=== PATIENT | female | born 1970 | race Hispanic/Latino ===

== ENCOUNTER 2017-08-02 13:57 | Inpatient (IN) | payer BC, SELFPAY ==
[2017-08-02] MEDS ORDERED: NA CHLORIDE 0.9% 1,000 ML ONE ×2 (15:51→17:16)
[2017-08-02] MEDS ORDERED: NA CHLORIDE 0.9% 250 ML ONE (15:51)
--- NOTE | 2017-08-02 16:30 | RAD REPORT ---
EXAM DESCRIPTION: Gustavo Single View08/02/2017 4:16 pm CLINICAL HISTORY: fever COMPARISON: May 2017 FINDINGS: The lungs appear clear of acute infiltrate. The heart is normal size IMPRESSION: No acute abnormalities displayed
[2017-08-02 16:52] LABS: Absolute Lymphocytes (CBC) 0.9 K/uL (0.7-4.9); Absolute Monocytes 0.8 K/uL (0.1-1.3); Absolute Neutrophil 5.8 K/uL (1.8-8.0); Basophils % 0.2 % (0-1.3); Eosinophils % 0.2 % (0-4.4); Hematocrit 38.8 % (36.0-45.0); Lymphocytes % 12.4 % (15.3-44.8); MCH 29.7 pg (27.0-35.0); MPV 7.9 fL (7.6-11.3); Monocytes % 10.1 % (3.3-12.3); RBC Red Blood Cell Count 4.41 M/uL (3.86-4.86)
[2017-08-02 16:55] LABS: Urine Blood 2+ (NEG); Urine Glucose 2+ (NEG); Urine Protein 1+ (NEG); Urine Specific Gravity 1.015 (1.005-1.030); Urine pH 5.5 (5.0-7.0)
[2017-08-02 16:56] LABS: Potassium 3.8 mEq/L (3.6-5.0)
[2017-08-02 17:04] LABS: Albumin 3.7 g/dL (3.2-5.5); Bilirubin Direct 0.1 mg/dL (0-0.2); Bilirubin Total 1.1 mg/dL (0.3-1.2); C-Reactive Protein 162.5 mg/L (<10.0); Protein, Total 7.7 g/dL (6.0-8.3)
[2017-08-02 17:05] LABS: Urine Bacteria >50 /HPF (<20); Urine Culture Reflex Order NOT NEEDED
[2017-08-02] MEDS ORDERED: ACETAMINOPHEN 500 MG TAB ONE (17:21)
[2017-08-02] MEDS ORDERED: CEFTRIAXONE/SWI 1gm 2 GM/20 ML SYR ONE (17:21)
--- NOTE | 2017-08-02 17:22 | EDPHYS ---
Physician Documentation [facility] Name: Alyson Mayfield Age: 47 yrs Sex: Female : 1970 Arrival Date: 08/02/2017 Time: 14:00 Bed 27 Private MD: Jeet Manley ED Physician Mick Gallardo HPI: 08/02 16:09 This 47 yrs old Female presents to ER via Ambulatory with complaints of jr8 Abdominal Pain, Back Pain, Arm Pain. 16:09 Onset: The symptoms/episode began/occurred gradually, 2 day(s) ago. The symptoms jr8 radiate to back. Associated signs and symptoms: Pertinent positives: constipation, fever, nausea, body aches and chills. The symptoms are described as intermittent. Modifying factors: The symptoms are alleviated by nothing, the symptoms are aggravated by nothing. Severity of pain: At its worst the pain was moderate in the emergency department the pain is unchanged. The patient has not experienced similar symptoms in the past. The patient has not recently seen a physician. Patient stated that she had gone to [place] over the weekend. While there started to have body aches, chills, fevers, abdominal discomfort. Has not gotten any better. Recent change in diabetic medication. Stated that she was upped to 500 BID of Metformin . 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 - Social history:: Smoking status: Patient/guardian denies using tobacco, Patient uses alcohol, but reports only rare drinking. - Ebola Screening: : No symptoms or risks identified at this time. ROS: 16:09 Eyes: Negative for injury, pain, redness, and discharge, ENT: Negative for injury, jr8 pain, and discharge, Neck: Negative for injury, pain, and swelling, Cardiovascular: Negative for chest pain, palpitations, and edema, Back: Negative for injury and pain, MS/Extremity: Negative for injury and deformity, Skin: Negative for injury, rash, and discoloration, Neuro: Negative for headache, weakness, numbness, tingling, and seizure. 16:09 Constitutional: Positive for body aches, chills, fever, malaise, poor PO intake. 16:09 Abdomen/GI: Positive for abdominal pain, nausea, constipation, abdominal cramps, Negative for hematemesis, black/tarry stool, rectal pain, rectal bleeding, bowel incontinence, flatulence. Exam: 16:09 Head/Face: Normocephalic, atraumatic. Eyes: Pupils equal round and reactive to light, jr8 extra-ocular motions intact. Lids and lashes normal. Conjunctiva and sclera are non-icteric and not injected. Cornea within normal limits. Periorbital areas with no swelling, redness, or edema. ENT: Nares patent. No nasal discharge, no septal abnormalities noted. Tympanic membranes are normal and external auditory canals are clear. Oropharynx with no redness, swelling, or masses, exudates, or evidence of obstruction, uvula midline. Mucous membranes moist. Neck: Trachea midline, no thyromegaly or masses palpated, and no cervical lymphadenopathy. Supple, full range of motion without nuchal rigidity, or vertebral point tenderness. No Meningismus. Respiratory: Lungs have equal breath sounds bilaterally, clear to auscultation and percussion. No rales, rhonchi or wheezes noted. No increased work of breathing, no retractions or nasal flaring. Back: No spinal tenderness. No costovertebral tenderness. Full range of motion. Skin: Warm, dry with normal turgor. Normal color with no rashes, no lesions, and no evidence of cellulitis. MS/ Extremity: Pulses equal, no cyanosis. Neurovascular intact. Full, normal range of motion. Neuro: Awake and alert, GCS 15, oriented to person, place, time, and situation. Cranial nerves II-XII grossly intact. Motor strength 5/5 in all extremities. Sensory grossly intact. Cerebellar exam normal. Normal gait. 16:09 Cardiovascular: Rate: tachycardic, Rhythm: regular, Pulses: Pulses are 2+ in right radial artery and left radial artery. Heart sounds: normal, normal S1and S2, no S3 or S4, no murmur, no rub, no gallop, Edema: is not appreciated, JVD: is not appreciated. 16:09 Abdomen/GI: Inspection: abdomen appears normal, Bowel sounds: active, all quadrants, Palpation: soft, in all quadrants, moderate abdominal tenderness, in the abdomen diffusely, mass, is not appreciated, rebound tenderness, is not appreciated, voluntary guarding, is not appreciated, involuntary guarding, is not appreciated, no appreciated organomegaly, Indicators: McBurney's point is not tender, Keys's sign is negative, Rovsing's sign is negative, Liver: no appreciated palpable abnormalities, tenderness, is not appreciated. Vital Signs: 14:11 BP 130 / 78; Pulse 109; Resp 20; Temp 99(TE); Pulse Ox 97% on R/A; Weight 58.97 kg (R); sv Height 5 ft. 2 in. (157.48 cm) (R); Pain 8/10; 17:03 BP 133 / 72; Pulse 103; Resp 20; Temp 101.4(O); Pulse Ox 100% on R/A; mb3 18:06 BP 132 / 79; Pulse 91; Resp 20; Temp 99.1(O); Pulse Ox 99% on R/A; mb3 19:46 BP 108 / 62; Pulse 87; Resp 18; Pulse Ox 96% on R/A; mb3 20:51 BP 117 / 70; Pulse 87; Resp 16; Temp 98.8(O); Pulse Ox 99% on R/A; mb3 14:11 Body Mass Index 23.78 (58.97 kg, 157.48 cm) sv MDM: 15:10 Patient medically screened. jr8 17:18 Data reviewed: vital signs, nurses notes, lab test result(s), EKG, radiologic studies, jr CT scan, plain films, and as a result, I will admit patient. Data interpreted: Pulse oximetry: on room air is 100 %. Interpretation: normal. Counseling: I had a detailed discussion with the patient and/or guardian regarding: the historical points, exam findings, and any diagnostic results supporting the discharge/admit diagnosis, lab results, radiology results, the need for further work-up and treatment in the hospital. Physician consultation: Gilbert Bautista MD was called at 17:19, was contacted at 17:19, regarding admission, to the telemetry unit. consult, patient's condition, and will see patient. ED course: Patient initially based on vitals did not meet sepsis. Patient now with fever and tachycardia. Source of infection identified as UTI. Elevated ESR and CRP. Meets SIRS and urosepsis. Will treat as such and admit . 08/02 15:05 Order name: Urine Culture formerly [facility] 08/02 15:05 Order name: Urine Microscopic Only formerly [facility] 08/02 15:06 Order name: Urine Culture [facility] 08/02 15:06 Order name: Urine Microscopic Only; Complete Time: 17:06 [facility] 08/02 15:39 Order name: Basic Metabolic Panel; Complete Time: 17:05 [facility] 08/02 15:39 Order name: Blood Culture Adult (2) [facility] 08/02 15:39 Order name: BNP; Complete Time: 17: [facility] 08/02 15:39 Order name: C-Reactive Protein; Complete Time: 17: [facility] 08/02 15:39 Order name: CBC with Diff; Complete Time: 17:11 [facility] 08/02 15:39 Order name: CPK; Complete Time: 17:05 [facility] 08/02 15:39 Order name: Lactate; Complete Time: 17: [facility] 08/02 15:39 Order name: LFT's; Complete Time: 17: [facility] 08/02 15:39 Order name: Lipase; Complete Time: 17: [facility] 08/02 15:39 Order name: Procalcitonin; Complete Time: 17:22 [facility] 08/02 15:05 Order name: Urine Dipstick-Ancillary (obtain specimen); Complete Time: 16:59 [facility] 08/02 15:39 Order name: Protime (+inr); Complete Time: 18:02 [facility] 08/02 15:39 Order name: Ptt, Activated; Complete Time: 18:02 [facility] 08/02 15:39 Order name: Sed Rate; Complete Time: 17:11 [facility] 08/02 15:39 Order name: Chest Single View XRAY; Complete Time: 16:30 [facility] 08/02 15:39 Order name: Accucheck [facility] 08/02 15:39 Order name: Cardiac monitoring; Complete Time: 16:57 [facility] 08/02 15:39 Order name: EKG - Nurse/Tech; Complete Time: 16:57 [facility] 08/02 15:39 Order name: IV Saline Lock - Large Bore; Complete Time: 16:58 08/02 15:39 Order name: [place] Screen Profile; Complete Time: 17:05 08/02 16:42 Order name: Urine Dipstick--Ancillary (enter results); Complete Time: 17:05 ag 08/02 16:42 Order name: Urine --Ancillary (enter results); Complete Time: 17:05 ag 08/02 17:06 Order name: CT Abd/Pelvis - W/Contrast; Complete Time: 18:02 08/02 15:39 Order name: Labs collected and sent; Complete Time: 16:58 08/02 15:39 Order name: O2 Per Protocol; Complete Time: 16:58 08/02 15:39 Order name: O2 Sat Monitoring; Complete Time: Administered Medications: 16:33 Drug: NS 0.9% (20 ml/kg) 20 ml/kg Route: IV; Rate: 1 bolus; Site: right antecubital; mb3 19:49 Follow up: Response: No adverse reaction; IV Status: Completed infusion; IV Intake: mb3 2000ml 17:30 Drug: Tylenol 1000 mg Route: PO; mb3 19:49 Follow up: Response: No adverse reaction; Temperature is decreased mb3 18:01 Drug: Rocephin - (cefTRIAXone) 2 grams Route: IVPB; Infused Over: 30 mins; Site: right mb3 antecubital; 19:48 Follow up: Response: No adverse reaction; IV Status: Completed infusion; IV Intake: mb3 100ml Disposition: 08/03 07:25 Co-signature as Attending Physician, Mick Gallardo MD I agree with the assessment and radu plan of care. Disposition: 08/02/17 17:22 Hospitalization ordered by Gilbert Bautista for Inpatient Admission. Preliminary diagnosis are Urosepsis, Dehydration, Acute tubulo-interstitial nephritis. - Bed requested for Telemetry/MedSurg (Inpatient). - Status is Inpatient Admission. mb3 - Condition is Stable. - Problem is new. - Symptoms have improved. UTI on Admission? Yes Signatures: Dispatcher [employer] Nicki Martinez RN RN sv Woody, Diana, RN RN dw Anderson, Corey, MD MD cha Therrien, Shelly, POST HOLE DIGGER-C POST HOLE DIGGER-Csnw Ethan Arenas PA PA jr8 Mendy Shah Zaki Lucas, RN RN mb3 Corrections: (The following items were deleted from the chart) 08/02 18:02 17:22 Hospitalization Ordered by Gilbert Bautista MD for Inpatient Admission. Preliminary jr8 diagnosis is Urosepsis; Dehydration. Bed requested for Telemetry/MedSurg (Inpatient). Status is Inpatient Admission. Condition is Stable. Problem is new. Symptoms have improved. UTI on Admission? Yes. jr8 19:49 18:02 08/02/2017 17:22 Hospitalization Ordered by Gilbert Bautista MD for Inpatient dw Admission. Preliminary diagnosis is Urosepsis; Dehydration; Acute tubulo-interstitial nephritis. Bed requested for Telemetry/MedSurg (Inpatient). Status is Inpatient Admission. Condition is Stable. Problem is new. Symptoms have improved. UTI on Admission? Yes. [facility] 19:50 19:49 08/02/2017 17:22 Hospitalization Ordered by Gilbert Bautista MD for Inpatient eb Admission. Preliminary diagnosis is Urosepsis; Dehydration; Acute tubulo-interstitial nephritis. Bed requested for Telemetry/MedSurg (Inpatient). Status is Inpatient Admission. Condition is Stable. Problem is new. Symptoms have improved. UTI on Admission? Yes. dw 21:38 19:50 08/02/2017 17:22 Hospitalization Ordered by Gilbert Bautista MD for Inpatient mb3 Admission. Preliminary diagnosis is Urosepsis; Dehydration; Acute tubulo-interstitial nephritis. Bed requested for Telemetry/MedSurg (Inpatient). Status is Inpatient Admission. Condition is Stable. Problem is new. Symptoms have improved. UTI on Admission? Yes. eb
--- NOTE | 2017-08-02 17:22 | ER ---
Nurse's Notes [facility] Name: Alyson Mayfield Age: 47 yrs Sex: Female : 1970 Arrival Date: 08/02/2017 Time: 14:00 Bed 27 Private MD: Jeet Manley Diagnosis: Urosepsis;Dehydration;Acute tubulo-interstitial nephritis Presentation: 08/02 14:06 Presenting complaint: Patient states: abd pain, back pain, bilateral arm numbness x 3 sv days. c/o nausea, body aches, no appetite. Recently changed up DM pills. Transition of care: patient was not received from another setting of care. Onset of symptoms was July 30, 2017. Care prior to arrival: None. 14:06 Method Of Arrival: Ambulatory sv 14:06 Acuity: KLAUS 3 sv 14:11 Risk Assessment: Do you want to hurt yourself or someone else? Patient reports no sv desire to harm self or others. Initial Sepsis Screen: Does the patient meet any 2 criteria? No. Patient's initial sepsis screen is negative. Does the patient have a suspected source of infection? No. Patient's initial sepsis screen is negative. 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 - Social history:: Smoking status: Patient/guardian denies using tobacco, Patient uses alcohol, but reports only rare drinking. - Ebola Screening: : No symptoms or risks identified at this time. Screenin:02 Abuse screen: Denies threats or abuse. Nutritional screening: No deficits noted. mb3 Tuberculosis screening: No symptoms or risk factors identified. Fall Risk None identified. Assessment: 17:00 General: Appears distressed, uncomfortable, well groomed, Behavior is calm, mb3 cooperative, appropriate for age. Pain: Complains of pain in abdomen, low back area, left low back and right low back. Neuro: Level of Consciousness is awake, alert, obeys commands, Oriented to person, place, time, situation, Appropriate for age. Cardiovascular: No deficits noted. Heart tones present Capillary refill < 3 seconds Patient's skin is warm and dry. Pulses are all present. Respiratory: Airway is patent Respiratory effort is even, unlabored, Respiratory pattern is regular, symmetrical, Breath sounds are clear bilaterally. GI: Bowel sounds present X 4 quads. Abd is soft Abdomen is tender to palpation in right lower quadrant and left lower quadrant. : Urine is cloudy. Musculoskeletal: No signs and/or symptoms reported regarding the musculoskeletal system. 19:47 Reassessment: Patient appears in no apparent distress at this time. No changes from mb3 previously documented assessment. Patient and/or family updated on plan of care and expected duration. Pain level reassessed. Patient is alert, oriented x 3, equal unlabored respirations, skin warm/dry/pink. Patient states feeling better. Patient states symptoms have improved. Vital Signs: 14:11 BP 130 / 78; Pulse 109; Resp 20; Temp 99(TE); Pulse Ox 97% on R/A; Weight 58.97 kg (R); sv Height 5 ft. 2 in. (157.48 cm) (R); Pain 8/10; 17:03 BP 133 / 72; Pulse 103; Resp 20; Temp 101.4(O); Pulse Ox 100% on R/A; mb3 18:06 BP 132 / 79; Pulse 91; Resp 20; Temp 99.1(O); Pulse Ox 99% on R/A; mb3 19:46 BP 108 / 62; Pulse 87; Resp 18; Pulse Ox 96% on R/A; mb3 20:51 BP 117 / 70; Pulse 87; Resp 16; Temp 98.8(O); Pulse Ox 99% on R/A; mb3 14:11 Body Mass Index 23.78 (58.97 kg, 157.48 cm) sv ED Course: 14:00 Patient arrived in ED. mr 14:00 None, None is Private Physician. mr 14:01 Jeet Manley is Private Physician. mr 14:09 Triage completed. sv 14:11 Arm band placed on left wrist. sv 15:10 Ethan Arenas PA is PHCP. jr8 15:10 Mick Gallardo MD is Attending Physician. jr8 15:12 LucasZaki weber RN is Primary Nurse. mb3 16:13 X-ray completed. Portable x-ray completed in exam room. Patient tolerated procedure kc2 well. 16:14 Chest Single View XRAY In Process Unspecified. EDMS 16:33 Inserted saline lock: 20 gauge in right antecubital area, using aseptic technique. mb3 Blood collected. 16:59 Urine Culture Sent. mb3 16:59 Urine Microscopic Only Sent. mb3 17:03 Patient has correct armband on for positive identification. Bed in low position. Call mb3 light in reach. Side rails up X 1. Pulse ox on. NIBP on. 17:21 Gilbert Bautista MD is Hospitalizing Provider. jr8 17:34 CT Abd/Pelvis - W/Contrast In Process Unspecified. EDMS 20:53 No provider procedures requiring assistance completed. Patient admitted, IV remains in mb3 place. Administered Medications: 16:33 Drug: NS 0.9% (20 ml/kg) 20 ml/kg Route: IV; Rate: 1 bolus; Site: right antecubital; mb3 19:49 Follow up: Response: No adverse reaction; IV Status: Completed infusion; IV Intake: mb3 2000ml 17:30 Drug: Tylenol 1000 mg Route: PO; mb3 19:49 Follow up: Response: No adverse reaction; Temperature is decreased mb3 18:01 Drug: Rocephin - (cefTRIAXone) 2 grams Route: IVPB; Infused Over: 30 mins; Site: right mb3 antecubital; 19:48 Follow up: Response: No adverse reaction; IV Status: Completed infusion; IV Intake: mb3 100ml Intake: 19:48 IV: 100ml; Total: 100ml. mb3 19:49 IV: 2000ml; Total: 2100ml. mb3 Outcome: 17:22 Decision to Hospitalize by Provider. jr8 20:52 Admitted to Tele accompanied by tech, via wheelchair, room 416, with chart, Report mb3 called to Nahomi RIVAS 20:52 Condition: stable 20:52 Instructed on the need for admit. 21:38 Patient left the ED. mb3 Signatures: Dispatcher [employer] EDNicki Chris RN RN sv Rivera, Maria mr Ethan Arenas, PA DAOMN jr8 Keyla Andrew kc2 Zaki Lucas RN RN mb3 Corrections: (The following items were deleted from the chart) 14:11 14:06 Presenting complaint: Patient states: abd pain, back pain, bilateral arm numbness sv x 3 days. c/o nausea, no appetite. Recently changed up DM pills. sv
[2017-08-02 17:33] LABS: Protime INR 0.97
--- NOTE | 2017-08-02 17:53 | RAD REPORT ---
EXAM DESCRIPTION: CT - Abdomen Pelvis W Contrast - 08/02/2017 5:34 pm CLINICAL HISTORY: Abdominal pain, back pain COMPARISON: May 2017 TECHNIQUE: Biphasic, helical CT imaging of the abdomen and pelvis was performed following 100 ml non -ionic IV contrast. No oral contrast. All CT scans are performed using dose optimization technique as appropriate and may include automated exposure control or mA/KV adjustment according to patient size. FINDINGS: No suspicious findings in the lung bases. The liver, spleen, and pancreas show no suspicious findings. Cholecystectomy clips are present. No ab normal biliary tree dilatation. Right renal parenchymal enhancement is somewhat heterogeneous. Right renal function is delayed slight ly relative to the left. There is no left-sided hydronephrosis. The mild left-sided dilatation with w all thickening and enhancement has resolved. Right-sided dilatation with wall thickening and mild enh ancement has not changed. There remains no obstructing calculus. No gross evidence for a mass. No myrna dder calculus seen. Lepe of the contracted urinary bladder mildly prominent, similar to prior imagin g. Uterus and ovaries are unremarkable. No gastric dilatation or true gastric wall thickening. No dilated large or small bowel loops. Cecum i s low lying. Appendicitis not suspected. No free air or free fluid. No hernia, mass or bulky lympha denopathy. No adrenal abnormality. No suspicious bony findings. IMPRESSION: Right-sided [id number] hydronephrosis similar to the May examination. Right citlali al function is delayed in the enhancement pattern is heterogeneous. Finding is concerning for right-sided pyelonephritis. The dilatation could be due to blood or inflamm atory debris within the ureter. No obstructing calculus. Urinary bladder wall is slightly thickened and enhancing. This could indicate cystitis.
[2017-08-02] MEDS ORDERED: D50W 25 GM/50 ML SYRINGE IV PRN (18:07)
[2017-08-02] MEDS ORDERED: GLUCAGON 1 MG/VIAL IM PRN (18:07)
[2017-08-02 21:36] VITALS: BMI 22.9
[2017-08-02] MEDS ORDERED: PANTOPRAZOLE 40MG TABLET PO ONE (21:51)
[2017-08-02] MEDS: ONDANSETRON 4 MG/2 ML VIAL IV PRN (22:22)
[2017-08-02] MEDS: NA CHLORIDE 0.9% 1,000 ML IV SCH (22:23)
[2017-08-02] MEDS: ENOXAPARIN 40 MG/0.4 ML SQ SCH (22:23)
[2017-08-02] MEDS: INSULIN -REGULAR HUMAN 50 UNIT/0.5 ML ML SQ SCH (22:24)
[2017-08-02] MEDS: KETOROLAC 30 MG/ML INJ IV PRN (22:36)
[2017-08-03] MEDS: NA CHLORIDE 0.9% 1,000 ML IV SCH ×3 (02:00→17:54)
[2017-08-03 04:38] LABS: Absolute Lymphocytes (CBC) 0.9 K/uL (0.7-4.9); Absolute Monocytes 0.7 K/uL (0.1-1.3); Absolute Neutrophil 5.5 K/uL (1.8-8.0); Basophils % 0.2 % (0-1.3); Eosinophils % 0.1 % (0-4.4); Hematocrit 32.2 % (36.0-45.0); MCH 30.5 pg (27.0-35.0); MCV 87.8 fL (80-100); MPV 8.3 fL (7.6-11.3); Monocytes % 9.7 % (3.3-12.3); RBC Red Blood Cell Count 3.67 M/uL (3.86-4.86)
[2017-08-03 04:57] LABS: Albumin 2.8 g/dL (3.2-5.5); Bilirubin Total 0.9 mg/dL (0.3-1.2); Protein, Total 6.1 g/dL (6.0-8.3)
--- NOTE | 2017-08-03 05:55 | HP ---
Date of Admission: 08/02/2017 Primary Care Physician: Dr. Manley. Chief complaint: Abdominal pain History Of Present Illness: The patient is a 47-year-old female with past medical history of diabetes, who was in her usual state of health until day of admission when the patient had sudden onset of nausea, vomiting, abdominal pain which is generalized. Also reported some generalized weakness. Denied any dysuria or hematuria. No urinary frequency. The patient came in for further evaluation of her progressively worsening symptoms. Also reported some abdominal pain that radiated to the back. Upon arrival, her vital signs showed sinus tachycardia. Her workup revealed normal white count with left shift. Her C-reactive protein was 152. Lactate and procalcitonin were normal. Her UA was positive, showed ketones, nitrites, 150 wbc's, and greater than 50 bacteria. The patient was given IV fluid bolus and IV antibiotics and referred for admission. When seen in the ER, the patient was awake, alert, oriented x3, in some mild distress, nauseated. Past Medical History: Diabetes mellitus type 2, non-insulin requiring. Surgical History: Cholecystectomy. Allergies: TO HYDROCODONE AND TRAMADOL CAUSES ITCHING. Medications: The patient takes metformin 1 g b.i.d. Social History: The patient is . Denies any tobacco use. Does drink alcohol on rare occasions. No illicit drug use. Family History: Positive for stomach cancer, ovarian cancer, and pancreatic cancer. Review of Systems: An 11-point system reviewed, negative except as per HPI. Physical Examination: Vital Signs: Blood pressure 130/78, pulse 109, respirations 20, temperature 99 , O2 97% on room air. General: Awake, alert, oriented x3, in some mild distress, ill-appearing female. HEENT: Normocephalic, atraumatic. PERRLA. EOMI. Dry mucous membranes. Oropharynx is clear. Normal dentition. Conjunctivae anicteric. Neck: Supple. No JVD. Trachea midline. CV: S1, S2. Sinus tachycardia. No murmurs. Peripheral pulses present. Respiratory: Clear to auscultation bilaterally. No wheezing. No stridor. No use of accessory muscles. Gastrointestinal: Abdomen is soft. Tenderness to palpation in the epigastric region. No rebound or guarding. No palpable masses. No hepatomegaly. Bowel sounds are positive. Extremities: No clubbing, cyanosis, or edema. No calf tenderness. Neuro: Cranial nerves 2 through 12 intact grossly, 5/5 strength bilateral upper and lower extremities. Sensation intact to light touch. Speech is normal. Skin: No rashes. Normal skin turgor. Psych: Mood is okay. Affect is full. Insight and judgment are good. Laboratory Data: UA shows 4+ ketones, 2+ blood, positive nitrite, 1+ leukocyte esterase, 10-20 rbc's, 20-50 wbc's, greater than 50 urine bacteria, 1+ protein. Urine test is negative. Sodium 133, potassium 3.8, chloride 96, CO2 21, BUN 13, creatinine 0.8, glucose 294, lactate 10.8, calcium 9.2, total bilirubin 1.1, AST 18, ALT 26, alk phosphatase 156, CK 15, CRP 162. BNP 38. Albumin 3.7, lipase 23, procalcitonin 0.38, INR 0.97. WBC 7.6, H and H 13.1 and 38.8, platelets 399, neutrophils 77%. [place] screen is negative. Chest x- ray shows no acute abnormalities, personally reviewed. CT scan of the abdomen shows right-sided [id number] hydronephrosis similar to March examination. Right renal function is pattern is heterogeneous. Finding concerning for right-sided pyelonephritis. could be due to blood or inflammatory debris within the ureter. No obstructing calculus. Urinary bladder wall is slightly thickened and enhancing, indicating cystitis. Assessment: A 47-year-old female with, 1. Systemic inflammatory response syndrome. The patient is tachycardic, has left shift. CRP is elevated. Source of infection is urinary tract infection, pyelonephritis, rule out sepsis. We will continue with IV fluid bolus and continue maintenance fluids. 2. Pyelonephritis. CT shows right-sided pyelonephritis with hydronephrosis, which is acute on chronic, has been similar since May. No biliary tree dilation. We will continue with IV antibiotics. Follow up on urine cultures. 3. Diabetes mellitus type 2 without long-term use of insulin with hyperglycemia. We will check hemoglobin A1c. We will place her on sliding scale insulin. 4. Hyponatremia. We will continue with IV fluids and monitor. 5. Gastrointestinal and deep venous thrombosis prophylaxis with PPI and Lovenox. Plan: Admit the patient to Med Surg, place as inpatient. We will obtain urology consultation to rule out any sort of ureterovesicular abnormalities or obstruction given the patient's chronic hydronephrosis. KING Voice ID: [id number]
[2017-08-03] MEDS ORDERED: MAGNESIUM SULFATE 1 gm IVPB 1 GM/100 ML BAG IV ONE (06:27)
[2017-08-03] MEDS: ACETAMINOPHEN 500 MG TAB PO PRN ×3 (06:32→20:19)
[2017-08-03] MEDS: ONDANSETRON 4 MG/2 ML VIAL IV PRN ×2 (06:53→15:20)
[2017-08-03] MEDS: KETOROLAC 30 MG/ML INJ IV PRN ×2 (07:20→20:20)
[2017-08-03] MEDS: ENOXAPARIN 40 MG/0.4 ML SQ SCH (08:40)
[2017-08-03] MEDS: CEFTRIAXONE/SWI 1gm 1 GM/10 ML SYR IV SCH (08:41)
[2017-08-03] MEDS: INSULIN -REGULAR HUMAN 50 UNIT/0.5 ML ML SQ SCH ×4 (08:41→20:22)
--- NOTE | 2017-08-03 17:25 | PN ---
Date of Progress Note: 08/03/2017 Subjective: The patient is seen and examined, chart reviewed, and case discussed with RN. The patie nt states her pain is slightly better. Still somewhat nauseated, did not eat much of her diet. Review of Systems: Negative except as above. Medications: Reviewed. Objective: Vital Signs: Temperature 98.6, T-max 101.4 yesterday at 5:00, blood pressure 103/55, res pirations 16, O2 96% on room air, and pulse 89. General: Awake, alert, oriented x3, in some mild distress, ill-appearing female. CV: S1, S2. No murmurs. Regular rate and rhythm. Peripheral pulses present. Respiratory: clear to auscultation bilaterally. No wheezing. No stridor. No use of accessory musc les Gastrointestinal: Abdomen is soft. Mild tenderness to palpation. Nondistended. Positive bowel sounds. Extremities: No clubbing, cyanosis, edema. Neurologic: Nonfocal. Laboratory Data: Sodium 136, potassium 4, chloride 105, CO2 22, BUN 14, creatinine 0.73, glucose 291 , calcium 8.1, magnesium 1.7, and albumin 2.8. WBC 7.1, H and H 11.2, 32.2, platelets 240, and neutr ophils 77%. Urine culture growing 4+ gram-negative rods. Blood culture gram-negative rods. Assessment: A 47-year-old female with; 1.Sepsis secondary to gram-negative lisa bacteremia and pyelonephritis. Continue IV fluid resuscitat ion and IV antibiotics. 2.Gram-negative bacteremia. We will continue with IV antibiotics. Await ID and sensitivity. 3.Pyelonephritis. Continue antibiotics and IV fluids. Follow up on urine culture. Dr. Hendersons has been consulted for chronic hydronephrosis. 4.Diabetes mellitus type 2 without long-term use of insulin with hyperglycemia. Check hemoglobin A1 c. Continue Accu-Cheks. Continue sliding scale insulin. 5.Hyponatremia, improved. We will continue to monitor. 6.Protein-calorie malnutrition. Albumin 2.8. 7.Hypomagnesemia. We will replace and monitor. 8.Gastrointestinal and deep venous thrombosis prophylaxis with PPI and Lovenox. Plan: Follow up with Neurology recommendations and ID and sensitivity. KING Voice ID: [id number] Report ID: [id number]
--- NOTE | 2017-08-03 20:10 | CON ---
History Of Present Illness: This is a pleasant 47-year-old female with history of diabetes. She has had 2 UTIs in the last 2 months. She had antibiotics previous one by Dr. Manley, her primary care. She normally voids about 4 times per day; however, in the night she has been voiding every 2 hours. She is not sure why this is happening. She has some incomplete emptying. She has some urgency and mild stress incontinence. She wears a pad throughout the day. Force of stream is good. No hematuria. She does have postvoid dribbling and which is suspicious for incomplete emptying of the bladder. She had a CT scan showing hydronephrosis on the right ureter down to the bladder. Bladder looks like it was full. Some suspicious for diabetic insensate bladder with incomplete emptying and UTI. I have encouraged her to void every 4 hours on the time of voiding. Her urine culture is growing 10 to 5th colonies per mL also. Her PVR was 90 cc. Past Medical History: Diabetes type 2. Surgical History: Cholecystectomy. Allergies: TO HYDROCODONE AND TRAMADOL CAUSES ITCHING. Medications: Metformin 1 g b.i.d. Social History: . Denies tobacco use. Does some alcohol on rare occasions. No illicit drug use. Family History: Positive for stomach cancer, ovarian cancer, pancreatic cancer. Review of Systems: 11-point review of systems is negative. Physical Examination: Vital Signs: The patient was afebrile, stable. Related vital signs, temperature 98.6, pulse 89, respirations 16, BP 103/55, sats 96%. HEENT: Atraumatic, normocephalic. Lungs: Clear. Heart: S1, S2. Abdomen: Soft, nontender. Extremities: Normal range of motion. Laboratory Data: White count 7.1, H and H 11.2 and 32.2, platelet count 240. Coagulation normal. Chemistry shows sodium 136, potassium 4.0, chloride 105, carbon dioxide 22, BUN 14, creatinine 0.7, GFR 85, glucose 291. Urine shows 4+ ketones. Blood 2+, nitrite positive, leukocyte esterase 1+. Assessment: Urinary tract infection positive, possible diabetic insensate bladder. She needs a postvoid residual check, 90 ccs. If it is high, she will need to learn how to empty her bladder either right time voiding versus clean intermittent catheterization. She may need possible cystoscopy and retrograde possible stent. Thank you very much. Will Follow up patient with you. CHUNG/WOOD Voice ID: [id number] Report ID: [id number] MTDD
[2017-08-03] MEDS ORDERED: TAMSULOSIN 0.4 MG SR CAP PO SCH (21:00)
[2017-08-04] MEDS: NA CHLORIDE 0.9% 1,000 ML IV SCH ×2 (03:21→10:00)
[2017-08-04] MEDS: ACETAMINOPHEN 500 MG TAB PO PRN (03:22)
[2017-08-04] MEDS: KETOROLAC 30 MG/ML INJ IV PRN (04:48)
[2017-08-04 05:57] LABS: Absolute Lymphocytes (CBC) 0.7 K/uL (0.7-4.9); Absolute Monocytes 0.5 K/uL (0.1-1.3); Absolute Neutrophil 4.3 K/uL (1.8-8.0); Basophils % 0.2 % (0-1.3); Eosinophils % 0.2 % (0-4.4); Hematocrit 33.5 % (36.0-45.0); Lymphocytes % 12.5 % (15.3-44.8); MCH 29.5 pg (27.0-35.0); MCV 88.6 fL (80-100); MPV 7.9 fL (7.6-11.3); Monocytes % 9.7 % (3.3-12.3); RBC Red Blood Cell Count 3.79 M/uL (3.86-4.86)
[2017-08-04] MEDS ORDERED: THYROID 30 MG TAB PO SCH (06:00)
[2017-08-04 06:22] LABS: Albumin 2.4 g/dL (3.2-5.5); Bilirubin Total 1.1 mg/dL (0.3-1.2); Magnesium 1.8 mg/dL (1.8-2.5); Potassium 3.4 mEq/L (3.6-5.0); Protein, Total 5.3 g/dL (6.0-8.3)
[2017-08-04] MEDS ORDERED: MAGNESIUM SULFATE 1 gm IVPB 1 GM/100 ML BAG IV ONE (06:40)
[2017-08-04] MEDS: INSULIN -REGULAR HUMAN 50 UNIT/0.5 ML ML SQ SCH ×2 (07:30→11:30)
[2017-08-04] MEDS: ENOXAPARIN 40 MG/0.4 ML SQ SCH (09:00)
[2017-08-04] MEDS ORDERED: HYDROCODONE/APAP 5/325 MG TAB PO PRN (10:45)
[2017-08-04] MEDS: CEFTRIAXONE/SWI 1gm 1 GM/10 ML SYR IV SCH (11:06)
--- NOTE | 2017-08-04 11:38 | PN ---
Date of Progress Note: 08/04/2017 Subjective: The patient seen and examined, chart reviewed and case discussed with RN. The patient i s going for cystoscopy by Dr. Liu this morning. The patient otherwise states that she is feeling t ired. Still has a headache. Review of Systems: Negative except as above. Medications: Reviewed. Objective: Vital Signs: Temperature 97.7, heart rate 70, blood pressure 106/60, respirations 16, an d O2 97% on room air. General: Awake, alert, oriented x3, in some mild distress, ill-appearing female. CV: S1, S2. No murmurs. Regular rate and rhythm. Peripheral pulses present. Respiratory: Clear to auscultation bilaterally. No wheezing. Gastrointestinal: Abdomen is soft. Mild tenderness to palpation. No rebound or guarding. Bowel so unds positive. Extremities: No clubbing, cyanosis, edema. Neurologic: Nonfocal. Laboratory Data: Sodium 134, potassium 3.4, chloride 104, CO2 17, BUN 12, creatinine 0.71, glucose 3 13, calcium 7.9, magnesium 1.8, AST 114, ALT 89, alkaline phosphatase 271, and albumin 2.4. WBC 5.5, H and H 11.2, 33.5, platelets 262, and neutrophils 77%. Urine cultures growing E coli, which is barraza sensitive. Blood cultures growing gram-negative rods. ID and sensitivity pending. Assessment And Plan: A 47-year-old female with; 1.Sepsis secondary to pyelonephritis and gram-negative bacteremia, improving. We will continue with IV antibiotics. Follow up on final ID and sensitivity. 2.Gram-negative lisa bacteremia. We will continue Rocephin. Follow up on ID and sensitivity. 3.Acute pyelonephritis secondary to Escherichia coli. Sensitivities noted. We will continue Roceph in. The patient is going for cystoscopy due to chronic hydronephrosis and dilated ureter. 4.Headache. We will increase the pain medication, likely migraine. 5.Diabetes mellitus type 2 without long-term use of insulin with hyperglycemia. Hemoglobin A1c is p ending, uncontrolled. We will continue sliding scale insulin. Continue Accu-Cheks. 6.Hyponatremia, improving. 7.Hypokalemia. We will replace and monitor. 8.Severe protein-calorie malnutrition. Albumin is 2.4. 9.Elevated liver enzymes, likely secondary to sepsis. We will continue to monitor and trend. 10.Gastrointestinal and deep venous thrombosis prophylaxis with PPI and SCDs. We will hold Lovenox due to procedure. /WOOD Voice ID: [id number] Report ID: [id number]
[2017-08-04] MEDS ORDERED: PROPOFOL 200 MG/20 ML VIAL IV ONE (11:59)
[2017-08-04] MEDS ORDERED: MIDAZOLAM HCL 2 MG/2 ML INJ ONE (11:59)
[2017-08-04] MEDS ORDERED: POTASSIUM 25 MEQ EFFERV TAB PO ONE (12:00)
[2017-08-04] MEDS ORDERED: FENTANYL CITR 100 MCG/2 ML ONE (12:00)
[2017-08-04] MEDS ORDERED: ONDANSETRON HCL 40 MG/20 ML VIAL ONE (12:00)
[2017-08-04 13:32] VITALS: O2SAT 96
--- NOTE | 2017-08-04 14:15 | RAD REPORT ---
EXAM DESCRIPTION: RAD - Urethrocystogrphy Retrograde - 08/04/2017 1:04 pm CLINICAL HISTORY: Abdominal pain. FINDINGS: A right retrograde pyelogram was performed. The exam was done by Dr. Liu. The right uret er has been cannulated and contrast administered. Please refer to Dr. Liu's report for additional findings.
[2017-08-04 15:51] VITALS: BP 144/88; TEMP 97.8
--- NOTE | 2017-08-04 16:50 | DS ---
Date of Discharge: 08/04/2017 Consultants: Dr. Liu. Procedures: Urethrocystography on 08/04/2017. No intervention. Admitting Diagnoses: 1. Sepsis. 2. Acute pyelonephritis. 3. Diabetes mellitus type 2 with long-term use of insulin with hyperglycemia, uncontrolled. 4. Hyponatremia. Discharge Diagnoses: 1. Sepsis. 2. Gram-negative bacteremia. 3. Acute pyelonephritis secondary to Escherichia coli. 4. Headache, improving, likely caffeine withdrawal headache. 5. Diabetes mellitus type 2 without long-term use of insulin with hyperglycemia, uncontrolled. 6. Hyponatremia, improving. 7. Hypokalemia, replace and monitor. 8. Severe protein-calorie malnutrition. Albumin 2.4. 9. Elevated liver enzymes, likely secondary to sepsis. Hospital Course: The patient is a 47-year-old female with uncontrolled diabetes , comes in with abdominal pain, nausea, and vomiting. The patient was found to have acute pyelonephritis. CT scan showed some chronic hydronephrosis. The patient was started on IV antibiotics, sepsis bundle, IV fluids. The patient was seen by Dr. Liu for cystography due to her chronic dilatation of her ureter and hydronephrosis. No obstruction was seen. It was thought to be due to possible urinary retention or neurogenic bladder due to her diabetes. The patient was started on Flomax; however, she did not notice any significant difference. Postvoid residual was done, which was low. Alvarez catheter was placed as well. The patient was able to urinate on her own. She did well with antibiotics. Her white count normalized. Her sepsis was resolved. Her blood cultures grew out gram-negative rods, likely E. coli. Urine cultures also showed E. coli, which were pansensitive. The patient was afebrile. She did complain of some mild headache. No associated red flag symptoms. She did report some blurry vision; however, she wears glasses, however, at this time is not wearing glasses. She said she only wears glasses at night for driving. No changes in her vision from previous. No neurological symptoms. The patient does drink significant amount of caffeine and likely has caffeine withdrawal headaches. [place] did not help with the pain. The patient otherwise was doing well. She was able to ambulate, tolerate her diet. No longer having any nausea or vomiting. She was cleared for discharge from Dr. Liu's standpoint. The patient was overly concerned with possibility of pancreatic cancer as her mother had a pancreatic cancer, which was not diagnosed till late, which is usual case for pancreatic cancer as it does not show many symptoms until very late stages. I explained to the patient that her CT scan of the abdomen and pelvis did not show any suspicious lesions or masses on her pancreas; however, that is not 100% definitive. The patient's lipase was normal. The patient did have some mild elevation of her liver enzymes, which was thought to be due to the sepsis. The patient was instructed to have repeat LFTs in 1 week. I encouraged her to follow up with the GI doctor to have further workup regarding her concern for possible pancreatic cancer as she has a strong family history. I explained to her that she would have other concerning symptoms such as jaundice, elevated bilirubin, some form of obstruction in her GI tract, pain or abnormalities found on imaging. However, given her negative symptoms, lack of lab abnormalities, and no suspicious process seen on imaging; I explained to her that at her age, she is very doubtful to have any sort of pancreatic cancer. Again, this is not 100%. She is encouraged to follow up with her primary care physician and establish care with a GI doctor for further evaluation and continued monitoring due to her family history. The patient was then discharged home in a stable condition. Activity: No driving or operating heavy machinery while on narcotics. Medications: As per medication reconciliation list. Total time spent discharging the patient was 45 minutes. Followup: Follow up with primary care physician in 2-3 days. Follow up with urologist, Dr. Liu in 4 weeks. Follow up with GI in 4-6 weeks, have LFTs repeated in 1 week. Return to ER for worsening condition. Physical Examination: For physical exam findings, please see this progress note dictated on day of discharge. Diet: Diabetic. The patient was counseled on her diabetes, which is very uncontrolled. Hemoglobin at this time is pending. She will need to titrate her metformin up to 1 g b.i.d. She is currently taking 500 mg twice a day, which is not nearly enough. The patient will need A1c recheck in about 3 months and have primary care physician to titrate her diabetic medications. /WOOD Voice ID: [id number] Report ID: [id number] MTDD
[2017-08-08 18:01] LABS: A1c Component 1.44 mg/dL
[2017-08-08 18:28] LABS: Hemoglobin A1c 15.3 % (4-6.0)
== END 2017-08-04 16:07 | disposition home or self-care (01) | DRG 871 ==
LOC: ER 13:57 → ERHOLD 17:22 → 4TH 19:54
PROVIDERS: ADMIT Physician Assistant; ATTEND Family Medicine
PROC: 0TJ98ZZ Inspection of Ureter, Via Natural or Artificial Opening Endoscopic (ICD-10-PCS; 2017-08-04)
PROC: BT1DZZZ Fluoroscopy of Right Kidney, Ureter and Bladder (ICD-10-PCS; principal; 2017-08-04 12:00)
DX: A41.51 Sepsis due to Escherichia coli [E. coli] (principal); E43 Unspecified severe protein-calorie malnutrition; N10 Acute pyelonephritis; E87.1 Hypo-osmolality and hyponatremia; N13.30 Unspecified hydronephrosis; B96.20 Unspecified Escherichia coli [E. coli] as the cause of diseases classified elsewhere; R51 Headache; E11.65 Type 2 diabetes mellitus with hyperglycemia; E87.6 Hypokalemia; Z68.23 Body mass index [BMI] 23.0-23.9, adult; R94.5 Abnormal results of liver function studies
CPT/HCPCS: 36415; 51610; 71045; 74177; 74450; 80048; 80053; 80076; 81003; 81015; 81025; 82550; 82962; 83036; 83605; 83690; 83735; 83880; 84145; 85025; 85610; 85652; 85730; 86140; 86308; 87040; 87077; 87086; 87088; 87186; 87205; 94760; 96361; 96365; 96366; 99285; J0696; J1650; J2250; J2405; J3010; J3475; J7030; Q9967

== ENCOUNTER 2017-08-18 23:27 | Emergency (ER) | payer BC ==
--- NOTE | 2017-08-19 00:54 | EDPHYS ---
Physician Documentation [facility] Name: Alyson Mayfield Age: 47 yrs Sex: Female : 1970 Arrival Date: 08/18/2017 Time: 23:28 Bed 7 Private MD: Jeet Manley ED Physician Mick Gallardo HPI: 08/19 00:38 This 47 yrs old Female presents to ER via Ambulatory with complaints of Insect cp Bite. 00:38 the patient presents with a swollen area of the posterior lower neck. cp 00:38 Description: swollen. Onset: The symptoms/episode began/occurred gradually, and became cp worse today. Possible cause(s): insect sting. Associated signs and symptoms: Pertinent negatives: discharge, drainage, fever, vomiting, chills. Severity of symptoms: in the emergency department the symptoms are unchanged, despite home interventions. Patient reports she is currently taking oral cipro for history of urosepsis. VALIDATION ARCHITECT: 08/18 23:42 LMP N/A - Post-menopause ak1 Historical: - Allergies: 23:46 Tramadol HCl; ak1 - Home Meds: 23:46 Thyroid Med [Active]; metformin 500 mg oral TG24 3 times daily for Type 2 Diabetes ak1 Mellitus [Active]; Magnesium Oxide Oral daily [Active]; Bentyl Oral [Active]; - PMHx: 23:46 Diabetes - NIDDM; ak1 - PSHx: 23:46 Tubal ligation; Cholecystectomy; ; Lithotripsy; ak1 - Immunization history:: Adult Immunizations unknown. - Social history:: Smoking status: Patient/guardian denies using tobacco. - Ebola Screening: : No symptoms or risks identified at this time. ROS: 08/19 00:42 Constitutional: Negative for body aches, chills, fever, poor PO intake. cp 00:42 Eyes: Negative for injury, pain, redness, and discharge. cp 00:42 Cardiovascular: Negative for chest pain, edema, palpitations. 00:42 Respiratory: Negative for cough, shortness of breath, wheezing. 00:42 Abdomen/GI: Negative for abdominal pain, nausea, vomiting, and diarrhea. 00:42 Skin: Positive for swelling, of the posterior lower neck, pain. 00:42 Neuro: Negative for altered mental status, headache, weakness. 00:42 All other systems are negative. Exam: 00:45 Constitutional: The patient appears in no acute distress, alert, awake, non-toxic, well cp developed, well nourished, uncomfortable. 00:45 Head/Face: Normocephalic, atraumatic. cp 00:45 Eyes: Periorbital structures: appear normal, Conjunctiva: normal, no exudate, no injection, Lids and lashes: appear normal, bilaterally. 00:45 ENT: External ear(s): are unremarkable, Ear canal(s): are normal, clear, TM's: bulging, is not appreciated, bilaterally, dullness, bilaterally, erythema, is not appreciated, bilaterally, Nose: is normal, Mouth: Lips: moist, Oral mucosa: moist, Posterior pharynx: is normal, airway is patent, no erythema, no exudate. 00:45 Neck: External neck: erythema, that is mild, of the lower cervical area, swelling, that is mild, of the lower cervical area, tenderness, that is moderate, of the lower cervical area, ROM/movement: is normal, no range of motions limitations, no meningismus, no nuchal rigidity. 00:45 Chest/axilla: Inspection: normal, Palpation: is normal, no crepitus, no tenderness. 00:45 Cardiovascular: Rate: normal, Rhythm: regular, Edema: is not appreciated, JVD: is not appreciated. 00:45 Respiratory: the patient does not display signs of respiratory distress, Respirations: normal, no use of accessory muscles, no retractions, no splinting, no tachypnea, Breath sounds: are clear throughout, no decreased breath sounds, no stridor, no wheezing. 00:45 Abdomen/GI: Exam negative for discomfort, distension, guarding, Inspection: abdomen appears normal. 00:45 Skin: abscess, not appreciated, cellulitis, that is mild, irregular, on the posterior lower neck. 00:45 Neuro: Orientation: to person, place \T\ time. Mentation: lucid, able to follow commands, Motor: moves all fours, strength is normal, Sensation: no obvious gross deficits, Gait: is steady. Vital Signs: 08/18 23:42 BP 158 / 91; Pulse 85; Resp 18; Temp 98.0(O); Pulse Ox 100% on R/A; Weight 56.7 kg (R); ak1 Height 5 ft. 2 in. (157.48 cm) (R); Pain 8/10; 23:42 Body Mass Index 22.86 (56.70 kg, 157.48 cm) ak1 MDM: 23:57 Patient medically screened. [facility] 08/19 00:50 Differential diagnosis: abscess, cellulitis, insect bite. cp 00:54 Data reviewed: vital signs, nurses notes. cp 00:54 Counseling: I had a detailed discussion with the patient and/or guardian regarding: the cp historical points, exam findings, and any diagnostic results supporting the discharge/admit diagnosis, the need for outpatient follow up, a family practitioner, to return to the emergency department if symptoms worsen or persist or if there are any questions or concerns that arise at home. Administered Medications: 00:58 Drug: Bactrim (160 mg-800 mg (DS) 1 tablet Route: PO; ak1 01:01 Follow up: Response: No adverse reaction ak1 Disposition: 06:04 Co-signature as Attending Physician, Mick Gallardo MD I agree with the assessment and [facility] plan of care. Disposition: 08/19/17 00:54 Discharged to Home. Impression: Insect bite of unspecified part of neck - Posterior, Infected. - Condition is Stable. - Discharge Instructions: Insect Bite, Cellulitis. - Prescriptions for Tylenol- Codeine #3 300-30 mg Oral Tablet - take 2 tablets by ORAL route every 6 hours As needed; 10 tablet. Bactrim DS 800- 160 mg Oral Tablet - take 1 tablet by ORAL route every 12 hours for 10 days; 20 tablet. - Medication Reconciliation Form, Thank You Letter, Antibiotic Education, Prescription Opioid Use form. - Follow up: Private Physician; When: 48 Hours; Reason: Recheck today's complaints. - Problem is new. - Symptoms are unchanged. Signatures: Mick Gallardo MD MD cha Krenek, Amber RN RN ak1 Mick Taylor PA PA cp Corrections: (The following items were deleted from the chart) 00:57 00:54 08/19/2017 00:54 Discharged to Home. Impression: Cellulitis of neck - Posterior. cp Condition is Stable. Forms are Medication Reconciliation Form, Thank You Letter, Antibiotic Education, Prescription Opioid Use. Follow up: Private Physician; When: 48 Hours; Reason: Recheck today's complaints. Problem is new. Symptoms are unchanged. cp 01:03 00:57 08/19/2017 00:54 Discharged to Home. Impression: Insect bite of unspecified part ak1 of neck - Posterior, Infected. Condition is Stable. Discharge Instructions: Cellulitis. Prescriptions for Tylenol-Codeine #3 300-30 mg Oral Tablet - take 2 tablets by ORAL route every 6 hours As needed; 10 tablet, Bactrim DS 800-160 mg Oral Tablet - take 1 tablet by ORAL route every 12 hours for 10 days; 20 tablet. and Forms are Medication Reconciliation Form, Thank You Letter, Antibiotic Education, Prescription Opioid Use. Follow up: Private Physician; When: 48 Hours; Reason: Recheck today's complaints. Problem is new. Symptoms are unchanged. cp
--- NOTE | 2017-08-19 00:54 | ER ---
Nurse's Notes [facility] Name: Alyson Mayfield Age: 47 yrs Sex: Female : 1970 Arrival Date: 08/18/2017 Time: 23:28 Bed 7 Private MD: Jeet Manley Diagnosis: Insect bite of unspecified part of neck-Posterior, Infected Presentation: 08/18 23:43 Presenting complaint: Patient states: insect bite to back of neck. no redness noted, ak1 wound is scabbed over. no drainage noted. pt already on Cipro from previous hospital visit. Transition of care: patient was not received from another setting of care. Onset of symptoms is unknown. Risk Assessment: Do you want to hurt yourself or someone else? Patient reports no desire to harm self or others. Initial Sepsis Screen: Does the patient meet any 2 criteria? No. Patient's initial sepsis screen is negative. Does the patient have a suspected source of infection? No. Patient's initial sepsis screen is negative. Care prior to arrival: pt currently on Cipro from previous hospital stay. 23:43 Acuity: KLAUS 4 ak1 23:43 Method Of Arrival: Ambulatory ak1 Triage Assessment: 23:46 Bite description: bite sustained to base of the skull is from insect was sustained ak1 unknown by an unknown animal, animal information: vaccination(s) is not applicable. General: Appears in no apparent distress. Behavior is calm, cooperative. Pain: Complains of pain in base of the skull. EENT: No signs and/or symptoms were reported regarding the EENT system. Neuro: No deficits noted. Cardiovascular: No deficits noted. Respiratory: No deficits noted. GI: No signs and/or symptoms were reported involving the gastrointestinal system. : No signs and/or symptoms were reported regarding the genitourinary system. Derm: Wound noted base of the skull Reports pain that is 8 out of 10 on a pain scale. Musculoskeletal: No signs and/or symptoms reported regarding the musculoskeletal system. SERVICES COORDINATOR: 23:42 LMP N/A - Post-menopause ak1 Historical: - Allergies: 23:46 Tramadol HCl; ak1 - Home Meds: 23:46 Thyroid Med [Active]; metformin 500 mg oral TG24 3 times daily for Type 2 Diabetes ak1 Mellitus [Active]; Magnesium Oxide Oral daily [Active]; Bentyl Oral [Active]; - PMHx: 23:46 Diabetes - NIDDM; ak1 - PSHx: 23:46 Tubal ligation; Cholecystectomy; ; Lithotripsy; ak1 - Immunization history:: Adult Immunizations unknown. - Social history:: Smoking status: Patient/guardian denies using tobacco. - Ebola Screening: : No symptoms or risks identified at this time. Screenin:48 Abuse screen: Denies threats or abuse. Denies injuries from another. Nutritional ak1 screening: No deficits noted. Tuberculosis screening: No symptoms or risk factors identified. Fall Risk None identified. Assessment: 23:48 Derm: Skin is intact, Skin is pink, warm \T\ dry. normal. ak1 23:48 Reassessment: Patient appears in no apparent distress at this time. No changes from ak1 previously documented assessment. Patient and/or family updated on plan of care and expected duration. Pain level reassessed. see triage assessment. Vital Signs: 23:42 BP 158 / 91; Pulse 85; Resp 18; Temp 98.0(O); Pulse Ox 100% on R/A; Weight 56.7 kg (R); ak1 Height 5 ft. 2 in. (157.48 cm) (R); Pain 8/10; 23:42 Body Mass Index 22.86 (56.70 kg, 157.48 cm) ak1 ED Course: 23:28 Patient arrived in ED. ds1 23:28 Jeet Manley is Private Physician. ds1 23:42 Shirley Jordan, RN is Primary Nurse. ak1 23:42 Arm band placed on Patient placed in an exam room, on a stretcher, on pulse oximetry, ak1 Patient notified of wait time. 23:44 Triage completed. ak1 23:48 Patient has correct armband on for positive identification. Bed in low position. Call ak1 light in reach. Side rails up X 1. Pulse ox on. NIBP on. 23:57 Mick Gallardo MD is Attending Physician. radu 08/19 00:19 Mick Taylor PA is PHCP. cp 00:58 No provider procedures requiring assistance completed. Patient did not have IV access ak1 during this emergency room visit. Administered Medications: 00:58 Drug: Bactrim (160 mg-800 mg (DS) 1 tablet Route: PO; ak1 01:01 Follow up: Response: No adverse reaction ak1 Outcome: 00:54 Discharge ordered by . cp 00:59 Discharged to home ambulatory. ak1 00:59 Condition: good 00:59 Discharge instructions given to patient, Instructed on discharge instructions, follow up and referral plans. no drinking with medication, no driving heavy equipment, medication usage, wound care, Demonstrated understanding of instructions, follow-up care, medications, Prescriptions given X 2. 01:03 Patient left the ED. ak1 Signatures: Mick Gallardo MD MD cha Sanford, Demi ds1 Shirley Jordan, RN RN ak1 Mick Taylor, PA PA cp
[2017-08-19] MEDS ORDERED: SMZ./TMP. 800/160 MG TABLET ONE (00:59)
[2017-08-19 01:47] VITALS: BP 158/91; TEMP 98; O2SAT 100
== END 2017-08-19 01:03 | disposition home or self-care (01) ==
LOC: ER 23:27
DX: S10.96XA Insect bite of unspecified part of neck, initial encounter (principal); L03.221 Cellulitis of neck; E11.9 Type 2 diabetes mellitus without complications; Z88.6 Allergy status to analgesic agent
CPT/HCPCS: 99283

== ENCOUNTER 2017-09-23 10:12 | Emergency (ER) | payer BC ==
[2017-09-23] MEDS ORDERED: NA CHLORIDE 0.9% 1,000 ML ONE (10:53)
[2017-09-23 11:25] LABS: Absolute Lymphocytes (CBC) 1.8 K/uL (0.7-4.9); Absolute Monocytes 0.3 K/uL (0.1-1.3); Absolute Neutrophil 3.4 K/uL (1.8-8.0); Basophils % 0.6 % (0-1.3); Eosinophils % 1.6 % (0-4.4); Hematocrit 39.5 % (36.0-45.0); Lymphocytes % 31.8 % (15.3-44.8); MCH 30.4 pg (27.0-35.0); MCV 87.1 fL (80-100); MPV 8.5 fL (7.6-11.3); Monocytes % 5.2 % (3.3-12.3); RBC Red Blood Cell Count 4.53 M/uL (3.86-4.86)
[2017-09-23 11:36] LABS: Albumin 3.8 g/dL (3.4-5.0); Bilirubin Direct 0.1 mg/dL (0-0.2); Bilirubin Total 0.3 mg/dL (0.2-1.0); Potassium 3.9 mmol/L (3.5-5.1); Protein, Total 7.8 g/dL (6.4-8.2)
[2017-09-23 11:37] LABS: Urine Blood 1+ (NEG); Urine Glucose 2+ (NEG); Urine Protein NEGATIVE (NEG)
[2017-09-23 11:39] LABS: Urine Amorphous Sediment 1+ /HPF (NONE SEEN); Urine Bacteria <20 /HPF (<20); Urine Culture Reflex Order NOT NEEDED
--- NOTE | 2017-09-23 12:44 | RAD REPORT ---
EXAM DESCRIPTION: CT - Abdomen Pelvis W Contrast - 09/23/2017 12:24 pm CLINICAL HISTORY: Abdominal pain. COMPARISON: July 2017 TECHNIQUE: Computed axial tomography of the abdomen and pelvis was obtained. 100 cc Isovue-300 is ad ministered intravenously. Oral contrast was given. All CT scans are performed using dose optimization technique as appropriate and may include automated exposure control or mA/KV adjustment according to patient size. FINDINGS: Mild right hydronephrosis is without significant change since the prior exam. Several small low-densi ty areas extend to the periphery of the right kidney. A genitourinary calculus is not seen. The left kidney is unremarkable. The kidneys demonstrate symmetric concentration of contrast. The liver, spleen, pancreas and adrenals appear unremarkable. A tiny umbilical hernia is present. An adnexal mass is not seen. The gallbladder has been removed IMPRESSION: Small low-density areas extending to the periphery of the right kidney with mild right h ydronephrosis. This may indicate infection or inflammation.
--- NOTE | 2017-09-23 12:51 | ER ---
Nurse's Notes [facility] Name: Alyson Mayfield Age: 47 yrs Sex: Female : 1970 Arrival Date: 09/23/2017 Time: 10:15 Bed 8 Private MD: Jeet Manley Diagnosis: Unspecified abdominal pain;Mild right hydronephrosis Presentation: 09/23 10:25 Presenting complaint: Patient states: Dr. Manley sent me over here for pancreatitis, i tw2 am always having abdominal pain though. Transition of care: patient was not received from another setting of care. Onset of symptoms was September 23, 2017. Risk Assessment: Do you want to hurt yourself or someone else? Patient reports no desire to harm self or others. Initial Sepsis Screen: Does the patient meet any 2 criteria? No. Patient's initial sepsis screen is negative. Does the patient have a suspected source of infection? No. Patient's initial sepsis screen is negative. Care prior to arrival: None. 10:25 Method Of Arrival: Ambulatory tw2 10:25 Acuity: KLAUS 3 tw2 Triage Assessment: 13:47 General: Behavior is calm, appropriate for age. 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 tw2 Historical: - Allergies: 10:27 Tramadol HCl; tw2 - Home Meds: 10:27 Bentyl Oral [Active]; Magnesium Oxide Oral daily [Active]; metformin 500 mg Oral TG24 3 tw2 times daily for Type 2 Diabetes Mellitus [Active]; Thyroid Med [Active]; - PMHx: 10:27 Diabetes - NIDDM; tw2 - PSHx: 10:27 Cholecystectomy; ; Lithotripsy; Tubal ligation; tw2 - Immunization history:: Adult Immunizations up to date. - Social history:: Smoking status: Patient/guardian denies using tobacco. - Ebola Screening: : Patient denies travel to an Ebola-affected area in the 21 days before illness onset. Screenin:28 Abuse screen: Denies threats or abuse. Nutritional screening: No deficits noted. tw2 Tuberculosis screening: No symptoms or risk factors identified. Fall Risk None identified. Assessment: 10:40 General: Appears in no apparent distress. Pain: Pain currently is 7 out of 10 on a pain hb scale. Neuro: Level of Consciousness is awake, alert, obeys commands, Oriented to person, place, time, situation. Cardiovascular: Heart tones S1 S2 present Capillary refill < 3 seconds Patient's skin is warm and dry. Respiratory: Airway is patent Trachea midline Respiratory effort is even, unlabored, Respiratory pattern is regular, symmetrical, Breath sounds are clear bilaterally. GI: Abdomen is non-distended, Bowel sounds present X 4 quads. Abd is soft and non tender X 4 quads. Reports LUQ pain. : No signs and/or symptoms were reported regarding the genitourinary system. EENT: No signs and/or symptoms were reported regarding the EENT system. Derm: No signs and/or symptoms reported regarding the dermatologic system. Skin is intact, is healthy with good turgor, Skin is pink, warm \T\ dry. Musculoskeletal: No signs and/or symptoms reported regarding the musculoskeletal system. 11:00 Reassessment: Pt finished drinking oral contrast, CT notified. hb 11:52 Reassessment: Patient appears in no apparent distress at this time. No changes from tw2 previously documented assessment. Patient and/or family updated on plan of care and expected duration. Pain level reassessed. Patient is alert, oriented x 3, equal unlabored respirations, skin warm/dry/pink. 12:36 Reassessment: Patient appears in no apparent distress at this time. No changes from tw2 previously documented assessment. Patient and/or family updated on plan of care and expected duration. Pain level reassessed. Patient is alert, oriented x 3, equal unlabored respirations, skin warm/dry/pink. pt refused Zofran at this time, pt states I am not nauseous, provider notified, pt instructed to notify us via call light if she becomes nauseous. 13:46 Reassessment: Patient appears in no apparent distress at this time. No changes from tw2 previously documented assessment. Patient and/or family updated on plan of care and expected duration. Pain level reassessed. Patient is alert, oriented x 3, equal unlabored respirations, skin warm/dry/pink. Vital Signs: 10:25 BP 126 / 86; Pulse 94; Resp 18; Temp 98.2(TE); Pulse Ox 98% on R/A; Pain 7/10; tw2 11:51 BP 139 / 76; Pulse 70; Resp 17; Pulse Ox 98% on R/A; tw2 13:45 BP 153 / 79; Pulse 72; Resp 17; Pulse Ox 99% on R/A; tw2 ED Course: 10:15 Patient arrived in ED. rg4 10:16 Jeet Manley is Private Physician. rg4 10:20 [facility]. pm1 10:20 Ruddy Spaulding MD is Attending Physician. pm1 10:25 Elizabeth Fitch, ROB is Primary Nurse. tw2 10:26 Triage completed. tw2 10:26 Arm band placed on. tw2 10:26 Bed in low position. Call light in reach. Pulse ox on. NIBP on. tw2 11:10 Initial lab(s) drawn, by me, sent to lab. Urine collected: clean catch specimen, clear, jb1 [place] colored. Inserted saline lock: 22 gauge in left antecubital area, using aseptic technique. Blood collected. 12:[address] via wheelchair. nj 12:24 CT completed. Patient tolerated procedure well. Patient moved back from CT. nj 12:24 CT Abd/Pelvis - W/Contrast In Process Unspecified. EDMS 12:51 Samuel Blanchard MD is Referral Physician. pm1 12:55 Awaiting: waiting completion of IV fluids prior to discharge. tw2 13:27 Mihir Liu MD is Referral Physician. pm1 13:46 No provider procedures requiring assistance completed. IV discontinued, intact, tw2 bleeding controlled, No redness/swelling at site. Pressure dressing applied. Administered Medications: 11:29 Drug: NS 0.9% 1000 ml Route: IV; Rate: 1000 ml; Site: left antecubital; tw2 13:30 Follow up: IV Status: Completed infusion; IV Intake: 1000ml tw2 13:26 Not Given (Patient Refused): Zofran 4 mg IVP once; over 2 minutes tw2 Intake: 13:30 IV: 1000ml; Total: 1000ml. tw2 Outcome: 12:51 Discharge ordered by . pm1 13:46 Discharged to home ambulatory. tw2 13:46 Condition: stable 13:46 Discharge instructions given to patient, Instructed on discharge instructions, follow up and referral plans. Demonstrated understanding of instructions, follow-up care. 13:47 Patient left the ED. tw2 Signatures: Dispatcher [employer] EDIN Anton Gil jb1 Avinash Jones NP ASSISTANT SITE MANAGER pm1 Marisa Dash, RN RN hb Elizabeth Fitch, RN RN tw2 Peggy Nieto rg4 Kristopher Rome
--- NOTE | 2017-09-23 12:51 | EDPHYS ---
Physician Documentation [facility] Name: Alyson Mayfield Age: 47 yrs Sex: Female : 1970 Arrival Date: 09/23/2017 Time: 10:15 Bed 8 Private MD: Jeet Manley ED Physician Ruddy Spaulding HPI: 09/23 10:45 This 47 yrs old Female presents to ER via Ambulatory with complaints of pm1 Abdominal Pain. 10:45 The patient presents with abdominal pain in the left upper quadrant, in the left lower pm1 quadrant. Onset: The symptoms/episode began/occurred LLQ pain for the past 2 days and LUQ pain present since July 2017. The symptoms do not radiate. Associated signs and symptoms: Pertinent positives: nausea, Decreased appetite, Pertinent negatives: chest pain, diarrhea, dysuria, fever, shortness of breath. The symptoms are described as achy. Modifying factors: The symptoms are alleviated by nothing, the symptoms are aggravated by nothing. The patient has been recently seen by a physician: the patient's primary care provider, Dr. Manley with similar presenting complaints, lab tests were done, Told to report to the ER for evaluation and treatment because her labs drawn on Tuesday at the office this week showed that she has pancreatitis. 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 tw2 Historical: - Allergies: 10:27 Tramadol HCl; tw2 - Home Meds: 10:27 Bentyl Oral [Active]; Magnesium Oxide Oral daily [Active]; metformin 500 mg Oral TG24 3 tw2 times daily for Type 2 Diabetes Mellitus [Active]; Thyroid Med [Active]; - PMHx: 10:27 Diabetes - NIDDM; tw2 - PSHx: 10:27 Cholecystectomy; ; Lithotripsy; Tubal ligation; tw2 - Immunization history:: Adult Immunizations up to date. - Social history:: Smoking status: Patient/guardian denies using tobacco. - Ebola Screening: : Patient denies travel to an Ebola-affected area in the 21 days before illness onset. ROS: 11:00 Constitutional: Negative for fever, chills, and weight loss, Eyes: Negative for injury, pm1 pain, redness, and discharge, ENT: Negative for injury, pain, and discharge, Neck: Negative for injury, pain, and swelling, Cardiovascular: Negative for chest pain, palpitations, and edema, Respiratory: Negative for shortness of breath, cough, wheezing, and pleuritic chest pain. 11:00 Back: Negative for injury and pain, : Negative for injury, bleeding, discharge, and swelling, MS/Extremity: Negative for injury and deformity, Skin: Negative for injury, rash, and discoloration, Neuro: Negative for headache, weakness, numbness, tingling, and seizure. 11:00 Abdomen/GI: Positive for abdominal pain, nausea, Negative for vomiting, diarrhea, constipation. Exam: 11:00 Constitutional: This is a well developed, well nourished patient who is awake, alert, pm1 and in no acute distress. Head/Face: Normocephalic, atraumatic. Neck: Trachea midline, no thyromegaly or masses palpated, and no cervical lymphadenopathy. Supple, full range of motion without nuchal rigidity, or vertebral point tenderness. No Meningismus. Chest/axilla: Normal chest wall appearance and motion. Nontender with no deformity. No lesions are appreciated. Cardiovascular: Regular rate and rhythm with a normal S1 and S2. No gallops, murmurs, or rubs. Normal PMI, no JVD. No pulse deficits. Respiratory: Lungs have equal breath sounds bilaterally, clear to auscultation and percussion. No rales, rhonchi or wheezes noted. No increased work of breathing, no retractions or nasal flaring. 11:00 Back: No spinal tenderness. No costovertebral tenderness. Full range of motion. Skin: Warm, dry with normal turgor. Normal color with no rashes, no lesions, and no evidence of cellulitis. MS/ Extremity: Pulses equal, no cyanosis. Neurovascular intact. Full, normal range of motion. 11:00 Abdomen/GI: Inspection: abdomen appears normal, Bowel sounds: normal, Palpation: soft, mild abdominal tenderness, in the left lower quadrant, mass, is not appreciated, rebound tenderness, is not appreciated. 11:00 Neuro: Orientation: is normal, Motor: moves all fours, Gait: is steady, at a normal pace, without difficulty. Vital Signs: 10:25 BP 126 / 86; Pulse 94; Resp 18; Temp 98.2(TE); Pulse Ox 98% on R/A; Pain 7/10; tw2 11:51 BP 139 / 76; Pulse 70; Resp 17; Pulse Ox 98% on R/A; tw2 13:45 BP 153 / 79; Pulse 72; Resp 17; Pulse Ox 99% on R/A; tw2 MDM: 10:21 Patient medically screened. pm1 12:50 Data reviewed: vital signs. Data interpreted: Pulse oximetry: on room air is 98 %. pm1 Interpretation: normal. 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 09/23 10:37 Order name: Amylase, Serum; Complete Time: 11:54 pm09/23 10:37 Order name: Basic Metabolic Panel; Complete Time: 11:54 pm09/23 10:37 Order name: CBC with Diff; Complete Time: 11:54 pm09/23 10:37 Order name: Creatinine for Radiology; Complete Time: 11:54 pm09/23 10:37 Order name: Hepatic Function; Complete Time: 11:54 pm09/23 10:37 Order name: Lipase; Complete Time: 11:54 pm09/23 10:37 Order name: Urine Test (obtain specimen); Complete Time: 11:10 pm09/23 10:37 Order name: Urine Microscopic Only; Complete Time: 11:54 pm09/23 10:37 Order name: IV Saline Lock; Complete Time: 11:10 pm09/23 10:37 Order name: CT Abd/Pelvis - W/Contrast; Complete Time: 12:48 pm09/23 11:31 Order name: Urine Dipstick--Ancillary (enter results); Complete Time: 11:54 bd 09/23 11:31 Order name: Urine --Ancillary (enter results); Complete Time: 11:54 bd 09/23 10:37 Order name: Labs collected and sent; Complete Time: 11:10 pm09/23 10:37 Order name: Urine Dipstick-Ancillary (obtain specimen); Complete Time: 11:10 pm09/23 10:52 Order name: NPO; Complete Time: 11:29 pm1 Administered Medications: 11:29 Drug: NS 0.9% 1000 ml Route: IV; Rate: 1000 ml; Site: left antecubital; tw2 13:30 Follow up: IV Status: Completed infusion; IV Intake: 1000ml tw2 13:26 Not Given (Patient Refused): Zofran 4 mg IVP once; over 2 minutes tw2 Disposition: 19:07 Co-signature as Attending Physician, Ruddy Spaulding MD. rn Disposition: 09/23/17 12:51 Discharged to Home. Impression: Unspecified abdominal pain, Mild right hydronephrosis. - Condition is Stable. - Discharge Instructions: Abdominal Pain, Adult, Hydronephrosis. - Medication Reconciliation Form, Thank You Letter form. - Follow up: Emergency Department; When: As needed; Reason: Worsening of condition. Follow up: Samuel Blanchard MD; When: 2 - 3 days; Reason: Recheck today's complaints, Continuance of care, Re-evaluation by your physician. Follow up: Mihir Liu MD; When: 2 - 3 days; Reason: Recheck today's complaints, Continuance of care, Re-evaluation by your physician. - Problem is new. - Symptoms have improved. Signatures: Dispatcher [employer] EDMS Ruddy Spaulding MD MD rn Marinas, Patrick, NP SANDING MACHINE OPERATOR OR TENDER pm1 Elizabeth Fitch RN RN tw2 Corrections: (The following items were deleted from the chart) 12:50 12:50 Counseling: I had a detailed discussion with the patient and/or guardian pm1 regarding: the historical points, exam findings, and any diagnostic results supporting the discharge/admit diagnosis, lab results, radiology results, the need for outpatient follow up, to return to the emergency department if symptoms worsen or persist or if there are any questions or concerns that arise at home, pm1 13:26 12:51 09/23/2017 12:51 Discharged to Home. Impression: Unspecified abdominal pain. pm1 Condition is Stable. Forms are Medication Reconciliation Form, Thank You Letter, Antibiotic Education, Prescription Opioid Use. Follow up: Emergency Department; When: As needed; Reason: Worsening of condition. Follow up: Samuel Blanchard; When: 2 - 3 days; Reason: Recheck today's complaints, Continuance of care, Re-evaluation by your physician. Problem is new. Symptoms have improved. pm1 13:27 13:26 09/23/2017 12:51 Discharged to Home. Impression: Unspecified abdominal pain; Mild pm1 right hydronephrosis. Condition is Stable. Discharge Instructions: Abdominal Pain, Adult. Forms are Medication Reconciliation Form, Thank You Letter, Antibiotic Education, Prescription Opioid Use. Follow up: Emergency Department; When: As needed; Reason: Worsening of condition. Follow up: Samuel Blanchard; When: 2 - 3 days; Reason: Recheck today's complaints, Continuance of care, Re-evaluation by your physician. Problem is new. Symptoms have improved. pm1 13:47 13:27 09/23/2017 12:51 Discharged to Home. Impression: Unspecified abdominal pain; Mild tw2 right hydronephrosis. Condition is Stable. Discharge Instructions: Abdominal Pain, Adult, Hydronephrosis. Forms are Medication Reconciliation Form, Thank You Letter. Follow up: Emergency Department; When: As needed; Reason: Worsening of condition. Follow up: Samuel Blanchard; When: 2 - 3 days; Reason: Recheck today's complaints, Continuance of care, Re-evaluation by your physician. Follow up: Mihir Liu; When: 2 - 3 days; Reason: Recheck today's complaints, Continuance of care, Re-evaluation by your physician. Problem is new. Symptoms have improved. pm1
[2017-09-23 14:00] VITALS: TEMP 98.2
[2017-09-23 14:02] VITALS: BP 153/79; O2SAT 99
== END 2017-09-23 13:47 | disposition home or self-care (01) ==
LOC: ER 10:12
DX: N13.30 Unspecified hydronephrosis (principal); E11.9 Type 2 diabetes mellitus without complications; Z88.6 Allergy status to analgesic agent
CPT/HCPCS: 36415; 74177; 80048; 80076; 81003; 81015; 81025; 82150; 83690; 85025; 96360; 96361; 99284; J7030; Q9967

== ENCOUNTER 2018-03-21 11:03 | Emergency (ER) | payer BC ==
[2018-03-21 11:59] LABS: Absolute Lymphocytes (CBC) 1.4 K/uL (0.7-4.9); Absolute Monocytes 0.3 K/uL (0.1-1.3); Absolute Neutrophil 4.6 K/uL (1.8-8.0); Basophils % 0.4 % (0-1.3); Hematocrit 37.3 % (36.0-45.0); Lymphocytes % 21.5 % (15.3-44.8); MPV 7.6 fL (7.6-11.3); Monocytes % 4.7 % (3.3-12.3); RBC Red Blood Cell Count 4.32 M/uL (3.86-4.86)
[2018-03-21 12:15] LABS: ALT/SGPT 19 U/L (12-78); AST/SGOT 10 U/L (15-37); Albumin 3.3 g/dL (3.4-5.0); Alkaline Phosphatase 111 U/L (45-117); BUN Blood Urea Nitrogen 11 mg/dL (7-18); Bicarbonate 27 mmol/L (21-32); Bilirubin Direct < 0.1 mg/dL (0-0.2); Bilirubin Total 0.3 mg/dL (0.2-1.0); Glucose Level 267 mg/dL (74-106); Lipase 168 U/L (73-393); Potassium 3.6 mmol/L (3.5-5.1); Protein, Total 6.5 g/dL (6.4-8.2); Sodium Level 140 mmol/L (136-145)
[2018-03-21] MEDS ORDERED: SUCRALFATE 1 GM TABLET ONE (12:15)
--- NOTE | 2018-03-21 12:25 | EKG ---
Test Date: 2018-03-21 Test Time: 11:45:40 Band Splitter: EDY MEASUREMENT RESULTS: Intervals: Rate: 77 VT: 130 QRSD: 74 QT: 398 QTc: 450 [place]: P: 27 VT: 130 QRS: 53 T: 58 INTERPRETIVE STATEMENTS: Normal sinus rhythm Low voltage QRS Borderline ECG No previous ECG available for comparison Electronically Signed On 03-21-18 12:25:23 MORTGAGE LOAN FUNDER by Tigre Billingsley
--- NOTE | 2018-03-21 12:45 | EDPHYS ---
Physician Documentation [facility] Name: Alyson Mayfield Age: 48 yrs Sex: Female : 1970 Arrival Date: 03/21/2018 Time: 11:06 Bed 26 Private MD: Jeet Manley ED Physician Bonifacio Vickers HPI: 03/21 18:01 This 48 yrs old Female presents to ER via Ambulatory with complaints of gs Abdominal Pain, Vomiting, Headache. 18:01 This 48 yrs old Female presents to ER via Ambulatory with complaints of gs Abdominal Pain, Vomiting, Headache. 18:01 The patient presents to the emergency department with nausea, vomiting, abdominal pain. gs Onset: The symptoms/episode began/occurred acutely. 18:02 Onset: The symptoms/episode began/occurred 1 day(s) ago. Possible causes: flare up of gs bowel problem. The symptoms are aggravated by nothing. The symptoms are alleviated by nothing. Associated signs and symptoms: Pertinent positives: abdominal pain, vomiting. Severity of symptoms: At their worst the symptoms were moderate in the emergency department the symptoms are unchanged. The patient has experienced similar episodes in the past, a few times. 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 - Social history:: Smoking status: Patient/guardian denies using tobacco. - Ebola Screening: : Patient negative for fever greater than or equal to 101.5 degrees Fahrenheit, and additional compatible Ebola Virus Disease symptoms Patient denies exposure to infectious person Patient denies travel to an Ebola-affected area in the 21 days before illness onset No symptoms or risks identified at this time. ROS: 18:02 All other systems are negative. gs Exam: 18:02 Head/Face: Normocephalic, atraumatic. Eyes: Pupils equal round and reactive to light, gs extra-ocular motions intact. Lids and lashes normal. Conjunctiva and sclera are non-icteric and not injected. Cornea within normal limits. Periorbital areas with no swelling, redness, or edema. ENT: Nares patent. No nasal discharge, no septal abnormalities noted. Tympanic membranes are normal and external auditory canals are clear. Oropharynx with no redness, swelling, or masses, exudates, or evidence of obstruction, uvula midline. Mucous membranes moist. Neck: Trachea midline, no thyromegaly or masses palpated, and no cervical lymphadenopathy. Supple, full range of motion without nuchal rigidity, or vertebral point tenderness. No Meningismus. Chest/axilla: Normal chest wall appearance and motion. Nontender with no deformity. No lesions are appreciated. Cardiovascular: Regular rate and rhythm with a normal S1 and S2. No gallops, murmurs, or rubs. Normal PMI, no JVD. No pulse deficits. Respiratory: Lungs have equal breath sounds bilaterally, clear to auscultation and percussion. No rales, rhonchi or wheezes noted. No increased work of breathing, no retractions or nasal flaring. Back: No spinal tenderness. No costovertebral tenderness. Full range of motion. Skin: Warm, dry with normal turgor. Normal color with no rashes, no lesions, and no evidence of cellulitis. MS/ Extremity: Pulses equal, no cyanosis. Neurovascular intact. Full, normal range of motion. Neuro: Awake and alert, GCS 15, oriented to person, place, time, and situation. Cranial nerves II-XII grossly intact. Motor strength 5/5 in all extremities. Sensory grossly intact. Cerebellar exam normal. Normal gait. 18:02 Constitutional: The patient appears alert, awake, uncomfortable. 18:02 Abdomen/GI: Palpation: moderate abdominal tenderness, in the epigastric area, rebound tenderness, is not appreciated. 18:07 ECG was reviewed by the Attending Physician. Vital Signs: 11:17 BP 139 / 85; Pulse 87; Resp 17; Temp 98.2; Pulse Ox 99% ; Weight 58.97 kg; Height 5 ft. sg 2 in. (157.48 cm); Pain 8/10; 13:04 BP 148 / 78; Pulse 72; Resp 18; Pulse Ox 98% on R/A; tl3 11:17 Body Mass Index 23.78 (58.97 kg, 157.48 cm) sg MDM: 11:34 Patient medically screened. 18:02 Differential diagnosis: Nonspecific abd pain, gastritis, pancreatitis. Data reviewed: vital signs, nurses notes. 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 Response to treatment: the patient's symptoms have markedly improved after treatment. 03/21 11:37 Order name: Basic Metabolic Panel; Complete Time: 12:41 03/21 11:37 Order name: CBC with Diff; Complete Time: 12:41 03/21 11:37 Order name: Hepatic Function; Complete Time: 12:41 03/21 11:37 Order name: Lipase; Complete Time: 12:41 03/21 11:37 Order name: EKG; Complete Time: 11:37 03/21 11:37 Order name: IV Saline Lock; Complete Time: 11:50 03/21 11:37 Order name: Labs collected and sent; Complete Time: 11:50 03/21 11:37 Order name: EKG - Nurse/Tech; Complete Time: 12:00 EC:07 Rate is 77 beats/min. Rhythm is regular. FL interval is normal. QRS interval is normal. gs T waves are Flattened. No ST changes noted. Clinical impression: NSR w/ Non-specific ST/T Changes. Interpreted by me. Administered Medications: 12:11 Drug: CarafATE 1 grams Route: PO; jn 13:05 Follow up: Response: No adverse reaction tl3 Disposition: 03/21/18 12:43 Discharged to Home. Impression: Epigastric abdominal tenderness. - Condition is Stable. - Discharge Instructions: Abdominal Pain, Adult. - Prescriptions for Carafate 100 mg/mL Oral suspension - take 10 milliliter by ORAL route 4 times per day on an empty stomach 1 hour before meals and at bedtime; 150 milliliter. Zofran 4 mg Oral Tablet - take 1 tablet by ORAL route every 12 hours As needed; 6 tablet. - Medication Reconciliation Form, Thank You Letter, Antibiotic Education, Prescription Opioid Use, Work release form form. - Follow up: Private Physician; When: 2 - 3 days; Reason: Re-evaluation by your physician. Signatures: Dispatcher [employer] Josr Noe RN RN sg Myers, Amanda, RN RN aj Starr, Gregory, MD MD gs Lowrey, Tammy, RN RN tl3 Corrections: (The following items were deleted from the chart) 13:05 12:43 03/21/2018 12:43 Discharged to Home. Impression: Epigastric abdominal tenderness. tl3 Condition is Stable. Forms are Medication Reconciliation Form, Thank You Letter, Antibiotic Education, Prescription Opioid Use. Follow up: Private Physician; When: 2 - 3 days; Reason: Re-evaluation by your physician. gs
--- NOTE | 2018-03-21 12:45 | ER ---
Nurse's Notes [facility] Name: Alyson Mayfield Age: 48 yrs Sex: Female : 1970 Arrival Date: 03/21/2018 Time: 11:06 Bed 26 Private MD: Jeet Manley Diagnosis: Epigastric abdominal tenderness Presentation: 03/21 11:13 Acuity: KLAUS 3 sg 11:15 Presenting complaint: Patient states: Reports abd pain that goes away around 5 pm, sg reports is able to eat then the pain comes back after eating during the night. Reports reason for visit today is that the pain has happened for three weeks, vomiting x1 this morning food contents, reports wearing tight fitting clothing (shirts) causes abd pain to worsen. Transition of care: patient was not received from another setting of care. Onset of symptoms was March 21, 2018. Risk Assessment: Do you want to hurt yourself or someone else? Patient reports no desire to harm self or others. Initial Sepsis Screen: Does the patient meet any 2 criteria? No. Patient's initial sepsis screen is negative. Does the patient have a suspected source of infection? No. Patient's initial sepsis screen is negative. Care prior to arrival: None. 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 - Social history:: Smoking status: Patient/guardian denies using tobacco. - Ebola Screening: : Patient negative for fever greater than or equal to 101.5 degrees Fahrenheit, and additional compatible Ebola Virus Disease symptoms Patient denies exposure to infectious person Patient denies travel to an Ebola-affected area in the 21 days before illness onset No symptoms or risks identified at this time. Screenin:20 Abuse screen: Denies threats or abuse. Denies injuries from another. Nutritional aj screening: No deficits noted. Tuberculosis screening: No symptoms or risk factors identified. Fall Risk None identified. Assessment: 12:11 General: Appears in no apparent distress. comfortable, Behavior is calm, cooperative. aj Pain: Complains of pain in umbilical area. Neuro: Level of Consciousness is awake, alert, obeys commands, Oriented to person, place, time, situation, Appropriate for age. Respiratory: Airway is patent Respiratory effort is even, unlabored, Respiratory pattern is regular, symmetrical. GI: Abdomen is flat, non-distended, Bowel sounds present X 4 quads. Abd is soft and non tender X 4 quads. Reports nausea, irregular bowel habit chronically. Derm: Skin is intact, is healthy with good turgor, Skin is pink, warm \T\ dry. normal. 13:04 Reassessment: Patient and/or family updated on plan of care and expected duration. Pain tl3 level reassessed. Patient is alert, oriented x 3, equal unlabored respirations, skin warm/dry/pink. Vital Signs: 11:17 BP 139 / 85; Pulse 87; Resp 17; Temp 98.2; Pulse Ox 99% ; Weight 58.97 kg; Height 5 ft. sg 2 in. (157.48 cm); Pain 8/10; 13:04 BP 148 / 78; Pulse 72; Resp 18; Pulse Ox 98% on R/A; tl3 11:17 Body Mass Index 23.78 (58.97 kg, 157.48 cm) ED Course: 11:06 Patient arrived in ED. mr 11:06 Jeet Manley is Private Physician. mr 11:12 Arm band placed on. sg 11:13 Triage completed. sg 11:25 Bonifacio Vickers MD is Attending Physician. gs 11:50 EKG done, by cleaning technician. reviewed by Bonifacio Vickers MD. sm3 11:50 Initial lab(s) drawn, by oh, sent to lab. Inserted saline lock: 20 gauge in right em1 antecubital area, using aseptic technique. Blood collected. 12:03 America Poe, RN is Primary Nurse. aj 12:20 Patient has correct armband on for positive identification. Placed in gown. Bed in low aj position. Call light in reach. Side rails up X 1. Pulse ox on. NIBP on. 13:04 No provider procedures requiring assistance completed. IV discontinued, intact, tl3 bleeding controlled, No redness/swelling at site. Pressure dressing applied. Administered Medications: 12:11 Drug: CarafATE 1 grams Route: PO; aj 13:05 Follow up: Response: No adverse reaction tl3 Outcome: 12:43 Discharge ordered by . alex 13:04 Discharged to home ambulatory. tl3 13:04 Condition: stable 13:04 Instructed on discharge instructions, follow up and referral plans. medication usage, Demonstrated understanding of instructions, follow-up care, medications, Prescriptions given X 2. 13:05 Patient left the ED. tl3 Signatures: Josr Mckay RN America Villela RN ROB Daley, Kristyn mr Pal, Ham em1 Bonifacio Vickers MD MD gs Lowrey, Tammy, RN RN tl3 Lexis Wesley 3
[2018-03-21 13:25] VITALS: TEMP 98.2
[2018-03-21 13:26] VITALS: BP 148/78; O2SAT 98
== END 2018-03-21 13:05 | disposition home or self-care (01) ==
LOC: ER 11:03
DX: R10.816 Epigastric abdominal tenderness (principal)
CPT/HCPCS: 36415; 80048; 80076; 83690; 85025; 93005; 99284

== ENCOUNTER 2018-04-10 19:16 | Emergency (ER) | payer BC ==
--- NOTE | 2018-04-10 21:09 | EDPHYS ---
Physician Documentation [facility] Name: Alyson Mayfield Age: 48 yrs Sex: Female : 1970 Arrival Date: 04/10/2018 Time: 19:19 Bed 15 Private MD: Jeet Manley ED Physician Bonifacio Vickers HPI: 04/10 21:26 This 48 yrs old Female presents to ER via Ambulatory with complaints of kb Non-Productive Cough, Fever, Body ache, Headache. 21:26 The patient or guardian reports cough, that is intermittent, described as moderate, kb with no sputum, difficulty breathing, flu symptoms, arthralgias, low-grade fever, myalgias, no appetite. Onset: The symptoms/episode began/occurred 5 day(s) ago. Severity of symptoms: At their worst the symptoms were moderate, in the emergency department the symptoms are unchanged. Modifying factors: The symptoms are alleviated by nothing, the symptoms are aggravated by nothing. Associated signs and symptoms: Pertinent positives: earache, fever, rhinorrhea, sore throat, Pertinent negatives: chest pain, diarrhea, nausea, vomiting. The patient has not experienced similar symptoms in the past. The patient has not recently seen a physician. 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 - Social history:: Smoking status: Patient/guardian denies using tobacco. - Ebola Screening: : Patient negative for fever greater than or equal to 101.5 degrees Fahrenheit, and additional compatible Ebola Virus Disease symptoms Patient denies exposure to infectious person Patient denies travel to an Ebola-affected area in the 21 days before illness onset. ROS: 21:24 Neck: Negative for injury, pain, and swelling, Cardiovascular: Negative for chest pain, kb palpitations, and edema, Abdomen/GI: Negative for abdominal pain, nausea, vomiting, diarrhea, and constipation, Back: Negative for injury and pain, : Negative for injury, bleeding, discharge, and swelling, MS/Extremity: Negative for injury and deformity, Skin: Negative for injury, rash, and discoloration, Neuro: Negative for headache, weakness, numbness, tingling, and seizure. 21:24 Constitutional: Positive for body aches, chills, fatigue, fever, malaise, Negative for poor PO intake, weight loss. 21:24 ENT: Positive for ear pain, rhinorrhea, sore throat. 21:24 Respiratory: Positive for cough, shortness of breath, Negative for dyspnea on exertion, hemoptysis, orthopnea, pleurisy, sputum production, wheezing. Exam: 21:26 Constitutional: This is a well developed, well nourished patient who is awake, alert, kb and in no acute distress. Head/Face: Normocephalic, atraumatic. Chest/axilla: Normal chest wall appearance and motion. Nontender with no deformity. No lesions are appreciated. Cardiovascular: Regular rate and rhythm with a normal S1 and S2. No gallops, murmurs, or rubs. Normal PMI, no JVD. No pulse deficits. Respiratory: Lungs have equal breath sounds bilaterally, clear to auscultation and percussion. No rales, rhonchi or wheezes noted. No increased work of breathing, no retractions or nasal flaring. Abdomen/GI: Soft, non-tender, with normal bowel sounds. No distension or tympany. No guarding or rebound. No evidence of tenderness throughout. Back: No spinal tenderness. No costovertebral tenderness. Full range of motion. Skin: Warm, dry with normal turgor. Normal color with no rashes, no lesions, and no evidence of cellulitis. MS/ Extremity: Pulses equal, no cyanosis. Neurovascular intact. Full, normal range of motion. Neuro: Awake and alert, GCS 15, oriented to person, place, time, and situation. Cranial nerves II-XII grossly intact. Motor strength 5/5 in all extremities. Sensory grossly intact. Cerebellar exam normal. Normal gait. 21:26 ENT: External ear(s): are unremarkable, Ear canal(s): are normal, TM's: bulging, on the left, Nose: is normal, Mouth: is normal, Posterior pharynx: is normal. Vital Signs: 19:48 BP 118 / 78; Pulse 88; Resp 18; Temp 97.9(O); Pulse Ox 98% on R/A; Weight 58.97 kg (R); fc Height 5 ft. 2 in. (157.48 cm) (R); Pain 8/10; 21:00 BP 128 / 89; Pulse 89; Resp 18; Temp 98.0; Pulse Ox 97% on R/A; Pain 6/10; aa1 19:48 Body Mass Index 23.78 (58.97 kg, 157.48 cm) MDM: 20:41 Patient medically screened. kb 21:25 Data reviewed: vital signs, nurses notes. Data interpreted: Pulse oximetry: on room air kb is 98 %. Interpretation: normal. Counseling: I had a detailed discussion with the patient and/or guardian regarding: the historical points, exam findings, and any diagnostic results supporting the discharge/admit diagnosis, lab results, the need for outpatient follow up, a family practitioner, to return to the emergency department if symptoms worsen or persist or if there are any questions or concerns that arise at home. 04/10 19:51 Order name: Strep 04/10 19:51 Order name: Flu; Complete Time: 20:42 04/10 19:52 Order name: Group A Streptococcus Rapid Sc; Complete Time: 20:42 EDCT 04/10 20:31 Order name: Throat Culture EDCT Administered Medications: No medications were administered Disposition: 04/10/18 21:08 Discharged to Home. Impression: Influenza due to certain identified influenza viruses, Otitis media, unspecified, left ear. - Condition is Stable. - Discharge Instructions: Otitis Media, Adult, [id number], Influenza, Adult, [id number]. - Prescriptions for Amoxicillin 875 mg Oral Tablet - take 1 tablet by ORAL route every 12 hours for 10 days; 20 tablet. - Medication Reconciliation Form, Thank You Letter, Antibiotic Education, Prescription Opioid Use form. - Follow up: Emergency Department; When: As needed; Reason: Worsening of condition. Follow up: Private Physician; When: 2 - 3 days; Reason: Recheck today's complaints, Continuance of care, Re-evaluation by your physician. Addendum: 04/17/2018 07:21 Co-signature as Attending Physician, Bonifacio Vickers MD. g s Signatures: Dispatcher [employer] EDSupriya Ambrosio FNP-C HOG RAISER-Ckb Bethanie Mckee RN RN aa1 Beverly Davey RN RN Bonifacio Vickers MD MD gs Corrections: (The following items were deleted from the chart) 04/10 21:30 21:08 04/10/2018 21:08 Discharged to Home. Impression: Influenza due to certain aa1 identified influenza viruses; Otitis media, unspecified, left ear. Condition is Stable. Forms are Medication Reconciliation Form, Thank You Letter, Antibiotic Education, Prescription Opioid Use. Follow up: Emergency Department; When: As needed; Reason: Worsening of condition. Follow up: Private Physician; When: 2 - 3 days; Reason: Recheck today's complaints, Continuance of care, Re-evaluation by your physician. kb
--- NOTE | 2018-04-10 21:09 | ER ---
Nurse's Notes [facility] Name: Alyson Mayfield Age: 48 yrs Sex: Female : 1970 Arrival Date: 04/10/2018 Time: 19:19 Bed 15 Private MD: Jeet Manley Diagnosis: Influenza due to certain identified influenza viruses;Otitis media, unspecified, left ear Presentation: 04/10 19:44 Presenting complaint: Patient states: that she is having left ear pain, chest pain only fc with cough which is dry, sore throat and fever along with chills for the past week. Transition of care: patient was not received from another setting of care. Onset of symptoms was April 02, 2018. Risk Assessment: Do you want to hurt yourself or someone else? Patient reports no desire to harm self or others. Initial Sepsis Screen: Does the patient meet any 2 criteria? No. Patient's initial sepsis screen is negative. Does the patient have a suspected source of infection? No. Patient's initial sepsis screen is negative. Care prior to arrival: None. 19:44 Method Of Arrival: Ambulatory 19:44 Acuity: KLAUS 4 fc Triage Assessment: 19:48 Headache History: The patient has had previous headaches and this one is similar to previous episodes. General: Appears uncomfortable, slender, well groomed, Behavior is calm, cooperative, appropriate for age. Pain: Complains of pain in back, neck and left ear Pain currently is 8 out of 10 on a pain scale. Quality of pain is described as aching, throbbing, Pain began 1 week ago Is continuous, Also complains of no other associated symptoms. EENT: Reports nasal congestion pain in left ear. Neuro: Level of Consciousness is awake, alert, obeys commands, Oriented to person, place, time, situation, Appropriate for age Slug Press Operator are equal bilaterally Moves all extremities. Full function Gait is steady, Speech is normal, Reports headache. Cardiovascular: No deficits noted. Respiratory: Reports cough that is non-productive. GI: No deficits noted. : No deficits noted. Derm: Skin is pink, warm \T\ dry. Musculoskeletal: Circulation, motion, and sensation intact. Capillary refill < 3 seconds, Range of motion: intact in all extremities. 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 - Social history:: Smoking status: Patient/guardian denies using tobacco. - Ebola Screening: : Patient negative for fever greater than or equal to 101.5 degrees Fahrenheit, and additional compatible Ebola Virus Disease symptoms Patient denies exposure to infectious person Patient denies travel to an Ebola-affected area in the 21 days before illness onset. Screenin:00 Abuse screen: Denies threats or abuse. Denies injuries from another. Nutritional aa1 screening: No deficits noted. Nutritional screening:. Tuberculosis screening: No symptoms or risk factors identified. Fall Risk None identified. Assessment: 21:00 General: Appears in no apparent distress. comfortable, Behavior is calm, cooperative, aa1 appropriate for age. Pain: Complains of pain in left ear. Neuro: Level of Consciousness is awake, alert, obeys commands, Oriented to person, place, time, situation, Moves all extremities. Full function Gait is steady. Cardiovascular: Heart tones S1 S2 present Rhythm is regular. Respiratory: Reports cough that is non-productive, Airway is patent Respiratory effort is even, unlabored, Respiratory pattern is regular, symmetrical, Breath sounds are clear bilaterally. GI: No signs and/or symptoms were reported involving the gastrointestinal system. : No signs and/or symptoms were reported regarding the genitourinary system. EENT: Reports pain in left ear. Derm: Skin is intact, is healthy with good turgor, Skin is pink, warm \T\ dry. Musculoskeletal: Circulation, motion, and sensation intact. Capillary refill < 3 seconds. 21:29 Reassessment: Patient appears in no apparent distress at this time. Patient is alert, aa1 oriented x 3, equal unlabored respirations, skin warm/dry/pink. Discussed d/c \T\ f/u instructions with pt; denies questions or concerns at this time. Vital Signs: 19:48 BP 118 / 78; Pulse 88; Resp 18; Temp 97.9(O); Pulse Ox 98% on R/A; Weight 58.97 kg (R); fc Height 5 ft. 2 in. (157.48 cm) (R); Pain 8/10; 21:00 BP 128 / 89; Pulse 89; Resp 18; Temp 98.0; Pulse Ox 97% on R/A; Pain 6/10; aa1 19:48 Body Mass Index 23.78 (58.97 kg, 157.48 cm) ED Course: 19:19 Patient arrived in ED. es 19:20 Jeet Manley is Private Physician. es 19:47 Triage completed. fc 19:48 Arm band placed on Patient placed in waiting room. fc 19:51 Flu and/or RSV swab sent to lab. Strep swab sent to lab. fc 20:41 Supriya Cortes FNP-C [facility]. kb 20:41 Bonifacio Vickers MD is Attending Physician. kb 21:00 Patient has correct armband on for positive identification. Bed in low position. Call aa1 light in reach. Pulse ox on. NIBP on. 21:29 No provider procedures requiring assistance completed. Patient did not have IV access aa1 during this emergency room visit. Administered Medications: No medications were administered Outcome: 21:08 Discharge ordered by . kb 21:29 Discharged to home ambulatory. aa1 21:29 Condition: good 21:29 Discharge instructions given to patient, Instructed on discharge instructions, follow up and referral plans. medication usage, Demonstrated understanding of instructions, follow-up care, medications, Prescriptions given X 1. 21:30 Patient left the ED. aa1 Signatures: Supriya Cortes FNP-C FNP-Bethanie Calloway, RN RN aa1 Roma Greenwood Felicia RN RN Corrections: (The following items were deleted from the chart) :34 21:31 No provider procedures requiring assistance completed. aa1 aa1 :34 21:31 Patient did not have IV access during this emergency room visit. aa1 aa1 :34 21:31 Reassessment: Patient appears in no apparent distress at this time. Patient is aa1 alert, oriented x 3, equal unlabored respirations, skin warm/dry/pink. Discussed d/c \T\ f/u instructions with pt; denies questions or concerns at this time aa1
[2018-04-10 21:46] VITALS: BP 118/78; TEMP 97.9; O2SAT 98
== END 2018-04-10 21:30 | disposition home or self-care (01) ==
LOC: ER 19:16
DX: J10.1 Influenza due to other identified influenza virus with other respiratory manifestations (principal); H66.92 Otitis media, unspecified, left ear; E11.9 Type 2 diabetes mellitus without complications; Z79.84 Long term (current) use of oral hypoglycemic drugs
CPT/HCPCS: 87070; 87081; 87804; 99283

== ENCOUNTER 2018-09-11 17:59 | Emergency (ER) | payer BC ==
[2018-09-11] MEDS ORDERED: NA CHLORIDE 0.9% 500 ML ONE (19:19)
[2018-09-11 19:21] LABS: Absolute Lymphocytes (CBC) 1.7 K/uL (0.7-4.9); Basophils % 0.4 % (0-1.3); Eosinophils % 1.8 % (0-4.4); Lymphocytes % 33.3 % (15.3-44.8); MPV 8.2 fL (7.6-11.3); Monocytes % 8.2 % (3.3-12.3); RBC Red Blood Cell Count 4.34 M/uL (3.86-4.86)
[2018-09-11 19:39] LABS: BUN Blood Urea Nitrogen 19 mg/dL (7-18); Bicarbonate 29 mmol/L (21-32); Glucose Level 390 mg/dL (74-106); Potassium 3.9 mmol/L (3.5-5.1); Sodium Level 137 mmol/L (136-145)
[2018-09-11 20:06] LABS: Urine Blood 2+ (NEG); Urine Glucose NEGATIVE (NEG); Urine Protein 2+ (NEG); Urine Specific Gravity 1.015 (1.005-1.030)
[2018-09-11 20:08] LABS: Urine Bacteria <20 /HPF (<20); Urine Culture Reflex Order NOT NEEDED
--- NOTE | 2018-09-11 20:44 | EDPHYS ---
Physician Documentation [facility] Name: Alyson Mayfield Age: 48 yrs Sex: Female : 1970 Arrival Date: 09/11/2018 Time: 18:01 Bed 16 Private MD: ED Physician Bonifacio Vickers HPI: 09/11 21:07 This 48 yrs old Female presents to ER via Ambulatory with complaints of Blood gs Sugar Problem. 21:07 The patient or guardian reports hyperglycemia. Onset: The symptoms/episode gs began/occurred 2 day(s) ago. Associated signs and symptoms: Pertinent positives: nausea, Pertinent negatives: constipation. Current symptoms: In the emergency department the patient's symptoms are unchanged from the initial presentation. The patient has experienced similar episodes in the past, several times. The patient has not recently seen a physician. 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 - Social history:: Smoking status: Patient/guardian denies using tobacco. - Ebola Screening: : No symptoms or risks identified at this time. ROS: 21:07 All other systems are negative. gs Exam: 21:07 Head/Face: Normocephalic, atraumatic. Eyes: Pupils equal round and reactive to light, gs extra-ocular motions intact. Lids and lashes normal. Conjunctiva and sclera are non-icteric and not injected. Cornea within normal limits. Periorbital areas with no swelling, redness, or edema. ENT: Nares patent. No nasal discharge, no septal abnormalities noted. Tympanic membranes are normal and external auditory canals are clear. Oropharynx with no redness, swelling, or masses, exudates, or evidence of obstruction, uvula midline. Mucous membranes moist. Neck: Trachea midline, no thyromegaly or masses palpated, and no cervical lymphadenopathy. Supple, full range of motion without nuchal rigidity, or vertebral point tenderness. No Meningismus. Chest/axilla: Normal chest wall appearance and motion. Nontender with no deformity. No lesions are appreciated. Cardiovascular: Regular rate and rhythm with a normal S1 and S2. No gallops, murmurs, or rubs. Normal PMI, no JVD. No pulse deficits. Respiratory: Lungs have equal breath sounds bilaterally, clear to auscultation and percussion. No rales, rhonchi or wheezes noted. No increased work of breathing, no retractions or nasal flaring. Abdomen/GI: Soft, non-tender, with normal bowel sounds. No distension or tympany. No guarding or rebound. No evidence of tenderness throughout. Back: No spinal tenderness. No costovertebral tenderness. Full range of motion. Skin: Warm, dry with normal turgor. Normal color with no rashes, no lesions, and no evidence of cellulitis. MS/ Extremity: Pulses equal, no cyanosis. Neurovascular intact. Full, normal range of motion. Neuro: Awake and alert, GCS 15, oriented to person, place, time, and situation. Cranial nerves II-XII grossly intact. Motor strength 5/5 in all extremities. Sensory grossly intact. Cerebellar exam normal. Normal gait. 21:07 Constitutional: The patient appears alert, awake. Vital Signs: 18:20 BP 170 / 100; Pulse 86; Resp 16 S; Temp 98.8(TE); Pulse Ox 100% on R/A; Weight 61.23 kg aa5 (R); Height 5 ft. 2 in. (157.48 cm) (R); Pain 9/10; 18:55 BP 133 / 61; Pulse 80; Resp 16; Pulse Ox 97% ; bp 19:44 BP 148 / 76; Pulse 85; Resp 16 S; Pulse Ox 98% on R/A; Pain 5/10; jd3 18:20 Body Mass Index 24.69 (61.23 kg, 157.48 cm) aa5 MDM: 20:16 Patient medically screened. gs 21:07 Differential diagnosis: DKA, hyperglycemia. Data reviewed: vital signs, nurses notes. gs Counseling: I had a detailed discussion with the patient and/or guardian regarding: the historical points, exam findings, and any diagnostic results supporting the discharge/admit diagnosis, lab results, the need for outpatient follow up. Response to treatment: the patient's symptoms have markedly improved after treatment, the patient's condition has returned to base line, the patient is now symptom free, and as a result, I will discharge patient. 09/11 18:59 Order name: CBC with Diff; Complete Time: 20:20 09/11 18:59 Order name: Basic Metabolic Panel; Complete Time: 20:20 09/11 18:59 Order name: Urine Microscopic Only; Complete Time: 20:20 09/11 19:54 Order name: Urine Dipstick--Ancillary (enter results); Complete Time: 20:20 co 09/11 19:54 Order name: Urine --Ancillary (enter results); Complete Time: 20:20 co 09/11 18:59 Order name: Urine Dipstick-Ancillary (obtain specimen); Complete Time: 20:00 Administered Medications: 19:04 CANCELLED (Duplicate Order): NS 0.9% 1000 ml IV at 1 bolus Per protocol; 1000 mL bolus 19:14 Drug: NS 0.9% 500 ml Route: IV; Rate: bolus; Site: left antecubital; 21:13 Follow up: Response: No adverse reaction; IV Status: Completed infusion; IV Intake: jd3 500ml Point of Care Testing: Blood Glucose: 18:20 Blood Glucose: 430 mg/dL; aa5 20:14 Blood Glucose: 334 mg/dL; jd3 Ranges: Critical Glucose Levels:Adult <50 mg/dl or >400 mg/dl <40 mg/dl or >180 mg/dl Disposition: 09/11/18 20:43 Discharged to Home. Impression: Hyperglycemia, unspecified. - Condition is Stable. - Discharge Instructions: Hyperglycemia. - Medication Reconciliation Form, Thank You Letter, Antibiotic Education, Prescription Opioid Use form. - Follow up: Private Physician; When: 2 - 3 days; Reason: Re-evaluation by your physician. Signatures: Dispatcher [employer] America Elkins RN RN aj Calderon, Audri, RN RN aa5 Bonifacio Vickers MD MD gs Davies, Jonathon, RN RN jd3 Corrections: (The following items were deleted from the chart) 19:04 18:59 NS 0.9% 1000 ml IV at 1 bolus Per protocol; 1000 mL bolus ordered. [facility] 21:13 20:43 09/11/2018 20:43 Discharged to Home. Impression: Hyperglycemia, unspecified. jd3 Condition is Stable. Forms are Medication Reconciliation Form, Thank You Letter, Antibiotic Education, Prescription Opioid Use. Follow up: Private Physician; When: 2 - 3 days; Reason: Re-evaluation by your physician.
--- NOTE | 2018-09-11 20:44 | ER ---
Nurse's Notes [facility] – [place], [place] Name: Alyson Mayfield Age: 48 yrs Sex: Female : 1970 Arrival Date: 09/11/2018 Time: 18:01 Bed 16 Private MD: Diagnosis: Hyperglycemia, unspecified Presentation: 09/11 18:19 Presenting complaint: Patient states: "I just feel very nauseated, dizzy, and my aa5 stomach hurts (upper abdomen), I feel like my blood sugar is high". Transition of care: patient was not received from another setting of care. Onset of symptoms was September 11, 2018. Risk Assessment: Do you want to hurt yourself or someone else? Patient reports no desire to harm self or others. Initial Sepsis Screen: Does the patient meet any 2 criteria? No. Patient's initial sepsis screen is negative. Does the patient have a suspected source of infection? No. Patient's initial sepsis screen is negative. Care prior to arrival: None. 18:19 Method Of Arrival: Ambulatory aa5 18:19 Acuity: KLAUS 2 aa5 Triage Assessment: 18:54 General: Appears in no apparent distress. uncomfortable, Behavior is cooperative, bp appropriate for age, anxious. Pain: Complains of pain in abdomen. EENT: No deficits noted. Neuro: No deficits noted. Cardiovascular: No deficits noted. Respiratory: Airway is patent Respiratory effort is even, unlabored. GI: Reports upper abdominal pain. : No signs and/or symptoms were reported regarding the genitourinary system. Derm: No deficits noted. Musculoskeletal: No deficits noted. 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 - Social history:: Smoking status: Patient/guardian denies using tobacco. - Ebola Screening: : No symptoms or risks identified at this time. Screenin:56 Abuse screen: Denies threats or abuse. Denies injuries from another. Nutritional bp screening: No deficits noted. Tuberculosis screening: No symptoms or risk factors identified. Fall Risk None identified. Assessment: 18:55 General: SEE TRIAGE NOTE. bp 19:12 General: Appears in no apparent distress. comfortable, Behavior is calm, cooperative, aj appropriate for age. Pain: Complains of pain in abdomen. Neuro: Level of Consciousness is awake, alert, obeys commands, Oriented to person, place, time, situation, Appropriate for age. Respiratory: Airway is patent Respiratory effort is even, unlabored, Respiratory pattern is regular, symmetrical. GI: Abdomen is flat, non-distended, Reports lower abdominal pain, upper abdominal pain. Derm: Skin is intact, is healthy with good turgor, Skin is pink, warm \\T\\ dry. normal. 19:43 General: Appears in no apparent distress. comfortable, Behavior is calm, cooperative, jd3 appropriate for age. Pain: Complains of pain in abdomen Quality of pain is described as aching. Neuro: Level of Consciousness is awake, alert, obeys commands, Oriented to person, place, time, situation. Cardiovascular: Capillary refill < 3 seconds Patient's skin is warm and dry. Respiratory: Airway is patent Respiratory effort is even, unlabored, Respiratory pattern is regular, symmetrical. GI: Abdomen is flat, non-distended, Reports lower abdominal pain, upper abdominal pain, Patient currently denies diarrhea, nausea, vomiting. : No signs and/or symptoms were reported regarding the genitourinary system. EENT: No signs and/or symptoms were reported regarding the EENT system. Derm: Skin is intact, Skin is dry, Skin is normal, Skin temperature is warm. Musculoskeletal: Circulation, motion, and sensation intact. Range of motion: intact in all extremities. 21:10 Reassessment: Patient appears in no apparent distress at this time. Patient and/or jd3 family updated on plan of care and expected duration. Pain level reassessed. Patient is alert, oriented x 3, equal unlabored respirations, skin warm/dry/pink. reported understanding of discharge instructions. Patient states feeling better. Patient states symptoms have improved. Vital Signs: 18:20 BP 170 / 100; Pulse 86; Resp 16 S; Temp 98.8(TE); Pulse Ox 100% on R/A; Weight 61.23 kg aa5 (R); Height 5 ft. 2 in. (157.48 cm) (R); Pain 9/10; 18:55 BP 133 / 61; Pulse 80; Resp 16; Pulse Ox 97% ; bp 19:44 BP 148 / 76; Pulse 85; Resp 16 S; Pulse Ox 98% on R/A; Pain 5/10; jd3 18:20 Body Mass Index 24.69 (61.23 kg, 157.48 cm) [facility] ED Course: 18:01 Patient arrived in ED. rg4 18:19 Arm band placed on. aa5 18:20 Triage completed. aa5 18:25 Emanuel Benavides, RN is Primary Nurse. bp 18:43 Bonifacio Vickers MD is Attending Physician. 18:56 Patient has correct armband on for positive identification. Bed in low position. Call bp light in reach. Side rails up X2. 19:12 No provider procedures requiring assistance completed. Inserted saline lock: 22 gauge aj in left antecubital area, using aseptic technique. Blood collected. 21:11 IV discontinued, intact, bleeding controlled, No redness/swelling at site. Pressure jd3 dressing applied. Administered Medications: 19:04 CANCELLED (Duplicate Order): NS 0.9% 1000 ml IV at 1 bolus Per protocol; 1000 mL bolus 19:14 Drug: NS 0.9% 500 ml Route: IV; Rate: bolus; Site: left antecubital; 21:13 Follow up: Response: No adverse reaction; IV Status: Completed infusion; IV Intake: jd3 500ml Point of Care Testing: Blood Glucose: 18:20 Blood Glucose: 430 mg/dL; aa5 20:14 Blood Glucose: 334 mg/dL; jd3 Ranges: Intake: 21:13 IV: 500ml; Total: 500ml. jd3 Outcome: 20:43 Discharge ordered by . 21:10 Discharged to home ambulatory. jd3 21:10 Condition: stable 21:10 Discharge instructions given to patient, Instructed on discharge instructions, follow up and referral plans. Demonstrated understanding of instructions, follow-up care. 21:13 Patient left the ED. jd3 Signatures: America Poe RN RN Tiffany Almeida RN RN [facility] Peggy Nieto [facility] Bonifacio Vickers MD MD Darryl Spivey RN RN jd3 Emanuel Benavides, ROB RN bp Corrections: (The following items were deleted from the chart) 20:00 19:44 BP 148 / 76; Pulse 85bpm; Resp 16bpm; Spontaneous; Pulse Ox 98% RA; jaicha jaicha
[2018-09-11 22:45] VITALS: TEMP 98.8
[2018-09-11 22:48] VITALS: BP 148/76; O2SAT 98
== END 2018-09-11 21:13 | disposition home or self-care (01) ==
LOC: ER 17:59
DX: E11.65 Type 2 diabetes mellitus with hyperglycemia (principal)
CPT/HCPCS: 36415; 80048; 81003; 81015; 81025; 82962; 85025; 96360; 96361; 99284

== ENCOUNTER 2018-12-18 18:05 | Emergency (ER) | payer BC ==
[2018-12-18] MEDS ORDERED: NA CHLORIDE 0.9% 1,000 ML ONE ×2 (19:01→20:06)
[2018-12-18] MEDS ORDERED: ONDANSETRON 4 MG/2 ML VIAL ONE (19:01)
[2018-12-18 19:22] LABS: Absolute Lymphocytes (CBC) 1.8 K/uL (0.7-4.9); Basophils % 0.3 % (0-1.3); Hematocrit 40.9 % (36.0-45.0); Lymphocytes % 26.4 % (15.3-44.8); MPV 8.2 fL (7.6-11.3); RBC Red Blood Cell Count 4.71 M/uL (3.86-4.86)
[2018-12-18 19:24] LABS: Urine Blood 2+ (NEG); Urine Glucose 3+ (NEG); Urine Protein 2+ (NEG); Urine Specific Gravity 1.015 (1.005-1.030); Urine pH 5.5 (5.0-7.0)
[2018-12-18 19:39] LABS: ALT/SGPT 42 U/L (12-78); AST/SGOT 12 U/L (15-37); Albumin 3.6 g/dL (3.4-5.0); Alkaline Phosphatase 127 U/L (45-117); BUN Blood Urea Nitrogen 35 mg/dL (7-18); Bicarbonate 26 mmol/L (21-32); Bilirubin Total 0.3 mg/dL (0.2-1.0); Glucose Level 394 mg/dL (74-106); Lipase 384 U/L (73-393); Potassium 4.2 mmol/L (3.5-5.1); Protein, Total 7.7 g/dL (6.4-8.2); Sodium Level 135 mmol/L (136-145)
--- NOTE | 2018-12-18 20:38 | ER ---
Nurse's Notes [facility] Name: Alyson Mayfield Age: 48 yrs Sex: Female : 1970 Arrival Date: 12/18/2018 Time: 18:06 Bed 27 Private MD: Diagnosis: Hyperglycemia, unspecified;Dehydration Presentation: 12/18 18:18 Presenting complaint: Patient states: UNCONTROLLED BLOOD SUGAR. Transition of care: bp patient was not received from another setting of care. Onset of symptoms is unknown. Risk Assessment: Do you want to hurt yourself or someone else? Patient reports no desire to harm self or others. Initial Sepsis Screen: Does the patient meet any 2 criteria? HR > 90 bpm. No. Patient's initial sepsis screen is negative. Does the patient have a suspected source of infection? No. Patient's initial sepsis screen is negative. Care prior to arrival: Glucose check: 372. 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 - Social history:: Smoking status: Patient/guardian denies using tobacco. - Ebola Screening: : No symptoms or risks identified at this time. Screenin:28 Abuse screen: Denies threats or abuse. Denies injuries from another. Nutritional ca1 screening: No deficits noted. Tuberculosis screening: No symptoms or risk factors identified. Fall Risk IV access (20 points). Assessment: 18:28 General: Appears in no apparent distress. comfortable, Behavior is calm, cooperative, ca1 appropriate for age, Reports feeling ill for > 3 days. Pain: Complains of pain in suprapubic area Pain does not radiate. Pain currently is 8 out of 10 on a pain scale. Quality of pain is described as burning, Pain began 1 day ago. Is intermittent. Neuro: Level of Consciousness is awake, alert, obeys commands, Oriented to person, place, time, situation. Cardiovascular: Heart tones S1 S2 present Capillary refill < 3 seconds Patient's skin is warm and dry. Pulses are all present. Respiratory: Airway is patent Respiratory effort is even, unlabored, Respiratory pattern is regular, symmetrical, Breath sounds are clear bilaterally. Respiratory: Reports cough that is non-productive, since a week ago. GI: Abdomen is flat, non-distended, Bowel sounds present X 4 quads. Abd is soft X 4 quads Abdomen is tender to palpation in suprapubic area Reports nausea. : No deficits noted. No signs and/or symptoms were reported regarding the genitourinary system. EENT: Ear canal clear on left ear and right ear Throat is pink Reports nasal congestion since 2-3 days. Derm: Skin is intact, is healthy with good turgor, Skin is pink, warm \T\ dry. Musculoskeletal: Circulation, motion, and sensation intact. Capillary refill < 3 seconds, Range of motion: intact in all extremities. 19:30 Reassessment: Patient appears in no apparent distress at this time. Patient and/or ca1 family updated on plan of care and expected duration. Pain level reassessed. Patient is alert, oriented x 3, equal unlabored respirations, skin warm/dry/pink. 20:50 Reassessment: Patient appears in no apparent distress at this time. Patient is alert, ca1 oriented x 3, equal unlabored respirations, skin warm/dry/pink. Patient states feeling better. Vital Signs: 18:20 BP 143 / 101; Pulse 104; Resp 16; Temp 97.2; Pulse Ox 100% ; Weight 62.14 kg; Height 5 bp ft. 2 in. (157.48 cm); 19:30 BP 164 / 88; Pulse 85; Resp 17 S; Pulse Ox 98% on R/A; ca1 20:50 BP 148 / 89; Pulse 90; Resp 17 S; Temp 98.4(O); Pulse Ox 99% on R/A; ca1 18:20 Body Mass Index 25.06 (62.14 kg, 157.48 cm) bp ED Course: 18:06 Patient arrived in ED. as 18:11 Ethan Arenas PA is PHCP. jr8 18:11 Ulysses Bhatt MD is Attending Physician. jr8 18:19 Triage completed. bp 18:20 Arm band placed on right wrist. bp 18:22 Davina Howell, ROB is Primary Nurse. ca1 18:27 Attending Physician role handed off by Ulysses Bhatt MD cha 18:27 Mick Gallardo MD is Attending Physician. radu 18:28 Patient has correct armband on for positive identification. Bed in low position. Call ca1 light in reach. Side rails up X 1. Pulse ox on. NIBP on. Warm blanket given. 18:28 No provider procedures requiring assistance completed. ca1 19:08 Initial lab(s) drawn, by mt, sent to lab. Inserted saline lock: 20 gauge in right lt1 antecubital area, using aseptic technique. 20:51 IV discontinued, intact, bleeding controlled, No redness/swelling at site. Pressure ca1 dressing applied. Administered Medications: 19:00 Drug: NS 0.9% 1000 ml Route: IV; Rate: 1000 ml; Site: right antecubital; ca1 20:08 Follow up: Urine output 150 ml; Response: No adverse reaction; IV Status: Completed ca1 infusion; IV Intake: 1000ml 20:54 Follow up: Response: No adverse reaction; IV Status: Completed infusion; IV Intake: ca1 1000ml 19:10 Drug: Zofran 4 mg Route: IVP; Site: right antecubital; ca1 20:09 Follow up: Response: No adverse reaction; Nausea is decreased ca1 20:08 Drug: NS 0.9% 1000 ml Route: IV; Rate: 1000 ml; Site: right antecubital; ca1 20:50 Follow up: Response: No adverse reaction; IV Status: Completed infusion; IV Intake: ca1 1000ml 20:50 Follow up: Response: No adverse reaction; IV Status: Completed infusion ca1 Intake: 20:08 IV: 1000ml; Total: 1000ml. ca1 Output: 20:08 Urine: 150ml; Total: 150ml. ca1 Outcome: 20:37 Discharge ordered by MD. dave 20:51 Discharged to home ambulatory. ca1 20:51 Condition: stable 20:51 Discharge instructions given to patient, Instructed on discharge instructions, follow up and referral plans. Demonstrated understanding of instructions, follow-up care. 20:52 Patient left the ED. ca1 Signatures: Mick Gallardo MD MD cha Martinez, Amelia as Roszak, Josh, PA PA jr8 Peltier, Brian, RN RN bp Davina Howell, RN RN ca1 Lizzie Miranda lt1
--- NOTE | 2018-12-18 20:38 | EDPHYS ---
Physician Documentation [facility] Name: Alyson Mayfield Age: 48 yrs Sex: Female : 1970 Arrival Date: 12/18/2018 Time: 18:06 Bed 27 Private MD: ED Physician Mick Gallardo HPI: 12/18 18:54 This 48 yrs old Female presents to ER via Ambulatory with complaints of High jr8 Blood Sugar. 18:54 Associated signs and symptoms: Pertinent negatives: diarrhea, skin flushing, urinary jr8 incontinence, vomiting. Pt reports that her PCP has been changing her diabetes meds, and she has recently been on bactrim, amoxiciliin, and fluconazole. Reports feeling upset stomach and nausea as well as having elevated BGL at home for the last couple days. 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 - Social history:: Smoking status: Patient/guardian denies using tobacco. - Ebola Screening: : No symptoms or risks identified at this time. ROS: 18:54 Constitutional: Negative for fever, chills, and weight loss, Eyes: Negative for injury, jr8 pain, redness, and discharge, ENT: Negative for injury, pain, and discharge, Neck: Negative for injury, pain, and swelling, Cardiovascular: Negative for chest pain, palpitations, and edema, Respiratory: Negative for shortness of breath, cough, wheezing, and pleuritic chest pain, Back: Negative for injury and pain, MS/Extremity: Negative for injury and deformity, Neuro: Negative for headache, weakness, numbness, tingling, and seizure. 18:54 Abdomen/GI: Positive for nausea, Negative for vomiting, diarrhea, constipation. Exam: 18:54 Constitutional: This is a well developed, well nourished patient who is awake, alert, jr8 and in no acute distress. Head/Face: Normocephalic, atraumatic. Eyes: Pupils equal round and reactive to light, extra-ocular motions intact. Lids and lashes normal. Conjunctiva and sclera are non-icteric and not injected. Cornea within normal limits. Periorbital areas with no swelling, redness, or edema. ENT: Nares patent. No nasal discharge, no septal abnormalities noted. Tympanic membranes are normal and external auditory canals are clear. Oropharynx with no redness, swelling, or masses, exudates, or evidence of obstruction, uvula midline. Mucous membranes moist. Neck: Trachea midline, no thyromegaly or masses palpated, and no cervical lymphadenopathy. Supple, full range of motion without nuchal rigidity, or vertebral point tenderness. No Meningismus. Chest/axilla: Normal chest wall appearance and motion. Nontender with no deformity. No lesions are appreciated. Cardiovascular: Regular rate and rhythm with a normal S1 and S2. No gallops, murmurs, or rubs. Normal PMI, no JVD. No pulse deficits. Respiratory: Lungs have equal breath sounds bilaterally, clear to auscultation No rales, rhonchi or wheezes noted. No increased work of breathing, no retractions or nasal flaring. Abdomen/GI: Soft, non-tender, with normal bowel sounds. No distension or tympany. No guarding or rebound. No evidence of tenderness throughout. Back: No spinal tenderness. No costovertebral tenderness. Full range of motion. MS/ Extremity: Pulses equal, no cyanosis. Neurovascular intact. Full, normal range of motion. Neuro: Awake and alert, GCS 15, oriented to person, place, time, and situation. Cranial nerves II-XII grossly intact. Motor strength 5/5 in all extremities. Sensory grossly intact. Cerebellar exam normal. Normal gait. Vital Signs: 18:20 BP 143 / 101; Pulse 104; Resp 16; Temp 97.2; Pulse Ox 100% ; Weight 62.14 kg; Height 5 bp ft. 2 in. (157.48 cm); 19:30 BP 164 / 88; Pulse 85; Resp 17 S; Pulse Ox 98% on R/A; ca1 20:50 BP 148 / 89; Pulse 90; Resp 17 S; Temp 98.4(O); Pulse Ox 99% on R/A; ca1 18:20 Body Mass Index 25.06 (62.14 kg, 157.48 cm) bp MDM: 18:27 Patient medically screened. radu 18:28 Medical screening is not applicable. radu 20:35 Data reviewed: vital signs, nurses notes, lab test result(s), and as a result, I will jr8 discharge patient. Data interpreted: Pulse oximetry: on room air is 100 %. Interpretation: normal. Counseling: I had a detailed discussion with the patient and/or guardian regarding: the historical points, exam findings, and any diagnostic results supporting the discharge/admit diagnosis, lab results, the need for outpatient follow up, a family practitioner, to return to the emergency department if symptoms worsen or persist or if there are any questions or concerns that arise at home. ED course: Pt states she is feeling better after the zofran and fluids and tolerating PO. 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 Pt verbalizes understanding and will given return precautions. 12/18 18:28 Order name: NAFISA; Complete Time: 18:59 ca1 12/18 18:48 Order name: CBC with Diff; Complete Time: 19:49 8 12/18 18:48 Order name: CMP; Complete Time: 19:49 [facility] 12/18 18:48 Order name: Lipase; Complete Time: 19:49 8 12/18 18:49 Order name: Ketone, Serum; Complete Time: 19:49 8 12/18 19:23 Order name: Urine Dipstick--Ancillary (enter results); Complete Time: 19:49 2 12/18 18:48 Order name: SL; Complete Time: 19:03 8 12/18 18:49 Order name: Urine Dipstick-Ancillary (obtain specimen); Complete Time: 19:22 [facility] 12/18 19:23 Order name: Urine --Ancillary (enter results); Complete Time: 19:49 2 12/18 20:46 Order name: NOVA; Complete Time: 00:51 ca1 Administered Medications: 19:00 Drug: NS 0.9% 1000 ml Route: IV; Rate: 1000 ml; Site: right antecubital; ca1 20:08 Follow up: Urine output 150 ml; Response: No adverse reaction; IV Status: Completed ca1 infusion; IV Intake: 1000ml 20:54 Follow up: Response: No adverse reaction; IV Status: Completed infusion; IV Intake: ca1 1000ml 19:10 Drug: Zofran 4 mg Route: IVP; Site: right antecubital; ca1 20:09 Follow up: Response: No adverse reaction; Nausea is decreased ca1 20:08 Drug: NS 0.9% 1000 ml Route: IV; Rate: 1000 ml; Site: right antecubital; ca1 20:50 Follow up: Response: No adverse reaction; IV Status: Completed infusion; IV Intake: ca1 1000ml 20:50 Follow up: Response: No adverse reaction; IV Status: Completed infusion ca1 Disposition: 12/19 06:20 Co-signature as Attending Physician, Mick Gallardo MD I agree with the assessment and radu plan of care. Disposition: 12/18/18 20:37 Discharged to Home. Impression: Hyperglycemia, unspecified, Dehydration. - Condition is Stable. - Discharge Instructions: Allergies, Adult, Dehydration, Adult, Hyperglycemia, Blood Glucose Monitoring, Adult. - Medication Reconciliation Form, Thank You Letter form. - Follow up: Private Physician; When: 2 - 3 days; Reason: Recheck today's complaints, Re-evaluation by your physician. - Problem is new. - Symptoms have improved. Signatures: Dispatcher [employer] EDMS Mick Gallardo MD MD cha Roszak, Josh, PA PA jr8 Emanuel Benavides, RN RN Davina Howell RN RN ca1 Corrections: (The following items were deleted from the chart) 12/18 20:52 20:37 12/18/2018 20:37 Discharged to Home. Impression: Hyperglycemia, unspecified; ca1 Dehydration. Condition is Stable. Discharge Instructions: Allergies, Adult, Dehydration, Adult, Hyperglycemia, Blood Glucose Monitoring, Adult. Forms are Medication Reconciliation Form, Thank You Letter, Antibiotic Education, Prescription Opioid Use. Follow up: Private Physician; When: 2 - 3 days; Reason: Recheck today's complaints, Re-evaluation by your physician. Problem is new. Symptoms have improved. jr8
[2018-12-18 21:50] VITALS: BP 148/89; TEMP 98.4; O2SAT 99
== END 2018-12-18 20:52 | disposition home or self-care (01) ==
LOC: ER 18:05
DX: E11.65 Type 2 diabetes mellitus with hyperglycemia (principal); E86.0 Dehydration; I10 Essential (primary) hypertension; E07.9 Disorder of thyroid, unspecified
CPT/HCPCS: 85025; 36415; 82010; 81025; 82962 ×2; 81003; 83690; 80053; 96374; 99284; J7030 ×2; J2405; 96361

== ENCOUNTER 2019-04-19 13:49 | Emergency (ER) | payer BC ==
--- OUTSIDE RECORDS SUMMARY | 2019-04-19 13:50 | XMS REPORT ---
:1970 [facility] Address [address] [place] [address] Dr. Le [address] [place] [id number] Care Team Providers Name Role Phone Unavailable Unavailable Unavailable Problems This patient has no known problems. Allergies, Adverse Reactions, Alerts This patient has no known allergies or adverse reactions. Medications This patient has no known medications.
[2019-04-19] MEDS ORDERED: METOCLOPRAMIDE 10 MG/2mL INJ ONE (14:48)
[2019-04-19] MEDS ORDERED: NA CHLORIDE 0.9% 1,000 ML ONE ×2 (14:48→16:41)
[2019-04-19] MEDS ORDERED: DIPHENHYDRAMINE 50 MG/ML VIAL ONE (14:48)
[2019-04-19 15:27] LABS: Absolute Lymphocytes (CBC) 1.6 K/uL (0.7-4.9); Basophils % 0.2 % (0-1.3); Hematocrit 37.9 % (36.0-45.0); Lymphocytes % 27.2 % (15.3-44.8); MPV 7.9 fL (7.6-11.3); RBC Red Blood Cell Count 4.35 M/uL (3.86-4.86)
[2019-04-19 15:32] LABS: Arterial Blood Carboxyhemoglob 1.2 % (0-1.5); Blood Gas Oxyhemoglobin 94.1 % (94-97); Blood O2 Saturation 96.2 % (92-98.5)
[2019-04-19 15:36] LABS: ALT/SGPT 36 U/L (12-78); AST/SGOT 13 U/L (15-37); Albumin 3.2 g/dL (3.4-5.0); Alkaline Phosphatase 104 U/L (45-117); BUN Blood Urea Nitrogen 21 mg/dL (7-18); Bicarbonate 29 mmol/L (21-32); Bilirubin Direct 0.1 mg/dL (0-0.2); Bilirubin Total 0.3 mg/dL (0.2-1.0); Glucose Level 122 mg/dL (74-106); Lipase 274 U/L (73-393); Potassium 3.6 mmol/L (3.5-5.1); Protein, Total 6.8 g/dL (6.4-8.2); Sodium Level 141 mmol/L (136-145)
--- NOTE | 2019-04-19 16:59 | RAD REPORT ---
EXAM DESCRIPTION: CT - Abdomen Pelvis W Contrast - 04/19/2019 4:44 pm CLINICAL HISTORY: abdominal pain, pain primarily left upper quadrant and lower ribcage COMPARISON: Abdomen Pelvis W Contrast dated 09/23/2017 TECHNIQUE: Biphasic, helical CT imaging of the abdomen and pelvis was performed following 100 ml non -ionic IV contrast. No oral contrast given. All CT scans are performed using dose optimization technique as appropriate and may include automated exposure control or mA/KV adjustment according to patient size. FINDINGS: No suspicious findings in the lung bases. Lower ribcage shows no abnormality. The liver, spleen, and pancreas show no suspicious findings. Cholecystectomy clips are present. Bilia ry tree within normal limits for a post cholecystectomy patient. Symmetric renal function is seen with no hydronephrosis or suspicious renal mass. No pyelonephritis o r acute parenchymal process. Minimal parenchymal loss in the upper pole left kidney is probably from prior infectious or inflammatory process. This is similar to prior imaging. No active renal parenchym al process seen. No adrenal abnormalities. Uterus and ovaries show no suspicious findings. No dilated bowel loops or bowel wall thickening. Moderate stool volume present in the colon. Mobile c ecum is present positioned in the anterior mid abdomen. Appendix is not clearly defined. No suspicion for appendicitis. No free air, free fluid or inflammatory stranding. No hernia, mass or bulky lymph adenopathy. No urinary bladder wall thickening. No suspicious bony findings. L5-S1 disc bulge changes are evident. Vascular calcifications are present. No acute vascular finding. IMPRESSION: Contrast enhanced CT abdomen and pelvis showing no acute or emergent finding. Nonacute findings are detailed in the body of the report and are similar to the 2018 study.
--- NOTE | 2019-04-19 17:39 | EDPHYS ---
[facility] Name: Alyson Mayfield Age: 49 yrs Sex: Female : 1970 Arrival Date: 04/19/2019 Time: 13:51 Bed 13 Private MD: ED Physician Bam Goode HPI: 04/19 14:53 This 49 yrs old Female presents to ER via Ambulatory with complaints of jmm Epigastric Pain. 14:53 The patient presents with abdominal pain in the epigastric area. Onset: The jmm symptoms/episode began/occurred gradually, 2 day(s) ago. The symptoms do not radiate. Associated signs and symptoms: Pertinent positives: nausea and vomiting, Pertinent negatives: diarrhea. The symptoms are described as achy. This is a 49 year old female with a history of dm, htn, that presents to the ED with complaints of epigastric pain , nausea, dry heaving beginning 2 days ago. Patient states having trouble controlling her glucose levels. Denies diarrhea. . 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 - Coronavirus screen:: The patient has NOT traveled to [place] in the past 14 days. The patient has NOT had contact with known/suspected case of Coronavirus?. - Social history:: Smoking status: Patient denies any tobacco usage or history of. - Ebola Screening: : Patient negative for fever greater than or equal to 101.5 degrees Fahrenheit, and additional compatible Ebola Virus Disease symptoms Patient denies exposure to infectious person Patient denies travel to an Ebola-affected area in the 21 days before illness onset No symptoms or risks identified at this time. ROS: 14:53 Constitutional: Negative for fever, chills, and weight loss, Cardiovascular: Negative [facility] for chest pain, palpitations, and edema, Respiratory: Negative for shortness of breath, cough, wheezing, and pleuritic chest pain. 14:53 Back: Negative for injury and pain, Neuro: Negative for headache, weakness, numbness, tingling, and seizure. 14:53 Abdomen/GI: Positive for abdominal pain, nausea. 14:53 All other systems are negative. Exam: 14:53 Constitutional: This is a well developed, well nourished patient who is awake, alert, jmm and in no acute distress. Head/Face: atraumatic. Eyes: EOMI, no conjunctival erythema appreciated ENT: Moist Mucus Membranes Neck: Trachea midline, Supple Chest/axilla: Normal chest wall appearance and motion. Cardiovascular: Regular rate and rhythm. No edema appreciated Respiratory: Normal respirations, no respiratory distress appreciated Abdomen/GI: Non distended, soft Back: Normal ROM Skin: General appearance color normal MS/ Extremity: Moves all extremities, no obvious deformities appreciated, no edema noted to the lower extremities Neuro: Awake and alert, normal gait Psych: Behavior is normal, Mood is normal, Patient is cooperative and pleasant Vital Signs: 14:15 BP 123 / 78; Pulse 90; Resp 19 S; Temp 98.1(O); Pulse Ox 100% on R/A; Weight 61.69 kg ca1 (R); Height 5 ft. 2 in. (157.48 cm) (R); Pain 8/10; 15:00 BP 154 / 85; Pulse 90; Pulse Ox 100% ; ah 16:56 BP 135 / 70; Pulse 88; Resp 15; Pulse Ox 100% on R/A; hb 14:15 Body Mass Index 24.87 (61.69 kg, 157.48 cm) ca1 MDM: 14:31 Patient medically screened. [facility] 17:36 Data reviewed: vital signs, nurses notes. Counseling: I had a detailed discussion with alton the patient and/or guardian regarding: the historical points, exam findings, and any diagnostic results supporting the discharge/admit diagnosis, lab results, radiology results, the need for outpatient follow up, to return to the emergency department if symptoms worsen or persist or if there are any questions or concerns that arise at home. ED course: Patient states that she feels much better. Patient is able to tolerate po in the ED. labs, imaging studies negative. patient is advised to follow up with pcp for reevaluation. patient understood and agrees with [facility] plan of care. . 04/19 14:36 Order name: Basic Metabolic Panel [facility] 04/19 14:36 Order name: CBC with Diff [facility] 04/19 14:36 Order name: Creatinine for Radiology [facility] 04/19 14:36 Order name: Hepatic Function [facility] 04/19 14:36 Order name: Lipase [facility] 04/19 14:36 Order name: Ketone, Serum [facility] 04/19 14:36 Order name: ABG [facility] 04/19 15:56 Order name: Basic Metabolic Panel; Complete Time: 16:22 EDMS 04/19 15:58 Order name: Liver (Hepatic) Function; Complete Time: 16:22 EDAR 04/19 15:59 Order name: Lipase; Complete Time: 16:22 EDMS 04/19 16:06 Order name: CBC with Automated Diff; Complete Time: 16:22 EDAR 04/19 16:06 Order name: Creatinine (Radiology Only); Complete Time: 16:22 EDAR 04/19 16:14 Order name: Acetone Level; Complete Time: 16:22 [facility] 04/19 16:15 Order name: ABG Arterial Blood Gas; Complete Time: 16:22 EDAR 04/19 14:36 Order name: IV Saline Lock; Complete Time: 15:39 [facility] 04/19 14:36 Order name: Labs collected and sent; Complete Time: 15:39 [facility] 04/19 16:23 Order name: CT Abd/Pelvis - IV Contrast Only [facility] 04/19 17:50 Order name: CT; Complete Time: 17:51 EDMS Administered Medications: 14:57 Drug: NS 0.9% 1000 ml Route: IV; Rate: 1 bolus; Site: right antecubital; ah 14:57 Drug: diphenhydrAMINE 12.5 mg Route: IVP; Site: right antecubital; ah 15:30 Follow up: Response: No adverse reaction hb 14:57 Drug: Reglan 10 mg Route: IVP; Site: right antecubital; ah 15:30 Follow up: Response: No adverse reaction hb 16:56 Drug: NS 0.9% 1000 ml Route: IV; Rate: 1 bolus; Site: right antecubital; hb Disposition: 19:00 Co-signature as Attending Physician, Bam Goode MD I agree with the assessment and kdr plan of care. Disposition: 04/19/19 17:37 Discharged to Home. Impression: Unspecified abdominal pain, Nausea. - Condition is Stable. - Discharge Instructions: Abdominal Pain, Adult. - Prescriptions for Zofran ODT 4 mg Oral tablet,disintegrating - place 1 tablet by TRANSLINGUAL route every 4-6 hours; 20 tablet. - Medication Reconciliation Form, Thank You Letter, Antibiotic Education, Prescription Opioid Use, Work release form form. - Follow up: Private Physician; When: 2 - 3 days; Reason: Recheck today's complaints, Continuance of care, Re-evaluation by your physician. Signatures: Dispatcher [employer] EDMS Bam Goode MD MD kdr Mickail, Joel, PA PA jmm Baxter, Heather, RN RN Dante, Davina RN RN [facility] Laquita Lima RN RN Corrections: (The following items were deleted from the chart) 17:52 17:37 04/19/2019 17:37 Discharged to Home. Impression: Unspecified abdominal pain; hb Nausea. Condition is Stable. Forms are Medication Reconciliation Form, Thank You Letter, Antibiotic Education, Prescription Opioid Use. Follow up: Private Physician; When: 2 - 3 days; Reason: Recheck today's complaints, Continuance of care, Re-evaluation by your physician. audelia
--- NOTE | 2019-04-19 17:39 | ER ---
Nurse's Notes [facility] Name: Alyson Mayfield Age: 49 yrs Sex: Female : 1970 Arrival Date: 04/19/2019 Time: 13:51 Bed 13 Private MD: Diagnosis: Unspecified abdominal pain;Nausea Presentation: 04/19 14:09 Presenting complaint: Patient states: I have been dry heaving a lot at night time in ca1 the last couple days. And today, I have been having this sharp pain under my rib cage on the L in the beginning but is now on the R too. Denies vomiting and diarrhea. Transition of care: patient was not received from another setting of care. Onset of symptoms was April 19, 2019. Risk Assessment: Do you want to hurt yourself or someone else? Patient reports no desire to harm self or others. Initial Sepsis Screen: Does the patient meet any 2 criteria? No. Patient's initial sepsis screen is negative. Does the patient have a suspected source of infection? No. Patient's initial sepsis screen is negative. Care prior to arrival: None. 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 - Coronavirus screen:: The patient has NOT traveled to [place] in the past 14 days. The patient has NOT had contact with known/suspected case of Coronavirus?. - Social history:: Smoking status: Patient denies any tobacco usage or history of. - Ebola Screening: : Patient negative for fever greater than or equal to 101.5 degrees Fahrenheit, and additional compatible Ebola Virus Disease symptoms Patient denies exposure to infectious person Patient denies travel to an Ebola-affected area in the 21 days before illness onset No symptoms or risks identified at this time. Screenin:05 Abuse screen: Denies threats or abuse. Denies injuries from another. Nutritional hb screening: No deficits noted. Tuberculosis screening: No symptoms or risk factors identified. Fall Risk None identified. Assessment: 14:30 General: Appears uncomfortable, Behavior is calm, cooperative. Pain: Complains of pain ah in epigastric area Pain does not radiate. Pain currently is 8 out of 10 on a pain scale. Quality of pain is described as aching, Pain began. 16:48 Neuro: Level of Consciousness is awake, alert, Oriented to person, place, time, ah situation, Geoscience Professor are equal bilaterally Moves all extremities. Cardiovascular: Heart tones S1 S2 present Capillary refill < 3 seconds Patient's skin is warm and dry. Pulses are palpable in right radial artery, right dorsalis pedis artery, left radial artery and left dorsalis pedis artery. Respiratory: Airway is patent Respiratory effort is even, unlabored, Respiratory pattern is regular, symmetrical, Breath sounds are clear bilaterally. GI: Reports nausea, dry heaving. : No signs and/or symptoms were reported regarding the genitourinary system. Musculoskeletal: No signs and/or symptoms reported regarding the musculoskeletal system. 17:35 Reassessment: Patient appears in no apparent distress at this time. Patient and/or hb family updated on plan of care and expected duration. Pain level reassessed. Patient is alert, oriented x 3, equal unlabored respirations, skin warm/dry/pink. Vital Signs: 14:15 BP 123 / 78; Pulse 90; Resp 19 S; Temp 98.1(O); Pulse Ox 100% on R/A; Weight 61.69 kg ca1 (R); Height 5 ft. 2 in. (157.48 cm) (R); Pain 8/10; 15:00 BP 154 / 85; Pulse 90; Pulse Ox 100% ; ah 16:56 BP 135 / 70; Pulse 88; Resp 15; Pulse Ox 100% on R/A; hb 14:15 Body Mass Index 24.87 (61.69 kg, 157.48 cm) ca1 ED Course: 13:51 Patient arrived in ED. as 14:12 Triage completed. ca1 14:15 Arm band placed on right wrist. ca1 14:18 Lincoln Ty PA is PHCP. [facility] 14:18 Bam Goode MD is Attending Physician. [facility] 14:21 Marisa Dash RN is Primary Nurse. hb 14:50 Initial lab(s) drawn, by me, sent to lab. Inserted saline lock: 22 gauge in right kj1 antecubital area, using aseptic technique. Blood collected. 16:05 Patient has correct armband on for positive identification. Placed in gown. Bed in low hb position. Call light in reach. Side rails up X 1. 16:30 Patient moved to SC via wheelchair. ah 17:51 No provider procedures requiring assistance completed. IV discontinued, intact, hb bleeding controlled, No redness/swelling at site. Pressure dressing applied. Administered Medications: 14:57 Drug: NS 0.9% 1000 ml Route: IV; Rate: 1 bolus; Site: right antecubital; ah 14:57 Drug: diphenhydrAMINE 12.5 mg Route: IVP; Site: right antecubital; ah 15:30 Follow up: Response: No adverse reaction hb 14:57 Drug: Reglan 10 mg Route: IVP; Site: right antecubital; ah 15:30 Follow up: Response: No adverse reaction hb 16:56 Drug: NS 0.9% 1000 ml Route: IV; Rate: 1 bolus; Site: right antecubital; hb Outcome: 17:37 Discharge ordered by MD. [facility] 17:51 Discharged to home ambulatory. hb 17:51 Condition: stable 17:51 Discharge instructions given to patient, Instructed on discharge instructions, follow up and referral plans. medication usage, Demonstrated understanding of instructions, follow-up care, medications, Prescriptions given X 1. 17:52 Patient left the ED. hb Signatures: Lincoln Ty PA PA jmm Martinez, Amelia as Marisa Dash RN RN Davina Howell RN RN [facility] Jenise Cortes 1 Laquita Lima RN RN Corrections: (The following items were deleted from the chart) 16:50 14:30 Pain: Complains of pain in epigastric area Pain does not radiate. Pain currently ah is 8 out of 10 on a pain scale. Quality of pain is described as aching, Pain began ah
[2019-04-20 11:11] VITALS: O2SAT 100
[2019-04-20 11:13] VITALS: TEMP 98.1
[2019-04-20 11:14] VITALS: BP 135/70
== END 2019-04-19 17:52 | disposition home or self-care (01) ==
LOC: ER 13:49
DX: R10.13 Epigastric pain (principal); R11.0 Nausea; I10 Essential (primary) hypertension; E11.9 Type 2 diabetes mellitus without complications; E07.9 Disorder of thyroid, unspecified; Z88.6 Allergy status to analgesic agent
CPT/HCPCS: 85025; 80048; 36415; 82010; 80076; 83690; 74177; 82805; 96375; 96374; 99284; Q9967; J2765; J1200; J7030 ×2

== ENCOUNTER 2019-05-24 06:23 | Day surgery (SDC) | payer BC ==
--- OUTSIDE RECORDS SUMMARY | 2019-05-24 06:31 | XMS REPORT ---
:1970 [facility] Address [address] [place] [address] Dr. Le [address] [place] [id number] Care Team Providers Name Role Phone Unavailable Unavailable Unavailable Problems This patient has no known problems. Allergies, Adverse Reactions, Alerts This patient has no known allergies or adverse reactions. Medications This patient has no known medications.
--- OUTSIDE RECORDS SUMMARY | 2019-05-24 06:32 | XMS REPORT | Summary of Care ---
:1970 Author Organization [facility] - [facility] Address [address] [place] [address] Care Team Providers Name Role Phone Jeet Manley MD Primary Care Provider Reason for Referral Radiology Services (STAT) Status Reason Specialty Diagnoses / Referred By Referred To Procedures Contact Contact New Request Diagnostic Diagnoses Epigastric pain Patricia Davies, Radiology Procedures XR CHEST 1 VW PAC [address] [place] [address] [place] [address] Reason for Visit Reason Comments Epigastric Pain Auth/Cert Status Reason Specialty Diagnoses / Referred By Referred To Procedures Contact Contact [facility] [address] [place] [address] [place] [address] Encounter Details Date Type Department Care Team Description 04/26/2019 - Emergency ADC-Emergency Patricia Davies, Epigastric pain ( Primary Dx); 04/27/2019 Department PAC Flank pain; [address] [place] [address] Urinary tract infection without hematuria, site unspecified [place], [place] [address] [place] [address] [phone] Allergies Active Allergy Reactions Severity Noted Date Comments Tramadol Itching 08/10/2016 documented as of this encounter (statuses as of 04/27/2019) Medications Medication Sig Dispensed Refills Start Date End Date Status glyBURIDE-metformin Take 1 Tab by mouth 0 Active (GLUCOVANCE) 5-500 2 (two) times daily mg tablet with meals. Pt reports due to financial reasons she is unable to take her diabetic medications and has not since December. ibuprofen (MOTRIN) Take 800 mg by 0 Active 800 mg mouth every 6 (six) tabletIndications: hours as needed. takes it once a day Indications: takes 3 times a week it once a day 3 times a week fluticasone Use in each 0 Active (FLONASE) 50 nostril daily. mcg/actuation nasal spray sulfamethoxazole-tri Take 1 tablet by 14 tablet 0 03/16/2016 Active methoprim 800-160 mg mouth every 12 per tablet (twelve) hours. traMADOL (ULTRAM) 50 Take 1 tablet by 20 tablet 0 03/16/2016 Active mg tablet mouth every 6 (six) hours as needed for Pain (scale 7-10) or Pain unrelieved by non-narcotic analgesics. benzocaine-menthol Apply 1 Lozenge as 30 Lozenge 0 08/10/2016 Active (CEPACOL SORE directed every 2 THROAT, JESSICA-MEN,) (two) hours as 15-2.6 mg Lozg needed for Pain (scale 1-3). fluconazole Take one dose today 2 tablet 0 08/10/2016 Active (DIFLUCAN) 150 mg and the second in tablet one week ibuprofen 600 mg Take 1 tablet by 20 tablet 0 12/16/2018 Active tabletIndications: mouth every 6 (six) Toe pain, left hours as needed for Pain (scale 1-3). documented as of this encounter (statuses as of 04/27/2019) Active Problems Problem Noted Date Type 2 diabetes mellitus 07/17/2014 Hyperlipidemia 07/17/2014 Nephrolithiasis 07/17/2014 documented as of this encounter (statuses as of 04/27/2019) Social History Tobacco Use Types Packs/Day Years Used Date Never Smoker Smokeless Tobacco: Never Used Alcohol Use Drinks/Week oz/Week Comments Yes 4 Standard drinks or equivalent 3.3 Sex Assigned at Date Recorded Not on file Job Start Date Occupation Industry Not on file Not on file Not on file Travel History Travel Start Travel End No recent travel history available. documented as of this encounter Last Filed Vital Signs Vital Sign Reading Time Taken Comments Blood Pressure 174/90 04/27/2019 12:00 AM [facility] Pulse 84 04/27/2019 12:00 AM [facility] Temperature 36.6 C (97.9 F) 04/26/2019 11:17 PM [facility] Respiratory Rate 15 04/27/2019 12:00 AM [facility] Oxygen Saturation 99% 04/27/2019 12:00 AM [facility] Inhaled Oxygen Concentration - - Weight 61.7 kg (136 lb) 04/26/2019 10:51 PM [facility] Height 157.5 cm (5' 2") 04/26/2019 10:51 PM [facility] Body Mass Index 24.87 04/26/2019 10:51 PM [facility] documented in this encounter Plan of Treatment Name Type Priority Associated Diagnoses Date/Time URINE CULTURE LAB STAT Epigastric pain 04/27/2019 12:41 AM [facility] Name Type Priority Associated Diagnoses Order Schedule URINE CULTURE LAB Routine Epigastric pain ONCE for 1 Occurrences starting 04/27/2019 until 04/27/2019 Health Maintenance Due Date Last Done Comments HgA1C 02/27/1969 PNEUMOCOCCAL 0-64 YEARS COMBINED 02/27/1974 SERIES (1 of 1 - PPSV23) EYE EXAM 02/27/1978 LDL-C 02/27/1978 URINE MICROALBUMIN 02/27/1978 FOOT EXAM 02/27/1986 DTaP,Tdap,and Td Vaccines (1 - Tdap) 02/27/1987 Breast Cancer Screening (MAMMOGRAM) 2008 PAP SMEAR 01/31/2010 01/31/2007, 08/10/2005, 02/25/2005 CREATININE (SERUM) 2016 02/27/2015, 07/17/2014 COLONOSCOPY 02/27/2018 Zoster Recombinant Vaccine (SHINGRIX) 02/27/2018 (1 of 2) INFLUENZA VACCINE (#1) 2018 documented as of this encounter Procedures Procedure Name Priority Date/Time Associated Comments Diagnosis XR CHEST 1 VW STAT 04/26/2019 11:19 Epigastric pain Results for this PM [facility] procedure are in the results section. CBC WITH DIFFERENTIAL STAT 04/26/2019 11:13 Epigastric pain Results for this PM [facility] procedure are in the results section. URINALYSIS STAT 04/26/2019 11:13 Epigastric pain Results for this PM [facility] procedure are in the results section. CBC WITH DIFFERENTIAL STAT 04/26/2019 11:13 Epigastric pain Results for this PM [facility] procedure are in the results section. COMP. METABOLIC PANEL STAT 04/26/2019 11:13 Epigastric pain Results for this (71938) PM [facility] procedure are in the results section. LIPASE STAT 04/26/2019 11:13 Epigastric pain Results for this PM [facility] procedure are in the results section. EKG-12 LEAD Routine 04/26/2019 11:00 PM [facility] CONSENT/REFUSAL FOR Routine 04/26/2019 10:33 DIAGNOSIS AND PM [facility] TREATMENT documented in this encounter Results XR CHEST 1 VW (04/26/2019 11:19 PM [facility]ER) Specimen Impressions Performed At Impression: PACS/VR/DOSE No radiographic evidence of acute cardiopulmonary disease. RL: 109 AFC: [id number] Narrative Performed At Examination: Chest one view (portable frontal) PACS/VR/DOSE Ordering Physician: PATRICIA DAVIES History: epigastric pain Comparison: None available Findings: Single portable view of the chest is submitted for review. Overlying monitoring wires Pulmonary vascularity appears normal. The lungs are clear. There is no significant pleural effusion evident. There is no significant pneumothorax evident. Heart size is normal. Right upper quadrant clips consistent with prior cholecystectomy. Procedure Note [facility], Radiant Results Inft User - 04/26/2019 11:26 PM [facility]ER Examination: Chest one view (portable frontal) Ordering Physician: PATRICIA DAVIES History: epigastric pain Comparison: None available Findings: Single portable view of the chest is submitted for review. Overlying monitoring wires Pulmonary vascularity appears normal. The lungs are clear. There is no significant pleural effusion evident. There is no significant pneumothorax evident. Heart size is normal. Right upper quadrant clips consistent with prior cholecystectomy. IMPRESSION Impression: No radiographic evidence of acute cardiopulmonary disease. RL: 109 AFC: [id number] Performing Organization Address City/State/Zipcode Phone Number PACS/VR/DOSE CBC WITH DIFFERENTIAL (04/26/2019 11:13 PM CARROTER) WBC 4.48 4.30 - 11.10 [facility] 10*3/L [facility] RBC 4.18 3.93 - 5.25 [facility] 10*6/L [facility] HGB 12.0 11.6 - 15.0 [facility] g/dL [facility] HCT 36.2 35.7 - 45.2 % [facility] MCV 86.6 80.6 - 95.5 fL [facility] MCH 28.7 25.9 - 32.8 pg [facility] MCHC 33.1 31.6 - 35.1 [facility] g/dL [facility] RDW-SD 38.5 (L) 39.0 - 49.9 fL [facility] RDW-CV 12.1 12.0 - 15.5 % [facility] PLT 269 166 - 358 [facility] 10*3/L [facility] MPV 9.4 (L) 9.5 - 12.9 fL [facility] NRBC/100 WBC 0.0 0.0 - 10.0 /100 [facility] WBCs [facility] NRBC x10^3 <0.01 10*3/L [facility] GRAN MAT (NEUT) % 46.7 % [facility] IMM GRAN % 0.20 % [facility] LYMPH % 41.5 % [facility] MONO % 9.4 % [facility] EOS % 2.0 % [facility] BASO % 0.2 % [facility] GRAN MAT x10^3(ANC) 2.09 1.88 - 7.09 [facility] 10*3/uL [facility] IMM GRAN x10^3 <0.03 0.00 - 0.06 [facility] 10*3/uL [facility] LYMPH x10^3 1.86 1.32 - 3.29 [facility] 10*3/uL [facility] MONO x10^3 0.42 0.33 - 0.92 [facility] 10*3/uL [facility] EOS x10^3 0.09 0.03 - 0.39 [facility] 10*3/uL [facility] BASO x10^3 <0.03 0.01 - 0.07 [facility] 10*3/uL [facility] Specimen Blood - VENOUS Performing Organization Address City/[facility]/Zipcode Phone Number [facility] CLIA: [id number], [address] [place] [address] LIPASE (04/26/2019 11:13 PM CARROTER) LIPASE 181 0 - 220 U/L [facility] Specimen Blood - VENOUS Performing Organization Address City/[facility]/Zipcode Phone Number [facility] CLIA: [id number], [address] [place] [address] URINALYSIS (04/26/2019 11:13 PM CARROTER) Pathologist [facility] APPEARANCE Clear Clear [facility] COLOR Straw (A) Yellow [facility] PH 6.0 4.8 - 8.0 [facility] SP GRAVITY 1.023 1.003 - 1.030 [facility] GLU U QUAL 500 mg/dL (A) Normal [facility] BLOOD 3+ (A) Negative [facility] KETONES Negative Negative [facility] PROTEIN 100 mg/dL (A) Negative [facility] UROBILIN Normal Normal [facility] BILIRUBIN Negative Negative [facility] NITRITE Negative Negative [facility] LEUK ANGELY 250/uL (A) Negative [facility] RBC/HPF 48 (H) 0 - 3 HPF [facility] WBC/HPF 16 (H) 0 - 5 HPF [facility] BACTERIA Few (A) Negative [facility] MUCOUS Slight (A) Negative LPF [facility] SQ EPITH <1 HPF [facility] HYAL CAST 3 (H) <=2 LPF [facility] TRICHOMONA 1 <=1 HPF [facility] Specimen Urine - URINE, CLEAN CATCH Performing Organization Address City/State/Zipcode Phone Number [facility] CLIA: [id number], [address] [place] [address] COMP. METABOLIC PANEL ([id number]) (04/26/2019 11:13 PM CARROTER) Pathologist [facility] NA 139 135 - 145 [facility] mmol/L [facility] K 3.3 (L) 3.5 - 5.0 [facility] mmol/L [facility] CL 103 98 - 108 mmol/L [facility] CO2 TOTAL 30 23 - 31 mmol/L [facility] AGAP 6 2 - 16 [facility] BUN 17 7 - 23 mg/dL [facility] GLUCOSE 146 (H) 70 - 110 mg/dL [facility] CREATININE 0.53 0.50 - 1.04 [facility] mg/dL [facility] TOTAL BILI 0.2 0.1 - 1.1 mg/dL [facility] CALCIUM 9.1 8.6 - 10.6 [facility] mg/dL [facility] T PROTEIN 6.7 6.3 - 8.2 g/dL [facility] ALBUMIN 3.9 3.5 - 5.0 g/dL [facility] ALK PHOS 102 34 - 122 U/L [facility] ALTv 43 (H) 5 - 35 U/L [facility] AST(SGOT) 38 13 - 40 U/L [facility] eGFR Calculation 121.6 mL/min/1.73m2 [facility] ([facility] [place]) eGFR Calculation 147.4 mL/min/1.73m2 [facility] () [facility] Specimen Blood - VENOUS Narrative Performed At Association of Glomerular Filtration Rate (GFR) [facility] and Staging of Kidney Disease* + + +- + | GFR (mL/min/1.73 m2) | With Kidney Damage | Without Kidney Damage + + +- + | >90 | Stage one | Normal + + +- + | 60-89 | Stage two | Decreased GFR + + +- + | 30-59 | Stage three | Stage three + + +- + | 15-29 | Stage four | Stage four + + +- + | <15 (or dialysis) | Stage five | Stage five + + +- + *Each stage assumes the associated GFR level has been in effect for at least three months. Stages 1 to 5, with or without kidney disease, indicate chronic kidney disease. Notes: Determination of stages one and two (with eGFR >59mL/min/1.73 m2) requires estimation of kidney damage for at least three months as defined by structural or functional abnormalities of the kidney, manifested by either: Pathological abnormalities or Markers of kidney damage (including abnormalities in the composition of the blood or urine or abnormalities in imaging tests). Performing Organization Address City/State/Zipcode Phone Number [facility] CLIA: [id number], [address] [place] [address] documented in this encounter Visit Diagnoses Diagnosis Epigastric pain - Primary Abdominal pain, epigastric Flank pain Abdominal pain, unspecified site Urinary tract infection without hematuria, site unspecified documented in this encounter Insurance Payer Benefit Plan Subscriber ID Effective Dates Phone Address Type / Group [facility] [id number] 2018-Prese [phone] [address] PPO /POS [place] - OUT OF nt 7 [id number] [place] [address] [phone] [id number] (Work) documented as of this encounter
--- OUTSIDE RECORDS SUMMARY | 2019-05-24 06:32 | XMS REPORT | Summary of Care ---
:1970 Author Organization [facility] - [facility] Address [address] [place] [address] Care Team Providers Name Role Phone Jeet Manley MD Primary Care Provider Reason for Referral Radiology Services (STAT) Status Reason Specialty Diagnoses / Referred By Referred To Procedures Contact Contact New Request Diagnostic Diagnoses Epigastric pain Patricia Davies, Radiology Procedures XR CHEST 1 VW PAC [address] [place] [address] [place] [address] Reason for Visit Reason Comments Epigastric Pain Auth/Cert Status Reason Specialty Diagnoses / Referred By Referred To Procedures Contact Contact Emergency Medicine [facility] [address] [place] [address] [place] [address] Encounter Details Date Type Department Care Team Description 04/26/2019 - Emergency ADC-Emergency Patricia Davies, Epigastric pain ( Primary Dx); 04/27/2019 Department PAC Flank pain; [address] [place] [address] Urinary tract infection without hematuria, site unspecified [place], [place] [address] [place] [address] [phone] Allergies Active Allergy Reactions Severity Noted Date [...] Comments Blood Pressure 174/90 04/27/2019 12:00 AM [facility] [employer] Pulse 84 04/27/2019 12:00 AM [employer] Temperature 36.6 C (97.9 F) 04/26/2019 11:17 PM [employer] Respiratory Rate 15 04/27/2019 12:00 AM [employer] Oxygen Saturation 99% 04/27/2019 12:00 AM [employer] Inhaled Oxygen Concentration - - Weight 61.7 kg (136 lb) 04/26/2019 10:51 PM [employer] Height 157.5 cm (5' 2") 04/26/2019 10:51 PM [employer] Body Mass Index 24.87 04/26/2019 10:51 PM [employer] documented in this encounter Plan of Treatment Name Type Priority Associated Diagnoses Date/Time URINE CULTURE LAB STAT Epigastric pain 04/27/2019 12:41 AM [employer] Name Type Priority Associated Diagnoses Order Schedule [...] 11:19 Epigastric pain Results for this PM [employer] procedure are in the results section. CBC WITH DIFFERENTIAL STAT 04/26/2019 11:13 Epigastric pain Results for this PM [employer] procedure are in the results section. URINALYSIS STAT 04/26/2019 11:13 Epigastric pain Results for this PM [employer] procedure are in the results section. CBC WITH DIFFERENTIAL STAT 04/26/2019 11:13 Epigastric pain Results for this PM [employer] procedure are in the results section. COMP. METABOLIC PANEL STAT 04/26/2019 11:13 Epigastric pain Results for this ([id number]) PM [employer] procedure are in the results section. LIPASE STAT 04/26/2019 11:13 Epigastric pain Results for this PM [employer] procedure are in the results section. EKG-12 LEAD Routine 04/26/2019 11:00 PM [employer] CONSENT/REFUSAL FOR Routine 04/26/2019 10:33 DIAGNOSIS AND PM [employer] TREATMENT documented in this encounter Results XR CHEST 1 VW (04/26/2019 11:19 PM [employer]) Specimen Impressions Performed At Impression: PACS/VR/DOSE No radiographic evidence of acute cardiopulmonary disease. RL: 109 AFC: [id number] Narrative Performed At Examination: Chest one view [...] Results Inft User - 04/26/2019 11:26 PM [employer] Examination: Chest one view (portable frontal) Ordering [...] of acute cardiopulmonary disease. RL: 109 AFC: [id number] Performing Organization Address City/State/Zipcode Phone Number PACS/VR/DOSE CBC WITH DIFFERENTIAL (04/26/2019 11:13 PM [employer]) WBC 4.48 4.30 - 11.10 [facility] 10*3/L [facility] RBC 4.18 3.93 - 5.25 [facility] 10*6/L [facility] HGB 12.0 11.6 - 15.0 [facility] g/dL [facility] HCT 36.2 35.7 - 45.2 % [facility] MCV 86.6 80.6 - 95.5 fL [facility] MCH 28.7 25.9 - 32.8 pg [facility] MCHC 33.1 31.6 - 35.1 [facility] g/dL [facility] RDW-SD 38.5 (L) 39.0 - 49.9 fL [facility] RDW-CV 12.1 12.0 - 15.5 % [facility] PLT 269 166 - 358 [facility] 10*3/L [facility] MPV 9.4 (L) 9.5 - 12.9 fL [facility] NRBC/100 WBC 0.0 0.0 - 10.0 /100 [facility] WBCs [facility] NRBC x10^3 <0.01 10*3/L [facility] GRAN MAT (NEUT) % 46.7 % [facility] IMM GRAN % 0.20 % [facility] LYMPH % 41.5 % [facility] MONO % 9.4 % [facility] EOS % 2.0 % [facility] BASO % 0.2 % [facility] GRAN MAT x10^3(ANC) 2.09 1.88 - 7.09 [facility] 10*3/uL [facility]ITAL [facility] IMM GRAN x10^3 <0.03 0.00 - 0.06 [facility] 10*3/uL [facility] LYMPH x10^3 1.86 1.32 - 3.29 [facility] 10*3/uL [facility] MONO x10^3 0.42 0.33 - 0.92 [facility] 10*3/uL [facility]ITAL [facility] EOS x10^3 0.09 0.03 - 0.39 [facility] 10*3/uL [facility] BASO x10^3 <0.03 0.01 - 0.07 [facility] 10*3/uL [facility] Specimen Blood - VENOUS Performing Organization Address City/[facility]/Zipcode Phone Number [facility] CLIA: [id number], [address] [place] [address] LIPASE (04/26/2019 11:13 PM [employer]) LIPASE 181 0 - 220 U/L [facility] Specimen Blood - VENOUS Performing Organization Address City/[facility]/Zipcode Phone Number [facility] CLIA: [id number], [address] [place] [address] URINALYSIS (04/26/2019 11:13 PM [employer]) Pathologist [facility] APPEARANCE Clear Clear [facility] COLOR Straw (A) Yellow [facility] PH 6.0 4.8 - 8.0 [facility] SP GRAVITY 1.023 1.003 - 1.030 [facility] GLU U QUAL 500 mg/dL (A) Normal [facility] BLOOD 3+ (A) Negative [facility] KETONES Negative Negative [facility] PROTEIN 100 mg/dL (A) Negative [facility] UROBILIN Normal Normal [facility] BILIRUBIN Negative Negative [facility] NITRITE Negative Negative [facility] LEUK ANGELY 250/uL (A) Negative [facility] RBC/HPF 48 (H) 0 - 3 HPF [facility] WBC/HPF 16 (H) 0 - 5 HPF [facility] BACTERIA Few (A) Negative [facility] MUCOUS Slight (A) Negative LPF [facility] SQ EPITH <1 HPF [facility] HYAL CAST 3 (H) <=2 LPF [facility] TRICHOMONA 1 <=1 HPF [facility] Specimen Urine - URINE, CLEAN CATCH Performing Organization Address City/State/Zipcode Phone Number [facility] CLIA: [id number], [address] [place] [address] COMP. METABOLIC PANEL ([id number]) (04/26/2019 11:13 PM [employer]) Pathologist [facility] NA 139 135 - 145 [facility] mmol/L [facility] K 3.3 (L) 3.5 - 5.0 [facility] mmol/L [facility] CL 103 98 - 108 mmol/L [facility] CO2 TOTAL 30 23 - 31 mmol/L [facility] AGAP 6 2 - 16 [facility] BUN 17 7 - 23 mg/dL [facility] GLUCOSE 146 (H) 70 - 110 mg/dL [facility] CREATININE 0.53 0.50 - 1.04 [facility] mg/dL HOSPITAL [facility] TOTAL BILI 0.2 0.1 - 1.1 mg/dL [facility] CALCIUM 9.1 8.6 - 10.6 [facility] mg/dL [facility] T PROTEIN 6.7 6.3 - 8.2 g/dL [facility] ALBUMIN 3.9 3.5 - 5.0 g/dL [facility] ALK PHOS 102 34 - 122 U/L [facility] ALTv 43 (H) 5 - 35 U/L [facility] AST(SGOT) 38 13 - 40 U/L [facility] eGFR Calculation 121.6 mL/min/1.73m2 [facility] ([facility] LABORATORY [place]) eGFR Calculation 147.4 mL/min/1.73m2 [facility] () [facility] Specimen Blood - VENOUS Narrative Performed At [facility] of Glomerular Filtration Rate (GFR) [facility] and Staging of Kidney Disease* + [...] tests). Performing Organization Address City/State/Zipcode Phone Number [facility] CLIA: [id number], [address] [place] [address] documented in this encounter Visit Diagnoses Diagnosis Epigastric pain - Primary Abdominal pain, epigastric Flank pain Abdominal pain, unspecified site Urinary tract infection without hematuria, site unspecified documented in this encounter Insurance Payer Benefit Plan Subscriber ID Effective Dates Phone Address Type / Group [facility] [id number] 2018-Prese [phone] [address] PPO /POS [place] - OUT OF nt 7 [id number] [place] [address] [phone] (Work) documented as of this encounter
--- OUTSIDE RECORDS SUMMARY | 2019-05-24 06:32 | XMS REPORT | Summary of Care ---
:1970 Author Organization [facility] Address [address] [place] [address] Care Team Providers Name Role Phone Jeet Fishman MD Primary Care Provider Reason for Referral (Routine) Status Reason Specialty Diagnoses / Referred By Referred To Procedures Contact Contact New Request Diagnoses Urinary tract infection without hematuria, site unspecified Jude Butts Paul Procedures Discharge Follow-up: PCP JEET FISHMAN; 1 Week MD Benson Norwood MD [address] [place] [address] [address] [facility] [place], [place] [address] [place], [place] Phone: [phone] Phone: MRI/CAT Scan (STAT) Status Reason Specialty Diagnoses / Referred By Referred To Procedures Contact Contact New Request Diagnostic Diagnoses Nephrolithiasis Benjamín, Radiology Procedures CT ABDOMEN PELVIS WO CONTRAST Jude Norwood MD [address] [place] [phone] Reason for Visit Reason Comments Referral/consult Auth/Cert Status Reason Specialty Diagnoses / Referred By Referred To Procedures Contact Contact Emergency Medicine [facility] [address] [place] [phone] Encounter Details Date Type Department Care Team Description 04/27/2019 Emergency [facility] Nephrolithiasis (Primary Dx); [address] [place] [address] Urinary tract infection without hematuria, [place] [address] Allergies Active Allergy Reactions Severity Noted Date Comments Tramadol Itching 08/10/2016 documented as of this encounter (statuses as of 04/27/2019) Medications Medication Sig Dispensed Refills Start Date End Date Status glyBURIDE-metform Take 1 Tab by 0 Active in (GLUCOVANCE) mouth 2 (two) 5-500 mg tablet times daily with meals. Pt reports due to financial reasons she is unable to take her diabetic medications and has not since December. ibuprofen Take 800 mg by 0 Active (MOTRIN) 800 mg mouth every 6 tabletIndications (six) hours as : takes it once a needed. day 3 times a Indications: week takes it once a day 3 times a week fluticasone Use in each 0 Active (FLONASE) 50 nostril daily. mcg/actuation nasal spray benzocaine-mentho Apply 1 Lozenge 30 Lozenge 0 08/10/2016 Active l (CEPACOL SORE as directed every THROAT, 2 (two) hours as JESSICA-MEN,) 15-2.6 needed for Pain mg Lozg (scale 1-3). fluconazole Take one dose 2 tablet 0 08/10/2016 Active (DIFLUCAN) 150 mg today and the tablet second in one week ibuprofen 600 mg Take 1 tablet by 20 tablet 0 12/16/2018 Active tabletIndications mouth every 6 : Toe pain, left (six) hours as needed for Pain (scale 1-3). sulfamethoxazole- Take 1 tablet by 14 tablet 0 04/27/2019 Active trimethoprim mouth 2 (two) 0 (BACTRIM DS) times daily for 7 800-160 mg per days. tabletIndications : Urinary tract infection without hematuria, site unspecified sulfamethoxazole- Take 1 tablet by 14 tablet 0 03/16/2016 Discontinued trimethoprim mouth every 12 0 800-160 mg per (twelve) hours. tablet traMADOL (ULTRAM) Take 1 tablet by 20 tablet 0 03/16/2016 Discontinued 50 mg tablet mouth every 6 0 (six) hours as needed for Pain (scale 7-10) or Pain unrelieved by non-narcotic analgesics. documented as of this encounter (statuses as [...] Sign Reading Time Taken Comments Blood Pressure 123/65 04/27/2019 6:07 AM MOTOR TESTER Pulse 83 04/27/2019 6:07 AM MOTOR TESTER Temperature 36.8 C (98.2 F) 04/27/2019 6:07 AM MOTOR TESTER Respiratory Rate 16 04/27/2019 6:07 AM MOTOR TESTER Oxygen Saturation 98% 04/27/2019 6:07 AM MOTOR TESTER Inhaled Oxygen Concentration - - Weight 61.7 kg (136 lb) 04/27/2019 2:16 AM MOTOR TESTER Height - - Body Mass Index 24.87 04/26/2019 10:51 PM MOTOR TESTER documented in this encounter Plan of Treatment Name Type Priority Associated Diagnoses Date/Time CT ABDOMEN PELVIS WO IMAGING STAT Nephrolithiasis 04/27/2019 3:24 AM MOTOR TESTER CONTRAST Health Maintenance Due Date Last Done Comments HgA1C 02/27/1969 PNEUMOCOCCAL 0-64 YEARS COMBINED 02/27/1974 SERIES (1 of 1 - PPSV23) EYE EXAM 02/27/1978 LDL-C 02/27/1978 URINE MICROALBUMIN 02/27/1978 DTaP,Tdap,and Td Vaccines (1 - Tdap) 02/27/1979 FOOT EXAM 02/27/1986 Breast Cancer Screening (MAMMOGRAM) 2008 PAP SMEAR 01/31/2010 01/31/2007, 08/10/2005, 02/25/2005 COLONOSCOPY 02/27/2018 Zoster Recombinant Vaccine (SHINGRIX) 02/27/2018 (1 of 2) INFLUENZA VACCINE (#1) 2018 CREATININE (SERUM) 04/26/2020 04/26/2019, 02/27/2015, 07/17/2014 documented as of this encounter Procedures Procedure Name Priority Date/Time Associated Diagnosis Comments CT ABDOMEN PELVIS WO STAT 04/27/2019 3:24 AM MOTOR TESTER Nephrolithiasis CONTRAST Procedure Note - [facility], Radiant Results Inft User - 04/27/2019 3:37 AM MOTOR TESTER EXAM: CT ABDOMEN AND PELVIS WITH CONTRAST HISTORY: possible renal stone COMPARISON: None. DOSE: Up-to-date CT equipment and radiation dose reduction techniques were employed. DLP: 448 mGy-cm TECHNIQUE AND FINDINGS: Contiguous axial imaging from the level of the lung bases through the pubic symphysis was performed without contrast.. Coronal and sagittal reconstructions were obtained. FINDINGS: LOWER THORAX: The lungs bases are clear. . LIVER: No focal hepatic lesions. No biliary ductal dilation. GALLBLADDER AND BILIARY TREE: No biliary ductal dilation. Prior cholecystectomy. SPLEEN: No splenomegaly. PANCREAS: No ductal dilation or masses. ADRENAL GLANDS: No adrenal nodules. KIDNEYS: Mild hydronephrosis is appreciated. No obstructing renal stone. A 3 mm non-obstructing renal stone in the left superior pole. No masses. PERITONEUM AND RETROPERITONEUM: No free air or fluid. LYMPH NODES: No lymphadenopathy. GI TRACT: No dilation or wall thickening. Large stool burden. The appendix is normal (3:58). PELVIS/BLADDER: No bladder stones identified. The bladder is well distended and unremarkable.. VESSELS: Unremarkable. BONES AND SOFT TISSUES: No suspicious lytic or sclerotic bony lesions. IMPRESSION Mild right hydronephrosis. No obstructing renal stone. Recent stone passage could may be the cause. A close follow-up CT urogram is to ensure resolution and exclude alternative cause of obstruction such as neoplasia. Large stool burden. Nonobstructing left renal stone. Preliminary Report Dictated by Resident: Ora Galo documented in this encounter Results Not on filedocumented in this encounter Visit Diagnoses Diagnosis Nephrolithiasis - Primary Calculus of kidney Urinary tract infection without hematuria, site unspecified documented in this encounter Administered Medications Medication Order MAR Action Action Date Dose Rate Site acetaminophen (TYLENOL) tablet 325 mg 325 mg, Oral, Q6HPRN, Starting Tue04/27/19 at 0246, Until Discontinued, Routine , Pain (scale 1-3) ibuprofen (IBU) tablet 400 mg Given 04/27/2019 3:51 AM MOTOR TESTER 400 mg 400 mg, Oral, Q6HPRN, Starting Tue04/27/19 at 0246, Until Discontinued, Routine, pain ketorolac (TORADOL) injection 30 mg Given 04/27/2019 3:07 AM MOTOR TESTER 30 mg 30 mg, Slow IV Push, Q6HPRN, 4 doses, Starting Tue04/27/19 at 0247, Until Discontinued, Routine, Pain (scale 4-6), 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
[2019-05-24] MEDS ORDERED: NA CHLORIDE 0.9% 1,000 ML ONE ×2 (06:53→07:48)
[2019-05-24] MEDS ORDERED: FENTANYL CITR 100 MCG/2 ML ONE (07:33)
[2019-05-24] MEDS ORDERED: propofoL 200 MG/20 ML VIAL IV ONE (07:33)
[2019-05-24] MEDS ORDERED: MIDAZOLAM HCL 2 MG/2 ML INJ ONE (07:33)
[2019-05-24] MEDS ORDERED: LIDOCAINE 1% W/EPI 1:100,000 MDV 20 ML VIAL ONE (07:49)
[2019-05-24] MEDS ORDERED: ONDANSETRON 4 MG/2 ML VIAL ONE (08:41)
[2019-05-24 09:17] VITALS: BP 142/71; TEMP 97.8; O2SAT 99
--- NOTE | 2019-05-24 10:55 | OP ---
Date of Procedure: 05/24/2019 Surgeon: Stephania London MD Cold Water Machine Operator: None. Preoperative Diagnosis: Postmenopausal bleeding. Postoperative Diagnosis: Postmenopausal bleeding. Procedure Performed: Hysteroscopy, dilation and curettage. Anesthesia: General. Specimens: Endometrial curettings. Complications: None. Drains: None. Condition: The patient's condition is stable. Findings: Uterine cavity empty, anteflexed, slightly deviated to the left. No abnormalities in the endometrium. Endometrial sample was adequate. Description Of Procedure: After informed consent was verified, the patient was taken back to the OR. Her fingerstick was 136. She took 10 units which is half her morning dose this morning. General a nesthesia was given with LMA placed in dorsal lithotomy position. Vulva, vagina, and perineum preppe d and draped in a sterile fashion. Speculum placed to expose the cervix. Anterior lip was grasped w ith 2 Allis clamps. Diagnostic SlimLine hysteroscope used to enter the cervical canal and uterine ca vity under direct vision. Cavity empty, endometrium unremarkable. Both tubal ostia were visualized. Scope removed, endometrial curettings performed after dilating the cervix to 14-Chilean. Adequate s ample was retrieved, was sent out for permanent pathology. All the instruments were removed. Instru ment, needle, and sponge counts were correct at the end of the case, tolerated the procedure well. S he will follow up results appointment in 1 week. She was instructed to take her before meals insulin 6 units as directed after checking her fingersticks and diet counseling was performed. PAWAN/WOOD Voice ID: [id number] Report ID: [id number]
== END 2019-05-24 10:58 | disposition home or self-care (01) ==
LOC: OR 06:23
PROVIDERS: ATTEND Obstetrics & Gynecology
PROC: 0UJD8ZZ Inspection of Uterus and Cervix, Via Natural or Artificial Opening Endoscopic (ICD-10-PCS; 2019-05-24)
PROC: 0UDB7ZX Extraction of Endometrium, Via Natural or Artificial Opening, Diagnostic (ICD-10-PCS; principal; 2019-05-24 07:30)
DX: N95.0 Postmenopausal bleeding (principal); I10 Essential (primary) hypertension; E11.65 Type 2 diabetes mellitus with hyperglycemia; E03.9 Hypothyroidism, unspecified; K21.9 Gastro-esophageal reflux disease without esophagitis; Z88.6 Allergy status to analgesic agent
CPT/HCPCS: 81025; 82947 ×2; 88305; 58558; J2704; J2250; J3010; J7030 ×2; J2405

== ENCOUNTER 2019-12-28 07:44 | Observation (INO) | payer BC ==
--- OUTSIDE RECORDS SUMMARY | 2019-12-28 07:49 | XMS REPORT | Continuity of Care Document ---
:1970 Author Organization [facility] Address [address] [place] [address] Care Team Providers Name Role Phone Pob, Lab Main Attending Clinician Unavailable Doctor Unassigned, Name Attending Clinician Unavailable Marilee VILCHIS, Sarah Attending Clinician Jcarlos RIVAS, M Attending Clinician Shawn VILCHIS, S Attending Clinician Karma VILCHIS Attending Clinician Kim GERMAN, S Attending Clinician Karma VILCHIS Admitting Clinician Payers Payer Name Policy Type Policy Number Effective Date Expiration Date S ource Problems Condition Condition Condition Status Onset Resolution Last Treating Co mments Source Name Details Category Date Date Treatment Clinician Date Essential Essential Problem Active Bert summer hypertensi Hypertensi 5-21 Fa mary ann on on 00:00: Practic 00 e Gastropare Gastropare Problem Active [facility] ill[facility] sis sis 07-25 Family syndrome Syndrome 00:00: Practi c 00 e Hyperlipid Hyperlipid Problem Active [facility] emia emia 8-11 Family 00:00: Practic 00 e Hypothyroi Hypothyroi Problem Active [facility] dism dism 7 Family 00:00: Practic 00 e Retinopath Retinopath Problem Active [facility] y due to y Due to 09-12 Family type 2 Type 2 00:00: Practic diabetes Diabetes 00 e mellitus Mellitus Allergies, Adverse Reactions, Alerts Allergy Allergy Status Severity Reaction(s) Onset Inactive Treating Comm ents Source Name Type Date Date Clinician No Known DA Active U 2019-0 [facility] 08-22 [facility] Metformi Allergy Active Diarrhea [place] ge n to Family substanc Practic e e Ramipril Allergy Active Rash [place] to Family substanc Practic e e Tramadol Allergy Active Hives [place] to Family substanc Practic e e Social History Smoking Status Start Date Stop Date Source Never Smoker [facility] Medications Ordered Filled Start Stop Current Ordering Indication Dosage Frequency Signature Comments Components Source Medication Medication Date Date Medication? Clinician (SIG) Name Name Adult Adult No 1 Q1D Adult [facility] Aspirin Aspirin Aspirin Family Regimen 81 Regimen 81 Regimen 81 Practic mg mg mg e tablet,mary tablet,mary tablet,del yed release yed release ayed Take 1 Take 1 release tablet tablet Take 1 every day every day tablet by oral by oral every day route. route. by oral route. bumetanide bumetanide No 1 BID bumetanide [facility] 2 mg tablet 2 mg tablet 2 mg F amily Take 1 Take 1 tablet Practic tablet tablet Take 1 e twice a day twice a day tablet by oral by oral twice a route. route. day by oral route. FreeStyle FreeStyle No FreeStyle [facility] Tea 14 Tea 14 Tea 14 Fam calderon Day Sensor Day Sensor Day Sensor Practic e metolazone metolazone No 1 Q3.5D metolazone [facility] 5 mg tablet 5 mg tablet 5 mg F amily Take 1 Take 1 tablet Practic tablet tablet Take 1 e twice a twice a tablet week by week by twice a oral route. oral route. week by oral route. Novolog Novolog No Novolog Villag e Flexpen Flexpen Flexpen Family U-100 U-100 U-100 Practic Insulin Insulin Insulin e aspart 100 aspart 100 aspart 100 unit/mL (3 unit/mL (3 unit/mL (3 mL) mL) mL) subcutaneou subcutaneou subcutaneo s Use s Use us Use before before before meals as meals as meals as needed needed needed using CF using CF using CF 1:30; TDD 1:30; TDD 1:30; TDD 40 40 40 CELEBRITY CHEF ENTREPRENEUR MEDIA PERSONALITY Thyroid CELEBRITY CHEF ENTREPRENEUR MEDIA PERSONALITY Thyroid No 1 Q1D CELEBRITY CHEF ENTREPRENEUR MEDIA PERSONALITY Thyroid [place] 30 mg 30 mg 30 mg Family tablet Take tablet Take tablet Practic 1 tablet 1 tablet Take 1 e every day every day tablet by oral by oral every day route. route. by oral route. Tradjenta 5 Tradjenta 5 No 1 Q1D Tradjenta [place] mg tablet mg tablet 5 mg Famil y Take 1 Take 1 tablet Practic tablet tablet Take 1 e every day every day tablet by oral by oral every day route in route in by oral the morning the morning route in for 30 for 30 the days. days. morning for 30 days. Tresiba Tresiba No 30unit( Q1D Tresiba Bert jefferye FlexTouch FlexTouch s) FlexTouch Family U-200 U-200 U-200 Practic insulin 200 insulin 200 insulin e unit/mL (3 unit/mL (3 200 mL) mL) unit/mL (3 subcutaneou subcutaneou mL) s pen s pen subcutaneo Inject 30 Inject 30 us pen units every units every Inject 30 day by day by units subcutaneou subcutaneou every day s route in s route in by the the subcutaneo morning. morning. us route in the morning. Vitamin D3 Vitamin D3 No Vitamin D3 [facility] 1000 IU 1000 IU 1000 IU [facility] DAILY DAILY DAILY Practic e Vital Signs Vital Name Observation Time Observation Value Comments Source BP Diastolic 2019-12-24 00:00:00 78 mm[Hg] [facility] Height 2019-12-24 00:00:00 62 [in_i] [facility] BMI (Body Mass 2019-12-24 00:00:00 31.5 kg/m2 [facility] Practice BP Systolic 2019-12-24 00:00:00 110 mm[Hg] [facility] Body Weight 2019-12-24 00:00:00 172 [lb_av] [facility] Procedures This patient has no known procedures. Plan of Care Planned Activity Planned Date Details Comments Source Diagnostic Test 2019-12-24 glucose, fingerstick, Bert Gould Pending 00:00:00 blood [code = Practice glucose, fingerstick, blood] Diagnostic Test 2019-12-24 hemoglobin A1C, [facility] Jamison stewart Pending 00:00:00 fingerstick [code = Practice hemoglobin A1C, fingerstick] Future Appointment 2020-01-29 Samm Alexander, [facility] 09:00:00 [place]; Veroti alfredo [facility] [address], [place] [address] Future Appointment 2020-01-24 Samm Alexander, [facility] 00:00:00 Shadow [facility]; Veroti ce [facility] [address], [place] [address] Future Appointment 2020-01-04 Aleyda [facility] 16:00:00 [place]; Practi ce [facility] [address], [place] [address] Encounters Start End Encounter Admission Attending Care Care Encounter Source Date/Time Date/Time Type Type Clinicians Facility Department ID 2019-12-24 2019-12-24 Samm NASH [place] - [id number] [facility] ill[facility] 00:00:00 00:00:00 Jie [facility] Family Alexander, Medical - Eleazar sanz MD: [id number] VM_HOU_Alphonse nix Shadow [facility], [facility] [address], [place] [address] , Ph. 2019-12-18 2019-12-18 Swing Tender Makayla [facility] [id number] 07:41:51 07:56:51 Visit Lab Main [place] [id number] [place] 4.2.7.2.686 Professio [id number] [address] 2019-11-08 2019-11-08 Swing Tender Angus Benavides [facility] [id number] 13:23:04 13:38:04 Visit Lab Main [place] [id number] [place] 4.2.7.2.686 Professio [id number] [address] 2019-11-08 2019-11-08 Orders Doctor SANDOVAL [id number] 00:00:00 00:00:00 Only Unassigned, KRISTAN [id number] [place] [facility] 4.2.7.2.686 [id number] 2019-10-04 2019-10-04 [facility] [id number] 10:10:00 23:59:00 Encounter Susie Reynolds [id number] [place] 4.2.7.2.686 [place] [id number] 2019-10-04 2019-10-04 Swing Tender Makayla [facility] [id number] 10:15:33 10:30:33 Visit Lab Main [place] [id number] [place] [id number] Professio [id number] [address] 2019-08-03 2019-08-03 Swing Tender Makayla [facility] 1.2.840.114 [id number] 09:58:47 10:13:47 Visit Lab Main [place] [id number] [place] 4.2.7.2.686 Professio [id number] [address] 2019-08-03 2019-08-03 Orders Doctor LORI 1.2.840.114 [id number] 00:00:00 00:00:00 Only Unassigned, KRISTAN [id number] [place] [facility] 4.2.7.2.686 [id number] 2019-06-06 2019-06-06 Transition Yvette Garber 1.2.840.114 [id number] 00:00:00 00:00:00 of Care Yazmin Brito [id number] [place] 4.2.7.2.686 [id number] 2019-06-03 2019-06-05 [facility] 1.2.840. 114 [id number] 20:41:23 12:45:00 Encounter Petra Parada [id number] [place] 4.2.7.2.686 [place] [id number] 2019-04-27 2019-04-27 Emergency TRAUMA [id number] 02:15:54 06:35:00 CENTER [id number] 4.2.7.2.686 [id number] 2019-04-26 2019-04-27 Emergency Kim [facility] [id number] 22:52:50 01:20:00 Patricia Reynolds [id number] [place] 4.2.7.2.686 [place] [id number] Results Test Description Test Time Test Comments Results Result Comments Source BASIC METABOLIC PANEL 2019-08-23 18:36:00 Test Item Value Reference Range Interpretation Comme nts SODIUM (test code = NA) 138 mmol/L 134-147 N POTASSIUM (test code = K) 3.7 mmol/L 3.4-5.0 N CHLORIDE (test code = CL) 101 mmol/L 100-108 N CARBON DIOXIDE (test code = CO2) 32 mmol/L 21-32 N ANION GAP (test code = GAP) 5.0 GAP calc 4.0-15.0 N GLUCOSE (test code = GLU) 188 MG/DL 70-110 H BLOOD UREA NITROGEN (test code = BUN) 49 MG/DL 7-18 H GLOMERULAR FILTRATION RATE (test code = GFR) 46 estGFR >60 L CREATININE (test code = CREAT) 1.3 MG/DL 0.6-1.0 H CALCIUM (test code = CA) 8.7 MG/DL 8.5-10.1 N Completed by Nursing: NONT PRO-BRAIN NATRIURETIC [id number] 18:36:00 Test Item Value Reference Range Interpretation Comments NT PRO-BRAIN NATRIURETIC PEPTI 368 PG/ML 0-100 H (test code = PROBNP) Completed by Nursing: [id number] 18:36:00 Test Item Value Reference Range Interpretation Comments TROPONIN-I (test < 0.015 NG/ML 0.000-0.045 N Negative: </= 0.045 code = TROPI) Positive: >/= 0.046 Correlation wit h serial results, other cardiac markers, and cl inical findings is nec essary to determine the c linical significance of this result. Quantit ative results using d ifferent methodologies s hould not be compared to one another as nume rical results may surekha yby method. Completed by Nursing: NODRUGS OF ABUSE SCREEN [id number] 18:36:00 Test Item Value Reference Range Interpretation Comments URN COCAINE (test code = NEGATIVE SCcutoff <300 NG/ML COCAURN) URN CANNABINOIDS (test code NEGATIVE SCcutoff <50 NG/ML = CANNABURN) URN AMPHETAMINE (test code NEGATIVE SCcutoff <1000 NG/ML = AMPHETURN) URN BARBITURATE (test code NEGATIVE SCcutoff <200 NG/ML = BARBITURN) URN BENZODIAZEPINE (test NEGATIVE SCcutoff <200 NG/ML code = BENZOURN) URN OPIATES (test code = NEGATIVE SCcutoff <2000 NG/ML OPIATURN) URN PHENCYCLIDINE (PCP) NEGATIVE SCcutoff <25 NG/ML (test code = PHENCURN) URN METHADONE (test code = NEGATIVE SCcutoff <300 NG/ML METHAURN) BASIC METABOLIC [id number] 18:32:00 Test Item Value Reference Range Interpretation Comments SODIUM (test code = NA) 138 mmol/L 134-147 N POTASSIUM (test code = K) 3.7 mmol/L 3.4-5.0 N CHLORIDE (test code = CL) 101 mmol/L 100-108 N CARBON DIOXIDE (test code = CO2) 32 mmol/L 21-32 N ANION GAP (test code = GAP) 5.0 GAP calc 4.0-15.0 N GLUCOSE (test code = GLU) 188 MG/DL 70-110 H BLOOD UREA NITROGEN (test code = 49 MG/DL 7-18 H BUN) GLOMERULAR FILTRATION RATE (test estGFR >60 code = GFR) CREATININE (test code = CREAT) MG/DL 0.6-1.0 CALCIUM (test code = CA) 8.7 MG/DL 8.5-10.1 N Completed by Nursing: NONT PRO-BRAIN NATRIURETIC [id number] 18:32:00 Test Item Value Reference Range Interpretation Comments NT PRO-BRAIN NATRIURETIC PEPTI (test PG/ML 0-100 code = PROBNP) Completed by Nursing: [id number] 18:32:00 Test Item Value Reference Range Interpretation Comments TROPONIN-I (test code = TROPI) NG/ML 0.000-0.045 Completed by Nursing: NOCBC W/AUTO [id number] 18:20:00 Test Item Value Reference Range Interpretation Comments WHITE BLOOD CELL (test code = 6.1 K/mm3 3.5-11.0 N WBC) RED BLOOD CELL (test code = 4.12 M/mm3 4.70-6.10 L RBC) HEMOGLOBIN (test code = HGB) 11.8 G/DL 10.4-14.9 N HEMATOCRIT (test code = HCT) 36.4 % 31.5-44.1 N MEAN CELL VOLUME (test code = 88.3 Fl 84.5-98.6 N MCV) MEAN CELL HGB (test code = MCH) 28.6 pg 27.0-34.2 N MEAN CELL HGB CONCETRATION 32.4 G/DL 31.5-34.0 N (test code = MCHC) RED CELL DISTRIBUTION WIDTH 12.8 SD 11.5-14.5 N (test code = RDW) PLATELET COUNT (test code = 303 K/mm3 150-450 N PLT) MEAN PLATELET VOLUME (test code 9.70 fL 7.0-10.5 N = MPV) NEUTROPHIL % (test code = NT%) 66.5 % 40-76 N LYMPHOCYTE % (test code = LY%) 22.1 % 20.5-51.1 N MONOCYTE % (test code = MO%) 7.9 % 1.7-9.3 N EOSINOPHIL % (test code = EO%) 2.5 % 0.0-6.0 N BASOPHIL % (test code = BA%) 0.5 % 0.0-2.0 N NUCLEATED RBC % (test code = 0.0 /100WBC% 0.0-1.0 N NRBC%) NEUTROPHIL # (test code = NT#) 4.0 K/mm3 1.8-7.6 N IMMATURE GRANULOCYTE # (test 0.03 x10 3/uL 0.00-0.03 N code = IG#) LYMPHOCYTE # (test code = LY#) 1.3 K/mm3 0.6-3.2 N MONOCYTE # (test code = MO#) 0.5 K/mm3 0.3-1.1 N EOSINOPHIL # (test code = EO#) 0.2 K/mm3 0.0-0.4 N BASOPHIL # (test code = BA#) 0.0 K/mm3 0.0-0.1 N NUCLEATED RBC # (test code = 0.0 K/mm3 0.0-0.1 N NRBC#) MANUAL DIFF REQUIRED (test code NO DIFF/SCN CRITERIA = MDIFF) - CT HEAD/BRAIN W/O [id number] 17:04:00 Name: MORELIA ROMEO [facility] : 1970 Age/S: 49 / F [id number] [place] Unit #: [id number] Loc: [place] [address] Phys: Domenica Quinn MD Acct: [id number] Dis Date: Status: PRE ER PHONE #: [phone] Exam Date: 08/23/2019 2460 FAX #: Reason: syncope EXAMS: CPT: [id number] CT HEAD/BRAIN W/O CONT 63440 INDICATIONS: syncope TECHNIQUE: Contiguous axial CT sections were obtained from the skull base to the vertex without intravenous contrast administration. CT DLP dose: 804 mGy centimeters. Iterative dose reduction technique utilized. Location: [id number]: None available. FINDINGS: The brain parenchyma is unremarkable. The septumpellucidum and third ventricle are midline. The ventricles are normal in size, shape and position. There is no evidence of acute intracranial hemorrhage, acute infarction, or an intracranial mass lesion. The skull and extracranial soft tissues are grossly within normal limits. Vascular calcifications are seen in the carotid siphons. IMPRESSION: 1. No evidence of acute intracranial abnormality. 2. Specifically, no evidence of hemorrhage, mass or stroke. at 1704 Reported and signed by: Miguel Cramer M.D. CC: Domenica Quinn MD; Ly JOSE; Jeet Manley MD Technologist:Praveena Lora, RT(R)(CT) CTDI: DLP: Trnscb Date/Time: 08/23/2019 (170) [id number] Orig Print D/T: S: 08/23/2019 (0076) PAGE 1 Signed Report
--- OUTSIDE RECORDS SUMMARY | 2019-12-28 07:50 | XMS REPORT | Summary of Care ---
:1970 Author Organization [facility] Address [address] [place] [address] Care Team Providers Name Role Phone Jeet Manley MD Primary Care Provider Reason for Referral Radiology Services (Routine) Status Reason Specialty Diagnoses / Procedures Referred By Sagar eferred To Contact Contact Closed Diagnostic Diagnoses Chronic kidney disease, stage III (moderate) Localized edema Susie Hunt Radiology Procedures US RETROPERITONEAL JESSENIA Smith MD [address] [place] [address] [place] [address] Reason for Visit Auth/Cert Status Reason Specialty Diagnoses / Procedures Referred By Cheryl ontsusana Referred To Contact Phlebotomy Diagnoses r60.0 Adc Pob Lab Draw Procedures CBC/DIFFERENTIAL (NO PLATELET)- Professional Office Building [address] [place] [address] [address], [address] [place] [address] Phone: Fax: Encounter Details Date Type Department Care Team Description 10/04/2019 Hospital Encounter [facility] Sammie Hunt Arrived [facility] MD [address] [place] [address] [address] martinez [address] [place] [address] [place] [address] [place] [address] Allergies Active Allergy Reactions Severity Noted Date Comments Tramadol Itching 08/10/2016 documented as of this encounter (statuses as of 10/05/2019) Medications Medication Sig Dispensed Refills Start Date End Date Status thyroid (ARMOUR Take 15 mg by mouth 0 Active THYROID) 30 mg every morning. tablet insulin lispro inject under the 0 Active (HUMALOG KWIKPEN skin. Indications: INSULIN "just give 2 more SC)Indications: units each time if "just give 2 more it stays up." units each time if it stays up." flash glucose 1 Applicatorful 4 1 Each 2 06/05/2019 Active scanning reader (four) times daily. (FREESTYLE YASH 14 Check glucose QID as DAY READER) directed MiscIndications: Generalized abdominal pain, Acute pulmonary edema flash glucose sensor 1 Applicator 4 1 Kit 2 06/05/2019 Active (FREESTYLE YASH 14 (four) times daily. DAY SENSOR) KitIndications: Generalized abdominal pain, Acute pulmonary edema furosemide 40 mg Take 40 mg po bid x 40 tablet 0 06/05/2019 Active tabletIndications: 3d then 40 mg qd Generalized abdominal pain, Acute pulmonary edema KCL 20 mEq Take 1 tablet by 30 tablet 0 06/05/2019 A ctive tabletIndications: mouth daily. Generalized abdominal pain, Acute pulmonary edema losartan 50 mg Take 1 tablet by 30 tablet 0 06/05/2019 Active tabletIndications: mouth daily. Acute pulmonary edema, Transaminitis documented as of this encounter (statuses as of 10/05/2019) Active Problems Problem Noted Date Hypoxia 06/04/2019 Acute diastolic congestive heart failure 06/04/2019 Pneumonia due to infectious organism 06/04/2019 HTN (hypertension) 06/04/2019 Type 2 diabetes mellitus 07/17/2014 Hyperlipidemia 07/17/2014 Nephrolithiasis 07/17/2014 documented as of this encounter (statuses as of 10/05/2019) Social History Tobacco Use Types Packs/Day Years Used Date Never Smoker Smokeless Tobacco: Never Used Alcohol Use Drinks/Week oz/Week Comments Yes 4 Standard drinks or equivalent 3.3 Sex Assigned at Date Recorded Not on file Job Start Date Occupation Industry Not on file Not on file Not on file Travel History Travel Start Travel End No recent travel history available. COVID-19 Exposure Response Date Recorded In the last month, have you been in contact with No / Unsure 10/04/2019 10:10 AM CDT someone who was confirmed or suspected to have Coronavirus / COVID-19? documented as of this encounter Last Filed Vital Signs Not on filedocumented in this encounter Plan of Treatment Health Maintenance Due Date Last Done Comments PNEUMOCOCCAL 0-64 YEARS COMBINED 02/27/1974 SERIES (1 of 1 - PPSV23) EYE EXAM 02/27/1978 LDL-C 02/27/1978 DTaP,Tdap,and Td Vaccines (1 - 02/27/1979 Tdap) Depression Screening 1980 FOOT EXAM 02/27/1986 Breast Cancer Screening 2008 (MAMMOGRAM) PAP SMEAR 01/31/2010 01/31/2007, 08/10/2005, 02/25/2005 COLONOSCOPY 02/27/2018 Zoster Recombinant Vaccine 02/27/2018 (SHINGRIX) (1 of 2) INFLUENZA VACCINE (#1) 2019 HgA1C 12/04/2019 06/03/2019 URINE MICROALBUMIN 08/02/2020 08/03/2019 CREATININE (SERUM) 10/03/2020 10/04/2019, 06/05/2019, 06/04/2019, Additional history exists documented as of this encounter Procedures Procedure Name Priority Date/Time Associated Comments Diagnosis US RETROPERITONEAL Routine 10/04/2019 10:39 Chronic kidney Res ults for this COMPLETE AM CDT disease, stage III procedure are in (moderate) the results Localized edema section. NOTICE OF PRIVACY Routine 10/04/2019 10:14 PRACTICES AM CDT CONSENT/REFUSAL FOR Routine 10/04/2019 10:13 DIAGNOSIS AND TREATMENT AM CDT ASSIGNMENT OF BENEFITS Routine 10/04/2019 10:13 AM CDT documented in this encounter Results US RETROPERITONEAL COMPLETE (10/04/2019 10:39 AM CDT) Specimen Narrative Performed At HISTORY: CKD, stage III. PACS/VR/DOSE TECHNIQUE: Both kidneys are evaluated in multiple plan es with the patient in different positions. FINDINGS: Comparison is made with 020 CT studies. Both kidneys appear to be of normal size and shape wit h no hydronephrosis, perinephric fluid collection detected. Right kidney is 11.5 x 4.5 x 4.4 cm in size and left kidney 10.8 x 5.7 x 5.3 cm in size. C ortex of both kidneys is between 13 and 14 mm. Very small 6 x 9 mm cyst note d lower medial cortex of the left kidney, unchanged when breezy red with CT scan. Quick look at incompletely distended uri nary bladder showed no gross pathology. CONCLUSIONS: Very small cyst in the lower left kidney, stable compared with May 2019 CT study. Otherwise normal ultrasound study of the kidneys. Procedure Note [facility], Radiant Results Inft User - 2019 10:43 AM CDT HISTORY: CKD, stage III. TECHNIQUE: Both kidneys are evaluated in multiple planes with the patient in different positions. FINDINGS: Comparison is made with 020 CT studies. Both kidneys appear to be of normal size and shape with no hydronephrosis, perinephric fluid collection detected. R ight kidney is 11.5 x 4.5 x 4.4 cm in size and left kidney 10.8 x 5.7 x 5.3 cm in size. Cortex of both kidneys is between 13 and 14 mm. Very small 6 x 9 mm cyst noted lower medial cortex of the left kidney, unchanged when breezy red with CT scan. Quick look at incompletely distended uri nary bladder showed no gross pathology. CONCLUSIONS: Very small cyst in the lowe r left kidney, stable compared with May 2019 CT study. Otherwise normal ul trasound study of the kidneys. Performing Organization Address [facility] Phone Number PACS/VR/DOSE documented in this encounter Visit Diagnoses Diagnosis Chronic kidney disease, stage III (moder ate) Chronic kidney disease, Stage III (moder ate) Localized edema Edema documented in this encounter Insurance Payer Benefit Plan Subscriber ID Effective Dates Phone Address Type / Group [facility] [id number] 2018-Prese [phone] P O ALVIN X PPO/POS [place] - OUT OF nt 7 [id number] [place] [address] [phone] (Work) documented as of this encounter
--- OUTSIDE RECORDS SUMMARY | 2019-12-28 07:50 | XMS REPORT | Summary of Care ---
:[address] [facility] Address [address] [place] [address] Care Team Providers Name Role Phone Jeet Manley MD Primary Care Provider Reason for Visit Reason Comments LAB WORK Auth/Cert Status Reason Specialty Diagnoses / Procedures Referred By C ontact Referred To Contact Phlebotomy Diagnoses Chronic kidney disease, stage 2 (mild) Proteinuria, unspecified Nephrotic syndrome with unspecified morphologic changes Chronic kidney disease, stage 2 (mild) Adc Pob Lab [place] Procedures BASIC METABOLIC PANEL (NA, K, CL, CO2, GLUCOSE, BUN, CREATININE, CA) BMP,HEP,ALB,CA,PHOS,URIC Professional Office Building [address] [place] [address] , [address] [place] [address] Phone: Fax: Encounter Details Date Type Department Care Team Description 11/08/2019 Brake Lining Maker Visit [facility] Susie Hunt MD [address] [place] [address] [place] [address] Chronic kidney Professional Office Pob, 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 disease, stage II Building Phlebotomy (mild) ( Primary Dx) Lab Professional Office Building [address] [place] [address] , [address] [place] [address] Allergies Active Allergy Reactions Severity Noted Date Comments Tramadol Itching 08/10/2016 documented as of this encounter (statuses as of 11/08/2019) Medications Medication Sig Dispensed Refills Start Date [...] as of this encounter (statuses as of 11/08/2019) Active Problems Problem Noted Date Hypoxia 06/04/2019 Acute diastolic congestive heart failure 06/04/2019 Pneumonia due to infectious organism 06/04/2019 HTN (hypertension) 06/04/2019 Type 2 diabetes mellitus 07/17/2014 Hyperlipidemia 07/17/2014 Nephrolithiasis 07/17/2014 documented as of this encounter (statuses as of 11/08/2019) Social History Tobacco Use Types Packs/Day Years Used Date Never Smoker Smokeless Tobacco: Never Used Alcohol Use Drinks/Week oz/Week Comments Yes 4 Standard drinks or equivalent 3.3 Sex Assigned at Date Recorded Not on file documented as of this encounter Last Filed Vital Signs Not on filedocumented in this encounter Nursing Notes Radha John - 11/08/2019 1:15 PM CDT Venipuncture collection performed by clean technique on the left anticubitus. Total of 1 attempts were made. Slight pressure and a bandage/dressing were applied to the site(s). The patient experienced no complications. The following specimens were processed according to instructions and sent to [facility] laboratories per lab order on TODAY: LT BLUE SST 5 RED LAV PPT DK GREEN (LiHep) DK GREEN (SodH) BAKER DK BLUE (K2) DK BLUE (S) ACD Blood Culture NIPT/NTD AND URINE documented in this encounter Plan of Treatment Name Type Priority Associated Diagnoses Order S chedule BASIC METABOLIC PANEL (NA, LAB Routine Chronic kidney disease, Expected: 11/08/2019, K, CL, CO2, GLUCOSE, BUN, stage II (mild) Expires: 11/07/2020 CREATININE, CA) HEPATIC FUNCTION PANEL LAB Routine Chronic kidney dis ease, Expected: 11/08/2019, ([id number]) (ALB,T.PRO,BILI stage II (mild) E xpires: 11/07/2020 T,BU/BC,ALT,AST,ALK PHOS) CALCIUM LAB Routine Chronic kidney disease, Expe cted: 11/08/2019, stage II (mild) Expires: 05/2020 ALBUMIN LAB Routine Chronic kidney disease, Expe cted: 11/08/2019, stage II (mild) Expires: 05/2020 PHOSPHORUS LAB Routine Chronic kidney disease, Expe cted: 11/08/2019, stage II (mild) Expires: 05/2020 URIC ACID LAB Routine Chronic kidney disease, Expe cted: 11/08/2019, stage II (mild) Expires: 05/2020 URINALYSIS LAB Routine Chronic kidney disease, Expe cted: 11/08/2019, stage II (mild) Expires: 05/2020 PROTEIN CREAT RATIO URINE LAB Routine Chronic kidney disease, Expected: 11/08/2019, RANDOM stage II (mild) Expires: 05/2020 MICROALBUMIN URINE LAB Routine Chronic kidney disease , Expected: 11/08/2019, stage II (mild) Expires: 05/2020 ANTI-NUCLEAR ANTIBODY LAB Routine Chronic kidney dise ase, Expected: 11/08/2019, SCREEN stage II (mild) Expires: 05/2020 RHEUMATOID FACTOR LAB Routine Chronic kidney disease, Expected: 11/08/2019, stage II (mild) Expires: 09/ 05/2020 ELECTROPHORESIS, SERUM & LAB Routine Chronic kidney d isease, Expected: 11/08/2019, URINE stage II (mild) Expires: 05/2020 ANTI-DOUBLE STRANDED DNA LAB Routine Chronic kidney d isease, Expected: 11/08/2019, stage II (mild) Expires: 05/2020 C3 COMPLEMENT LAB Routine Chronic kidney disease, Exp ected: 11/08/2019, stage II (mild) Expires: 05/2020 C4 COMPLEMENT LAB Routine Chronic kidney disease, Exp ected: 11/08/2019, stage II (mild) Expires: 05/2020 [facility] ANTI GBM LAB Routine Chronic kidney di sease, Expected: 11/08/2019, ANTIBODY [facility]UP #[id number] stage II (mild) Ex ralph: 11/07/2020 ELECTROPHORESIS, SERUM LAB Routine Chronic kidney dis ease, Ordered: 11/08/2019 stage II (mild) Electrophoresis, Urine LAB Routine Chronic kidney dis ease, Ordered: 11/08/2019 stage II (mild) Health Maintenance Due Date Last Done Comments PNEUMOCOCCAL 0-64 YEARS COMBINED 02/27/1974 SERIES (1 of 1 - PPSV23) EYE EXAM 02/27/1978 LDL-C 02/27/1978 Depression Screening 1980 FOOT EXAM 02/27/1986 DTaP,Tdap,and Td Vaccines (1 - 02/27/1987 Tdap) Breast Cancer Screening 2008 (MAMMOGRAM) PAP SMEAR 01/31/2010 01/31/2007, 08/10/2005, 02/25/2005 COLON CANCER SCREENING FIT DNA 02/27/2018 EVERY 3 YEARS COLON CANCER SCREENING 02/27/2018 SIGMOIDOSCOPY EVERY 5 YEARS COLONOSCOPY 02/27/2018 Zoster Recombinant Vaccine 02/27/2018 (SHINGRIX) (1 of 2) INFLUENZA VACCINE (#1) 2019 HgA1C 12/04/2019 06/03/2019 COLON CANCER SCREENING ANNUAL 06/03/2020 06/04/2019 FIT/FOBT Colorectal Cancer Screening 06/03/2020 CREATININE (SERUM) 10/03/2020 10/04/2019, 06/05/2019, 06/04/2019, Additional history exists URINE MICROALBUMIN 10/03/2020 10/04/2019, 08/03/2019 documented as of this encounter Results Not on filedocumented in this encounter Visit Diagnoses Diagnosis Chronic kidney disease, stage II (mild) - Primary Chronic kidney disease, Stage II (mild) documented in this encounter Insurance Payer Benefit Plan Subscriber ID Effective Dates Phone Address Type / Group [facility] [id number] 2018-Maya [phone] P O ALVIN X PPO/POS [place] - OUT OF nt 7 [id number] [place] [address] [phone] (Work) documented as of this encounter
--- OUTSIDE RECORDS SUMMARY | 2019-12-28 07:50 | XMS REPORT | Summary of Care ---
:1970 Author Organization [facility] Address [address] [place] [address] Care Team Providers Name Role Phone Jeet Manley MD Primary Care Provider Reason for Visit Reason Comments LAB WORK Auth/Cert Status Reason Specialty Diagnoses / Procedures Referred By C ontact Referred To Contact Phlebotomy Diagnoses r60.0 Adc Pob Lab Draw Procedures CBC/DIFFERENTIAL (NO PLATELET)- Professional Office Building [address] [facility] , [address] [place] [address] Phone: Fax: Encounter Details Date Type Department Care Team Description 10/04/2019 Puttier Visit [facility] Susie Hunt MD [address] [place] [address] [place] [address] Localized edema (Primary Dx); Professional Office Pob, 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 Tired; Building Phlebotomy Proteinu michael, unspecified type; Lab Chronic kidney disease, stag e II (mild); Professional Office Iron def iciency anemia, unspecified iron deficiency anemia type Building [address] [place] [address] , [address] [place] [address] Allergies Active Allergy Reactions Severity Noted Date Comments Tramadol Itching 08/10/2016 documented as of this encounter (statuses as of 10/04/2019) Medications Medication Sig Dispensed Refills Start Date [...] as of this encounter (statuses as of 10/04/2019) Active Problems Problem Noted Date Hypoxia 06/04/2019 Acute diastolic congestive heart failure 06/04/2019 Pneumonia due to infectious organism 06/04/2019 HTN (hypertension) 06/04/2019 Type 2 diabetes mellitus 07/17/2014 Hyperlipidemia 07/17/2014 Nephrolithiasis 07/17/2014 documented as of this encounter (statuses as of 10/04/2019) Social History Tobacco Use Types Packs/Day Years [...] filedocumented in this encounter Plan of Treatment Name Type Priority Associated Diagnoses Date/Ti me BASIC METABOLIC PANEL LAB Routine Localized edema 10/04/2019 11:19 AM (NA, K, CL, CO2, GLUCOSE, Tired CDT BUN, CREATININE, CA) Proteinuria, unspeci fied type Chronic kidney disease, stage II (mild) Iron deficiency anemia, unspecified iron deficiency anemia type ALBUMIN LAB Routine Localized edema 10/04/2019 11:19 AM Tired CDT Proteinuria, unspecified type Chronic kidney disease, stage II (mild) Iron deficiency anemia, unspecified iron deficiency anemia type PHOSPHORUS LAB Routine Localized edema 10/04/2019 11:19 AM Tired CDT Proteinuria, unspecified type Chronic kidney disease, stage II (mild) Iron deficiency anemia, unspecified iron deficiency anemia type URIC ACID LAB Routine Localized edema 10/04/2019 11:19 AM Tired CDT Proteinuria, unspecified type Chronic kidney disease, stage II (mild) Iron deficiency anemia, unspecified iron deficiency anemia type URINALYSIS LAB Routine Localized edema 10/04/2019 11:19 AM Tired CDT Proteinuria, unspecified type Chronic kidney disease, stage II (mild) Iron deficiency anemia, unspecified iron deficiency anemia type CBC WITH DIFF LAB Routine Localized edema 10/04/2019 11:19 AM Tired CDT Proteinuria, unspecified type Chronic kidney disease, stage II (mild) Iron deficiency anemia, unspecified iron deficiency anemia type PROTEIN CREAT RATIO URINE LAB Routine Locali zed edema 10/04/2019 11:19 AM RANDOM Tired CDT Proteinuria, unspecified type Chronic kidney disease, stage II (mild) Iron deficiency anemia, unspecified iron deficiency anemia type MICROALBUMIN URINE LAB Routine Localized angella ma 10/04/2019 11:19 AM Tired CDT Proteinuria, unspecified type Chronic kidney disease, stage II (mild) Iron deficiency anemia, unspecified iron deficiency anemia type URIC ACID, URIC RANDOM LAB Routine Localized edema 10/04/2019 11:19 AM Tired CDT Proteinuria, unspecified type Chronic kidney disease, stage II (mild) Iron deficiency anemia, unspecified iron deficiency anemia type THYROID STIMULATING LAB Routine Localized ed ana cristina 10/04/2019 11:19 AM HORMONE Tired CDT Proteinuria, unspecified type Chronic kidney disease, stage II (mild) Iron deficiency anemia, unspecified iron deficiency anemia type Name Type Priority Associated Diagnoses Order S chedule BASIC METABOLIC PANEL (NA, LAB Routine Local ized edema Expected: 10/04/2019, K, CL, CO2, GLUCOSE, BUN, Tired Expires: 10/03/2020 CREATININE, CA) Proteinuria, unspecified type Chronic kidney disease, stage II (mild) Iron deficiency anemia, unspecified iron deficiency anemia type ALBUMIN LAB Routine Localized edema Expected: 10/04/2019, Tired Expires: 10/03/2020 Proteinuria, unspecified type Chronic kidney disease, stage II (mild) Iron deficiency anemia, unspecified iron deficiency anemia type PHOSPHORUS LAB Routine Localized edema Expected: 10/04/2019, Tired Expires: 10/03/2020 Proteinuria, unspecified type Chronic kidney disease, stage II (mild) Iron deficiency anemia, unspecified iron deficiency anemia type URIC ACID LAB Routine Localized edema Expected: 10/04/2019, Tired Expires: 10/03/2020 Proteinuria, unspecified type Chronic kidney disease, stage II (mild) Iron deficiency anemia, unspecified iron deficiency anemia type URINALYSIS LAB Routine Localized edema Expected: 10/04/2019, Tired Expires: 10/03/2020 Proteinuria, unspecified type Chronic kidney disease, stage II (mild) Iron deficiency anemia, unspecified iron deficiency anemia type CBC WITH DIFF LAB Routine Localized edema Expected: 10/04/2019, Tired Expires: 10/03/2020 Proteinuria, unspecified type Chronic kidney disease, stage II (mild) Iron deficiency anemia, unspecified iron deficiency anemia type PROTEIN CREAT RATIO URINE LAB Routine Locali zed edema Expected: 10/04/2019, RANDOM Tired Expires: 10/03/2020 Proteinuria, unspecified type Chronic kidney disease, stage II (mild) Iron deficiency anemia, unspecified iron deficiency anemia type MICROALBUMIN URINE LAB Routine Localized angella ma Expected: 10/04/2019, Tired Expires: 10/03/2020 Proteinuria, unspecified type Chronic kidney disease, stage II (mild) Iron deficiency anemia, unspecified iron deficiency anemia type URIC ACID, URIC RANDOM LAB Routine Localized edema Expected: 10/04/2019, Tired Expires: 10/03/2020 Proteinuria, unspecified type Chronic kidney disease, stage II (mild) Iron deficiency anemia, unspecified iron deficiency anemia type THYROID STIMULATING LAB Routine Localized ed ana cristina Expected: 10/04/2019, HORMONE Tired Expires: 10/03/2020 Proteinuria, unspecified type Chronic kidney disease, stage II (mild) Iron deficiency anemia, unspecified iron deficiency anemia type Health Maintenance Due Date Last Done Comments [...] INFLUENZA VACCINE (#1) 2019 HgA1C 12/04/2019 06/03/2019 CREATININE (SERUM) 06/04/2020 06/05/2019, 06/04/2019, 06/03/2019, Additional history exists URINE MICROALBUMIN 08/02/2020 08/03/2019 documented as of this encounter Results Not on filedocumented in this encounter Visit Diagnoses Diagnosis Localized edema - Primary Edema Tired Other malaise and fatigue Proteinuria, unspecified type Chronic kidney disease, stage II (mild) Chronic kidney disease, Stage II (mild) Iron deficiency anemia, unspecified iron deficiency anemia type documented in this encounter Insurance Payer Benefit Plan Subscriber ID Effective Dates Phone Address Type / Group [facility] [id number] 2018-Maya [phone] P O ALVIN X PPO/POS [place] - OUT OF nt 7 [id number] [place] [address] [phone] (Work) documented as of this encounter
--- OUTSIDE RECORDS SUMMARY | 2019-12-28 07:50 | XMS REPORT | Summary of Care ---
:1970 Author Organization [facility] Address [address] [place] [address] Care Team Providers Name Role Phone Jeet Manley MD Primary Care Provider Encounter Details Date Type Department Care Team Description 11/08/2019 Orders Only [facility] Doctor Unassigned, No [address] [facility] Name [place] [phone] [place] [phone] Allergies Active Allergy Reactions Severity Noted Date Comments Tramadol Itching 08/10/2016 documented as of this encounter (statuses as of 11/09/2019) Medications Medication Sig Dispensed Refills Start Date [...] as of this encounter (statuses as of 11/09/2019) Active Problems Problem Noted Date Hypoxia 06/04/2019 Acute diastolic congestive heart failure 06/04/2019 Pneumonia due to infectious organism 06/04/2019 HTN (hypertension) 06/04/2019 Type 2 diabetes mellitus 07/17/2014 Hyperlipidemia 07/17/2014 Nephrolithiasis 07/17/2014 documented as of this encounter (statuses as of 11/09/2019) Social History Tobacco Use Types Packs/Day Years [...] 10/04/2019, 08/03/2019 documented as of this encounter Procedures Procedure Name Priority Date/Time Associated Diagnosis Comme nts PHYSICIAN ORDERS Routine 11/08/2019 12:01 AM CDT documented in this encounter Results Not on filedocumented in this encounter Insurance Payer Benefit Plan Subscriber ID Effective Dates Phone Address Type / Group [facility] [id number] 2018-Maya [phone] P O ALVIN X PPO/POS [place] - OUT OF nt 7 [id number] [place] [address] documented as of this encounter
--- OUTSIDE RECORDS SUMMARY | 2019-12-28 07:50 | XMS REPORT | Summary of Care ---
:1970 Author Organization [facility] Address [address] [place] [address] Care Team Providers Name Role Phone Jeet Manley MD Primary Care Provider Reason for Visit Reason Comments LAB WORK Auth/Cert Status Reason Specialty Diagnoses / Procedures Referred By C ontact Referred To Contact Phlebotomy Diagnoses Chronic kidney disease, stage II Adc Pob Lab Draw Procedures bmp Professional Office Building [address] [facility] , [address] [place] [address] Phone: Fax: Encounter Details Date Type Department Care Team Description 12/18/2019 Manager Beauty Visit [facility] Susie Hunt MD [address] [place] [address] [facility] [place] [place] [address] Chronic kidney Professional Office Pob, 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 disease, stage II Building Phlebotomy (mild) Lab Professional Office Building [address] [place] [address] , [address] [place] [address] Allergies Active Allergy Reactions Severity Noted Date Comments Tramadol Itching 08/10/2016 documented as of this encounter (statuses as of 12/18/2019) Medications Medication Sig Dispensed Refills Start Date [...] as of this encounter (statuses as of 12/18/2019) Active Problems Problem Noted Date Hypoxia 06/04/2019 Acute diastolic congestive heart failure 06/04/2019 Pneumonia due to infectious organism 06/04/2019 HTN (hypertension) 06/04/2019 Type 2 diabetes mellitus 07/17/2014 Hyperlipidemia 07/17/2014 Nephrolithiasis 07/17/2014 documented as of this encounter (statuses as of 12/18/2019) Social History Tobacco Use Types Packs/Day Years Used Date Never Smoker Smokeless Tobacco: Never Used Alcohol Use Drinks/Week oz/Week Comments Yes 4 Standard drinks or equivalent 3.3 Sex Assigned at Date Recorded Not on file COVID-19 Exposure Response Date Recorded In the last month, have you been in contact with No / Unsure 12/18/2019 7:41 AM CDT someone who was confirmed or suspected to have Coronavirus / COVID-19? documented as of this encounter Last Filed Vital Signs Not on filedocumented in this encounter Nursing Notes Shama Zuñiga - 12/18/2019 7:45 AM CDT Venipuncture collection performed by clean technique on the left anticubitus. Total of 1 attempts were made. Slight pressure and a bandage/dressing were applied to the site(s). The patient experienced no complications. The following specimens were processed according to instructions and sent to [facility] laboratories per lab order on TODAY: LT BLUE SST 1 RED LAV PPT DK GREEN (LiHep) DK GREEN (SodH) BAKER DK BLUE (K2) DK BLUE (S) ACD Blood Culture NIPT/NTD documented in this encounter Plan of Treatment Name Type Priority Associated Diagnoses Date/Ti me BASIC METABOLIC PANEL LAB Routine Chronic kidney dise ase, 12/18/2019 7:50 AM CDT (NA, K, CL, CO2, stage II (mild) GLUCOSE, BUN, CREATININE, CA) HEPATIC FUNCTION PANEL LAB Routine Chronic kidney dis ease, 12/18/2019 7:50 AM CDT (35378) (ALB,T.PRO,BILI stage II (mild) T,BU/BC,ALT,AST,ALK PHOS) Health Maintenance Due Date Last Done Comments [...] 06/05/2019, 06/04/2019, Additional history exists URINE MICROALBUMIN 11/07/2020 11/08/2019, 10/04/2019, 08/03/2019 documented as of this encounter Results Not on filedocumented in this encounter Visit Diagnoses Diagnosis Chronic kidney disease, stage II (mild) Chronic kidney disease, Stage II (mild) documented in this encounter Insurance Payer Benefit Plan Subscriber ID Effective Dates Phone Address Type / Group [facility] [id number] 2018-Maya [phone] P O ALVIN X PPO/POS [place] - OUT OF 7 [id number] [place] [address] [phone] (Work) documented as of this encounter
--- OUTSIDE RECORDS SUMMARY | 2019-12-28 07:51 | XMS REPORT | Encounter Summary ---
:1970 Author Care Team Providers Name Role Phone Dr. Samm eWston Primary Care Provider [phone] Reason for Visit Retinopathy due to type 2 diabetes melli tureji Instructions 1. 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 Obesity learning about healthy angely ght 3. Essential hypertension 4. Hyperlipidemia high cholesterol: care ins tructions 5. Hypothyroidism Discussion Note: None recorded. Plan of Care Reminders Provider Appointments Diabetic 01/04/2020 Daily Ceron 4:00PM MD Benjamin Return to on or around Vance Ceron Office 01/24/2020 MD Benjamin Diabetic 01/29/2020 Samm Ceron 9:00AM MD Benjamin Lab Glucose, 12/24/2019 [facility] Fingerstick, Blood - Benjamin Hemoglobin 12/24/2019 [facility] a1C, Fingerstick - Benjamin Referral None recorded. Procedures None recorded. Surgeries None recorded. Imaging None recorded. Medications Name Start Date Adult Aspirin Regimen 81 mg tablet,delayed release Take 1 tablet every day by oral route. bumetanide 2 mg tablet Take 1 tablet twice a day by oral route. FreeStyle Tea 14 Day Sensor metolazone 5 mg tablet Take 1 tablet twice a week by oral route. Novolog Flexpen U-100 Insulin aspart 100 unit/mL (3 mL ) subcutaneous Use before meals as needed using CF 1:30; TDD 40 TRAVEL PROFESSIONAL Thyroid 30 mg tablet Take 1 tablet every day by oral route. Tradjenta 5 mg tablet Take 1 tablet every day by oral route in the morning for 30 days. Tresiba FlexTouch U-200 insulin 200 unit/mL (3 mL) sub cutaneous pen Inject 30 units every day by subcutaneous route in morning. Vitamin D3 1000 IU DAILY Medications Administered None recorded. Vitals Height Weight BMI Blood Pressure 5 ft 2 in 172 lbs 31.5 kg/m2 110/78 mm[Hg] Results Lab Results Date Name Specimen Result Interpretation Description Value Range Status Address Hemoglobin a1C, Hemoglobin a1C 8.7 Madhavi: Fingerstick Fingerstick: [address], [place] Glucose, Blood Glucose: 172 Madhavi: Fingerstick, mg/dl 10[address], [place] Allergies Code Code System Name Reaction Severity Status Onset 6808 RxNorm Metformin Diarrhea Active 53029 RxNorm Ramipril Rash Active 79491 RxNorm Tramadol Hives Active Problems Name Status Onset Date Source Hypothyroidism Active 09/12/2018 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 Vaccine List None recorded. Social History Tobacco Smoking Status Never Smoker Past Encounters Encounter Date Diagnosis Provider 12/24/2019 Retinopathy Due to Type 2 Samm Alexander MD: Diabetes Mellitus; Obesity; [address] Essential Hypertension; [place], [address] , Hyperlipidemia; [place] [address], Ph. History of Present Illness Diabetes F/U Reported By: Patient HPI: Labs: last A1C result: 8.7%. Context: seeing eye doctor regularly; She is being treated for retinop athy. Associated Symptoms: no weight loss, no increased thirst, no incr eased urination, no numbness of feet, weight gain (4 lbs), dizziness, zenaida rred vision Notes: Diabetes Education: pt needs to go on a lower carb eating plan. she usually eats sandwiches and fries for lunch<div>-pt will go to grocery store and buy frozen entre o f healthy choice or lean cuisine. she is concerned with lower sodium intake as geodetic surveyor asked her to eat less sodium. discussed with her t he total sodium for the day of lesss than 1400 mg if possible.</div><d iv>-pt limited in activity due to leg pain. she has seen aquaculture and fisheries professor an d no problems exist. showed her low back stretches to do. her hamstri ngs were very tight. encouraged her to search low back stretches to do daily.</div><div>
</div><div>30 minutes of diabetes educatio n performed today</div> Note: The patient is here for follow up of DM2. She is concern about recent weight gain. Review of Systems Comprehensive General Adult ROS Reported By: Patient Constitutional: Constitutional: no fever, no night sweats Eyes: Eyes: no dry eyes, no vision change ENMT: Ears: no difficulty hearing, no ear pain. Mouth/Throat: no sore throat Cardiovascular: Cardiovascular: no chest liliam n, no palpitations, shortness of breath when walking Respiratory: Respiratory: no wheezing, no shortness of breath, cough; From allergie Gastrointestinal: Gastrointestinal: no abdomin al pain, no nausea, no vomiting, no constipation, no diarrhea Musculoskeletal: Musculoskeletal: no muscle a ches, no muscle weakness, no arthralgias/joint pain, no b ack pain, no swelling in the extremities Integumentary: Skin: no rashes Neurologic: Neurologic: no weakness, no dizziness, no headaches Psychiatric: Psych: no depression, no sle ep disturbances, no anxiety Endocrine: Endocrine: no fatigue Allergic/Immunologic: Allergy/Immunologic: no itch ing Physical Exam General Adult Exam (Female) Reported By: Patient Constitutional: General Appearance: healthy- appearing, well-nourished, well-developed. Level of Dis tress: NAD. Ambulation: ambulating normally Psychiatric: Mental Status: active and al ert Head: Head: normocephalic, atrauma tic Eyes: Pupils: PERRLA. Sclerae: non -icteric Lungs: Auscultation: breath sounds normal, good air movement, no wheezing, no rales/crackles Cardiovascular: Heart Auscultation: RRR, nor mal S1, normal S2, murmur; 1/6 Murmur Abdomen: Bowel Sounds: normal. Inspec tion and Palpation: soft, no tenderness Musculoskeletal:: Motor Strength and Tone: nor mal motor strength. Extremities: no cyanosis, no edema Neurologic: Gait and Station: normal gai t Skin: Inspection and palpation: no rash, no lesions
[2019-12-28] MEDS ORDERED: NA CHLORIDE 0.9% 1,000 ML ONE (08:38)
[2019-12-28 08:47] LABS: Absolute Lymphocytes (CBC) 1.4 K/uL (0.7-4.9); Basophils % 0.7 % (0-1.3); Hematocrit 35.9 % (36.0-45.0); Lymphocytes % 19.4 % (15.3-44.8); MPV 8.7 fL (7.6-11.3)
[2019-12-28] MEDS ORDERED: POTASSIUM CL SA 10 MEQ TAB PO ONE (10:13)
[2019-12-28] MEDS ORDERED: INSULIN -REGULAR HUMAN 50 UNIT/0.5 ML ML ONE (10:14)
--- NOTE | 2019-12-28 10:42 | EDPHYS ---
Physician Documentation [facility] Name: Alyson Mayfield Age: 49 yrs Sex: Female : 1970 Arrival Date: 12/28/2019 Time: 07:58 Bed 2 Private MD: ED Physician Bam Goode HPI: 12/27 18:12 This 49 yrs old Female presents to ER via Ambulatory with complaints of kdr Dizziness, Lightheaded, Headache. 18:12 The patient presents with feeling faint, generalized weakness, lightheadedness. Onset: kdr The symptoms/episode began/occurred gradually, 2 day(s) ago. Context: occurred at home. Modifying factors: The symptoms are alleviated by nothing, the symptoms are aggravated by standing up. Associated signs and symptoms: The patient has no apparent associated signs or symptoms, Pertinent positives:. Severity of symptoms: At their worst the symptoms were mild in the emergency department the symptoms are unchanged. Patient's baseline: Neuro: alert and fully oriented, Motor: no deficits, Ambulation: walks without assistance, Speech: normal, The patient has a previous history of Recent change in BP meds. The patient has not experienced similar symptoms in the past. The patient has been recently seen by a physician: the patient's primary care provider. Historical: - Allergies: 08:11 Tramadol HCl; sv 08:11 HCTZ; sv - PMHx: 08:11 Hypertension; Kidney stones; Thyroid problem; CHF; Diabetes - IDDM; sv - PSHx: 08:11 kidney stones removed; Cholecystectomy; sv - Immunization history:: Flu vaccine is not up to date. - Social history:: Smoking status: Patient denies any tobacco usage or history of. ROS: 18:12 Constitutional: Negative for fever, chills, and weight loss, Eyes: Negative for injury, kdr pain, redness, and discharge, Neck: Negative for injury, pain, and swelling, Cardiovascular: Negative for chest pain, palpitations, and edema, Respiratory: Negative for shortness of breath, cough, wheezing, and pleuritic chest pain, Abdomen/GI: Negative for abdominal pain, nausea, vomiting, diarrhea, and constipation, Back: Negative for injury and pain, : Negative for injury, bleeding, discharge, and swelling, MS/Extremity: Negative for injury and deformity, Skin: Negative for injury, rash, and discoloration, Psych: Negative for depression, anxiety, suicide ideation, homicidal ideation, and hallucinations, Allergy/Immunology: Negative for hives, rash, and allergies, Endocrine: Negative for neck swelling, polydipsia, polyuria, polyphagia, and marked weight changes, Hematologic/Lymphatic: Negative for swollen nodes, abnormal bleeding, and unusual bruising. 18:12 Neuro: Positive for dizziness, weakness, Worse with standing, Negative for Exam: 08:21 ECG was reviewed by the Attending Physician. kdr 18:12 Constitutional: This is a well developed, well nourished patient who is awake, alert, kdr and in no acute distress. Head/Face: Normocephalic, atraumatic. Eyes: Pupils equal round and reactive to light, extra-ocular motions intact. Lids and lashes normal. Conjunctiva and sclera are non-icteric and not injected. Cornea within normal limits. Periorbital areas with no swelling, redness, or edema. Neck: Trachea midline, no thyromegaly or masses palpated, and no cervical lymphadenopathy. Supple, full range of motion without nuchal rigidity, or vertebral point tenderness. No Meningismus. Chest/axilla: Normal chest wall appearance and motion. Nontender with no deformity. No lesions are appreciated. Cardiovascular: Regular rate and rhythm with a normal S1 and S2. No gallops, murmurs, or rubs. Normal PMI, no JVD. No pulse deficits. Respiratory: Lungs have equal breath sounds bilaterally, clear to auscultation and percussion. No rales, rhonchi or wheezes noted. No increased work of breathing, no retractions or nasal flaring. Abdomen/GI: Soft, non-tender, with normal bowel sounds. No distension or tympany. No guarding or rebound. No evidence of tenderness throughout. Back: No spinal tenderness. No costovertebral tenderness. Full range of motion. Skin: Warm, dry with normal turgor. Normal color with no rashes, no lesions, and no evidence of cellulitis. MS/ Extremity: Pulses equal, no cyanosis. Neurovascular intact. Full, normal range of motion. Psych: Awake, alert, with orientation to person, place and time. Behavior, mood, and affect are within normal limits. 18:12 Neuro: Orientation: is normal, Mentation: is normal, Memory: is normal, Motor: is normal, The patient is noted to be orthostatic before and after food bolus. Vital Signs: 08:08 BP 134 / 82; Pulse 87; Resp 16; Temp 98.1; Pulse Ox 98% ; Weight 78.47 kg; Height 5 ft. sv 2 in. (157.48 cm); 08:15 BP 126 / 72 Sitting; Pulse 84; em 08:17 BP 97 / 66 Standing; Pulse 88; em 08:30 BP 147 / 75; Pulse 72; Resp 18; Pulse Ox 100% on R/A; vg1 09:00 BP 133 / 78; Pulse 72; Resp 16; Pulse Ox 98% on R/A; vg1 10:04 BP 160 / 75 Supine; vg1 10:09 BP 129 / 72 Sitting; vg1 10:14 BP 87 / 64 Standing; vg1 11:06 BP 141 / 64; Pulse 74; Resp 14; Pulse Ox 99% on R/A; vg1 11:30 BP 136 / 110; Pulse 73; Resp 16; Pulse Ox 100% on R/A; vg1 12:00 BP 160 / 68; Pulse 73; Resp 16; Pulse Ox 100% on R/A; vg1 08:08 Body Mass Index 31.64 (78.47 kg, 157.48 cm) sv MDM: 10:41 Patient medically screened. kdr 18:12 Data reviewed: vital signs, nurses notes, lab test result(s), radiologic studies. kdr Counseling: I had a detailed discussion with the patient and/or guardian regarding: the historical points, exam findings, and any diagnostic results supporting the discharge/admit diagnosis, lab results, radiology results, the need for further work-up and treatment in the hospital. 12/27 08:18 Order name: CBC with Diff; Complete Time: 09:59 kdr 12/27 08:18 Order name: Chem 7; Complete Time: 09:59 kdr 12/27 10:04 Order name: Glucose, Ancillary Testing; Complete Time: 10:56 EDMS 12/27 10:48 Order name: Glucose, Ancillary Testing; Complete Time: 10:56 EDMS 12/27 08:11 Order name: EKG; Complete Time: 08:12 sv 12/27 08:11 Order name: EKG - Nurse/Tech; Complete Time: 08:12 sv 12/27 08:19 Order name: Orthostatics; Complete Time: 08:23 kdr EC:21 Rate is 76 beats/min. Rhythm is regular, Normal Sinus Rhythm with No ectopy. QRS [place] kdr is Normal. MO interval is normal. QRS interval is normal. QT interval is normal. Clinical impression: Normal ECG. Administered Medications: 08:39 Drug: NS 0.9% 1000 ml Route: IV; Rate: 1 bolus; Site: right antecubital; hb 10:50 Follow up: Response: No adverse reaction; IV Intake: 1000ml hb 10:00 Drug: Potassium Chloride 40 mEq Route: PO; vg1 11:07 Follow up: Response: No adverse reaction vg1 10:00 Drug: Insulin Regular Human 6 units {Co-Signature: em (Mumtaz Marques RN).} Route: IVP; vg1 Site: right antecubital; 11:07 Follow up: Response: No adverse reaction vg1 11:13 Drug: NS 0.9% 500 ml Route: IV; Rate: bolus; Site: right antecubital; vg1 12:10 Follow up: Response: No adverse reaction; IV Intake: 500ml vg1 Disposition: 12/28/19 10:41 Hospitalization ordered by Marvin Escobar for Inpatient Admission. Preliminary diagnosis is Acute Renal Failure. - Bed requested for Telemetry/MedSurg (Inpatient). - Status is Inpatient Admission. hb - Condition is Fair. - Problem is new. - Symptoms are unchanged. Signatures: Dispatcher [employer] Nicki Martinez RN RN sv Woody, Diana, RN RN Bam Goode MD MD [facility] Marisa Dash RN RN Harriet Nieto RN RN [facility] Mumtaz Marques RN em Corrections: (The following items were deleted from the chart) 12: 10:41 Hospitalization Ordered by Marvin Escobar for Inpatient Admission. Preliminary dw diagnosis is Acute Renal Failure. Bed requested for Telemetry/MedSurg (Inpatient). Status is Inpatient Admission. Condition is Fair. Problem is new. Symptoms are unchanged. kdr 13:09 12:09 12/28/2019 10:41 Hospitalization Ordered by Marvin Escobar for Inpatient hb Admission. Preliminary diagnosis is Acute Renal Failure. Bed requested for Telemetry/MedSurg (Inpatient). Status is Inpatient Admission. Condition is Fair. Problem is new. Symptoms are unchanged. dw
--- NOTE | 2019-12-28 10:42 | ER ---
Nurse's Notes [facility] Name: Alyson Mayfield Age: 49 yrs Sex: Female : 1970 Arrival Date: 12/28/2019 Time: 07:58 Bed 2 Private MD: Diagnosis: Acute Renal Failure Presentation: 12/27 08:08 Chief complaint: Patient states: dizziness/lightheadedness only when standing, and the sv top of her left lip feels 'on fire'. BP at home was 90s/60s, recently taken off of her BP med and placed on Metolazone on Tuesday. Coronavirus screen: Client denies travel out of the [place] in the last 14 days. At this time, the client does not indicate any symptoms associated with coronavirus-19. Ebola Screen: No symptoms or risks identified at this time. Initial Sepsis Screen: Does the patient meet any 2 criteria? No. Patient's initial sepsis screen is negative. Does the patient have a suspected source of infection? No. Patient's initial sepsis screen is negative. Risk Assessment: Do you want to hurt yourself or someone else? Patient reports no desire to harm self or others. Onset of symptoms was December 2019. 08:08 Method Of Arrival: Ambulatory sv 08:08 Acuity: KLAUS 3 sv Historical: - Allergies: 08:11 Tramadol HCl; sv 08:11 HCTZ; sv - PMHx: 08:11 Hypertension; Kidney stones; Thyroid problem; CHF; Diabetes - IDDM; sv - PSHx: 08:11 kidney stones removed; Cholecystectomy; sv - Immunization history:: Flu vaccine is not up to date. - Social history:: Smoking status: Patient denies any tobacco usage or history of. Screenin:07 Abuse screen: Denies threats or abuse. Nutritional screening: No deficits noted. em Tuberculosis screening: No symptoms or risk factors identified. Fall Risk None identified. Assessment: 08:10 General: Appears in no apparent distress. comfortable, Behavior is calm, cooperative, em appropriate for age. Pain: Denies pain. Neuro: Level of Consciousness is awake, alert, obeys commands, Oriented to person, place, time, situation, Appropriate for age Reports dizziness, headache. Cardiovascular: Capillary refill < 3 seconds Patient's skin is warm and dry. Respiratory: Airway is patent Respiratory effort is even, unlabored, Respiratory pattern is regular, symmetrical. GI: Abdomen is flat, Patient currently denies nausea, vomiting. Derm: Skin is intact, is healthy with good turgor, Skin is pink, warm \T\ dry. Musculoskeletal: Capillary refill < 3 seconds, Range of motion: intact in all extremities. 09:24 Reassessment: Patient appears in no apparent distress at this time. Patient and/or vg1 family updated on plan of care and expected duration. Pain level reassessed. Patient is alert, oriented x 3, equal unlabored respirations, skin warm/dry/pink. patient states 'feeling fine, just tired'. Denies any pain. 09:54 Reassessment: FSBS 313. Notified Dr Goode. vg1 10:03 Reassessment: Pt states she is still dizzy after sitting up, pt wheeled to the restroom em via wheelchair, tolerated well. 10:18 Reassessment: During Orthostatic assessment patient stated 'slightly dizzy' while vg1 sitting at edge of bed. While standing patient stated feeling 'very dizzy'. Notified Dr Goode. 10:38 Reassessment: Patient appears in no apparent distress at this time. Patient is alert, vg1 oriented x 3, equal unlabored respirations, skin warm/dry/pink. FSBS 272. Notified Dr Goode. 11:18 Reassessment: hospitalist at bedside. em 12:00 Reassessment: Commercial Art Instructor at bedside evaluating patient. vg1 12:18 Reassessment: Attempted to call for report to 2nd floor. Stated they would have the [facility] receiving nurse call back. Vital Signs: 08:08 BP 134 / 82; Pulse 87; Resp 16; Temp 98.1; Pulse Ox 98% ; Weight 78.47 kg; Height 5 ft. sv 2 in. (157.48 cm); 08:15 BP 126 / 72 Sitting; Pulse 84; em 08:17 BP 97 / 66 Standing; Pulse 88; em 08:30 BP 147 / 75; Pulse 72; Resp 18; Pulse Ox 100% on R/A; vg1 09:00 BP 133 / 78; Pulse 72; Resp 16; Pulse Ox 98% on R/A; vg1 10:04 BP 160 / 75 Supine; vg1 10:09 BP 129 / 72 Sitting; vg1 10:14 BP 87 / 64 Standing; vg1 11:06 BP 141 / 64; Pulse 74; Resp 14; Pulse Ox 99% on R/A; vg1 11:30 BP 136 / 110; Pulse 73; Resp 16; Pulse Ox 100% on R/A; vg1 12:00 BP 160 / 68; Pulse 73; Resp 16; Pulse Ox 100% on R/A; vg1 08:08 Body Mass Index 31.64 (78.47 kg, 157.48 cm) sv ED Course: 07:58 Patient arrived in ED. bp1 08:02 Bam Goode MD is Attending Physician. kdr 08:05 Mumtaz Marques, RN is Primary Nurse. em 08:07 Patient has correct armband on for positive identification. Call light in reach. Side em rails up X2. Pulse ox on. NIBP on. 08:10 Triage completed. sv 08:10 EKG done, by ED staff, reviewed by Bam Goode MD. dh3 08:11 Arm band placed on. sv 08:25 Inserted saline lock: 20 gauge in right antecubital area, using aseptic technique. vg1 Blood collected. Flushed right antecubital with 2 ml normal saline. 09:09 Notified ED physician of a critical lab result(s). glucose-401. sv 10:40 Marvin Escobar is Hospitalizing Provider. kdr 12:31 Patient admitted, IV remains in place. intact, No redness/swelling at site. vg1 12:31 No provider procedures requiring assistance completed. vg1 Administered Medications: 08:39 Drug: NS 0.9% 1000 ml Route: IV; Rate: 1 bolus; Site: right antecubital; hb 10:50 Follow up: Response: No adverse reaction; IV Intake: 1000ml hb 10:00 Drug: Potassium Chloride 40 mEq Route: PO; vg1 11:07 Follow up: Response: No adverse reaction vg1 10:00 Drug: Insulin Regular Human 6 units {Co-Signature: em (Mumtaz Marques RN).} Route: IVP; vg1 Site: right antecubital; 11:07 Follow up: Response: No adverse reaction vg1 11:13 Drug: NS 0.9% 500 ml Route: IV; Rate: bolus; Site: right antecubital; vg1 12:10 Follow up: Response: No adverse reaction; IV Intake: 500ml vg1 Intake: 10:50 IV: 1000ml; Total: 1000ml. hb 12:10 IV: 500ml; Total: 1500ml. vg1 Outcome: 10:41 Decision to Hospitalize by Provider. kdr 12:29 Admitted to Tele accompanied by tech, via wheelchair, room 229, with chart, Other cecilia Benavidez RN would call back as soon as the room is cleaned. Report called to ROB Benavidez 12:29 Condition: stable 12:29 Instructed on the need for admit. 13:09 Patient left the ED. hb Signatures: Nicki Castro RN RN sv Bam Goode MD MD kdr Munoz, Edgar RN RN em Marisa Dash RN ROB Irene Cota [facility] Harriet Nieto RN ROB vg1 Desiree Chatterjee RN em Corrections: (The following items were deleted from the chart) 08:43 08:25 Inserted saline lock: 20 gauge in right antecubital area, using aseptic vg1 technique. Blood collected. Flushed left subclavian with 2 ml normal saline hb 12:45 12:29 Admitted to Tele accompanied by tech, via wheelchair, room 229, with chartdavid1 Report called to ROB Benavidez 12:47 12:29 Admitted to Tele accompanied by tech, via wheelchair, room 229, with chart, vg1 Report called to ROB Benavidez vg1
[2019-12-28] MEDS ORDERED: NA CHLORIDE 0.9% 500 ML ONE (11:20)
--- NOTE | 2019-12-28 12:19 | P.CNS ---
Date of Consult: 12/28/19 Reason for Consult: UMM Chief Complaint: near syncope History of Present Illness: A 49 Y/o woman with PMHx of HTN, poorly controlled DM and HTN pt presented with dizziness and near syncope when standing pt was on losartan and HCTZ , as per pt meds stopped and she started on Bumex , pt was cont to gain WT , metolazone started ~2wks ago pt denied nuasea, vomiting, diarrhea or constipation or NSAID in take in ER pt was hypotensive Cr 1.7, K 3.0, BS 400 Physical exam general;AAOX3, NAD neck: supple, no elevatd JVD heart: RRR, normal S1,2 no murmur or rub chest: CTAB , no rales or wheezes abdomen; sOFt , NT ext no edema A/P UMM possibly due to overdiuresis will get most recent labs IVF will ordr UA nd renal US renal dose meds Avoid NSAUID and cintrast Hypokalemia will replace due to diuresis DM poorly controlled as per PCP HTN will hold meds for now Allergies Tramadol HCl Allergy (Uncoded 05/21/19 14:26) Hives/Rash Home Medications: Thyroid,Pork [Thyroid] 30 mg PO DAILY 08/03/17 Insulin Glargine,Hum.rec.anlog [[place]ao Solostar] 20 unit SQ BREAKFAST 05/21/19 Losartan Potassium 50 mg PO DAILY 05/21/19 - Past Medical/Surgical History Diabetic: Yes -: DM -: Thyroid -: Tubal ligation -: Gallbladder - Family History Father Medical History: Hypertension, Diabetes, Cancer Mother Medical History: Diabetes, Cancer - Social History Alcohol use: Yes CD- Drugs: No Caffeine use: Yes Physical Examination Laboratory Data (last 24 hrs) 12/28/19 08:30: Sodium 134 L, Potassium 3.0 L, BUN 78 H, Creatinine 1.71 H, Glucose 401 H* 12/28/19 08:30: WBC 7.3, Hgb 12.4, Hct 35.9 L, Plt Count 325
[2019-12-28] MEDS ORDERED: NA CHLORIDE 0.9% 1,000 ML IV SCH (13:22)
[2019-12-28] MEDS ORDERED: POTASSIUM 25 MEQ EFFERV TAB PO ONE (13:22)
[2019-12-28] MEDS ORDERED: ONDANSETRON 4 MG/2 ML VIAL IV PRN (13:22)
--- NOTE | 2019-12-28 13:27 | P.HP ---
Certification for Inpatient Patient admitted to: Observation With expected LOS: <2 Midnights Practitioner: I am a practitioner with admitting privileges, knowledge of patient current condition, hospital course, and medical plan of care. Services: Services provided to patient in accordance with Admission requirements found in Title 42 Section 412.3 of the Code of Federal Regulations Patient History Date of Service: 12/28/19 Reason for admission: near syncope History of Present Illness: 49-year-old woman with a history of diabetes mellitus on insulin therapy, history of hypertension presented emergency department with a complaint of lightheadedness and dizziness. Patient stated he recently gained weight, saw her PCP who was managing her diuretics. Patient was put on a trial of hydrochlorothiazide, bumetanide and metolazone at different times. She stated this did not help her weight gain. At a point she was told her blood pressure was running low and her losartan discontinued. All the diuretics have been stopped except metolazone. She presented to the ED with a complaint of feeling faint. Blood work done in the ED demonstrated acute renal failure with creati nine elevated to 1.7 compared to baseline of 0.6. Her blood pressure fluctuates with the lower systolic blood pressure 87. She was orthostatic in the ED. Patient is suspected to be dehydrated home excessive diuresis. She is placed under observation for further management. . Allergies Tramadol HCl Allergy (Uncoded 05/21/19 14:26) Hives/Rash Home Medications: Thyroid,Pork [Thyroid] 30 mg PO DAILY 08/03/17 Insulin Glargine,Hum.rec.anlog [Toujeo Solostar] 20 unit SQ BREAKFAST 05/21/19 Losartan Potassium 50 mg PO DAILY 05/21/19 - Past Medical/Surgical History Diabetic: Yes -: DM -: Hypothyroid -: Hypertension -: Tubal ligation -: Gallbladder - Family History Father -: Hypertension, Diabetes, Cancer Mother -: Diabetes, Cancer - Social History Smoking Status: Never smoker Alcohol use: Yes CD- Drugs: No Caffeine use: Yes Place of Residence: Home Review of Systems Other: Except as documented, all other systems reviewed and negative. Physical Examination - Vital Signs Temperature: 98.1 F Blood Pressure: 147/75 Pulse: 72 Respirations: 18 - Physical Exam General: Alert, In no apparent distress, Oriented x3 HEENT: PERRLA, Mucous membr. moist/pink, EOMI, Sclerae nonicteric Neck: Supple, JVD not distended, No Thyromegaly Respiratory: Clear to auscultation bilaterally, Normal air movement Cardiovascular: No edema, Regular rate/rhythm, Normal S1 S2, No murmurs Capillary refill: <2 Seconds Gastrointestinal: Normal bowel sounds, Soft and benign, No tenderness Musculoskeletal: No swelling, No erythema Integumentary: No rashes, No tenderness/swelling Neurological: Normal speech, Normal strength at 5/5 x4 extr, Cranial nerves 3-12 intact - Studies Laboratory Data (last 24 hrs) 12/28/19 08:30: Sodium 134 L, Potassium 3.0 L, BUN 78 H, Creatinine 1.71 H, Glucose 401 H* 12/28/19 08:30: WBC 7.3, Hgb 12.4, Hct 35.9 L, Plt Count 325 Assessment and Plan - Problems (Diagnosis) (1) Near syncope Current Visit: Yes Status: Acute (2) Orthostasis Current Visit: Yes Status: Acute (3) Orthostatic dizziness Current Visit: Yes Status: Acute (4) Acute renal failure Current Visit: Yes Status: Acute (5) Diabetes mellitus type 2 in obese Current Visit: Yes Status: Chronic - Plan Place under observation. Stop all diuretics. Hydrate with IV normal saline. Nephrology consult. Monitor orthostatics vitals. Check TSH. Monitor renal function Labetalol p.r.n. for BP spikes. Considering amlodipine for blood pressure management. Obtain echocardiogram. - Advance Directives Does patient have a Living Will: No Does patient have a Durable POA for Healthcare: No
[2019-12-28 13:29] VITALS: O2SAT 100
[2019-12-28 13:49] VITALS: BMI 24.8
[2019-12-28] MEDS: NACHLORIDE 0.45% 1,000 ML IV SCH (14:11)
[2019-12-28] MEDS: INSULIN -REGULAR HUMAN 50 UNIT/0.5 ML ML SQ SCH ×2 (16:30→20:32)
[2019-12-28] MEDS: HEPARIN 5000 UNIT/ML 1 ML VIAL SQ SCH (18:07)
[2019-12-28 19:29] LABS: Urine Appearance CLEAR; Urine Bilirubin NEGATIVE (NEG); Urine Blood 1+ (NEG); Urine Color YELLOW; Urine Glucose TRACE (NEG); Urine Protein NEGATIVE (NEG); Urine Urobilinogen 0.2 mg/dL (0.2-1.0)
[2019-12-28 19:36] LABS: Urine Microscopic Reflex ORDER UMIC
[2019-12-28 19:40] LABS: Urine Protein/Creatinine Ratio 0.3 ratio (<0.15)
[2019-12-28 19:44] LABS: Urine Bacteria <20 /HPF (<20); Urine Culture Reflex Order NOT NEEDED
[2019-12-28] MEDS ORDERED: ACETAMINOPHEN 500 MG TAB PO PRN (21:27)
[2019-12-29] MEDS: HEPARIN 5000 UNIT/ML 1 ML VIAL SQ SCH ×2 (00:09→08:36)
[2019-12-29] MEDS: NACHLORIDE 0.45% 1,000 ML IV SCH (03:30)
[2019-12-29 05:49] LABS: Absolute Lymphocytes (CBC) 1.7 K/uL (0.7-4.9); Basophils % 0.5 % (0-1.3); Hematocrit 31.5 % (36.0-45.0); Lymphocytes % 33.5 % (15.3-44.8); MPV 8.5 fL (7.6-11.3); RBC Red Blood Cell Count 3.69 M/uL (3.86-4.86)
[2019-12-29 06:33] LABS: Phosphorus 2.7 mg/dL (2.5-4.9); Potassium 3.1 mmol/L (3.5-5.1); Thyroid Stimulating Hormone 2.2 uIU/mL (0.360-3.740)
[2019-12-29 06:37] LABS: Magnesium 2.6 mg/dL (1.8-2.4); Thyroid Stimulating Hormone 2.17 uIU/mL (0.360-3.740)
[2019-12-29] MEDS: INSULIN -REGULAR HUMAN 50 UNIT/0.5 ML ML SQ SCH ×2 (08:35→12:32)
[2019-12-29] MEDS ORDERED: D50W 25 GM/50 ML SYRINGE/VIAL IV PRN (08:52)
[2019-12-29] MEDS ORDERED: GLUCAGON 1 MG/VIAL IM PRN (08:52)
[2019-12-29] MEDS ORDERED: THYROID 30 MG TAB PO SCH (09:00)
[2019-12-29] MEDS ORDERED: ASPIRIN 81 MG CHEWABLE TABLET PO SCH (09:00)
[2019-12-29] MEDS ORDERED: VITAMIN D 1000 UNIT TAB PO SCH (09:00)
[2019-12-29] MEDS ORDERED: POTASSIUM CL SA 10 MEQ TAB PO ONE (09:00)
--- NOTE | 2019-12-29 11:01 | P.DS ---
Admission Date: 12/28/19 Discharge Date: 12/29/19 Disposition: ROUTINE DISCHARGE Discharge Condition: FAIR Reason for Admission: near syncope - Problems (1) Near syncope Current Visit: Yes Status: Acute (2) Orthostasis Current Visit: Yes Status: Acute (3) Orthostatic dizziness Current Visit: Yes Status: Acute (4) Acute renal failure Current Visit: Yes Status: Acute (5) Diabetes mellitus type 2 in obese Current Visit: Yes Status: Chronic Brief History of Present Illness: 49-year-old woman with a history of diabetes mellitus on insulin therapy, history of hypertension presented emergency department with a complaint of lightheadedness and dizziness. Patient stated he recently gained weight, saw her PCP who was managing her diuretics. Patient was put on a trial of hydrochlorothiazide, bumetanide and metolazone at different times. She stated this did not help her weight gain. At a point she was told her blood pressure was running low and her losartan discontinued. All the diuretics have been stopped except metolazone. She presented to the ED with a complaint of feeling faint. Blood work done in the ED demonstrated acute renal failure with creatinine elevated to 1.7 compared to baseline of 0.6. Her blood pressure fluctuates with the lower systolic blood pressure 87. She was orthostatic in the ED. Patient is suspected to be dehydrated from excessive diuresis. She was placed under observation for further management. . Hospital Course: Patient treated with IV normal saline. Her creatinine improved to normal. Acute renal failure resolved. She was still orthostatic. She has been told orthostatic precautions to prevent falls. She was complaining her lower extremities are developing edema, otherwise no other complain. Metolazone has been discontinued. Patient was seen by nephrology. Upon further discussion with Dr. Le, he recommended Bumex 1 mg once daily to treat her edema. Patient will follow with him within 1 week. Vital Signs/Physical Exam: Temp Pulse Resp BP Pulse Ox 97.0 F 78 18 130/68 99 12/29/19 08:00 12/29/19 08:00 12/29/19 08:00 12/29/19 08:00 12/29/19 08:00 General: Alert, In no apparent distress, Oriented x3 HEENT: Mucous membr. moist/pink Neck: Supple Respiratory: Clear to auscultation bilaterally, Normal air movement Cardiovascular: Regular rate/rhythm, Normal S1 S2, Edema (Trade bilateral lower extremity pitting edema.) Gastrointestinal: Normal bowel sounds, Soft and benign, No tenderness Musculoskeletal: No erythema Integumentary: No rashes Neurological: Other (Nonfocal.) Laboratory Data at Discharge: WBC 5.1 K/uL (4.3-10.9) D 12/29/19 05:21 Hgb 11.0 g/dL (12.0-15.0) L 12/29/19 05:21 Hct 31.5 % (36.0-45.0) L 12/29/19 05:21 Plt Count 280 K/uL (152-406) 12/29/19 05:21 Sodium 142 mmol/L (136-145) 12/29/19 05:21 Potassium Cancelled 12/29/19 Unknown BUN 53 mg/dL (7-18) H D 12/29/19 05:21 Creatinine 1.16 mg/dL (0.55-1.3) 12/29/19 05:21 Glucose 163 mg/dL (74-106) H 12/29/19 05:21 Phosphorus 2.7 mg/dL (2.5-4.9) 12/29/19 05:21 Magnesium 2.6 mg/dL (1.8-2.4) H 12/29/19 05:21 Home Medications: Thyroid,Pork [Thyroid] 30 mg PO DAILY 08/03/17 Aspirin [Jenna Chewable Aspirin] 81 mg PO DAILY 12/28/19 Cholecalciferol (Vitamin D3) [Vitamin D3] 1,000 unit PO DAILY 12/28/19 Insulin Aspart [Novolog Flexpen] See Protocol SQ ACHS 12/28/19 Insulin Degludec [Tresiba Flextouch U-200] 30 unit SQ DAILY 12/28/19 Bumetanide [Bumex] 1 mg PO DAILY #30 tab 12/29/19 New Medications: Bumetanide [Bumex] 1 mg PO DAILY #30 tab Diet: ADA Activity: Observe orthostatic precautions. Precautions discussed. Followup: Jeet Manley MD [Primary Care Provider] - Tram Elkins MD [ACTIVE - CAN ADMIT] - 1 Week
[2019-12-29 13:56] VITALS: BP 146/67; TEMP 97.9
[2019-12-30] MEDS ORDERED: INSULIN GLARGINE 100 UNITS/ML SQ SCH (08:00)
== END 2019-12-29 13:16 | disposition home or self-care (01) ==
LOC: ER 07:44 → ERHOLD 12:01 → 2ND 12:39
PROVIDERS: ADMIT Internal Medicine; ATTEND Internal Medicine
DX: I95.1 Orthostatic hypotension (principal); N17.9 Acute kidney failure, unspecified; E11.65 Type 2 diabetes mellitus with hyperglycemia; Z79.4 Long term (current) use of insulin; Z20.828 Contact with and (suspected) exposure to other viral communicable diseases; E66.9 Obesity, unspecified; I10 Essential (primary) hypertension; E03.9 Hypothyroidism, unspecified; E87.6 Hypokalemia; Z68.31 Body mass index [BMI] 31.0-31.9, adult
CPT/HCPCS: 93005; 85025 ×2; 80048 ×2; 36415 ×2; 83735; 82550; 84100; 82947 ×6; 84443 ×2; 82570; 84156; 96374; 99285; U0002; J1644 ×3; J7040; J7030; G0378 ×3; 81003; 81015

== ENCOUNTER 2020-04-30 09:45 | Emergency (ER) | payer BC ==
--- OUTSIDE RECORDS SUMMARY | 2020-04-30 09:48 | XMS REPORT | Continuity of Care Document ---
:1970 Author Organization [facility] t Address [address] [place] [address] Care Team Providers Name Role Phone Pob, Lab Main Attending Clinician Unavailable Doctor Unassigned, Name Attending Clinician Unavailable Payers Payer Name Policy Type Policy Number Effective Date Expiration Date S ource Problems Condition Condition Condition Status Onset Resolution Last Treating Co mments Source Name Details Category Date Date Treatment Clinician Date Type 2 Type 2 Problem Active 2019-03 [place] diabetes Diabetes 2-03 Family mellitus Mellitus 00:00: Practi c 00 e Essential Essential Problem Active Bert summer hypertensi Hypertensi 5-21 Fa mary ann on on 00:00: Practic 00 e Gastropare Gastropare Problem Active [facility] sis sis 5-21 Family syndrome Syndrome 00:00: Practi c 00 e Hyperlipid Hyperlipid Problem Active [place] emia emia 8-11 Family 00:00: Practic 00 e Hypothyroi Hypothyroi Problem Active [place] dism dism 09-12 Family 00:00: Practic 00 e Retinopath Retinopath Problem Active [facility] y due to y Due to 09-12 Family type 2 Type 2 00:00: Practic diabetes Diabetes 00 e mellitus Mellitus Allergies, Adverse Reactions, Alerts Allergy Allergy Status Severity Reaction(s) Onset Inactive Treating Comm ents Source Name Type Date Date Clinician No Known DA Active U 2019-0 [facility] Allergie 6-18 [place] s 00:00: d 00 [facility] Metformi Allergy Active Diarrhea Baird ge n [...] Name Adult Adult No 1 Q1D Adult [facility] Aspirin Aspirin Aspirin Family Regimen 81 Regimen 81 Regimen 81 Practic mg mg mg e tablet,mary tablet,mary tablet,del yed release yed release ayed Take 1 Take 1 release tablet tablet Take 1 every day every day tablet by oral by oral every day route. route. by oral route. bumetanide bumetanide No bumetanide [place] 1 mg tablet 1 mg tablet 1 mg F amily tablet Practic e erythromyci erythromyci No erythromyc [facility] n 5 mg/gram n 5 mg/gram in 5 F amily (0.5 %) eye (0.5 %) eye mg/gram Practic ointment ointment (0.5 %) e eye ointment [facility] 5 [facility] No 1 Q1D [facility] mg tablet mg tablet mg tablet Family Take 1 Take 1 Take 1 Practic tablet tablet tablet e every day every day every day by oral by oral by oral route for route for route for 30 days. 30 days. 30 days. FreeStyle FreeStyle No FreeStyle [facility] Tea 14 Tea 14 Tea 14 Fam calderon Day [place] Day [place] Day [place] Practic e FreeStyle FreeStyle No FreeStyle [facility] Tea 14 Tea 14 Tea 14 Fam calderon Day Sensor Day Sensor Day Sensor Practic e FreeStyle FreeStyle No FreeStyle [place] Tea 14 Tea 14 Tea 14 Fam calderon Day Sensor Day Sensor Day Sensor Practic kit kit kit e insulin insulin No insulin Villag e aspart aspart aspart Family (U-100) 100 (U-100) 100 (U-100) Practic unit/mL (3 unit/mL (3 100 e mL) mL) unit/mL (3 subcutaneou subcutaneou mL) s pen Use s pen Use subcutaneo before before us pen Use meals as meals as before needed needed meals as using CF using CF needed 1:30; TDD 1:30; TDD using CF 40 40 1:30; TDD 40 lisinopril lisinopril No 1 Q1D lisinopril [place] 2.5 mg 2.5 mg 2.5 mg Family tablet Take tablet Take tablet Practic 1 tablet 1 tablet Take 1 e every day every day tablet by oral by oral every day route. route. by oral route. 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 30 days. route for 30 days. OneTouch OneTouch No OneTouch Bert summer Verio test Verio test Verio test Family strips strips strips Practic e pen needle, pen needle, No pen V illage diabetic 32 diabetic 32 needle, Family gauge x gauge x diabetic Pract ic 32" 32" 32 gauge x e 532" Tradjenta 5 Tradjenta 5 No Tradjenta [place] mg tablet mg tablet 5 mg Famil y Take 1 Take 1 tablet Practic tablet tablet Take 1 e every day every day tablet by oral by oral every day route in route in by oral the morning the morning route in for 30 for 30 the days. days. morning for 30 days. Tresiba Tresiba No 30unit( Q1D Tresiba Bert summer FlexTouch FlexTouch s) FlexTouch Family U-200 U-200 [...] morning. morning. us route in the morning. Trulicity Trulicity No Trulicity [facility] 0.75 mg/0.5 0.75 mg/0.5 0.75 F amily mL mL mg/0.5 mL Practic subcutaneou subcutaneou subcutaneo e s pen s pen us pen injector injector injector Vitamin D3 Vitamin D3 No Vitamin D3 [facility] 1000 IU 1000 IU 1000 IU Family DAILY DAILY DAILY Practic e Vital Signs Vital Name Observation Time Observation Value Comments Source BP Diastolic 2020-02-07 00:00:00 78 mm[Hg] [facility] Height 2020-02-07 00:00:00 62 [in_i] [facility] BMI (Body Mass 2020-02-07 00:00:00 33 kg/m2 [facility] Family Index) Practice BP Systolic 2020-02-07 00:00:00 122 mm[Hg] [facility] Body Weight 2020-02-07 00:00:00 180.2 [lb_av] [facility] BP Diastolic 2019-12-24 00:00:00 78 mm[Hg] [facility] Height 2019-12-24 00:00:00 62 [in_i] [facility] BMI (Body Mass 2019-12-24 00:00:00 31.5 kg/m2 [facility] Family Index) Practice BP Systolic 2019-12-24 00:00:00 110 mm[Hg] [facility] Body Weight 2019-12-24 00:00:00 172 [lb_av] [facility] Procedures This patient has no known procedures. Plan of Care Planned Activity Planned Date Details Comments Source Diagnostic Test 2020-02-07 glucose, fingerstick, Bert Gould Pending 00:00:00 blood [code = Practice glucose, fingerstick, blood] Diagnostic Test 2020-02-07 hemoglobin A1C, Basil stewart Pending 00:00:00 fingerstick [code = Practice hemoglobin A1C, fingerstick] Encounters Start End Encounter Admission Attending Care Care Encounter Source Date/Time Date/Time Type Type Clinicians Facility Department ID 2020-04-09 2020-04-09 History Faculty Member Angus Beanvides [id number] 08:19:39 08:34:39 Visit Lab Main Gail [id number] [place] [id number] Miriam [id number] [address] 2020-04-09 2020-04-09 Orders Doctor LORI [id number] 00:00:00 00:00:00 Only Unassigned, KRISTAN [id number] [facility] [id number] 2020-02-07 2020-02-07 Samm [facility] [place] - [id number] V illage 00:00:00 00:00:00 Jie AlexanderNegar MD: [id number] YAZMIN_Mary nix [facility] [address], [place] [address] , Ph. 2020-01-08 2020-01-08 History Faculty Member Angus Benavides [facility] [id number] 07:39:55 07:54:55 Visit Lab Main [place] [id number] [place] [id number] Miriam [id number] [address] 2019-12-24 2019-12-24 Samm [facility] [place] - [id number] V illage 00:00:00 00:00:00 Jie AlexanderNegar MD: [id number] Laura nix [facility] [address], [place] [address] , Ph. Results Test Description Test Time Test Comments [...] N Completed by Nursing: NONT PRO-BRAIN NATRIURETIC [id number] 18:36:00 Test Item Value Reference Range Interpretation Comments NT PRO-BRAIN NATRIURETIC PEPTI 368 PG/ML 0-100 H (test code = PROBNP) Completed by Nursing: [id number] 18:36:00 Test Item Value Reference Range Interpretation [...] Completed by Nursing: NODRUGS OF ABUSE SCREEN [id number] 18:36:00 Test Item Value Reference Range Interpretation [...] NEGATIVE SCcutoff <300 NG/ML [place]) BASIC METABOLIC [id number] 18:32:00 Test Item Value Reference Range Interpretation [...] N Completed by Nursing: NONT PRO-BRAIN NATRIURETIC [id number] 18:32:00 Test Item Value Reference Range Interpretation Comments NT PRO-BRAIN NATRIURETIC PEPTI (test PG/ML 0-100 code = PROBNP) Completed by Nursing: [id number] 18:32:00 Test Item Value Reference Range Interpretation Comments TROPONIN-I (test code = TROPI) NG/ML 0.000-0.045 Completed by Nursing: NOCBC W/AUTO [id number] 18:20:00 Test Item Value Reference Range Interpretation [...] CRITERIA = MDIFF) - CT HEAD/BRAIN W/O [id number] 17:04:00 Name: MORELIA ROMEO [facility] : 1970 Age/S: 49 / F [id number] Unit #: [id number] Loc: [place] [address] Phys: Domenica Quinn MD Acct: [id number] Dis Date: Status: PRE ER PHONE #: [phone] Exam Date: 08/23/2019 1639 FAX #: Reason: syncope EXAMS: CPT: [id number] CT HEAD/BRAIN W/O CONT 14931 INDICATIONS: syncope TECHNIQUE: Contiguous axial CT sections were obtained from the skull base to the vertex without intravenous contrast administration. CT DLP dose: 804 mGy centimeters. Iterative dose reduction technique utilized. Location: [id number]: None available. FINDINGS: The brain parenchyma is [...] MD; Ly JOSE; Jeet Manley MD Technologist:Praveena Lora RT(R)(CT) CTDI: DLP: Trnscb Date/Time: 08/23/2019 (1704) [email or web address] Orig Print D/T: S: 08/23/2019 (7256) PAGE 1 Signed Report
[2020-04-30] MEDS ORDERED: dexAMETHasone 10 MG/ML VIAL ONE (13:00)
[2020-04-30] MEDS ORDERED: NA CHLORIDE 0.9% 500 ML ONE (13:01)
[2020-04-30] MEDS ORDERED: MEPERIDINE HCL 25 MG/ML SYR ONE (13:01)
[2020-04-30] MEDS ORDERED: NA CHLORIDE 0.9% 50 ML ONE (13:01)
--- NOTE | 2020-04-30 13:03 | RAD REPORT ---
EXAM DESCRIPTION: CT - Head Brain Wo Cont - 04/30/2020 12:51 pm CLINICAL HISTORY: HEADACHE Headache, drowsiness COMPARISON: No comparisons TECHNIQUE: All CT scans are performed using dose optimization technique as appropriate and may inclu de automated exposure control or mA/KV adjustment according to patient size. FINDINGS: No intracranial hemorrhage, hydrocephalus or extra-axial fluid collection.No areas of brai n edema or evidence of midline shift. The paranasal sinuses and mastoids are clear. The calvarium is intact. Mild vertebral atherosclerosis . IMPRESSION: No acute intracranial abnormality.
[2020-04-30] MEDS ORDERED: ACETAMINOPHEN 500 MG TAB ONE (14:06)
--- NOTE | 2020-04-30 14:11 | EDPHYS ---
Physician Documentation [facility] Name: Alyson Mayfield Age: 50 yrs Sex: Female : 1970 Arrival Date: 04/30/2020 Time: 09:48 Bed 23 Private MD: ED Physician Ruddy Spaulding HPI: 04/30 14:06 This 50 yrs old Female presents to ER via Ambulatory with complaints of rn Headache, Nausea, Decreased Appetite. 14:06 The patient complains of pain to the top of head and forehead. rn 14:06 The patient describes the headache as aching. Onset: The symptoms/episode rn began/occurred 3 day(s) ago. Severity of symptoms: At its worst the pain was moderate, in the emergency department the pain is unchanged. The symptoms are alleviated by nothing. the symptoms are aggravated by nothing. The patient has not experienced similar symptoms in the past. Reports new onset headache, for 3 days, moderate pain, front and top of head, no vomiting/focal neuro complaint. No fever. Reports tested for COVID "so many times" already. No change in medication. No head injury.. 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 - Social history:: Smoking status: Patient denies any tobacco usage or history of. - Family history:: not pertinent. - Hospitalizations: : No recent hospitalization is reported. ROS: 14:06 Constitutional: Negative for fever, chills, and weight loss, Eyes: Negative for injury, rn pain, redness, and discharge, ENT: Negative for injury, pain, and discharge, Neck: Negative for injury, pain, and swelling, Cardiovascular: Negative for chest pain, palpitations, and edema, Respiratory: Negative for shortness of breath, cough, wheezing, and pleuritic chest pain, Abdomen/GI: Negative for abdominal pain, diarrhea, and constipation, MS/Extremity: Negative for injury and deformity, Skin: Negative for injury, rash, and discoloration, Neuro: Negative for weakness, numbness, tingling, and seizure. Exam: 14:06 Constitutional: This is a well developed, well nourished patient who is awake, alert, rn and in no acute distress. Head/Face: Normocephalic, atraumatic. Eyes: Pupils equal round and reactive to light, extra-ocular motions intact. Lids and lashes normal. Conjunctiva and sclera are non-icteric and not injected. Cornea within normal limits. Periorbital areas with no swelling, redness, or edema. Neck: Supple, full range of motion without nuchal rigidity, or vertebral point tenderness. No Meningismus. Cardiovascular: Regular rate and rhythm. No pulse deficits. Respiratory: No increased work of breathing, no retractions or nasal flaring. Abdomen/GI: soft, non-tender Skin: Warm, dry MS/ Extremity: Pulses equal, no cyanosis. Neurovascular intact. Full, normal range of motion. Equal circumference. Neuro: Awake and alert, GCS 15, oriented to person, place, time, and situation. Cranial nerves II-XII grossly intact. Motor strength 5/5 in all extremities. Sensory grossly intact. Cerebellar exam normal. Vital Signs: 10:22 BP 120 / 67; Pulse 83; Resp 16 S; Temp 98(O); Pulse Ox 99% on R/A; Weight 80.74 kg (R); ca1 Height 5 ft. 2 in. (157.48 cm) (R); Pain 8/10; 12:15 BP 121 / 70; Pulse 76; Resp 15; Pulse Ox 99% on R/A; zb 12:30 BP 124 / 71; Pulse 70; Resp 16; Pulse Ox 99% on R/A; zb 13:56 BP 137 / 73; Pulse 71; Resp 16; Pulse Ox 95% on R/A; zb 10:22 Body Mass Index 32.56 (80.74 kg, 157.48 cm) ca1 [place] Coma Score: 14:06 Eye Response: spontaneous(4). Verbal Response: oriented(5). Motor Response: obeys rn commands(6). Total: 15. MDM: 12:21 Patient medically screened. rn 14:06 Differential diagnosis: hypertensive headache, migraine, neoplasm, tension headache, rn vasomotor headache. Data reviewed: vital signs, nurses notes, lab test result(s), radiologic studies, CT scan, and as a result, I will discharge patient. Counseling: I had a detailed discussion with the patient and/or guardian regarding: the historical points, exam findings, and any diagnostic results supporting the discharge/admit diagnosis, lab results, radiology results, the need for outpatient follow up, to return to the emergency department if symptoms worsen or persist or if there are any questions or concerns that arise at home. Response to treatment: the patient's symptoms have mildly improved after treatment, and as a result, I will discharge patient. Special discussion: I discussed with the patient/guardian in detail that at this point there is no indication for admission to the hospital. It is understood, however, that if the symptoms persist or worsen the patient needs to return immediately for re-evaluation. ED course: CT head neg for acute findings, normal neuro exam, neg [place] Z[place]t, no meningeal signs, will dc home with neuro f/u as needed.. 04/30 12:39 Order name: [place] Screen Profile; Complete Time: 13:57 rn 04/30 12:39 Order name: CT Head Brain wo Cont; Complete Time: 13:05 rn 04/30 12:39 Order name: IV Start; Complete Time: 13:09 rn Administered Medications: 13:08 Drug: Decadron - Dexamethasone 10 mg Route: IVP; Site: right antecubital; zb 13:55 Follow up: Response: No adverse reaction; No change in condition zb 13:09 Drug: NS 0.9% 500 ml Route: IV; Rate: bolus; Site: right antecubital; zb 13:55 Follow up: Response: No adverse reaction; IV Status: Completed infusion; IV Intake: zb 500ml 13:09 Drug: Demerol 25 mg {Note: RASS 0.} Route: IVP; Site: right antecubital; zb 13:55 Follow up: Response: No adverse reaction; No change in condition zb 13:50 Drug: Tylenol 1000 mg Route: PO; zb 14:20 Follow up: Response: No adverse reaction; Marked relief of symptoms; Pain is decreased zb Disposition: 04/30/20 14:10 Discharged to Home. Impression: Headache. - Condition is Stable. - Discharge Instructions: General Headache Without Cause. - Medication Reconciliation Form, Thank You Letter, Antibiotic Education, Prescription Opioid Use, Work release form form. - Follow up: Private Physician; When: As needed; Reason: Recheck today's complaints, Re-evaluation by your physician. - Problem is new. - Symptoms have improved. Signatures: Dispatcher [employer] EDMS Ruddy Spaulding MD MD rn Acob, ROB Ghosh RN, Zipporah, RN RN zb Corrections: (The following items were deleted from the chart) 14:27 14:10 04/30/2020 14:10 Discharged to Home. Impression: Headache. Condition is Stable. zb Forms are Medication Reconciliation Form, Thank You Letter, Antibiotic Education, Prescription Opioid Use. Follow up: Private Physician; When: As needed; Reason: Recheck today's complaints, Re-evaluation by your physician. Problem is new. Symptoms have improved. rn
--- NOTE | 2020-04-30 14:11 | ER ---
Nurse's Notes [facility] Name: Alyson Mayfield Age: 50 yrs Sex: Female : 1970 Arrival Date: 04/30/2020 Time: 09:48 Bed 23 Private MD: Diagnosis: Headache Presentation: 04/30 10:22 Chief complaint: Patient states: Headache, since Tuesday, constant. Starts at the middle ca1 of the head and to the front. Reports No appetite, nausea. Reports dry cough since some time last year. Coronavirus screen: Client denies travel out of the [place] in the last 14 days. cough unrelated to allergies, headache, nausea, Client presents with at least one sign or symptom that may indicate coronavirus-19. Standard/surgical mask placed on the client. Provider contacted for isolation considerations. Ebola Screen: Patient negative for fever greater than or equal to 101.5 degrees Fahrenheit, and additional compatible Ebola Virus Disease symptoms Patient denies exposure to infectious person. Patient denies travel to an Ebola-affected area in the 21 days before illness onset. No symptoms or risks identified at this time. Initial Sepsis Screen: Does the patient meet any 2 criteria? No. Patient's initial sepsis screen is negative. Does the patient have a suspected source of infection? No. Patient's initial sepsis screen is negative. Risk Assessment: Do you want to hurt yourself or someone else? Patient reports no desire to harm self or others. Onset of symptoms was April 30, 2020. 10:22 Method Of Arrival: Ambulatory ca1 10:22 Acuity: KLAUS 3 ca1 Triage Assessment: 14:27 Headache History: Denies prior headaches. 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 - Social history:: Smoking status: Patient denies any tobacco usage or history of. - Family history:: not pertinent. - Hospitalizations: : No recent hospitalization is reported. Screenin:22 Abuse screen: Denies threats or abuse. Denies injuries from another. Nutritional zb screening: No deficits noted. Tuberculosis screening: No symptoms or risk factors identified. Fall Risk None identified. Assessment: 12:20 General: Appears in no apparent distress. uncomfortable, Behavior is calm, cooperative, zb appropriate for age. Pain: Complains of pain in forehead Pain radiates to left parietal area, right parietal area, occipital area and base of the skull Pain currently is 9 out of 10 on a pain scale. Quality of pain is described as aching, Pain began Tuesday Is continuous, Also complains of decreased appetite, nausea. 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 Gait is steady, Speech is normal, Facial symmetry appears normal, Pupils are PERRLA, Intact Reports blurred vision since chronic headache in entire since Tuesday Denies weakness numbness photophobia. Cardiovascular: Heart tones S1 S2 present Capillary refill < 3 seconds in bilateral fingers Patient's skin is warm and dry. Respiratory: Reports shortness of breath since chronic Airway is patent Respiratory effort is even, unlabored, Respiratory pattern is regular, symmetrical, Breath sounds are clear bilaterally. GI: Abdomen is round non-distended. : No signs and/or symptoms were reported regarding the genitourinary system. EENT: No signs and/or symptoms were reported regarding the EENT system. Derm: Skin is intact, is healthy with good turgor, Skin is dry, Skin is normal, Skin temperature is warm. Musculoskeletal: Circulation, motion, and sensation intact. Capillary refill < 3 seconds, in bilateral fingers. Range of motion: intact in all extremities. 12:23 Reassessment: ECP at bedside. zb 13:20 Reassessment: Patient appears in no apparent distress at this time. Patient and/or zb family updated on plan of care and expected duration. Pain level reassessed. Patient is alert, oriented x 3, equal unlabored respirations, skin warm/dry/pink. pt states that her headache has increased since the medication. notified ECP. pain medication prescribed and given. PO fluids given to patient and patient repositioned. 14:01 Reassessment: ECP at bedside discussing plan of care. zb 14:26 Reassessment: Patient appears in no apparent distress at this time. Patient and/or zb family updated on plan of care and expected duration. Pain level reassessed. Patient is alert, oriented x 3, equal unlabored respirations, skin warm/dry/pink. patient d/c gait steady and even. states she feel better from the medication. Patient states feeling better. Patient states symptoms have improved. Vital Signs: 10:22 BP 120 / 67; Pulse 83; Resp 16 S; Temp 98(O); Pulse Ox 99% on R/A; Weight 80.74 kg (R); ca1 Height 5 ft. 2 in. (157.48 cm) (R); Pain 8/10; 12:15 BP 121 / 70; Pulse 76; Resp 15; Pulse Ox 99% on R/A; zb 12:30 BP 124 / 71; Pulse 70; Resp 16; Pulse Ox 99% on R/A; zb 13:56 BP 137 / 73; Pulse 71; Resp 16; Pulse Ox 95% on R/A; zb 10:22 Body Mass Index 32.56 (80.74 kg, 157.48 cm) ca1 [place] Coma Score: 14:06 Eye Response: spontaneous(4). Verbal Response: oriented(5). Motor Response: obeys rn commands(6). Total: 15. ED Course: 09:48 Patient arrived in ED. as 10:24 Triage completed. ca1 10:26 Arm band placed on right wrist. ca1 12:19 Jennifer Renteria, RN is Primary Nurse. zb 12:21 Ruddy Spaulding MD is Attending Physician. rn 12:23 Patient has correct armband on for positive identification. Pulse ox on. NIBP on. Door zb closed. Noise minimized. 12:51 CT Head Brain wo Cont In Process Unspecified. EDMS 13:00 Inserted saline lock: 20 gauge in right antecubital area, using aseptic technique. zb Blood collected. 14:26 No provider procedures requiring assistance completed. IV discontinued, intact, zb bleeding controlled, No redness/swelling at site. Pressure dressing applied. Administered Medications: 13:08 Drug: Decadron - Dexamethasone 10 mg Route: IVP; Site: right antecubital; zb 13:55 Follow up: Response: No adverse reaction; No change in condition zb 13:09 Drug: NS 0.9% 500 ml Route: IV; Rate: bolus; Site: right antecubital; zb 13:55 Follow up: Response: No adverse reaction; IV Status: Completed infusion; IV Intake: zb 500ml 13:09 Drug: Demerol 25 mg {Note: RASS 0.} Route: IVP; Site: right antecubital; zb 13:55 Follow up: Response: No adverse reaction; No change in condition zb 13:50 Drug: Tylenol 1000 mg Route: PO; zb 14:20 Follow up: Response: No adverse reaction; Marked relief of symptoms; Pain is decreased zb Intake: 13:55 IV: 500ml; Total: 500ml. zb Outcome: 14:10 Discharge ordered by . rn 14:26 Discharged to home ambulatory. zb 14:26 Condition: stable 14:26 Discharge instructions given to patient, Instructed on discharge instructions, follow up and referral plans. Demonstrated understanding of instructions, follow-up care. 14:27 Patient left the ED. zb Signatures: Dispatcher [employer] Leslee Dover Roman, MD MD rn Acob, Cheryl, RN RN ca1 Brown, Zipporah, RN RN zb
[2020-04-30 15:03] VITALS: TEMP 98
[2020-04-30 15:06] VITALS: BP 137/73; O2SAT 95
== END 2020-04-30 14:27 | disposition home or self-care (01) ==
LOC: ER 09:45
DX: R51.9 Headache, unspecified (principal); I11.0 Hypertensive heart disease with heart failure; I50.9 Heart failure, unspecified; E11.9 Type 2 diabetes mellitus without complications; Z79.4 Long term (current) use of insulin
CPT/HCPCS: 96361; 36415; 86308; 70450; 96375; 96374; 99284; J1100; J2175; J7040

== ENCOUNTER 2020-06-06 19:47 | Emergency (ER) | payer BC ==
--- OUTSIDE RECORDS SUMMARY | 2020-06-06 19:50 | XMS REPORT | Continuity of Care Document ---
:1970 Author Organization [facility] t Address [address] [place] [address] Care Team Providers Name Role Phone Kermit VILCHIS, Gene Attending Clinician Payers Payer Name Policy Type Policy [...] Date Clinician No Known DA Active U 2020-0 [facility]ie 6-18 [place] s 00:00: d 00 [facility] Metformi Allergy Active Diarrhea Baird ge [...] Name Adult Adult No 1 Q1D Adult [facility] Aspirin Aspirin Aspirin Family Regimen 81 [...] tablet Practic e erythromyci erythromyci No erythromyc [facility] n 5 mg/gram n 5 mg/gram in 5 F amily (0.5 %) eye (0.5 %) eye mg/gram Practic ointment ointment (0.5 %) e eye ointment [facility] mg tablet mg tablet mg tablet Family Take 1 Take 1 Take 1 Practic tablet tablet tablet e every day every day every day by oral by oral by oral route for route for route for 30 days. 30 days. 30 days. FreeStyle FreeStyle No FreeStyle [facility] Tea 14 Tea 14 Tea 14 Fam calderon Day Laceys Spring Day Laceys Spring Day Laceys Spring Practic e FreeStyle FreeStyle No FreeStyle [facility] Tea 14 Tea 14 Tea 14 [...] every day route. route. by oral route. 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 Trulicity Trulicity No Trulicity [facility] 0.75 mg/0.5 0.75 mg/0.5 0.75 F amily mL mL mg/0.5 mL Practic subcutaneou subcutaneou subcutaneo e s pen s pen us pen injector injector injector Vitamin D3 Vitamin D3 No Vitamin D3 [facility] 1000 IU 1000 IU 1000 IU Family DAILY DAILY DAILY Practic e Vital Signs Vital Name Observation Time Observation Value Comments Source BP Diastolic 2020-02-07 00:00:00 78 mm[Hg] [facility] Height 2020-02-07 00:00:00 62 [in_i] [facility] BMI (Body Mass 2020-02-07 00:00:00 33 kg/m2 [facility] Practice BP Systolic 2020-02-07 00:00:00 122 mm[Hg] [facility] Body Weight 2020-02-07 00:00:00 180.2 [lb_av] [facility] BP Diastolic 2019-12-24 00:00:00 78 mm[Hg] [facility] Height 2019-12-24 00:00:00 62 [in_i] [facility] BMI (Body Mass 2019-12-24 00:00:00 31.5 kg/m2 [facility] Practice BP Systolic 2019-12-24 00:00:00 110 mm[Hg] [facility] Body Weight 2019-12-24 00:00:00 172 [lb_av] [facility] Procedures This patient has no known [...] Date/Time Type Type Clinicians Facility Department ID 2020-05-28 2020-05-28 Telephone Kermit, MIHORACE [id number] 00:00:00 00:00:00 Benson Reynolds [id number] [place]ana [id number] Miriam [phone] nal [address] [place] [address] 2020-05-23 2020-05-23 Office Kermit [facility] [id number] 08:19:24 10:59:14 Visit Benson Reynolds [id number] [place] [phone] [facility] 092 [facility] 2020-02-07 2020-02-07 Samm VFP [place] - [id number] V illage 00:00:00 00:00:00 J[facility] - Pracdonnie sanz MD: [id number] YAZMIN_Mary nix [facility] [address], [place] [address] , Ph. 2019-12-24 2019-12-24 Samm NASHP [place] - [id number] V illage 00:00:00 00:00:00 Jie AlexanderNegar - Pracdonnie sanz MD: [id number] YAZMIN_Mary nix [facility] [address], [place] [address] , Ph. Results Test Description Test Time [...] N Completed by Nursing: NONT PRO-BRAIN NATRIURETIC [id number] 18:36:00 Test Item Value Reference Range Interpretation Comments NT PRO-BRAIN NATRIURETIC PEPTI 368 PG/ML 0-100 H (test code = PROBNP) Completed by Nursing: [id number] 18:36:00 Test Item Value Reference Range Interpretation [...] Completed by Nursing: NODRUGS OF ABUSE SCREEN [id number] 18:36:00 Test Item Value Reference Range Interpretation [...] NEGATIVE SCcutoff <300 NG/ML [place]) BASIC METABOLIC [id number] 18:32:00 Test Item Value Reference Range Interpretation [...] N Completed by Nursing: NONT PRO-BRAIN NATRIURETIC [id number] 18:32:00 Test Item Value Reference Range Interpretation Comments NT PRO-BRAIN NATRIURETIC PEPTI (test PG/ML 0-100 code = PROBNP) Completed by Nursing: [id number] 18:32:00 Test Item Value Reference Range Interpretation Comments TROPONIN-I (test code = TROPI) NG/ML 0.000-0.045 Completed by Nursing: NOCBC W/AUTO [id number] 18:20:00 Test Item Value Reference Range Interpretation [...] CRITERIA = MDIFF) - CT HEAD/BRAIN W/O [id number] 17:04:00 Name: MORELIA ROMEO [facility] : 1970 Age/S: 49 / F [address] Unit #: [id number] Loc: [place] [address] Phys: Domenica Quinn MD Acct: [id number] Dis Date: Status: PRE ER PHONE #: [phone] Exam Date: 08/23/2019 1636 FAX #: Reason: syncope EXAMS: CPT: [id number] CT HEAD/BRAIN W/O CONT 65015 INDICATIONS: syncope TECHNIQUE: Contiguous axial CT sections were obtained from the skull base to the vertex without intravenous contrast administration. CT DLP dose: 804 mGy centimeters. Iterative dose reduction technique utilized. Location: [id number]: None available. FINDINGS: The brain parenchyma is [...] Lora, RT(R)(CT) CTDI: DLP: Trnscb Date/Time: 08/23/2019 (3618) [id number] Orig Print D/T: S: 08/23/2019 (2347) PAGE 1 Signed Report
[2020-06-06] MEDS ORDERED: METOCLOPRAMIDE 10 MG/2mL INJ ONE (20:54)
[2020-06-06] MEDS ORDERED: DIPHENHYDRAMINE 50 MG/ML VIAL ONE (20:55)
--- NOTE | 2020-06-06 21:52 | EDPHYS ---
Physician Documentation [facility] Name: Alyson Mayfield Age: 50 yrs Sex: Female : 1970 Arrival Date: 06/06/2020 Time: 19:50 Bed 28 Private MD: Mick Fu HPI: 06/06 21:52 This 50 yrs old Female presents to ER via Ambulatory with complaints of jr8 Headache. 21:52 Patient presents for PAN x 2 months. She reports seeing a neurologist but they referred jr8 her to get MRI which she can not afford. She has been prescribed gabapentin but it does not work. 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 - Social history:: Smoking status: Patient denies any tobacco usage or history of. ROS: 21:54 Eyes: Negative for injury, pain, redness, and discharge, Cardiovascular: Negative for jr8 chest pain, palpitations, and edema, Respiratory: Negative for shortness of breath, cough, wheezing, and pleuritic chest pain, Abdomen/GI: Negative for abdominal pain, nausea, vomiting, diarrhea, and constipation, MS/Extremity: Negative for injury and deformity, Skin: Negative for injury, rash, and discoloration. 21:54 Neuro: Positive for headache. Exam: 21:54 Constitutional: This is a well developed, well nourished patient who is awake, alert, jr8 and in no acute distress. Eyes: Pupils equal round and reactive to light, extra-ocular motions intact. Lids and lashes normal. Conjunctiva and sclera are non-icteric and not injected. Cornea within normal limits. Periorbital areas with no swelling, redness, or edema. Chest/axilla: Normal chest wall appearance and motion. Nontender with no deformity. No lesions are appreciated. Cardiovascular: Regular rate and rhythm with a normal S1 and S2. No gallops, murmurs, or rubs. Normal PMI, no JVD. No pulse deficits. Respiratory: Lungs have equal breath sounds bilaterally, clear to auscultation and percussion. No rales, rhonchi or wheezes noted. No increased work of breathing, no retractions or nasal flaring. Abdomen/GI: Soft, non-tender, with normal bowel sounds. No distension or tympany. No guarding or rebound. No evidence of tenderness throughout. Back: No spinal tenderness. No costovertebral tenderness. Full range of motion. Neuro: Awake and alert, GCS 15, oriented to person, place, time, and situation. Cranial nerves II-XII grossly intact. Motor strength 5/5 in all extremities. Sensory grossly intact. Cerebellar exam normal. Normal gait. Vital Signs: 20:04 BP 149 / 72; Pulse 73; Resp 16 S; Temp 97.6(TE); Pulse Ox 99% on R/A; Weight 80.74 kg ca1 (R); Height 5 ft. 2 in. (157.48 cm) (R); Pain 9/10; 21:29 BP 161 / 85; Pulse 70; Resp 16; Pulse Ox 98% ; rr5 22:00 BP 166 / 76; Pulse 71; Resp 16; Pulse Ox 96% ; sf 20:04 Body Mass Index 32.56 (80.74 kg, 157.48 cm) ca1 MDM: 20:12 Patient medically screened. [facility] 21:48 Data reviewed: vital signs, nurses notes, old medical records, Negative CT in april [facility] lab test result(s), and as a result, I will discharge patient. Data interpreted: Pulse oximetry: on room air is 98 %. Interpretation: normal. Counseling: I had a detailed discussion with the patient and/or guardian regarding: the historical points, exam findings, and any diagnostic results supporting the discharge/admit diagnosis, lab results, the need for outpatient follow up, a neurologist, to return to the emergency department if symptoms worsen or persist or if there are any questions or concerns that arise at home. Response to treatment: the patient's symptoms have markedly improved after treatment. 21:55 ED course: Pt pain has been managed for this event. She is educated to follow up with [facility] neuro. She needs to get MRI. . 06/06 20:36 Order name: ESR; Complete Time: 21:33 tenzin 06/06 20:34 Order name: IV; Complete Time: 20:55 jr8 Administered Medications: 20:52 Drug: Benadryl (diphenhydrAMINE) 25 mg Route: IVP; Site: left antecubital; rr5 21:57 Follow up: Response: No adverse reaction; Pain is decreased sf 20:54 Drug: Reglan 10 mg Route: IVP; Site: left antecubital; rr5 21:57 Follow up: Response: No adverse reaction; Pain is decreased sf Disposition: 06/07 08:52 Co-signature as Attending Physician, Mick Gallardo MD I agree with the assessment and rdau plan of care. Disposition: 06/06/20 21:51 Discharged to Home. Impression: Migraine. - Condition is Stable. - Discharge Instructions: Migraine Headache. - Prescriptions for Fioricet 50- 325-40 mg Oral tablet - take 2 tablet by ORAL route every 4 hours as needed not to exceed 6 tablets per 24hrs; 20 tablet. - Medication Reconciliation Form, Thank You Letter, Antibiotic Education, Prescription Opioid Use form. - Follow up: Private Physician; When: 2 - 3 days; Reason: Recheck today's complaints, Continuance of care, Re-evaluation by your physician. - Problem is new. - Symptoms have improved. Signatures: Dispatcher [employer] EDDC Mick Gallardo MD MD cha Roszak, Josh, PA PA jr8 Jose Ponce, SELINA-C FACILITATOR-Cla1 Cullen Evans RN RN rr5 Davina Howell RN RN ca1 Josr Berry RN RN sf Corrections: (The following items were deleted from the chart) 06/06 22:09 21:51 06/06/2020 21:51 Discharged to Home. Impression: Migraine. Condition is Stable. sf Forms are Medication Reconciliation Form, Thank You Letter, Antibiotic Education, Prescription Opioid Use. Follow up: Private Physician; When: 2 - 3 days; Reason: Recheck today's complaints, Continuance of care, Re-evaluation by your physician. Problem is new. Symptoms have improved. jr8
--- NOTE | 2020-06-06 21:52 | ER ---
Nurse's Notes [facility] Name: Alyson Mayfield Age: 50 yrs Sex: Female : 1970 Arrival Date: 06/06/2020 Time: 19:50 Bed 28 Private MD: Diagnosis: Migraine Presentation: 06/06 20:04 Chief complaint: Patient states: Headache since 2 months. Denies N/V. Neurologist gave ca1 me gabapentin, no relief. Coronavirus screen: Client denies travel out of the [place] in the last 14 days. headache, Client presents with at least one sign or symptom that may indicate coronavirus-19. Standard/surgical mask placed on the client. Provider contacted for isolation considerations. Ebola Screen: Patient negative for fever greater than or equal to 101.5 degrees Fahrenheit, and additional compatible Ebola Virus Disease symptoms Patient denies exposure to infectious person. Patient denies travel to an Ebola-affected area in the 21 days before illness onset. No symptoms or risks identified at this time. Initial Sepsis Screen: Does the patient meet any 2 criteria? No. Patient's initial sepsis screen is negative. Does the patient have a suspected source of infection? No. Patient's initial sepsis screen is negative. Risk Assessment: Do you want to hurt yourself or someone else? Patient reports no desire to harm self or others. Onset of symptoms was June 06, 2020. 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 - Social history:: Smoking status: Patient denies any tobacco usage or history of. Screenin:18 Abuse screen: Denies threats or abuse. Denies injuries from another. Nutritional rr5 screening: No deficits noted. Tuberculosis screening: No symptoms or risk factors identified. Fall Risk None identified. Total Lamar Fall Scale indicates No Risk (0-24 pts). Assessment: 20:17 General: Appears in no apparent distress. uncomfortable, Behavior is calm, cooperative, rr5 appropriate for age. Pain: Complains of pain in top of head and forehead Pain currently is 7 out of 10 on a pain scale. Quality of pain is described as aching, Pain began gradually, Is intermittent. Neuro: Level of Consciousness is awake, alert, obeys commands, Oriented to person, place, time, Reports headache. Cardiovascular: Capillary refill < 3 seconds Patient's skin is warm and dry. Respiratory: Airway is patent Respiratory effort is even, unlabored, Respiratory pattern is regular, symmetrical. GI: No signs and/or symptoms were reported involving the gastrointestinal system. : No signs and/or symptoms were reported regarding the genitourinary system. EENT: No signs and/or symptoms were reported regarding the EENT system. Derm: Skin is intact, is healthy with good turgor, Skin temperature is warm. Musculoskeletal: Circulation, motion, and sensation intact. Capillary refill < 3 seconds. 21:56 Reassessment: Patient appears in no apparent distress at this time. Patient and/or sf family updated on plan of care and expected duration. Pain level reassessed. Patient is alert, oriented x 3, equal unlabored respirations, skin warm/dry/pink. Patient states feeling better. Patient states symptoms have improved. Vital Signs: 20:04 BP 149 / 72; Pulse 73; Resp 16 S; Temp 97.6(TE); Pulse Ox 99% on R/A; Weight 80.74 kg ca1 (R); Height 5 ft. 2 in. (157.48 cm) (R); Pain 9/10; 21:29 BP 161 / 85; Pulse 70; Resp 16; Pulse Ox 98% ; rr5 22:00 BP 166 / 76; Pulse 71; Resp 16; Pulse Ox 96% ; sf 20:04 Body Mass Index 32.56 (80.74 kg, 157.48 cm) ca1 ED Course: 19:50 Patient arrived in ED. ds1 20:08 Triage completed. ca1 20:09 Arm band placed on right wrist. ca1 20:12 Cullen Evans RN is Primary Nurse. rr5 20:12 Ethan Arenas PA is PHCP. jr8 20:12 Mick Gallardo MD is Attending Physician. jr8 20:18 Patient has correct armband on for positive identification. Bed in low position. Call rr5 light in reach. Pulse ox on. NIBP on. 20:55 Inserted saline lock: 20 gauge in left antecubital area, using aseptic technique. Blood rr5 collected. 22:08 No provider procedures requiring assistance completed. IV discontinued, intact, sf bleeding controlled, No redness/swelling at site. Pressure dressing applied. Administered Medications: 20:52 Drug: Benadryl (diphenhydrAMINE) 25 mg Route: IVP; Site: left antecubital; rr5 21:57 Follow up: Response: No adverse reaction; Pain is decreased sf 20:54 Drug: Reglan 10 mg Route: IVP; Site: left antecubital; rr5 21:57 Follow up: Response: No adverse reaction; Pain is decreased sf Outcome: 21:51 Discharge ordered by . tenzin 22:08 Discharged to home ambulatory. sf 22:08 Condition: stable 22:08 Discharge instructions given to patient, Instructed on discharge instructions, follow up and referral plans. medication usage, Demonstrated understanding of instructions, follow-up care, medications, Prescriptions given X 1. 22:09 Patient left the ED. sf Signatures: Anusha Marie ds1 Ethan Arenas PA PA jr8 Cullen Evans RN RN rr5 Davina Howell RN RN ca1 Josr Berry RN RN sf Corrections: (The following items were deleted from the chart) 21:35 21:29 BP 141 / 85; Pulse 70bpm; Resp 16bpm; Pulse Ox 98%; rr5 rr5
[2020-06-07 13:40] VITALS: TEMP 97.6
[2020-06-07 13:42] VITALS: BP 161/85; O2SAT 98
== END 2020-06-06 22:09 | disposition home or self-care (01) ==
LOC: ER 19:47
DX: G43.909 Migraine, unspecified, not intractable, without status migrainosus (principal); I10 Essential (primary) hypertension; Z87.442 Personal history of urinary calculi; Z88.5 Allergy status to narcotic agent; Z88.8 Allergy status to other drugs, medicaments and biological substances
CPT/HCPCS: 36415; 85652; 96375; 96374; 99284; J2765; J1200

== ENCOUNTER 2020-08-25 15:50 | Emergency (ER) | payer BC ==
--- OUTSIDE RECORDS SUMMARY | 2020-08-25 15:54 | XMS REPORT | Continuity of Care Document ---
:1970 Author Organization [facility] t Address [address] [place] [address] Care Team Providers Name Role Phone Francisco VILCHIS Attending Clinician Payers Payer Name Policy Type Policy Number Effective Date Expiration Date S ource Problems Condition Condition Condition Status Onset Resolution Last Treating Co mments Source Name Details Category Date Date Treatment Clinician Date Obesity Obesity Problem Active 2020- [place] 5-06 Family 00:00: Practic 00 e Irritable Irritable Problem Active Bert summer bowel Bowel -22 Family syndrome Syndrome 00:00: Practi c 00 e Low blood Low Blood Problem Active 2019- Bert summer pressure Pressure 6-18 Family 00:00: Practic 00 e Dizziness Dizziness Problem Active 2019-0 Bert summer and and 6-18 Family giddiness Giddiness 00:00: Prac tic 00 e Proteinuri Proteinuri Problem Active 2019-0 [place] a a 5-21 Family 00:00: Practic 00 e Hypertensi Hypertensi Problem Active 2019-0 [place] ve ve 5-21 Family disorder Disorder 00:00: Practi c 00 e Localized Localized Problem Active 2019-0 Bert summer edema Edema 5-21 Family 00:00: Practic 00 e Essential Essential Problem Active 2019- Bert summer hypertensi Hypertensi 5-21 Fa mary ann on on 00:00: Practic 00 e Gastropare Gastropare Problem Active [place] sis sis 5-21 Family syndrome Syndrome 00:00: Practi c 00 e Urinary Urinary Problem Active 2018-03 Village tract Tract 0-02 Family infectious Infectious 00:00: Pr actic disease Disease 00 e Hyperlipid Hyperlipid Problem Active [place] emia emia 8-11 Family 00:00: Practic 00 e Elevated Elevated Problem Active Baird ge levels of Levels of 8-11 Fami ly transamina Transamina 00:00: Pr actic se & se & 00 e lactic Lactic acid Acid dehydrogen Dehydrogen ase ase Finding of Finding of Problem Active [place] urine Urine 811 Family substance Substance 00:00: Prac tic level Level 00 e Hypothyroi Hypothyroi Problem Active [place] dism dism 09-12 Family 00:00: Practic 00 e Retinopath Retinopath Problem Active [facility] y due to y Due to 09-12 Family type 2 Type 2 00:00: Practic diabetes Diabetes 00 e mellitus Mellitus Family Family Problem Active [facility] history of History of 09-12 Irma reese diabetes Diabetes 00:00: Practi c mellitus Mellitus 00 e Screening Screening Problem Active Bert summer for for 09-12 Family disorder Disorder 00:00: Practi c 00 e Tinea Tinea Problem Active [facility] pedis Pedis 09-12 Family 00:00: Practic 00 e Allergies, Adverse Reactions, Alerts Allergy Allergy Status Severity Reaction(s) Onset Inactive Treating Comm ents Source Name Type Date Date Clinician No Known DA Active [facility] Allergie 08-22 [facility] Tr[facility]ol Allergy Active Hives [place] to Family substanc Practic e e Metformi Allergy Active Diarrhea Baird ge n [...] Name Adult Adult No 1 Q1D Adult Village Aspirin Aspirin Aspirin Family Regimen 81 Regimen 81 Regimen 81 Practic mg mg mg e tablet,mary tablet,mary tablet,del yed release yed release ayed Take 1 Take 1 release tablet tablet Take 1 every day every day tablet by oral by oral every day route. route. by oral route. BD Sneha 2nd BD Sneha 2nd No BD Sneha Village Gen Pen Gen Pen 2nd Gen Family Needle 32 Needle 32 Pen Needle Practic gauge x gauge x 32 gauge x e " use " use " use as directed as directed as 4 times 4 times directed 4 daily daily times daily bumetanide bumetanide No bumetanide Village 1 mg tablet 1 mg tablet 1 mg F amily TAKE 1 TAKE 1 tablet Practic TABLET BY TABLET BY TAKE 1 e MOUTH ONCE MOUTH ONCE TABLET BY DAILY DAILY MOUTH ONCE DAILY ergocalcife ergocalcife No ergocalcif Village rol brodie yi Family (vitamin (vitamin (vitamin Pra ctic D2) 1,250 D2) 1,250 D2) 1,250 e mcg (50,000 mcg (50,000 mcg unit) unit) (50,000 capsule capsule unit) TAKE 1 TAKE 1 capsule CAPSULE BY CAPSULE BY TAKE 1 MOUTH ONCE MOUTH ONCE CAPSULE BY A WEEK A WEEK MOUTH ONCE A WEEK Farxiga 5 Farxiga 5 No Farxiga 5 Village mg tablet mg tablet mg tablet Family TAKE 1 TAKE 1 TAKE 1 Practic TABLET BY TABLET BY TABLET BY e MOUTH ONCE MOUTH ONCE MOUTH ONCE DAILY FOR DAILY FOR DAILY FOR 30 DAYS 30 DAYS 30 DAYS FreeStyle FreeStyle No FreeStyle [place] Tea 14 Tea 14 Tea 14 Fam calderon Day Dewey Day Dewey Day Dewey Practic e FreeStyle FreeStyle No FreeStyle [place] Tea 14 Tea 14 Tea 14 Fam calderon Day Sensor Day Sensor Day Sensor Practic e FreeStyle FreeStyle No FreeStyle Village Tea 14 Tea 14 Tea 14 Fam calderon Day Sensor Day Sensor Day Sensor Practic kit USE kit USE kit USE e DAILY BUT DAILY BUT DAILY BUT CHANGE CHANGE CHANGE EVERY 14 EVERY 14 EVERY 14 DAYS DAYS DAYS gabapentin gabapentin No gabapentin [place] 100 mg 100 mg 100 mg Family capsule capsule capsule Practi c TAKE 1 TAKE 1 TAKE 1 e CAPSULE BY CAPSULE BY CAPSULE BY MOUTH two MOUTH two MOUTH two times daily times daily times daily ASSOCIATE JUVENILE COURT JUDGE Thyroid ASSOCIATE JUVENILE COURT JUDGE Thyroid No ASSOCIATE JUVENILE COURT JUDGE Thyroid Village 30 mg 30 mg 30 mg Family tablet TAKE tablet TAKE tablet Practic 1 TABLET BY 1 TABLET BY TAKE 1 e MOUTH ONCE MOUTH ONCE TABLET BY DAILY FOR DAILY FOR MOUTH ONCE 30 DAYS 30 DAYS DAILY FOR 30 DAYS OneTouch OneTouch No OneTouch Bert summer Verio test Verio test Verio test Family strips strips strips Practic e Ozempic Ozempic No .5mg Q1W Ozempic Villag e 0.25 mg or 0.25 mg or 0.25 mg or Family 0.5 mg (2 0.5 mg (2 0.5 mg (2 Practic mg/1.5 mL) mg/1.5 mL) mg/1.5 mL) e subcutaneou subcutaneou subcutaneo s pen s pen us pen injector injector injector Inject 0.5 Inject 0.5 Inject 0.5 mg every mg every mg every week by week by week by subcutaneou subcutaneou subcutaneo s route for s route for us route 30 days. 30 days. for 30 days. Tradjenta 5 Tradjenta 5 No Tradjenta Village mg tablet mg tablet 5 mg Famil y TAKE 1 TAKE 1 tablet Practic TABLET BY TABLET BY TAKE 1 e MOUTH ONCE MOUTH ONCE TABLET BY DAILY IN DAILY IN MOUTH ONCE THE MORNING THE MORNING DAILY IN THE MORNING Vitamin D2 Vitamin D2 No Vitamin D2 [facility] Family Practic e Vitamin D3 Vitamin D3 No Vitamin D3 [facility] 1000 IU 1000 IU 1000 IU Family DAILY DAILY DAILY Practic e Vital Signs Vital Name Observation Time Observation Value Comments Source BP Diastolic 2020-07-10 00:00:00 86 mm[Hg] [facility] Height 2020-07-10 00:00:00 62 [in_i] [facility] BMI (Body Mass 2020-07-10 00:00:00 33.5 kg/m2 [facility] Family Index) Practice BP Systolic 2020-07-10 00:00:00 137 mm[Hg] [facility] Body Weight 2020-07-10 00:00:00 183 [lb_av] [facility] BP Diastolic 2020-02-07 00:00:00 78 mm[Hg] [facility] Height 2020-02-07 00:00:00 62 [in_i] [facility] BMI (Body Mass 2020-02-07 00:00:00 33 kg/m2 [facility] e Family Index) Practice BP Systolic 2020-02-07 00:00:00 122 mm[Hg] [facility] Body Weight 2020-02-07 00:00:00 180.2 [lb_av] [facility] BP Diastolic 2019-12-24 00:00:00 78 mm[Hg] [facility] Height 2019-12-24 00:00:00 62 [in_i] [facility] BMI (Body Mass 2019-12-24 00:00:00 31.5 kg/m2 [facility] Family Index) Practice BP Systolic 2019-12-24 00:00:00 110 mm[Hg] [facility] Body Weight 2019-12-24 00:00:00 172 [lb_av] [facility] Procedures This patient has no known procedures. Plan of Care Planned Activity Planned Date Details Comments Source Diagnostic Test 2020-07-10 glucose, fingerstick, Bert Gould Pending 00:00:00 blood [code = Practice glucose, fingerstick, blood] Diagnostic Test 2020-07-10 hemoglobin A1C, Basil stewart Pending 00:00:00 fingerstick [code = Practice hemoglobin A1C, fingerstick] Encounters Start End Encounter Admission Attending Care Care Encounter Source Date/Time Date/Time Type Type Clinicians Facility Department ID 2020-08-25 2020-08-25 Office [facility] [id number] 52 14:02:06 14:32:42 Visit Danya [place] [id number] Vian [id number] Professio [id number] [facility] Building 2020-07-10 2020-07-10 Samm [place] - [id number] [place] ill[place] 00:00:00 [facility]:00:00 [facility] Practi c : [id number] [facility], [address], [place] [address] , Ph. 2020-02-07 2020-02-07 Samm [place] - [id number] V illage 00:00:00 00:00:00 Jie [facility] - Pracdonnie sanz MD: [id number] [facility], [address], [place] [address] , Ph. 2019-12-24 2019-12-24 Samm [place] - [id number] V illage 00:00:00 00:00:00 [facility] Family AlexanderNegar - Eleazar sanz MD: [id number] [address]Dani e [facility], [address], [place] [address] , Ph. Results Test Description Test Time [...] N Completed by Nursing: NONT PRO-BRAIN NATRIURETIC [id number] 18:36:00 Test Item Value Reference Range Interpretation Comments NT PRO-BRAIN NATRIURETIC PEPTI 368 PG/ML 0-100 H (test code = PROBNP) Completed by Nursing: [id number] 18:36:00 Test Item Value Reference Range Interpretation [...] Completed by Nursing: NODRUGS OF ABUSE SCREEN [id number] 18:36:00 Test Item Value Reference Range Interpretation [...] NEGATIVE SCcutoff <300 NG/ML [place]) BASIC METABOLIC [id number] 18:32:00 Test Item Value Reference Range Interpretation [...] N Completed by Nursing: NONT PRO-BRAIN NATRIURETIC [id number] 18:32:00 Test Item Value Reference Range Interpretation Comments NT PRO-BRAIN NATRIURETIC PEPTI (test PG/ML 0-100 code = PROBNP) Completed by Nursing: [id number] 18:32:00 Test Item Value Reference Range Interpretation Comments TROPONIN-I (test code = TROPI) NG/ML 0.000-0.045 Completed by Nursing: NOCBC W/AUTO [id number] 18:20:00 Test Item Value Reference Range Interpretation [...] CRITERIA = MDIFF) - CT HEAD/BRAIN W/O [id number] 17:04:00 Name: MORELIA ROMEO [facility] : 1970 Age/S: 49 / F [id number] Unit #: [id number] Loc: [place] [address] Phys: Domenica Quinn MD Acct: [id number] Dis Date: Status: PRE ER PHONE #: [phone] Exam Date: 08/23/2019 1630 FAX #: Reason: syncope EXAMS: CPT: [id number] CT HEAD/BRAIN W/O CONT [id number] INDICATIONS: syncope TECHNIQUE: Contiguous axial CT sections were obtained from the skull base to the vertex without intravenous contrast administration. CT DLP dose: 804 mGy centimeters. Iterative dose reduction technique utilized. Location: [id number]: None available. FINDINGS: The brain parenchyma is [...] Lora RT(R)(CT) CTDI: DLP: Trnscb Date/Time: 08/23/2019 (170) [id number] Orig Print D/T: S: 08/23/2019 (3010) PAGE 1 Signed Report
[2020-08-25 17:47] LABS: Absolute Lymphocytes (CBC) 1.5 K/uL (0.7-4.9); Basophils % 0.5 % (0-1.3); Hematocrit 38.1 % (36.0-45.0); MPV 8.5 fL (7.6-11.3); RBC Red Blood Cell Count 4.47 M/uL (3.86-4.86)
[2020-08-25 18:04] LABS: Protime INR 0.9
[2020-08-25 18:08] LABS: ALT/SGPT 18 U/L (12-78); AST/SGOT 12 U/L (15-37); Albumin 3.1 g/dL (3.4-5.0); Alkaline Phosphatase 123 U/L (45-117); BUN Blood Urea Nitrogen 31 mg/dL (7-18); Bicarbonate 32 mmol/L (21-32); Bilirubin Direct < 0.1 mg/dL (0-0.2); Bilirubin Total 0.2 mg/dL (0.2-1.0); Glucose Level 97 mg/dL (74-106); Magnesium 2.6 mg/dL (1.8-2.4); NT PRO-BNP 7799 pg/mL (<125); Potassium 3.2 mmol/L (3.5-5.1); Protein, Total 7.8 g/dL (6.4-8.2); Sodium Level 140 mmol/L (136-145); Troponin (Emerg Dept Use Only) < 0.02 ng/mL (0.0-0.045)
--- NOTE | 2020-08-25 18:44 | RAD REPORT ---
EXAM DESCRIPTION: RAD - Chest Single View - 08/25/2020 6:17 pm CLINICAL HISTORY: hypotension Chest pain. COMPARISON: Chest Single View dated 08/02/2017; Chest Pa And Lat (2 Views) dated 05/16/2017 FINDINGS: Portable technique limits examination quality. The lungs are grossly clear. The heart is normal in size. No displaced fractures. IMPRESSION: No acute intrathoracic process suspected.
[2020-08-25] MEDS ORDERED: NA CHLORIDE 0.9% 500 ML ONE (19:03)
--- NOTE | 2020-08-25 20:12 | ER ---
Nurse's Notes [facility] Name: Alyson Mayfield Age: 50 yrs Sex: Female : 1970 Arrival Date: 08/25/2020 Time: 15:53 Bed 16 Private MD: Diagnosis: Hypotension, unspecified Presentation: 08/25 16:12 Chief complaint: Patient states: Cold, cough, sneezing for 2 weeks. Sugar has been ll1 elevated recently, no appetite. Dizziness for 2 days. 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 Went to [place], wait was too long so she came here. Coronavirus screen: Client denies travel out of the [place] in the last 14 days. congestion, cough unrelated to allergies, difficulty breathing, fatigue, headache, nausea, runny nose, shaking with chills, shortness of breath, sore throat, vomiting. Client presents with at least one sign or symptom that may indicate coronavirus-19. Standard/surgical mask placed on the client. Ebola Screen: Patient denies travel to an Ebola-affected area in the 21 days before illness onset. Initial Sepsis Screen: Does the patient meet any 2 criteria? Systolic BP < 90 mmHg. HR > 90 bpm. Does the patient have a suspected source of infection? No. Patient's initial sepsis screen is negative. Risk Assessment: Do you want to hurt yourself or someone else? Patient reports no desire to harm self or others. Onset of symptoms was August 11, 2020. 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 - Social history:: Smoking status: Patient denies any tobacco usage or history of. Screenin:00 Abuse screen: Denies threats or abuse. Denies injuries from another. Nutritional jl7 screening: No deficits noted. Tuberculosis screening: No symptoms or risk factors identified. Fall Risk IV access (20 points). Total Lamar Fall Scale indicates No Risk (0-24 pts). Assessment: 17:00 General: Appears in no apparent distress. uncomfortable, Behavior is calm, cooperative, jl7 appropriate for age. Pain: Denies pain. Neuro: Level of Consciousness is awake, alert, obeys commands, Oriented to person, place, time, situation. Cardiovascular: Reports lightheadedness, shortness of breath, Patient's skin is warm and dry. Rhythm is regular. Respiratory: Airway is patent Respiratory effort is even, unlabored, Respiratory pattern is regular, symmetrical. Derm: Skin is pink, warm \T\ dry. 19:30 General: Appears in no apparent distress. comfortable, Behavior is calm, cooperative, rr5 appropriate for age. Neuro: Level of Consciousness is awake, alert, obeys commands, Oriented to person, place, time. Cardiovascular: Capillary refill < 3 seconds Patient's skin is warm and dry. Respiratory: Airway is patent Respiratory effort is even, unlabored, Respiratory pattern is regular, symmetrical. GI: No signs and/or symptoms were reported involving the gastrointestinal system. : No signs and/or symptoms were reported regarding the genitourinary system. EENT: No signs and/or symptoms were reported regarding the EENT system. Derm: Skin temperature is warm. Musculoskeletal: Capillary refill < 3 seconds. 20:28 Reassessment: Patient appears in no apparent distress at this time. Patient is alert, rr5 oriented x 3, equal unlabored respirations, skin warm/dry/pink. discharge instruction given and explained without complaints made Patient states feeling better. Patient states symptoms have improved. Vital Signs: 16:12 BP 77 / 56; Pulse 93; Resp 16; Temp 97.3; Pulse Ox 100% ; Weight 73.48 kg; Height 5 ft. ll1 2 in. (157.48 cm); Pain 0/10; 17:00 BP 132 / 73; Pulse 83; Resp 15; Pulse Ox 97% ; jl7 17:22 BP 139 / 69 Supine; Pulse 81; jl7 17:23 BP 114 / 69 Sitting; Pulse 85; jl7 17:25 BP 90 / 59 Standing; Pulse 86; jl7 18:08 BP 149 / 74; Pulse 84; Resp 15; Pulse Ox 95% ; jl7 19:50 BP 176 / 86 Supine; Pulse 87; rr5 19:55 BP 161 / 82 Sitting; Pulse 88; rr5 20:00 BP 141 / 76 Standing; Pulse 92; rr5 20:32 BP 145 / 89; Pulse 90; Resp 17; Pulse Ox 98% ; rr5 16:12 Body Mass Index 29.63 (73.48 kg, 157.48 cm) ll1 ED Course: 15:53 Patient arrived in ED. as 16:14 Triage completed. ll1 16:15 Arm band placed on Patient placed in an exam room, on a stretcher. ll1 16:36 Ace Sarmietno RN is Primary Nurse. jl7 16:46 Avinash Jones NP is PHCP. pm1 16:46 Ulysses Bhatt MD is Attending Physician. pm1 17:00 Patient has correct armband on for positive identification. Placed in gown. Bed in low jl7 position. Call light in reach. Side rails up X 1. manager customer service on. Pulse ox on. NIBP on. 17:35 Initial lab(s) drawn, by me, sent to lab. Inserted saline lock: 20 gauge in left jl7 antecubital area, using aseptic technique. Blood collected. 18:07 CBC with Diff Sent. jl7 18:17 XRAY Chest (1 view) In Process Unspecified. EDMS 20:29 No provider procedures requiring assistance completed. IV discontinued, intact, rr5 bleeding controlled, No redness/swelling at site. Pressure dressing applied. Administered Medications: 18:30 Drug: NS 0.9% 500 ml Route: IV; Rate: bolus; Site: left antecubital; jl7 19:20 Follow up: Response: No adverse reaction; IV Status: Completed infusion; IV Intake: rr5 500ml Intake: 19:20 IV: 500ml; Total: 500ml. rr5 Outcome: 20:12 Discharge ordered by MD. pm1 20:29 Discharged to home ambulatory. rr5 20:29 Condition: stable 20:29 Discharge instructions given to patient, Instructed on discharge instructions, follow up and referral plans. medication usage, Demonstrated understanding of instructions, follow-up care, medications, Prescriptions given X 1. 20:32 Patient left the ED. rr5 Signatures: Dispatcher [employer] EDMS Leslee Aguillon as Avinash Jones, CONTINUOUS MINER OPERATOR HELPER CONTINUOUS MINER OPERATOR HELPER pm1 Ace Sarmiento RN RN jl7 Cullen Evans, RN RN rr5 Naveed Drake RN RN ll1 Corrections: (The following items were deleted from the chart) 17:48 17:00 Inserted saline lock: 20 gauge in left antecubital area, using aseptic technique. jl7 Blood collected. jl7 17:48 17:00 Initial lab(s) drawn, by me, sent to lab. jlSanket jl7
--- NOTE | 2020-08-25 20:12 | EDPHYS ---
Physician Documentation [facility] Name: Alyson Mayfield Age: 50 yrs Sex: Female : 1970 Arrival Date: 08/25/2020 Time: 15:53 Bed 16 Private MD: ED Physician Ulysses Bhatt HPI: 08/25 17:36 This 50 yrs old Female presents to ER via Ambulatory with complaints of Blood pm1 Pressure Problem. 17:36 Onset: The symptoms/episode began/occurred today. Associated signs and symptoms: pm1 Pertinent positives: congestion, cough, and sneezing for the past 2 weeks, Pertinent negatives: diarrhea, sore throat, vomiting. 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 Patient with cough, cold, sneezing and congestion for the past two weeks. Today she felt generalized weakness. Went to her rotary veneer machine operator and was found to be hypotensive. She was wheel chaired from her rotary veneer machine operator office to the ER department in [facility]. She was advised by the ER nursing staff there to go to [place] [facility] because the wait is too long. 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 - Social history:: Smoking status: Patient denies any tobacco usage or history of. ROS: 17:36 Constitutional: Negative for fever, chills, and weight loss, Eyes: Negative for injury, pm1 pain, redness, and discharge, Neck: Negative for injury, pain, and swelling. 17:36 Cardiovascular: Negative for chest pain, palpitations, and edema. 17:36 Abdomen/GI: Negative for abdominal pain, nausea, vomiting, diarrhea, and constipation, Back: Negative for injury and pain. 17:36 MS/Extremity: Negative for injury and deformity, Skin: Negative for injury, rash, and discoloration. 17:36 ENT: Positive for rhinorrhea, Negative for ear pain, sore throat. 17:36 Respiratory: Positive for cough, Negative for shortness of breath. 17:36 Neuro: Positive for generalized weakness, Negative for headache, numbness, tingling. Exam: 17:36 Constitutional: This is a well developed, well nourished patient who is awake, alert, pm1 and in no acute distress. Head/Face: Normocephalic, atraumatic. 17:36 Back: No spinal tenderness. No costovertebral tenderness. Full range of motion. 17:36 Skin: Warm, dry with normal turgor. Normal color with no rashes, no lesions, and no evidence of cellulitis. MS/ Extremity: Pulses equal, no cyanosis. Neurovascular intact. Full, normal range of motion. 17:36 Eyes: Exam is negative for acute changes, Extraocular movements: no acute changes, Conjunctiva: no acute changes, no injection, Sclera: no acute changes, icterus, is not appreciated. 17:36 ENT: Mouth: Lips: normal, Oral mucosa: normal, pink and intact, moist. 17:36 Cardiovascular: Rate: normal, Rhythm: regular, Pulses: no pulse deficits are appreciated, Edema: is not appreciated. 17:36 Respiratory: Exam negative for acute changes, respiratory distress, shortness of breath, Breath sounds: are clear throughout. 17:36 Abdomen/GI: Inspection: abdomen appears normal, Palpation: abdomen is soft and non-tender, in all quadrants. 17:36 Neuro: Exam negative for acute changes, Orientation: is normal, Mentation: is normal, Motor: is normal, moves all fours. Vital Signs: 16:12 BP 77 / 56; Pulse 93; Resp 16; Temp 97.3; Pulse Ox 100% ; Weight 73.48 kg; Height 5 ft. ll1 2 in. (157.48 cm); Pain 0/10; 17:00 BP 132 / 73; Pulse 83; Resp 15; Pulse Ox 97% ; jl7 17:22 BP 139 / 69 Supine; Pulse 81; jl7 17:23 BP 114 / 69 Sitting; Pulse 85; jl7 17:25 BP 90 / 59 Standing; Pulse 86; jl7 18:08 BP 149 / 74; Pulse 84; Resp 15; Pulse Ox 95% ; jl7 19:50 BP 176 / 86 Supine; Pulse 87; rr5 19:55 BP 161 / 82 Sitting; Pulse 88; rr5 20:00 BP 141 / 76 Standing; Pulse 92; rr5 20:32 BP 145 / 89; Pulse 90; Resp 17; Pulse Ox 98% ; rr5 16:12 Body Mass Index 29.63 (73.48 kg, 157.48 cm) ll1 MDM: 17:09 Patient medically screened. pm1 20:05 ED course: Patient with orthostatic hypotension likely due to diuresis and decreased PO pm1 fluid intake. Patient was instructed by her rotary veneer machine operator to hold diuretic for two days. Patient's blood pressure improved with hydration in the ER. Patient without any symptoms of hypotension with standing and ambulation . 20:11 Data reviewed: vital signs. Data interpreted: Pulse oximetry: on room air is 95 %. pm1 Interpretation: normal. Counseling: I had a detailed discussion with the patient and/or guardian regarding: the historical points, exam findings, and any diagnostic results supporting the discharge/admit diagnosis, lab results, radiology results, the need for outpatient follow up, to return to the emergency department if symptoms worsen or persist or if there are any questions or concerns that arise at home. 08/25 17:09 Order name: Basic Metabolic Panel; Complete Time: 18:09 pm1 08/25 17:09 Order name: CBC with Diff pm1 08/25 17:09 Order name: LFT's; Complete Time: 18:09 pm1 08/25 17:09 Order name: Magnesium; Complete Time: 18:09 pm1 08/25 17:09 Order name: NT PRO-BNP; Complete Time: 18:09 pm1 08/25 17:09 Order name: PT-INR; Complete Time: 18:44 pm1 08/25 17:09 Order name: Troponin (emerg Dept Use Only); Complete Time: 18:09 pm1 08/25 17:09 Order name: XRAY Chest (1 view); Complete Time: 18:45 pm1 08/25 17:09 Order name: EKG; Complete Time: 17:10 pm1 08/25 17:32 Order name: Flu; Complete Time: 20:11 pm1 08/25 17:49 Order name: CBC with Automated Diff; Complete Time: 17:50 EDMS 08/25 19:42 Order name: SARS-COV-2 RT PCR; Complete Time: 20:05 EDMS 08/25 17:09 Order name: Cardiac monitoring; Complete Time: 18:07 pm1 08/25 17:09 Order name: EKG - Nurse/Tech; Complete Time: 18:07 pm1 08/25 17:09 Order name: IV Saline Lock; Complete Time: 17:44 pm1 08/25 17:09 Order name: Labs collected and sent; Complete Time: 17:44 pm1 08/25 17:09 Order name: O2 Per Protocol; Complete Time: 17:44 pm1 08/25 17:09 Order name: O2 Sat Monitoring; Complete Time: 17:44 pm1 08/25 17:09 Order name: Orthostatic Blood Pressure; Complete Time: 17:44 pm1 08/25 18:58 Order name: Labs - recollect needed; Complete Time: 19:11 mt Administered Medications: 18:30 Drug: NS 0.9% 500 ml Route: IV; Rate: bolus; Site: left antecubital; jl7 19:20 Follow up: Response: No adverse reaction; IV Status: Completed infusion; IV Intake: rr5 500ml Disposition: 08/25/20 20:12 Discharged to Home. Impression: Hypotension, unspecified. - Condition is Stable. - Discharge Instructions: Hypotension, Orthostatic Hypotension, Upper Respiratory Infection, Adult. - Prescriptions for Guaifenesin AC 10- 100 mg/5 mL Oral Liquid - take 10 milliliter by ORAL route every 4 hours As needed; 240 milliliter. - Medication Reconciliation Form, Thank You Letter, Antibiotic Education, Prescription Opioid Use form. - Follow up: Emergency Department; When: As needed; Reason: Worsening of condition. Follow up: Private Physician; When: 2 - 3 days; Reason: Recheck today's complaints, Continuance of care, Re-evaluation by your physician. - Problem is new. - Symptoms have improved. Signatures: Dispatcher [employer] [facility] Avinash Jones, SOLID TIRE TUBER MACHINE OPERATOR SOLID TIRE TUBER MACHINE OPERATOR pm1 Ace Sarmiento RN RN jl7 Jyoti Rodney mt, Raymond RN RN rr5 Naveed Drake, ROB RN ll1 Corrections: (The following items were deleted from the chart) 18:44 17:33 CORONAVIRUS+ ordered. [facility] 20:32 20:12 08/25/2020 20:12 Discharged to Home. Impression: Hypotension, unspecified. rr5 Condition is Stable. Forms are Medication Reconciliation Form, Thank You Letter, Antibiotic Education, Prescription Opioid Use. Follow up: Emergency Department; When: As needed; Reason: Worsening of condition. Follow up: Private Physician; When: 2 - 3 days; Reason: Recheck today's complaints, Continuance of care, Re-evaluation by your physician. Problem is new. Symptoms have improved. pm1
[2020-08-25 21:09] VITALS: TEMP 97.3
[2020-08-25 21:20] VITALS: BP 145/89; O2SAT 98
--- NOTE | 2020-08-26 07:50 | EKG ---
Test Date: 2020-08-25 Test Time: 18:08:10 Lap Machine Operator: CHANELLE MEASUREMENT RESULTS: Intervals: Rate: 83 IA: 136 QRSD: 74 QT: 364 QTc: 427 Vina: P: 51 IA: 136 QRS: 9 T: 126 INTERPRETIVE STATEMENTS: Normal sinus rhythm Inferior infarct, age undetermined Cannot rule out Anterior infarct, age undetermined ST & T wave abnormality, consider lateral ischemia Abnormal ECG Compared to ECG 12/28/2019 08:13:12 Myocardial infarct finding now present ST (T wave) deviation now present Possible ischemia now present Electronically Signed On 08-26-20 07:48:59 CDT by Tigre Billingsley
== END 2020-08-25 20:32 | disposition home or self-care (01) ==
LOC: ER 15:50
DX: I95.9 Hypotension, unspecified (principal); Z20.822 Contact with and (suspected) exposure to COVID-19; I11.0 Hypertensive heart disease with heart failure; I50.9 Heart failure, unspecified; E11.9 Type 2 diabetes mellitus without complications
CPT/HCPCS: 93005; 85025; 80048; 36415; 83735; 85610; 80076; 84484; 83880; 87804 ×2; 71045; U0003; J7040; 96360; 99284

== ENCOUNTER 2020-10-03 19:40 | Emergency (ER) | payer BC ==
--- OUTSIDE RECORDS SUMMARY | 2020-10-03 19:44 | XMS REPORT | Continuity of Care Document ---
:1970 Author Organization [facility] t Address [address] [place] [address] Care Team Providers Name Role Phone Kermit [...] Irritable Problem Active Bert summer bowel Bowel 4-22 Family syndrome Syndrome 00:00: Practi c 00 e Low blood Low Blood Problem Active 2019- Bert summer pressure Pressure 6-18 Family 00:00: Practic 00 e Dizziness Dizziness Problem Active 2019-0 Bert summer and and 618 Family giddiness Giddiness 00:00: Prac tic 00 e Proteinuri Proteinuri Problem Active 2019-0 V illage a a -21 Family 00:00: Practic 00 e Hypertensi Hypertensi [...] of Problem Active V ill[facility] urine Urine 8 Family substance Substance 00:00: Prac tic level Level 00 e Hypothyroi Hypothyroi Problem Active V ill[facility] dism dism 09-12 Family 00:00: Practic 00 e Retinopath Retinopath Problem Active V ill[facility] y due to y Due to 09-12 Family type 2 Type 2 00:00: Practic diabetes Diabetes 00 e mellitus Mellitus Family Family Problem Active [facility] history of History of 09-12 Irma reese diabetes Diabetes 00:00: Practi c mellitus Mellitus 00 e Screening Screening Problem Active Bert summer for for 09-12 Family disorder Disorder 00:00: Practi c 00 e Tinea Tinea Problem Active [facility] pedis Pedis 09-12 Family 00:00: Practic 00 e Allergies, Adverse Reactions, Alerts Allergy Allergy Status Severity Reaction(s) Onset Inactive Treating Comm ents Source Name Type Date Date Clinician No Known DA Active [facility] All[facility]ie 08-22 Marlonlan s [facility] Metformi [...] Tea 14 Tea 14 Fam calderon Day Gowanda Day Gowanda Day Gowanda Practic e FreeStyle FreeStyle No FreeStyle [place] Tea 14 Tea 14 Tea 14 Fam calderon Day Sensor Day Sensor Day Sensor Practic e FreeStyle FreeStyle No FreeStyle [facility] Tea 14 Tea 14 Tea 14 [...] two times daily times daily times daily INDUSTRIAL CHEMICALS SUPERVISOR Thyroid INDUSTRIAL CHEMICALS SUPERVISOR Thyroid No INDUSTRIAL CHEMICALS SUPERVISOR Thyroid [place] 30 mg 30 mg 30 [...] Vitamin D2 Vitamin D2 No Vitamin D2 [facility] Family Practic e Vitamin D3 Vitamin D3 No Vitamin D3 [facility] 1000 IU 1000 IU 1000 IU Family DAILY DAILY DAILY Practic e Vital Signs Vital Name Observation Time Observation Value Comments Source BP Diastolic 2020-07-10 00:00:00 86 mm[Hg] [facility] Height 2020-07-10 00:00:00 62 [in_i] [facility] BMI (Body Mass 2020-07-10 00:00:00 33.5 kg/m2 [facility] Family Index) Practice BP Systolic 2020-07-10 00:00:00 137 mm[Hg] [facility] Body Weight 2020-07-10 00:00:00 183 [lb_av] [facility] BP Diastolic 2020-02-07 00:00:00 78 mm[Hg] [facility] Height 2020-02-07 00:00:00 62 [in_i] [facility] BMI (Body Mass 2020-02-07 00:00:00 33 kg/m2 [facility] Family Index) Practice BP Systolic 2020-02-07 00:00:00 122 mm[Hg] [facility] Body Weight 2020-02-07 00:00:00 180.2 [lb_av] [facility] BP Diastolic 2019-12-24 00:00:00 78 mm[Hg] [facility] Height 2019-12-24 00:00:00 62 [in_i] [facility] BMI (Body Mass 2019-12-24 00:00:00 31.5 kg/m2 [facility] Family Index) Practice BP Systolic 2019-12-24 00:00:00 110 mm[Hg] [facility] Body Weight 2019-12-24 00:00:00 172 [lb_av] [facility] Procedures This patient has no known procedures. [...] Date/Time Type Type Clinicians Facility Department ID 2020-09-23 2020-09-23 Office Kermit [facility] [id number] 11:10:57 11:46:21 Visit Benson Reynolds [id number] [place] [id number] Profleaio [id number] [facility] Building 2020-07-10 2020-07-10 Samm [place] - [id number] V illage 00:00:00 00:00:00 Jie [facility] - Pracdonnie sanz MD: [id number] Tomy nix Shadow [facility], [address], [place] [address] , Ph. 2020-02-07 2020-02-07 Samm [place] - [id number] V illage 00:00:00 00:00:00 Jie [facility] Negar Alexander - Pracdonnie sanz MD: [id number] Laura nix Shadow [facility], [address], [place] [address] , Ph. 2019-12-24 2019-12-24 Samm [place] - [id number] V illage 00:00:00 00:00:00 Jie [facility] Family Alexander, Medical - Pracdonnie sanz MD: [id number] VM_[email or web address] e Shadow [facility], [address], [place] [address] , Ph. Results Test Description Test Time [...] N Completed by Nursing: NONT PRO-BRAIN NATRIURETIC [id number] 18:36:00 Test Item Value Reference Range Interpretation Comments NT PRO-BRAIN NATRIURETIC PEPTI 368 PG/ML 0-100 H (test code = PROBNP) Completed by Nursing: [id number] 18:36:00 Test Item Value Reference Range Interpretation [...] Completed by Nursing: NODRUGS OF ABUSE SCREEN [id number] 18:36:00 Test Item Value Reference Range Interpretation [...] NEGATIVE SCcutoff <300 NG/ML [place]) BASIC METABOLIC [id number] 18:32:00 Test Item Value Reference Range Interpretation [...] N Completed by Nursing: NONT PRO-BRAIN NATRIURETIC [id number] 18:32:00 Test Item Value Reference Range Interpretation Comments NT PRO-BRAIN NATRIURETIC PEPTI (test PG/ML 0-100 code = PROBNP) Completed by Nursing: [id number] 18:32:00 Test Item Value Reference Range Interpretation Comments TROPONIN-I (test code = TROPI) NG/ML 0.000-0.045 Completed by Nursing: NOCBC W/AUTO [id number] 18:20:00 Test Item Value Reference Range Interpretation [...] CRITERIA = MDIFF) - CT HEAD/BRAIN W/O [id number] 17:04:00 Name: MORELIA ROMEO [facility] : 1970 Age/S: 49 / F [id number] [address] Unit #: [id number] Loc: [place] [address] Phys: Domencia Quinn MD Acct: [id number] Dis Date: Status: PRE ER PHONE #: [phone] Exam Date: 08/23/2019 1638 FAX #: Reason: syncope EXAMS: CPT: [id number] CT HEAD/BRAIN W/O CONT 65924 INDICATIONS: syncope TECHNIQUE: Contiguous axial CT sections were obtained from the skull base to the vertex without intravenous contrast administration. CT DLP dose: 804 mGy centimeters. Iterative dose reduction technique utilized. Location: [id number]: None available. FINDINGS: The brain parenchyma is [...] RT(R)(CT) CTDI: DLP: Trnscb Date/Time: 08/23/2019 (1704) [email or web address] Orig Print D/T: S: 08/23/2019 (1448) PAGE 1 Signed Report
[2020-10-03] MEDS ORDERED: ACETAMINOPHEN 325 MG TABLET ONE ×2 (23:06→23:10)
[2020-10-03] MEDS ORDERED: IBUPROFEN 400 MG TAB ONE ×2 (23:07→23:10)
[2020-10-03] MEDS ORDERED: NA CHLORIDE 0.9% 1,000 ML ONE (23:07)
[2020-10-03 23:08] LABS: Absolute Lymphocytes (CBC) 1.9 K/uL (0.7-4.9); Basophils % 0.7 % (0-1.3); Hematocrit 35.2 % (36.0-45.0); Lymphocytes % 38.2 % (15.3-44.8); RBC Red Blood Cell Count 4.13 M/uL (3.86-4.86)
[2020-10-03 23:24] LABS: Albumin 2.7 g/dL (3.4-5.0); Bilirubin Direct 0.1 mg/dL (0-0.2); Bilirubin Total 0.5 mg/dL (0.2-1.0); Protein, Total 6.6 g/dL (6.4-8.2)
--- NOTE | 2020-10-04 00:47 | EDPHYS ---
Physician Documentation [facility] Name: Alyson Mayfield Age: 50 yrs Sex: Female : 1970 Arrival Date: 10/03/2020 Time: 19:44 Bed 7 Private MD: ED Physician Alo Timmons HPI: 10/03 22:44 This 50 yrs old Female presents to ER via Ambulatory with complaints of Nausea.pkl 22:44 The patient presents with abdominal pain in the upper abdomen. Onset: The pkl symptoms/episode began/occurred 10 day(s) ago. The symptoms do not radiate. Associated signs and symptoms: Pertinent positives: headache, nausea. 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 - Social history:: Smoking status: Patient denies any tobacco usage or history of. ROS: 22:44 Eyes: Negative for injury, pain, redness, and discharge, ENT: Negative for injury, pkl pain, and discharge, Neck: Negative for injury, pain, and swelling, Cardiovascular: Negative for chest pain, palpitations, and edema, Respiratory: Negative for shortness of breath, cough, wheezing, and pleuritic chest pain. 22:44 Abdomen/GI: Positive for abdominal pain, nausea, of the right upper quadrant and left upper quadrant. 22:44 Back: Negative for acute changes. 22:44 : Negative for urinary symptoms. 22:44 MS/extremity: Negative for acute changes. 22:44 Skin: Negative for rash. 22:44 Neuro: Negative for altered mental status. Exam: 22:44 Head/Face: Normocephalic, atraumatic. Eyes: Pupils equal round and reactive to light, pkl extra-ocular motions intact. Lids and lashes normal. Conjunctiva and sclera are non-icteric and not injected. Cornea within normal limits. Periorbital areas with no swelling, redness, or edema. ENT: Nares patent. No nasal discharge, no septal abnormalities noted. Tympanic membranes are normal and external auditory canals are clear. Oropharynx with no redness, swelling, or masses, exudates, or evidence of obstruction, uvula midline. Mucous membranes moist. Neck: Trachea midline, no thyromegaly or masses palpated, and no cervical lymphadenopathy. Supple, full range of motion without nuchal rigidity, or vertebral point tenderness. No Meningismus. Chest/axilla: Normal chest wall appearance and motion. Nontender with no deformity. No lesions are appreciated. Cardiovascular: Regular rate and rhythm with a normal S1 and S2. No gallops, murmurs, or rubs. Normal PMI, no JVD. No pulse deficits. Respiratory: Lungs have equal breath sounds bilaterally, clear to auscultation and percussion. No rales, rhonchi or wheezes noted. No increased work of breathing, no retractions or nasal flaring. 22:44 Abdomen/GI: Bowel sounds: normal, Palpation: soft, mild abdominal tenderness, in the right upper quadrant and left upper quadrant. 22:44 Back: Exam negative for acute changes. 22:44 : Exam negative for acute changes. 22:44 Musculoskeletal/extremity: Exam is negative for acute changes. 22:44 Skin: Exam negative for rash. 22:44 Neuro: Orientation: is normal, Mentation: is normal, Cranial nerves: grossly normal, Motor: is normal. Vital Signs: 21:34 BP 156 / 96; Pulse 83; Resp 16; Temp 98.2; Pulse Ox 99% ; Weight 68.95 kg; Height 5 ft. vg1 2 in. (157.48 cm); Pain 0/10; 22:59 BP 196 / 106; Pulse 78; Resp 18; Pulse Ox 100% on R/A; ea 10/04 00:48 BP 156 / 58; Pulse 92; Resp 18; Pulse Ox 100% on R/A; ea 10/03 21:34 Body Mass Index 27.80 (68.95 kg, 157.48 cm) vg1 MDM: 10/03 22:28 Patient medically screened. pkl 10/04 00:43 Data reviewed: vital signs, nurses notes, lab test result(s), radiologic studies, CT pkl scan. ED course: Patient feeling better. Discussed lab and CT Scan result with patient. 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 Patient understood instructions. 10/03 22:40 Order name: Basic Metabolic Panel; Complete Time: 23:38 pkl 10/03 22:40 Order name: CBC with Diff; Complete Time: 23:38 pkl 10/03 22:40 Order name: Hepatic Function; Complete Time: 23:38 pkl 10/03 22:40 Order name: Lipase; Complete Time: 23:38 pkl 10/03 22:42 Order name: CT Abd/Pelvis - IV Contrast Only pkl 10/04 01:00 Order name: Urine Dipstick-Ancillary; Complete Time: 01:18 EDMS 10/03 22:40 Order name: IV Saline Lock; Complete Time: 22:58 pkl 10/03 22:40 Order name: Labs collected and sent; Complete Time: 22:58 pkl Administered Medications: 10/03 22:49 Drug: Tylenol 650 mg Route: PO; ea 22:49 Drug: Motrin (ibuprofen) 400 mg Route: PO; ea 22:58 Drug: NS 0.9% 1000 ml Route: IV; Rate: 1000 ml; Site: right antecubital; ea 23:08 Drug: Zofran (Ondansetron) 4 mg Route: IVP; Site: right antecubital; ea 10/04 00:42 Drug: K-Lyte (potassium) Effervescent Tablet 50 mEq Route: PO; ea Disposition Summary: 10/04/20 00:46 Discharge Ordered Location: Home pkl Problem: new pkl Symptoms: have improved pkl Condition: Stable pkl Diagnosis - Abdominal pain. GERD pkl Followup: pkl - With: Private Physician - When: 2 - 3 days - Reason: Re-evaluation by your physician Discharge Instructions: - Discharge Summary Sheet pkl Forms: - Medication Reconciliation Form pkl - Thank You Letter pkl - Antibiotic Education pkl - Prescription Opioid Use pkl Prescriptions: - Protonix 40 mg Oral Tablet - take 1 tablet by ORAL route once daily; 30 tablet; Refills: 0, Product pkl Selection Permitted - Zofran 4 mg Oral Tablet - take 1 tablet by ORAL route every 12 hours As needed; 12 tablet; Refills: 0, pkl Product Selection Permitted Signatures: Dispatcher [facility] Alo Julian MD MD pkl Gilda Ku RN RN Harriet Villegas RN RN vg1
--- NOTE | 2020-10-04 00:47 | ER ---
Nurse's Notes [facility] Name: Alyson Mayfield Age: 50 yrs Sex: Female : 1970 Arrival Date: 10/03/2020 Time: 19:44 Bed 7 Private MD: Diagnosis: Abdominal pain. GERD Presentation: 10/03 21:34 Chief complaint: Patient states: For about a week pt has been NVD. States has not been vg1 able to eat and is having ABD pain 'above the belly button area'. Denies pain at this moment. Coronavirus screen: Client denies travel out of the [place] in the last 14 days. Client presents with at least one sign or symptom that may indicate coronavirus-19. Standard/surgical mask placed on the client. Ebola Screen: Patient negative for fever greater than or equal to 101.5 degrees Fahrenheit, and additional compatible Ebola Virus Disease symptoms. Initial Sepsis Screen: Does the patient meet any 2 criteria? No. Patient's initial sepsis screen is negative. Does the patient have a suspected source of infection? No. Patient's initial sepsis screen is negative. Risk Assessment: Do you want to hurt yourself or someone else? Patient reports no desire to harm self or others. Onset of symptoms was September 24, 2020. 21:34 Method Of Arrival: Ambulatory vg1 21:34 Acuity: KLAUS 3 vg1 Triage Assessment: 21:38 General: Appears in no apparent distress. comfortable, Behavior is calm, cooperative. vg1 Pain: Denies pain. GI: Reports diarrhea, nausea, vomiting. 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 - Social history:: Smoking status: Patient denies any tobacco usage or history of. Screenin:42 Abuse screen: Denies threats or abuse. Nutritional screening: No deficits noted. ea Tuberculosis screening: No symptoms or risk factors identified. Fall Risk None identified. Assessment: 22:59 General: Appears in no apparent distress. Behavior is calm, cooperative, appropriate ea for age. Pain: Complains of pain in left upper quadrant and right upper quadrant. Neuro: Level of Consciousness is awake, alert, obeys commands. Cardiovascular: Patient's skin is warm and dry. Respiratory: Airway is patent Respiratory effort is even, unlabored, Respiratory pattern is regular, symmetrical. GI: Abdomen is non-distended. Derm: Skin is pink, warm \T\ dry. 10/04 00:40 Reassessment: Patient and/or family updated on plan of care and expected duration. Pain ea level reassessed. Patient is alert, oriented x 3, equal unlabored respirations, skin warm/dry/pink. Provider at bedside updating pt on plan of care. Vital Signs: 10/03 21:34 BP 156 / 96; Pulse 83; Resp 16; Temp 98.2; Pulse Ox 99% ; Weight 68.95 kg; Height 5 ft. vg1 2 in. (157.48 cm); Pain 0/10; 22:59 BP 196 / 106; Pulse 78; Resp 18; Pulse Ox 100% on R/A; ea 10/04 00:48 BP 156 / 58; Pulse 92; Resp 18; Pulse Ox 100% on R/A; ea 10/03 21:34 Body Mass Index 27.80 (68.95 kg, 157.48 cm) vg1 ED Course: 10/03 19:44 Patient arrived in ED. wm 21:38 Triage completed. vg1 21:38 Arm band placed on Patient placed in waiting room, Patient notified of wait time. vg1 22:28 Alo Timmons MD is Attending Physician. pkl 22:47 Gilda Ku, ROB is Primary Nurse. ea 22:58 Patient has correct armband on for positive identification. Bed in low position. Call ea light in reach. Adult w/ patient. 22:58 Inserted. Inserted saline lock: 20 gauge in right antecubital area, using aseptic ea technique. Blood collected. 23:54 CT Abd/Pelvis - IV Contrast Only In Process Unspecified. EDMS 10/04 00:48 No provider procedures requiring assistance completed. ea Administered Medications: 10/03 22:49 Drug: Tylenol 650 mg Route: PO; ea 22:49 Drug: Motrin (ibuprofen) 400 mg Route: PO; ea 22:58 Drug: NS 0.9% 1000 ml Route: IV; Rate: 1000 ml; Site: right antecubital; ea 23:08 Drug: Zofran (Ondansetron) 4 mg Route: IVP; Site: right antecubital; ea 10/04 00:42 Drug: K-Lyte (potassium) Effervescent Tablet 50 mEq Route: PO; ea Outcome: 00:46 Discharge ordered by . meri 01:04 Discharged to home ambulatory. ak2 01:04 Condition: good 01:04 Discharge instructions given to patient, Prescriptions given X 01:05 Patient left the ED. ak2 Signatures: Dispatcher [employer] EDMS Alo Timmons MD MD pkl Antunez, Elena RN RN Harriet Villegas RN RN Hai Hudson2 Radha Peres
[2020-10-04] MEDS ORDERED: POTASSIUM 25 MEQ EFFERV TAB ONE (00:50)
[2020-10-04 01:00] LABS: Urine Blood 2+ (Negative); Urine Glucose 2+ (Negative); Urine Protein 3+ (Negative)
[2020-10-04 01:16] VITALS: TEMP 98.2
[2020-10-04 01:18] VITALS: O2SAT 100
[2020-10-04 01:20] VITALS: BP 156/58
--- NOTE | 2020-10-04 21:50 | RAD REPORT ---
EXAM DESCRIPTION: CT - Abdomen Pelvis W Contrast - 10/04/2020 6:28 am CLINICAL HISTORY: The patient is 50 years old and is Female; ABD PAIN TECHNIQUE: Axial computed tomography images of the abdomen and pelvis with intravenous contrast. S agittal and coronal reformatted images were created and reviewed. This CT exam was performed using one or more of the following dose reduction techniques: automated exposure control, adjustment of t he mA and/or kV according to patient size, and/or use of iterative reconstruction technique. COMPARISON: CT abdomen and pelvis April 19, 2019. FINDINGS: Lung bases: Unremarkable. No mass. No consolidation. ABDOMEN: Liver: Unremarkable. No mass. Gallbladder and bile ducts: Gallbladder is surgically absent. No ductal dilation. Pancreas: Unremarkable. No mass. No ductal dilation. Spleen: Unremarkable. No splenomegaly. Adrenals: Unremarkable. No mass. Kidneys and ureters: Right extrarenal pelvis. No hydronephrosis. Stomach and bowel: Unremarkable. No obstruction. No mucosal thickening. PELVIS: Appendix: No findings to suggest acute appendicitis. Bladder: Suggestion of mild diffuse bladder wall thickening. Reproductive: Unremarkable as visualized. ABDOMEN and PELVIS: Intraperitoneal space: Unremarkable. No free air. No significant fluid collection. Bones/joints: No acute fracture. No dislocation. Soft tissues: Mild subcutaneous fat stranding along the flanks bilaterally. Vasculature: Scattered atherosclerotic vascular calcifications. No abdominal aortic aneurysm. Lymph nodes: Unremarkable. No enlarged lymph nodes. IMPRESSION: 1. Suggestion of mild diffuse bladder wall thickening. Correlate with any concern fo r cystitis. 2. Gallbladder is surgically absent. Electronically signed by: Wilmar Dominguez MD 10/04/2020 12:24 AM CDT Due to temporary technical issues with the PACS/Fluency reporting system, reports are being signed by the in house radiologists without review as a courtesy to insure prompt reporting. The interpreting radiologist is fully responsible for the content of the report.
== END 2020-10-04 01:05 | disposition home or self-care (01) ==
LOC: ER 19:40
DX: K21.9 Gastro-esophageal reflux disease without esophagitis (principal); I10 Essential (primary) hypertension; E11.9 Type 2 diabetes mellitus without complications; Z88.1 Allergy status to other antibiotic agents; Z88.5 Allergy status to narcotic agent
CPT/HCPCS: 85025; 80048; 36415; 80076; 81003; 83690; 74177; 96374; 99284; Q9967; J7030

== ENCOUNTER 2021-03-10 18:57 | Emergency (ER) | payer BC ==
--- OUTSIDE RECORDS SUMMARY | 2021-03-10 19:01 | XMS REPORT | Continuity of Care Document ---
:[address] [facility] t Address [address] [place] [address] Care Team Providers Name Role Phone Benson Manley MD Primary Care Physician JUANITA Attending Clinician Unavailable Juanita VILCHIS Attending Clinician Kermit VILCHIS, Gene Attending Clinician Benjamin_Flaco Attending Clinician Unavailable Tez Manley Admitting Clinician Unavailable Alex Admitting Clinician Unavailable Payers Payer Name Policy Type Policy Number Effective Date Expiration Date Sara tovar BC[employer]-SC: (PPO) [id number] 2019 2021 00:00:00 00:00:00 Problems Condition Condition Condition Status Onset Resolution Last Treating Co mments Source Name Details Category Date Date Treatment Clinician Date GADIEL GADIEL Disease Active Univers (obstructi (obstructi 9-21 it y of ve sleep ve sleep 00:00: [place] apnea) apnea) 00 Medical Branch Obesity Obesity Problem Active [place] 5-06 Family 00:00: Practic 00 e Irritable Irritable Problem Active Bert summer bowel Bowel 4-22 Family syndrome Syndrome 00:00: Practi c 00 e Low blood Low Blood Problem Active Bert summer pressure Pressure 6-18 Family 00:00: Practic 00 e Dizziness Dizziness Problem Active Bert summer and and 618 Family giddiness Giddiness 00:00: Prac tic 00 e Essential Essential Problem Active Bert summer hypertensi Hypertensi 5-21 Fa mary ann on on 00:00: Practic 00 e Gastropare Gastropare Problem Active V illage sis sis 5-21 Family syndrome Syndrome 00:00: Practi c 00 e Proteinuri Proteinuri Problem Active V ill[place] a a 5-21 Family 00:00: Practic 00 e Hypertensi Hypertensi Problem Active [facility] [place] ve ve 5-21 Family disorder Disorder 00:00: Practi c 00 e Localized Localized Problem Active Bert summer edema Edema 5-21 Family 00:00: Practic 00 e Hypoxia Hypoxia Disease Active Univers 3-30 ity of 00:00: [place] 00 Medical Branch Acute Acute Disease Active Univers diastolic diastolic 3-30 ity of congestive congestive 00:00: [place] heart heart 00 Medical failure failure Branch Pneumonia Pneumonia Disease Active Uni vers due to due to 3-30 [place] infectious [place] organism organism 00 Medica l Branch HTN HTN Disease Active Univers (hypertens (hypertens 3-30 it y of ion) ion) 00:00: [place] 00 Medical Branch Urinary Urinary Problem Active 2018-[address] [...] of Problem Active V illage urine Urine 8-11 Family substance Substance 00:00: Prac tic level Level 00 e Hypothyroi Hypothyroi Problem Active [facility] [place] dism dism 09-12 Family 00:00: Practic 00 e Retinopath Retinopath Problem Active V ill[facility] y due to y Due to 09-12 Family type 2 Type 2 00:00: Practic diabetes Diabetes 00 e mellitus Mellitus Family Family Problem Active Village history of History of 09-12 Irma reese diabetes Diabetes 00:00: Practi c mellitus Mellitus 00 e Screening Screening Problem Active Bert terrazas 09-12 Family disorder Disorder 00:00: Practi c 00 e Tinea Tinea Problem Active Basil Greenfield 09-12 Family 00:00: Practic 00 e Type 2 Type 2 Disease Active Univers diabetes diabetes 07-17 ity of mellitus mellitus 00:00: [place] 00 Medical Branch Hyperlipid Hyperlipid Disease Active U dwightnazario emia emia 07-17 ity of 00:00: [place] Medical [facility] Nephrolith Nephrolith Disease Active U rigoberto iasmc iasis 07-17 ity of 00:00: [place] 00 Medical Branch Allergies, Adverse Reactions, Alerts Allergy Allergy Status Severity Reaction(s) Onset Inactive Treating Comm ents Source Name Type Date Date Clinician AMLODIPI DRUG Active Swelling 2020-03 Univer s NE INGREDI 2-20 ity of 00:00: [place] 00 Medical Branch Amlodipi Propensi Active Swelling 2020-03 Univ ers ne ty to 2-20 ity of adverse 00:00: [place] reaction 00 Medical s Branch Sulfamet Propensi Active Swelling Univ ers hoxazole ty to 9-07 ity of adverse 00:00: [place] reaction 00 Medical s Branch Trimetho Propensi Active Swelling 0 Univ ers prim ty to 9-07 ity of adverse 00:00: [place] reaction 00 Medical s Branch TRIMETHO DRUG Active Swelling 0 Univer s PRIM INGREDI 9-07 ity of 00:00: [place] 00 Medical Branch SULFAMET DRUG Active Low Swelling 0 Univer s HOXAZOLE INGREDI 9-07 ity of 00:00: [place] 00 Medical Branch Lisinopr Propensi Active Cough 0 Univer s il ty to 5-10 ity of adverse 00:00: [place] reaction 00 Medical s Branch LISINOPR DRUG Active COUGH 2020-0 Univers IL INGREDI 5-10 ity of 00:00: [place] 00 Medical Branch No Known DA Active U 2019-0 [facility] Allergie 6-18 [place] 00:[facility]: d 00 [facility] No Known DA Active U 0 [facility] Allergie 18 [place] 00:00: d 00 [facility] Tramadol Propensi Active Itching Unive rs ty to 6-06 ity of adverse 00:00: [place] reaction 00 Medical s Branch TRAMADOL DRUG Active ITCHING 2017-0 Univers INGREDI 08-10 ity of 00:00: [place] 00 Medical Branch Metformi Allergy Active Diarrhea B[place] ge n to Family substanc Practic e e Ramipril Allergy Active Rash [place] to Family substanc Practic e e Tramadol Allergy Active Hives [place] to Family substanc Practic e e Social History Social Habit Start Date Stop Date Quantity Comments Source Exposure to Not sure [facility] SARS-CoV-2 [facility] [place] [facility] (event) [place] Alcohol intake 2021-01-26 2021-01-26 .48 /d University of 00:00:00 00:00:00 [facility] Tobacco use and 2020-11-11 2020-11-11 Never used Universit y of exposure 00:00:00 00:00:00 [facility] Tobacco Comment 2020-11-11 2020-11-11 quit [address] [facility] [place] [place] ersity of 00:00:00 00:00:00 [facility] Sex [birth year] Universit y of 00:00:00 00:00:00 [facility] Smoking Status Start Date Stop Date Source Never Smoker [place] Family P racjenny Former smoker 2020-11-11 00:00:00 2020-11-11 00:00:00 [facility] Medications Ordered Filled Start Stop Current Ordering Indication Dosage Frequency Signature Comments Components Source Medication Medication Date Date Medication? Clinician (SIG) Name Name cloniDINE 2020-03 Yes [id number] 1{patch Apply 1 Univers 0.1 mg/24 2-20 } Patch to ity of hr patch 00:00: skin 00 weekly. Medical Branch carvediloL 2020-03 Yes 12.5mg Take 12.5 Univers 12.5 mg 2-09 mg by ity of tablet 15:47: mouth 2 [place] (two) Medical times [place] daily with meals. carvediloL 2020-03 Yes 12.5mg Take 12.5 Univers 12.5 mg 2-09 mg by ity of tablet 15:47: mouth 2 [place] (two) Medical times Branch daily with meals. insulin 2020-03 Yes inject Univers aspart 1-22 under the ity of (NOVOLOG 11:25: skin. Per Glo mendoza FLEXPEN 42 SS Medical U-100 Branch INSULIN SC) aspirin 81 2020-03 Yes 81mg Take 81 mg U nivers mg chewable 03-28 by mouth ity of tablet 11:25: daily. [place] [address] Medical Branch dapaglifloz 2020-03 Yes Take by Un arturo in 03-28 mouth ity of (FARXIGA) 5 11:25: [place]. [place] mg tablet [place] Branch linaGLIPtin 2020-03 Yes Take by Un arturo (TRADJENTA) 03-28 mouth ity of 5 mg tablet 11:25: [place]. [place] 42 [place] TURMERIC 2020-03 Yes 500mg Take 500 Univ ers ORAL -22 mg by ity of 11:25: mouth 2 [place] 42 (two) Medical times Branch daily. Cholecalcif 2020-03 Yes Take by Un arturo kassidy, 03-28 mouth ity of Vitamin D3, 11:25: daily. Glo s (VITAMIN 42 Medical D3) 25 mcg Branch (1,000 unit) capsule bumetanide 2020-03 Yes 1mg 1 mg at Univ ers 1 mg tablet 03-28 bedtime. ity of 11:25: [address] Branch ergocalcife 2020-03 Yes [id number] Take Univ ers rol, 03-28 50,000 ity of vitamin d2, 11:25: Units by Leighton mott (VITAMIN 42 mouth Medical D2) 1,250 weekly. Branch mcg (50,000 unit) capsule nystatin 2020-03 Yes Take by Unive rs 100,000 03-28 mouth 4 ity of unit/mL 11:25: (four) [facility] 42 times Medical daily. Branch insulin 2020-03 Yes inject Univers aspart 03-28 under the ity of (NOVOLOG 11:25: skin. Per Glo s FLEXPEN 42 SS Medical U-100 Branch INSULIN SC) aspirin 81 2020-03 Yes 81mg Take 81 mg U nivers mg chewable 03-28 by mouth ity of tablet 11:25: daily. [address] Branch dapaglifloz 2020-03 Yes Take by Un arturo in 03-28 mouth ity of (FARXIGA) 5 11:25: [place]. [place] mg tablet Medical Branch linaGLIPtin 2020-03 Yes Take by Un arturo (TRADJENTA) 03-28 mouth ity of 5 mg tablet 11:25: [place]. [place] 42 [place] TURMERIC 2020-03 Yes 500mg Take 500 Univ ers ORAL 1-22 mg by ity of 11:25: mouth 2 42 (two) Medical times Branch daily. Cholecalcif 2020-03 Yes Take by Un arturo kassidy, 03-28 mouth ity of Vitamin D3, 11:25: daily. [place] (VITAMIN 42 Medical D3) 25 mcg Branch (1,000 unit) capsule bumetanide 2020-03 Yes 1mg 1 mg at Univ ers 1 mg tablet 03-28 bedtime. ity of 11:25: Medical Branch ergocalcife 2020-03 Yes [id number] Take Univ ers rol, 03-28 50,000 ity of vitamin d2, 11:25: Units by Leighton mott (VITAMIN 42 mouth Medical D2) 1,250 weekly. Branch mcg (50,000 unit) capsule nystatin 2020-03 Yes Take by Unive rs 100,000 03-28 mouth 4 ity of unit/mL 11:25: (four) [place] suspension 42 times Medical daily. Branch amLODIPine 2020-03- No [id number] 10mg Take 1 Univers 10 mg 03-28 1209 tablet by ity of tablet 00:00: 00:00 mouth [place] 00 :00 daily. Medical Branch topiramate 2020-03 Yes [id number] 25mg Take 1 Univers 25 mg 0-21 tablet by ity of tablet 00:00: mouth 2 00 (two) Medical times Branch daily. topiramate 2020-03 Yes [id number] 25mg Take 1 Univers 25 mg 0-21 tablet by ity of tablet 00:00: mouth 2 00 (two) Medical times Branch daily. spironolact Yes [id number] 25mg Take 1 Univers one 25 mg 9-21 02 tablet by ity o f tablet 00:00: mouth [place] 00 daily. Medical Branch thyroid Yes [id number] 15mg Take 0.5 Un arturo (ARMOUR 9-21 tablets by ity of THYROID) 30 00:00: mouth [place] mg tablet 00 every Medical morning. Branch spironolact Yes [id number] 25mg Take 1 Univers one 25 mg 9-21 02 tablet by ity o f tablet 00:00: mouth [place] 00 daily. Medical Branch thyroid Yes [id number] 15mg Take 0.5 Un arturo (ARMOUR 9-21 tablets by ity of THYROID) 30 00:00: mouth [place] mg tablet 00 every Medical morning. Branch gabapentin Yes [id number] 100mg Take 1 Univers 100 mg 3-19 capsule by ity of capsule 00:00: mouth 3 [place] 00 (three) Medical times Branch daily. gabapentin Yes [id number] 100mg Take 1 Univers 100 mg 3-19 capsule by ity of capsule 00:00: mouth 3 [place] 00 (three) Medical times Branch daily. flash 2020 Yes [id number] 1{appli 1 Unive rs glucose 3-31 catorfu Applicator ity of scanning 00:00: l} ful 4 [place] reader 00 (four) Medical (FREESTYLE times Branch TEA 14 daily. DAY READER) Check Misc glucose QID as directed flash Yes [id number] 1{appli 1 Unive rs glucose 3-31 cator} Applicator ity of sensor 00:00: 4 (four) [place] (FREESTYLE 00 times Medical TEA 14 daily. Branch DAY SENSOR) Kit flash Yes [id number] 1{appli 1 Unive rs glucose 3-31 catorfu Applicator ity of scanning 00:00: l} ful 4 [place] reader 00 (four) Medical (FREESTYLE times Branch TEA 14 daily. DAY READER) Check Misc glucose QID as directed flash Yes [id number] 1{appli 1 Unive rs glucose 3-31 cator} Applicator ity of sensor 00:00: 4 (four) [place] (FREESTYLE 00 times Medical TEA 14 daily. 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 Thyroid [place] 30 mg 30 mg 30 [...] Vitamin D2 Vitamin D2 No Vitamin D2 [facility] Family Practic e Vitamin D3 Vitamin D3 No Vitamin D3 [facility] 1000 IU 1000 IU 1000 IU Family DAILY DAILY DAILY Practic e Vital Signs Vital Name Observation Time Observation Value Comments Source BP Diastolic 2020-07-10 00:00:00 86 mm[Hg] [facility] Height 2020-07-10 00:00:00 62 [in_i] [facility] BMI (Body Mass 2020-07-10 00:00:00 33.5 kg/m2 Vill e Family Index) Practice BP Systolic 2020-07-10 00:00:00 137 mm[Hg] [facility] Body Weight 2020-07-10 00:00:00 183 [lb_av] [facility] BP Diastolic 2020-02-07 00:00:00 78 mm[Hg] [facility] Height 2020-02-07 00:00:00 62 [in_i] [facility] BMI (Body Mass 2020-02-07 00:00:00 33 kg/m2 [place] Family Index) Practice BP Systolic 2020-02-07 00:00:00 122 mm[Hg] [facility] Body Weight 2020-02-07 00:00:00 180.2 [lb_av] [facility] BP Diastolic 2019-12-24 00:00:00 78 mm[Hg] [facility] Height 2019-12-24 00:00:00 62 [in_i] [facility] BMI (Body Mass 2019-12-24 00:00:00 31.5 kg/m2 [place] Family Index) Practice BP Systolic 2019-12-24 00:00:00 110 mm[Hg] [facility] Body Weight 2019-12-24 00:00:00 172 [lb_av] [facility] Practice Procedures This patient has no known procedures. [...] Date/Time Type Type Clinicians Facility Department ID 2019-08-23 Inpatient HCAPM KEI [id number] [facility] 16:16:00 [facility] 2019-08-23 Inpatient HCAPM KEI [id number] [facility] 16:12:00 [id number] [facility] 2021-03-02 2021-03-02 [id number] Univers 13:00:00 13:00:00 DANYA [id number] ity o f [facility] 2021-02-23 2021-02-23 Telephone [facility] [id number] Univers 00:00:00 00:00:00 Danya HAY [id number] ity of [facility] [id number] [place] PROFESS[place] [id number] Tn dical [address] 2021-02-09 2021-02-09 Telephone [facility] [id number] Univers 00:00:00 00:00:00 Danya HAY [id number] ity of [facility] [id number] [place] PROF[place] [phone] Tn dical NAL 9 [facility] 2020-09-23 2020-09-23 [facility] [id number] 11:10:57 11:46:21 Visit Benson Hay [id number] [place] [id number] Professio [phone] 2020-07-12 2020-07-12 Outpatient Daniel_T VFP VFP [id number] [id number] [facility] 01:24:00 01:24:00 [id number] Family Practic e 2020-07-12 2020-07-12 Outpatient Daniel_T VFP VFP [id number] [id number] [facility] 01:22:00 01:22:00 [id number] Family Practic e 2020-07-10 2020-07-10 Outpatient Daniel_T VFP VFP [id number] [id number] [facility] 11:45:00 11:45:00 [id number] Family Practic e 2020-07-10 2020-07-10 Samm VFP [place] - [id number] V illage 00:00:00 00:00:00 [facility] Family AlexanderNegar MD: [id number] [facility], [address], [place] [address] , Ph. 2020-04-10 2020-04-10 Outpatient Daniel_T VFP VFP [id number] 0-20 [facility] 07:43:00 07:43:00 [id number] Family Practic e 2020-03-14 2020-03-14 Outpatient Daniel_T VFP VFP [id number] [id number] [facility] 03:25:00 03:25:00 [id number] Family Practic e 2020-03-01 2020-03-01 Outpatient Daniel_T VFP VFP [id number] [id number] [facility] 01:02:00 01:02:00 [id number] Family Practic e 2020-02-11 2020-02-11 Outpatient Daniel_T VFP VFP [id number] [id number] [facility] 07:53:00 07:53:00 [id number] Family Practic e 2020-02-11 2020-02-11 Outpatient Daniel_T VFP VFP [id number] 0-20 [facility] 07:53:00 07:53:00 [id number] Family Practic e 2020-02-07 2020-02-07 Outpatient Daniel_T VFP VFP [id number] [id number] [facility] 04:53:00 04:53:00 [id number] Family Practic e 2020-02-07 2020-02-07 Samm VFP [place] - [id number] V illage 00:00:00 00:00:00 [facility] Family AlexanderNegar MD: [id number] Laura nix [facility] [address] [address] , Ph. 2019-12-31 2019-12-31 Outpatient Daniel_T VFP VFP [id number] [id number] [facility] 02:04:00 02:04:00 [id number] Family Practic e 2019-12-24 2019-12-24 Outpatient Daniel_T VFP VFP [id number] [id number] [facility] 12:34:00 12:34:00 [id number] Family Practic e 2019-12-24 2019-12-24 Samm VFP [place] - [id number] V illage 00:00:00 00:00:00 [facility] Family Alexander Medical - Pracdonnie sanz MD: [id number] Laura n[address] [facility] [address], [place] [address] , Ph. 2019-12-13 2019-12-13 Outpatient Daniel_T VFP VFP [id number] 0-20 [facility] 04:08:00 04:08:00 Family Practic e 2019-12-13 2019-12-13 Outpatient Daniel_T VFP VFP [id number] 0-20 [facility] 04:08:00 04:08:00 [id number] Family Practic e 2019-12-03 2019-12-03 Outpatient Daniel_T VFP VFP [id number] 0-20 [facility] 03:40:00 03:40:00 [id number] Family Practic e 2019-11-07 2019-11-07 Outpatient Daniel_T VFP VFP [id number] [id number] [facility] 10:47:00 10:47:00 [id number] Family Practic e Results Test Description Test Time Test Comments [...] N Completed by Nursing: NONT PRO-BRAIN NATRIURETIC [id number] 18:36:00 Test Item Value Reference Range Interpretation Comments NT PRO-BRAIN NATRIURETIC PEPTI 368 PG/ML 0-100 H (test code = PROBNP) Completed by Nursing: [id number] 18:36:00 Test Item Value Reference Range Interpretation [...] Completed by Nursing: NODRUGS OF ABUSE SCREEN [id number] 18:36:00 Test Item Value Reference Range Interpretation [...] NEGATIVE SCcutoff <300 NG/ML [place]) BASIC METABOLIC [id number] 18:32:00 Test Item Value Reference Range Interpretation [...] N Completed by Nursing: NONT PRO-BRAIN NATRIURETIC [id number] 18:32:00 Test Item Value Reference Range Interpretation Comments NT PRO-BRAIN NATRIURETIC PEPTI (test PG/ML 0-100 code = PROBNP) Completed by Nursing: [id number] 18:32:00 Test Item Value Reference Range Interpretation Comments TROPONIN-I (test code = TROPI) NG/ML 0.000-0.045 Completed by Nursing: NOCBC W/AUTO [id number] 18:20:00 Test Item Value Reference Range Interpretation [...] CRITERIA = MDIFF) - CT HEAD/BRAIN W/O [id number] 17:04:00 Name: MORELIA ROMEO [facility] : 1970 Age/S: 49 / F [id number] [facility] Unit #: [id number] Loc: [place] [address] Phys: Domenica Quinn MD Acct: [id number] Dis Date: Status: PRE ER PHONE #: [phone] Exam Date: 08/23/2019 1632 FAX #: Reason: syncope EXAMS: CPT: [id number] CT HEAD/BRAIN W/O CONT [id number] INDICATIONS: syncope TECHNIQUE: Contiguous axial CT sections were obtained from the skull base to the vertex without intravenous contrast administration. CT DLP dose: 804 mGy centimeters. Iterative dose reduction technique utilized. Location: [id number]: None available. FINDINGS: The brain parenchyma is [...] Lora, RT(R)(CT) CTDI: DLP: Trnscb Date/Time: 08/23/2019 (1704) [email or web address] Orig Print D/T: S: 08/23/2019 (8664) PAGE 1 Signed Report
[2021-03-10 20:04] LABS: Urine Blood 3+ (Negative); Urine Glucose 3+ (Negative); Urine Protein 3+ (Negative); Urine Specific Gravity 1.015 (1.005-1.030)
[2021-03-10] MEDS ORDERED: IBUPROFEN 400 MG TAB ONE (20:35)
[2021-03-10 21:02] LABS: SARS-COV-2 RT PCR POSITIVE (NEGATIVE)
--- NOTE | 2021-03-10 21:20 | RAD REPORT ---
EXAM DESCRIPTION: RAD - Chest Single View - 03/10/2021 8:30 pm CLINICAL HISTORY: fever, cough COMPARISON: Chest Single View dated 08/25/2020; Chest Single View dated 08/02/2017; Chest Pa And Lat ( 2 Views) dated 05/16/2017 FINDINGS: Lines: None. Lungs: Mild basilar airspace disease. Pleural: No significant pleural effusions or pneumothorax. Cardiac: The heart size is within normal limits. Bones: No acute fractures. Other: IMPRESSION: Mild basilar airspace disease concerning for multifocal pneumonia.
--- NOTE | 2021-03-10 21:49 | EDPHYS ---
Physician Documentation [facility] Name: Alyson Mayfield Age: 51 yrs Sex: Female : 1970 Arrival Date: 03/10/2021 Time: 19:01 Bed 17 Private MD: ED Physician Wesley Shultz HPI: 03/10 19:19 This 51 yrs old Female presents to ER via Ambulatory with complaints of Cough, jmm Pain All Over, Chest Pain, High Blood Pressure, Nausea, CHILLS. 19:19 The patient or guardian reports cough. Onset: The symptoms/episode began/occurred jmm gradually, 1 week(s) ago. Modifying factors: The symptoms are alleviated by nothing, the symptoms are aggravated by nothing. Associated signs and symptoms: Pertinent positives: fever, sore throat, vomiting. This is a 51 year old female with a history of dm, htn, kidney stones, that presents ot the ED with complaints of chest congestion, cough, vomiting with cough. EVP OF [employer]ODUCTS [employer] F[employer]ER: 19:11 LMP N/A - Post-menopause tw5 Historical: - Allergies: 19:14 Bactrim; tw5 19:14 Tramadol HCl; tw5 - Home Meds: 19:14 [place] Thyroid 30 mg Oral tab daily [Active]; topiramate 25 mg oral cp24 1 cap once tw5 daily [Active]; carvedilol 12.5 mg oral tab 1 tab every 12 hours [Active]; Farxiga 5 mg oral tab 1 tab once daily [Active]; Tradjenta 5 mg oral tab 1 tab once daily [Active]; - PMHx: 19:14 CHF; Diabetes - NIDDM; Hypertension; Kidney stones; Thyroid problem; tw5 - PSHx: 19:14 Cholecystectomy; tw5 - Immunization history:: Flu vaccine is not up to date. - Social history:: Smoking status: Patient denies any tobacco usage or history of. ROS: 19:19 Constitutional: Positive for body aches, chills, fatigue. jmm 19:19 Cardiovascular: Positive for chest pain, with cough. 19:19 Respiratory: Positive for cough. 19:19 Abdomen/GI: Positive for vomiting. 19:19 All other systems are negative. Exam: 19:19 Constitutional: This is a well developed, well nourished patient who is awake, alert, jmm and in no acute distress. Head/Face: atraumatic. Eyes: EOMI, no conjunctival erythema appreciated ENT: Moist Mucus Membranes Neck: Trachea midline, Supple Chest/axilla: Normal chest wall appearance and motion. Cardiovascular: Regular rate and rhythm. No edema appreciated Respiratory: Normal respirations, no respiratory distress appreciated Abdomen/GI: Non distended, soft Back: Normal ROM Skin: General appearance color normal MS/ Extremity: Moves all extremities, no obvious deformities appreciated, no edema noted to the lower extremities Neuro: Awake and alert, normal gait Psych: Behavior is normal, Mood is normal, Patient is cooperative and pleasant Vital Signs: 19:11 BP 174 / 81; Pulse 87; Resp 20; Temp 99.5(O); Pulse Ox 98% on R/A; Weight 68.49 kg; tw5 Height 5 ft. 2 in. (157.48 cm); Pain 8/10; 20:45 BP 175 / 77; Pulse 93; Resp 14; Temp 100.3; Pulse Ox 98% on R/A; ojel 20:45 BP 188 / 94; Pulse 94; Resp 16; Pulse Ox 99% on R/A; joel 21:53 Temp 100.2; joel 21:53 BP 181 / 83; Pulse 94; Resp 16; Temp 100.2; Pulse Ox 99% on R/A; joel 19:11 Body Mass Index 27.62 (68.49 kg, 157.48 cm) tw5 MDM: 20:07 Patient medically screened. [facility] 21:47 Data reviewed: vital signs, nurses notes. Counseling: I had a detailed discussion with [facility] the patient and/or guardian regarding: the historical points, exam findings, and any diagnostic results supporting the discharge/admit diagnosis, lab results, radiology results, the need for outpatient follow up, to return to the emergency department if symptoms worsen or persist or if there are any questions or concerns that arise at home. ED course: Patient is alert and non toxic in appearance in the ED. No signs of resp distress. Advised to follow up with pcp and otherwise given strict return precautions. Patient understood and agrees with the plan of care. . 03/10 19:55 Order name: COVID-19/FLU A+B (Document "Date of Onset" if Symptomatic) [facility] 03/10 19:56 Order name: COVID-19/FLU A+B; Complete Time: 21:07 EDWV 03/10 19:19 Order name: Urine Dipstick-Ancillary (obtain specimen); Complete Time: 20:05 tw5 03/10 20:04 Order name: Urine Dipstick-Ancillary; Complete Time: 20:16 EDMS 03/10 20:08 Order name: Chest Single View XRAY; Complete Time: 21:[address] [facility] Administered Medications: 21:00 Drug: Ibuprofen 400 mg Route: PO; joel 21:54 Follow up: Response: No adverse reaction; Temperature is decreased joel Disposition: 03/11 05:18 Co-signature as Attending Physician, Wesley Shultz MD. [email or web address] Disposition Summary: 03/10/21 21:49 Discharge Ordered Location: Home [facility] Condition: Stable [facility] Diagnosis - Coronavirus infection, unspecified [facility] Followup: [facility] - With: Private Physician - When: 2 - 3 days - Reason: Recheck today's complaints, Continuance of care, Re-evaluation by your physician Discharge Instructions: - Discharge Summary Sheet [facility] - COVID-[address] [facility] - Form - Return To Work critical access hospital Forms: - Medication Reconciliation Form [facility] - Thank You Letter [facility] - Antibiotic Education [facility] - Prescription Opioid Use [facility] - Work release form critical access hospital Prescriptions: - promethazine-DM - take 10 milliliter by ORAL route every 6 hours; 200 milliliter; Refills: 0, [facility] Product Selection Permitted - albuterol sulfate 90 mcg/actuation Inhalation HFA aerosol inhaler - inhale 2 puff by INHALATION route every 6 hours; 1 Pump; Refills: 0, Product [facility] Selection Permitted Signatures: Dispatcher [employer] [facility] Lincoln Ty PA PA jmm Holmes, Maurice, MD MD 7 Noemi Fitzpatrick [facility] Crystal Castle RN RN joel Corrections: (The following items were deleted from the chart) 03/10 19:18 19:14 PMHx: Diabetes - IDDM; tw5 tw5
--- NOTE | 2021-03-10 21:49 | ER ---
Nurse's Notes [facility] Name: Alyson Mayfield Age: 51 yrs Sex: Female : 1970 Arrival Date: 03/10/2021 Time: 19:01 Bed 17 Private MD: Diagnosis: Coronavirus infection, unspecified Presentation: 03/10 19:12 Chief complaint: Patient states: "Just my body aches, the coughing is terrible. tw5 Throwing up this morning. The coughing is making my chest hurt. I cannot sleep. I also feel like I have an urinary infection that just came out of nowhere that started about an hour ago.". Coronavirus screen: Vaccine status: Patient reports being unvaccinated. Ebola Screen: Patient negative for fever greater than or equal to 101.5 degrees Fahrenheit, and additional compatible Ebola Virus Disease symptoms Patient denies exposure to infectious person. Patient denies travel to an Ebola-affected area in the 21 days before illness onset. Initial Sepsis Screen: Does the patient meet any 2 criteria? No. Patient's initial sepsis screen is negative. Does the patient have a suspected source of infection? No. Patient's initial sepsis screen is negative. Risk Assessment: Do you want to hurt yourself or someone else? Patient reports no desire to harm self or others. Onset of symptoms was March 08, 2021. 19:12 Method Of Arrival: Ambulatory tw5 19:12 Acuity: KLAUS 4 tw5 Triage Assessment: 19:14 General: Appears in no apparent distress. Behavior is calm, cooperative, appropriate tw5 for age. Pain: Complains of pain in " all over body aches." Pain currently is 8 out of 10 on a pain scale. Cardiovascular: Pulses are 2+ in right radial artery and left radial artery. REHABILITATION COUNSELLOR: 19:11 LMP N/A - Post-menopause tw5 Historical: - Allergies: 19:14 Bactrim; tw5 19:14 Tramadol HCl; tw5 - Home Meds: 19:14 [place] Thyroid 30 mg Oral tab daily [Active]; topiramate 25 mg oral cp24 1 cap once tw5 daily [Active]; carvedilol 12.5 mg oral tab 1 tab every 12 hours [Active]; Farxiga 5 mg oral tab 1 tab once daily [Active]; Tradjenta 5 mg oral tab 1 tab once daily [Active]; - PMHx: 19:14 CHF; Diabetes - NIDDM; Hypertension; Kidney stones; Thyroid problem; tw5 - PSHx: 19:14 Cholecystectomy; tw5 - Immunization history:: Flu vaccine is not up to date. - Social history:: Smoking status: Patient denies any tobacco usage or history of. Screenin:19 Abuse screen: Denies threats or abuse. Denies injuries from another. Nutritional tw5 screening: No deficits noted. Tuberculosis screening: No symptoms or risk factors identified. Fall Risk No fall in past 12 months (0 pts). Secondary diagnosis (15 points). Assessment: 21:45 Reassessment: No changes from previously documented assessment. Pain: Denies pain. joel 21:45 Respiratory: Onset: The symptoms/episode began/occurred Coughing x "a few days". joel 21:55 General: Lincoln is at bedside explaining the Covid diagnosis to the pt and dc joel instructions. She has acknowledged understanding. . Vital Signs: 19:11 BP 174 / 81; Pulse 87; Resp 20; Temp 99.5(O); Pulse Ox 98% on R/A; Weight 68.49 kg; tw5 Height 5 ft. 2 in. (157.48 cm); Pain 8/10; 20:45 BP 175 / 77; Pulse 93; Resp 14; Temp 100.3; Pulse Ox 98% on R/A; joel 20:45 BP 188 / 94; Pulse 94; Resp 16; Pulse Ox 99% on R/A; joel 21:53 Temp 100.2; joel 21:53 BP 181 / 83; Pulse 94; Resp 16; Temp 100.2; Pulse Ox 99% on R/A; joel 19:11 Body Mass Index 27.62 (68.49 kg, 157.48 cm) tw5 ED Course: 19:01 Patient arrived in ED. ja2 19:14 Triage completed. tw5 19:14 Arm band placed on left wrist. tw5 19:52 Crystal Castle, RN is Primary Nurse. joel 19:55 Lincoln Ty PA is PHCP. jmm 19:55 Wesley Shultz MD is Attending Physician. jmm 20:30 Chest Single View XRAY In Process Unspecified. EDMS 20:32 COVID-19/FLU A+B (Document "Date of Onset" if Symptomatic) Sent. joel 20:32 COVID-19/FLU A+B Sent. joel 21:49 No provider procedures requiring assistance completed. joel 22:21 Patient has correct armband on for positive identification. Placed in gown. Bed in low ld1 position. Call light in reach. Side rails up X2. vehicle monitor technician on. Pulse ox on. NIBP on. 22:21 Patient did not have IV access during this emergency room visit. ld1 22:21 Patient maintains SpO2 saturation greater than 95% on room air. ld1 Administered Medications: 21:00 Drug: Ibuprofen 400 mg Route: PO; joel 21:54 Follow up: Response: No adverse reaction; Temperature is decreased joel Outcome: 21:49 Discharge ordered by . alton 21:50 Condition: stable joel 22:21 Discharged to home ambulatory. ld1 22:21 Discharge instructions given to patient. 22:21 Patient left the ED. ld1 Signatures: Dispatcher [employer] EDMS Lincoln Ty PA PA jmm Dibbern, Lauren, ROB RN ld1 Odessa Sifuentes Tiffany tw5 Crystal Castle, RN RN joel Corrections: (The following items were deleted from the chart) 19:18 19:14 PMHx: Diabetes - IDDM; tw5 tw5
[2021-03-10 22:52] VITALS: O2SAT 99
[2021-03-10 22:54] VITALS: BP 181/83; TEMP 100.2
== END 2021-03-10 22:21 | disposition home or self-care (01) ==
LOC: ER 18:57
DX: U07.1 COVID-19 (principal); E11.9 Type 2 diabetes mellitus without complications; I10 Essential (primary) hypertension; Z88.1 Allergy status to other antibiotic agents; Z88.5 Allergy status to narcotic agent
CPT/HCPCS: 81003; 0240U; 71045; 99285

== ENCOUNTER 2021-03-14 18:50 | Inpatient (IN) | payer BC ==
--- OUTSIDE RECORDS SUMMARY | 2021-03-14 18:55 | XMS REPORT | Continuity of Care Document ---
:1970 Author Organization [facility] t Address [address] [place] [address] Care Team Providers Name Role Phone eBnson Manley MD Primary Care Physician JUANITA Attending Clinician Unavailable Juanita VILCHIS Attending Clinician Kermit VILCHIS, Gene Attending Clinician Benjamin_Flaco Attending Clinician Unavailable Tez Manley Admitting Clinician Unavailable Alex Admitting Clinician Unavailable Payers Payer Name Policy Type Policy Number Effective Date Expiration Date Sara tovar [employer]: (PPO) [id number] 2019 2021 00:00:00 00:00:00 Problems Condition Condition [...] c 00 e Localized Localized Problem Active Bret summer edema Edema 5-21 Family 00:00: Practic [...] Allergie 6-18 [place] 00:00: d 00 [facility] No Known DA Active U 0 [facility] Allergie 18 [place] 00:00: d 00 [facility] Tramadol Propensi Active Itching Unive rs ty [...] Quantity Comments Source Exposure to Not sure [facility] SARS-CoV-2 [facility] (event) [place] Alcohol intake 2021-01-26 2021-01-26 .48 /d University of 00:00:00 00:00:00 [facility] Tobacco use and 2020-11-11 2020-11-11 Never used Universit y of exposure 00:00:00 00:00:00 [facility] Tobacco Comment 2020-11-11 2020-11-11 quit 30 yrs ago [facility] ersity of 00:00:00 00:00:00 [facility] Sex Ass[birth year] At [birth year] Universit y of 00:00:00 00:00:00 [facility] Smoking Status Start Date Stop Date Source Never Smoker [place] [facility] rac[facility]enny Former smoker 2020-11-11 00:00:00 2020-11-11 00:00:00 [facility] [place] [facility] Medications Ordered Filled Start Stop Current Ordering Indication Dosage Frequency Signature Comments Components Source Medication Medication Date Date Medication? Clinician (SIG) Name Name cloniDINE 2020-03 Yes [id number] 1{patch Apply 1 Univers 0.1 mg/24 2-20 } Patch to ity of hr patch 00:00: skin 00 weekly. Medical Branch carvediloL 2020-03 Yes 12.5mg Take 12.5 Univers 12.5 mg 2-09 mg by ity of tablet 15:47: mouth 2 [place] (two) Medical times [place] daily with meals. carvediloL 2020-03 Yes 12.5mg Take 12.5 Univers 12.5 mg 2-09 mg by ity of tablet 15:47: mouth 2 [place] (two) Medical times Branch daily with meals. insulin 2020-03 Yes inject Univers aspart 1-22 under the ity of (NOVOLOG 11:25: skin. Per Glo mendoza FLEXPEN 42 SS Medical U-100 Branch INSULIN SC) aspirin 81 2020-03 Yes 81mg Take 81 mg U nivers mg chewable 03-28 by mouth ity of tablet 11:25: daily. [place] [address] Medical Branch dapaglifloz 2020-03 Yes Take by Un arturo in 03-28 mouth ity of (FARXIGA) 5 11:25: [place]. [place] mg tablet [place] linaGLIPtin 2020-03 Yes Take by Un arturo (TRADJENTA) 03-28 mouth ity of 5 mg tablet 11:25: [place]. [place] 42 [place] TURMERIC 2020-03 Yes 500mg Take 500 Univ ers ORAL -22 mg by ity of 11:25: mouth 2 [place] 42 (two) Medical times Branch daily. Cholecalcif 2020-03 Yes Take by Un arturo kassidy, 03-28 mouth ity of Vitamin D3, 11:25: daily. [place] s (VITAMIN 42 Medical D3) 25 mcg Branch (1,000 unit) capsule bumetanide 2020-03 Yes 1mg 1 mg at Univ ers 1 mg tablet 03-28 bedtime. ity of 11:25: [address] Branch ergocalcife 2020-03 Yes [id number] Take Univ ers rol, 03-28 50,000 ity of vitamin d2, 11:25: Units by Leighton mott (VITAMIN 42 mouth Medical D2) 1,250 weekly. Branch mcg (50,000 unit) capsule nystatin 2020-03 Yes Take by Unive rs 100,000 03-28 mouth 4 ity of unit/mL 11:25: (four) [facility] 42 times Medical daily. Branch insulin 2020-03 Yes inject Univers aspart 03-28 under the ity of (NOVOLOG 11:25: skin. Per Glo s FLEXPEN 42 SS Medical U-100 Branch INSULIN SC) aspirin 81 2020-03 Yes 81mg Take 81 mg U nivers mg chewable 03-28 by mouth ity of tablet 11:25: daily. [address] Branch dapaglifloz 2020-03 Yes Take by [...] of 11:25: Medical Branch ergocalcife 2020-03 Yes [id number] Take Univ ers rol, 03-28 50,000 ity of vitamin d2, 11:25: Units by [place]on mott (VITAMIN 42 mouth Medical D2) 1,250 weekly. Branch mcg (50,000 unit) capsule nystatin 2020-03 Yes Take by Unive rs 100,000 03-28 mouth 4 ity of unit/mL 11:25: (four) [place] suspension 42 times Medical daily. Branch amLODIPine 2020-03- No [id number] 10mg Take 1 Univers 10 mg 03-28 1209 tablet by ity of tablet 00:00: 00:00 mouth [place] 00 :00 daily. Medical Branch topiramate 2020-03 Yes [id number] 25mg Take 1 Univers 25 mg 0-21 tablet by ity of tablet 00:00: mouth 2 00 (two) Medical times Branch daily. topiramate 2020-03 Yes [id number] 25mg Take 1 Univers 25 mg 0-21 tablet by ity of tablet 00:00: mouth 2 00 (two) Medical times Branch daily. spironolact Yes [id number] 25mg Take 1 Univers one 25 mg 9-21 02 tablet by ity o f tablet 00:00: mouth [place] 00 daily. Medical Branch thyroid Yes [id number] 15mg Take 0.5 Un arturo (ARMOUR 9-21 tablets by ity of THYROID) 30 00:00: mouth [place] mg tablet 00 every Medical morning. Branch spironolact Yes [id number] 25mg Take 1 Univers one 25 mg 9-21 02 tablet by ity o f tablet 00:00: mouth [place] 00 daily. Medical Branch thyroid Yes [id number] 15mg Take 0.5 Un arturo (ARMOUR 9-21 tablets by ity of THYROID) 30 00:00: mouth [place] mg tablet 00 every Medical morning. Branch gabapentin Yes [id number] 100mg Take 1 Univers 100 mg 3-19 capsule by ity of capsule 00:00: mouth 3 [place] 00 (three) Medical times Branch daily. gabapentin Yes [id number] 100mg Take 1 Univers 100 mg 3-19 capsule by ity of capsule 00:00: mouth 3 [place] 00 (three) Medical times Branch daily. flash 2020 Yes [id number] 1{appli 1 Unive rs glucose 3-31 catorfu Applicator ity of scanning 00:00: l} ful 4 [place] reader 00 (four) Medical (FREESTYLE times Branch TEA 14 daily. DAY READER) Check Misc glucose QID as directed flash Yes [id number] 1{appli 1 Unive rs glucose 3-31 cator} Applicator ity of sensor 00:00: 4 (four) [place] (FREESTYLE 00 times Medical TEA 14 daily. Branch DAY SENSOR) Kit flash Yes [id number] 1{appli 1 Unive rs glucose 3-31 catorfu Applicator ity of scanning 00:00: l} ful 4 [place] reader 00 (four) Medical (FREESTYLE times Branch TEA 14 daily. DAY READER) Check Misc glucose QID as directed flash Yes [id number] 1{appli 1 Unive rs glucose 3-31 cator} Applicator ity of sensor 00:00: 4 (four) [place] (FREESTYLE 00 times Medical TEA 14 daily. 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 Thyroid No AUTOMOTIVE REPAIR TECHNICIAN Thyroid [place] 30 mg 30 mg 30 [...] Vitamin D2 Vitamin D2 No Vitamin D2 [facility] Family Practic e Vitamin D3 Vitamin D3 No Vitamin D3 [facility] 1000 IU 1000 IU 1000 IU Family DAILY DAILY DAILY Practic e Vital Signs Vital Name Observation Time Observation Value Comments Source BP Diastolic 2020-07-10 00:00:00 86 mm[Hg] [facility] Family Practice Height 2020-07-10 00:00:00 62 [in_i] [facility] Family Practice BMI (Body Mass 2020-07-10 00:00:00 33.5 kg/m2 [place] Family Index) Practice BP Systolic 2020-07-10 00:00:00 137 mm[Hg] [facility] Practice Body Weight 2020-07-10 00:00:00 183 [lb_av] [facility] Practice BP Diastolic 2020-02-07 00:00:00 78 mm[Hg] [facility] Height 2020-02-07 00:00:00 62 [in_i] [facility] BMI (Body Mass 2020-02-07 00:00:00 33 kg/m2 [place] Family Index) Practice BP Systolic 2020-02-07 00:00:00 122 mm[Hg] [facility] Practice Body Weight 2020-02-07 00:00:00 180.2 [lb_av] [facility] BP Diastolic 2019-12-24 00:00:00 78 mm[Hg] [facility] Practice Height 2019-12-24 00:00:00 62 [in_i] [facility] Practice BMI (Body Mass 2019-12-24 00:00:00 31.5 kg/m2 [place] Family Index) Practice BP Systolic 2019-12-24 00:00:00 110 mm[Hg] [facility] Practice Body Weight 2019-12-24 00:00:00 172 [...] Facility Department ID 2019-08-23 Inpatient HCAPM KEI [id number] [facility] 16:16:00 [facility] 2019-08-23 Inpatient HCAPM KEI [id number] [facility] 16:12:00 [id number] [facility] 2021-03-02 2021-03-02 [facility] [id number] Univers 13:00:00 13:00:00 DANYA [id number] ity o f [place] [facility] 2021-02-23 2021-02-23 Telephone [facility] [id number] Univers 00:00:00 00:00:00 Danya HAY [id number] ity of [facility] [id number] [place] PROFESS[place] [phone] Nd dical [address] 2021-02-09 2021-02-09 Telephone [facility] [id number] Univers 00:00:00 00:00:00 Danya HAY [id number] ity of [facility] [id number] [place] PROFESS[place] [phone] Nd dical NAL 9 [facility] 2020-09-23 2020-09-23 [facility] [id number] 11:10:57 11:46:21 Visit Benson Hay [id number] [place] [id number] Professio [id number] [address] 2020-07-12 2020-07-12 Outpatient Daniel_T VFP VFP [id number] [id number] [facility] 01:24:00 01:24:00 [id number] Family Practic e 2020-07-12 2020-07-12 Outpatient Daniel_T VFP VFP [id number] [id number] [facility] 01:22:00 01:22:00 [id number] Family Practic e 2020-07-10 2020-07-10 Outpatient Daniel_T VFP VFP [id number] [id number] [facility] 11:45:00 11:45:00 [id number] Family Practic e 2020-07-10 2020-07-10 Samm VFP [place] - [id number] V illage 00:00:00 00:00:00 [facility] Family AlexanderNegar MD: [id number] Tomy nix [facility], [address], [place] [address] , Ph. 2020-04-10 2020-04-10 Outpatient Daniel_T VFP VFP [id number] [id number] [facility] 07:43:00 07:43:00 [id number] Family Practic e 2020-03-14 2020-03-14 Outpatient Daniel_T VFP VFP [id number] [id number] [facility] 03:25:00 03:25:00 [id number] Family Practic e 2020-03-01 2020-03-01 Outpatient Daniel_T VFP VFP [id number] [id number] [facility] 01:02:00 01:02:00 [id number] Family Practic e 2020-02-11 2020-02-11 Outpatient Daniel_T VFP VFP [id number] [id number] [facility] 07:53:00 07:53:00 [id number] Family Practic e 2020-02-11 2020-02-11 Outpatient Daniel_T VFP VFP [id number] [id number] [facility] 07:53:00 07:53:00 [id number] Family Practic e 2020-02-07 2020-02-07 Outpatient Daniel_T VFP VFP [id number] [id number] [facility] 04:53:00 04:53:00 [id number] Family Practic e 2020-02-07 2020-02-07 Samm VFP [place] - [id number] V illage 00:00:00 00:00:00 [facility] Family AlexanderNegar MD: [id number] Laura nix [facility] [address] [address] , Ph. 2019-12-31 2019-12-31 Outpatient Daniel_T VFP VFP [id number] [id number] [facility] 02:04:00 02:04:00 [id number] Family Practic e 2019-12-24 2019-12-24 Outpatient Daniel_T VFP VFP [id number] [id number] [facility] 12:34:00 12:34:00 [id number] Family Practic e 2019-12-24 2019-12-24 Samm VFP [place] - [id number] V illage 00:00:00 00:00:00 [facility] Family Alexander Medical - Pracdonnie sanz MD: [id number] Laura n[address] [facility] [address] [address] , Ph. 2019-12-13 2019-12-13 Outpatient Daniel_T VFP VFP [id number] [id number] [facility] 04:08:00 04:08:00 Family Practic e 2019-12-13 2019-12-13 Outpatient Daniel_T VFP VFP [id number] [id number] [facility] 04:08:00 04:08:00 [id number] Family Practic e 2019-12-03 2019-12-03 Outpatient Daniel_T VFP VFP [id number] [id number] [facility] 03:40:00 03:40:00 [id number] Family Practic e 2019-11-07 2019-11-07 Outpatient Daniel_T VFP VFP [id number] [id number] [facility] 10:47:00 10:47:00 [id number] Family Practic e Results [...] N Completed by Nursing: NONT PRO-BRAIN NATRIURETIC [id number] 18:36:00 Test Item Value Reference Range Interpretation Comments NT PRO-BRAIN NATRIURETIC PEPTI 368 PG/ML 0-100 H (test code = PROBNP) Completed by Nursing: [id number] 18:36:00 Test Item Value Reference Range Interpretation [...] Completed by Nursing: NODRUGS OF ABUSE SCREEN [id number] 18:36:00 Test Item Value Reference Range Interpretation [...] NEGATIVE SCcutoff <300 NG/ML [place]) BASIC METABOLIC [id number] 18:32:00 Test Item Value Reference Range Interpretation [...] N Completed by Nursing: NONT PRO-BRAIN NATRIURETIC [id number] 18:32:00 Test Item Value Reference Range Interpretation Comments NT PRO-BRAIN NATRIURETIC PEPTI (test PG/ML 0-100 code = PROBNP) Completed by Nursing: [id number] 18:32:00 Test Item Value Reference Range Interpretation Comments TROPONIN-I (test code = TROPI) NG/ML 0.000-0.045 Completed by Nursing: NOCBC W/AUTO [id number] 18:20:00 Test Item Value Reference Range Interpretation [...] CRITERIA = MDIFF) - CT HEAD/BRAIN W/O [id number] 17:04:00 Name: MORELIA ROMEO [facility] : 1970 Age/S: 49 / F [id number] [facility] Unit #: [id number] Loc: [place] [address] Phys: Domenica Quinn MD Acct: [id number] Dis Date: Status: PRE ER PHONE #: [phone] Exam Date: 08/23/2019 1631 FAX #: Reason: syncope EXAMS: CPT: [id number] CT HEAD/BRAIN W/O CONT 03984 INDICATIONS: syncope TECHNIQUE: Contiguous axial CT sections were obtained from the skull base to the vertex without intravenous contrast administration. CT DLP dose: 804 mGy centimeters. Iterative dose reduction technique utilized. Location: [id number]: None available. FINDINGS: The brain parenchyma is [...] (1704) [email or web address] Orig Print D/T: S: 08/23/2019 (4806) PAGE 1 Signed Report
--- NOTE | 2021-03-14 19:47 | RAD REPORT ---
EXAM DESCRIPTION: RAD - Chest Single View - 03/14/2021 7:39 pm CLINICAL HISTORY: SOB Chest pain. COMPARISON: Chest Single View dated 03/10/2021; Chest Single View dated 08/25/2020; Chest Single View d ated 08/02/2017; Chest Pa And Lat (2 Views) dated 05/16/2017 FINDINGS: Portable technique limits examination quality. Significant worsening in bilateral pulmonary opacities noted since 03/10/2021. This likely indicates a progressive pulmonary infection. The heart is upper limit normal in size. No displaced fractures.
[2021-03-14 20:11] LABS: Absolute Lymphocytes (CBC) 0.4 K/uL (0.7-4.9); Hematocrit 29.2 % (36.0-45.0); Lymphocytes % 17.1 % (15.3-44.8)
[2021-03-14 20:19] LABS: Protime INR 0.89
[2021-03-14 20:33] LABS: BUN Blood Urea Nitrogen 43 mg/dL (7-18); Bicarbonate 19 mmol/L (21-32); Glucose Level 298 mg/dL (74-106); Potassium 3.7 mmol/L (3.5-5.1); Sodium Level 135 mmol/L (136-145)
[2021-03-14 20:42] LABS: Urine Amorphous Sediment 1+ /HPF (NONE SEEN); Urine Bacteria >50 /HPF (<20); Urine Coarse Granular Casts 0-5 /LPF (NONE SEEN); Urine Mucus 2+ /HPF (NONE SEEN)
[2021-03-14 20:57] LABS: Platelet Estimate ADEQ
[2021-03-14 20:58] LABS: Blood Morphology Comment NOT SEEN (NOT SEEN)
[2021-03-14 21:09] LABS: SARS-COV-2 RT PCR POSITIVE (NEGATIVE)
[2021-03-14 21:19] LABS: ALT/SGPT 22 U/L (12-78); AST/SGOT 32 U/L (15-37); Albumin 1.7 g/dL (3.4-5.0); Alkaline Phosphatase 97 U/L (45-117); Bilirubin Direct < 0.1 mg/dL (0-0.2); Bilirubin Total 0.3 mg/dL (0.2-1.0); Ferritin 994.1 ng/mL (8-388); Lipase 79 U/L (73-393); Protein, Total 6.3 g/dL (6.4-8.2); Troponin (Emerg Dept Use Only) 0.13 ng/mL (0.0-0.045)
[2021-03-14 21:21] LABS: Arterial Blood Carboxyhemoglob 1.9 % (0-1.5); Blood Gas Oxyhemoglobin 84.4 % (94-97); Blood O2 Saturation 87.1 % (92-98.5)
[2021-03-14] MEDS ORDERED: NA CHLORIDE 0.9% 1,000 ML ONE (21:21)
[2021-03-14] MEDS ORDERED: NA CHLORIDE 0.9% 100 ML ONE (21:21)
[2021-03-14] MEDS ORDERED: METHYLPREDNISOLONE 125 MG INJ ONE (21:21)
[2021-03-14] MEDS ORDERED: CEFTRIAXONE 1000 MG/VIAL ONE (21:21)
[2021-03-14] MEDS ORDERED: INSULIN -REGULAR HUMAN 50 UNIT/0.5 ML ML ONE (21:32)
[2021-03-14] MEDS ORDERED: NA CHLORIDE 0.9% 500 ML ONE (21:37)
--- NOTE | 2021-03-14 22:05 | P.HP ---
Certification for Inpatient Patient admitted to: Inpatient With expected LOS: >2 Midnights Patient will require the following post-hospital care: None Practitioner: I am a practitioner with admitting privileges, knowledge of patient current condition, hospital course, and medical plan of care. Services: Services provided to patient in accordance with Admission requirements found in Title 42 Section 412.3 of the Code of Federal Regulations Patient History Date of Service: 03/15/21 Primary Care Provider: Dr. Manley Reason for admission: COVID-19 pneumonia History of Present Illness: 51-year-old female with history of diabetes mellitus type 2, hypertension, hyperlipidemia, hypothyroidism presents emergency department for shortness of breath. Patient reports testing positive for COVID on 03/10/2019 here present for hospital, patient was satting in the mid 80s on room air upon arrival to the emergency department. Labs were significant for sodium 134 bicarb 19 BUN 43 creatinine 1.99 GFR 26 glucose 298 troponin 0.13 C-reactive protein 142 procalcitonin 0.97 White blood cell count 2.4 Red blood cell count 3.3 hemoglobin 9.6 Brunner crit 29.2 COVID positive chest x-ray demonstrates significant worsening of mild bilateral pneumonia pattern urine with greater than 50 bacteria on microscopic analysis. ABG obtained demonstrates pH 7.38 PCO2 29.3 O2 61.5 HCO3 17 with compensated metabolic acidosis also noted to have small serum ketones present. Patient with respiratory failure secondary to COVID-19 pneumonia, mild compensated metabolic acidosis secondary to acute renal failure/early DKA. Given IV fluids, Rocephin, IV steroids in the emergency department ED provider wishes to admit for further evaluation and management Allergies Tramadol HCl Allergy (Uncoded 05/21/19 14:26) Hives/Rash Home Medications: Thyroid,Pork [Thyroid] 30 mg PO DAILY 08/03/17 Aspirin [Jenna Chewable Aspirin] 81 mg PO DAILY 12/28/19 Cholecalciferol (Vitamin D3) [Vitamin D3] 1,000 unit PO DAILY 12/28/19 Insulin Aspart [Novolog Flexpen] See Protocol SQ ACHS 12/28/19 Insulin Degludec [Tresiba Flextouch U-200] 30 unit SQ DAILY 12/28/19 Bumetanide [Bumex] 1 mg PO DAILY #30 tab 12/29/19 - Past Medical/Surgical History Diabetic: Yes -: Diabetes mellitus type II -: Hypothyroid -: Hypertension -: Tubal ligation -: Gallbladder Psychosocial/ Personal History: 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 moist/pink, EOMI, Sclerae nonicteric Neck: Supple, 2+ carotid pulse no bruit, No LAD, Without JVD or thyroid abnormal ity Respiratory: Normal air movement, Diminished Cardiovascular: Regular rate/rhythm, Normal S1 S2 Capillary refill: <2 Seconds Gastrointestinal: Normal bowel sounds, No tenderness Musculoskeletal: No tenderness Integumentary: No rashes Neurological: Normal speech, Normal strength at 5/5 x4 extr, Normal tone, Normal affect - Studies Laboratory Data (last 24 hrs) 03/14/21 19:50: PT 10.2, INR 0.89, APTT 29.3 03/14/21 19:50: WBC 2.40 L, Hgb 9.6 L, Hct 29.2 L, Plt Count 168 03/14/21 19:50: Sodium 135 L, Potassium 3.7, BUN 43 H, Creatinine 1.99 H, Glucose 298 H, Total Bilirubin 0.3, AST 32, ALT 22, Alkaline Phosphatase 97, Lipase 79 Microbiology Data (last 24 hrs): 03/14/21 20:15 Throat Group A Streptococcus Rapid Screen - Final Assessment and Plan - Plan Assessment: Acute hypoxic respiratory failure secondary to bilateral COVID-19 pneumoniaunvaccinated Elevated troponin Diabetes mellitus type 2 with hyperglycemia Acute kidney injury superimposed on CKD 3 Hypertension Hyperlipidemia Plan: Acute hypoxic respiratory failure secondary to bilateral COVID-19 pneumoniaunvaccinated: Supplemental oxygen as needed, currently on 2 L nasal cannula saturating around 94 to 95%. Continue with IV steroids, respiratory therapy consult and placed in urinary saturations, pulmonology consult in place. CRP significantly elevated 142 but patient not with significant oxygen requirement at this time not sure if will qualify for baricitinib. Appreciate further input from pulmonology. Trend CRP, D-dimer level. Elevated troponin: Likely related to above, will trend troponin level if significant rise or patient reports chest pain or other cardiac issues appear we will consult cardiology. Daily aspirin. Diabetes mellitus type 2 with hyperglycemia: Patient with early/borderline DKA giving fluid bolus now as well as insulin in the emergency department blood sugar was 298, anion gap 16, small ketones present and blood ABG with pH of 7.38 PCO2 29.3 HCO3 17 suspect compensated metabolic acidosis secondary to acute renal failure in combination with borderline DKA. We will repeat BMP after IV fluids and insulin likely can go to the floor and will not require insulin drip. Patient likely will require long-acting insulin during hospitalization given use of IV steroids for treatment of COVID. Acute kidney injury superimposed on CKD 3: Continue IV fluids overnight repeat chemistries daily, nephrology consult in place. Baseline GFR appears to be around 40. Hypertension: Obtain and continue medication hold SABINE/ARB given acute kidney injury Hyperlipidemia: Obtain and continue medication DVT PPX: Lovenox Code status: Full Discharge Plan: Home Plan to discharge in: Greater than 2 days - Advance Directives Does patient have a Living Will: No Does patient have a Durable POA for Healthcare: No - Code Status/Comfort Care Code Status Assessed: Yes (Full code) Critical Care: No Time Spent Managing Pts Care (In Minutes): 55
--- NOTE | 2021-03-14 22:11 | ER ---
[facility] Name: Alyson Mayfield Age: 51 yrs Sex: Female : 1970 Arrival Date: 03/14/2021 Time: 19:09 Bed 18 Private MD: Diagnosis: Pneumonia due to SARS-associated coronavirus;Hypoxia Presentation: 03/15 00:45 Chief complaint: Patient states: "I got discharged and I couldn't do it...I have joel Covid...". Coronavirus screen: Not vaccinated. Ebola Screen: Patient negative for fever greater than or equal to 101.5 degrees Fahrenheit, and additional compatible Ebola Virus Disease symptoms Patient denies exposure to infectious person. Patient denies travel to an Ebola-affected area in the 21 days before illness onset. Initial Sepsis Screen: Does the patient meet any 2 criteria? No. Patient's initial sepsis screen is negative. Risk Assessment: Do you want to hurt yourself or someone else? Patient reports no desire to harm self or others. 00:45 Acuity: KLAUS 3 joel 00:45 Method Of Arrival: EMS joel 00:48 Onset of symptoms was March 07, 2021. joel 00:49 Initial Sepsis Screen: Does the patient have a suspected source of infection? No. joel Patient's initial sepsis screen is negative. Historical: - Allergies: 03/14 21:58 Bactrim; joel 21:58 Tramadol HCl; joel - Home Meds: 21:58 [place] Thyroid 30 mg Oral tab daily [Active]; carvedilol 12.5 mg Oral tab 1 tab every joel 12 hours [Active]; Farxiga 5 mg Oral tab 1 tab once daily [Active]; topiramate 25 mg Oral cp24 1 cap once daily [Active]; Tradjenta 5 mg Oral tab 1 tab once daily [Active]; - PMHx: 21:58 CHF; Diabetes - NIDDM; Hypertension; Kidney stones; Thyroid problem; joel - PSHx: 21:58 Cholecystectomy; joel - Immunization history:: No vaccine. - Social history:: Smoking status: Patient denies any tobacco usage or history of. Screenin/09 00:45 Abuse screen: Denies threats or abuse. Denies injuries from another. Nutritional joel screening: No deficits noted. Tuberculosis screening: No symptoms or risk factors identified. Fall Risk None identified. Assessment: 03/14 18:45 General: Appears distressed, Behavior is cooperative. General: I recv'd the pt \\T\\ [id number] joel via EMS. Per their report, the pt was 86% on RA, then she was placed on 4L and "popped up". The pt was here on Tuesday and diagnosed with Covid. She now has Covid pneumonia, hx of DM and CHF. She reports that she did not take her medications at home, as prescribed, when dc'd on Tuesday. . Pain: Denies pain. Neuro: No deficits noted. Cardiovascular: Reports chest pain. Respiratory: Breath sounds are diminished bilaterally. GI: No deficits noted. : No deficits noted. EENT: No deficits noted. Derm: No deficits noted. Musculoskeletal: No deficits noted. 03/15 01:14 General: Report was called to [facility] for room 406. Registration was called to "flip" the joel pt. . Vital Signs: 03/14 18:45 BP 172 / 74; Pulse 85; Resp 20; Temp 98.7; Pulse Ox 100% 2 lpm ; Weight 68.49 kg; joel Height 5 ft. 1 in. (154.94 cm); Pain 0/10; 20:00 BP 106 / 93; Pulse 87; Resp 18; Temp 98.6; Pulse Ox 99% 2 lpm ; Pain 0/10; joel 21:00 BP 144 / 60; Pulse 85; Resp 22; Pulse Ox 99% 2 lpm ; Pain 0/10; joel 22:00 BP 139 / 65; Pulse 84; Resp 20; Temp 98.6; Pulse Ox 95% 2 lpm ; Pain 0/10; joel 23:00 BP 145 / 84; Pulse 83; Resp 22; Temp 98.6; Pulse Ox 96% 3 lpm ; Pain 0/10; joel 03/15 00:00 BP 146 / 64; Pulse 79; Resp 22; Temp 98.6; Pulse Ox 97% 3 lpm ; Pain 0/10; joel 03/14 18:45 Body Mass Index 28.53 (68.49 kg, 154.94 cm) ED Course: 03/14 19:09 Patient arrived in ED. leon 19:12 Avinash Jones NP is PHCP. pm1 19:12 Bam Goode MD is Attending Physician. pm1 19:31 Crystal Castle, RN is Primary Nurse. joel 19:39 CXR XRAY In Process Unspecified. EDMS 21:12 Ketone, Serum Sent. joel 21:13 Urine Culture Sent. joel 21:13 Throat Culture Sent. joel 21:13 Lipase Sent. joel 21:13 Liver (Hepatic) Function Sent. joel 21:13 Ferritin Sent. joel 21:13 C-Reactive Protein Sent. joel 21:14 Blood Culture Sent. joel 21:14 BMP Sent. joel 21:14 Blood Culture Adult (2) Sent. joel 21:14 C-Reactive Protein Sent. joel 21:14 CBC with Diff Sent. joel 21:14 D-Dimer Sent. joel 21:14 Ferritin Sent. joel 21:14 Flu Sent. joel 21:14 LFT's Sent. joel 21:14 Lactate Sent. joel 21:14 Lipase Sent. joel 22:11 Cullen Spaulding MD is Hospitalizing Provider. pm1 01 00:47 Triage completed. joel 00:47 No provider procedures requiring assistance completed. Inserted saline lock: 18 gauge joel in right antecubital area, using aseptic technique. 00:47 Arm band placed on right wrist. joel 00:48 Patient admitted, IV remains in place. joel 00:49 Patient has correct armband on for positive identification. Placed in gown. Bed in low joel position. Call light in reach. Side rails up X 1. media monitor on. Pulse ox on. NIBP on. 01:13 BMP Sent. joel Administered Medications: 03/14 21:30 Drug: Rocephin (cefTRIAXone) 1 grams Route: IV; Rate: calculated rate; Site: right joel antecubital; 03/15 00:51 Follow up: IV Status: Completed infusion; IV Intake: 100ml joel 03/14 21:30 Drug: NS 0.9% 1000 ml Route: IV; Rate: 1000 ml; Site: right antecubital; joel 03/15 00:51 Follow up: IV Status: Completed infusion; IV Intake: 1000ml joel 00:52 Follow up: IV Status: Completed infusion joel 03/14 21:30 Drug: Insulin Regular Human 10 units {Co-Signature: bb (Crystal Palomino RN).} Route: joel Sub-Q; Site: right upper arm; 03/15 00:51 Follow up: Response: No adverse reaction joel 03/14 21:30 Drug: SOLU-Medrol (methylPrednisoLONE) 125 mg Route: IVP; Site: right antecubital; joel 03/15 00:50 Follow up: Response: No adverse reaction joel 03/14 23:00 Drug: NS 0.9% 500 ml Route: IV; Rate: bolus; Site: right antecubital; joel 23:00 Drug: Albuterol - atroVENT (ipratropium) (3:1) (2.5 mg - 0.5 mg) 3 ml Route: Nebulizer; joel 03/15 01:00 Drug: NS 0.9% 1000 ml Route: IV; Rate: 100 ml/hr; Site: right antecubital; joel Intake: 00:51 IV: 1000ml; Total: 1000ml. joel 00:51 IV: 100ml; Total: 1100ml. joel Outcome: 03/14 22:11 Decision to Hospitalize by Provider. pm1 03/15 00:48 Admitted to joel Condition: stable 02:08 Patient left the ED. joel Signatures: Dispatcher [employer] EDMS Avinash Jones, WAYNE NAVIGATION TEACHER pm1 Crystal Castle RN RN bo Au-Stager, Heather, RN RN ha Brenda Ballard RN bb Corrections: (The following items were deleted from the chart) 00:45 03/14 21:00 BP 136 / 69; Pulse 84bpm; Resp 20bpm; Pulse Ox 99% 2 lpm; Pain 0/10; joel joel
--- NOTE | 2021-03-14 22:11 | EDPHYS ---
Physician Documentation [facility] Name: Alyson Mayfield Age: 51 yrs Sex: Female : 1970 Arrival Date: 03/14/2021 Time: 19:09 Bed 18 Private MD: ED Physician Bam Goode HPI: 03/14 19:26 This 51 yrs old Female presents to ER via Unassigned with complaints of pm1 Shortness of breath. 19:26 The patient has shortness of breath at rest. pm1 19:26 Onset: The symptoms/episode began/occurred 3 day(s) ago, covid symptoms onset 1.5 weeks pm1 ago. The patient's shortness of breath is alleviated by nothing, patient not using her inhaler prescription. Associated signs and symptoms: Pertinent positives: non-productive cough, poor PO intake, Pertinent negatives: chest pain. Severity of symptoms: in the emergency department the symptoms are worse. The patient has been recently seen at the [facility] Emergency Department, for similar complaints labs were performed, X-rays were performed, 03/10/2021. patient diagnosed with covid at the time. 19:26 Patient with RA O2 saturation 85-86% on EMS arrival. Improved to 95% with NC 4L. pm1 Historical: - Allergies: 21:58 Bactrim; joel 21:58 Tramadol HCl; joel - Home Meds: 21:58 [place] Thyroid 30 mg Oral tab daily [Active]; carvedilol 12.5 mg Oral tab 1 tab every joel 12 hours [Active]; Farxiga 5 mg Oral tab 1 tab once daily [Active]; topiramate 25 mg Oral cp24 1 cap once daily [Active]; Tradjenta 5 mg Oral tab 1 tab once daily [Active]; - PMHx: 21:58 CHF; Diabetes - NIDDM; Hypertension; Kidney stones; Thyroid problem; joel - PSHx: 21:58 Cholecystectomy; joel - Immunization history:: No vaccine. - Social history:: Smoking status: Patient denies any tobacco usage or history of. ROS: 19:26 Cardiovascular: Negative for chest pain, palpitations, and edema. pm1 19:26 Abdomen/GI: Negative for abdominal pain, nausea, vomiting, diarrhea, and constipation, Back: Negative for injury and pain, MS/Extremity: Negative for injury and deformity, Skin: Negative for injury, rash, and discoloration, Neuro: Negative for headache, weakness, numbness, tingling, and seizure. 19:26 Constitutional: Positive for body aches, fever, poor PO intake. 19:26 Respiratory: Positive for cough, shortness of breath. 19:26 All other systems are negative. Exam: 19:26 Constitutional: This is a well developed, well nourished patient who is awake, alert, pm1 and in no acute distress. Head/Face: Normocephalic, atraumatic. 19:26 Back: No spinal tenderness. No costovertebral tenderness. Full range of motion. Skin: Warm, dry with normal turgor. Normal color with no rashes, no lesions, and no evidence of cellulitis. MS/ Extremity: Pulses equal, no cyanosis. Neurovascular intact. Full, normal range of motion. 19:26 Cardiovascular: Exam negative for Rate: normal, Rhythm: regular, Pulses: no pulse deficits are appreciated. 19:26 Respiratory: the patient does not display signs of respiratory distress, Respirations: no acute changes, Breath sounds: bronchial sounds, that are mild, are heard diffusely. 19:26 Abdomen/GI: Inspection: abdomen appears normal, Palpation: abdomen is soft and non-tender, in all quadrants. 19:26 Neuro: Exam negative for acute changes, Orientation: is normal, Mentation: is normal, Motor: is normal, moves all fours. Vital Signs: 18:45 BP 172 / 74; Pulse 85; Resp 20; Temp 98.7; Pulse Ox 100% 2 lpm ; Weight 68.49 kg; joel Height 5 ft. 1 in. (154.94 cm); Pain 0/10; 20:00 BP 106 / 93; Pulse 87; Resp 18; Temp 98.6; Pulse Ox 99% 2 lpm ; Pain 0/10; joel 21:00 BP 144 / 60; Pulse 85; Resp 22; Pulse Ox 99% 2 lpm ; Pain 0/10; joel 22:00 BP 139 / 65; Pulse 84; Resp 20; Temp 98.6; Pulse Ox 95% 2 lpm ; Pain 0/10; joel 23:00 BP 145 / 84; Pulse 83; Resp 22; Temp 98.6; Pulse Ox 96% 3 lpm ; Pain 0/10; joel 01/09 00:00 BP 146 / 64; Pulse 79; Resp 22; Temp 98.6; Pulse Ox 97% 3 lpm ; Pain 0/10; joel 03/14 18:45 Body Mass Index 28.53 (68.49 kg, 154.94 cm) joel MDM: 03/14 19:16 Patient medically screened. pm1 22:07 Data reviewed: vital signs. pm1 22:10 Counseling: I had a detailed discussion with the patient and/or guardian regarding: the pm1 historical points, exam findings, and any diagnostic results supporting the discharge/admit diagnosis, lab results, radiology results, the need for further work-up and treatment in the hospital. 03/14 19:17 Order name: BMP pm1 03/14 19:17 Order name: Blood Culture Adult (2) pm1 03/14 19:17 Order name: C-Reactive Protein pm1 03/14 19:17 Order name: CBC with Diff pm1 03/14 19:17 Order name: D-Dimer pm1 03/14 19:17 Order name: Ferritin pm1 03/14 19:17 Order name: Flu pm1 03/14 19:17 Order name: LFT's pm1 03/14 19:17 Order name: Lactate pm1 03/14 19:17 Order name: Lipase pm1 03/14 19:17 Order name: PT-INR; Complete Time: 20:30 pm1 03/14 19:17 Order name: Procalcitonin; Complete Time: 21:05 pm1 03/14 19:17 Order name: Ptt, Activated; Complete Time: 20:30 pm1 03/14 19:17 Order name: Strep; Complete Time: 20:55 pm1 03/14 19:17 Order name: Troponin (emerg Dept Use Only); Complete Time: 21:22 pm1 03/14 19:17 Order name: Urine Microscopic Only; Complete Time: 20:55 pm1 03/14 19:18 Order name: Basic Metabolic Panel; Complete Time: 21:22 EDMS 03/14 19:18 Order name: Blood Culture EDMS 03/14 19:18 Order name: C-Reactive Protein; Complete Time: 21:22 EDMS 03/14 19:18 Order name: CBC with Automated Diff; Complete Time: 20:59 EDMS 03/14 19:18 Order name: D-Dimer; Complete Time: 20:30 EDMS 03/14 19:18 Order name: Ferritin; Complete Time: 21:22 EDMS 03/14 19:18 Order name: Liver (Hepatic) Function; Complete Time: 21:22 EDMS 03/14 19:18 Order name: Lactate; Complete Time: 20:30 EDMS 03/14 19:18 Order name: Lipase; Complete Time: 21:22 EDMS 03/14 20:24 Order name: COVID-19/FLU A+B; Complete Time: 21:14 EDMS 03/14 20:43 Order name: Urine Culture EDMS 03/14 20:51 Order name: Throat Culture EDMS 03/14 20:57 Order name: Manual Differential; Complete Time: 20:59 EDMS 03/14 19:17 Order name: CXR XRAY; Complete Time: 19:48 pm1 03/14 19:17 Order name: EKG; Complete Time: 19:18 pm1 03/14 19:17 Order name: Cardiac monitoring; Complete Time: 21:14 pm03/14 19:17 Order name: Droplet/Contact Precautions; Complete Time: 21:14 pm03/14 19:17 Order name: EKG - Nurse/Tech; Complete Time: 21:14 pm1 03/14 19:17 Order name: Alvarez pm03/14 19:17 Order name: IV Start; Complete Time: 21:14 pm03/14 19:17 Order name: Labs collected and sent; Complete Time: 21:15 pm1 03/14 19:17 Order name: O2 Per Protocol; Complete Time: 21:15 pm03/14 19:17 Order name: O2 Sat Monitoring; Complete Time: 21:15 pm03/14 19:17 Order name: Urine Dipstick-Ancillary (obtain specimen); Complete Time: 21:15 pm1 03/14 19:17 Order name: Urine Test (obtain specimen); Complete Time: 21:15 pm03/14 21:06 Order name: ABG; Complete Time: 21:37 pm1 03/14 21:06 Order name: Ketone, Serum; Complete Time: 21:22 pm1 03/14 21:34 Order name: Misc. Order: repeat BMP after 1.5L NS Bolus is complete please; Complete la1 Time: 00:50 03/14 23:28 Order name: BMP la1 03/15 00:30 Order name: Basic Metabolic Panel; Complete Time: 01:01 EDMS Administered Medications: 21:30 Drug: Rocephin (cefTRIAXone) 1 grams Route: IV; Rate: calculated rate; Site: right joel antecubital; 03/15 00:51 Follow up: IV Status: Completed infusion; IV Intake: 100ml joel 03/14 21:30 Drug: NS 0.9% 1000 ml Route: IV; Rate: 1000 ml; Site: right antecubital; joel 03/15 00:51 Follow up: IV Status: Completed infusion; IV Intake: 1000ml joel 00:52 Follow up: IV Status: Completed infusion joel 03/14 21:30 Drug: Insulin Regular Human 10 units {Co-Signature: makayla (Crystal Palomino RN).} Route: joel Sub-Q; Site: right upper arm; 03/15 00:51 Follow up: Response: No adverse reaction joel 03/14 21:30 Drug: SOLU-Medrol (methylPrednisoLONE) 125 mg Route: IVP; Site: right antecubital; joel 03/15 00:50 Follow up: Response: No adverse reaction joel 03/14 23:00 Drug: NS 0.9% 500 ml Route: IV; Rate: bolus; Site: right antecubital; joel 23:00 Drug: Albuterol - atroVENT (ipratropium) (3:1) (2.5 mg - 0.5 mg) 3 ml Route: Nebulizer; joel 03/15 01:00 Drug: NS 0.9% 1000 ml Route: IV; Rate: 100 ml/hr; Site: right antecubital; joel Disposition: 05:33 Co-signature as Attending Physician, Bam Goode MD I agree with the assessment and kdr plan of care. Disposition Summary: 03/14/21 22:11 Hospitalization Ordered Hospitalization Status: Inpatient Admission pm1 Provider: Cullen Spaulding pm1 Location: Telemetry/MedSurg (Inpatient) pm1 Condition: Stable pm1 Problem: new pm1 Symptoms: have improved pm1 Bed/Room Type: Standard pm1 Room Assignment: 406(03/15/21 00:35) Diagnosis - Pneumonia due to SARS-associated coronavirus pm1 - Hypoxia pm1 Forms: - Medication Reconciliation Form pm1 - SBAR form pm1 Signatures: Dispatcher [employer] EDMS Bam Goode MD MD kdr Attema, Lee, SAND DRIER-C SAND DRIER-Miguelina1 Dulce Nieto RN RN cg Avinash Jones, WAYNE BUTTON BREAKER pm1 Crystal Castle RN RN joel Crystal Palomino RN bb Corrections: (The following items were deleted from the chart) 03/14 20:24 19:18 Influenza Screen (A ordered. EDWV EDWV 03/15 00:35 03/14 22:11 pm1
[2021-03-14] MEDS ORDERED: ALBUTEROL 2.5 MG/3 ML NEB SOL ONE (22:58)
[2021-03-14] MEDS ORDERED: IPRATROPIUM BROM 0.5MG/2.5ML ONE (22:58)
[2021-03-15 00:29] LABS: Potassium 3.4 mmol/L (3.5-5.1)
[2021-03-15] MEDS ORDERED: NA CHLORIDE 0.9% 1,000 ML ONE (01:00)
[2021-03-15] MEDS ORDERED: NA CHLORIDE 0.9% 1,000 ML IV SCH (01:57)
[2021-03-15 02:01] VITALS: BMI 27.4
[2021-03-15] MEDS: BENZONATATE 100 MG CAP PO PRN (03:01)
[2021-03-15 04:46] LABS: Absolute Lymphocytes (CBC) 0.3 K/uL (0.7-4.9); Hematocrit 26.2 % (36.0-45.0); Lymphocytes % 15.4 % (15.3-44.8); MPV 9.9 fL (7.6-11.3); RBC Red Blood Cell Count 3.01 M/uL (3.86-4.86)
[2021-03-15 05:44] LABS: Albumin 1.4 g/dL (3.4-5.0); Bilirubin Total 0.2 mg/dL (0.2-1.0); Folic Acid, (Folate) 8.8 ng/mL (3.1-17.5); Magnesium 2.4 mg/dL (1.8-2.4); Potassium 3.5 mmol/L (3.5-5.1); Protein, Total 5.6 g/dL (6.4-8.2); Thyroid Stimulating Hormone 0.422 uIU/mL (0.360-3.740); Troponin I 0.11 ng/mL (0.0-0.045)
--- NOTE | 2021-03-15 06:07 | P.PN ---
Date of Service: 03/15/21 Subjective: no significant change since admission. shortness of breath stable Denies any new pains, no new symptoms or complaints this morning ROS: 10 point ROS as noted above, otherwise negative Physical exam GEN: Alert, oriented, appears fatigued HEENT: Normal conjunctiva, sclera anicteric CV: Regular rate and rhythm, no edema Pulm: Nonlabored respirations on 6L NC ABD: Soft, nontender, nondistended Integumentary: No rashes Neuro: Normal speech, normal affect Problem List Acute hypoxic respiratory failure secondary to bilateral COVID-19 pneumoniaunvaccinated Elevated troponin Diabetes mellitus type 2 with hyperglycemia Acute kidney injury superimposed on CKD 3 Hypertension Hyperlipidemia Acute hypoxic respiratory failure secondary to bilateral COVID-19 pneumoniaunvaccinated: Continue with steroids, oxygen supplementation as needed Pulmonology consulted Inflammatory markers significantly elevated Elevated troponin: Likely secondary to COVID-19 pneumonia, Ekg without ischemic changes Diabetes mellitus type 2 with hyperglycemia: worsened by steroid use start long acting insulin, sliding scale IVF UMM superimposed on CKD 3: continue IVF nephrology consulted Baseline GFR ~40 Hypertension HLD hold SABINE/ARB given acute kidney injury confirm/continue appropriate other chronic home medications VTE: lovenox Code: full Dispo: home in ~1-2 days Time Spent Managing Pts Care (In Minutes): 35
[2021-03-15] MEDS ORDERED: Levofloxacin500mg IV 500 MG/100 ML BAG IV SCH (07:00)
[2021-03-15] MEDS: VITAMIN D 1000 UNIT TAB PO SCH (08:36)
[2021-03-15] MEDS: ASPIRIN EC 81 MG TAB PO SCH (08:36)
[2021-03-15] MEDS: ENOXAPARIN 30 MG/0.3 ML SQ SCH (08:36)
[2021-03-15] MEDS: INSULIN -REGULAR HUMAN 50 UNIT/0.5 ML ML SQ SCH ×4 (08:37→21:21)
[2021-03-15] MEDS ORDERED: METHYLPREDNISOLONE 40 MG INJ IV SCH (09:00)
--- NOTE | 2021-03-15 11:16 | P.CNS ---
Date of Consult: 03/15/21 Reason for Consult: Respiratory failure from coronavirus Primary Care Provider: Dr. Manley Chief Complaint: COVID-19 pneumonia History of Present Illness: Patient is 51 years of age metabolic syndrome presented to the emergency room with coronavirus pneumonia hypoxemia chest x-ray consistent with coronavirus pneumonia still continues to remain very hypoxic Allergies sulfamethoxazole [From Bactrim] Allergy (Verified 03/15/21 02:02) facial swelling trimethoprim [From Bactrim] Allergy (Verified 03/15/21 02:02) facial swelling Tramadol HCl Allergy (Uncoded 05/21/19 14:26) Hives/Rash - Past Medical/Surgical History Diabetic: Yes -: Diabetes mellitus type II -: Hypothyroid -: Hypertension -: CHF -: Tubal ligation -: Gallbladder Psychosocial/ Personal History: 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, 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 - Family History Father Medical History: Hypertension, Diabetes, Cancer Mother Medical History: Diabetes, Cancer - Social History Alcohol use: Yes CD- Drugs: No Caffeine use: Yes Place of Residence: Home Review of Systems General: Weakness Respiratory: Shortness of Breath Physical Examination Temp Pulse Resp BP Pulse Ox 98.9 F 75 21 H 130/59 L 93 03/15/21 08:00 03/15/21 08:00 03/15/21 08:00 03/15/21 08:00 03/15/21 08:00 General: Alert, Cooperative, Mild distress Respiratory: Diminished Laboratory Data (last 24 hrs) 03/14/21 19:50: PT 10.2, INR 0.89, APTT 29.3 03/14/21 19:50: WBC 2.40 L, Hgb 9.6 L, Hct 29.2 L, Plt Count 168 03/14/21 19:50: Sodium 135 L, Potassium 3.7, BUN 43 H, Creatinine 1.99 H, Glucose 298 H, Total Bilirubin 0.3, AST 32, ALT 22, Alkaline Phosphatase 97, Lipase 79 - Problems (1) Acute respiratory failure due to COVID-19 Current Visit: Yes Status: Acute Plan: Patient is 51 years of age admitted with coronavirus pneumonia oxygenation stable she is currently on 6 L nasal cannula oxygen saturations satisfactory continue to titrate O2 down chronic renal failure low white count reduced dose of Solu-Medrol DC IV fluids for now no change in her creatinine since patient has been on IV fluids review antibiotics pending cultures
--- NOTE | 2021-03-15 13:22 | CON ---
Date of Consultation: 03/15/2021 Reason For Consult: Acute renal failure. History Of Present Illness: Ms. Diaz is a 51-year-old female with past medical history significan t for history of type 2 diabetes, hypertension, history of chronic heart failure, who presented to [facility] emergency department for evaluation of shortness of breath. The patient reported testing positive for COVID on the 10 of March. She presented to the hospital because of worsening hypoxia and shor tness of breath. In the emergency room, labs were significant for creatinine of 1.99, and hence, she has been admitted to the hospital for further management of her COVID-19 pneumonia as well as acute renal failure and metabolic abnormalities. The patient states that she feels about the same. She co ntinues to have shortness of breath. She remains on nasal cannula oxygen at this time. She has been given some IV fluids, Rocephin, and steroids in the emergency department. Past Medical History: Significant for history of type 2 diabetes, hypothyroidism, hypertension, tuba l ligation, history of cholecystectomy. The patient has history of chronic congestive heart failure, and she is being followed by Dr. Singh at [facility] for her cardiac problems. Family History: Significant for history of hypertension and diabetes and cancer in the father. Social History: She has no history of smoking, alcohol, or drug use. Review of Systems: Positive for shortness of breath, weakness, malaise, cough, dysuria. Denies any chest pain. Denies any abdominal pain. Denies any nausea or vomiting, but does have has had poor p.o. intake for severa l days prior to admission. All other review of systems are negative. Physical Examination: Vital signs: At this time are showing temperature of 98.9, pulse rate of 75, respiratory rate of 21, and blood pressure of 130/59. She is saturating 96% on 6 L of nasal cannula. General: She appears in no acute distress. HEENT: Shows atraumatic head. Lungs: Auscultation of lungs revealed bilateral equal air entry with diminished breath sounds overal l. Abdomen: Soft and nontender. Heart: Auscultation of the heart reveals regular rate and rhythm. Extremities: Showed no evidence of edema. Laboratory Data: Showing sodium of 137; potassium of 3.5; chloride of 107; bicarb of 21; BUN of 42; with creatinine of 1.8, improving from 1.9 at the time of admission. Inflammatory markers are elevat ed, including her ferritin. C-reactive protein and troponin were also slightly elevated. LFTs are s howing albumin of 1.4. AST and ALT within normal limits. CBC showing WBC count of 2.3, hemoglobin o f 8.7, hematocrit 26.2, and platelet count of 149. Urinalysis showing evidence of UTI and urine cult ure is currently pending. COVID-19 PCR test was positive. Current Medications: Tylenol p.r.n. for pain, baby aspirin a day, atorvastatin, benzonatate p.r.n. f or cough, Lovenox for DVT prophylaxis, Levaquin 500 mg every 48 hours, Solu-Medrol 40 mg b.i.d. and Z ofran p.r.n. for nausea. She is currently not getting any IV fluids. Impression: 1.[id number] renal insufficiency, likely secondary to ongoing ATN from combination of COVID pn eumonia as well as decreased p.o. intake leading to some ATN. The patient will benefit from gentle I V hydration at this time. We will go ahead and order some normal saline at 50 cc an hour with cautio us monitoring of volume status. 2.COVID-19 pneumonia. The patient is being monitored and treated with antibiotics as well as with s teroids. 3.Type 2 diabetes. Monitor blood sugars closely and start insulin if blood sugars start to spike. 4.Hypertension, currently not on any blood pressure medicines at this time. We will monitor blood p ressures closely and restart medications if blood pressure consistently seemed to be elevated. 5.Urinary tract infection. The patient is getting Levaquin at this time, which should cover for the urinary tract infection. She may need a Rocephin if urine cultures come back positive. Plan: Overall patient's renal function is slightly better today. She does have some [id number] c renal insufficiency. Start gentle hydration. Monitor volume status closely. Monitor blood sugars closely and follow up. VV/MODL Voice ID: [id number] Report ID: [id number]
[2021-03-15] MEDS ORDERED: VANCOMYCIN 1.5 GM in NA CHLORIDE 0.9% 500 ML IVPB SCH (14:00)
[2021-03-15] MEDS ORDERED: VANCOMYCIN 1.75 GM in NA CHLORIDE 0.9% 500 ML IVPB SCH (14:00)
[2021-03-15] MEDS: NA CHLORIDE 0.9% 1,000 ML IV SCH (14:32)
[2021-03-15] MEDS: ATORVASTATIN 40 MG TAB PO SCH (21:20)
[2021-03-15] MEDS: METHYLPREDNISOLONE 40 MG INJ IV SCH (21:21)
[2021-03-16] MEDS: FAMOTIDINE 20 MG/2 ML VIAL IV PRN (03:32)
[2021-03-16 04:05] LABS: Absolute Lymphocytes (CBC) 0.5 K/uL (0.7-4.9); Hematocrit 29.6 % (36.0-45.0); Lymphocytes % 9.3 % (15.3-44.8); MPV 9.6 fL (7.6-11.3); RBC Red Blood Cell Count 3.43 M/uL (3.86-4.86)
[2021-03-16 04:28] LABS: Albumin 1.3 g/dL (3.4-5.0); Bilirubin Total 0.3 mg/dL (0.2-1.0); C-Reactive Protein 69.6 mg/L (<3.00); Magnesium 2.7 mg/dL (1.8-2.4); Potassium 3.5 mmol/L (3.5-5.1); Protein, Total 5.7 g/dL (6.4-8.2)
--- NOTE | 2021-03-16 06:24 | P.PN ---
Date of Service: 03/16/21 Subjective: Feeling better this morning. Down to 4-5 L nasal cannula. Inflammatory markers improving No new symptoms/complaints Continues to feel very tired/weak ROS: 10 point ROS as noted above, otherwise negative Physical exam GEN: Alert, oriented, appears fatigued HEENT: Normal conjunctiva, sclera anicteric CV: Regular rate and rhythm, no edema Pulm: Nonlabored respirations on 5L NC ABD: Soft, nontender, nondistended Integumentary: No rashes Neuro: Normal speech, normal affect Problem List Acute hypoxic respiratory failure secondary to bilateral COVID-19 pneumoniaunvaccinated Bacteremia Possible UTI Elevated troponin Diabetes mellitus type 2 with hyperglycemia Acute kidney injury superimposed on CKD 3 Hypertension Hyperlipidemia Migraines Acute hypoxic respiratory failure secondary to bilateral COVID-19 pneumoniaunvaccinated: Bacteremia Possible UTI Continue with steroids, oxygen supplementation as needed Pulmonology consulted Inflammatory markers significantly elevated, improved Blood cultures with Gram stain positive, suspect contamination, patient without any skin lesions Empirically started vancomycin on 03/15. ID consulted Patient will get specific symptoms, UA suggestive possible UTI, empirically started on Levaquin on Elevated troponin: Likely secondary to COVID-19 pneumonia, Ekg without ischemic changes Diabetes mellitus type 2 with hyperglycemia: worsened by steroid use start long acting insulin, sliding scale UMM superimposed on CKD 3: continue IVF nephrology consulted Baseline GFR ~40 Hypertension HLD Migraines hold SABINE/ARB given acute kidney injury confirm/continue appropriate other chronic home medications VTE: lovenox Code: full Dispo: home in ~1-2 days Time Spent Managing Pts Care (In Minutes): 35
[2021-03-16] MEDS: ENOXAPARIN 30 MG/0.3 ML SQ SCH (08:53)
[2021-03-16] MEDS: ASPIRIN EC 81 MG TAB PO SCH (08:53)
[2021-03-16] MEDS: BENZONATATE 100 MG CAP PO PRN ×2 (08:53→21:38)
[2021-03-16] MEDS: VITAMIN D 1000 UNIT TAB PO SCH (08:53)
[2021-03-16] MEDS: METHYLPREDNISOLONE 40 MG INJ IV SCH ×2 (08:54→21:25)
[2021-03-16] MEDS: INSULIN -REGULAR HUMAN 50 UNIT/0.5 ML ML SQ SCH ×4 (08:58→21:24)
[2021-03-16] MEDS: NA CHLORIDE 0.9% 1,000 ML IV SCH ×2 (09:00→17:15)
--- NOTE | 2021-03-16 12:23 | P.CNS ---
Date of Consult: 03/16/21 Primary Care Provider: Dr. Manley Chief Complaint: COVID-19 pneumonia History of Present Illness: The patient is a 51 year old female with a PM of DM, HTN, HLD, hypothyroidism whpo presented to the ED secondary to SOB. Patient tested positive for COVID 19 on 03/10/2021. She is unvaccinated. Blood cultures obtained on 03/14 grew Cons in both aerobic bottles, repeat pending. Patient empirically placed on vancomycin and levaquin. Vitals stable, she is afebrile. No white count. She currently denies N/V/D, SOB, or chest pain. Allergies sulfamethoxazole [From Bactrim] Allergy (Verified 03/15/21 02:02) facial swelling trimethoprim [From Bactrim] Allergy (Verified 03/15/21 02:02) facial swelling Tramadol HCl Allergy (Uncoded 05/21/19 14:26) Hives/Rash Home Medications: Albuterol Sulfate [Albuterol Sulfate Hfa] 8.52 puff PO Q6H 03/15/21 Amlodipine Bes/Olmesartan Med [Amlodipine-Olmesartan 10-20 mg] 5 - 20 mg PO DAILY 03/15/21 Aspirin [Aspirin EC 81 MG] 81 mg PO DAILY 03/15/21 Carvedilol [Coreg] 12.5 mg PO BID 03/15/21 Carvedilol [Coreg] 12.5 mg PO BID 03/15/21 Clonidine [Catapres-Tts 1] 0.1 mg .ROUTE SEECOM 03/15/21 Dapagliflozin Propanediol [Farxiga] 5 mg PO DAILY 03/15/21 Linagliptin [Tradjenta] 5 mg PO DAILY 03/15/21 Rosuvastatin Calcium [Crestor] 10 mg PO DAILY 03/15/21 Rosuvastatin [Crestor*] 10 mg PO DAILY 03/15/21 Spironolactone [Aldactone*] 25 mg PO DAILY 03/15/21 Thyroid,Pork [[place] Thyroid] 15 mg PO DAILY 03/15/21 Topiramate [Topamax] 25 mg PO BID 03/15/21 - Past Medical/Surgical History Diabetic: Yes -: Diabetes mellitus type II -: Hypothyroid -: Hypertension -: CHF -: Tubal ligation -: Gallbladder Psychosocial/ Personal History: 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, 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 - Family History Father Medical History: Hypertension, Diabetes, Cancer Mother Medical History: Diabetes, Cancer - Social History Alcohol use: Yes CD- Drugs: No Caffeine use: Yes Place of Residence: Home Review of Systems 10-point ROS is otherwise unremarkable Physical Examination Temp Pulse Resp BP Pulse Ox 98.9 F 76 16 159/74 H 92 03/16/21 08:00 03/16/21 08:00 03/16/21 08:00 03/16/21 08:00 03/16/21 08:00 General: Alert, In no apparent distress HEENT: Atraumatic, Normocephalic Neck: Supple Respiratory: Other (diminshed ) Cardiovascular: No edema, Regular rate/rhythm Gastrointestinal: Normal bowel sounds, Soft and benign Conclusions/Impression: Antibiotics vancomycin start: 03/15 levaquin start: 03/15 Assessment/Plan Possible Bacteremia BC obtained on 03/14 grew CONs in both aerobic bottles. Repeat pending. Likely contamination--recommend DC vancomycin if repeat cultures are negative. Possible UTI UC chowed mixed christoph, patient asymptomatic,. Recommend DC levaquin. COVID 19 On supplemental O2. Continue steroid therapy. Pulm following. Anemia continue to monitor H&H DM Hypothyroidism HTN HLD -medical management per primary team Plan of care discussed with Dr. Loaiza Thank you for consultation.
[2021-03-16] MEDS: ACETAMINOPHEN 500 MG TAB PO PRN (15:22)
[2021-03-16] MEDS: carvediloL 12.5 MG TAB PO SCH (21:25)
[2021-03-16] MEDS: ATORVASTATIN 40 MG TAB PO SCH (21:25)
[2021-03-16] MEDS: TOPIRAMATE 25 MG TAB PO SCH (21:26)
--- NOTE | 2021-03-16 21:38 | P.PN ---
Date of Service: 03/16/21 Vital Signs Temp Pulse Resp BP Pulse Ox 97.7 F 77 19 155/76 H 92 03/16/21 20:00 03/16/21 21:25 03/16/21 20:00 03/16/21 21:25 03/16/21 20:00 Medications Acetaminophen (Acetaminophen 500 Mg Tab) 500 mg PO Q4HP PRN PRN Reason: TEMP > 100' F Last Admin: 03/16/21 15:22 Dose: 500 mg Documented by: Aspirin (Aspirin Ec 81 Mg Tab) 81 mg PO DAILY [facility] Last Admin: 03/16/21 08:53 Dose: 81 mg Documented by: Atorvastatin Calcium (Atorvastatin 40 Mg Tab) 40 mg PO BEDTIME [facility] Last Admin: 03/16/21 21:25 Dose: 40 mg Documented by: Benzonatate (Benzonatate 100 Mg Cap) 100 mg PO TID PRN PRN Reason: COUGH Last Admin: 03/16/21 08:53 Dose: 100 mg Documented by: Carvedilol (Carvedilol 12.5 Mg Tab) 12.5 mg PO BID [facility] Last Admin: 03/16/21 21:25 Dose: 12.5 mg Documented by: Cholecalciferol (Vitamin D 1000 Unit Tab) 4,000 unit PO DAILY [facility] Last Admin: 03/16/21 08:53 Dose: 4,000 unit Documented by: Enoxaparin Sodium (Enoxaparin 30 Mg/0.3 Ml) 30 mg SQ DAILY [facility] Last Admin: 03/16/21 08:53 Dose: 30 mg Documented by: Famotidine (Famotidine 20 Mg/2 Ml Vial) 20 mg IV BIDP PRN; Protocol PRN Reason: INDIGESTION Last Admin: 03/16/21 03:32 Dose: 20 mg Documented by: Sodium Chloride (Ns 1000 Ml Ivbag) 1,000 mls @ 50 mls/hr IV .Q20H [facility] Last Admin: 03/16/21 17:15 Dose: 1,000 mls Documented by: Vancomycin HCl 1.25 gm/ Sodium (Chloride) 250 mls @ 125 mls/hr IVPB Q36H [facility] Insulin Human Regular (Insulin -Regular Human 50 Unit/0.5 Ml Ml) 0 unit SQ ACHS [facility]; Protocol Last Admin: 03/16/21 21:24 Dose: 3 unit Documented by: Melatonin (Melatonin 5 Mg Tablet) 5 mg PO BEDTIME PRN PRN PRN Reason: INSOMNIA Methylprednisolone Sodium Succinate (Methylprednisolone 40 Mg Inj) 40 mg IV BID [facility] Last Admin: 03/16/21 21:25 Dose: 40 mg Documented by: Ondansetron HCl (Ondansetron 4 Mg/2 Ml Vial) 4 mg IV Q6HP PRN PRN Reason: NAUSEA / VOMITING Rosuvastatin Calcium (Rosuvastatin 10 Mg Tab) 10 mg PO DAILY [facility] Sodium Chloride (Flush Normal Saline 10 Ml) 10 ml IV BID [facility] Last Admin: 03/16/21 21:00 Dose: 10 ml Documented by: Thyroid (Thyroid 30 Mg Tab) 15 mg PO DAILY@0600 [facility] Thyroid (Thyroid 30 Mg Tab) 15 mg PO DAILY@0600 [facility] Topiramate (Topiramate 25 Mg Tab) 25 mg PO BID [facility] Last Admin: 03/16/21 21:26 Dose: 25 mg Documented by: Microbiology Results 03/14/21 19:50 Blood - Blood Aerobic Blood Culture - Preliminary 03/14/21 19:50 Blood - Blood Blood Culture Gram Stain - Final 03/14/21 19:50 Blood - Blood Anaerobic Blood Culture - Preliminary 03/14/21 19:50 Blood - Blood Gram Stain - Final 03/14/21 20:15 Throat Culture & Sensitivity - Preliminary NORMAL UPPER RESPIRATORY ALBINO GROWN. 03/14/21 20:00 Clean Catch Urine [place] Count - Preliminary >100,000 CFU/ML. 03/14/21 20:00 Clean Catch Urine - Preliminary MIXED ALBINO. 03/14/21 19:25 Blood - Blood Aerobic Blood Culture - Preliminary 03/14/21 19:25 Blood - Blood Blood Culture Gram Stain - Final 03/14/21 19:25 Blood - Blood Anaerobic Blood Culture - Preliminary No growth in 24 hours. 03/14/21 20:15 Throat Group A Streptococcus Rapid Screen - Final Assessment/ Plan: Nephrology No dyspnea No chest pain Weakness and malaise. Anorexia. +BM No acute events overnight Vitals, medications, blood work and imaging reviewed in the chart NAD. NCAT. MMM. Neck supple. Normal respiratory effort. RRR. ND Abd. No C/C/E. No rash. AAO. Normal speech. A/P Continue the current POC and Medications other than the changes listed below. AM labs as ordered. Daily weight. UMM in the setting of hypovolemia CKD III -No NSAIDs -Continue gentle IVF Hypokalemia -Replete potassium prn -Encourage nutrition Acidosis -Consider oral bicarb HTN with CKD -Continue Coreg DM II with CKD -RISS Severe Malnutrition Hypoalbuminemia -Recommend protein supplementation -Encourage nutrition Anemia in chronic illness Iron deficiency 10% -Monitor H&H -Consider IV iron Acute COVID-19 PNA Acute hypoxic respiratory failure -Continue steroids
[2021-03-17] MEDS: ACETAMINOPHEN 500 MG TAB PO PRN ×3 (01:55→21:10)
[2021-03-17] MEDS: ONDANSETRON 4 MG/2 ML VIAL IV PRN (01:55)
[2021-03-17] MEDS ORDERED: VANCOMYCIN 1.25 GM in NA CHLORIDE 0.9% 250 ML IVPB SCH (02:00)
[2021-03-17] MEDS: NA CHLORIDE 0.9% 1,000 ML IV SCH (05:00)
[2021-03-17] MEDS: THYROID 30 MG TAB PO SCH ×2 (06:00→06:58)
[2021-03-17 06:18] LABS: Absolute Lymphocytes (CBC) 0.3 K/uL (0.7-4.9); Hematocrit 28.3 % (36.0-45.0); Lymphocytes % 4.3 % (15.3-44.8); MPV 9.5 fL (7.6-11.3); RBC Red Blood Cell Count 3.24 M/uL (3.86-4.86)
[2021-03-17 06:44] LABS: Albumin 1.3 g/dL (3.4-5.0); Bilirubin Total 0.3 mg/dL (0.2-1.0); C-Reactive Protein 37.2 mg/L (<3.00); Magnesium 2.9 mg/dL (1.8-2.4); Potassium 3.3 mmol/L (3.5-5.1); Protein, Total 5.3 g/dL (6.4-8.2)
[2021-03-17] MEDS: ROSUVASTATIN 10 MG TAB PO SCH (08:25)
[2021-03-17] MEDS: TOPIRAMATE 25 MG TAB PO SCH ×2 (08:25→21:11)
[2021-03-17] MEDS: ENOXAPARIN 30 MG/0.3 ML SQ SCH (08:25)
[2021-03-17] MEDS: VITAMIN D 1000 UNIT TAB PO SCH (08:25)
[2021-03-17] MEDS: carvediloL 12.5 MG TAB PO SCH ×2 (08:26→21:11)
[2021-03-17] MEDS: INSULIN -REGULAR HUMAN 50 UNIT/0.5 ML ML SQ SCH ×4 (08:26→21:11)
[2021-03-17] MEDS: ASPIRIN EC 81 MG TAB PO SCH (08:26)
[2021-03-17] MEDS: METHYLPREDNISOLONE 40 MG INJ IV SCH ×2 (08:27→21:12)
[2021-03-17 08:54] LABS: Blood Morphology Comment NOT SEEN (NOT SEEN); Platelet Estimate ADEQ; White Blood Cell Scan OK (OK)
--- NOTE | 2021-03-17 11:24 | P.PN ---
Subjective Date of Service: 03/17/21 Primary Care Provider: Dr. Manley Chief Complaint: COVID-19 pneumonia Physical Examination - Vital Signs Temperature: 97.8 F Blood Pressure: 127/60 Pulse: 72 Respirations: 19 Pulse Ox (%): 92 - Studies Microbiology Data (last 24 hrs): 03/14/21 20:15 Throat Culture & Sensitivity - Final NORMAL UPPER RESPIRATORY CHRISTOPH GROWN. 03/14/21 20:00 Clean Catch Urine [place] Count - Final >100,000 CFU/ML. 03/14/21 20:00 Clean Catch Urine - Final MIXED CHRISTOPH. 03/14/21 19:50 Blood - Blood Blood Culture Gram Stain - Final 03/14/21 19:50 Blood - Blood Gram Stain - Final 03/14/21 19:25 Blood - Blood Blood Culture Gram Stain - Final Assessment And Plan - Plan Physical Exam: General: Alert, In no apparent distress HEENT: Atraumatic, Normocephalic Neck: Supple Respiratory: Other (diminshed ) Cardiovascular: No edema, Regular rate/rhythm Gastrointestinal: Normal bowel sounds, Soft and benign Conclusions/Impression: Antibiotics vancomycin start: 03/15 levaquin start: 03/15 stop: 03/16 Assessment/Plan Possible Bacteremia BC obtained on 03/14 grew CONs in both aerobic bottles. Repeat pending. Likely contamination--recommend DC vancomycin if repeat cultures are negative. Vancomcyin trough goal of 12-17. Vanco trough obtained on 03/17 below therapeutic range-dose adjusted via pharmacy. Possible UTI UC chowed mixed christoph, patient asymptomatic, levaquin DC on 03/16. COVID 19 On supplemental O2. Continue steroid therapy. Pulm following. Anemia continue to monitor H&H DM CKD stage 3 Hypothyroidism HTN HLD -medical management per primary team Plan of care discussed with Dr. Loaiza Thank you for consultation.
--- NOTE | 2021-03-17 12:41 | P.PN ---
Subjective Date of Service: 03/17/21 Primary Care Provider: Dr. Manley Chief Complaint: COVID-19 pneumonia Condition stable still requiring oxygen desaturation on mild exertion Review of Systems General: Weakness Respiratory: Shortness of Breath Physical Examination - Vital Signs Temperature: 97.7 F Blood Pressure: 137/64 Pulse: 77 Respirations: 20 Pulse Ox (%): 90 - Physical Exam General: Alert, Cooperative - Studies Microbiology Data (last 24 hrs): 03/14/21 20:15 Throat Culture & Sensitivity - Final NORMAL UPPER RESPIRATORY ALBINO GROWN. 03/14/21 20:00 Clean Catch Urine [place] Count - Final >100,000 CFU/ML. 03/14/21 20:00 Clean Catch Urine - Final MIXED ALBINO. 03/14/21 19:50 Blood - Blood Blood Culture Gram Stain - Final 03/14/21 19:50 Blood - Blood Gram Stain - Final 03/14/21 19:25 Blood - Blood Blood Culture Gram Stain - Final Assessment & Plan - Problems (Diagnosis) (1) Acute respiratory failure due to COVID-19 Current Visit: Yes Status: Acute Plan: Patient is 51 years of age admitted with severe coronavirus pneumonia still requiring about 6 L of nasal cannula oxygen desaturation on minimal exertion most likely the blood cultures are contaminant vancomycin has been DC'd hopefully can titrate down or sat to 4 L with plan for discharge oxygen has been arranged
--- NOTE | 2021-03-17 14:41 | PN ---
Date of Progress Note: 03/17/2021 Subjective: The patient was admitted with COVID pneumonia, respiratory failure. The patient is requiring FiO2. Today, the patient still has some shortness of breath. Physical Examination: Vital Signs: When I saw the patient; blood pressure of 137/64, pulse of 77, afebrile. The patient had good urine output of 400. Chest: Crackles bilateral. Heart: S1, S2. Systolic murmur. Abdomen: Soft, nontender. Extremities: Trace edema. Neuro: Alert. No focality. Laboratory Data: WBC 6.3, H and H 9.3/28.3. Sodium 142, potassium 3.3, bicarb 20, BUN 49, creatinine 1.5, GFR of 35. Reviewing the record for the patient, baseline creatinine usually around 1.4. Reviewing the record from the office, the patient had acute kidney injury secondary to over-diuresis before. Current Medications: The patient on include Lovenox, aspirin, atorvastatin, carvedilol, rosuvastatin, Topamax, Pepcid, Solu-Medrol, [place] Thyroid, normal saline at 50 per hour. Assessment And Plan: 1. Acute kidney injury secondary to prerenal/COVID nephropathy, back close to baseline looks to me. I am going to discontinue IV fluid. We will monitor the patient. 2. Hypokalemia. We will supplement. 3. Hypertension, controlled, optimal. We will continue current treatment. I am going to resume the patient back on Aldactone. 4. Congestive heart failure. Currently, the patient close to normal volume. Discontinue IV fluids. 5. Respiratory failure, multifactorial secondary to over volume/COVID pneumonia. Follow up with Pulmonary. Resume Aldactone. Discontinue IV fluid and we will follow up. time spend exam the patient face to face , reviewing the data lab and radiology , placing order , discussing the case with the presentation team member including nursing staff and discussing with the hospitalist 35 min [place] Voice ID: [id number] Report ID: [id number]
--- NOTE | 2021-03-17 15:37 | RAD REPORT ---
EXAM DESCRIPTION: RAD - Chest Single View - 03/17/2021 3:25 pm CLINICAL HISTORY: COPD, COVID positive COMPARISON: March 14 TECHNIQUE: AP portable chest image was obtained 03/17/2021 3:25 pm . FINDINGS: Lung volumes are low. Extensive interstitial and airspace opacities remain throughout both lung weiner. There has been improvement in the left base. Remaining lung weiner are not clearly diff erent. Trachea midline. Heart and vasculature are normal. No measurable pleural effusion and no pneumothorax . No acute bony abnormality seen. No acute aortic findings suspected. IMPRESSION: Significant bilateral COVID-19 pneumonia findings are seen throughout the lung weiner. T here is improvement in the left base.
--- NOTE | 2021-03-17 17:31 | P.PN ---
Subjective Date of Service: 03/17/21 Primary Care Provider: Dr. Manley Chief Complaint: COVID-19 pneumonia Patient has no new complaint. She was requiring more oxygen this morning, Up to 10 L by nasal cannula. Physical Examination - Vital Signs Temperature: 97.4 F Blood Pressure: 140/64 Pulse: 72 Respirations: 18 Pulse Ox (%): 91 - Studies Microbiology Data (last 24 hrs): 03/14/21 20:15 Throat Culture & Sensitivity - Final NORMAL UPPER RESPIRATORY ALBINO GROWN. 03/14/21 20:00 Clean Catch Urine [place] Count - Final >100,000 CFU/ML. 03/14/21 20:00 Clean Catch Urine - Final MIXED ALBINO. Assessment And Plan - Plan Acute hypoxic respiratory failure secondary to bilateral COVID-19 pneumoniaunvaccinated Bacteremia Possible UTI Elevated troponin Diabetes mellitus type 2 with hyperglycemia Acute kidney injury superimposed on CKD 3 Hypertension Hyperlipidemia Migraines Acute hypoxic respiratory failure secondary to bilateral COVID-19 pneumoniaunvaccinated: Bacteremia UTI Continue with steroids, titrate oxygen Pulmonology is following. Inflammatory markers significantly elevated, improved Blood cultures with Gram stain positive, suspect contamination, patient without any skin lesions. Repeat blood culture: No growth to date. Empirically started vancomycin on 03/15. ID consulted Patient will get specific symptoms, UA suggestive possible UTI. Urine culture: Mixed growth. Patient briefly treated with Levaquin. Elevated troponin: Likely secondary to COVID-19 pneumonia. Ekg without ischemic changes. Troponin trended flat. Patient is asymptomatic. Diabetes mellitus type 2 with hyperglycemia: worsened by steroid use Continue long acting insulin and sliding scale UMM superimposed on CKD 3: UMM is improving continue IVF nephrology is following Baseline GFR ~40 Hypertension HLD Migraines SABINE/ARB on hold given acute kidney injury DVT prophylaxis: Lovenox
[2021-03-17] MEDS: ATORVASTATIN 40 MG TAB PO SCH (21:11)
[2021-03-17] MEDS: BENZONATATE 100 MG CAP PO PRN (21:12)
[2021-03-18] MEDS: ACETAMINOPHEN 500 MG TAB PO PRN ×2 (01:43→08:32)
[2021-03-18] MEDS ORDERED: VANCOMYCIN 1.25 GM in NA CHLORIDE 0.9% 250 ML IVPB SCH (02:00)
[2021-03-18 04:51] LABS: Absolute Lymphocytes (CBC) 0.2 K/uL (0.7-4.9); Hematocrit 27.8 % (36.0-45.0); Lymphocytes % 3.6 % (15.3-44.8)
[2021-03-18 05:20] LABS: Albumin 1.2 g/dL (3.4-5.0); Bilirubin Total 0.3 mg/dL (0.2-1.0); C-Reactive Protein 26.5 mg/L (<3.00); Magnesium 2.9 mg/dL (1.8-2.4); Phosphorus 3.5 mg/dL (2.5-4.9); Potassium 3.6 mmol/L (3.5-5.1); Protein, Total 5.2 g/dL (6.4-8.2); Thyroid Stimulating Hormone 0.36 uIU/mL (0.360-3.740)
[2021-03-18] MEDS: THYROID 30 MG TAB PO SCH ×3 (06:00→06:43)
[2021-03-18] MEDS: BENZONATATE 100 MG CAP PO PRN ×2 (08:31→20:59)
[2021-03-18] MEDS: SPIRONOLACTONE 25 MG TABLET PO SCH (08:32)
[2021-03-18] MEDS: ROSUVASTATIN 10 MG TAB PO SCH (08:32)
[2021-03-18] MEDS: ENOXAPARIN 30 MG/0.3 ML SQ SCH (08:32)
[2021-03-18] MEDS: TOPIRAMATE 25 MG TAB PO SCH ×2 (08:33→20:37)
[2021-03-18] MEDS: VITAMIN D 1000 UNIT TAB PO SCH (08:33)
[2021-03-18] MEDS: INSULIN -REGULAR HUMAN 50 UNIT/0.5 ML ML SQ SCH ×4 (08:33→20:37)
[2021-03-18] MEDS: ASPIRIN EC 81 MG TAB PO SCH (08:33)
[2021-03-18] MEDS: carvediloL 12.5 MG TAB PO SCH ×2 (08:33→20:39)
[2021-03-18] MEDS: GLUCERNA SHAKE 237 ML CAN PO SCH ×2 (08:37→20:39)
[2021-03-18] MEDS: METHYLPREDNISOLONE 40 MG INJ IV SCH ×2 (08:38→20:38)
[2021-03-18] MEDS ORDERED: POTASSIUM CL 40 MEQ in NA CHLORIDE 0.9% 500 ML IV SCH (11:00)
--- NOTE | 2021-03-18 11:02 | P.PN ---
Subjective Date of Service: 03/18/21 Primary Care Provider: Dr. Manley Chief Complaint: COVID-19 pneumonia Patient seen and examined at bedside, on 10L of via [place]. Repeat BC showed NG @24 hours--vancomycin DC. Review of Systems 10-point ROS is otherwise unremarkable Physical Examination - Vital Signs Temperature: 97.5 F Blood Pressure: 152/68 Pulse: 80 Respirations: 18 Pulse Ox (%): 92 - Studies Laboratory Last Values WBC 2.40 K/uL (4.3-10.9) L 03/14/21 19:50 RBC 3.30 M/uL (3.86-4.86) L 03/14/21 19:50 Hgb 9.6 g/dL (12.0-15.0) L 03/14/21 19:50 Hct 29.2 % (36.0-45.0) L 03/14/21 19:50 MCV 88.4 fL (80-100) D 03/14/21 19:50 MCH 29.1 pg (27.0-35.0) 03/14/21 19:50 MCHC 32.9 g/dL (32.0-36.0) 03/14/21 19:50 RDW 13.2 % (12.1-15.2) 03/14/21 19:50 Plt Count 168 K/uL (152-406) 03/14/21 19:50 MPV 10.0 fL (7.6-11.3) 03/14/21 19:50 Neutrophils % 73.8 % (41.7-73.7) H 03/14/21 19:50 Lymphocytes % 17.1 % (15.3-44.8) 03/14/21 19:50 Monocytes % 9.0 % (3.3-12.3) 03/14/21 19:50 Eosinophils % 0.0 % (0-4.4) 03/14/21 19:50 Basophils % 0.1 % (0-1.3) 03/14/21 19:50 Absolute Neutrophils 1.8 K/uL (1.8-8.0) 03/14/21 19:50 Segmented Neutrophils 70 % (40-80) 03/14/21 19:50 Band Neutrophils 8 % (0-1) H 03/14/21 19:50 Absolute Lymphocytes 0.4 K/uL (0.7-4.9) L 03/14/21 19:50 Lymphocytes 16 % (15-42) 03/14/21 19:50 Monocytes 6 % (0-10) 03/14/21 19:50 Absolute Monocytes 0.2 K/uL (0.1-1.3) 03/14/21 19:50 Absolute Eosinophils 0.0 K/uL (0-0.5) 03/14/21 19:50 Absolute Basophils 0.0 K/uL (0-0.5) 03/14/21 19:50 Platelet Estimate Adeq 03/14/21 19:50 Morphology Comment Not seen (NOT SEEN) 03/14/21 19:50 PT 10.2 SECONDS (9.5-12.5) 03/14/21 19:50 INR 0.89 03/14/21 19:50 APTT 29.3 SECONDS (24.3-36.9) 03/14/21 19:50 D-Dimer 1113 FEUng/mL (<500) H* 03/14/21 19:50 pH 7.38 (7.35-7.45) 03/14/21 21:06 pCO2 29.3 mmHG (35-45) L 03/14/21 21:06 pO2 61.5 mmHG (75-100) L 03/14/21 21:06 HCO3 17.0 mmol/L (22-28) L 03/14/21 21:06 Base Excess -7.2 mmol/L 03/14/21 21:06 Oxyhemoglobin 84.4 % (94-97) L 03/14/21 21:06 ABG O2 Sat (Measured) 87.1 % (92-98.5) L 03/14/21 21:06 ABG Carboxyhemoglobin 1.9 % (0-1.5) H 03/14/21 21:06 ABG Methemoglobin 1.2 % (0-1.5) 03/14/21 21:06 Other Total Hgb 8.9 g/dl (12-18) L 03/14/21 21:06 Inspired O2 28.0 % 03/14/21 21:06 Sodium 135 mmol/L (136-145) L 03/14/21 19:50 Potassium 3.7 mmol/L (3.5-5.1) 03/14/21 19:50 Chloride 100 mmol/L (98-107) 03/14/21 19:50 Carbon Dioxide 19 mmol/L (21-32) L 03/14/21 19:50 BUN 43 mg/dL (7-18) H 03/14/21 19:50 Creatinine 1.99 mg/dL (0.55-1.3) H 03/14/21 19:50 Estimated GFR 26 mL/min (=/>90) L 03/14/21 19:50 Glucose 298 mg/dL (74-106) H 03/14/21 19:50 Lactic Acid 1.6 mmol/L (0.4-2.0) 03/14/21 19:50 Calcium 7.9 mg/dL (8.5-10.1) L 03/14/21 19:50 Ferritin 994.1 ng/mL (8-388) H 03/14/21 19:50 Total Bilirubin 0.3 mg/dL (0.2-1.0) 03/14/21 19:50 Direct Bilirubin < 0.1 mg/dL (0-0.2) 03/14/21 19:50 AST 32 U/L (15-37) 03/14/21 19:50 ALT 22 U/L (12-78) 03/14/21 19:50 Alkaline Phosphatase 97 U/L (45-117) 03/14/21 19:50 Rapid Troponin I 0.13 ng/mL (0.0-0.045) H 03/14/21 19:50 C-Reactive Protein 142.00 mg/L (<3.00) H 03/14/21 19:50 Serum Total Protein 6.3 g/dL (6.4-8.2) L 03/14/21 19:50 Albumin 1.7 g/dL (3.4-5.0) L 03/14/21 19:50 Globulin 4.6 g/dL (2.3-3.5) H 03/14/21 19:50 Albumin/Globulin Ratio 0.4 (1.1-1.8) L 03/14/21 19:50 Lipase 79 U/L (73-393) 03/14/21 19:50 Procalcitonin 0.97 ng/mL (<0.050) H 03/14/21 19:50 Urine RBC 5-10 /HPF (NONE SEEN) H 03/14/21 20:00 Urine WBC 5-10 /HPF (<5) H 03/14/21 20:00 Ur Squamous Epith Cells 5-10 /HPF (NONE SEEN) H 03/14/21 20:00 Amorphous Sediment 1+ /HPF (NONE SEEN) 03/14/21 20:00 Urine Bacteria >50 /HPF (<20) H 03/14/21 20:00 Fine Granular Casts 0-5 /LPF (NONE SEEN) 03/14/21 20:00 Coarse Granular Casts 0-5 /LPF (NONE SEEN) 03/14/21 20:00 Urine Mucus 2+ /HPF (NONE SEEN) 03/14/21 20:00 Urine Culture Reflexed Reflexed 03/14/21 20:00 Acetone Level Small (NEG) H 03/14/21 19:50 Influenza Type A RNA Negative (NEGATIVE) 03/14/21 20:00 Influenza Type B RNA Negative (NEGATIVE) 03/14/21 20:00 SARS-CoV-2 RNA (RT-PCR) Positive (NEGATIVE) A 03/14/21 20:00 Microbiology Data (last 24 hrs): 03/14/21 19:50 Blood - Blood Blood Culture Gram Stain - Final 03/14/21 19:50 Blood - Blood Gram Stain - Final 03/14/21 20:15 Throat Culture & Sensitivity - Final NORMAL UPPER RESPIRATORY CHRISTOPH GROWN. 03/14/21 20:00 Clean Catch Urine [place] Count - Final >100,000 CFU/ML. 03/14/21 20:00 Clean Catch Urine - Final MIXED CHRISTOPH. Assessment And Plan - Plan Physical Exam: General: Alert, In no apparent distress HEENT: Atraumatic, Normocephalic Neck: Supple Respiratory: Other (diminshed ) Cardiovascular: No edema, Regular rate/rhythm Gastrointestinal: Normal bowel sounds, Soft and benign Conclusions/Impression: Antibiotics vancomycin start: 03/15 stop: 01/16 levaquin start: 03/15 stop: 03/16 Assessment/Plan Possible Bacteremia BC obtained on 03/14 grew CONs in both aerobic bottles. Repeat showed NG@24 hr. Likely contamination--vancomycin DC on 01/16. Possible UTI UC chowed mixed christoph, patient asymptomatic, levaquin DC on 03/16. COVID 19 On supplemental O2. Continue steroid therapy. Pulm following. Anemia continue to monitor H&H DM CKD stage 3 Hypothyroidism HTN HLD -medical management per primary team Plan of care discussed with Dr. Loaiza Thank you for consultation.
[2021-03-18] MEDS: NA CHLORIDE 0.9% 0 ML ONE ×2 (11:11)
--- NOTE | 2021-03-18 11:22 | PN ---
Date of Progress Note: 03/18/2021 Subjective: The patient was admitted with COVID pneumonia, respiratory failure. The patient has been on treatment. The patient had acute kidney injury. Creatinine ashu to 1.9, baseline 1.3 to 1.4. The patient was started on hydration. IV fluid has been discontinued yesterday. Physical Examination: Vital Signs: Blood pressure 152/68, pulse of 80, afebrile. The patient had good urine output. Chest: Faint rales bilateral. Heart: S1, S2. Regular. Abdomen: Soft, nontender. Extremity: Trace edema. Neurologic: Alert. No focality. Laboratory Data: WBC 6.5, H and H 9.3/27.8. Sodium 142, potassium 3.6, bicarb 22, BUN 51, creatinine 1.6, calcium 7.4, phosphorus 3.5, magnesium 2.9, albumin 1.2. Corrected calcium is 9.6. Current Medications: The patient on is include; 1. Aspirin. 2. Lovenox. 3. Atorvastatin. 4. Carvedilol. 5. Crestor. 6. Spironolactone 25 daily. 7. Pepcid. 8. Insulin. 9. Thyroid tab. 10. Melatonin. 11. Benzonatate. 12. Cholecalciferol. Assessment And Plan: 1. Acute kidney injury on chronic kidney disease. The patient has normal volume. I will keep holding IV fluid for the time being and we will continue to monitor the patient. Continue spironolactone. 2. Hypokalemia. Potassium trending up. Continue spironolactone. 3. Hypertension, controlled, optimal. Given the presence of COVID, I am going to start the patient on gentle dose of calcium channel lalo and we will follow up. Continue spironolactone. 4. Respiratory failure, multifactorial, secondary to COVID and over volume. Started on spironolactone. Continue to follow up with Pulmonary. time spend exam the patient face to face placing order discussing with the patient , rviewing data lab and radiology , discussing the case with other wallpaper remover steam inculding Nurse staff and Hospitalist 35 min [place] Voice ID: [id number] Report ID: [id number] MINDY
--- NOTE | 2021-03-18 15:48 | P.PN ---
Subjective Date of Service: 03/18/21 Primary Care Provider: Dr. Manley Chief Complaint: COVID-19 pneumonia Patient has no new complaint. Patient oxygen requirement increased to 15 L last night, now tolerating 8 L by nasal cannula. Physical Examination - Vital Signs Temperature: 97.6 F Blood Pressure: 149/66 Pulse: 76 Respirations: 18 Pulse Ox (%): 92 - Physical Exam General: Alert, In no apparent distress, Oriented x3 HEENT: Other (Oxygen by nasal cannula) Neck: JVD not distended Respiratory: Other (Nonlabored breathing) Cardiovascular: Regular rate/rhythm, Normal S1 S2 Gastrointestinal: Soft and benign, Non-distended, No tenderness Musculoskeletal: No swelling Integumentary: No rashes Neurological: Normal strength at 5/5 x4 extr - Studies Microbiology Data (last 24 hrs): 03/14/21 19:50 Blood - Blood Blood Culture Gram Stain - Final 03/14/21 19:50 Blood - Blood Gram Stain - Final Assessment And Plan - Plan Acute hypoxic respiratory failure secondary to bilateral COVID-19 pneumoniaunvaccinated Bacteremia Possible UTI Elevated troponin Diabetes mellitus type 2 with hyperglycemia Acute kidney injury superimposed on CKD 3 Hypertension Hyperlipidemia Migraines Acute hypoxic respiratory failure secondary to bilateral COVID-19 pneumoniaunvaccinated: Bacteremia UTI Continue with steroids, titrate oxygen Pulmonology is following. Continue to monitor inflammatory markers. Blood cultures: Coagulase-negative staph. This is likely a skin contaminant. Repeat blood culture: No growth to date. Empirically started vancomycin on 03/15. Antibiotics discontinued. UA suggestive possible UTI. Urine culture: Mixed growth. Patient briefly treated with Levaquin. Elevated troponin: Likely secondary to COVID-19 pneumonia. Ekg without ischemic changes. Troponin trended flat. Patient is asymptomatic. Diabetes mellitus type 2 with hyperglycemia: worsened by steroid use Continue long acting insulin and sliding scale UMM superimposed on CKD 3: UMM is improving I suspect creatinine is at baseline. nephrology is following Hypertension HLD Migraines SABINE/ARB on hold given acute kidney injury Continue amlodipine and Coreg. DVT prophylaxis: Lovenox
[2021-03-18] MEDS: MELATONIN 5 MG TABLET PO PRN (20:37)
[2021-03-18] MEDS: ATORVASTATIN 40 MG TAB PO SCH (20:37)
[2021-03-18] MEDS: FAMOTIDINE 20 MG/2 ML VIAL IV PRN (20:58)
[2021-03-18] MEDS ORDERED: LORazepam 2 MG/ML VIAL IV PRN (21:16)
[2021-03-19 04:38] LABS: Albumin 1.3 g/dL (3.4-5.0); C-Reactive Protein 17.9 mg/L (<3.00); Phosphorus 2.5 mg/dL (2.5-4.9); Potassium 3.8 mmol/L (3.5-5.1)
[2021-03-19] MEDS: INSULIN -REGULAR HUMAN 50 UNIT/0.5 ML ML SQ SCH ×4 (07:30→20:13)
[2021-03-19] MEDS: VITAMIN D 1000 UNIT TAB PO SCH (09:38)
[2021-03-19] MEDS: ASPIRIN EC 81 MG TAB PO SCH (09:38)
[2021-03-19] MEDS: carvediloL 12.5 MG TAB PO SCH ×2 (09:38→20:13)
[2021-03-19] MEDS: BENZONATATE 100 MG CAP PO PRN ×2 (09:39→20:13)
[2021-03-19] MEDS: TOPIRAMATE 25 MG TAB PO SCH ×2 (09:39→20:13)
[2021-03-19] MEDS: SPIRONOLACTONE 25 MG TABLET PO SCH (09:39)
[2021-03-19] MEDS: ROSUVASTATIN 10 MG TAB PO SCH (09:39)
[2021-03-19] MEDS: ENOXAPARIN 30 MG/0.3 ML SQ SCH (09:40)
[2021-03-19] MEDS: METHYLPREDNISOLONE 40 MG INJ IV SCH ×2 (09:40→20:12)
[2021-03-19] MEDS: AMLODIPINE 5 MG TAB PO SCH (09:40)
[2021-03-19] MEDS: GLUCERNA SHAKE 237 ML CAN PO SCH ×2 (09:41→20:13)
--- NOTE | 2021-03-19 11:41 | P.PN ---
Subjective Date of Service: 03/19/21 Primary Care Provider: Dr. Manley Chief Complaint: COVID-19 pneumonia Patient seen and examined at bedside, now requiring high flow oxygen. Review of Systems 10-point ROS is otherwise unremarkable Physical Examination - Vital Signs Temperature: 97.2 F Blood Pressure: 144/73 Pulse: 75 Respirations: 22 Pulse Ox (%): 100 - Studies 03/14/21 19:25 Blood - Blood Aerobic Blood Culture - Preliminary Staph Epidermidis 03/14/21 19:25 Blood - Blood Blood Culture Gram Stain - Final 03/14/21 19:25 Blood - Blood Anaerobic Blood Culture - Preliminary No growth in 24 hours. 03/14/21 19:50 Blood - Blood Aerobic Blood Culture - Preliminary 03/14/21 19:50 Blood - Blood Blood Culture Gram Stain - Final 03/14/21 19:50 Blood - Blood Anaerobic Blood Culture - Preliminary 03/14/21 19:50 Blood - Blood Gram Stain - Final Microbiology Data (last 24 hrs): 03/14/21 19:25 Blood - Blood Blood Culture Gram Stain - Final 03/14/21 19:50 Blood - Blood Blood Culture Gram Stain - Final 03/14/21 19:50 Blood - Blood Gram Stain - Final Assessment And Plan - Plan Physical Exam: General: Alert, In no apparent distress HEENT: Atraumatic, Normocephalic Neck: Supple Respiratory: Other (diminshed ) Cardiovascular: No edema, Regular rate/rhythm Gastrointestinal: Normal bowel sounds, Soft and benign Conclusions/Impression: Antibiotics vancomycin start: 03/15 stop: 01/16 levaquin start: 03/15 stop: 03/16 Assessment/Plan Possible Bacteremia BC obtained on 03/14 grew CONs in both aerobic bottles. Repeat showed NG@24 hr. Likely contamination--vancomycin DC on 01/16. Possible UTI UC chowed mixed christoph, patient asymptomatic, levaquin DC on 03/16. COVID 19 On supplemental O2. Continue steroid therapy. Pulm following. Anemia continue to monitor H&H DM CKD stage 3 Hypothyroidism HTN HLD -medical management per primary team Plan of care discussed with Dr. Loaiza Thank you for consultation.
--- NOTE | 2021-03-19 13:46 | P.PN ---
Subjective Date of Service: 03/19/21 Primary Care Provider: Dr. Manley Chief Complaint: COVID-19 pneumonia Patient has no new complaint. She appears comfortable. She was initially requiring high flow oxygen overnight but has currently been weaned down to 7 L oxygen by nasal cannula. She has no new complaints. Physical Examination - Vital Signs Temperature: 97.5 F Blood Pressure: 129/63 Pulse: 73 Respirations: 22 Pulse Ox (%): 98 - Physical Exam General: Alert, In no apparent distress HEENT: Other (Oxygen by nasal cannula) Neck: JVD not distended Respiratory: Other (Nonlabored breathing) Cardiovascular: No edema, Regular rate/rhythm, Normal S1 S2 Gastrointestinal: Soft and benign, Non-distended Musculoskeletal: No swelling Integumentary: No rashes, No cyanosis Neurological: Normal strength at 5/5 x4 extr - Studies Microbiology Data (last 24 hrs): 03/14/21 19:50 Blood - Blood Aerobic Blood Culture - Final Staph Epidermidis 03/14/21 19:50 Blood - Blood Blood Culture Gram Stain - Final 03/14/21 19:50 Blood - Blood Anaerobic Blood Culture - Final Staph Epidermidis 03/14/21 19:50 Blood - Blood Gram Stain - Final 03/14/21 19:25 Blood - Blood Blood Culture Gram Stain - Final Assessment And Plan - Plan Acute hypoxic respiratory failure secondary to bilateral COVID-19 pneumoniaunvaccinated Bacteremia Possible UTI Elevated troponin Diabetes mellitus type 2 with hyperglycemia Acute kidney injury superimposed on CKD 3 Hypertension Hyperlipidemia Migraines Acute hypoxic respiratory failure secondary to bilateral COVID-19 pneumoniaunvaccinated: Bacteremia UTI Continue with steroids. She is not tolerating 7 L oxygen by nasal cannula. Pulmonology is following. Continue to monitor inflammatory markers. Blood cultures: Coagulase-negative staph. This is likely a skin contaminant. Repeat blood culture: No growth to date. Empirically started vancomycin on 03/15. Antibiotics discontinued. UA suggestive possible UTI. Urine culture: Mixed growth. Patient briefly treated with Levaquin. Elevated troponin: Likely secondary to COVID-19 pneumonia. Ekg without ischemic changes. Troponin trended flat. Patient is asymptomatic. Diabetes mellitus type 2 with hyperglycemia: worsened by steroid use Continue long acting insulin and sliding scale UMM superimposed on CKD 3: UMM is improving I suspect creatinine is currently at baseline. nephrology is following Hypertension HLD Migraines SABINE/ARB on hold given acute kidney injury Continue amlodipine and Coreg. DVT prophylaxis: Lovenox
--- NOTE | 2021-03-19 14:13 | PN ---
Date of Progress Note: 03/19/2021 Subjective: The patient doing better today, sitting in the chair, down on FiO2 down to 5 L. No distress. Physical Examination: Vital Signs: Blood pressure of 129/63, pulse of 73, afebrile. Chest: Faint rales bilateral. Heart: S1, S2. Regular. Abdomen: Soft, nontender. Extremities: No edema. Neurologic: Alert. No focality. Laboratory Data: WBC 6.5, H and H 9.3/27.8. Sodium 144, potassium 3.8, bicarb 23, BUN 47, creatinine 1.4, GFR 37, calcium 7.5, phosphorus 2.5, albumin 1.3. Corrected calcium is 9.9. Current Medications: The patient on include Lovenox, aspirin, amlodipine, atorvastatin, carvedilol 12.5, spironolactone, rosuvastatin, Zofran, Solu- Medrol. Assessment And Plan: 1. Acute kidney injury on chronic kidney disease, back close to baseline. We will continue to monitor. Continue spironolactone. 2. Hypertension, controlled, optimal. Continue current treatment. 3. Hypokalemia, resolved after starting spironolactone. 4. COVID pneumonia as by primary and Pulmonary. 5. Congestive heart failure, currently normal volume. Continue spironolactone. Hold IV fluid. time spend exam the patient face to face placing order discussing with the patient , rviewing data lab and radiology , discussing the case with other prepared foods service team member inculding Nurse staff and Hospitalist 35 min MAREK/WOOD Voice ID: [id number] Report ID: [id number] MTDJavad
[2021-03-19] MEDS: ACETAMINOPHEN 500 MG TAB PO PRN (20:12)
[2021-03-19] MEDS: ATORVASTATIN 40 MG TAB PO SCH (20:13)
[2021-03-19] MEDS: MELATONIN 5 MG TABLET PO PRN (20:13)
[2021-03-20] MEDS: THYROID 30 MG TAB PO SCH (05:24)
--- NOTE | 2021-03-20 06:25 | P.PN ---
Subjective Date of Service: 03/20/21 Primary Care Provider: Dr. Manley Chief Complaint: COVID-19 pneumonia Subjective: Other (Reports no increase in SOB.) Physical Examination - Vital Signs Temperature: 97.3 F Blood Pressure: 130/72 Pulse: 81 Respirations: 18 Pulse Ox (%): 91 - Physical Exam General: Other (Appears acutely ill) HEENT: Atraumatic, Normocephalic Neck: Supple Respiratory: Other (Symmetric chest expansion) Cardiovascular: No rubs, No murmurs Gastrointestinal: Soft and benign, No guarding Musculoskeletal: No clubbing Integumentary: No warmth Neurological: Normal tone Urinary: Other (No bladder distention) External genitalia: Deferred Rectal: Deferred - Studies Microbiology Data (last 24 hrs): 03/14/21 19:25 Blood - Blood Blood Culture Gram Stain - Final 03/14/21 19:25 Blood - Blood Anaerobic Blood Culture - Final No growth in 5 days. 03/14/21 19:50 Blood - Blood Aerobic Blood Culture - Final Staph Epidermidis 03/14/21 19:50 Blood - Blood Blood Culture Gram Stain - Final 03/14/21 19:50 Blood - Blood Anaerobic Blood Culture - Final Staph Epidermidis 03/14/21 19:50 Blood - Blood Gram Stain - Final Assessment And Plan - Plan 1. Acute kidney injury 2/2 prerenal state, on chronic kidney disease, back close to baseline. SCr improved to 1.44. Continue spironolactone. [place] po fluid intake. Monitor renal panel. 2. Hypertension. BP above goal. Increase Amlodipine to 10 mg po daily. 3. Hypokalemia, resolved after starting spironolactone. Monitor/replete K prn. 4. Acute respi failure 2/2 COVID pneumonia & CHF. Continue diuretics & stero id. [place] po fluid intake as above. Low Na diet. 5. DM2. Mngt per primary team.
[2021-03-20 06:38] LABS: Albumin 1.2 g/dL (3.4-5.0); Phosphorus 2.8 mg/dL (2.5-4.9)
[2021-03-20] MEDS: VITAMIN D 1000 UNIT TAB PO SCH (08:21)
[2021-03-20] MEDS: ROSUVASTATIN 10 MG TAB PO SCH (08:22)
[2021-03-20] MEDS: ASPIRIN EC 81 MG TAB PO SCH (08:22)
[2021-03-20] MEDS: SPIRONOLACTONE 25 MG TABLET PO SCH (08:22)
[2021-03-20] MEDS: TOPIRAMATE 25 MG TAB PO SCH ×2 (08:22→23:21)
[2021-03-20] MEDS: AMLODIPINE 5 MG TAB PO SCH (08:23)
[2021-03-20] MEDS: INSULIN -REGULAR HUMAN 50 UNIT/0.5 ML ML SQ SCH ×4 (08:23→21:00)
[2021-03-20] MEDS: carvediloL 12.5 MG TAB PO SCH ×2 (08:23→23:21)
[2021-03-20] MEDS: ENOXAPARIN 30 MG/0.3 ML SQ SCH (08:24)
[2021-03-20] MEDS: ONDANSETRON 4 MG/2 ML VIAL IV PRN (08:24)
[2021-03-20] MEDS: METHYLPREDNISOLONE 40 MG INJ IV SCH (08:24)
[2021-03-20] MEDS: GLUCERNA SHAKE 237 ML CAN PO SCH ×2 (08:25→21:00)
--- NOTE | 2021-03-20 11:43 | P.PN ---
Subjective Date of Service: 03/20/21 Primary Care Provider: Dr. Manley Chief Complaint: COVID-19 pneumonia And is doing well oxygenation improved Review of Systems General: Weakness Respiratory: Shortness of Breath Physical Examination - Vital Signs Temperature: 98.0 F Blood Pressure: 159/73 Pulse: 84 Respirations: 20 Pulse Ox (%): 94 - Physical Exam General: Alert, Cooperative - Studies Microbiology Data (last 24 hrs): 03/14/21 19:25 Blood - Blood Aerobic Blood Culture - Final Staph Epidermidis 03/14/21 19:25 Blood - Blood Blood Culture Gram Stain - Final 03/14/21 19:25 Blood - Blood Anaerobic Blood Culture - Final No growth in 5 days. 03/14/21 19:50 Blood - Blood Aerobic Blood Culture - Final Staph Epidermidis 03/14/21 19:50 Blood - Blood Blood Culture Gram Stain - Final 03/14/21 19:50 Blood - Blood Anaerobic Blood Culture - Final Staph Epidermidis 03/14/21 19:50 Blood - Blood Gram Stain - Final Assessment & Plan - Problems (Diagnosis) (1) Acute respiratory failure due to COVID-19 Current Visit: Yes Status: Acute Plan: Respiratory failure patient is improving plan to discharge blood pressure mildly elevated renal function improved set up for home O2 possible labs medication list reviewed change management specialist to p.o. prednisone follow-up with me in 2 weeks continue with low-dose prednisone 10 mg twice a day for 2-week with aspirin
[2021-03-20] MEDS ORDERED: AMLODIPINE 5 MG TAB PO ONE (11:55)
--- NOTE | 2021-03-20 11:59 | P.PN ---
Subjective Date of Service: 03/20/21 Primary Care Provider: Dr. Manley Chief Complaint: COVID-19 pneumonia Patient seen and examined at bedside, weaned back down to oxygen via nasal cannula currently utilizing 5 L. Review of Systems 10-point ROS is otherwise unremarkable Physical Examination - Vital Signs Temperature: 98.0 F Blood Pressure: 159/73 Pulse: 84 Respirations: 20 Pulse Ox (%): 94 - Studies Laboratory Last Values WBC 2.40 K/uL (4.3-10.9) L 03/14/21 19:50 RBC 3.30 M/uL (3.86-4.86) L 03/14/21 19:50 Hgb 9.6 g/dL (12.0-15.0) L 03/14/21 19:50 Hct 29.2 % (36.0-45.0) L 03/14/21 19:50 MCV 88.4 fL (80-100) D 03/14/21 19:50 MCH 29.1 pg (27.0-35.0) 03/14/21 19:50 MCHC 32.9 g/dL (32.0-36.0) 03/14/21 19:50 RDW 13.2 % (12.1-15.2) 03/14/21 19:50 Plt Count 168 K/uL (152-406) 03/14/21 19:50 MPV 10.0 fL (7.6-11.3) 03/14/21 19:50 Neutrophils % 73.8 % (41.7-73.7) H 03/14/21 19:50 Lymphocytes % 17.1 % (15.3-44.8) 03/14/21 19:50 Monocytes % 9.0 % (3.3-12.3) 03/14/21 19:50 Eosinophils % 0.0 % (0-4.4) 03/14/21 19:50 Basophils % 0.1 % (0-1.3) 03/14/21 19:50 Absolute Neutrophils 1.8 K/uL (1.8-8.0) 03/14/21 19:50 Segmented Neutrophils 70 % (40-80) 03/14/21 19:50 Band Neutrophils 8 % (0-1) H 03/14/21 19:50 Absolute Lymphocytes 0.4 K/uL (0.7-4.9) L 03/14/21 19:50 Lymphocytes 16 % (15-42) 03/14/21 19:50 Monocytes 6 % (0-10) 03/14/21 19:50 Absolute Monocytes 0.2 K/uL (0.1-1.3) 03/14/21 19:50 Absolute Eosinophils 0.0 K/uL (0-0.5) 03/14/21 19:50 Absolute Basophils 0.0 K/uL (0-0.5) 03/14/21 19:50 Platelet Estimate Adeq 03/14/21 19:50 Morphology Comment Not seen (NOT SEEN) 03/14/21 19:50 PT 10.2 SECONDS (9.5-12.5) 03/14/21 19:50 INR 0.89 03/14/21 19:50 APTT 29.3 SECONDS (24.3-36.9) 03/14/21 19:50 D-Dimer 1113 FEUng/mL (<500) H* 03/14/21 19:50 pH 7.38 (7.35-7.45) 03/14/21 21:06 pCO2 29.3 mmHG (35-45) L 03/14/21 21:06 pO2 61.5 mmHG (75-100) L 03/14/21 21:06 HCO3 17.0 mmol/L (22-28) L 03/14/21 21:06 Base Excess -7.2 mmol/L 03/14/21 21:06 Oxyhemoglobin 84.4 % (94-97) L 03/14/21 21:06 ABG O2 Sat (Measured) 87.1 % (92-98.5) L 03/14/21 21:06 ABG Carboxyhemoglobin 1.9 % (0-1.5) H 03/14/21 21:06 ABG Methemoglobin 1.2 % (0-1.5) 03/14/21 21:06 Other Total Hgb 8.9 g/dl (12-18) L 03/14/21 21:06 Inspired O2 28.0 % 03/14/21 21:06 Sodium 135 mmol/L (136-145) L 03/14/21 19:50 Potassium 3.7 mmol/L (3.5-5.1) 03/14/21 19:50 Chloride 100 mmol/L (98-107) 03/14/21 19:50 Carbon Dioxide 19 mmol/L (21-32) L 03/14/21 19:50 BUN 43 mg/dL (7-18) H 03/14/21 19:50 Creatinine 1.99 mg/dL (0.55-1.3) H 03/14/21 19:50 Estimated GFR 26 mL/min (=/>90) L 03/14/21 19:50 Glucose 298 mg/dL (74-106) H 03/14/21 19:50 Lactic Acid 1.6 mmol/L (0.4-2.0) 03/14/21 19:50 Calcium 7.9 mg/dL (8.5-10.1) L 03/14/21 19:50 Ferritin 994.1 ng/mL (8-388) H 03/14/21 19:50 Total Bilirubin 0.3 mg/dL (0.2-1.0) 03/14/21 19:50 Direct Bilirubin < 0.1 mg/dL (0-0.2) 03/14/21 19:50 AST 32 U/L (15-37) 03/14/21 19:50 ALT 22 U/L (12-78) 03/14/21 19:50 Alkaline Phosphatase 97 U/L (45-117) 03/14/21 19:50 Rapid Troponin I 0.13 ng/mL (0.0-0.045) H 03/14/21 19:50 C-Reactive Protein 142.00 mg/L (<3.00) H 03/14/21 19:50 Serum Total Protein 6.3 g/dL (6.4-8.2) L 03/14/21 19:50 Albumin 1.7 g/dL (3.4-5.0) L 03/14/21 19:50 Globulin 4.6 g/dL (2.3-3.5) H 03/14/21 19:50 Albumin/Globulin Ratio 0.4 (1.1-1.8) L 03/14/21 19:50 Lipase 79 U/L (73-393) 03/14/21 19:50 Procalcitonin 0.97 ng/mL (<0.050) H 03/14/21 19:50 Urine RBC 5-10 /HPF (NONE SEEN) H 03/14/21 20:00 Urine WBC 5-10 /HPF (<5) H 03/14/21 20:00 Ur Squamous Epith Cells 5-10 /HPF (NONE SEEN) H 03/14/21 20:00 Amorphous Sediment 1+ /HPF (NONE SEEN) 03/14/21 20:00 Urine Bacteria >50 /HPF (<20) H 03/14/21 20:00 Fine Granular Casts 0-5 /LPF (NONE SEEN) 03/14/21 20:00 Coarse Granular Casts 0-5 /LPF (NONE SEEN) 03/14/21 20:00 Urine Mucus 2+ /HPF (NONE SEEN) 03/14/21 20:00 Urine Culture Reflexed Reflexed 03/14/21 20:00 Acetone Level Small (NEG) H 03/14/21 19:50 Influenza Type A RNA Negative (NEGATIVE) 03/14/21 20:00 Influenza Type B RNA Negative (NEGATIVE) 03/14/21 20:00 SARS-CoV-2 RNA (RT-PCR) Positive (NEGATIVE) A 03/14/21 20:00 Microbiology Data (last 24 hrs): 03/14/21 19:25 Blood - Blood Aerobic Blood Culture - Final Staph Epidermidis 03/14/21 19:25 Blood - Blood Blood Culture Gram Stain - Final 03/14/21 19:25 Blood - Blood Anaerobic Blood Culture - Final No growth in 5 days. 03/14/21 19:50 Blood - Blood Aerobic Blood Culture - Final Staph Epidermidis 03/14/21 19:50 Blood - Blood Blood Culture Gram Stain - Final 03/14/21 19:50 Blood - Blood Anaerobic Blood Culture - Final Staph Epidermidis 03/14/21 19:50 Blood - Blood Gram Stain - Final Assessment And Plan - Plan Physical Exam: General: Alert, In no apparent distress HEENT: Atraumatic, Normocephalic Neck: Supple Respiratory: Other (diminshed ) Cardiovascular: No edema, Regular rate/rhythm Gastrointestinal: Normal bowel sounds, Soft and benign Conclusions/Impression: Antibiotics vancomycin start: 03/15 stop: 01/16 levaquin start: 03/15 stop: 03/16 Assessment/Plan Possible Bacteremia BC obtained on 03/14 grew CONs in both aerobic bottles. Repeat showed NG@24 hr. Likely contamination--vancomycin DC on 01/16. Possible UTI UC chowed mixed christoph, patient asymptomatic, levaquin DC on 03/16. COVID 19 On supplemental O2. Continue steroid therapy. Pulm following. Anemia continue to monitor H&H DM CKD stage 3 Hypothyroidism HTN HLD -medical management per primary team Plan of care discussed with Dr. Loaiza Thank you for consultation.
--- NOTE | 2021-03-20 14:56 | P.PN ---
Subjective Date of Service: 03/20/21 Primary Care Provider: Dr. Manley Chief Complaint: COVID-19 pneumonia Patient has no new complaint. She appears comfortable. She is currently tolerating 5 L oxygen by nasal cannula. She has no new complaints. Physical Examination - Vital Signs Temperature: 98.0 F Blood Pressure: 132/61 Pulse: 82 Respirations: 20 Pulse Ox (%): 94 - Physical Exam General: Alert, In no apparent distress, Oriented x3 HEENT: Mucous membr. moist/pink Respiratory: Other (Nonlabored breathing) Cardiovascular: No edema, Regular rate/rhythm, Normal S1 S2 Gastrointestinal: Soft and benign, Non-distended Musculoskeletal: No swelling Integumentary: No rashes Neurological: Normal strength at 5/5 x4 extr - Studies Microbiology Data (last 24 hrs): 03/14/21 19:25 Blood - Blood Aerobic Blood Culture - Final Staph Epidermidis 03/14/21 19:25 Blood - Blood Blood Culture Gram Stain - Final 03/14/21 19:25 Blood - Blood Anaerobic Blood Culture - Final No growth in 5 days. 03/14/21 19:50 Blood - Blood Aerobic Blood Culture - Final Staph Epidermidis 03/14/21 19:50 Blood - Blood Blood Culture Gram Stain - Final 03/14/21 19:50 Blood - Blood Anaerobic Blood Culture - Final Staph Epidermidis 03/14/21 19:50 Blood - Blood Gram Stain - Final Assessment And Plan - Plan Acute hypoxic respiratory failure secondary to bilateral COVID-19 pneumoniaunvaccinated Bacteremia Possible UTI Elevated troponin Diabetes mellitus type 2 with hyperglycemia Acute kidney injury superimposed on CKD 3 Hypertension Hyperlipidemia Migraines Acute hypoxic respiratory failure secondary to bilateral COVID-19 pneumoniaunvaccinated: Bacteremia UTI Continue with steroids. She is now tolerating 5 L oxygen by nasal cannula. Pulmonology is following. Continue to monitor inflammatory markers. Blood cultures: Coagulase-negative staph. This is likely a skin contaminant. Repeat blood culture: No growth to date. Empirically started vancomycin on 03/15. Antibiotics discontinued. UA suggestive possible UTI. Urine culture: Mixed growth. Patient briefly treated with Levaquin. May be a candidate for pulmonary rehab. Social service is assisting with arrangements for placement for pulmonary rehab. Elevated troponin: Likely secondary to COVID-19 pneumonia. Ekg without ischemic changes. Troponin trended flat. Patient is asymptomatic. Diabetes mellitus type 2 with hyperglycemia: Continue long acting insulin and sliding scale UMM superimposed on CKD 3: UMM is improving I suspect creatinine is currently at baseline. nephrology is following Hypertension HLD Migraines SABINE/ARB on hold given acute kidney injury Continue amlodipine and Coreg. DVT prophylaxis: Lovenox
[2021-03-20] MEDS: predniSONE 20 MG TAB PO SCH (23:23)
[2021-03-20] MEDS: ATORVASTATIN 40 MG TAB PO SCH (23:23)
[2021-03-21 04:32] LABS: Absolute Lymphocytes (CBC) 0.2 K/uL (0.7-4.9); Hematocrit 27.2 % (36.0-45.0); Lymphocytes % 2.1 % (15.3-44.8); MPV 8.6 fL (7.6-11.3); RBC Red Blood Cell Count 3.09 M/uL (3.86-4.86)
[2021-03-21 04:45] LABS: Albumin 1.3 g/dL (3.4-5.0); Magnesium 2.8 mg/dL (1.8-2.4); Phosphorus 2.7 mg/dL (2.5-4.9); Potassium 4.2 mmol/L (3.5-5.1)
[2021-03-21] MEDS: THYROID 30 MG TAB PO SCH (07:25)
[2021-03-21] MEDS: INSULIN -REGULAR HUMAN 50 UNIT/0.5 ML ML SQ SCH ×4 (07:30→21:00)
[2021-03-21] MEDS: ROSUVASTATIN 10 MG TAB PO SCH (08:35)
[2021-03-21] MEDS: SPIRONOLACTONE 25 MG TABLET PO SCH (08:35)
[2021-03-21] MEDS: BENZONATATE 100 MG CAP PO PRN (08:36)
[2021-03-21] MEDS: TOPIRAMATE 25 MG TAB PO SCH ×2 (08:36→21:15)
[2021-03-21] MEDS: carvediloL 12.5 MG TAB PO SCH ×2 (08:37→21:16)
[2021-03-21] MEDS: AMLODIPINE 10 MG TAB PO SCH (08:37)
[2021-03-21] MEDS: VITAMIN D 1000 UNIT TAB PO SCH (08:37)
[2021-03-21] MEDS: ASPIRIN EC 81 MG TAB PO SCH (08:38)
[2021-03-21] MEDS: ENOXAPARIN 30 MG/0.3 ML SQ SCH (08:38)
[2021-03-21] MEDS: GLUCERNA SHAKE 237 ML CAN PO SCH ×2 (08:38→21:15)
[2021-03-21] MEDS: predniSONE 20 MG TAB PO SCH ×2 (08:38→21:15)
--- NOTE | 2021-03-21 10:38 | P.PN ---
Subjective Date of Service: 03/21/21 Primary Care Provider: Dr. Manley Chief Complaint: COVID-19 pneumonia No new change condition stable still hypoxic requiring 10 L of high flow oxygen Review of Systems General: Weakness Respiratory: Shortness of Breath Physical Examination - Vital Signs Temperature: 98.0 F Blood Pressure: 146/70 Pulse: 86 Respirations: 20 Pulse Ox (%): 89 - Physical Exam General: Alert, In no apparent distress, Cooperative - Studies Microbiology Data (last 24 hrs): 03/14/21 19:25 Blood - Blood Aerobic Blood Culture - Final Staph Epidermidis 03/14/21 19:25 Blood - Blood Blood Culture Gram Stain - Final 03/14/21 19:25 Blood - Blood Anaerobic Blood Culture - Final No growth in 5 days. 03/14/21 19:50 Blood - Blood Aerobic Blood Culture - Final Staph Epidermidis 03/14/21 19:50 Blood - Blood Blood Culture Gram Stain - Final 03/14/21 19:50 Blood - Blood Anaerobic Blood Culture - Final Staph Epidermidis 03/14/21 19:50 Blood - Blood Gram Stain - Final Assessment & Plan - Problems (Diagnosis) (1) Acute respiratory failure due to COVID-19 Current Visit: Yes Status: Acute Plan: Respiratory failure still requiring 10 L of high flow oxygen repeat CRP ordered
--- NOTE | 2021-03-21 14:22 | P.PN ---
Subjective Date of Service: 03/21/21 Primary Care Provider: Dr. Manley Chief Complaint: COVID-19 pneumonia Patient has no new complaint. Nursing Staff report patient looks withdrawn, indifferent and at times does not want to participate in care. Oxygen level increased to 15 L by nasal cannula Physical Examination - Vital Signs Temperature: 98.0 F Blood Pressure: 146/70 Pulse: 86 Respirations: 20 Pulse Ox (%): 89 - Physical Exam General: Alert, In no apparent distress HEENT: Mucous membr. moist/pink Neck: JVD not distended Respiratory: Crackles/rales, Other (Nonlabored breathing) Cardiovascular: No edema, Regular rate/rhythm, Normal S1 S2 Gastrointestinal: Soft and benign, Non-distended Musculoskeletal: No swelling Integumentary: No rashes, No cyanosis Neurological: Normal strength at 5/5 x4 extr Assessment And Plan - Plan Acute hypoxic respiratory failure secondary to bilateral COVID-19 pneumoniaunvaccinated Bacteremia Possible UTI Elevated troponin Diabetes mellitus type 2 with hyperglycemia Acute kidney injury superimposed on CKD 3 Hypertension Hyperlipidemia Migraines Acute hypoxic respiratory failure secondary to bilateral COVID-19 pneumoniaunvaccinated: Bacteremia UTI Continue with steroids. Pulmonology is following. Blood cultures: Coagulase-negative staph. This is likely a skin contaminant. Repeat blood culture: No growth to date. Empirically started vancomycin on 03/15. Antibiotics discontinued. UA suggestive possible UTI. Urine culture: Mixed growth. Patient briefly treated with Levaquin. May be a candidate for pulmonary rehab. Social service is assisting with arrangements for placement for pulmonary rehab. Elevated troponin: Likely secondary to COVID-19 pneumonia. Ekg without ischemic changes. Troponin trended flat. Patient is asymptomatic. Diabetes mellitus type 2 with hyperglycemia: Lantus insulin and sliding scale UMM superimposed on CKD 3: UMM improved. I suspect creatinine is currently at baseline. nephrology is following Hypertension HLD Migraines SABINE/ARB on hold given acute kidney injury Continue amlodipine and Coreg. DVT prophylaxis: Lovenox
--- NOTE | 2021-03-21 17:25 | P.PN ---
Subjective Date of Service: 03/21/21 Primary Care Provider: Dr. Manley Chief Complaint: COVID-19 pneumonia today no overnight events still on High Oxygen support Cr stable Physical exam General: AAOx3, NAD, on oxygen HEART : RRR. Normal S1,2 no murmur or rub Abd: soft, Nt Ext: no edema Skin : No rash A/P Acute kidney injury 2/2 prerenal state, on chronic kidney disease back close to baseline. SCr improved to 1.5. Continue spironolactone. [place] po fluid intake. Monitor renal panel Hypertension. BP at goal. Acute respi failure 2/2 COVID pneumonia & CHF. Continue diuretics & steroid. [place] po fluid intake as above. Low Na diet. DM2. Mngt per primary team. Physical Examination - Vital Signs Temperature: 97.5 F Blood Pressure: 132/60 Pulse: 82 Respirations: 18 Pulse Ox (%): 91
[2021-03-21] MEDS: INSULIN GLARGINE 100 UNIT/ML SQ SCH (21:00)
[2021-03-21] MEDS: MELATONIN 5 MG TABLET PO PRN (21:15)
[2021-03-21] MEDS: ATORVASTATIN 40 MG TAB PO SCH (21:15)
[2021-03-22 04:51] LABS: Absolute Lymphocytes (CBC) 0.1 K/uL (0.7-4.9); Hematocrit 25.4 % (36.0-45.0); MPV 8.6 fL (7.6-11.3); RBC Red Blood Cell Count 2.87 M/uL (3.86-4.86)
[2021-03-22 05:06] LABS: Albumin 1.3 g/dL (3.4-5.0); Potassium 4.5 mmol/L (3.5-5.1)
[2021-03-22] MEDS: THYROID 30 MG TAB PO SCH (05:28)
[2021-03-22] MEDS: INSULIN -REGULAR HUMAN 50 UNIT/0.5 ML ML SQ SCH ×4 (08:30→21:00)
[2021-03-22] MEDS: carvediloL 12.5 MG TAB PO SCH ×2 (09:00→21:58)
[2021-03-22] MEDS: SPIRONOLACTONE 25 MG TABLET PO SCH (09:00)
[2021-03-22] MEDS: TOPIRAMATE 25 MG TAB PO SCH ×2 (09:00→21:59)
[2021-03-22] MEDS: predniSONE 20 MG TAB PO SCH ×2 (09:00→21:00)
[2021-03-22] MEDS: GLUCERNA SHAKE 237 ML CAN PO SCH ×2 (09:00→21:00)
[2021-03-22] MEDS: VITAMIN D 1000 UNIT TAB PO SCH (09:00)
[2021-03-22] MEDS: ENOXAPARIN 30 MG/0.3 ML SQ SCH (09:00)
[2021-03-22] MEDS: AMLODIPINE 10 MG TAB PO SCH (09:00)
[2021-03-22] MEDS: ASPIRIN EC 81 MG TAB PO SCH (09:00)
[2021-03-22] MEDS: ROSUVASTATIN 10 MG TAB PO SCH (09:00)
--- NOTE | 2021-03-22 12:20 | P.PN ---
Subjective Date of Service: 03/22/21 Primary Care Provider: Dr. Manley Chief Complaint: COVID-19 pneumonia today no overnight events still on High Oxygen support Cr stable cont current management Physical exam General: AAOx3, NAD, on oxygen HEART : RRR. Normal S1,2 no murmur or rub Abd: soft, Nt Ext: no edema Skin : No rash A/P Acute kidney injury 2/2 prerenal state, on chronic kidney disease back close to baseline. SCr improved to 1.5. Continue spironolactone. [place] po fluid intake. Monitor renal panel Hypertension. BP at goal. Acute respi failure 2/2 COVID pneumonia & CHF. Continue diuretics & steroid. [place] po fluid intake as above. Low Na diet. DM2. Mngt per primary team. Physical Examination - Vital Signs Temperature: 98.0 F Blood Pressure: 132/66 Pulse: 88 Respirations: 20 Pulse Ox (%): 91
--- NOTE | 2021-03-22 13:57 | P.PN ---
Subjective Date of Service: 03/22/21 Primary Care Provider: Dr. Manley Chief Complaint: COVID-19 pneumonia Patient has no new complaint. No new changes from yesterday. Still on 15 L by nasal cannula Physical Examination - Vital Signs Temperature: 98.0 F Blood Pressure: 132/66 Pulse: 88 Respirations: 20 Pulse Ox (%): 91 Assessment And Plan - Plan Acute hypoxic respiratory failure secondary to bilateral COVID-19 pneumoniaunvaccinated Bacteremia Possible UTI Elevated troponin Diabetes mellitus type 2 with hyperglycemia Acute kidney injury superimposed on CKD 3 Hypertension Hyperlipidemia Migraines Acute hypoxic respiratory failure secondary to bilateral COVID-19 pneumoniaunvaccinated: Bacteremia UTI Continue with steroids. Blood cultures: Coagulase-negative staph. This is likely a skin contaminant. Repeat blood culture: No growth to date. Empirically started vancomycin on 03/15. Antibiotics discontinued. UA suggestive possible UTI. Urine culture: Mixed growth. Patient briefly treated with Levaquin. May be a candidate for pulmonary rehab. Social service is assisting with arrangements for placement for pulmonary rehab. Elevated troponin: Likely secondary to COVID-19 pneumonia. Ekg without ischemic changes. Troponin trended flat. Patient is asymptomatic. Diabetes mellitus type 2 with hyperglycemia: Lantus insulin and sliding scale UMM superimposed on CKD 3: UMM improved. I suspect creatinine is currently at baseline. nephrology is following Hypertension HLD Migraines Continue amlodipine and Coreg. Patient is currently normotensive DVT prophylaxis: Lovenox
[2021-03-22] MEDS: INSULIN GLARGINE 100 UNIT/ML SQ SCH (21:00)
[2021-03-22] MEDS: ATORVASTATIN 40 MG TAB PO SCH (21:58)
[2021-03-23] MEDS: THYROID 30 MG TAB PO SCH (06:33)
[2021-03-23] MEDS: INSULIN -REGULAR HUMAN 50 UNIT/0.5 ML ML SQ SCH ×4 (07:30→21:00)
[2021-03-23] MEDS ORDERED: predniSONE 10 MG TAB ONE (07:47)
[2021-03-23] MEDS: BENZONATATE 100 MG CAP PO PRN (08:46)
[2021-03-23] MEDS: VITAMIN D 1000 UNIT TAB PO SCH (08:46)
[2021-03-23] MEDS: AMLODIPINE 10 MG TAB PO SCH (08:47)
[2021-03-23] MEDS: ASPIRIN EC 81 MG TAB PO SCH (08:47)
[2021-03-23] MEDS: SPIRONOLACTONE 25 MG TABLET PO SCH (08:47)
[2021-03-23] MEDS: ROSUVASTATIN 10 MG TAB PO SCH (08:47)
[2021-03-23] MEDS: TOPIRAMATE 25 MG TAB PO SCH ×2 (08:48→21:40)
[2021-03-23] MEDS: GLUCERNA SHAKE 237 ML CAN PO SCH ×3 (08:48→21:00)
[2021-03-23] MEDS: carvediloL 12.5 MG TAB PO SCH ×2 (08:48→21:00)
[2021-03-23] MEDS: predniSONE 20 MG TAB PO SCH ×2 (08:50→21:40)
[2021-03-23] MEDS: ENOXAPARIN 30 MG/0.3 ML SQ SCH (08:50)
[2021-03-23] MEDS: FAMOTIDINE 20 MG/2 ML VIAL IV PRN (08:50)
[2021-03-23 10:54] LABS: Urine Blood 3+ (Negative); Urine Glucose 3+ (Negative); Urine Protein 3+ (Negative); Urine Specific Gravity 1.025 (1.005-1.030); Urine pH 5.5 (5.0-7.0)
--- NOTE | 2021-03-23 12:13 | P.PN ---
Subjective Date of Service: 03/23/21 Primary Care Provider: Dr. Manley Chief Complaint: COVID-19 pneumonia No change patient not coperative still requiring high con of O2 Review of Systems General: Weakness Respiratory: Shortness of Breath Physical Examination - Vital Signs Temperature: 97.8 F Blood Pressure: 116/65 Pulse: 74 Respirations: 26 Pulse Ox (%): 98 - Physical Exam General: Alert, In no apparent distress, Cooperative Assessment & Plan - Problems (Diagnosis) (1) Acute respiratory failure due to COVID-19 Current Visit: Yes Status: Acute Plan: May WATERS weaing Physical Therapy/CRP declining/ on PO pred labs reviewed renal function stable
--- NOTE | 2021-03-23 15:56 | P.PN ---
Subjective Date of Service: 03/23/21 Primary Care Provider: Dr. Manley Chief Complaint: COVID-19 pneumonia Patient acknowledged falling earlier this morning during transfer. She report generalized weakness. She denies any pain after the fall. No changes in oxygen requirement. She is still on 15 L by nasal cannula. Physical Examination - Vital Signs Temperature: 97.8 F Blood Pressure: 116/65 Pulse: 74 Respirations: 26 Pulse Ox (%): 98 - Physical Exam General: Alert, In no apparent distress HEENT: Mucous membr. moist/pink Neck: JVD not distended Respiratory: Normal air movement, Crackles/rales (Bilateral) Cardiovascular: Regular rate/rhythm, Normal S1 S2 Gastrointestinal: Soft and benign, Non-distended, No tenderness Musculoskeletal: No swelling, No tenderness Integumentary: No rashes Neurological: Normal strength at 5/5 x4 extr Assessment And Plan - Plan Acute hypoxic respiratory failure secondary to bilateral COVID-19 pneumoniaunvaccinated Bacteremia Possible UTI Elevated troponin Diabetes mellitus type 2 with hyperglycemia Acute kidney injury superimposed on CKD 3 Hypertension Hyperlipidemia Migraines Acute hypoxic respiratory failure secondary to bilateral COVID-19 pneumoniaunvaccinated: Bacteremia UTI Continue with steroids. Blood cultures: Coagulase-negative staph. This is likely a skin contaminant. Repeat blood culture: No growth to date. Empirically started vancomycin on 03/15. Antibiotics discontinued. UA suggested possible UTI. Urine culture: Mixed growth. Patient briefly treated with Levaquin. May be a candidate for pulmonary rehab. Social service is assisting with arrangements for placement in acute rehab for pulmonary rehab. Elevated troponin: Likely secondary to COVID-19 pneumonia. Ekg without ischemic changes. Troponin trended flat. Patient is asymptomatic. Diabetes mellitus type 2 with hyperglycemia: Lantus insulin and sliding scale UMM superimposed on CKD 3: UMM improved. I suspect creatinine is currently at baseline. nephrology is following Hypertension HLD Migraines Continue amlodipine and Coreg. Patient is currently normotensive. Fall No injury reported. Monitor. DVT prophylaxis: Lovenox
[2021-03-23] MEDS: INSULIN GLARGINE 100 UNIT/ML SQ SCH (21:00)
[2021-03-23] MEDS: ATORVASTATIN 40 MG TAB PO SCH (21:41)
--- NOTE | 2021-03-24 00:06 | PN ---
Date of Progress Note: 03/23/2021 Chief Complaint: Acute on chronic kidney injury. Review of Systems: Denies new complaints. Physical Examination: Respiratory: Normal respiratory effort. Heart: S1, S2. Impression And Plan: 1.Acute kidney injury secondary to prerenal state. The patient has underlying chronic kidney diseas e stage 3. Continue creatinine level, is improving to baseline. Recent creatinine level was 1.5. P yolanda is to continue spironolactone. Monitor electrolytes. 2.Hypertension, blood pressure controlled. 3.Acute respiratory failure secondary to COVID and congestive heart failure. Continue diuretics and steroids. 4.Diabetes mellitus per primary team. EB/MODL Voice ID: [id number] Report ID: [id number]
[2021-03-24 03:50] LABS: Absolute Lymphocytes (CBC) 0.2 K/uL (0.7-4.9); Hematocrit 22.5 % (36.0-45.0); Lymphocytes % 3.9 % (15.3-44.8); MPV 8.8 fL (7.6-11.3); RBC Red Blood Cell Count 2.55 M/uL (3.86-4.86)
[2021-03-24 04:05] LABS: C-Reactive Protein 34.7 mg/L (<3.00); Potassium 4.9 mmol/L (3.5-5.1)
[2021-03-24 04:49] LABS: Blood Morphology Comment NOT SEEN (NOT SEEN); Platelet Estimate ADEQ
[2021-03-24] MEDS: THYROID 30 MG TAB PO SCH (06:16)
--- NOTE | 2021-03-24 06:30 | P.PN ---
Date of Service: 03/24/21 Subjective: Feeling better, no acute events overnight Oxygen weaned down to 8 L nasal cannula ROS: 10 point ROS as noted above, otherwise negative Physical exam GEN: Alert, oriented HEENT: Normal conjunctiva, sclera anicteric CV: Regular rate and rhythm, no edema Pulm: Nonlabored respirations on 8L NC ABD: Soft, nontender, nondistended Integumentary: No rashes Neuro: Normal speech, normal affect Problem List Acute hypoxic respiratory failure secondary to bilateral COVID-19 pneumoniaunvaccinated Bacteremia Elevated troponin Diabetes mellitus type 2 with hyperglycemia Acute kidney injury superimposed on CKD 3 Hypertension Hyperlipidemia Migraines Anemia, iron deficiency Acute hypoxic respiratory failure secondary to bilateral COVID-19 pneumoniaunvaccinated: Bacteremia UTI Continue with steroids. Blood cultures: Coagulase-negative staph. This is likely a skin contaminant. Repeat blood culture: No growth to date. Empirically started vancomycin on 03/15. Antibiotics discontinued. UA suggested possible UTI. Urine culture: Mixed growth. Patient briefly treated with Levaquin. May be a candidate for pulmonary rehab. Social service is assisting with arrangements for placement in acute rehab for pulmonary rehab. Weaning oxygen as tolerated Elevated troponin: Likely secondary to COVID-19 pneumonia. Ekg without ischemic changes. Troponin trended flat. Patient is asymptomatic. Diabetes mellitus type 2 with hyperglycemia: Lantus insulin and sliding scale, titrate as needed for better control UMM superimposed on CKD 3: UMM initially improved, slightly worsened today, possibly dehydrated nephrology is following Hypertension HLD Migraines Continue amlodipine and Coreg. Patient is currently normotensive. Fall No injury reported. Monitor. Anemia, iron deficiency -Hemoglobin slightly downtrending, no evidence of bleeding -Check hemoglobin later today, if lower or becomes more symptomatic/hypoxic, will transfuse 1 unit VTE: lovenox Code: full Dispo: rehab in 1-2 days Time Spent Managing Pts Care (In Minutes): 35
[2021-03-24] MEDS: ENOXAPARIN 30 MG/0.3 ML SQ SCH (08:42)
[2021-03-24] MEDS: FAMOTIDINE 20 MG/2 ML VIAL IV PRN (08:42)
[2021-03-24] MEDS: VITAMIN D 1000 UNIT TAB PO SCH (08:43)
[2021-03-24] MEDS: SPIRONOLACTONE 25 MG TABLET PO SCH (08:43)
[2021-03-24] MEDS: predniSONE 20 MG TAB PO SCH ×2 (08:44→20:57)
[2021-03-24] MEDS: ASPIRIN EC 81 MG TAB PO SCH (08:44)
[2021-03-24] MEDS: ROSUVASTATIN 10 MG TAB PO SCH (08:44)
[2021-03-24] MEDS: carvediloL 12.5 MG TAB PO SCH ×2 (08:44→21:08)
[2021-03-24] MEDS: AMLODIPINE 10 MG TAB PO SCH (08:44)
[2021-03-24] MEDS: TOPIRAMATE 25 MG TAB PO SCH ×2 (08:45→20:57)
[2021-03-24] MEDS: GLUCERNA SHAKE 237 ML CAN PO SCH ×3 (08:45→20:57)
[2021-03-24] MEDS: INSULIN -REGULAR HUMAN 50 UNIT/0.5 ML ML SQ SCH ×4 (10:42→21:09)
--- NOTE | 2021-03-24 12:13 | P.PN ---
Subjective Date of Service: 03/24/21 Primary Care Provider: Dr. Manley Chief Complaint: COVID-19 pneumonia Patient seen and examined at bedside, states she is feeling well. Review of Systems 10-point ROS is otherwise unremarkable Physical Examination - Vital Signs Temperature: 97.3 F Blood Pressure: 120/60 Pulse: 82 Respirations: 20 Pulse Ox (%): 95 Assessment And Plan - Plan Physical Exam: General: Alert, In no apparent distress HEENT: Atraumatic, Normocephalic Neck: Supple Respiratory: Other (diminshed ) Cardiovascular: No edema, Regular rate/rhythm Gastrointestinal: Normal bowel sounds, Soft and benign Conclusions/Impression: Antibiotics vancomycin start: 03/15 stop: 01/16 levaquin start: 03/15 stop: 03/16 Assessment/Plan Possible Bacteremia BC obtained on 03/14 grew CONs in both aerobic bottles. Repeat showed NG@24 hr. Likely contamination--vancomycin DC on 01/16. Possible UTI UC chowed mixed christoph, patient asymptomatic, levaquin DC on 03/16. COVID 19 On supplemental O2. Continue steroid therapy. Pulm following. Anemia continue to monitor H&H DM CKD stage 3 Hypothyroidism HTN HLD -medical management per primary team Plan of care discussed with Dr. Loaiza Thank you for consultation.
--- NOTE | 2021-03-24 12:45 | P.PN ---
Subjective Date of Service: 03/24/21 Primary Care Provider: Dr. Manley Chief Complaint: COVID-19 pneumonia Subjective: No new changes, Other (reports no increase in shortness of breath.) Physical Examination - Vital Signs Temperature: 97.3 F Blood Pressure: 120/60 Pulse: 82 Respirations: 20 Pulse Ox (%): 95 - Physical Exam General: Other (appears acutely ill) HEENT: Atraumatic, Normocephalic Neck: Supple, JVD not distended Respiratory: Other (symmetric chest expansion) Cardiovascular: No rubs, No murmurs Gastrointestinal: Soft and benign, Non-distended Musculoskeletal: No clubbing Integumentary: No warmth Neurological: Normal speech, Normal tone, Other (nonfocal) Urinary: Other (no bladder distention) External genitalia: Deferred Rectal: Deferred Assessment And Plan - Plan 1. Acute kidney injury secondary to prerenal state. The patient has underlying chronic kidney disease stage 3. Serum creatinine increased from 1.5- 1.9. Patient encouraged to increase by mouth fluid intake today. Monitor renal panel. 2. Hypertension, blood pressure controlled. Continue current BP medication regimen. 3. Acute respiratory failure secondary to COVID PNA and congestive heart failure. Continue diuretics and steroids. 4. DM2. Mngt per primary team.
[2021-03-24] MEDS: ATORVASTATIN 40 MG TAB PO SCH (20:57)
[2021-03-24] MEDS ORDERED: NA CHLORIDE 0.9% 250 ML ONE (21:38)
[2021-03-24] MEDS: INSULIN GLARGINE 100 UNIT/ML SQ SCH (23:40)
[2021-03-25 03:45] LABS: Absolute Lymphocytes (CBC) 0.2 K/uL (0.7-4.9); Hematocrit 27.2 % (36.0-45.0); Lymphocytes % 2.2 % (15.3-44.8); MPV 8.5 fL (7.6-11.3); RBC Red Blood Cell Count 3.08 M/uL (3.86-4.86)
[2021-03-25 04:09] LABS: Albumin 1.2 g/dL (3.4-5.0); Bilirubin Total 0.2 mg/dL (0.2-1.0); C-Reactive Protein 21.1 mg/L (<3.00); Ferritin 1117.6 ng/mL (8-388); Potassium 4.5 mmol/L (3.5-5.1); Protein, Total 5.1 g/dL (6.4-8.2)
[2021-03-25] MEDS: THYROID 30 MG TAB PO SCH (05:22)
--- NOTE | 2021-03-25 06:39 | P.PN ---
Date of Service: 03/25/21 Subjective: no acute vents overnight patient reports doing ok today no significant change in symptoms denies any new symptoms, no worsening increased back to HFNC yesterday ROS: 10 point ROS as noted above, otherwise negative Physical exam GEN: Alert, oriented, sitting up at bedside chair HEENT: Normal conjunctiva, sclera anicteric CV: Regular rate and rhythm, no edema Pulm: Nonlabored respirations on HFNC ABD: Soft, nontender, nondistended Integumentary: No rashes Neuro: Normal speech, normal affect Problem List Acute hypoxic respiratory failure secondary to bilateral COVID-19 pneumoniaunvaccinated Elevated troponin Diabetes mellitus type 2 with hyperglycemia Acute kidney injury superimposed on CKD 3 Hypertension Hyperlipidemia Migraines Anemia, iron deficiency Acute hypoxic respiratory failure secondary to bilateral COVID-19 pneumoniaunvaccinated: UTI Continue with steroids. Blood cultures: Coagulase-negative staph. This is likely a skin contaminant. Repeat blood culture: No growth to date. Empirically started vancomycin on 03/15. Antibiotics discontinued. UA suggested possible UTI. Urine culture: Mixed growth. Patient briefly treated with Levaquin. May be a candidate for pulmonary rehab Social service is assisting with arrangements for placement in acute rehab for pulmonary rehab Weaning oxygen as tolerated, needs to be stable on lower O2 requirement Elevated troponin: Likely secondary to COVID-19 pneumonia. Ekg without ischemic changes. Troponin trended flat. Patient is asymptomatic. Diabetes mellitus type 2 with hyperglycemia: Lantus insulin and sliding scale, titrate as needed for better control UMM superimposed on CKD 3: UMM initially improved, slightly worsened today, possibly dehydrated nephrology is following Hypertension HLD Migraines Continue amlodipine and Coreg. Patient is currently normotensive. Fall No injury reported. Monitor. Anemia, iron deficiency -Hemoglobin slightly downtrending, no evidence of bleeding -transfused 1uPRBC on 03/24, responded appropriately VTE: lovenox Code: full Dispo: rehab in 2-3 days Time Spent Managing Pts Care (In Minutes): 35
[2021-03-25] MEDS: ASPIRIN EC 81 MG TAB PO SCH (08:44)
[2021-03-25] MEDS: AMLODIPINE 10 MG TAB PO SCH (08:44)
[2021-03-25] MEDS: SPIRONOLACTONE 25 MG TABLET PO SCH (08:45)
[2021-03-25] MEDS: VITAMIN D 1000 UNIT TAB PO SCH (08:45)
[2021-03-25] MEDS: INSULIN -REGULAR HUMAN 50 UNIT/0.5 ML ML SQ SCH ×4 (08:47→21:00)
[2021-03-25] MEDS: TOPIRAMATE 25 MG TAB PO SCH ×2 (08:47→21:34)
[2021-03-25] MEDS: predniSONE 20 MG TAB PO SCH ×2 (08:47→21:35)
[2021-03-25] MEDS: ENOXAPARIN 30 MG/0.3 ML SQ SCH (08:49)
[2021-03-25] MEDS: carvediloL 12.5 MG TAB PO SCH ×2 (09:00→21:00)
[2021-03-25] MEDS: ROSUVASTATIN 10 MG TAB PO SCH (09:00)
[2021-03-25] MEDS: GLUCERNA SHAKE 237 ML CAN PO SCH ×3 (09:00→21:00)
--- NOTE | 2021-03-25 09:04 | RAD REPORT ---
EXAM DESCRIPTION: RAD - Chest Single View - 03/25/2021 8:47 am CLINICAL HISTORY: worsening hypoxia COMPARISON: Chest Single View dated 03/17/2021; Chest Single View dated 03/14/2021; Chest Single View d ated 03/10/2021; Chest Single View dated 08/25/2020 FINDINGS: Lines: None. Lungs: Severe bilateral airspace disease with questionable mild increasing opacities . Pleural: No significant pleural effusions or pneumothorax. Cardiac: Cardiomegaly which is similar. Bones: No acute fractures. Other: IMPRESSION: Similar to slightly worsened severe bilateral airspace disease compatible with multifoca l pneumonia.
[2021-03-25] MEDS ORDERED: NA CHLORIDE 0.9% 1,000 ML IV SCH (12:00)
--- NOTE | 2021-03-25 12:03 | PN ---
Date of Progress Note: 03/25/2021 Subjective: The patient was admitted with COVID pneumonia. The patient had acute kidney injury and hypertension. For last couple of days, kidney function has been declined. The patient still has some shortness of breath. Physical Examination: Vital Signs: When I saw the patient; blood pressure 140/60, pulse of 78, afebrile. The patient had good urine output. Chest: Crackles bilateral. Heart: S1, S2. Systolic murmur. Abdomen: Soft, nontender. Extremities: Trace edema. Neurologic: Alert. No focality. Laboratory Data: Chest x-ray; interstitial infiltrations bilaterally with cardiomegaly. WBC 7.3, H and H 9.1/27.2. Sodium 144, potassium 4.5, bicarb 23, BUN 71 trending up, creatinine 2, GFR of 25, calcium of 8. Iron saturation of 10. Ferritin still elevated at 1100. Current Medications: The patient on include aspirin, Lovenox, amlodipine 10 mg, carvedilol 12.5, atorvastatin, pravastatin, spironolactone, Tylenol, Pepcid, Zofran, cholecalciferol. Assessment And Plan: 1. Acute kidney injury on chronic kidney disease, possible secondary to prerenal to rule out any component of rhabdomyolysis as the patient on double statins. I am going to go ahead and discontinue one of the statin. We will send for CK and uric acid and we will start the patient on gentle hydration. 2. Hypertension, controlled, optimal. 3. Respiratory failure secondary to COVID pneumonia as by primary. 4. Hypokalemia, resolved. time spend exam the patient face to face placing order discussing with the patient , rviewing data lab and radiology , discussing the case with other steam table worker inculding Nurse staff and Hospitalist 35 min MAREK/WOOD Voice ID: [id number] Report ID: [id number] MINDY
--- NOTE | 2021-03-25 12:16 | P.PN ---
Subjective Date of Service: 03/25/21 Primary Care Provider: Dr. Manley Chief Complaint: COVID-19 pneumonia Patient seen and examined at bedside, back on high flow Review of Systems 10-point ROS is otherwise unremarkable Physical Examination - Vital Signs Temperature: 97.1 F Blood Pressure: 140/60 Pulse: 78 Respirations: 20 Pulse Ox (%): 92 - Studies Laboratory Last Values WBC 2.40 K/uL (4.3-10.9) L 03/14/21 19:50 RBC 3.30 M/uL (3.86-4.86) L 03/14/21 19:50 Hgb 9.6 g/dL (12.0-15.0) L 03/14/21 19:50 Hct 29.2 % (36.0-45.0) L 03/14/21 19:50 MCV 88.4 fL (80-100) D 03/14/21 19:50 MCH 29.1 pg (27.0-35.0) 03/14/21 19:50 MCHC 32.9 g/dL (32.0-36.0) 03/14/21 19:50 RDW 13.2 % (12.1-15.2) 03/14/21 19:50 Plt Count 168 K/uL (152-406) 03/14/21 19:50 MPV 10.0 fL (7.6-11.3) 03/14/21 19:50 Neutrophils % 73.8 % (41.7-73.7) H 03/14/21 19:50 Lymphocytes % 17.1 % (15.3-44.8) 03/14/21 19:50 Monocytes % 9.0 % (3.3-12.3) 03/14/21 19:50 Eosinophils % 0.0 % (0-4.4) 03/14/21 19:50 Basophils % 0.1 % (0-1.3) 03/14/21 19:50 Absolute Neutrophils 1.8 K/uL (1.8-8.0) 03/14/21 19:50 Segmented Neutrophils 70 % (40-80) 03/14/21 19:50 Band Neutrophils 8 % (0-1) H 03/14/21 19:50 Absolute Lymphocytes 0.4 K/uL (0.7-4.9) L 03/14/21 19:50 Lymphocytes 16 % (15-42) 03/14/21 19:50 Monocytes 6 % (0-10) 03/14/21 19:50 Absolute Monocytes 0.2 K/uL (0.1-1.3) 03/14/21 19:50 Absolute Eosinophils 0.0 K/uL (0-0.5) 03/14/21 19:50 Absolute Basophils 0.0 K/uL (0-0.5) 03/14/21 19:50 Platelet Estimate Adeq 03/14/21 19:50 Morphology Comment Not seen (NOT SEEN) 03/14/21 19:50 PT 10.2 SECONDS (9.5-12.5) 03/14/21 19:50 INR 0.89 03/14/21 19:50 APTT 29.3 SECONDS (24.3-36.9) 03/14/21 19:50 D-Dimer 1113 FEUng/mL (<500) H* 03/14/21 19:50 pH 7.38 (7.35-7.45) 03/14/21 21:06 pCO2 29.3 mmHG (35-45) L 03/14/21 21:06 pO2 61.5 mmHG (75-100) L 03/14/21 21:06 HCO3 17.0 mmol/L (22-28) L 03/14/21 21:06 Base Excess -7.2 mmol/L 03/14/21 21:06 Oxyhemoglobin 84.4 % (94-97) L 03/14/21 21:06 ABG O2 Sat (Measured) 87.1 % (92-98.5) L 03/14/21 21:06 ABG Carboxyhemoglobin 1.9 % (0-1.5) H 03/14/21 21:06 ABG Methemoglobin 1.2 % (0-1.5) 03/14/21 21:06 Other Total Hgb 8.9 g/dl (12-18) L 03/14/21 21:06 Inspired O2 28.0 % 03/14/21 21:06 Sodium 135 mmol/L (136-145) L 03/14/21 19:50 Potassium 3.7 mmol/L (3.5-5.1) 03/14/21 19:50 Chloride 100 mmol/L (98-107) 03/14/21 19:50 Carbon Dioxide 19 mmol/L (21-32) L 03/14/21 19:50 BUN 43 mg/dL (7-18) H 03/14/21 19:50 Creatinine 1.99 mg/dL (0.55-1.3) H 03/14/21 19:50 Estimated GFR 26 mL/min (=/>90) L 03/14/21 19:50 Glucose 298 mg/dL (74-106) H 03/14/21 19:50 Lactic Acid 1.6 mmol/L (0.4-2.0) 03/14/21 19:50 Calcium 7.9 mg/dL (8.5-10.1) L 03/14/21 19:50 Ferritin 994.1 ng/mL (8-388) H 03/14/21 19:50 Total Bilirubin 0.3 mg/dL (0.2-1.0) 03/14/21 19:50 Direct Bilirubin < 0.1 mg/dL (0-0.2) 03/14/21 19:50 AST 32 U/L (15-37) 03/14/21 19:50 ALT 22 U/L (12-78) 03/14/21 19:50 Alkaline Phosphatase 97 U/L (45-117) 03/14/21 19:50 Rapid Troponin I 0.13 ng/mL (0.0-0.045) H 03/14/21 19:50 C-Reactive Protein 142.00 mg/L (<3.00) H 03/14/21 19:50 Serum Total Protein 6.3 g/dL (6.4-8.2) L 03/14/21 19:50 Albumin 1.7 g/dL (3.4-5.0) L 03/14/21 19:50 Globulin 4.6 g/dL (2.3-3.5) H 03/14/21 19:50 Albumin/Globulin Ratio 0.4 (1.1-1.8) L 03/14/21 19:50 Lipase 79 U/L (73-393) 03/14/21 19:50 Procalcitonin 0.97 ng/mL (<0.050) H 03/14/21 19:50 Urine pH 5.5 (5.0-7.0) 03/14/21 20:07 Ur Specific Howes 1.025 (1.005-1.030) 03/14/21 20:07 Glucose (UA)(Auto) 3+ (Negative) H 03/14/21 20:07 Urine Ketones 1+ (Negative) H 03/14/21 20:07 Urine Blood 3+ (Negative) H 03/14/21 20:07 Urine Nitrite Negative (Negative) 03/14/21 20:07 Ur Leukocyte Esterase Negative (Negative) 03/14/21 20:07 Urine RBC 5-10 /HPF (NONE SEEN) H 03/14/21 20:00 Urine WBC 5-10 /HPF (<5) H 03/14/21 20:00 Ur Squamous Epith Cells 5-10 /HPF (NONE SEEN) H 03/14/21 20:00 Amorphous Sediment 1+ /HPF (NONE SEEN) 03/14/21 20:00 Urine Bacteria >50 /HPF (<20) H 03/14/21 20:00 Fine Granular Casts 0-5 /LPF (NONE SEEN) 03/14/21 20:00 Coarse Granular Casts 0-5 /LPF (NONE SEEN) 03/14/21 20:00 Urine Mucus 2+ /HPF (NONE SEEN) 03/14/21 20:00 Urine Culture Reflexed Reflexed 03/14/21 20:00 Urine Total Protein 3+ (Negative) H 03/14/21 20:07 Acetone Level Small (NEG) H 03/14/21 19:50 Influenza Type A RNA Negative (NEGATIVE) 03/14/21 20:00 Influenza Type B RNA Negative (NEGATIVE) 03/14/21 20:00 SARS-CoV-2 RNA (RT-PCR) Positive (NEGATIVE) A 03/14/21 20:00 Assessment And Plan - Plan Physical Exam: General: Alert, In no apparent distress HEENT: Atraumatic, Normocephalic Neck: Supple Respiratory: Other (diminshed ) Cardiovascular: No edema, Regular rate/rhythm Gastrointestinal: Normal bowel sounds, Soft and benign Conclusions/Impression: Antibiotics vancomycin start: 03/15 stop: 01/16 levaquin start: 03/15 stop: 03/16 Assessment/Plan Possible Bacteremia BC obtained on 03/14 grew CONs in both aerobic bottles. Repeat showed NG@24 hr. Likely contamination--vancomycin DC on 01/16. Possible UTI UC chowed mixed christoph, patient asymptomatic, levaquin DC on 03/16. COVID 19 On supplemental O2. Continue steroid therapy. Pulm following. Anemia continue to monitor H&H DM CKD stage 3 Hypothyroidism HTN HLD -medical management per primary team Plan of care discussed with Dr. Loaiza Thank you for consultation.
[2021-03-25] MEDS: INSULIN GLARGINE 100 UNIT/ML SQ SCH (21:00)
[2021-03-25] MEDS: ATORVASTATIN 40 MG TAB PO SCH (21:35)
[2021-03-26 03:42] LABS: MPV 8.3 fL (7.6-11.3); RBC Red Blood Cell Count 3.17 M/uL (3.86-4.86)
[2021-03-26 04:05] LABS: Albumin 1.2 g/dL (3.4-5.0); C-Reactive Protein 13.8 mg/L (<3.00); Potassium 4.3 mmol/L (3.5-5.1); Uric Acid 7.7 mg/dL (2.6-6.0)
--- NOTE | 2021-03-26 06:05 | P.PN ---
Date of Service: 03/26/21 Subjective: feels about the same as yesterday, denies worsening of symptoms slept ok appetite maybe slightly better. worked with PT yesterday no new symptoms/concerns ROS: 10 point ROS as noted above, otherwise negative Physical exam GEN: Alert, oriented HEENT: Normal conjunctiva, sclera anicteric CV: Regular rate and rhythm, no edema Pulm: Nonlabored respirations on HFNC ABD: Soft, nontender, nondistended Neuro: Normal speech, normal affect Problem List Acute hypoxic respiratory failure secondary to bilateral COVID-19 pneumoniaunvaccinated Elevated troponin Diabetes mellitus type 2 with hyperglycemia Acute kidney injury superimposed on CKD 3 Hypertension Hyperlipidemia Migraines Anemia, iron deficiency Acute hypoxic respiratory failure secondary to bilateral COVID-19 pneumoniaunvaccinated: UTI Continue with steroids. Blood cultures: Coagulase-negative staph. likely a skin contaminant. Repeat blood culture: No growth to date. Empirically started vancomycin on 03/15. Antibiotics discontinued. UA suggested possible UTI. Urine culture: Mixed growth. Patient briefly treated with Levaquin. labile oxygen requirement. currently on HFNC May be a candidate for pulmonary rehab Social service is assisting with arrangements for placement in acute rehab for pulmonary rehab Weaning oxygen as tolerated, needs to be stable on lower O2 requirement Elevated troponin: Likely secondary to COVID-19 pneumonia., Ekg without ischemic changes. Troponin trended flat. Patient is asymptomatic. DM 2 with hyperglycemia: Lantus insulin and sliding scale, titrate as needed for better control UMM superimposed on CKD 3: UMM initially improved, slightly worsened yesterday, possibly dehydrated nephrology consulted Hypertension HLD Migraines Continue amlodipine and Coreg. Patient is currently normotensive. Fall No injury reported. PT working with patient Anemia, iron deficiency -Hemoglobin was slightly downtrending, no evidence of bleeding -transfused 1uPRBC on 03/24, responded appropriately, stable VTE: lovenox Code: full Dispo: possible rehab once stable on lower O2 requirement Time Spent Managing Pts Care (In Minutes): 35
[2021-03-26] MEDS: INSULIN -REGULAR HUMAN 50 UNIT/0.5 ML ML SQ SCH ×4 (07:30→21:52)
[2021-03-26] MEDS: GLUCERNA SHAKE 237 ML CAN PO SCH ×3 (09:00→21:00)
[2021-03-26] MEDS: carvediloL 12.5 MG TAB PO SCH ×2 (09:08→21:50)
[2021-03-26] MEDS: VITAMIN D 1000 UNIT TAB PO SCH (09:08)
[2021-03-26] MEDS: ASPIRIN EC 81 MG TAB PO SCH (09:08)
[2021-03-26] MEDS: THYROID 30 MG TAB PO SCH (09:10)
[2021-03-26] MEDS: TOPIRAMATE 25 MG TAB PO SCH ×2 (09:10→21:50)
[2021-03-26] MEDS: ENOXAPARIN 30 MG/0.3 ML SQ SCH (09:11)
[2021-03-26] MEDS: predniSONE 20 MG TAB PO SCH ×2 (09:11→21:51)
[2021-03-26] MEDS: AMLODIPINE 10 MG TAB PO SCH (09:11)
--- NOTE | 2021-03-26 12:48 | P.PN ---
Subjective Date of Service: 03/26/21 Primary Care Provider: Dr. Manley Chief Complaint: COVID-19 pneumonia Patient seen and examined at bedside, states she is feeling well Review of Systems 10-point ROS is otherwise unremarkable Physical Examination - Vital Signs Temperature: 97.8 F Blood Pressure: 134/61 Pulse: 75 Respirations: 18 Pulse Ox (%): 90 - Studies Laboratory Last Values WBC 2.40 K/uL (4.3-10.9) L 03/14/21 19:50 RBC 3.30 M/uL (3.86-4.86) L 03/14/21 19:50 Hgb 9.6 g/dL (12.0-15.0) L 03/14/21 19:50 Hct 29.2 % (36.0-45.0) L 03/14/21 19:50 MCV 88.4 fL (80-100) D 03/14/21 19:50 MCH 29.1 pg (27.0-35.0) 03/14/21 19:50 MCHC 32.9 g/dL (32.0-36.0) 03/14/21 19:50 RDW 13.2 % (12.1-15.2) 03/14/21 19:50 Plt Count 168 K/uL (152-406) 03/14/21 19:50 MPV 10.0 fL (7.6-11.3) 03/14/21 19:50 Neutrophils % 73.8 % (41.7-73.7) H 03/14/21 19:50 Lymphocytes % 17.1 % (15.3-44.8) 03/14/21 19:50 Monocytes % 9.0 % (3.3-12.3) 03/14/21 19:50 Eosinophils % 0.0 % (0-4.4) 03/14/21 19:50 Basophils % 0.1 % (0-1.3) 03/14/21 19:50 Absolute Neutrophils 1.8 K/uL (1.8-8.0) 03/14/21 19:50 Segmented Neutrophils 70 % (40-80) 03/14/21 19:50 Band Neutrophils 8 % (0-1) H 03/14/21 19:50 Absolute Lymphocytes 0.4 K/uL (0.7-4.9) L 03/14/21 19:50 Lymphocytes 16 % (15-42) 03/14/21 19:50 Monocytes 6 % (0-10) 03/14/21 19:50 Absolute Monocytes 0.2 K/uL (0.1-1.3) 03/14/21 19:50 Absolute Eosinophils 0.0 K/uL (0-0.5) 03/14/21 19:50 Absolute Basophils 0.0 K/uL (0-0.5) 03/14/21 19:50 Platelet Estimate Adeq 03/14/21 19:50 Morphology Comment Not seen (NOT SEEN) 03/14/21 19:50 PT 10.2 SECONDS (9.5-12.5) 03/14/21 19:50 INR 0.89 03/14/21 19:50 APTT 29.3 SECONDS (24.3-36.9) 03/14/21 19:50 D-Dimer 1113 FEUng/mL (<500) H* 03/14/21 19:50 pH 7.38 (7.35-7.45) 03/14/21 21:06 pCO2 29.3 mmHG (35-45) L 03/14/21 21:06 pO2 61.5 mmHG (75-100) L 03/14/21 21:06 HCO3 17.0 mmol/L (22-28) L 03/14/21 21:06 Base Excess -7.2 mmol/L 03/14/21 21:06 Oxyhemoglobin 84.4 % (94-97) L 03/14/21 21:06 ABG O2 Sat (Measured) 87.1 % (92-98.5) L 03/14/21 21:06 ABG Carboxyhemoglobin 1.9 % (0-1.5) H 03/14/21 21:06 ABG Methemoglobin 1.2 % (0-1.5) 03/14/21 21:06 Other Total Hgb 8.9 g/dl (12-18) L 03/14/21 21:06 Inspired O2 28.0 % 03/14/21 21:06 Sodium 135 mmol/L (136-145) L 03/14/21 19:50 Potassium 3.7 mmol/L (3.5-5.1) 03/14/21 19:50 Chloride 100 mmol/L (98-107) 03/14/21 19:50 Carbon Dioxide 19 mmol/L (21-32) L 03/14/21 19:50 BUN 43 mg/dL (7-18) H 03/14/21 19:50 Creatinine 1.99 mg/dL (0.55-1.3) H 03/14/21 19:50 Estimated GFR 26 mL/min (=/>90) L 03/14/21 19:50 Glucose 298 mg/dL (74-106) H 03/14/21 19:50 Lactic Acid 1.6 mmol/L (0.4-2.0) 03/14/21 19:50 Calcium 7.9 mg/dL (8.5-10.1) L 03/14/21 19:50 Ferritin 994.1 ng/mL (8-388) H 03/14/21 19:50 Total Bilirubin 0.3 mg/dL (0.2-1.0) 03/14/21 19:50 Direct Bilirubin < 0.1 mg/dL (0-0.2) 03/14/21 19:50 AST 32 U/L (15-37) 03/14/21 19:50 ALT 22 U/L (12-78) 03/14/21 19:50 Alkaline Phosphatase 97 U/L (45-117) 03/14/21 19:50 Rapid Troponin I 0.13 ng/mL (0.0-0.045) H 03/14/21 19:50 C-Reactive Protein 142.00 mg/L (<3.00) H 03/14/21 19:50 Serum Total Protein 6.3 g/dL (6.4-8.2) L 03/14/21 19:50 Albumin 1.7 g/dL (3.4-5.0) L 03/14/21 19:50 Globulin 4.6 g/dL (2.3-3.5) H 03/14/21 19:50 Albumin/Globulin Ratio 0.4 (1.1-1.8) L 03/14/21 19:50 Lipase 79 U/L (73-393) 03/14/21 19:50 Procalcitonin 0.97 ng/mL (<0.050) H 03/14/21 19:50 Urine pH 5.5 (5.0-7.0) 03/14/21 20:07 Ur Specific [place] 1.025 (1.005-1.030) 03/14/21 20:07 Glucose (UA)(Auto) 3+ (Negative) H 03/14/21 20:07 Urine Ketones 1+ (Negative) H 03/14/21 20:07 Urine Blood 3+ (Negative) H 03/14/21 20:07 Urine Nitrite Negative (Negative) 03/14/21 20:07 Ur Leukocyte Esterase Negative (Negative) 03/14/21 20:07 Urine RBC 5-10 /HPF (NONE SEEN) H 03/14/21 20:00 Urine WBC 5-10 /HPF (<5) H 03/14/21 20:00 Ur Squamous Epith Cells 5-10 /HPF (NONE SEEN) H 03/14/21 20:00 Amorphous Sediment 1+ /HPF (NONE SEEN) 03/14/21 20:00 Urine Bacteria >50 /HPF (<20) H 03/14/21 20:00 Fine Granular Casts 0-5 /LPF (NONE SEEN) 03/14/21 20:00 Coarse Granular Casts 0-5 /LPF (NONE SEEN) 03/14/21 20:00 Urine Mucus 2+ /HPF (NONE SEEN) 03/14/21 20:00 Urine Culture Reflexed Reflexed 03/14/21 20:00 Urine Total Protein 3+ (Negative) H 03/14/21 20:07 Acetone Level Small (NEG) H 03/14/21 19:50 Influenza Type A RNA Negative (NEGATIVE) 03/14/21 20:00 Influenza Type B RNA Negative (NEGATIVE) 03/14/21 20:00 SARS-CoV-2 RNA (RT-PCR) Positive (NEGATIVE) A 03/14/21 20:00 Assessment And Plan - Plan Physical Exam: General: Alert, In no apparent distress HEENT: Atraumatic, Normocephalic Neck: Supple Respiratory: Other (diminshed ) Cardiovascular: No edema, Regular rate/rhythm Gastrointestinal: Normal bowel sounds, Soft and benign Conclusions/Impression: Antibiotics vancomycin start: 03/15 stop: 01/16 levaquin start: 03/15 stop: 03/16 Assessment/Plan Possible Bacteremia BC obtained on 03/14 grew CONs in both aerobic bottles. Repeat showed NG@24 hr. Likely contamination--vancomycin DC on 01/16. Possible UTI UC chowed mixed christoph, patient asymptomatic, levaquin DC on 03/16. COVID 19 On supplemental O2. Continue steroid therapy. Pulm following. Anemia continue to monitor H&H DM CKD stage 3 Hypothyroidism HTN HLD -medical management per primary team Plan of care discussed with Dr. Loaiza Thank you for consultation.
--- NOTE | 2021-03-26 13:09 | PN ---
Date of Progress Note: 03/26/2021 Subjective: The patient was admitted with COVID pneumonia, acute kidney injury secondary to prerenal . Yesterday, we started the patient on IV fluid. Kidney function is slightly better. Physical Examination: Vital Signs: Blood pressure 140/67, pulse of 84, afebrile. Chest: Faint thrills bilateral. Heart: S1, S2 regular. Abdomen: Soft, nontender. Extremities: Trace edema. Neurologic: Alert. No focality. Laboratory Data: H and H 9.04/03. Sodium 141, potassium 4.3, bicarb 23, BUN 64, creatinine 1.9, GFR 27, calcium 7.9, phosphorus of 3. Current Medications: The patient on include; 1.Normal saline at 50. 2.Aspirin. 3.Lovenox. 4.Amlodipine 10 mg. 5.Carvedilol 12.5. 6.Pepcid. 7.Thyroid supplement. 8.Melatonin. 9.Benzonatate. 10.Cholecalciferol. Assessment And Plan: 1.Acute kidney injury secondary to prerenal. Continues to recover. We will continue IV fluid. Orlando nieto holding spironolactone. 2.Hypertension, controlled optimal. Continue current treatment. 3.Hypokalemia, resolved. 4.COVID pneumonia as by primary. MAREK/WOOD Voice ID: [id number] Report ID: [id number]
[2021-03-26] MEDS: ATORVASTATIN 40 MG TAB PO SCH (21:51)
[2021-03-26] MEDS: INSULIN GLARGINE 100 UNIT/ML SQ SCH (21:53)
--- NOTE | 2021-03-27 05:36 | P.PN ---
Subjective Date of Service: 03/27/21 Primary Care Provider: Dr. Manley Chief Complaint: COVID-19 pneumonia Subjective: No new changes Physical Examination - Vital Signs Temperature: 98.1 F Blood Pressure: 132/59 Pulse: 79 Respirations: 19 Pulse Ox (%): 95 - Physical Exam General: Other (acutely ill) HEENT: Atraumatic, Normocephalic Neck: Supple, JVD not distended Respiratory: Other (Symmetric chest expansion) Cardiovascular: No rubs, No murmurs Gastrointestinal: Soft and benign, No guarding Musculoskeletal: No clubbing Integumentary: No warmth Neurological: Normal tone Urinary: Other (no bladder distention) External genitalia: Deferred Rectal: Deferred Assessment And Plan - Plan 1. Acute kidney injury secondary to prerenal state. The patient has underlying chronic kidney disease stage 3. Serum creatinine downtrended to 1.8 today. Patient encouraged to increase by mouth fluid intake today. Monitor renal panel. 2. Hypertension, blood pressure controlled. Continue current BP medication regimen. 3. Acute respiratory failure secondary to COVID PNA and congestive heart failure. Continue diuretics and steroids. 4. DM2. Mngt per primary team.
[2021-03-27] MEDS: THYROID 30 MG TAB PO SCH (05:52)
[2021-03-27 05:59] LABS: Albumin 1.3 g/dL (3.4-5.0); Phosphorus 3.1 mg/dL (2.5-4.9); Potassium 4.5 mmol/L (3.5-5.1)
--- NOTE | 2021-03-27 06:03 | P.PN ---
Date of Service: 03/27/21 Subjective: no acute events overnight no new symptoms feels about the same, maybe slightly better ROS: 10 point ROS as noted above, otherwise negative Physical exam GEN: Alert, oriented HEENT: Normal conjunctiva, sclera anicteric CV: Regular rate and rhythm, no edema Pulm: Nonlabored respirations on HFNC ABD: Soft, nontender, nondistended Neuro: Normal speech, normal affect Problem List Acute hypoxic respiratory failure secondary to bilateral COVID-19 pneumoniaunvaccinated Elevated troponin Diabetes mellitus type 2 with hyperglycemia Acute kidney injury superimposed on CKD 3 Hypertension Hyperlipidemia Migraines Anemia, iron deficiency Acute hypoxic respiratory failure secondary to bilateral COVID-19 pneumoniaunvaccinated: UTI Continue with steroids. Blood cultures: Coagulase-negative staph. likely a skin contaminant. Repeat blood culture: No growth to date. Empirically started vancomycin on 03/15. Antibiotics discontinued. UA suggested possible UTI. Urine culture: Mixed growth. Patient briefly treated with Levaquin. labile oxygen requirement. currently on HFNC May be a candidate for pulmonary rehab / LTAC Social service is assisting with arrangements for placement in acute rehab for pulmonary rehab vs LTAC Weaning oxygen as tolerated, needs to be stable on lower O2 requirement Elevated troponin: Likely secondary to COVID-19 pneumonia., Ekg without ischemic changes. Troponin trended flat. Patient is asymptomatic. DM 2 with hyperglycemia: Lantus insulin and sliding scale, titrate as needed for better control UMM superimposed on CKD 3: improving nephrology following Hypertension HLD Migraines Continue amlodipine and Coreg. Patient is currently normotensive. Fall No injury reported. PT working with patient Anemia, iron deficiency -Hemoglobin was slightly downtrending, no evidence of bleeding -transfused 1uPRBC on 03/24, responded appropriately, stable VTE: lovenox Code: full Dispo: possible rehab once stable on lower O2 requirement vs LTAC Time Spent Managing Pts Care (In Minutes): 35
[2021-03-27] MEDS: INSULIN -REGULAR HUMAN 50 UNIT/0.5 ML ML SQ SCH ×4 (07:30→20:32)
[2021-03-27] MEDS: ENOXAPARIN 30 MG/0.3 ML SQ SCH (08:30)
[2021-03-27] MEDS: carvediloL 12.5 MG TAB PO SCH ×2 (08:31→20:30)
[2021-03-27] MEDS: TOPIRAMATE 25 MG TAB PO SCH ×2 (08:31→20:30)
[2021-03-27] MEDS: ASPIRIN EC 81 MG TAB PO SCH (08:31)
[2021-03-27] MEDS: AMLODIPINE 10 MG TAB PO SCH (08:31)
[2021-03-27] MEDS: BENZONATATE 100 MG CAP PO PRN (08:32)
[2021-03-27] MEDS: VITAMIN D 1000 UNIT TAB PO SCH (08:32)
[2021-03-27] MEDS: predniSONE 20 MG TAB PO SCH ×2 (08:32→20:30)
[2021-03-27] MEDS: GLUCERNA SHAKE 237 ML CAN PO SCH ×3 (08:33→20:32)
--- NOTE | 2021-03-27 11:20 | P.PN ---
Subjective Date of Service: 03/27/21 Primary Care Provider: Dr. Manley Chief Complaint: COVID-19 pneumonia Patient is steadily improving oxygen requirements are declining he is feeling better Review of Systems General: Weakness Respiratory: Shortness of Breath Physical Examination - Vital Signs Temperature: 97.9 F Blood Pressure: 123/66 Pulse: 72 Respirations: 24 Pulse Ox (%): 95 - Physical Exam General: Alert, In no apparent distress, Mild distress Respiratory: Clear to auscultation bilaterally, Normal air movement Assessment & Plan - Problems (Diagnosis) (1) Acute respiratory failure due to COVID-19 Current Visit: Yes Status: Acute Plan: Respiratory failure from coronavirus patient is clinically improving I have contacted drug rep from [facility] see if he can titrate her for high flow oxygen at home using [employer] information sent to the social services aide she is feeling a little weak on the whole improvement fully will be able to discharge in a few days apparently she was 94% on 65% FiO2
--- NOTE | 2021-03-27 12:12 | P.PN ---
Subjective Date of Service: 03/27/21 Primary Care Provider: Dr. Malney Chief Complaint: COVID-19 pneumonia Patient seen and examined at bedside, no acute events Review of Systems 10-point ROS is otherwise unremarkable Physical Examination - Vital Signs Temperature: 97.9 F Blood Pressure: 123/66 Pulse: 72 Respirations: 24 Pulse Ox (%): 95 - Studies Active Medications Acetaminophen (Acetaminophen 500 Mg Tab) 500 mg PO Q4HP PRN PRN Reason: TEMP > 100' F Last Admin: 03/19/21 20:12 Dose: 500 mg Documented by: Amlodipine Besylate (Amlodipine 10 Mg Tab) 10 mg PO DAILY [facility] Last Admin: 03/27/21 08:31 Dose: 10 mg Documented by: Aspirin (Aspirin Ec 81 Mg Tab) 81 mg PO DAILY [facility] Last Admin: 03/27/21 08:31 Dose: 81 mg Documented by: Atorvastatin Calcium (Atorvastatin 40 Mg Tab) 40 mg PO BEDTIME [facility] Last Admin: 03/26/21 21:51 Dose: 40 mg Documented by: Benzonatate (Benzonatate 100 Mg Cap) 100 mg PO TID PRN PRN Reason: COUGH Last Admin: 03/27/21 08:32 Dose: 100 mg Documented by: Carvedilol (Carvedilol 12.5 Mg Tab) 12.5 mg PO BID [facility] Last Admin: 03/27/21 08:31 Dose: 12.5 mg Documented by: Cholecalciferol (Vitamin D 1000 Unit Tab) 4,000 unit PO DAILY [facility] Last Admin: 03/27/21 08:32 Dose: 4,000 unit Documented by: Enoxaparin Sodium (Enoxaparin 30 Mg/0.3 Ml) 30 mg SQ DAILY [facility] Last Admin: 03/27/21 08:30 Dose: 30 mg Documented by: Enteral Nutritional Formula (Glucerna Shake 237 Ml Can) 237 ml PO TID [facility] Last Admin: 03/27/21 08:33 Dose: 237 ml Documented by: Famotidine (Famotidine 20 Mg/2 Ml Vial) 20 mg IV BIDP PRN; Protocol PRN Reason: INDIGESTION Last Admin: 03/24/21 08:42 Dose: 20 mg Documented by: Insulin Glargine (Insulin Glargine 100 Unit/Ml) 5 unit SQ BEDTIME [facility] Last Admin: 03/26/21 21:53 Dose: 5 unit Documented by: Insulin Human Regular (Insulin -Regular Human 50 Unit/0.5 Ml Ml) 0 unit SQ ACHS [facility]; Protocol Last Admin: 03/27/21 12:04 Dose: 3 unit Documented by: Melatonin (Melatonin 5 Mg Tablet) 5 mg PO BEDTIME PRN PRN PRN Reason: INSOMNIA Last Admin: 03/21/21 21:15 Dose: 5 mg Documented by: Ondansetron HCl (Ondansetron 4 Mg/2 Ml Vial) 4 mg IV Q6HP PRN PRN Reason: NAUSEA / VOMITING Last Admin: 03/20/21 08:24 Dose: 4 mg Documented by: Prednisone (Prednisone 20 Mg Tab) 20 mg PO BID [facility] Last Admin: 03/27/21 08:32 Dose: 20 mg Documented by: Sodium Chloride (Flush Normal Saline 10 Ml) 10 ml IV BID [facility] Last Admin: 03/27/21 08:33 Dose: 10 ml Documented by: Thyroid (Thyroid 30 Mg Tab) 30 mg PO DAILY@0600 [facility] Last Admin: 03/27/21 05:52 Dose: 30 mg Documented by: Topiramate (Topiramate 25 Mg Tab) 25 mg PO BID [facility] Last Admin: 03/27/21 08:31 Dose: 25 mg Documented by: Assessment And Plan - Plan Physical Exam: General: Alert, In no apparent distress HEENT: Atraumatic, Normocephalic Neck: Supple Respiratory: Other (diminshed ) Cardiovascular: No edema, Regular rate/rhythm Gastrointestinal: Normal bowel sounds, Soft and benign Conclusions/Impression: Antibiotics vancomycin start: 03/15 stop: 01/16 levaquin start: 03/15 stop: 03/16 Assessment/Plan Possible Bacteremia BC obtained on 03/14 grew CONs in both aerobic bottles. Repeat showed NG@24 hr. Likely contamination--vancomycin DC on 01/16. Possible UTI UC chowed mixed christoph, patient asymptomatic, levaquin DC on 03/16. COVID 19 On supplemental O2. Continue steroid therapy. Pulm following. Anemia continue to monitor H&H DM CKD stage 3 Hypothyroidism HTN HLD -medical management per primary team Plan of care discussed with Dr. Loaiza Thank you for consultation.
[2021-03-27] MEDS: ATORVASTATIN 40 MG TAB PO SCH (20:30)
[2021-03-27] MEDS: ACETAMINOPHEN 500 MG TAB PO PRN (20:31)
[2021-03-27] MEDS: INSULIN GLARGINE 100 UNIT/ML SQ SCH (20:31)
[2021-03-28 04:00] LABS: Hematocrit 27.8 % (36.0-45.0); RBC Red Blood Cell Count 3.13 M/uL (3.86-4.86)
[2021-03-28 04:06] LABS: Albumin 1.3 g/dL (3.4-5.0); Phosphorus 3.7 mg/dL (2.5-4.9); Potassium 4.4 mmol/L (3.5-5.1)
[2021-03-28] MEDS: THYROID 30 MG TAB PO SCH (05:41)
--- NOTE | 2021-03-28 06:19 | P.PN ---
Date of Service: 03/28/21 Subjective: Improved states she feels about the same, may be increased appetite now that family is bringing food from home ROS: 10 point ROS as noted above, otherwise negative Physical exam GEN: Alert, oriented HEENT: Normal conjunctiva, sclera anicteric CV: Regular rate and rhythm, no edema Pulm: Nonlabored respirations on 10L NC ABD: Soft, nontender, nondistended Neuro: Normal speech, normal affect Problem List Acute hypoxic respiratory failure secondary to bilateral COVID-19 pneumoniaunvaccinated troponin leak secondary to Covid pneumonia Diabetes mellitus type 2 with hyperglycemia Acute kidney injury superimposed on CKD 3 Hypertension Hyperlipidemia Migraines Anemia, iron deficiency Acute hypoxic respiratory failure secondary to bilateral COVID-19 pneumoniaunvaccinated: UTI Continue with steroids. CONS in blood: skin contaminant, repeat blood cultures: negative. Empiric vanc dc'd UA with bacteruria. Urine culture: Mixed growth. Patient briefly treated with Levaquin. May be a candidate for pulmonary rehab / LTAC Social service is assisting with arrangements for placement in acute rehab for pulmonary rehab vs LTAC Weaning oxygen as tolerated, needs to be stable on lower O2 requirement Elevated troponin: Likely secondary to COVID-19 pneumonia., Ekg without ischemic changes. Troponin trended flat. Patient is asymptomatic. DM 2 with hyperglycemia: Lantus insulin and sliding scale, titrate as needed for better control UMM superimposed on CKD 3: improving nephrology following Hypertension HLD Migraines Continue amlodipine and Coreg. Patient is currently normotensive. Fall No injury reported. PT working with patient Anemia, iron deficiency -Hemoglobin was slightly downtrending, no evidence of bleeding -transfused 1uPRBC on 03/24, responded appropriately, stable -O2 requirement decreased VTE: lovenox Code: full Dispo: possible rehab once stable on lower O2 requirement vs LTAC Time Spent Managing Pts Care (In Minutes): 35
[2021-03-28] MEDS: GLUCERNA SHAKE 237 ML CAN PO SCH ×3 (09:00→21:00)
[2021-03-28] MEDS: INSULIN -REGULAR HUMAN 50 UNIT/0.5 ML ML SQ SCH ×4 (10:04→21:17)
[2021-03-28] MEDS: VITAMIN D 1000 UNIT TAB PO SCH (10:05)
[2021-03-28] MEDS: ENOXAPARIN 30 MG/0.3 ML SQ SCH (10:05)
[2021-03-28] MEDS: TOPIRAMATE 25 MG TAB PO SCH ×2 (10:06→21:18)
[2021-03-28] MEDS: ASPIRIN EC 81 MG TAB PO SCH (10:06)
[2021-03-28] MEDS: predniSONE 20 MG TAB PO SCH ×2 (10:06→21:18)
[2021-03-28] MEDS: AMLODIPINE 10 MG TAB PO SCH (10:06)
[2021-03-28] MEDS: ACETAMINOPHEN 500 MG TAB PO PRN (10:07)
[2021-03-28] MEDS: carvediloL 12.5 MG TAB PO SCH ×2 (10:07→21:18)
--- NOTE | 2021-03-28 11:11 | P.PN ---
Subjective Date of Service: 03/28/21 Primary Care Provider: Dr. Manley Chief Complaint: COVID-19 pneumonia Patient is doing much better down to 8 L of nasal cannula oxygen still feeling weak and short of breath Review of Systems General: Weakness Respiratory: Shortness of Breath Physical Examination - Vital Signs Temperature: 97.4 F Blood Pressure: 130/68 Pulse: 83 Respirations: 24 Pulse Ox (%): 93 - Physical Exam General: Alert, Oriented x3, Mild distress Neck: No Thyromegaly Respiratory: Diminished Assessment & Plan - Problems (Diagnosis) (1) Acute respiratory failure due to COVID-19 Current Visit: Yes Status: Acute Plan: Patient has improved significantly plan to titrate sat down to 4 L possible discharge home O2 ordered vital signs stable medication and labs reviewed renal function is improving Discharge Plan: Home Plan to discharge in: 48 Hours
[2021-03-28] MEDS: INSULIN GLARGINE 100 UNIT/ML SQ SCH (21:00)
[2021-03-28] MEDS: ATORVASTATIN 40 MG TAB PO SCH (21:18)
[2021-03-28] MEDS: BENZONATATE 100 MG CAP PO PRN (21:18)
--- NOTE | 2021-03-28 21:26 | PN ---
Date of Progress Note: 03/28/2021 Chief Complaint: Acute kidney injury secondary to prerenal state. Subjective: Renal function has improved over last several days. Creatinine level is gradually impro ving in response to hydration. Patient tolerates p.o. intake. Patient has COVID pneumonia. Review of Systems: Unobtainable. Physical Examination: LUNGS: Diminished breath sounds at bases. HEART: S1, S2. ABDOMEN: Soft, benign. EXTREMITIES: Slight edema. Impression And Plan: 1.Acute kidney injury secondary to prerenal state. There is underlying chronic kidney disease stage 3 secondary to nephrosclerosis. Serum creatinine is improving to 1.8. Patient is encouraged to inc rease p.o. fluid intake. 2.Acute renal failure secondary to COVID pneumonia and congestive heart failure. Continue diuretics and steroids. 3.Cardiorenal syndrome. Continue diuretics. Monitor fluid balance and electrolytes. 4.Diabetes mellitus. Continue insulin per primary team as needed. 5.Hypertension. Blood pressure control. Continue current blood pressure medication. TRUNG/JHOANAL Voice ID: [id number] Report ID: [id number]
[2021-03-29 04:10] LABS: Albumin 1.3 g/dL (3.4-5.0); Phosphorus 3.5 mg/dL (2.5-4.9); Potassium 4.1 mmol/L (3.5-5.1)
--- NOTE | 2021-03-29 06:11 | P.PN ---
Date of Service: 03/29/21 Subjective: Improving, she states she feels about the same Appetite improving Hasn't walked much, feels very weak ROS: 10 point ROS as noted above, otherwise negative Physical exam GEN: Alert, oriented HEENT: Normal conjunctiva, sclera anicteric CV: Regular rate and rhythm, no edema Pulm: Nonlabored respirations on 10L NC ABD: Soft, nontender, nondistended Neuro: Normal speech, normal affect Problem List Acute hypoxic respiratory failure secondary to bilateral COVID-19 pneumoniaunvaccinated troponin leak secondary to Covid pneumonia Diabetes mellitus type 2 with hyperglycemia Acute kidney injury superimposed on CKD 3 Hypertension Hyperlipidemia Migraines Anemia, iron deficiency Debility Acute hypoxic respiratory failure secondary to bilateral COVID-19 pneumoniaunvaccinated: UTI Continue steroids. CONS in blood: skin contaminant, repeat blood cultures: negative. Empiric vanc dc'd UA with bacteruria. Urine culture: Mixed growth. Patient briefly treated with Levaquin. May be a candidate for pulmonary rehab / LTAC Social service is assisting with arrangements for placement in acute rehab for pulmonary rehab vs LTAC Weaning oxygen as tolerated, needs to be stable on lower O2 requirement Elevated troponin: Likely secondary to COVID-19 pneumonia., Ekg without ischemic changes. Troponin trended flat. Patient is asymptomatic. DM 2 with hyperglycemia: Lantus insulin and sliding scale, titrate as needed for better control UMM superimposed on CKD 3: improving nephrology following Hypertension HLD Migraines Continue amlodipine and Coreg. Patient is currently normotensive. Fall No injury reported. PT working with patient Anemia, iron deficiency -Hemoglobin was slightly downtrending, no evidence of bleeding -transfused 1uPRBC on 03/24, responded appropriately, stable -O2 requirement decreased VTE: lovenox Code: full Dispo: possible rehab once stable on lower O2 requirement vs LTAC Time Spent Managing Pts Care (In Minutes): 35
[2021-03-29] MEDS: INSULIN -REGULAR HUMAN 50 UNIT/0.5 ML ML SQ SCH ×4 (07:30→20:48)
[2021-03-29] MEDS: GLUCERNA SHAKE 237 ML CAN PO SCH ×3 (09:00→20:48)
[2021-03-29] MEDS: RIVAROXABAN 10 MG TABLET PO SCH (09:47)
[2021-03-29] MEDS: VITAMIN D 1000 UNIT TAB PO SCH (09:47)
[2021-03-29] MEDS: ASPIRIN EC 81 MG TAB PO SCH (09:48)
[2021-03-29] MEDS: carvediloL 12.5 MG TAB PO SCH ×2 (09:48→20:48)
[2021-03-29] MEDS: THYROID 30 MG TAB PO SCH (09:48)
[2021-03-29] MEDS: predniSONE 20 MG TAB PO SCH ×2 (09:48→20:49)
[2021-03-29] MEDS: BENZONATATE 100 MG CAP PO PRN (09:48)
[2021-03-29] MEDS: AMLODIPINE 10 MG TAB PO SCH (09:49)
[2021-03-29] MEDS: TOPIRAMATE 25 MG TAB PO SCH ×2 (09:52→20:49)
[2021-03-29] MEDS: INSULIN GLARGINE 100 UNIT/ML SQ SCH (20:47)
[2021-03-29] MEDS: ATORVASTATIN 40 MG TAB PO SCH (20:49)
--- NOTE | 2021-03-30 00:09 | PN ---
Date of Progress Note: 03/29/2021 Chief Complaint: Acute kidney injury secondary to prerenal azotemia and renal hypoperfusion. The patient received IV fluids. Renal function has improved. The patient did not require dialysis. Electrolytes are stable. Review of Systems: Unobtainable. Objective: General: The patient is not in acute distress. Heart: S1, S2. Abdomen: Soft, benign. Extremities: No edema. Impression And Plan: 1.Acute kidney injury secondary to prerenal state. Serum creatinine is gradually improving. The pa tient will continue adequate hydration. 2.Acute renal failure secondary to COVID pneumonia. 3.Congestive heart failure. Continue diuretics and steroids. 4.Cardiorenal syndrome. The patient is on diuretics. Monitor electrolyte-fluid balance. EB/MODL Voice ID: [id number] Report ID: [id number]
[2021-03-30 03:48] LABS: Absolute Lymphocytes (CBC) 0.1 K/uL (0.7-4.9); Lymphocytes % 1.7 % (15.3-44.8); MPV 8.7 fL (7.6-11.3); RBC Red Blood Cell Count 3.09 M/uL (3.86-4.86)
[2021-03-30 03:57] LABS: Albumin 1.3 g/dL (3.4-5.0); Phosphorus 3.4 mg/dL (2.5-4.9); Potassium 4.3 mmol/L (3.5-5.1)
[2021-03-30 04:38] LABS: Blood Morphology Comment NOT SEEN (NOT SEEN); Platelet Estimate ADEQ
[2021-03-30] MEDS: THYROID 30 MG TAB PO SCH (05:44)
--- NOTE | 2021-03-30 06:15 | P.PN ---
Date of Service: 03/30/21 Subjective: No acute events Feels about the same No new symptoms/complaints Unsure when she last had a bowel movement since, states it has been several days ROS: 10 point ROS as noted above, otherwise negative Physical exam GEN: Alert, oriented HEENT: Normal conjunctiva, sclera anicteric CV: Regular rate and rhythm, no edema Pulm: Nonlabored respirations on 12L NC ABD: Soft, nontender, nondistended Neuro: Normal speech, normal affect Problem List Acute hypoxic respiratory failure secondary to bilateral COVID-19 pneumoniaunvaccinated troponin leak secondary to Covid pneumonia Diabetes mellitus type 2 with hyperglycemia Acute kidney injury superimposed on CKD 3 Hypertension Hyperlipidemia Migraines Anemia, iron deficiency Debility Acute hypoxic respiratory failure secondary to bilateral COVID-19 pneumoniaunvaccinated: UTI Continue steroids. CONS in blood: skin contaminant, repeat blood cultures: negative. Empiric vanc dc'd UA with bacteruria. Urine culture: Mixed growth. Patient briefly treated with Levaquin. May be a candidate for pulmonary rehab / LTAC Social service is assisting with arrangements for placement in acute rehab for pulmonary rehab vs LTAC Weaning oxygen as tolerated, needs to be stable on lower O2 requirement Elevated troponin: Likely secondary to COVID-19 pneumonia., Ekg without ischemic changes. Troponin trended flat. Patient is asymptomatic. DM 2 with hyperglycemia: Lantus insulin and sliding scale, titrate as needed for better control UMM superimposed on CKD 3: improving nephrology following Hypertension HLD Migraines Continue amlodipine and Coreg. Patient is currently normotensive. Fall No injury reported. PT working with patient Anemia, iron deficiency -Hemoglobin was slightly downtrending, no evidence of bleeding -transfused 1uPRBC on 03/24, responded appropriately, stable -O2 requirement decreased VTE: lovenox Code: full Dispo: possible rehab once stable on lower O2 requirement vs LTAC Time Spent Managing Pts Care (In Minutes): 35
[2021-03-30] MEDS: carvediloL 12.5 MG TAB PO SCH ×2 (08:03→20:40)
[2021-03-30] MEDS: ASPIRIN EC 81 MG TAB PO SCH (08:03)
[2021-03-30] MEDS: VITAMIN D 1000 UNIT TAB PO SCH (08:03)
[2021-03-30] MEDS: predniSONE 20 MG TAB PO SCH ×2 (08:05→21:00)
[2021-03-30] MEDS: GLUCERNA SHAKE 237 ML CAN PO SCH ×3 (08:05→20:49)
[2021-03-30] MEDS: RIVAROXABAN 10 MG TABLET PO SCH (08:05)
[2021-03-30] MEDS: TOPIRAMATE 25 MG TAB PO SCH ×2 (08:05→20:50)
[2021-03-30] MEDS: AMLODIPINE 10 MG TAB PO SCH (08:18)
[2021-03-30] MEDS: INSULIN -REGULAR HUMAN 50 UNIT/0.5 ML ML SQ SCH ×4 (08:20→20:36)
[2021-03-30] MEDS ORDERED: POLYETHYL GLY 3350 17 GM/DOSE PO ONE (13:43)
[2021-03-30] MEDS ORDERED: POLYETHYL GLY 3350 17 GM/DOSE PO PRN (13:43)
[2021-03-30] MEDS: ACETAMINOPHEN 500 MG TAB PO PRN (17:39)
--- NOTE | 2021-03-30 18:55 | P.PN ---
Subjective Date of Service: 03/30/21 Primary Care Provider: Dr. Manley Chief Complaint: COVID-19 pneumonia Patient seen and examined at bedside, no acute events Review of Systems 10-point ROS is otherwise unremarkable Physical Examination - Vital Signs Temperature: 97.5 F Blood Pressure: 133/62 Pulse: 70 Respirations: 18 Pulse Ox (%): 97 Assessment And Plan - Plan Physical Exam: General: Alert, In no apparent distress HEENT: Atraumatic, Normocephalic Neck: Supple Respiratory: Other (diminshed ) Cardiovascular: No edema, Regular rate/rhythm Gastrointestinal: Normal bowel sounds, Soft and benign Conclusions/Impression: Antibiotics vancomycin start: 03/15 stop: 01/16 levaquin start: 03/15 stop: 03/16 Assessment/Plan Possible Bacteremia BC obtained on 03/14 grew CONs in both aerobic bottles. Repeat showed NG@24 hr. Likely contamination--vancomycin DC on 01/16. Possible UTI UC chowed mixed christoph, patient asymptomatic, levaquin DC on 03/16. COVID 19 On supplemental O2. Continue steroid therapy. Pulm following. Anemia continue to monitor H&H ID will sign off, thank you for consult. DM CKD stage 3 Hypothyroidism HTN HLD -medical management per primary team Plan of care discussed with Dr. Loaiza Thank you for consultation.
[2021-03-30] MEDS: ATORVASTATIN 40 MG TAB PO SCH (20:49)
[2021-03-30] MEDS: INSULIN GLARGINE 100 UNIT/ML SQ SCH (20:52)
--- NOTE | 2021-03-30 23:11 | PN ---
Date of Progress Note: 03/30/2021 Chief Complaint: Acute kidney injury secondary to prerenal azotemia and renal hypoperfusion in setting of hypovolemia and COVID pneumonia. History: Patient was found to have congestive heart failure and was started on diuretics and steroids. Patient received IV fluids. Renal function has improved. The patient is on diuretics for congestive heart failure. Review of Systems: Unobtainable. Physical Examination: Heart: S1, S2, not in acute distress. Abdomen: Soft. Extremities: No edema. Impression And Plan: 1. Acute kidney injury secondary to prerenal state. Serum creatinine is gradually improving. Today's creatinine level is 1.4. Electrolytes are stable. Monitor electrolytes, renal panel, and fluid balance. 2. Acute renal failure secondary to prerenal azotemia in setting of COVID pneumonia. Treatment of COVID pneumonia per primary team. 3. Congestive heart failure. Patient may benefit from diuretics. Monitor fluid balance. 4. Cardiorenal syndrome, on diuretics. Continue to evaluate electrolytes. TRUNG/MODL Voice ID: [id number] Report ID: [id number] MINDY
[2021-03-31 03:52] LABS: Absolute Lymphocytes (CBC) 0.2 K/uL (0.7-4.9); Hematocrit 26.3 % (36.0-45.0); Lymphocytes % 1.9 % (15.3-44.8); MPV 8.6 fL (7.6-11.3); RBC Red Blood Cell Count 3.01 M/uL (3.86-4.86)
[2021-03-31 04:09] LABS: Albumin 1.3 g/dL (3.4-5.0); Phosphorus 3.6 mg/dL (2.5-4.9); Potassium 4.7 mmol/L (3.5-5.1)
[2021-03-31] MEDS: THYROID 30 MG TAB PO SCH (06:00)
[2021-03-31] MEDS: GLUCERNA SHAKE 237 ML CAN PO SCH ×3 (09:00→21:00)
[2021-03-31] MEDS: INSULIN -REGULAR HUMAN 50 UNIT/0.5 ML ML SQ SCH ×4 (09:26→21:45)
[2021-03-31] MEDS: RIVAROXABAN 10 MG TABLET PO SCH (09:27)
[2021-03-31] MEDS: ASPIRIN EC 81 MG TAB PO SCH (09:27)
[2021-03-31] MEDS: TOPIRAMATE 25 MG TAB PO SCH ×2 (09:28→21:44)
[2021-03-31] MEDS: VITAMIN D 1000 UNIT TAB PO SCH (09:28)
[2021-03-31] MEDS: carvediloL 12.5 MG TAB PO SCH ×2 (09:28→21:44)
[2021-03-31] MEDS: predniSONE 20 MG TAB PO SCH ×2 (09:29→21:44)
[2021-03-31] MEDS: AMLODIPINE 10 MG TAB PO SCH (09:29)
--- NOTE | 2021-03-31 16:45 | P.PN ---
Subjective Date of Service: 03/31/21 Primary Care Provider: Dr. Manley Chief Complaint: COVID-19 pneumonia Patient states she feels better today. She is more interactive. She is also participating in physical therapy. Physical Examination - Vital Signs Temperature: 97.9 F Blood Pressure: 144/67 Pulse: 84 Respirations: 20 Pulse Ox (%): 95 Assessment And Plan - Plan Physical exam GEN: Alert, oriented HEENT: Normal conjunctiva, sclera anicteric CV: Regular rate and rhythm, no edema Pulm: Nonlabored respirations on 15L NC ABD: Soft, nontender, nondistended Neuro: Normal speech, normal affect Acute hypoxic respiratory failure secondary to bilateral COVID-19 pneumoniaunvaccinated Bacteremia Possible UTI Elevated troponin Diabetes mellitus type 2 with hyperglycemia Acute kidney injury superimposed on CKD 3 Hypertension Hyperlipidemia Migraines Acute hypoxic respiratory failure secondary to bilateral COVID-19 pneumoniaunvaccinated: Bacteremia UTI Continue with steroids. Patient remains on high flow oxygen. Blood cultures: Coagulase-negative staph. This is likely a skin contaminant. Repeat blood culture: No growth to date. Empirically started vancomycin on 03/15. Antibiotics discontinued. UA suggested possible UTI. Urine culture: Mixed growth. Patient briefly treated with Levaquin. LTAC suggested but patient and family declined. Elevated troponin: Likely secondary to COVID-19 pneumonia. Ekg without ischemic changes. Troponin trended flat. Patient is asymptomatic. Diabetes mellitus type 2 with hyperglycemia: Lantus insulin and sliding scale UMM superimposed on CKD 3: UMM improved. I suspect creatinine is currently at baseline. nephrology is following Anemia, iron deficiency no evidence of bleeding transfused 1uPRBC on 03/24. Hemoglobin is relatively stable. Hypertension HLD Migraines Continue amlodipine and Coreg. Fall No injury reported. Monitor. DVT prophylaxis: Lovenox
--- NOTE | 2021-03-31 18:51 | PN ---
Date of Progress Note: 03/31/2021 Subjective: The patient was admitted with acute kidney injury, COVID pneumonia. The patient treated , still requiring 5 high-flow FiO2. The patient's kidney function has been improved. Physical Examination: Vital Signs: Blood pressure 144/67, pulse of 84, afebrile. Chest: Faint rales bilateral base. Heart: S1, S2 regular. Abdomen: Soft, nontender. Extremities: No edema. Laboratory Data: WBC 9.4, H and H 8.9/26.3. Sodium 140, potassium 4.7, bicarb 24, BUN 53, creatinin e 1.2, calcium 8.7, phosphorus 3.6. Current Medications: The patient on include; Xarelto, amlodipine, carvedilol 12.5 b.i.d., Glucerna b reathing treatment, Zofran, and prednisone. Assessment And Plan: 1.Acute kidney injury on chronic kidney disease, recovered back to baseline. 2.Hypertension, controlled, optimal, continue current treatment. 3.Hypokalemia, status post supplement, resolved. 4.Hypertension, controlled, optimal. 5.COVID pneumonia. Continue supportive care. Follow up with the primary. NAPOLEON Voice ID: [id number] Report ID: [id number]
[2021-03-31] MEDS: ATORVASTATIN 40 MG TAB PO SCH (21:44)
[2021-03-31] MEDS: INSULIN GLARGINE 100 UNIT/ML SQ SCH (21:46)
[2021-04-01 03:48] LABS: Absolute Lymphocytes (CBC) 0.1 K/uL (0.7-4.9); Hematocrit 25.4 % (36.0-45.0); Lymphocytes % 1.7 % (15.3-44.8); MPV 8.7 fL (7.6-11.3)
[2021-04-01 05:02] LABS: Potassium 4.7 mmol/L (3.5-5.1)
[2021-04-01] MEDS: THYROID 30 MG TAB PO SCH (05:25)
[2021-04-01] MEDS: INSULIN -REGULAR HUMAN 50 UNIT/0.5 ML ML SQ SCH ×4 (08:15→21:29)
[2021-04-01] MEDS: GLUCERNA SHAKE 237 ML CAN PO SCH ×3 (09:00→20:17)
[2021-04-01] MEDS: ASPIRIN EC 81 MG TAB PO SCH (09:45)
[2021-04-01] MEDS: RIVAROXABAN 10 MG TABLET PO SCH (09:45)
[2021-04-01] MEDS: carvediloL 12.5 MG TAB PO SCH ×2 (09:45→21:28)
[2021-04-01] MEDS: VITAMIN D 1000 UNIT TAB PO SCH (09:45)
[2021-04-01] MEDS: TOPIRAMATE 25 MG TAB PO SCH ×2 (09:45→21:28)
[2021-04-01] MEDS: AMLODIPINE 10 MG TAB PO SCH (09:45)
--- NOTE | 2021-04-01 11:48 | PN ---
Date of Progress Note: 04/01/2021 Subjective: The patient was admitted with COVID pneumonia, respiratory failure. Had acute kidney in jury, creatinine jumped to the 2s secondary to prerenal. COVID nephropathy recovered. The patient h as been on IV fluid. Physical Examination: Vital Signs: Blood pressure 144/67, pulse of 76, afebrile. Chest: Faint rales bilateral. Heart: S1, S2. Regular. Abdomen: Soft, nontender. Extremity: Trace edema. Neurologic: Alert, oriented x3. No focal. The patient on FiO2, high-flow 65%. Laboratory Data: WBC 7.3, H and H 8.5/25.4. Sodium 141, potassium 4.7, bicarb 25, BUN 54, creatinin e down to 1.2, GFR of 44, calcium 8.5. Current Medications: The patient on include Xarelto, aspirin, amlodipine 10 mg, carvedilol 12.5, Top amax, Pepcid, thyroid supplement, melatonin. Assessment And Plan: 1.Acute kidney injury on chronic kidney disease, back to baseline. I am going to have chest x-ray f or better evaluation of the fluid status to decide about gentle diuresis. 2.Hypertension, controlled, optimal. Continue current treatment. Keep holding spironolactone. 3.Hypokalemia, resolved. 4.COVID pneumonia as by primary. 5.Congestive heart failure, currently normal volume. We will get chest x-ray for evaluation of the fluid status. NAPOLEON Voice ID: [id number] Report ID: [id number]
--- NOTE | 2021-04-01 12:23 | RAD REPORT ---
EXAM DESCRIPTION: RAD - Chest Single View - 04/01/2021 12:02 pm CLINICAL HISTORY: COPD COMPARISON: Portable March 25 TECHNIQUE: AP portable chest image was obtained 04/01/2021 12:02 pm . FINDINGS: Diffuse airspace opacification is present accentuated by a lower lung volume on today's st udy. There has been slight improvement since March 25 the very extensive lung disease remains. Hear t size remains prominent. Central vasculature also prominent but stable. No measurable pleural effusi on and no pneumothorax. No acute bony abnormality seen. No acute aortic findings suspected. IMPRESSION: Extensive bilateral COVID-19 pneumonia pattern showing only slight improvement from imaging.
--- NOTE | 2021-04-01 12:31 | P.PN ---
Subjective Date of Service: 04/01/21 Primary Care Provider: Dr. Manley Chief Complaint: COVID-19 pneumonia Patient is improving and 65% FiO2 no new complaint Review of Systems General: Weakness Respiratory: Shortness of Breath Physical Examination - Vital Signs Temperature: 97.6 F Blood Pressure: 144/67 Pulse: 78 Respirations: 18 Pulse Ox (%): 93 - Physical Exam General: Alert, Oriented x3, Mild distress Respiratory: Clear to auscultation bilaterally, Diminished Assessment & Plan - Problems (Diagnosis) (1) Acute respiratory failure due to COVID-19 Current Visit: Yes Status: Acute Plan: Doing better improving and FiO2 65% plan to titrate down to less than 50% b enefit from life 2000 home noninvasive ventilator add low-dose Lasix
[2021-04-01] MEDS: FUROSEMIDE 20 MG TABLET PO SCH (14:00)
[2021-04-01] MEDS: predniSONE 20 MG TAB PO SCH ×2 (14:03→21:28)
--- NOTE | 2021-04-01 14:22 | P.PN ---
Subjective Date of Service: 04/01/21 Primary Care Provider: Dr. Manley Chief Complaint: COVID-19 pneumonia No changes from yesterday except patient is more responsive and interactive. Physical Examination - Vital Signs Temperature: 97.6 F Blood Pressure: 119/61 Pulse: 80 Respirations: 18 Pulse Ox (%): 93 Assessment And Plan - Plan Physical exam GEN: Alert, oriented HEENT: Normal conjunctiva, sclera anicteric CV: Regular rate and rhythm, no edema Pulm: Nonlabored respirations on 15L NC ABD: Soft, nontender, nondistended Neuro: Normal speech, normal affect Acute hypoxic respiratory failure secondary to bilateral COVID-19 pneumoniaunvaccinated Bacteremia Possible UTI Elevated troponin Diabetes mellitus type 2 with hyperglycemia Acute kidney injury superimposed on CKD 3 Hypertension Hyperlipidemia Migraines Acute hypoxic respiratory failure secondary to bilateral COVID-19 pneumoniaunvaccinated: Bacteremia UTI Continue with steroids. Patient remains on high flow oxygen. Blood cultures: Coagulase-negative staph. This is likely a skin contaminant. Repeat blood culture: No growth to date. Empirically started vancomycin on 03/15. Antibiotics discontinued. UA suggested possible UTI. Urine culture: Mixed growth. Patient briefly treated with Levaquin. LTAC suggested but patient and family declined. Continue to wean oxygen as tolerated.. Elevated troponin: Likely secondary to COVID-19 pneumonia. Ekg without ischemic changes. Troponin trended flat. Patient is asymptomatic. Diabetes mellitus type 2 with hyperglycemia: Lantus insulin and sliding scale UMM superimposed on CKD 3: UMM improved. I suspect creatinine is currently at baseline. nephrology is following Anemia, iron deficiency no evidence of bleeding transfused 1uPRBC on 03/24. Hemoglobin is relatively stable. Hypertension HLD Migraines Continue amlodipine and Coreg. Fall No injury reported. Monitor. Apathy Suspect depression. Patient started on Remeron to improve her mood and appetite. DVT prophylaxis: Lovenox
[2021-04-01] MEDS ORDERED: MIRTAZAPINE 15 MG TAB PO SCH (21:00)
[2021-04-01] MEDS: INSULIN GLARGINE 100 UNIT/ML SQ SCH (21:00)
[2021-04-01] MEDS: ATORVASTATIN 40 MG TAB PO SCH (21:28)
[2021-04-02] MEDS: THYROID 30 MG TAB PO SCH (06:36)
[2021-04-02] MEDS: INSULIN -REGULAR HUMAN 50 UNIT/0.5 ML ML SQ SCH ×4 (08:15→20:41)
[2021-04-02] MEDS: GLUCERNA SHAKE 237 ML CAN PO SCH ×3 (09:00→20:41)
[2021-04-02] MEDS: AMLODIPINE 10 MG TAB PO SCH (09:00)
[2021-04-02] MEDS: FUROSEMIDE 20 MG TABLET PO SCH (09:40)
[2021-04-02] MEDS: TOPIRAMATE 25 MG TAB PO SCH ×2 (09:40→20:42)
[2021-04-02] MEDS: ASPIRIN EC 81 MG TAB PO SCH (09:40)
[2021-04-02] MEDS: VITAMIN D 1000 UNIT TAB PO SCH (09:40)
[2021-04-02] MEDS: predniSONE 20 MG TAB PO SCH ×2 (09:41→20:42)
[2021-04-02] MEDS: carvediloL 12.5 MG TAB PO SCH ×2 (09:41→20:42)
[2021-04-02] MEDS: RIVAROXABAN 10 MG TABLET PO SCH (09:41)
--- NOTE | 2021-04-02 12:36 | P.PN ---
Subjective Date of Service: 04/02/21 Primary Care Provider: Dr. Manley Chief Complaint: COVID-19 pneumonia Oxygenation improving still very weak patient is not very cooperative with nursing instructions Review of Systems General: Weakness Respiratory: Shortness of Breath Physical Examination - Vital Signs Temperature: 97.7 F Blood Pressure: 119/63 Pulse: 73 Respirations: 18 Pulse Ox (%): 92 - Physical Exam General: Alert, Oriented x3, Cooperative Respiratory: Clear to auscultation bilaterally, Diminished Assessment & Plan - Problems (Diagnosis) (1) Acute respiratory failure due to COVID-19 Current Visit: Yes Status: Acute Plan: Respiratory failure continue to wean down on the oxygen avoid mirtazapine patient is very tired sleepy vital signs stable
--- NOTE | 2021-04-02 13:02 | P.PN ---
Subjective Date of Service: 04/02/21 Primary Care Provider: Dr. Manley Chief Complaint: COVID-19 pneumonia High flow weaned down to 60% and 15 L. Patient is awake and interactive. Physical Examination - Vital Signs Temperature: 97.7 F Blood Pressure: 119/63 Pulse: 73 Respirations: 18 Pulse Ox (%): 92 Assessment And Plan - Plan Physical exam GEN: Alert, oriented HEENT: Normal conjunctiva, sclera anicteric CV: Regular rate and rhythm, no edema Pulm: Nonlabored breathing. ABD: Soft, nontender, nondistended Neuro: Normal speech, normal affect Acute hypoxic respiratory failure secondary to bilateral COVID-19 pneumoniaunvaccinated Bacteremia Possible UTI Elevated troponin Diabetes mellitus type 2 with hyperglycemia Acute kidney injury superimposed on CKD 3 Hypertension Hyperlipidemia Migraines Acute hypoxic respiratory failure secondary to bilateral COVID-19 pneumoniaunvaccinated: Bacteremia UTI Continue with steroids. Patient remains on high flow oxygen. Blood cultures: Coagulase-negative staph. This is likely a skin contaminant. Repeat blood culture: No growth to date. Empirically started vancomycin on 03/15. Antibiotics discontinued. UA suggested possible UTI. Urine culture: Mixed growth. Patient briefly treated with Levaquin. LTAC suggested but patient and family declined. Continue to wean oxygen as tolerated. Elevated troponin: Likely secondary to COVID-19 pneumonia. Ekg without ischemic changes. Troponin trended flat. Patient is asymptomatic. Diabetes mellitus type 2 with hyperglycemia: Lantus insulin and sliding scale UMM superimposed on CKD 3: UMM resolved Creatinine is currently at baseline. Seen by nephrology. Anemia, iron deficiency no evidence of bleeding transfused 1uPRBC on 03/24. Hemoglobin is relatively stable. Hypertension HLD Migraines Continue amlodipine and Coreg. Apathy Patient has been more interactive over the past few days. DVT prophylaxis: Lovenox
--- NOTE | 2021-04-02 15:21 | PN ---
Date of Progress Note: 04/02/2021 Subjective: The patient was admitted with COVID pneumonia, had acute kidney injury, creatinine above 2, and anasarca. The patient's kidney function has been improved, back to baseline. The patient is still maintaining on high-flow, today is better down to 60%. Physical Examination: Vital Signs: Blood pressure 119/63, pulse of 73, afebrile. Chest: Crackles bilateral. Heart: S1, S2. Regular. Abdomen: Soft, nontender. Extremity: Trace edema. Neurologic: Alert. No focality. Laboratory Data: WBC 7.3, H and H 8.5/25.4. Sodium 141, potassium 4.7, bicarb 25, BUN 54, creatinin e 1.2, calcium 8.5. Current Medications: The patient on include Xarelto, aspirin, amlodipine 10 mg, atorvastatin, carved ilol 12.5 b.i.d., Lasix, started yesterday of 20 mg orally Zofran, levothyroxine. Assessment And Plan: 1.Chronic kidney disease, stage 3, status post acute kidney injury secondary to prerenal, recovered, resolved, back to baseline. The patient was started again on the Lasix. We will follow up closely. 2.Hypertension, controlled, optimal. Continue current treatment. 3.Hypokalemia, resolved. 4.COVID pneumonia as by Pulmonary. 5.Over volume. The patient resumed Lasix. We will follow up. NAPOLEON Voice ID: [id number] Report ID: [id number]
[2021-04-02] MEDS: INSULIN GLARGINE 100 UNIT/ML SQ SCH (20:41)
[2021-04-02] MEDS: ATORVASTATIN 40 MG TAB PO SCH (20:42)
[2021-04-03 03:57] LABS: Absolute Lymphocytes (CBC) 0.1 K/uL (0.7-4.9); Hematocrit 27.5 % (36.0-45.0); Lymphocytes % 2.3 % (15.3-44.8); MPV 9.1 fL (7.6-11.3); RBC Red Blood Cell Count 3.14 M/uL (3.86-4.86)
[2021-04-03 04:22] LABS: Potassium 4.8 mmol/L (3.5-5.1)
--- NOTE | 2021-04-03 06:01 | P.PN ---
Subjective Date of Service: 04/04/21 Primary Care Provider: Dr. Manley Chief Complaint: COVID-19 pneumonia Subjective: Other (she reports no increase in her shortness of breath.) Physical Examination - Vital Signs Temperature: 97.7 F Blood Pressure: 127/67 Pulse: 75 Respirations: 20 Pulse Ox (%): 90 - Physical Exam General: Other (appears as her stated age) HEENT: Atraumatic, Normocephalic Neck: Supple, JVD not distended Respiratory: Other (symmetric chest expansion) Cardiovascular: No rubs, No murmurs Gastrointestinal: Soft and benign, No guarding Musculoskeletal: No clubbing Integumentary: No warmth Neurological: Normal speech, Normal tone Urinary: Other (no bladder distention) External genitalia: Deferred Rectal: Deferred Assessment And Plan - Plan 1. Acute kidney injury secondary to prerenal state. The patient has underlying chronic kidney disease stage 3. Serum creatinine improved to 1.2. [place] by mouth fluid intake. Monitor renal panel. 2. Hypertension, Blood pressure controlled. Continue current BP medication regimen. 3. Acute respiratory failure secondary to COVID PNA and congestive heart failure. Continue lasix 20 mg po daily. 4. DM2. Mngt per primary team. 5. Dispo. Anticipate dc to home in 1-2d.
[2021-04-03] MEDS: THYROID 30 MG TAB PO SCH (06:09)
[2021-04-03] MEDS: GLUCERNA SHAKE 237 ML CAN PO SCH ×3 (09:00→21:42)
[2021-04-03] MEDS: RIVAROXABAN 10 MG TABLET PO SCH (09:13)
[2021-04-03] MEDS: VITAMIN D 1000 UNIT TAB PO SCH (09:13)
[2021-04-03] MEDS: predniSONE 20 MG TAB PO SCH (09:14)
[2021-04-03] MEDS: TOPIRAMATE 25 MG TAB PO SCH ×2 (09:14→21:43)
[2021-04-03] MEDS: ASPIRIN EC 81 MG TAB PO SCH (09:14)
[2021-04-03] MEDS: INSULIN -REGULAR HUMAN 50 UNIT/0.5 ML ML SQ SCH ×4 (09:17→21:43)
[2021-04-03] MEDS: FUROSEMIDE 20 MG TABLET PO SCH (09:19)
[2021-04-03] MEDS: carvediloL 12.5 MG TAB PO SCH ×2 (09:20→21:42)
[2021-04-03] MEDS: AMLODIPINE 10 MG TAB PO SCH (09:20)
--- NOTE | 2021-04-03 12:02 | PN ---
Subjective: The patient lying in bed. No new acute event. Chart reviewed. Objective: Vital Signs: Temperature 97.6, pulse 71, respirations 22, blood pressure 133/60. Lungs: Basal crackles. Heart: S1, S2. Regular. Abdomen: Soft, nontender. Bowel sounds present. Extremities: No edema. Laboratory Data: WBC 6, hemoglobin 9, platelets are 150. Chemistry shows sodium 141, potassium 4.8, chloride 110, bicarb 26, BUN 57, creatinine 1.2, glucose 212. Blood cultures from 03/16 are negativ e. The patient is off antibiotic at this time. Assessment/plan: 1.COVID-19 pneumonia. Currently on 6 L nasal cannula. 2.Anemia of chronic disease. 3.Diabetes mellitus. 4.Chronic kidney disease stage 3. 5.Hypothyroidism. Continue supportive care and current treatment. No other recommendation at this time. NF/MODL Voice ID: [id number] Report ID: [id number]
--- NOTE | 2021-04-03 13:09 | P.PN ---
Subjective Date of Service: 04/03/21 Primary Care Provider: Dr. Manley Chief Complaint: COVID-19 pneumonia Doing much better now down to 6 L no new complaints Review of Systems General: Weakness Respiratory: Shortness of Breath Physical Examination - Vital Signs Temperature: 97.6 F Blood Pressure: 133/60 Pulse: 71 Respirations: 22 Pulse Ox (%): 93 - Physical Exam General: Alert, In no apparent distress, Oriented x3 Assessment & Plan - Problems (Diagnosis) (1) Acute respiratory failure due to COVID-19 Current Visit: Yes Status: Acute Plan: Respiratory failure patient improving down to 6 L possible discharge today on prednisone 10 twice daily for a week and then 10 mg once a day for a week slow taper continue with low-dose antianticoagulation Eliquis or Xarelto 10 mg for about a month oxygen ordered
--- NOTE | 2021-04-03 15:35 | P.PN ---
Subjective Date of Service: 04/03/21 Primary Care Provider: Dr. Manley Chief Complaint: COVID-19 pneumonia PAtient's respiratory status is improving. She is currently tolerating 4-5L o2 by ME. She has no complain. Physical Examination - Vital Signs Temperature: 97.6 F Blood Pressure: 133/60 Pulse: 71 Respirations: 22 Pulse Ox (%): 93 Assessment And Plan - Plan Physical exam GEN: Alert, oriented HEENT: Normal conjunctiva, sclera anicteric CV: Regular rate and rhythm, no edema Pulm: Nonlabored breathing. ABD: Soft, nontender, nondistended Neuro: Normal speech, normal affect Acute hypoxic respiratory failure secondary to bilateral COVID-19 pn eumoniaunvaccinated Bacteremia Possible UTI Elevated troponin Diabetes mellitus type 2 with hyperglycemia Acute kidney injury superimposed on CKD 3 Hypertension Hyperlipidemia Migraines Acute hypoxic respiratory failure secondary to bilateral COVID-19 pneumoniaunvaccinated: Bacteremia UTI Continue with steroids. Patient now weaned to oxygen by nasal cannula. Blood cultures: Coagulase-negative staph. This is likely a skin contaminant. Repeat blood culture: No growth to date. Empirically started vancomycin on 03/15. Antibiotics discontinued. UA suggested possible UTI. Urine culture: Mixed growth. Patient briefly treated with Levaquin. Continue to wean oxygen as tolerated. Arrange for home oxygen. Elevated troponin: Likely secondary to COVID-19 pneumonia. Ekg without ischemic changes. Troponin trended flat. Patient is asymptomatic. Diabetes mellitus type 2 with hyperglycemia: Lantus insulin and sliding scale UMM superimposed on CKD 3: UMM resolved Creatinine is currently at baseline. Seen by nephrology. Anemia, iron deficiency no evidence of bleeding transfused 1uPRBC on 03/24. Hemoglobin is relatively stable. Hypertension HLD Migraines Continue amlodipine and Coreg. DVT prophylaxis: Lovenox
[2021-04-03] MEDS: INSULIN GLARGINE 100 UNIT/ML SQ SCH (21:00)
[2021-04-03] MEDS: predniSONE 10 MG TAB PO SCH (21:42)
[2021-04-03] MEDS: ATORVASTATIN 40 MG TAB PO SCH (21:43)
[2021-04-04] MEDS: THYROID 30 MG TAB PO SCH (07:21)
[2021-04-04 07:29] LABS: Albumin 1.3 g/dL (3.4-5.0); Magnesium 2.4 mg/dL (1.8-2.4); Phosphorus 4.4 mg/dL (2.5-4.9)
[2021-04-04] MEDS: GLUCERNA SHAKE 237 ML CAN PO SCH ×3 (09:00→21:00)
[2021-04-04] MEDS: FAMOTIDINE 20 MG/2 ML VIAL IV PRN (09:42)
[2021-04-04] MEDS: VITAMIN D 1000 UNIT TAB PO SCH (09:42)
[2021-04-04] MEDS: INSULIN -REGULAR HUMAN 50 UNIT/0.5 ML ML SQ SCH ×4 (09:42→21:08)
[2021-04-04] MEDS: TOPIRAMATE 25 MG TAB PO SCH ×2 (09:43→21:07)
[2021-04-04] MEDS: AMLODIPINE 10 MG TAB PO SCH (09:43)
[2021-04-04] MEDS: BENZONATATE 100 MG CAP PO PRN (09:43)
[2021-04-04] MEDS: ASPIRIN EC 81 MG TAB PO SCH (09:44)
[2021-04-04] MEDS: RIVAROXABAN 10 MG TABLET PO SCH (09:44)
[2021-04-04] MEDS: predniSONE 10 MG TAB PO SCH ×2 (09:44→21:07)
[2021-04-04] MEDS: FUROSEMIDE 20 MG TABLET PO SCH ×2 (09:48→12:35)
[2021-04-04] MEDS: carvediloL 12.5 MG TAB PO SCH ×2 (09:48→21:07)
--- NOTE | 2021-04-04 12:39 | P.PN ---
Subjective Date of Service: 04/04/21 Primary Care Provider: Dr. Manley Chief Complaint: COVID-19 pneumonia Patient currently tolerating 4 L oxygen by nasal cannula She has no complain. Physical Examination - Vital Signs Temperature: 98.4 F Blood Pressure: 120/60 Pulse: 70 Respirations: 18 Pulse Ox (%): 97 Assessment And Plan - Plan Physical exam GEN: Alert, oriented HEENT: Normal conjunctiva, sclera anicteric CV: Regular rate and rhythm, no edema Pulm: Nonlabored breathing. ABD: Soft, nontender, nondistended Neuro: Normal speech, normal affect Acute hypoxic respiratory failure secondary to bilateral COVID-19 pneumoniaunvaccinated Bacteremia Possible UTI Elevated troponin Diabetes mellitus type 2 with hyperglycemia Acute kidney injury superimposed on CKD 3 Hypertension Hyperlipidemia Migraines Acute hypoxic respiratory failure secondary to bilateral COVID-19 pneumoniaunvaccinated: Bacteremia UTI Continue with steroids. Patient now weaned to oxygen by nasal cannula. Blood cultures: Coagulase-negative staph. This is likely a skin contaminant. Repeat blood culture: No growth to date. Empirically started vancomycin on 03/15. Antibiotics discontinued. UA suggested possible UTI. Urine culture: Mixed growth. Patient briefly treated with Levaquin. Continue to wean oxygen as tolerated. It appears family is looking forward for patient to go to rehab. Continue PT. Elevated troponin: Likely secondary to COVID-19 pneumonia. Ekg without ischemic changes. Troponin trended flat. Patient is asymptomatic. Diabetes mellitus type 2 with hyperglycemia: Lantus insulin and sliding scale UMM superimposed on CKD 3: UMM resolved Creatinine is currently at baseline. Followed by nephrology. Anemia, iron deficiency no evidence of bleeding transfused 1uPRBC on 03/24. Hemoglobin is relatively stable. Hypertension HLD Migraines Continue amlodipine and Coreg. DVT prophylaxis: Lovenox
--- NOTE | 2021-04-04 15:48 | PN ---
Date of Progress Note: 04/04/2021 Subjective: The patient was admitted with COVID pneumonia, acute kidney injury, hypokalemia. The lani crowley's kidney function has been improved. It was a prerenal/COVID nephropathy. Physical Examination: Vital Signs: Blood pressure 116/61, pulse of 70. The patient currently on 5 L. High-flow has been DC'd. Chest: Faint harsh crackles bilateral. Heart: S1, S2. Regular. Abdomen: Soft, nontender. Extremities: No edema. Neurologic: No focality. Laboratory Data: WBC 6, H and H 9/27.5. Sodium of 141, potassium 4.8, bicarb 26, BUN 57, creatinine 1.2, calcium of 8.8. Current Medications: The patient on include aspirin, Xarelto, amlodipine 10 mg, atorvastatin, carved ilol 12.5, Tylenol, glimepiride, Glucerna, Lasix 20 daily, Pepcid, prednisone, thyroid supplement, me latonin. Assessment And Plan: 1.Acute kidney injury secondary to prerenal/COVID nephropathy, recovered, resolved. 2.Hypertension, controlled, optimal. Continue current medication. 3.Disproportion BUN and creatinine secondary to steroid catabolic state. Continue current treatment . I am going to change the Lasix to be every other day and we will follow up. 4.COVID pneumonia as by Primary. 5.Hypokalemia, resolved. N[place]OLEON Voice ID: [id number] Report ID: [id number]
[2021-04-04] MEDS: INSULIN GLARGINE 100 UNIT/ML SQ SCH (21:00)
[2021-04-04] MEDS: ATORVASTATIN 40 MG TAB PO SCH (21:07)
[2021-04-05 04:15] LABS: Absolute Lymphocytes (CBC) 0.2 K/uL (0.7-4.9); Hematocrit 28.3 % (36.0-45.0); Lymphocytes % 3.7 % (15.3-44.8); MPV 8.4 fL (7.6-11.3); RBC Red Blood Cell Count 3.24 M/uL (3.86-4.86)
[2021-04-05] MEDS: THYROID 30 MG TAB PO SCH (05:59)
[2021-04-05] MEDS: RIVAROXABAN 10 MG TABLET PO SCH (08:43)
[2021-04-05] MEDS: VITAMIN D 1000 UNIT TAB PO SCH (08:43)
[2021-04-05] MEDS: predniSONE 10 MG TAB PO SCH ×2 (08:44→21:23)
[2021-04-05] MEDS: carvediloL 12.5 MG TAB PO SCH ×2 (08:44→21:23)
[2021-04-05] MEDS: ASPIRIN EC 81 MG TAB PO SCH (08:45)
[2021-04-05] MEDS: AMLODIPINE 10 MG TAB PO SCH (08:45)
[2021-04-05] MEDS: TOPIRAMATE 25 MG TAB PO SCH ×2 (08:45→21:23)
[2021-04-05] MEDS: INSULIN -REGULAR HUMAN 50 UNIT/0.5 ML ML SQ SCH ×4 (08:45→21:23)
[2021-04-05] MEDS: GLUCERNA SHAKE 237 ML CAN PO SCH ×3 (08:47→21:00)
--- NOTE | 2021-04-05 12:40 | PN ---
Date of Progress Note: 04/05/2021 Subjective: The patient was admitted with COVID pneumonia, acute kidney injury secondary to prerenal . The patient recovered very well. Physical Examination: Vital Signs: When I saw the patient; blood pressure 129/63, pulse of 78. Chest: Faint crackles bilateral. Heart: S1, S2. Regular. Abdomen: Soft, nontender. Extremities: No edema. Laboratory Data: WBC 5.4, H and H 9.2/28.3. Sodium 142, potassium 4, bicarb 28, BUN 57, creatinine 1.1, calcium 8.6. Current Medications: The patient on include: 1.Aspirin. 2.Amlodipine 10 mg. 3.Atorvastatin. 4.Carvedilol. 5.Pepcid. 6.Lasix 40 every 48 hours. 7.Thyroid supplement. 8.Cholecalciferol. Assessment And Plan: 1.Acute kidney injury secondary to prerenal/COVID nephropathy. Recovered back to baseline. Normal volume. Continue current dose of Lasix. 2.Hypertension, controlled, optimal. Continue current treatment. I am going to go ahead and decrea se amlodipine to 5 mg. Continue carvedilol. 3.Respiratory failure secondary to over volume, COVID pneumonia. Follow up with Pulmonary. Continu e current dose of Lasix. 4.Gastritis as by primary. 5.COVID pneumonia as by Pulmonary. MAREK/WOOD Voice ID: [id number] Report ID: [id number]
--- NOTE | 2021-04-05 12:43 | P.PN ---
Subjective Date of Service: 04/05/21 Primary Care Provider: Dr. Manley Chief Complaint: COVID-19 pneumonia Patient respiratory status continues to improve. She is now on 2 L oxygen by nasal cannula. She has no complain. Physical Examination - Vital Signs Temperature: 97.7 F Blood Pressure: 129/63 Pulse: 78 Respirations: 18 Pulse Ox (%): 95 Assessment And Plan - Plan Physical exam GEN: Alert, oriented HEENT: Normal conjunctiva, sclera anicteric CV: Regular rate and rhythm, no edema Pulm: Nonlabored breathing. ABD: Soft, nontender, nondistended Neuro: Normal speech, normal affect Acute hypoxic respiratory failure secondary to bilateral COVID-19 pneumoniaunvaccinated Bacteremia Possible UTI Elevated troponin Diabetes mellitus type 2 with hyperglycemia Acute kidney injury superimposed on CKD 3 Hypertension Hyperlipidemia Migraines Acute hypoxic respiratory failure secondary to bilateral COVID-19 pneumoniaunvaccinated: Bacteremia UTI Continue with steroids. Patient now weaned to oxygen by nasal cannula. Blood cultures: Coagulase-negative staph. This is likely a skin contaminant. Repeat blood culture: No growth to date. Empirically started vancomycin on 03/15. Antibiotics discontinued. UA suggested possible UTI. Urine culture: Mixed growth. Patient briefly treated with Levaquin. Continue to wean oxygen as tolerated. It appears family is looking forward for patient to go to rehab. Continue PT. SW to arrange for placement-[facility]. Elevated troponin: Likely secondary to COVID-19 pneumonia. Ekg without ischemic changes. Troponin trended flat. Patient is asymptomatic. Diabetes mellitus type 2 with hyperglycemia: Lantus insulin and sliding scale UMM superimposed on CKD 3: UMM resolved Creatinine is currently at baseline. Followed by nephrology. Anemia, iron deficiency no evidence of bleeding transfused 1uPRBC on 03/24. Hemoglobin is relatively stable. Hypertension HLD Migraines Continue amlodipine and Coreg. DVT prophylaxis: Lovenox
[2021-04-05] MEDS ORDERED: FAMOTIDINE 20 MG TAB PO SCH (17:00)
[2021-04-05] MEDS ORDERED: FAMOTIDINE 20 MG TAB PO PRN (17:00)
[2021-04-05] MEDS: INSULIN GLARGINE 100 UNIT/ML SQ SCH (21:00)
[2021-04-05] MEDS: ATORVASTATIN 40 MG TAB PO SCH (21:22)
[2021-04-06] MEDS: THYROID 30 MG TAB PO SCH (06:06)
[2021-04-06] MEDS ORDERED: AMLODIPINE 5 MG TAB PO SCH (09:00)
[2021-04-06] MEDS: RIVAROXABAN 10 MG TABLET PO SCH (09:52)
[2021-04-06] MEDS: GLUCERNA SHAKE 237 ML CAN PO SCH ×2 (09:53→14:00)
[2021-04-06] MEDS: ASPIRIN EC 81 MG TAB PO SCH (09:53)
[2021-04-06] MEDS: TOPIRAMATE 25 MG TAB PO SCH (09:53)
[2021-04-06] MEDS: predniSONE 10 MG TAB PO SCH (09:53)
[2021-04-06] MEDS: carvediloL 12.5 MG TAB PO SCH (09:53)
[2021-04-06] MEDS: VITAMIN D 1000 UNIT TAB PO SCH (09:53)
[2021-04-06] MEDS: INSULIN -REGULAR HUMAN 50 UNIT/0.5 ML ML SQ SCH ×3 (09:54→16:30)
[2021-04-06] MEDS: FUROSEMIDE 20 MG TABLET PO SCH (12:35)
--- NOTE | 2021-04-06 12:51 | P.PN ---
Subjective Date of Service: 04/06/21 Primary Care Provider: Dr. Manley Chief Complaint: COVID-19 pneumonia Patient has improved clinically and now tolerating 2 L of oxygen by nasal cannula. She has no complain. She has been able to sit at the edge of the bed. Physical Examination - Vital Signs Temperature: 97.9 F Blood Pressure: 131/63 Pulse: 71 Respirations: 18 Pulse Ox (%): 97 Assessment And Plan - Plan Physical exam GEN: Alert, oriented HEENT: Normal conjunctiva, sclera anicteric CV: Regular rate and rhythm, no edema Pulm: Nonlabored breathing. ABD: Soft, nontender, nondistended Neuro: Normal speech, normal affect Acute hypoxic respiratory failure secondary to bilateral COVID-19 pneumoniaunvaccinated Bacteremia Possible UTI Elevated troponin Diabetes mellitus type 2 with hyperglycemia Acute kidney injury superimposed on CKD 3 Hypertension Hyperlipidemia Migraines Acute hypoxic respiratory failure secondary to bilateral COVID-19 pneumoniaunvaccinated: Bacteremia UTI Continue with steroids. Patient now weaned to oxygen by nasal cannula. Blood cultures: Coagulase-negative staph. This is likely a skin contaminant. Repeat blood culture: No growth to date. Briefly treated with IV vancomycin. UA suggested possible UTI. Urine culture: Mixed growth. Patient briefly treated with Levaquin. Continue to wean oxygen as tolerated. Continue PT. Waiting for rehab placement. Elevated troponin: Likely secondary to COVID-19 pneumonia. Ekg without ischemic changes. Troponin trended flat. Diabetes mellitus type 2 with hyperglycemia: Lantus insulin and sliding scale UMM superimposed on CKD 3: UMM resolved Creatinine is currently at baseline. Followed by nephrology. Anemia, iron deficiency no evidence of bleeding transfused 1uPRBC on 03/24. Hemoglobin has been stable. Hypertension HLD Migraines Continue amlodipine and Coreg. DVT prophylaxis: Lovenox
--- NOTE | 2021-04-06 17:16 | P.DS ---
Admission Date: 03/14/21 Discharge Date: 04/06/21 Primary Care Provider: Dr. Manley Disposition: TRANSFR TO OTHER-PSY/CD/REHAB Discharge Condition: FAIR Reason for Admission: COVID-19 pneumonia Brief History of Present Illness: 51-year-old female with history of diabetes mellitus type 2, hypertension, hyperlipidemia, hypothyroidism presents emergency department for shortness of breath. Patient reports testing positive for COVID on 03/10/2019 here present for hospital, patient was satting in the mid 80s on room air upon arrival to the emergency department. Labs were significant for sodium 134 bica rb 19 BUN 43 creatinine 1.99 GFR 26 glucose 298 troponin 0.13 C-reactive protein 142 procalcitonin 0.97 White blood cell count 2.4 Red blood cell count 3.3 hemoglobin 9.6 Brunner crit 29.2 COVID positive chest x-ray demonstrates significant worsening of mild bilateral pneumonia pattern urine with greater than 50 bacteria on microscopic analysis. ABG obtained demonstrates pH 7.38 PCO2 29.3 O2 61.5 HCO3 17 with compensated metabolic acidosis also noted to have small serum ketones present. Patient with respiratory failure secondary to COVID-19 pneumonia, mild compensated metabolic acidosis secondary to acute renal failure/early DKA. Given IV fluids, Rocephin, IV steroids in the emergency department and admitted for further management. Hospital Course: Discharge diagnosis Acute hypoxic respiratory failure secondary to bilateral COVID-19 pneumoniaunvaccinated Bacteremia Possible UTI Elevated troponin Diabetes mellitus type 2 with hyperglycemia Acute kidney injury superimposed on CKD 3 Hypertension Hyperlipidemia Migraines Acute hypoxic respiratory failure secondary to bilateral COVID-19 pneumoniaunvaccinated: Bacteremia UTI Patient treated with IV steroid and later weaned down to oral prednisone. She was initially requiring high flow oxygen. Her respiratory status improved gradually, had a protracted hospital course but eventually weaned down to oxygen by nasal cannula. She is currently tolerating 2 L/min. Blood cultures: Coagulase-negative staph. This is likely a skin contaminant. Repeat blood culture: No growth to date. Briefly treated with IV vancomycin. UA suggested possible UTI. Urine culture: Mixed growth. Patient briefly treated with Levaquin. Pulmonary-Dr. Phillips assisted with treatment. She became debilitated and she is unable to transfer due to weakness. Had PT sessions. Patient accepted to [facility]. She is clinically stable for transfer. Elevated troponin: Likely secondary to COVID-19 pneumonia. Ekg without ischemic changes. Troponin trended flat. Diabetes mellitus type 2 with hyperglycemia: Managed with Lantus insulin and sliding scale UMM superimposed on CKD 3: UMM resolved Creatinine is currently at baseline. UMM worse followed by nephrology. Her SABINE inhibitor and Aldactone were held and discontinued on discharge. Anemia, iron deficiency no evidence of bleeding transfused 1uPRBC on 03/24. Hemoglobin has been stable. Hypertension HLD Migraines Continued amlodipine and Coreg. Vital Signs/Physical Exam: Temp Pulse Resp BP Pulse Ox 97.9 F 71 18 131/63 97 04/06/21 12:52 04/06/21 12:52 04/06/21 12:52 04/06/21 12:52 04/06/21 12:52 General: Alert, In no apparent distress, Oriented x3 Neck: JVD not distended Respiratory: Crackles/rales (Mild bibasilar crackles) Cardiovascular: No edema, Regular rate/rhythm, Normal S1 S2, No murmurs Gastrointestinal: Soft and benign, Non-distended, No tenderness Musculoskeletal: No swelling, No tenderness Integumentary: No rashes, No erythema, No cyanosis Neurological: Normal strength at 5/5 x4 extr Laboratory Data at Discharge: WBC 5.40 K/uL (4.3-10.9) 04/05/21 04:00 Hgb 9.2 g/dL (12.0-15.0) L 04/05/21 04:00 Hct 28.3 % (36.0-45.0) L 04/05/21 04:00 Plt Count 179 K/uL (152-406) 04/05/21 04:00 PT 10.2 SECONDS (9.5-12.5) 03/14/21 19:50 INR 0.89 03/14/21 19:50 APTT 29.3 SECONDS (24.3-36.9) 03/14/21 19:50 Sodium 142 mmol/L (136-145) 04/05/21 04:00 Potassium 4.0 mmol/L (3.5-5.1) 04/05/21 04:00 BUN 57 mg/dL (7-18) H 04/05/21 04:00 Creatinine 1.15 mg/dL (0.55-1.3) 04/05/21 04:00 Glucose 156 mg/dL (74-106) H 04/05/21 04:00 Uric Acid 7.7 mg/dL (2.6-6.0) H 03/26/21 03:30 Phosphorus 4.4 mg/dL (2.5-4.9) 04/04/21 06:40 Magnesium 2.4 mg/dL (1.8-2.4) 04/04/21 06:40 Total Bilirubin 0.2 mg/dL (0.2-1.0) 03/25/21 03:19 AST 63 U/L (15-37) H 03/25/21 03:19 ALT 32 U/L (12-78) 03/25/21 03:19 Alkaline Phosphatase 169 U/L (45-117) H 03/25/21 03:19 Troponin I 0.10 ng/mL (0.0-0.045) H 03/15/21 11:25 Triglycerides 214 mg/dL (<150) H 03/15/21 04:20 Cholesterol 296 mg/dL (<200) H 03/15/21 04:20 HDL Cholesterol 29 mg/dL (40-60) L 03/15/21 04:20 Cholesterol/HDL Ratio 10.21 03/15/21 04:20 Lipase 79 U/L (73-393) 03/14/21 19:50 Home Medications: Albuterol Sulfate [Albuterol Sulfate Hfa] 8.52 puff PO Q6H 03/15/21 Aspirin [Aspirin EC 81 MG] 81 mg PO DAILY 03/15/21 Carvedilol [Coreg] 12.5 mg PO BID 03/15/21 Dapagliflozin Propanediol [Farxiga] 5 mg PO DAILY 03/15/21 Linagliptin [Tradjenta] 5 mg PO DAILY 03/15/21 Topiramate [Topamax] 25 mg PO BID 03/15/21 Amlodipine [Norvasc*] 5 mg PO DAILY tab 04/06/21 Atorvastatin Calcium [Lipitor] 40 mg PO BEDTIME tab 04/06/21 Benzonatate [Tessalon Perle*] 100 mg PO TID PRN cap 04/06/21 Cholecalciferol (Vitamin D3) [Vitamin D 1000 Iu Tab*] 4,000 unit PO DAILY tab 04/06/21 Famotidine [Pepcid*] 20 mg PO BIDP PRN tab 04/06/21 Furosemide [Lasix*] 20 mg PO Q48H tab 04/06/21 Glucerna Shake [Glucerna*] 237 ml PO TID can 04/06/21 Insulin -Regular Human [Novolin -R*] See Protocol SQ ACHS ml 04/06/21 Insulin Glargine,Hum.rec.anlog [Semglee] 5 unit SQ BEDTIME ml 04/06/21 Melatonin 5 mg PO BEDTIME PRN PRN tablet 04/06/21 Polyethyl Gly 3350 [Glycolax*] 17 gm PO DAILY PRN udbot 04/06/21 Rivaroxaban [Xarelto*] 10 mg PO DAILY #7 tablet 04/06/21 Thyroid Tab [Vancourt Thyroid*] 30 mg PO DAILY@0600 tab 04/06/21 predniSONE [Deltasone*] 10 mg PO BID 5 Days tab 04/06/21 Diet: ADA Activity: Fall precautions Followup: Unknown,U [Primary Care Provider] - Time spent managing pt's care (in minutes): 40
[2021-04-06 17:39] VITALS: O2SAT 99
[2021-04-06 19:03] VITALS: BP 132/64; TEMP 97.6
--- NOTE | 2021-04-06 20:22 | PN ---
Subjective: The patient lying in bed. No new acute event. Chart reviewed. Denies any headache, na usea, vomiting, chest pain, abdominal pain, constipation, or diarrhea. Currently on 2 L nasal cannul a. Objective: Vital Signs: Temperature 97, pulse 71, respirations 18, blood pressure 131/63. Lungs: Basal crackles. Heart: S1, S2. Regular. Abdomen: Soft and nontender. Bowel sounds present. Extremities: No edema. Laboratory Data: WBC 5.4, hemoglobin 9.2, platelets 179. Chemistry shows sodium 142, potassium 4, c hloride 109, bicarb 28, BUN 57, creatinine 1.1, glucose is 156. Assessment And Plan: 1.COVID-19 pneumonia, on 2 L nasal cannula. 2.Anemia of chronic disease. 3.Diabetes mellitus. 4.Chronic kidney disease stage 3. 5.Hypothyroidism. Continue supportive care. Monitor for signs of infection. Continue pulmonary hygiene. We will foll ow the patient as needed. NF/MODL Voice ID: [id number] Report ID: [id number]
--- NOTE | 2021-04-07 02:13 | PN ---
Date of Progress Note: 04/06/2021 Chief Complaint: Acute kidney injury secondary to prerenal azotemia and nonoliguric ATN. Subjective: Urine output today is stable, renal function stabilized. Electrolytes are within normal limits. The patient primarily was admitted for chronic pneumonia. Review of Systems: Denies complaints. Physical Examination: Lungs: Normal respiratory effort. Heart: S1, S2. Abdomen: Soft. Extremities: No edema. Impression And Plan: 1.Acute kidney injury secondary to prerenal azotemia, nonoliguric, acute tubular necrosis. Continue to monitor fluid balance. Patient is on Lasix to prevent fluid overload. 2.Hypertension. Continue carvedilol and amlodipine. Monitor blood pressure closely. 3.Respiratory failure secondary to COVID pneumonia. Lasix was used to control volemia. EB/MODL Voice ID: [id number] Report ID: [id number]
== END 2021-04-06 19:50 | DRG 177 ==
LOC: ER 18:50 → ERHOLD 22:18 → 4TH 03-15 01:10
PROVIDERS: ADMIT Hospitalist; ATTEND Hospitalist
PROC: 5A0955A Assistance with Respiratory Ventilation, Greater than 96 Consecutive Hours, High Flow/Velocity Cannula (ICD-10-PCS; 2021-03-18)
PROC: 30233N1 Transfusion of Nonautologous Red Blood Cells into Peripheral Vein, Percutaneous Approach (ICD-10-PCS; principal; 2021-03-24)
DX: U07.1 COVID-19 (principal); J12.82 Pneumonia due to coronavirus disease 2019; J96.01 Acute respiratory failure with hypoxia; N17.0 Acute kidney failure with tubular necrosis; E43 Unspecified severe protein-calorie malnutrition; R78.81 Bacteremia; N39.0 Urinary tract infection, site not specified; I12.9 Hypertensive chronic kidney disease with stage 1 through stage 4 chronic kidney disease, or unspecified chronic kidney disease; E11.22 Type 2 diabetes mellitus with diabetic chronic kidney disease; E11.65 Type 2 diabetes mellitus with hyperglycemia; N18.30 Chronic kidney disease, stage 3 unspecified; E78.5 Hyperlipidemia, unspecified; G43.909 Migraine, unspecified, not intractable, without status migrainosus; R77.8 Other specified abnormalities of plasma proteins; R53.81 Other malaise; D50.9 Iron deficiency anemia, unspecified; E03.9 Hypothyroidism, unspecified; R79.89 Other specified abnormal findings of blood chemistry; K29.70 Gastritis, unspecified, without bleeding; E87.6 Hypokalemia; R45.3 Demoralization and apathy; Z68.27 Body mass index [BMI] 27.0-27.9, adult
CPT/HCPCS: 0240U; 36415; 36430; 71045; 80048; 80053; 80061; 80069; 80076; 80202; 81003; 81015; 82010; 82040; 82550; 82607; 82728; 82746; 82805; 82947; 83036; 83540; 83605; 83690; 83735; 84100; 84145; 84439; 84443; 84466; 84484; 84550; 85018; 85025; 85027; 85379; 85610; 85730; 86140; 86850; 86900; 86901; 87040; 87070; 87077; 87081; 87086; 87088; 87186; 87205; 93005; 94002; 94003; 94010; 94640; 94760; 96365; 96366; 96372; 96375; 97110; 97112; 97116; 97161; 97530; 99285; J1650; J2405; J2920; J2930; J3370; J3480; J7030; J7040; J7050; J7512; P9016

== ENCOUNTER 2021-09-26 15:11 | Emergency (ER) | payer BC ==
--- OUTSIDE RECORDS SUMMARY | 2021-09-26 15:15 | XMS REPORT | Continuity of Care Document ---
:1970 Author Organization [facility] [place] t Address [address] [place] [address] Care Team Providers Name Role Phone BENSON FISHMAN Primary Care Physician Unavailable MEGHAN Attending Clinician Unavailable [id number] Attending Clinician Unavailable JUANITA Attending Clinician Unavailable ANASTACIA ANNE Attending Clinician Unavailable Pob, Danielle Main Attending Clinician Unavailable Alyssa VILCHIS Attending Clinician ALYSSA Attending Clinician Unavailable Doctor Unassigned, Name Attending Clinician Unavailable Stephen Ojeda Attending Clinician Unavailable Juanita VILCHIS Attending Clinician Keith Carmen MD Attending Clinician Alex Attending Clinician Unavailable [id number] Admitting Clinician Unavailable Stephen Ojeda Admitting Clinician Unavailable Alex Admitting Clinician Unavailable Tez Fishman Admitting Clinician Unavailable Payers Payer Name Policy Type Policy Number Effective Date Expiration Date S ugy BCBSTX PPO AND [id number] 2021 OUT OF STATE 00:00:00 BCBS BCTP [id number] BCBS-SC: (PPO) [id number] 2019 2021 00:00:00 00:00:00 Problems Condition Condition Condition Status Onset Resolution Last Treating Co mments Source Name Details Category Date Date Treatment Clinician Date GADIEL GADIEL Disease Active Univers (obstructi (obstructi 9-21 it y of ve sleep ve sleep 00:00: [place] apnea) apnea) 00 Medical Branch Obesity Obesity Problem Active [place] 5-06 Family 00:00: Practic 00 e Irritable Irritable Problem Active [place] summer bowel Bowel 4-22 Family syndrome Syndrome 00:00: Practi c 00 e Low blood Low Blood Problem Active [place] summer pressure Pressure 6-18 Family 00:00: Practic 00 e Dizziness Dizziness Problem Active Bert summer and and 6-18 Family giddiness Giddiness 00:00: Prac tic e Essential Essential Problem Active Bert summer [...] 5-21 Family disorder Disorder 00:00: Practi c e Localized Localized Problem Active Bert summer edema Edema 5-21 Family 00:00: Practic 00 e Hypoxia Hypoxia Disease Active Univers 3-30 ity of 00:00: [place] [facility] Acute Acute Disease Active Univers diastolic diastolic 3-30 [place] of congestive congestive [place] heart heart 00 Medical failure failure Branch [...] of Problem Active [place] urine Urine 10-15 Family substance Substance 00:00: Prac tic level Level 00 e Hypothyroi Hypothyroi Problem Active [place] dism dism 09-12 Family 00:00: Practic 00 e Retinopath Retinopath Problem Active [place] y due to y Due to 09-12 Family type 2 Type 2 00:00: Practic diabetes Diabetes 00 e mellitus Mellitus Family Family Problem Active [facility] history of History of 09-12 Fa mary ann diabetes Diabetes 00:00: Practi c mellitus Mellitus 00 e Screening Screening Problem Active Bert summer for for 09-12 Family disorder Disorder 00:00: Practi c 00 e Tinea Tinea Problem Active [facility] pedis Pedis 09-12 Family 00:00: Practic 00 e Type 2 Type 2 Disease Active Univers diabetes diabetes 07-17 ity of mellitus mellitus 00:00: [place] [facility] Hyperlipid Hyperlipid Disease Active U nivers emia emia 5-13 ity of 00:00: Medical Branch Nephrolith Nephrolith Disease Active U nivers iasis iasis -13 ity of 00:00: Medical Branch Allergies, Adverse Reactions, Alerts Allergy Allergy Status Severity Reaction(s) Onset Inactive Treating Comm ents Source Name Type Date Date Clinician AMLODIPI DRUG Active Swelling 2020-03 Univer s NE INGREDI 2-20 ity of 00:00: [place] [facility] Amlodipi Propensi Active Swelling 2020-03 Univ ers ne ty to 2-20 ity of adverse 00:00: [place] reaction 00 Medical s Branch Sulfamet Propensi Active Swelling Univ ers hoxazole ty to 11-11 ity of adverse 00:00: [place] reaction 00 Medical s Branch Trimetho Propensi Active Swelling Univ ers prim ty to 11-11 ity of adverse 00:00: [place] reaction 00 Medical s Branch TRIMETHO DRUG Active Swelling Univer s PRIM INGREDI 11-11 ity of 00:00: [place] 00 Medical Branch SULFAMET DRUG Active Low Swelling Univer s HOXAZOLE INGREDI 11-11 ity of 00:00: [place] 00 Medical Branch Lisinopr Propensi Active Cough Univer s il ty to 5-10 ity of adverse 00:00: [place] reaction Medical s Branch LISINOPR DRUG Active COUGH Univers IL INGREDI 5-10 ity of 00:00: [place] 00 Medical Branch No Known DA Active U 2019-0 [facility] Allergie 18 [place] 00:00: d 00 Medical [place] No Known DA Active U 0 [facility] Allergie 18 [place] 00:00: d 00 Medical [place] Tramadol Propensi Active Itching Unive rs ty to 08-10 ity of adverse 00:00: [place] reaction Medical s Branch TRAMADOL DRUG Active ITCHING Univers INGREDI 08-10 ity of 00:00: [place] 00 Medical Branch Metformi Allergy Active Diarrhea [place] ge n to Family substanc Practic e e Ramipril Allergy Active Rash [place] to Family substanc Practic e e Tramadol Allergy Active Hives [place] to Family substanc Practic e e Social History Social Habit Start Date Stop Date Quantity Comments Source Exposure to Not sure [facility] SARS-CoV-2 [facility] (event) [place] Alcohol intake 2021-01-26 2021-01-26 .48 /d University of 00:00:00 00:00:00 [facility] Tobacco use and 2020-11-11 2020-11-11 Never used Universit y of exposure 00:00:00 00:00:00 [facility] Tobacco Comment 2020-11-11 2020-11-11 quit 30 yrs ago Univ ersity of 00:00:00 00:00:00 [facility] Sex [birth year] At [birth year] Universit y of 00:00:00 00:00:00 [facility] Smoking Status Start Date Stop Date Source Never Smoker [place] [facility] Former smoker 2020-11-11 00:00:00 2020-11-11 00:00:00 Universi ty of [facility] Medications Ordered Filled Start Stop Current Ordering Indication Dosage Frequency Signature Comments Components Source Medication Medication Date Date Medication? Clinician (SIG) Name Name cloniDINE 2020-03 Yes [id number] 1{patch Apply 1 Univers 0.1 mg/24 2-20 } Patch to ity of hr patch 00:00: skin [place] 00 weekly. Medical Branch cloniDINE 2020-03 Yes [id number] 1{patch Apply 1 Univers 0.1 mg/24 2-20 } Patch to ity of hr patch 00:00: skin [place] 00 weekly. Medical Branch cloniDINE 2020-03 Yes [id number] 1{patch Apply 1 Univers 0.1 mg/24 2-20 } Patch to ity of hr patch 00:00: skin [place] 00 weekly. Medical Branch carvediloL 2020-03 Yes 12.5mg Take 12.5 Univers 12.5 mg 2-09 mg by ity of tablet 15:47: mouth 2 [place] [address] (two) Medical times Branch daily with meals. carvediloL 2020-03 Yes 12.5mg Take 12.5 Univers 12.5 mg 2-09 mg by ity of tablet 15:47: mouth 2 [place] [address] (two) Medical times Branch daily with meals. carvediloL 2020-03 Yes 12.5mg Take 12.5 Univers 12.5 mg 2-09 mg by ity of tablet 15:47: mouth 2 [place] [address] (two) Medical times Branch daily with meals. carvediloL 2020-03 Yes 12.5mg Take 12.5 Univers 12.5 mg 2-09 mg by ity of tablet 15:47: mouth 2 [place] [address] (two) Medical times Branch daily with meals. insulin 2020-03 Yes inject Univers aspart -22 under the ity of (NOVOLOG 11:25: skin. Per [place] s FLEXPEN 42 Medical U-100 Branch INSULIN SC) aspirin 81 2020-03 Yes 81mg Take 81 mg U nivers mg chewable 22 by mouth ity of tablet 11:25: daily. [address] Branch dapaglifloz 2020-03 Yes Take by Un arturo in -22 mouth ity of (FARXIGA) 5 11:25: [place]. [place] mg tablet [place] Branch linaGLIPtin 2020-03 Yes Take by Un arturo (TRADJENTA) -22 mouth ity of 5 mg tablet 11:25: [place]. [place] 42 [place] TURMERIC 2020-03 Yes 500mg Take 500 Univ ers ORAL 1-22 mg by ity of 11:25: mouth 2 [place] [address] (two) Medical times Branch daily. Cholecalcif 2020-03 Yes Take by Un arturo kassidy, 03-28 mouth ity of Vitamin D3, 11:25: daily. [place] (VITAMIN 42 Medical D3) 25 mcg Branch (1,000 unit) capsule bumetanide 2020-03 Yes 1mg 1 mg at Univ ers 1 mg tablet 03-28 bedtime. ity of 11:25: [address] Branch ergocalcife 2020-03 Yes [id number] Take Univ ers rol, - 50,000 ity of vitamin d2, 11:25: Units [place] (VITAMIN 42 mouth Medical D2) 1,250 weekly. Branch mcg (50,000 unit) capsule nystatin 2020-03 Yes Take by Unive rs 100,000 03-28 mouth 4 ity of unit/mL 11:25: (four) [place] suspension times Medical daily. Branch insulin 2020-03 Yes inject Univers aspart 03-28 under the ity of (NOVOLOG 11:25: skin. Per Glo mendoza FLEXPEN SS Medical U-100 Branch INSULIN SC) aspirin 81 2020-03 Yes 81mg Take 81 mg U nivers mg chewable 03-28 by mouth ity of tablet 11:25: daily. [address] Branch dapaglifloz 2020-03 Yes Take by Un arturo in 03-28 mouth ity of (FARXIGA) 5 11:25: daily. [place] mg tablet Medical Branch linaGLIPtin 2020-03 Yes Take by Un arturo (TRADJENTA) 03-28 mouth ity of 5 mg tablet 11:25: daily. [place] Medical Branch TURMERIC 2020-03 Yes 500mg Take 500 Univ ers ORAL 1-22 mg by ity of 11:25: mouth 2 [place] [address] (two) Medical times Branch daily. Cholecalcif 2020-03 Yes Take by Un arturo kassidy, - mouth ity of Vitamin D3, 11:25: daily. [place] (VITAMIN 42 Medical D3) 25 mcg Branch (1,000 unit) capsule bumetanide 2020-03 Yes 1mg 1 mg at Univ ers 1 mg tablet 03-28 bedtime. ity of 11:25: [address] Branch ergocalcife 2020-03 Yes [id number] Take Univ ers rol, - 50,000 ity of vitamin d2, 11:25: Units [place] (VITAMIN 42 mouth Medical D2) 1,250 weekly. Branch mcg (50,000 unit) capsule nystatin 2020-03 Yes Take by Unive rs 100,000 03-28 mouth 4 ity of unit/mL 11:25: (four) [place] suspension 42 times Medical daily. Branch insulin 2020-03 Yes inject Univers aspart 03-28 under the ity of (NOVOLOG 11:25: skin. Per [place] FLEXPEN 42 SS Medical U-100 Branch INSULIN SC) aspirin 81 2020-03 Yes 81mg Take 81 mg U nivers mg chewable 03-28 by mouth ity of tablet 11:25: daily. [address] Branch dapaglifloz 2020-03 Yes Take by Un arturo in 03-28 mouth ity of (FARXIGA) 5 11:25: [place]. [place] [address] Medical Branch linaGLIPtin 2020-03 Yes Take by Un arturo (TRADJENTA) 03-28 mouth ity of 5 mg tablet 11:25: [place]. [place] TURMERIC 2020-03 Yes 500mg Take 500 Univ ers ORAL -22 mg by ity of 11:25: mouth 2 [place] [address] (two) Medical times Branch daily. Cholecalcif 2020-03 Yes Take by Un arturo kassidy, 03-28 mouth ity of Vitamin D3, 11:25: daily. [facility] s (VITAMIN 42 Medical D3) 25 mcg Branch (1,000 unit) capsule bumetanide 2020-03 Yes 1mg 1 mg at Univ ers 1 mg tablet 03-28 bedtime. ity of 11:25: [address] Branch ergocalcife 2020-03 Yes [id number] Take Univ ers rol, 03-28 50,000 ity of vitamin d2, 11:25: Units [place] (VITAMIN 42 mouth Medical D2) 1,250 weekly. Branch mcg (50,000 unit) capsule nystatin 2020-03 Yes Take by Unive rs 100,000 03-28 mouth 4 ity of unit/mL 11:25: (four) [place] suspension 42 times Medical daily. Branch insulin 2020-03 Yes inject Univers aspart 03-28 under the ity of (NOVOLOG 11:25: skin. Per [place] s FLEXPEN 42 SS Medical U-100 Branch INSULIN SC) aspirin 81 2020-03 Yes 81mg Take 81 mg U nivers mg chewable 03-28 by mouth ity of tablet 11:25: daily. [place] [address] Medical Branch dapaglifloz 2020-03 Yes Take by Un arturo in 03-28 mouth ity of (FARXIGA) 5 11:25: daily. [place] mg tablet Medical Branch linaGLIPtin 2020-03 Yes Take by Un arturo (TRADJENTA) 03-28 mouth ity of 5 mg tablet 11:25: [place]. [place] 42 [place] TURMERIC 2020-03 Yes 500mg Take 500 [facility] ers ORAL 1-22 mg by ity of 11:25: mouth 2 [place] 42 (two) Medical times Branch daily. Cholecalcif 2020-03 Yes Take by Un arturo kassidy, 03-28 mouth ity of Vitamin D3, 11:25: daily. [facility] (VITAMIN 42 Medical D3) 25 mcg Branch (1,000 unit) capsule bumetanide 2020-03 Yes 1mg 1 mg at [facility] ers 1 mg tablet 03-28 bedtime. ity of 11:25: [address] Branch ergocalcife 2020-03 Yes [id number] Take [facility] ers rol, 03-28 50,000 ity of vitamin d2, 11:25: Units by Leighton mott (VITAMIN 42 mouth Medical D2) 1,250 weekly. Branch mcg (50,000 unit) capsule nystatin 2020-03 Yes Take by Unive rs 100,000 03-28 mouth 4 ity of unit/mL 11:25: (four) [place] suspension 42 times Medical daily. Branch amLODIPine 2020-03- No [id number] 10mg Take 1 Univers 10 mg 03-28 tablet by ity of tablet 00:00: 00:00 mouth [place] 00 :00 daily. Medical Branch topiramate 2020-03 Yes [id number] 25mg Take 1 Univers 25 mg 0-21 tablet by ity of tablet 00:00: mouth 2 00 (two) Medical times Branch daily. topiramate 2020-03 Yes [id number] 25mg Take 1 Univers 25 mg 0-21 tablet by ity of tablet 00:00: mouth 2 [place] 00 (two) Medical times Branch daily. topiramate 2020-03 Yes [id number] 25mg Take 1 Univers 25 mg 0-21 tablet by ity of tablet 00:00: mouth 2 [place] 00 (two) Medical times Branch daily. topiramate 2020-03 Yes [id number] 25mg Take 1 Univers 25 mg 0-21 tablet by ity of tablet 00:00: mouth 2 [place] 00 (two) Medical times Branch daily. spironolact 2020-0 Yes [id number] 25mg Take 1 Univers one 25 mg 9-21 02 tablet by ity o f tablet 00:00: mouth [place] 00 daily. Medical Branch thyroid 2020-0 Yes [id number] 15mg Take 0.5 Un arturo (ARMOUR 9-21 tablets by ity of THYROID) 30 00:00: mouth [place] mg tablet 00 every Medical morning. Branch spironolact 2020-0 Yes [id number] 25mg Take 1 Univers one 25 mg 9-21 02 tablet by ity o f tablet 00:00: mouth [place] 00 daily. Medical Branch thyroid 2020-0 Yes [id number] 15mg Take 0.5 Un arturo (ARMOUR 9-21 tablets by ity of THYROID) 30 00:00: mouth [place] mg tablet 00 every Medical morning. Branch spironolact 2020-0 Yes [id number] 25mg Take 1 Univers one 25 mg 9-21 02 tablet by ity o f tablet 00:00: mouth [place] 00 daily. Medical Branch thyroid 2020-0 Yes [id number] 15mg Take 0.5 Un arturo (ARMOUR 9-21 tablets by ity of THYROID) 30 00:00: mouth [place] mg tablet 00 every Medical morning. Branch spironolact 2020-0 Yes [id number] 25mg Take 1 Univers one 25 mg 9-21 02 tablet by ity o f tablet 00:00: mouth [place] 00 daily. Medical Branch thyroid 2020-0 Yes [id number] 15mg Take 0.5 Un arturo (ARMOUR 9-21 tablets by ity of THYROID) 30 00:00: mouth [place] mg tablet 00 every Medical morning. Branch gabapentin 2020-0 Yes [id number] 100mg Take 1 Univers 100 mg 3-19 capsule by ity of capsule 00:00: mouth 3 [place] 00 (three) Medical times Branch daily. gabapentin 2020-0 Yes [id number] 100mg Take 1 Univers 100 mg 3-19 capsule by ity of capsule 00:00: mouth 3 [place] 00 (three) Medical times Branch daily. gabapentin 2020- Yes [id number] 100mg Take 1 Univers 100 mg 3-19 capsule by ity of capsule 00:00: mouth 3 [place] 00 (three) Medical times Branch daily. gabapentin 2020-0 Yes [id number] 100mg Take 1 Univers 100 mg 3-19 capsule by ity of capsule 00:00: mouth 3 [place] 00 (three) Medical times Branch daily. flash 2020-0 Yes [id number] 1{appli 1 Unive rs glucose 3-31 catorfu Applicator ity of scanning 00:00: l} ful 4 [place] reader 00 (four) Medical (FREESTYLE times Branch TEA 14 daily. DAY READER) Check Misc glucose QID as directed flash 2020-0 Yes [id number] 1{appli 1 Unive rs glucose 3-31 cator} Applicator ity of sensor 00:00: 4 (four) [place] (FREESTYLE 00 times Medical TEA 14 daily. Branch DAY SENSOR) Kit flash 2020-0 Yes [id number] 1{appli 1 Unive rs glucose 3-31 catorfu Applicator ity of scanning 00:00: l} ful 4 [place] reader 00 (four) Medical (FREESTYLE times Branch TEA 14 daily. DAY READER) Check Misc glucose QID as directed flash 2020-0 Yes [id number] 1{appli 1 Unive rs glucose 3-31 cator} Applicator ity of sensor 00:00: 4 (four) [place] (FREESTYLE 00 times Medical TEA 14 daily. Branch DAY SENSOR) Kit flash 2020-0 Yes [id number] 1{appli 1 Unive rs glucose 3-31 catorfu Applicator ity of scanning 00:00: l} ful 4 [place] reader 00 (four) Medical (FREESTYLE times Branch TEA 14 daily. DAY READER) Check Misc glucose QID as directed flash 2020-0 Yes [id number] 1{appli 1 Unive rs glucose 3-31 cator} Applicator ity of sensor 00:00: 4 (four) [place] (FREESTYLE 00 times Medical TEA 14 daily. Branch DAY SENSOR) Kit flash 2020-0 Yes [id number] 1{appli 1 Unive rs glucose 3-31 catorfu Applicator ity of scanning 00:00: l} ful 4 [place] reader 00 (four) Medical (FREESTYLE times Branch TEA 14 daily. DAY READER) Check Misc glucose QID as directed flash 2020-0 Yes [id number] 1{appli 1 Unive rs glucose 3-31 cator} Applicator ity of sensor 00:00: 4 (four) [place] (FREESTYLE 00 times Medical TEA 14 daily. 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 Tradjenta 5 Tradjenta 5 No Tradjenta [facility] mg tablet mg tablet 5 mg Famil y TAKE 1 TAKE 1 tablet Practic TABLET BY TABLET BY TAKE 1 e MOUTH ONCE MOUTH ONCE TABLET BY DAILY IN DAILY IN MOUTH ONCE THE MORNING THE MORNING DAILY IN THE MORNING Vitamin D2 Vitamin D2 No Vitamin D2 [facility] Family Practic e Vitamin D3 Vitamin D3 No Vitamin D3 [facility] 1000 IU 1000 IU 1000 IU Family DAILY DAILY DAILY Practic e Vital Signs Vital Name Observation Time Observation Value Comments Source BP Diastolic 2020-07-10 00:00:00 86 mm[Hg] [facility] Height 2020-07-10 00:00:00 62 [in_i] [facility] BMI (Body Mass 2020-07-10 00:00:00 33.5 kg/m2 Reva dinah Family Index) Practice BP Systolic 2020-07-10 00:00:00 137 mm[Hg] [facility] Body Weight 2020-07-10 00:00:00 183 [lb_av] [facility] BP Diastolic 2020-02-07 00:00:00 78 mm[Hg] [facility] Practice Height 2020-02-07 00:00:00 62 [in_i] [facility] Practice BMI (Body Mass 2020-02-07 00:00:00 33 kg/m2 [facility] e Family Index) Practice BP Systolic 2020-02-07 00:00:00 122 mm[Hg] [facility] Practice Body Weight 2020-02-07 00:00:00 180.2 [lb_av] [facility] Practice BP Diastolic 2019-12-24 00:00:00 78 mm[Hg] [facility] Practice Height 2019-12-24 00:00:00 62 [in_i] [facility] Practice BMI (Body Mass 2019-12-24 00:00:00 31.5 kg/m2 [facility] e Family Index) Practice BP Systolic 2019-12-24 00:00:00 110 mm[Hg] [facility] Body Weight 2019-12-24 00:00:00 172 [lb_av] [facility] Procedures Procedure Date / Time Performed Performing Clinician [facility] e CONSENT/REFUSAL FOR 2021-06-23 18:30:15 Doctor Unassigned, No [facility] DIAGNOSIS AND Name Medical Branch TREATMENT ASSIGNMENT OF BENEFITS 2021-06-23 18:30:01 Doctor Unassigned, No [facility] Name Medical Branch [id number] 2021-04-21 00:00:00 ENCPL Plan of Care Planned Activity Planned Date Details Comments Source Diagnostic Test 2020-07-10 glucose, fingerstick, Bert wheeler Family Pending 00:00:00 blood [code = Practice glucose, fingerstick, blood] Diagnostic Test 2020-07-10 hemoglobin A1C, Basil stewart Pending 00:00:00 fingerstick [code = Practice hemoglobin A1C, fingerstick] Encounters Start End Encounter Admission Attending Care Care Encounter Source Date/Time Date/Time Type Type Clinicians Facility Department ID 2021-09-22 Outpatient [facility] [id number] [place] 17:34:30 [id number] Health 2021-09-18 Outpatient HILTON, [facility] [id number] [place] 13:11:20 CHALO [id number] Health 2021-09-17 Outpatient [facility] [id number] [place] 13:49:24 [id number] [facility] 2021-09-16 Outpatient MEGHAN, [facility] [id number] [place] 14:24:43 CHALO [id number] [facility] 2021-04-02 Outpatient 3 [id number] E[facility] PUL [id number] E[facility] 13:46:27 0122021-04-02 Outpatient 3 [id number] E[facility] PUL [id number] E[facility] 13:45:28 [id number] Outpatient 3 [id number] E[facility] PUL [id number] E[facility] 13:44:46 0118 2021-04-02 Outpatient 3 [id number] E[facility] REF [id number] ENC[facility] 13:43:23 0114 2021-07-13 2021-07-13 Outpatient R JUANITA, [facility] [id number] Univers 09:20:00 09:20:00 DANYA [id number] ity o f [facility] 2021-07-06 2021-07-07 Outpatient DAYANA, SAVANNAH CAR [id number] MHNE 16:36:00 15:54:00 NADJUAN MANUEL 2021-06-23 2021-06-23 Cook Soup Makayla, 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 [facility] [id number] Univers 13:45:00 14:00:00 Visit Grzegorz Haynes [id number] ity [facility] [id number] [place] PROFESS[place] [id number] [address] 2021-06-23 2021-06-23 Outpatient R [facility] [id number] Univers 13:45:00 13:45:00 [id number] ity [facility] 2021-06-23 2021-06-23 Outpatient R ALYSSA [facility] [id number] Univers 13:45:00 13:45:00 GRZEGORZ cazares [facility] 2021-06-23 2021-06-23 Orders Doctor SANDOVAL [id number] Univers 00:00:00 00:00:00 Only Unassigned, KRISTAN [id number] ity of [place] [facility] [id number] Johnathan as [id number] [address] 2021-04-06 2021-04-25 Inpatient 3 Khalik, ENCPL PUL [id number] ENCPL 20:57:00 12:25:00 Stephen 0131 2021-03-02 2021-03-02 [facility] [id number] Univers 13:00:00 13:00:00 GUERREROLI [id number] ity o f [facility] 2021-02-23 2021-02-23 Telephone [facility] [id number] Univers 00:00:00 00:00:00 Danya HAY [id number] ity of [place] [id number] PROFESS[place] [id number] [address] 2021-02-09 2021-02-09 [facility] [id number] Univers 00:00:00 00:00:00 Danya HAY [id number] ity of [facility] [id number] [place] PROFESS[place] [id number] [address] 2020-09-23 2020-09-23 [facility] [id number] 11:10:57 11:46:21 Visit Benson Keith Hay [id number] [place] [id number] Professio [id number] [address] 2020-07-12 2020-07-12 Outpatient Daniel_T VFP VFP [id number] [facility] 01:24:00 01:24:00 [id number] Family Practic e 2020-07-12 2020-07-12 Outpatient Daniel_T VFP VFP [id number] [facility] 01:22:00 01:22:00 [id number] Family Practic e 2020-07-10 2020-07-10 Outpatient Daniel_T VFP VFP [id number] [facility] 11:45:00 11:45:00 [id number] Family Practic e 2020-07-10 2020-07-10 Samm VFP [place] - [id number] V illage 00:00:00 00:00:00 [facility] Negar Turner - Eleazar sanz MD: [id number] VM_HOU_Shad dinah [facility] [address], [place] [address] , Ph. 2020-04-10 2020-04-10 Outpatient Daniel_T VFP VFP [id number] [id number] Village 07:43:00 07:43:00 [id number] Family Practic e 2020-03-14 2020-03-14 Outpatient Daniel_T VFP VFP [id number] [facility] 03:25:00 03:25:00 [id number] Family Practic e 2020-03-01 2020-03-01 Outpatient Daniel_T VFP VFP [id number] [facility] 01:02:00 01:02:00 [id number] Family Practic e 2020-02-11 2020-02-11 Outpatient Daniel_T VFP VFP [id number] [facility] 07:53:00 07:53:00 Family Practic e 2020-02-11 2020-02-11 Outpatient Daniel_T VFP VFP [id number] [facility] 07:53:00 07:53:00 [id number] Family Practic e 2020-02-07 2020-02-07 Outpatient Daniel_T VFP VFP [id number] [facility] 04:53:00 04:53:00 Family Practic e 2020-02-07 2020-02-07 Samm VFP [place] - [id number] V illage 00:00:00 00:00:00 [facility] [facility] Pracdonnie sanz MD: [id number] VM_HOU_Alphonse dinah Shadow [facility], [facility] [address], [place] [address] , Ph. 2019-12-31 2019-12-31 Outpatient Daniel_T VFP VFP [id number] [facility] 02:04:00 02:04:00 [id number] Family Practic e 2019-12-24 2019-12-24 Outpatient Daniel_T VFP VFP [id number] 0-20 [facility] 12:34:00 12:34:00 [id number] Family Practic e 2019-12-24 2019-12-24 Samm VFP [place] - [id number] [facility] 00:00:00 00:00:00 [facility] Family Negar Alexander MD: [id number] VM_HOU_Dani dinah [facility], [facility] [address], [place] [address] , Ph. 2019-12-13 2019-12-13 Outpatient Daniel_T VFP VFP [id number] [id number] [facility] 04:08:00 04:08:00 Family Practic e 2019-12-13 2019-12-13 Outpatient Daniel_T VFP VFP [id number] [id number] [facility] 04:08:00 04:08:00 [id number] Family Practic e 2019-12-03 2019-12-03 Outpatient Daniel_T VFP VFP [id number] [id number] [facility] 03:40:00 03:40:00 [id number] Family Practic e 2019-11-07 2019-11-07 Outpatient Daniel_T VFP VFP [id number] 0-20 [facility] 10:47:00 10:47:00 [id number] Family Practic e 2019-08-23 2019-09-06 Inpatient HCAPM KEI [id number] [facility] 16:12:00 01:47:20 81 [facility] 2019-08-23 2019-08-26 Inpatient HCAPM KEI [id number] [facility] 16:16:00 22:36:52 93 [facility] Results Test Description Test Time Test Comments [...] N Completed by Nursing: NONT PRO-BRAIN NATRIURETIC [id number] 18:36:00 Test Item Value Reference Range Interpretation Comments NT PRO-BRAIN NATRIURETIC PEPTI 368 PG/ML 0-100 H (test code = PROBNP) Completed by Nursing: [id number] 18:36:00 Test Item Value Reference Range Interpretation [...] Completed by Nursing: NODRUGS OF ABUSE SCREEN [id number] 18:36:00 Test Item Value Reference Range Interpretation [...] NEGATIVE SCcutoff <300 NG/ML [place]) BASIC METABOLIC [id number] 18:32:00 Test Item Value Reference Range Interpretation [...] N Completed by Nursing: NONT PRO-BRAIN NATRIURETIC [id number] 18:32:00 Test Item Value Reference Range Interpretation Comments NT PRO-BRAIN NATRIURETIC PEPTI (test PG/ML 0-100 code = PROBNP) Completed by Nursing: [id number] 18:32:00 Test Item Value Reference Range Interpretation Comments TROPONIN-I (test code = TROPI) NG/ML 0.000-0.045 Completed by Nursing: NOCBC W/AUTO [id number] 18:20:00 Test Item Value Reference Range Interpretation [...] CRITERIA = MDIFF) - CT HEAD/BRAIN W/O [id number] 17:04:00 Name: [facility] : 1970 Age/S: 49 / F [id number] [address] [place] Unit #: [id number] Loc: [place] [address] Phys: Domenica Quinn MD Acct: [id number] Dis Date: Status: PRE ER PHONE #: [phone] Exam Date: 08/23/2019 5374 FAX #: Reason: syncope EXAMS: CPT: [id number] CT HEAD/BRAIN W/O CONT 28370 INDICATIONS: syncope TECHNIQUE: Contiguous axial CT sections were obtained from the skull base to the vertex without intravenous contrast administration. CT DLP dose: 804 mGy centimeters. Iterative dose reduction technique utilized. Location: [id number]: None available. FINDINGS: The brain parenchyma is [...] CC: Domenica Quinn MD; Ly JOSE; Jeet Fishman MD Technologist:Praveena Lora, RT(R)(CT) CTDI: DLP: Trnscb Date/Time: 08/23/2019 (1704) [email or web address] Orig Print D/T: S: 08/23/2019 (1626) PAGE 1 Signed Report
[2021-09-26 16:11] LABS: Absolute Lymphocytes (CBC) 0.5 K/uL (0.7-4.9); Hematocrit 27.1 % (36.0-45.0); Lymphocytes % 13.5 % (15.3-44.8); MCV 84.1 fL (80-100); MPV 8.4 fL (7.6-11.3); RBC Red Blood Cell Count 3.22 M/uL (3.86-4.86)
[2021-09-26 16:21] LABS: SARS-CoV-2 Antigen Rapid Res Negative (Negative)
[2021-09-26] MEDS ORDERED: NA CHLORIDE 0.9% 250 ML ONE (18:16)
[2021-09-26] MEDS ORDERED: ONDANSETRON 4 MG/2 ML VIAL ONE (18:16)
[2021-09-26] MEDS ORDERED: POTASSIUM CL SA 10 MEQ TAB PO ONE (18:16)
--- NOTE | 2021-09-26 18:37 | ER ---
Nurse's Notes [facility] Name: Alyson Mayfield Age: 51 yrs Sex: Female : 1970 Arrival Date: 09/26/2021 Time: 15:13 Bed 12 Private MD: Jeet Manley Diagnosis: Acute upper respiratory infection, unspecified;Vomiting Presentation: 09/26 15:18 Chief complaint: Patient states: body aches, cough, runny nose, headache, loss of smell vg1 and NV for [address] Manley and was prescribed medication, Azithromycin and Benzonatate. Coronavirus screen: Vaccine status: Patient reports being unvaccinated. Client denies travel out of the [place] in the last 14 days. Ebola Screen: Patient denies exposure to infectious person. Patient denies travel to an Ebola-affected area in the 21 days before illness onset. Initial Sepsis Screen: Does the patient meet any 2 criteria? No. Patient's initial sepsis screen is negative. Does the patient have a suspected source of infection? No. Patient's initial sepsis screen is negative. Risk Assessment: Do you want to hurt yourself or someone else? Patient reports no desire to harm self or others. Onset of symptoms was September 24, 2021. 15:18 Method Of Arrival: Ambulatory vg1 15:18 Acuity: KLAUS 4 vg1 Triage Assessment: 15:21 General: Appears in no apparent distress. uncomfortable, Behavior is calm, cooperative. vg1 Pain: Complains of pain in generalize body Pain currently is 8 out of 10 on a pain scale. Respiratory: Reports cough that is productive, Airway is patent Respiratory effort is even, labored. 15:21 GI: Reports nausea, vomiting. vg1 GASTROENTEROLOGY PHYSICIAN: 18:51 LMP N/A - Post-menopause bh1 Historical: - Allergies: 15:21 Bactrim; vg1 15:21 Tramadol HCl; vg1 - Home Meds: 15:21 carvedilol 12.5 mg Oral tab 1 tab every 12 hours [Active]; [place] Thyroid 30 mg Oral vg1 tab daily [Active]; Farxiga 5 mg Oral tab 1 tab once daily [Active]; Tradjenta 5 mg Oral tab 1 tab once daily [Active]; topiramate 25 mg Oral cp24 1 cap once daily [Active]; - PMHx: 15:21 CHF; Diabetes - NIDDM; Hypertension; Kidney stones; Thyroid problem; vg1 - PSHx: 15:21 Cholecystectomy; vg1 - Immunization history:: Client reports having NOT received the Covid vaccine. - Social history:: Smoking status: Patient denies any tobacco usage or history of. Screenin:31 Abuse screen: Denies threats or abuse. Nutritional screening: No deficits noted[facility] Tuberculosis screening: No symptoms or risk factors identified. Fall Risk None identified. Assessment: 15:31 Reassessment: No changes from previously documented assessment. [facility] Vital Signs: 15:18 BP 151 / 77; Pulse 79; Resp 16; Temp 98.2; Pulse Ox 98% on R/A; Weight 56.7 kg; Height [facility] 5 ft. 2 in. (157.48 cm); Pain 8/10; 17:29 BP 161 / 77; Pulse 81; Resp 20; Temp 98.3; Pulse Ox 96% on R/A; bh1 18:50 BP 153 / 70; Pulse 88; Resp 18; Temp 98.6(TE); Pulse Ox 98% on R/A; 1 15:18 Body Mass Index 22.86 (56.70 kg, 157.48 cm) 1 ED Course: 15:13 Patient arrived in ED. mr 15:13 Jeet Manley is Private Physician. mr 15:18 Lincoln Ty [facility] 15:18 Nicki Miller is Attending Physician. [facility] 15:21 Triage completed. 1 15:21 Arm band placed on. [facility] 15:31 Rachel Schaffer, RN is Primary Nurse. [facility] 15:31 No apparent distress. Resting quietly. Awaiting ED provider evaluation. 1 15:31 Patient has correct armband on for positive identification. 1 15:31 No provider procedures requiring assistance completed. Patient did not have IV access [facility] during this emergency room visit. 16:02 Strep Sent. 1 16:02 Influenza Screen (a \T\ B) Sent. 1 16:02 SARS RAPID Sent. 1 16:02 BMP Sent. 1 16:02 CBC with Diff Sent. 1 16:02 Inserted saline lock: 20 gauge in right forearm, using aseptic technique. Blood [facility] collected. 18:02 Throat Culture Sent. bh1 18:51 IV discontinued, intact, bleeding controlled, No redness/swelling at site. 1 Administered Medications: 18:10 Drug: Potassium Chloride 40 mEq Route: PO; 1 18:23 Follow up: Response: No adverse reaction [facility] 18:10 Drug: NS 0.9% 250 ml Route: IV; Rate: bolus; Site: right antecubital; 1 18:31 Follow up: IV Status: Infusion continued; IV Intake: 250ml [facility] 18:10 Drug: Zofran (Ondansetron) 4 mg Route: IVP; Site: right antecubital; 1 18:23 Follow up: Response: No adverse reaction [facility] 18:37 Drug: Rocephin (cefTRIAXone) 1 grams Route: IV; Rate: calculated rate; Site: right [facility] antecubital; 18:37 Follow up: IV Status: Infusion continued [facility] Medication: 15:31 VIS not applicable for this client. [facility] Intake: 18:31 IV: 250ml; Total: 250ml. [facility] Outcome: 18:37 Discharge ordered by . alton 18:51 Discharged to home ambulatory. [facility] 18:51 Condition: good 18:51 Discharge instructions given to patient, Instructed on discharge instructions, follow up and referral plans. medication usage, Demonstrated understanding of instructions, follow-up care, medications, Prescriptions given X 2. 18:51 Patient left the ED. [facility] Signatures: Lincoln Ty PA PA jmm Rivera, Mary mr NietoHarriet, RN RN 1 Rachel Scahffer RN RN [facility]
--- NOTE | 2021-09-26 18:37 | EDPHYS ---
Physician Documentation [facility] Name: Alyson Mayfield Age: 51 yrs Sex: Female : 1970 Arrival Date: 09/26/2021 Time: 15:13 Bed 12 Private MD: Jeet Manley ED Physician Nicki Miller HPI: 09/26 15:43 This 51 yrs old Female presents to ER via Ambulatory with complaints of Flu jmm Symptoms. 15:43 The patient or guardian reports cough. Onset: The symptoms/episode began/occurred jm gradually, 4 day(s) ago. Modifying factors: The symptoms are alleviated by nothing. the symptoms are aggravated by nothing. Associated signs and symptoms: Pertinent positives: rhinorrhea, sore throat, vomiting. This is a 51-year-old female with a history of CHF, diabetes mellitus, hypertension, kidney stones, the presents emergency department with complaints of cough, congestions, sore throat. Multiple episodes of vomiting. Patient states he has had difficulty tolerating fluids. Patient was prescribed azithromycin hydroxyzine chloroquine, and Tessalon Perles with little relief of symptoms.. [place]TER: 18:51 LMP N/A - Post-menopause bh1 Historical: - Allergies: 15:21 Bactrim; vg1 15:21 Tramadol HCl; vg1 - Home Meds: 15:21 carvedilol 12.5 mg Oral tab 1 tab every 12 hours [Active]; [place] Thyroid 30 mg Oral vg1 tab daily [Active]; Farxiga 5 mg Oral tab 1 tab once daily [Active]; Tradjenta 5 mg Oral tab 1 tab once daily [Active]; topiramate 25 mg Oral cp24 1 cap once daily [Active]; - PMHx: 15:21 CHF; Diabetes - NIDDM; Hypertension; Kidney stones; Thyroid problem; vg1 - PSHx: 15:21 Cholecystectomy; vg1 - Immunization history:: Client reports having NOT received the Covid vaccine. - Social history:: Smoking status: Patient denies any tobacco usage or history of. ROS: 15:43 Constitutional: Positive for body aches, chills. jmm 15:43 ENT: Positive for ear pain, sinus congestion, sore throat. 15:43 Respiratory: Positive for cough. 15:43 Abdomen/GI: Positive for nausea, vomiting. 15:43 All other systems are negative. Exam: 15:43 Constitutional: This is a well developed, well nourished patient who is awake, alert, jmm and in no acute distress. Head/Face: atraumatic. Eyes: EOMI, no conjunctival erythema appreciated 15:43 Neck: Trachea midline, Supple Chest/axilla: Normal chest wall appearance and motion. 15:43 Respiratory: Normal respirations, no respiratory distress appreciated Abdomen/GI: Non distended Back: Normal ROM Skin: General appearance color normal MS/ Extremity: Moves all extremities, no obvious deformities appreciated, no edema noted to the lower extremities Neuro: Awake and alert Psych: Behavior is normal, Mood is normal, Patient is cooperative and pleasant 15:43 ENT: TM's: erythema, that is mild, bilaterally, Posterior pharynx: erythema, that is mild. 15:43 Cardiovascular: Rate: normal, Rhythm: regular. 15:43 Abdomen/GI: Inspection: abdomen appears normal, Bowel sounds: normal, Palpation: abdomen is soft and non-tender, in all quadrants. 15:43 Back: pain, is absent. 15:43 Musculoskeletal/extremity: ROM: intact in all extremities. 15:43 Skin: Appearance: Color: normal in color. Vital Signs: 15:18 BP 151 / 77; Pulse 79; Resp 16; Temp 98.2; Pulse Ox 98% on R/A; Weight 56.7 kg; Height vg1 5 ft. 2 in. (157.48 cm); Pain 8/10; 17:29 BP 161 / 77; Pulse 81; Resp 20; Temp 98.3; Pulse Ox 96% on R/A; bh1 18:50 BP 153 / 70; Pulse 88; Resp 18; Temp 98.6(TE); Pulse Ox 98% on R/A; bh1 15:18 Body Mass Index 22.86 (56.70 kg, 157.48 cm) vg1 MDM: 15:43 Patient medically screened. sara 18:36 Data reviewed: vital signs, nurses notes. Counseling: I had a detailed discussion with alton the patient and/or guardian regarding: the historical points, exam findings, and any diagnostic results supporting the discharge/admit diagnosis, lab results, radiology results, the need for outpatient follow up, to return to the emergency department if symptoms worsen or persist or if there are any questions or concerns that arise at home. 09/26 15:43 Order name: CBC with Diff; Complete Time: 17:48 [facility] 09/26 15:43 Order name: BMP; Complete Time: 17:48 [facility] 09/26 15:44 Order name: SARS RAPID; Complete Time: 17:48 [facility] 09/26 15:44 Order name: Influenza Screen (a \T\ B); Complete Time: 17:48 [facility] 09/26 15:45 Order name: Strep; Complete Time: 17:48 [facility] 09/26 16:32 Order name: Throat Culture [facility] 09/26 15:43 Order name: Saline Lock; Complete Time: 16:02 [facility] Administered Medications: 18:10 Drug: Potassium Chloride 40 mEq Route: PO; [facility] 18:23 Follow up: Response: No adverse reaction [facility] 18:10 Drug: NS 0.9% 250 ml Route: IV; Rate: bolus; Site: right antecubital; [facility] 18:31 Follow up: IV Status: Infusion continued; IV Intake: 250ml [facility] 18:10 Drug: Zofran (Ondansetron) 4 mg Route: IVP; Site: right antecubital; [facility] 18:23 Follow up: Response: No adverse reaction [facility] 18:37 Drug: Rocephin (cefTRIAXone) 1 grams Route: IV; Rate: calculated rate; Site: right [facility] antecubital; 18:37 Follow up: IV Status: Infusion continued [facility] Disposition: 09/27 07:48 STAFF ATTESTATION STATEMENT I was immediately available on-site in the Emergency sd2 Department for consultation in the care of the patient. Nicki Miller MD. Disposition Summary: 09/26/21 18:37 Discharge Ordered Location: Home [facility] Condition: Stable [facility] Diagnosis - Acute upper respiratory infection, unspecified jmm - Vomiting jmm Followup: m - With: Private Physician - When: 1 - 2 days - Reason: Recheck today's complaints, Continuance of care, Re-evaluation by your physician Discharge Instructions: - Discharge Summary Sheet m - Upper Respiratory Infection, Adult jmm - Vomiting, Adult jmm Forms: - Medication Reconciliation Form [facility] - Thank You Letter jmm - Antibiotic Education jmm - Prescription Opioid Use [facility] Prescriptions: - promethazine-DM - take 5 milliliter by ORAL route every 4-6 hours; 120 milliliter; Refills: 0, sara Product Selection Permitted - ondansetron 4 mg Oral tablet,disintegrating - take 1 tablet by ORAL route every 4-6 hours As needed; 20 tablet; Refills: 0, alton Product Selection Permitted Signatures: Dispatcher [employer] Lincoln Santana PA PA jmm Garcia, Victoria RN RN vg1 Nicki Miller2 Rachel Schaffer RN RN bh1
[2021-09-26] MEDS ORDERED: CEFTRIAXONE 1000 MG/VIAL ONE (18:41)
[2021-09-26 19:03] VITALS: BP 153/70; TEMP 98.6; O2SAT 98
== END 2021-09-26 18:51 | disposition home or self-care (01) ==
LOC: ER 15:11
DX: J06.9 Acute upper respiratory infection, unspecified (principal); R11.10 Vomiting, unspecified; E11.9 Type 2 diabetes mellitus without complications; I10 Essential (primary) hypertension; I50.9 Heart failure, unspecified; Z20.822 Contact with and (suspected) exposure to COVID-19; Z88.1 Allergy status to other antibiotic agents; Z88.5 Allergy status to narcotic agent
CPT/HCPCS: 87070; 85025; 80048; 36415; 87081; 87804 ×2; 96375; 96374; 99284; 87811; J7050; J2405

== ENCOUNTER 2023-02-15 13:56 | Inpatient (IN) | payer BC, SELFPAY ==
--- OUTSIDE RECORDS SUMMARY | 2023-02-15 14:04 | XMS REPORT | Continuity of Care Document ---
Author Name Unknown Address [address] [facility] [facility] [address] [place] [address] [facility] thconnect Address [address] [place] [address] Care Team Providers Care Print Inspector Name Role Phone Jeet Manley MD Primary Care Physician [phone] CHALO CHRISTIANSON Attending Clinician Unavailable [id number] Attending Clinician Unavailable GAYATRI DEE Attending Clinician Nate galeas GC_GCBZW_Lita_Sara Attending Clinician ENA Hidalgo Attending Clinician Unavailable Faith Michel MD Attending Clinician [phone] FAITH MICHEL Attending Clinician Ayde Benavides, 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 Attending Clinician Marciano Guallpa MD Attending Clinician [phone] MARCIANO ELLIOTT Attending Clinician Unavailabl e Doctor Unassigned, [facility] Attending Clinician U francisco LangeRissa andrews Barbara HEATH Attending Clinician Unavailab Grzegorz Ricci MD Attending Clinician [phone] GRZEGORZ HAYNES Attending Clinician Unavailabl e RADIOLOGY Attending Clinician Unavailable KANE GARCIA Attending Clinician Unava ilable ODESSA ROBERTO Attending Clinician Unavailable BENSON CASTRO Attending Clinician Unavail able BENSON CASTRO Attending Clinician Unavail able Matthew VILCHIS, Benson Parker Attending Clinician [phone] Radiology Attending Clinician Unavailable CHALO CHRISTIANSON Attending Clinician Unavailable ANG ANNE Attending Clinician Unav annelieseable Stephen Ojeda Rahil Attending Clinician Unavail able Francisco VILCHIS, Danya Attending Clinician [phone] DANYA SINGH Attending Clinician Unavailable Teddy MONROE, Sarah Attending Clinician Unava ilable Gayatri Dee MD Attending Clinician + [phone] Only, [facility] Attending Clinician Unavailable Mali Carter Attending Clinician [phone] EMMANUELLE SCHULTE Attending Clinician Unavaila Latricia Childs DO Attending Clinician [phone] Latasha Fernandez MD Attending Clinician [phone] LATASHA FERNANDEZ Attending Clinician Unavaila LATASHA Gupta Attending Clinician Unavaila irina Johnson Attending Clinician Unavailable [facility], [facility] Attending Clinician Unavaila Jose Raul Dee DO Attending Clinician [phone], [facility] Attending Clinician Unavailable JAN VALENTINE Attending Clinician Unavailable Jan Valentine MD Attending Clinician [phone] Jcarlos RIVAS, Yazmin Najera Attending Clinician [phone] SUSANNAH WANG Attending Clinician Unavailable Sb Escobar MD Attending Clinician [phone] Susannha Wang MD Attending Clinician [phone] SB ESCOBAR Attending Clinician Unavailable SIVA ALVAREZ Attending Clinician Unavailable Siva Dia Attending Clinician [id number] Admitting Clinician Unavailable GAYATRI DEE Admitting Clinician Nate galeas GC_GCBZW_Kadiyala_S Admitting Clinician Unavaila irina INFANTE ENA Admitting Clinician Unavailable Jeet Manley Admitting Clinician Unavailable FAITH MICHEL Admitting Clinician Unavailabl JEET Grace Admitting Clinician Unavailab Stephen Dai Rahil Admitting Clinician Unavail able Gayatri Dee MD Admitting Clinician [phone] BENSON CASTRO Admitting Clinician Unavail able Alex Admitting Clinician Unavailable SUSANNAH WANG Admitting Clinician Unavailable Susannah Wang MD Admitting Clinician JUDE EUCEDA Admitting Clinician Unavaila ble Payers Payer Name Policy Type Policy Number Effective Date Expirati on Date Source [place] OUT OF [place] [id number] 2007 00:00:00 BCBS [place] [id number] [place] - OUT OF STATE [id number] 2018 00:00:00 [place]PPO[place] [id number] 2019 00:00:00 2021 00:00:00 Problems Condition Name Condition Details Condition Category Status Onset Date Resolution Date Last Treatment Date Treating Clinician Comments Source Nonrheumat ic mitral valve regurgitat ion Nonrheumat ic mitral valve regurgitat ion Disease Active 09-18 00:00: 00 [facility] Coronary artery disease involving [place] coronary artery without angina pectoris Coronary artery disease involving [place] coronary artery without angina pectoris Disease Active 09-18 00:00: 00 [facility] Presence of drug-eluti ng stent in anterior descending branch of left coronary artery Presence of drug-eluti ng stent in anterior descending branch of left coronary artery Disease Active 09-18 00:00: 00 [facility] Chronic systolic heart failure Chronic systolic heart failure Disease Active 09-18 00:00: 00 [facility] Congestive heart failure, NYHA class 3 and ACC/AHA stage C Congestive heart failure, NYHA class 3 and ACC/AHA stage C Disease Active 7-15 00:00: 00 [facility] GADIEL (obstructi ve sleep apnea) GADIEL (obstructi ve sleep apnea) Disease Active 921 00:00: 00 [facility] Obesity Obesity Problem Active 5-06 00:00: 00 [facility] Irritable bowel syndrome Irritable Bowel Syndrome Problem Active 06-26 00:00: 00 [facility] Low blood pressure Low Blood Pressure Problem Active 08-22 00:00: 00 [facility] Dizziness and giddiness Dizziness and Giddiness Problem Active 08-22 00:00: 00 [facility] Essential hypertensi on Essential Hypertensi on Problem Active 07-25 00:00: 00 [facility] Gastropare sis syndrome Gastropare sis Syndrome Problem Active 07-25 00:00: 00 [facility] Proteinuri a Proteinuri a Problem Active 07-25 00:00: 00 [facility] Hypertensi ve disorder Hypertensi ve Disorder Problem Active 07-25 00:00: 00 [facility] Localized edema Localized Edema Problem Active 07-25 00:00: 00 [facility] Hypoxia Hypoxia Disease Active 06-03 00:00: 00 [facility] Acute diastolic congestive heart failure Acute diastolic congestive heart failure Disease Active 06-03 00:00: 00 [facility] Pneumonia due to infectious organism Pneumonia due to infectious organism Disease Active 06-03 00:00: 00 [facility] HTN (hypertens ion) HTN (hypertens ion) Disease Active 06-03 00:00: 00 [facility] Urinary tract infectious disease Urinary Tract Infectious Disease Problem Active 2018-03 0 00:00: 00 [facility] Hyperlipid emia Hyperlipid emia Problem Active 10-15 00:00: 00 [facility] Elevated levels of transamina se & lactic acid dehydrogen ase Elevated Levels of Transamina se & Lactic Acid Dehydrogen ase Problem Active 10-15 00:00: 00 [facility] Finding of urine substance level Finding of Urine Substance Level Problem Active 8 00:00: 00 [facility] Hypothyroi dism Hypothyroi dism Problem Active 09-12 00:00: 00 [facility] 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 Due to Type 2 Diabetes Mellitus Problem Active 09-12 00:00: 00 [facility] Family history of diabetes mellitus Family History of Diabetes Mellitus Problem Active 09-12 00:00: 00 [facility] Screening for disorder Screening for Disorder Problem Active 09-12 00:00: 00 [facility] Tinea pedis Tinea Pedis Problem Active 09-12 00:00: 00 [facility] Type 2 diabetes mellitus Type 2 diabetes mellitus Disease Active 07-17 00:00: 00 [facility] Hyperlipid emia Hyperlipid emia Disease Active 07-17 00:00: 00 [facility] Nephrolith iasis Nephrolith iasis Disease Active 07-17 00:00: 00 [facility] Allergies, Adverse Reactions, Alerts Allergy Name Allergy Type Status Severity Reaction(s) Onset Date Inactive Date Treating Clinician Comments Source Sulfamet hoxazole -Trimeth oprim Allergy to substanc e Active 09-18 00:00: 00 [facility] AMLODIPI NE DRUG INGREDI Active Swelling 2020-03 00:00: 00 [facility] Amlodipi ne Propensi ty to adverse reaction s Active Swelling 2020-03 00:00: 00 [facility] Sulfamet hoxazole Propensi ty to adverse reaction s Active Swelling - 00:00: 00 [facility] Trimetho prim Propensi ty to adverse reaction s Active Swelling - 00:00: 00 [facility] TRIMETHO PRIM DRUG INGREDI Active Swelling - 00:00: 00 [facility] SULFAMET HOXAZOLE DRUG INGREDI Active Low Swelling 11-11 00:00: 00 [facility] Lisinopr il Propensi ty to adverse reaction s Active Cough 07-14 00:00: 00 [facility] LISINOPR IL DRUG INGREDI Active COUGH 07-14 00:00: 00 [facility] No Known Allergie s DA Active U 08-22 00:00: 00 [facility] No Known Allergie s DA Active U 08-22 00:00: 00 [facility] Tramadol Propensi ty to adverse reaction s Active Itching 08-10 00:00: 00 [facility] TRAMADOL DRUG INGREDI Active ITCHING 08-10 00:00: 00 [facility] Tramadol Allergy to substanc e Active Itching 08-10 00:00: 00 Other reaction( s): Hives/Davie h [facility] Metformi n Allergy to substanc e Active Diarrhea [facility] Ramipril Allergy to substanc e Active Rash [facility] Social History Social Habit Start Date Stop Date Quantity Comments Source History of tobacco use Current smoker [facility] Exposure to SARS-CoV-2 (event) 2022-05-04 00:00:00 2022-05-14 16:23:00 Not sure [facility] History of Social function 2020-11-12 00:00:00 2020-11-12 00:00:00 [facility] Tobacco Comment 2020-11-11 00:00:00 2020-11-11 00:00:00 quit 30 yrs ago [facility] Alcohol intake 2020-06-13 00:00:00 2020-06-13 00:00:00 .48 /d [facility] Tobacco use and exposure 2010-07-10 00:00:00 2010-07-10 00:00:00 Smokeless tobacco non-user [facility] Sex Assigned At 1970 00:00:00 1970 00:00:00 [facility] Smoking Status Start Date Stop Date Source Tobacco smoking consumption unknown [facility] Ex-smoker 2020-11-11 00:00:00 2020-11-11 00:00:00 [facility] Never smoked tobacco [facility] Medications Ordered Medication Name Filled Medication Name Start Date Stop Date Current Medication? Ordering Clinician Indication Dosage Frequency Signature (SIG) Comments Components Source barium sulfate (LIQUID E-Z PAQUE) 60 % (w/v) oral suspension 340 g 09-03 14:00: 00 09-03 17:31 :00 No [id number] 340g 340 g, Oral, ONCE, 1 dose, On Tue09/03/22 at 0900, Routine [facility] iopamidol (ISOVUE 370-500 mL) injection 60 mL 04-02 20:35: 00 04-02 20:46 :00 No [id number] 60mL 60 mL, Intravenou s, ONCE, 1 dose, On Tue04/02/22 at 1445, Routine [facility] topiramate 100 mg tablet 2021-03 00:00: 00 Yes [id number] 100mg Take 1 tablet by mouth in the morning and 1 tablet in the evening. [facility] topiramate 100 mg tablet 2021-03 00:00: 00 Yes [id number] 100mg Take 1 tablet by mouth in the morning and 1 tablet in the evening. [facility] topiramate 100 mg tablet 2021-03 00:00: 00 Yes [id number] 100mg Take 1 tablet by mouth in the morning and 1 tablet in the evening. [facility] topiramate 100 mg tablet 2021-03 00:00: 00 Yes [id number] 100mg Take 1 tablet by mouth in the morning and 1 tablet in the evening. [facility] topiramate 100 mg tablet 2021-03 00:00: 00 Yes [id number] 100mg Take 1 tablet by mouth in the morning and 1 tablet in the evening. [facility] topiramate 100 mg tablet 2021-03 00:00: 00 Yes [id number] 100mg Take 1 tablet by mouth in the morning and 1 tablet in the evening. [facility] topiramate 100 mg tablet 2021-03 00:00: 00 Yes [id number] 100mg Take 1 tablet by mouth in the morning and 1 tablet in the evening. [facility] topiramate 100 mg tablet 2021-03 220 00:00: 00 Yes [id number] 100mg Take 1 tablet by mouth in the morning and 1 tablet in the evening. [facility] topiramate 100 mg tablet 2021-03 2- 00:00: 00 Yes [id number] 100mg Take 1 tablet by mouth in the morning and 1 tablet in the evening. [facility] topiramate 100 mg tablet 2021-03 2 00:00: 00 Yes [id number] 100mg Take 1 tablet by mouth in the morning and 1 tablet in the evening. [facility] topiramate 100 mg tablet 2021-03 00:00: 00 Yes [id number] 100mg Take 1 tablet by mouth in the morning and 1 tablet in the evening. [facility] topiramate 100 mg tablet 2021-03 2 00:00: 00 Yes [id number] 100mg Take 1 tablet by mouth in the morning and 1 tablet in the evening. [facility] topiramate 100 mg tablet 2021-03 2 00:00: 00 Yes [id number] 100mg Take 1 tablet by mouth in the morning and 1 tablet in the evening. [facility] topiramate 100 mg tablet 2021-03 00:00: 00 Yes [id number] 100mg Take 1 tablet by mouth in the morning and 1 tablet in the evening. [facility] SUMAtriptan 50 mg tablet 2021-03 220 00:00: 00 02-24 05:59 :00 No [id number] 50mg Take 1 tablet by mouth once now for 1 dose. [facility] SUMAtriptan 50 mg tablet 2021-03 220 00:00: 00 02-24 05:59 :00 No [id number] 50mg Take 1 tablet by mouth once now for 1 dose. [facility] topiramate 50 mg tablet 2021-03 1-14 00:00: 00 Yes [id number] 50mg Take 1 tablet by mouth in the morning and 1 tablet in the evening. [facility] topiramate 50 mg tablet 2021-03 00:00: 00 Yes [id number] 50mg Take 1 tablet by mouth in the morning and 1 tablet in the evening. [facility] topiramate 50 mg tablet 2021-03 00:00: 00 02-23 00:00 :00 No [id number] 50mg Take 1 tablet by mouth in the morning and 1 tablet in the evening. [facility] topiramate 50 mg tablet 2021-03 00:00: 00 02-23 00:00 :00 No [id number] 50mg Take 1 tablet by mouth in the morning and 1 tablet in the evening. [facility] cholecalcif kassidy (Vitamin D-3) 25 MCG (1000 UT) capsule 09-18 13:29: 29 Yes Take by mouth. [facility] linaGLIPtin (Tradjenta) 5 MG tablet 09-18 13:29: 29 Yes Tradjenta 5 mg tablet TAKE 1 TABLET BY MOUTH ONCE DAILY IN THE MORNING [facility] Entresto 24-26 MG tablet 09-16 00:00: 00 Yes Q.5D Take by mouth 2 (two) times a day. [facility] torsemide (Demadex) 20 MG tablet 09-06 00:00: 00 Yes 80mg QD Take 80 mg by mouth 1 (one) time each day. TAKE 4 TABLETS BY MOUTH ONCE DAILY [facility] [employer] Thyroid 60 MG tablet 08-14 00:00: 00 Yes 60mg QD Take 60 mg by mouth 1 (one) time each day. on an empty stomach [facility] carvedilol (Coreg) 6.25 MG tablet 07-24 00:00: 00 Yes 6.25mg Q.5D Take 6.25 mg by mouth in the morning and 6.25 mg before bedtime. [facility] topiramate (Topamax) 25 MG tablet 07-24 00:00: 00 Yes 25mg Take 25 mg by mouth if needed. [facility] atorvastati n (Lipitor) 40 MG tablet 07-07 00:00: 00 Yes 40mg Take 40 mg by mouth every night. [facility] EQ Aspirin Adult Low Dose 81 MG EC tablet - 00:00: 00 Yes 81mg QD Take 81 mg by mouth 1 (one) time each day. [facility] clopidogrel (Plavix) 75 MG tablet 07-07 00:00: 00 Yes 75mg QD Take 75 mg by mouth 1 (one) time each day. [facility] Farxiga 10 MG 2- 00:00: 00 Yes 10mg QD Take 10 mg by mouth 1 (one) time each day. [facility] cloniDINE 0.1 mg/24 hr patch 2020-03 2- 00:00: 00 Yes [id number] 1{patch } Apply 1 Patch to skin weekly. [facility] cloniDINE 0.1 mg/24 hr patch 2020-03 2- 00:00: 00 Yes [id number] 1{patch } Apply 1 Patch to skin weekly. [facility] cloniDINE 0.1 mg/24 hr patch 2020-03 2- 00:00: 00 Yes [id number] 1{patch } Apply 1 Patch to skin weekly. [facility] cloniDINE 0.1 mg/24 hr patch 2020-03 2-20 00:00: 00 Yes [id number] 1{patch } Apply 1 Patch to skin weekly. [facility] cloniDINE 0.1 mg/24 hr patch 2020-03 2-20 00:00: 00 Yes [id number] 1{patch } Apply 1 Patch to skin weekly. [facility] cloniDINE 0.1 mg/24 hr patch 2020-03 2-20 00:00: 00 Yes [id number] 1{patch } Apply 1 Patch to skin weekly. [facility] cloniDINE 0.1 mg/24 hr patch 2020-03 2-20 00:00: 00 Yes [id number] 1{patch } Apply 1 Patch to skin weekly. [facility] cloniDINE 0.1 mg/24 hr patch 2020-03 2-20 00:00: 00 Yes [id number] 1{patch } Apply 1 Patch to skin weekly. [facility] cloniDINE 0.1 mg/24 hr patch 2020-03 2-20 00:00: 00 Yes [id number] 1{patch } Apply 1 Patch to skin weekly. [facility] cloniDINE 0.1 mg/24 hr patch 2020- 2-20 00:00: 00 Yes [id number] 1{patch } Apply 1 Patch to skin weekly. [facility] cloniDINE 0.1 mg/24 hr patch 2020- 2-20 00:00: 00 Yes [id number] 1{patch } Apply 1 Patch to skin weekly. [facility] cloniDINE 0.1 mg/24 hr patch 2020- 2-20 00:00: 00 Yes [id number] 1{patch } Apply 1 Patch to skin weekly. [facility] cloniDINE 0.1 mg/24 hr patch 2020- 2-20 00:00: 00 Yes [id number] 1{patch } Apply 1 Patch to skin weekly. [facility] cloniDINE 0.1 mg/24 hr patch 2020- 2-20 00:00: 00 Yes [id number] 1{patch } Apply 1 Patch to skin weekly. [facility] cloniDINE 0.1 mg/24 hr patch 2020- 2-20 00:00: 00 Yes [id number] 1{patch } Apply 1 Patch to skin weekly. [facility] cloniDINE 0.1 mg/24 hr patch 2020- 2-20 00:00: 00 Yes [id number] 1{patch } Apply 1 Patch to skin weekly. [facility] cloniDINE 0.1 mg/24 hr patch 2020- 2-20 00:00: 00 Yes [id number] 1{patch } Apply 1 Patch to skin weekly. [facility] cloniDINE 0.1 mg/24 hr patch 2020- 2-20 00:00: 00 Yes [id number] 1{patch } Apply 1 Patch to skin weekly. [facility] cloniDINE 0.1 mg/24 hr patch 2020- 2-20 00:00: 00 Yes [id number] 1{patch } Apply 1 Patch to skin weekly. [facility] cloniDINE 0.1 mg/24 hr patch 2020- 2-20 00:00: 00 Yes [id number] 1{patch } Apply 1 Patch to skin weekly. [facility] cloniDINE 0.1 mg/24 hr patch 2020- 2-20 00:00: 00 Yes [id number] 1{patch } Apply 1 Patch to skin weekly. [facility] cloniDINE 0.1 mg/24 hr patch 2020-03 00:00: 00 Yes [id number] 1{patch } Apply 1 Patch to skin weekly. [facility] carvediloL 12.5 mg tablet 2020-03 15:47: 03 Yes 12.5mg Take 12.5 mg by mouth 2 (two) times daily with meals. [facility] carvediloL 12.5 mg tablet 2020-03 15:47: 03 Yes 12.5mg Take 12.5 mg by mouth 2 (two) times daily with meals. [facility] carvediloL 12.5 mg tablet 2020-03 15:47: 03 Yes 12.5mg Take 12.5 mg by mouth 2 (two) times daily with meals. [facility] carvediloL 12.5 mg tablet 2020-03 15:47: 03 Yes 12.5mg Take 12.5 mg by mouth 2 (two) times daily with meals. [facility] carvediloL 12.5 mg tablet 2020-03 15:47: 03 Yes 12.5mg Take 12.5 mg by mouth 2 (two) times daily with meals. [facility] carvediloL 12.5 mg tablet 2020-03 15:47: 03 Yes 12.5mg Take 12.5 mg by mouth 2 (two) times daily with meals. [facility] carvediloL 12.5 mg tablet 2020-03 15:47: 03 Yes 12.5mg Take 12.5 mg by mouth 2 (two) times daily with meals. [facility] carvediloL 12.5 mg tablet 2020-03 15:47: 03 Yes 12.5mg Take 12.5 mg by mouth 2 (two) times daily with meals. [facility] carvediloL 12.5 mg tablet 2020-03 15:47: 03 Yes 12.5mg Take 12.5 mg by mouth 2 (two) times daily with meals. [facility] carvediloL 12.5 mg tablet 2020-03 15:47: 03 Yes 12.5mg Take 12.5 mg by mouth 2 (two) times daily with meals. [facility] carvediloL 12.5 mg tablet 2020-03 15:47: 03 Yes 12.5mg Take 12.5 mg by mouth 2 (two) times daily with meals. [facility] carvediloL 12.5 mg tablet 2020-03 15:47: 03 Yes 12.5mg Take 12.5 mg by mouth 2 (two) times daily with meals. [facility] carvediloL 12.5 mg tablet 2020-03 15:47: 03 Yes 12.5mg Take 12.5 mg by mouth 2 (two) times daily with meals. [facility] carvediloL 12.5 mg tablet 2020-03 15:47: 03 Yes 12.5mg Take 12.5 mg by mouth 2 (two) times daily with meals. [facility] carvediloL 12.5 mg tablet 2020-03 15:47: 03 Yes 12.5mg Take 12.5 mg by mouth 2 (two) times daily with meals. [facility] carvediloL 12.5 mg tablet 2020-03 15:47: 03 Yes 12.5mg Take 12.5 mg by mouth 2 (two) times daily with meals. [facility] carvediloL 12.5 mg tablet 2020-03 15:47: 03 Yes 12.5mg Take 12.5 mg by mouth 2 (two) times daily with meals. [facility] carvediloL 12.5 mg tablet 2020-03 15:47: 03 Yes 12.5mg Take 12.5 mg by mouth 2 (two) times daily with meals. [facility] carvediloL 12.5 mg tablet 2020-03 15:47: 03 Yes 12.5mg Take 12.5 mg by mouth 2 (two) times daily with meals. [facility] carvediloL 12.5 mg tablet 2020-03 15:47: 03 Yes 12.5mg Take 12.5 mg by mouth 2 (two) times daily with meals. [facility] carvediloL 12.5 mg tablet 2020-03 15:47: 03 Yes 12.5mg Take 12.5 mg by mouth 2 (two) times daily with meals. [facility] carvediloL 12.5 mg tablet 2020-03 15:47: 03 Yes 12.5mg Take 12.5 mg by mouth 2 (two) times daily with meals. [facility] carvediloL 12.5 mg tablet 2020-03 15:47: 03 Yes 12.5mg Take 12.5 mg by mouth 2 (two) times daily with meals. [facility] dapaglifloz in (FARXIGA) 5 mg tablet 2020-03 11:25: 42 Yes Take by mouth daily. [facility] linaGLIPtin (TRADJENTA) 5 mg tablet 2020-03 11:25: 42 Yes Take by mouth daily. [facility] TURMERIC ORAL 2020-03 11:25: 42 Yes 500mg Take 500 mg by mouth 2 (two) times daily. [facility] Cholecalcif kassidy, Vitamin D3, (VITAMIN D3) 25 mcg (1,000 unit) capsule 2020-03 11:25: 42 Yes Take by mouth daily. [facility] bumetanide 1 mg tablet 2020-03 11:25: 42 Yes 1mg 1 mg at bedtime. [facility] ergocalcife rol, vitamin d2, (VITAMIN D2) 1,250 mcg (50,000 unit) capsule 2020-03 11:25: 42 Yes [id number] Take 50,000 Units by mouth weekly. [facility] insulin aspart (NOVOLOG FLEXPEN U-100 INSULIN SC) 2020-03 11:25: 42 Yes inject under the skin. Per SS [facility] aspirin 81 mg chewable tablet 2020-03 11:25: 42 Yes 81mg Take 81 mg by mouth daily. [facility] dapaglifloz in (FARXIGA) 5 mg tablet 2020-03 11:25: 42 Yes Take by mouth daily. [facility] linaGLIPtin (TRADJENTA) 5 mg tablet 2020-03 11:25: 42 Yes Take by mouth daily. [facility] TURMERIC ORAL 2020-03 11:25: 42 Yes 500mg Take 500 mg by mouth 2 (two) times daily. [facility] Cholecalcif kassidy, Vitamin D3, (VITAMIN D3) 25 mcg (1,000 unit) capsule 2020-03 11:25: 42 Yes Take by mouth daily. [facility] bumetanide 1 mg tablet 2020-03 11:25: 42 Yes 1mg 1 mg at bedtime. [facility] ergocalcife rol, vitamin d2, (VITAMIN D2) 1,250 mcg (50,000 unit) capsule 2020-03 11:25: 42 Yes [id number] Take 50,000 Units by mouth weekly. [facility] insulin aspart (NOVOLOG FLEXPEN U-100 INSULIN SC) 2020-03 11:25: 42 Yes inject under the skin. Per SS [facility] aspirin 81 mg chewable tablet 2020-03 11:25: 42 Yes 81mg Take 81 mg by mouth daily. [facility] dapaglifloz in (FARXIGA) 5 mg tablet 2020-03 11:25: 42 Yes Take by mouth daily. [facility] linaGLIPtin (TRADJENTA) 5 mg tablet 2020-03 11:25: 42 Yes Take by mouth daily. [facility] TURMERIC ORAL 2020-03 11:25: 42 Yes 500mg Take 500 mg by mouth 2 (two) times daily. [facility] Cholecalcif kassidy, Vitamin D3, (VITAMIN D3) 25 mcg (1,000 unit) capsule 2020-03 11:25: 42 Yes Take by mouth daily. [facility] bumetanide 1 mg tablet 2020-03 11:25: 42 Yes 1mg 1 mg at bedtime. [facility] ergocalcife rol, vitamin d2, (VITAMIN D2) 1,250 mcg (50,000 unit) capsule 2020-03 11:25: 42 Yes [id number] Take 50,000 Units by mouth weekly. [facility] insulin aspart (NOVOLOG FLEXPEN U-100 INSULIN SC) 2020-03 11:25: 42 Yes inject under the skin. Per SS [facility] aspirin 81 mg chewable tablet 2020-03 11:25: 42 Yes 81mg Take 81 mg by mouth daily. [facility] dapaglifloz in (FARXIGA) 5 mg tablet 2020-03 11:25: 42 Yes Take by mouth daily. [facility] linaGLIPtin (TRADJENTA) 5 mg tablet 2020-03 11:25: 42 Yes Take by mouth daily. [facility] TURMERIC ORAL 2020-03 11:25: 42 Yes 500mg Take 500 mg by mouth 2 (two) times daily. [facility] Cholecalcif kassidy, Vitamin D3, (VITAMIN D3) 25 mcg (1,000 unit) capsule 2020-03 11:25: 42 Yes Take by mouth daily. [facility] bumetanide 1 mg tablet 2020-03 11:25: 42 Yes 1mg 1 mg at bedtime. [facility] ergocalcife rol, vitamin d2, (VITAMIN D2) 1,250 mcg (50,000 unit) capsule 2020-03 11:25: 42 Yes [id number] Take 50,000 Units by mouth weekly. [facility] insulin aspart (NOVOLOG FLEXPEN U-100 INSULIN SC) 2020-03 11:25: 42 Yes inject under the skin. Per SS [facility] aspirin 81 mg chewable tablet 2020-03 11:25: 42 Yes 81mg Take 81 mg by mouth daily. [facility] dapaglifloz in (FARXIGA) 5 mg tablet 2020-03 11:25: 42 Yes Take by mouth daily. [facility] linaGLIPtin (TRADJENTA) 5 mg tablet 2020-03 11:25: 42 Yes Take by mouth daily. [facility] TURMERIC ORAL 2020-03 11:25: 42 Yes 500mg Take 500 mg by mouth 2 (two) times daily. [facility] Cholecalcif kassidy, Vitamin D3, (VITAMIN D3) 25 mcg (1,000 unit) capsule 2020-03 11:25: 42 Yes Take by mouth daily. [facility] bumetanide 1 mg tablet 2020-03 11:25: 42 Yes 1mg 1 mg at bedtime. [facility] ergocalcife rol, vitamin d2, (VITAMIN D2) 1,250 mcg (50,000 unit) capsule 2020-03 11:25: 42 Yes [id number] Take 50,000 Units by mouth weekly. [facility] nystatin 100,000 unit/mL suspension 2020-03 11:25: 42 Yes Take by mouth 4 (four) times daily. [facility] insulin aspart (NOVOLOG FLEXPEN U-100 INSULIN SC) 2020-03 11:25: 42 Yes inject under the skin. Per SS [facility] aspirin 81 mg chewable tablet 2020-03 11:25: 42 Yes 81mg Take 81 mg by mouth daily. [facility] dapaglifloz in (FARXIGA) 5 mg tablet 2020-03 11:25: 42 Yes Take by mouth daily. [facility] linaGLIPtin (TRADJENTA) 5 mg tablet 2020-03 11:25: 42 Yes Take by mouth daily. [facility] TURMERIC ORAL 2020-03 11:25: 42 Yes 500mg Take 500 mg by mouth 2 (two) times daily. [facility] Cholecalcif kassidy, Vitamin D3, (VITAMIN D3) 25 mcg (1,000 unit) capsule 2020-03 11:25: 42 Yes Take by mouth daily. [facility] bumetanide 1 mg tablet 2020-03 11:25: 42 Yes 1mg 1 mg at bedtime. [facility] ergocalcife rol, vitamin d2, (VITAMIN D2) 1,250 mcg (50,000 unit) capsule 2020-03 11:25: 42 Yes [id number] Take 50,000 Units by mouth weekly. [facility] nystatin 100,000 unit/mL suspension 2020-03 11:25: 42 Yes Take by mouth 4 (four) times daily. [facility] insulin aspart (NOVOLOG FLEXPEN U-100 INSULIN SC) 2020-03 11:25: 42 Yes inject under the skin. Per SS [facility] aspirin 81 mg chewable tablet 2020-03 11:25: 42 Yes 81mg Take 81 mg by mouth daily. [facility] dapaglifloz in (FARXIGA) 5 mg tablet 2020-03 11:25: 42 Yes Take by mouth daily. [facility] linaGLIPtin (TRADJENTA) 5 mg tablet 2020-03 11:25: 42 Yes Take by mouth daily. [facility] TURMERIC ORAL 2020-03 11:25: 42 Yes 500mg Take 500 mg by mouth 2 (two) times daily. [facility] Cholecalcif kassidy, Vitamin D3, (VITAMIN D3) 25 mcg (1,000 unit) capsule 2020-03 11:25: 42 Yes Take by mouth daily. [facility] bumetanide 1 mg tablet 2020-03 11:25: 42 Yes 1mg 1 mg at bedtime. [facility] ergocalcife rol, vitamin d2, (VITAMIN D2) 1,250 mcg (50,000 unit) capsule 2020-03 11:25: 42 Yes [id number] Take 50,000 Units by mouth weekly. [facility] nystatin 100,000 unit/mL suspension 2020-03 11:25: 42 Yes Take by mouth 4 (four) times daily. [facility] insulin aspart (NOVOLOG FLEXPEN U-100 INSULIN SC) 2020-03 11:25: 42 Yes inject under the skin. Per SS [facility] aspirin 81 mg chewable tablet 2020-03 11:25: 42 Yes 81mg Take 81 mg by mouth daily. [facility] dapaglifloz in (FARXIGA) 5 mg tablet 2020-03 11:25: 42 Yes Take by mouth daily. [facility] linaGLIPtin (TRADJENTA) 5 mg tablet 2020-03 11:25: 42 Yes Take by mouth daily. [facility] TURMERIC ORAL 2020-03 11:25: 42 Yes 500mg Take 500 mg by mouth 2 (two) times daily. [facility] Cholecalcif kassidy, Vitamin D3, (VITAMIN D3) 25 mcg (1,000 unit) capsule 2020-03 11:25: 42 Yes Take by mouth daily. [facility] bumetanide 1 mg tablet 2020-03 11:25: 42 Yes 1mg 1 mg at bedtime. [facility] ergocalcife rol, vitamin d2, (VITAMIN D2) 1,250 mcg (50,000 unit) capsule 2020-03 11:25: 42 Yes [id number] Take 50,000 Units by mouth weekly. [facility] nystatin 100,000 unit/mL suspension 2020-03 11:25: 42 Yes Take by mouth 4 (four) times daily. [facility] insulin aspart (NOVOLOG FLEXPEN U-100 INSULIN SC) 2020-03 11:25: 42 Yes inject under the skin. Per SS [facility] aspirin 81 mg chewable tablet 2020-03 11:25: 42 Yes 81mg Take 81 mg by mouth daily. [facility] dapaglifloz in (FARXIGA) 5 mg tablet 2020-03 11:25: 42 Yes Take by mouth daily. [facility] linaGLIPtin (TRADJENTA) 5 mg tablet 2020-03 11:25: 42 Yes Take by mouth daily. [facility] TURMERIC ORAL 2020-03 11:25: 42 Yes 500mg Take 500 mg by mouth 2 (two) times daily. [facility] Cholecalcif kassidy, Vitamin D3, (VITAMIN D3) 25 mcg (1,000 unit) capsule 2020-03 11:25: 42 Yes Take by mouth daily. [facility] bumetanide 1 mg tablet 2020-03 11:25: 42 Yes 1mg 1 mg at bedtime. [facility] ergocalcife rol, vitamin d2, (VITAMIN D2) 1,250 mcg (50,000 unit) capsule 2020-03 11:25: 42 Yes [id number] Take 50,000 Units by mouth weekly. [facility] nystatin 100,000 unit/mL suspension 2020-03 11:25: 42 Yes Take by mouth 4 (four) times daily. [facility] insulin aspart (NOVOLOG FLEXPEN U-100 INSULIN SC) 2020-03 11:25: 42 Yes inject under the skin. Per SS [facility] aspirin 81 mg chewable tablet 2020-03 11:25: 42 Yes 81mg Take 81 mg by mouth daily. [facility] dapaglifloz in (FARXIGA) 5 mg tablet 2020-03 11:25: 42 Yes Take by mouth daily. [facility] linaGLIPtin (TRADJENTA) 5 mg tablet 2020-03 11:25: 42 Yes Take by mouth daily. [facility] TURMERIC ORAL 2020-03 11:25: 42 Yes 500mg Take 500 mg by mouth 2 (two) times daily. [facility] Cholecalcif kassidy, Vitamin D3, (VITAMIN D3) 25 mcg (1,000 unit) capsule 2020-03 11:25: 42 Yes Take by mouth daily. [facility] bumetanide 1 mg tablet 2020-03 11:25: 42 Yes 1mg 1 mg at bedtime. [facility] ergocalcife rol, vitamin d2, (VITAMIN D2) 1,250 mcg (50,000 unit) capsule 2020-03 11:25: 42 Yes [id number] Take 50,000 Units by mouth weekly. [facility] nystatin 100,000 unit/mL suspension 2020-03 11:25: 42 Yes Take by mouth 4 (four) times daily. [facility] insulin aspart (NOVOLOG FLEXPEN U-100 INSULIN SC) 2020-03 11:25: 42 Yes inject under the skin. Per SS [facility] aspirin 81 mg chewable tablet 2020-03 11:25: 42 Yes 81mg Take 81 mg by mouth daily. [facility] dapaglifloz in (FARXIGA) 5 mg tablet 2020-03 11:25: 42 Yes Take by mouth daily. [facility] linaGLIPtin (TRADJENTA) 5 mg tablet 2020-03 11:25: 42 Yes Take by mouth daily. [facility] TURMERIC ORAL 2020-03 11:25: 42 Yes 500mg Take 500 mg by mouth 2 (two) times daily. [facility] Cholecalcif kassidy, Vitamin D3, (VITAMIN D3) 25 mcg (1,000 unit) capsule 2020-03 11:25: 42 Yes Take by mouth daily. [facility] bumetanide 1 mg tablet 2020-03 11:25: 42 Yes 1mg 1 mg at bedtime. [facility] ergocalcife rol, vitamin d2, (VITAMIN D2) 1,250 mcg (50,000 unit) capsule 2020-03 11:25: 42 Yes [id number] Take 50,000 Units by mouth weekly. [facility] nystatin 100,000 unit/mL suspension 2020-03 11:25: 42 Yes Take by mouth 4 (four) times daily. [facility] insulin aspart (NOVOLOG FLEXPEN U-100 INSULIN SC) 2020-03 11:25: 42 Yes inject under the skin. Per SS [facility] aspirin 81 mg chewable tablet 2020-03 11:25: 42 Yes 81mg Take 81 mg by mouth daily. [facility] dapaglifloz in (FARXIGA) 5 mg tablet 2020-03 11:25: 42 Yes Take by mouth daily. [facility] linaGLIPtin (TRADJENTA) 5 mg tablet 2020-03 11:25: 42 Yes Take by mouth daily. [facility] TURMERIC ORAL 2020-03 11:25: 42 Yes 500mg Take 500 mg by mouth 2 (two) times daily. [facility] Cholecalcif kassidy, Vitamin D3, (VITAMIN D3) 25 mcg (1,000 unit) capsule 2020-03 11:25: 42 Yes Take by mouth daily. [facility] bumetanide 1 mg tablet 2020-03 11:25: 42 Yes 1mg 1 mg at bedtime. [facility] ergocalcife rol, vitamin d2, (VITAMIN D2) 1,250 mcg (50,000 unit) capsule 2020-03 11:25: 42 Yes [id number] Take 50,000 Units by mouth weekly. [facility] nystatin 100,000 unit/mL suspension 2020-03 11:25: 42 Yes Take by mouth 4 (four) times daily. [facility] insulin aspart (NOVOLOG FLEXPEN U-100 INSULIN SC) 2020-03 11:25: 42 Yes inject under the skin. Per SS [facility] aspirin 81 mg chewable tablet 2020-03 11:25: 42 Yes 81mg Take 81 mg by mouth daily. [facility] dapaglifloz in (FARXIGA) 5 mg tablet 2020-03 11:25: 42 Yes Take by mouth daily. [facility] linaGLIPtin (TRADJENTA) 5 mg tablet 2020-03 11:25: 42 Yes Take by mouth daily. [facility] TURMERIC ORAL 2020-03 11:25: 42 Yes 500mg Take 500 mg by mouth 2 (two) times daily. [facility] Cholecalcif kassidy, Vitamin D3, (VITAMIN D3) 25 mcg (1,000 unit) capsule 2020-03 11:25: 42 Yes Take by mouth daily. [facility] bumetanide 1 mg tablet 2020-03 11:25: 42 Yes 1mg 1 mg at bedtime. [facility] ergocalcife rol, vitamin d2, (VITAMIN D2) 1,250 mcg (50,000 unit) capsule 2020-03 11:25: 42 Yes [id number] Take 50,000 Units by mouth weekly. [facility] nystatin 100,000 unit/mL suspension 2020-03 11:25: 42 Yes Take by mouth 4 (four) times daily. [facility] insulin aspart (NOVOLOG FLEXPEN U-100 INSULIN SC) 2020-03 11:25: 42 Yes inject under the skin. Per SS [facility] aspirin 81 mg chewable tablet 2020-03 11:25: 42 Yes 81mg Take 81 mg by mouth daily. [facility] dapaglifloz in (FARXIGA) 5 mg tablet 2020-03 11:25: 42 Yes Take by mouth daily. [facility] linaGLIPtin (TRADJENTA) 5 mg tablet 2020-03 11:25: 42 Yes Take by mouth daily. [facility] TURMERIC ORAL 2020-03 11:25: 42 Yes 500mg Take 500 mg by mouth 2 (two) times daily. [facility] Cholecalcif kassidy, Vitamin D3, (VITAMIN D3) 25 mcg (1,000 unit) capsule 2020-03 11:25: 42 Yes Take by mouth daily. [facility] bumetanide 1 mg tablet 2020-03 11:25: 42 Yes 1mg 1 mg at bedtime. [facility] ergocalcife rol, vitamin d2, (VITAMIN D2) 1,250 mcg (50,000 unit) capsule 2020-03 11:25: 42 Yes [id number] Take 50,000 Units by mouth weekly. [facility] nystatin 100,000 unit/mL suspension 2020-03 11:25: 42 Yes Take by mouth 4 (four) times daily. [facility] insulin aspart (NOVOLOG FLEXPEN U-100 INSULIN SC) 2020-03 11:25: 42 Yes inject under the skin. Per SS [facility] aspirin 81 mg chewable tablet 2020-03 11:25: 42 Yes 81mg Take 81 mg by mouth daily. [facility] dapaglifloz in (FARXIGA) 5 mg tablet 2020-03 11:25: 42 Yes Take by mouth daily. [facility] linaGLIPtin (TRADJENTA) 5 mg tablet 2020-03 11:25: 42 Yes Take by mouth daily. [facility] TURMERIC ORAL 2020-03 11:25: 42 Yes 500mg Take 500 mg by mouth 2 (two) times daily. [facility] Cholecalcif kassidy, Vitamin D3, (VITAMIN D3) 25 mcg (1,000 unit) capsule 2020-03 11:25: 42 Yes Take by mouth daily. [facility] bumetanide 1 mg tablet 2020-03 11:25: 42 Yes 1mg 1 mg at bedtime. [facility] ergocalcife rol, vitamin d2, (VITAMIN D2) 1,250 mcg (50,000 unit) capsule 2020-03 11:25: 42 Yes [id number] Take 50,000 Units by mouth weekly. [facility] nystatin 100,000 unit/mL suspension 2020-03 11:25: 42 Yes Take by mouth 4 (four) times daily. [facility] insulin aspart (NOVOLOG FLEXPEN U-100 INSULIN SC) 2020-03 11:25: 42 Yes inject under the skin. Per SS [facility] aspirin 81 mg chewable tablet 2020-03 11:25: 42 Yes 81mg Take 81 mg by mouth daily. [facility] dapaglifloz in (FARXIGA) 5 mg tablet 2020-03 11:25: 42 Yes Take by mouth daily. [facility] linaGLIPtin (TRADJENTA) 5 mg tablet 2020-03 11:25: 42 Yes Take by mouth daily. [facility] TURMERIC ORAL 2020-03 11:25: 42 Yes 500mg Take 500 mg by mouth 2 (two) times daily. [facility] Cholecalcif kassidy, Vitamin D3, (VITAMIN D3) 25 mcg (1,000 unit) capsule 2020-03 11:25: 42 Yes Take by mouth daily. [facility] bumetanide 1 mg tablet 2020-03 11:25: 42 Yes 1mg 1 mg at bedtime. [facility] ergocalcife rol, vitamin d2, (VITAMIN D2) 1,250 mcg (50,000 unit) capsule 2020-03 11:25: 42 Yes [id number] Take 50,000 Units by mouth weekly. [facility] nystatin 100,000 unit/mL suspension 2020-03 11:25: 42 Yes Take by mouth 4 (four) times daily. [facility] insulin aspart (NOVOLOG FLEXPEN U-100 INSULIN SC) 2020-03 11:25: 42 Yes inject under the skin. Per SS [facility] aspirin 81 mg chewable tablet 2020-03 11:25: 42 Yes 81mg Take 81 mg by mouth daily. [facility] dapaglifloz in (FARXIGA) 5 mg tablet 2020-03 11:25: 42 Yes Take by mouth daily. [facility] linaGLIPtin (TRADJENTA) 5 mg tablet 2020-03 11:25: 42 Yes Take by mouth daily. [facility] TURMERIC ORAL 2020-03 11:25: 42 Yes 500mg Take 500 mg by mouth 2 (two) times daily. [facility] Cholecalcif kassidy, Vitamin D3, (VITAMIN D3) 25 mcg (1,000 unit) capsule 2020-03 11:25: 42 Yes Take by mouth daily. [facility] bumetanide 1 mg tablet 2020-03 11:25: 42 Yes 1mg 1 mg at bedtime. [facility] ergocalcife rol, vitamin d2, (VITAMIN D2) 1,250 mcg (50,000 unit) capsule 2020-03 11:25: 42 Yes [id number] Take 50,000 Units by mouth weekly. [facility] nystatin 100,000 unit/mL suspension 2020-03 11:25: 42 Yes Take by mouth 4 (four) times daily. [facility] insulin aspart (NOVOLOG FLEXPEN U-100 INSULIN SC) 2020-03 11:25: 42 Yes inject under the skin. Per SS [facility] aspirin 81 mg chewable tablet 2020-03 11:25: 42 Yes 81mg Take 81 mg by mouth daily. [facility] dapaglifloz in (FARXIGA) 5 mg tablet 2020-03 11:25: 42 Yes Take by mouth daily. [facility] linaGLIPtin (TRADJENTA) 5 mg tablet 2020-03 11:25: 42 Yes Take by mouth daily. [facility] TURMERIC ORAL 2020-03 11:25: 42 Yes 500mg Take 500 mg by mouth 2 (two) times daily. [facility] Cholecalcif kassidy, Vitamin D3, (VITAMIN D3) 25 mcg (1,000 unit) capsule 2020-03 11:25: 42 Yes Take by mouth daily. [facility] bumetanide 1 mg tablet 2020-03 11:25: 42 Yes 1mg 1 mg at bedtime. [facility] ergocalcife rol, vitamin d2, (VITAMIN D2) 1,250 mcg (50,000 unit) capsule 2020-03 11:25: 42 Yes [id number] Take 50,000 Units by mouth weekly. [facility] nystatin 100,000 unit/mL suspension 2020-03 11:25: 42 Yes Take by mouth 4 (four) times daily. [facility] insulin aspart (NOVOLOG FLEXPEN U-100 INSULIN SC) 2020-03 11:25: 42 Yes inject under the skin. Per SS [facility] aspirin 81 mg chewable tablet 2020-03 11:25: 42 Yes 81mg Take 81 mg by mouth daily. [facility] dapaglifloz in (FARXIGA) 5 mg tablet 2020-03 11:25: 42 Yes Take by mouth daily. [facility] linaGLIPtin (TRADJENTA) 5 mg tablet 2020-03 11:25: 42 Yes Take by mouth daily. [facility] TURMERIC ORAL 2020-03 11:25: 42 Yes 500mg Take 500 mg by mouth 2 (two) times daily. [facility] Cholecalcif kassidy, Vitamin D3, (VITAMIN D3) 25 mcg (1,000 unit) capsule 2020-03 11:25: 42 Yes Take by mouth daily. [facility] bumetanide 1 mg tablet 2020-03 11:25: 42 Yes 1mg 1 mg at bedtime. [facility] ergocalcife rol, vitamin d2, (VITAMIN D2) 1,250 mcg (50,000 unit) capsule 2020-03 11:25: 42 Yes [id number] Take 50,000 Units by mouth weekly. [facility] nystatin 100,000 unit/mL suspension 2020-03 11:25: 42 Yes Take by mouth 4 (four) times daily. [facility] insulin aspart (NOVOLOG FLEXPEN U-100 INSULIN SC) 2020-03 11:25: 42 Yes inject under the skin. Per SS [facility] aspirin 81 mg chewable tablet 2020-03 11:25: 42 Yes 81mg Take 81 mg by mouth daily. [facility] dapaglifloz in (FARXIGA) 5 mg tablet 2020-03 11:25: 42 Yes Take by mouth daily. [facility] linaGLIPtin (TRADJENTA) 5 mg tablet 2020-03 11:25: 42 Yes Take by mouth daily. [facility] TURMERIC ORAL 2020-03 11:25: 42 Yes 500mg Take 500 mg by mouth 2 (two) times daily. [facility] Cholecalcif kassidy, Vitamin D3, (VITAMIN D3) 25 mcg (1,000 unit) capsule 2020-03 11:25: 42 Yes Take by mouth daily. [facility] bumetanide 1 mg tablet 2020-03 11:25: 42 Yes 1mg 1 mg at bedtime. [facility] ergocalcife rol, vitamin d2, (VITAMIN D2) 1,250 mcg (50,000 unit) capsule 2020-03 11:25: 42 Yes [id number] Take 50,000 Units by mouth weekly. [facility] nystatin 100,000 unit/mL suspension 2020-03 11:25: 42 Yes Take by mouth 4 (four) times daily. [facility] insulin aspart (NOVOLOG FLEXPEN U-100 INSULIN SC) 2020-03 11:25: 42 Yes inject under the skin. Per SS [facility] aspirin 81 mg chewable tablet 2020-03 11:25: 42 Yes 81mg Take 81 mg by mouth daily. [facility] dapaglifloz in (FARXIGA) 5 mg tablet 2020-03 11:25: 42 Yes Take by mouth daily. [facility] linaGLIPtin (TRADJENTA) 5 mg tablet 2020-03 11:25: 42 Yes Take by mouth daily. [facility] TURMERIC ORAL 2020-03 11:25: 42 Yes 500mg Take 500 mg by mouth 2 (two) times daily. [facility] Cholecalcif kassidy, Vitamin D3, (VITAMIN D3) 25 mcg (1,000 unit) capsule 2020-03 11:25: 42 Yes Take by mouth daily. [facility] bumetanide 1 mg tablet 2020-03 11:25: 42 Yes 1mg 1 mg at bedtime. [facility] ergocalcife rol, vitamin d2, (VITAMIN D2) 1,250 mcg (50,000 unit) capsule 2020-03 11:25: 42 Yes [id number] Take 50,000 Units by mouth weekly. [facility] nystatin 100,000 unit/mL suspension 2020-03 11:25: 42 Yes Take by mouth 4 (four) times daily. [facility] insulin aspart (NOVOLOG FLEXPEN U-100 INSULIN SC) 2020-03 11:25: 42 Yes inject under the skin. Per SS [facility] aspirin 81 mg chewable tablet 2020-03 11:25: 42 Yes 81mg Take 81 mg by mouth daily. [facility] dapaglifloz in (FARXIGA) 5 mg tablet 2020-03 11:25: 42 Yes Take by mouth daily. [facility] linaGLIPtin (TRADJENTA) 5 mg tablet 2020-03 11:25: 42 Yes Take by mouth daily. [facility] TURMERIC ORAL 2020-03 11:25: 42 Yes 500mg Take 500 mg by mouth 2 (two) times daily. [facility] Cholecalcif kassidy, Vitamin D3, (VITAMIN D3) 25 mcg (1,000 unit) capsule 2020-03 11:25: 42 Yes Take by mouth daily. [facility] bumetanide 1 mg tablet 2020-03 11:25: 42 Yes 1mg 1 mg at bedtime. [facility] ergocalcife rol, vitamin d2, (VITAMIN D2) 1,250 mcg (50,000 unit) capsule 2020-03 11:25: 42 Yes [id number] Take 50,000 Units by mouth weekly. [facility] nystatin 100,000 unit/mL suspension 2020-03 11:25: 42 Yes Take by mouth 4 (four) times daily. [facility] insulin aspart (NOVOLOG FLEXPEN U-100 INSULIN SC) 2020-03 11:25: 42 Yes inject under the skin. Per SS [facility] aspirin 81 mg chewable tablet 2020-03 11:25: 42 Yes 81mg Take 81 mg by mouth daily. [facility] dapaglifloz in (FARXIGA) 5 mg tablet 2020-03 11:25: 42 Yes Take by mouth daily. [facility] linaGLIPtin (TRADJENTA) 5 mg tablet 2020-03 11:25: 42 Yes Take by mouth daily. [facility] TURMERIC ORAL 2020-03 11:25: 42 Yes 500mg Take 500 mg by mouth 2 (two) times daily. [facility] Cholecalcif kassidy, Vitamin D3, (VITAMIN D3) 25 mcg (1,000 unit) capsule 2020-03 11:25: 42 Yes Take by mouth daily. [facility] bumetanide 1 mg tablet 2020-03 11:25: 42 Yes 1mg 1 mg at bedtime. [facility] ergocalcife rol, vitamin d2, (VITAMIN D2) 1,250 mcg (50,000 unit) capsule 2020-03 11:25: 42 Yes [id number] Take 50,000 Units by mouth weekly. [facility] nystatin 100,000 unit/mL suspension 2020-03 11:25: 42 Yes Take by mouth 4 (four) times daily. [facility] insulin aspart (NOVOLOG FLEXPEN U-100 INSULIN SC) 2020-03 11:25: 42 Yes inject under the skin. Per SS [facility] aspirin 81 mg chewable tablet 2020-03 11:25: 42 Yes 81mg Take 81 mg by mouth daily. [facility] dapaglifloz in (FARXIGA) 5 mg tablet 2020-03 11:25: 42 Yes Take by mouth daily. [facility] linaGLIPtin (TRADJENTA) 5 mg tablet 2020-03 11:25: 42 Yes Take by mouth daily. [facility] TURMERIC ORAL 2020-03 11:25: 42 Yes 500mg Take 500 mg by mouth 2 (two) times daily. [facility] Cholecalcif kassidy, Vitamin D3, (VITAMIN D3) 25 mcg (1,000 unit) capsule 2020-03 11:25: 42 Yes Take by mouth daily. [facility] bumetanide 1 mg tablet 2020-03 11:25: 42 Yes 1mg 1 mg at bedtime. [facility] ergocalcife rol, vitamin d2, (VITAMIN D2) 1,250 mcg (50,000 unit) capsule 2020-03 11:25: 42 Yes [id number] Take 50,000 Units by mouth weekly. [facility] nystatin 100,000 unit/mL suspension 2020-03 11:25: 42 Yes Take by mouth 4 (four) times daily. [facility] insulin aspart (NOVOLOG FLEXPEN U-100 INSULIN SC) 2020-03 11:25: 42 Yes inject under the skin. Per SS [facility] aspirin 81 mg chewable tablet 2020-03 11:25: 42 Yes 81mg Take 81 mg by mouth daily. [facility] dapaglifloz in (FARXIGA) 5 mg tablet 2020-03 11:25: 42 Yes Take by mouth daily. [facility] linaGLIPtin (TRADJENTA) 5 mg tablet 2020-03 11:25: 42 Yes Take by mouth daily. [facility] TURMERIC ORAL 2020-03 11:25: 42 Yes 500mg Take 500 mg by mouth 2 (two) times daily. [facility] Cholecalcif kassidy, Vitamin D3, (VITAMIN D3) 25 mcg (1,000 unit) capsule 2020-03 11:25: 42 Yes Take by mouth daily. [facility] bumetanide 1 mg tablet 2020-03 11:25: 42 Yes 1mg 1 mg at bedtime. [facility] ergocalcife rol, vitamin d2, (VITAMIN D2) 1,250 mcg (50,000 unit) capsule 2020-03 11:25: 42 Yes [id number] Take 50,000 Units by mouth weekly. [facility] nystatin 100,000 unit/mL suspension 2020-03 11:25: 42 Yes Take by mouth 4 (four) times daily. [facility] insulin aspart (NOVOLOG FLEXPEN U-100 INSULIN SC) 2020-03 11:25: 42 Yes inject under the skin. Per SS [facility] aspirin 81 mg chewable tablet 2020-03 11:25: 42 Yes 81mg Take 81 mg by mouth daily. [facility] dapaglifloz in (FARXIGA) 5 mg tablet 2020-03 11:25: 42 Yes Take by mouth daily. [facility] linaGLIPtin (TRADJENTA) 5 mg tablet 2020-03 11:25: 42 Yes Take by mouth daily. [facility] TURMERIC ORAL 2020-03 11:25: 42 Yes 500mg Take 500 mg by mouth 2 (two) times daily. [facility] Cholecalcif kassiyd, Vitamin D3, (VITAMIN D3) 25 mcg (1,000 unit) capsule 2020-03 11:25: 42 Yes Take by mouth daily. [facility] bumetanide 1 mg tablet 2020-03 11:25: 42 Yes 1mg 1 mg at bedtime. [facility] ergocalcife rol, vitamin d2, (VITAMIN D2) 1,250 mcg (50,000 unit) capsule 2020-03 11:25: 42 Yes [id number] Take 50,000 Units by mouth weekly. [facility] nystatin 100,000 unit/mL suspension 2020-03 11:25: 42 Yes Take by mouth 4 (four) times daily. [facility] insulin aspart (NOVOLOG FLEXPEN U-100 INSULIN SC) 2020-03 11:25: 42 Yes inject under the skin. Per SS [facility] aspirin 81 mg chewable tablet 2020-03 11:25: 42 Yes 81mg Take 81 mg by mouth daily. [facility] dapaglifloz in (FARXIGA) 5 mg tablet 2020-03 11:25: 42 Yes Take by mouth daily. [facility] linaGLIPtin (TRADJENTA) 5 mg tablet 2020-03 11:25: 42 Yes Take by mouth daily. [facility] TURMERIC ORAL 2020-03 11:25: 42 Yes 500mg Take 500 mg by mouth 2 (two) times daily. [facility] Cholecalcif kassidy, Vitamin D3, (VITAMIN D3) 25 mcg (1,000 unit) capsule 2020-03 11:25: 42 Yes Take by mouth daily. [facility] bumetanide 1 mg tablet 2020-03 11:25: 42 Yes 1mg 1 mg at bedtime. [facility] ergocalcife rol, vitamin d2, (VITAMIN D2) 1,250 mcg (50,000 unit) capsule 2020-03 11:25: 42 Yes [id number] Take 50,000 Units by mouth weekly. [facility] nystatin 100,000 unit/mL suspension 2020-03 11:25: 42 Yes Take by mouth 4 (four) times daily. [facility] insulin aspart (NOVOLOG FLEXPEN U-100 INSULIN SC) 2020-03 11:25: 42 Yes inject under the skin. Per SS [facility] aspirin 81 mg chewable tablet 2020-03 11:25: 42 Yes 81mg Take 81 mg by mouth daily. [facility] dapaglifloz in (FARXIGA) 5 mg tablet 2020-03 11:25: 42 Yes Take by mouth daily. [facility] linaGLIPtin (TRADJENTA) 5 mg tablet 2020-03 11:25: 42 Yes Take by mouth daily. [facility] TURMERIC ORAL 2020-03 11:25: 42 Yes 500mg Take 500 mg by mouth 2 (two) times daily. [facility] Cholecalcif kassidy, Vitamin D3, (VITAMIN D3) 25 mcg (1,000 unit) capsule 2020-03 11:25: 42 Yes Take by mouth daily. [facility] bumetanide 1 mg tablet 2020-03 11:25: 42 Yes 1mg 1 mg at bedtime. [facility] ergocalcife rol, vitamin d2, (VITAMIN D2) 1,250 mcg (50,000 unit) capsule 2020-03 11:25: 42 Yes [id number] Take 50,000 Units by mouth weekly. [facility] nystatin 100,000 unit/mL suspension 2020-03 11:25: 42 Yes Take by mouth 4 (four) times daily. [facility] insulin aspart (NOVOLOG FLEXPEN U-100 INSULIN SC) 2020-03 11:25: 42 Yes inject under the skin. Per SS [facility] aspirin 81 mg chewable tablet 2020-03 11:25: 42 Yes 81mg Take 81 mg by mouth daily. [facility] amLODIPine 10 mg tablet 2020-03 00:00: 00 02-12 00:00 :00 No [id number] 10mg Take 1 tablet by mouth daily. [facility] topiramate 25 mg tablet 2020-03 00:00: 00 Yes [id number] 25mg Take 1 tablet by mouth 2 (two) times daily. [facility] topiramate 25 mg tablet 2020-03 00:00: 00 Yes [id number] 25mg Take 1 tablet by mouth 2 (two) times daily. [facility] topiramate 25 mg tablet 2020-03 00:00: 00 Yes [id number] 25mg Take 1 tablet by mouth 2 (two) times daily. [facility] topiramate 25 mg tablet 2020-03 00:00: 00 Yes [id number] 25mg Take 1 tablet by mouth 2 (two) times daily. [facility] topiramate 25 mg tablet 2020-03 00:00: 00 Yes [id number] 25mg Take 1 tablet by mouth 2 (two) times daily. [facility] topiramate 25 mg tablet 2020-03 00:00: 00 Yes [id number] 25mg Take 1 tablet by mouth 2 (two) times daily. [facility] topiramate 25 mg tablet 2020-03 00:00: 00 01-18 00:00 :00 No [id number] 25mg Take 1 tablet by mouth 2 (two) times daily. [facility] topiramate 25 mg tablet 2020-03 00:00: 00 01-18 00:00 :00 No [id number] 25mg Take 1 tablet by mouth 2 (two) times daily. [facility] spironolact one 25 mg tablet 11-25 00:00: 00 Yes [id number] 02 25mg Take 1 tablet by mouth daily. [facility] thyroid (ARMOUR THYROID) 30 mg tablet 11-25 00:00: 00 Yes [id number] 15mg Take 0.5 tablets by mouth every morning. [facility] spironolact one 25 mg tablet 11-25 00:00: 00 Yes [id number] 02 25mg Take 1 tablet by mouth daily. [facility] thyroid (ARMOUR THYROID) 30 mg tablet 11-25 00:00: 00 Yes [id number] 15mg Take 0.5 tablets by mouth every morning. [facility] spironolact one 25 mg tablet 11-25 00:00: 00 Yes [id number] 02 25mg Take 1 tablet by mouth daily. [facility] thyroid (ARMOUR THYROID) 30 mg tablet 11-25 00:00: 00 Yes [id number] 15mg Take 0.5 tablets by mouth every morning. [facility] spironolact one 25 mg tablet 11-25 00:00: 00 Yes [id number] 02 25mg Take 1 tablet by mouth daily. [facility] thyroid (ARMOUR THYROID) 30 mg tablet 11-25 00:00: 00 Yes [id number] 15mg Take 0.5 tablets by mouth every morning. [facility] spironolact one 25 mg tablet 11-25 00:00: 00 Yes [id number] 02 25mg Take 1 tablet by mouth daily. [facility] thyroid (ARMOUR THYROID) 30 mg tablet 11-25 00:00: 00 Yes [id number] 15mg Take 0.5 tablets by mouth every morning. [facility] spironolact one 25 mg tablet 11-25 00:00: 00 Yes [id number] 02 25mg Take 1 tablet by mouth daily. [facility] thyroid (ARMOUR THYROID) 30 mg tablet 11-25 00:00: 00 Yes [id number] 15mg Take 0.5 tablets by mouth every morning. [facility] spironolact one 25 mg tablet 11-25 00:00: 00 Yes [id number] 02 25mg Take 1 tablet by mouth daily. [facility] thyroid (ARMOUR THYROID) 30 mg tablet 11-25 00:00: 00 Yes [id number] 15mg Take 0.5 tablets by mouth every morning. [facility] spironolact one 25 mg tablet 11-25 00:00: 00 Yes [id number] 02 25mg Take 1 tablet by mouth daily. [facility] thyroid (ARMOUR THYROID) 30 mg tablet 11-25 00:00: 00 Yes [id number] 15mg Take 0.5 tablets by mouth every morning. [facility] spironolact one 25 mg tablet 11-25 00:00: 00 Yes [id number] 02 25mg Take 1 tablet by mouth daily. [facility] thyroid (ARMOUR THYROID) 30 mg tablet 0 11-25 00:00: 00 Yes [id number] 15mg Take 0.5 tablets by mouth every morning. [facility] spironolact one 25 mg tablet 0 11-25 00:00: 00 Yes [id number] 02 25mg Take 1 tablet by mouth daily. [facility] thyroid (ARMOUR THYROID) 30 mg tablet 0 11-25 00:00: 00 Yes [id number] 15mg Take 0.5 tablets by mouth every morning. [facility] spironolact one 25 mg tablet 11-25 00:00: 00 Yes [id number] 02 25mg Take 1 tablet by mouth daily. [facility] thyroid (ARMOUR THYROID) 30 mg tablet 11-25 00:00: 00 Yes [id number] 15mg Take 0.5 tablets by mouth every morning. [facility] spironolact one 25 mg tablet 11-25 00:00: 00 Yes [id number] 02 25mg Take 1 tablet by mouth daily. [facility] thyroid (ARMOUR THYROID) 30 mg tablet 11-25 00:00: 00 Yes [id number] 15mg Take 0.5 tablets by mouth every morning. [facility] spironolact one 25 mg tablet 11-25 00:00: 00 Yes [id number] 02 25mg Take 1 tablet by mouth daily. [facility] thyroid (ARMOUR THYROID) 30 mg tablet 11-25 00:00: 00 Yes [id number] 15mg Take 0.5 tablets by mouth every morning. [facility] spironolact one 25 mg tablet 11-25 00:00: 00 Yes [id number] 02 25mg Take 1 tablet by mouth daily. [facility] thyroid (ARMOUR THYROID) 30 mg tablet 11-25 00:00: 00 Yes [id number] 15mg Take 0.5 tablets by mouth every morning. [facility] spironolact one 25 mg tablet 11-25 00:00: 00 Yes [id number] 02 25mg Take 1 tablet by mouth daily. [facility] thyroid (ARMOUR THYROID) 30 mg tablet 11-25 00:00: 00 Yes [id number] 15mg Take 0.5 tablets by mouth every morning. [facility] spironolact one 25 mg tablet 11-25 00:00: 00 Yes [id number] 02 25mg Take 1 tablet by mouth daily. [facility] thyroid (ARMOUR THYROID) 30 mg tablet 11-25 00:00: 00 Yes [id number] 15mg Take 0.5 tablets by mouth every morning. [facility] spironolact one 25 mg tablet 11-25 00:00: 00 Yes [id number] 02 25mg Take 1 tablet by mouth daily. [facility] thyroid (ARMOUR THYROID) 30 mg tablet 11-25 00:00: 00 Yes [id number] 15mg Take 0.5 tablets by mouth every morning. [facility] spironolact one 25 mg tablet 11-25 00:00: 00 Yes [id number] 02 25mg Take 1 tablet by mouth daily. [facility] thyroid (ARMOUR THYROID) 30 mg tablet 11-25 00:00: 00 Yes [id number] 15mg Take 0.5 tablets by mouth every morning. [facility] spironolact one 25 mg tablet 11-25 00:00: 00 Yes [id number] 02 25mg Take 1 tablet by mouth daily. [facility] thyroid (ARMOUR THYROID) 30 mg tablet 11-25 00:00: 00 Yes [id number] 15mg Take 0.5 tablets by mouth every morning. [facility] spironolact one 25 mg tablet 11-25 00:00: 00 Yes [id number] 02 25mg Take 1 tablet by mouth daily. [facility] thyroid (ARMOUR THYROID) 30 mg tablet 11-25 00:00: 00 Yes [id number] 15mg Take 0.5 tablets by mouth every morning. [facility] spironolact one 25 mg tablet 0 11-25 00:00: 00 Yes [id number] 02 25mg Take 1 tablet by mouth daily. [facility] thyroid (ARMOUR THYROID) 30 mg tablet 0 11-25 00:00: 00 Yes [id number] 15mg Take 0.5 tablets by mouth every morning. [facility] spironolact one 25 mg tablet 0 11-25 00:00: 00 Yes [id number] 02 25mg Take 1 tablet by mouth daily. [facility] thyroid (ARMOUR THYROID) 30 mg tablet 11-25 00:00: 00 Yes [id number] 15mg Take 0.5 tablets by mouth every morning. [facility] spironolact one 25 mg tablet 11-25 00:00: 00 Yes [id number] 02 25mg Take 1 tablet by mouth daily. [facility] thyroid (ARMOUR THYROID) 30 mg tablet 11-25 00:00: 00 Yes [id number] 15mg Take 0.5 tablets by mouth every morning. [facility] spironolact one 25 mg tablet 11-25 00:00: 00 Yes [id number] 02 25mg Take 1 tablet by mouth daily. [facility] thyroid (ARMOUR THYROID) 30 mg tablet 11-25 00:00: 00 Yes [id number] 15mg Take 0.5 tablets by mouth every morning. [facility] gabapentin 100 mg capsule 05-23 00:00: 00 Yes [id number] 100mg Take 1 capsule by mouth 3 (three) times daily. [facility] gabapentin 100 mg capsule 05-23 00:00: 00 Yes [id number] 100mg Take 1 capsule by mouth 3 (three) times daily. [facility] gabapentin 100 mg capsule 05-23 00:00: 00 Yes [id number] 100mg Take 1 capsule by mouth 3 (three) times daily. [facility] gabapentin 100 mg capsule 05-23 00:00: 00 Yes [id number] 100mg Take 1 capsule by mouth 3 (three) times daily. [facility] gabapentin 100 mg capsule 2020-0 05-23 00:00: 00 Yes [id number] 100mg Take 1 capsule by mouth 3 (three) times daily. [facility] gabapentin 100 mg capsule 2020-05-23 00:00: 00 Yes [id number] 100mg Take 1 capsule by mouth 3 (three) times daily. [facility] gabapentin 100 mg capsule 05-23 00:00: 00 Yes [id number] 100mg Take 1 capsule by mouth 3 (three) times daily. [facility] gabapentin 100 mg capsule 2020-0 05-23 00:00: 00 Yes [id number] 100mg Take 1 capsule by mouth 3 (three) times daily. [facility] gabapentin 100 mg capsule 2020-0 05-23 00:00: 00 Yes [id number] 100mg Take 1 capsule by mouth 3 (three) times daily. [facility] gabapentin 100 mg capsule 2020-0 05-23 00:00: 00 Yes [id number] 100mg Take 1 capsule by mouth 3 (three) times daily. [facility] gabapentin 100 mg capsule 2020-0 05-23 00:00: 00 Yes [id number] 100mg Take 1 capsule by mouth 3 (three) times daily. [facility] gabapentin 100 mg capsule 2020-0 05-23 00:00: 00 Yes [id number] 100mg Take 1 capsule by mouth 3 (three) times daily. [facility] gabapentin 100 mg capsule 2020-0 05-23 00:00: 00 Yes [id number] 100mg Take 1 capsule by mouth 3 (three) times daily. [facility] gabapentin 100 mg capsule 2020-0 05-23 00:00: 00 Yes [id number] 100mg Take 1 capsule by mouth 3 (three) times daily. [facility] gabapentin 100 mg capsule 2020-0 05-23 00:00: 00 Yes [id number] 100mg Take 1 capsule by mouth 3 (three) times daily. [facility] gabapentin 100 mg capsule 2020-0 05-23 00:00: 00 Yes [id number] 100mg Take 1 capsule by mouth 3 (three) times daily. [facility] gabapentin 100 mg capsule 1-0 05-23 00:00: 00 Yes [id number] 100mg Take 1 capsule by mouth 3 (three) times daily. [facility] gabapentin 100 mg capsule 2020-0 19 00:00: 00 Yes [id number] 100mg Take 1 capsule by mouth 3 (three) times daily. [facility] gabapentin 100 mg capsule 1-0 3-19 00:00: 00 Yes [id number] 100mg Take 1 capsule by mouth 3 (three) times daily. [facility] gabapentin 100 mg capsule 05-23 00:00: 00 Yes [id number] 100mg Take 1 capsule by mouth 3 (three) times daily. [facility] gabapentin 100 mg capsule 05-23 00:00: 00 Yes [id number] 100mg Take 1 capsule by mouth 3 (three) times daily. [facility] gabapentin 100 mg capsule 05-23 00:00: 00 Yes [id number] 100mg Take 1 capsule by mouth 3 (three) times daily. [facility] gabapentin 100 mg capsule 05-23 00:00: 00 Yes [id number] 100mg Take 1 capsule by mouth 3 (three) times daily. [facility] gabapentin 100 mg capsule 05-23 00:00: 00 Yes [id number] 100mg Take 1 capsule by mouth 3 (three) times daily. [facility] gabapentin 100 mg capsule 05-23 00:00: 00 Yes [id number] 100mg Take 1 capsule by mouth 3 (three) times daily. [facility] gabapentin 100 mg capsule 05-23 00:00: 00 Yes [id number] 100mg Take 1 capsule by mouth 3 (three) times daily. [facility] gabapentin 100 mg capsule 05-23 00:00: 00 Yes [id number] 100mg Take 1 capsule by mouth 3 (three) times daily. [facility] gabapentin 100 mg capsule 05-23 00:00: 00 Yes [id number] 100mg Take 1 capsule by mouth 3 (three) times daily. [facility] flash glucose scanning reader (FREESTYLE YASH 14 DAY READER) [facility] [place] 06-04 00:00: 00 Yes [id number] 1{appli catorfu l} 1 Applicator ful 4 (four) times daily. Check glucose QID as directed [facility] flash glucose sensor (FREESTYLE YASH 14 DAY SENSOR) Kit 06-04 00:00: 00 Yes [id number] 1{appli cator} 1 Applicator 4 (four) times daily. [facility] flash glucose scanning reader (FREESTYLE YASH 14 DAY READER) [facility] [place] 06-04 00:00: 00 Yes [id number] 1{appli catorfu l} 1 Applicator ful 4 (four) times daily. Check glucose QID as directed [facility] flash glucose sensor (FREESTYLE YASH 14 DAY SENSOR) Kit 06-04 00:00: 00 Yes [id number] 1{appli cator} 1 Applicator 4 (four) times daily. [facility] flash glucose scanning reader (FREESTYLE YASH 14 DAY READER) [facility] [place] 06-04 00:00: 00 Yes [id number] 1{appli catorfu l} 1 Applicator ful 4 (four) times daily. Check glucose QID as directed [facility] flash glucose sensor (FREESTYLE YASH 14 DAY SENSOR) Kit 06-04 00:00: 00 Yes [id number] 1{appli cator} 1 Applicator 4 (four) times daily. [facility] flash glucose scanning reader (FREESTYLE YASH 14 DAY READER) [facility] [place] 06-04 00:00: 00 Yes [id number] 1{appli catorfu l} 1 Applicator ful 4 (four) times daily. Check glucose QID as directed [facility] flash glucose sensor (FREESTYLE YASH 14 DAY SENSOR) Kit 06-04 00:00: 00 Yes [id number] 1{appli cator} 1 Applicator 4 (four) times daily. [facility] flash glucose scanning reader (FREESTYLE YASH 14 DAY READER) [facility] [place] 06-04 00:00: 00 Yes [id number] 1{appli catorfu l} 1 Applicator ful 4 (four) times daily. Check glucose QID as directed [facility] flash glucose sensor (FREESTYLE YASH 14 DAY SENSOR) Kit 06-04 00:00: 00 Yes [id number] 1{appli cator} 1 Applicator 4 (four) times daily. [facility] flash glucose scanning reader (FREESTYLE YASH 14 DAY READER) [facility] [place] 06-04 00:00: 00 Yes [id number] 1{appli catorfu l} 1 Applicator ful 4 (four) times daily. Check glucose QID as directed [facility] flash glucose sensor (FREESTYLE YASH 14 DAY SENSOR) Kit 06-04 00:00: 00 Yes [id number] 1{appli cator} 1 Applicator 4 (four) times daily. [facility] flash glucose scanning reader (FREESTYLE YASH 14 DAY READER) [facility] [place] 06-04 00:00: 00 Yes [id number] 1{appli catorfu l} 1 Applicator ful 4 (four) times daily. Check glucose QID as directed [facility] flash glucose sensor (FREESTYLE YASH 14 DAY SENSOR) Kit 06-04 00:00: 00 Yes [id number] 1{appli cator} 1 Applicator 4 (four) times daily. [facility] flash glucose scanning reader (FREESTYLE YASH 14 DAY READER) [facility] [place] 06-04 00:00: 00 Yes [id number] 1{appli catorfu l} 1 Applicator ful 4 (four) times daily. Check glucose QID as directed [facility] flash glucose sensor (FREESTYLE YASH 14 DAY SENSOR) Kit 06-04 00:00: 00 Yes [id number] 1{appli cator} 1 Applicator 4 (four) times daily. [facility] flash glucose scanning reader (FREESTYLE YASH 14 DAY READER) [facility] [place] 06-04 00:00: 00 Yes [id number] 1{appli catorfu l} 1 Applicator ful 4 (four) times daily. Check glucose QID as directed [facility] flash glucose sensor (FREESTYLE YASH 14 DAY SENSOR) Kit 06-04 00:00: 00 Yes [id number] 1{appli cator} 1 Applicator 4 (four) times daily. [facility] flash glucose scanning reader (FREESTYLE YASH 14 DAY READER) [facility] [place] 06-04 00:00: 00 Yes [id number] 1{appli catorfu l} 1 Applicator ful 4 (four) times daily. Check glucose QID as directed [facility] flash glucose sensor (FREESTYLE YASH 14 DAY SENSOR) Kit 06-04 00:00: 00 Yes [id number] 1{appli cator} 1 Applicator 4 (four) times daily. [facility] flash glucose scanning reader (FREESTYLE YASH 14 DAY READER) [facility] [place] 06-04 00:00: 00 Yes [id number] 1{appli catorfu l} 1 Applicator ful 4 (four) times daily. Check glucose QID as directed [facility] flash glucose sensor (FREESTYLE YASH 14 DAY SENSOR) Kit 06-04 00:00: 00 Yes [id number] 1{appli cator} 1 Applicator 4 (four) times daily. [facility] flash glucose scanning reader (FREESTYLE YASH 14 DAY READER) [facility] [place] 06-04 00:00: 00 Yes [id number] 1{appli catorfu l} 1 Applicator ful 4 (four) times daily. Check glucose QID as directed [facility] flash glucose sensor (FREESTYLE YASH 14 DAY SENSOR) Kit 06-04 00:00: 00 Yes [id number] 1{appli cator} 1 Applicator 4 (four) times daily. [facility] flash glucose scanning reader (FREESTYLE YASH 14 DAY READER) [facility] [place] 06-04 00:00: 00 Yes [id number] 1{appli catorfu l} 1 Applicator ful 4 (four) times daily. Check glucose QID as directed [facility] flash glucose sensor (FREESTYLE YASH 14 DAY SENSOR) Kit 06-04 00:00: 00 Yes [id number] 1{appli cator} 1 Applicator 4 (four) times daily. [facility] flash glucose scanning reader (FREESTYLE YASH 14 DAY READER) [facility] [place] 06-04 00:00: 00 Yes [id number] 1{appli catorfu l} 1 Applicator ful 4 (four) times daily. Check glucose QID as directed [facility] flash glucose sensor (FREESTYLE YASH 14 DAY SENSOR) Kit 06-04 00:00: 00 Yes [id number] 1{appli cator} 1 Applicator 4 (four) times daily. [facility] flash glucose scanning reader (FREESTYLE YASH 14 DAY READER) [facility] [place] 06-04 00:00: 00 Yes [id number] 1{appli catorfu l} 1 Applicator ful 4 (four) times daily. Check glucose QID as directed [facility] flash glucose sensor (FREESTYLE YASH 14 DAY SENSOR) Kit 06-04 00:00: 00 Yes [id number] 1{appli cator} 1 Applicator 4 (four) times daily. [facility] flash glucose scanning reader (FREESTYLE YASH 14 DAY READER) [facility] [place] 06-04 00:00: 00 Yes [id number] 1{appli catorfu l} 1 Applicator ful 4 (four) times daily. Check glucose QID as directed [facility] flash glucose sensor (FREESTYLE YASH 14 DAY SENSOR) Kit 06-04 00:00: 00 Yes [id number] 1{appli cator} 1 Applicator 4 (four) times daily. [facility] flash glucose scanning reader (FREESTYLE YASH 14 DAY READER) [facility] [place] 06-04 00:00: 00 Yes [id number] 1{appli catorfu l} 1 Applicator ful 4 (four) times daily. Check glucose QID as directed [facility] flash glucose sensor (FREESTYLE YASH 14 DAY SENSOR) Kit 06-04 00:00: 00 Yes [id number] 1{appli cator} 1 Applicator 4 (four) times daily. [facility] flash glucose scanning reader (FREESTYLE YASH 14 DAY READER) [facility] [place] 06-04 00:00: 00 Yes [id number] 1{appli catorfu l} 1 Applicator ful 4 (four) times daily. Check glucose QID as directed [facility] flash glucose sensor (FREESTYLE YASH 14 DAY SENSOR) Kit 06-04 00:00: 00 Yes [id number] 1{appli cator} 1 Applicator 4 (four) times daily. [facility] flash glucose scanning reader (FREESTYLE YASH 14 DAY READER) [facility] [place] 06-04 00:00: 00 Yes [id number] 1{appli catorfu l} 1 Applicator ful 4 (four) times daily. Check glucose QID as directed [facility] flash glucose sensor (FREESTYLE YASH 14 DAY SENSOR) Kit 06-04 00:00: 00 Yes [id number] 1{appli cator} 1 Applicator 4 (four) times daily. [facility] flash glucose scanning reader (FREESTYLE YASH 14 DAY READER) [facility] [place] 06-04 00:00: 00 Yes [id number] 1{appli catorfu l} 1 Applicator ful 4 (four) times daily. Check glucose QID as directed [facility] flash glucose sensor (FREESTYLE YASH 14 DAY SENSOR) Kit 06-04 00:00: 00 Yes [id number] 1{appli cator} 1 Applicator 4 (four) times daily. [facility] flash glucose scanning reader (FREESTYLE YASH 14 DAY READER) [facility] [place] 06-04 00:00: 00 Yes [id number] 1{appli catorfu l} 1 Applicator ful 4 (four) times daily. Check glucose QID as directed [facility] flash glucose sensor (FREESTYLE YASH 14 DAY SENSOR) Kit 06-04 00:00: 00 Yes [id number] 1{appli cator} 1 Applicator 4 (four) times daily. [facility] flash glucose scanning reader (FREESTYLE YASH 14 DAY READER) [facility] [place] 06-04 00:00: 00 Yes [id number] 1{appli catorfu l} 1 Applicator ful 4 (four) times daily. Check glucose QID as directed [facility] flash glucose sensor (FREESTYLE YASH 14 DAY SENSOR) Kit 06-04 00:00: 00 Yes [id number] 1{appli cator} 1 Applicator 4 (four) times daily. [facility] flash glucose scanning reader (FREESTYLE YASH 14 DAY READER) [facility] [place] 06-04 00:00: 00 Yes [id number] 1{appli catorfu l} 1 Applicator ful 4 (four) times daily. Check glucose QID as directed [facility] flash glucose sensor (FREESTYLE YASH 14 DAY SENSOR) Kit 06-04 00:00: 00 Yes [id number] 1{appli cator} 1 Applicator 4 (four) times daily. [facility] flash glucose scanning reader (FREESTYLE YASH 14 DAY READER) [facility] 06-04 00:00: 00 Yes [id number] 1{appli catorfu l} 1 Applicator ful 4 (four) times daily. Check glucose QID as directed [facility] flash glucose sensor (FREESTYLE YASH 14 DAY SENSOR) Kit 06-04 00:00: 00 Yes [id number] 1{appli cator} 1 Applicator 4 (four) times daily. [facility] flash glucose scanning reader (FREESTYLE YASH 14 DAY READER) [facility] 06-04 00:00: 00 Yes [id number] 1{appli catorfu l} 1 Applicator ful 4 (four) times daily. Check glucose QID as directed [facility] flash glucose sensor (FREESTYLE YASH 14 DAY SENSOR) Kit 06-04 00:00: 00 Yes [id number] 1{appli cator} 1 Applicator 4 (four) times daily. [facility] flash glucose scanning reader (FREESTYLE YASH 14 DAY READER) [facility] 06-04 00:00: 00 Yes [id number] 1{appli catorfu l} 1 Applicator ful 4 (four) times daily. Check glucose QID as directed [facility] flash glucose sensor (FREESTYLE YASH 14 DAY SENSOR) Kit 06-04 00:00: 00 Yes [id number] 1{appli cator} 1 Applicator 4 (four) times daily. [facility] flash glucose scanning reader (FREESTYLE YASH 14 DAY READER) [facility] 06-04 00:00: 00 Yes [id number] 1{appli catorfu l} 1 Applicator ful 4 (four) times daily. Check glucose QID as directed [facility] flash glucose sensor (FREESTYLE YASH 14 DAY SENSOR) Kit 06-04 00:00: 00 Yes [id number] 1{appli cator} 1 Applicator 4 (four) times daily. [facility] flash glucose scanning reader (FREESTYLE YASH 14 DAY READER) Misc 06-04 00:00: 00 Yes [id number] 1{appli catorfu l} 1 Applicator ful 4 (four) times daily. Check glucose QID as directed [facility] flash glucose sensor (FREESTYLE YASH 14 DAY SENSOR) Kit 06-04 00:00: 00 Yes [id number] 1{appli cator} 1 Applicator 4 (four) times daily. [facility] Adult Aspirin Regimen 81 mg tablet,mary yed release Take 1 tablet every day by oral route. Adult Aspirin Regimen 81 mg tablet,mary yed release Take 1 tablet every day by oral route. No 1 Q1D Adult Aspirin Regimen 81 mg tablet,del ayed release Take 1 tablet every day by oral route. [facility] BD Sneha 2nd Gen Pen Needle 32 gauge x 5/32" use as directed 4 times daily BD Sneha 2nd Gen Pen Needle 32 gauge x 5/32" use as directed 4 times daily No BD Sneha 2nd Gen Pen Needle 32 gauge x 5/32" use as directed 4 times daily [facility] bumetanide 1 mg tablet TAKE 1 TABLET BY MOUTH ONCE DAILY bumetanide 1 mg tablet TAKE 1 TABLET BY MOUTH ONCE DAILY No bumetanide 1 mg tablet TAKE 1 TABLET BY MOUTH ONCE DAILY [facility] ergocalcife rol (vitamin D2) 1,250 mcg (50,000 unit) capsule TAKE 1 CAPSULE BY MOUTH ONCE A WEEK ergocalcife rol (vitamin D2) 1,250 mcg (50,000 unit) capsule TAKE 1 CAPSULE BY MOUTH ONCE A WEEK No ergocalcif kassidy (vitamin D2) 1,250 mcg (50,000 unit) capsule TAKE 1 CAPSULE BY MOUTH ONCE A WEEK [facility] Farxiga 5 mg tablet TAKE 1 TABLET BY MOUTH ONCE DAILY FOR 30 DAYS Farxiga 5 mg tablet TAKE 1 TABLET BY MOUTH ONCE DAILY FOR 30 DAYS No Farxiga 5 mg tablet TAKE 1 TABLET BY MOUTH ONCE DAILY FOR 30 DAYS [facility] FreeStyle Yash 14 Day [place] FreeStyle Yash 14 Day [place] No FreeStyle Yash 14 Day [place] [facility] FreeStyle Yash 14 Day Sensor FreeStyle Yash 14 Day Sensor No FreeStyle Yash 14 Day Sensor [facility] FreeStyle Yash 14 Day Sensor kit USE DAILY BUT CHANGE EVERY 14 DAYS FreeStyle Yash 14 Day Sensor kit USE DAILY BUT CHANGE EVERY 14 DAYS No FreeStyle Yash 14 Day Sensor kit USE DAILY BUT CHANGE EVERY 14 DAYS [facility] gabapentin 100 mg capsule TAKE 1 CAPSULE BY MOUTH two times daily gabapentin 100 mg capsule TAKE 1 CAPSULE BY MOUTH two times daily No gabapentin 100 mg capsule TAKE 1 CAPSULE BY MOUTH two times daily [facility] [employer] Thyroid 30 mg tablet TAKE 1 TABLET BY MOUTH ONCE DAILY FOR 30 DAYS [employer] Thyroid 30 mg tablet TAKE 1 TABLET BY MOUTH ONCE DAILY FOR 30 DAYS No [employer] Thyroid 30 mg tablet TAKE 1 TABLET BY MOUTH ONCE DAILY FOR 30 DAYS [facility] OneTouch Verio test strips OneTouch Verio test strips No OneTouch Verio test strips [facility] Ozempic 0.25 mg or 0.5 mg (2 mg/1.5 mL) subcutaneou s pen injector Inject 0.5 mg every week by subcutaneou s route for 30 days. Ozempic 0.25 mg or 0.5 mg (2 mg/1.5 mL) subcutaneou s pen injector Inject 0.5 mg every week by subcutaneou s route for 30 days. No .5mg Q1W Ozempic 0.25 mg or 0.5 mg (2 mg/1.5 mL) subcutaneo us pen injector Inject 0.5 mg every week by subcutaneo us route for 30 days. [facility] Tradjenta 5 mg tablet TAKE 1 TABLET BY MOUTH ONCE DAILY IN THE MORNING Tradjenta 5 mg tablet TAKE 1 TABLET BY MOUTH ONCE DAILY IN THE MORNING No Tradjenta 5 mg tablet TAKE 1 TABLET BY MOUTH ONCE DAILY IN THE MORNING [facility] Vitamin D2 Vitamin D2 No Vitamin D2 [facility] Vitamin D3 1000 IU DAILY Vitamin D3 1000 IU DAILY No Vitamin D3 1000 IU DAILY [facility] Vital Signs Vital Name Observation Time Observation Value Comments S ource Systolic blood pressure 2022-02-23 20:45:00 105 mm[Hg] [facility] Diastolic blood pressure 2022-02-23 20:45:00 74 mm[Hg] [facility] Heart rate 2022-02-23 20:45:00 77 /min [facility] Body height 2022-02-23 20:45:00 157.5 cm [facility] Body weight 2022-02-23 20:45:00 48.081 kg [facility] BMI 2022-02-23 20:45:00 19.39 kg/m2 [facility] Oxygen saturation in Arterial blood by Pulse oximetry 2022-02-23 20:45:00 99 /min [facility] Systolic blood pressure 2022-01-18 22:23:00 149 mm[Hg] [facility] Diastolic blood pressure 2022-01-18 22:23:00 84 mm[Hg] [facility] Heart rate 2022-01-18 22:23:00 68 /min [facility] Body weight 2022-01-18 22:23:00 50.803 kg [facility] BMI 2022-01-18 22:23:00 20.49 kg/m2 [facility] Oxygen saturation in Arterial blood by Pulse oximetry 2022-01-18 22:23:00 94 /min [facility] Systolic blood pressure 2021-09-18 18:29:00 156 mm[Hg] [facility] Diastolic blood pressure 2021-09-18 18:29:00 85 mm[Hg] [facility] Heart rate 2021-09-18 18:29:00 69 /min [facility] Res[facility] 2021-09-18 18:29:00 16 /min [facility] Body weight 2021-09-18 18:29:00 55.792 [facility] Oxygen saturation in Arterial blood by Pulse oximetry 2021-09-18 18:29:00 97 /min [facility] BP Diastolic 2020-07-10 00:00:00 86 mm[Hg] [facility] Height 2020-07-10 00:00:00 62 [in_i] [facility] BMI (Body Mass Index) 2020-07-10 00:00:00 33.5 kg/m2 [facility] BP Systolic 2020-07-10 00:00:00 137 mm[Hg] [facility] Body Weight 2020-07-10 00:00:00 183 [lb_av] [facility] BP Diastolic 2020-02-07 00:00:00 78 mm[Hg] [facility] Height 2020-02-07 00:00:00 62 [in_i] [facility] BMI (Body Mass Index) 2020-02-07 00:00:00 33 kg/m2 [facility] BP Systolic 2020-02-07 00:00:00 122 mm[Hg] [facility] Body Weight 2020-02-07 00:00:00 180.2 [lb_av] [facility] BP Diastolic 2019-12-24 00:00:00 78 mm[Hg] [facility] Height 2019-12-24 00:00:00 62 [in_i] [facility] BMI (Body Mass Index) 2019-12-24 00:00:00 31.5 kg/m2 [facility] BP Systolic 2019-12-24 00:00:00 110 mm[Hg] [facility] Body Weight 2019-12-24 00:00:00 172 [lb_av] [facility] Procedures Procedure Date / Time Performed Performing Clinician Source CONSENT/REFUSAL FOR DIAGNOSIS AND TREATMENT 2022-06-23 20:02:57 Doctor Unassigned, [facility] PHYSICIAN ORDERS 2022-05-14 06:01:00 Doctor Unas signed, [facility] HB CREATININE SERUM/BLOOD FOR IMAGING 2022-04-02 21:10:00 Faith Michel [facility] CT ABDOMEN PELVIS W CONTRAST 2022-04-02 20:43:00 Faith Michel [facility] CBC WITH DIFF 2022-03-29 22:37:00 [facility] 2022-03-29 22:23:51 Doctor Unassigned, [facility] ECG 12-LEAD 2021-09-18 21:45:54 Chalo Christianson [facility] e[facility] CONSENT/REFUSAL FOR DIAGNOSIS AND TREATMENT 2021-06-23 18:30:15 Doctor Unassigned, [facility] ASSIGNMENT OF BENEFITS 2021-06-23 18:30:01 Doctor Unassigned, [facility] [id number] 2021-04-21 00:00:00 [facility] [place] Plan of Care Planned Activity Planned Date Details Comments Source Diagnostic Test Pending 2020-07-10 00:00:00 glucose, fingerstick, blood [code = glucose, fingerstick, blood] [facility] Diagnostic Test Pending 2020-07-10 00:00:00 hemoglobin A1C, fingerstick [code = hemoglobin A1C, fingerstick] [facility] Encounters Start Date/Time End Date/Time Encounter Type Admission Type Attending [facility] Care Facility Care Department Encounter ID Source 2022-07-15 12:08:12 Outpatient [facility] [id number] [facility] 2022-07-14 13:01:54 Outpatient [facility] [id number] [facility] 2022-04-05 13:49:37 Outpatient [facility] [id number] [facility] 2021-09-22 17:34:30 Outpatient [facility] [id number] [facility] 2021-09-18 13:11:20 Outpatient CHALO CHRISTIANSON [facility] [id number] [facility] 2021-09-17 13:49:24 Outpatient [facility] [id number] [facility] 2021-09-16 14:24:43 Outpatient CHALO CHRISTIANSON [facility] [id number] [facility] 2021-04-02 13:46:27 Outpatient 3 [id number] ENCPL PUL [id number] [facility] [place] [facility] 2021-04-02 13:45:28 Outpatient 3 [id number] ENC[facility] PUL [id number] [facility] [place] 2021-04-02 13:44:46 Outpatient 3 [id number] ENCPL PUL [id number] [facility] [place] 2021-04-02 13:43:23 Outpatient 3 [id number] ENCPL REF [id number] [facility] [place] 2021-01-05 19:43:30 Outpatient R GAYATRI LOBO [facility] [id number] [facility] 2021-01-05 13:14:53 Emergency [facility] [id number] [facility] 2023-01-05 17:18:55 2023-01-05 17:18:55 Outpatient [facility] [id number] Jude Pulliam 2022-12-31 00:00:00 2022-12-31 00:00:00 Outpatient GC_GCBZW_Ka diyala_S PRIV PRIV [id number] [facility] 2022-10-19 14:14:12 2022-10-19 14:14:12 Outpatient [facility] [id number] Jude Pulliam 2022-09-22 11:09:00 2022-09-25 17:32:00 Inpatient E ENA INFANTE [facility] [id number] [place] Mauricio garcia 2022-09-03 09:35:23 2022-09-03 23:59:00 Hospital Encounter Marilu [facility] 1.2.840.114 350.1.13.10 4.2.7.2.686 [id number] [facility] 2022-09-03 08:49:31 2022-09-03 09:34:00 Hospital Encounter Marilu [facility] 1.2.840.114 350.1.13.10 4.2.7.2.686 [id number] [facility] 2022-09-03 00:00:00 2022-09-03 09:34:00 Outpatient R MARILU FAITH [facility] [id number] [facility] 2022-08-24 16:45:00 2022-08-24 17:00:00 Operations Label Clerk Visit Pob, 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 Alroumoh, Manaf A [facility] 1.840.114 350.1.13.10 4.2.7.2.686 [id number] [facility] 2022-08-24 16:45:00 2022-08-24 16:45:00 Outpatient R MARCIANO ELLIOTT [facility] [id number] [facility] 2022-06-25 00:00:00 2022-06-25 00:00:00 Outpatient R FAITH MICHEL [facility] [id number] [facility] 2022-06-23 15:15:00 2022-06-23 15:30:00 Operations Label Clerk Visit Pob, 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 Marciano Elliott [facility] 1.840.114 350.1.13.10 4.2.7.2.686 [id number] [facility] 2022-06-23 15:15:00 2022-06-23 15:15:00 Outpatient R EARL [facility] [id number] [facility] 2022-06-23 00:00:00 2022-06-23 00:00:00 Orders Only Doctor Unassigned, [facility] 1.84.114 350.1.13.10 4.2.7.2.686 [id number] [facility] 2022-06-17 21:22:00 2022-06-17 21:22:00 Outpatient Nazario Kwok [facility] [id number] [facility] 2022-05-14 16:30:00 2022-05-14 16:45:00 Operations Label Clerk Visit Pob, 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 Grzegorz Haynes [facility] 1.840.114 350.1.13.10 4.2.7.2.686 [id number] [facility] 2022-05-14 16:30:00 2022-05-14 16:30:00 Outpatient R GRZEGORZ HAYNES [facility] [id number] [facility] 2022-05-14 00:00:00 2022-05-14 00:00:00 Orders Only Doctor Unassigned, [facility] 1.84.114 350.1.13.10 4.2.7.2.686 [id number] [facility] 2022-04-12 14:30:00 2022-04-12 14:45:00 Operations Label Clerk Visit Pob, Adc Lab Grzegorz Chin [facility] 1..114 350.1.13.10 4.2.7.2.686 [id number] [facility] 2022-04-12 14:30:00 2022-04-12 14:30:00 Outpatient R GRZEGORZ HAYNES [facility] [id number] [facility] 2022-04-12 00:00:00 2022-04-12 00:00:00 Outpatient R RADIOLOGY [facility] [id number] [facility] 2022-04-05 13:48:00 2022-04-05 19:26:00 Emergency E KANE GARCIA [facility] [id number] [facility] 2022-04-05 13:25:00 2022-04-05 13:25:00 Outpatient R RADIOLOGY [facility] [id number] [facility] 2022-04-02 13:33:26 2022-04-02 23:59:00 Outpatient R FAITH MICHEL [facility] [id number] [facility] 2022-04-02 13:33:26 2022-04-02 23:59:00 Hospital Encounter Faith Michel [facility] 1.84.114 350.1.13.10 4.2.7.2.686 [id number] [facility] 2022-03-29 16:30:00 2022-03-29 16:45:00 Operations Label Clerk Visit Pob, Adc Lab Faith Roe [facility] NAL [facility] 1.840.114 350.1.13.10 4.2.7.2.686 [id number] [facility] 2022-03-29 16:30:00 2022-03-29 16:30:00 Outpatient R FAITH MICHEL [facility] [id number] [facility] 2022-03-29 00:00:00 2022-03-29 00:00:00 Orders Only Doctor Unassigned, [facility] 1.84.114 350.1.13.10 4.2.7.2.686 [id number] [facility] 2022-03-26 13:30:00 2022-03-26 13:30:00 [facility] [id number] [facility] 2022-02-23 14:30:00 2022-02-23 15:08:25 Out[facility] [id number] [facility] 2022-02-23 14:30:00 2022-02-23 15:08:25 [facility] 1.84.114 350.1.13.10 4.2.7.2.686 [id number] [facility] 2022-02-15 00:00:00 2022-02-15 00:00:00 Patient Secure Msg Doctor Unassigned, [facility] 1.840.114 350.1.13.10 4.2.7.2.686 [id number] [facility] 2022-01-18 16:30:00 2022-01-18 16:38:58 Outpatient R MATTHEW BENSON MATTHEWBENSON [facility] [id number] [facility] 2022-01-18 16:30:00 2022-01-18 16:38:58 Office Visit Felisa Odessa Benson Castro [facility] 1.2.840.114 350.1.13.10 4.2.7.2.686 [id number] [facility] 2021-12-11 00:00:00 2021-12-11 00:00:00 Refill MatthewBenson [facility] 1.2.840.114 350.1.13.10 4.2.7.2.686 [id number] [facility] 2021-11-30 15:57:43 2021-11-30 23:59:00 Outpatient R RADIOLOGY [facility] [id number] [facility] 2021-11-30 15:57:43 2021-11-30 23:59:00 Hospital Encounter Radiology [facility] 1.2.840.114 350.1.13.10 4.2.7.2.686 [id number] [facility] 2021-10-01 11:00:00 2021-10-01 23:59:00 Outpatient CHALO CHRISTIANSON [facility] [id number] [facility] 2021-09-18 13:40:00 2021-09-18 14:48:02 Office Visit Chalo Christianson [facility] [id number] 1.2.840.114 350.1.13.58 9.2.7.2.686 [id number] [facility] 2021-07-06 16:36:00 2021-07-07 15:54:00 Outpatient ANG ANNE ALEKSANDER CAR [id number] [facility] 2021-06-23 13:45:00 2021-06-23 14:00:00 Operations Label Clerk Visit Pob, 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 Grzegorz Haynes [facility] 1.2.840.114 350.1.13.10 4.2.7.2.686 [id number] [facility] 2021-06-23 13:45:00 2021-06-23 13:45:00 Outpatient R GRZEGORZ HAYNES [facility] [id number] [facility] 2021-06-23 00:00:00 2021-06-23 00:00:00 Orders Only Doctor Unassigned, [facility] 1.2.840.114 350.1.13.10 4.2.7.2.686 [id number] [facility] 2021-04-06 20:57:00 2021-04-25 12:25:00 Inpatient 3 Stephen Ojeda ENCPL PUL [id number] [place] 2021-02-23 00:00:00 2021-02-23 00:00:00 [facility] 1.2.840.114 350.1.13.10 4.2.7.2.686 [id number] [facility] 2021-02-09 00:00:00 2021-02-09 00:00:00 [facility] 1.2.840.114 350.1.13.10 4.2.7.2.686 [id number] [facility] 2021-01-26 11:23:08 2021-01-26 11:43:42 [facility] 1.2.840.114 350.1.13.10 4.2.7.2.686 [id number] [facility] 2021-01-26 11:20:00 2021-01-26 11:43:42 Outpatient R TAHIRA SINGHMALLORY [facility] [id number] [facility] 2021-01-26 11:20:00 2021-01-26 11:43:42 [facility] [id number] [facility] 2021-01-26 11:20:00 2021-01-26 11:20:00 [facility] [id number] 2021-01-22 07:50:27 2021-01-22 08:43:54 Operations Label Clerk Visit Pob, 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 Marciano Elliott [facility] 1.2.840.114 350.1.13.10 4.2.7.2.686 [id number] [facility] 2021-01-22 07:45:00 2021-01-22 08:43:54 Outpatient R MARCIANO ELLIOTT [facility] [id number] [facility] 2021-01-22 07:45:00 2021-01-22 07:45:00 Outpatient R MARCIANO ELLIOTT [facility] [id number] [facility] 2020-12-25 00:00:00 2020-12-25 00:00:00 Benson Roberson [facility] 1.2.840.114 350.1.13.10 4.2.7.2.686 [id number] [facility] 2020-12-23 00:00:00 2020-12-23 00:00:00 Telephone Sarah Espinal [facility] 1.2.840.114 350.1.13.10 4.2.7.2.686 [id number] [facility] 2020-12-23 00:00:00 2020-12-23 00:00:00 Patient Secure Msg Doctor Unassigned, [facility] 1.2.840.114 350.1.13.10 4.2.7.2.686 [id number] [facility] 2020-12-17 07:54:57 2020-12-17 23:59:00 Hospital Encounter Radiology [facility] 1.2.840.114 350.1.13.10 4.2.7.2.686 [id number] [facility] 2020-12-17 00:00:00 2020-12-17 00:00:00 Outpatient R RADIOLOGY [facility] [id number] [facility] 2020-11-25 13:48:41 2020-11-25 14:12:26 Office Visit Tahira Singhmallory [facility] 1..840.114 350.1.13.10 4.2.7.2.686 [id number] [facility] 2020-11-25 13:40:00 2020-11-25 13:40:00 Outpatient R TAHIRA SINGHMALLORY [facility] [id number] [facility] 2020-11-14 00:00:00 2020-11-14 00:00:00 [facility]..840.114 350.1.13.10 4.2.7.2.686 [id number] [facility] 2020-11-14 00:00:00 2020-11-14 00:00:00 [facility] 1.2.840.114 350.1.13.10 4.2.7.2.686 [id number] [facility] 2020-11-12 12:08:00 2020-11-12 12:43:00 Surgery Gayatri Lobo [facility] 1.2.840.114 350.1.13.10 4.2.7.2.686 [id number] [facility] 2020-11-12 12:08:00 2020-11-12 12:43:00 Surgery TiffGayatri raza [facility] [place] 1.2.840.114 350.1.13.10 4.2.7.2.686 [id number] [facility] 2020-11-12 10:46:00 2020-11-12 12:35:00 Hospital Encounter Gayatri Lobo [facility] [place] 1.2.840.114 350.1.13.10 4.2.7.2.686 [id number] [facility] 2020-11-12 10:46:00 2020-11-12 12:35:00 Hospital Encounter Gayatri Lobo [facility] [place] 1.2.840.114 350.1.13.10 4.2.7.2.686 [id number] [facility] 2020-11-11 08:12:07 2020-11-11 08:27:07 Laboratory Only Only[facility] 1.2.840.114 350.1.13.10 4.2.7.2.686 [id number] [facility] 2020-11-11 08:12:07 2020-11-11 08:27:07 Laboratory Only Only, Adc Test Ivy [facility] 1.2.840.114 350.1.13.10 4.2.7.2.686 [id number] [facility] 2020-11-11 08:15:00 2020-11-11 08:15:00 Outpatient R [facility] [id number] [facility] 2020-10-24 00:00:00 2020-10-24 00:00:00 Orders Only Doctor Unassigned, [facility] 1.2.840.114 350.1.13.10 4.2.7.2.686 [id number] [facility] 2020-10-08 18:34:00 2020-10-08 22:22:00 Emergency Ashlee Mali [facility] [id number] 350.1.13.10 4.2.7.2.686 [id number] [facility] 2020-10-07 00:00:00 2020-10-07 00:00:00 Telephone Benson Castro [facility] 1.2840.114 350.1.13.10 4.2.7.2.686 [id number] [facility] 2020-10-03 00:00:00 2020-10-03 00:00:00 Patient Secure Danya Bob [facility] PROFESS[facility] NAL BUILDING 1.20.114 350.1.13.10 4.2.7.2.686 [id number] [id number] [facility] 2020-10-01 10:00:00 2020-10-01 10:00:00 Outpatient EMMANUELLE PRITCHARD [facility] [id number] [facility] 2020-10-01 00:00:00 2020-10-01 00:00:00 Orders Only Doctor Unassigned, [facility] 1.2840.114 350.1.13.10 4.2.7.2.686 [id number] [facility] 2020-09-26 08:11:48 2020-09-26 08:26:48 Laboratory Only Only, Adc Test Latricia [place] [facility] 1.2840.114 350.1.13.10 4.2.7.2.686 [id number] [facility] 2020-09-26 08:00:00 2020-09-26 08:00:00 Outpatient R [facility] [id number] [facility] 2020-09-23 11:10:57 2020-09-23 11:46:21 Office Visit Benson Castro [facility] 1.2.840.114 350.1.13.10 4.2.7.2.686 [id number] [id number] [facility] 2020-09-23 11:10:57 2020-09-23 11:46:21 Office Visit Benson Castro [facility] Building 1..840.114 350.1.13.10 4.2.7.2.686 [id number] 2020-09-23 11:00:00 2020-09-23 11:00:00 Outpatient R BENSON CASTRO HOWARD [facility] [id number] [facility] 2020-09-17 00:00:00 2020-09-17 00:00:00 Orders Only Doctor Unassigned, [facility] 1..840.114 350.1.13.10 4.2.7.2.686 [id number] [facility] 2020-08-27 11:24:21 2020-08-27 11:54:21 Office Visit Latasha Fernandez [facility] Building 1..840.114 350.1.13.10 4.2.7.2.686 [id number] [facility] 2020-08-27 11:30:00 2020-08-27 11:30:00 Outpatient R LATASHA FERNANDEZ STRAHIL [facility] [id number] [facility] 2020-08-27 00:00:00 2020-08-27 00:00:00 [facility] 1.2.840.114 350.1.13.10 4.2.7.2.686 [id number] [facility] 2020-08-25 14:02:06 2020-08-25 14:32:42 [facility] 1.2.840.114 350.1.13.10 4.2.7.2.686 [id number] [id number] [facility] 2020-08-25 14:00:00 2020-08-25 14:00:00 [facility] [id number] [facility] 2020-08-25 00:00:00 2020-08-25 00:00:00 Orders Only Doctor Unassigned, [facility] 1..840.114 350.1.13.10 4.2.7.2.686 [id number] [id number] [facility] 2020-08-19 00:00:00 2020-08-19 00:00:00 Telephone Benson Castro [facility] 1.2.840.114 350.1.13.10 4.2.7.2.686 [id number] [facility] 2020-08-13 14:00:00 2020-08-13 14:00:00 Outpatient R LTAASHA FERNANDEZ STRAHIL [facility] [id number] [facility] 2020-07-31 15:26:34 2020-07-31 23:59:00 Hospital Encounter Benson Castro [facility] 1.2.840.114 350.1.13.10 4.2.7.2.686 [id number] [facility] 2020-07-31 15:26:34 2020-07-31 23:59:00 Outpatient BENSON CASEY HOWARD [facility] [id number] [facility] 2020-07-31 00:00:00 2020-07-31 00:00:00 Outpatient BENSON CASEY HOWARD [facility] [id number] [facility] 2020-07-30 00:00:00 2020-07-30 00:00:00 Telephone MatthewBenson [facility] 1.2.840.114 350.1.13.10 4.2.7.2.686 [id number] [facility] 2020-07-29 00:00:00 2020-07-29 00:00:00 [facility] 1.2.840.114 350.1.13.10 4.2.7.2.686 [id number] [facility] 2020-07-28 08:21:39 2020-07-28 08:36:39 Operations Label Clerk Visit Pob, [facility] 1.2.840.114 350.1.13.10 4.2.7.2.686 [id number] [facility] 2020-07-28 08:30:00 2020-07-28 08:30:00 Outpatient DANYA CONTI [facility] [id number] [facility] 2020-07-28 00:00:00 2020-07-28 00:00:00 Telephone MatthewBenson nix [facility] Building 1.2.840.114 350.1.13.10 4.2.7.2.686 [id number] [facility] 2020-07-15 00:00:00 2020-07-15 00:00:00 Telephone Benson Castro [facility] Professio nal Building 1..840.114 350.1.13.10 4.2.7.2.686 [id number] [id number] [facility] 2020-07-14 14:38:23 2020-07-14 15:12:09 [facility] 1..840.114 350.1.13.10 4.2.7.2.686 [id number] [id number] [facility] 2020-07-14 14:40:00 2020-07-14 14:40:00 Outpatient [facility] [id number] [facility] 2020-07-12 01:24:00 2020-07-12 01:24:00 Outpatient Daniel_T VFP [facility] [id number] [facility] 2020-07-10 00:00:00 2020-07-10 00:00:00 Samm Alexander MD: [id number] [facility], [address], [place] [address] , Ph. Benjamin_T [facility] - [facility] - _ELEANORU_René [facility] [id number] [facility] 2020-07-01 12:13:16 2020-07-01 12:28:16 Operations Label Clerk Visit [facility] Latasha Fernandez [facility] 1..840.114 350.1.13.10 4.2.7.2.686 [id number] [facility] 2020-07-01 12:00:00 2020-07-01 12:00:00 Outpatient LATASHA MAZARIEGOS STRAHIL [facility] [id number] [facility] 2020-06-27 11:33:44 2020-06-27 11:48:44 Laboratory Only Only, Adc Test Grzegorz Haynes [facility] 1.840.114 350.1.13.10 4.2.7.2.686 [id number] [facility] 2020-06-27 10:30:00 2020-06-27 10:30:00 Outpatient R [facility] [id number] [facility] 2020-06-27 00:00:00 2020-06-27 00:00:00 Orders Only Doctor Unassigned, [facility] 1.2.840.114 350.1.13.10 4.2.7.2.686 [id number] [id number] [facility] 2020-06-20 00:00:00 2020-06-20 00:00:00 Patient Secure Msnaty Singh [facility] BUILDING 1..114 350.1.13.10 4.2.7.2.686 [id number] [facility] 2020-06-19 14:00:00 2020-06-19 14:00:00 Outpatient R [facility] [id number] [facility] 2020-06-15 00:00:00 2020-06-15 00:00:00 Patient Secure Msg Singh [facility] BUILDING 1..114 350.1.13.10 4.2.7.2.686 [id number] [facility] 2020-06-13 10:48:23 2020-06-13 23:59:00 Hospital Encounter Francisco [facility] 1..114 350.1.13.10 4.2.7.2.686 [id number] [facility] 2020-06-13 10:47:50 2020-06-13 11:02:50 Operations Label Clerk Visit Pob, 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 [facility] 1.114 350.1.13.10 4.2.7.2.686 [id number] [facility] 2020-06-13 09:10:33 2020-06-13 10:22:02 Office Visit Danya Singh [facility] Building 1.2.840.114 350.1.13.10 4.2.7.2.686 [id number] [id number] [facility] 2020-06-13 09:20:00 2020-06-13 09:20:00 Outpatient R [facility] [id number] [facility] 2020-06-09 00:00:00 2020-06-09 00:00:00 Telephone Benson Castro [facility] Building 1.2.840.114 350.1.13.10 4.2.7.2.686 [id number] [id number] [facility] 2020-06-04 00:00:00 2020-06-04 00:00:00 Outpatient R BENSON CASTRO HOWARD [facility] [id number] [facility] 2020-05-28 00:00:00 2020-05-28 00:00:00 Telephone Benson Castro [facility] Building 1.2.840.114 350.1.13.10 4.2.7.2.686 [id number] [facility] 2020-05-27 00:00:00 2020-05-27 00:00:00 Patient Outreach Jose Raul Li [facility] 1.2.840.114 350.1.13.10 4.2.7.2.686 [id number] [facility] 2020-05-23 10:49:27 2020-05-23 11:04:27 Operations Label Clerk Visit 2, Adc Lab Benson Castro [facility] 1.840.114 350.1.13.10 4.2.7.2.686 [id number] [facility] 2020-05-23 08:19:24 2020-05-23 10:59:14 Office Visit Benson Castro [facility] 1.840.114 350.1.13.10 4.2.7.2.686 [id number] [facility] 2020-05-23 08:40:00 2020-05-23 08:40:00 Outpatient BENSON CASEY HOWARD [facility] [id number] [facility] 2020-05-19 00:00:00 2020-05-19 00:00:00 Orders Only Doctor Unassigned, [facility] 1.84.114 350.1.13.10 4.2.7.2.686 [id number] [facility] 2020-04-10 07:43:00 2020-04-10 07:43:00 Outpatient Daniel_T VFP VFP [id number] [facility] 2020-04-09 08:19:39 2020-04-09 08:34:39 Operations Label Clerk Visit Pob, 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 Marciano Elliott A [facility] 1.840.114 350.1.13.10 4.2.7.2.686 [id number] [facility] 2020-04-09 08:15:00 2020-04-09 08:15:00 Outpatient MARCIANO NIXON [facility] [id number] [facility] 2020-04-09 00:00:00 2020-04-09 00:00:00 Orders Only Doctor Unassigned, [facility] 1.840.114 350.1.13.10 4.2.7.2.686 [id number] [id number] [facility] 2020-03-14 03:25:00 2020-03-14 03:25:00 Outpatient Daniel_T VFP VFP [id number] [facility] 2020-03-01 01:02:00 2020-03-01 01:02:00 Outpatient Daniel_T VFP VFP [id number] [facility] 2020-02-11 07:53:00 2020-02-11 07:53:00 Outpatient Daniel_T VFP VFP [id number] [facility] 2020-02-07 00:00:00 2020-02-07 00:00:00 Samm Alexander MD: [address] [address] , Ph. Daniel_T VFP [place] - [facility] - VM_ELEANORU_Dani el [id number] [facility] 2020-01-08 08:00:00 2020-01-08 08:00:00 Outpatient MARCIANO NIXON [facility] [id number] [facility] 2020-01-08 07:39:55 2020-01-08 07:54:55 Operations Label Clerk Visit Pob, 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 Marciano Elliott A [facility] 1.840.114 350.1.13.10 4.2.7.2.686 [id number] [facility] 2020-01-08 00:00:00 2020-01-08 00:00:00 Orders Only Doctor Unassigned, [facility] 1.840.114 350.1.13.10 4.2.7.2.686 [id number] [facility] 2019-12-31 02:04:00 2019-12-31 02:04:00 Outpatient Daniel_T VFP VFP [id number] [facility] 2019-12-24 00:00:00 2019-12-24 00:00:00 Samm Alexander MD: [address] [facility] [address] [address], [place] [address] , Ph. Alphonseel_T VFP [place] - [facility] - _Mary crawley [id number] [facility] 2019-12-18 07:41:51 2019-12-18 07:56:51 Operations Label Clerk Visit Po, 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 Erinmeterrie [facility] 1.84.114 350.1.13.10 4.2.7.2.686 [id number] [facility] 2019-12-18 07:45:00 2019-12-18 07:45:00 Outpatient MARCIANO NIXON [facility] [id number] [facility] 2019-12-13 04:08:00 2019-12-13 04:08:00 Outpatient Alphonseel_T VFP [facility] [id number] [facility] 2019-12-03 03:40:00 2019-12-03 03:40:00 Outpatient Daniel_T VFP VFP [id number] [facility] 2019-11-08 13:23:04 2019-11-08 13:38:04 Operations Label Clerk Visit [facility], 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 Marciano Elliott [facility] Building 1.840.114 350.1.13.10 4.2.7.2.686 [id number] [facility] 2019-11-08 13:15:00 2019-11-08 13:15:00 Outpatient MARCIANO NIXON [facility] [id number] [facility] 2019-11-08 00:00:00 2019-11-08 00:00:00 Orders Only Doctor Unassigned, [facility] 1.84.114 350.1.13.10 4.2.7.2.686 [id number] [facility] 2019-11-07 10:47:00 2019-11-07 10:47:00 Outpatient Alex VFP VFP [id number] [facility] 2019-10-04 10:10:00 2019-10-04 23:59:00 Hospital Encounter Marciano Elliott [facility] 1..114 350.1.13.10 4.2.7.2.686 [id number] [facility] 2019-10-04 10:15:33 2019-10-04 10:30:33 Operations Label Clerk Visit Pob, 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 1..114 350.1.13.10 4.2.7.2.686 [id number] [facility] 2019-10-04 00:00:00 2019-10-04 00:00:00 Outpatient R MARCIANO ELLIOTT [facility] [id number] [facility] 2019-08-23 16:12:00 2019-09-06 01:47:20 Inpatient HCAPM KEI [id number] [facility] 2019-08-23 16:16:00 2019-08-26 22:36:52 Inpatient HCAPM KEI [id number] [facility] 2019-08-03 10:30:00 2019-08-03 10:30:00 Outpatient R JAN VALENTINE [facility] [id number] [facility] 2019-08-03 09:58:47 2019-08-03 10:13:47 Operations Label Clerk Visit Pob, 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 Valentine, [facility] Building 1.84.114 350.1.13.10 4.2.7.2.686 [id number] [facility] 2019-08-03 00:00:00 2019-08-03 00:00:00 Orders Only Doctor Unassigned, [facility] 1.114 350.1.13.10 4.2.7.2.686 [id number] [facility] 2019-06-06 00:00:00 2019-06-06 00:00:00 Transition of Care Jcarlos Yazmin Reinaldo Little 1.2.840.114 350.1.13.10 4.2.7.2.686 [id number] [facility] 2019-06-03 20:41:23 2019-06-05 12:45:00 Inpatient X SUSANNAH WANG RUST LUIS [id number] [facility] 2019-06-03 20:41:23 2019-06-05 12:45:00 Hospital Encounter Sb Escobar Adnan [facility] 1.2.840.114 350.1.13.10 4.2.7.2.686 [id number] [facility] 2019-06-03 20:41:23 2019-06-03 20:41:23 Emergency X SB ESCOBAR RUST ERT [id number] [facility] 2019-04-27 02:15:54 2019-04-27 06:35:00 Emergency [facility] 1.2.840.114 350.1.13.10 4.2.7.2.686 [id number] [facility] 2019-04-26 22:52:50 2019-04-27 01:20:00 Emergency X SIVA ALVAREZ [facility] E[facility] [id number] [facility] 2019-04-26 22:52:50 2019-04-27 01:20:00 Emergency X SIVA ALVAREZ [facility] [id number] [facility] 2019-04-26 22:52:50 2019-04-27 01:20:00 Emergency Siva Alvarez [facility] 1.2.840.114 350.1.13.10 4.2.7.2.686 [id number] [facility] Results Test Description Test Time Test Comments Results Result Co mments Source [facility] WITH [id number] 22:56:35* Test Item Value Reference Range Interpretation Comme nts WBC (test code = 6690-2) See_Comment L [Automated messa ge] The system which generated this result transmitted reference range: 4.30 - 11.10 10*3/?L. The reference range was not used to interpret this result as normal/abnormal. RBC (test code = 789-8) See_Comment L [Automated messa ge] The system which generated this result transmitted reference range: 3.93 - 5.25 10*6/?L. The reference range was not used to interpret this result as normal/abnormal. HGB (test code = 718-7) 8.8 g/dL 11.6-15.0 L HCT (test code = 4544-3) 28.0 % 35.7-45.2 L MCV (test code = 787-2) 91.8 fL 80.6-95.5 MCH (test code = 785-6) 28.9 pg 25.9-32.8 MCHC (test code = 786-4) 31.4 g/dL 31.6-35.1 L RDW-SD (test code = 93919-1) 50.4 fL 39.0-49.9 H RDW-CV (test code = 788-0) 15.2 % 12.0-15.5 PLT (test code = 777-3) See_Comment [Automated messa ge] The system which generated this result transmitted reference range: 166 - 358 10*3/?L. The reference range was not used to interpret this result as normal/abnormal. MPV (test code = 77922-6) 10.0 fL 9.5-12.9 NRBC/100 WBC (test code = 0357354652) See_Comment [Automated me ssage] The system which generated this result transmitted reference range: 0.0 - 10.0 /100 WBCs. The reference range was not used to interpret this result as normal/abnormal. NRBC x10^3 (test code = 7189664945) See_Comment [Automated messa ge] The system which generated this result transmitted reference range: 10*3/?L. The reference range was not used to interpret this result as normal/abnormal. GRAN MAT (NEUT) % (test code = 770-8) 73.0 % IMM GRAN % (test code = 0115772397) 0.30 % LYMPH % (test code = 736-9) 15.3 % MONO % (test code = 5905-5) 6.9 % EOS % (test code = 713-8) 3.9 % BASO % (test code = 706-2) 0.6 % GRAN MAT x10^3(ANC) (test code = 6935598249) 2.43 10*3/uL 1.88-7.09 IMM GRAN x10^3 (test code = 7953849945) 0.00-0.06 LYMPH x10^3 (test code = 731-0) 0.51 10*3/uL 1.32-3.29 L MONO x10^3 (test code = 742-7) 0.23 10*3/uL 0.33-0.92 L EOS x10^3 (test code = 711-2) 0.13 10*3/uL 0.03-0.39 BASO x10^3 (test code = 704-7) 0.01-0.07 Lab Interpretation (test code = 50034-2) [facility]normal [facility] [id number] 18:36:00* Test Item Value Reference Range Interpretation Comme [...] MG/DL 70-110 H BLOOD UREA NITROGEN (test co de = BUN) 49 MG/DL 7-18 H GLOMERULAR FILTRATION RATE ( test code = GFR) 46 estGFR >60 L CREATININE (test code = CREAT) 1.3 MG/DL 0.6-1.0 H CALCIUM (test code = CA) 8.7 MG/DL 8.5-10.1 N Completed by Nursing: NONT PRO-BRAIN NATRIURETIC [id number] 18:36:00* Test Item Value Reference Range Interpretation Comme nts NT PRO-BRAIN NATRIURETIC PEP TI (test code = PROBNP) 368 PG/ML 0-100 H Completed by Nursing: [id number] 18:36:00* Test Item Value Reference Range Interpretation Comme nts TROPONIN-I (test code = TROPI) < 0.015 NG/ML 0.000-0.045 N Negative: </= 0. 045 Positive: >/= 0.046 Correlation with serial results, other cardiac markers, and clinical findings is necessary to determine the clinical significance of this result. Quantitative results using different methodologies should not be compared to one another as numerical results may varyby method. Completed by Nursing: NODRUGS OF ABUSE SCREEN [id number] 18:36:00* Test Item Value Reference Range Interpretation Comme nts URN COCAINE (test code = COCAURN) NEGATIVE SCcutoff <300 NG/ML URN CANNABINOIDS (test code = CANNABURN) NEGATIVE SCcutoff <50 NG/ML URN AMPHETAMINE (test code = AMPHETURN) NEGATIVE SCcutoff <1000 NG/ML URN BARBITURATE (test code = BARBITURN) NEGATIVE SCcutoff <200 NG/ML URN BENZODIAZEPINE (test code = BENZOURN) NEGATIVE SCcutoff <200 NG/ML URN OPIATES (test code = OPIATURN) NEGATIVE SCcutoff <2000 NG/ML URN PHENCYCLIDINE (PCP) (test code = PHENCURN) NEGATIVE SCcutoff <25 NG/ML URN METHADONE (test code = METHAURN) NEGATIVE SCcutoff <300 NG/ML BASIC METABOLIC [id number] 18:32:00* Test Item Value Reference Range Interpretation Comme [...] MG/DL 70-110 H BLOOD UREA NITROGEN (test co de = BUN) 49 MG/DL 7-18 H GLOMERULAR FILTRATION RATE ( test code = GFR) estGFR >60 CREATININE (test code = CREAT) MG/DL 0.6-1.0 CALCIUM (test code = CA) 8.7 MG/DL 8.5-10.1 N Completed by Nursing: NONT PRO-BRAIN NATRIURETIC [id number] 18:32:00* Test Item Value Reference Range Interpretation Comme nts NT PRO-BRAIN NATRIURETIC PEP TI (test code = PROBNP) PG/ML 0-100 Completed by Nursing: [id number] 18:32:00* Test Item Value Reference Range Interpretation Comme nts TROPONIN-I (test code = TROPI) NG/ML 0.000-0.045 Completed by Nursing: NOCBC W/AUTO [id number] 18:20:00* Test Item Value Reference Range Interpretation Comme nts WHITE BLOOD CELL (test code = WBC) 6.1 K/mm3 3.5-11.0 N RED BLOOD CELL (test code = RBC) 4.12 M/mm3 4.70-6.10 L HEMOGLOBIN (test code = HGB) 11.8 G/DL 10.4-14.9 N HEMATOCRIT (test code = HCT) 36.4 % 31.5-44.1 N MEAN CELL VOLUME (test code = MCV) 88.3 Fl 84.5-98.6 N MEAN CELL HGB (test code = MCH) 28.6 pg 27.0-34.2 N MEAN CELL HGB CONCETRATION (test code = MCHC) 32.4 G/DL 31.5-34.0 N RED CELL DISTRIBUTION WIDTH (test code = RDW) 12.8 SD 11.5-14.5 N PLATELET COUNT (test code = PLT) 303 K/mm3 150-450 N MEAN PLATELET VOLUME (test c ode = MPV) 9.70 fL 7.0-10.5 N NEUTROPHIL % (test code = NT%) 66.5 % 40-76 N LYMPHOCYTE % (test code = LY%) 22.1 % 20.5-51.1 N MONOCYTE % (test code = MO%) 7.9 % 1.7-9.3 N EOSINOPHIL % (test code = EO%) 2.5 % 0.0-6.0 N BASOPHIL % (test code = BA%) 0.5 % 0.0-2.0 N NUCLEATED RBC % (test code = NRBC%) 0.0 /100WBC% 0.0-1.0 N NEUTROPHIL # (test code = NT#) 4.0 K/mm3 1.8-7.6 N IMMATURE GRANULOCYTE # (test code = IG#) 0.03 x10 3/uL 0.00-0.03 N LYMPHOCYTE # (test code = LY#) 1.3 K/mm3 0.6-3.2 N MONOCYTE # (test code = MO#) 0.5 K/mm3 0.3-1.1 N EOSINOPHIL # (test code = EO#) 0.2 K/mm3 0.0-0.4 N BASOPHIL # (test code = BA#) 0.0 K/mm3 0.0-0.1 N NUCLEATED RBC # (test code = NRBC#) 0.0 K/mm3 0.0-0.1 N MANUAL DIFF REQUIRED (test c ode = MDIFF) NO DIFF/SCN CRITERIA - CT HEAD/BRAIN W/O [id number] 17:04:00Name: MAYFIELDMORELIA BETTS [facility] : 1970 Age/S: 49 / F [address] [address] Unit #: [id number] Loc: [place] [address] Phys: Domenica Quinn MD Acct: [id number] Dis Date: Status:PRE ER PHONE #: [phone] Exam Date: 08/23/2019 8074 FAX #: Reason: syncope EXAMS: CPT: [id number] CT HEAD/BRAIN W/O CONT 20719 INDICATIONS: syncope TECHNIQUE: Contiguous axial CT sections were obtained from the skull base to the vertex without intravenous contrast administration. CT DLP dose: 804 mGy centimeters. Iterative dose reduction technique utilized. Location: H54 COMPARISON: None available. FINDINGS: The brain parenchyma is unremarkable. The septum pellucidum and third ventricle are midline. The ventricles are normal in size, shape and position. There is no evidence of acute intracranial hemorrhage, acute infarction, or an intracranial mass lesion. The skull and extracranial sof t tissues are grossly within normal limits. Vascular calcifications are seen in the carotid siphons. IMPRESSION: 1. No evidence of acute intracranial abnormality. 2. Specifically, no evidence of hemorrhage, mass or stroke. at 1704 Reported and signed by: Miguel Cramer M.D. CC: Domenica Quinn MD; Ly JOSE; Jeet Manley MD Technologist:Praveena Lora, RT(R)(CT) CTDI: DLP: Trnscb Date/Time: 08/23/2019 (170) [email or web address] Orig Print D/T: S: 08/23/2019 (1708) PAGE 1 Signed Report Notes Date/Time Note Provider Source 2019-08-23 18:50:00 [id number]:50:00 [facility] ([facility])EMERGENCY PROVIDER REPORTREPORT#:[id number] REPORT STATUS: SignedDATE:08/23/19 TIME:1849 PATIENT: MORELIA MAYFIELD UNIT #: [id number]#: [id number] ROOM/BED:: 68 AGE: 49 SEX: F PCP PHYS: Jeet Manley MDSERVICE AUTHOR: Ly Lawler * ALL edits or amendments must be made on the electronic/computer document * HPI-Dizziness/Weakness GeneralConfirmed Patient YesPatient Type New patientInitial Greet Date/Time 08/23/19 1626 PresentationChief Complaint DizzyHx Obtained From PatientOnset Occurred GradualSymptom Duration Since onset, Waxes and wanesLocation HeadQuality AchingRadiationDoes not radiate. No: Arm R, Arm L, Shoulder, Jaw, Back, Abdomen, Leg L, Leg R. Severity: Onset ModerateSeverity: Current Moderate ContextImmunization Status General All up to date Free Text HPI NotesFree Text HPI [id number] female with past medical history of hypertension presents to the for 2-day complaint of dizziness and generalized weakness. Denies any cough, shortness of breath, fever or chills. Denies being around anyone with COVID-19 symptoms. Patient states she just does not feel like her regular self. States she has been more active working outside. Denies any other symptoms or complaints. Risk-Dizziness/Weakness Risk StratificationNIH Stroke Scale NIH Stroke Scale Response Value NIHSS Applicable? No 0 Total 0 Review of Systems ROS StatementsAll systems rev neg except as marked.Complete sys rev neg except as marked. Basic Review of SystemsBasic ROS MS: No ext swelling/pain Focused Review of SystemsConstitutionalReports: Malaise. EyesDenies: Blurred R, Blurred L, Blurred bilat, Diplopia, Discharge R, Discharge L,Discharge bilat, Eye pain R, Eye pain L, Eye pain bilat, Photophobia, Redness R,Redness L, Redness bilat, Swelling R, Swelling L, Swelling bilat, Visual loss R,Visual loss L, Visual loss bilat, Yellow R, Yellow L, Yellow bilat. Ears/Nose/ThroatDenies: Ear drainage R, Ear drainage L, Ear drainage bilat, Ear ringing R, Ear ringing L, Ear ringing bilat, Earache R, Earache L, Earache bilat, Hearing loss R, Hearing loss L, Hearing loss bilat, Mouth pain, Nasal congestion, Nose bleeding, Sinus problem, Sore throat, Throat pain, Throat swelling, Tongue pain,Tongue swelling, Toothache, Voice change. RespiratoryDenies: Cough, non-productive, Cough, productive, Dyspnea on exertion, Hemoptysis, Parox nocturnal dyspnea, Pleuritic pain, Shortness of breath, Wheezing. CardiovascularDenies: Chest pain, Dyspnea on exertion, Edema, Orthopnea, Palpitations, Parox nocturnal dyspnea, Syncope. GIDenies: Abdominal pain, Anorexia, Belching, Bloody/tarry stool, Constipation, Diarrhea, Dysphagia, Hematemesis, Hematochezia, Mucousy stool, Melena, Nausea, Rectal pain, Vomiting. FemaleDenies: Dysuria, Flank pain, Hematuria, Incontinence, Nocturia, Pelvic pain, , Urinary frequency, Urinary urgency, Urination decreased, Urination increased, Vaginal bleeding - abnl, Vaginal discharge. HematologicDenies: Adenopathy, Bleeding, Bruising, Petechiae. EndocrineDenies: Cold intolerance, Heat intolerance, Polydipsia, Polyphagia, Polyuria, Weight gain, Weight loss. SkinDenies: Abrasion, Abscess, Burn, Contusion, Diaphoresis, Erythema, Itching, Jaundice, Laceration, Rash, Swelling, Ulceration. NeurologicDenies: Abnormal movement, Bladder dysfunction, Bowel dysfunction, Change LOC, Confusion, Dizziness, Focal weakness, Generalized weakness, Headache, Lightheaded, Numbness, Problem walking, Seizure, Shaking, Slurred speech, Spinning sensation, Syncope, Tingling, Unable to speak, Vision change. PsychiatricDenies: Agitation, Anxiety, Change mental status, Confusion, Delusional, Depression, Hallucinations, auditory, Hallucinations, visual, Homicidal ideation, Hostile, Insomnia, Stress, Suicidal ideation, Unable to control self. Past Medical History - AdultStated Complaint dizzyAllergiesCoded Allergies:No Known Allergies (08/23/19) Review of Nursing Notes Rev avail, and agreePt reports no significant: Family history, Social historySmoking status for patients 13 years old or older: Never Smoker Physical Exam Vital SignsVital SignsFirst Documented: Result Date Time Pulse Ox 98 08/22 161 B/P 132/72 08/22 161 B/P Mean 92 08/22 1616 O2 Delivery Room air 08/22 1616 Temp 36.7 08/22 1616 Pulse 86 08/22 161 Resp 16 08/22 1616 Last Documented: Result Date Time Pulse Ox 98 08/22 1909 B/P 162/90 08/22 1909 B/P Mean 114 08/22 1909 O2 Delivery Room air 08/22 1909 Pulse 85 08/22 1909 Resp 16 08/22 1909 Temp 36.7 08/22 1616 Review of Vital Signs Reviewed Basic Physical ExamBasic PE HEAD: Atraumatic/NC, EYES: PERRL, conj clear, ENT: Membranes moist, NECK: Supple, ABD: Soft/non-tender, EXT: No gross abnormality, SKIN: No rashes, warm/dry, PSYCH: NL thought content Focused PEGeneral/Const General/Const Awake, Alert, No acute distress, Well appearingMS Head Head Atraumatic, NormocephalicEyes Eyes Atraumatic, PERRL, EOMI, No nystagmusEars/Nose/Throat Ears/Nose/Throat Atraumatic, Airway patent, Mucous membranes moist, Pharynx NLMS Neck Neck Atraumatic, Supple, No meningismus, Full range of motionResp/Chest Respiratory/Chest Atraumatic, Breath sounds NL, Breath sounds = bilat, No respiratory distressCardiovascular Cardiovascular Heart rate NL, Regular rhythm, Heart sounds NL, No murmurs, Cap refill not delayed, Peripheral circulation NLAbdomen/GI Abdomen/GI Atraumatic, Soft, Non-tender, McBurney's non-tenderMS Back Back Atraumatic, Inspection NL, Full range of motion, Painless range of motionLymphatic Lymphatic No gross adenopathyMS Lower Extrem Lower Ext/Pelvis/MS Atraumatic, Inspection NL, Full range of motion, No swellingSkin Skin Atraumatic, Color NL, No rash, WarmNeurologic Neurologic Oriented X3, Speech NL, No motor deficits, No sensory deficits Interpretation Diagnostics Lab Results InterpretationResultsLaboratory Tests 08/23/19 163:[Embedded Image Not Available]Laboratory Tests: 08/22 1634 Chemistry Sodium (134 - 147 mmol/L) 138 Potassium (3.4 - 5.0 mmol/L) 3.7 Chloride (100 - 108 mmol/L) 101 Carbon Dioxide (21 - 32 mmol/L) 32 Anion Gap (4.0 - 15.0 GAP calc) 5.0 BUN (7 - 18 MG/DL) 49 H Creatinine (0.6 - 1.0 MG/DL) 1.3 H Glomerular Filtr Rate (>60 estGFR) 46 L Glucose (70 - 110 MG/DL) 188 H Calcium (8.5 - 10.1 MG/DL) 8.7 Troponin I (0.000 - 0.045 NG/ML) < 0.015 NT-Pro-B Natriuret Pep (0 - 100 PG/ML) 368 H Hematology WBC (3.5 - 11.0 K/mm3) 6.1 RBC (4.70 - 6.10 M/mm3) 4.12 L Hgb (10.4 - 14.9 G/DL) 11.8 Hct (31.5 - 44.1 %) 36.4 MCV (84.5 - 98.6 Fl) 88.3 MCH (27.0 - 34.2 pg) 28.6 MCHC (31.5 - 34.0 G/DL) 32.4 RDW (11.5 - 14.5 SD) 12.8 Plt Count (150 - 450 K/mm3) 303 MPV (7.0 - 10.5 fL) 9.70 Neut % (Auto) (40 - 76 %) 66.5 Lymph % (Auto) (20.5 - 51.1 %) 22.1 [place] % (Auto) (1.7 - 9.3 %) 7.9 Eos % (Auto) (0.0 - 6.0 %) 2.5 Baso % (Auto) (0.0 - 2.0 %) 0.5 Neut # (Auto) (1.8 - 7.6 K/mm3) 4.0 Lymph # (Auto) (0.6 - 3.2 K/mm3) 1.3 [place] # (Auto) (0.3 - 1.1 K/mm3) 0.5 Eos # (Auto) (0.0 - 0.4 K/mm3) 0.2 Baso # (Auto) (0.0 - 0.1 K/mm3) 0.0 Abs Immat Gran (auto) (0.00 - 0.03 x10 3/uL) 0.03 Add Manual Diff (CRITERIA DIFF/SCN) NO Nucleated RBC % (0.0 - 1.0 /100WBC%) 0.0 Toxicology Urine Opiates Screen (<2000 NG/ML SCcutoff) NEGATIVE Urine Methadone Screen (<300 NG/ML SCcutoff) NEGATIVE Urine Barbiturates (<200 NG/ML SCcutoff) NEGATIVE Ur Phencyclidine Scrn (<25 NG/ML SCcutoff) NEGATIVE Ur Amphetamines Screen (<1000 NG/ML SCcutoff) NEGATIVE U Benzodiazepines Scrn (<200 NG/ML SCcutoff) NEGATIVE Urine Cocaine Screen (<300 NG/ML SCcutoff) NEGATIVE Urine Cannabinoids (<50 NG/ML SCcutoff) NEGATIVE Recent Impressions:CAT SCAN - CT HEAD/BRAIN W/O CONT 08/22 1630 Report Impression - Status: SIGNED Entered: 08/23/2019 7892 IMPRESSION: 1. No evidence of acute intracranial abnormality.2. Specifically, no evidence of hemorrhage, mass or stroke.Impression By: ScottieNBJed - Miguel Cramer M.D. Lab Imaging StatementLaboratory radiographic studies reviewed and considered in the medical decision-making. Point of Care TestingPulse Oximetry Pulse Ox % 98 On: Room air Interpretation Interpreted by me, Pulse oximetry normal Time 1617 ECG #1 InterpretationECG Documented in MUSE YesDate 08/23/19Time 1814Interpreted by and reviewed by me, ED physicianNL ECG Interpretation Normal rate, Normal sinus rhythmRate 70 Re-Evaluation MDM ED CourseMedication(s) OrderedMedication(s) Ordered:Electrolytic, Caloric, And Spike Sig/Benjamin Start time Last Medication Dose Route Stop Time Status Admin Sodium Chloride 1,000 ML X1ED STA 08/22 1626 DC 08/22 IV 08/22 1726 1740 Gastrointestinal Drugs Sig/Benjamin Start time Last Medication Dose Route Stop Time Status Admin Ondansetron HCl 4 MG X1ED STA 08/22 1626 DC / IV 08/22 1627 1739 Patient Discharge Departure Vital Signs/ConditionVital SignsFirst Documented: Result Date Time Pulse Ox 98 08/22 1617 B/P 132/72 08/22 1617 B/P Mean 92 08/22 1617 O2 Delivery Room air 08/22 1617 Temp 36.7 08/22 1617 Pulse 86 08/22 1617 Resp 16 08/22 1617 Last Documented: Result Date Time Pulse Ox 98 08/22 1910 B/P 162/90 08/22 1910 B/P Mean 114 08/22 1910 O2 Delivery Room air 08/22 1910 Pulse 85 08/22 1910 Resp 16 08/22 1910 Temp 36.7 08/22 1617 All vital signs available at the time of this entry have been reviewed. Condition Improved, Stable Clinical ImpressionClinical ImpressionPrimary Impression: DizzinessSecondary Impressions: DehydrationTime of Impression 185 Disposition DecisionDischarge )( Discharged to Home Yes )( Time 185 )( Date 08/23/19 Discharge/Care PlanReferrJeet Tariq MD (PCP/Family) at 2018 RPT #: [id number] OF REPORTEDEmergency department [id number]:50:00L.[id number] ilable for patient [id number]:18:47 [facility] 2019-08-23 18:50:00 [id number]:50:00 [facility])EMERGENCY PROVIDER REPORTREPORT#:[id number] REPORT STATUS: SignedDATE:08/23/19 TIME:1849 PATIENT: MORELIA MAYFIELD UNIT #: [id number]#: [id number] ROOM/BED:: 68 AGE: 49 SEX: F PCP PHYS: Jeet Manley MDSERVICE AUTHOR: Ly Lawler * ALL edits or amendments must be made on the electronic/computer document * Ly Lawler 08/23/191849:HPI-Dizziness/Weakness GeneralConfirmed Patient YesPatient Type New patient PresentationChief Complaint DizzyHx Obtained From PatientOnset Occurred GradualSymptom Duration Since onset, Waxes and wanesLocation HeadQuality AchingRadiationDoes not radiate. No: Arm R, Arm L, Shoulder, Jaw, Back, Abdomen, Leg L, Leg R. Severity: Onset ModerateSeverity: Current Moderate ContextImmunization Status General All up to date Free Text HPI NotesFree Text HPI [id number] female with past medical history of hypertension presents to the [facility] for 2-day complaint of dizziness and generalized weakness. Denies any cough, shortness of breath, fever or chills. Denies being around anyone with COVID-19 symptoms. Patient states she just does not feel like her regular self. States she has been more active working outside. Denies any other symptoms or complaints. Risk-Dizziness/Weakness Risk StratificationNIH Stroke Scale NIH Stroke Scale Response Value NIHSS Applicable? No 0 Total 0 Review of Systems ROS StatementsAll systems rev neg except as marked.Complete sys rev neg except as marked. Basic Review of SystemsBasic ROS MS: No ext swelling/pain Focused Review of SystemsConstitutionalReports: Malaise. EyesDenies: Blurred R, Blurred L, Blurred bilat, Diplopia, Discharge R, Discharge L,Discharge bilat, Eye pain R, Eye pain L, Eye pain bilat, Photophobia, Redness R,Redness L, Redness bilat, Swelling R, Swelling L, Swelling bilat, Visual loss R,Visual loss L, Visual loss bilat, Yellow R, Yellow L, Yellow bilat. Ears/Nose/ThroatDenies: Ear drainage R, Ear drainage L, Ear drainage bilat, Ear ringing R, Ear ringing L, Ear ringing bilat, Earache R, Earache L, Earache bilat, Hearing loss R, Hearing loss L, Hearing loss bilat, Mouth pain, Nasal congestion, Nose bleeding, Sinus problem, Sore throat, Throat pain, Throat swelling, Tongue pain,Tongue swelling, Toothache, Voice change. RespiratoryDenies: Cough, non-productive, Cough, productive, Dyspnea on exertion, Hemoptysis, Parox nocturnal dyspnea, Pleuritic pain, Shortness of breath, Wheezing. CardiovascularDenies: Chest pain, Dyspnea on exertion, Edema, Orthopnea, Palpitations, Parox nocturnal dyspnea, Syncope. GIDenies: Abdominal pain, Anorexia, Belching, Bloody/tarry stool, Constipation, Diarrhea, Dysphagia, Hematemesis, Hematochezia, Mucousy stool, Melena, Nausea, Rectal pain, Vomiting. FemaleDenies: Dysuria, Flank pain, Hematuria, Incontinence, Nocturia, Pelvic pain, , Urinary frequency, Urinary urgency, Urination decreased, Urination increased, Vaginal bleeding - abnl, Vaginal discharge. HematologicDenies: Adenopathy, Bleeding, Bruising, Petechiae. EndocrineDenies: Cold intolerance, Heat intolerance, Polydipsia, Polyphagia, Polyuria, Weight gain, Weight loss. SkinDenies: Abrasion, Abscess, Burn, Contusion, Diaphoresis, Erythema, Itching, Jaundice, Laceration, Rash, Swelling, Ulceration. NeurologicDenies: Abnormal movement, Bladder dysfunction, Bowel dysfunction, Change LOC, Confusion, Dizziness, Focal weakness, Generalized weakness, Headache, Lightheaded, Numbness, Problem walking, Seizure, Shaking, Slurred speech, Spinning sensation, Syncope, Tingling, Unable to speak, Vision change. PsychiatricDenies: Agitation, Anxiety, Change mental status, Confusion, Delusional, Depression, Hallucinations, auditory, Hallucinations, visual, Homicidal ideation, Hostile, Insomnia, Stress, Suicidal ideation, Unable to control self. Past Medical History - AdultStated Complaint dizzyAllergiesCoded Allergies:No Known Allergies (08/23/19) Review of Nursing Notes Rev avail, and agreePt reports no significant: Family history, Social historySmoking status for patients 13 years old or older: Never Smoker Physical Exam Vital SignsVital SignsFirst Documented: Result Date Time Pulse Ox 98 08/22 1616 B/P 132/72 08/22 1616 B/P Mean 92 08/22 1616 O2 Delivery Room air 08/22 1616 Temp 98.1 08/22 1616 Pulse 86 08/22 1616 Resp 16 08/22 1616 Last Documented: Result Date Time Pulse Ox 98 08/22 1909 B/P 162/90 08/22 1909 B/P Mean 114 08/22 1909 O2 Delivery Room air 08/22 1909 Pulse 85 08/22 1909 Resp 16 08/22 1909 Temp 98.1 08/22 1616 Review of Vital Signs Reviewed Basic Physical ExamBasic PE HEAD: Atraumatic/NC, EYES: PERRL, conj clear, ENT: Membranes moist, NECK: Supple, ABD: Soft/non-tender, EXT: No gross abnormality, SKIN: No rashes, warm/dry, PSYCH: NL thought content Focused PEGeneral/Const General/Const Awake, Alert, No acute distress, Well appearingMS Head Head Atraumatic, NormocephalicEyes Eyes Atraumatic, PERRL, EOMI, No nystagmusEars/Nose/Throat Ears/Nose/Throat Atraumatic, Airway patent, Mucous membranes moist, Pharynx NLMS Neck Neck Atraumatic, Supple, No meningismus, Full range of motionResp/Chest Respiratory/Chest Atraumatic, Breath sounds NL, Breath sounds = bilat, No respiratory distressCardiovascular Cardiovascular Heart rate NL, Regular rhythm, Heart sounds NL, No murmurs, Cap refill not delayed, Peripheral circulation NLAbdomen/GI Abdomen/GI Atraumatic, Soft, Non-tender, McBurney's non-tenderMS Back Back Atraumatic, Inspection NL, Full range of motion, Painless range of motionLymphatic Lymphatic No gross adenopathyMS Lower Extrem Lower Ext/Pelvis/MS Atraumatic, Inspection NL, Full range of motion, No swellingSkin Skin Atraumatic, Color NL, No rash, WarmNeurologic Neurologic Oriented X3, Speech NL, No motor deficits, No sensory deficits Interpretation Diagnostics Lab Results InterpretationResultsLaboratory Tests 08/23/19 1635:[Embedded Image Not Available]Laboratory Tests: 08/22 163 Chemistry Sodium (134 - 147 mmol/L) 138 Potassium (3.4 - 5.0 mmol/L) 3.7 Chloride (100 - 108 mmol/L) 101 Carbon Dioxide (21 - 32 mmol/L) 32 Anion Gap (4.0 - 15.0 GAP calc) 5.0 BUN (7 - 18 MG/DL) 49 H Creatinine (0.6 - 1.0 MG/DL) 1.3 H Glomerular Filtr Rate (>60 estGFR) 46 L Glucose (70 - 110 MG/DL) 188 H Calcium (8.5 - 10.1 MG/DL) 8.7 Troponin I (0.000 - 0.045 NG/ML) < 0.015 NT-Pro-B Natriuret Pep (0 - 100 PG/ML) 368 H Hematology WBC (3.5 - 11.0 K/mm3) 6.1 RBC (4.70 - 6.10 M/mm3) 4.12 L Hgb (10.4 - 14.9 G/DL) 11.8 Hct (31.5 - 44.1 %) 36.4 MCV (84.5 - 98.6 Fl) 88.3 MCH (27.0 - 34.2 pg) 28.6 MCHC (31.5 - 34.0 G/DL) 32.4 RDW (11.5 - 14.5 SD) 12.8 Plt Count (150 - 450 K/mm3) 303 MPV (7.0 - 10.5 fL) 9.70 Neut % (Auto) (40 - 76 %) 66.5 Lymph % (Auto) (20.5 - 51.1 %) 22.1 [place] % (Auto) (1.7 - 9.3 %) 7.9 Eos % (Auto) (0.0 - 6.0 %) 2.5 Baso % (Auto) (0.0 - 2.0 %) 0.5 Neut # (Auto) (1.8 - 7.6 K/mm3) 4.0 Lymph # (Auto) (0.6 - 3.2 K/mm3) 1.3 [place] # (Auto) (0.3 - 1.1 K/mm3) 0.5 Eos # (Auto) (0.0 - 0.4 K/mm3) 0.2 Baso # (Auto) (0.0 - 0.1 K/mm3) 0.0 Abs Immat Gran (auto) (0.00 - 0.03 x10 3/uL) 0.03 Add Manual Diff (CRITERIA DIFF/SCN) NO Nucleated RBC % (0.0 - 1.0 /100WBC%) 0.0 Toxicology Urine Opiates Screen (<2000 NG/ML SCcutoff) NEGATIVE Urine Methadone Screen (<300 NG/ML SCcutoff) NEGATIVE Urine Barbiturates (<200 NG/ML SCcutoff) NEGATIVE Ur Phencyclidine Scrn (<25 NG/ML SCcutoff) NEGATIVE Ur Amphetamines Screen (<1000 NG/ML SCcutoff) NEGATIVE U Benzodiazepines Scrn (<200 NG/ML SCcutoff) NEGATIVE Urine Cocaine Screen (<300 NG/ML SCcutoff) NEGATIVE Urine Cannabinoids (<50 NG/ML SCcutoff) NEGATIVE Recent Impressions:CAT SCAN - CT HEAD/BRAIN W/O CONT 08/22 1630 Report Impression - Status: SIGNED Entered: 08/23/2019 1707 IMPRESSION: 1. No evidence of acute intracranial abnormality.2. Specifically, no evidence of hemorrhage, mass or stroke.Impression By: [email or web address] Heath Cramer M.D. Lab Imaging StatementLaboratory radiographic studies reviewed and considered in the medical decision-making. Point of Care TestingPulse Oximetry Pulse Ox % 98 On: Room air Interpretation Interpreted by me, Pulse oximetry normal Time 1617 ECG #1 InterpretationECG Documented in MUSE YesDate 08/23/19Time 1814Interpreted by and reviewed by me, ED physicianNL ECG Interpretation Normal rate, Normal sinus rhythmRate 70 Re-Evaluation MDM ED CourseMedication(s) OrderedMedication(s) Ordered:Electrolytic, Caloric, And Spike Sig/Benjamin Start time Last Medication Dose Route Stop Time Status Admin Sodium Chloride 1,000 ML X1ED STA 08/22 1626 DC 08/22 IV 08/22 1726 1740 Gastrointestinal Drugs Sig/Benjamin Start time Last Medication Dose Route Stop Time Status Admin Ondansetron HCl 4 MG X1ED STA 08/22 1626 DC 08/22 IV 08/22 1627 1739 Patient Discharge Departure Vital Signs/ConditionVital SignsFirst Documented: Result Date Time Pulse Ox 98 08/22 1617 B/P 132/72 08/22 1617 B/P Mean 92 08/22 1617 O2 Delivery Room air 08/22 1616 Temp 98.1 08/22 161 Pulse 86 08/22 161 Resp 16 08/22 161 Last Documented: Result Date Time Pulse Ox 98 08/22 1909 B/P 162/90 08/22 1909 B/P Mean 114 08/22 1909 O2 Delivery Room air 08/22 1909 Pulse 85 08/22 191 Resp 16 08/22 1909 Temp 98.1 08/22 1617 All vital signs available at the time of this entry have been reviewed. Condition Improved, Stable Clinical ImpressionClinical ImpressionPrimary Impression: DizzinessSecondary Impressions: DehydrationTime of Impression 1850 Disposition DecisionDischarge )( Discharged to Home Yes )( Time 185 )( Date 08/23/19 Discharge/Care PlanReferralsJeet Manley MD (PCP/Family) Domenica Quinn. 08/28/19 1001:HPI-Dizziness/Weakness GeneralInitial Greet Date/Time 08/23/19 1626 Patient Discharge Departure Supervising Physician Note MidLv Saw Pt AloneI have reviewed the PA/TARIFF PUBLISHING AGENT's note and plan of care. I was available for consultation as needed at all times during the patient's visit in the emergency department. I agree with the clinical impression, plan and disposition. at 2018 at 1001 RPT #: [id number] OF REPORTEDEmergency department [id number]:50:00L.[id number] ilable for patient [id number]:01:50 HCAPM
[2023-02-15 15:22] LABS: Absolute Lymphocytes (CBC) 0.5 K/uL (0.7-4.9); Hematocrit 36.4 % (36.0-45.0); Lymphocytes % 12.2 % (15.3-44.8); MCV 89.2 fL (80-100); MPV 8.1 fL (7.6-11.3); Platelets 237 thou/uL (152-406); RBC Red Blood Cell Count 4.08 M/uL (3.86-4.86)
--- NOTE | 2023-02-15 15:49 | RAD REPORT ---
EXAM DESCRIPTION: RADChest Single View02/15/2023 3:00 pm CLINICAL HISTORY: SWELLING COMPARISON: Chest Single View dated 04/01/2021; Chest Single View dated 03/25/2021; Chest Single View dated 03/17/2021; Chest Single View dated 03/14/2021 TECHNIQUE: Portable AP view of the chest. FINDINGS: Progressive right basilar airspace opacity, with worsened pleural effusion, now moderate. Small left pleural effusion with mild left basilar opacities. No pneumothorax. The cardiomediastinal contours are unremarkable. IMPRESSION: Bilateral airspace opacities and pleural effusions worse on the right, may relate to mul tifocal pneumonia or pulmonary edema.
[2023-02-15 15:51] LABS: Albumin 2.1 g/dL (3.4-5.0); Bilirubin Total 0.3 mg/dL (0.2-1.0); Magnesium 2.2 mg/dL (1.6-2.4); Potassium 2.8 mEq/L (3.5-5.1); Protein, Total 6.1 g/dL (6.4-8.2); Troponin High Sensitivity 40.5 pg/mL (<58.9)
--- NOTE | 2023-02-15 16:03 | ER ---
Nurse's Notes [facility] Name: Alyson Mayfield Age: 52 yrs Sex: Female : 1970 Arrival Date: 02/15/2023 Time: 13:56 Bed 20 Private MD: Diagnosis: Unspecified combined systolic (congestive) and diastolic (congestive) heart failure;Acute kidney failure, unspecified;Hypokalemia Presentation: 02/15 14:16 Chief complaint: Patient states: Pt c/o upper abdominal pain, right lower extremity cm10 swelling, and throat pain x 1 month that is getting progressively worse. Coronavirus screen: Vaccine status: Patient reports being unvaccinated. At this time, the client does not indicate any symptoms associated with coronavirus-19. Ebola Screen: Patient negative for fever greater than or equal to 101.5 degrees Fahrenheit, and additional compatible Ebola Virus Disease symptoms Patient denies exposure to infectious person. Patient denies travel to an Ebola-affected area in the 21 days before illness onset. No symptoms or risks identified at this time. Initial Sepsis Screen: Does the patient meet any 2 criteria? No. Patient's initial sepsis screen is negative. Does the patient have a suspected source of infection? No. Patient's initial sepsis screen is negative. Risk Assessment: Do you want to hurt yourself or someone else? Patient reports no desire to harm self or others. Onset of symptoms was January 16, 2023. 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 - Social history:: Smoking status: Patient denies any tobacco usage or history of. Screenin:04 [facility] ED Fall Risk Assessment (Adult) Score/Fall Risk Level 0 - 2 = Low Risk ll1 Oriented to surroundings, Maintained a safe environment, Educated pt \T\ family on fall prevention, incl call for assistance when getting out of bed, Hourly rounding (assess needs \T\ fall precautionary measures) done. Abuse screen: Denies threats or abuse. Nutritional screening: No deficits noted. Tuberculosis screening: No symptoms or risk factors identified. Assessment: 15:02 General: Appears uncomfortable, Behavior is calm, cooperative, appropriate for age. ll1 Pain: Complains of pain in right upper quadrant Quality of pain is described as aching. Neuro: Reports dizziness, weakness. Cardiovascular: Reports fatigue, nausea. GI: Bowel sounds present X 4 quads. Abd is soft and non tender X 4 quads. Reports nausea, vomiting. Musculoskeletal: Circulation, motion, and sensation intact. Capillary refill < 3 seconds, Reports swelling RLE. 16:05 Reassessment: No changes from previously documented assessment. Patient and/or family ll1 updated on plan of care and expected duration. Pain level reassessed. Patient is alert, oriented x 3, equal unlabored respirations, skin warm/dry/pink. 17:00 Reassessment: No changes from previously documented assessment. Patient and/or family ll1 updated on plan of care and expected duration. Pain level reassessed. 18:00 Reassessment: No changes from previously documented assessment. Patient and/or family ll1 updated on plan of care and expected duration. Pain level reassessed. 19:00 Reassessment: No changes from previously documented assessment. Patient and/or family ll1 updated on plan of care and expected duration. Pain level reassessed. 19:15 General: Appears in no apparent distress. comfortable, well groomed, well developed, pf1 Behavior is calm, cooperative, appropriate for age, quiet. Pain: Complains of pain in right upper adominal pain of 8. 19:15 Neuro: No deficits noted. Level of Consciousness is awake, alert, obeys commands, pf1 Oriented to person, place, time, situation. Cardiovascular: Capillary refill < 3 seconds Patient's skin is warm and dry. Respiratory: No deficits noted. Airway is patent Respiratory effort is even, unlabored, Respiratory pattern is regular, symmetrical. GI: Abdomen is flat, non-distended, Bowel sounds present X 4 quads. Abd is soft and non tender X 4 quads. Reports upper abdominal pain. : No deficits noted. No signs and/or symptoms were reported regarding the genitourinary system. EENT: No deficits noted. No signs and/or symptoms were reported regarding the EENT system. Musculoskeletal: Circulation, motion, and sensation intact. Capillary refill < 3 seconds, Swelling present in right leg and left leg. 20:00 Reassessment: Patient appears in no apparent distress at this time. Patient and/or pf1 family updated on plan of care and expected duration. Pain level reassessed. Patient is alert, oriented x 3, equal unlabored respirations, skin warm/dry/pink. 20:10 General: attempted patient report. pf1 20:23 General: patient admit bed to be changed to 230, pending room to be cleaned. pf1 21:01 Reassessment: report attempted at 2100. Floor RN stated room was not clean and would tm6 call back as soon as the room is ready. 22:15 Reassessment: report called to Claudy RIVAS. tm6 Vital Signs: 14:16 BP 167 / 96; Pulse 79; Resp 18; Temp 98.1(O); Pulse Ox 97% on R/A; Weight 48.53 kg; cm10 Height 5 ft. 2 in. ; Pain 8/10; 16:11 BP 170 / 92; Pulse 76; Resp 15; Pulse Ox 97% on R/A; ll1 19:30 BP 161 / 102; Pulse 78; Resp 16; Temp 98.4; Pulse Ox 97% on R/A; Pain 8/10; pf1 20:30 BP 162 / 93; Pulse 80; Resp 16; Pulse Ox 97% on R/A; pf1 14:16 Body Mass Index 19.57 (48.53 kg, 157.48 cm) cm10 14:16 Pain Scale: Adult cm10 19:30 Pain Scale: Adult pf1 ED Course: 13:59 Patient arrived in ED. mg5 14:01 [facility] kb 14:01 Yoni Nogueira DO is Attending Physician. kb 14:18 Triage completed. cm10 14:19 Arm band placed on Patient placed in an exam room, on a stretcher. cm10 14:53 Naveed Drake, ROB is Primary Nurse. ll1 15:02 XRAY Chest (1 view) In Process Unspecified. EDMS 15:04 Patient has correct armband on for positive identification. Bed in low position. ll1 Provided Education on: ER procedures and process. Client placed on continuous cardiac and pulse oximetry monitoring. NIBP monitoring applied. equipment monitor phototypesetting on. 15:07 Initial lab(s) drawn, by me, sent to lab. Inserted saline lock: 22 gauge in right tm3 antecubital area, using aseptic technique. 16:02 Marvin Escobar is Hospitalizing Provider. kb 19:00 No provider procedures requiring assistance completed. Patient admitted, IV remains in ll1 place. Administered Medications: 16:11 Drug: Potassium Chloride PO 40 mEq PO once Route: PO; ll1 19:01 Follow up: Response: No adverse reaction 1 16:11 Drug: Furosemide IVP 20 mg IVP once; give over 2 minutes Route: IVP; Site: right ll1 antecubital; 19:01 Follow up: Response: No adverse reaction; RASS: Alert and Calm (0) 1 Medication: 15:04 VIS not applicable for this client. 1 Outcome: 16:02 Decision to Hospitalize by Provider. kb 19:00 Admitted to ER Hold. Please see [facility] for further documentation. 1 19:00 Condition: stable 19:00 Instructed on the need for admit, 22:29 Admitted to Med/surg accompanied by nurse, room 230, with chart, Report called to tm6 Claudy RIVAS 22:31 Patient left the ED. jb4 Signatures: Dispatcher [employer] EDMS Supriya Cortes, BINDING BENCH WORKER-C BINDING BENCH WORKER-CkDimitrios Kemp tm3 Javier Sim, RN RN jb4 Naveed Drake, ROB RN ll1 Anisha Sharma RN RN pf1 Hilda Aguillon, ROB RN 10 Ashley Samano mg5 Gladis Ramos RN RN tm6
--- NOTE | 2023-02-15 16:03 | EDPHYS ---
Physician Documentation [facility] Name: Alyson Mayfield Age: 52 yrs Sex: Female : 1970 Arrival Date: 02/15/2023 Time: 13:56 Bed 20 Private MD: ED Physician Yoni Nogueira HPI: 02/15 14:18 This 52 yrs old Female presents to ER via Unassigned with complaints of kb Abdominal Pain, Vomiting, Feet Swelling, Leg Swelling. 14:18 Pt is a 52 year old female who presents with upper abd pain, nausea and vomiting for 3 kb weeks, as well as bilateral lower extremity edema for one month. States she has been taking her diuretic, but it isn't helping. Reports she has had this abd pain in the past, but nothing was ever found and then it resolved on its own. . 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 - Social history:: Smoking status: Patient denies any tobacco usage or history of. ROS: 14:19 Constitutional: Negative for fever, chills, and weight loss, kb 14:19 Cardiovascular: Positive for edema, 14:19 Abdomen/GI: Positive for abdominal pain, nausea and vomiting, 14:19 All other systems are negative, Exam: 14:19 Constitutional: This is a well developed, well nourished patient who is awake, alert, kb and in no acute distress. Head/Face: Normocephalic, atraumatic. ENT: Moist Mucous membranes Cardiovascular: Regular rate Respiratory: Respirations even and unlabored. No increased work of breathing. Talking in full sentences Skin: Warm, dry with normal turgor. Normal color. MS/ Extremity: Pulses equal, no cyanosis. Neurovascular intact. Full, normal range of motion. Neuro: Awake and alert, GCS 15, oriented to person, place, time, and situation. Moves all extremities. Normal gait. 14:19 Cardiovascular: Edema: 2+ edema to level of bilateral lower extremities, 14:19 Abdomen/GI: Inspection: abdomen appears normal, Bowel sounds: normal, Palpation: soft, in all quadrants, moderate abdominal tenderness, in the right upper quadrant, Vital Signs: 14:16 BP 167 / 96; Pulse 79; Resp 18; Temp 98.1(O); Pulse Ox 97% on R/A; Weight 48.53 kg; cm10 Height 5 ft. 2 in. ; Pain 8/10; 16:11 BP 170 / 92; Pulse 76; Resp 15; Pulse Ox 97% on R/A; ll1 19:30 BP 161 / 102; Pulse 78; Resp 16; Temp 98.4; Pulse Ox 97% on R/A; Pain 8/10; pf1 20:30 BP 162 / 93; Pulse 80; Resp 16; Pulse Ox 97% on R/A; pf1 14:16 Body Mass Index 19.57 (48.53 kg, 157.48 cm) cm10 14:16 Pain Scale: Adult cm10 19:30 Pain Scale: Adult pf1 MDM: 14:01 Patient medically screened. kb 15:55 Differential diagnosis: gastroesophageal reflux disease, non-specific abd pain, kb pancreatitis, chf exacerbation. Data reviewed: vital signs, nurses notes. Consideration of Admission/Observation Patient was admitted/placed on observation. Escalation of care including admission/observation considered. Management of patient was discussed with the following: Hospitalist: Hospitalist team, pt accepted for admission under Dr Escobar. Care significantly affected by the following chronic conditions: Diabetes, Hypertension, Congestive Heart Failure. Counseling: I had a detailed discussion with the patient and/or guardian regarding the historical points, exam findings, and any diagnostic results supporting the discharge/admit diagnosis, lab results, radiology results, the need for further work-up and treatment in the hospital. 02/15 14:16 Order name: CBC with Diff; Complete Time: 15:33 kb 02/15 14:16 Order name: Magnesium; Complete Time: 15:52 kb 02/15 14:16 Order name: NT PRO-BNP; Complete Time: 15:52 kb 02/15 14:16 Order name: Troponin HS; Complete Time: 15:52 kb 02/15 14:16 Order name: CMP; Complete Time: 15:52 kb 02/15 14:16 Order name: Lipase; Complete Time: 15:52 kb 02/15 17:09 Order name: Basic Metabolic Panel EDMS 02/15 17:09 Order name: Basic Metabolic Panel EDMS 02/15 17:09 Order name: Basic Metabolic Panel EDMS 02/15 17:09 Order name: Basic Metabolic Panel EDMS 02/15 17:09 Order name: Basic Metabolic Panel EDMS 02/15 17:09 Order name: Basic Metabolic Panel EDMS 02/15 17:09 Order name: Basic Metabolic Panel EDMS 02/15 17:09 Order name: Basic Metabolic Panel EDMS 02/15 17:09 Order name: CBC with Automated Diff EDMS 02/15 17:09 Order name: CBC with Automated Diff EDMS 02/15 17:09 Order name: CBC with Automated Diff EDMS 02/15 17:09 Order name: CBC with Automated Diff EDMS 02/15 17:09 Order name: CBC with Automated Diff EDMS 02/15 17:09 Order name: CBC with Automated Diff EDMS 02/15 17:09 Order name: CBC with Automated Diff EDMS 02/15 17:09 Order name: CBC with Automated Diff EDMS 02/15 17:09 Order name: Magnesium EDMS 02/15 17:09 Order name: Magnesium EDMS 02/15 17:09 Order name: Magnesium EDMS 02/15 17:09 Order name: Magnesium EDMS 02/15 17:09 Order name: Magnesium EDMS 02/15 17:09 Order name: Magnesium EDMS 02/15 17:09 Order name: Magnesium EDMS 02/15 17:09 Order name: Magnesium EDMS 02/15 17:09 Order name: Phosphorus EDMS 02/15 17:09 Order name: Phosphorus EDMS 02/15 17:09 Order name: Phosphorus EDMS 02/15 17:09 Order name: Phosphorus EDMS 02/15 17:09 Order name: Phosphorus EDMS 02/15 17:09 Order name: Phosphorus EDMS 02/15 17:09 Order name: Phosphorus EDMS 02/15 17:09 Order name: Phosphorus EDMS 02/15 17:09 Order name: Troponin High Sensitivity EDMS 02/15 17:09 Order name: Troponin High Sensitivity EDMS 02/15 17:09 Order name: Troponin High Sensitivity EDMS 02/15 21:07 Order name: Hepatitis C Virus Ab EDMS 02/15 21:31 Order name: Glucose, Ancillary Testing EDMS 02/15 14:16 Order name: XRAY Chest (1 view); Complete Time: 15:52 kb 02/15 17:12 Order name: CT-ABD EDMS 02/15 20:23 Order name: CT; Complete Time: 20:27 EDMS 02/15 14:16 Order name: EKG; Complete Time: 14:16 kb 02/15 17:09 Order name: CONS Physician Consult EDMS 02/15 14:16 Order name: Cardiac monitoring; Complete Time: 15:02 kb 02/15 14:16 Order name: EKG - Nurse/Tech; Complete Time: 15:02 kb 02/15 14:16 Order name: IV Saline Lock; Complete Time: 14:53 kb 02/15 14:16 Order name: Labs collected and sent; Complete Time: 14:53 kb 02/15 14:16 Order name: O2 Per Protocol; Complete Time: 14:53 kb 02/15 14:16 Order name: O2 Sat Monitoring; Complete Time: 14:53 kb Administered Medications: 16:11 Drug: Potassium Chloride PO 40 mEq PO once Route: PO; ll1 19:01 Follow up: Response: No adverse reaction 1 16:11 Drug: Furosemide IVP 20 mg IVP once; give over 2 minutes Route: IVP; Site: right ll1 antecubital; 19:01 Follow up: Response: No adverse reaction; RASS: Alert and Calm (0) ll1 Disposition: 15:39 I was immediately available on-site in the Emergency Department for consultation in the ms3 care of the patient. Disposition Summary: 02/15/23 16:02 Hospitalization Ordered Notes: Provider: Marvin Escobar Condition: Stable kb Problem: new kb Symptoms: are unchanged kb Bed/Room Type: Standard kb Hospitalization Status: Inpatient Admission(02/15/23 16:36) kb Location: Telemetry/MedSurg (Inpatient)(02/15/23 16:36) kb Room Assignment: 230(02/15/23 21:14) rv1 Diagnosis - Unspecified combined systolic (congestive) and diastolic (congestive) heart failure kb - Acute kidney failure, unspecified kb - Hypokalemia kb Forms: - Medication Reconciliation Form kb - SBAR form kb - Leadership Thank You Letter kb Signatures: Dispatcher [employer] EDMS Supriya Cortes, ELLYN MARKS-Rachel Worrell Lynsay, ROB RN ll1 Yoni Nogueira DO DO ms3 Polina Lynn rv1 Hilda Aguillon RN RN cm10 Corrections: (The following items were deleted from the chart) 16:36 16:02 Observation kb kb 16:36 16:02 Telemetry/MedSurg (observation) kb kb 16:36 16:02 kb kb 18:54 16:36 kb bd 21:14 18:54 217 bd rv1
[2023-02-15] MEDS ORDERED: FUROSEMIDE 20 MG/ 2ML VIAL ONE (16:13)
[2023-02-15] MEDS ORDERED: POTASSIUM CL SA 10 MEQ TAB PO ONE ×4 (16:13→22:40)
--- NOTE | 2023-02-15 17:15 | P.HP ---
Certification for Inpatient Patient admitted to: Observation With expected LOS: >2 Midnights Practitioner: I am a practitioner with admitting privileges, knowledge of patient current condition, hospital course, and medical plan of care. Services: Services provided to patient in accordance with Admission requirements found in Title 42 Section 412.3 of the Code of Federal Regulations Patient History Date of Service: 02/15/23 Reason for admission: fluid volume overload History of Present Illness: Alyson Mayfield is a 52-year-old female with past medical history of CHF, diabetesNIDDM, hypertension, kidney stones, thyroid problems, CAD with 2 stents placed July of 2021 who presents to the ED complaining of abdominal pain and lower extremity edema for 1 month. She reports having nausea with vomiting of green liquid, with inability to keep much down for the last month. Her bilateral lower extremity edema includes her thighs with abdominal edema . Chest x-ray shows bilateral pleural effusions worse on the right may relate to multifocal pneumonia or pulmonary edema. Initial vitals BP 167 / 96; Pulse 79; Resp 18; Temp 98.1(O); Pulse Ox 97% on R/A. Laboratory evaluation H&H , sodium 138, potassium 2.8, BUN/creatinine 57/3.4, GFR 15, serum glucose 300, mag 2.2, BNP 156,427. Alyson be admitted to hospitalist service for further evaluation and treatment, consulted Dr. Hunt for fluid volume overload. Allergies sulfamethoxazole [From Bactrim] Allergy (Verified 07/09/22 16:03) facial swelling trimethoprim [From Bactrim] Allergy (Verified 07/09/22 16:03) facial swelling Tramadol HCl Allergy (Uncoded 07/09/22 16:03) Hives/Rash Home Medications: Aspirin [Aspirin EC 81 MG] 81 mg PO DAILY 03/15/21 Carvedilol [Coreg] 12.5 mg PO BID 03/15/21 Topiramate [Topamax] 25 mg PO BID 03/15/21 Atorvastatin Calcium [Lipitor] 40 mg PO BEDTIME tab 04/06/21 Cholecalciferol (Vitamin D3) [Vitamin D 1000 Iu Tab*] 4,000 unit PO DAILY tab 04/06/21 Clopidogrel Bisulfate [Plavix*] 1 tab PO DAILY 07/19/22 Linagliptin [Tradjenta] 1 tab PO DAILY 07/19/22 Pantoprazole [Protonix Tab*] 1 tab PO DAILY 07/19/22 Sacubitril/Valsartan [Entresto 24 mg-26 mg Tablet] 1 tab PO BID 07/19/22 Thyroid,Pork [Social Worker Palliative Care Thyroid] 60 mg PO DAILY 07/19/22 Torsemide [Demadex*] 1 tab PO BID 07/19/22 - Past Medical/Surgical History Diabetic: Yes -: Diabetes mellitus type II -: Hypothyroid -: Hypertension -: CHF -: Tubal ligation -: Gallbladder Psychosocial/ Personal History: 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, 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 - Family History Father -: Hypertension, Diabetes, Cancer Mother -: Diabetes, Cancer - Social History Alcohol use: Yes CD- Drugs: No Caffeine use: Yes Review of Systems General: Weakness Eyes: Unremarkable ENT: Unremarkable Respiratory: Unremarkable Cardiovascular: Unremarkable Gastrointestinal: Nausea, Vomiting (Green emesis), Abdominal Pain Musculoskeletal: Pedal edema, Other (BLE edema) Integumentary: Unremarkable Neurological: Unremarkable Physical Examination - Physical Exam General: Alert, In no apparent distress, Oriented x3 HEENT: Atraumatic, Normocephalic, PERRLA Neck: Supple, 2+ carotid pulse no bruit Respiratory: Clear to auscultation bilaterally, Normal air movement Cardiovascular: Regular rate/rhythm, Normal S1 S2, Edema (BLE), Systolic murmur Capillary refill: <2 Seconds Gastrointestinal: Normal bowel sounds, Soft and benign, Tenderness (Trace) Musculoskeletal: No clubbing, Swelling (BLE) Integumentary: No rashes, No breakdown, No significant lesion Neurological: Normal speech, Normal strength at 5/5 x4 extr, Normal tone - Studies Laboratory Data (last 24 hrs) 02/15/23 02/15/23 15:00 15:00 WBC 4.50 Hgb 12.1 Hct 36.4 Plt Count 237 Sodium 138 Potassium 2.8 L BUN 57 H Creatinine 3.48 H Glucose 300 H Magnesium 2.2 Total Bilirubin 0.3 AST 8 L ALT 16 Alkaline Phosphatase 166 H Lipase 89 H Assessment and Plan - Plan Assessment and plan Fluid volume overload in patient with CKD CHF exacerbation with prolonged QT's History of CAD with 2 stents placed July Consulted Dr. Hunt BNP 156,427, BUN/creatinine 57/3.4, GFR 15, potassium 2.8, sodium 138, mag 2.2 Chest x-ray shows bilateral pleural effusions worse on the right may relate to multifocal pneumonia or pulmonary edema Continue telemetry Continue home medication, hold Lasix for now QT/QTc 432/479 Hypokalemia K2.8 Replaced in ED Monitor in a.m. lab Nausea/vomiting with abdominal pain for 1 month Prolonged QT's, hold Zofran and Phenergan N.p.o. CT abdomen pelvis without contrast pending DM 2NIDDM Accu-Chek with SSI Serum glucose 300 Hypothyroidism Continue home medication DVT PPx heparin Full code LOS 72 hours Discharge Plan: Home Plan to discharge in: 72 Hours - Advance Directives Does patient have a Living Will: No Does patient have a Durable POA for Healthcare: No Time Spent Managing Pts Care (In Minutes): 55
[2023-02-15] MEDS ORDERED: ALBUMIN HUMAN 25% 12.5 GM, FUROSEMIDE 100 MG in NA CHLORIDE 0.9% 40 ML IV SCH (19:00)
--- NOTE | 2023-02-15 20:22 | RAD REPORT ---
EXAM DESCRIPTION: CT - Abdomen Pelvis Wo Contrast - 02/15/2023 5:36 pm CLINICAL HISTORY: N/V green liquid, abdominal pain for one month COMPARISON: Abdomen Pelvis W Contrast dated 10/03/2020; Abdomen Pelvis W Contrast dated 04/19/2019 ; Abdomen Pelvis W Contrast dated 09/23/2017; Abdomen Pelvis W Contrast dated 08/02/2017 TECHNIQUE: Thin cut axial CT imaging of the abdomen and pelvis was performed without IV contrast. Mu ltiplanar reformats were generated and reviewed. All CT scans are performed using dose optimization technique as appropriate and may include automated exposure control or mA/KV adjustment according to patient size. FINDINGS: Bilateral moderate pleural effusions, larger on the right. The liver, spleen, adrenal glands, and pancreas show no suspicious findings. Gallbladder was surgical ly removed. Symmetric renal contour, without suspicious parenchymal findings within limits of noncontrast techniq ue. No evidence of radiopaque calculi or hydroureteronephrosis. No dilated bowel loops or bowel wall thickening. No free air, or free fluid. Mild fat stranding throu ghout the retroperitoneum and omental. Pronounced intimal calcifications throughout the visualized la rgest medium-sized vessels, can be seen in the setting of diabetes. No suspicious mass or bulky lymph adenopathy. The urinary bladder is without significant finding. No suspicious bony findings. Pronounced body wall edema. IMPRESSION: No acute intra-abdominal process Bilateral pleural effusions larger on the right, diffuse body wall edema, as well as retroperitoneal and omental mild edema, suggestive of fluid overload.
--- NOTE | 2023-02-15 20:49 | CON ---
Date of Consultation: 02/15/2023 Reason For Consultation: Elevated BUN and creatinine, overvolume, fluid management. 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 Upon arrival, found to be overvolume, elevation in BUN and creatinine. Creatinine 3.4, BUN 57 with GFR of 17. For that reason, we have been consulted. Patient denied taking any nonsteroidal. No other change in her medication. Past Medical History: Includes: 1. Diabetes complicated with the neuropathy and nephropathy. 2. Hypertension. 3. CAD, status post PTCA complicated with congestive heart failure. 4. Hypothyroidism. 5. Chronic kidney disease stage 4, baseline creatinine 2.7, GFR of 17 as of August 2022. Allergies: TO SULFA, TRAMADOL. Home Medications: Includes Plavix, pantoprazole, Entresto. Past Surgical History: Includes PTCA, cholecystectomy, tubal ligation. Family History: Positive for diabetes, end-stage renal disease. Social History: Active alcohol. Denied smoking. Denied drugs abuse. Review of Systems: Head and Neck: No red eye. No ear pain. GI: No nausea or vomiting. : No polyuria. No dysuria. No hematuria. CREDIT COLLECTIONS ANALYST: No vaginal discharge. Respiratory: Has shortness of breath. Cardiovascular: Has leg swelling. Has orthopnea. Endocrine: No polydipsia. Skin: No rash. Neuro: Has neuropathy. Musculoskeletal: No joint pain. Physical Examination: Vital Signs: Blood pressure 120/70, pulse of 88. Chest: Crackles, bilateral. Heart: S1, S2. Systolic murmur. Abdomen: Soft, nontender. Extremities: +3 edema. Neurologic: Alert. No focality. Laboratory Data: Hemoglobin 12.1, sodium 138, potassium 2.8, bicarb 29, BUN 57, creatinine 3.4, calcium of 8. BNP . Assessment And Plan: 1. Acute kidney injury on chronic kidney disease advanced secondary to cardiorenal, overvolume with respiratory symptoms. I started the patient on Lasix drip to avoid any low blood pressure and to optimize fluid status. We will send for basic workup and we will follow up. I had long discussion with the patient that if kidney function continued to decline or worsening symptoms or not responding to diuresis, the patient may need to be initiated on renal replacement therapy. The patient on agreement. We will follow up the patient daily. 2. Hypokalemia. We will supplement cautiously given the acute kidney injury and the current kidney function. 3. Hyponatremia, dilutional, will be corrected with diuresis. 4. Hypertension. We will utilize the blood pressure for more diuresis. Hold SABINE inhibitor or ARB. 5. Anemia of chronic kidney disease, stable. 6. Congestive heart failure with exacerbation, as above, we will optimize the fluid status. Discontinue Entresto. 7. Diabetes, as by primary. Thank you, hospitalist, for allowing us to participate in the care of your patient, thank you. Time spent examining the patient [id number], reviewing data, lab and radiology, placing order, discussing the case with the patient, discussing the case with the food service team member including hospitalist and nursing staff more than 75 minutes. NAPOLEON Voice ID: [id number] Report ID: [id number]
[2023-02-15] MEDS: INSULIN REGULAR (HUMAN) 100 UNIT/ML SQ SCH ×2 (21:00)
[2023-02-16] MEDS: HEPARIN 5000 UNIT/ML 1 ML VIAL SQ SCH ×3 (01:53→17:00)
[2023-02-16 02:54] LABS: Absolute Lymphocytes (CBC) 0.6 K/uL (0.7-4.9); Hematocrit 32.9 % (36.0-45.0); Lymphocytes % 15.2 % (15.3-44.8); MPV 8.6 fL (7.6-11.3); Platelets 214 thou/uL (152-406); RBC Red Blood Cell Count 3.74 M/uL (3.86-4.86)
[2023-02-16 03:03] LABS: Magnesium 2.1 mg/dL (1.6-2.4); Phosphorus 4.7 mg/dL (2.5-4.9); Potassium 3.2 mEq/L (3.5-5.1)
[2023-02-16] MEDS ORDERED: POTASSIUM CL SA 10 MEQ TAB PO ONE (08:30)
[2023-02-16] MEDS ORDERED: PANTOPRAZOLE 40MG TABLET PO SCH (08:30)
[2023-02-16] MEDS: INSULIN REGULAR (HUMAN) 100 UNIT/ML SQ SCH ×4 (09:29→20:56)
--- NOTE | 2023-02-16 10:18 | P.PN ---
Date of Service: 02/16/23 Subjective: Awake and eating breakfast, feeling much better, Edema to BLE is much improved. Will continue the lasix gtt with albumin as recommended by Dr. Hunt ROS: 10 point ROS as noted above, otherwise negative Physical Exam General: Alert, In no apparent distress, Oriented x3 HEENT: Atraumatic, Normocephalic, PERRLA Neck: Supple, 2+ carotid pulse no bruit Respiratory: Clear to auscultation bilaterally, Normal air movement Cardiovascular: Regular rate/rhythm, Normal S1 S2, Edema (BLE), Systolic murmur Capillary refill: <2 Seconds Gastrointestinal: Normal bowel sounds, Soft and benign, Tenderness (Trace) Musculoskeletal: No clubbing, 2+ pitting edema to BLE Integumentary: No rashes, No breakdown, No significant lesion Neurological: Normal speech, Normal strength at 5/5 x4 extr, Normal tone Vitals: BP 144/75, HR 79, RR 16, Temp 97.3, O2 saturation 96% RA, stable, continue monitoring Problem list Fluid volume overload in patient with CKD CKD stage 4 CHF exacerbation with prolonged QT's Hypokalemia Nausea/vomiting with abdominal pain for 1 month Assessment and plan Fluid volume overload in patient with CKD CKD stage 4 CHF exacerbation with prolonged QT's History of CAD with 2 stents placed July Consulted Dr[address] Hunt, stopped Entresto, started lasix gtt with albumin InitialBNP 156,427, BUN/creatinine 57/3.4, GFR 15, potassium 2.8, sodium 138, mag 2.2 02/16: BUN/creatinine 58/3.39, GFR 15, K 3.2, NA 139, Mag 2.1, Phos 4.7 Chest x-ray shows bilateral pleural effusions worse on the right may relate to multifocal pneumonia or pulmonary edema Continue telemetry Continue home medication, hold Lasix for now QT/QTc 432/479 Hypokalemia K 3.2, improved Replaced Monitor in a.m. lab Nausea/vomiting with abdominal pain for 1 month Prolonged QT's, hold Zofran and Phenergan renal diet started CT abd/pelvis reports No acute intra-abdominal process Bilateral pleural effusions larger on the right, diffuse body wall edema, as well as retroperitoneal and omental mild edema, suggestive of fluid overload. DM 2 NIDDM Accu-Chek with SSI Serum glucose 274 this AM insulin held while NPO, will continue to monitor Hypothyroidism Continue home medication DVT PPx heparin Full code LOS 72 hours Time Spent Managing Pts Care (In Minutes): 35
[2023-02-16] MEDS ORDERED: ALBUMIN HUMAN 25% 12.5 GM, FUROSEMIDE 100 MG in NA CHLORIDE 0.9% 40 ML IV SCH ×6 (11:00)
[2023-02-16] MEDS: ALBUMIN HUMAN 25% 12.5 GM, FUROSEMIDE 100 MG in NA CHLORIDE 0.9% 40 ML IV SCH ×3 (11:02→21:33)
--- NOTE | 2023-02-16 12:14 | PN ---
Date of Progress Note: 02/16/2023 Subjective: The patient was admitted to the hospital with acute kidney injury on advanced chronic kidney disease, anasarca. The patient was started on Lasix drip. The patient feels better from the respiratory status, but still complaining of abdominal pain on the upper quadrant. Objective: Vital Signs: Blood pressure 166/94, pulse of 83, afebrile. The patient had good urine output. Chest: Faint rales, bilateral. Heart: S1, S2. Systolic murmur. Abdomen: Mild tenderness on the right side. No guarding or rebound. Extremities: +1 edema. Neurologic: Alert. No focality. Laboratory Data: Hemoglobin 11. Sodium 135, potassium 3.2, bicarb 28, BUN 58, creatinine 3.3, GFR of 15, calcium 7.9, albumin magnesium 2.1. CT abdomen and pelvis, no hydronephrosis, bilateral pleural effusion with old edema. Current Medications: The patient is on Lasix drip 20 mg, pantoprazole. Assessment And Plan: 1. Acute kidney injury on advanced chronic kidney disease. I am going to continue the patient on the same diuresis. We will increase the Lasix drip to 20 mg to optimize more fluid status and we will monitor. 2. Hypertension, controlled, optimal. We will utilize blood pressure for more diuresis. 3. Anasarca secondary to cardiorenal. I will follow up on TSH and PC ratio and we will monitor. Continue diuresis. 4. Anemia of chronic kidney disease, stable. No need for transfusion for the time being. time spend exam the patient face to face reviewing data lab and radiology , placing order discussing the case with the patient and nursing staff , discussing with the hospitalist >35 min NAPOLEON Voice ID: [id number] Report ID: [id number] MINDY
--- NOTE | 2023-02-16 13:05 | EKG ---
Test Date: 2023-02-15 Test Time: 14:59:14 Sanitation Supervisor: [place] MEASUREMENT RESULTS: Intervals: Rate: 74 [place]: 152 QRSD: 78 QT: 432 QTc: 479 [place]: P: 66 [place]: 152 QRS: 42 T: 156 INTERPRETIVE STATEMENTS: Normal sinus rhythm Nonspecific T wave abnormality Prolonged QT Abnormal ECG Compared to ECG 03/14/2021 20:20:31 No significant changes Electronically Signed On 02-16-23 13:03:54 GROUND WIRER by Heri Encarnacion
[2023-02-16] MEDS: INSULIN GLARGINE 100 UNIT/ML SQ SCH (14:27)
[2023-02-16 14:37] LABS: Urine Bacteria <20 /HPF (<20); Urine Bilirubin NEGATIVE (Negative); Urine Blood 2+ (Negative); Urine Clarity Turbid (Clear); Urine Color Colorless (Yellow); Urine Glucose 3+ (Negative); Urine Protein 3+ (Negative); Urine Urobilinogen Normal (Normal)
[2023-02-16 14:44] LABS: UR PROTEIN 464.5 mg/dL (<11.9); Urine Protein/Creatinine Ratio 12.22 ratio (<0.15)
[2023-02-17] MEDS: HEPARIN 5000 UNIT/ML 1 ML VIAL SQ SCH ×3 (00:31→16:58)
[2023-02-17 02:49] LABS: Absolute Lymphocytes (CBC) 0.8 K/uL (0.7-4.9); Hematocrit 28.7 % (36.0-45.0); MCV 88.6 fL (80-100); MPV 8.6 fL (7.6-11.3); Platelets 172 thou/uL (152-406); RBC Red Blood Cell Count 3.24 M/uL (3.86-4.86)
[2023-02-17] MEDS: ALBUMIN HUMAN 25% 12.5 GM, FUROSEMIDE 100 MG in NA CHLORIDE 0.9% 40 ML IV SCH ×3 (03:00→11:54)
[2023-02-17 03:10] LABS: Albumin 2.5 g/dL (3.4-5.0); Magnesium 2.1 mg/dL (1.6-2.4); Phosphorus 4.2 mg/dL (2.5-4.9); Potassium 3.6 mEq/L (3.5-5.1); Thyroid Stimulating Hormone 1.37 uIU/mL (0.358-3.740); Uric Acid 7.1 mg/dL (2.6-6.0)
[2023-02-17] MEDS: INSULIN REGULAR (HUMAN) 100 UNIT/ML SQ SCH ×4 (07:30→21:08)
[2023-02-17] MEDS ORDERED: POTASSIUM CL SA 10 MEQ TAB PO ONE (09:00)
[2023-02-17] MEDS: INSULIN GLARGINE 100 UNIT/ML SQ SCH (10:01)
[2023-02-17] MEDS: PANTOPRAZOLE 40MG TABLET PO SCH (10:01)
--- NOTE | 2023-02-17 12:44 | PN ---
Date of Progress Note: 02/17/2023 Subjective: The patient was admitted with acute kidney injury on advanced chronic kidney disease sec ondary to cardiorenal. Patient placed on Lasix drip. Patient had good urine output. Patient had si gnificant response on the weight, not much weight loss. Objective: Vital Signs: Blood pressure 156/93, pulse of 97, afebrile. Chest: Clear to auscultation. Heart: S1, S2. Regular. Abdomen: Soft, nontender. Extremities: +2 edema. Neurologic: Alert. No focality. Laboratory Data: Hemoglobin 9.9, sodium 141, potassium 3.6, bicarb 27, BUN 61, creatinine 3.4, GFR o f 15, phosphorus 4.2, PTH 156. PC ratio 12. Current Medications: The patient on, it is: 1.Lasix drip. 2.Heparin. 3.Insulin. 4.Pantoprazole. Assessment And Plan: 1.Acute kidney injury on advanced chronic kidney disease. Continue to diurese very well. No hyperk alemia. No acidosis. Nonoliguric, still overvolume. I am going to switch the Lasix to 80 mg every 8 hours, discontinue the drip, and we will follow up the patient. I do not see the need to initiate dialysis for the time being. We will see the response for the patient. If continue to improve, we w ill switch to oral in the next 48 hours. 2.Hypertension. We will continue to utilize the blood pressure for more diuresis. I am going to ad d carvedilol to the patient's regimen and we will follow up. 3.Anasarca secondary to renal failure. Continue diuresis as above. 4.Anemia of chronic kidney disease. I am going to go ahead and send for anemia workup and we will f ollow up. I do not see the need for transfusion for the time being. 5.Secondary hyperparathyroidism. No need for vitamin D analog for the time being. NAPOLEON Voice ID: [id number] Report ID: [id number]
[2023-02-17] MEDS: FUROSEMIDE 40 MG/4 ML VIAL IV SCH ×2 (14:16→20:56)
--- NOTE | 2023-02-17 15:43 | P.PN ---
Subjective Date of Service: 02/17/23 Chief Complaint: fluid volume overload Patient states she feels much better today. She denies shortness of breath. She is not orthopneic. Physical Examination - Vital Signs Temperature: 97.7 F Blood Pressure: 170/68 Pulse: 77 Respirations: 16 Pulse Ox (%): 95 Assessment And Plan - Plan Physical Exam General: Alert, In no apparent distress, Oriented x3 Neck: Supple, 2+ carotid pulse no bruit Respiratory: Clear to auscultation bilaterally, Normal air movement Cardiovascular: Regular rate/rhythm, Normal S1 S2, Edema (BLE), Systolic murmur Gastrointestinal: Normal bowel sounds, Soft and benign. Non-tender Musculoskeletal: 2+ pitting edema to BLE Integumentary: No rashes, No breakdown, No significant lesion Neurological: Normal speech, no focal motor deficit. Vitals: BP 144/75, HR 79, RR 16, Temp 97.3, O2 saturation 96% RA, stable, continue monitoring Diagnosis Anasarca secondary to chronic kidney disease CKD stage 4 CHF exacerbation with prolonged QT's Hypokalemia Chronic Nausea/vomiting with abdominal pain Assessment and plan Anasarca secondary to kidney disease and nephrotic syndrome CKD stage 4 Nephrotic syndrome Acute on chronic CHF History of CAD with 2 stents placed July Follows with Dr. Garcia is following. Status post Lasix drip with albumin. Patient has been on Entresto which is held She has nephrotic range proteinuria. Creatinine has been stable with diuresis. Lasix drip transition to IV Lasix 80 mg 3 times daily Continue to monitor renal function. Pulmonary symptoms resolved. No echocardiogram on file. Obtain echocardiogram Continue telemetry Hypokalemia K 3.2, improved Replace prn Monitor BMP Chronic nausea/vomiting with abdominal pain. CT abdomen and pelvis unremarkable except diffuse body wall edema Renal diet as tolerated. Symptoms are chronic and patient is seeing Dr. Zamora for evaluations as outpatient. DM 2 NIDDM Accu-Chek with SSI Continue Lantus insulin 10 units daily. Hypothyroidism Continue home medication DVT PPx heparin Full code
[2023-02-17] MEDS: carvediloL 3.125 MG TAB PO SCH (16:58)
[2023-02-18] MEDS: HEPARIN 5000 UNIT/ML 1 ML VIAL SQ SCH ×3 (00:28→17:28)
[2023-02-18 02:31] LABS: Absolute Lymphocytes (CBC) 0.8 K/uL (0.7-4.9); Hematocrit 29.3 % (36.0-45.0); Lymphocytes % 21.1 % (15.3-44.8); MCV 88.2 fL (80-100); MPV 8.5 fL (7.6-11.3); Platelets 191 thou/uL (152-406); RBC Red Blood Cell Count 3.32 M/uL (3.86-4.86)
[2023-02-18 03:41] LABS: Albumin 2.5 g/dL (3.4-5.0); Ferritin 227.1 ng/mL (8-388); Magnesium 2.1 mg/dL (1.6-2.4); Phosphorus 4.5 mg/dL (2.5-4.9); Potassium 3.9 mEq/L (3.5-5.1)
[2023-02-18] MEDS: carvediloL 3.125 MG TAB PO SCH ×2 (06:08→17:33)
[2023-02-18] MEDS: INSULIN REGULAR (HUMAN) 100 UNIT/ML SQ SCH ×4 (07:30→20:19)
[2023-02-18] MEDS: PANTOPRAZOLE 40MG TABLET PO SCH (08:56)
[2023-02-18] MEDS: FUROSEMIDE 40 MG/4 ML VIAL IV SCH ×2 (08:56→14:00)
[2023-02-18] MEDS: INSULIN GLARGINE 100 UNIT/ML SQ SCH (09:00)
[2023-02-18] MEDS ORDERED: POTASSIUM CL SA 10 MEQ TAB PO ONE (09:00)
--- NOTE | 2023-02-18 16:33 | P.PN ---
Subjective Date of Service: 02/18/23 Chief Complaint: fluid volume overload Patient denies any new complaint. Lower extremity edema significantly improved. She is tolerating diet. Physical Examination - Vital Signs Temperature: 97 F Blood Pressure: 145/86 Pulse: 70 Respirations: 18 Pulse Ox (%): 97 Assessment And Plan - Plan Physical Exam General: Alert, In no apparent distress, Oriented x3 Neck: Supple, 2+ carotid pulse no bruit Respiratory: Clear to auscultation bilaterally, Normal air movement Cardiovascular: Regular rate/rhythm, Normal S1 S2, Edema (BLE), Systolic murmur Gastrointestinal: Normal bowel sounds, Soft and benign. Non-tender Musculoskeletal: 1+ pitting edema to BLE Integumentary: No rashes, No breakdown, No significant lesion Neurological: Normal speech, no focal motor deficit. Vitals: BP 144/75, HR 79, RR 16, Temp 97.3, O2 saturation 96% RA, stable, continue monitoring Diagnosis Anasarca secondary to chronic kidney disease CKD stage 4 CHF exacerbation with prolonged QT's Hypokalemia Chronic Nausea/vomiting with abdominal pain Assessment and plan Anasarca secondary to kidney disease and nephrotic syndrome CKD stage 4 Nephrotic syndrome Acute on chronic CHF History of CAD with [address] Garcia is following. Status post Lasix drip with albumin. Patient has been on Entresto which is held She has nephrotic range proteinuria. Creatinine has been stable with diuresis. Lasix drip transition to IV Lasix 80 mg 3 times daily. IV Lasix transitioned to oral Lasix 80 mg twice daily. Continue to monitor renal function. Pulmonary symptoms resolved. Echocardiogram is pending Hypokalemia Corrected. Replace prn Monitor BMP Chronic nausea/vomiting with abdominal pain. CT abdomen and pelvis unremarkable except diffuse body wall edema Renal diet as tolerated. Symptoms are chronic and patient is seeing Dr. Schulte for evaluations as outp atient. DM 2 NIDDM Accu-Chek with SSI Continue Lantus insulin 10 units daily. Hypothyroidism Continue home medication DVT PPx heparin Full code
--- NOTE | 2023-02-18 16:40 | P.PN ---
Subjective Date of Service: 02/18/23 Chief Complaint: fluid volume overload Subjective: No new changes Physical Examination - Vital Signs Temperature: 97 F Blood Pressure: 145/86 Pulse: 70 Respirations: 18 Pulse Ox (%): 97 - Physical Exam General: Other (appears as her stated age) HEENT: Atraumatic, Normocephalic Neck: Supple Respiratory: Other (symmetric chest expansion) Cardiovascular: No rubs, No murmurs Gastrointestinal: Soft and benign, No guarding Musculoskeletal: No clubbing Integumentary: No warmth Neurological: Normal tone Urinary: Other (no bladder distention) External genitalia: Deferred Rectal: Deferred Assessment And Plan - Plan 1. Acute kidney injury on advanced chronic kidney disease. Continue lasix 80 mg po bid. SCr increased to 3.8. [place] po fluid intake. 2. Hypertension. Continue current BP medication regimen. 3. Anasarca secondary to renal failure. Continue diuresis as above. 4. Anemia of chronic kidney disease. Monitor CBC. 5. Secondary hyperparathyroidism. No need for vitamin D analog for the time being. 6 DM2. Mngt per primary team.
[2023-02-18] MEDS: FUROSEMIDE 40 MG TABLET PO SCH (17:23)
[2023-02-18 18:40] VITALS: BMI 19.2
[2023-02-19] MEDS: HEPARIN 5000 UNIT/ML 1 ML VIAL SQ SCH ×2 (00:05→09:00)
[2023-02-19 04:13] VITALS: O2SAT 96
[2023-02-19] MEDS: carvediloL 3.125 MG TAB PO SCH (05:15)
[2023-02-19 07:12] LABS: Absolute Lymphocytes (CBC) 0.7 K/uL (0.7-4.9); Hematocrit 31.2 % (36.0-45.0); Lymphocytes % 18.9 % (15.3-44.8); MCV 88.3 fL (80-100); MPV 8.6 fL (7.6-11.3); Platelets 219 thou/uL (152-406); RBC Red Blood Cell Count 3.53 M/uL (3.86-4.86)
[2023-02-19 07:29] LABS: Albumin 2.5 g/dL (3.4-5.0); Magnesium 2.1 mg/dL (1.6-2.4); Phosphorus 4.3 mg/dL (2.5-4.9)
[2023-02-19] MEDS: INSULIN REGULAR (HUMAN) 100 UNIT/ML SQ SCH (07:30)
[2023-02-19 08:41] VITALS: BP 145/86; TEMP 97
[2023-02-19] MEDS: FUROSEMIDE 40 MG TABLET PO SCH (10:51)
[2023-02-19] MEDS: PANTOPRAZOLE 40MG TABLET PO SCH (10:51)
[2023-02-19] MEDS: INSULIN GLARGINE 100 UNIT/ML SQ SCH (10:52)
--- NOTE | 2023-02-19 15:55 | P.DS ---
Admission Date: 02/16/23 Discharge Date: 02/19/23 Disposition: ROUTINE DISCHARGE Discharge Condition: FAIR Reason for Admission: fluid volume overload Consultations: Nephrology-Dr. Hunt. Brief History of Present Illness: Alyson Mayfield is a 52-year-old female with past medical history of CHF, diabetesNIDDM, hypertension, kidney stones, thyroid problems, CAD with 2 stents placed July of 2021 who presented to the ED complaining of abdominal pain and lower extremity edema for 1 month. She also reported intermittent nausea with vomiting of several months duration. Chest x-ray done in the emergency department showed bilateral pleural effusions, worse on the right may relate to multifocal pneumonia or pulmonary edema. Laboratory evaluation H&H 12/36, sodium 138, potassium 2.8, BUN/creatinine 57/3.4, GFR 15, serum glucose 300, mag 2.2, BNP 156,427. Patient admitted to the medical floor for further management of anasarca. Hospital Course: Patient was admitted to the medical floor and the following medical problems addressed: Anasarca secondary to kidney disease and nephrotic syndrome CKD stage 4 Nephrotic syndrome Acute on chronic CHF History of CAD with 2 stents placed July Seen by nephrology Dr. Garcia. She was treated with Lasix drip with albumin. Patient has been on Entresto which was discontinued due to elevated creatinine. She has nephrotic range proteinuria. Creatinine has been stable with diuresis. Lasix drip transition to IV Lasix 80 mg 3 times daily. IV Lasix transitioned to oral Lasix 80 mg twice daily. Patient pulmonary symptoms involved. Anasarca almost resolved. Continue to monitor renal function. Echocardiogram done. Patient deemed stable for discharge per nephrology recommendation. Hypokalemia Corrected. Chronic nausea/vomiting with abdominal pain. CT abdomen and pelvis unremarkable except diffuse body wall edema Renal diet as tolerated. Symptoms are chronic and patient is seeing Dr. Schulte for evaluations as outpatient. DM 2 NIDDM Managed with insulin sliding scale and low-dose Lantus insulin as inpatient. Patient has been experiencing intermittent nausea and vomiting and diarrhea for the past several months and sometimes does not tolerate p.o. intake. She has high risk for hypoglycemia with long-acting insulin given the intermittent nausea and vomiting and poor oral intake. Will therefore order insulin sliding scale for glucose management on discharge. Hypothyroidism Continued home medication Vital Signs/Physical Exam: Temp Pulse Resp BP Pulse Ox 97 F 70 18 145/86 H 97 02/19/23 08:40 02/19/23 08:40 02/19/23 08:40 02/19/23 08:40 02/19/23 08:40 General: Alert, In no apparent distress, Oriented x3 HEENT: Mucous membr. moist/pink Neck: Supple, JVD not distended Respiratory: Clear to auscultation bilaterally, Normal air movement, Crackles/rales Cardiovascular: No edema, Regular rate/rhythm, Normal S1 S2, Edema (Trace Bilateral leg edema) Gastrointestinal: Normal bowel sounds, Soft and benign, Non-distended, No tenderness Musculoskeletal: No swelling, No tenderness Integumentary: No rashes, No cyanosis Neurological: Normal strength at 5/5 x4 extr Laboratory Data at Discharge: WBC 3.80 thou/uL (4.3-10.9) L 02/19/23 06:40 Hgb 10.5 g/dL (12.0-15.0) L 02/19/23 06:40 Hct 31.2 % (36.0-45.0) L 02/19/23 06:40 Plt Count 219 thou/uL (152-406) 02/19/23 06:40 Sodium 137 mEq/L (136-145) 02/19/23 06:40 Potassium 4.0 mEq/L (3.5-5.1) 02/19/23 06:40 BUN 67 mg/dL (7-18) H 02/19/23 06:40 Creatinine 3.87 mg/dL (0.55-1.02) H 02/19/23 06:40 Glucose 241 mg/dL (74-106) H 02/19/23 06:40 Uric Acid 7.1 mg/dL (2.6-6.0) H 02/17/23 01:53 Phosphorus 4.3 mg/dL (2.5-4.9) 02/19/23 06:40 Magnesium 2.1 mg/dL (1.6-2.4) 02/19/23 06:40 Total Bilirubin 0.3 mg/dL (0.2-1.0) 02/15/23 15:00 AST 8 U/L (15-37) L 02/15/23 15:00 ALT 16 U/L (13-56) 02/15/23 15:00 Alkaline Phosphatase 166 U/L (45-117) H 02/15/23 15:00 Lipase 89 U/L (13-75) H 02/15/23 15:00 Home Medications: Aspirin [Aspirin EC 81 MG] 81 mg PO DAILY 03/15/21 Carvedilol [Coreg] 12.5 mg PO BID 03/15/21 Topiramate [Topamax] 25 mg PO BID 03/15/21 Atorvastatin Calcium [Lipitor] 40 mg PO BEDTIME tab 04/06/21 Cholecalciferol (Vitamin D3) [Vitamin D 1000 Iu Tab*] 4,000 unit PO DAILY tab 04/06/21 Clopidogrel Bisulfate [Plavix*] 1 tab PO DAILY 07/19/22 Linagliptin [Tradjenta] 1 tab PO DAILY 07/19/22 Pantoprazole [Protonix Tab*] 1 tab PO DAILY 07/19/22 Thyroid,Pork [[employer] Thyroid] 60 mg PO DAILY 07/19/22 Alcohol Antiseptic Pads [Alcohol Swabs] 1 each TP TID #1 box 02/19/23 Blood Sugar Diagnostic [Blood Glucose Test Strip] 1 each MC TID #90 strip 02/19/23 Blood-Glucose Meter [Blood Glucose Monitoring] 1 each MC TID #1 kit 02/19/23 Furosemide [Lasix] 80 mg PO BID #60 tab 02/19/23 Insulin -Regular Human [Novolin -R*] See Protocol SQ ACHS #15 ml 02/19/23 Lancets/Blood Glucose Strips [Pogo Automatic Test Cartridge] 1 each MC TID #1 box 02/19/23 Syringe-Needle,Insulin,0.5 ml [Easy Touch Insulin Syringe] 1 each MC TID #100 ea 02/19/23 New Medications: Alcohol Antiseptic Pads [Alcohol Swabs] 1 each TP TID #1 box Blood-Glucose Meter [Blood Glucose Monitoring] 1 each MC TID #1 kit Blood Sugar Diagnostic [Blood Glucose Test Strip] 1 each MC TID #90 strip Syringe-Needle,Insulin,0.5 ml [Easy Touch Insulin Syringe] 1 each MC TID #100 ea Furosemide [Lasix] 80 mg PO BID #60 tab Insulin -Regular Human [Novolin -R*] See Protocol SQ ACHS #15 ml Lancets/Blood Glucose Strips [Pogo Automatic Test Cartridge] 1 each MC TID #1 box Diet: Renal (ADA diet) Activity: Ad sarita Followup: Susie Hunt MD [ACTIVE - CAN ADMIT] - 1-2 Weeks Jeet Manley MD [Primary Care Provider] - 1 Week Time spent managing pt's care (in minutes): 37
--- NOTE | 2023-02-20 02:56 | PN ---
Date of Progress Note: 02/19/2023 Chief Complaint: Acute on chronic kidney injury. Subjective: The patient has underlying advanced chronic kidney disease. She developed acute on superintendent meters lopez nonoliguric kidney injury. Serum creatinine level is plateauing. The patient is on Lasix for vo lume control. She has cardiorenal syndrome and volume overload. Anasarca has been treated with IV d iuretic and low-sodium diet. The patient is responding to diuretic. Review of Systems: The patient denies chest pain, palpitation. Denies PND, orthopnea. Physical Examination: Lungs: Few rhonchi. Crackles at bases. Heart: S1, S2. No pericardial friction rub. Abdomen: Soft, benign, nontender. Extremities: Slight edema in both ankles. Impression And Plan: 1.Acute on chronic kidney injury. The patient has advanced chronic kidney disease. Avoid nephrotox ic medication. Continue Lasix tablets 80 mg twice a day. Serum creatinine level is plateauing. The patient will follow up with pay station collector within next 7 days. 2.Hypertension. Continue blood pressure medication. 3.Anasarca secondary to kidney failure. Continue diuretics. 4.Anemia due to chronic kidney disease. Monitor CBC. 5.Secondary hyperparathyroidism. Monitor phosphorus, intact PTH, 25-hydroxy vitamin D level. Glenna nue vitamin D replacement. 6.Diabetes mellitus. Medication for diabetes mellitus per Primary team. Monitor proteinuria. The patient will follow up with outpatient Nephrology Clinic. TRUNG/WOOD Voice ID: [id number] Report ID: [id number]
--- NOTE | 2023-02-21 07:10 | ECHO ---
HEIGHT: 5 ft 2 in WEIGHT: 118 lb 6.4 oz DATE OF STUDY: 02/18/[address]: Marvin Escobar MD 2-DIMENSIONAL: YES M.MODE: YES DOPPLER: YES COLOR FLOW: YES TDS: PORTABLE: YES DEFINITY: BUBBLE STUDY: DIAGNOSIS: PULMONARY EDEMA CARDIAC HISTORY: CATHERIZATION: SURGERY: PROSTHETIC VALVE: PACEMAKER: MEASUREMENTS (cm) DIASTOLIC (NORMALS) SYSTOLIC (NORMALS) IVSd 1.1 (0.6-1.2) LA Diam 4.3 (1.9-4.0) LVEF 40% LVIDd 4.3 (3.5-5.7) LVIDs 3.5 (2.0-3.5) %FS 18% LVPWd 1.1 (0.6-1.2) Ao Diam 2.2 (2.0-3.7) 2 DIMENSIONAL ASSESSMENT: RIGHT ATRIUM: NORMAL LEFT ATRIUM: ENLARGED RIGHT VENTRICLE: NORMAL LEFT VENTRICLE: LEFT VENTRICULAR HYPERTROPHY TRICUSPID VALVE: MODERATE TRICUSPID REGURGITATION MITRAL VALVE: MODERATE MITRAL REGURGITATION PULMONIC VALVE: MILD PULMONIC INSUFFICIENCY AORTIC VALVE: NORMAL PERICARDIAL EFFUSION: TRACE AORTIC ROOT: NORMAL LEFT VENTRICULAR WALL MOTION: MILD TO MODERATE GLOBAL HYPOKINESIS DOPPLER/COLOR FLOW: SEE BELOW COMMENTS: 1. MILD TO MODERATE LEFT VENTRICULAR SYSTOLIC DYSFUNCTION WITH EJECTION FRACTION 40$ WITH GLOBAL HYPOKINESIS 2. SEVERE DIASTOLIC DYSFUNCTION 3. MODERATE MITRAL REGURGITATION 4. MODERATE TRICUSPID REGURGITATION 5. LEFT ATRIAL ENLARGEMENT 6. MILD CONCENTRIC LEFT VENTRICULAR HYPERTROPHY 7. SEVERE PULMONARY HYPERTENSION WITH RIGHT VENTRICULAR SYSTOLIC PRESSURE GREATER THAN 60 mmHg 8. TRACE PERICARDICAL EFFUSION AND LARGE PLEURAL EFFUSION TECHNOLOGIST: MARIA INES HARMON
== END 2023-02-19 16:30 | disposition home or self-care (01) | DRG 291 ==
LOC: ER 13:56 → ERHOLD 17:22 → 2ND 19:22 → OBSVTOIN 02-16 19:53
PROVIDERS: ADMIT Internal Medicine; ATTEND Internal Medicine
DX: I13.0 Hypertensive heart and chronic kidney disease with heart failure and stage 1 through stage 4 chronic kidney disease, or unspecified chronic kidney disease (principal); I50.43 Acute on chronic combined systolic (congestive) and diastolic (congestive) heart failure; E87.1 Hypo-osmolality and hyponatremia; N17.9 Acute kidney failure, unspecified; N18.4 Chronic kidney disease, stage 4 (severe); N25.81 Secondary hyperparathyroidism of renal origin; E11.22 Type 2 diabetes mellitus with diabetic chronic kidney disease; E11.40 Type 2 diabetes mellitus with diabetic neuropathy, unspecified; D63.1 Anemia in chronic kidney disease; E03.9 Hypothyroidism, unspecified; E87.6 Hypokalemia; I25.10 Atherosclerotic heart disease of native coronary artery without angina pectoris; R94.31 Abnormal electrocardiogram [ECG] [EKG]; Z88.1 Allergy status to other antibiotic agents; Z95.5 Presence of coronary angioplasty implant and graft; Z88.5 Allergy status to narcotic agent; Z90.49 Acquired absence of other specified parts of digestive tract; Z79.82 Long term (current) use of aspirin; Z98.51 Tubal ligation status; Z79.02 Long term (current) use of antithrombotics/antiplatelets; Z79.899 Other long term (current) drug therapy
CPT/HCPCS: 36415; 71045; 74176; 80048; 80053; 80069; 81001; 82570; 82607; 82728; 82947; 83540; 83690; 83735; 83880; 83970; 84100; 84156; 84443; 84466; 84484; 84550; 85025; 85044; 86803; 93005; 93306; 96374; 99285; G0378; J1644; J1815; J1940; P9047

== ENCOUNTER 2023-02-25 22:32 | Inpatient (IN) | payer BC, SELFPAY ==
--- OUTSIDE RECORDS SUMMARY | 2023-02-25 22:39 | XMS REPORT | Continuity of Care Document ---
Author Name Unknown Address [address] [facility] [address] [place] [address] [facility] Address [address] [facility] [address] [place] [address] Care Team Providers Care Emergency Crew Supervisor Name Role Phone Jeet Manley MD Primary Care Physician [phone] CHALO CHRISTIANSON Attending Clinician Unavailable [id number] Attending Clinician Unavailable GAYATRI DEE Attending Clinician Nate galeas [email or web address] Attending Clinician ENA Hidalgo Attending Clinician Unavailable Faith Michel MD Attending Clinician [phone] FAITH MICHEL Attending Clinician Ayde Hainesb, 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 Attending Clinician Marciano Guallpa MD Attending Clinician [phone] MARCIANO ELLIOTT Attending Clinician Unavailabl e Doctor Unassigned, Seba Dalkai Attending Clinician U francisco Haynes MD, Grzegorz Attending Clinician [phone] GRZEGORZ HAYNES Attending Clinician Unavailabl e RADIOLOGY Attending Clinician Unavailable KANE GARCIA Attending Clinician Unava ilODESSA Ayala Attending Clinician Unavailable BENSON CASTRO Attending Clinician Unavail able BENSON CASTRO Attending Clinician Unavail able Benson Castro MD Attending Clinician [phone] Radiology Attending Clinician Unavailable CHALO CHRISTIANSON Attending Clinician Unavailable ANG ANNE Attending Clinician Unav Stephen Otoole Rahil Attending Clinician Unavail able Danya Singh MD Attending Clinician [phone] DANYA SINGH Attending Clinician Unavailable Teddy MONROE, Sarah Attending Clinician Unava ilable Gayatri Dee MD Attending Clinician + [phone] [place] Test Attending Clinician Unavailable Mali Carter Attending Clinician [phone] EMMANUELLE SCHULTE Attending Clinician Unavaila Latricia Childs DO Attending Clinician [phone] Latasha Fernandez MD Attending Clinician + [phone] LATASHA FERNANDEZ Attending Clinician Unavaila LATASHA Gupta Attending Clinician Unavaila irina Johnson Attending Clinician Unavailable [facility] Sleep Lab Attending Clinician Unavaila Jose Raul Dee DO Attending Clinician [phone] , [facility] Attending Clinician Unavailable JAN VALENTINE Attending Clinician Unavailable Jan Valentine MD Attending Clinician [phone] Jcarlos RIVAS, Yazmin Najera Attending Clinician [phone] SUSANNAH WANG Attending Clinician Unavailable Sb Escobar MD Attending Clinician [phone] Susannah Wang MD Attending Clinician [phone] SB ESCOBAR Attending Clinician Unavailable SIVA ALVAERZ Attending Clinician Unavailable Siva Dia Attending Clinician [phone] Admitting Clinician Unavailable GAYATRI DEE Admitting Clinician Siennachriss adal [email or web address]_S Admitting Clinician UnavailENA Aden Admitting Clinician Unavailable FAITH MICHEL Admitting Clinician UnavailJEET Hernandez Admitting Clinician Unavailab Stephen Dai Rahil Admitting Clinician Unavail able Gayatri Dee MD Admitting Clinician [phone] BENSON CASTRO Admitting Clinician Unavail able Alex Admitting Clinician Unavailable SUSANNAH WANG Admitting Clinician Unavailable Susannah Wang MD Admitting Clinician [phone] JUDE EUCEDA Admitting Clinician Unavaila irina Payers Payer Name Policy Type Policy Number Effective Date Expirati on Date Source [place] OUT OF [place] [id number] 2007 00:00:00 [place]BS [place] [id number] [place] [facility] - OUT OF STATE [id number] 2018 00:00:00 [place] ([place] [id number] 2019 00:00:00 2021 00:00:00 Problems Condition Name Condition Details Condition Category Status Onset Date Resolution Date Last Treatment Date Treating Clinician Comments Source Nonrheumat ic mitral valve regurgitat ion Nonrheumat ic mitral valve regurgitat ion Disease Active 09-18 00:00: 00 [facility] Coronary artery disease involving [place] coronary artery without angina pectoris Coronary artery disease involving m[place] coronary artery without angina pectoris Disease Active 09-18 00:00: 00 [facility] Presence of drug-eluti ng stent in anterior descending branch of left coronary artery Presence of drug-eluti ng stent in anterior descending branch of left coronary artery Disease Active 09-18 00:00: 00 [facility] Chronic systolic heart failure Chronic systolic heart failure Disease Active 09-18 00:00: 00 [facility] Congestive heart failure, NYHA class 3 and ACC/AHA stage C Congestive heart failure, NYHA class 3 and ACC/AHA stage C Disease Active 09-18 00:00: 00 [facility] GADIEL (obstructi ve sleep apnea) GADIEL (obstructi ve sleep apnea) Disease Active 11-25 00:00: 00 [facility] Obesity Obesity Problem Active 07-10 00:00: [address] [facility] Irritable bowel syndrome Irritable Bowel Syndrome Problem Active 06-26 00:00: [address] [facility] Low blood pressure Low Blood Pressure Problem Active 08-22 00:00: [address] [facility] Dizziness and giddiness Dizziness and Giddiness Problem Active 08-22 00:00: [address] [facility] Essential hypertensi on Essential Hypertensi on Problem Active 07-25 00:00: [address] [facility] Gastropare sis syndrome Gastropare sis Syndrome Problem Active 07-25 00:00: [address] [facility] Proteinuri a Proteinuri a Problem Active 07-25 00:00: [address] [facility] Hypertensi ve disorder Hypertensi ve Disorder Problem Active 07-25 00:00: [address] [facility] Localized edema Localized Edema Problem Active 07-25 00:00: [address] [facility] Hypoxia Hypoxia Disease Active 06-03 00:00: 00 [facility] Acute diastolic congestive heart failure Acute diastolic congestive heart failure Disease Active 06-03 00:00: 00 [facility] Pneumonia due to infectious organism Pneumonia due to infectious organism Disease Active 06-03 00:00: 00 [facility] HTN (hypertens ion) HTN (hypertens ion) Disease Active 06-03 00:00: 00 [facility] Urinary tract infectious disease Urinary Tract Infectious Disease Problem Active 2018-03 0-02 00:00: [address] [facility] Hyperlipid emia Hyperlipid emia Problem Active 10-15 00:00: [address] [facility] Elevated levels of transamina se & lactic acid dehydrogen ase Elevated Levels of Transamina se & Lactic Acid Dehydrogen ase Problem Active 10-15 00:00: [address] [facility] Finding of urine substance level Finding of Urine Substance Level Problem Active 10-15 00:00: [address] 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 Due to Type 2 Diabetes Mellitus Problem Active 09-12 00:00: 00 [facility] Family history of diabetes mellitus Family History of Diabetes Mellitus Problem Active 09-12 00:00: 00 [facility] Screening for disorder Screening for Disorder Problem Active 09-12 00:00: 00 [facility] Tinea pedis Tinea Pedis Problem Active 09-12 00:00: 00 [facility] Type 2 diabetes mellitus Type 2 diabetes mellitus Disease Active 07-17 00:00: 00 [facility] Hyperlipid emia Hyperlipid emia Disease Active 07-17 00:00: 00 [facility] Nephrolith iasis Nephrolith iasis Disease Active 07-17 00:00: 00 [facility] Allergies, Adverse Reactions, Alerts Allergy Name Allergy Type Status Severity Reaction(s) Onset Date Inactive Date Treating Clinician Comments Source Sulfamet hoxazole -Trimeth oprim Allergy to substanc e Active 09-18 00:00: 00 [facility] AMLODIPI NE DRUG INGREDI Active Swelling 2020-03 00:00: 00 [facility] Amlodipi ne Propensi ty to adverse reaction s Active Swelling 2020-03- 00:00: 00 [facility] Sulfamet hoxazole Propensi ty to adverse reaction s Active Swelling 11-11 00:00: 00 [facility] Trimetho prim Propensi ty to adverse reaction s Active Swelling 11-11 00:00: 00 [facility] TRIMETHO PRIM DRUG INGREDI Active Swelling 11-11 00:00: 00 [facility] SULFAMET HOXAZOLE DRUG INGREDI Active Low Swelling 11-11 00:00: 00 [facility] Lisinopr il Propensi ty to adverse reaction s Active Cough - 00:00: 00 [facility] LISINOPR IL DRUG INGREDI Active COUGH 07-14 00:00: 00 [facility] Tramadol Propensi ty to adverse reaction s Active Itching 08-10 00:00: 00 [facility] TRAMADOL DRUG INGREDI Active ITCHING 08-10 00:00: 00 [facility] Tramadol Allergy to substanc e Active Itching 08-10 00:00: 00 Other reaction( s): Hives/[facility] Metformi n Allergy to substanc e Active Diarrhea [facility] Ramipril Allergy to substanc e Active Rash [facility] Social History Social Habit Start Date Stop Date Quantity Comments Source History of tobacco use Current smoker [facility] Exposure to SARS-CoV-2 (event) 2022-05-04 00:00:00 2022-05-14 16:23:00 Not sure [facility] History of Social function 2020-11-12 00:00:00 2020-11-12 00:00:00 [facility] Tobacco Comment 2020-11-11 00:00:00 2020-11-11 00:00:00 quit 30 yrs ago [facility] Alcohol intake 2020-06-13 00:00:00 2020-06-13 00:00:00 .48 /d [facility] Tobacco use and exposure 2010-07-10 00:00:00 2010-07-10 00:00:00 Smokeless tobacco non-user [facility] Sex Assigned At 1970 00:00:00 1970 00:00:00 [facility] Smoking Status Start Date Stop Date Source Tobacco smoking consumption unknown [facility] Ex-smoker 2020-11-11 00:00:00 2020-11-11 00:00:00 [facility] Never smoked tobacco [facility] Medications Ordered Medication Name Filled Medication Name Start Date Stop Date Current Medication? Ordering Clinician Indication Dosage Frequency Signature (SIG) Comments Components Source barium sulfate (LIQUID E-Z PAQUE) 60 % (w/v) oral suspension 340 g 09-03 14:00: 00 09-03 17:31 :00 No [id number] 340g 340 g, Oral, ONCE, 1 dose, On 6/30/23 at 0900, Routine [facility] iopamidol (ISOVUE 370-500 mL) injection 60 mL 04-02 20:35: 00 04-02 20:46 :00 No [id number] 60mL 60 mL, Intravenou s, ONCE, 1 dose, On Tue04/02/22 at 1445, Routine [facility] topiramate 100 mg tablet 2021-03 00:00: 00 Yes [id number] 100mg Take 1 tablet by mouth in the morning and 1 tablet in the evening. [facility] topiramate 100 mg tablet 2021-03 00:00: 00 Yes [id number] 100mg Take 1 tablet by mouth in the morning and 1 tablet in the evening. [facility] topiramate 100 mg tablet 2021-03 00:00: 00 Yes [id number] 100mg Take 1 tablet by mouth in the morning and 1 tablet in the evening. [facility] topiramate 100 mg tablet 2021-03 00:00: 00 Yes [id number] 100mg Take 1 tablet by mouth in the morning and 1 tablet in the evening. [facility] topiramate 100 mg tablet 2021-03 00:00: 00 Yes [id number] 100mg Take 1 tablet by mouth in the morning and 1 tablet in the evening. [facility] topiramate 100 mg tablet 2021-03 00:00: 00 Yes [id number] 100mg Take 1 tablet by mouth in the morning and 1 tablet in the evening. [facility] topiramate 100 mg tablet 2021-03 00:00: 00 Yes [id number] 100mg Take 1 tablet by mouth in the morning and 1 tablet in the evening. [facility] topiramate 100 mg tablet 2021-03 00:00: 00 Yes [id number] 100mg Take 1 tablet by mouth in the morning and 1 tablet in the evening. [facility] topiramate 100 mg tablet 2021-03 00:00: 00 Yes [id number] 100mg Take 1 tablet by mouth in the morning and 1 tablet in the evening. [facility] topiramate 100 mg tablet 2021-03 2-20 00:00: 00 Yes [id number] 100mg Take 1 tablet by mouth in the morning and 1 tablet in the evening. [facility] topiramate 100 mg tablet 2021-03 2- 00:00: 00 Yes [id number] 100mg Take 1 tablet by mouth in the morning and 1 tablet in the evening. [facility] topiramate 100 mg tablet 2021-03 2 00:00: 00 Yes [id number] 100mg Take 1 tablet by mouth in the morning and 1 tablet in the evening. [facility] topiramate 100 mg tablet 2021-03 00:00: 00 Yes [id number] 100mg Take 1 tablet by mouth in the morning and 1 tablet in the evening. [facility] topiramate 100 mg tablet 2021-03 00:00: 00 Yes [id number] 100mg Take 1 tablet by mouth in the morning and 1 tablet in the evening. [facility] SUMAtriptan 50 mg tablet 2021-03 00:00: 00 02-24 05:59 :00 No [id number] 50mg Take 1 tablet by mouth once now for 1 dose. [facility] SUMAtriptan 50 mg tablet 2021-03 00:00: 00 02-24 05:59 :00 No [id number] 50mg Take 1 tablet by mouth once now for 1 dose. [facility] topiramate 50 mg tablet 2021-03 00:00: 00 Yes [id number] 50mg Take 1 tablet by mouth in the morning and 1 tablet in the evening. [facility] topiramate 50 mg tablet 2021-03 00:00: 00 Yes [id number] 50mg Take 1 tablet by mouth in the morning and 1 tablet in the evening. [facility] topiramate 50 mg tablet 2021-03 00:00: 00 02-23 00:00 :00 No [id number] 50mg Take 1 tablet by mouth in the morning and 1 tablet in the evening. [facility] topiramate 50 mg tablet 2021-03-14 00:00: 00 02-23 00:00 :00 No [id number] 50mg Take 1 tablet by mouth in the morning and 1 tablet in the evening. [facility] cholecalcif kassidy (Vitamin D-3) 25 MCG (1000 UT) capsule 09-18 13:29: 29 Yes Take by mouth. [facility] linaGLIPtin (Tradjenta) 5 MG tablet 09-18 13:29: 29 Yes Tradjenta 5 mg tablet TAKE 1 TABLET BY MOUTH ONCE DAILY IN THE MORNING [facility] Entresto 24-26 MG tablet 09-16 00:00: 00 Yes Q.5D Take by mouth 2 (two) times a day. [facility] torsemide (Demadex) 20 MG tablet 09-06 00:00: 00 Yes 80mg QD Take 80 mg by mouth 1 (one) time each day. 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 on an empty stomach [facility] carvedilol (Coreg) 6.25 MG tablet 07-24 00:00: 00 Yes 6.25mg Q.5D Take 6.25 mg by mouth in the morning and 6.25 mg before bedtime. [facility] topiramate (Topamax) 25 MG tablet 07-24 00:00: 00 Yes 25mg Take 25 mg by mouth if needed. [facility] atorvastati n (Lipitor) 40 MG tablet 07-07 00:00: 00 Yes 40mg Take 40 mg by mouth every night. [facility] EQ Aspirin Adult Low Dose 81 MG EC tablet 07-07 00:00: 00 Yes 81mg QD Take 81 mg by mouth 1 (one) time each day. [facility] clopidogrel (Plavix) 75 MG tablet 07-07 00:00: 00 Yes 75mg QD Take 75 mg by mouth 1 (one) time each day. [facility] Farxiga 10 MG 2-19 00:00: 00 Yes 10mg QD Take 10 mg by mouth 1 (one) time each day. [facility] cloniDINE 0.1 mg/24 hr patch 2020-03 2-20 00:00: 00 Yes [id number] 1{patch } Apply 1 Patch to skin weekly. [facility] cloniDINE 0.1 mg/24 hr patch 2020-03 2-20 00:00: 00 Yes [id number] 1{patch } Apply 1 Patch to skin weekly. [facility] cloniDINE 0.1 mg/24 hr patch 2020-03 2-20 00:00: 00 Yes [id number] 1{patch } Apply 1 Patch to skin weekly. [facility] cloniDINE 0.1 mg/24 hr patch 2020-03 2-20 00:00: 00 Yes [id number] 1{patch } Apply 1 Patch to skin weekly. [facility] cloniDINE 0.1 mg/24 hr patch 2020-03 2-20 00:00: 00 Yes [id number] 1{patch } Apply 1 Patch to skin weekly. [facility] cloniDINE 0.1 mg/24 hr patch 2020-03 2-20 00:00: 00 Yes [id number] 1{patch } Apply 1 Patch to skin weekly. [facility] cloniDINE 0.1 mg/24 hr patch 2020-03 2-20 00:00: 00 Yes [id number] 1{patch } Apply 1 Patch to skin weekly. [facility] cloniDINE 0.1 mg/24 hr patch 2020-03 2-20 00:00: 00 Yes [id number] 1{patch } Apply 1 Patch to skin weekly. [facility] cloniDINE 0.1 mg/24 hr patch 2020-03 2-20 00:00: 00 Yes [id number] 1{patch } Apply 1 Patch to skin weekly. [facility] cloniDINE 0.1 mg/24 hr patch 2020-03 2-20 00:00: 00 Yes [id number] 1{patch } Apply 1 Patch to skin weekly. [facility] cloniDINE 0.1 mg/24 hr patch 2020-03 2-20 00:00: 00 Yes [id number] 1{patch } Apply 1 Patch to skin weekly. [facility] cloniDINE 0.1 mg/24 hr patch 2020-03 2-20 00:00: 00 Yes [id number] 1{patch } Apply 1 Patch to skin weekly. [facility] cloniDINE 0.1 mg/24 hr patch 2020-03 2-20 00:00: 00 Yes [id number] 1{patch } Apply 1 Patch to skin weekly. [facility] cloniDINE 0.1 mg/24 hr patch 2020-03 2-20 00:00: 00 Yes [id number] 1{patch } Apply 1 Patch to skin weekly. [facility] cloniDINE 0.1 mg/24 hr patch 2020-03 2-20 00:00: 00 Yes [id number] 1{patch } Apply 1 Patch to skin weekly. [facility] cloniDINE 0.1 mg/24 hr patch 2020-03 2-20 00:00: 00 Yes [id number] 1{patch } Apply 1 Patch to skin weekly. [facility] cloniDINE 0.1 mg/24 hr patch 2020-03 2-20 00:00: 00 Yes [id number] 1{patch } Apply 1 Patch to skin weekly. [facility] cloniDINE 0.1 mg/24 hr patch 2020-03 2-20 00:00: 00 Yes [id number] 1{patch } Apply 1 Patch to skin weekly. [facility] cloniDINE 0.1 mg/24 hr patch 2020-03 2-20 00:00: 00 Yes [id number] 1{patch } Apply 1 Patch to skin weekly. [facility] cloniDINE 0.1 mg/24 hr patch 2020-03 2-20 00:00: 00 Yes [id number] 1{patch } Apply 1 Patch to skin weekly. [facility] cloniDINE 0.1 mg/24 hr patch 2020-03 2-20 00:00: 00 Yes [id number] 1{patch } Apply 1 Patch to skin weekly. [facility] cloniDINE 0.1 mg/24 hr patch 2020-03 2-20 00:00: 00 Yes [id number] 1{patch } Apply 1 Patch to skin weekly. [facility] carvediloL 12.5 mg tablet 2020-03 15:47: 03 Yes 12.5mg Take 12.5 mg by mouth 2 (two) times daily with meals. [facility] carvediloL 12.5 mg tablet 2020-03 15:47: 03 Yes 12.5mg Take 12.5 mg by mouth 2 (two) times daily with meals. [facility] carvediloL 12.5 mg tablet 2020-03 15:47: 03 Yes 12.5mg Take 12.5 mg by mouth 2 (two) times daily with meals. [facility] carvediloL 12.5 mg tablet 2020-03 15:47: 03 Yes 12.5mg Take 12.5 mg by mouth 2 (two) times daily with meals. [facility] carvediloL 12.5 mg tablet 2020-03 15:47: 03 Yes 12.5mg Take 12.5 mg by mouth 2 (two) times daily with meals. [facility] carvediloL 12.5 mg tablet 2020-03 15:47: 03 Yes 12.5mg Take 12.5 mg by mouth 2 (two) times daily with meals. [facility] carvediloL 12.5 mg tablet 2020-03 15:47: 03 Yes 12.5mg Take 12.5 mg by mouth 2 (two) times daily with meals. [facility] carvediloL 12.5 mg tablet 2020-03 15:47: 03 Yes 12.5mg Take 12.5 mg by mouth 2 (two) times daily with meals. [facility] carvediloL 12.5 mg tablet 2020-03 15:47: 03 Yes 12.5mg Take 12.5 mg by mouth 2 (two) times daily with meals. [facility] carvediloL 12.5 mg tablet 2020-03 15:47: 03 Yes 12.5mg Take 12.5 mg by mouth 2 (two) times daily with meals. [facility] carvediloL 12.5 mg tablet 2020-03 15:47: 03 Yes 12.5mg Take 12.5 mg by mouth 2 (two) times daily with meals. [facility] carvediloL 12.5 mg tablet 2020-03 15:47: 03 Yes 12.5mg Take 12.5 mg by mouth 2 (two) times daily with meals. [facility] carvediloL 12.5 mg tablet 2020-03 15:47: 03 Yes 12.5mg Take 12.5 mg by mouth 2 (two) times daily with meals. [facility] carvediloL 12.5 mg tablet 2020-03 15:47: 03 Yes 12.5mg Take 12.5 mg by mouth 2 (two) times daily with meals. [facility] carvediloL 12.5 mg tablet 2020-03 15:47: 03 Yes 12.5mg Take 12.5 mg by mouth 2 (two) times daily with meals. [facility] carvediloL 12.5 mg tablet 2020-03 15:47: 03 Yes 12.5mg Take 12.5 mg by mouth 2 (two) times daily with meals. [facility] carvediloL 12.5 mg tablet 2020-03 15:47: 03 Yes 12.5mg Take 12.5 mg by mouth 2 (two) times daily with meals. [facility] carvediloL 12.5 mg tablet 2020-03 15:47: 03 Yes 12.5mg Take 12.5 mg by mouth 2 (two) times daily with meals. [facility] carvediloL 12.5 mg tablet 2020-03 15:47: 03 Yes 12.5mg Take 12.5 mg by mouth 2 (two) times daily with meals. [facility] carvediloL 12.5 mg tablet 2020-03 15:47: 03 Yes 12.5mg Take 12.5 mg by mouth 2 (two) times daily with meals. [facility] carvediloL 12.5 mg tablet 2020-03 15:47: 03 Yes 12.5mg Take 12.5 mg by mouth 2 (two) times daily with meals. [facility] carvediloL 12.5 mg tablet 2020-03 15:47: 03 Yes 12.5mg Take 12.5 mg by mouth 2 (two) times daily with meals. [facility] carvediloL 12.5 mg tablet 2020-03 15:47: 03 Yes 12.5mg Take 12.5 mg by mouth 2 (two) times daily with meals. [facility] insulin aspart (NOVOLOG FLEXPEN U-100 INSULIN SC) 2020-03 11:25: 42 Yes inject under the skin. Per SS [facility] aspirin 81 mg chewable tablet 2020-03 11:25: 42 Yes 81mg Take 81 mg by mouth daily. [facility] dapaglifloz in (FARXIGA) 5 mg tablet 2020-03 11:25: 42 Yes Take by mouth daily. [facility] linaGLIPtin (TRADJENTA) 5 mg tablet 2020-03 11:25: 42 Yes Take by mouth daily. [facility] TURMERIC ORAL 2020-03 11:25: 42 Yes 500mg Take 500 mg by mouth 2 (two) times daily. [facility] Cholecalcif kassidy, Vitamin D3, (VITAMIN D3) 25 mcg (1,000 unit) capsule 2020-03 11:25: 42 Yes Take by mouth daily. [facility] bumetanide 1 mg tablet 2020-03 11:25: 42 Yes 1mg 1 mg at bedtime. [facility] ergocalcife rol, vitamin d2, (VITAMIN D2) 1,250 mcg (50,000 unit) capsule 2020-03 11:25: 42 Yes [id number] Take 50,000 Units by mouth weekly. [facility] nystatin 100,000 unit/mL suspension 2020-03 11:25: 42 Yes Take by mouth 4 (four) times daily. [facility] insulin aspart (NOVOLOG FLEXPEN U-100 INSULIN SC) 2020-03 11:25: 42 Yes inject under the skin. Per SS [facility] aspirin 81 mg chewable tablet 2020-03 11:25: 42 Yes 81mg Take 81 mg by mouth daily. [facility] dapaglifloz in (FARXIGA) 5 mg tablet 2020-03 11:25: 42 Yes Take by mouth daily. [facility] linaGLIPtin (TRADJENTA) 5 mg tablet 2020-03 11:25: 42 Yes Take by mouth daily. [facility] TURMERIC ORAL 2020-03 11:25: 42 Yes 500mg Take 500 mg by mouth 2 (two) times daily. [facility] Cholecalcif kassidy, Vitamin D3, (VITAMIN D3) 25 mcg (1,000 unit) capsule 2020-03 11:25: 42 Yes Take by mouth daily. [facility] bumetanide 1 mg tablet 2020-03 11:25: 42 Yes 1mg 1 mg at bedtime. [facility] ergocalcife rol, vitamin d2, (VITAMIN D2) 1,250 mcg (50,000 unit) capsule 2020-03 11:25: 42 Yes [id number] Take 50,000 Units by mouth weekly. [facility] nystatin 100,000 unit/mL suspension 2020-03 11:25: 42 Yes Take by mouth 4 (four) times daily. [facility] insulin aspart (NOVOLOG FLEXPEN U-100 INSULIN SC) 2020-03 11:25: 42 Yes inject under the skin. Per SS [facility] aspirin 81 mg chewable tablet 2020-03 11:25: 42 Yes 81mg Take 81 mg by mouth daily. [facility] dapaglifloz in (FARXIGA) 5 mg tablet 2020-03 11:25: 42 Yes Take by mouth daily. [facility] linaGLIPtin (TRADJENTA) 5 mg tablet 2020-03 11:25: 42 Yes Take by mouth daily. [facility] TURMERIC ORAL 2020-03 11:25: 42 Yes 500mg Take 500 mg by mouth 2 (two) times daily. [facility] Cholecalcif kassidy, Vitamin D3, (VITAMIN D3) 25 mcg (1,000 unit) capsule 2020-03 11:25: 42 Yes Take by mouth daily. [facility] bumetanide 1 mg tablet 2020-03 11:25: 42 Yes 1mg 1 mg at bedtime. [facility] ergocalcife rol, vitamin d2, (VITAMIN D2) 1,250 mcg (50,000 unit) capsule 2020-03 11:25: 42 Yes [id number] Take 50,000 Units by mouth weekly. [facility] nystatin 100,000 unit/mL suspension 2020-03 11:25: 42 Yes Take by mouth 4 (four) times daily. [facility] insulin aspart (NOVOLOG FLEXPEN U-100 INSULIN SC) 2020-03 11:25: 42 Yes inject under the skin. Per SS [facility] aspirin 81 mg chewable tablet 2020-03 11:25: 42 Yes 81mg Take 81 mg by mouth daily. [facility] dapaglifloz in (FARXIGA) 5 mg tablet 2020-03 11:25: 42 Yes Take by mouth daily. [facility] linaGLIPtin (TRADJENTA) 5 mg tablet 2020-03 11:25: 42 Yes Take by mouth daily. [facility] TURMERIC ORAL 2020-03 11:25: 42 Yes 500mg Take 500 mg by mouth 2 (two) times daily. [facility] Cholecalcif kassidy, Vitamin D3, (VITAMIN D3) 25 mcg (1,000 unit) capsule 2020-03 11:25: 42 Yes Take by mouth daily. [facility] bumetanide 1 mg tablet 2020-03 11:25: 42 Yes 1mg 1 mg at bedtime. [facility] ergocalcife rol, vitamin d2, (VITAMIN D2) 1,250 mcg (50,000 unit) capsule 2020-03 11:25: 42 Yes [id number] Take 50,000 Units by mouth weekly. [facility] nystatin 100,000 unit/mL suspension 2020-03 11:25: 42 Yes Take by mouth 4 (four) times daily. [facility] insulin aspart (NOVOLOG FLEXPEN U-100 INSULIN SC) 2020-03 11:25: 42 Yes inject under the skin. Per SS [facility] aspirin 81 mg chewable tablet 2020-03 11:25: 42 Yes 81mg Take 81 mg by mouth daily. [facility] dapaglifloz in (FARXIGA) 5 mg tablet 2020-03 11:25: 42 Yes Take by mouth daily. [facility] linaGLIPtin (TRADJENTA) 5 mg tablet 2020-03 11:25: 42 Yes Take by mouth daily. [facility] TURMERIC ORAL 2020-03 11:25: 42 Yes 500mg Take 500 mg by mouth 2 (two) times daily. [facility] Cholecalcif kassidy, Vitamin D3, (VITAMIN D3) 25 mcg (1,000 unit) capsule 2020-03 11:25: 42 Yes Take by mouth daily. [facility] bumetanide 1 mg tablet 2020-03 11:25: 42 Yes 1mg 1 mg at bedtime. [facility] ergocalcife rol, vitamin d2, (VITAMIN D2) 1,250 mcg (50,000 unit) capsule 2020-03 11:25: 42 Yes [id number] Take 50,000 Units by mouth weekly. [facility] nystatin 100,000 unit/mL suspension 2020-03 11:25: 42 Yes Take by mouth 4 (four) times daily. [facility] insulin aspart (NOVOLOG FLEXPEN U-100 INSULIN SC) 2020-03 11:25: 42 Yes inject under the skin. Per SS [facility] aspirin 81 mg chewable tablet 2020-03 11:25: 42 Yes 81mg Take 81 mg by mouth daily. [facility] dapaglifloz in (FARXIGA) 5 mg tablet 2020-03 11:25: 42 Yes Take by mouth daily. [facility] linaGLIPtin (TRADJENTA) 5 mg tablet 2020-03 11:25: 42 Yes Take by mouth daily. [facility] TURMERIC ORAL 2020-03 11:25: 42 Yes 500mg Take 500 mg by mouth 2 (two) times daily. [facility] Cholecalcif kassidy, Vitamin D3, (VITAMIN D3) 25 mcg (1,000 unit) capsule 2020-03 11:25: 42 Yes Take by mouth daily. [facility] bumetanide 1 mg tablet 2020-03 11:25: 42 Yes 1mg 1 mg at bedtime. [facility] ergocalcife rol, vitamin d2, (VITAMIN D2) 1,250 mcg (50,000 unit) capsule 2020-03 11:25: 42 Yes [id number] Take 50,000 Units by mouth weekly. [facility] nystatin 100,000 unit/mL suspension 2020-03 11:25: 42 Yes Take by mouth 4 (four) times daily. [facility] insulin aspart (NOVOLOG FLEXPEN U-100 INSULIN SC) 2020-03 11:25: 42 Yes inject under the skin. Per SS [facility] aspirin 81 mg chewable tablet 2020-03 11:25: 42 Yes 81mg Take 81 mg by mouth daily. [facility] dapaglifloz in (FARXIGA) 5 mg tablet 2020-03 11:25: 42 Yes Take by mouth daily. [facility] linaGLIPtin (TRADJENTA) 5 mg tablet 2020-03 11:25: 42 Yes Take by mouth daily. [facility] TURMERIC ORAL 2020-03 11:25: 42 Yes 500mg Take 500 mg by mouth 2 (two) times daily. [facility] Cholecalcif kassidy, Vitamin D3, (VITAMIN D3) 25 mcg (1,000 unit) capsule 2020-03 11:25: 42 Yes Take by mouth daily. [facility] bumetanide 1 mg tablet 2020-03 11:25: 42 Yes 1mg 1 mg at bedtime. [facility] ergocalcife rol, vitamin d2, (VITAMIN D2) 1,250 mcg (50,000 unit) capsule 2020-03 11:25: 42 Yes [id number] Take 50,000 Units by mouth weekly. [facility] nystatin 100,000 unit/mL suspension 2020-03 11:25: 42 Yes Take by mouth 4 (four) times daily. [facility] insulin aspart (NOVOLOG FLEXPEN U-100 INSULIN SC) 2020-03 11:25: 42 Yes inject under the skin. Per SS [facility] aspirin 81 mg chewable tablet 2020-03 11:25: 42 Yes 81mg Take 81 mg by mouth daily. [facility] dapaglifloz in (FARXIGA) 5 mg tablet 2020-03 11:25: 42 Yes Take by mouth daily. [facility] linaGLIPtin (TRADJENTA) 5 mg tablet 2020-03 11:25: 42 Yes Take by mouth daily. [facility] TURMERIC ORAL 2020-03 11:25: 42 Yes 500mg Take 500 mg by mouth 2 (two) times daily. [facility] Cholecalcif kassidy, Vitamin D3, (VITAMIN D3) 25 mcg (1,000 unit) capsule 2020-03 11:25: 42 Yes Take by mouth daily. [facility] bumetanide 1 mg tablet 2020-03 11:25: 42 Yes 1mg 1 mg at bedtime. [facility] ergocalcife rol, vitamin d2, (VITAMIN D2) 1,250 mcg (50,000 unit) capsule 2020-03 11:25: 42 Yes [id number] Take 50,000 Units by mouth weekly. [facility] nystatin 100,000 unit/mL suspension 2020-03 11:25: 42 Yes Take by mouth 4 (four) times daily. [facility] insulin aspart (NOVOLOG FLEXPEN U-100 INSULIN SC) 2020-03 11:25: 42 Yes inject under the skin. Per SS [facility] aspirin 81 mg chewable tablet 2020-03 11:25: 42 Yes 81mg Take 81 mg by mouth daily. [facility] dapaglifloz in (FARXIGA) 5 mg tablet 2020-03 11:25: 42 Yes Take by mouth daily. [facility] linaGLIPtin (TRADJENTA) 5 mg tablet 2020-03 11:25: 42 Yes Take by mouth daily. [facility] TURMERIC ORAL 2020-03 11:25: 42 Yes 500mg Take 500 mg by mouth 2 (two) times daily. [facility] Cholecalcif kassidy, Vitamin D3, (VITAMIN D3) 25 mcg (1,000 unit) capsule 2020-03 11:25: 42 Yes Take by mouth daily. [facility] bumetanide 1 mg tablet 2020-03 11:25: 42 Yes 1mg 1 mg at bedtime. [facility] ergocalcife rol, vitamin d2, (VITAMIN D2) 1,250 mcg (50,000 unit) capsule 2020-03 11:25: 42 Yes [id number] Take 50,000 Units by mouth weekly. [facility] nystatin 100,000 unit/mL suspension 2020-03 11:25: 42 Yes Take by mouth 4 (four) times daily. [facility] insulin aspart (NOVOLOG FLEXPEN U-100 INSULIN SC) 2020-03 11:25: 42 Yes inject under the skin. Per SS [facility] aspirin 81 mg chewable tablet 2020-03 11:25: 42 Yes 81mg Take 81 mg by mouth daily. [facility] dapaglifloz in (FARXIGA) 5 mg tablet 2020-03 11:25: 42 Yes Take by mouth daily. [facility] linaGLIPtin (TRADJENTA) 5 mg tablet 2020-03 11:25: 42 Yes Take by mouth daily. [facility] TURMERIC ORAL 2020-03 11:25: 42 Yes 500mg Take 500 mg by mouth 2 (two) times daily. [facility] Cholecalcif kassidy, Vitamin D3, (VITAMIN D3) 25 mcg (1,000 unit) capsule 2020-03 11:25: 42 Yes Take by mouth daily. [facility] bumetanide 1 mg tablet 2020-03 11:25: 42 Yes 1mg 1 mg at bedtime. [facility] ergocalcife rol, vitamin d2, (VITAMIN D2) 1,250 mcg (50,000 unit) capsule 2020-03 11:25: 42 Yes [id number] Take 50,000 Units by mouth weekly. [facility] nystatin 100,000 unit/mL suspension 2020-03 11:25: 42 Yes Take by mouth 4 (four) times daily. [facility] insulin aspart (NOVOLOG FLEXPEN U-100 INSULIN SC) 2020-03 11:25: 42 Yes inject under the skin. Per SS [facility] aspirin 81 mg chewable tablet 2020-03 11:25: 42 Yes 81mg Take 81 mg by mouth daily. [facility] dapaglifloz in (FARXIGA) 5 mg tablet 2020-03 11:25: 42 Yes Take by mouth daily. [facility] linaGLIPtin (TRADJENTA) 5 mg tablet 2020-03 11:25: 42 Yes Take by mouth daily. [facility] TURMERIC ORAL 2020-03 11:25: 42 Yes 500mg Take 500 mg by mouth 2 (two) times daily. [facility] Cholecalcif kassidy, Vitamin D3, (VITAMIN D3) 25 mcg (1,000 unit) capsule 2020-03 11:25: 42 Yes Take by mouth daily. [facility] bumetanide 1 mg tablet 2020-03 11:25: 42 Yes 1mg 1 mg at bedtime. [facility] ergocalcife rol, vitamin d2, (VITAMIN D2) 1,250 mcg (50,000 unit) capsule 2020-03 11:25: 42 Yes [id number] Take 50,000 Units by mouth weekly. [facility] nystatin 100,000 unit/mL suspension 2020-03 11:25: 42 Yes Take by mouth 4 (four) times daily. [facility] insulin aspart (NOVOLOG FLEXPEN U-100 INSULIN SC) 2020-03 11:25: 42 Yes inject under the skin. Per SS [facility] aspirin 81 mg chewable tablet 2020-03 11:25: 42 Yes 81mg Take 81 mg by mouth daily. [facility] dapaglifloz in (FARXIGA) 5 mg tablet 2020-03 11:25: 42 Yes Take by mouth daily. [facility] linaGLIPtin (TRADJENTA) 5 mg tablet 2020-03 11:25: 42 Yes Take by mouth daily. [facility] TURMERIC ORAL 2020-03 11:25: 42 Yes 500mg Take 500 mg by mouth 2 (two) times daily. [facility] Cholecalcif kassidy, Vitamin D3, (VITAMIN D3) 25 mcg (1,000 unit) capsule 2020-03 11:25: 42 Yes Take by mouth daily. [facility] bumetanide 1 mg tablet 2020-03 11:25: 42 Yes 1mg 1 mg at bedtime. [facility] ergocalcife rol, vitamin d2, (VITAMIN D2) 1,250 mcg (50,000 unit) capsule 2020-03 11:25: 42 Yes [id number] Take 50,000 Units by mouth weekly. [facility] nystatin 100,000 unit/mL suspension 2020-03 11:25: 42 Yes Take by mouth 4 (four) times daily. [facility] insulin aspart (NOVOLOG FLEXPEN U-100 INSULIN SC) 2020-03 11:25: 42 Yes inject under the skin. Per SS [facility] aspirin 81 mg chewable tablet 2020-03 11:25: 42 Yes 81mg Take 81 mg by mouth daily. [facility] dapaglifloz in (FARXIGA) 5 mg tablet 2020-03 11:25: 42 Yes Take by mouth daily. [facility] linaGLIPtin (TRADJENTA) 5 mg tablet 2020-03 11:25: 42 Yes Take by mouth daily. [facility] TURMERIC ORAL 2020-03 11:25: 42 Yes 500mg Take 500 mg by mouth 2 (two) times daily. [facility] Cholecalcif kassidy, Vitamin D3, (VITAMIN D3) 25 mcg (1,000 unit) capsule 2020-03 11:25: 42 Yes Take by mouth daily. [facility] bumetanide 1 mg tablet 2020-03 11:25: 42 Yes 1mg 1 mg at bedtime. [facility] ergocalcife rol, vitamin d2, (VITAMIN D2) 1,250 mcg (50,000 unit) capsule 2020-03 11:25: 42 Yes [id number] Take 50,000 Units by mouth weekly. [facility] nystatin 100,000 unit/mL suspension 2020-03 11:25: 42 Yes Take by mouth 4 (four) times daily. [facility] insulin aspart (NOVOLOG FLEXPEN U-100 INSULIN SC) 2020-03 11:25: 42 Yes inject under the skin. Per SS [facility] aspirin 81 mg chewable tablet 2020-03 11:25: 42 Yes 81mg Take 81 mg by mouth daily. [facility] dapaglifloz in (FARXIGA) 5 mg tablet 2020-03 11:25: 42 Yes Take by mouth daily. [facility] linaGLIPtin (TRADJENTA) 5 mg tablet 2020-03 11:25: 42 Yes Take by mouth daily. [facility] TURMERIC ORAL 2020-03 11:25: 42 Yes 500mg Take 500 mg by mouth 2 (two) times daily. [facility] Cholecalcif kassidy, Vitamin D3, (VITAMIN D3) 25 mcg (1,000 unit) capsule 2020-03 11:25: 42 Yes Take by mouth daily. [facility] bumetanide 1 mg tablet 2020-03 11:25: 42 Yes 1mg 1 mg at bedtime. [facility] ergocalcife rol, vitamin d2, (VITAMIN D2) 1,250 mcg (50,000 unit) capsule 2020-03 11:25: 42 Yes [id number] Take 50,000 Units by mouth weekly. [facility] nystatin 100,000 unit/mL suspension 2020-03 11:25: 42 Yes Take by mouth 4 (four) times daily. [facility] insulin aspart (NOVOLOG FLEXPEN U-100 INSULIN SC) 2020-03 11:25: 42 Yes inject under the skin. Per SS [facility] aspirin 81 mg chewable tablet 2020-03 11:25: 42 Yes 81mg Take 81 mg by mouth daily. [facility] dapaglifloz in (FARXIGA) 5 mg tablet 2020-03 11:25: 42 Yes Take by mouth daily. [facility] linaGLIPtin (TRADJENTA) 5 mg tablet 2020-03 11:25: 42 Yes Take by mouth daily. [facility] TURMERIC ORAL 2020-03 11:25: 42 Yes 500mg Take 500 mg by mouth 2 (two) times daily. [facility] Cholecalcif kassidy, Vitamin D3, (VITAMIN D3) 25 mcg (1,000 unit) capsule 2020-03 11:25: 42 Yes Take by mouth daily. [facility] bumetanide 1 mg tablet 2020-03 11:25: 42 Yes 1mg 1 mg at bedtime. [facility] ergocalcife rol, vitamin d2, (VITAMIN D2) 1,250 mcg (50,000 unit) capsule 2020-03 11:25: 42 Yes [id number] Take 50,000 Units by mouth weekly. [facility] nystatin 100,000 unit/mL suspension 2020-03 11:25: 42 Yes Take by mouth 4 (four) times daily. [facility] insulin aspart (NOVOLOG FLEXPEN U-100 INSULIN SC) 2020-03 11:25: 42 Yes inject under the skin. Per SS [facility] aspirin 81 mg chewable tablet 2020-03 11:25: 42 Yes 81mg Take 81 mg by mouth daily. [facility] dapaglifloz in (FARXIGA) 5 mg tablet 2020-03 11:25: 42 Yes Take by mouth daily. [facility] linaGLIPtin (TRADJENTA) 5 mg tablet 2020-03 11:25: 42 Yes Take by mouth daily. [facility] TURMERIC ORAL 2020-03 11:25: 42 Yes 500mg Take 500 mg by mouth 2 (two) times daily. [facility] Cholecalcif kassidy, Vitamin D3, (VITAMIN D3) 25 mcg (1,000 unit) capsule 2020-03 11:25: 42 Yes Take by mouth daily. [facility] bumetanide 1 mg tablet 2020-03 11:25: 42 Yes 1mg 1 mg at bedtime. [facility] ergocalcife rol, vitamin d2, (VITAMIN D2) 1,250 mcg (50,000 unit) capsule 2020-03 11:25: 42 Yes [id number] Take 50,000 Units by mouth weekly. [facility] nystatin 100,000 unit/mL suspension 2020-03 11:25: 42 Yes Take by mouth 4 (four) times daily. [facility] insulin aspart (NOVOLOG FLEXPEN U-100 INSULIN SC) 2020-03 11:25: 42 Yes inject under the skin. Per SS [facility] aspirin 81 mg chewable tablet 2020-03 11:25: 42 Yes 81mg Take 81 mg by mouth daily. [facility] dapaglifloz in (FARXIGA) 5 mg tablet 2020-03 11:25: 42 Yes Take by mouth daily. [facility] linaGLIPtin (TRADJENTA) 5 mg tablet 2020-03 11:25: 42 Yes Take by mouth daily. [facility] TURMERIC ORAL 2020-03 11:25: 42 Yes 500mg Take 500 mg by mouth 2 (two) times daily. [facility] Cholecalcif kassidy, Vitamin D3, (VITAMIN D3) 25 mcg (1,000 unit) capsule 2020-03 11:25: 42 Yes Take by mouth daily. [facility] bumetanide 1 mg tablet 2020-03 11:25: 42 Yes 1mg 1 mg at bedtime. [facility] ergocalcife rol, vitamin d2, (VITAMIN D2) 1,250 mcg (50,000 unit) capsule 2020-03 11:25: 42 Yes [id number] Take 50,000 Units by mouth weekly. [facility] nystatin 100,000 unit/mL suspension 2020-03 11:25: 42 Yes Take by mouth 4 (four) times daily. [facility] insulin aspart (NOVOLOG FLEXPEN U-100 INSULIN SC) 2020-03 11:25: 42 Yes inject under the skin. Per SS [facility] aspirin 81 mg chewable tablet 2020-03 11:25: 42 Yes 81mg Take 81 mg by mouth daily. [facility] dapaglifloz in (FARXIGA) 5 mg tablet 2020-03 11:25: 42 Yes Take by mouth daily. [facility] linaGLIPtin (TRADJENTA) 5 mg tablet 2020-03 11:25: 42 Yes Take by mouth daily. [facility] TURMERIC ORAL 2020-03 11:25: 42 Yes 500mg Take 500 mg by mouth 2 (two) times daily. [facility] Cholecalcif kassidy, Vitamin D3, (VITAMIN D3) 25 mcg (1,000 unit) capsule 2020-03 11:25: 42 Yes Take by mouth daily. [facility] bumetanide 1 mg tablet 2020-03 11:25: 42 Yes 1mg 1 mg at bedtime. [facility] ergocalcife rol, vitamin d2, (VITAMIN D2) 1,250 mcg (50,000 unit) capsule 2020-03 11:25: 42 Yes [id number] Take 50,000 Units by mouth weekly. [facility] nystatin 100,000 unit/mL suspension 2020-03 11:25: 42 Yes Take by mouth 4 (four) times daily. [facility] insulin aspart (NOVOLOG FLEXPEN U-100 INSULIN SC) 2020-03 11:25: 42 Yes inject under the skin. Per SS [facility] aspirin 81 mg chewable tablet 2020-03 11:25: 42 Yes 81mg Take 81 mg by mouth daily. [facility] dapaglifloz in (FARXIGA) 5 mg tablet 2020-03 11:25: 42 Yes Take by mouth daily. [facility] linaGLIPtin (TRADJENTA) 5 mg tablet 2020-03 11:25: 42 Yes Take by mouth daily. [facility] TURMERIC ORAL 2020-03 11:25: 42 Yes 500mg Take 500 mg by mouth 2 (two) times daily. [facility] Cholecalcif kassidy, Vitamin D3, (VITAMIN D3) 25 mcg (1,000 unit) capsule 2020-03 11:25: 42 Yes Take by mouth daily. [facility] bumetanide 1 mg tablet 2020-03 11:25: 42 Yes 1mg 1 mg at bedtime. [facility] ergocalcife rol, vitamin d2, (VITAMIN D2) 1,250 mcg (50,000 unit) capsule 2020-03 11:25: 42 Yes [id number] Take 50,000 Units by mouth weekly. [facility] nystatin 100,000 unit/mL suspension 2020-03 11:25: 42 Yes Take by mouth 4 (four) times daily. [facility] insulin aspart (NOVOLOG FLEXPEN U-100 INSULIN SC) 2020-03 11:25: 42 Yes inject under the skin. Per SS [facility] aspirin 81 mg chewable tablet 2020-03 11:25: 42 Yes 81mg Take 81 mg by mouth daily. [facility] dapaglifloz in (FARXIGA) 5 mg tablet 2020-03 11:25: 42 Yes Take by mouth daily. [facility] linaGLIPtin (TRADJENTA) 5 mg tablet 2020-03 11:25: 42 Yes Take by mouth daily. [facility] TURMERIC ORAL 2020-03 11:25: 42 Yes 500mg Take 500 mg by mouth 2 (two) times daily. [facility] Cholecalcif kassidy, Vitamin D3, (VITAMIN D3) 25 mcg (1,000 unit) capsule 2020-03 11:25: 42 Yes Take by mouth daily. [facility] bumetanide 1 mg tablet 2020-03 11:25: 42 Yes 1mg 1 mg at bedtime. [facility] ergocalcife rol, vitamin d2, (VITAMIN D2) 1,250 mcg (50,000 unit) capsule 2020-03 11:25: 42 Yes [id number] Take 50,000 Units by mouth weekly. [facility] nystatin 100,000 unit/mL suspension 2020-03 11:25: 42 Yes Take by mouth 4 (four) times daily. [facility] insulin aspart (NOVOLOG FLEXPEN U-100 INSULIN SC) 2020-03 11:25: 42 Yes inject under the skin. Per SS [facility] aspirin 81 mg chewable tablet 2020-03 11:25: 42 Yes 81mg Take 81 mg by mouth daily. [facility] dapaglifloz in (FARXIGA) 5 mg tablet 2020-03 11:25: 42 Yes Take by mouth daily. [facility] linaGLIPtin (TRADJENTA) 5 mg tablet 2020-03 11:25: 42 Yes Take by mouth daily. [facility] TURMERIC ORAL 2020-03 11:25: 42 Yes 500mg Take 500 mg by mouth 2 (two) times daily. [facility] Cholecalcif kassidy, Vitamin D3, (VITAMIN D3) 25 mcg (1,000 unit) capsule 2020-03 11:25: 42 Yes Take by mouth daily. [facility] bumetanide 1 mg tablet 2020-03 11:25: 42 Yes 1mg 1 mg at bedtime. [facility] ergocalcife rol, vitamin d2, (VITAMIN D2) 1,250 mcg (50,000 unit) capsule 2020-03 11:25: 42 Yes [id number] Take 50,000 Units by mouth weekly. [facility] nystatin 100,000 unit/mL suspension 2020-03 11:25: 42 Yes Take by mouth 4 (four) times daily. [facility] insulin aspart (NOVOLOG FLEXPEN U-100 INSULIN SC) 2020-03 11:25: 42 Yes inject under the skin. Per SS [facility] aspirin 81 mg chewable tablet 2020-03 11:25: 42 Yes 81mg Take 81 mg by mouth daily. [facility] dapaglifloz in (FARXIGA) 5 mg tablet 2020-03 11:25: 42 Yes Take by mouth daily. [facility] linaGLIPtin (TRADJENTA) 5 mg tablet 2020-03 11:25: 42 Yes Take by mouth daily. [facility] TURMERIC ORAL 2020-03 11:25: 42 Yes 500mg Take 500 mg by mouth 2 (two) times daily. [facility] Cholecalcif kassidy, Vitamin D3, (VITAMIN D3) 25 mcg (1,000 unit) capsule 2020-03 11:25: 42 Yes Take by mouth daily. [facility] bumetanide 1 mg tablet 2020-03 11:25: 42 Yes 1mg 1 mg at bedtime. [facility] ergocalcife rol, vitamin d2, (VITAMIN D2) 1,250 mcg (50,000 unit) capsule 2020-03 11:25: 42 Yes [id number] Take 50,000 Units by mouth weekly. [facility] nystatin 100,000 unit/mL suspension 2020-03 11:25: 42 Yes Take by mouth 4 (four) times daily. [facility] insulin aspart (NOVOLOG FLEXPEN U-100 INSULIN SC) 2020-03 11:25: 42 Yes inject under the skin. Per SS [facility] aspirin 81 mg chewable tablet 2020-03 11:25: 42 Yes 81mg Take 81 mg by mouth daily. [facility] dapaglifloz in (FARXIGA) 5 mg tablet 2020-03 11:25: 42 Yes Take by mouth daily. [facility] linaGLIPtin (TRADJENTA) 5 mg tablet 2020-03 11:25: 42 Yes Take by mouth daily. [facility] TURMERIC ORAL 2020-03 11:25: 42 Yes 500mg Take 500 mg by mouth 2 (two) times daily. [facility] Cholecalcif kassidy, Vitamin D3, (VITAMIN D3) 25 mcg (1,000 unit) capsule 2020-03 11:25: 42 Yes Take by mouth daily. [facility] bumetanide 1 mg tablet 2020-03 11:25: 42 Yes 1mg 1 mg at bedtime. [facility] ergocalcife rol, vitamin d2, (VITAMIN D2) 1,250 mcg (50,000 unit) capsule 2020-03 11:25: 42 Yes [id number] Take 50,000 Units by mouth weekly. [facility] nystatin 100,000 unit/mL suspension 2020-03 11:25: 42 Yes Take by mouth 4 (four) times daily. [facility] insulin aspart (NOVOLOG FLEXPEN U-100 INSULIN SC) 2020-03 11:25: 42 Yes inject under the skin. Per SS [facility] aspirin 81 mg chewable tablet 2020-03 11:25: 42 Yes 81mg Take 81 mg by mouth daily. [facility] dapaglifloz in (FARXIGA) 5 mg tablet 2020-03 11:25: 42 Yes Take by mouth daily. [facility] linaGLIPtin (TRADJENTA) 5 mg tablet 2020-03 11:25: 42 Yes Take by mouth daily. [facility] TURMERIC ORAL 2020-03 11:25: 42 Yes 500mg Take 500 mg by mouth 2 (two) times daily. [facility] Cholecalcif kassidy, Vitamin D3, (VITAMIN D3) 25 mcg (1,000 unit) capsule 2020-03 11:25: 42 Yes Take by mouth daily. [facility] bumetanide 1 mg tablet 2020-03 11:25: 42 Yes 1mg 1 mg at bedtime. [facility] ergocalcife rol, vitamin d2, (VITAMIN D2) 1,250 mcg (50,000 unit) capsule 2020-03 11:25: 42 Yes [id number] Take 50,000 Units by mouth weekly. [facility] nystatin 100,000 unit/mL suspension 2020-03 11:25: 42 Yes Take by mouth 4 (four) times daily. [facility] insulin aspart (NOVOLOG FLEXPEN U-100 INSULIN SC) 2020-03 11:25: 42 Yes inject under the skin. Per SS [facility] aspirin 81 mg chewable tablet 2020-03 11:25: 42 Yes 81mg Take 81 mg by mouth daily. [facility] dapaglifloz in (FARXIGA) 5 mg tablet 2020-03 11:25: 42 Yes Take by mouth daily. [facility] linaGLIPtin (TRADJENTA) 5 mg tablet 2020-03 11:25: 42 Yes Take by mouth daily. [facility] TURMERIC ORAL 2020-03 11:25: 42 Yes 500mg Take 500 mg by mouth 2 (two) times daily. [facility] Cholecalcif kassidy, Vitamin D3, (VITAMIN D3) 25 mcg (1,000 unit) capsule 2020-03 11:25: 42 Yes Take by mouth daily. [facility] bumetanide 1 mg tablet 2020-03 11:25: 42 Yes 1mg 1 mg at bedtime. [facility] ergocalcife rol, vitamin d2, (VITAMIN D2) 1,250 mcg (50,000 unit) capsule 2020-03 11:25: 42 Yes [id number] Take 50,000 Units by mouth weekly. [facility] insulin aspart (NOVOLOG FLEXPEN U-100 INSULIN SC) 2020-03 11:25: 42 Yes inject under the skin. Per SS [facility] aspirin 81 mg chewable tablet 2020-03 11:25: 42 Yes 81mg Take 81 mg by mouth daily. [facility] dapaglifloz in (FARXIGA) 5 mg tablet 2020-03 11:25: 42 Yes Take by mouth daily. [facility] linaGLIPtin (TRADJENTA) 5 mg tablet 2020-03 11:25: 42 Yes Take by mouth daily. [facility] TURMERIC ORAL 2020-03 11:25: 42 Yes 500mg Take 500 mg by mouth 2 (two) times daily. [facility] Cholecalcif kassidy, Vitamin D3, (VITAMIN D3) 25 mcg (1,000 unit) capsule 2020-03 11:25: 42 Yes Take by mouth daily. [facility] bumetanide 1 mg tablet 2020-03 11:25: 42 Yes 1mg 1 mg at bedtime. [facility] ergocalcife rol, vitamin d2, (VITAMIN D2) 1,250 mcg (50,000 unit) capsule 2020-03 11:25: 42 Yes [id number] Take 50,000 Units by mouth weekly. [facility] insulin aspart (NOVOLOG FLEXPEN U-100 INSULIN SC) 2020-03 11:25: 42 Yes inject under the skin. Per SS [facility] aspirin 81 mg chewable tablet 2020-03 11:25: 42 Yes 81mg Take 81 mg by mouth daily. [facility] dapaglifloz in (FARXIGA) 5 mg tablet 2020-03 11:25: 42 Yes Take by mouth daily. [facility] linaGLIPtin (TRADJENTA) 5 mg tablet 2020-03 11:25: 42 Yes Take by mouth daily. [facility] TURMERIC ORAL 2020-03 11:25: 42 Yes 500mg Take 500 mg by mouth 2 (two) times daily. [facility] Cholecalcif kassidy, Vitamin D3, (VITAMIN D3) 25 mcg (1,000 unit) capsule 2020-03 11:25: 42 Yes Take by mouth daily. [facility] bumetanide 1 mg tablet 2020-03 11:25: 42 Yes 1mg 1 mg at bedtime. [facility] ergocalcife rol, vitamin d2, (VITAMIN D2) 1,250 mcg (50,000 unit) capsule 2020-03 11:25: 42 Yes [id number] Take 50,000 Units by mouth weekly. [facility] insulin aspart (NOVOLOG FLEXPEN U-100 INSULIN SC) 2020-03 11:25: 42 Yes inject under the skin. Per SS [facility] aspirin 81 mg chewable tablet 2020-03 11:25: 42 Yes 81mg Take 81 mg by mouth daily. [facility] dapaglifloz in (FARXIGA) 5 mg tablet 2020-03 11:25: 42 Yes Take by mouth daily. [facility] linaGLIPtin (TRADJENTA) 5 mg tablet 2020-03 11:25: 42 Yes Take by mouth daily. [facility] TURMERIC ORAL 2020-03 11:25: 42 Yes 500mg Take 500 mg by mouth 2 (two) times daily. [facility] Cholecalcif kassidy, Vitamin D3, (VITAMIN D3) 25 mcg (1,000 unit) capsule 2020-03 11:25: 42 Yes Take by mouth daily. [facility] bumetanide 1 mg tablet 2020-03 11:25: 42 Yes 1mg 1 mg at bedtime. [facility] ergocalcife rol, vitamin d2, (VITAMIN D2) 1,250 mcg (50,000 unit) capsule 2020-03 11:25: 42 Yes [id number] Take 50,000 Units by mouth weekly. [facility] amLODIPine 10 mg tablet 2020-03 00:00: 00 02-12 00:00 :00 No [id number] 10mg Take 1 tablet by mouth daily. [facility] topiramate 25 mg tablet 2020-03 00:00: 00 Yes [id number] 25mg Take 1 tablet by mouth 2 (two) times daily. [facility] topiramate 25 mg tablet 2020-03 00:00: 00 Yes [id number] 25mg Take 1 tablet by mouth 2 (two) times daily. [facility] topiramate 25 mg tablet 2020-03 00:00: 00 Yes [id number] 25mg Take 1 tablet by mouth 2 (two) times daily. [facility] topiramate 25 mg tablet 2020-03 00:00: 00 Yes [id number] 25mg Take 1 tablet by mouth 2 (two) times daily. [facility] topiramate 25 mg tablet 2020-03 00:00: 00 Yes [id number] 25mg Take 1 tablet by mouth 2 (two) times daily. [facility] topiramate 25 mg tablet 2020-03 00:00: 00 Yes [id number] 25mg Take 1 tablet by mouth 2 (two) times daily. [facility] topiramate 25 mg tablet 2020-03 00:00: 00 01-18 00:00 :00 No [id number] 25mg Take 1 tablet by mouth 2 (two) times daily. [facility] topiramate 25 mg tablet 2020-03 00:00: 00 2- 11-14 00:00 :00 No [id number] 25mg Take 1 tablet by mouth 2 (two) times daily. [facility] spironolact one 25 mg tablet 11-25 00:00: 00 Yes [id number] 02 25mg Take 1 tablet by mouth daily. [facility] thyroid (ARMOUR THYROID) 30 mg tablet 11-25 00:00: 00 Yes [id number] 15mg Take 0.5 tablets by mouth every morning. [facility] spironolact one 25 mg tablet 11-25 00:00: 00 Yes [id number] 02 25mg Take 1 tablet by mouth daily. [facility] thyroid (ARMOUR THYROID) 30 mg tablet 11-25 00:00: 00 Yes [id number] 15mg Take 0.5 tablets by mouth every morning. [facility] spironolact one 25 mg tablet 11-25 00:00: 00 Yes [id number] 02 25mg Take 1 tablet by mouth daily. [facility] thyroid (ARMOUR THYROID) 30 mg tablet 11-25 00:00: 00 Yes [id number] 15mg Take 0.5 tablets by mouth every morning. [facility] spironolact one 25 mg tablet 11-25 00:00: 00 Yes [id number] 02 25mg Take 1 tablet by mouth daily. [facility] thyroid (ARMOUR THYROID) 30 mg tablet 11-25 00:00: 00 Yes [id number] 15mg Take 0.5 tablets by mouth every morning. [facility] spironolact one 25 mg tablet 11-25 00:00: 00 Yes [id number] 02 25mg Take 1 tablet by mouth daily. [facility] thyroid (ARMOUR THYROID) 30 mg tablet 11-25 00:00: 00 Yes [id number] 15mg Take 0.5 tablets by mouth every morning. [facility] spironolact one 25 mg tablet 11-25 00:00: 00 Yes [id number] 02 25mg Take 1 tablet by mouth daily. [facility] thyroid (ARMOUR THYROID) 30 mg tablet 11-25 00:00: 00 Yes [id number] 15mg Take 0.5 tablets by mouth every morning. [facility] spironolact one 25 mg tablet 11-25 00:00: 00 Yes [id number] 02 25mg Take 1 tablet by mouth daily. [facility] thyroid (ARMOUR THYROID) 30 mg tablet 11-25 00:00: 00 Yes [id number] 15mg Take 0.5 tablets by mouth every morning. [facility] spironolact one 25 mg tablet 11-25 00:00: 00 Yes [id number] 02 25mg Take 1 tablet by mouth daily. [facility] thyroid (ARMOUR THYROID) 30 mg tablet 11-25 00:00: 00 Yes [id number] 15mg Take 0.5 tablets by mouth every morning. [facility] spironolact one 25 mg tablet 11-25 00:00: 00 Yes [id number] 02 25mg Take 1 tablet by mouth daily. [facility] thyroid (ARMOUR THYROID) 30 mg tablet 11-25 00:00: 00 Yes [id number] 15mg Take 0.5 tablets by mouth every morning. [facility] spironolact one 25 mg tablet 11-25 00:00: 00 Yes [id number] 02 25mg Take 1 tablet by mouth daily. [facility] thyroid (ARMOUR THYROID) 30 mg tablet 11-25 00:00: 00 Yes [id number] 15mg Take 0.5 tablets by mouth every morning. [facility] spironolact one 25 mg tablet 11-25 00:00: 00 Yes [id number] 02 25mg Take 1 tablet by mouth daily. [facility] thyroid (ARMOUR THYROID) 30 mg tablet 2020-11-25 00:00: 00 Yes [id number] 15mg Take 0.5 tablets by mouth every morning. [facility] spironolact one 25 mg tablet 11-25 00:00: 00 Yes [id number] 02 25mg Take 1 tablet by mouth daily. [facility] thyroid (ARMOUR THYROID) 30 mg tablet 11-25 00:00: 00 Yes [id number] 15mg Take 0.5 tablets by mouth every morning. [facility] spironolact one 25 mg tablet 11-25 00:00: 00 Yes [id number] 02 25mg Take 1 tablet by mouth daily. [facility] thyroid (ARMOUR THYROID) 30 mg tablet 11-25 00:00: 00 Yes [id number] 15mg Take 0.5 tablets by mouth every morning. [facility] spironolact one 25 mg tablet 11-25 00:00: 00 Yes [id number] 02 25mg Take 1 tablet by mouth daily. [facility] thyroid (ARMOUR THYROID) 30 mg tablet 11-25 00:00: 00 Yes [id number] 15mg Take 0.5 tablets by mouth every morning. [facility] spironolact one 25 mg tablet 11-25 00:00: 00 Yes [id number] 02 25mg Take 1 tablet by mouth daily. [facility] thyroid (ARMOUR THYROID) 30 mg tablet 11-25 00:00: 00 Yes [id number] 15mg Take 0.5 tablets by mouth every morning. [facility] spironolact one 25 mg tablet 11-25 00:00: 00 Yes [id number] 02 25mg Take 1 tablet by mouth daily. [facility] thyroid (ARMOUR THYROID) 30 mg tablet 11-25 00:00: 00 Yes [id number] 15mg Take 0.5 tablets by mouth every morning. [facility] spironolact one 25 mg tablet 11-25 00:00: 00 Yes [id number] 02 25mg Take 1 tablet by mouth daily. [facility] thyroid (ARMOUR THYROID) 30 mg tablet 11-25 00:00: 00 Yes [id number] 15mg Take 0.5 tablets by mouth every morning. [facility] spironolact one 25 mg tablet 0 11-25 00:00: 00 Yes [id number] 02 25mg Take 1 tablet by mouth daily. [facility] thyroid (ARMOUR THYROID) 30 mg tablet 0 11-25 00:00: 00 Yes [id number] 15mg Take 0.5 tablets by mouth every morning. [facility] spironolact one 25 mg tablet 2020-0 11-25 00:00: 00 Yes [id number] 02 25mg Take 1 tablet by mouth daily. [facility] thyroid (ARMOUR THYROID) 30 mg tablet 11-25 00:00: 00 Yes [id number] 15mg Take 0.5 tablets by mouth every morning. [facility] spironolact one 25 mg tablet 11-25 00:00: 00 Yes [id number] 02 25mg Take 1 tablet by mouth daily. [facility] thyroid (ARMOUR THYROID) 30 mg tablet 0 11-25 00:00: 00 Yes [id number] 15mg Take 0.5 tablets by mouth every morning. [facility] spironolact one 25 mg tablet 0 11-25 00:00: 00 Yes [id number] 02 25mg Take 1 tablet by mouth daily. [facility] thyroid (ARMOUR THYROID) 30 mg tablet 2020-0 11-25 00:00: 00 Yes [id number] 15mg Take 0.5 tablets by mouth every morning. [facility] spironolact one 25 mg tablet 2020-0 11-25 00:00: 00 Yes [id number] 02 25mg Take 1 tablet by mouth daily. [facility] thyroid (ARMOUR THYROID) 30 mg tablet 2020-0 11-25 00:00: 00 Yes [id number] 15mg Take 0.5 tablets by mouth every morning. [facility] spironolact one 25 mg tablet 2020-0 11-25 00:00: 00 Yes [id number] 02 25mg Take 1 tablet by mouth daily. [facility] thyroid (ARMOUR THYROID) 30 mg tablet 11-25 00:00: 00 Yes [id number] 15mg Take 0.5 tablets by mouth every morning. [facility] spironolact one 25 mg tablet 11-25 00:00: 00 Yes [id number] 02 25mg Take 1 tablet by mouth daily. [facility] thyroid (ARMOUR THYROID) 30 mg tablet 11-25 00:00: 00 Yes [id number] 15mg Take 0.5 tablets by mouth every morning. [facility] gabapentin 100 mg capsule 05-23 00:00: 00 Yes [id number] 100mg Take 1 capsule by mouth 3 (three) times daily. [facility] gabapentin 100 mg capsule 05-23 00:00: 00 Yes [id number] 100mg Take 1 capsule by mouth 3 (three) times daily. [facility] gabapentin 100 mg capsule 05-23 00:00: 00 Yes [id number] 100mg Take 1 capsule by mouth 3 (three) times daily. [facility] gabapentin 100 mg capsule 05-23 00:00: 00 Yes [id number] 100mg Take 1 capsule by mouth 3 (three) times daily. [facility] gabapentin 100 mg capsule 05-23 00:00: 00 Yes [id number] 100mg Take 1 capsule by mouth 3 (three) times daily. [facility] gabapentin 100 mg capsule 05-23 00:00: 00 Yes [id number] 100mg Take 1 capsule by mouth 3 (three) times daily. [facility] gabapentin 100 mg capsule 2020-0 05-23 00:00: 00 Yes [id number] 100mg Take 1 capsule by mouth 3 (three) times daily. [facility] gabapentin 100 mg capsule 2020-0 05-23 00:00: 00 Yes [id number] 100mg Take 1 capsule by mouth 3 (three) times daily. [facility] gabapentin 100 mg capsule 2020-0 05-23 00:00: 00 Yes [id number] 100mg Take 1 capsule by mouth 3 (three) times daily. [facility] gabapentin 100 mg capsule 2020-0 19 00:00: 00 Yes [id number] 100mg Take 1 capsule by mouth 3 (three) times daily. [facility] gabapentin 100 mg capsule 2020-0 19 00:00: 00 Yes [id number] 100mg Take 1 capsule by mouth 3 (three) times daily. [facility] gabapentin 100 mg capsule 2020-0 05-23 00:00: 00 Yes [id number] 100mg Take 1 capsule by mouth 3 (three) times daily. [facility] gabapentin 100 mg capsule 2020-0 05-23 00:00: 00 Yes [id number] 100mg Take 1 capsule by mouth 3 (three) times daily. [facility] gabapentin 100 mg capsule 2020-0 05-23 00:00: 00 Yes [id number] 100mg Take 1 capsule by mouth 3 (three) times daily. [facility] gabapentin 100 mg capsule 2020-0 05-23 00:00: 00 Yes [id number] 100mg Take 1 capsule by mouth 3 (three) times daily. [facility] gabapentin 100 mg capsule 2020-0 05-23 00:00: 00 Yes [id number] 100mg Take 1 capsule by mouth 3 (three) times daily. [facility] gabapentin 100 mg capsule 2020-0 05-23 00:00: 00 Yes [id number] 100mg Take 1 capsule by mouth 3 (three) times daily. [facility] gabapentin 100 mg capsule 2020-0 05-23 00:00: 00 Yes [id number] 100mg Take 1 capsule by mouth 3 (three) times daily. [facility] gabapentin 100 mg capsule 1-0 05-23 00:00: 00 Yes [id number] 100mg Take 1 capsule by mouth 3 (three) times daily. [facility] gabapentin 100 mg capsule 2020-0 19 00:00: 00 Yes [id number] 100mg Take 1 capsule by mouth 3 (three) times daily. [facility] gabapentin 100 mg capsule 1-0 -19 00:00: 00 Yes [id number] 100mg Take 1 capsule by mouth 3 (three) times daily. [facility] gabapentin 100 mg capsule 05-23 00:00: 00 Yes [id number] 100mg Take 1 capsule by mouth 3 (three) times daily. [facility] gabapentin 100 mg capsule 2020-05-23 00:00: 00 Yes [id number] 100mg Take 1 capsule by mouth 3 (three) times daily. [facility] gabapentin 100 mg capsule 2020-05-23 00:00: 00 Yes [id number] 100mg Take 1 capsule by mouth 3 (three) times daily. [facility] gabapentin 100 mg capsule 2020-05-23 00:00: 00 Yes [id number] 100mg Take 1 capsule by mouth 3 (three) times daily. [facility] gabapentin 100 mg capsule 2020-05-23 00:00: 00 Yes [id number] 100mg Take 1 capsule by mouth 3 (three) times daily. [facility] gabapentin 100 mg capsule 05-23 00:00: 00 Yes [id number] 100mg Take 1 capsule by mouth 3 (three) times daily. [facility] gabapentin 100 mg capsule 2020-05-23 00:00: 00 Yes [id number] 100mg Take 1 capsule by mouth 3 (three) times daily. [facility] flash glucose scanning reader (FREESTYLE YASH 14 DAY READER) [facility] 06-04 00:00: 00 Yes [id number] 1{appli catorfu l} 1 Applicator ful 4 (four) times daily. Check glucose QID as directed [facility] flash glucose sensor (FREESTYLE YASH 14 DAY SENSOR) Kit 06-04 00:00: 00 Yes [id number] 1{appli cator} 1 Applicator 4 (four) times daily. [facility] flash glucose scanning reader (FREESTYLE YASH 14 DAY READER) [facility] 06-04 00:00: 00 Yes [id number] 1{appli catorfu l} 1 Applicator ful 4 (four) times daily. Check glucose QID as directed [facility] flash glucose sensor (FREESTYLE YASH 14 DAY SENSOR) Kit 06-04 00:00: 00 Yes [id number] 1{appli cator} 1 Applicator 4 (four) times daily. [facility] flash glucose scanning reader (FREESTYLE YASH 14 DAY READER) [facility] 06-04 00:00: 00 Yes [id number] 1{appli catorfu l} 1 Applicator ful 4 (four) times daily. Check glucose QID as directed [facility] flash glucose sensor (FREESTYLE YASH 14 DAY SENSOR) Kit 06-04 00:00: 00 Yes [id number] 1{appli cator} 1 Applicator 4 (four) times daily. [facility] flash glucose scanning reader (FREESTYLE YASH 14 DAY READER) [facility] 06-04 00:00: 00 Yes [id number] 1{appli catorfu l} 1 Applicator ful 4 (four) times daily. Check glucose QID as directed [facility] flash glucose sensor (FREESTYLE YASH 14 DAY SENSOR) Kit 06-04 00:00: 00 Yes [id number] 1{appli cator} 1 Applicator 4 (four) times daily. [facility] flash glucose scanning reader (FREESTYLE YASH 14 DAY READER) [facility] 06-04 00:00: 00 Yes [id number] 1{appli catorfu l} 1 Applicator ful 4 (four) times daily. Check glucose QID as directed [facility] flash glucose sensor (FREESTYLE YASH 14 DAY SENSOR) Kit 06-04 00:00: 00 Yes [id number] 1{appli cator} 1 Applicator 4 (four) times daily. [facility] flash glucose scanning reader (FREESTYLE YASH 14 DAY READER) [facility] 06-04 00:00: 00 Yes [id number] 1{appli catorfu l} 1 Applicator ful 4 (four) times daily. Check glucose QID as directed [facility] flash glucose sensor (FREESTYLE YASH 14 DAY SENSOR) Kit 06-04 00:00: 00 Yes [id number] 1{appli cator} 1 Applicator 4 (four) times daily. [facility] flash glucose scanning reader (FREESTYLE YASH 14 DAY READER) [facility] 06-04 00:00: 00 Yes [id number] 1{appli catorfu l} 1 Applicator ful 4 (four) times daily. Check glucose QID as directed [facility] flash glucose sensor (FREESTYLE YASH 14 DAY SENSOR) Kit 06-04 00:00: 00 Yes [id number] 1{appli cator} 1 Applicator 4 (four) times daily. [facility] flash glucose scanning reader (FREESTYLE YASH 14 DAY READER) [facility] 06-04 00:00: 00 Yes [id number] 1{appli catorfu l} 1 Applicator ful 4 (four) times daily. Check glucose QID as directed [facility] flash glucose sensor (FREESTYLE YASH 14 DAY SENSOR) Kit 06-04 00:00: 00 Yes [id number] 1{appli cator} 1 Applicator 4 (four) times daily. [facility] flash glucose scanning reader (FREESTYLE YASH 14 DAY READER) [facility] 06-04 00:00: 00 Yes [id number] 1{appli catorfu l} 1 Applicator ful 4 (four) times daily. Check glucose QID as directed [facility] flash glucose sensor (FREESTYLE YASH 14 DAY SENSOR) Kit 06-04 00:00: 00 Yes [id number] 1{appli cator} 1 Applicator 4 (four) times daily. [facility] flash glucose scanning reader (FREESTYLE YASH 14 DAY READER) [facility] 06-04 00:00: 00 Yes [id number] 1{appli catorfu l} 1 Applicator ful 4 (four) times daily. Check glucose QID as directed [facility] flash glucose sensor (FREESTYLE YASH 14 DAY SENSOR) Kit 06-04 00:00: 00 Yes [id number] 1{appli cator} 1 Applicator 4 (four) times daily. [facility] flash glucose scanning reader (FREESTYLE YASH 14 DAY READER) [facility] 06-04 00:00: 00 Yes [id number] 1{appli catorfu l} 1 Applicator ful 4 (four) times daily. Check glucose QID as directed [facility] flash glucose sensor (FREESTYLE YASH 14 DAY SENSOR) Kit 06-04 00:00: 00 Yes [id number] 1{appli cator} 1 Applicator 4 (four) times daily. [facility] flash glucose scanning reader (FREESTYLE YASH 14 DAY READER) [facility] 06-04 00:00: 00 Yes [id number] 1{appli catorfu l} 1 Applicator ful 4 (four) times daily. Check glucose QID as directed [facility] flash glucose sensor (FREESTYLE YASH 14 DAY SENSOR) Kit 06-04 00:00: 00 Yes [id number] 1{appli cator} 1 Applicator 4 (four) times daily. [facility] flash glucose scanning reader (FREESTYLE YASH 14 DAY READER) [facility] 06-04 00:00: 00 Yes [id number] 1{appli catorfu l} 1 Applicator ful 4 (four) times daily. Check glucose QID as directed [facility] flash glucose sensor (FREESTYLE YASH 14 DAY SENSOR) Kit 06-04 00:00: 00 Yes [id number] 1{appli cator} 1 Applicator 4 (four) times daily. [facility] flash glucose scanning reader (FREESTYLE YASH 14 DAY READER) [facility] 06-04 00:00: 00 Yes [id number] 1{appli catorfu l} 1 Applicator ful 4 (four) times daily. Check glucose QID as directed [facility] flash glucose sensor (FREESTYLE YASH 14 DAY SENSOR) Kit 06-04 00:00: 00 Yes [id number] 1{appli cator} 1 Applicator 4 (four) times daily. [facility] flash glucose scanning reader (FREESTYLE YASH 14 DAY READER) [facility] 06-04 00:00: 00 Yes [id number] 1{appli catorfu l} 1 Applicator ful 4 (four) times daily. Check glucose QID as directed [facility] flash glucose sensor (FREESTYLE YASH 14 DAY SENSOR) Kit 06-04 00:00: 00 Yes [id number] 1{appli cator} 1 Applicator 4 (four) times daily. [facility] flash glucose scanning reader (FREESTYLE YASH 14 DAY READER) [facility] 06-04 00:00: 00 Yes [id number] 1{appli catorfu l} 1 Applicator ful 4 (four) times daily. Check glucose QID as directed [facility] flash glucose sensor (FREESTYLE YASH 14 DAY SENSOR) Kit 06-04 00:00: 00 Yes [id number] 1{appli cator} 1 Applicator 4 (four) times daily. [facility] flash glucose scanning reader (FREESTYLE YASH 14 DAY READER) [facility] 06-04 00:00: 00 Yes [id number] 1{appli catorfu l} 1 Applicator ful 4 (four) times daily. Check glucose QID as directed [facility] flash glucose sensor (FREESTYLE YASH 14 DAY SENSOR) Kit 06-04 00:00: 00 Yes [id number] 1{appli cator} 1 Applicator 4 (four) times daily. [facility] flash glucose scanning reader (FREESTYLE YASH 14 DAY READER) [facility] 06-04 00:00: 00 Yes [id number] 1{appli catorfu l} 1 Applicator ful 4 (four) times daily. Check glucose QID as directed [facility] flash glucose sensor (FREESTYLE YASH 14 DAY SENSOR) Kit 06-04 00:00: 00 Yes [id number] 1{appli cator} 1 Applicator 4 (four) times daily. [facility] flash glucose scanning reader (FREESTYLE YASH 14 DAY READER) [facility] 06-04 00:00: 00 Yes [id number] 1{appli catorfu l} 1 Applicator ful 4 (four) times daily. Check glucose QID as directed [facility] flash glucose sensor (FREESTYLE YASH 14 DAY SENSOR) Kit 06-04 00:00: 00 Yes [id number] 1{appli cator} 1 Applicator 4 (four) times daily. [facility] flash glucose scanning reader (FREESTYLE YASH 14 DAY READER) [facility] 06-04 00:00: 00 Yes [id number] 1{appli catorfu l} 1 Applicator ful 4 (four) times daily. Check glucose QID as directed [facility] flash glucose sensor (FREESTYLE YASH 14 DAY SENSOR) Kit 06-04 00:00: 00 Yes [id number] 1{appli cator} 1 Applicator 4 (four) times daily. [facility] flash glucose scanning reader (FREESTYLE YASH 14 DAY READER) [facility] 06-04 00:00: 00 Yes [id number] 1{appli catorfu l} 1 Applicator ful 4 (four) times daily. Check glucose QID as directed [facility] flash glucose sensor (FREESTYLE YASH 14 DAY SENSOR) Kit 06-04 00:00: 00 Yes [id number] 1{appli cator} 1 Applicator 4 (four) times daily. [facility] flash glucose scanning reader (FREESTYLE YASH 14 DAY READER) [facility] 06-04 00:00: 00 Yes [id number] 1{appli catorfu l} 1 Applicator ful 4 (four) times daily. Check glucose QID as directed [facility] flash glucose sensor (FREESTYLE YASH 14 DAY SENSOR) Kit 06-04 00:00: 00 Yes [id number] 1{appli cator} 1 Applicator 4 (four) times daily. [facility] flash glucose scanning reader (FREESTYLE YASH 14 DAY READER) [facility] 06-04 00:00: 00 Yes [id number] 1{appli catorfu l} 1 Applicator ful 4 (four) times daily. Check glucose QID as directed [facility] flash glucose sensor (FREESTYLE YASH 14 DAY SENSOR) Kit 06-04 00:00: 00 Yes [id number] 1{appli cator} 1 Applicator 4 (four) times daily. [facility] flash glucose scanning reader (FREESTYLE YASH 14 DAY READER) [facility] 06-04 00:00: 00 Yes [id number] 1{appli catorfu l} 1 Applicator ful 4 (four) times daily. Check glucose QID as directed [facility] flash glucose sensor (FREESTYLE YASH 14 DAY SENSOR) Kit 06-04 00:00: 00 Yes [id number] 1{appli cator} 1 Applicator 4 (four) times daily. [facility] flash glucose scanning reader (FREESTYLE YASH 14 DAY READER) [facility] 06-04 00:00: 00 Yes [id number] 1{appli catorfu l} 1 Applicator ful 4 (four) times daily. Check glucose QID as directed [facility] flash glucose sensor (FREESTYLE YASH 14 DAY SENSOR) Kit 06-04 00:00: 00 Yes [id number] 1{appli cator} 1 Applicator 4 (four) times daily. [facility] flash glucose scanning reader (FREESTYLE YASH 14 DAY READER) [facility] 06-04 00:00: 00 Yes [id number] 1{appli catorfu l} 1 Applicator ful 4 (four) times daily. Check glucose QID as directed [facility] flash glucose sensor (FREESTYLE YASH 14 DAY SENSOR) Kit 06-04 00:00: 00 Yes [id number] 1{appli cator} 1 Applicator 4 (four) times daily. [facility] flash glucose scanning reader (FREESTYLE YASH 14 DAY READER) [facility] 06-04 00:00: 00 Yes [id number] 1{appli catorfu l} 1 Applicator ful 4 (four) times daily. Check glucose QID as directed [facility] flash glucose sensor (FREESTYLE YASH 14 DAY SENSOR) Kit 06-04 00:00: 00 Yes [id number] 1{appli cator} 1 Applicator 4 (four) times daily. [facility] flash glucose scanning reader (FREESTYLE YASH 14 DAY READER) [facility] 06-04 00:00: 00 Yes [id number] 1{appli catorfu l} 1 Applicator ful 4 (four) times daily. Check glucose QID as directed [facility] flash glucose sensor (FREESTYLE YASH 14 DAY SENSOR) Kit 06-04 00:00: 00 Yes [id number] 1{appli cator} 1 Applicator 4 (four) times daily. [facility] Adult Aspirin Regimen 81 mg tablet,mary yed release Take 1 tablet every day by oral route. Adult Aspirin Regimen 81 mg tablet,mary yed release Take 1 tablet every day by oral route. No 1 Q1D Adult Aspirin Regimen 81 mg tablet,del ayed release Take 1 tablet every day by oral route. [facility] BD Sneha 2nd Gen Pen Needle 32 gauge x 5/32" use as directed 4 times daily BD Sneha 2nd Gen Pen Needle 32 gauge x 5/32" use as directed 4 times daily No BD Sneha 2nd Gen Pen Needle 32 gauge x 5/32" use as directed 4 times daily [facility] bumetanide 1 mg tablet [...] 1 CAPSULE BY MOUTH ONCE A WEEK [facility] Farxiga 5 mg tablet TAKE 1 TABLET BY MOUTH ONCE DAILY FOR 30 DAYS Farxiga 5 mg tablet TAKE 1 TABLET BY MOUTH ONCE DAILY FOR 30 DAYS No Farxiga 5 mg tablet TAKE 1 TABLET BY MOUTH ONCE DAILY FOR 30 DAYS [facility] FreeStyle Yash 14 Day [place] FreeStyle Yash 14 Day [place] No FreeStyle Yash 14 Day [place] [facility] FreeStyle Yash 14 Day Sensor FreeStyle Yash 14 Day Sensor No FreeStyle Yash 14 Day Sensor [facility] FreeStyle Yash 14 Day Sensor kit USE DAILY BUT CHANGE EVERY 14 DAYS FreeStyle Yash 14 Day Sensor kit USE DAILY BUT CHANGE EVERY 14 DAYS No FreeStyle Yash 14 Day Sensor kit USE DAILY BUT CHANGE EVERY [address] [facility] gabapentin 100 mg capsule TAKE 1 CAPSULE BY MOUTH two times daily gabapentin 100 mg capsule TAKE 1 CAPSULE BY MOUTH two times daily No gabapentin 100 mg capsule TAKE 1 CAPSULE BY MOUTH two times daily [facility] COMPARATOR OPERATOR Thyroid 30 mg tablet TAKE 1 TABLET BY MOUTH ONCE DAILY FOR 30 DAYS COMPARATOR OPERATOR Thyroid 30 mg tablet TAKE 1 TABLET BY MOUTH ONCE DAILY FOR 30 DAYS No COMPARATOR OPERATOR Thyroid 30 mg tablet TAKE 1 TABLET BY MOUTH ONCE DAILY FOR 30 DAYS [facility] OneTouch Verio test strips OneTouch Verio test strips No OneTouch Verio test strips [facility] Ozempic 0.25 mg or [...] by subcutaneo us route for [address]. [facility] Tradjenta 5 mg tablet TAKE 1 TABLET BY MOUTH ONCE DAILY IN THE MORNING Tradjenta 5 mg tablet TAKE 1 TABLET BY MOUTH ONCE DAILY IN THE MORNING No Tradjenta 5 mg tablet TAKE 1 TABLET BY MOUTH ONCE DAILY IN THE MORNING [facility] Vitamin D2 Vitamin D2 No Vitamin D2 [facility] Vitamin D3 1000 IU DAILY Vitamin D3 1000 IU DAILY No Vitamin D3 1000 IU DAILY [facility] Vital Signs Vital Name Observation Time Observation Value Comments S nicolealfredo Systolic blood pressure 2022-02-23 20:45:00 105 mm[Hg] [place] [facility] Diastolic blood pressure 2022-02-23 20:45:00 74 mm[Hg] [place] [facility] Heart rate 2022-02-23 20:45:00 77 /min Unive [facility] Body height 2022-02-23 20:45:00 157.5 cm [facility] Body weight 2022-02-23 20:45:00 48.081 kg [facility] BMI 2022-02-23 20:45:00 19.39 kg/m2 [facility] Oxygen saturation in Arterial blood by Pulse oximetry 2022-02-23 20:45:00 99 /min [facility] Systolic blood pressure 2022-01-18 22:23:00 149 mm[Hg] [facility] Diastolic blood pressure 2022-01-18 22:23:00 84 mm[Hg] [facility] Heart rate 2022-01-18 22:23:00 68 /min [facility] Body weight 2022-01-18 22:23:00 50.803 kg [facility] BMI 2022-01-18 22:23:00 20.49 kg/m2 [facility] Oxygen saturation in Arterial blood by Pulse oximetry 2022-01-18 22:23:00 94 /min [facility] Systolic blood pressure 2021-09-18 18:29:00 156 mm[Hg] [facility] Diastolic blood pressure 2021-09-18 18:29:00 85 mm[Hg] [facility] Heart rate 2021-09-18 18:29:00 69 /min [facility] Res[facility] 2021-09-18 18:29:00 16 /min [facility] Body weight 2021-09-18 18:29:00 [facility] O[facility] saturation in Arterial blood by Pulse oximetry 2021-09-18 18:29:00 97 /min [facility] BP Diastolic 2020-07-10 00:00:00 86 mm[Hg] [facility] Height 2020-07-10 00:00:00 62 [in_i] [facility] BMI (Body Mass Index) 2020-07-10 00:00:00 33.5 kg/m2 [facility] BP Systolic 2020-07-10 00:00:00 137 mm[Hg] [facility] Body Weight 2020-07-10 00:00:00 183 [lb_av] [facility] BP Diastolic 2020-02-07 00:00:00 78 mm[Hg] [facility] Height 2020-02-07 00:00:00 62 [in_i] [facility] BMI (Body Mass Index) 2020-02-07 00:00:00 33 kg/m2 [facility] BP Systolic 2020-02-07 00:00:00 122 mm[Hg] [facility] age [facility] Body Weight 2020-02-07 00:00:00 180.2 [lb_av] [facility] BP Diastolic 2019-12-24 00:00:00 78 mm[Hg] [facility] Height 2019-12-24 00:00:00 62 [in_i] [facility] BMI (Body Mass Index) 2019-12-24 00:00:00 31.5 kg/m2 [facility] BP Systolic 2019-12-24 00:00:00 110 mm[Hg] [facility] Body Weight 2019-12-24 00:00:00 172 [lb_av] [facility] Procedures Procedure Date / Time Performed Performing Clinician Source CONSENT/REFUSAL FOR DIAGNOSIS AND TREATMENT 2022-06-23 20:02:57 Doctor Unassigned, [place] [facility] PHYSICIAN ORDERS 2022-05-14 06:01:00 Doctor Unas signed, [place] HB CREATININE SERUM/BLOOD FOR IMAGING 2022-04-02 21:10:00 Faith Michel [facility] ABDOMEN PELVIS W CONTRAST 2022-04-02 20:43:00 Faith Michel [facility] CBC WITH DIFF 2022-03-29 22:37:00 [facility] 2022-03-29 22:23:51 Doctor Unassigned, [place] ECG 12-LEAD 2021-09-18 21:45:54 [facility] CONSENT/REFUSAL FOR DIAGNOSIS AND TREATMENT 2021-06-23 18:30:15 Doctor Unassigned, [place] [facility] ASSIGNMENT OF BENEFITS 2021-06-23 18:30:01 Doctor Unassigned, [place] [facility] [id number] 2021-04-21 00:00:00 [facility] Plan of [facility] Planned Activity Planned Date Details Comments Source Diagnostic Test Pending 2020-07-10 00:00:00 glucose, fingerstick, blood [code = glucose, fingerstick, blood] [facility] Diagnostic Test Pending 2020-07-10 00:00:00 hemoglobin A1C, fingerstick [code = hemoglobin A1C, fingerstick] [facility] Encounters Start Date/Time End Date/Time Encounter Type Admission Type Attending [facility] Care Facility Care Department Encounter ID Source 2022-07-15 12:08:[address] [facility] [id number] [facility] 2022-07-14 13:01:[address] [facility] [id number] [facility] 2022-04-05 13:49:[address] [facility] [id number] [facility] 2021-09-22 17:34:[address] [facility] [id number] [facility] 2021-09-18 13:11:[address] [facility] [id number] [facility] 2021-09-17 13:49:[address] [facility] [id number] [facility] 2021-09-16 14:24:[address] [facility] [id number] [facility] 2021-04-02 13:46:27 Outpatient 3 [id number] E[facility] PUL [id number] [facility] 2021-04-02 13:45:28 Outpatient 3 [id number] ENC[facility] PUL [id number] [facility] 2021-04-02 13:44:46 Outpatient 3 [id number] ENCPL PUL [id number] [facility] 2021-04-02 13:43:23 Outpatient 3 [id number] ENCPL REF [id number] [facility] 2021-01-05 19:43:30 Outpatient R GAYATRI LOBO [facility] [id number] [facility] 2021-01-05 13:14:53 Emergency [facility] [id number] [facility] 2023-01-05 17:18:55 2023-01-05 17:18:[address] [facility] [id number] Jude Pulliam 2022-12-31 00:00:00 2022-12-31 00:00:00 Outpatient GC_GCBZW_Ka diyala_S [facility] [id number] [facility] 2022-10-19 14:14:12 2022-10-19 14:14:12 Outpatient [facility] [id number] Jude Pulliam 2022-09-22 11:09:00 2022-09-25 17:32:00 Inpatient ENA BUSH [facility] [id number] Mauricio Santanay Mauricio garcia 2022-09-03 09:35:23 2022-09-03 23:59:00 Hospital Encounter Faith Michel [facility] 1..840.114 350.1.13.10 4.2.7.2.686 [id number] [facility] 2022-09-03 08:49:31 2022-09-03 09:34:00 Hospital Encounter [facility] 1..840.114 350.1.13.10 4.2.7.2.686 [id number] [facility] 2022-09-03 00:00:00 2022-09-03 09:34:00 Outpatient Sagar MICHEL, FAITH [facility] [id number] [facility] 2022-08-24 16:45:00 2022-08-24 17:00:00 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, 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 [facility] 1..840.114 350.1.13.10 4.2.7.2.686 [id number] [facility] 2022-08-24 16:45:00 2022-08-24 16:45:00 Outpatient MARCIANO NIXON [facility] [id number] [facility] 2022-06-25 00:00:00 2022-06-25 00:00:00 Outpatient FAITH GUAMAN [facility] [id number] [facility] 2022-06-23 15:15:00 2022-06-23 15:30:00 Life Sciences Teacher Visit Po, 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 Marciano Elliott [facility] 1.2.840.114 350.1.13.10 4.2.7.2.686 [id number] [facility] 2022-06-23 15:15:00 2022-06-23 15:15:00 Outpatient MARCIANO NIXON [facility] [id number] [facility] 2022-06-23 00:00:00 2022-06-23 00:00:00 Orders Only Doctor Unassigned, [place] [facility] 1.2840.114 350.1.13.10 4.2.7.2.686 [id number] [facility] 2022-05-14 16:30:00 2022-05-14 16:45:00 Life Sciences Teacher Visit [facility], 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 Grzegorz Haynes [facility] 1.2.840.114 350.1.13.10 4.2.7.2.686 [id number] [facility] 2022-05-14 16:30:00 2022-05-14 16:30:00 Outpatient Sagar [facility] [id number] [facility] 2022-05-14 00:00:00 2022-05-14 00:00:00 Orders Only Doctor Unassigned, [place] [facility] 1.2.840.114 350.1.13.10 4.2.7.2.686 [id number] [facility] 2022-04-12 14:30:00 2022-04-12 14:45:00 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, 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 Grzegorz Haynes [facility] 1..840.114 350.1.13.10 4.2.7.2.686 [id number] [facility] 2022-04-12 14:30:00 2022-04-12 14:30:00 Outpatient R GRZEGORZ HAYNES [facility] [id number] [facility] 2022-04-12 00:00:00 2022-04-12 00:00:00 Outpatient R RADIOLOGY [facility] [id number] [facility] 2022-04-05 13:48:00 2022-04-05 19:26:00 Emergency E KANE GARCIA [id number] [facility] 2022-04-05 13:25:00 2022-04-05 13:25:00 Outpatient R RADIOLOGY [facility] [id number] [facility] 2022-04-02 13:33:26 2022-04-02 23:59:00 Outpatient R AMRILU [facility] [id number] [facility] 2022-04-02 13:33:26 2022-04-02 23:59:00 Hospital Encounter [place] 28760.840.114 350.1.13.10 4.2.7.2.686 [id number] [facility] 2022-03-29 16:30:00 2022-03-29 16:45:00 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, 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 [place] [address]..840.114 350.1.13.10 4.2.7.2.686 [id number] [facility] 2022-03-29 16:30:00 2022-03-29 16:30:00 Outpatient R MARILU [facility] [id number] [facility] 2022-03-29 00:00:00 2022-03-29 00:00:00 Orders Only Doctor Unassigned, [place] [facility] 1..840.114 350.1.13.10 4.2.7.2.686 [id number] [facility] 2022-03-26 13:30:00 2022-03-26 13:30:00 Outpatient R ODESSA ROBERTO [facility] [id number] [facility] 2022-02-23 14:30:00 2022-02-23 15:08:25 Outpatient R ODESSA ROBERTO [facility] [id number] [facility] 2022-02-23 14:30:00 2022-02-23 15:08:25 [facility] 1..840.114 350.1.13.10 4.2.7.2.686 [id number] [facility] 2022-02-15 00:00:00 2022-02-15 00:00:00 Patient Secure Msg Doctor Unassigned, [place] [facility] 1..840.114 350.1.13.10 4.2.7.2.686 [id number] [facility] 2022-01-18 16:30:00 2022-01-18 16:38:58 Outpatient R BENSON CASTRO HOWARD [facility] [id number] [facility] 2022-01-18 16:30:00 2022-01-18 16:38:58 Office Visit Odessa Roberto Howard Gene [facility] 1.2.840.114 350.1.13.10 4.2.7.2.686 [id number] [facility] 2021-12-11 00:00:00 2021-12-11 00:00:00 Benson Roberson [facility] 1.2.840.114 350.1.13.10 4.2.7.2.686 [id number] [facility] 2021-11-30 15:57:43 2021-11-30 23:59:00 Outpatient R RADIOLOGY [facility] [id number] [facility] 2021-11-30 15:57:43 2021-11-30 23:59:00 Hospital Encounter Radiology [facility] 1.2.840.114 350.1.13.10 4.2.7.2.686 [id number] [facility] 2021-10-01 11:00:00 2021-10-01 23:59:00 Outpatient CHALO CHRISTIANSON [facility] CAR [id number] [facility] 2021-09-18 13:40:00 2021-09-18 14:48:02 Office Visit Chalo Christianson [facility] [id number] 1.2.840.114 350.1.13.58 9.2.7.2.686 [id number] [facility] 2021-07-06 16:36:00 2021-07-07 15:54:00 Outpatient ANG ANNE ALEKSANDER CAR [id number] [facility] 2021-06-23 13:45:00 2021-06-23 14:00:00 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, 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 Grzegorz Haynes [facility] 1.2.840.114 350.1.13.10 4.2.7.2.686 [id number] [facility] 2021-06-23 13:45:00 2021-06-23 13:45:00 Outpatient GRZEGORZ GRANDE [facility] [id number] [facility] 2021-06-23 00:00:00 2021-06-23 00:00:00 Orders Only Doctor Unassigned, [place] [facility] 1.2.840.114 350.1.13.10 4.2.7.2.686 [id number] [facility] 2021-04-06 20:57:00 2021-04-25 12:25:00 Inpatient 3 Stephen Ojeda ENCPL PUL [id number] [facility] [place] [facility] 2021-02-23 00:00:00 2021-02-23 00:00:00 Telephone Francisco [facility] 1.2.840.114 350.1.13.10 4.2.7.2.686 [id number] [facility] 2021-02-09 00:00:00 2021-02-09 00:00:00 [facility] 1.2.840.114 350.1.13.10 4.2.7.2.686 [id number] [facility] 2021-01-26 11:23:08 2021-01-26 11:43:42 [facility] 1.2.840.114 350.1.13.10 4.2.7.2.686 [id number] [facility] 2021-01-26 11:20:00 2021-01-26 11:43:42 [facility] [id number] [facility] 2021-01-26 11:20:00 2021-01-26 11:43:42 [facility] [id number] [facility] 2021-01-26 11:20:00 2021-01-26 11:20:00 [facility] [id number] [facility] 2021-01-22 07:50:27 2021-01-22 08:43:54 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, 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 Marciano Elliott A [facility] 1.2.840.114 350.1.13.10 4.2.7.2.686 [id number] [facility] 2021-01-22 07:45:00 2021-01-22 08:43:54 Outpatient R MARCIANO ELLIOTT [facility] [id number] [facility] 2021-01-22 07:45:00 2021-01-22 07:45:00 Outpatient R MARCIANO ELLIOTT [facility] [id number] [facility] 2020-12-25 00:00:00 2020-12-25 00:00:00 Benson Roberson [facility] 1.2.840.114 350.1.13.10 4.2.7.2.686 [id number] [facility] 2020-12-23 00:00:00 2020-12-23 00:00:00 Telephone Sarah Espinal [facility] 1.2.840.114 350.1.13.10 4.2.7.2.686 [id number] [facility] 2020-12-23 00:00:00 2020-12-23 00:00:00 Patient Secure Msg Doctor Unassigned, [place] [facility] 1.2.840.114 350.1.13.10 4.2.7.2.686 [id number] [facility] 2020-12-17 07:54:57 2020-12-17 23:59:00 Hospital Encounter Radiology [facility] 1.2.840.114 350.1.13.10 4.2.7.2.686 [id number] [facility] 2020-12-17 00:00:00 2020-12-17 00:00:00 Outpatient R RADIOLOGY [facility] [id number] [facility] 2020-11-25 13:48:41 2020-11-25 14:12:26 Office Visit Danya Singh [facility] Professio nal Building 1.2.840.114 350.1.13.10 4.2.7.2.686 [id number] [facility] 2020-11-25 13:40:00 2020-11-25 13:40:00 Outpatient R TAHIRA SINGHMALLORY [facility] [id number] [facility] 2020-11-14 00:00:00 2020-11-14 00:00:00 [facility] 1.2.840.114 350.1.13.10 4.2.7.2.686 [id number] [facility] 2020-11-14 00:00:00 2020-11-14 00:00:00 [facility] 1.2.840.114 350.1.13.10 4.2.7.2.686 [id number] [facility] 2020-11-12 12:08:00 2020-11-12 12:43:00 Surgery Gayatri Lobo [facility] [place] 1.2.840.114 350.1.13.10 4.2.7.2.686 [id number] [facility] 2020-11-12 12:08:00 2020-11-12 12:43:00 Surgery Gayatri Lobo [facility] [place] 1.2.840.114 350.1.13.10 4.2.7.2.686 [id number] [facility] 2020-11-12 10:46:00 2020-11-12 12:35:00 Hospital Encounter Tiffdarianimisha karolyn Gayatri Luna [facility] [place] 1.2.840.114 350.1.13.10 4.2.7.2.686 [id number] [facility] 2020-11-12 10:46:00 2020-11-12 12:35:00 Hospital Encounter Delma karolyn Gayatri Luna [facility] [place] 1.2.840.114 350.1.13.10 4.2.7.2.686 [id number] [id number] [facility] 2020-11-11 08:12:07 2020-11-11 08:27:07 Laboratory Only Only, [facility] 1.2.840.114 350.1.13.10 4.2.7.2.686 [id number] [facility] 2020-11-11 08:12:07 2020-11-11 08:27:07 Laboratory Only Only, [facility] 1.2.840.114 350.1.13.10 4.2.7.2.686 [id number] [facility] 2020-11-11 08:15:00 2020-11-11 08:15:00 Outpatient R [facility] [id number] [facility] 2020-10-24 00:00:00 2020-10-24 00:00:00 Orders Only Doctor Unassigned, Seba [place]ai [facility] 1.2.840.114 350.1.13.10 4.2.7.2.686 [id number] [facility] 2020-10-08 18:34:00 2020-10-08 22:22:00 Emergency Mali Rosado [facility] 1.2.840.114 350.1.13.10 4.2.7.2.686 [id number] [facility] 2020-10-07 00:00:00 2020-10-07 00:00:00 Telephone Benson Castro [facility] 1.84.114 350.1.13.10 4.2.7.2.686 [id number] 092 [id number] [facility] 2020-10-03 00:00:00 2020-10-03 00:00:00 Patient Secure Danya Bob [facility] 1..114 350.1.13.10 4.2.7.2.686 [id number] [id number] [facility] 2020-10-01 10:00:00 2020-10-01 10:00:00 Outpatient R EMMANUELLE SCHULTE [facility] [id number] [facility] 2020-10-01 00:00:00 2020-10-01 00:00:00 Orders Only Doctor Unassigned, [place] [facility] 1..114 350.1.13.10 4.2.7.2.686 [id number] [id number] [facility] 2020-09-26 08:11:48 2020-09-26 08:26:48 Laboratory Only Only, Adc Test Latricia Montana [facility] 1..114 350.1.13.10 4.2.7.2.686 [id number] [facility] 2020-09-26 08:00:00 2020-09-26 08:00:00 Outpatient R [facility] [id number] [facility] 2020-09-23 11:10:57 2020-09-23 11:46:21 Office Visit Benson Castro [facility] 1..114 350.1.13.10 4.2.7.2.686 [id number] 092 [id number] [facility] 2020-09-23 11:10:57 2020-09-23 11:46:21 Office Visit Benson Castro [facility] Building 1.2.840.114 350.1.13.10 4.2.7.2.686 [id number] 2020-09-23 11:00:00 2020-09-23 11:00:00 Outpatient BENSON CASEY HOWARD [facility] [id number] [facility] 2020-09-17 00:00:00 2020-09-17 00:00:00 Orders Only Doctor Unassigned, [place] [facility] 1.2.84.114 350.1.13.10 4.2.7.2.686 [id number] [id number] [facility] 2020-08-27 11:24:21 2020-08-27 11:54:21 Office Visit Latasha Fernandez [facility] 1.2.840.114 350.1.13.10 4.2.7.2.686 [id number] [facility] 2020-08-27 11:30:00 2020-08-27 11:30:00 Outpatient LATASHA MAZARIEGOS STRARITashia [facility] [id number] [facility] 2020-08-27 00:00:00 2020-08-27 00:00:00 Telephone Tahira Singhmallory [facility] 1.2.840.114 350.1.13.10 4.2.7.2.686 [id number] [id number] [facility] 2020-08-25 14:02:06 2020-08-25 14:32:42 Office Visit FranciscoTahiramallory [facility] 1.2.840.114 350.1.13.10 4.2.7.2.686 [id number] [id number] [facility] 2020-08-25 14:00:00 2020-08-25 14:00:00 Outpatient DANYA CONTI [facility] [id number] [facility] 2020-08-25 00:00:00 2020-08-25 00:00:00 Orders Only Doctor Unassigned, Seba [place]ai [facility] 1..840.114 350.1.13.10 4.2.7.2.686 [id number] [id number] [facility] 2020-08-19 00:00:00 2020-08-19 00:00:00 Telephone Benson Castro [facility] 1..840.114 350.1.13.10 4.2.7.2.686 [id number] [facility] 2020-08-13 14:00:00 2020-08-13 14:00:00 Outpatient LATASHA MAZARIEGOS STRAHIL [facility] [id number] [facility] 2020-07-31 15:26:34 2020-07-31 23:59:00 [facility] Encounter Benson Castro [facility] 1..840.114 350.1.13.10 4.2.7.2.686 [id number] [facility] 2020-07-31 15:26:34 2020-07-31 23:59:00 Outpatient BENSON CASEY HOWARD [facility] [id number] [facility] 2020-07-31 00:00:00 2020-07-31 00:00:00 Outpatient BENSON CASEY HOWARD [facility] [id number] [facility] 2020-07-30 00:00:00 2020-07-30 00:00:00 Telephone Benson Castro [facility] 1..840.114 350.1.13.10 4.2.7.2.686 [id number] [id number] [facility] 2020-07-29 00:00:00 2020-07-29 00:00:00 [facility] 1.2.840.114 350.1.13.10 4.2.7.2.686 [id number] [facility] 2020-07-28 08:21:39 2020-07-28 08:36:39 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, 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 Francisco [facility] 1.2.840.114 350.1.13.10 4.2.7.2.686 [id number] [facility] 2020-07-28 08:30:00 2020-07-28 08:30:00 Outpatient R FRANCISCO [facility] [id number] [facility] 2020-07-28 00:00:00 2020-07-28 00:00:00 Telephone Benson Castro [facility] 1.2.840.114 350.1.13.10 4.2.7.2.686 [id number] 092 [id number] [facility] 2020-07-15 00:00:00 2020-07-15 00:00:00 Telephone Benson Castro [facility] 1.2.840.114 350.1.13.10 4.2.7.2.686 [id number] 092 [id number] [facility] 2020-07-14 14:38:23 2020-07-14 15:12:09 [facility] 1.2.840.114 350.1.13.10 4.2.7.2.686 [id number] [facility] 2020-07-14 14:40:00 2020-07-14 14:40:00 Outpatient R DANYA SINGH [facility] [id number] [facility] 2020-07-12 01:24:00 2020-07-12 01:24:00 Outpatient Daniel_T VFP VFP [id number] [facility] Family [facility] 2020-07-10 00:00:00 2020-07-10 00:00:00 Samm Alexander MD: [id number], [address], [place] [address] , Ph. Daniel_T VFP [place] - [facility] - _ROLANDA_René ow Kake [id number] [facility] e 2020-07-01 12:13:16 2020-07-01 12:28:16 Life Sciences Teacher Visit [facility] Sleep Lab Latasha Fernandez [facility] 1.840.114 350.1.13.10 4.2.7.2.686 [id number] [facility] 2020-07-01 12:00:00 2020-07-01 12:00:00 Outpatient R LATASHA FERNANDEZ STRARITashia [facility] [id number] [facility] 2020-06-27 11:33:44 2020-06-27 11:48:44 Laboratory Only Only, Adc Test Grzegorz Haynes [facility] 1.840.114 350.1.13.10 4.2.7.2.686 [id number] [facility] 2020-06-27 10:30:00 2020-06-27 10:30:00 Outpatient R [facility] [id number] [facility] 2020-06-27 00:00:00 2020-06-27 00:00:00 Orders Only Doctor Unassigned, [place] [facility] .840.114 350.1.13.10 4.2.7.2.686 [id number] [id number] [facility] 2020-06-20 00:00:00 2020-06-20 00:00:00 Patient [facility] 1.2.840.114 350.1.13.10 4.2.7.2.686 [id number] [facility] 2020-06-19 14:00:00 2020-06-19 14:00:00 [facility] [id number] [facility] 2020-06-15 00:00:00 2020-06-15 00:00:00 [facility] 1.2.840.114 350.1.13.10 4.2.7.2.686 [id number] [facility] 2020-06-13 10:48:23 2020-06-13 23:59:00 [facility] 1.2.840.114 350.1.13.10 4.2.7.2.686 [id number] [facility] 2020-06-13 10:47:50 2020-06-13 11:02:50 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, 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 Francisco [facility] 1.2.840.114 350.1.13.10 4.2.7.2.686 [id number] [facility] 2020-06-13 09:10:33 2020-06-13 10:22:02 [facility] 1.2.840.114 350.1.13.10 4.2.7.2.686 [id number] [facility] 2020-06-13 09:20:00 2020-06-13 09:20:00 Outpatient DANYA CONTI [facility] [id number] [facility] 2020-06-09 00:00:00 2020-06-09 00:00:00 Telephone Benson Castro [facility] 1.2.840.114 350.1.13.10 4.2.7.2.686 [id number] [facility] 2020-06-04 00:00:00 2020-06-04 00:00:00 Outpatient Sagar MATTHEW, BENSON CASTROBENSON [facility] [id number] [facility] 2020-05-28 00:00:00 2020-05-28 00:00:00 Telephone Benson Castro [facility] 1.2.840.114 350.1.13.10 4.2.7.2.686 [id number] [facility] 2020-05-27 00:00:00 2020-05-27 00:00:00 Patient Outreach Jose Raul Li [facility] 1.2.840.114 350.1.13.10 4.2.7.2.686 [id number] [facility] 2020-05-23 10:49:27 2020-05-23 11:04:27 Life Sciences Teacher Visit 2, Adc Lab Benson Castro [facility] 1.2.840.114 350.1.13.10 4.2.7.2.686 [id number] [facility] 2020-05-23 08:19:24 2020-05-23 10:59:14 Office Visit Benson Castro [facility] 1.2.840.114 350.1.13.10 4.2.7.2.686 [id number] [facility] 2020-05-23 08:40:00 2020-05-23 08:40:00 Outpatient BENSON CASEY HOWARD [facility] [id number] [facility] 2020-05-19 00:00:00 2020-05-19 00:00:00 Orders Only Doctor Unassigned, [place] [facility] 1..840.114 350.1.13.10 4.2.7.2.686 [id number] [id number] [facility] 2020-04-10 07:43:00 2020-04-10 07:43:00 Outpatient Daniel_T VFP VFP [id number] [facility] 2020-04-09 08:19:39 2020-04-09 08:34:39 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, 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 Marciano Elliott [facility] 1..840.114 350.1.13.10 4.2.7.2.686 [id number] [facility] 2020-04-09 08:15:00 2020-04-09 08:15:00 Outpatient MARCIANO NIXON [facility] [id number] [facility] 2020-04-09 00:00:00 2020-04-09 00:00:00 Orders Only Doctor Unassigned, [place] [facility] 1..840.114 350.1.13.10 4.2.7.2.686 [id number] [facility] 2020-03-14 03:25:00 2020-03-14 03:25:00 Outpatient Daniel_T VFP VFP [id number] [facility] 2020-03-01 01:02:00 2020-03-01 01:02:00 Outpatient Daniel_T VFP VFP [id number] [facility] 2020-02-11 07:53:00 2020-02-11 07:53:00 Outpatient Daniel_T VFP VFP [id number] [facility] 2020-02-07 00:00:00 2020-02-07 00:00:00 Samm Alexander MD: [id number] [facility] [address], [place] [address] , Ph. Benjamin_T [facility] [place] - [facility] - _Mary crawley [id number] [facility] 2020-01-08 08:00:00 2020-01-08 08:00:00 Outpatient MARCIANO NIXON [facility] [id number] [facility] 2020-01-08 07:39:55 2020-01-08 07:54:55 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, 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 [facility] 1.840.114 350.1.13.10 4.2.7.2.686 [id number] [facility] 2020-01-08 00:00:00 2020-01-08 00:00:00 Orders Only Doctor Unassigned, [place] [facility] 1.840.114 350.1.13.10 4.2.7.2.686 [id number] [facility] 2019-12-31 02:04:00 2019-12-31 02:04:[address] Benjamin_[facility]aco [facility] [id number] [facility] 2019-12-24 00:00:00 2019-12-24 00:00:00 Samm Alexander MD: [id number] [facility] [address], [place] [address] , Ph. Benjamin_T [facility] [place] [facility] - _Mary el [id number] [facility] 2019-12-18 07:41:51 2019-12-18 07:56:51 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, 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 1.840.114 350.1.13.10 4.2.7.2.686 [id number] [facility] 2019-12-18 07:45:00 2019-12-18 07:45:00 Outpatient R AVIELIGIOFLEX TIMSANDIP [facility] [id number] [facility] 2019-12-13 04:08:00 2019-12-13 04:08:00 Outpatient Daniel_T VFP VFP [id number] [facility] 2019-12-03 03:40:00 2019-12-03 03:40:00 Outpatient Daniel_T VFP VFP [id number] [facility] 2019-11-08 13:23:04 2019-11-08 13:38:04 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, 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 Marciano Elliott [facility] 1..840.114 350.1.13.10 4.2.7.2.686 [id number] [facility] 2019-11-08 13:15:00 2019-11-08 13:15:00 Outpatient R PAOLATez MARCIANO [facility] [id number] [facility] 2019-11-08 00:00:00 2019-11-08 00:00:00 Orders Only Doctor Unassigned, [place] [facility] 1..840.114 350.1.13.10 4.2.7.2.686 [id number] [id number] [facility] 2019-11-07 10:47:00 2019-11-07 10:47:00 Outpatient Daniel_T VFP VFP [id number] [facility] 2019-10-04 10:10:00 2019-10-04 23:59:00 Hospital Encounter Marciano Elliott [facility] 1.840.114 350.1.13.10 4.2.7.2.686 [id number] [facility] 2019-10-04 10:15:33 2019-10-04 10:30:33 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, 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 Marciano Elliott A [facility] 1.2.840.114 350.1.13.10 4.2.7.2.686 [id number] [facility] 2019-10-04 00:00:00 2019-10-04 00:00:00 Outpatient R MARCIANO ELLIOTT [facility] [id number] [facility] 2019-08-23 16:12:00 2019-09-06 01:47:20 Inpatient HCAPM KEI [id number] [facility] 2019-08-03 10:30:00 2019-08-03 10:30:00 Outpatient R MATTI VALENTINEN [facility] [id number] [facility] 2019-08-03 09:58:47 2019-08-03 10:13:47 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, 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 [facility] 1.2.840.114 350.1.13.10 4.2.7.2.686 [id number] [facility] 2019-08-03 00:00:00 2019-08-03 00:00:00 Orders Only Doctor Unassigned, [place] [facility] 1.2.840.114 350.1.13.10 4.2.7.2.686 [id number] [facility] 2019-06-06 00:00:00 2019-06-06 00:00:00 Transition of Care Yazmin Garber 1.2.840.114 350.1.13.10 4.2.7.2.686 [id number] [facility] 2019-06-03 20:41:23 2019-06-05 12:45:00 Inpatient X SUSANNAH WNAG [facility] [id number] [facility] 2019-06-03 20:41:23 2019-06-05 12:45:00 Hospital Encounter Sb Escobar Adnan [facility] 1.2.840.114 350.1.13.10 4.2.7.2.686 [id number] [facility] 2019-06-03 20:41:23 2019-06-03 20:41:23 Emergency X SB ESCOBAR [facility] ERT [id number] [facility] 2019-04-27 02:15:54 2019-04-27 06:35:00 Emergency [facility] 1.2.840.114 350.1.13.10 4.2.7.2.686 [id number] [facility] 2019-04-26 22:52:50 2019-04-27 01:20:00 Emergency X SIVA ALVAREZ [facility] ERT [id number] [facility] 2019-04-26 22:52:50 2019-04-27 01:20:00 Emergency X KEKE SIVA [facility] ERT [id number] [facility] 2019-04-26 22:52:50 2019-04-27 01:20:00 Emergency Siva Alvarez [facility] 1.2.840.114 350.1.13.10 4.2.7.2.686 [id number] [facility] Results Test Description Test Time Test Comments Results Result Co mments Source [facility] WITH [id number] 22:56:35* Test Item Value Reference Range Interpretation [...] g/dL 31.6-35.1 L RDW-SD (test code = 50909-8) 50.4 fL 39.0-49.9 H RDW-CV (test code = 788-0) 15.2 % 12.0-15.5 PLT (test code = 777-3) See_Comment [Automated [employer] ge] The system which generated this result transmitted reference range: 166 - 358 10*3/?L. The reference range was not used to interpret this result as normal/abnormal. MPV (test code = 76314-9) 10.0 fL 9.5-12.9 NRBC/100 WBC (test code = 1942011942) See_Comment [Automated [employer] ssage] The system which generated this result transmitted reference range: 0.0 - 10.0 /100 WBCs. The reference range was not used to interpret this result as normal/abnormal. NRBC x10^3 (test code = 0019444546) See_Comment [Automated [place] ge] The system which generated this result transmitted reference range: 10*3/?L. The reference range was not used to interpret this result as normal/abnormal. GRAN MAT (NEUT) % (test code = 770-8) 73.0 % IMM GRAN % (test code = 7557068889) 0.30 % LYMPH % (test code = 736-9) 15.3 % MONO % (test code = 5905-5) 6.9 % EOS % (test code = 713-8) 3.9 % BASO % (test code = 706-2) 0.6 % GRAN MAT x10^3(ANC) (test code = 3056375197) 2.43 10*3/uL 1.88-7.09 IMM GRAN x10^3 (test code = 2125660281) 0.00-0.06 LYMPH x10^3 (test code = 731-0) 0.51 10*3/uL 1.32-3.29 L MONO x10^3 (test code = 742-7) 0.23 10*3/uL 0.33-0.92 L EOS x10^3 (test code = 711-2) 0.13 10*3/uL 0.03-0.39 BASO x10^3 (test code = 704-7) 0.01-0.07 Lab Interpretation (test code = 96548-9) Abnormal [facility]
[2023-02-25 23:36] LABS: Absolute Lymphocytes (CBC) 0.6 K/uL (0.7-4.9); Hematocrit 34.3 % (36.0-45.0); Lymphocytes % 13.7 % (15.3-44.8); MCV 89.1 fL (80-100); MPV 8.6 fL (7.6-11.3); Platelets 199 thou/uL (152-406); RBC Red Blood Cell Count 3.85 M/uL (3.86-4.86)
[2023-02-26 00:04] LABS: ALT/SGPT 26 U/L (13-56); AST/SGOT 9 U/L (15-37); Albumin 2.4 g/dL (3.4-5.0); Alkaline Phosphatase 205 U/L (45-117); BUN Blood Urea Nitrogen 72 mg/dL (7-18); Bicarbonate 24 mEq/L (21-32); Bilirubin Total 0.2 mg/dL (0.2-1.0); Glomerular Filtration Rate 13 ml/min (=/>90); Magnesium 2.2 mg/dL (1.6-2.4); Potassium 4.1 mEq/L (3.5-5.1); Protein, Total 5.7 g/dL (6.4-8.2); Sodium Level 132 mEq/L (136-145); Troponin High Sensitivity 36.6 pg/mL (<58.9)
[2023-02-26 00:05] LABS: Bilirubin Direct < 0.1 mg/dL (0-0.2); Bilirubin Indirect, Calculated ND mg/dL (0.2-0.8)
[2023-02-26 00:06] LABS: Protime INR 0.99
[2023-02-26 00:08] LABS: Glucose Level 556 mg/dL (74-106)
[2023-02-26] MEDS ORDERED: INSULIN REGULAR (HUMAN) 100 UNIT/ML ONE ×2 (00:39→12:59)
[2023-02-26] MEDS ORDERED: FUROSEMIDE 40 MG/4 ML VIAL ONE ×3 (00:39→17:07)
--- NOTE | 2023-02-26 00:48 | EDPHYS ---
Physician Documentation [facility] Name: Alyson Mayfield Age: 52 yrs Sex: Female : 1970 Arrival Date: 02/25/2023 Time: 22:32 Bed 8 Private MD: ED Physician Otilia Gonzalez HPI: 02/25 23:02 This 52 yrs old Female presents to ER via Ambulatory with complaints of sp3 Nausea/Vomiting/Diarrhea, Leg Swelling. 23:02 52-year-old female with a history of CHF, diabetes, hypertension recently discharged sp3 from this hospital approximately 3 days ago now presents to the ED again for recurrent lower extremity swelling and mild shortness of breath. is on the phone who states that patient has not been following her recommended diet and has been having high salt intake and high carbohydrate intake which may be contributing to her current state. Patient denies any chest pain, fever, cough, headache, URI symptoms, or any other signs or symptoms on ROS at this time.. 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 - Social history:: Smoking status: Patient denies any tobacco usage or history of. ROS: 23:03 Constitutional: Negative for fever, chills, and weight loss, Eyes: Negative for injury, sp3 pain, redness, and discharge, ENT: Negative for injury, pain, and discharge, Neck: Negative for injury, pain, and swelling, Abdomen/GI: Negative for abdominal pain, nausea, vomiting, diarrhea, and constipation, Back: Negative for injury and pain, Skin: Negative for injury, rash, and discoloration, Neuro: Negative for headache, weakness, numbness, tingling, and seizure, Psych: Negative for depression, anxiety, suicide ideation, homicidal ideation, and hallucinations, Allergy/Immunology: Negative for hives, rash, and allergies, Endocrine: Negative for neck swelling, polydipsia, polyuria, polyphagia, and marked weight changes, Hematologic/Lymphatic: Negative for swollen nodes, abnormal bleeding, and unusual bruising, 23:03 All other systems are negative, Exam: 23:03 Constitutional: This is a well developed, well nourished patient who is awake, alert, sp3 and in no acute distress. Head/Face: Normocephalic, atraumatic. Eyes: Pupils equal round and reactive to light, extra-ocular motions intact. Lids and lashes normal. Conjunctiva and sclera are non-icteric and not injected. Cornea within normal limits. Periorbital areas with no swelling, redness, or edema. ENT: Nares patent. No nasal discharge, no septal abnormalities noted. External auditory canals are clear. Oropharynx with no redness, swelling, or masses, exudates, or evidence of obstruction, uvula midline. Mucous membranes moist. Neck: Trachea midline, no thyromegaly or masses palpated, and no cervical lymphadenopathy. Supple, full range of motion without nuchal rigidity, or vertebral point tenderness. No Meningismus. Chest/axilla: Normal chest wall appearance and motion. Nontender with no deformity. No lesions are appreciated. Cardiovascular: Regular rate and rhythm with a normal S1 and S2. No gallops, murmurs, or rubs. Normal PMI, no JVD. No pulse deficits. Respiratory: Lungs have equal breath sounds bilaterally, clear to auscultation and percussion. No rales, rhonchi or wheezes noted. No increased work of breathing, no retractions or nasal flaring. Abdomen/GI: Soft, non-tender, with normal bowel sounds. No distension or tympany. No guarding or rebound. No evidence of tenderness throughout. Back: No spinal tenderness. No costovertebral tenderness. Full range of motion. Skin: Warm, dry with normal turgor. Normal color with no rashes, no lesions, and no evidence of cellulitis. Neuro: Awake and alert, GCS 15, oriented to person, place, time, and situation. Cranial nerves II-XII grossly intact. Motor strength 5/5 in all extremities. Sensory grossly intact. Cerebellar exam normal. Normal gait. Psych: Awake, alert, with orientation to person, place and time. Behavior, mood, and affect are within normal limits. 23:03 Musculoskeletal/extremity: Peripheral edema 2+ pitting in nature. 12/23 00:05 ECG was reviewed by the Attending Physician. EKG demonstrates normal sinus rhythm at 70 sp3 bpm with normal intervals, normal axis, normal QRS, flipped T waves inferior laterally which are unchanged from prior EKG dated 02/15/2023. Vital Signs: 02/25 22:50 BP 163 / 98; Pulse 78; Resp 16; Temp 97.6(TE); Pulse Ox 97% ; Weight 52.16 kg (R); jb4 Height 5 ft. 2 in. (R); Pain 9/10; 23:10 BP 167 / 97; Pulse 79; Resp 16; Pulse Ox 97% on R/A; km8 02/26 00:00 BP 151 / 81; Pulse 74; Resp 14; Pulse Ox 95% on R/A; km8 01:00 BP 159 / 79; Pulse 77; Resp 16; Pulse Ox 100% on R/A; km8 02/25 22:50 Body Mass Index 21.03 (52.16 kg, 157.48 cm) jb4 02/25 22:50 Pain Scale: Adult jb4 [place] Coma Score: 02/25 23:10 Eye Response: spontaneous(4). Motor Response: obeys commands(6). Verbal Response: km8 oriented(5). Total: 15. MDM: 22:51 Patient medically screened. sp3 23:04 Data reviewed: vital signs, nurses notes, lab test result(s), EKG, radiologic studies. sp3 ED course: 52-year-old female with likely diet induced congestive heart failure recurrent in nature after recent discharge. I am not highly suspicious for acute coronary syndrome, pneumonia, PE, TAD, or any other critical pathology including sepsis and shock. Workup will include EKG, chest x-ray, laboratory values including BNP and troponin. Disposition pending workup and patient course.. 02/25 22:51 Order name: Basic Metabolic Panel; Complete Time: 00:35 sp3 02/25 22:51 Order name: CBC with Diff; Complete Time: 00:35 sp3 02/25 22:51 Order name: LFT's; Complete Time: 00:35 sp3 02/25 22:51 Order name: Magnesium; Complete Time: 00:35 sp3 02/25 22:51 Order name: NT PRO-BNP; Complete Time: 00:35 sp3 02/25 22:51 Order name: PT-INR; Complete Time: 00:35 sp3 02/25 22:51 Order name: Troponin HS; Complete Time: 00:35 sp3 02/26 01:30 Order name: Basic Metabolic Panel EDMS 02/26 01:30 Order name: Basic Metabolic Panel EDMS 02/26 01:30 Order name: CBC with Automated Diff EDMS 02/26 01:30 Order name: CBC with Automated Diff EDMS 02/26 01:30 Order name: Magnesium EDMS 02/26 01:30 Order name: Magnesium EDMS 02/26 01:30 Order name: Troponin High Sensitivity EDMS 02/26 01:30 Order name: Troponin High Sensitivity EDMS 02/26 01:30 Order name: Troponin High Sensitivity EDMS 02/26 01:30 Order name: Troponin High Sensitivity EDMS 02/26 02:04 Order name: Glucose, Ancillary Testing EDMS 02/26 08:00 Order name: Glucose, Ancillary Testing EDMS 02/26 13:05 Order name: Glucose, Ancillary Testing EDMS 02/26 17:04 Order name: glucometer results - FOR PT WITH NO ID ds4 02/26 17:56 Order name: Glucose, Ancillary(No Armband) EDMS 02/25 22:51 Order name: XRAY Chest (1 view) sp3 02/25 22:51 Order name: EKG; Complete Time: 22:52 sp3 02/25 22:51 Order name: Cardiac monitoring; Complete Time: 23:10 sp3 02/25 22:51 Order name: EKG - Nurse/Tech; Complete Time: 23:10 sp3 02/25 22:51 Order name: IV Saline Lock; Complete Time: 23:10 sp3 02/25 22:51 Order name: Labs collected and sent; Complete Time: 23:10 sp3 02/25 22:51 Order name: O2 Per Protocol; Complete Time: 23:10 sp3 02/25 22:51 Order name: O2 Sat Monitoring; Complete Time: 23:10 sp3 Administered Medications: 02/26 00:52 Drug: Insulin Regular Human IVP 10 units IVP once {Co-Signature: jb4 (Javier Sim8 RN).} Route: IVP; Site: right forearm; 01:54 Follow up: Response: No adverse reaction vc1 01:59 Follow up: Response: Blood sugar is lowered km8 00:52 Drug: Furosemide IVP 40 mg IVP once; give over 2 minutes Route: IVP; Site: right km8 forearm; 01:19 Follow up: Response: No adverse reaction km8 Disposition Summary: 02/26/23 00:48 Hospitalization Ordered Notes: Hospitalization Status: Inpatient Admission sp3 Provider: Riley Mendiola sp3 Condition: Stable sp3 Problem: an acute exacerbation sp3 Symptoms: have worsened sp3 Bed/Room Type: Standard sp3 Location: Telemetry/MedSurg (Inpatient)(02/26/23 14:51) sp Room Assignment: [facility](02/26/23 14:51) sp Diagnosis - CHF exacerbation, hyperglycemia sp3 Forms: - Medication Reconciliation Form sp3 - SBAR form sp3 - Leadership Thank You Letter sp3 Signatures: Dispatcher [employer] EDMS Violette Gao James, RN RN jb4 Otilia Gonzalez MD MD sp3 Christina Fleming RN RN km8 Albina Dubon RN vc1 Javier Sim RN jb4 Corrections: (The following items were deleted from the chart) 01:45 00:48 Telemetry/MedSurg (Inpatient) sp3 jb4 01:45 00:48 sp3 jb4 14:51 01:45 [facility] ER HOLD jb4 sp 14:51 01:45 ERHOLD- jb4 sp
--- NOTE | 2023-02-26 00:48 | ER ---
Nurse's Notes [facility] Name: Alyson Mayfield Age: 52 yrs Sex: Female : 1970 Arrival Date: 02/25/2023 Time: 22:32 Bed 8 Private MD: Diagnosis: CHF exacerbation, hyperglycemia Presentation: 02/25 22:50 Chief complaint: Patient states: I was just released from the hospital on Tuesday and jb4 sent home with lasix. I got it filled and it isn't helping. I am having swelling to both my legs. I started having abdominal pain on Tuesday and diarrhea for 1 day. Coronavirus screen: At this time, the client does not indicate any symptoms associated with coronavirus-19. Ebola Screen: No symptoms or risks identified at this time. Initial Sepsis Screen: Does the patient meet any 2 criteria? No. Patient's initial sepsis screen is negative. Does the patient have a suspected source of infection? No. Patient's initial sepsis screen is negative. Risk Assessment: Do you want to hurt yourself or someone else? Patient reports no desire to harm self or others. Onset of symptoms was February 25, 2023. Transition of care: patient was not received from another setting of care. 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 - Social history:: Smoking status: Patient denies any tobacco usage or history of. Screenin:10 [facility] ED Fall Risk Assessment (Adult) History of falling in the last 3 months, km8 including since admission No falls in past 3 months (0 pts) Confusion or Disorientation No (0 pts) Intoxicated or Sedated No (0 pts) Impaired Gait No (0 pts) Mobility Assist Device Used No (0 pt) Altered Elimination No (0 pt) Score/Fall Risk Level 0 - 2 = Low Risk Oriented to surroundings, Maintained a safe environment, Educated pt \T\ family on fall prevention, incl call for assistance when getting out of bed, Assessed \T\ reinforced patient's understanding of fall precautions. Abuse screen: Denies threats or abuse. Denies injuries from another. Nutritional screening: No deficits noted. Tuberculosis screening: No symptoms or risk factors identified. Assessment: 23:10 General: Appears in no apparent distress. comfortable, Behavior is calm, cooperative, km8 appropriate for age. Pain: Complains of pain in abdomen. Neuro: Level of Consciousness is awake, alert, obeys commands, Oriented to person, place, time, situation. Cardiovascular: Denies chest pain, shortness of breath, Capillary refill < 3 seconds Patient's skin is warm and dry. Edema is 3+ to right and left legs. Respiratory: Airway is patent Respiratory effort is even, unlabored, Respiratory pattern is regular, symmetrical. GI: Abdomen is non-distended, Reports lower abdominal pain, upper abdominal pain, diarrhea. : No signs and/or symptoms were reported regarding the genitourinary system. EENT: No signs and/or symptoms were reported regarding the EENT system. Derm: Skin is intact, Skin is dry, Skin is pink, warm \T\ dry. normal, Skin temperature is warm. Musculoskeletal: Circulation, motion, and sensation intact. Range of motion: intact in all extremities. 02/26 00:20 Reassessment: Patient appears in no apparent distress at this time. No changes from km8 previously documented assessment. Patient and/or family updated on plan of care and expected duration. Pain level reassessed. Patient is alert, oriented x 3, equal unlabored respirations, skin warm/dry/pink. 01:18 Reassessment: Patient appears in no apparent distress at this time. No changes from km8 previously documented assessment. Patient and/or family updated on plan of care and expected duration. Pain level reassessed. Patient is alert, oriented x 3, equal unlabored respirations, skin warm/dry/pink. Vital Signs: 02/25 22:50 BP 163 / 98; Pulse 78; Resp 16; Temp 97.6(TE); Pulse Ox 97% ; Weight 52.16 kg (R); jb4 Height 5 ft. 2 in. (R); Pain 9/10; 23:10 BP 167 / 97; Pulse 79; Resp 16; Pulse Ox 97% on R/A; km8 02/26 00:00 BP 151 / 81; Pulse 74; Resp 14; Pulse Ox 95% on R/A; km8 01:00 BP 159 / 79; Pulse 77; Resp 16; Pulse Ox 100% on R/A; km8 02/25 22:50 Body Mass Index 21.03 (52.16 kg, 157.48 cm) jb4 02/25 22:50 Pain Scale: Adult jb4 [place] Coma Score: 02/25 23:10 Eye Response: spontaneous(4). Motor Response: obeys commands(6). Verbal Response: km8 oriented(5). Total: 15. ED Course: 22:36 Patient arrived in ED. gm2 22:39 Otilia Gonzalez MD is Attending Physician. sp3 22:53 Triage completed. jb4 22:53 Arm band placed on right wrist. jb4 23:10 Patient has correct armband on for positive identification. Bed in low position. Call km8 light in reach. Side rails up X2. Client placed on continuous cardiac and pulse oximetry monitoring. NIBP monitoring applied. Door closed. Noise minimized. Lights dimmed. Warm blanket given. 23:10 Inserted saline lock: 20 gauge in right forearm, using aseptic technique. Blood km8 collected. 23:10 No provider procedures requiring assistance completed. Patient maintains SpO2 km8 saturation greater than 95% on room air. 23:17 XRAY Chest (1 view) In Process Unspecified. EDMS 02/26 00:45 iRley Mendiola MD is Hospitalizing Provider. sp3 01:00 Provided Education on: low sodium low sugar diet. vc1 01:54 Patient admitted, IV remains in place. vc1 Administered Medications: 00:52 Drug: Insulin Regular Human IVP 10 units IVP once {Co-Signature: tonya (Javier Sim km8 RN).} Route: IVP; Site: right forearm; 01:54 Follow up: Response: No adverse reaction vc1 01:59 Follow up: Response: Blood sugar is lowered km8 00:52 Drug: Furosemide IVP 40 mg IVP once; give over 2 minutes Route: IVP; Site: right km8 forearm; 01:19 Follow up: Response: No adverse reaction km8 Medication: 02/25 23:10 VIS not applicable for this client. km8 Outcome: 02/26 00:48 Decision to Hospitalize by Provider. sp3 01:53 Admitted to ER Hold. Please see [facility] for further documentation. vc1 01:53 Condition: good 01:53 Instructed on the need for admit, 18:00 Patient left the ED. Signatures: Dispatcher [employer] EDMS Marisa Dash RN RN Javier Sim, RN RN jb4 Otilia Gonzalez MD MD sp3 Albina Dubon RN RN vc1 Beulah Rodriguez [facility] Christina Fleming RN RN km8 Javier Sim RN jb4
[2023-02-26] MEDS ORDERED: ACETAMINOPHEN 325 MG TABLET PO PRN (01:20)
[2023-02-26] MEDS ORDERED: ONDANSETRON 4 MG/2 ML VIAL IV PRN (01:20)
--- NOTE | 2023-02-26 01:30 | P.HP ---
Certification for Inpatient Patient admitted to: Inpatient With expected LOS: >2 Midnights Practitioner: I am a practitioner with admitting privileges, knowledge of patient current condition, hospital course, and medical plan of care. Services: Services provided to patient in accordance with Admission requirements found in Title 42 Section 412.3 of the Code of Federal Regulations Patient History Date of Service: 02/26/23 Reason for admission: CHF exacerbation, volume overload. History of Present Illness: 52-year-old female patient with history of type 2 diabetes, hypertension, CHF, CKD stage IV, coronary disease status post stents x 2 who was recently evaluated for episode of volume overload and was managed with IV diuretic therapy and antibiotic therapy. She was discharged on 19 February 2023 but came back today with complaint of worsening shortness of breath. She was found to have severely elevated proBNP of 141 K, evidence of volume overload in the x-ray and elevated creatinine of 3.5. She was started on IV diuretic therapy and was asked to be admitted for inpatient care. Allergies sulfamethoxazole [From Bactrim] Allergy (Verified 07/09/22 16:03) facial swelling trimethoprim [From Bactrim] Allergy (Verified 07/09/22 16:03) facial swelling Tramadol HCl Allergy (Uncoded 07/09/22 16:03) Hives/Rash Home Medications: Aspirin [Aspirin EC 81 MG] 81 mg PO DAILY 03/15/21 Carvedilol [Coreg] 12.5 mg PO BID 03/15/21 Topiramate [Topamax] 25 mg PO BID 03/15/21 Atorvastatin Calcium [Lipitor] 40 mg PO BEDTIME tab 04/06/21 Cholecalciferol (Vitamin D3) [Vitamin D 1000 Iu Tab*] 4,000 unit PO DAILY tab 04/06/21 Clopidogrel Bisulfate [Plavix*] 1 tab PO DAILY 07/19/22 Linagliptin [Tradjenta] 1 tab PO DAILY 07/19/22 Pantoprazole [Protonix Tab*] 1 tab PO DAILY 07/19/22 Thyroid,Pork [Multimedia Instructional Designer Thyroid] 60 mg PO DAILY 07/19/22 Alcohol Antiseptic Pads [Alcohol Swabs] 1 each TP TID #1 box 02/19/23 Blood Sugar Diagnostic [Blood Glucose Test Strip] 1 each MC TID #90 strip 02/19/23 Blood-Glucose Meter [Blood Glucose Monitoring] 1 each MC TID #1 kit 02/19/23 Furosemide [Lasix] 80 mg PO BID #60 tab 02/19/23 Insulin -Regular Human [Novolin -R*] See Protocol SQ ACHS #15 ml 02/19/23 Lancets/Blood Glucose Strips [Pogo Automatic Test Cartridge] 1 each TID #1 box 02/19/23 Syringe-Needle,Insulin,0.5 ml [Easy Touch Insulin Syringe] 1 each TID #100 ea 02/19/23 - Past Medical/Surgical History Diabetic: Yes -: Diabetes mellitus type II -: Hypothyroid -: Hypertension -: CHF -: Tubal ligation -: Gallbladder Psychosocial/ Personal History: 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 Dyspnea, Edema Gastrointestinal: Unremarkable Genitourinary: Unremarkable Musculoskeletal: Unremarkable Neurological: Unremarkable Physical Examination - Physical Exam General: Alert, Oriented x3 HEENT: Atraumatic, Normocephalic Neck: Supple Respiratory: Diminished, Crackles/rales Cardiovascular: Regular rate/rhythm, Normal S1 S2 Gastrointestinal: Soft and benign Musculoskeletal: Swelling Neurological: Normal speech, Normal strength at 5/5 x4 extr - Studies Laboratory Data (last 24 hrs) 02/25/23 02/25/23 02/25/23 23:08 23:08 23:08 WBC 4.20 L Hgb 11.6 L Hct 34.3 L Plt Count 199 PT 10.9 INR 0.99 Sodium 132 L Potassium 4.1 BUN 72 H Creatinine 3.86 H Glucose 556 H* Magnesium 2.2 Total Bilirubin 0.2 AST 9 L ALT 26 Alkaline Phosphatase 205 H Assessment and Plan - Plan CHF exacerbation Deemed secondary to volume noncompliance and salt noncompliance. She also does have worsening CKD and this could be a confounder to. There is significant concern for cardiorenal syndrome Will continue aggressive diuresis with Lasix 40 mg every 8. Will admit Flagyl for additional diuretic benefits Follow input and output closely. Will have nephrology and cardiology evaluate patient. Hypertension: Monitor vital signs per unit protocol and continue outpatient antihypertensive medications. Diabetes type 2: We will continue sliding scale insulin for glucose control and carb restricted diet. Monitor blood sugar ACHS. Coronary artery disease: Continue statin therapy and aspirin CKD stage IV: Patient does have significant worsening kidney function. Nephrology is following patient for management recommendation. Will continue to management of CKD by avoiding sepsis inducing medication for estimated glomerular filtration. Hyperlipidemia: We will continue statin therapy. Prophylaxis: Heparin for DVT prophylaxis due to advanced CKD CODE STATUS: Full code Patient: We will manage CHF exacerbation and she will be discharged when she is deemed clinically stable. - Advance Directives Does patient have a Living Will: No Does patient have a Durable POA for Healthcare: No
[2023-02-26 02:36] VITALS: BMI 21.0
[2023-02-26] MEDS: INSULIN REGULAR (HUMAN) 100 UNIT/ML SQ SCH ×4 (07:30→21:00)
[2023-02-26] MEDS: HEPARIN 5000 UNIT/ML 1 ML VIAL SQ SCH ×2 (09:00→17:00)
[2023-02-26] MEDS: FUROSEMIDE 40 MG/4 ML VIAL IV SCH ×2 (09:00→17:00)
[2023-02-26] MEDS: INSULIN GLARGINE 100 UNIT/ML SQ SCH (09:00)
[2023-02-26] MEDS: METOLAZONE 5 MG TABLET PO SCH (09:00)
[2023-02-26] MEDS ORDERED: INSULIN GLARGINE 100 UNIT/ML SQ ONE (09:12)
[2023-02-26] MEDS ORDERED: METOPROLOL XL 50 MG TAB PO ONE (09:59)
[2023-02-26] MEDS ORDERED: AMLODIPINE 5 MG TAB ONE (09:59)
--- NOTE | 2023-02-26 14:24 | P.PN ---
Subjective Date of Service: 02/26/23 Chief Complaint: CHF exacerbation, volume overload. Pt is resting comfortably in bed. She reports small urine output. Will continue lasix and metolazone. No complaints. Review of Systems Unremarkable General: Unremarkable Eyes: Unremarkable ENT: Unremarkable Respiratory: Shortness of Breath Cardiovascular: Unremarkable Gastrointestinal: Unremarkable Genitourinary: Unremarkable Musculoskeletal: Unremarkable Integumentary: Unremarkable Neurological: Unremarkable Lymphatics: Unremarkable Physical Examination - Vital Signs Temperature: 98.3 F Blood Pressure: 152/72 Pulse: 72 Respirations: 15 Pulse Ox (%): 98 - Physical Exam General: Alert, In no apparent distress, Oriented x3 HEENT: Atraumatic, Normocephalic, PERRLA Neck: Supple, 2+ carotid pulse no bruit Respiratory: Normal air movement, Diminished Cardiovascular: No edema, Normal pulses, Regular rate/rhythm, Normal S1 S2 Capillary refill: <2 Seconds Gastrointestinal: Normal bowel sounds, Soft and benign, Non-distended Musculoskeletal: No clubbing, No swelling Integumentary: No rashes, No breakdown Neurological: Normal gait, Normal speech, Normal strength at 5/5 x4 extr Lymphatics: No axilla or inguinal lymphadenopathy - Studies Laboratory Data (last 24 hrs) 02/25/23 02/25/23 02/25/23 23:08 23:08 23:08 WBC 4.20 L Hgb 11.6 L Hct 34.3 L Plt Count 199 PT 10.9 INR 0.99 Sodium 132 L Potassium 4.1 BUN 72 H Creatinine 3.86 H Glucose 556 H* Magnesium 2.2 Total Bilirubin 0.2 AST 9 L ALT 26 Alkaline Phosphatase 205 H Assessment And Plan - Plan Acute CHF exacerbation: Will continue lasix 40mg iv TID, metolazone, strict I/O, daily weight and low salt diet. Consulted Cardiology and Nephrology. Will monitor urine output Hypertension: Continue outpatient antihypertensive medications. Diabetes type 2: Will continue accuchek, SSI and ADA diet. Coronary artery disease: Continue statin therapy and aspirin UMM on CKD stage IV: Will avoid nephrotoxins and monitor renal function. Likely due to diuretics. Hyperlipidemia: Statin DVT Prophylaxis: Heparin CODE STATUS: Full code Dispo: Pending hospital course. Discharge Plan: Home Plan to discharge in: 24 Hours - Code Status/Comfort Care Code Status Assessed: Yes
[2023-02-26] MEDS ORDERED: HEPARIN 5000 UNIT/ML 1 ML VIAL ONE (17:07)
--- NOTE | 2023-02-26 19:25 | RAD REPORT ---
EXAM DESCRIPTION: RAD - Chest Single View - 02/25/2023 11:15 pm CLINICAL HISTORY: DYSPNEA. COMPARISON: None. TECHNIQUE: Single view AP chest radiograph(s). FINDINGS: Small bilateral pleural effusions. Mild streaky opacification in the right lower lung. No pneumothorax. Mild cardiomegaly. No significant osseous abnormality. IMPRESSION: 1. Small bilateral pleural effusions. Mild streaky opacification in the right lower yaima ng. 2. Mild cardiomegaly. 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 The interpreting radiologist is fully responsible for the content of the report.
[2023-02-27] MEDS: HEPARIN 5000 UNIT/ML 1 ML VIAL SQ SCH ×3 (00:07→17:27)
[2023-02-27] MEDS: FUROSEMIDE 40 MG/4 ML VIAL IV SCH ×3 (00:07→17:27)
[2023-02-27 07:54] LABS: Absolute Lymphocytes (CBC) 0.9 K/uL (0.7-4.9); Hematocrit 34.1 % (36.0-45.0); Lymphocytes % 20.9 % (15.3-44.8); MCV 87.3 fL (80-100); MPV 8.6 fL (7.6-11.3); Platelets 230 thou/uL (152-406)
[2023-02-27 07:56] LABS: Magnesium 2.3 mg/dL (1.6-2.4); Potassium 3.8 mEq/L (3.5-5.1)
[2023-02-27] MEDS: INSULIN REGULAR (HUMAN) 100 UNIT/ML SQ SCH ×4 (09:01→21:00)
[2023-02-27] MEDS: carvediloL 12.5 MG TAB PO SCH ×2 (09:02→17:26)
[2023-02-27] MEDS: METOLAZONE 5 MG TABLET PO SCH (09:02)
[2023-02-27] MEDS: INSULIN GLARGINE 100 UNIT/ML SQ SCH (09:02)
--- NOTE | 2023-02-27 10:45 | P.PN ---
Subjective Date of Service: 02/27/23 Chief Complaint: CHF exacerbation, volume overload. Pt is resting comfortably in bed. She reports small urine output despite taking lasix and metolazone. Fluid balance is positive 110 cc. It is likely she has kidney failure. Consulted Cardiology and Nephrology. No complaints. Review of Systems Unremarkable General: Unremarkable Eyes: Unremarkable ENT: Unremarkable Respiratory: Unremarkable Cardiovascular: Edema Gastrointestinal: Unremarkable Genitourinary: Unremarkable Musculoskeletal: Unremarkable Integumentary: Unremarkable Neurological: Unremarkable Lymphatics: Unremarkable Physical Examination - Vital Signs Temperature: 97.4 F Blood Pressure: 159/89 Pulse: 71 Respirations: 16 Pulse Ox (%): 97 - Physical Exam General: Alert, In no apparent distress, Oriented x3 HEENT: Atraumatic, Normocephalic Neck: Supple, 2+ carotid pulse no bruit Respiratory: Clear to auscultation bilaterally, Normal air movement Cardiovascular: Normal pulses, Regular rate/rhythm, Normal S1 S2, Edema (leg edema) Capillary refill: <2 Seconds Gastrointestinal: Normal bowel sounds, Soft and benign, Non-distended Musculoskeletal: No clubbing, Swelling Integumentary: No rashes, No breakdown Neurological: Normal gait, Normal speech, Normal strength at 5/5 x4 extr Lymphatics: No axilla or inguinal lymphadenopathy Assessment And Plan - Plan Acute CHF exacerbation: Will continue lasix 40mg iv TID, metolazone, strict I/O, daily weight and low salt diet. Consulted Cardiology and Nephrology. Will monitor urine output. Hold nephrotoxins. Hypertension: Continue outpatient antihypertensive medications. Diabetes type 2: Will continue accuchek, SSI and ADA diet. Coronary artery disease: Continue statin therapy and aspirin UMM on CKD stage IV: Cr is 3.7. Will avoid nephrotoxins and monitor renal function. Likely due to diuretics. Baseline cr is 1.5 Hyperlipidemia: Statin DVT Prophylaxis: Heparin CODE STATUS: Full code Dispo: Pending hospital course.
[2023-02-28] MEDS: FUROSEMIDE 40 MG/4 ML VIAL IV SCH ×4 (00:33→17:00)
[2023-02-28] MEDS: HEPARIN 5000 UNIT/ML 1 ML VIAL SQ SCH ×3 (00:34→17:00)
[2023-02-28] MEDS: carvediloL 12.5 MG TAB PO SCH ×2 (05:58→17:00)
[2023-02-28 06:45] LABS: Potassium 4.2 mEq/L (3.5-5.1)
[2023-02-28 06:56] LABS: Absolute Lymphocytes (CBC) 0.8 K/uL (0.7-4.9); Hematocrit 32.7 % (36.0-45.0); Lymphocytes % 19.1 % (15.3-44.8); MCV 87.7 fL (80-100); MPV 8.3 fL (7.6-11.3); Platelets 236 thou/uL (152-406); RBC Red Blood Cell Count 3.72 M/uL (3.86-4.86)
[2023-02-28] MEDS: METOLAZONE 5 MG TABLET PO SCH (08:29)
[2023-02-28] MEDS: INSULIN REGULAR (HUMAN) 100 UNIT/ML SQ SCH ×4 (08:34→20:00)
[2023-02-28] MEDS: INSULIN GLARGINE 100 UNIT/ML SQ SCH (08:35)
--- NOTE | 2023-02-28 08:39 | P.PN ---
Subjective Date of Service: 02/28/23 Chief Complaint: CHF exacerbation, volume overload. Pt is resting comfortably in bed. She reports small urine output despite taking lasix and metolazone. neph consulted for kidney failure. Consulted Cardiology No complaints. reports insurance lapsed, friend reported patient is noncompliant with diet, meds, treatment Patient reports she is independent, ambulates without assistance, and 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 . Her DME includes a walker, but does not use it. She reports that her health insurance has lapsed but will be re-instated in March. - Physical Exam General: Alert, In no apparent distress, Oriented x3 HEENT: Atraumatic, Normocephalic Neck: Supple, 2+ carotid pulse no bruit Respiratory: Clear to auscultation bilaterally, Normal air movement Cardiovascular: Normal pulses, Regular rate/rhythm, Normal S1 S2, Edema (leg edema) Capillary refill: <2 Seconds Gastrointestinal: Normal bowel sounds, Soft and benign, Non-distended Musculoskeletal: No clubbing, Swelling Integumentary: No rashes, No breakdown Neurological: Normal gait, Normal speech, Normal strength at 5/5 x4 extr Lymphatics: No axilla or inguinal lymphadenopathy Review of Systems per HPI Physical Examination - Vital Signs Temperature: 97.9 F Blood Pressure: 162/86 Pulse: 82 Respirations: 18 Pulse Ox (%): 96 Assessment And Plan - Plan Assessment plan Acute CHF exacerbation: Will continue lasix 40mg iv TID, metolazone, strict I/O, daily weight and low salt diet. Consulted Cardiology and Nephrology. Will monitor urine output. Hold nephrotoxins. Acute renal failure likely secondary to diuretic use UMM on CKD stage IV: Cr is 3.7. Nephrology consult Will avoid nephrotoxins and monitor renal function. Likely due to diuretics. Baseline cr is 1.5 Worsening BUN 77, creatinine 4.0 lasix was 40 iv Q8, changed to bid 02/18 ECHO OMMENTS: LVEF 40% 1. MILD TO MODERATE LEFT VENTRICULAR SYSTOLIC DYSFUNCTION WITH EJECTION FRACTION 40$ WITH GLOBAL HYPOKINESIS 2. SEVERE DIASTOLIC DYSFUNCTION 3. MODERATE MITRAL REGURGITATION 4. MODERATE TRICUSPID REGURGITATION 5. LEFT ATRIAL ENLARGEMENT 6. MILD CONCENTRIC LEFT VENTRICULAR HYPERTROPHY 7. SEVERE PULMONARY HYPERTENSION WITH RIGHT VENTRICULAR SYSTOLIC PRESSURE GREATER THAN 60 mmHg 8. TRACE PERICARDICAL EFFUSION AND LARGE PLEURAL EFFUSION Hypertension: Continue outpatient antihypertensive medications. Diabetes type 2: Will continue accuchek, SSI and ADA diet. Coronary artery disease: Continue statin therapy and aspirin Hyperlipidemia: Statin DVT Prophylaxis: Heparin CODE STATUS: Full code Dispo: Pending hospital course. bree reports she is independent, ambulates without assistance, and 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 . Her DME includes a walker, but does not use it. She reports that her health insurance has lapsed but will be re-instated in March. Discharge Plan: Home - Code Status/Comfort Care Code Status: Full Code Physician Review: Patient Assessed, Agree with Above Assessment and Plan Critical Care: No Time Spent Managing PTS Care (In Minutes): 35
[2023-03-01] MEDS: HEPARIN 5000 UNIT/ML 1 ML VIAL SQ SCH ×3 (01:08→18:39)
[2023-03-01 04:39] VITALS: O2SAT 96
[2023-03-01] MEDS: carvediloL 12.5 MG TAB PO SCH ×2 (05:01→18:41)
[2023-03-01 06:45] LABS: Absolute Lymphocytes (CBC) 0.6 K/uL (0.7-4.9); Hematocrit 30.1 % (36.0-45.0); Lymphocytes % 18.4 % (15.3-44.8); MCV 87.9 fL (80-100); MPV 8.4 fL (7.6-11.3); Platelets 222 thou/uL (152-406); RBC Red Blood Cell Count 3.43 M/uL (3.86-4.86)
[2023-03-01 07:03] LABS: Magnesium 2.3 mg/dL (1.6-2.4); Potassium 4.3 mEq/L (3.5-5.1)
[2023-03-01] MEDS: INSULIN REGULAR (HUMAN) 100 UNIT/ML SQ SCH ×4 (07:30→20:49)
--- NOTE | 2023-03-01 08:19 | P.CNS ---
Date of Consult: 02/26/23 Reason for Consult: CHF exacerbation Requesting Physician: Ulysses Salcedo Primary Care Provider: Dr. Manley Chief Complaint: CHF exacerbation, volume overload. Allergies sulfamethoxazole [From Bactrim] Allergy (Verified 07/09/22 16:03) facial swelling trimethoprim [From Bactrim] Allergy (Verified 07/09/22 16:03) facial swelling Tramadol HCl Allergy (Uncoded 07/09/22 16:03) Hives/Rash Home Medications: Aspirin [Aspirin EC 81 MG] 81 mg PO DAILY 03/15/21 Carvedilol [Coreg] 12.5 mg PO BID 03/15/21 Topiramate [Topamax] 25 mg PO BID 03/15/21 Atorvastatin Calcium [Lipitor] 40 mg PO BEDTIME tab 04/06/21 Cholecalciferol (Vitamin D3) [Vitamin D 1000 Iu Tab*] 4,000 unit PO DAILY tab 04/06/21 Clopidogrel Bisulfate [Plavix*] 1 tab PO DAILY 07/19/22 Linagliptin [Tradjenta] 1 tab PO DAILY 07/19/22 Pantoprazole [Protonix Tab*] 1 tab PO M,W,F 07/19/22 Thyroid,Pork [Electronic Parts Designer Thyroid] 60 mg PO DAILY 07/19/22 Furosemide [Lasix] 80 mg PO BID #60 tab 02/19/23 - Past Medical/Surgical History Diabetic: Yes -: Diabetes mellitus type II -: Hypothyroid -: Hypertension -: CHF -: Tubal ligation -: Gallbladder Psychosocial/ Personal History: 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 (2) Hypertension Current Visit: Yes Status: Acute Plan: Continue home medications (3) Renal failure (ARF), acute on chronic Current Visit: Yes Status: Acute Plan: Lasix and anticoagulation per Nephrology. Sees Dr. Hunt Qualifiers: Chronic kidney disease stage: stage 4 (severe) (4) Congestive heart failure Current Visit: Yes Status: Acute Plan: Lasix per nephrology, ECHO on 02/18/23 2 DIMENSIONAL ASSESSMENT: RIGHT ATRIUM: NORMAL LEFT ATRIUM: ENLARGED RIGHT VENTRICLE: NORMAL LEFT VENTRICLE: LEFT VENTRICULAR HYPERTROPHY TRICUSPID VALVE: MODERATE TRICUSPID REGURGITATION MITRAL VALVE: MODERATE MITRAL REGURGITATION PULMONIC VALVE: MILD PULMONIC INSUFFICIENCY AORTIC VALVE: NORMAL PERICARDIAL EFFUSION: TRACE AORTIC ROOT: NORMAL darrenrice COMMENTS: 1. MILD TO MODERATE LEFT VENTRICULAR SYSTOLIC DYSFUNCTION WITH EJECTION FRACTION 40$ WITH GLOBAL HYPOKINESIS 2. SEVERE DIASTOLIC DYSFUNCTION 3. MODERATE MITRAL REGURGITATION 4. MODERATE TRICUSPID REGURGITATION 5. LEFT ATRIAL ENLARGEMENT 6. MILD CONCENTRIC LEFT VENTRICULAR HYPERTROPHY 7. SEVERE PULMONARY HYPERTENSION WITH RIGHT VENTRICULAR SYSTOLIC PRESSURE GREATER THAN 60 mmHg 8. TRACE PERICARDICAL EFFUSION AND LARGE PLEURAL EFFUSION
--- NOTE | 2023-03-01 10:24 | P.PN ---
Subjective Date of Service: 03/01/23 Primary Care Provider: Dr. Manley Chief Complaint: CHF exacerbation, volume overload. Pt is resting comfortably in bed. She reports small urine output despite taking lasix and metolazone. neph consulted for kidney failure. Consulted Cardiology No complaints. she reports insurance lapsed, friend reported patient is noncompliant with diet, meds, treatment Patient reports she is independent, ambulates without assistance, and 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 . Her DME includes a walker, but does not use it. She reports that her health insurance has lapsed but will be re-instated in March. - Physical Exam General: Alert, In no apparent distress, Oriented x3 HEENT: Atraumatic, Normocephalic Neck: Supple, 2+ carotid pulse no bruit Respiratory: Clear to auscultation bilaterally, Normal air movement Cardiovascular: Normal pulses, Regular rate/rhythm, Normal S1 S2, Edema (leg edema) Capillary refill: <2 Seconds Gastrointestinal: Normal bowel sounds, Soft and benign, Non-distended Musculoskeletal: No clubbing, Swelling Integumentary: No rashes, No breakdown Neurological: Normal gait, Normal speech, Normal strength at 5/5 x4 extr Lymphatics: No axilla or inguinal lymphadenopathy Review of Systems per HPI Physical Examination - Vital Signs Temperature: 97.4 F Blood Pressure: 153/77 Pulse: 77 Respirations: 17 Pulse Ox (%): 96 Assessment And Plan - Plan Assessment plan Acute CHF exacerbation: Will continue lasix 40mg iv TID, metolazone, strict I/O, daily weight and low salt diet. Consulted Cardiology and Nephrology. Will monitor urine output. Hold nephrotoxins. daily BNP ordered 02/18 ECHO OMMENTS: LVEF 40% 1. MILD TO MODERATE LEFT VENTRICULAR SYSTOLIC DYSFUNCTION WITH EJECTION FRACTION 40$ WITH GLOBAL HYPOKINESIS 2. SEVERE DIASTOLIC DYSFUNCTION 3. MODERATE MITRAL REGURGITATION 4. MODERATE TRICUSPID REGURGITATION 5. LEFT ATRIAL ENLARGEMENT 6. MILD CONCENTRIC LEFT VENTRICULAR HYPERTROPHY 7. SEVERE PULMONARY HYPERTENSION WITH RIGHT VENTRICULAR SYSTOLIC PRESSURE GREATER THAN 60 mmHg 8. TRACE PERICARDICAL EFFUSION AND LARGE PLEURAL EFFUSION Acute renal failure likely secondary to diuretic use UMM on CKD stage IV: Cr is 3.7. Nephrology consult Will avoid nephrotoxins and monitor renal function. Likely due to diuretics. Baseline cr is 1.5 BUN 71-> 77->85 creatinine 3.70->4.00, 3.94 Worsening BUN 77, creatinine 4.0 lasix was 40 iv Q8, changed to bid renal US ordered The urinary bladder is incompletely distended without gross abnormality seen. IMPRESSION: No evidence of hydronephrosis. Hypomagnesia Mag 7.9 Hypertension: Continue outpatient antihypertensive medications. Diabetes type 2: uncontrlled Will continue accuchek, SSI and ADA diet. A1c in am Coronary artery disease: Continue statin therapy and aspirin Hyperlipidemia: Statin DVT Prophylaxis: Heparin CODE STATUS: Full code Dispo: Pending hospital course. bree reports she is independent, ambulates without assistance, and 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 . Her DME includes a walker, but does not use it. She reports that her health insurance has lapsed but will be re-instated in March. Discharge Plan: Home Physician Review: Patient Assessed, Agree with Above Assessment and Plan Critical Care: No Time Spent Managing PTS Care (In Minutes): 35
[2023-03-01] MEDS: METOLAZONE 5 MG TABLET PO SCH (10:42)
[2023-03-01] MEDS: FUROSEMIDE 40 MG/4 ML VIAL IV SCH ×2 (10:42→17:00)
[2023-03-01] MEDS: INSULIN GLARGINE 100 UNIT/ML SQ SCH (11:53)
[2023-03-01] MEDS ORDERED: LIDOCAINE VISCOUS 2% SOLN 15 ML UDC PO PRN (12:46)
--- NOTE | 2023-03-01 14:03 | RAD REPORT ---
EXAM DESCRIPTION: US - Renal Ultrasound-Complete - 03/01/2023 12:58 pm CLINICAL HISTORY: acute renal failure COMPARISON: Abdomen Pelvis Wo Contrast dated 02/15/2023 FINDINGS: Both kidneys are normal in size, shape and echotexture. The right kidney measures 11.1 cm. No hydronephrosis, focal mass or perinephric fluid. The left kidney measures 9.8 cm. No hydronephrosis, focal mass or perinephric fluid. The urinary bladder is incompletely distended without gross abnormality seen. IMPRESSION: No evidence of hydronephrosis.
[2023-03-01] MEDS: TOPIRAMATE 25 MG TAB PO SCH (20:49)
[2023-03-01] MEDS ORDERED: ATORVASTATIN 40 MG TAB PO SCH (21:00)
[2023-03-01] MEDS ORDERED: HOME MED 1 EA UNK (Furosemide [Lasix] 80 MG Tablet) PO SCH (21:00)
[2023-03-02] MEDS: HEPARIN 5000 UNIT/ML 1 ML VIAL SQ SCH ×2 (00:27→08:32)
--- NOTE | 2023-03-02 00:44 | CON ---
Date of Consultation: 03/01/2023 Chief Complaint: Acute on chronic kidney injury and congestive heart failure exacerbation. Subjective: The patient has multiple medical problems. The patient has history of frequent admission for fluid overload and congestive heart failure exacerbation. On previous occasion, she was found to have acute on chronic kidney injury due to cardiorenal syndrome. Renal function has not improved significantly. The patient has advanced chronic kidney disease stage 4. The patient is taking multiple medications including blood pressure medication, carvedilol, the patient is on furosemide 80 mg twice a day, patient is admitted for fluid overload and congestive heart failure exacerbation. Review of Systems: General: Denies fever or chills. Eyes: Denies vision changes. Ears, Nose, Mouth, and Throat: Denies sore throat or earache. Respiratory: Has shortness of breath. Denies wheezing. Heart: Denies chest pain, palpitation, or syncope. GI: Denies nausea or vomiting. : Denies dysuria or hematuria. Incomplete voiding. All other systems reviewed and all are negative. Past Medical History: Diabetes mellitus, acute on chronic kidney injury, chronic kidney disease stage 4, congestive heart failure and history of congestive heart failure exacerbation, tubal ligation, and gallbladder surgery, diabetes mellitus type 2 with renal manifestation. Family History: Hypertension, diabetes mellitus, cancer. Social History: Denies tobacco, alcohol. Denies drugs. Physical Examination: General: The patient is awake, alert, follows commands. Eyes: Anicteric sclerae. EOMI. Ears, Nose, Mouth, and Throat: Oral mucosa moist. No pallor. Neck: Supple. No bruits. Lungs: Crackles bilaterally at bases. Heart: S1, S2. No pericardial friction rub. Abdomen: Soft, benign. Extremities: Edema present in both legs. Laboratory Data: Hemoglobin 10.3, WBC 3.5, platelet count 222,000, neutrophils 69.4, lymphocytes 18.2. Sodium 157, potassium 4.3, chloride 102, CO2 31, BUN 85, creatinine 3.94, glucose 243, calcium 7.9, magnesium 2.3, albumin is pending. Previously, albumin level was 2.4 on February 25. Impression And Plan: 1. Acute on chronic kidney injury, cardiorenal syndrome acute on chronic in setting of severe fluid overload associated with dyspnea and anasarca. The patient will continue loop diuretic. Plan is to monitor renal function adjust diuretic according to volemia and renal function. The patient may need dialysis in near future if renal function does not improve. The patient will continue low-sodium diet along with lasix for volume control and current blood pressure medications for hypertension control. Adjust medication as needed. 2. Acute kidney injury. Renal ultrasound did not show obstructive uropathy, there is no hydronephrosis. Patient is tolerating diuretic therapy, continue adequate po fluid intake, avoid nephrotoxic medications. Continue current treatment. 3. Hypertension. Continue current blood pressure medication. 4. Congestive heart failure, acute on chronic cardiorenal syndrome. Continue low-sodium diet and diuretic. Avoid nonsteroidal antiinflammatory medication. 5. Acute kidney injury. The patient will have 24-hour urine collection to check for proteinuria. Urinalysis will be done to rule out acute changes consistent with active urinary sediment. 6. The patient may need dialysis in the near future if renal function does not improve. Continue diuretic for acute on chronic congestive heart failure with systolic dysfunction, reduced EF 40 %, previous ECHO showed global hypokinesis, further recommendation from cardiology. . TRUNG/WOOD Voice ID: [id number] Report ID: [id number]
[2023-03-02 04:00] LABS: Absolute Lymphocytes (CBC) 0.8 K/uL (0.7-4.9); Hematocrit 28.7 % (36.0-45.0); Lymphocytes % 24.3 % (15.3-44.8); MCV 88.6 fL (80-100); MPV 8.5 fL (7.6-11.3); Platelets 198 thou/uL (152-406); RBC Red Blood Cell Count 3.24 M/uL (3.86-4.86)
[2023-03-02 04:35] LABS: Magnesium 2.4 mg/dL (1.6-2.4); Potassium 3.5 mEq/L (3.5-5.1)
[2023-03-02] MEDS: carvediloL 12.5 MG TAB PO SCH (05:18)
[2023-03-02] MEDS: INSULIN REGULAR (HUMAN) 100 UNIT/ML SQ SCH ×3 (07:30→16:22)
[2023-03-02] MEDS ORDERED: POTASSIUM CL SA 10 MEQ TAB PO ONE (08:00)
[2023-03-02] MEDS: TOPIRAMATE 25 MG TAB PO SCH (08:30)
[2023-03-02] MEDS: METOLAZONE 5 MG TABLET PO SCH (08:31)
[2023-03-02] MEDS ORDERED: VITAMIN D 1000 UNIT TAB PO SCH (09:00)
[2023-03-02] MEDS ORDERED: FUROSEMIDE 40 MG TABLET PO SCH (09:00)
[2023-03-02] MEDS ORDERED: HOME MED 1 EA UNK (Linagliptin [Tradjenta] 5 MG Tablet) PO SCH (09:00)
[2023-03-02] MEDS ORDERED: ASPIRIN EC 81 MG TAB PO SCH (09:00)
[2023-03-02] MEDS ORDERED: CLOPIDOGREL 75 MG TABLET PO SCH (09:00)
--- NOTE | 2023-03-02 09:08 | P.PN ---
Subjective Date of Service: 03/02/23 Primary Care Provider: Dr. Manley Chief Complaint: CHF exacerbation, volume overload. Pt is resting comfortably in bed. She reports small urine output despite taking lasix and metolazone. neph consulted for kidney failure. Consulted Cardiology No complaints. she reports insurance lapsed, friend reported patient is noncompliant with diet, meds, treatment Patient reports she is independent, ambulates without assistance, and 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 . Her DME includes a walker, but does not use it. She reports that her health insurance has lapsed but will be re-instated in March. - Physical Exam General: Alert, In no apparent distress, Oriented x3 HEENT: Atraumatic, Normocephalic Neck: Supple, 2+ carotid pulse no bruit Respiratory: Clear to auscultation bilaterally, Normal air movement Cardiovascular: Normal pulses, Regular rate/rhythm, Normal S1 S2, Edema (leg edema) Capillary refill: <2 Seconds Gastrointestinal: Normal bowel sounds, Soft and benign, Non-distended Musculoskeletal: No clubbing, Swelling Integumentary: No rashes, No breakdown Neurological: Normal gait, Normal speech, Normal strength at 5/5 x4 extr Lymphatics: No axilla or inguinal lymphadenopathy Physical Examination - Vital Signs Temperature: 97.6 F Blood Pressure: 134/74 Pulse: 68 Respirations: 14 Pulse Ox (%): 99 Assessment And Plan - Plan Assessment plan Acute on chronic heart failure, unkn baseline elevated BNP Will continue lasix 40mg iv TID, metolazone, strict I/O, daily weight and low salt diet. Consulted Cardiology and Nephrology. Will monitor urine output. Hold nephrotoxins. daily BNP ordered BNP 86,281->141,911 (likely d/t renal failure) lasix 80 bid added 02/18 ECHO OMMENTS: LVEF 40% 1. MILD TO MODERATE LEFT VENTRICULAR SYSTOLIC DYSFUNCTION WITH EJECTION FRACTION 40$ WITH GLOBAL HYPOKINESIS 2. SEVERE DIASTOLIC DYSFUNCTION 3. MODERATE MITRAL REGURGITATION 4. MODERATE TRICUSPID REGURGITATION 5. LEFT ATRIAL ENLARGEMENT 6. MILD CONCENTRIC LEFT VENTRICULAR HYPERTROPHY 7. SEVERE PULMONARY HYPERTENSION WITH RIGHT VENTRICULAR SYSTOLIC PRESSURE GREATER THAN 60 mmHg 8. TRACE PERICARDICAL EFFUSION AND LARGE PLEURAL EFFUSION Acute renal failure likely secondary to diuretic use UMM on CKD stage IV: Cr is 3.7. Nephrology consult Will avoid nephrotoxins and monitor renal function. Likely due to diuretics. Baseline cr is 1.5 BUN 71-> 77->85 creatinine 3.70->4.00, 3.94.=86/3.83 Worsening BUN 77, creatinine 4.0 lasix was 40 iv Q8, changed to bid renal US ordered The urinary bladder is incompletely distended without gross abnormality seen. IMPRESSION: No evidence of hydronephrosis. Hypomagnesia Mag 7.9 Hypertension: Continue outpatient antihypertensive medications. Diabetes type 2: uncontrlled Will continue accuchek, SSI and ADA diet. A1c in am Coronary artery disease: Continue statin therapy and aspirin Hyperlipidemia: Statin DVT Prophylaxis: Heparin CODE STATUS: Full code Dispo: Pending hospital course. atyvon reports she is independent, ambulates without assistance, and 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 . Her DME includes a walker, but does not use it. She reports that her health insurance has lapsed but will be re-instated in March. Discharge Plan: Home - Code Status/Comfort Care Code Status: Full Code Physician Review: Patient Assessed, Agree with Above Assessment and Plan Critical Care: No Time Spent Managing PTS Care (In Minutes): 35
[2023-03-02 11:47] VITALS: BP 140/74; TEMP 97.7
--- NOTE | 2023-03-02 12:43 | P.DS ---
Admission Date: 02/26/23 Discharge Date: 03/02/23 Primary Care Provider: Dr. Manley Disposition: ROUTINE DISCHARGE Discharge Condition: GOOD Reason for Admission: CHF exacerbation, volume overload. - Problems (1) Congestive heart failure Current Visit: Yes Status: Acute (2) Renal failure (ARF), acute on chronic Current Visit: Yes Status: Acute Qualifiers: Chronic kidney disease stage: stage 4 (severe) Brief History of Present Illness: 52-year-old female patient with history of type 2 diabetes, hypertension, CHF, CKD stage IV, coronary disease status post stents x 2 who was recently evaluated for episode of volume overload and was managed with IV diuretic therapy and antibiotic therapy. She was discharged on 19 February 2023 but came back today with complaint of worsening shortness of breath. She was found to have severely elevated proBNP of 141 K, evidence of volume overload in the x-ray and elevated creatinine of 3.5. She was started on IV diuretic therapy and was asked to be admitted for inpatient care. - Physical Exam General: Alert, In no apparent distress, Oriented x3 HEENT: Atraumatic, Normocephalic Neck: Supple, 2+ carotid pulse no bruit Respiratory: Clear to auscultation bilaterally, Normal air movement Cardiovascular: Normal pulses, Regular rate/rhythm, Normal S1 S2, Edema (leg edema) Capillary refill: <2 Seconds Gastrointestinal: Normal bowel sounds, Soft and benign, Non-distended Musculoskeletal: No clubbing, Swelling Integumentary: No rashes, No breakdown Neurological: Normal gait, Normal speech, Normal strength at 5/5 x4 extr Lymphatics: No axilla or inguinal lymphadenopathy Hospital Course: Acute renal failure likely secondary to diuretic use UMM on CKD stage IV: Cr is 3.7. Nephrology consulted Will continue lasix 40mg iv TID, metolazone, strict I/O, daily weight and low salt diet. Consulted Cardiology and Nephrology. Will monitor urine output. Hold nephrotoxins. daily BNP ordered 02/18 ECHO OMMENTS: LVEF 40% 1. MILD TO MODERATE LEFT VENTRICULAR SYSTOLIC DYSFUNCTION WITH EJECTION FRACTION 40$ WITH GLOBAL HYPOKINESIS 2. SEVERE DIASTOLIC DYSFUNCTION 3. MODERATE MITRAL REGURGITATION 4. MODERATE TRICUSPID REGURGITATION 5. LEFT ATRIAL ENLARGEMENT 6. MILD CONCENTRIC LEFT VENTRICULAR HYPERTROPHY 7. SEVERE PULMONARY HYPERTENSION WITH RIGHT VENTRICULAR SYSTOLIC PRESSURE GREATER THAN 60 mmHg 8. TRACE PERICARDICAL EFFUSION AND LARGE PLEURAL EFFUSION Nephrology consult Will avoid nephrotoxins and monitor renal function. Likely due to diuretics. Baseline cr is 1.5 BUN 71-> 77->85 creatinine 3.70->4.00, 3.94 Worsening BUN 77, creatinine 4.0 lasix was 40 iv Q8, changed to bid renal US ordered The urinary bladder is incompletely distended without gross abnormality seen. IMPRESSION: No evidence of hydronephrosis. INSTRUCTIONS: Physician Discharge Instructions: -DC IV and DC home -Follow up with cardiology after discharge -Follow up with nephrology after discharge -Follow-up with PCP in 1 to 2 weeks -Please call Dr. Salcedo at [phone] if any questions regarding hospital stay -Please call nursing station at [phone] if any nursing or medication questions -Return to the emergency room if symptoms worsen Vital Signs/Physical Exam: Temp Pulse Resp BP Pulse Ox 97.7 F 71 14 140/74 98 03/02/23 11:42 03/02/23 11:42 03/02/23 11:42 03/02/23 11:42 03/02/23 11:42 Laboratory Data at Discharge: WBC 3.30 thou/uL (4.3-10.9) L 03/02/23 03:04 Hgb 9.6 g/dL (12.0-15.0) L 03/02/23 03:04 Hct 28.7 % (36.0-45.0) L 03/02/23 03:04 Plt Count 198 thou/uL (152-406) 03/02/23 03:04 PT 10.9 SECONDS (9.5-12.5) 02/25/23 23:08 INR 0.99 02/25/23 23:08 Sodium 138 mEq/L (136-145) 03/02/23 03:04 Potassium 3.5 mEq/L (3.5-5.1) D 03/02/23 03:04 BUN 86 mg/dL (7-18) H 03/02/23 03:04 Creatinine 3.83 mg/dL (0.55-1.02) H 03/02/23 03:04 Glucose 103 mg/dL (74-106) 03/02/23 03:04 Magnesium 2.4 mg/dL (1.6-2.4) 03/02/23 03:04 Total Bilirubin 0.2 mg/dL (0.2-1.0) 02/25/23 23:08 AST 9 U/L (15-37) L 02/25/23 23:08 ALT 26 U/L (13-56) 02/25/23 23:08 Alkaline Phosphatase 205 U/L (45-117) H 02/25/23 23:08 Home Medications: Aspirin [Aspirin EC 81 MG] 81 mg PO DAILY 03/15/21 Carvedilol [Coreg] 12.5 mg PO BID 03/15/21 Topiramate [Topamax] 25 mg PO BID 03/15/21 Atorvastatin Calcium [Lipitor] 40 mg PO BEDTIME tab 04/06/21 Cholecalciferol (Vitamin D3) [Vitamin D 1000 Iu Tab*] 4,000 unit PO DAILY tab 04/06/21 Clopidogrel Bisulfate [Plavix*] 1 tab PO DAILY 07/19/22 Linagliptin [Tradjenta] 1 tab PO DAILY 07/19/22 Pantoprazole [Protonix Tab*] 1 tab PO M,W,F 07/19/22 Thyroid,Pork [Electroplater Automatic Thyroid] 60 mg PO DAILY 07/19/22 Furosemide [Lasix] 80 mg PO BID #60 tab 02/19/23 Physician Discharge Instructions: -DC IV and DC home -Follow-up with PCP in 1 to 2 weeks -Follow-up with Cardiology in 1 to 2 weeks -Please call Dr. Salcedo at [phone] if any questions regarding hospital stay -Please call nursing station at [phone] if any nursing or medication questions -Return to the emergency room if symptoms worsen Diet: AHA Activity: Fall precautions Followup: [email or web address] [Primary Care Provider] - Heri Encarnacion MD [ACTIVE - CAN ADMIT] - 1-2 Weeks
--- NOTE | 2023-03-02 15:17 | P.PN ---
Subjective Date of Service: 03/02/23 Primary Care Provider: Dr. Manley Chief Complaint: CHF exacerbation, volume overload. Subjective: No new changes Physical Examination - Vital Signs Temperature: 97.7 F Blood Pressure: 140/74 Pulse: 71 Respirations: 14 Pulse Ox (%): 98 - Physical Exam General: Other (chronically ill-appearing) HEENT: Atraumatic, Normocephalic Neck: Supple Respiratory: Other (symmetric chest expansion) Cardiovascular: No rubs, No murmurs Gastrointestinal: Soft and benign, No rebound Musculoskeletal: No clubbing Integumentary: No warmth Neurological: Normal tone Urinary: Other (no bladder distention) External genitalia: Deferred Rectal: Deferred Assessment And Plan - Plan 1. UMM 2/2 CRS1, on CKD. Continue Lasix same dose 80 mg by mouth twice a day. liberal by mouth fluid intake at least 2 L per day. 2. Acute on chronic heart failure. Lasix by mouth twice a day as above. Continue cardioprudent medications. Do not limit by mouth fluid intake unless she develops hyponatremia less than 130 meq per liter to avoid UMM on diuretics. strict low-sodium diet less than 2 g per day. 3. Hypertension. Continue current blood pressure medication. 4. Secondary hyperparathyroidism. Recheck serum intact PTH and 25 OH D level as outpatient. 5. DM2. Management per primary team. Physician Review: Patient Assessed, Agree with Above Assessment and Plan
[2023-03-02] MEDS ORDERED: PANTOPRAZOLE 40MG TABLET PO SCH (17:00)
--- NOTE | 2023-03-03 13:38 | EKG ---
Test Date: 2023-02-25 Test Time: 23:00:25 [employer]: VERONICA MEASUREMENT RESULTS: Intervals: Rate: 78 ND: 146 QRSD: 76 QT: 414 QTc: 471 [place]: P: 76 ND: 146 QRS: 88 T: -77 INTERPRETIVE STATEMENTS: Normal sinus rhythm Nonspecific T wave abnormality Prolonged QT Abnormal ECG Compared to ECG 02/15/2023 14:59:14 No significant changes Electronically Signed On 03-03-23 13:27:20 [employer] by Heri Encarnacion
== END 2023-03-02 17:10 | disposition home or self-care (01) | DRG 291 ==
LOC: ER 22:32 → ERHOLD 02-26 01:20 → 4TH 02-26 15:02
PROVIDERS: ADMIT Internal Medicine Nephrology; ATTEND Hospitalist
DX: I13.0 Hypertensive heart and chronic kidney disease with heart failure and stage 1 through stage 4 chronic kidney disease, or unspecified chronic kidney disease (principal); I50.23 Acute on chronic systolic (congestive) heart failure; N17.9 Acute kidney failure, unspecified; N18.4 Chronic kidney disease, stage 4 (severe); N25.81 Secondary hyperparathyroidism of renal origin; E11.22 Type 2 diabetes mellitus with diabetic chronic kidney disease; E11.65 Type 2 diabetes mellitus with hyperglycemia; E83.42 Hypomagnesemia; E78.5 Hyperlipidemia, unspecified; E03.9 Hypothyroidism, unspecified; I25.10 Atherosclerotic heart disease of native coronary artery without angina pectoris; T50.2X5A Adverse effect of carbonic-anhydrase inhibitors, benzothiadiazides and other diuretics, initial encounter; Z88.5 Allergy status to narcotic agent; Z95.5 Presence of coronary angioplasty implant and graft; Z88.1 Allergy status to other antibiotic agents; Z79.4 Long term (current) use of insulin; Z90.49 Acquired absence of other specified parts of digestive tract; Z79.82 Long term (current) use of aspirin; Z79.02 Long term (current) use of antithrombotics/antiplatelets; Z98.51 Tubal ligation status; Z79.899 Other long term (current) drug therapy; Z91.199 Patient's noncompliance with other medical treatment and regimen due to unspecified reason
CPT/HCPCS: 36415; 71045; 76770; 80048; 80076; 82550; 82947; 83735; 83880; 84484; 85025; 85610; 93005; 96374; 96375; 99285; J1644; J1815; J1940

== ENCOUNTER 2023-08-15 16:25 | Emergency (ER) | payer BC ==
--- OUTSIDE RECORDS SUMMARY | 2023-08-15 16:31 | XMS REPORT | Continuity of Care Document ---
Author Name Unknown Address [address] [facility] [address] [place] [address] [facility] thconnect Address [address] [place] [address] Care Team Providers Care Client Support Coordinator Name Role Phone Jeet Manley MD Primary Care Physician [phone] CHALO CHRISTIANSON Attending Clinician Unavailable [id number] Attending Clinician Unavailable GAYATRI DEE Attending Clinician Nate galeas GC_GCBZW_Lita_Sara Attending Clinician ENA Hidalgo Attending Clinician Unavailable Faith Michel MD Attending Clinician [phone] FAITH MICHEL Attending Clinician Ayde Benavides, 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 Attending Clinician Ayde Elliott MD, Marciano Smith Attending Clinician [phone] MARCIANO ELLIOTT Attending Clinician Unavailabl e Doctor Unassigned, [place] Attending Clinician U Rissa Newton KUMAR Attending Clinician Unavailab forrest Haynes MD, Grzegorz Attending Clinician [phone] GRZEGORZ HAYNES Attending Clinician Unavailabl e RADIOLOGY Attending Clinician Unavailable KANE GARCIA Attending Clinician Unava ilable ODESSA ROBERTO Attending Clinician Unavailable BENSON CASTRO Attending Clinician Unavail able BENSON CASTRO Attending Clinician Unavail able Kermit VILCHIS, Benson Parker Attending Clinician [phone] Radiology Attending Clinician Unavailable CHALO CHRISTIANSON Attending Clinician Unavailable ANG ANNE Attending Clinician Unav Stephen Otoole Rahil Attending Clinician Unavail able Francisco VILCHIS, Danya Attending Clinician [phone] DANYA SINGH Attending Clinician Unavailable Sarah Harrison Attending Clinician Unava ilable iNle VILCHIS, Gayatri Luna Attending Clinician + [phone] [place], [facility] Attending Clinician Unavailable Mali Carter Attending Clinician [phone] EMMANUELLE SCHULTE Attending Clinician Unavaila Latricia Childs DO Attending Clinician [phone] Latasha Fernandez MD Attending Clinician + [phone] LATASHA FERNANDEZ Attending Clinician Unavaila LATASHA Gupta Attending Clinician Unavaila irina Johnson Attending Clinician Unavailable [facility] Attending Clinician Unavaila Jose Raul Dee DO Attending Clinician [phone], [facility] Attending Clinician Unavailable JAN VALENTINE Attending Clinician Unavailable Jan Valentine MD Attending Clinician [phone] Jcarlos RIVAS, Yazmin Najera Attending Clinician [phone] SUSANNAH WANG Attending Clinician Unavailable Sb Escobar MD Attending Clinician [phone] Susannah Wang MD Attending Clinician [phone] SB ESCOBAR Attending Clinician Unavailable SIVA ALVAREZ Attending Clinician Unavailable Siva Dia Attending Clinician [phone] Admitting Clinician Unavailable GAYATRI DEE Admitting Clinician Nate brandiforrest GC_GCBZW_Kadiyala_S Admitting Clinician Unavaila irina ARELISENA Admitting Clinician Unavailable Jeet Manley Admitting Clinician Unavailable FAITH MICHEL Admitting Clinician UnavailJEET Hernandez Admitting Clinician Unavailab Stephen Dai Rahil Admitting Clinician Unavail able Gayatri Dee MD Admitting Clinician [phone] BENSON CASTRO Admitting Clinician Unavail able Alex Admitting Clinician Unavailable SUSANNAH WANG Admitting Clinician Unavailable Susannah Wang MD Admitting Clinician JUDE EUCEDA Admitting Clinician Unavaila ble Payers Payer Name Policy Type Policy Number Effective Date Expirati on Date Source [place] OUT OF [place] [id number] 2007 00:00:00 BCBS [place] [id number] [place] OUT OF STATE [id number] 2018 00:00:00 [place] [id number] 2019 00:00:00 2021 00:00:00 Problems Condition Name Condition Details Condition Category Status Onset Date Resolution Date Last Treatment Date Treating Clinician Comments Source Nonrheumat ic mitral valve regurgitat ion Nonrheumat ic mitral valve regurgitat ion Disease Active 09-18 00:00: 00 [facility] Coronary artery disease involving [place] coronary artery without angina pectoris Coronary artery disease involving [place] coronary artery without angina pectoris Disease Active 09-18 00:00: 00 [facility] Presence of drug-eluti ng stent in anterior descending branch of left coronary artery Presence of drug-eluti ng stent in anterior descending branch of left coronary artery Disease Active 09-18 00:00: 00 [facility] Chronic systolic heart failure Chronic systolic heart failure Disease Active 2022-0 7-15 00:00: 00 [facility] Congestive heart failure, NYHA class 3 and ACC/AHA stage C Congestive heart failure, NYHA class 3 and ACC/AHA stage C Disease Active 7-15 00:00: 00 [facility] GADIEL (obstructi ve sleep apnea) GADIEL (obstructi ve sleep apnea) Disease Active 9-21 00:00: 00 [facility] Obesity Obesity Problem Active 5-06 00:00: 00 [facility] Irritable bowel syndrome Irritable Bowel Syndrome Problem Active 22 00:00: 00 [facility] Low blood pressure Low Blood Pressure Problem Active 18 00:00: 00 [facility] Dizziness and giddiness Dizziness and Giddiness Problem Active 08-22 00:00: 00 [facility] Essential hypertensi on Essential Hypertensi on Problem Active 07-25 00:00: 00 [facility] Gastropare sis syndrome Gastropare sis Syndrome Problem Active 07-25 00:00: 00 [facility] Proteinuri a Proteinuri a Problem Active 07-25 00:00: 00 [facility] Hypertensi ve disorder Hypertensi ve Disorder Problem Active 07-25 00:00: 00 [facility] Localized edema Localized Edema Problem Active 07-25 00:00: 00 [facility] Hypoxia Hypoxia Disease Active 06-03 00:00: 00 [facility] Acute diastolic congestive heart failure Acute diastolic congestive heart failure Disease Active 06-03 00:00: 00 [facility] Pneumonia due to infectious organism Pneumonia due to infectious organism Disease Active 30 00:00: 00 [facility] HTN (hypertens ion) HTN (hypertens ion) Disease Active 30 00:00: 00 [facility] Urinary tract infectious disease Urinary Tract Infectious Disease Problem Active 2018-03 0-02 00:00: 00 [facility] Hyperlipid emia Hyperlipid emia Problem Active 811 00:00: 00 [facility] Elevated levels of transamina se & lactic acid dehydrogen ase Elevated Levels of Transamina se & Lactic Acid Dehydrogen ase Problem Active 10-15 00:00: 00 [facility] Finding of urine substance level Finding of Urine Substance Level Problem Active 10-15 00:00: 00 [facility] Hypothyroi dism Hypothyroi dism Problem Active 09-12 00:00: 00 [facility] 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 Due to Type 2 Diabetes Mellitus Problem Active 09-12 00:00: 00 [facility] Family history of diabetes mellitus Family History of Diabetes Mellitus Problem Active 09-12 00:00: 00 [facility] Screening for disorder Screening for Disorder Problem Active 09-12 00:00: 00 [facility] Tinea pedis Tinea Pedis Problem Active 09-12 00:00: 00 [facility] Type 2 diabetes mellitus Type 2 diabetes mellitus Disease Active 07-17 00:00: 00 [facility] Hyperlipid emia Hyperlipid emia Disease Active 07-17 00:00: 00 [facility] Nephrolith iasis Nephrolith iasis Disease Active 07-17 00:00: 00 [facility] Allergies, Adverse Reactions, Alerts Allergy Name Allergy Type Status Severity Reaction(s) Onset Date Inactive Date Treating Clinician Comments Source Sulfamet hoxazole -Trimeth oprim Allergy to substanc e Active 09-18 00:00: [address] [facility] AMLODIPI NE DRUG INGREDI Active Swelling 2020-03 00:00: 00 [facility] Amlodipi ne Propensi ty to adverse reaction s Active Swelling 2020-03- 00:00: 00 [facility] Sulfamet hoxazole Propensi ty to adverse reaction s Active Swelling - 00:00: 00 [facility] Trimetho prim Propensi ty to adverse reaction s Active Swelling - 00:00: 00 [facility] TRIMETHO PRIM DRUG INGREDI Active Swelling - 00:00: 00 [facility] SULFAMET HOXAZOLE DRUG INGREDI Active Low Swelling 11-11 00:00: 00 [facility] Lisinopr il Propensi ty to adverse reaction s Active Cough 07-14 00:00: 00 [facility] LISINOPR IL DRUG INGREDI Active COUGH 07-14 00:00: 00 [facility] No Known Allergie s DA Active U 08-22 00:00: 00 [facility] No Known Allergie s DA Active U 08-22 00:00: 00 [facility] Tramadol Allergy to substanc e Active Itching 08-10 00:00: 00 Other reaction( s): Hives/[facility] Tramadol Propensi ty to adverse reaction s Active Itching 08-10 00:00: 00 [facility] TRAMADOL DRUG INGREDI Active ITCHING 08-10 00:00: 00 [facility] Metformi n Allergy to substanc e Active Diarrhea [facility] Ramipril Allergy to substanc e Active Rash [facility] Social History Social Habit Start Date Stop Date Quantity Comments Source History of tobacco use Current smoker [facility] Exposure to SARS-CoV-2 (event) 2022-05-04 00:00:00 2022-05-14 16:23:00 Not sure [facility] History of Social function 2020-11-12 00:00:00 2020-11-12 00:00:00 [facility] Tobacco Comment 2020-11-11 00:00:00 2020-11-11 00:00:00 quit 30 yrs ago [facility] Alcohol intake 2020-06-13 00:00:00 2020-06-13 00:00:00 .48 /d [facility] Tobacco use and exposure 2010-07-10 00:00:00 2010-07-10 00:00:00 Smokeless tobacco non-user [facility] Sex Assigned At 1970 00:00:00 1970 00:00:00 [facility] Smoking Status Start Date Stop Date Source Tobacco smoking consumption unknown [facility] Ex-smoker 2020-11-11 00:00:00 2020-11-11 00:00:00 [facility] Never smoked tobacco [facility] Medications Ordered Medication Name Filled Medication Name Start Date Stop Date Current Medication? Ordering Clinician Indication Dosage Frequency Signature (SIG) Comments Components Source barium sulfate (LIQUID E-Z PAQUE) 60 % (w/v) oral suspension 340 g 09-03 14:00: 00 09-03 17:31 :00 No [id number] 340g 340 g, Oral, ONCE, 1 dose, On Tue09/03/22 at 0900, Routine [facility] iopamidol (ISOVUE 370-500 mL) injection 60 mL 04-02 20:35: 00 04-02 20:46 :00 No [id number] 60mL 60 mL, Intravenou s, ONCE, 1 dose, On Tue04/02/22 at 1445, Routine [facility] topiramate 100 mg tablet 2021-03 00:00: 00 Yes [id number] 100mg Take 1 tablet by mouth in the morning and 1 tablet in the evening. [facility] SUMAtriptan 50 mg tablet 2021-03 00:00: 00 02-24 05:59 :00 No [id number] 50mg Take 1 tablet by mouth once now for 1 dose. [facility] topiramate 50 mg tablet 2021-03 00:00: 00 02-23 00:00 :00 No [id number] 50mg Take 1 tablet by mouth in the morning and 1 tablet in the evening. [facility] cholecalcif kassidy (Vitamin D-3) 25 MCG (1000 UT) capsule 09-18 13:29: 29 Yes Take by mouth. [facility] linaGLIPtin (Tradjenta) 5 MG tablet 09-18 13:29: 29 Yes Tradjenta 5 mg tablet TAKE 1 TABLET BY MOUTH ONCE DAILY IN THE MORNING [facility] Entresto 24-26 MG tablet 09-16 00:00: 00 Yes Q.5D Take by mouth 2 (two) times a day. [facility] torsemide (Demadex) 20 MG tablet 09-06 00:00: 00 Yes 80mg QD Take 80 mg by mouth 1 (one) time each day. TAKE 4 TABLETS BY MOUTH ONCE DAILY [facility] [employer]ATOR Thyroid 60 MG tablet 08-14 00:00: 00 Yes 60mg QD Take 60 mg by mouth 1 (one) time each day. on an empty stomach [facility] carvedilol (Coreg) 6.25 MG tablet 07-24 00:00: 00 Yes 6.25mg Q.5D Take 6.25 mg by mouth in the morning and 6.[address] [facility] topiramate (Topamax) 25 MG tablet 07-24 00:00: 00 Yes 25mg Take 25 mg by mouth if needed. [facility] atorvastati n (Lipitor) 40 MG tablet 07-07 00:00: 00 Yes 40mg Take 40 mg by mouth every night. [facility] EQ Aspirin Adult Low Dose 81 MG EC tablet 07-07 00:00: 00 Yes 81mg QD Take 81 mg by mouth 1 (one) time each day. [facility] clopidogrel (Plavix) 75 MG tablet 07-07 00:00: 00 Yes 75mg QD Take 75 mg by mouth 1 (one) time each day. [facility] Farxiga 10 MG 04-25 00:00: 00 Yes 10mg QD Take 10 mg by mouth 1 (one) time each day. [facility] cloniDINE 0.1 mg/24 hr patch 2020-03 00:00: 00 Yes [id number] 1{patch } Apply 1 Patch to skin weekly. [facility] carvediloL 12.5 mg tablet 2020-03 15:47: 03 Yes 12.5mg Take 12.5 mg by mouth 2 (two) times daily with meals. [facility] insulin aspart (NOVOLOG FLEXPEN U-100 INSULIN SC) 2020-03 11:25: 42 Yes inject under the skin. Per SS [facility] aspirin 81 mg chewable tablet 2020-03 11:25: 42 Yes 81mg Take 81 mg by mouth daily. [facility] dapaglifloz in (FARXIGA) 5 mg tablet 2020-03 11:25: 42 Yes Take by mouth daily. [facility] linaGLIPtin (TRADJENTA) 5 mg tablet 2020-03 11:25: 42 Yes Take by mouth daily. [facility] TURMERIC ORAL 2020-03 11:25: 42 Yes 500mg Take 500 mg by mouth 2 (two) times daily. [facility] Cholecalcif kassidy, Vitamin D3, (VITAMIN D3) 25 mcg (1,000 unit) capsule 2020-03 11:25: 42 Yes Take by mouth daily. [facility] bumetanide 1 mg tablet 2020-03 11:25: 42 Yes 1mg 1 mg at bedtime. [facility] ergocalcife rol, vitamin d2, (VITAMIN D2) 1,250 mcg (50,000 unit) capsule 2020-03 11:25: 42 Yes [id number] Take 50,000 Units by mouth weekly. [facility] nystatin 100,000 unit/mL suspension 2020-03 11:25: 42 Yes Take by mouth 4 (four) times daily. [facility] amLODIPine 10 mg tablet 2020-03 00:00: 00 02-12 00:00 :00 No [id number] 10mg Take 1 tablet by mouth daily. [facility] topiramate 25 mg tablet 2020-03 00:00: 00 01-18 00:00 :00 No [id number] 25mg Take 1 tablet by mouth 2 (two) times daily. [facility] spironolact one 25 mg tablet 11-25 00:00: 00 Yes [id number] 02 25mg Take 1 tablet by mouth daily. [facility] thyroid (ARMOUR THYROID) 30 mg tablet 11-25 00:00: 00 Yes [id number] 15mg Take 0.5 tablets by mouth every morning. [facility] gabapentin 100 mg capsule -19 00:00: 00 Yes [id number] 100mg Take 1 capsule by mouth 3 (three) times daily. [facility] flash glucose scanning reader (FREESTYLE YASH 14 DAY READER) [facility] 06-04 00:00: 00 Yes [id number] 1{appli catorfu l} 1 Applicator ful 4 (four) times daily. Check glucose QID as directed [facility] flash glucose sensor (FREESTYLE YASH 14 DAY SENSOR) Kit 06-04 00:00: 00 Yes [id number] 1{appli cator} 1 Applicator 4 (four) times daily. [facility] Adult Aspirin Regimen 81 mg [...] 4 times daily [facility] FreeStyle Yash 14 Day Goodwin FreeStyle Yash 14 Day Goodwin No FreeStyle Yash 14 Day Goodwin [facility] FreeStyle Yash 14 Day Sensor FreeStyle Yash 14 Day Sensor No FreeStyle Yash 14 Day Sensor [facility] FreeStyle Yash 14 Day Sensor kit USE DAILY BUT CHANGE EVERY 14 DAYS FreeStyle Yash 14 Day Sensor kit USE DAILY BUT CHANGE EVERY 14 DAYS No FreeStyle Yash 14 Day Sensor kit USE DAILY BUT CHANGE EVERY 14 DAYS [facility] [employer] Thyroid 30 mg tablet TAKE 1 TABLET BY MOUTH ONCE DAILY FOR 30 DAYS GREEN[employer] O[employer]ATOR Thyroid 30 mg tablet TAKE 1 TABLET BY MOUTH ONCE DAILY FOR 30 DAYS No 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 [facility] Vitamin D2 Vitamin D2 No Vitamin D2 [facility] Vitamin D3 1000 IU DAILY Vitamin D3 1000 IU DAILY No Vitamin D3 1000 IU DAILY [facility] Vital Signs Vital Name Observation Time Observation Value Comments Sara tovar Systolic blood pressure 2022-02-23 20:45:00 105 mm[Hg] [facility] Diastolic blood pressure 2022-02-23 20:45:00 74 mm[Hg] [facility] Heart rate 2022-02-23 20:45:00 77 /min [facility] Body height 2022-02-23 20:45:00 157.5 cm [facility] Body weight 2022-02-23 20:45:00 48.081 kg [facility] BMI 2022-02-23 20:45:00 19.39 kg/m2 [facility] Oxygen saturation in Arterial blood by Pulse oximetry 2022-02-23 20:45:00 99 /min [facility] Systolic blood pressure 2022-01-18 22:23:00 149 mm[Hg] [facility] Diastolic blood pressure 2022-01-18 22:23:00 84 mm[Hg] [facility] Heart rate 2022-01-18 22:23:00 68 /min [facility] Body weight 2022-01-18 22:23:00 50.803 kg [facility] BMI 2022-01-18 22:23:00 20.49 kg/m2 [facility] Oxygen saturation in Arterial blood by Pulse oximetry 2022-01-18 22:23:00 94 /min [facility] Systolic blood pressure 2021-09-18 18:29:00 156 mm[Hg] [facility] Diastolic blood pressure 2021-09-18 18:29:00 85 mm[Hg] [facility] Heart rate 2021-09-18 18:29:00 69 /min [facility] Respiratory rate 2021-09-18 18:29:00 16 /min [facility] Body weight 2021-09-18 18:29:00 55.792 [facility] Oxygen saturation in Arterial blood by Pulse oximetry 2021-09-18 18:29:00 97 /min [facility] BP Diastolic 2020-07-10 00:00:00 86 mm[Hg] [facility] Height 2020-07-10 00:00:00 62 [in_i] [facility] BMI (Body Mass Index) 2020-07-10 00:00:00 33.5 kg/m2 [facility] BP Systolic 2020-07-10 00:00:00 137 mm[Hg] [facility] Body Weight 2020-07-10 00:00:00 183 [lb_av] [facility] BP Diastolic 2020-02-07 00:00:00 78 mm[Hg] [facility] Height 2020-02-07 00:00:00 62 [in_i] [facility] BMI (Body Mass Index) 2020-02-07 00:00:00 33 kg/m2 [facility] BP Systolic 2020-02-07 00:00:00 122 mm[Hg] [facility] Body Weight 2020-02-07 00:00:00 180.2 [lb_av] [facility] BP Diastolic 2019-12-24 00:00:00 78 mm[Hg] [facility] Height 2019-12-24 00:00:00 62 [in_i] [facility] BMI (Body Mass Index) 2019-12-24 00:00:00 31.5 kg/m2 [facility] BP Systolic 2019-12-24 00:00:00 110 mm[Hg] [facility] Body Weight 2019-12-24 00:00:00 172 [lb_av] [facility] Procedures Procedure Date / Time Performed Performing Clinician Source CONSENT/REFUSAL FOR DIAGNOSIS AND TREATMENT 2022-06-23 20:02:57 Doctor Unassigned, [place] [facility] PHYSICIAN ORDERS 2022-05-14 06:01:00 Doctor Unas signed, [place] [facility] HB CREATININE SERUM/BLOOD FOR IMAGING 2022-04-02 21:10:00 Faith Michel [facility] CT ABDOMEN PELVIS W CONTRAST 2022-04-02 20:43:00 aFith Michel [facility] CBC WITH DIFF 2022-03-29 22:37:00 [facility] 2022-03-29 22:23:51 Doctor Unassigned, [place] [facility] ECG 12-LEAD 2021-09-18 21:45:54 Chalo Christianson [facility] ealth CONSENT/REFUSAL FOR DIAGNOSIS AND TREATMENT 2021-06-23 18:30:15 Doctor Unassigned, [place] [facility] ASSIGNMENT OF BENEFITS 2021-06-23 18:30:01 Doctor Unassigned, [place] [facility] [id number] 2021-04-21 00:00:00 [facility] Plan of Care Planned Activity Planned Date Details Comments Source Diagnostic Test Pending 2020-07-10 00:00:00 glucose, fingerstick, blood [code = glucose, fingerstick, blood] [facility] Diagnostic Test Pending 2020-07-10 00:00:00 hemoglobin A1C, fingerstick [code = hemoglobin A1C, fingerstick] [facility] Encounters Start Date/Time End Date/Time Encounter Type Admission Type Attending [facility] Care Department Encounter ID Source 2022-07-15 12:08:12 Outpatient [facility] [id number] [facility] 2022-07-14 13:01:54 Outpatient [facility] [id number] [facility] 2022-04-05 13:49:37 Outpatient [facility] [id number] [facility] 2021-09-22 17:34:30 Outpatient [facility] [id number] [facility] 2021-09-18 13:11:20 Outpatient CHALO CHRISTIANSON [facility] [id number] [facility] 2021-09-17 13:49:24 Outpatient [facility] [id number] [facility] 2021-09-16 14:24:43 Outpatient CHALO CHRISTIANSON [facility] [id number] [facility] 2021-04-02 13:46:27 Outpatient 3 [id number] [facility] PUL [id number] [facility] 2021-04-02 13:45:28 Outpatient 3 [id number] E[facility] PUL [id number] [facility] 2021-04-02 13:44:46 Outpatient 3 [id number] ENC[facility] PUL [id number] [facility] [place] 2021-04-02 13:43:23 Outpatient 3 [id number] ENC[facility] REF [id number] [facility] [place] [facility] 2021-01-05 19:43:30 Outpatient R GAYATRI LOBO [facility] [id number] [facility] 2021-01-05 13:14:53 Emergency [facility] [id number] [facility] 2023-01-05 17:18:55 2023-01-05 17:18:55 Outpatient [facility] [id number] Jude Swift Heraclio 2022-12-31 00:00:00 2022-12-31 00:00:00 Outpatient GC_GCBZW_Ka diyala_S [facility] [id number] [facility] 2022-10-19 14:14:12 2022-10-19 14:14:12 Outpatient [facility] [id number] Jude F Heraclio 2022-09-22 11:09:00 2022-09-25 17:32:00 Inpatient ENA [facility] MED [id number] Memcarlota garcia 2022-09-03 09:35:23 2022-09-03 23:59:00 Hospital Encounter MichelFaith can [facility] [id number] [facility] 2022-09-03 08:49:31 2022-09-03 09:34:00 Hospital Encounter Faith Michel [facility] 1.114 350.1.13.10 4.2.7.2.686 [id number] [facility] 2022-09-03 00:00:00 2022-09-03 09:34:00 Outpatient R [facility] [id number] [facility] 2022-08-24 16:45:00 2022-08-24 17:00:00 Sql Etl Developer Visit Pob, 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 Marciano Elliott [facility] 1..114 350.1.13.10 4.2.7.2.686 [id number] [facility] 2022-08-24 16:45:00 2022-08-24 16:45:00 Outpatient R MARCIANO ELLIOTT [facility] [id number] [facility] 2022-06-25 00:00:00 2022-06-25 00:00:00 Outpatient R [facility] [id number] [facility] 2022-06-23 15:15:00 2022-06-23 15:30:00 Sql Etl Developer Visit Pob, 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 Marciano Elliott [facility] 1.84.114 350.1.13.10 4.2.7.2.686 [id number] [facility] 2022-06-23 15:15:00 2022-06-23 15:15:00 [facility] [id number] [facility] 2022-06-23 00:00:00 2022-06-23 00:00:00 Orders Only Doctor Unassigned, Honaker [facility] 1.114 350.1.13.10 4.2.7.2.686 [id number] [id number] [facility] 2022-06-17 21:22:00 2022-06-17 21:22:00 Outpatient Rissa Lange [facility] [id number] [facility] 2022-05-14 16:30:00 2022-05-14 16:45:00 Sql Etl Developer Visit [facility], [facility] Lab [facility] 1.2.840.114 350.1.13.10 4.2.7.2.686 [id number] [facility] 2022-05-14 16:30:00 2022-05-14 16:30:00 Outpatient Sagar [facility] [id number] [facility] 2022-05-14 00:00:00 2022-05-14 00:00:00 Orders Only Doctor Unassigned, Honaker [facility] 1.2.840.114 350.1.13.10 4.2.7.2.686 [id number] [id number] [facility] 2022-04-12 14:30:00 2022-04-12 14:45:00 Sql Etl Developer Visit [facility] 1.2.840.114 350.1.13.10 4.2.7.2.686 [id number] [facility] 2022-04-12 14:30:00 2022-04-12 14:30:00 Outpatient GRZEGORZ GRANDE [facility] [id number] [facility] 2022-04-12 00:00:00 2022-04-12 00:00:00 Outpatient R RADIOLOGY [facility] [id number] [facility] 2022-04-05 13:48:00 2022-04-05 19:26:00 Emergency E KANE GARCIA [facility] [id number] [facility] 2022-04-05 13:25:00 2022-04-05 13:25:00 Outpatient R RADIOLOGY [facility] [id number] [facility] 2022-04-02 13:33:26 2022-04-02 23:59:00 Outpatient R FAITH MICHEL [facility] [id number] [facility] 2022-04-02 13:33:26 2022-04-02 23:59:00 Hospital Encounter Faith Michel [facility] 1.2840.114 350.1.13.10 4.2.7.2.686 [id number] [facility] 2022-03-29 16:30:00 2022-03-29 16:45:00 Sql Etl Developer Visit Pob, 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 Marilu [facility] PROFESSIO NAL BUILDING 1..840.114 350.1.13.10 4.2.7.2.686 [id number] 353 [id number] [facility] 2022-03-29 16:30:00 2022-03-29 16:30:00 Outpatient R MARILU FAITH [facility] [id number] [facility] 2022-03-29 00:00:00 2022-03-29 00:00:00 Orders Only Doctor Unassigned, Honaker [facility] 1.840.114 350.1.13.10 4.2.7.2.686 [id number] [facility] 2022-03-26 13:30:00 2022-03-26 13:30:00 Outpatient R ODESSA ROBERTO [facility] [id number] [facility] 2022-02-23 14:30:00 2022-02-23 15:08:25 Outpatient R ODESSA ROBERTO [facility] [id number] [facility] 2022-02-23 14:30:00 2022-02-23 15:08:25 Office Visit Odessa Roberto [facility] 1.2840.114 350.1.13.10 4.2.7.2.686 [id number] [id number] [facility] 2022-02-15 00:00:00 2022-02-15 00:00:00 Patient Secure Msg Doctor Unassigned, Honaker [facility] 1..840.114 350.1.13.10 4.2.7.2.686 [id number] [facility] 2022-01-18 16:30:00 2022-01-18 16:38:58 Outpatient R BENSON CASTRO HOWARD [facility] [id number] [facility] 2022-01-18 16:30:00 2022-01-18 16:38:58 Office Visit Odessa Roberto Howard Gene [facility] 1..840.114 350.1.13.10 4.2.7.2.686 [id number] [facility] 2021-12-11 00:00:00 2021-12-11 00:00:00 Refill Benson Castro [facility] 1..840.114 350.1.13.10 4.2.7.2.686 [id number] [id number] [facility] 2021-11-30 15:57:43 2021-11-30 23:59:00 Outpatient R RADIOLOGY [facility] [id number] [facility] 2021-11-30 15:57:43 2021-11-30 23:59:00 Hospital Encounter Radiology [facility] 1..840.114 350.1.13.10 4.2.7.2.686 [id number] [facility] 2021-10-01 11:00:00 2021-10-01 23:59:[address] [facility] [id number] [facility] 2021-09-18 13:40:00 2021-09-18 14:48:02 Office Visit Chalo Christianson [facility] [address] 1.2.840.114 350.1.13.58 9.2.7.2.[id number] [facility] 2021-07-06 16:36:00 2021-07-07 15:54:00 Outpatient ANG ANNE COOKIEALEKSANDER CAR [facility] [facility] 2021-06-23 13:45:00 2021-06-23 14:00:00 Sql Etl Developer Visit Pob, 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 Grzegorz Haynes [facility] BUILDING 1..840.114 350.1.13.10 4.2.7.2.686 [id number] [facility] 2021-06-23 13:45:00 2021-06-23 13:45:00 Outpatient GRZEGORZ GRANDE [facility] [id number] [facility] 2021-06-23 00:00:00 2021-06-23 00:00:00 Orders Only Doctor Unassigned, Honaker [facility] 1.840.114 350.1.13.10 4.2.7.2.686 [id number] [facility] 2021-04-06 20:57:00 2021-04-25 12:25:00 Inpatient 3 Stephen Ojeda [facility]UL [id number] [place] [facility] 2021-02-23 00:00:00 2021-02-23 00:00:00 [facility] 1..840.114 350.1.13.10 4.2.7.2.686 [id number] 059 [id number] [facility] 2021-02-09 00:00:00 2021-02-09 00:00:00 [facility] 1..840.114 350.1.13.10 4.2.7.2.686 [id number] 059 [id number] [facility] 2021-01-26 11:23:08 2021-01-26 11:43:42 [facility] 1..840.114 350.1.13.10 4.2.7.2.686 [id number] [facility] 2021-01-26 11:20:00 2021-01-26 11:43:42 Outpatient [facility] [id number] [facility] 2021-01-26 11:20:00 2021-01-26 11:43:42 Outpatient [facility] [id number] [facility] 2021-01-26 11:20:00 2021-01-26 11:20:00 Outpatient [facility] [id number] [facility] 2021-01-22 07:50:27 2021-01-22 08:43:54 Sql Etl Developer Visit Pob, 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 Marciano Elliott [facility] BUILDING 1..840.114 350.1.13.10 4.2.7.2.686 [id number] 353 [id number] [facility] 2021-01-22 07:45:00 2021-01-22 08:43:54 Outpatient R MARCIANO ELLIOTT [facility] [id number] [facility] 2021-01-22 07:45:00 2021-01-22 07:45:00 Outpatient R MARCIANO ELLIOTT [facility] [id number] [facility] 2020-12-25 00:00:00 2020-12-25 00:00:00 [facility] 1..840.114 350.1.13.10 4.2.7.2.686 [id number] [facility] 2020-12-23 00:00:00 2020-12-23 00:00:00 Telephone Sarah Espinal [facility] 1.2.840.114 350.1.13.10 4.2.7.2.686 [id number] [facility] 2020-12-23 00:00:00 2020-12-23 00:00:00 Patient Secure Msg Doctor Unassigned, Honaker [facility] 1.2.840.114 350.1.13.10 4.2.7.2.686 [id number] [facility] 2020-12-17 07:54:57 2020-12-17 23:59:00 Hospital Encounter Radiology [place] 1..840.114 350.1.13.10 4.2.7.2.686 [id number] [facility] 2020-12-17 00:00:00 2020-12-17 00:00:00 Outpatient R RADIOLOGY [facility] [id number] [facility] 2020-11-25 13:48:41 2020-11-25 14:12:26 [facility] 1.2.840.114 350.1.13.10 4.2.7.2.686 [id number] [facility] 2020-11-25 13:40:00 2020-11-25 13:40:00 Outpatient R TAHIRA SINGHCOUNT INCLUDES [facility] [id number] [facility] 2020-11-14 00:00:00 2020-11-14 00:00:00 [facility] 1.2.840.114 350.1.13.10 4.2.7.2.686 [id number] [facility] 2020-11-14 00:00:00 2020-11-14 00:00:00 Danya Neff [facility]al Building 1.2.840.114 350.1.13.10 4.2.7.2.686 [id number] [facility] 2020-11-12 12:08:00 2020-11-12 12:43:00 Surgery Gayatri Lobo [facility] [place] 1.2.840.114 350.1.13.10 4.2.7.2.686 [id number] 020 [id number] [facility] 2020-11-12 12:08:00 2020-11-12 12:43:00 Surgery Gayatri Lobo [facility] [place] 1.2.840.114 350.1.13.10 4.2.7.2.686 [id number] [facility] 2020-11-12 10:46:00 2020-11-12 12:35:00 Hospital Encounter Gayatri Lobo [facility] [place] 1.2.840.114 350.1.13.10 4.2.7.2.686 [id number] [id number] [facility] 2020-11-12 10:46:00 2020-11-12 12:35:00 Hospital Encounter Gayatri Lobo [facility] [place] 1.2.840.114 350.1.13.10 4.2.7.2.686 [id number] [id number] [facility] 2020-11-11 08:12:07 2020-11-11 08:27:07 Laboratory Only Only, Adc Test Grzegorz Haynes [place] 1.2.840.114 350.1.13.10 4.2.7.2.686 [id number] [facility] 2020-11-11 08:12:07 2020-11-11 08:27:07 Laboratory Only Only, Adc Test Grzegorz Haynes [place] 1.20.114 350.1.13.10 4.2.7.2.686 [id number] [facility] 2020-11-11 08:15:00 2020-11-11 08:15:00 Outpatient R [facility] [id number] [facility] 2020-10-24 00:00:00 2020-10-24 00:00:00 Orders Only Doctor Unassigned, Honaker [facility] 1..114 350.1.13.10 4.2.7.2.686 [id number] [id number] [facility] 2020-10-08 18:34:00 2020-10-08 22:22:00 Emergency Mali Rosado [place] 1..114 350.1.13.10 4.2.7.2.686 [id number] [facility] 2020-10-07 00:00:00 2020-10-07 00:00:00 Telephone Benson Castro [facility] Profess[facility]al Building 1..84.114 350.1.13.10 4.2.7.2.686 [id number] 092 [id number] [facility] 2020-10-03 00:00:00 2020-10-03 00:00:00 Patient Secure Danya Bbo [facility] PROFESSIO NAL BUILDING 1.84.114 350.1.13.10 4.2.7.2.686 [id number] [facility] 2020-10-01 10:00:00 2020-10-01 10:00:00 Outpatient R EMMANUELLE SCHULTE [facility] [id number] [facility] 2020-10-01 00:00:00 2020-10-01 00:00:00 Orders Only Doctor Unassigned, Honaker [facility] 1.2840.114 350.1.13.10 4.2.7.2.686 [id number] [facility] 2020-09-26 08:11:48 2020-09-26 08:26:48 Laboratory Only Only, Adc Test Latricia Montana [place] 1.2840.114 350.1.13.10 4.2.7.2.686 [id number] [facility] 2020-09-26 08:00:00 2020-09-26 08:00:00 Outpatient R [facility] [id number] [facility] 2020-09-23 11:10:57 2020-09-23 11:46:21 Office Visit Benson Castro [facility] Building 1.2840.114 350.1.13.10 4.2.7.2.686 [id number] 092 [id number] [facility] 2020-09-23 11:10:57 2020-09-23 11:46:21 Office Visit [facility] 1.2840.114 350.1.13.10 4.2.7.2.686 [id number] 2020-09-23 11:00:00 2020-09-23 11:00:00 Outpatient R BENSON CASTRO HOWARD [facility] [id number] [facility] 2020-09-17 00:00:00 2020-09-17 00:00:00 Orders Only Doctor Unassigned, Honaker [facility] 1.2840.114 350.1.13.10 4.2.7.2.686 [id number] [facility] 2020-08-27 11:24:21 2020-08-27 11:54:21 Office Visit Thomasbeltran Latasha Sam [facility] 1.2.840.114 350.1.13.10 4.2.7.2.686 [id number] [facility] 2020-08-27 11:30:00 2020-08-27 11:30:00 Outpatient R LATASHA FERNANDEZ STRATXTashia [facility] [id number] [facility] 2020-08-27 00:00:00 2020-08-27 00:00:00 Telephone Danya Singh [facility] 1.2.840.114 350.1.13.10 4.2.7.2.686 [id number] [id number] [facility] 2020-08-25 14:02:06 2020-08-25 14:32:42 Office Visit Tahira Singhmallory [facility] 1.2.840.114 350.1.13.10 4.2.7.2.686 [id number] [facility] 2020-08-25 14:00:00 2020-08-25 14:00:00 Outpatient R TAHIRA SINGHMALLORY [facility] [id number] [facility] 2020-08-25 00:00:00 2020-08-25 00:00:00 Orders Only Doctor Unassigned, Honaker [facility] 1.2.840.114 350.1.13.10 4.2.7.2.686 [id number] [facility] 2020-08-19 00:00:00 2020-08-19 00:00:00 Telephone Benson Castro [facility] 1.2.840.114 350.1.13.10 4.2.7.2.686 [id number] [facility] 2020-08-13 14:00:00 2020-08-13 14:00:00 Outpatient R LATASHA FERNANDEZ THOMASBELTRANLATASHA [facility] [id number] [facility] 2020-07-31 15:26:34 2020-07-31 23:59:00 Hospital Encounter Besnon Castro [place] 1.2.840.114 350.1.13.10 4.2.7.2.686 [id number] [facility] 2020-07-31 15:26:34 2020-07-31 23:59:00 Outpatient BENSON CASEY HOWARD [facility] [id number] [facility] 2020-07-31 00:00:00 2020-07-31 00:00:00 Outpatient BENSON CASEY HOWARD [facility] [id number] [facility] 2020-07-30 00:00:00 2020-07-30 00:00:00 Brittaney [facility] 1..840.114 350.1.13.10 4.2.7.2.686 [id number] [id number] [facility] 2020-07-29 00:00:00 2020-07-29 00:00:00 Patient Secure Msg Singh [facility] BUILDING 1.2.840.114 350.1.13.10 4.2.7.2.686 [id number] [facility] 2020-07-28 08:21:39 2020-07-28 08:36:39 Sql Etl Developer Visit Pob, 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 [facility] 1.2.840.114 350.1.13.10 4.2.7.2.686 [id number] [facility] 2020-07-28 08:30:00 2020-07-28 08:30:00 Out[facility] [id number] [facility] 2020-07-28 00:00:00 2020-07-28 00:00:00 Telephone Benson [facility] 1.2.840.114 350.1.13.10 4.2.7.2.686 [id number] [id number] [facility] 2020-07-15 00:00:00 2020-07-15 00:00:00 Telephone Benson Castro [facility] 1..840.114 350.1.13.10 4.2.7.2.686 [id number] [id number] [facility] 2020-07-14 14:38:23 2020-07-14 15:12:09 Office Visit Francisco [facility] 1..840.114 350.1.13.10 4.2.7.2.686 [id number] [facility] 2020-07-14 14:40:00 2020-07-14 14:40:00 Outpatient TAHIRA CONTICOUNT INCLUDES [facility] [id number] [facility] 2020-07-12 01:24:00 2020-07-12 01:24:[address] Benjamin_Flaco [facility] [id number] [facility] 2020-07-10 00:00:00 2020-07-10 00:00:00 Samm Alexander MD: [id number] [employer] [place] [facility], [address], [place] [address] , Ph. Alex [facility] - _HOU_Duglasmarina [place] [id number] [facility] e 2020-07-01 12:13:16 2020-07-01 12:28:16 Sql Etl Developer Visit [facility] Latasha Fernandez [place] 1.2840.114 350.1.13.10 4.2.7.2.686 [id number] [facility] 2020-07-01 12:00:00 2020-07-01 12:00:00 Outpatient R GASTON, LATASHA FERNANDEZ, DAVIDTXTashia [facility] [id number] [facility] 2020-06-27 11:33:44 2020-06-27 11:48:44 Laboratory Only Only, Adc Test Grzegorz Haynes [place] 1.2840.114 350.1.13.10 4.2.7.2.686 [id number] [facility] 2020-06-27 10:30:00 2020-06-27 10:30:00 Outpatient R [facility] [id number] [facility] 2020-06-27 00:00:00 2020-06-27 00:00:00 Orders Only Doctor Unassigned, Honaker [facility] 1.840.114 350.1.13.10 4.2.7.2.686 [id number] [id number] [facility] 2020-06-20 00:00:00 2020-06-20 00:00:00 Patient Secure Msg Francisco [facility] BUILD[facility] 1.840.114 350.1.13.10 4.2.7.2.686 [id number] 059 [id number] [facility] 2020-06-19 14:00:00 2020-06-19 14:00:00 Outpatient R TAHIRA SINGHCOUNT INCLUDES THE [facility] [id number] [facility] 2020-06-15 00:00:00 2020-06-15 00:00:00 Patient Secure Msnaty Singh [facility] PROFESSIO NAL BUILDING 1.840.114 350.1.13.10 4.2.7.2.686 [id number] [facility] 2020-06-13 10:48:23 2020-06-13 23:59:00 [facility] 1.20.114 350.1.13.10 4.2.7.2.686 [id number] [facility] 2020-06-13 10:47:50 2020-06-13 11:02:50 Sql Etl Developer Visit Pob, 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 Francisco [facility] Professio nal Building 1.2.84.114 350.1.13.10 4.2.7.2.686 [id number] [facility] 2020-06-13 09:10:33 2020-06-13 10:22:02 [facility] 1.284.114 350.1.13.10 4.2.7.2.686 [id number] [facility] 2020-06-13 09:20:00 2020-06-13 09:20:00 Outpatient TAHIRA CONTICOUNT INCLUDES THE [facility] [id number] [facility] 2020-06-09 00:00:00 2020-06-09 00:00:00 Telephone Benson Castro [facility] Building 1.2.840.114 350.1.13.10 4.2.7.2.686 [id number] [facility] 2020-06-04 00:00:00 2020-06-04 00:00:00 Outpatient BENSON CASEY HOWARD [facility] [id number] [facility] 2020-05-28 00:00:00 2020-05-28 00:00:00 Telephone [facility]neson [facility] 1.2.840.114 350.1.13.10 4.2.7.2.686 [id number] [facility] 2020-05-27 00:00:00 2020-05-27 00:00:00 Patient Outreach Jose Raul Li [facility] PAVNUNUON 1.2114 350.1.13.10 4.2.7.2.686 [id number] [facility] 2020-05-23 10:49:27 2020-05-23 11:04:27 Sql Etl Developer Visit 2, Adc Lab Benson Castro [facility] Building 1.84.114 350.1.13.10 4.2.7.2.686 [id number] [facility] 2020-05-23 08:19:24 2020-05-23 10:59:14 Office Visit Benson Castro [facility] 1.84.114 350.1.13.10 4.2.7.2.686 [id number] [facility] 2020-05-23 08:40:00 2020-05-23 08:40:00 Outpatient BENSON CASEY HOWARD [facility] [id number] [facility] 2020-05-19 00:00:00 2020-05-19 00:00:00 Orders Only Doctor Unassigned, Honaker [facility] 1.84.114 350.1.13.10 4.2.7.2.686 [id number] [facility] 2020-04-10 07:43:00 2020-04-10 07:43:00 Outpatient Alex NASHP VFP [id number] [facility] 2020-04-09 08:19:39 2020-04-09 08:34:39 Sql Etl Developer Visit Pob, 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 Marciano Elliott [facility] Building 1.84.114 350.1.13.10 4.2.7.2.686 [id number] [facility] 2020-04-09 08:15:00 2020-04-09 08:15:00 Outpatient MARCIANO NIXON [facility] [id number] [facility] 2020-04-09 00:00:00 2020-04-09 00:00:00 Orders Only Doctor Unassigned, Honaker [facility] ..114 350.1.13.10 4.2.7.2.686 [id number] [facility] 2020-03-14 03:25:00 2020-03-14 03:25:00 Outpatient Daniel_T VFP VFP [id number] [facility] 2020-03-01 01:02:00 2020-03-01 01:02:00 Outpatient Daniel_T VFP VFP [id number] [facility] 2020-02-11 07:53:00 2020-02-11 07:53:00 Outpatient Daniel_T VFP VFP [id number] [facility] 2020-02-07 00:00:00 2020-02-07 00:00:00 Samm Alexander MD: [id number] [address] , Ph. Daniel_T VFP [place] - [facility] - VM_HOU_Alphonse crawley [id number] [facility] 2020-01-08 08:00:00 2020-01-08 08:00:00 Outpatient MARCIANO NIXON [facility] [id number] [facility] 2020-01-08 07:39:55 2020-01-08 07:54:55 Sql Etl Developer Visit Pob, 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 Marciano Elliott [facility] 1.840.114 350.1.13.10 4.2.7.2.686 [id number] [facility] 2020-01-08 00:00:00 2020-01-08 00:00:00 Orders Only Doctor Unassigned, [place] [facility] 1..840.114 350.1.13.10 4.2.7.2.686 [id number] [facility] 2019-12-31 02:04:00 2019-12-31 02:04:00 Outpatient Daniel_T VFP VFP [id number] [facility] 2019-12-24 00:00:00 2019-12-24 00:00:00 Samm Alexander MD: [id number] [facility], [address] [address] , Ph. Daniel_T VFP [facility]_MEKHIAlphonse crawley [id number] [facility] 2019-12-18 07:41:51 2019-12-18 07:56:51 Sql Etl Developer Visit Pob, 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 Marciano Elliott [facility] 1..840.114 350.1.13.10 4.2.7.2.686 [id number] [facility] 2019-12-18 07:45:00 2019-12-18 07:45:00 Outpatient MARCIANO NIXON [facility] [id number] [facility] 2019-12-13 04:08:00 2019-12-13 04:08:00 Outpatient Daniel_T VFP VFP [id number] [facility] 2019-12-03 03:40:00 2019-12-03 03:40:00 Outpatient Daniel_T VFP VFP [id number] [facility] 2019-11-08 13:23:04 2019-11-08 13:38:04 Sql Etl Developer Visit Pob, 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 Marciano Elliott [facility] 1..840.114 350.1.13.10 4.2.7.2.686 [id number] [facility] 2019-11-08 13:15:00 2019-11-08 13:15:00 Outpatient MARCIANO NIXON [facility] [id number] [facility] 2019-11-08 00:00:00 2019-11-08 00:00:00 Orders Only Doctor Unassigned, Honaker [facility] 1..840.114 350.1.13.10 4.2.7.2.686 [id number] [facility] 2019-11-07 10:47:00 2019-11-07 10:47:00 Outpatient Daniel_T VFP VFP [id number] [facility] 2019-10-04 10:10:00 2019-10-04 23:59:00 Hospital Encounter Marciano Elliott [place] 1..840.114 350.1.13.10 4.2.7.2.686 [id number] [facility] 2019-10-04 10:15:33 2019-10-04 10:30:33 Sql Etl Developer Visit Pob, 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 [facility] 1.2.840.114 350.1.13.10 4.2.7.2.686 [id number] [facility] 2019-10-04 00:00:00 2019-10-04 00:00:00 Outpatient MARCIANO NIXON [facility] [id number] [facility] 2019-08-23 16:12:00 2019-09-06 01:47:20 Inpatient HCAPM KEI [id number] [facility] 2019-08-23 16:16:00 2019-08-26 22:36:52 Inpatient HCAPM KEI [id number] [facility] 2019-08-03 10:30:00 2019-08-03 10:30:00 Outpatient JAN MICHAEL [facility] [id number] [facility] 2019-08-03 09:58:47 2019-08-03 10:13:47 Sql Etl Developer Visit Pob, 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 Jan [facility] 1.2.840.114 350.1.13.10 4.2.7.2.686 [id number] [facility] 2019-08-03 00:00:00 2019-08-03 00:00:00 Orders Only Doctor Unassigned, Honaker [facility] 1.2.840.114 350.1.13.10 4.2.7.2.686 [id number] [facility] 2019-06-06 00:00:00 2019-06-06 00:00:00 Transition of Care Yazmin Garber Yvette Little 1.2.840.114 350.1.13.10 4.2.7.2.686 [id number] [facility] 2019-06-03 20:41:23 2019-06-05 12:45:00 Inpatient X SUSANNAH WANG [facility] [id number] [facility] 2019-06-03 20:41:23 2019-06-05 12:45:00 Hospital Encounter Shawn Lolygabrielle Sara WangSusannah [place] 1.2.840.114 350.1.13.10 4.2.7.2.686 [id number] [facility] 2019-06-03 20:41:23 2019-06-03 20:41:23 Emergency X BEAR ESCOBARCARA [facility] E[facility] [id number] [facility] 2019-04-27 02:15:54 2019-04-27 06:35:00 Emergency [facility] 1.2.840.114 350.1.13.10 4.2.7.2.686 [id number] [facility] 2019-04-26 22:52:50 2019-04-27 01:20:00 Emergency X SIVA ALVAREZ [facility] [id number] [facility] 2019-04-26 22:52:50 2019-04-27 01:20:00 Emergency SIVA SALES [facility] [id number] [facility] 2019-04-26 22:52:50 2019-04-27 01:20:00 Emergency Siva Alvarez S [place] 1.2.840.114 350.1.13.10 4.2.7.2.686 [id number] [facility] Results Test Description Test Time Test Comments Results Result Co mments Source [facility] WITH [id number] 22:56:35* Test Item Value Reference Range Interpretation [...] g/dL 31.6-35.1 L RDW-SD (test code = 85760-4) 50.4 fL 39.0-49.9 H RDW-CV (test code = 788-0) 15.2 % 12.0-15.5 PLT (test code = 777-3) See_Comment [Automated messa ge] The system which generated this result transmitted reference range: 166 - 358 10*3/?L. The reference range was not used to interpret this result as normal/abnormal. MPV (test code = 84152-2) 10.0 fL 9.5-12.9 NRBC/100 WBC (test code = 9300071737) See_Comment [Automated me ssage] The system which generated this result transmitted reference range: 0.0 - 10.0 /100 WBCs. The reference range was not used to interpret this result as normal/abnormal. NRBC x10^3 (test code = 9963440634) See_Comment [Automated messa ge] The system which generated this result transmitted reference range: 10*3/?L. The reference range was not used to interpret this result as normal/abnormal. GRAN MAT (NEUT) % (test code = 770-8) 73.0 % IMM GRAN % (test code = 1793500429) 0.30 % LYMPH % (test code = 736-9) 15.3 % MONO % (test code = 5905-5) 6.9 % EOS % (test code = 713-8) 3.9 % BASO % (test code = 706-2) 0.6 % GRAN MAT x10^3(ANC) (test code = 3599509203) 2.43 10*3/uL 1.88-7.09 IMM GRAN x10^3 (test code = 5000126896) 0.00-0.06 LYMPH x10^3 (test code = 731-0) 0.51 10*3/uL 1.32-3.29 L MONO x10^3 (test code = 742-7) 0.23 10*3/uL 0.33-0.92 L EOS x10^3 (test code = 711-2) 0.13 10*3/uL 0.03-0.39 BASO x10^3 (test code = 704-7) 0.01-0.07 Lab Interpretation (test code = 75253-6) [facility]normal [facility] METABOLIC [id number] 18:36:00* Test Item Value Reference Range Interpretation [...] N Completed by Nursing: NONT PRO-BRAIN NATRIURETIC [id number] 18:36:00* Test Item Value Reference Range Interpretation Comme nts NT PRO-BRAIN NATRIURETIC PEP TI (test code = PROBNP) 368 PG/ML 0-100 H Completed by Nursing: [id number]-[id number] 18:36:00* Test Item Value Reference Range Interpretation [...] Completed by Nursing: NODRUGS OF ABUSE SCREEN [id number] 18:36:00* Test Item Value Reference Range Interpretation [...] [place]) NEGATIVE SCcutoff <300 NG/ML BASIC METABOLIC [id number] 18:32:00* Test Item Value Reference Range Interpretation [...] N Completed by Nursing: NONT PRO-BRAIN NATRIURETIC [id number] 18:32:00* Test Item Value Reference Range Interpretation Comme nts NT PRO-BRAIN NATRIURETIC PEP TI (test code = PROBNP) PG/ML 0-100 Completed by Nursing: [id number]-[id number] 18:32:00* Test Item Value Reference Range Interpretation Comme nts TROPONIN-I (test code = TROPI) NG/ML 0.000-0.045 Completed by Nursing: NOCBC W/AUTO [id number] 18:20:00* Test Item Value Reference Range Interpretation [...] NO DIFF/SCN CRITERIA - CT HEAD/BRAIN W/O [id number] 17:04:00Name: MORELIA MAYFIELD [facility] : 1970 Age/S: 49 / F [id number] Unit #: [id number] Loc: [place] [address] Phys: Domenica Quinn MD Acct: [id number] Dis Date: Status:PRE ER PHONE #: [phone] Exam Date: 08/23/2019 1637 FAX #: Reason: syncope EXAMS: CPT: [id number] CT HEAD/BRAIN W/O CONT 28326 INDICATIONS: syncope TECHNIQUE: Contiguous axial CT sections [...] Quinn MD; Ly JOSE; Jeet Manley MD Technologist:RT Génesis(R)(CT) CTDI: DLP: Trnscb Date/Time: 08/23/2019 (170) t.SDR.NB16 Orig Print D/T: S: 08/23/2019 (1707) PAGE 1 Signed Report Notes Date/Time Note Provider Source 2019-08-23 18:50:00 [id number] 7TcN6sClOsPfZVievcqcKCHZ2bFd7 KIaMAE5IWTJorjHsM9PVO89vfLQ4y5c6za2664-32-29O11:5 0:00 [facility] ([facility])EMERGENCY PROVIDER REPORTREPORT#:[id number] REPORT STATUS: SignedDATE:08/23/19 TIME:1849 PATIENT: MORELIA AMYFIELD UNIT #: [id number]#: [id number] ROOM/BED:: 68 AGE: 49 SEX: F PCP [...] date Free Text HPI NotesFree Text HPI Jaaly11-hosf-hbn female with past medical history of hypertension [...] Temp 36.7 08/22 1616 Pulse 86 08/22 1616 Resp 08/22 Last Documented: Result Date Time Pulse Ox 98 08/22 1909 B/P 162/90 08/22 1909 B/P Mean 114 08/22 1909 O2 Delivery Room air 08/22 1909 Pulse 85 08/22 1909 Resp 16 08/22 1909 Temp 36.7 06/18 1617 Review of Vital Signs Reviewed Basic Physical [...] 08/23/19 1635:[Embedded Image Not Available]Laboratory Tests: 08/22 1634 Chemistry [...] % (Auto) (20.5 - 51.1 %) 22.1 [place] % (Auto) (1.7 - 9.3 %) 7.9 Eos % (Auto) (0.0 - 6.0 %) 2.5 Baso % (Auto) (0.0 - 2.0 %) 0.5 Neut # (Auto) (1.8 - 7.6 K/mm3) 4.0 Lymph # (Auto) (0.6 - 3.2 K/mm3) 1.3 [place] # (Auto) (0.3 - 1.1 K/mm3) 0.5 [...] of hemorrhage, mass or stroke.Impression By: ScottieNBJed Cramer M.D. Lab Imaging StatementLaboratory radiographic studies [...] Result Date Time Pulse Ox 98 08/22 191 B/P 162/90 08/22 191 B/P Mean 114 08/22 191 O2 Delivery Room air 08/22 191 Pulse 85 08/22 1910 Resp 16 08/22 1910 Temp 36.7 08/22 1617 All vital signs available at the time of this entry have been reviewed. Condition Improved, Stable Clinical ImpressionClinical ImpressionPrimary Impression: DizzinessSecondary Impressions: DehydrationTime of Impression 1850 Disposition DecisionDischarge )( Discharged to Home Yes )( Time 1850 )( Date 08/23/19 Discharge/Care PlanRefJeet Grier MD (PCP/Family) at 2018 RPT #: [id number] OF REPORTEDEmergency department gnbkrb7607-48-75M70:50:00L.[id number] ilable for patient pnaiAUTPARGXOXDKMZ1710-41-65Y59:18:47 [facility] 2019-08-23 18:50:00 [id number] a+oqCy6deEQU3RDxsYSpdUDYlPEH9 N2SRYNk1rdrC6nb0LaCWCYEvemlQL1XF0v0705-47-40E15:5 0:00 [facility] ([facility])EMERGENCY PROVIDER REPORTREPORT#:[id number] REPORT STATUS: SignedDATE:08/23/19 TIME:1849 PATIENT: MORELIA MAYFIELD UNIT #: [id number]#: [id number] ROOM/BED:: 68 AGE: 49 SEX: F PCP [...] date Free Text HPI NotesFree Text HPI Ehwpd33-kweo-gux female with past medical history of hypertension [...] 08/23/19 1635:[Embedded Image Not Available]Laboratory Tests: 08/22 1634 Chemistry [...] % (Auto) (20.5 - 51.1 %) 22.1 [place] % (Auto) (1.7 - 9.3 %) 7.9 Eos % (Auto) (0.0 - 6.0 %) 2.5 Baso % (Auto) (0.0 - 2.0 %) 0.5 Neut # (Auto) (1.8 - 7.6 K/mm3) 4.0 Lymph # (Auto) (0.6 - 3.2 K/mm3) 1.3 [place] # (Auto) (0.3 - 1.1 K/mm3) 0.5 [...] Report Impression - Status: SIGNED Entered: 08/23/2019 4889 IMPRESSION: 1. No evidence of acute intracranial abnormality.2. Specifically, no evidence of hemorrhage, mass or stroke.Impression By: ScottieNB16 - Miguel Cramer M.D. Lab Imaging StatementLaboratory [...] O2 Delivery Room air 08/22 1617 Temp 98.1 08/22 1617 Pulse 86 08/22 1617 Resp 16 08/22 1617 Last Documented: Result Date Time Pulse Ox 98 08/22 1910 B/P 162/90 08/22 1910 B/P Mean 114 08/22 1910 O2 Delivery Room air 08/22 1910 Pulse 85 08/22 1910 Resp 16 08/22 1910 Temp 98.1 08/22 1617 All vital signs available at the time of this entry have been reviewed. Condition Improved, Stable Clinical ImpressionClinical ImpressionPrimary Impression: DizzinessSecondary Impressions: DehydrationTime of Impression 1850 Disposition DecisionDischarge )( Discharged to Home Yes )( Time 1850 )( Date 08/23/19 Discharge/Care PlanReferrJeet Tariq MD (PCP/Family) Domenica Quinn 08/28/19 1001:HPI-Dizziness/Weakness GeneralInitial Greet Date/Time 08/23/19 1626 Patient Discharge Departure Supervising Physician Note MidLv Saw Pt AloneI have reviewed the PA/GREENSTONE POLISHER OPERATOR's note and plan of care. I was available for consultation as needed at all times during the patient's visit in the emergency department. I agree with the clinical impression, plan and disposition. at 2018 at [address] [facility] #: [id number] OF REPORTEDEmergreat river medical center department uxagli4923-19-83M66:50:00L.[id number] ilable for patient dmehOBQWVGVIELGLUK5667-69-50G17:01:50 [facility]
[2023-08-15] MEDS ORDERED: INSULIN REGULAR (HUMAN) 100 UNIT/ML ONE ×3 (17:55→22:53)
[2023-08-15 18:01] LABS: Absolute Lymphocytes (CBC) 0.4 K/uL (0.7-4.9); Absolute Monocytes 0.3 K/uL (0.1-1.3); Absolute Neutrophil 3.7 K/uL (1.8-8.0); Basophils % 0.6 % (0-1.3); Hematocrit 29.6 % (36.0-45.0); Hemoglobin 9.6 g/dL (12.0-15.0); Lymphocytes % 9.6 % (15.3-44.8); MCH 30.6 pg (27.0-35.0); MCHC 32.6 g/dL (32.0-36.0); MCV 93.9 fL (80-100); MPV 9.9 fL (7.6-11.3); Neutrophils % 82.8 % (41.7-73.7); Nucleated Red Blood Cells % 0.1 % (0-0); Platelets 144 thou/uL (152-406); RBC Red Blood Cell Count 3.15 M/uL (3.86-4.86); Red Cell Distribution Width 14.1 % (12.1-15.2)
[2023-08-15 18:23] LABS: ALT/SGPT 37 U/L (13-56); Albumin 2.6 g/dL (3.4-5.0); Albumin/Globulin Ratio 0.7 (1.1-1.8); Alkaline Phosphatase 337 U/L (45-117); Anion Gap 11.4 mEq/L (5.0-15.0); BUN Blood Urea Nitrogen 37 mg/dL (7-18); Bicarbonate 26 mEq/L (21-32); Bilirubin Direct 0.2 mg/dL (0-0.2); Bilirubin Indirect, Calculated 0.2 mg/dL (0.2-0.8); Bilirubin Total 0.4 mg/dL (0.2-1.0); Globulin 3.6 g/dL (2.3-3.5); Glomerular Filtration Rate 14 ml/min (=/>90); Magnesium 2.2 mg/dL (1.6-2.4); Potassium 3.4 mEq/L (3.5-5.1); Protein, Total 6.2 g/dL (6.4-8.2); Sodium Level 123 mEq/L (136-145); Troponin High Sensitivity 30.6 pg/mL (<58.9)
--- NOTE | 2023-08-15 18:23 | RAD REPORT ---
EXAM DESCRIPTION: Gustavo Single View08/15/2023 5:42 pm CLINICAL HISTORY: Shortness breath COMPARISON: July 2023 FINDINGS: Moderate right and small left pleural effusions with basilar atelectasis Fpxd-af-uqbtmict bilateral pulmonary opacities probably pulmonary edema Cardiomegaly. Central venous catheter in place
[2023-08-15 18:24] LABS: AST/SGOT < 10 U/L (15-37)
[2023-08-15 18:25] LABS: Glucose Level 804 mg/dL (74-106)
[2023-08-15] MEDS ORDERED: carvediloL 6.25 MG TAB ONE (18:59)
--- NOTE | 2023-08-15 23:38 | ER ---
Nurse's Notes [facility] Name: Alyson Mayfield Age: 53 yrs Sex: Female : 1970 Arrival Date: 08/15/2023 Time: 16:25 Bed 7 Private MD: Diagnosis: Type 2 diabetes mellitus with hyperglycemia;End stage renal disease;Hypertensive heart and chronic kidney disease with heart failure and with stage 5 chronic kidney disease, or end stage renal disease;Essential (primary) hypertension Presentation: 08/14 16:34 Chief complaint: Patient states: SENT FROM [facility] FOR HIGH BLOOD SUGAR, HTN AND SOB. ll1 Coronavirus screen: At this time, the client does not indicate any symptoms associated with coronavirus-19. Ebola Screen: No symptoms or risks identified at this time. Initial Sepsis Screen: Does the patient meet any 2 criteria? No. Patient's initial sepsis screen is negative. Does the patient have a suspected source of infection? No. Patient's initial sepsis screen is negative. Risk Assessment: Do you want to hurt yourself or someone else? Patient reports no desire to harm self or others. Onset of symptoms was August 15, 2023. 16:34 Method Of Arrival: Ambulatory ll1 16:34 Acuity: KLAUS 3 ll1 Triage Assessment: 16:35 General: Appears in no apparent distress. Behavior is cooperative, appropriate for age, ll1 anxious. Pain: Denies pain. EENT: No deficits noted. Neuro: Level of Consciousness is awake, alert, obeys commands, Oriented to Appropriate for age. Cardiovascular: Rhythm is sinus rhythm. Respiratory: Reports shortness of breath cough that is Onset: The symptoms/episode began/occurred today, the patient has mild shortness of breath. GI: No signs and/or symptoms were reported involving the gastrointestinal system. : No signs and/or symptoms were reported regarding the genitourinary system. Derm: No deficits noted. Historical: - Allergies: 16:35 Bactrim; ll1 16:35 Tramadol HCl; ll1 - PMHx: 16:35 CHF; Diabetes - NIDDM; Hypertension; Kidney stones; Thyroid problem; ll1 - PSHx: 16:35 Cholecystectomy; ll1 - Immunization history:: Adult Immunizations up to date. - Infectious Disease History:: Denies. - Social history:: Smoking status: Patient denies any tobacco usage or history of. - Family history:: not pertinent. Screenin:45 [facility] ED Fall Risk Assessment (Adult) History of falling in the last 3 months, kc6 including since admission No falls in past 3 months (0 pts) Confusion or Disorientation No (0 pts) Intoxicated or Sedated No (0 pts) Impaired Gait No (0 pts) Mobility Assist Device Used No (0 pt) Altered Elimination No (0 pt) Score/Fall Risk Level 0 - 2 = Low Risk. Abuse screen: Denies threats or abuse. Denies injuries from another. Nutritional screening: No deficits noted. Tuberculosis screening: No symptoms or risk factors identified. Assessment: 17:45 General: Appears in no apparent distress. comfortable, slender, well groomed, Behavior kc6 is calm, cooperative, appropriate for age. Pain: Denies pain. Neuro: Level of Consciousness is awake, alert, obeys commands, Oriented to person, place, time, situation, Appropriate for age. Cardiovascular: Reports shortness of breath, Denies chest pain, Heart tones S1 S2 present Capillary refill < 3 seconds Rhythm is sinus rhythm Dialysis shunt: in the anterior aspect of right upper chest, with no erythema, with no edema, no bleeding noted. Respiratory: Airway is patent Trachea midline Respiratory effort is even, unlabored, Respiratory pattern is regular, symmetrical, Breath sounds with crackles bilaterally. GI: No signs and/or symptoms were reported involving the gastrointestinal system. : No signs and/or symptoms were reported regarding the genitourinary system. EENT: No signs and/or symptoms were reported regarding the EENT system. Derm: No signs and/or symptoms reported regarding the dermatologic system. Skin is intact, is healthy with good turgor, Skin is dry, Skin is pale, Skin temperature is warm. Musculoskeletal: No signs and/or symptoms reported regarding the musculoskeletal system. Circulation, motion, and sensation intact. Capillary refill < 3 seconds, Range of motion: intact in all extremities. 20:50 Reassessment: No changes from previously documented assessment. Patient and/or family vc1 updated on plan of care and expected duration. Pain level reassessed. Patient is alert, oriented x 3, equal unlabored respirations, skin warm/dry/pink. 20:50 General: Appears in no apparent distress. comfortable, slender, well groomed, Behavior vc1 is calm, cooperative, appropriate for age. Pain: Denies pain. Neuro: Level of Consciousness is awake, alert, obeys commands, Oriented to person, place, time, situation, Appropriate for age. Cardiovascular: Reports shortness of breath, Denies chest pain, Heart tones S1 S2 present Capillary refill < 3 seconds Patient's skin is warm and dry. Rhythm is sinus rhythm Dialysis shunt: in the anterior aspect of right upper chest. Respiratory: Airway is patent Trachea midline Respiratory effort is even, unlabored, Respiratory pattern is regular, symmetrical, Breath sounds with crackles bilaterally. GI: No signs and/or symptoms were reported involving the gastrointestinal system. Abdomen is flat, non-distended. : No deficits noted. No signs and/or symptoms were reported regarding the genitourinary system. EENT: No deficits noted. No signs and/or symptoms were reported regarding the EENT system. Derm: Skin is intact, is healthy with good turgor, Skin is dry, Skin is normal, Skin temperature is warm. Musculoskeletal: No deficits noted. No signs and/or symptoms reported regarding the musculoskeletal system. Circulation, motion, and sensation intact. Range of motion: intact in all extremities. 22:25 Reassessment: No changes from previously documented assessment. Patient and/or family vc1 updated on plan of care and expected duration. Pain level reassessed. Patient is alert, oriented x 3, equal unlabored respirations, skin warm/dry/pink. 23:40 Reassessment: D/c instruction given to patient, she verbalizes understanding of kd4 instruction. patient to follow up with pcp, continue dialysis and med as prescribed. iv line d/c. ok to d/c per MD. Vital Signs: 16:34 BP 178 / 103; Pulse 77; Resp 18; Temp 98.7; Pulse Ox 94% ; ll1 18:25 BP 192 / 85; Pulse 70; Resp 18; Pulse Ox 100% on R/A; kc6 19:03 BP 189 / 99; Pulse 79; Resp 18 S; Pulse Ox 98% on R/A; kc6 20:49 BP 170 / 93; Pulse 71; Resp 19; Pulse Ox 100% ; vc1 22:24 BP 172 / 91; Pulse 61; Resp 20; Pulse Ox 98% ; vc1 23:39 BP 181 / 92; Pulse 63; Resp 18; Temp 98.1; Pulse Ox 98% on R/A; Pain 0/10; kd4 23:39 Pain Scale: Adult kd4 Soledad Coma Score: 23:40 Eye Response: spontaneous(4). Motor Response: obeys commands(6). Verbal Response: kd4 oriented(5). Total: 15. ED Course: 16:27 Patient arrived in ED. mr 16:32 Ezio Askew MD is Attending Physician. rt 16:35 Triage completed. ll1 16:35 Arm band placed on. ll1 16:45 Inserted saline lock: 20 gauge in right antecubital area, using aseptic technique. kc6 Blood collected. 17:31 Patient placed in an exam room, on a stretcher. ll1 17:43 XRAY Chest (1 view) In Process Unspecified. EDMS 17:45 Patient has correct armband on for positive identification. Placed in gown. Bed in low kc6 position. Call light in reach. Side rails up X 1. quality assurance monitor final on. Pulse ox on. NIBP on. Warm blanket given. Pillow given. 17:57 Marii Molina RN is Primary Nurse. kc6 19:00 Report given to ROB Montemayor. kc6 20:17 Attending Physician role handed off by Ezio Askew MD sp4 20:17 Lee Leija MD is Attending Physician. sp4 23:49 No provider procedures requiring assistance completed. IV discontinued. kd4 23:50 Provided Education on: discharge instruction. kd4 Administered Medications: 17:57 Drug: Insulin Regular Human IVP 10 units IVP once {Co-Signature: filemon (Bethany Hamilton RN).} Route: IVP; Site: right antecubital; 19:00 Follow up: Response: No adverse reaction; Blood sugar is unchanged kc6 23:52 Follow up: Response: No adverse reaction kd4 19:03 Drug: carvedilol PO 12.5 mg PO once Route: PO; kc6 23:52 Follow up: Response: No adverse reaction kd4 19:04 Drug: Insulin Regular Human IVP 10 units IVP once; hold for glucose less than 250 kc6 {Co-Signature: filemon (Bethany Hamilton RN).} Route: IVP; Site: right antecubital; 23:52 Follow up: Response: No adverse reaction kd4 23:00 Drug: Insulin Regular Human IVP 5 units IVP once {Co-Signature: vc1 (Albina Dubon4 RN).} Route: IVP; Site: right antecubital; 23:51 Follow up: Response: No adverse reaction kd4 Point of Care Testing: Blood Glucose: 20:37 Blood Glucose: 474 mg/dL; vc1 Ranges: Outcome: 23:38 Discharge ordered by . chas 23:50 Discharged to home ambulatory, kd4 23:50 Condition: good 23:50 Discharge instructions given to patient, Instructed on discharge instructions, follow up and referral plans. Demonstrated understanding of instructions, 23:52 Patient left the ED. kd4 Signatures: Dispatcher [employer] EDMS EdiKristyn, Reg Reg mr Naveed Drake, RN RN ll1 Albina Dubon RN RN vc1 Marii Molina RN RN kc6 Ezio Askwe MD MD rt Potepalov, Sergey, MD MD sp4 Irene Clnacy RN RN kd4 Bethany Hamilton RN, Vanessa RN vc1
--- NOTE | 2023-08-15 23:38 | EDPHYS ---
Physician Documentation [facility] [place] Name: Alyson Mayfield Age: 53 yrs Sex: Female : 1970 Arrival Date: 08/15/2023 Time: 16:25 Bed 7 Private MD: ED Physician Lee Leija HPI: 08/14 19:12 This 53 yrs old Female presents to ER via Ambulatory with complaints of rt Shortness Of Breath, High Blood Pressure. 19:12 Patient has ESRD, went for regular scheduled dialysis today. Patient stated that she rt was short of breath at that time. The patient reportedly had hyperglycemia, that was unreadable as well as hypertension. This prevented her from starting dialysis. Denies chest pain, other acute complaints, symptoms are moderate in severity, no other aggravating alleviating factors.. Historical: - Allergies: 16:35 Bactrim; ll1 16:35 Tramadol HCl; ll1 - PMHx: 16:35 CHF; Diabetes - NIDDM; Hypertension; Kidney stones; Thyroid problem; ll1 - PSHx: 16:35 Cholecystectomy; ll1 - Immunization history:: Adult Immunizations up to date. - Infectious Disease History:: Denies. - Social history:: Smoking status: Patient denies any tobacco usage or history of. - Family history:: not pertinent. ROS: 19:12 Constitutional: Negative for fever, chills, and weight loss, Cardiovascular: Negative rt for chest pain, palpitations, and edema, Abdomen/GI: Negative for abdominal pain, nausea, vomiting, diarrhea, and constipation, MS/Extremity: Negative for injury and deformity, Skin: Negative for injury, rash, and discoloration, Neuro: Negative for headache, weakness, numbness, tingling, and seizure, 19:12 Respiratory: Positive for shortness of breath, Negative for cough, Exam: 19:12 Constitutional: This is a well developed, well nourished patient who is awake, alert, rt and in no acute distress. Head/Face: Normocephalic, atraumatic. Chest/axilla: Normal chest wall appearance and motion. Nontender with no deformity. No lesions are appreciated. Cardiovascular: Regular rate and rhythm with a normal S1 and S2. No gallops, murmurs, or rubs. Normal PMI, no JVD. No pulse deficits. Respiratory: Lungs have equal breath sounds bilaterally, clear to auscultation and percussion. No rales, rhonchi or wheezes noted. No increased work of breathing, no retractions or nasal flaring. Abdomen/GI: Soft, non-tender, with normal bowel sounds. No distension or tympany. No guarding or rebound. No evidence of tenderness throughout. Skin: Warm, dry with normal turgor. Normal color with no rashes, no lesions, and no evidence of cellulitis. MS/ Extremity: Pulses equal, no cyanosis. Neurovascular intact. Full, normal range of motion. Neuro: Awake and alert, GCS 15, oriented to person, place, time, and situation. Cranial nerves II-XII grossly intact. Motor strength 5/5 in all extremities. Sensory grossly intact. Cerebellar exam normal. Normal gait. 19:12 Chest/axilla: Dialysis catheter noted to right anterior chest. 19:12 ECG was reviewed by the Attending Physician. Vital Signs: 16:34 BP 178 / 103; Pulse 77; Resp 18; Temp 98.7; Pulse Ox 94% ; ll1 18:25 BP 192 / 85; Pulse 70; Resp 18; Pulse Ox 100% on R/A; kc6 19:03 BP 189 / 99; Pulse 79; Resp 18 S; Pulse Ox 98% on R/A; kc6 20:49 BP 170 / 93; Pulse 71; Resp 19; Pulse Ox 100% ; vc1 22:24 BP 172 / 91; Pulse 61; Resp 20; Pulse Ox 98% ; vc1 23:39 BP 181 / 92; Pulse 63; Resp 18; Temp 98.1; Pulse Ox 98% on R/A; Pain 0/10; kd4 23:39 Pain Scale: Adult kd4 Burgaw Coma Score: 23:40 Eye Response: spontaneous(4). Motor Response: obeys commands(6). Verbal Response: kd4 oriented(5). Total: 15. MDM: 16:41 Patient medically screened. rt 23:45 ED course: EXAM DESCRIPTION: Gustavo Reynolds View08/15/2023 5:42 pm CLINICAL HISTORY: sp4 Shortness breath COMPARISON: July 2023 FINDINGS: Moderate right and small left pleural effusions with basilar atelectasis [id number] bilateral pulmonary opacities probably pulmonary edema Cardiomegaly. Central venous catheter in place. 23:47 Differential diagnosis: Anxiety Reaction CHF exacerbation, Psychogenic. Data reviewed: sp4 vital signs, nurses notes, lab test result(s), EKG, radiologic studies, plain films. 23:48 ED course: Last blood sugar check is 298. Patient stable for discharge home. Advised to sp4 continue all home medications. Advised to attend dialysis tomorrow as scheduled.. 08/14 16:44 Order name: Basic Metabolic Panel; Complete Time: 18:27 rt 08/14 16:44 Order name: CBC with Diff; Complete Time: 18:25 rt 08/14 16:44 Order name: LFT's; Complete Time: 18:27 rt 08/14 16:44 Order name: Magnesium; Complete Time: 18:27 rt 08/14 16:44 Order name: Troponin HS; Complete Time: 18:27 rt 08/14 17:50 Order name: Glucose, Ancillary Testing; Complete Time: 18:25 EDMS 08/14 19:10 Order name: Glucose, Ancillary Testing; Complete Time: 19:11 EDMS 08/14 20:49 Order name: Glucose, Ancillary Testing; Complete Time: 22:27 EDMS 08/14 22:36 Order name: Glucose, Ancillary Testing; Complete Time: 22:57 EDMS 08/14 23:48 Order name: Glucose, Ancillary Testing; Complete Time: 23:48 EDMS 08/14 16:44 Order name: XRAY Chest (1 view); Complete Time: 18:25 rt 08/14 16:44 Order name: Cardiac monitoring; Complete Time: 17:57 rt 08/14 16:44 Order name: EKG - Nurse/Tech; Complete Time: 17:57 rt 08/14 16:44 Order name: IV Saline Lock; Complete Time: 17:57 rt 08/14 16:44 Order name: Labs collected and sent; Complete Time: 17:57 rt 08/14 16:44 Order name: O2 Per Protocol; Complete Time: 17:57 rt 08/14 16:44 Order name: O2 Sat Monitoring; Complete Time: 17:57 rt 08/14 16:44 Order name: Accucheck; Complete Time: 17:38 rt 08/14 18:49 Order name: Accucheck; Complete Time: 18:57 rt 08/14 19:43 Order name: Accucheck; Complete Time: 20:50 rt 08/14 23:09 Order name: Foster: Andrea vc1 EC:12 Rate is 65 beats/min. Rhythm is regular, Normal Sinus Rhythm with No ectopy. Right axis rt deviation noted. AL interval is normal. QRS interval is normal. QT interval is normal. No Q waves. Administered Medications: 17:57 Drug: Insulin Regular Human IVP 10 units IVP once {Co-Signature: db (Bethany Hamilton6 RN).} Route: IVP; Site: right antecubital; 19:00 Follow up: Response: No adverse reaction; Blood sugar is unchanged kc6 23:52 Follow up: Response: No adverse reaction kd4 19:03 Drug: carvedilol PO 12.5 mg PO once Route: PO; kc6 23:52 Follow up: Response: No adverse reaction kd4 19:04 Drug: Insulin Regular Human IVP 10 units IVP once; hold for glucose less than 250 kc6 {Co-Signature: db (Bethany Hamilton RN).} Route: IVP; Site: right antecubital; 23:52 Follow up: Response: No adverse reaction kd4 23:00 Drug: Insulin Regular Human IVP 5 units IVP once {Co-Signature: vc1 (Albina Dubon4 RN).} Route: IVP; Site: right antecubital; 23:51 Follow up: Response: No adverse reaction kd4 Point of Care Testing: Blood Glucose: 20:37 Blood Glucose: 474 mg/dL; vc1 Ranges: Critical Glucose Levels:Adult <50 mg/dl or >400 mg/dl <40 mg/dl or >180 mg/dl Disposition Summary: 08/15/23 23:38 Discharge Ordered Notes: Continue your dialysis and your daily medications Location: Home sp4 Problem: new sp4 Symptoms: have improved sp4 Condition: Stable sp4 Diagnosis - Type 2 diabetes mellitus with hyperglycemia sp4 - End stage renal disease sp4 - Hypertensive heart and chronic kidney disease with heart failure and with stage 5 sp4 chronic kidney disease, or end stage renal disease - Essential (primary) hypertension sp4 Followup: sp4 - With: Private Physician - When: 1 - 2 days - Reason: Recheck today's complaints Discharge Instructions: - Discharge Summary Sheet sp4 - Hyperglycemia sp4 Forms: - Patient Portal Instructions sp4 Signatures: Dispatcher [employer] EDMS Naveed Drake, RN RN ll1 Albina Dubon RN RN vc1 Marii Molina RN RN kc6 Ezio Askew MD MD rt Lee Leija MD MD sp4 Irene Clancy RN RN kd4 Bethany Hamilton RN db Albina Dubon RN vc1 Corrections: (The following items were deleted from the chart) 16:45 16:44 BASIC METABOLIC PANEL+C.LAB.BRZ ordered. EDMS EDMS 16:45 16:44 CBC+H.LAB.BRZ ordered. EDMS EDMS 16:45 16:44 HEPATIC FUNCTION+C.LAB.BRZ ordered. EDMS EDMS 16:45 16:44 MAGNESIUM+C.LAB.BRZ ordered. EDMS EDMS 16:45 16:45 Troponin High Sensitivity+C.LAB.BRZ ordered. EDMS EDMS 16:45 16:45 Chest Single View+RAD.RAD.BRZ ordered. EDMS EDMS
[2023-08-16 01:09] VITALS: BP 181/92; TEMP 98.1; O2SAT 98
--- NOTE | 2023-08-16 15:07 | EKG ---
Test Date: 2023-08-15 Test Time: 17:46:10 [employer]onics Engineering Technician: LAUREN MEASUREMENT RESULTS: Intervals: Rate: 65 IA: 150 QRSD: 74 QT: 452 QTc: 470 Adams: P: 96 IA: 150 QRS: 102 T: -69 INTERPRETIVE STATEMENTS: Suspect arm lead reversal, interpretation assumes no reversal Normal sinus rhythm Rightward axis T wave abnormality, consider inferior ischemia Prolonged QT Abnormal ECG Compared to ECG 07/14/2023 14:15:59 Right-axis deviation now present Possible ischemia now present T-wave abnormality still present Electronically Signed On 08-16-23 15:05:42 CDT by Heri Encarnacion
== END 2023-08-15 23:52 | disposition home or self-care (01) ==
LOC: ER 16:25
DX: E11.65 Type 2 diabetes mellitus with hyperglycemia (principal); I13.2 Hypertensive heart and chronic kidney disease with heart failure and with stage 5 chronic kidney disease, or end stage renal disease; N18.6 End stage renal disease; I50.9 Heart failure, unspecified; Z99.2 Dependence on renal dialysis
CPT/HCPCS: 36415; 71045; 80048; 80076; 82947; 83735; 84484; 85025; 93005; 96374; 99285

== ENCOUNTER 2023-08-18 00:17 | Observation (INO) | payer BC ==
--- OUTSIDE RECORDS SUMMARY | 2023-08-18 00:23 | XMS REPORT | Continuity of Care Document ---
Author Name Unknown Address [address] [facility] [address] [place] [address] [facility] thconnect Address [address] [facility] [address] [place] [address] Care Team Providers Care Tape Deck Installer Name Role Phone Jeet Manley MD Primary Care Physician [phone] CHALO CHRISTIANSON Attending Clinician Unavailable [id number] Attending Clinician Unavailable GAYATRI DEE Attending Clinician Nate galeas [email or web address] Attending Clinician ENA Hidalgo Attending Clinician Unavailable Faith Michel MD Attending Clinician [phone] FAITH MICHEL Attending Clinician Unavailabl e Pob, 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 Attending Clinician Unavailabl e Marilee VILCHIS, Marciano Smith Attending Clinician [phone] MARCIANO ELLIOTT Attending Clinician Unavailabl e Doctor Unassigned, [place] Attending Clinician U Rissa Newton MELLYMatthias Attending Clinician Unavailab forrest Haynes MD, Grzegorz Attending Clinician [phone] GRZEGORZ HAYNES Attending Clinician Unavailabl e RADIOLOGY Attending Clinician Unavailable KANE GARCIA Attending Clinician Unava ilable ODESSA ROBERTO Attending Clinician Unavailable BENSON CASTRO Attending Clinician Unavail able BENSON CASTRO Attending Clinician Unavail able Kermit VILCHIS, Benson Parker Attending Clinician [phone] Radiology Attending Clinician Unavailable CHALO CHRISTIANSON Attending Clinician Unavailable ANG ANNE Attending Clinician Unav annelieseable Stephen Ojeda Rahil Attending Clinician Unavail able Danya Singh MD Attending Clinician [phone] DANYA SINGH Attending Clinician Unavailable Teddy MONROE, Sarah Attending Clinician Unava ilable Nile VILCHIS, Gayatri Luna Attending Clinician + [phone] Only, Adc Test Attending Clinician Unavailable Mali Carter Attending Clinician [phone] EMMANUELLE SCHULTE Attending Clinician Unavaila Latricia Childs DO Attending Clinician [phone] Latasha Fernandez MD Attending Clinician + [phone] LATASHA FERNANDEZ Attending Clinician Unavaila LATASHA Gupta Attending Clinician Unavaila irina Johnson Attending Clinician Unavailable Tech, [facility] Attending Clinician Unavaila Jose Raul Dee DO Attending Clinician [phone], [facility] Attending Clinician Unavailable JAN VALENTINE Attending Clinician Unavailable Serge VILCHIS, Jan Attending Clinician [phone] Jcarlos RIVAS, Yazmin Najera Attending Clinician [phone] SUSANNAH WANG Attending Clinician Unavailable Sb Escobar MD Attending Clinician [phone] Susannah Wang MD Attending Clinician [phone] OTILIA SB Ruiz Attending Clinician Unavailable SIVA ALVAREZ Attending Clinician Unavailable Siva Dia Attending Clinician [id number] Admitting Clinician Unavailable GAYATRI DEE Admitting Clinician Siennachriss brandiforrest [email or web address]_S Admitting Clinician Unavaila ENA [place] Admitting Clinician Unavailable Jeet Manley Admitting Clinician Unavailable FAITH MICHEL Admitting Clinician Unavailabl JEET Grace Admitting Clinician Unavailab Stephen Dai Rahil Admitting Clinician Unavail able Gayatri Dee MD Admitting Clinician [phone] BENSON CASTRO Admitting Clinician Unavail able Alex Admitting Clinician Unavailable SUSANNAH WANG Admitting Clinician Unavailable Susannah Wang MD Admitting Clinician JUDE EUCEDA Admitting Clinician Unavaila irina Payers Payer Name Policy Type Policy Number Effective Date Expirati on Date Source [place] OUT OF [place] [id number] 2007 00:00:00 [facility]BS [facility] [id number] BCBS [facility] - OUT OF STATE [id number] 2018 00:00:00 [employer]BS[place]: (PPO) [id number] 2019 00:00:00 2021 00:00:00 Problems Condition Name Condition Details Condition Category Status Onset Date Resolution Date Last Treatment Date Treating Clinician Comments Source Nonrheumat ic mitral valve regurgitat ion Nonrheumat ic mitral valve regurgitat ion Disease Active 09-18 00:00: 00 [facility] Coronary artery disease involving [place] coronary artery without angina pectoris Coronary artery disease involving [place] coronary artery without angina pectoris Disease Active 09-18 00:00: 00 [facility] Presence of drug-eluti ng stent in anterior descending branch of left coronary artery Presence of drug-eluti ng stent in anterior descending branch of left coronary artery Disease Active 09-18 00:00: 00 [facility] Chronic systolic heart failure Chronic systolic heart failure Disease Active 15 00:00: 00 [facility] Congestive heart failure, NYHA class 3 and ACC/AHA stage C Congestive heart failure, NYHA class 3 and ACC/AHA stage C Disease Active 15 00:00: [address] [facility] GADIEL (obstructi ve sleep apnea) GADIEL (obstructi ve sleep apnea) Disease Active 9-21 00:00: 00 [facility] Obesity Obesity Problem Active 06 00:00: 00 [facility] Irritable bowel syndrome Irritable Bowel Syndrome Problem Active 06-26 00:00: 00 [facility] Low blood pressure Low Blood Pressure Problem Active 08-22 00:00: 00 [facility] Dizziness and giddiness Dizziness and Giddiness Problem Active 08-22 00:00: 00 [facility] Essential hypertensi on Essential Hypertensi on Problem Active 07-25 00:00: 00 [facility] Gastropare sis syndrome Gastropare sis Syndrome Problem Active 07-25 00:00: 00 [facility] Proteinuri a Proteinuri a Problem Active 07-25 00:00: 00 [facility] Hypertensi ve disorder Hypertensi ve Disorder Problem Active 07-25 00:00: 00 [facility] Localized edema Localized Edema Problem Active 07-25 00:00: 00 [facility] Hypoxia Hypoxia Disease Active 06-03 00:00: 00 [facility] Acute diastolic congestive heart failure Acute diastolic congestive heart failure Disease Active 06-03 00:00: 00 [facility] Pneumonia due to infectious organism Pneumonia due to infectious organism Disease Active 06-03 00:00: 00 [facility] HTN (hypertens ion) HTN (hypertens ion) Disease Active 06-03 00:00: 00 [facility] Urinary tract infectious disease Urinary Tract Infectious Disease Problem Active 2018-03 0-02 00:00: 00 [facility] Hyperlipid emia Hyperlipid emia Problem Active 8-11 00:00: 00 [facility] Elevated levels of transamina se & lactic acid dehydrogen ase Elevated Levels of Transamina se & Lactic Acid Dehydrogen ase Problem Active 10-15 00:00: 00 [facility] Finding of urine substance level Finding of Urine Substance Level Problem Active 10-15 00:00: 00 [facility] Hypothyroi dism Hypothyroi dism Problem Active 09-12 00:00: 00 [facility] 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 Due to Type 2 Diabetes Mellitus Problem Active 09-12 00:00: 00 [facility] Family history of diabetes mellitus Family History of Diabetes Mellitus Problem Active 09-12 00:00: 00 [facility] Screening for disorder Screening for Disorder Problem Active 09-12 00:00: 00 [facility] Tinea pedis Tinea Pedis Problem Active 09-12 00:00: 00 [facility] Type 2 diabetes mellitus Type 2 diabetes mellitus Disease Active 07-17 00:00: 00 [facility] Hyperlipid emia Hyperlipid emia Disease Active 07-17 00:00: 00 [facility] Nephrolith iasis Nephrolith iasis Disease Active 07-17 00:00: 00 [facility] Allergies, Adverse Reactions, Alerts Allergy Name Allergy Type Status Severity Reaction(s) Onset Date Inactive Date Treating Clinician Comments Source Sulfamet hoxazole -Trimeth oprim Allergy to substanc e Active 09-18 00:00: 00 [facility] AMLODIPI NE DRUG INGREDI Active Swelling 2020-03 00:00: 00 [facility] Amlodipi ne Propensi ty to adverse reaction s Active Swelling 2020-03 00:00: 00 [facility] Sulfamet hoxazole Propensi ty to adverse reaction s Active Swelling 11-11 00:00: 00 [facility] Trimetho prim Propensi ty to adverse reaction s Active Swelling 11-11 00:00: 00 [facility] TRIMETHO PRIM DRUG INGREDI Active Swelling 11-11 00:00: 00 [facility] SULFAMET HOXAZOLE DRUG INGREDI Active Low Swelling 11-11 00:00: 00 [facility] Lisinopr il Propensi ty to adverse reaction s Active Cough 07-14 00:00: 00 [facility] LISINOPR IL DRUG INGREDI Active COUGH 07-14 00:00: 00 [facility] No Known Allergie s DA Active U 08-22 00:00: 00 [facility] No Known Allergie s DA Active U 08-22 00:00: 00 [facility] Tramadol Allergy to substanc e Active Itching 08-10 00:00: 00 Other reaction( s): Hives/[facility] Tramadol Propensi ty to adverse reaction s Active Itching 08-10 00:00: 00 [facility] TRAMADOL DRUG INGREDI Active ITCHING 08-10 00:00: 00 [facility] Metformi n Allergy to substanc e Active Diarrhea [facility] Ramipril Allergy to substanc e Active Rash [facility] Social History Social Habit Start Date Stop Date Quantity Comments Source History of tobacco use Current smoker [facility] to SARS-CoV-2 (event) 2022-05-04 00:00:00 2022-05-14 16:23:00 Not sure [facility] History of Social function 2020-11-12 00:00:00 2020-11-12 00:00:00 [facility] Tobacco Comment 2020-11-11 00:00:00 2020-11-11 00:00:00 quit 30 yrs ago [facility] Alcohol intake 2020-06-13 00:00:00 2020-06-13 00:00:00 .48 /d [facility] Tobacco use and exposure 2010-07-10 00:00:00 2010-07-10 00:00:00 Smokeless tobacco non-user [facility] Sex Assigned At 1970 00:00:00 1970 00:00:00 [facility] Smoking Status Start Date Stop Date Source Tobacco smoking consumption unknown [facility] Ex-smoker 2020-11-11 00:00:00 2020-11-11 00:00:00 [facility] Never smoked tobacco [facility] Medications Ordered Medication Name Filled Medication Name Start Date Stop Date Current Medication? Ordering Clinician Indication Dosage Frequency Signature (SIG) Comments Components Source barium sulfate (LIQUID E-Z PAQUE) 60 % (w/v) oral suspension 340 g 09-03 14:00: 00 09-03 17:31 :00 No [id number] 340g 340 g, Oral, ONCE, 1 dose, On Tue09/03/22 at 0900, Routine [facility] iopamidol (ISOVUE 370-500 mL) injection 60 mL 04-02 20:35: 00 04-02 20:46 :00 No [id number] 60mL 60 mL, Intravenou s, ONCE, 1 dose, On Tue04/02/22 at 1445, Routine [facility] topiramate 100 mg tablet 2021-03 00:00: 00 Yes [id number] 100mg Take 1 tablet by mouth in the morning and 1 tablet in the evening. [facility] SUMAtriptan 50 mg tablet 2021-03 00:00: 00 02-24 05:59 :00 No [id number] 50mg Take 1 tablet by mouth once now for 1 dose. [facility] topiramate 50 mg tablet 2021-03- 00:00: 00 02-23 00:00 :00 No [id number] 50mg Take 1 tablet by mouth in the morning and 1 tablet in the evening. [facility] cholecalcif kassidy (Vitamin D-3) 25 MCG (1000 UT) capsule 09-18 13:29: 29 Yes Take by mouth. [facility] linaGLIPtin (Tradjenta) 5 MG tablet 09-18 13:29: 29 Yes Tradjenta 5 mg tablet TAKE 1 TABLET BY MOUTH ONCE DAILY IN THE MORNING [facility] Entresto 24-26 MG tablet 09-16 00:00: 00 Yes Q.5D Take by mouth 2 (two) times a day. [facility] torsemide (Demadex) 20 MG tablet 09-06 00:00: 00 Yes 80mg QD Take 80 mg by mouth 1 (one) time each day. TAKE 4 TABLETS BY MOUTH ONCE DAILY [facility] RENEWALS MANAGER Thyroid 60 MG tablet 08-14 00:00: 00 Yes 60mg QD Take 60 mg by mouth 1 (one) time each day. on an empty stomach [facility] carvedilol (Coreg) 6.25 MG tablet 07-24 00:00: 00 Yes 6.25mg Q.5D Take 6.25 mg by mouth in the morning and 6.[address] [facility] topiramate (Topamax) 25 MG tablet 07-24 00:00: 00 Yes 25mg Take 25 mg by mouth if needed. [facility] atorvastati n (Lipitor) 40 MG tablet 07-07 00:00: 00 Yes 40mg Take 40 mg by mouth every night. [facility] EQ Aspirin Adult Low Dose 81 MG EC tablet 07-07 00:00: 00 Yes 81mg QD Take 81 mg by mouth 1 (one) time each day. [facility] clopidogrel (Plavix) 75 MG tablet 07-07 00:00: 00 Yes 75mg QD Take 75 mg by mouth 1 (one) time each day. [facility] Farxiga 10 MG 04-25 00:00: 00 Yes 10mg QD Take 10 mg by mouth 1 (one) time each day. [facility] cloniDINE 0.1 mg/24 hr patch 2020-03 00:00: 00 Yes [id number] 1{patch } Apply 1 Patch to skin weekly. [facility] carvediloL 12.5 mg tablet 2020-03 15:47: 03 Yes 12.5mg Take 12.5 mg by mouth 2 (two) times daily with meals. [facility] insulin aspart (NOVOLOG FLEXPEN U-100 INSULIN SC) 2020-03 11:25: 42 Yes inject under the skin. Per SS [facility] aspirin 81 mg chewable tablet 2020-03 11:25: 42 Yes 81mg Take 81 mg by mouth daily. [facility] dapaglifloz in (FARXIGA) 5 mg tablet 2020-03 11:25: 42 Yes Take by mouth daily. [facility] linaGLIPtin (TRADJENTA) 5 mg tablet 2020-03 11:25: 42 Yes Take by mouth daily. [facility] TURMERIC ORAL 2020-03 11:25: 42 Yes 500mg Take 500 mg by mouth 2 (two) times daily. [facility] Cholecalcif kassidy, Vitamin D3, (VITAMIN D3) 25 mcg (1,000 unit) capsule 2020-03 11:25: 42 Yes Take by mouth daily. [facility] bumetanide 1 mg tablet 2020-03 11:25: 42 Yes 1mg 1 mg at bedtime. [facility] ergocalcife rol, vitamin d2, (VITAMIN D2) 1,250 mcg (50,000 unit) capsule 2020-03 11:25: 42 Yes [id number] Take 50,000 Units by mouth weekly. [facility] nystatin 100,000 unit/mL suspension 2020-03 11:25: 42 Yes Take by mouth 4 (four) times daily. [facility] amLODIPine 10 mg tablet 2020-03 00:00: 00 02-12 00:00 :00 No [id number] 10mg Take 1 tablet by mouth daily. [facility] topiramate 25 mg tablet 2020-03 00:00: 00 01-18 00:00 :00 No [id number] 25mg Take 1 tablet by mouth 2 (two) times daily. [facility] spironolact one 25 mg tablet 11-25 00:00: 00 Yes [id number] 02 25mg Take 1 tablet by mouth daily. [facility] thyroid (ARMOUR THYROID) 30 mg tablet 11-25 00:00: 00 Yes [id number] 15mg Take 0.5 tablets by mouth every morning. [facility] gabapentin 100 mg capsule 05-23 00:00: 00 Yes [id number] 100mg Take 1 capsule by mouth 3 (three) times daily. [facility] flash glucose scanning reader (FREESTYLE YASH 14 DAY READER) Misc 06-04 00:00: 00 Yes [id number] 1{appli catorfu l} 1 Applicator ful 4 (four) times daily. Check glucose QID as directed [facility] flash glucose sensor (FREESTYLE YASH 14 DAY SENSOR) Kit 06-04 00:00: 00 Yes [id number] 1{appli cator} 1 Applicator 4 (four) times daily. [facility] Adult Aspirin Regimen 81 mg tablet,mary yed release Take 1 tablet every day by oral route. Adult Aspirin Regimen 81 mg tablet,mary yed release Take 1 tablet every day by oral route. No 1 Q1D Adult Aspirin Regimen 81 mg tablet,del ayed release Take 1 tablet every day by oral route. [facility] BD Sneha 2nd Gen Pen Needle 32 gauge x 5/32" use as directed 4 times daily BD Sneha 2nd Gen Pen Needle 32 gauge x 5/32" use as directed 4 times daily No BD Sneha 2nd Gen Pen Needle 32 gauge x 5/32" use as directed 4 times daily [facility] FreeStyle Yash 14 Day [place] FreeStyle Yash 14 Day [place] No FreeStyle Yash 14 Day [place] [facility] FreeStyle Yash 14 Day Sensor FreeStyle Yash 14 Day Sensor No FreeStyle Yash 14 Day Sensor [facility] FreeStyle Yash 14 Day Sensor kit USE DAILY BUT CHANGE EVERY 14 DAYS FreeStyle Yash 14 Day Sensor kit USE DAILY BUT CHANGE EVERY 14 DAYS No FreeStyle Yash 14 Day Sensor kit USE DAILY BUT CHANGE EVERY 14 DAYS [facility] RENEWALS MANAGER Thyroid 30 mg tablet TAKE 1 TABLET BY MOUTH ONCE DAILY FOR 30 DAYS RENEWALS MANAGER Thyroid 30 mg tablet TAKE 1 TABLET BY MOUTH ONCE DAILY FOR 30 DAYS No RENEWALS MANAGER Thyroid 30 mg tablet TAKE 1 TABLET BY MOUTH ONCE DAILY FOR 30 DAYS [facility] OneTouch Verio test strips OneTouch Verio test strips No OneTouch Verio test strips [facility] Ozempic 0.25 [...] DAILY No Vitamin D3 1000 IU DAILY [facility] Vital Signs Vital Name Observation Time Observation Value Comments S ource Systolic blood pressure 2022-02-23 20:45:00 105 mm[Hg] [facility] Diastolic blood pressure 2022-02-23 20:45:00 74 mm[Hg] [facility] Heart rate 2022-02-23 20:45:00 77 /min [facility] Body height 2022-02-23 20:45:00 157.5 cm [facility] Body weight 2022-02-23 20:45:00 48.081 kg [facility] BMI 2022-02-23 20:45:00 19.39 kg/m2 [facility] Oxygen saturation in Arterial blood by Pulse oximetry 2022-02-23 20:45:00 99 /min [facility] Systolic blood pressure 2022-01-18 22:23:00 149 mm[Hg] [facility] Diastolic blood pressure 2022-01-18 22:23:00 84 mm[Hg] [facility] Heart rate 2022-01-18 22:23:00 68 /min [facility] Body weight 2022-01-18 22:23:00 50.803 kg [facility] BMI 2022-01-18 22:23:00 20.49 kg/m2 [facility] Oxygen saturation in Arterial blood by Pulse oximetry 2022-01-18 22:23:00 94 /min [facility] Systolic blood pressure 2021-09-18 18:29:00 156 mm[Hg] [facility] Diastolic blood pressure 2021-09-18 18:29:00 85 mm[Hg] [facility] Heart rate 2021-09-18 18:29:00 69 /[facility] Res[facility] 2021-09-18 18:29:00 16 /min [facility] Body weight 2021-09-18 18:29:00 [facility] O[facility] saturation in Arterial blood by Pulse oximetry 2021-09-18 18:29:00 97 /min [facility] BP Diastolic 2020-07-10 00:00:00 86 mm[Hg] [facility] Height 2020-07-10 00:00:00 62 [in_i] [facility] BMI (Body Mass Index) 2020-07-10 00:00:00 33.5 kg/m2 [facility] BP Systolic 2020-07-10 00:00:00 137 mm[Hg] [facility] Body Weight 2020-07-10 00:00:00 183 [lb_av] [facility] BP Diastolic 2020-02-07 00:00:00 78 mm[Hg] [facility] Height 2020-02-07 00:00:00 62 [in_i] [facility] BMI (Body Mass Index) 2020-02-07 00:00:00 33 kg/m2 [facility] BP Systolic 2020-02-07 00:00:00 122 mm[Hg] [facility] Body Weight 2020-02-07 00:00:00 180.2 [lb_av] [facility] BP Diastolic 2019-12-24 00:00:00 78 mm[Hg] [facility] Height 2019-12-24 00:00:00 62 [in_i] [facility] BMI (Body Mass Index) 2019-12-24 00:00:00 31.5 kg/m2 [facility] BP Systolic 2019-12-24 00:00:00 110 mm[Hg] [facility] Body Weight 2019-12-24 00:00:00 172 [lb_av] [facility] Procedures Procedure Date / Time Performed Performing Clinician Source CONSENT/REFUSAL FOR DIAGNOSIS AND TREATMENT 2022-06-23 20:02:57 Doctor Unassigned, [place] [facility] PHYSICIAN ORDERS 2022-05-14 06:01:00 Doctor Unas signed, [place] [facility] HB CREATININE SERUM/BLOOD FOR IMAGING 2022-04-02 21:10:00 Faith Michel [facility] CT ABDOMEN PELVIS W CONTRAST 2022-04-02 20:43:00 Faith Michel [facility] CBC WITH DIFF 2022-03-29 22:37:00 [facility] 2022-03-29 22:23:51 Doctor Unassigned, [place] [facility] ECG 12-LEAD 2021-09-18 21:45:54 Chalo Christianson [facility] ealt CONSENT/REFUSAL FOR DIAGNOSIS AND TREATMENT 2021-06-23 18:30:15 Doctor Unassigned, [place] [facility] ASSIGNMENT OF BENEFITS 2021-06-23 18:30:01 Doctor Unassigned, [place] [facility] [id number] 2021-04-21 00:00:00 [facility] Emergency Department Planned Activity Planned Date Details Comments Source Diagnostic Test Pending 2020-07-10 00:00:00 glucose, fingerstick, blood [code = glucose, fingerstick, blood] [facility] Diagnostic Test Pending 2020-07-10 00:00:00 hemoglobin A1C, fingerstick [code = hemoglobin A1C, fingerstick] [facility] Encounters Start Date/Time End Date/Time Encounter Type Admission Type Attending Clinicians Care Facility Care Department Encounter ID Source 2022-07-15 12:08:12 Outpatient [facility] [id number] [facility] 2022-07-14 13:01:54 Outpatient [facility] [id number] [facility] 2022-04-05 13:49:37 Outpatient [facility] [id number] [facility] 2021-09-22 17:34:30 Outpatient [facility] [id number] [facility] 2021-09-18 13:11:20 Outpatient CHALO CHRISTIANSON [facility] [id number] [facility] 2021-09-17 13:49:24 Outpatient [facility] [id number] [facility] 2021-09-16 14:24:43 Outpatient CHALO CHRISTIANSON [facility] [id number] [facility] 2021-04-02 13:46:27 Outpatient [id number] [id number] [id number] [facility] 2021-04-02 13:45:28 Outpatient [id number] ENC[facility] [id number] [id number] [facility] 2021-04-02 13:44:46 Outpatient 3 [id number] ENC[facility] PUL [id number] [facility] 2021-04-02 13:43:23 Outpatient [id number] ENC[facility] [id number] [facility] 2021-01-05 19:43:30 Outpatient R GAYATRI LOBO [facility] [id number] [facility] 2021-01-05 13:14:53 Emergency [facility] [id number] [facility] 2023-01-05 17:18:55 2023-01-05 17:18:55 Outpatient [id number] Jude Swift Heraclio 2022-12-31 00:00:00 2022-12-31 00:00:00 Outpatient GC_GCBZW_Ka diyala_S PRIV [facility] [id number] [facility] 2022-10-19 14:14:12 2022-10-19 14:14:12 Outpatient SFA SFA [id number] Jude Swift Heraclio 2022-09-22 11:09:00 2022-09-25 17:32:00 Inpatient Karolyn ENA [facility] [id number] Mauricio garcia 2022-09-03 09:35:23 2022-09-03 23:59:00 Hospital Encounter Faith Michel [facility] 1.2.840.114 350.1.13.10 4.2.7.2.686 [id number] [facility] 2022-09-03 08:49:31 2022-09-03 09:34:00 Hospital Encounter Faith Michel [facility] 1.840.114 350.1.13.10 4.2.7.2.686 [id number] [facility] 2022-09-03 00:00:00 2022-09-03 09:34:00 Outpatient R MARILU [facility] [id number] [facility] 2022-08-24 16:45:00 2022-08-24 17:00:00 Salesperson Women'S Dresses Visit Makayla, 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 Marciano Elliott [facility] 1..840.114 350.1.13.10 4.2.7.2.686 [id number] [facility] 2022-08-24 16:45:00 2022-08-24 16:45:00 Outpatient R RUDDYMARCIANO TIM [facility] [id number] [facility] 2022-06-25 00:00:00 2022-06-25 00:00:00 Outpatient R MARILU [facility] [id number] [facility] 2022-06-23 15:15:00 2022-06-23 15:30:00 Salesperson Women'S Dresses Visit Makayla, Angus [facility] 1..840.114 350.1.13.10 4.2.7.2.686 [id number] [facility] 2022-06-23 15:15:00 2022-06-23 15:15:00 [facility] [id number] [facility] 2022-06-23 00:00:00 2022-06-23 00:00:00 Orders Only Doctor Unassigned, [place] [facility] 1.840.114 350.1.13.10 4.2.7.2.686 [id number] [facility] 2022-06-17 21:22:00 2022-06-17 21:22:00 Outpatient Rissa Lange HCAPM HCAPM [id number] 95 [facility] 2022-05-14 16:30:00 2022-05-14 16:45:00 Salesperson Women'S Dresses Visit Makayla, Adc Lab [facility] PROFESSIO NAL BUILDING 1.2.840.114 350.1.13.10 4.2.7.2.686 [id number] [facility] 2022-05-14 16:30:00 2022-05-14 16:30:00 Outpatient Sagar [facility] [id number] [facility] 2022-05-14 00:00:00 2022-05-14 00:00:00 Orders Only Doctor Unassigned, [place] [facility] 1.2.840.114 350.1.13.10 4.2.7.2.686 [id number] [facility] 2022-04-12 14:30:00 2022-04-12 14:45:00 Salesperson Women'S Dresses Visit [facility] Lab [facility] BUILDING 1.2.840.114 350.1.13.10 4.2.7.2.686 [id number] [facility] 2022-04-12 14:30:00 2022-04-12 14:30:00 Outpatient R GRZEGORZ HAYNES [facility] [id number] [facility] 2022-04-12 00:00:00 2022-04-12 00:00:00 Outpatient R RADIOLOGY [facility] [id number] [facility] 2022-04-05 13:48:00 2022-04-05 19:26:00 Emergency E KANE GARCIA [id number] 2022-04-05 13:25:00 2022-04-05 13:25:00 Outpatient R RADIOLOGY [facility] [id number] [facility] 2022-04-02 13:33:26 2022-04-02 23:59:00 Outpatient R FAITH MICHEL [facility] [id number] [facility] 2022-04-02 13:33:26 2022-04-02 23:59:00 Hospital Encounter Faith Michel [facility] 1.2.840.114 350.1.13.10 4.2.7.2.686 [id number] [facility] 2022-03-29 16:30:00 2022-03-29 16:45:00 Salesperson Women'S Dresses Visit Pob, 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 Marilu [facility] 1.2.840.114 350.1.13.10 4.2.7.2.686 [id number] [facility] 2022-03-29 16:30:00 2022-03-29 16:30:00 Outpatient R MARILU FAITH [facility] [id number] [facility] 2022-03-29 00:00:00 2022-03-29 00:00:00 Orders Only Doctor Unassigned, [place] [facility] 1.2.840.114 350.1.13.10 4.2.7.2.686 [id number] [facility] 2022-03-26 13:30:00 2022-03-26 13:30:00 Outpatient R ODESSA ROBERTO [facility] [id number] [facility] 2022-02-23 14:30:00 2022-02-23 15:08:25 Outpatient R ODESSA ROBERTO [facility] [id number] [facility] 2022-02-23 14:30:00 2022-02-23 15:08:25 Office Visit Odessa Roberto [facility] 1.2.840.114 350.1.13.10 4.2.7.2.686 [id number] [facility] 2022-02-15 00:00:00 2022-02-15 00:00:00 Patient Secure Msg Doctor Unassigned, [place] [facility]?J[facility]DAN JORDAN [facility] OFF[facility] BUILDING 1.2.840.114 350.1.13.10 4.2.7.2.686 [id number] [facility] 2022-01-18 16:30:00 2022-01-18 16:38:58 Outpatient R BENSON CASTRO HOWARD [facility] [id number] [facility] 2022-01-18 16:30:00 2022-01-18 16:38:58 Office Visit Odessa Roberto Howard Gene [facility]?JOURDAN [facility] BUILDING 1.2.840.114 350.1.13.10 4.2.7.2.686 [id number] [facility] 2021-12-11 00:00:00 2021-12-11 00:00:00 Benson Roberson [facility] 1.2.840.114 350.1.13.10 4.2.7.2.686 [id number] [facility] 2021-11-30 15:57:43 2021-11-30 23:59:00 Outpatient R RADIOLOGY [facility] [id number] [facility] 2021-11-30 15:57:43 2021-11-30 23:59:00 Hospital Encounter Radiology [facility] 1.2.840.114 350.1.13.10 4.2.7.2.686 [id number] [facility] 2021-10-01 11:00:00 2021-10-01 23:59:00 Outpatient CHALO CHRISTIANSON [facility] CAR [id number] 2021-09-18 13:40:00 2021-09-18 14:48:02 Office Visit Chalo Christianson [facility] [id number] 1.2.840.114 350.1.13.58 9.2.7.2.[id number] [facility] 2021-07-06 16:36:00 2021-07-07 15:54:00 Outpatient ANG ANNE ALEKSANDER CAR [address] [facility] 2021-06-23 13:45:00 2021-06-23 14:00:00 Salesperson Women'S Dresses Visit Pob, 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 Grzegorz Haynes [facility] BUILDING 1.2.840.114 350.1.13.10 4.2.7.2.686 [id number] [facility] 2021-06-23 13:45:00 2021-06-23 13:45:00 Outpatient Sagar [facility] [id number] [facility] 2021-06-23 00:00:00 2021-06-23 00:00:00 Orders Only Doctor Unassigned, [place] [facility] 1.2.840.114 350.1.13.10 4.2.7.2.686 [id number] [facility] 2021-04-06 20:57:00 2021-04-25 12:25:00 Inpatient 3 Stephen Ojeda ENC[facility] PUL [id number] [place] [facility] 2021-02-23 00:00:00 2021-02-23 00:00:00 Telephone D[facility] BU[facility] 1..840.114 350.1.13.10 4.2.7.2.686 [id number] [facility] 2021-02-09 00:00:00 2021-02-09 00:00:00 [facility] 1.2.840.114 350.1.13.10 4.2.7.2.686 [id number] [facility] 2021-01-26 11:23:08 2021-01-26 11:43:42 [facility] 1.2.840.114 350.1.13.10 4.2.7.2.686 [id number] [facility] 2021-01-26 11:20:00 2021-01-26 11:43:42 Outpatient R FRANCISCO [facility] [id number] [facility] 2021-01-26 11:20:00 2021-01-26 11:43:42 Outpatient R FRANCISCO [facility] [id number] [facility] 2021-01-26 11:20:00 2021-01-26 11:20:00 Outpatient R FRANCISCO [facility] [id number] [facility] 2021-01-22 07:50:27 2021-01-22 08:43:54 Salesperson Women'S Dresses Visit Pob, 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 Marciano Elliott [facility] 1.2.840.114 350.1.13.10 4.2.7.2.686 [id number] [facility] 2021-01-22 07:45:00 2021-01-22 08:43:54 Outpatient R MARCIANO ELLIOTT [facility] [id number] [facility] 2021-01-22 07:45:00 2021-01-22 07:45:00 Outpatient R MARCIANO ELLIOTT [facility] [id number] [facility] 2020-12-25 00:00:00 2020-12-25 00:00:00 Benson Roberson [facility] Building 1.2.840.114 350.1.13.10 4.2.7.2.686 [id number] [facility] 2020-12-23 00:00:00 2020-12-23 00:00:00 Telephone Sarah Espinal [facility] 1.2.840.114 350.1.13.10 4.2.7.2.686 [id number] [facility] 2020-12-23 00:00:00 2020-12-23 00:00:00 Patient Secure Msg Doctor Unassigned, [place] [facility] 1.2.840.114 350.1.13.10 4.2.7.2.686 [id number] [facility] 2020-12-17 07:54:57 2020-12-17 23:59:00 Hospital Encounter Radiology [facility] 1.2.840.114 350.1.13.10 4.2.7.2.686 [id number] [facility] 2020-12-17 00:00:00 2020-12-17 00:00:00 Outpatient R RADIOLOGY [facility] [id number] [facility] 2020-11-25 13:48:41 2020-11-25 14:12:26 Office Visit Danya Singh [facility] 1.2.840.114 350.1.13.10 4.2.7.2.686 [id number] [facility] 2020-11-25 13:40:00 2020-11-25 13:40:00 Outpatient R DANYA SINGH [facility] [id number] [facility] 2020-11-14 00:00:00 2020-11-14 00:00:00 [facility] 1.2.840.114 350.1.13.10 4.2.7.2.686 [id number] [facility] 2020-11-14 00:00:00 2020-11-14 00:00:00 Danya Neff [facility] Building 1.2.840.114 350.1.13.10 4.2.7.2.686 [id number] [facility] 2020-11-12 12:08:00 2020-11-12 12:43:00 Surgery Gayatri Lobo [facility] 1.2.840.114 350.1.13.10 4.2.7.2.686 [id number] [facility] 2020-11-12 12:08:00 2020-11-12 12:43:00 Surgery Gayatri Lobo [facility] [place] 1.2.840.114 350.1.13.10 4.2.7.2.686 [id number] [facility] 2020-11-12 10:46:00 2020-11-12 12:35:00 Hospital Encounter Gayatri Lobo [facility] [place] 1.2.840.114 350.1.13.10 4.2.7.2.686 [id number] [facility] 2020-11-12 10:46:00 2020-11-12 12:35:00 Hospital Encounter Gayatri Lobo [facility] [place] 1.2.840.114 350.1.13.10 4.2.7.2.686 [id number] [id number] [facility] 2020-11-11 08:12:07 2020-11-11 08:27:07 Laboratory Only Only, Adc Test Grzegorz Haynes [facility] 1.2.840.114 350.1.13.10 4.2.7.2.686 [id number] [facility] 2020-11-11 08:12:07 2020-11-11 08:27:07 Laboratory Only Only, Adc Test Grzegorz Haynes [facility] 1.2840.114 350.1.13.10 4.2.7.2.686 [id number] [facility] 2020-11-11 08:15:00 2020-11-11 08:15:00 Outpatient R [facility] [id number] [facility] 2020-10-24 00:00:00 2020-10-24 00:00:00 Orders Only Doctor Unassigned, [place] [facility] 1.2840.114 350.1.13.10 4.2.7.2.686 [id number] [facility] 2020-10-08 18:34:00 2020-10-08 22:22:00 Emergency Mali Rosado [facility] 1.0.114 350.1.13.10 4.2.7.2.686 [id number] [facility] 2020-10-07 00:00:00 2020-10-07 00:00:00 Telephone Benson Castro [facility] Building 1.84.114 350.1.13.10 4.2.7.2.686 [id number] [facility] 2020-10-03 00:00:00 2020-10-03 00:00:00 Patient Secure Lucius Bobmallory [facility] PROFESSIO NAL BUILDING 1.2840.114 350.1.13.10 4.2.7.2.686 [id number] [facility] 2020-10-01 10:00:00 2020-10-01 10:00:00 Outpatient EMMANUELLE PRITCHARD [facility] [id number] [facility] 2020-10-01 00:00:00 2020-10-01 00:00:00 Orders Only Doctor Unassigned, [place] [facility] 1.20.114 350.1.13.10 4.2.7.2.686 [id number] [facility] 2020-09-26 08:11:48 2020-09-26 08:26:48 Laboratory Only Only, Adc Test Latricia Montana [facility] 1.20.114 350.1.13.10 4.2.7.2.686 [id number] [facility] 2020-09-26 08:00:00 2020-09-26 08:00:00 Outpatient R [facility] [id number] [facility] 2020-09-23 11:10:57 2020-09-23 11:46:21 Office Visit Benson Castro [facility] 1.2840.114 350.1.13.10 4.2.7.2.686 [id number] 2020-09-23 11:10:57 2020-09-23 11:46:21 Office Visit Benson Castro [facility] 1.2840.114 350.1.13.10 4.2.7.2.686 [id number] [facility] 2020-09-23 11:00:00 2020-09-23 11:00:00 Outpatient Sagar BENSON CASTRO HOWARD [facility] [id number] [facility] 2020-09-17 00:00:00 2020-09-17 00:00:00 Orders Only Doctor Unassigned, [place] [facility] 1.20.114 350.1.13.10 4.2.7.2.686 [id number] [facility] 2020-08-27 11:24:21 2020-08-27 11:54:21 Office Visit Latasha Fernandez [facility] 1.2.840.114 350.1.13.10 4.2.7.2.686 [id number] [facility] 2020-08-27 11:30:00 2020-08-27 11:30:00 Outpatient R LATASHA FERNANDEZ STRAWVTashia [facility] [id number] [facility] 2020-08-27 00:00:00 2020-08-27 00:00:00 Telephone Danya Singh [facility] 1.284.114 350.1.13.10 4.2.7.2.686 [id number] [facility] 2020-08-25 14:02:06 2020-08-25 14:32:42 Office Visit Tahira Singhmallory [facility] 1.840.114 350.1.13.10 4.2.7.2.686 [id number] [facility] 2020-08-25 14:00:00 2020-08-25 14:00:00 Outpatient R TAHIRA SINGHMALLORY [facility] [id number] [facility] 2020-08-25 00:00:00 2020-08-25 00:00:00 Orders Only Doctor Unassigned, [place] [facility] 1.284.114 350.1.13.10 4.2.7.2.686 [id number] [facility] 2020-08-19 00:00:00 2020-08-19 00:00:00 Telephone Benson Castro [facility] 1..840.114 350.1.13.10 4.2.7.2.686 [id number] [facility] 2020-08-13 14:00:00 2020-08-13 14:00:00 Outpatient LATASHA MAZARIEGOS STRAHIL [facility] [id number] [facility] 2020-07-31 15:26:34 2020-07-31 23:59:00 Hospital Encounter KermitBenson nix [facility] 1.2.840.114 350.1.13.10 4.2.7.2.686 [id number] [facility] 2020-07-31 15:26:34 2020-07-31 23:59:00 Outpatient BENSON CASEY HOWARD [facility] [id number] [facility] 2020-07-31 00:00:00 2020-07-31 00:00:00 Outpatient BENSON CASEY HOWARD [facility] [id number] [facility] 2020-07-30 00:00:00 2020-07-30 00:00:00 Tele[facility]it [facility] 1..840.114 350.1.13.10 4.2.7.2.686 [id number] [facility] 2020-07-29 00:00:00 2020-07-29 00:00:00 Patient Secure Msg [facility] 1.2.840.114 350.1.13.10 4.2.7.2.686 [id number] [facility] 2020-07-28 08:21:39 2020-07-28 08:36:39 Salesperson Women'S Dresses Visit Pob, 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 [facility] 1.2.840.114 350.1.13.10 4.2.7.2.686 [id number] [facility] 2020-07-28 08:30:00 2020-07-28 08:30:00 [facility] [id number] [facility] 2020-07-28 00:00:00 2020-07-28 00:00:00 Telephone [facility] 1.2.840.114 350.1.13.10 4.2.7.2.686 [id number] [facility] 2020-07-15 00:00:00 2020-07-15 00:00:00 Telephone Benson Castro [facility] 1.2.840.114 350.1.13.10 4.2.7.2.686 [id number] [facility] 2020-07-14 14:38:23 2020-07-14 15:12:09 [facility] 1.2.840.114 350.1.13.10 4.2.7.2.686 [id number] [facility] 2020-07-14 14:40:00 2020-07-14 14:40:00 Outpatient [facility] [id number] [facility] 2020-07-12 01:24:00 2020-07-12 01:24:00 Outpatient Alex [facility] [id number] [facility] e 2020-07-10 00:00:00 2020-07-10 00:00:00 Samm Alexander MD: [id number] [address] [facility], [address], [place] [address] , Ph. Benjamin_[facility] - _HOU_Shad ow Lares [id number] [facility] e 2020-07-01 12:13:16 2020-07-01 12:28:16 Salesperson Women'S Dresses Visit [facility] Sleep Lab Latasha Fernandez [facility] 1.284.114 350.1.13.10 4.2.7.2.686 [id number] [facility] 2020-07-01 12:00:00 2020-07-01 12:00:00 Outpatient R LATASHA FERNANDEZ STRAWVTashia [facility] [id number] [facility] 2020-06-27 11:33:44 2020-06-27 11:48:44 Laboratory Only Only, [facility] Test Grzegorz Haynes [facility] 1.840.114 350.1.13.10 4.2.7.2.686 [id number] [facility] 2020-06-27 10:30:00 2020-06-27 10:30:00 Outpatient R [facility] [id number] [facility] 2020-06-27 00:00:00 2020-06-27 00:00:00 Orders Only Doctor Unassigned, [place] [facility] 1.84.114 350.1.13.10 4.2.7.2.686 [id number] [facility] 2020-06-20 00:00:00 2020-06-20 00:00:00 Patient Secure Msg Singh [facility] 1.840.114 350.1.13.10 4.2.7.2.686 [id number] [facility] 2020-06-19 14:00:00 2020-06-19 14:00:00 Outpatient R [facility] [id number] [facility] 2020-06-15 00:00:00 2020-06-15 00:00:00 Patient [facility] 1.840.114 350.1.13.10 4.2.7.2.686 [id number] [facility] 2020-06-13 10:48:23 2020-06-13 23:59:00 [facility] 1.2.840.114 350.1.13.10 4.2.7.2.686 [id number] [facility] 2020-06-13 10:47:50 2020-06-13 11:02:50 Salesperson Women'S Dresses Visit Pob, 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 Francisco [facility] Building 1.2.840.114 350.1.13.10 4.2.7.2.686 [id number] [facility] 2020-06-13 09:10:33 2020-06-13 10:22:02 Office Visit Francisco [facility] 1.2.840.114 350.1.13.10 4.2.7.2.686 [id number] [facility] 2020-06-13 09:20:00 2020-06-13 09:20:00 Outpatient [facility] [id number] [facility] 2020-06-09 00:00:00 2020-06-09 00:00:00 Telephone Benson Castro [facility] 1.2.840.114 350.1.13.10 4.2.7.2.686 [id number] [facility] 2020-06-04 00:00:00 2020-06-04 00:00:00 Outpatient BENSON CASEY HOWARD [facility] [id number] [facility] 2020-05-28 00:00:00 2020-05-28 00:00:00 Telephone Benson Castro [facility] Building 1.2.840.114 350.1.13.10 4.2.7.2.686 [id number] [facility] 2020-05-27 00:00:00 2020-05-27 00:00:00 Patient Outreach Jose Raul Li [facility] 1.2840.114 350.1.13.10 4.2.7.2.686 [id number] [facility] 2020-05-23 10:49:27 2020-05-23 11:04:27 Salesperson Women'S Dresses Visit 2, Adc Lab Kermit Benson Keith [facility] Building 1.2.840.114 350.1.13.10 4.2.7.2.686 [id number] [facility] 2020-05-23 08:19:24 2020-05-23 10:59:14 Office Visit Benson Castro [facility] Building 1.2840.114 350.1.13.10 4.2.7.2.686 [id number] [facility] 2020-05-23 08:40:00 2020-05-23 08:40:00 Outpatient BENSON CASEY HOWARD [facility] [id number] [facility] 2020-05-19 00:00:00 2020-05-19 00:00:00 Orders Only Doctor Unassigned, [place] [facility] 1.2840.114 350.1.13.10 4.2.7.2.686 [id number] [facility] 2020-04-10 07:43:00 2020-04-10 07:43:00 Outpatient Alex NASHP VFP [id number] [facility] 2020-04-09 08:19:39 2020-04-09 08:34:39 Salesperson Women'S Dresses Visit Pob, Adc Lab Marciano Golden [facility] Building [id number] 350.1.13.10 4.2.7.2.686 [id number] [facility] 2020-04-09 08:15:00 2020-04-09 08:15:00 Outpatient MARCIANO NIXON [facility] [id number] [facility] 2020-04-09 00:00:00 2020-04-09 00:00:00 Orders Only Doctor Unassigned, [place] [facility] 1.840.114 350.1.13.10 4.2.7.2.686 [id number] [facility] 2020-03-14 03:25:00 2020-03-14 03:25:00 Outpatient Daniel_T VFP VFP [id number] [facility] 2020-03-01 01:02:00 2020-03-01 01:02:00 Outpatient Daniel_T VFP VFP [id number] [facility] 2020-02-11 07:53:00 2020-02-11 07:53:00 Outpatient Daniel_T VFP VFP [id number] [facility] 2020-02-07 00:00:00 2020-02-07 00:00:00 Samm Alexander MD: [id number] [phone] , Ph. Daniel_T VFP [place] - [facility] - VM_HOU_Alphonse crawley [id number] [facility] 2020-01-08 08:00:00 2020-01-08 08:00:00 Outpatient MARCIANO NIXON [facility] [id number] [facility] 2020-01-08 07:39:55 2020-01-08 07:54:55 Salesperson Women'S Dresses Visit Pob, 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 Marciano [facility] 1..840.114 350.1.13.10 4.2.7.2.686 [id number] [facility] 2020-01-08 00:00:00 2020-01-08 00:00:00 Orders Only Doctor Unassigned, [place] [facility] 1..840.114 350.1.13.10 4.2.7.2.686 [id number] [facility] 2019-12-31 02:04:00 2019-12-31 02:04:00 Outpatient Daniel_T VFP VFP [id number] [facility] 2019-12-24 00:00:00 2019-12-24 00:00:00 Samm Alexander MD: [address] [phone] , Ph. Daniel_T VFP [place] - Formerly [facility], 1928–1983 - VM_ELEANORU_Alphonse el [id number] [facility] 2019-12-18 07:41:51 2019-12-18 07:56:51 Salesperson Women'S Dresses Visit Pob, 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 Marciano Elliott [facility] 1..840.114 350.1.13.10 4.2.7.2.686 [id number] [facility] 2019-12-18 07:45:00 2019-12-18 07:45:00 Outpatient MARCIANO NIXON [facility] [id number] [facility] 2019-12-13 04:08:00 2019-12-13 04:08:00 Outpatient Daniel_T VFP VFP [id number] [facility] 2019-12-03 03:40:00 2019-12-03 03:40:00 Outpatient Daniel_T VFP VFP [id number] [facility] 2019-11-08 13:23:04 2019-11-08 13:38:04 Salesperson Women'S Dresses Visit Pob, 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 Marciano Elliott [facility] 1..840.114 350.1.13.10 4.2.7.2.686 [id number] [facility] 2019-11-08 13:15:00 2019-11-08 13:15:00 Outpatient MARCIANO NIXON [facility] [id number] [facility] 2019-11-08 00:00:00 2019-11-08 00:00:00 Orders Only Doctor Unassigned, [place] [facility] 1..840.114 350.1.13.10 4.2.7.2.686 [id number] [facility] 2019-11-07 10:47:00 2019-11-07 10:47:00 Outpatient Daniel_T VFP VFP [id number] [facility] 2019-10-04 10:10:00 2019-10-04 23:59:00 Hospital Encounter Marciano Elliott [facility] 1..840.114 350.1.13.10 4.2.7.2.686 [id number] [facility] 2019-10-04 10:15:33 2019-10-04 10:30:33 Salesperson Women'S Dresses Visit [place], 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 Marciano Elliott [facility] 1.2.840.114 350.1.13.10 4.2.7.2.686 [id number] [facility] 2019-10-04 00:00:00 2019-10-04 00:00:00 Outpatient MARCIANO NIXON [facility] [id number] [facility] 2019-08-23 16:12:00 2019-09-06 01:47:20 Inpatient HCAPM KEI [id number] [facility] 2019-08-23 16:16:00 2019-08-26 22:36:52 Inpatient HCAPM KEI [id number] [facility] 2019-08-03 10:30:00 2019-08-03 10:30:00 Outpatient JAN MICHAEL [facility] [id number] [facility] 2019-08-03 09:58:47 2019-08-03 10:13:47 Salesperson Women'S Dresses Visit Pob, 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 Jan Valentine [facility] 1.2840.114 350.1.13.10 4.2.7.2.686 [id number] [facility] 2019-08-03 00:00:00 2019-08-03 00:00:00 Orders Only Doctor Unassigned, [place] [facility] 1.2840.114 350.1.13.10 4.2.7.2.686 [id number] [facility] 2019-06-06 00:00:00 2019-06-06 00:00:00 Transition of Care Yazmin Garber Reinaldo Corteschristie Brito [place] 1.840.114 350.1.13.10 4.2.7.2.686 [id number] [facility] 2019-06-03 20:41:23 2019-06-05 12:45:00 Inpatient X [facility] [id number] [facility] 2019-06-03 20:41:23 2019-06-05 12:45:00 Hospital Encounter Sb Escobar Adnan [facility] 1.2840.114 350.1.13.10 4.2.7.2.686 [id number] [facility] 2019-06-03 20:41:23 2019-06-03 20:41:23 Emergency X BEAR ESCOBARCARA [facility] [id number] [facility] 2019-04-27 02:15:54 2019-04-27 06:35:00 Emergency [facility] 1.2.840.114 350.1.13.10 4.2.7.2.686 [id number] [facility] 2019-04-26 22:52:50 2019-04-27 01:20:00 Emergency X SIVA ALVAREZ [facility] [id number] [facility] 2019-04-26 22:52:50 2019-04-27 01:20:00 Emergency X SIV[facility]ARE[facility] [id number] [facility] 2019-04-26 22:52:50 2019-04-27 01:20:00 Emergency Siva Alvarez [facility] 1.2.840.114 350.1.13.10 4.2.7.2.686 [id number] [facility] Results Test Description Test Time Test Comments Results Result Co mments Source [facility] WITH [id number] 22:56:35* Test Item Value Reference Range Interpretation [...] g/dL 31.6-35.1 L RDW-SD (test code = 42324-9) 50.4 fL 39.0-49.9 H RDW-CV (test code = 788-0) 15.2 % 12.0-15.5 PLT (test code = 777-3) See_Comment [Automated messa ge] The system which generated this result transmitted reference range: 166 - 358 10*3/?L. The reference range was not used to interpret this result as normal/abnormal. MPV (test code = 07853-1) 10.0 fL 9.5-12.9 NRBC/100 WBC (test code = 6768625406) See_Comment [Automated me ssage] The system which generated this result transmitted reference range: 0.0 - 10.0 /100 WBCs. The reference range was not used to interpret this result as normal/abnormal. NRBC x10^3 (test code = 2166240502) See_Comment [Automated messa ge] The system which generated this result transmitted reference range: 10*3/?L. The reference range was not used to interpret this result as normal/abnormal. GRAN MAT (NEUT) % (test code = 770-8) 73.0 % IMM GRAN % (test code = 6517674561) 0.30 % LYMPH % (test code = 736-9) 15.3 % MONO % (test code = 5905-5) 6.9 % EOS % (test code = 713-8) 3.9 % BASO % (test code = 706-2) 0.6 % GRAN MAT x10^3(ANC) (test code = 1978823356) 2.43 10*3/uL 1.88-7.09 IMM GRAN x10^3 (test code = 1552822119) 0.00-0.06 LYMPH x10^3 (test code = 731-0) 0.51 10*3/uL 1.32-3.29 L MONO x10^3 (test code = 742-7) 0.23 10*3/uL 0.33-0.92 L EOS x10^3 (test code = 711-2) 0.13 10*3/uL 0.03-0.39 BASO x10^3 (test code = 704-7) 0.01-0.07 Lab Interpretation (test code = 77166-5) Abnormal [facility] METABOLIC [id number] 18:36:00* Test Item Value Reference Range Interpretation [...] N Completed by Nursing: NONT PRO-BRAIN NATRIURETIC [id number] 18:36:00* Test Item Value Reference Range Interpretation Comme nts NT PRO-BRAIN NATRIURETIC PEP TI (test code = PROBNP) 368 PG/ML 0-100 H Completed by Nursing: [id number]-[id number] 18:36:00* Test Item Value Reference Range Interpretation [...] Completed by Nursing: NODRUGS OF ABUSE SCREEN [id number] 18:36:00* Test Item Value Reference Range Interpretation [...] [place]) NEGATIVE SCcutoff <300 NG/ML BASIC METABOLIC [id number] 18:32:00* Test Item Value Reference Range Interpretation [...] N Completed by Nursing: NONT PRO-BRAIN NATRIURETIC [id number] 18:32:00* Test Item Value Reference Range Interpretation Comme nts NT PRO-BRAIN NATRIURETIC PEP TI (test code = PROBNP) PG/ML 0-100 Completed by Nursing: [id number]-[id number] 18:32:00* Test Item Value Reference Range Interpretation Comme nts TROPONIN-I (test code = TROPI) NG/ML 0.000-0.045 Completed by Nursing: NOCBC W/AUTO [id number] 18:20:00* Test Item Value Reference Range Interpretation [...] NO DIFF/SCN CRITERIA - CT HEAD/BRAIN W/O [id number] 17:04:00Name: MORELIA ROMEO [facility] : 1970 Age/S: 49 / F [id number] Unit #: [id number] Loc: [place] [address] Phys: Domenica Quinn MD Acct: [id number] Dis Date: Status:PRE ER PHONE #: [phone] Exam Date: 08/23/2019 2613 FAX #: Reason: syncope EXAMS: CPT: [id number] CT HEAD/BRAIN W/O CONT 10857 INDICATIONS: syncope TECHNIQUE: Contiguous axial CT sections were obtained from the skull base to the vertex without intravenous contrast administration. CT DLP dose: 8 04 mGy centimeters. Iterative dose reduction technique utilized. [...] CC: Domenica Quinn MD; Ly JOSE; Jeet Phillips MD Technologist:RT Génesis(R)(CT) CTDI: DLP: Trnscb Date/Time: 08/23/2019 (1704) t.SDR.NB16 Orig Print D/T: S: 08/23/2019 (1707) PAGE 1 Signed Report Notes Date/Time Note Provider Source 2019-08-23 18:50:00 [id number] OKlAGG3QUQMegbXxE2TEZ63crZX2u6o1ip8581-13-09P14:5 0:00 [facility] ([facility])EMERGENCY PROVIDER REPORTREPORT#:[id number] REPORT STATUS: SignedDATE:08/23/19 TIME:1849 PATIENT: MORELIA ROMEO UNIT #: [id number]#: [id number] ROOM/BED:: 68 AGE: 49 SEX: F PCP [...] date Free Text HPI NotesFree Text HPI Cikbv40-ohay-byt female with past medical history of hypertension [...] Ox 98 08/22 1616 B/P 132/72 08/22 161 B/P Mean 92 08/22 1616 O2 Delivery Room air 08/22 1616 Temp 36.7 08/22 1616 Pulse 86 08/22 1616 Resp 08/22 Last Documented: Result Date Time Pulse Ox 98 08/22 1909 B/P 162/90 08/22 1909 B/P Mean 114 08/22 1909 O2 Delivery Room air 08/22 1909 Pulse 85 08/22 1909 Resp 16 06/18 1910 Temp 36.7 08/22 1617 Review of Vital Signs Reviewed Basic [...] % (Auto) (20.5 - 51.1 %) 22.1 Pender % (Auto) (1.7 - 9.3 %) 7.9 Eos % (Auto) (0.0 - 6.0 %) 2.5 Baso % (Auto) (0.0 - 2.0 %) 0.5 Neut # (Auto) (1.8 - 7.6 K/mm3) 4.0 Lymph # (Auto) (0.6 - 3.2 K/mm3) 1.3 Pender # (Auto) (0.3 - 1.1 K/mm3) 0.5 [...] 08/22 1910 O2 Delivery Room air 08/22 191 Pulse [...] Grier MD (PCP/Family) at 2018 RPT #: [id number] OF REPORTEDEmergency department tlwhxn2805-46-18I41:50:00L.JUGB86965527-7649ZBVqu ilable for patient juvcHKIVTSNPKJRXKT3206-99-11W73:18:47 [facility] 2019-08-23 18:50:00 [id number] a+wyXw8wuMXB3THtqRWntZDEtCPM2 F5VTSLb2oyiK5vm5YlZWDAQxmvoMA4IM5h3657-77-21J50:5 0:00 [facility] ([facility])EMERGENCY PROVIDER REPORTREPORT#:[id number] REPORT STATUS: SignedDATE:08/23/19 TIME:1849 PATIENT: MORELIA ROMEO UNIT #: [id number]#: [id number] ROOM/BED:: 68 AGE: 49 SEX: F PCP [...] date Free Text HPI NotesFree Text HPI Ybohs17-nfgw-ofb female with past medical history of hypertension [...] Ox 98 08/22 1616 B/P 132/72 08/22 161 B/P Mean 92 [...] 08/23/19 1635:[Embedded Image Not Available]Laboratory Tests: 08/22 1635 Chemistry Sodium (134 - 147 mmol/L) 138 [...] % (Auto) (20.5 - 51.1 %) 22.1 Pender % (Auto) (1.7 - 9.3 %) 7.9 Eos % (Auto) (0.0 - 6.0 %) 2.5 Baso % (Auto) (0.0 - 2.0 %) 0.5 Neut # (Auto) (1.8 - 7.6 K/mm3) 4.0 Lymph # (Auto) (0.6 - 3.2 K/mm3) 1.3 Pender # (Auto) (0.3 - 1.1 K/mm3) 0.5 [...] Report Impression - Status: SIGNED Entered: 08/23/2019 5329 IMPRESSION: 1. No evidence of acute intracranial abnormality.2. Specifically, no evidence of hemorrhage, mass or stroke.Impression By: ScottieNB16 - Miguel Banker, M.D. Lab Imaging StatementLaboratory radiographic studies reviewed [...] MidLv Saw Pt AloneI have reviewed the PA/RENEWALS MANAGER's note and plan of care. I was available for consultation as needed at all times during the patient's visit in the emergency department. I agree with the clinical impression, plan and disposition. at 2018 at [address] [facility] #: [id number] OF REPORTEDKlickitat Valley Health department wbfsdp7657-26-18X79:50:00L.[id number] ilable for patient aucqUSPDOGIJQXBLIO6033-75-93X51:01:50 [facility]
[2023-08-18 01:33] LABS: Absolute Lymphocytes (CBC) 0.4 K/uL (0.7-4.9); Absolute Monocytes 0.2 K/uL (0.1-1.3); Absolute Neutrophil 3.3 K/uL (1.8-8.0); Basophils % 0.3 % (0-1.3); Hematocrit 27.6 % (36.0-45.0); Lymphocytes % 10.2 % (15.3-44.8); MCH 31.1 pg (27.0-35.0); MCHC 32.5 g/dL (32.0-36.0); MCV 95.4 fL (80-100); MPV 9.5 fL (7.6-11.3); Monocytes % 5.2 % (3.3-12.3); Neutrophils % 83.3 % (41.7-73.7); Nucleated Red Blood Cells % 0.1 % (0-0); Platelets 123 thou/uL (152-406); RBC Red Blood Cell Count 2.89 M/uL (3.86-4.86)
[2023-08-18 02:11] LABS: ALT/SGPT 29 U/L (13-56); AST/SGOT 14 U/L (15-37); Albumin 2.3 g/dL (3.4-5.0); Albumin/Globulin Ratio 0.7 (1.1-1.8); Alkaline Phosphatase 301 U/L (45-117); Anion Gap 10.3 mEq/L (5.0-15.0); BUN Blood Urea Nitrogen 35 mg/dL (7-18); Bicarbonate 26 mEq/L (21-32); Bilirubin Total 0.4 mg/dL (0.2-1.0); Globulin 3.5 g/dL (2.3-3.5); Glomerular Filtration Rate 15 ml/min (=/>90); Lipase 57 U/L (13-75); NT PRO-BNP > 175000 pg/mL (<125); Potassium 3.3 mEq/L (3.5-5.1); Protein, Total 5.8 g/dL (6.4-8.2); Sodium Level 127 mEq/L (136-145); Troponin High Sensitivity 42.8 pg/mL (<58.9)
[2023-08-18 02:12] LABS: Glucose Level 853 mg/dL (74-106)
[2023-08-18] MEDS ORDERED: INSULIN REGULAR (HUMAN) 100 UNIT/ML ONE ×2 (02:13→03:39)
--- NOTE | 2023-08-18 03:26 | ER ---
Nurse's Notes [facility] Name: Alyson Mayfield Age: 53 yrs Sex: Female : 1970 Arrival Date: 08/18/2023 Time: 00:17 Bed 19 Private MD: Diagnosis: Type 1 diabetes mellitus with hyperglycemia;Uncontrolled diabetes, hyperglycemic hyperosmolar nonketotic syndrome, moderate dehydration Presentation: 08/17 00:36 Chief complaint: Patient states: I have had high blood sugar all day. I checked it jb4 around 1130 and it was over 500. I took my 10 units of lantus at 830pm. It didn't help. I just need my sugars under control. Coronavirus screen: At this time, the client does not indicate any symptoms associated with coronavirus-19. Ebola Screen: No symptoms or risks identified at this time. Initial Sepsis Screen: Does the patient meet any 2 criteria? No. Patient's initial sepsis screen is negative. Does the patient have a suspected source of infection? No. Patient's initial sepsis screen is negative. Risk Assessment: Do you want to hurt yourself or someone else? Patient reports no desire to harm self or others. Onset of symptoms was August 18, 2023. Transition of care: patient was not received from another setting of care. 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 - Infectious Disease History:: Denies. - Social history:: Smoking status: Patient denies any tobacco usage or history of. Screenin:21 [facility] ED Fall Risk Assessment (Adult) History of falling in the last 3 months, tm6 including since admission No falls in past 3 months (0 pts) Confusion or Disorientation No (0 pts) Intoxicated or Sedated No (0 pts) Impaired Gait No (0 pts) Mobility Assist Device Used No (0 pt) Altered Elimination No (0 pt) Score/Fall Risk Level 0 - 2 = Low Risk Oriented to surroundings, Maintained a safe environment, Educated pt \T\ family on fall prevention, incl call for assistance when getting out of bed. Abuse screen: Denies threats or abuse. Denies injuries from another. Nutritional screening: No deficits noted. Tuberculosis screening: No symptoms or risk factors identified. Assessment: 00:44 General: Appears in no apparent distress. Behavior is calm, cooperative. Pain: Denies tm6 pain. Neuro: Level of Consciousness is awake, alert, obeys commands, Oriented to person, place, time, situation. Cardiovascular: Patient's skin is warm and dry. 01:12 Reassessment: Patient appears in no apparent distress at this time. Patient and/or tm6 family updated on plan of care and expected duration. Pain level reassessed. Patient is alert, oriented x 3, equal unlabored respirations, skin warm/dry/pink. 04:00 Reassessment: Patient and/or family updated on plan of care and expected duration. Pain ha1 level reassessed. Patient is alert, oriented x 3, equal unlabored respirations, skin warm/dry/pink. 05:04 Reassessment: Patient and/or family updated on plan of care and expected duration. Pain ha1 level reassessed. Patient is alert, oriented x 3, equal unlabored respirations, skin warm/dry/pink. Vital Signs: 00:36 BP 169 / 76; Pulse 76; Resp 16; Temp 98.2(O); Pulse Ox 97% on R/A; Weight 55.34 kg (M); jb4 01:12 BP 161 / 74; Pulse 70; Pulse Ox 100% on R/A; Pain 0/10; tm6 02:22 BP 175 / 83; Pulse 76; Pulse Ox 96% on R/A; Pain 0/10; tm6 03:00 BP 187 / 85; Pulse 77; Resp 17 S; Pulse Ox 95% on R/A; ha1 03:50 BP 181 / 85; Pulse 78; Resp 17 S; Pulse Ox 94% on R/A; ha1 04:30 BP 171 / 81; Pulse 74; Resp 18 S; Pulse Ox 95% on R/A; ha1 05:24 BP 165 / 79; Pulse 73; Resp 17 S; Temp 97.6; Pulse Ox 98% on R/A; ha1 01:12 Pain Scale: Adult tm6 02:22 Pain Scale: Adult tm6 Soledad Coma Score: 03:26 Eye Response: spontaneous(4). Motor Response: obeys commands(6). Verbal Response: sp4 oriented(5). Total: 15. ED Course: 00:20 Patient arrived in ED. gm2 00:22 Lee Leija MD is Attending Physician. sp4 00:28 Gladis Ramos, RN is Primary Nurse. tm6 00:40 Triage completed. jb4 00:40 Arm band placed on right wrist. jb4 00:43 BNP Sent. tm6 00:43 Troponin High Sensitivity Sent. tm6 00:43 CBC with Diff Sent. tm6 00:43 CMP Sent. tm6 00:43 Lipase Sent. tm6 00:43 Inserted saline lock: 22 gauge in right antecubital area, using aseptic technique. tm6 01:00 Patient has correct armband on for positive identification. Bed in low position. Call tm6 light in reach. Side rails up X 1. Provided Education on: use of call lopez. Client placed on continuous cardiac and pulse oximetry monitoring. NIBP monitoring applied. Pulse ox on. NIBP on. Door closed. Noise minimized. Lights dimmed. Warm blanket given. Pillow given. 02:10 Notified ED physician of a critical lab result(s). glucose 853. tm6 02:52 Report given to Louisa RIVAS. tm6 03:24 Gaudencio Arriaga MD is Hospitalizing Provider. sp4 03:46 Chest Single View XRAY In Process Unspecified. EDMS 05:34 No provider procedures requiring assistance completed. ha1 06:07 Patient admitted, IV remains in place. ha1 Administered Medications: 00:24 Not Given (Physician Discretion): ns 0.9% 1000 ml IV at 1 bolus Per protocol; 1000 mL sp4 bolus 02:18 Drug: Insulin Regular Human IVP 10 units IVP once {Co-Signature: rob (Louisa Tilley tm6 RN).} Route: IVP; Site: right antecubital; 03:00 Follow up: Response: No adverse reaction; Blood sugar is lowered ha1 03:45 Drug: Insulin Regular Human IVP 5 units IVP once {Co-Signature: tonya (Javier Sim1 RN).} Route: IVP; Site: right antecubital; 04:45 Follow up: Response: No adverse reaction; Temperature is unchanged [facility] 03:51 Drug: NS 0.9% IV 1000 ml IV at 75 ml/hr continuous Route: IV; Rate: 75 ml/hr; Site: ha1 right antecubital; 06:00 Follow up: IV Status: IV converted to saline lock; IV Intake: 150ml ha Medication: 02:21 VIS not applicable for this client. tm6 Intake: 06:00 IV: 150ml; Total: 150ml. ha1 Outcome: 03:25 Decision to Hospitalize by Provider. sp4 06:07 Patient left the ED. 1 06:07 Admitted to Med/surg accompanied by nurse, via wheelchair, room 229, with chart, 1 06:07 Condition: stable 1 06:07 Instructed on the need for admit, Demonstrated understanding of instructions, Signatures: Dispatcher [employer] EDMS Javier Sim RN RN jb4 Louisa Tilley RN RN ha1 Lee Leija MD MD sp4 Beulah Rodriguez Tawney, RN RN 6 Louisa Tilley RN ha1 Javier Sim RN jb4 Corrections: (The following items were deleted from the chart) 06:24 05:24 BP 165 / 79; Pulse 73bpm; Resp 17bpm; Spontaneous; Pulse Ox 98% RA; ha1 ha1
--- NOTE | 2023-08-18 03:27 | EDPHYS ---
Physician Documentation [facility] Name: Alyson Mayfield Age: 53 yrs Sex: Female : 1970 Arrival Date: 08/18/2023 Time: 00:17 Bed 19 Private MD: ED Physician Lee Leija HPI: 08/17 00:22 This 53 yrs old Female presents to ER via Unassigned with complaints of High sp4 Blood Sugar. 03:15 53-year-old female presents to the emergency room with report of blood sugar that is sp4 high. Patient went to dialysis unit on 08/17/2023 and they have refused to dialyze her because her sugar was too high. Patient reports generalized weakness. Patient has medical history of tunneled dialysis catheter in the right side, history of hypertension, hyperlipidemia, CHF, hypothyroidism. She gets dialysis Tuesday. 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 Ejection fraction 40%. Patient has history of very poorly controlled diabetes. Her medications consist of Renvela, Lasix 80 mg twice daily, Coreg 25 mg p.o. twice daily, aspirin 81 mg p.o. daily, Plavix 75 mg p.o. daily for 12 months, Lipitor 40 mg p.o. nightly, [place] Thyroid 60 mg p.o. daily, vitamin D 4000 units p.o. daily, Semglee 18 units every morning. Patient states she injects insulin glargine at home for blood sugar control. Patient states she injects 10 units of glargine daily which is Lantus 30 Home medications include cholecalciferol, clopidogrel, furosemide, ferrous sulfate, lidocaine patch, Protonix, potassium, sevelamer, thyroid [place] Thyroid, aspirin, atorvastatin, insulin glargine 10 units subcu daily, Protonix, sevelamer, carvedilol.. 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 - Infectious Disease History:: Denies. - Social history:: Smoking status: Patient denies any tobacco usage or history of. ROS: 03:26 Constitutional: Negative for fever, chills, and weight loss, positive for generalized sp4 weakness and elevated blood sugar 03:26 All other systems are negative, Exam: 03:26 Constitutional: This is a well developed, thin appearing female, signs of weight loss, sp4 right chest wall tunneled dialysis catheter. Head/Face: Normocephalic, atraumatic. Eyes: Pupils equal round and reactive to light, extra-ocular motions intact. Lids and lashes normal. Conjunctiva and sclera are not injected. Cornea within normal limits. Periorbital areas with no swelling, redness, or edema. ENT: Nares patent. No nasal discharge, no septal abnormalities noted. Tympanic membranes are normal and external auditory canals are clear. Oropharynx with no redness, swelling, or masses, exudates, or evidence of obstruction, uvula midline. Mucous membranes moist. Neck: Trachea midline, no thyromegaly or masses palpated, and no cervical lymphadenopathy. Supple, full range of motion without nuchal rigidity, or vertebral point tenderness. Chest/axilla: Normal chest wall appearance and motion. Nontender with no deformity. No lesions are appreciated. Cardiovascular: Regular rate and rhythm with a normal S1 and S2. No gallops, murmurs, or rubs. Normal PMI, no JVD. No pulse deficits. Respiratory: Lungs have equal breath sounds bilaterally, clear to auscultation and percussion. No rales, rhonchi or wheezes noted. No increased work of breathing, no retractions or nasal flaring. Abdomen/GI: Soft, with normal bowel sounds. No distension or tympany. No guarding or rebound. No evidence of tenderness throughout. Back: No spinal tenderness. No costovertebral tenderness. Skin: Warm, dry with normal turgor. Normal color with no rashes, no lesions, and no evidence of cellulitis. MS/ Extremity: Pulses equal, no cyanosis. Neurovascular intact. Full, normal range of motion. Neuro: Awake and alert, GCS 15, oriented to person, place, time, and situation. Cranial nerves II-XII grossly intact. Motor strength 5/5 in all extremities. Sensory grossly intact. Psych: Awake, alert, with orientation to person, place and time. Behavior, mood, and affect are within normal limits 04:01 ECG was reviewed by the Attending Physician. EKG at 0 332 normal sinus rhythm, sp4 prolonged QT otherwise normal. Sinus rhythm with a rate of 77. Vital Signs: 00:36 BP 169 / 76; Pulse 76; Resp 16; Temp 98.2(O); Pulse Ox 97% on R/A; Weight 55.34 kg (M); jb4 01:12 BP 161 / 74; Pulse 70; Pulse Ox 100% on R/A; Pain 0/10; tm6 02:22 BP 175 / 83; Pulse 76; Pulse Ox 96% on R/A; Pain 0/10; tm6 03:00 BP 187 / 85; Pulse 77; Resp 17 S; Pulse Ox 95% on R/A; ha1 03:50 BP 181 / 85; Pulse 78; Resp 17 S; Pulse Ox 94% on R/A; ha1 04:30 BP 171 / 81; Pulse 74; Resp 18 S; Pulse Ox 95% on R/A; ha1 05:24 BP 165 / 79; Pulse 73; Resp 17 S; Temp 97.6; Pulse Ox 98% on R/A; ha1 01:12 Pain Scale: Adult tm6 02:22 Pain Scale: Adult tm6 [place] Coma Score: 03:26 Eye Response: spontaneous(4). Motor Response: obeys commands(6). Verbal Response: sp4 oriented(5). Total: 15. MDM: 00:22 Patient medically screened. sp4 03:27 Differential diagnosis: diabetes insipidus, DKA, hypothyroidism, myxedema coma. Data sp4 reviewed: vital signs, nurses notes, old medical records, lab test result(s), EKG, radiologic studies. Consideration of Admission/Observation Patient was admitted/placed on observation. Escalation of care including admission/observation considered. Management of patient was discussed with the following: Hospitalist: Bart VILCHIS . 08/17 00:22 Order name: CBC with Diff; Complete Time: 03:09 sp4 08/17 00:22 Order name: CMP; Complete Time: 03:09 sp4 08/17 00:22 Order name: Lipase; Complete Time: 03: sp4 08/17 00:24 Order name: Troponin High Sensitivity; Complete Time: 03:09 sp4 08/17 00:24 Order name: BNP; Complete Time: 03:09 sp4 08/17 01:51 Order name: Glucose, Ancillary Testing; Complete Time: 03:09 EDMS 08/17 02:54 Order name: Glucose, Ancillary Testing; Complete Time: 03:09 EDMS 08/17 03:23 Order name: Glucose; Complete Time: 05:47 ha1 08/17 03:33 Order name: BMP: 04:30; Complete Time: 05:47 sp4 08/17 03:34 Order name: Glucose, Ancillary Testing; Complete Time: 04:03 EDMS 08/17 04:54 Order name: Glucose, Ancillary Testing; Complete Time: 05:47 EDMS 08/17 04:58 Order name: BMP ha1 08/17 05:05 Order name: Urinalysis w/ reflexes EDMS 08/17 05:05 Order name: CBC with Automated Diff EDMS 08/17 05:05 Order name: CBC with Automated Diff EDMS 08/17 05:05 Order name: Comprehensive Metabolic Panel EDMS 08/17 05:05 Order name: Comprehensive Metabolic Panel EDMS 08/17 03:11 Order name: Chest Single View XRAY sp4 08/17 03:12 Order name: EKG; Complete Time: 03:13 sp4 08/17 00:22 Order name: IV Saline Lock; Complete Time: 00:43 sp4 08/17 00:22 Order name: Labs collected and sent; Complete Time: 00:43 sp4 08/17 00:58 Order name: Misc. Order: recollect labs; Complete Time: 01:12 kmf 08/17 01:24 Order name: Accucheck Blood Glucose; Complete Time: 01:39 sp4 08/17 03:12 Order name: EKG - Nurse/Tech; Complete Time: 03:38 sp4 EC:01 Rate is 77 beats/min. Rhythm is regular, Normal Sinus Rhythm. QRS Secor is Normal. CA sp4 interval is normal. QRS interval is normal. QT interval is prolonged. T waves are Inverted in leads V5, V6. No ST changes noted. Clinical impression: No evidence of ischemia. Interpreted by me. Reviewed by me. Administered Medications: 00:24 Not Given (Physician Discretion): ns 0.9% 1000 ml IV at 1 bolus Per protocol; 1000 mL sp4 bolus 02:18 Drug: Insulin Regular Human IVP 10 units IVP once {Co-Signature: [email or web address] (Louisa Tilley tm6 RN).} Route: IVP; Site: right antecubital; 03:00 Follow up: Response: No adverse reaction; Blood sugar is lowered [facility] 03:45 Drug: Insulin Regular Human IVP 5 units IVP once {Co-Signature: [email or web address] (Javier Sim ha1 RN).} Route: IVP; Site: right antecubital; 04:45 Follow up: Response: No adverse reaction; Temperature is unchanged [facility] 03:51 Drug: NS 0.9% IV 1000 ml IV at 75 ml/hr continuous Route: IV; Rate: 75 ml/hr; Site: ha1 right antecubital; 06:00 Follow up: IV Status: IV converted to saline lock; IV Intake: 150ml [facility] Disposition Summary: 08/18/23 03:25 Hospitalization Ordered Notes: Hospitalization Status: Observation sp4 Provider: Gaudencio Arriaga sp4 Location: Telemetry/MedSurg (observation) sp4 Condition: Stable sp4 Problem: new sp4 Symptoms: have improved sp4 Bed/Room Type: Standard sp4 Room Assignment: 229(08/18/23 05:11) [facility] Diagnosis - Type 1 diabetes mellitus with hyperglycemia sp4 - Uncontrolled diabetes, hyperglycemic hyperosmolar nonketotic syndrome, moderate sp4 dehydration Forms: - Medication Reconciliation Form sp4 - SBAR form sp4 - Leadership Thank You Letter sp4 Signatures: Dispatcher [employer] Javier Miller RN RN jb4 Louisa Tilley RN RN ha1 Potepalov, Sergey, MD MD sp4 Caroline David [facility] Gladis Ramos RN RN tm6 Louisa Tilley RN haJavier Tobin RN jb4 Corrections: (The following items were deleted from the chart) 03:24 03:24 GLUCOSE+C.LAB.BRZ ordered. EDMS EDMS 05:11 03:25 sp4 [facility]
[2023-08-18] MEDS ORDERED: NA CHLORIDE 0.9% 1,000 ML ONE (03:39)
[2023-08-18 04:11] LABS: Anion Gap 11.7 mEq/L (5.0-15.0); Potassium 2.7 mEq/L (3.5-5.1)
[2023-08-18] MEDS ORDERED: ACETAMINOPHEN 325 MG TABLET PO PRN (04:58)
[2023-08-18] MEDS ORDERED: ONDANSETRON 4 MG/2 ML VIAL IV PRN (04:58)
[2023-08-18] MEDS ORDERED: D50W 25 GM/50 ML SYRINGE IV PRN (05:05)
[2023-08-18] MEDS ORDERED: GLUCAGON 1 MG/VIAL IM PRN (05:05)
--- NOTE | 2023-08-18 05:08 | P.HP ---
Certification for Inpatient Patient admitted to: Observation With expected LOS: <2 Midnights Practitioner: I am a practitioner with admitting privileges, knowledge of patient current condition, hospital course, and medical plan of care. Services: Services provided to patient in accordance with Admission requirements found in Title 42 Section 412.3 of the Code of Federal Regulations Patient History Date of Service: 08/18/23 Reason for admission: Hyperglycemia History of Present Illness: 53 yrs old Female with a past medical history of diabetes, hypertension, CHF, hypothyroidism, ESRD on dialysis Tuesday recently started on dialysis. Came to ER with elevated blood sugar . Patient went to dialysis unit on 08/17/2023 and they have refused to dialyze her because her sugar was too high. She gets dialysis Tuesday, Tuesday . 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 Patient has history of very poorly controlled diabetes. She states that she is out of medication for diabetes. Denies any fever or chills. Denies any chest pain or shortness of breath. Denies any nausea vomiting or diarrhea at this time. Complains of generalized weakness associated with increased thirst. Denies any abdominal pain. Patient was assessed in the ER and was found to have blood sugar more than 700 and is being admitted for further management of hyperglycemia Allergies sulfamethoxazole [From Bactrim] Allergy (Verified 07/09/22 16:03) facial swelling trimethoprim [From Bactrim] Allergy (Verified 07/09/22 16:03) facial swelling Tramadol HCl Allergy (Uncoded 07/09/22 16:03) Hives/Rash Home medications list reviewed: Yes Home Medications: Cholecalciferol (Vitamin D3) [Vitamin D 1000 Iu Tab*] 4,000 unit PO DAILY tab 04/06/21 Clopidogrel Bisulfate [Plavix*] 1 tab PO DAILY 07/19/22 Furosemide [Lasix] 80 mg PO BID #60 tab 02/19/23 Ferrous Sulfate [Ferrous Sulfate*] 325 mg PO M,W,F 07/14/23 Clopidogrel Bisulfate [Plavix*] 75 mg PO DAILY 07/22/23 Lidocaine 4% Patch [Lidoderm 5% Patch*] 1 patch TOP DAILY 30 Days #30 pat 07/22/23 Pantoprazole [Protonix Tab*] 20 mg PO M,W,F 30 Days #30 tab 07/22/23 Potassium Chloride 20 meq PO DAILY 30 Days #30 tab 07/22/23 Sevelamer Carbonate [Renvela*] 1,600 mg PO TIDWM 07/22/23 Thyroid Tab [[place] Thyroid*] 60 mg PO DAILY@0600 tab 07/22/23 Aspirin [Aspirin EC 81 MG] 81 mg PO DAILY #180 tab 07/26/23 Atorvastatin Calcium [Lipitor] 40 mg PO BEDTIME #90 tab 07/26/23 Blood Sugar Diagnostic [Freestyle Lite Test Strip] 1 each MC TID #1 unit 07/26/23 Blood-Glucose Meter,Continuous [Freestyle Tea 3 [place]] 1 each MC DAILY #1 ea 07/26/23 Blood-Glucose Sensor [Freestyle Tea 3 Sensor] 1 each MC DAILY #1 ea 07/26/23 Cholecalciferol (Vitamin D3) [Vitamin D 1000 Iu Tab*] 4,000 unit PO DAILY #90 tab 07/26/23 Insulin Glargine,Hum.rec.anlog [Semglee] 10 unit SQ DAILY #2 udpkt 07/26/23 Pantoprazole [Protonix Tab*] 20 mg PO M,W,F #60 tab 07/26/23 Sevelamer Carbonate [Renvela*] 800 mg PO TIDWM #90 tab 07/26/23 carvediloL [Coreg] 25 mg PO BID #90 tab 07/26/23 - Past Medical/Surgical History Diabetic: Yes Past Medical History: Reviewed- Non-Contributory -: Diabetes mellitus type II -: Hypothyroid -: Hypertension -: CHF -: chronic kidney disease -: chronic diarrhea Past Surgical History: Reviewed- Non-Contributory -: Tubal ligation -: Cholecystectomy -: cardiac stent x 2 Psychosocial/ Personal History: 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 Has not been able to see her Physicians because she is unable to leave the house 2nd to diarrhea. States she has had every study there is but swallowing the camera - Family History Family History: Reviewed- Non-Contributory - Family History Father -: Hypertension, Diabetes, Cancer Mother -: Diabetes, Cancer - Social History Smoking Status: Never smoker Alcohol use: No CD- Drugs: No Caffeine use: Yes Review of Systems 10-point ROS is otherwise unremarkable Physical Examination - Vital Signs Temperature: 97.6 F Blood Pressure: 142/78 Pulse: 76 Respirations: 18 Pulse Ox (%): 94 - Physical Exam General: Alert, In no apparent distress, Oriented x3 HEENT: Atraumatic, Normocephalic Neck: Supple, 2+ carotid pulse no bruit Respiratory: Clear to auscultation bilaterally, Normal air movement Cardiovascular: Normal pulses, Regular rate/rhythm, Normal S1 S2 Capillary refill: <2 Seconds Gastrointestinal: Soft and benign, W/out hepatosplenomegaly Musculoskeletal: No clubbing, No swelling Integumentary: No rashes, No breakdown Neurological: Normal speech, Normal strength at 5/5 x4 extr, Cranial nerves 3-12 intact, Normal reflexes 2+ Lymphatics: No axilla or inguinal lymphadenopathy - Studies Laboratory Data (last 24 hrs) 08/18/23 08/18/23 08/18/23 03:00 03:00 01:09 WBC Hgb Hct Plt Count Sodium 128 L 127 L Potassium 2.7 L D 3.3 L BUN 36 H 35 H Creatinine 3.33 H 3.39 H Glucose 735 H* 733 H* 853 H* Total Bilirubin 0.4 AST 14 L ALT 29 Alkaline Phosphatase 301 H Lipase 57 08/18/23 01:09 WBC 4.00 L Hgb 9.0 L Hct 27.6 L Plt Count 123 L Sodium Potassium BUN Creatinine Glucose Total Bilirubin AST ALT Alkaline Phosphatase Lipase Assessment and Plan - Problems (Diagnosis) (1) Diabetes Current Visit: No Status: Acute Plan: Severe hyperglycemia Uncontrolled diabetes Patient is out of medication Supposed to get Lantus daily Aggressive insulin sliding scale IV hydration Anion gap is 11 Monitor BMP every 4 hours Uncontrolled diabetes Started on Lantus as well as sliding scale Discussed with patient regarding medication compliance Hypokalemia Replace electrolytes Will monitor BMP Monitor under telemetry ESRD On dialysis Nephrology consulted Monitor renal parameters Hypertension Antihypertensives titrated Continue home medications and titrate as needed Hyperlipidemia Continue statin Anemia of chronic disease Monitor H&H closely No overt bleeding at this time GI/DVT prophylaxis Advanced directive full code Discharge Plan: Home Plan to discharge in: 48 Hours - Advance Directives Does patient have a Living Will: No Does patient have a Durable POA for Healthcare: No Time Spent Managing Pts Care (In Minutes): 48
[2023-08-18] MEDS ORDERED: D10W 125 ML IV PRN ×2 (05:28→08:28)
[2023-08-18 06:11] LABS: Anion Gap 11.7 mEq/L (5.0-15.0); Potassium 2.7 mEq/L (3.5-5.1)
[2023-08-18] MEDS: INSULIN GLARGINE 100 UNIT/ML SQ SCH (06:44)
[2023-08-18] MEDS: INSULIN REGULAR (HUMAN) 100 UNIT/ML SQ SCH ×2 (08:23→12:37)
[2023-08-18 08:48] VITALS: BMI 22.3
[2023-08-18] MEDS: DIPHENHYDRAMINE 25 MG TAB/CAP PO PRN (09:11)
[2023-08-18] MEDS: NACHLORIDE 0.45% 1,000 ML with POTASSIUM CL 40 MEQ IV SCH (10:19)
[2023-08-18 12:22] VITALS: O2SAT 96
--- NOTE | 2023-08-18 15:05 | P.PN ---
Date of Service: 08/18/23 Patient seen and examined. She has no new complaint. Blood sugars are improving with the current insulin regimen. Titrate basal insulin. Continue insulin sliding scale. Anticipating DC in a.m. Will consult and continue other home medications.
[2023-08-18 22:57] LABS: Anion Gap 9.6 mEq/L (5.0-15.0); Potassium 3.6 mEq/L (3.5-5.1)
--- NOTE | 2023-08-19 00:53 | CON ---
Date of Consultation: 08/18/2023 Chief Complaint: End-stage renal disease, on hemodialysis. History Of Present Illness: The patient is a 53-year-old woman with past medical history significant for diabetes mellitus, diabetic nephropathy, neuropathy, hypertension, congestive heart failure, hyp othyroidism, and end-stage renal disease, on dialysis Tuesday, Tuesday, Tuesday. The patient is admi tted to the hospital because of severe hyperglycemia. She came to the emergency room because blood g lucose was elevated. The patient went to dialysis unit on August 16 and the patient subsequently was referred to emergency room because blood glucose was very high. The patient has history of poorly-c ontrolled diabetes mellitus. She currently was out of her diabetic medication. The patient recently was initiated on hemodialysis when she was admitted to ICU with severe fluid overload, congestive he art failure, and she did not respond to diuretic. She had significant hyperazotemia and fluid overlo ad. Review of Systems: General: The patient denies fever or chills. Eyes: Denies vision changes. Ears, Nose, Mouth, and Throat: Denies sore throat or earache. Respiratory: Denies cough or hemoptysis. Cardiovascular: Denies chest pain or syncope. GI: Denies nausea or vomiting. : Denies dysuria or hematuria. All other systems are reviewed and all are negative. Past Medical History: Diabetes mellitus type 2, diabetic kidney disease, hypothyroidism, hypertensio n, congestive heart failure with systolic and diastolic dysfunction, chronic kidney disease due to di abetes mellitus and hypertension. End-stage renal disease, on hemodialysis. Chronic diarrhea. Past Surgical History: Tubal ligation, cholecystectomy, cardiac stents. Family History: Father: Diabetes mellitus, hypertension, cancer. Mother: Diabetes mellitus, cance r. Social History: Denies tobacco or alcohol. Denies drugs. Physical Examination: General: The patient is awake, alert. Follows commands. Eyes: Anicteric sclerae. EOMI. Ears, Nose, Mouth, and Throat: Oral mucosa moist. No pallor. Neck: Supple. No bruits. Lungs: Clear to auscultation bilaterally. Heart: S1, S2. Abdomen: Soft. Extremities: Minimal edema. Laboratory Work: On arrival to the hospital, blood glucose was 735, sodium 128, potassium 2.7, BUN 3 6, creatinine 3.39. Impression And Plan: 1.End-stage renal disease. The patient will resume dialysis when blood glucose is controlled. Dial ysis is scheduled for tomorrow. The patient does not have uremic symptomatology and fluid overload i s controlled. The patient is euvolemic. Continue to monitor electrolytes and adjust insulin to cont rol glycemia. Dialysis will be done when blood glucose is below 200. 2.Hyponatremia, secondary to severe hyperglycemia. Monitor electrolytes. Continue treatment with i nsulin. The patient does not have metabolic acidosis. Anion gap is 11. The patient has severe hype rosmolar state due to hyperglycemia and uncontrolled diabetes mellitus. The patient needs to continu e insulin and insulin was started with aggressive insulin sliding scale. 3.Hypokalemia. Replace electrolytes. Monitor magnesium, potassium, and renal panel. 4.Hyperlipidemia. Continue statin. 5.Anemia due to chronic kidney disease. Monitor hemoglobin level and hematocrit. 6.Renal osteodystrophy. Monitor phosphorus level and continue binders with diet. EB/MODL Voice ID: [id number] Report ID: [id number]
[2023-08-19 02:59] LABS: Absolute Eosinophils 0.2 K/uL (0-0.5); Absolute Lymphocytes (CBC) 0.9 K/uL (0.7-4.9); Absolute Monocytes 0.4 K/uL (0.1-1.3); Basophils % 0.4 % (0-1.3); Eosinophils % 2.4 % (0-4.4); Hematocrit 27.5 % (36.0-45.0); Hemoglobin 9.2 g/dL (12.0-15.0); Lymphocytes % 13.6 % (15.3-44.8); MCH 30.5 pg (27.0-35.0); MCHC 33.2 g/dL (32.0-36.0); MCV 91.8 fL (80-100); MPV 9.3 fL (7.6-11.3); Monocytes % 6.7 % (3.3-12.3); Neutrophils % 76.9 % (41.7-73.7); Platelets 156 thou/uL (152-406); Red Cell Distribution Width 13.9 % (12.1-15.2)
[2023-08-19 03:41] LABS: Albumin 2.3 g/dL (3.4-5.0); Albumin/Globulin Ratio 0.7 (1.1-1.8); Anion Gap 12.5 mEq/L (5.0-15.0); Bilirubin Total 0.3 mg/dL (0.2-1.0); Globulin 3.2 g/dL (2.3-3.5); Potassium 3.5 mEq/L (3.5-5.1); Protein, Total 5.5 g/dL (6.4-8.2)
--- NOTE | 2023-08-19 06:30 | RAD REPORT ---
EXAM DESCRIPTION: RAD - Chest Single View - 08/18/2023 3:45 am CLINICAL HISTORY: DYSPNEA COMPARISON: 08/15/2023 FINDINGS: Single frontal view of the chest. Tubes and lines: Right IJ tunneled hemodialysis catheter tip in the SVC. Cardiomediastinal silhouette: Stable Lungs: Pulmonary edema pattern with moderate right and small left pleural effusion. No pneumothorax. Bones: Stable. Upper abdomen: Stable. IMPRESSION: Persistent pulmonary edema pattern. Electronically signed by: Patel Guevara DO 08/18/2023 04:42 AM CDT RP [id number] Due to temporary technical issues with the PACS/Fluency reporting system, reports are being signed by the in house radiologists without review as a courtesy to insure prompt reporting. The interpreting radiologist is fully responsible for the content of the report.
[2023-08-19] MEDS: POTASSIUM CL SA 10 MEQ TAB PO ONE (08:24)
[2023-08-19 09:57] VITALS: BP 158/86; TEMP 97.1
--- NOTE | 2023-08-19 11:00 | P.DS ---
Admission Date: 08/18/23 Discharge Date: 08/19/23 Disposition: ROUTINE DISCHARGE Discharge Condition: FAIR Reason for Admission: Hyperglycemia - Problems (1) Type 2 diabetes mellitus with hyperglycemia Current Visit: Yes Status: Acute (2) ESRD (end stage renal disease) Current Visit: No Status: Acute (3) Hyponatremia Current Visit: Yes Status: Acute (4) Hyperosmolar hyponatremia Current Visit: Yes Status: Acute (5) Anemia in chronic kidney disease (CKD) Current Visit: Yes Status: Acute Brief History of Present Illness: 53 yrs old Female with a past medical history of diabetes, hypertension, CHF, hypothyroidism, ESRD on dialysis Tuesday recently started on dialysis. Came to ER with elevated blood sugar . Patient went to dialysis unit on 08/17/2023 but dialysis was not done because her blood sugar was too high. She has history of very poorly controlled diabetes. She states that she was out of oral medication for diabetes and she just started 10 units of Lantus insulin daily. Patient was assessed in the ER and was found to have blood sugar more than 700 and was hospitalized for further management of hyperglycemia Hospital Course: Patient placed under observation on the medical floor and started on Lantus i nsulin 20 units daily and insulin sliding scale. She was asymptomatic during the hospital stay. Her blood sugar improved significantly on the basal insulin. Patient was seen and evaluated by nephrology for routine hemodialysis. Hemoglobin A1c is 13 recommend insulin therapy for now. Patient voiced understanding. She is clinically stable for discharge. Vital Signs/Physical Exam: Temp Pulse Resp BP Pulse Ox 97.1 F 63 12 158/86 H 95 08/19/23 08:00 08/19/23 08:00 08/19/23 08:00 08/19/23 08:00 08/19/23 08:00 General: Alert, In no apparent distress, Oriented x3 HEENT: Mucous membr. moist/pink Neck: Supple, JVD not distended Respiratory: Clear to auscultation bilaterally, Normal air movement Cardiovascular: No edema, Regular rate/rhythm, Normal S1 S2 Gastrointestinal: Normal bowel sounds, Soft and benign, Non-distended, No tenderness Musculoskeletal: No swelling Integumentary: No rashes, No cyanosis Neurological: Normal strength at 5/5 x4 extr Laboratory Data at Discharge: WBC 6.50 thou/uL (4.3-10.9) 08/19/23 02:40 Hgb 9.2 g/dL (12.0-15.0) L 08/19/23 02:40 Hct 27.5 % (36.0-45.0) L 08/19/23 02:40 Plt Count 156 thou/uL (152-406) D 08/19/23 02:40 Sodium 131 mEq/L (136-145) L 08/19/23 02:40 Potassium 3.5 mEq/L (3.5-5.1) 08/19/23 02:40 BUN 48 mg/dL (7-18) H 08/19/23 02:40 Creatinine 3.71 mg/dL (0.55-1.02) H 08/19/23 02:40 Glucose 133 mg/dL (74-106) H 08/19/23 02:40 Total Bilirubin 0.3 mg/dL (0.2-1.0) 08/19/23 02:40 AST 11 U/L (15-37) L 08/19/23 02:40 ALT 24 U/L (13-56) 08/19/23 02:40 Alkaline Phosphatase 229 U/L (45-117) H D 08/19/23 02:40 Lipase 57 U/L (13-75) 08/18/23 01:09 Home Medications: Clopidogrel Bisulfate [Plavix*] 1 tab PO DAILY 07/19/22 Furosemide [Lasix] 80 mg PO BID #60 tab 02/19/23 Ferrous Sulfate [Ferrous Sulfate*] 325 mg PO M,W,F 07/14/23 Potassium Chloride 20 meq PO DAILY 30 Days #30 tab 07/22/23 Thyroid Tab [[place] Thyroid*] 60 mg PO DAILY@0600 tab 07/22/23 Aspirin [Aspirin EC 81 MG] 81 mg PO DAILY #180 tab 07/26/23 Atorvastatin Calcium [Lipitor] 40 mg PO BEDTIME #90 tab 07/26/23 Blood Sugar Diagnostic [Freestyle Lite Test Strip] 1 each MC TID #1 unit 07/26/23 Blood-Glucose Meter,Continuous [Freestyle Tea 3 [place]] 1 each MC DAILY #1 ea 07/26/23 Blood-Glucose Sensor [Freestyle Tea 3 Sensor] 1 each MC DAILY #1 ea 07/26/23 Cholecalciferol (Vitamin D3) [Vitamin D 1000 Iu Tab*] 4,000 unit PO DAILY #90 tab 07/26/23 Pantoprazole [Protonix Tab*] 20 mg PO M,W,F #60 tab 07/26/23 carvediloL [Coreg*] 25 mg PO BID #90 tab 07/26/23 Insulin Glargine,Hum.rec.anlog [Semglee] 20 unit SQ DAILY #2 udpkt 08/19/23 New Medications: Insulin Glargine,Hum.rec.anlog [Semglee] 20 unit SQ DAILY #2 udpkt Followup: Jeet Manley MD [Primary Care Provider] - 1-2 Weeks
--- NOTE | 2023-08-20 01:26 | PN ---
Date of Progress Note: 08/19/2023 Chief Complaint: End-stage renal disease, on hemodialysis. Subjective: The patient is a 53-year-old woman with past medical history significant for diabetes me llitus, diabetic nephropathy, neuropathy, hypertension, congestive heart failure. The patient presen melissa to the hospital because of severe hyperglycemia. She was started on insulin. The patient is und ergoing dialysis today. Review of Systems: Denies chest pain, palpitation. Physical Examination: Lungs: Clear to auscultation bilaterally. Heart: S1, S2. Abdomen: Soft. Extremities: Minimal edema. Impression And Plan: 1.End-stage renal disease. Continue dialysis with ultrafiltration. Monitor fluid balance. 2.Hyponatremia secondary to severe hyperglycemia. The patient had hyperosmolar state. Anion gap wa s 11. There was no metabolic acidosis. No ketosis. 3.Hypokalemia. Replace electrolytes. Monitor electrolytes. 4.Anemia due to chronic kidney disease. Monitor hemoglobin level and hematocrit. EB/MODL Voice ID: [id number] Report ID: [id number]
--- NOTE | 2023-08-22 15:09 | EKG ---
Test Date: 2023-08-18 Test Time: 03:32:55 Improvement Rn: MICHELA MEASUREMENT RESULTS: Intervals: Rate: 77 [place]: 168 QRSD: 80 QT: 424 QTc: 479 [place]: P: 71 [place]: 168 QRS: 46 T: 253 INTERPRETIVE STATEMENTS: Normal sinus rhythm Possible Left atrial enlargement ST & T wave abnormality, consider inferolateral ischemia Prolonged QT Abnormal ECG Compared to ECG 08/15/2023 17:46:10 ST (T wave) deviation now present Right-axis deviation no longer present T-wave abnormality no longer present Possible ischemia still present Electronically Signed On 08-22-23 14:56:32 CDT by Heri Encarnacion
== END 2023-08-19 15:12 | disposition home or self-care (01) ==
LOC: ER 00:17 → 2ND 04:58
PROVIDERS: ADMIT Family Medicine; ATTEND Internal Medicine
DX: E11.65 Type 2 diabetes mellitus with hyperglycemia (principal); N18.6 End stage renal disease; I50.9 Heart failure, unspecified; E87.6 Hypokalemia; E11.22 Type 2 diabetes mellitus with diabetic chronic kidney disease; I12.0 Hypertensive chronic kidney disease with stage 5 chronic kidney disease or end stage renal disease; E78.5 Hyperlipidemia, unspecified; D63.1 Anemia in chronic kidney disease; E11.21 Type 2 diabetes mellitus with diabetic nephropathy; E11.40 Type 2 diabetes mellitus with diabetic neuropathy, unspecified; E03.9 Hypothyroidism, unspecified; K52.9 Noninfective gastroenteritis and colitis, unspecified; N25.0 Renal osteodystrophy; E87.1 Hypo-osmolality and hyponatremia; Z99.2 Dependence on renal dialysis; Z88.5 Allergy status to narcotic agent; Z88.1 Allergy status to other antibiotic agents
CPT/HCPCS: 96361; 93005; 85025 ×2; 80048 ×3; 36415 ×2; 82947 ×13; 84132; 84484; 83690; 80053 ×2; 83880; 71045; 90935 ×2; 96374; 99285; J3480; J1644; J7030; G0378 ×3

== ENCOUNTER 2023-08-22 16:43 | Emergency (ER) | payer BC ==
--- OUTSIDE RECORDS SUMMARY | 2023-08-22 16:51 | XMS REPORT | Continuity of Care Document ---
Author Name Unknown Address [address] [place] [address] [facility] thconnect Address [address] [place] [address] Care Team Providers Care Brass Buffer Name Role Phone Jeet Manley MD Primary Care Physician [phone] CHALO CHRISTIANSON Attending Clinician Unavailable [id number] Attending Clinician Unavailable GAYATRI DEE Attending Clinician Nate galeas [email or web address]_Kaodessa_S Attending Clinician UnavailFaith Fonseca MD Attending Clinician [phone] FAITH MICHEL Attending Clinician Unavailjazmine e Pob, 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 Attending Clinician UnavailMarciano Cruz MD Attending Clinician [phone] MARCIANO ELLIOTT Attending Clinician Unavailjazmine e Doctor Unassigned, [place] Attending Clinician U Rissa Newton Attending Clinician UnavailGrzegorz Ortega MD Attending Clinician [phone] GRZEGORZ HAYNES Attending Clinician Unavailabl e RADIOLOGY Attending Clinician Unavailable ODESSA ROBERTO Attending Clinician Unavailable BENSON CASTRO Attending Clinician Unavail able BENSON CASTRO Attending Clinician Unavail able Benson Castro MD Attending Clinician [phone] Radiology Attending Clinician Unavailable Stephen Ojeda Rahil Attending Clinician Unavail able Danya Singh MD Attending Clinician [phone] DANYA SINGH Attending Clinician Unavailable Teddy MONROE Sarah Attending Clinician Unava Gayatri Brown MD Attending Clinician + [phone] Only, Adc Test Attending Clinician Unavailable Mali Carter Attending Clinician [phone] EMMANUELLE SCHULTE Attending Clinician UnavailLatricia Kline DO Attending Clinician [phone] Latasha Fernandez MD Attending Clinician + [phone] LATASHA FERNANDEZ Attending Clinician Unavaila LATASHA Gupta Attending Clinician Unavaila irina Johnson Attending Clinician Unavailable [facility] Sleep Lab Attending Clinician Unavaila Jose Raul Dee DO Attending Clinician [phone], [facility] Attending Clinician Unavailable JAN VALENTINE Attending Clinician Unavailable Jan Valentine MD Attending Clinician [phone] Yazmin Garber RN Attending Clinician [phone] SUSANNAH WANG Attending Clinician Unavailable Sb Escobar MD Attending Clinician [phone] Susannah Wnag MD Attending Clinician [phone] SB ESCOBAR Attending Clinician Unavailable SIVA ALVAREZ Attending Clinician Unavailable Kim GERMAN Siva S Attending Clinician [phone] Admitting Clinician Unavailable GAYATRI DEE Admitting Clinician Unajavi galeas GC_GCBZW_Kadiyala_S Admitting Clinician UnavailJeet March Admitting Clinician Unavailable FAITH MICHEL Admitting Clinician UnavailJEET Hernandez Admitting Clinician Unavailab Stephen aDi Rahil Admitting Clinician Unavail able Gayatri Dee MD Admitting Clinician [phone] BENSON CASTRO Admitting Clinician Unavail able Alex Admitting Clinician Unavailable SUSANNAH WANG Admitting Clinician Unavailable Susannah Wang MD Admitting Clinician JUDE EUCEDA Admitting Clinician Unavaila ble Payers Payer Name Policy Type Policy Number Effective Date Expirati on Date Source [place] OF [place] [id number] 2007 00:00:00 BCBS [place] [id number] [place] OUT OF [place] [id number] 2018 00:00:00 BCBS[place]: (PPO) [id number] 2019 00:00:00 2021 00:00:00 Problems Condition Name Condition Details Condition Category Status Onset Date Resolution Date Last Treatment Date Treating Clinician Comments Source Nonrheumat ic mitral valve regurgitat ion Nonrheumat ic mitral valve regurgitat ion Disease Active 09-18 00:00: [address] [facility] Coronary artery disease involving napaimute coronary artery without angina pectoris Coronary artery disease involving napaimute coronary artery without angina pectoris Disease Active 09-18 00:00: [address] [facility] Presence of drug-eluti ng stent in anterior descending branch of left coronary artery Presence of drug-eluti ng stent in anterior descending branch of left coronary artery Disease Active 09-18 00:00: [address] [facility] Chronic systolic heart failure Chronic systolic heart failure Disease Active 09-18 00:00: [address] [facility] Congestive heart failure, NYHA class 3 and ACC/AHA stage C Congestive heart failure, NYHA class 3 and ACC/AHA stage C Disease Active 09-18 00:00: [address] [facility] GADIEL (obstructi ve sleep apnea) GADIEL (obstructi ve sleep apnea) Disease Active 9-21 00:00: 00 Jesusita cazares [facility] Obesity Obesity Problem Active 5-06 00:00: 00 [facility] Irritable bowel syndrome Irritable Bowel Syndrome Problem Active 4-22 00:00: 00 [facility] Low blood pressure Low Blood Pressure Problem Active 08-22 00:00: 00 [facility] Dizziness and giddiness Dizziness and Giddiness Problem Active 08-22 00:00: 00 [facility] Essential hypertensi on Essential Hypertensi on Problem Active 07-25 00:00: 00 [facility] Gastropare sis syndrome Gastropare sis Syndrome Problem Active 07-25 00:00: 00 [facility] Proteinuri a Proteinuri a Problem Active 07-25 00:00: 00 [facility] Hypertensi ve disorder Hypertensi ve Disorder Problem Active 07-25 00:00: 00 [facility] Localized edema Localized Edema Problem Active 07-25 00:00: 00 [facility] Hypoxia Hypoxia Disease Active 06-03 00:00: 00 [facility] Acute diastolic congestive heart failure Acute diastolic congestive heart failure Disease Active 06-03 00:00: 00 [facility] Pneumonia due to infectious organism Pneumonia due to infectious organism Disease Active 06-03 00:00: 00 [facility] HTN (hypertens ion) HTN (hypertens ion) Disease Active 06-03 00:00: 00 [facility] Urinary tract infectious disease Urinary Tract Infectious Disease Problem Active 2018-03 002 00:00: 00 [facility] Hyperlipid emia Hyperlipid emia Problem Active 10-15 00:00: 00 [facility] Elevated levels of transamina se & lactic acid dehydrogen ase Elevated Levels of Transamina se & Lactic Acid Dehydrogen ase Problem Active 10-15 00:00: 00 [facility] Finding of urine substance level Finding of Urine Substance Level Problem Active 10-15 00:00: 00 [facility] Hypothyroi dism Hypothyroi dism Problem Active 09-12 00:00: 00 [facility] 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 Due to Type 2 Diabetes Mellitus Problem Active 09-12 00:00: 00 [facility] Family history of diabetes mellitus Family History of Diabetes Mellitus Problem Active 09-12 00:00: 00 [facility] Screening for disorder Screening for Disorder Problem Active 09-12 00:00: 00 [facility] Tinea pedis Tinea Pedis Problem Active 09-12 00:00: 00 [facility] Type 2 diabetes mellitus Type 2 diabetes mellitus Disease Active 07-17 00:00: 00 [facility] Hyperlipid emia Hyperlipid emia Disease Active 07-17 00:00: 00 [facility] Nephrolith iasis Nephrolith iasis Disease Active 07-17 00:00: 00 [facility] Allergies, Adverse Reactions, Alerts Allergy Name Allergy Type Status Severity Reaction(s) Onset Date Inactive Date Treating Clinician Comments Source Sulfamet hoxazole -Trimeth oprim Allergy to substanc e Active 09-18 00:00: [address] [facility] AMLODIPI NE DRUG INGREDI Active Swelling 2020-03 2- 00:00: 00 [facility] Amlodipi ne Propensi ty to adverse reaction s Active Swelling 2020-03 2-20 00:00: 00 [facility] Sulfamet hoxazole Propensi ty to adverse reaction s Active Swelling - 00:00: 00 [facility] Trimetho prim Propensi ty to adverse reaction s Active Swelling - 00:00: 00 [facility] TRIMETHO PRIM DRUG INGREDI Active Swelling 0 9-07 00:00: 00 [facility] SULFAMET HOXAZOLE DRUG INGREDI Active Low Swelling 9-07 00:00: 00 [facility] Lisinopr il Propensi ty to adverse reaction s Active Cough 2020-0 5-10 00:00: 00 [facility] LISINOPR IL DRUG INGREDI Active COUGH 0 5-10 00:00: 00 [facility] No Known Allergie s DA Active U 18 00:00: 00 [facility] No Known Allergie s DA Active U 18 00:00: 00 [facility] Tramadol Allergy to substanc e Active Itching 08-10 00:00: 00 Other reaction( s): Hives/Davie h [facility] Tramadol Propensi ty to adverse reaction s Active Itching 08-10 00:00: 00 [facility] TRAMADOL DRUG INGREDI Active ITCHING 08-10 00:00: 00 [facility] Metformi n Allergy to substanc e Active Diarrhea [facility] Ramipril Allergy to substanc e Active Rash [facility] Social History Social Habit Start Date Stop Date Quantity Comments Source History of tobacco use Current smoker [facility] to SARS-CoV-2 (event) 2022-05-04 00:00:00 2022-05-14 16:23:00 Not sure [facility] History of Social function 2020-11-12 00:00:00 2020-11-12 00:00:00 [facility] Tobacco Comment 2020-11-11 00:00:00 2020-11-11 00:00:00 quit 30 yrs ago [facility] Alcohol intake 2020-06-13 00:00:00 2020-06-13 00:00:00 .48 /d [facility] Tobacco use and exposure 2010-07-10 00:00:00 2010-07-10 00:00:00 Smokeless tobacco non-user [facility] Sex Assigned At 1970 00:00:00 1970 00:00:[address] [facility] Smoking Status Start Date Stop Date Source Tobacco smoking consumption unknown [facility] Ex-smoker 2020-11-11 00:00:00 2020-11-11 00:00:00 [facility] Never smoked tobacco [facility] Medications Ordered Medication Name Filled Medication Name Start Date Stop Date Current Medication? Ordering Clinician Indication Dosage Frequency Signature (SIG) Comments Components Source barium sulfate (LIQUID E-Z PAQUE) 60 % (w/v) oral suspension 340 g 09-03 14:00: 00 09-03 17:31 :00 No [id number] 340g 340 g, Oral, ONCE, 1 dose, On Tue09/03/22 at 0900, Routine [facility] iopamidol (ISOVUE 370-500 mL) injection 60 mL 04-02 20:35: 00 04-02 20:46 :00 No [id number] 60mL 60 mL, Intravenou s, ONCE, 1 dose, On Tue04/02/22 at 1445, Routine [facility] topiramate 100 mg tablet 2021-03 00:00: 00 Yes [id number] 100mg Take 1 tablet by mouth in the morning and 1 tablet in the evening. [facility] SUMAtriptan 50 mg tablet 2021-03 00:00: 00 02-24 05:59 :00 No [id number] 50mg Take 1 tablet by mouth once now for 1 dose. [facility] topiramate 50 mg tablet 2021-03 00:00: 00 02-23 00:00 :00 No [id number] 50mg Take 1 tablet by mouth in the morning and 1 tablet in the evening. [facility] cholecalcif kassidy (Vitamin D-3) 25 MCG (1000 UT) capsule 09-18 13:29: 29 Yes Take by mouth. [facility] linaGLIPtin (Tradjenta) 5 MG tablet 09-18 13:29: 29 Yes Tradjenta 5 mg tablet TAKE 1 TABLET BY MOUTH ONCE DAILY IN THE MORNING [facility] Entresto 24-26 MG tablet 09-16 00:00: 00 Yes Q.5D Take by mouth 2 (two) times a day. [facility] torsemide (Demadex) 20 MG tablet 09-06 00:00: 00 Yes 80mg QD Take 80 mg by mouth 1 (one) time each day. TAKE 4 TABLETS BY MOUTH ONCE DAILY [facility] [employer] Thyroid 60 MG tablet 08-14 00:00: 00 Yes 60mg QD Take 60 mg by mouth 1 (one) time each day. on an empty stomach [facility] carvedilol (Coreg) 6.25 MG tablet 07-24 00:00: 00 Yes 6.25mg Q.5D Take 6.25 mg by mouth in the morning and 6.25 mg before bedtime. [facility] topiramate (Topamax) 25 MG tablet 2022-0 5-20 00:00: 00 Yes 25mg Take 25 mg by mouth if needed. [facility] atorvastati n (Lipitor) 40 MG tablet 07-07 00:00: 00 Yes 40mg Take 40 mg by mouth every night. [facility] EQ Aspirin Adult Low Dose 81 MG EC tablet 07-07 00:00: 00 Yes 81mg QD Take 81 mg by mouth 1 (one) time each day. [facility] clopidogrel (Plavix) 75 MG tablet 07-07 00:00: 00 Yes 75mg QD Take 75 mg by mouth 1 (one) time each day. [facility] Farxiga 10 MG 04-25 00:00: 00 Yes 10mg QD Take 10 mg by mouth 1 (one) time each day. [facility] cloniDINE 0.1 mg/24 hr patch 2020-03 00:00: 00 Yes [id number] 1{patch } Apply 1 Patch to skin weekly. [facility] carvediloL 12.5 mg tablet 2020-03 15:47: 03 Yes 12.5mg Take 12.5 mg by mouth 2 (two) times daily with meals. [facility] insulin aspart (NOVOLOG FLEXPEN U-100 INSULIN SC) 2020-03 11:25: 42 Yes inject under the skin. Per SS [facility] aspirin 81 mg chewable tablet 2020-03 11:25: 42 Yes 81mg Take 81 mg by mouth daily. [facility] dapaglifloz in (FARXIGA) 5 mg tablet 2020-03 11:25: 42 Yes Take by mouth daily. [facility] linaGLIPtin (TRADJENTA) 5 mg tablet 2020-03 11:25: 42 Yes Take by mouth daily. [facility] TURMERIC ORAL 2020-03 11:25: 42 Yes 500mg Take 500 mg by mouth 2 (two) times daily. [facility] Cholecalcif kassidy, Vitamin D3, (VITAMIN D3) 25 mcg (1,000 unit) capsule 2020-03 11:25: 42 Yes Take by mouth daily. [facility] bumetanide 1 mg tablet 2020-03 11:25: 42 Yes 1mg 1 mg at bedtime. [facility] ergocalcife rol, vitamin d2, (VITAMIN D2) 1,250 mcg (50,000 unit) capsule 2020-03 11:25: 42 Yes [id number] Take 50,000 Units by mouth weekly. [facility] nystatin 100,000 unit/mL suspension 2020-03 11:25: 42 Yes Take by mouth 4 (four) times daily. [facility] amLODIPine 10 mg tablet 2020-03 00:00: 00 02-12 00:00 :00 No [id number] 10mg Take 1 tablet by mouth daily. [facility] topiramate 25 mg tablet 2020-03 00:00: 00 01-18 00:00 :00 No [id number] 25mg Take 1 tablet by mouth 2 (two) times daily. [facility] spironolact one 25 mg tablet 11-25 00:00: 00 Yes [id number] 02 25mg Take 1 tablet by mouth daily. [facility] thyroid (ARMOUR THYROID) 30 mg tablet 11-25 00:00: 00 Yes [id number] 15mg Take 0.5 tablets by mouth every morning. [facility] gabapentin 100 mg capsule 05-23 00:00: 00 Yes [id number] 100mg Take 1 capsule by mouth 3 (three) times daily. [facility] flash glucose scanning reader (FREESTYLE YASH 14 DAY READER) [employer] [facility] [employer] 06-04 00:00: 00 Yes [id number] 1{appli catorfu l} 1 Applicator ful 4 (four) times daily. Check glucose QID as directed [facility] flash glucose sensor (FREESTYLE YASH 14 DAY SENSOR) Kit 06-04 00:00: 00 Yes [id number] 1{appli cator} 1 Applicator 4 (four) times daily. [facility] Adult Aspirin Regimen 81 mg [...] Family Practic e FreeStyle Yash 14 Day Swiss FreeStyle Yash 14 Day Swiss No FreeStyle Yash 14 Day Swiss [facility] FreeStyle Yash 14 Day Sensor FreeStyle Yash 14 Day Sensor No FreeStyle Yash 14 Day Sensor [facility] FreeStyle Yash 14 Day Sensor kit USE DAILY BUT CHANGE EVERY 14 DAYS FreeStyle Yash 14 Day Sensor kit USE DAILY BUT CHANGE EVERY 14 DAYS No FreeStyle Yash 14 Day Sensor kit USE DAILY BUT CHANGE EVERY 14 DAYS [facility] [employer] Thyroid 30 mg tablet TAKE 1 TABLET BY MOUTH ONCE DAILY FOR 30 DAYS [employer] Thyroid 30 mg tablet TAKE 1 TABLET BY MOUTH ONCE DAILY FOR 30 DAYS No [employer] Thyroid 30 mg tablet TAKE 1 TABLET BY MOUTH ONCE DAILY FOR 30 DAYS [facility] OneTouch Verio test strips OneTouch Verio test strips No OneTouch Verio test strips [facility] Ozempic 0.25 mg [...] Vitamin D2 Vitamin D2 No Vitamin D2 [facility] Vitamin D3 1000 IU DAILY Vitamin D3 1000 IU DAILY No Vitamin D3 1000 IU DAILY [facility] Vital Signs Vital Name Observation Time Observation Value Comments S ource Systolic blood pressure 2022-02-23 20:45:00 105 mm[Hg] [facility] Diastolic blood pressure 2022-02-23 20:45:00 74 mm[Hg] [facility] Heart rate 2022-02-23 20:45:00 77 /min [facility] Body height 2022-02-23 20:45:00 157.5 cm [facility] Body weight 2022-02-23 20:45:00 48.081 kg [facility] BMI 2022-02-23 20:45:00 19.39 kg/m2 [facility] Oxygen saturation in Arterial blood by Pulse oximetry 2022-02-23 20:45:00 99 /min [facility] Systolic blood pressure 2022-01-18 22:23:00 149 mm[Hg] [facility] Diastolic blood pressure 2022-01-18 22:23:00 84 mm[Hg] [facility] Heart rate 2022-01-18 22:23:00 68 /min Un[facility] Body weight 2022-01-18 22:23:00 50.803 kg [facility] BMI 2022-01-18 22:23:00 20.49 kg/m2 [facility] Oxygen saturation in Arterial blood by Pulse oximetry 2022-01-18 22:23:00 94 /min [facility] Systolic blood pressure 2021-09-18 18:29:00 [...] Family Practice Height 2020-07-10 00:00:00 62 [in_i] [facility] BMI (Body Mass Index) 2020-07-10 00:00:00 33.5 kg/m2 [facility] Practice BP Systolic 2020-07-10 00:00:00 137 mm[Hg] [facility] Family Practice Body Weight 2020-07-10 00:00:00 183 [lb_av] [facility] BP Diastolic 2020-02-07 00:00:00 78 mm[Hg] [facility] Practice Height 2020-02-07 00:00:00 62 [in_i] [facility] Practice BMI (Body Mass Index) 2020-02-07 00:00:00 33 kg/m2 [facility] BP Systolic 2020-02-07 00:00:00 122 mm[Hg] [facility] Body Weight 2020-02-07 00:00:00 180.2 [lb_av] [facility] BP Diastolic 2019-12-24 00:00:00 78 mm[Hg] [facility] Practice Height 2019-12-24 00:00:00 62 [in_i] [facility] Practice BMI (Body Mass Index) 2019-12-24 00:00:00 31.5 kg/m2 [facility] BP Systolic 2019-12-24 00:00:00 110 mm[Hg] [facility] Practice Body Weight 2019-12-24 00:00:00 172 [lb_av] [facility] Procedures Procedure Date / Time Performed Performing Clinician Source CONSENT/REFUSAL FOR DIAGNOSIS AND TREATMENT 2022-06-23 20:02:57 Doctor Unassigned, [place] [facility] PHYSICIAN ORDERS 2022-05-14 06:01:00 Doctor Unas signed, [place] [facility] HB CREATININE SERUM/BLOOD FOR IMAGING 2022-04-02 21:10:00 Faith Michel [facility] CT ABDOMEN PELVIS W CONTRAST 2022-04-02 20:43:00 Faith Michel [facility] CBC WITH DIFF 2022-03-29 22:37:00 [facility] 2022-03-29 22:23:51 Doctor Unassigned, [place] [facility] ECG 12-LEAD 2021-09-18 21:45:54 Chalo Christianson [facility] CONSENT/REFUSAL FOR DIAGNOSIS AND TREATMENT 2021-06-23 18:30:15 Doctor Unassigned, [place] [facility] ASSIGNMENT OF BENEFITS 2021-06-23 18:30:01 Doctor Unassigned, [place] [facility] [id number] 2021-04-21 00:00:00 [facility] [place] Plan of Care Planned Activity Planned Date Details Comments Source Diagnostic Test Pending 2020-07-10 00:00:00 glucose, fingerstick, blood [code = glucose, fingerstick, blood] [facility] Diagnostic Test Pending 2020-07-10 00:00:00 hemoglobin A1C, fingerstick [code = hemoglobin A1C, fingerstick] [facility] Encounters Start Date/Time End Date/Time Encounter Type Admission Type Attending Clinicians Care Facility Care Department Encounter ID Source 2022-07-15 12:08:12 Outpatient [facility] [id number] [facility] 2022-07-14 13:01:54 Outpatient [facility] [id number] [facility] 2022-04-05 13:49:37 Outpatient [facility] [id number] [facility] 2021-09-22 17:34:30 Outpatient [facility] [id number] [facility] 2021-09-18 13:11:20 Outpatient CHALO CHRISTIANSON [facility] [id number] [facility] 2021-09-17 13:49:24 Outpatient [facility] [id number] [facility] 2021-09-16 14:24:43 Outpatient CHALO CHRISTIANSON [facility] [id number] [facility] 2021-04-02 13:46:27 Outpatient [id number] [id number] [id number] [facility] 2021-04-02 13:45:28 Outpatient [id number] [facility] PUL [id number] [facility] 2021-04-02 13:44:46 Outpatient [id number] [facility] PUL [id number] [facility] [place] 2021-04-02 13:43:23 Outpatient [id number] [facility] REF [id number] [facility] [place] 2021-01-05 19:43:30 Outpatient R GAYATRI LOBO [facility] [id number] [facility] 2021-01-05 13:14:53 Emergency [facility] [id number] [facility] 2023-01-05 17:18:55 2023-01-05 17:18:55 Outpatient [facility] [id number] Jude Pulliam 2022-12-31 00:00:00 2022-12-31 00:00:00 Outpatient GC_GCBZW_Ka diyala_S PRIV PRIV [id number] [facility] 2022-10-19 14:14:12 2022-10-19 14:14:12 Outpatient [facility] [id number] Jude Pulliam 2022-09-03 09:35:23 2022-09-03 23:59:00 Hospital Encounter Faith Michel [facility] [id number] [facility] 2022-09-03 08:49:31 2022-09-03 09:34:00 Hospital Encounter Marilu [facility] [id number] [facility] 2022-09-03 00:00:00 2022-09-03 09:34:00 Outpatient R MARILU FAITH [facility] [id number] [facility] 2022-08-24 16:45:00 2022-08-24 17:00:00 Title 1 Tutor Visit Pob, 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 Marciano Elliott [facility] [id number] [facility] 2022-08-24 16:45:00 2022-08-24 16:45:00 Outpatient MARCIANO NIXON [facility] [id number] [facility] 2022-06-25 00:00:00 2022-06-25 00:00:00 Outpatient Sagar FAITH MICHEL [facility] [id number] [facility] [facility] 2022-06-23 15:15:00 2022-06-23 15:30:00 Title 1 Tutor Visit Pob, 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 Marciano Elliott [facility] 1.2.840.114 350.1.13.10 4.2.7.2.686 [id number] [facility] 2022-06-23 15:15:00 2022-06-23 15:15:00 Outpatient Sagar ELLIOTT [facility] [id number] [facility] 2022-06-23 00:00:00 2022-06-23 00:00:00 Orders Only Doctor Unassigned, [place] [facility] 1..840.114 350.1.13.10 4.2.7.2.686 [id number] [facility] 2022-06-17 21:22:00 2022-06-17 21:22:00 Outpatient Rissa Lange [facility] [id number] [facility] 2022-05-14 16:30:00 2022-05-14 16:45:00 Title 1 Tutor Visit Pob, 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 Grzegorz Haynes [facility] 1..840.114 350.1.13.10 4.2.7.2.686 [id number] [facility] 2022-05-14 16:30:00 2022-05-14 16:30:00 Outpatient GRZEGORZ GRANDE [facility] [id number] [facility] 2022-05-14 00:00:00 2022-05-14 00:00:00 Orders Only Doctor Unassigned, [place] [facility] 1.840.114 350.1.13.10 4.2.7.2.686 [id number] [facility] 2022-04-12 14:30:00 2022-04-12 14:45:00 Title 1 Tutor Visit Pob, 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 Grzegorz Haynes [facility] BU[facility] 1..114 350.1.13.10 4.2.7.2.686 [id number] [facility] 2022-04-12 14:30:00 2022-04-12 14:30:00 Outpatient R GRZEGORZ HAYNES [facility] [id number] [facility] 2022-04-12 00:00:00 2022-04-12 00:00:00 Outpatient R RADIOLOGY [facility] [id number] [facility] 2022-04-05 13:25:00 2022-04-05 13:25:00 Outpatient R RADIOLOGY [facility] [id number] [facility] 2022-04-02 13:33:26 2022-04-02 23:59:00 Outpatient R MARILU FAITH [facility] [id number] [facility] 2022-04-02 13:33:26 2022-04-02 23:59:00 Hospital Encounter Marilu Faith [facility] 1..114 350.1.13.10 4.2.7.2.686 [id number] [facility] 2022-03-29 16:30:00 2022-03-29 16:45:00 Title 1 Tutor Visit Pob, 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 Marilu [facility] BUILDING 1.84.114 350.1.13.10 4.2.7.2.686 [id number] [facility] 2022-03-29 16:30:00 2022-03-29 16:30:00 Outpatient R MICHELFAITH [facility] [id number] [facility] 2022-03-29 00:00:00 2022-03-29 00:00:00 Orders Only Doctor Unassigned, [place] [facility] 1..840.114 350.1.13.10 4.2.7.2.686 [id number] [facility] 2022-03-26 13:30:00 2022-03-26 13:30:00 Outpatient R BELEM ROBERTOSSICA [facility] [id number] [facility] 2022-02-23 14:30:00 2022-02-23 15:08:25 Outpatient BELEM ALBARRANSSICA [facility] [id number] [facility] 2022-02-23 14:30:00 2022-02-23 15:08:25 Office Visit Belem Robertossica [facility] 1.2.840.114 350.1.13.10 4.2.7.2.686 [id number] [facility] 2022-02-15 00:00:00 2022-02-15 00:00:00 Patient Secure Msg Doctor Unassigned, [place] [facility] 1.2.840.114 350.1.13.10 4.2.7.2.686 [id number] [facility] 2022-01-18 16:30:00 2022-01-18 16:38:58 Outpatient BENSON CASEY HOWARD [facility] [id number] [facility] 2022-01-18 16:30:00 2022-01-18 16:38:58 Office Visit Odessa Roberto Howard Gene [facility] 1.2840.114 350.1.13.10 4.2.7.2.686 [id number] [facility] 2021-12-11 00:00:00 2021-12-11 00:00:00 Benson Roberson [facility] 1.2840.114 350.1.13.10 4.2.7.2.686 [id number] [facility] 2021-11-30 15:57:43 2021-11-30 23:59:00 Outpatient R RADIOLOGY [facility] [id number] [facility] 2021-11-30 15:57:43 2021-11-30 23:59:00 Hospital Encounter Radiology [facility] 1.20.114 350.1.13.10 4.2.7.2.686 [id number] [facility] 2021-09-18 13:40:00 2021-09-18 14:48:02 Office Visit Chalo Christianson [facility] [address] 1.2840.114 350.1.13.58 9.2.7.2.[id number] [facility] 2021-06-23 13:45:00 2021-06-23 14:00:00 Title 1 Tutor Visit Pob, 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 Grzegorz Haynes [facility] PROFESSIO NAL BUILDING 1.2840.114 350.1.13.10 4.2.7.2.686 [id number] [facility] 2021-06-23 13:45:00 2021-06-23 13:45:00 Outpatient R GRZEGORZ HAYNES [facility] [id number] [facility] 2021-06-23 00:00:00 2021-06-23 00:00:00 Orders Only Doctor Unassigned, [place] [facility] 1.2840.114 350.1.13.10 4.2.7.2.686 [id number] [facility] 2021-04-06 20:57:00 2021-04-25 12:25:00 Inpatient 3 Stephen Ojeda ENCPL PUL [id number] [facility] Pearyolanda d 2021-02-23 00:00:00 2021-02-23 00:00:00 [facility] 1.2.840.114 350.1.13.10 4.2.7.2.686 [id number] [facility] 2021-02-09 00:00:00 2021-02-09 00:00:00 Telephone [facility] 1.2.840.114 350.1.13.10 4.2.7.2.686 [id number] [id number] [facility] 2021-01-26 11:23:08 2021-01-26 11:43:42 Office Visit [facility] 1.2.840.114 350.1.13.10 4.2.7.2.686 [id number] [facility] 2021-01-26 11:20:00 2021-01-26 11:43:42 [facility] [id number] [facility] 2021-01-26 11:20:00 2021-01-26 11:43:42 [facility] [id number] [facility] 2021-01-26 11:20:00 2021-01-26 11:20:00 [facility] [id number] [facility] 2021-01-22 07:50:27 2021-01-22 08:43:54 Title 1 Tutor Visit Pob, 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 Marciano Elliott [facility] 1.2.840.114 350.1.13.10 4.2.7.2.686 [id number] [facility] 2021-01-22 07:45:00 2021-01-22 08:43:54 Outpatient R MARCIANO ELLIOTT [facility] [id number] [facility] 2021-01-22 07:45:00 2021-01-22 07:45:00 Outpatient R EARL MASSAPEQUA PARKSANDIP [facility] [id number] [facility] 2020-12-25 00:00:00 2020-12-25 00:00:00 Benson Roberson [facility] 1.2.840.114 350.1.13.10 4.2.7.2.686 [id number] [facility] 2020-12-23 00:00:00 2020-12-23 00:00:00 Telephone Sarah Espinal [facility] 1.2.840.114 350.1.13.10 4.2.7.2.686 [id number] [facility] 2020-12-23 00:00:00 2020-12-23 00:00:00 Patient Secure Msg Doctor Unassigned, [place] [facility] 1.2.840.114 350.1.13.10 4.2.7.2.686 [id number] [facility] 2020-12-17 07:54:57 2020-12-17 23:59:00 Hospital Encounter Radiology [facility] 1.2.840.114 350.1.13.10 4.2.7.2.686 [id number] [facility] 2020-12-17 00:00:00 2020-12-17 00:00:00 Outpatient R RADIOLOGY [facility] [id number] [facility] 2020-11-25 13:48:41 2020-11-25 14:12:26 [facility] 1.2.840.114 350.1.13.10 4.2.7.2.686 [id number] [facility] 2020-11-25 13:40:00 2020-11-25 13:40:00 [facility] [id number] [facility] 2020-11-14 00:00:00 2020-11-14 00:00:00 [facility] 1.2.840.114 350.1.13.10 4.2.7.2.686 [id number] [facility] 2020-11-14 00:00:00 2020-11-14 00:00:00 [facility] 1.2.840.114 350.1.13.10 4.2.7.2.686 [id number] 059 [id number] [facility] 2020-11-12 12:08:00 2020-11-12 12:43:00 Surgery Gayatri Lobo [facility] 1.2.840.114 350.1.13.10 4.2.7.2.686 [id number] [facility] 2020-11-12 12:08:00 2020-11-12 12:43:00 Surgery Gayatri Lobo [facility] 1.2.840.114 350.1.13.10 4.2.7.2.686 [id number] [facility] 2020-11-12 10:46:00 2020-11-12 12:35:00 Hospital Encounter Gayatri Lobo [facility] [place] 1.2.840.114 350.1.13.10 4.2.7.2.686 [id number] [facility] 2020-11-12 10:46:00 2020-11-12 12:35:00 Hospital Encounter Gayatri Lobo [facility] [place] 1.2.840.114 350.1.13.10 4.2.7.2.686 [id number] [facility] 2020-11-11 08:12:07 2020-11-11 08:27:07 Laboratory Only Only, Adc Test [facility] 1.2.840.114 350.1.13.10 4.2.7.2.686 [id number] [facility] 2020-11-11 08:12:07 2020-11-11 08:27:07 Laboratory Only Only, Adc Test [facility] 1.2.840.114 350.1.13.10 4.2.7.2.686 [id number] [facility] 2020-11-11 08:15:00 2020-11-11 08:15:00 Outpatient R [facility] [id number] [facility] 2020-10-24 00:00:00 2020-10-24 00:00:00 Orders Only Doctor Unassigned, [place] [facility] 1.2.840.114 350.1.13.10 4.2.7.2.686 [id number] [facility] 2020-10-08 18:34:00 2020-10-08 22:22:00 Emergency Mali Rosado [facility] 1.2.840.114 350.1.13.10 4.2.7.2.686 [id number] [facility] 2020-10-07 00:00:00 2020-10-07 00:00:00 Telephone Benson Castro [facility] Professio nal Building 1..840.114 350.1.13.10 4.2.7.2.686 [id number] [facility] 2020-10-03 00:00:00 2020-10-03 00:00:00 Patient Secure Danya Bob [facility] PROFESSIO [facility] BUILDING 1..840.114 350.1.13.10 4.2.7.2.686 [id number] [facility] 2020-10-01 10:00:00 2020-10-01 10:00:00 Outpatient R EMMANUELLE SCHULTE [facility] [id number] [facility] 2020-10-01 00:00:00 2020-10-01 00:00:00 Orders Only Doctor Unassigned, [place] [facility] 1.840.114 350.1.13.10 4.2.7.2.686 [id number] [facility] 2020-09-26 08:11:48 2020-09-26 08:26:48 Laboratory Only Only, Adc Test Latricia Montana [facility] 1..840.114 350.1.13.10 4.2.7.2.686 [id number] [facility] 2020-09-26 08:00:00 2020-09-26 08:00:00 Outpatient R [facility] [id number] [facility] 2020-09-23 11:10:57 2020-09-23 11:46:21 Office Visit Benson Castro [facility] Professio replaced by [facility] Building 1..840.114 350.1.13.10 4.2.7.2.686 [id number] [facility] 2020-09-23 11:10:57 2020-09-23 11:46:21 Office Visit Benson Castro Keith [facility] Building 1.2.840.114 350.1.13.10 4.2.7.2.686 [id number] 2020-09-23 11:00:00 2020-09-23 11:00:00 Outpatient Sagar FITZGERALDMATTHEWBENSON PAREDES MATTHEWBENSON PAREDES [facility] [id number] [facility] 2020-09-17 00:00:00 2020-09-17 00:00:00 Orders Only Doctor Unassigned, [place] [facility] 1..840.114 350.1.13.10 4.2.7.2.686 [id number] [facility] 2020-08-27 11:24:21 2020-08-27 11:54:21 Office Visit Latasha Fernandez [facility] 1.2.840.114 350.1.13.10 4.2.7.2.686 [id number] [facility] 2020-08-27 11:30:00 2020-08-27 11:30:00 Outpatient LATASHA MAZARIEGOS STRAVTTashia [facility] [id number] [facility] 2020-08-27 00:00:00 2020-08-27 00:00:00 Telephone Danya Singh [facility] 1.2.840.114 350.1.13.10 4.2.7.2.686 [id number] [facility] 2020-08-25 14:02:06 2020-08-25 14:32:42 Office Visit Danya Singh [facility] 1.2.840.114 350.1.13.10 4.2.7.2.686 [id number] [facility] 2020-08-25 14:00:00 2020-08-25 14:00:00 Outpatient DANYA CONTI [facility] [id number] [facility] 2020-08-25 00:00:00 2020-08-25 00:00:00 Orders Only Doctor Unassigned, [place] [facility] 1.2.840.114 350.1.13.10 4.2.7.2.686 [id number] [facility] 2020-08-19 00:00:00 2020-08-19 00:00:00 Telephone MatthewBenson nix [facility] 1..840.114 350.1.13.10 4.2.7.2.686 [id number] [facility] 2020-08-13 14:00:00 2020-08-13 14:00:00 Outpatient LATASHA MAZARIEGOS STRAHIL [facility] [id number] [facility] 2020-07-31 15:26:34 2020-07-31 23:59:00 Hospital Encounter Matthew Benson Keith [facility] 1..840.114 350.1.13.10 4.2.7.2.686 [id number] [facility] 2020-07-31 15:26:34 2020-07-31 23:59:00 Outpatient BENSON CASEY HOWARD [facility] [id number] [facility] 2020-07-31 00:00:00 2020-07-31 00:00:00 Outpatient BENSON CASEY HOWARD [facility] [id number] [facility] 2020-07-30 00:00:00 2020-07-30 00:00:00 Telephone [facility]Benson [facility] 1..840.114 350.1.13.10 4.2.7.2.686 [id number] [facility] 2020-07-29 00:00:00 2020-07-29 00:00:00 Patient Secure Msg Singh [facility] BUILDING 1.2.840.114 350.1.13.10 4.2.7.2.686 [id number] [facility] 2020-07-28 08:21:39 2020-07-28 08:36:39 Title 1 Tutor Visit Pob, 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 [facility] 1.2.840.114 350.1.13.10 4.2.7.2.686 [id number] [facility] 2020-07-28 08:30:00 2020-07-28 08:30:00 Outpatient R FRANCISCO [facility] [id number] [facility] 2020-07-28 00:00:00 2020-07-28 00:00:00 Telephone Benson Castro [facility] 1.2.840.114 350.1.13.10 4.2.7.2.686 [id number] [facility] 2020-07-15 00:00:00 2020-07-15 00:00:00 Telephone Benson Castro [facility] 1.2.840.114 350.1.13.10 4.2.7.2.686 [id number] 092 [id number] [facility] 2020-07-14 14:38:23 2020-07-14 15:12:09 [facility] 1.2.840.114 350.1.13.10 4.2.7.2.686 [id number] [facility] 2020-07-14 14:40:00 2020-07-14 14:40:00 Outpatient R DANYA SINGH [facility] [id number] [facility] 2020-07-12 01:24:00 2020-07-12 01:24:00 Outpatient Daniel_T VFP VFP [id number] [facility] 2020-07-10 00:00:00 2020-07-10 00:00:00 Samm Alexander MD: [id number], [address], [place] [address] , Ph. Daniel_T VFP [place] - [facility] - _HOU_René [address] [place] [id number] [facility] 2020-07-01 12:13:16 2020-07-01 12:28:16 Title 1 Tutor Visit [facility] Sleep Lab Latasha Fernandez [facility] 1.84.114 350.1.13.10 4.2.7.2.686 [id number] [facility] 2020-07-01 12:00:00 2020-07-01 12:00:00 Outpatient R LATASHA FERNANDEZ STRAVTTashia [facility] [id number] [facility] 2020-06-27 11:33:44 2020-06-27 11:48:44 Laboratory Only Only, [facility] Test Grzegorz Haynes [facility] 1.84.114 350.1.13.10 4.2.7.2.686 [id number] [facility] 2020-06-27 10:30:00 2020-06-27 10:30:00 Outpatient R [facility] [id number] [facility] 2020-06-27 00:00:00 2020-06-27 00:00:00 Orders Only Doctor Unassigned, [place] [facility] 1.84.114 350.1.13.10 4.2.7.2.686 [id number] [facility] 2020-06-20 00:00:00 2020-06-20 00:00:00 [facility] 1.2.840.114 350.1.13.10 4.2.7.2.686 [id number] [facility] 2020-06-19 14:00:00 2020-06-19 14:00:00 [facility] [id number] 2020-06-15 00:00:00 2020-06-15 00:00:00 Patient Secure [facility] 1.2.840.114 350.1.13.10 4.2.7.2.686 [id number] [facility] 2020-06-13 10:48:23 2020-06-13 23:59:00 [facility] 1.2.840.114 350.1.13.10 4.2.7.2.686 [id number] [facility] 2020-06-13 10:47:50 2020-06-13 11:02:50 Title 1 Tutor Visit Pob, 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 [facility] 1.2.840.114 350.1.13.10 4.2.7.2.686 [id number] [facility] 2020-06-13 09:10:33 2020-06-13 10:22:02 [facility] 1.2.840.114 350.1.13.10 4.2.7.2.686 [id number] [facility] 2020-06-13 09:20:00 2020-06-13 09:20:00 [facility] [id number] [facility] 2020-06-09 00:00:00 2020-06-09 00:00:00 Telephone Matthew Benson Parker [facility] 1.2.840.114 350.1.13.10 4.2.7.2.686 [id number] [facility] 2020-06-04 00:00:00 2020-06-04 00:00:00 Outpatient BENSON CASEY HOWARD [facility] [id number] [facility] 2020-05-28 00:00:00 2020-05-28 00:00:00 Telephone Matthew Benson [facility] 1.2.840.114 350.1.13.10 4.2.7.2.686 [id number] [facility] 2020-05-27 00:00:00 2020-05-27 00:00:00 Patient Outreach Jose Raul Li [facility] 1.2.840.114 350.1.13.10 4.2.7.2.686 [id number] [facility] 2020-05-23 10:49:27 2020-05-23 11:04:27 Title 1 Tutor Visit 2, Adc Lab Matthew Benson [facility] 1.2.840.114 350.1.13.10 4.2.7.2.686 [id number] [facility] 2020-05-23 08:19:24 2020-05-23 10:59:14 Office Visit Benson Castro [facility] 1.2.840.114 350.1.13.10 4.2.7.2.686 [id number] [facility] 2020-05-23 08:40:00 2020-05-23 08:40:00 Outpatient BENSON CASEY HOWARD [facility] [id number] [facility] 2020-05-19 00:00:00 2020-05-19 00:00:00 Orders Only Doctor Unassigned, [place] [facility] 1..840.114 350.1.13.10 4.2.7.2.686 [id number] [facility] 2020-04-10 07:43:00 2020-04-10 07:43:00 Outpatient Daniel_T VFP VFP [id number] [facility] 2020-04-09 08:19:39 2020-04-09 08:34:39 Title 1 Tutor Visit Pob, 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 Marciano Elliott [facility] 1..840.114 350.1.13.10 4.2.7.2.686 [id number] [facility] 2020-04-09 08:15:00 2020-04-09 08:15:00 Outpatient MARCIANO NIXON [facility] [id number] [facility] 2020-04-09 00:00:00 2020-04-09 00:00:00 Orders Only Doctor Unassigned, [place] [facility] 1.2.840.114 350.1.13.10 4.2.7.2.686 [id number] [facility] 2020-03-14 03:25:00 2020-03-14 03:25:00 Outpatient Daniel_T VFP VFP [id number] [facility] 2020-03-01 01:02:00 2020-03-01 01:02:00 Outpatient Daniel_T VFP VFP [id number] [facility] 2020-02-11 07:53:00 2020-02-11 07:53:00 Outpatient Daniel_T VFP VFP [id number] [facility] 2020-02-07 00:00:00 2020-02-07 00:00:00 Samm Alexander MD: [id number] [facility] [address] [address] , Ph. Alex [facility] [place] - [facility] - VMRimma crawley [id number] [facility] 2020-01-08 08:00:00 2020-01-08 08:00:00 Outpatient MARCIANO NIXON [facility] [id number] [facility] 2020-01-08 07:39:55 2020-01-08 07:54:55 Title 1 Tutor Visit Pob, 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 [facility] 1.844.114 350.1.13.10 4.2.7.2.686 [id number] [facility] 2020-01-08 00:00:00 2020-01-08 00:00:00 Orders Only Doctor Unassigned, [place] [facility] [id number] 350.1.13.10 4.2.7.2.686 [id number] [facility] 2019-12-31 02:04:00 2019-12-31 02:04:00 Outpatient AlphonseCecelia [facility] [id number] [facility] 2019-12-24 00:00:00 2019-12-24 00:00:00 Samm Alexander MD: [id number] [address] , Ph. Alex [facility] [place] - [facility] - Rimma crawley [id number] [facility] 2019-12-18 07:41:51 2019-12-18 07:56:51 Title 1 Tutor Visit Pob, 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 [facility] 1.284.114 350.1.13.10 4.2.7.2.686 [id number] [facility] 2019-12-18 07:45:00 2019-12-18 07:45:00 Outpatient R MARCIANO ELLIOTT [facility] [id number] [facility] 2019-12-13 04:08:00 2019-12-13 04:08:00 Outpatient Daniel_T VFP VFP [id number] [facility] 2019-12-03 03:40:00 2019-12-03 03:40:00 Outpatient Daniel_T VFP VFP [id number] [facility] 2019-11-08 13:23:04 2019-11-08 13:38:04 Title 1 Tutor Visit Pob, 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 CtradhaMarciano reagan [facility] 1.840.114 350.1.13.10 4.2.7.2.686 [id number] [facility] 2019-11-08 13:15:00 2019-11-08 13:15:00 Outpatient R DAVISMARCIANO Reagan [facility] [id number] [facility] 2019-11-08 00:00:00 2019-11-08 00:00:00 Orders Only Doctor Unassigned, [place] [facility] 1.840.114 350.1.13.10 4.2.7.2.686 [id number] [facility] 2019-11-07 10:47:00 2019-11-07 10:47:00 Outpatient Daniel_T VFP VFP [id number] [facility] 2019-10-04 10:10:00 2019-10-04 23:59:00 Hospital Encounter LoboradhaMarciano reagan [facility] 1.840.114 350.1.13.10 4.2.7.2.686 [id number] [facility] 2019-10-04 10:15:33 2019-10-04 10:30:33 Title 1 Tutor Visit Pob, 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 Davisterrie Jorgesandip [facility] 1.840.114 350.1.13.10 4.2.7.2.686 [id number] [facility] 2019-10-04 00:00:00 2019-10-04 00:00:00 Outpatient MARCIANO NIXON [facility] [id number] [facility] 2019-08-23 16:12:00 2019-09-06 01:47:20 Inpatient HCAPM KEI [id number] [facility] 2019-08-23 16:16:00 2019-08-26 22:36:52 Inpatient HCAPM KEI [id number] [facility] 2019-08-03 10:30:00 2019-08-03 10:30:00 Outpatient R THOR JAN [facility] [id number] [facility] 2019-08-03 09:58:47 2019-08-03 10:13:47 Title 1 Tutor Visit Pob, Adc Lab Elfego Valentine Jan [facility] Gail Dillon [facility] 1..840.114 350.1.13.10 4.2.7.2.686 [id number] [facility] 2019-08-03 00:00:00 2019-08-03 00:00:00 Orders Only Doctor Unassigned, [facility] 1..840.114 350.1.13.10 4.2.7.2.686 [id number] [facility] 2019-06-06 00:00:00 2019-06-06 00:00:00 Transition of Care Yazmin Garber 1..840.114 350.1.13.10 4.2.7.2.686 [id number] [facility] 2019-06-03 20:41:23 2019-06-05 12:45:00 Inpatient X KATHLEEN SUSANNAH [facility] [id number] [facility] 2019-06-03 20:41:23 2019-06-05 12:45:00 Hospital Encounter Sb Escobar Adnan [facility] 1.2.840.114 350.1.13.10 4.2.7.2.686 [id number] [facility] 2019-06-03 20:41:23 2019-06-03 20:41:23 Emergency X SB ESCOBAR [facility] ERT [id number] [facility] 2019-04-27 02:15:54 2019-04-27 06:35:00 Emergency [facility] 1.2.840.114 350.1.13.10 4.2.7.2.686 [id number] [facility] 2019-04-26 22:52:50 2019-04-27 01:20:00 Emergency X SIVA ALVAREZ [facility] ERT [id number] [facility] 2019-04-26 22:52:50 2019-04-27 01:20:00 Emergency X SIVA ALVAREZ [facility] ERT [id number] [facility] 2019-04-26 22:52:50 2019-04-27 01:20:00 Emergency Siva Alvarez [facility] 1.2.840.114 350.1.13.10 4.2.7.2.686 [id number] [facility] Results Test Description Test Time Test Comments Results Result Co mments Source [facility] WITH [id number] 22:56:35* Test Item Value Reference Range Interpretation [...] g/dL 31.6-35.1 L RDW-SD (test code = 30936-4) 50.4 fL 39.0-49.9 H RDW-CV (test code = 788-0) 15.2 % 12.0-15.5 PLT (test code = 777-3) See_Comment [Automated messa ge] The system which generated this result transmitted reference range: 166 - 358 10*3/?L. The reference range was not used to interpret this result as normal/abnormal. MPV (test code = 57517-0) 10.0 fL 9.5-12.9 NRBC/100 WBC (test code = 1698942855) See_Comment [Automated Hoonto ssage] The system which generated this result transmitted reference range: 0.0 - 10.0 /100 WBCs. The reference range was not used to interpret this result as normal/abnormal. NRBC x10^3 (test code = 0115608866) See_Comment [Automated Outcome Referralsa ge] The system which generated this result transmitted reference range: 10*3/?L. The reference range was not used to interpret this result as normal/abnormal. GRAN MAT (NEUT) % (test code = 770-8) 73.0 % IMM GRAN % (test code = 2345491784) 0.30 % LYMPH % (test code = 736-9) 15.3 % MONO % (test code = 5905-5) 6.9 % EOS % (test code = 713-8) 3.9 % BASO % (test code = 706-2) 0.6 % GRAN MAT x10^3(ANC) (test code = 1016629811) 2.43 10*3/uL 1.88-7.09 IMM GRAN x10^3 (test code = 4612225877) 0.00-0.06 LYMPH x10^3 (test code = 731-0) 0.51 10*3/uL 1.32-3.29 L MONO x10^3 (test code = 742-7) 0.23 10*3/uL 0.33-0.92 L EOS x10^3 (test code = 711-2) 0.13 10*3/uL 0.03-0.39 BASO x10^3 (test code = 704-7) 0.01-0.07 Lab Interpretation (test code = 50826-5) [facility]normal [id number] 18:36:00* Test Item Value Reference Range Interpretation [...] Completed by Nursing: NODRUGS OF ABUSE SCREEN [id number] 18:36:00* Test Item Value Reference Range Interpretation [...] [place]) NEGATIVE SCcutoff <300 NG/ML BASIC METABOLIC [id number] 18:36:00* Test Item Value Reference Range Interpretation [...] N Completed by Nursing: NONT PRO-BRAIN NATRIURETIC [id number] 18:36:00* Test Item Value Reference Range Interpretation Comme nts NT PRO-BRAIN NATRIURETIC PEP TI (test code = PROBNP) 368 PG/ML 0-100 H Completed by Nursing: NOBASIC METABOLIC [id number] 18:32:00* Test Item Value Reference Range Interpretation [...] N Completed by Nursing: NONT PRO-BRAIN NATRIURETIC [id number] 18:32:00* Test Item Value Reference Range Interpretation Comme nts NT PRO-BRAIN NATRIURETIC PEP TI (test code = PROBNP) PG/ML 0-100 Completed by Nursing: [id number]-[id number] 18:32:00* Test Item Value Reference Range Interpretation Comme nts TROPONIN-I (test code = TROPI) NG/ML 0.000-0.045 Completed by Nursing: NOCBC W/AUTO [id number] 18:20:00* Test Item Value Reference Range Interpretation [...] NO DIFF/SCN CRITERIA - CT HEAD/BRAIN W/O [id number] 17:04:00Name: MORELIA MAYFIELD [facility] : 1970 Age/S: 49 / F [id number] [address] [place] Unit #: [id number] Loc: [place] [address] Phys: Domenica Quinn MD Acct: [id number] Dis Date: Status: PRE ER PHONE #: [phone] Exam Date: 08/23/2019 1635 FAX #: Reason: syncope EXAMS: CPT: [id number] CT HEAD/BRAIN W/O CONT 95113 INDICATIONS: syncope TECHNIQUE: Contiguous axial CT sections were obtained from the skull base to the vertex without intravenous contrast administration. CT DLP dose: 804 mGy centimeters. Iterative dose reduction technique utilized. Location: H54 COMPARISON: None available. FINDINGS: The brain parenchyma is unremarkable. The septum pellucidum and third ventricle aremidline. The ventricles are normal in size, shape and position. There is no evidence of acute intracranial hemorrhage, acute infarction, or an intracranial mass lesion. The skull and extracranial soft tissues are grossly within normal limits. Vascular calcifications are seen in the carotid siphons.IMPRESSION: 1. No evidence of acute intracranial abnormality. 2. Specifically, no evidence of hemorrhage, mass or stroke. at 1704 Reported and signed by: Miguel Cramer M.D. CC: Domenica Qiunn MD; Ly JOSE; Jeet Manley MD Technologist:Praveena Lora, RT(R)(CT) CTDI: DLP: Trnscb Date/Time: 08/23/2019 (1704) ScottieNB16 Orig Print D/T: S: 08/23/2019 (0764) PAGE 1 Signed Report Notes Date/Time Note Provider Source 2019-08-23 18:50:00 [id number] TLpZHE6TQKTfmcGsV9TAW98fqEG3u4g4wh0527-88-47T77:5 0:00 [facility] ([facility])EMERGENCY PROVIDER REPORTREPORT#:[id number] REPORT STATUS: SignedDATE:08/23/19 TIME:1849 PATIENT: MORELIA MAYFIELD UNIT #: [id number]#: [id number] ROOM/BED:: 68 AGE: 49 SEX: F PCP [...] date Free Text HPI NotesFree Text HPI Hbngp35-fdhh-mqd female with past medical history of hypertension [...] deficits Interpretation Diagnostics Lab Results InterpretationResultsLaboratory Tests 08/23/191634:[Embedded Image Not Available]Laboratory Tests: 08/22 1634 Chemistry [...] % (Auto) (20.5 - 51.1 %) 22.1 [place] % (Auto) (1.7 - 9.3 %) 7.9 Eos % (Auto) (0.0 - 6.0 %) 2.5 Baso % (Auto) (0.0 - 2.0 %) 0.5 Neut # (Auto) (1.8 - 7.6 K/mm3) 4.0 Lymph # (Auto) (0.6 - 3.2 K/mm3) 1.3 [place] # (Auto) (0.3 - 1.1 K/mm3) 0.5 [...] Room air 08/22 1617 Temp 36.7 08/22 161 Pulse 86 08/22 1617 Resp 16 08/22 1617 Last Documented: Result Date Time Pulse Ox 98 08/22 191 B/P 162/90 08/22 191 B/P Mean 114 08/22 1910 O2 Delivery Room air 08/22 191 Pulse 85 08/22 191 Resp 16 08/22 191 Temp 36.7 08/22 1617 All vital signs available at the time of this entry have been reviewed. Condition Improved, Stable Clinical ImpressionClinical ImpressionPrimary Impression: DizzinessSecondary Impressions: DehydrationTime of Impression 1850 Disposition DecisionDischarge )( Discharged to Home Yes )( Time 1850 )( Date 08/23/19 Discharge/Care PlanRefJeet Grier MD (PCP/Family) at 2018 RPT #: [id number] OF REPORTEDEmergency department hiaioc4857-92-64P94:50:00L.[id number] ilable for patient eazrGAHOIAGVNKXCJZ0968-37-93I72:18:47 [facility] 2019-08-23 18:50:00 [id number] a+okHh6hkYQO1MKmuLFszZMDbNWK8 N2QRKZh1ziyW0jq0TcHFAWKtvaeWX2HO5e1034-62-03X46:5 0:00 [facility] ([facility])EMERGENCY PROVIDER REPORTREPORT#:[id number] REPORT STATUS: SignedDATE:08/23/19 TIME:1849 PATIENT: MORELIA MAYFIELD UNIT #: [id number]#: [id number] ROOM/BED:: 68 AGE: 49 SEX: F PCP PHYS: Jeet Manley MDSERVICE AUTHOR: Ly Lawler * ALL edits or amendments must be made on the electronic/computer document * Ly Lawler 08/23/19 0650:HPI-Dizziness/Weakness GeneralConfirmed Patient YesPatient Type New patient PresentationChief Complaint DizzyHx Obtained From PatientOnset Occurred GradualSymptom Duration Since onset, Waxes and wanesLocation HeadQuality AchingRadiationDoes not radiate. No: Arm R, Arm L, Shoulder, Jaw, Back, Abdomen, Leg L, Leg R. Severity: Onset ModerateSeverity: Current Moderate ContextImmunization Status General All up to date Free Text HPI NotesFree Text HPI Bqfgg37-nauv-joh female with past medical history of hypertension [...] Ox 98 08/22 161 B/P 132/72 08/22 1616 B/P Mean 92 [...] deficits Interpretation Diagnostics Lab Results InterpretationResultsLaboratory Tests 08/23/191634:[Embedded Image Not Available]Laboratory Tests: 08/22 1634 Chemistry [...] % (Auto) (20.5 - 51.1 %) 22.1 [place] % (Auto) (1.7 - 9.3 %) 7.9 Eos % (Auto) (0.0 - 6.0 %) 2.5 Baso % (Auto) (0.0 - 2.0 %) 0.5 Neut # (Auto) (1.8 - 7.6 K/mm3) 4.0 Lymph # (Auto) (0.6 - 3.2 K/mm3) 1.3 [place] # (Auto) (0.3 - 1.1 K/mm3) 0.5 [...] B/P 162/90 08/22 1910 B/P Mean 114 06/18 1910 O2 Delivery Room air 06/18 1910 Pulse 85 08/22 1909 Resp 16 08/22 1909 Temp 98.1 08/22 1617 All vital signs available at the time of this entry have been reviewed. Condition Improved, Stable Clinical ImpressionClinical ImpressionPrimary Impression: DizzinessSecondary Impressions: DehydrationTime of Impression 1850 Disposition DecisionDischarge )( Discharged to Home Yes )( Time 185 )( Date 08/23/19 Discharge/Care PlanReferrJeet Tariq MD (PCP/Family) Domenica Quinn. 08/28/19 1001:HPI-Dizziness/Weakness GeneralInitial Greet Date/Time 08/23/19 1626 Patient Discharge Departure Supervising Physician Note MidLv Saw Pt AloneI have reviewed the PA/[employer] MANAGER's note and plan of care. I was available for consultation as needed at all times during the patient's visit in the emergency department. I agree with the clinical impression, plan and disposition. at 2018 at 1001 RPT #: [id number] OF REPORTEDEmergency department wwyvdn8271-68-20K49:50:00L.[id number] ilable for patient rzzaJTCSDJVFFMUXRR5236-06-12Z73:01:50 HCAPM
[2023-08-22 17:57] LABS: Absolute Basophils 0.1 K/uL (0-0.5); Absolute Eosinophils 0.1 K/uL (0-0.5); Absolute Lymphocytes (CBC) 0.5 K/uL (0.7-4.9); Absolute Monocytes 0.4 K/uL (0.1-1.3); Absolute Neutrophil 5.2 K/uL (1.8-8.0); Hematocrit 27.6 % (36.0-45.0); Hemoglobin 9.1 g/dL (12.0-15.0); Lymphocytes % 7.5 % (15.3-44.8); MCH 30.3 pg (27.0-35.0); MCHC 32.8 g/dL (32.0-36.0); MCV 92.3 fL (80-100); MPV 9.1 fL (7.6-11.3); Monocytes % 5.9 % (3.3-12.3); Neutrophils % 84.6 % (41.7-73.7); Platelets 140 thou/uL (152-406); RBC Red Blood Cell Count 2.99 M/uL (3.86-4.86); Red Cell Distribution Width 13.5 % (12.1-15.2)
[2023-08-22 18:18] LABS: Troponin High Sensitivity 34.2 pg/mL (<58.9)
[2023-08-22 18:19] LABS: Anion Gap 14.6 mEq/L (5.0-15.0)
[2023-08-22 18:20] LABS: Potassium 4.6 mEq/L (3.5-5.1)
[2023-08-22 19:22] LABS: Specific Gravity 1.008 (1.005-1.030); Sqamous Epithelial <5 /HPF (None Seen); Urine Bacteria 20-50 /HPF (<20); Urine Bilirubin NEGATIVE (Negative); Urine Blood 2+ (Negative); Urine Clarity Extremely Turbid (Clear); Urine Color Light-Yellow (Yellow); Urine Crystals Unidentified Few /HPF (None Seen); Urine Culture Reflex Order REFLEXED; Urine Glucose 4+ (Negative); Urine Ketones NEGATIVE (Negative); Urine Micro Reflex YN NO BILL MICROSCOPIC; Urine Nitrite NEGATIVE (Negative); Urine Protein 2+ (Negative); Urine Urobilinogen Normal (Normal); Urine WBC 20-50 /HPF (<5); Urine WBC Clump Rare /HPF (None Seen); Urine pH 5.5 (5.0-7.0)
--- NOTE | 2023-08-22 19:28 | RAD REPORT ---
[facility] CLINICAL HISTORY: COUGH COMPARISON: Chest Single View dated 08/18/2023; Chest Single View dated 08/15/2023; Chest Single View dated 07/19/2023; Chest Single View dated 07/14/2023 TECHNIQUE: Portable AP view of the chest. FINDINGS: Moderate right pleural effusion and trace left effusion, with layering at the bases, stabl e in appearance allowing for change in patient positioning. Central interstitial prominence appears s table. No pneumothorax. The cardiomediastinal contours are unremarkable. Right IJ dialysis catheter in unchanged position. IMPRESSION: Stable findings of pulmonary edema.
--- NOTE | 2023-08-22 19:50 | ER ---
Nurse's Notes [facility] Name: Alyson Mayfield Age: 53 yrs Sex: Female : 1970 Arrival Date: 08/22/2023 Time: 16:43 Bed 18 Private MD: Diagnosis: Volume Overload;Hyperglycemia, unspecified;UTI/ Urinary tract infection, site not specified Presentation: 08/21 17:00 Chief complaint: Patient states: "I just got out of the hospital recently and my blood aa5 sugar is still running high". Pt also c/o cornell leg swelling. 17:00 Coronavirus screen: At this time, the client does not indicate any symptoms associated aa5 with coronavirus-19. Ebola Screen: Patient denies travel to an Ebola-affected area in the 21 days before illness onset. Initial Sepsis Screen: Does the patient meet any 2 criteria? No. Patient's initial sepsis screen is negative. Does the patient have a suspected source of infection? No. Patient's initial sepsis screen is negative. Risk Assessment: Do you want to hurt yourself or someone else? Patient reports no desire to harm self or others. Onset of symptoms was August 2023. 17:00 Method Of Arrival: Ambulatory aa5 17:00 Acuity: KLAUS 2 aa5 Historical: - Allergies: 17:00 Bactrim; aa5 17:00 Tramadol HCl; aa5 - PMHx: 17:00 CHF; Diabetes - NIDDM; Dialysis M; M, W, F; Hypertension; Kidney stones; Thyroid aa5 problem; - PSHx: 17:00 Cholecystectomy; aa5 - Immunization history:: Adult Immunizations up to date. - Infectious Disease History:: Denies. - Social history:: Smoking status: Patient denies any tobacco usage or history of. Screenin:44 [facility] ED Fall Risk Assessment (Adult) History of falling in the last 3 months, mb9 including since admission No falls in past 3 months (0 pts) Confusion or Disorientation No (0 pts) Intoxicated or Sedated No (0 pts) Impaired Gait No (0 pts) Mobility Assist Device Used No (0 pt) Altered Elimination No (0 pt) Score/Fall Risk Level 0 - 2 = Low Risk Oriented to surroundings, Maintained a safe environment, Educated pt \\T\\ family on fall prevention, incl call for assistance when getting out of bed. Abuse screen: Denies threats or abuse. Nutritional screening: No deficits noted. Tuberculosis screening: No symptoms or risk factors identified. Assessment: 18:57 General: Appears in no apparent distress. Behavior is calm, cooperative. Pain: Denies mb9 pain. Neuro: Sesay Agitation-Sedation Scale (RASS): 0 - Alert and Calm Level of Consciousness is awake, alert, obeys commands, Oriented to person, place, time, situation, Appropriate for age. Cardiovascular: Patient's skin is warm and dry. Cardiovascular: Pulses are all present. Edema pitting to left toes and right toes. Respiratory: Airway is patent Respiratory effort is even, unlabored, Respiratory pattern is regular, symmetrical. GI: No signs and/or symptoms were reported involving the gastrointestinal system. : Urine is clear. EENT: No signs and/or symptoms were reported regarding the EENT system. Derm: Skin is pink, warm \\T\\ dry. Musculoskeletal: Swelling present in right foot, left foot, right leg and left leg. Vital Signs: 17:00 BP 155 / 84; Pulse 70; Resp 18 S; Temp 97.8(TE); Pulse Ox 98% on R/A; aa5 19:58 BP 142 / 86; Pulse 84; Resp 18; Pulse Ox 100% on R/A; mb9 ED Course: 16:45 Patient arrived in ED. im 16:51 Hira Lai MD is Attending Physician. ec2 17:00 Arm band placed on. aa5 17:02 Triage completed. aa5 17:41 Inserted saline lock: 22 gauge in right antecubital area, using aseptic technique. sm8 17:49 Initial lab(s) drawn, by me, sent to lab. sm8 18:23 Notified ED physician of a critical lab result(s). glucose 424 Dr. Lai. ll1 18:24 XRAY Chest (1 view) In Process Unspecified. EDMS 18:43 Kristyn Mariscal, ROB is Primary Nurse. mb9 18:44 Placed in gown. Bed in low position. Call light in reach. Side rails up X 1. Provided mb9 Education on: press call light if needing anything. Client placed on continuous cardiac and pulse oximetry monitoring. NIBP monitoring applied. monitoring manager on. 18:44 No provider procedures requiring assistance completed. mb9 18:57 EKG done, by ED staff, reviewed by Kristyn Mariscal RN. 9 19:50 Urine Culture Sent. 9 19:58 IV discontinued, intact, bleeding controlled, No redness/swelling at site. Pressure mb9 dressing applied. Administered Medications: 19:50 Drug: Cephalexin PO 500 mg PO once Route: PO; mb9 20:03 Follow up: Response: No adverse reaction mb9 Medication: 18:44 VIS not applicable for this client. mb9 Point of Care Testing: Blood Glucose: 17:05 Blood Glucose: 424 mg/dL; aa5 Ranges: Outcome: 19:49 Discharge ordered by . ec2 19:58 Discharged to home ambulatory, mb9 19:58 Condition: stable 19:58 Discharge instructions given to patient, family, Instructed on discharge instructions, follow up and referral plans. Demonstrated understanding of instructions, follow-up care, medications, Prescriptions given X 1, 20:03 Patient left the ED. 9 Signatures: Dispatcher [employer] EDTiffany Ramos RN RN aa5 Naveed Drake RN RN ll1 Davey, Kristyn Guaman, RN RN mb9 Jazmine Garcia Scarlett sm8 Hira Lai MD MD ec2 Corrections: (The following items were deleted from the chart) 17:01 17:00 PMHx: Dialysis M; aa5 aa5 17:01 17:00 PMHx: Dialysis M; aa5 aa5
--- NOTE | 2023-08-22 19:50 | EDPHYS ---
Physician Documentation [facility] Name: Alyson Mayfield Age: 53 yrs Sex: Female : 1970 Arrival Date: 08/22/2023 Time: 16:43 Bed 18 Private MD: ED Physician Hira Lai HPI: 08/21 17:28 This 53 yrs old Female presents to ER via Ambulatory with complaints of High ec2 Blood Sugar, Leg Swelling. 17:28 Patient arrives today for evaluation of bilateral lower extremity swelling along with ec2 hyperglycemia. Reports she is diabetic, insulin-dependent, takes Lantus, recently admitted for hypoglycemia and had her insulin medications increased. Patient reports that she has noted levels at 4500 which is what prompted evaluation today. Patient also reports that she is on dialysis, still makes urine, reports that she was last at dialysis on Tuesday and is due today as well. Denies any significant difficulty breathing.. Historical: - Allergies: 17:00 Bactrim; aa5 17:00 Tramadol HCl; aa5 - PMHx: 17:00 CHF; Diabetes - NIDDM; Dialysis M; M, W, F; Hypertension; Kidney stones; Thyroid aa5 problem; - PSHx: 17:00 Cholecystectomy; aa5 - Immunization history:: Adult Immunizations up to date. - Infectious Disease History:: Denies. - Social history:: Smoking status: Patient denies any tobacco usage or history of. ROS: 17:28 Constitutional: as per hpi ec2 Exam: 17:30 Constitutional: GEN: NAD Head: atraumatic Eyes: EOMI Ears: External ears are ec2 normal. CV: regular rate, trace lower extremity edema. LUNGS: no respiratory distress, no wheezes, rales, or rhonchi ABD: non-distended SKIN: no evidence of rashes MSK: no evidence of trauma NEURO: moves all extremities equally Vital Signs: 17:00 BP 155 / 84; Pulse 70; Resp 18 S; Temp 97.8(TE); Pulse Ox 98% on R/A; aa5 19:58 BP 142 / 86; Pulse 84; Resp 18; Pulse Ox 100% on R/A; mb9 MDM: 16:58 Patient medically screened. ec2 17:30 Data reviewed: vital signs. ED course: Patient arrives today due to concern for lower ec2 extremity edema along with hyperglycemia. Examination remarkable for cardiopulmonary findings as above. Will obtain lab work, chest x-ray. Differential diagnosis includes volume overload, DKA.. 18:40 ED course: Metabolic profile shows renal dysfunction which is expected given the ec2 patient's dialysis status, blood sugar elevated at 424, consistent with patient's reported hyperglycemia, slight anemia noted. Troponin within normal ranges. Patient also noted to have pseudohyponatremia.. 18:50 ED course: Chest x-ray independently reviewed and interpreted by me, shows ec2 cardiomegaly, right-sided pleural effusion, will compared to external records, this appears similar. Patient without any respiratory distress, no hypoxia noted on evaluation . 18:56 ED course: Independently reviewed and interpreted by me, shows normal sinus rhythm, ec2 rate of 65, no acute ST segment elevations, intervals are nonconcerning, nonspecific T wave abnormalities noted in the lateral leads. Patient without any active chest pain or shortness of breath at this time . 18:58 ED course: External EKG shows similar T wave inversions in the lateral leads noted. EKG ec2 today appears largely unchanged.. 19:49 ED course: Patient's urine is infectious appearing. Will start the patient on Keflex, ec2 discharged home and have her follow-up with primary care doctor. Instructed her to follow-up with PCP regarding her hyperglycemia and instructed her to follow-up with her dialysis clinic to undergo dialysis. Return precautions given. Does not have clinical indication for emergent dialysis at this time.. 08/21 17:08 Order name: Basic Metabolic Panel; Complete Time: 18:40 ec2 08/21 17:08 Order name: CBC with Diff; Complete Time: 18:40 ec2 08/21 17:08 Order name: Troponin HS; Complete Time: 18:40 ec2 08/21 17:17 Order name: Glucose, Ancillary Testing; Complete Time: 17:28 EDMS 08/21 18:56 Order name: UAM; Complete Time: 19:45 ec2 08/21 19:29 Order name: Urine Culture EDMS 08/21 17:08 Order name: XRAY Chest (1 view); Complete Time: 19:45 ec2 08/21 17:08 Order name: EKG; Complete Time: 17:08 ec2 08/21 17:08 Order name: Cardiac monitoring; Complete Time: 18:43 ec2 08/21 17:08 Order name: EKG - Nurse/Tech; Complete Time: 18:57 ec2 08/21 17:08 Order name: IV Saline Lock; Complete Time: 17:49 ec2 08/21 17:08 Order name: Labs collected and sent; Complete Time: 17:50 ec2 08/21 17:08 Order name: O2 Per Protocol; Complete Time: 18:43 ec2 08/21 17:08 Order name: O2 Sat Monitoring; Complete Time: 18:43 ec2 Administered Medications: 19:50 Drug: Cephalexin PO 500 mg PO once Route: PO; mb9 20:03 Follow up: Response: No adverse reaction mb9 Point of Care Testing: Blood Glucose: 17:05 Blood Glucose: 424 mg/dL; aa5 Ranges: Critical Glucose Levels:Adult <50 mg/dl or >400 mg/dl <40 mg/dl or >180 mg/dl Disposition Summary: 08/22/23 19:49 Discharge Ordered Notes: Location: Home ec2 Condition: Stable ec2 Diagnosis - Volume Overload ec2 - Hyperglycemia, unspecified ec2 - UTI/ Urinary tract infection, site not specified ec2 Followup: ec2 - With: Private Physician - When: - Reason: Re-evaluation by your physician Discharge Instructions: - Discharge Summary Sheet ec2 - Urinary Tract Infection, Adult ec2 Forms: - Medication Reconciliation Form ec2 - Antibiotic Education ec2 - Prescription Opioid Use ec2 - Patient Portal Instructions ec2 - Leadership Thank You Letter ec2 Prescriptions: - Cephalexin 500 mg Oral capsule - take 1 capsule ORAL route every 12 hours for 5 days; 10 capsule; Refills: 0, ec2 Product Selection Permitted Signatures: Dispatcher [employer] Tiffany Stephens RN RN andie5 Kristyn Mariscal RN RN mb9 Hira Lai MD MD ec2 Corrections: (The following items were deleted from the chart) 17:01 17:00 PMHx: Dialysis M; aa5 aa5 17:01 17:00 PMHx: Dialysis M; aa5 aa5 17:30 17:28 Patient arrives today for evaluation of bilateral lower extremity swelling along ec2 with hyperglycemia. Reports she is diabetic, insulin-dependent, takes Lantus, recently admitted for hypoglycemia and had her insulin medications increased. Patient reports that she has noted levels at 4500 which is what prompted evaluation today. Patient also reports that she is on dialysis, still makes urine, reports that she was last at dialysis on Tuesday and is due today as well.. ec2
[2023-08-22] MEDS ORDERED: CEPHALEXIN 250 MG CAP ONE (19:53)
[2023-08-22 20:41] VITALS: BP 142/86; TEMP 97.8; O2SAT 100
--- NOTE | 2023-08-23 14:14 | EKG ---
Test Date: 2023-08-22 Test Time: 18:52:37 Scoop Operator: MB MEASUREMENT RESULTS: Intervals: Rate: 65 HI: 164 QRSD: 72 QT: 442 QTc: 459 [place]: P: 76 HI: 164 QRS: 94 T: 226 INTERPRETIVE STATEMENTS: Normal sinus rhythm Rightward axis T wave abnormality, consider lateral ischemia Abnormal ECG Compared to ECG 08/18/2023 03:32:55 Right-axis deviation now present T-wave abnormality now present ST (T wave) deviation no longer present Prolonged QT interval no longer present Possible ischemia still present Electronically Signed On 08-23-23 14:12:23 CDT by Heri Encarnacion
== END 2023-08-22 20:03 | disposition home or self-care (01) ==
LOC: ER 16:43
DX: E87.70 Fluid overload, unspecified (principal); E11.65 Type 2 diabetes mellitus with hyperglycemia; N39.0 Urinary tract infection, site not specified; Z79.4 Long term (current) use of insulin
CPT/HCPCS: 36415; 71045; 80048; 81001; 82947; 84484; 85025; 87077; 87086; 87088; 87186; 93005; 99285

== ENCOUNTER 2023-08-23 21:50 | Emergency (ER) | payer BC ==
--- OUTSIDE RECORDS SUMMARY | 2023-08-23 21:55 | XMS REPORT | Continuity of Care Document ---
Author Name Unknown Address [address] [facility] [address] [place] [address] [facility] thconnect Address [address] [facility] [address] [place] [address] Care Team Providers Care Medicinal Chemist Name Role Phone Jeet Manley MD Primary Care Physician [phone] CHALO CHRISTIANSON Attending Clinician Unavailable [id number] Attending Clinician Unavailable GAYATRI DEE Attending Clinician Nate galeas GC_GCBZW_Kaodessa_S Attending Clinician UnavailFaith Fonseca MD Attending Clinician [phone] FAITH MICHEL Attending Clinician Unavailjazmine e Pob, 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 Attending Clinician UnavailMarciano Cruz MD Attending Clinician [phone] MARCIANO ELLIOTT Attending Clinician Unavailjazmine e Doctor Unassigned, [place] Attending Clinician U Rissa Newton Attending Clinician UnavailGrzegorz Ortega MD Attending Clinician [phone] GRZEGORZ HAYNES Attending Clinician Unavailabl e RADIOLOGY Attending Clinician Unavailable ODESSA ROBERTO Attending Clinician Unavailable BENSON CASTRO Attending Clinician Unavail able BENSON CASTRO Attending Clinician Unavail able Benson Castro MD Attending Clinician [phone] Radiology Attending Clinician Unavailable Stephen Ojeda Rahil Attending Clinician Unavail able Danya Singh MD Attending Clinician [phone] DANYA SINGH Attending Clinician Unavailable Teddy MONROE Sarah Attending Clinician Unava Gayatri Brown MD Attending Clinician + [phone] Only, Adc Test Attending Clinician Unavailable Mali Carter Attending Clinician [phone] EMMANUELLE SCHULTE Attending Clinician UnavailLatricia Kline DO Attending Clinician [phone] Latasha Fernandez MD Attending Clinician + [phone] LATASHA FERNANDEZ Attending Clinician Unavaila LATASHA Gupta Attending Clinician Unavaila irina Johnson Attending Clinician Unavailable [facility] Sleep Lab Attending Clinician Unavaila Jose Raul Dee DO Attending Clinician [phone], [facility] Attending Clinician Unavailable JAN VALENTINE Attending Clinician Unavailable Jan Valentine MD Attending Clinician [phone] Yazmin Garber RN Attending Clinician [phone] SUSANNAH WANG Attending Clinician Unavailable Sb Escobar MD Attending Clinician [phone] Susannah Wang MD Attending Clinician [phone] SB ESCOBAR Attending Clinician Unavailable SIVA ALVAREZ Attending Clinician Unavailable Kim GERMAN Siva S Attending Clinician [phone] Admitting Clinician Unavailable GAYATRI DEE Admitting Clinician Unajavi galeas GC_GCBZW_Kadiyala_S Admitting Clinician UnavailJeet March Admitting Clinician Unavailable FAITH MICHEL Admitting Clinician UnavailJEET Hernandez Admitting Clinician Unavailab Stephen Dai Rahil Admitting Clinician Unavail able Gayatri Dee MD Admitting Clinician [phone] BENSON CASTRO Admitting Clinician Unavail able Alex Admitting Clinician Unavailable SUSANNAH WANG Admitting Clinician Unavailable Susannah Wang MD Admitting Clinician [phone] JUDE EUCEDA Admitting Clinician Unavaila ble Payers Payer Name Policy Type Policy Number Effective Date Expirati on Date Source [place] OF [place] [id number] 2007 00:00:00 BCBS [place] [id number] [place] OUT OF [place] [id number] 2018 00:00:00 [place]BS[place]: (PPO) [id number] 2019 00:00:00 2021 00:00:00 Problems Condition Name Condition Details Condition Category Status Onset Date Resolution Date Last Treatment Date Treating Clinician Comments Source Nonrheumat ic mitral valve regurgitat ion Nonrheumat ic mitral valve regurgitat ion Disease Active 09-18 00:00: 00 [facility] Coronary artery disease involving [place] coronary artery without angina pectoris Coronary artery disease involving [place] coronary artery without angina pectoris Disease Active 09-18 00:00: 00 [facility] Presence of drug-eluti ng stent in anterior descending branch of left coronary artery Presence of drug-eluti ng stent in anterior descending branch of left coronary artery Disease Active 09-18 00:00: 00 [facility] Chronic systolic heart failure Chronic systolic heart failure Disease Active 09-18 00:00: 00 [facility] Congestive heart failure, NYHA class 3 and ACC/AHA stage C Congestive heart failure, NYHA class 3 and ACC/AHA stage C Disease Active 09-18 00:00: 00 [facility] GADIEL (obstructi ve sleep apnea) GADIEL (obstructi ve sleep apnea) Disease Active 9-21 00:00: 00 Jesusita cazares [facility] Obesity Obesity Problem Active 5-06 00:00: 00 [facility] Irritable bowel syndrome Irritable Bowel Syndrome Problem Active 4-22 00:00: 00 [facility] Low blood pressure Low Blood Pressure Problem Active 08-22 00:00: 00 [facility] Dizziness and giddiness Dizziness and Giddiness Problem Active 08-22 00:00: 00 [facility] Essential hypertensi on Essential Hypertensi on Problem Active 07-25 00:00: 00 [facility] Gastropare sis syndrome Gastropare sis Syndrome Problem Active 07-25 00:00: 00 [facility] Proteinuri a Proteinuri a Problem Active 07-25 00:00: 00 [facility] Hypertensi ve disorder Hypertensi ve Disorder Problem Active 07-25 00:00: 00 [facility] Localized edema Localized Edema Problem Active 07-25 00:00: 00 [facility] Hypoxia Hypoxia Disease Active 06-03 00:00: 00 [facility] Acute diastolic congestive heart failure Acute diastolic congestive heart failure Disease Active 06-03 00:00: 00 [facility] Pneumonia due to infectious organism Pneumonia due to infectious organism Disease Active 06-03 00:00: 00 [facility] HTN (hypertens ion) HTN (hypertens ion) Disease Active 06-03 00:00: 00 [facility] Urinary tract infectious disease Urinary Tract Infectious Disease Problem Active 2018-03 002 00:00: 00 [facility] Hyperlipid emia Hyperlipid emia Problem Active 10-15 00:00: 00 [facility] Elevated levels of transamina se & lactic acid dehydrogen ase Elevated Levels of Transamina se & Lactic Acid Dehydrogen ase Problem Active 10-15 00:00: 00 [facility] Finding of urine substance level Finding of Urine Substance Level Problem Active 10-15 00:00: 00 [facility] Hypothyroi dism Hypothyroi dism Problem Active 09-12 00:00: 00 [facility] 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 Due to Type 2 Diabetes Mellitus Problem Active 09-12 00:00: 00 [facility] Family history of diabetes mellitus Family History of Diabetes Mellitus Problem Active 09-12 00:00: 00 [facility] Screening for disorder Screening for Disorder Problem Active 09-12 00:00: 00 [facility] Tinea pedis Tinea Pedis Problem Active 09-12 00:00: 00 [facility] Type 2 diabetes mellitus Type 2 diabetes mellitus Disease Active 07-17 00:00: 00 [facility] Hyperlipid emia Hyperlipid emia Disease Active 07-17 00:00: 00 [facility] Nephrolith iasis Nephrolith iasis Disease Active 07-17 00:00: 00 [facility] Allergies, Adverse Reactions, Alerts Allergy Name Allergy Type Status Severity Reaction(s) Onset Date Inactive Date Treating Clinician Comments Source Sulfamet hoxazole -Trimeth oprim Allergy to substanc e Active 09-18 00:00: 00 [facility] AMLODIPI NE DRUG INGREDI Active Swelling 2020-03 2- 00:00: 00 [facility] Amlodipi ne Propensi ty to adverse reaction s Active Swelling 2020-03 2-20 00:00: 00 [facility] Sulfamet hoxazole Propensi ty to adverse reaction s Active Swelling - 00:00: 00 [facility] Trimetho prim Propensi ty to adverse reaction s Active Swelling - 00:00: 00 [facility] TRIMETHO PRIM DRUG INGREDI Active Swelling 0 9-07 00:00: 00 [facility] SULFAMET HOXAZOLE DRUG INGREDI Active Low Swelling 9-07 00:00: 00 [facility] Lisinopr il Propensi ty to adverse reaction s Active Cough 2020-0 5-10 00:00: 00 [facility] LISINOPR IL DRUG INGREDI Active COUGH 0 5-10 00:00: 00 [facility] No Known Allergie s DA Active U 18 00:00: 00 [facility] No Known Allergie s DA Active U 18 00:00: 00 [facility] Tramadol Allergy to substanc e Active Itching 08-10 00:00: 00 Other reaction( s): Hives/Davie h [facility] Tramadol Propensi ty to adverse reaction s Active Itching 08-10 00:00: 00 [facility] TRAMADOL DRUG INGREDI Active ITCHING 08-10 00:00: 00 [facility] Metformi n Allergy to substanc e Active Diarrhea [facility] Ramipril Allergy to substanc e Active Rash [facility] Social History Social Habit Start Date Stop Date Quantity Comments Source History of tobacco use Current smoker [facility] to SARS-CoV-2 (event) 2022-05-04 00:00:00 2022-05-14 16:23:00 Not sure [facility] History of Social function 2020-11-12 00:00:00 2020-11-12 00:00:00 [facility] Tobacco Comment 2020-11-11 00:00:00 2020-11-11 00:00:00 quit 30 yrs ago [facility] Alcohol intake 2020-06-13 00:00:00 2020-06-13 00:00:00 .48 /d [facility] Tobacco use and exposure 2010-07-10 00:00:00 2010-07-10 00:00:00 Smokeless tobacco non-user [facility] Sex Assigned At 1970 00:00:00 1970 00:00:00 [facility] Smoking Status Start Date Stop Date Source Tobacco smoking consumption unknown [facility] Ex-smoker 2020-11-11 00:00:00 2020-11-11 00:00:00 [facility] Never smoked tobacco [facility] Medications Ordered Medication Name Filled Medication Name Start Date Stop Date Current Medication? Ordering Clinician Indication Dosage Frequency Signature (SIG) Comments Components Source barium sulfate (LIQUID E-Z PAQUE) 60 % (w/v) oral suspension 340 g 09-03 14:00: 00 09-03 17:31 :00 No [id number] 340g 340 g, Oral, ONCE, 1 dose, On Tue09/03/22 at 0900, Routine [facility] iopamidol (ISOVUE 370-500 mL) injection 60 mL 04-02 20:35: 00 04-02 20:46 :00 No [id number] 60mL 60 mL, Intravenou s, ONCE, 1 dose, On Tue04/02/22 at 1445, Routine [facility] topiramate 100 mg tablet 2021-03 00:00: 00 Yes [id number] 100mg Take 1 tablet by mouth in the morning and 1 tablet in the evening. [facility] SUMAtriptan 50 mg tablet 2021-03 00:00: 00 02-24 05:59 :00 No [id number] 50mg Take 1 tablet by mouth once now for 1 dose. [facility] topiramate 50 mg tablet 2021-03 00:00: 00 02-23 00:00 :00 No [id number] 50mg Take 1 tablet by mouth in the morning and 1 tablet in the evening. [facility] cholecalcif kassidy (Vitamin D-3) 25 MCG (1000 UT) capsule 09-18 13:29: 29 Yes Take by mouth. [facility] linaGLIPtin (Tradjenta) 5 MG tablet 09-18 13:29: 29 Yes Tradjenta 5 mg tablet TAKE 1 TABLET BY MOUTH ONCE DAILY IN THE MORNING [facility] Entresto 24-26 MG tablet 09-16 00:00: 00 Yes Q.5D Take by mouth 2 (two) times a day. [facility] torsemide (Demadex) 20 MG tablet 09-06 00:00: 00 Yes 80mg QD Take 80 mg by mouth 1 (one) time each day. TAKE 4 TABLETS BY MOUTH ONCE DAILY [facility] DIETARY SUPERVISOR Thyroid 60 MG tablet 08-14 00:00: 00 Yes 60mg QD Take 60 mg by mouth 1 (one) time each day. on an empty stomach [facility] carvedilol (Coreg) 6.25 MG tablet 07-24 00:00: 00 Yes 6.25mg Q.5D Take 6.25 mg by mouth in the morning and 6.25 mg before bedtime. [facility] topiramate (Topamax) 25 MG tablet 2022-0 5-20 00:00: 00 Yes 25mg Take 25 mg by mouth if needed. [facility] atorvastati n (Lipitor) 40 MG tablet 07-07 00:00: 00 Yes 40mg Take 40 mg by mouth every night. [facility] EQ Aspirin Adult Low Dose 81 MG EC tablet 07-07 00:00: 00 Yes 81mg QD Take 81 mg by mouth 1 (one) time each day. [facility] clopidogrel (Plavix) 75 MG tablet 07-07 00:00: 00 Yes 75mg QD Take 75 mg by mouth 1 (one) time each day. [facility] Farxiga 10 MG 04-25 00:00: 00 Yes 10mg QD Take 10 mg by mouth 1 (one) time each day. [facility] cloniDINE 0.1 mg/24 hr patch 2020-03 00:00: 00 Yes [id number] 1{patch } Apply 1 Patch to skin weekly. [facility] carvediloL 12.5 mg tablet 2020-03 15:47: 03 Yes 12.5mg Take 12.5 mg by mouth 2 (two) times daily with meals. [facility] insulin aspart (NOVOLOG FLEXPEN U-100 INSULIN SC) 2020-03 11:25: 42 Yes inject under the skin. Per SS [facility] aspirin 81 mg chewable tablet 2020-03 11:25: 42 Yes 81mg Take 81 mg by mouth daily. [facility] dapaglifloz in (FARXIGA) 5 mg tablet 2020-03 11:25: 42 Yes Take by mouth daily. [facility] linaGLIPtin (TRADJENTA) 5 mg tablet 2020-03 11:25: 42 Yes Take by mouth daily. [facility] TURMERIC ORAL 2020-03 11:25: 42 Yes 500mg Take 500 mg by mouth 2 (two) times daily. [facility] Cholecalcif kassidy, Vitamin D3, (VITAMIN D3) 25 mcg (1,000 unit) capsule 2020-03 11:25: 42 Yes Take by mouth daily. [facility] bumetanide 1 mg tablet 2020-03 11:25: 42 Yes 1mg 1 mg at bedtime. [facility] ergocalcife rol, vitamin d2, (VITAMIN D2) 1,250 mcg (50,000 unit) capsule 2020-03 11:25: 42 Yes [id number] Take 50,000 Units by mouth weekly. [facility] nystatin 100,000 unit/mL suspension 2020-03 11:25: 42 Yes Take by mouth 4 (four) times daily. [facility] amLODIPine 10 mg tablet 2020-03 00:00: 00 02-12 00:00 :00 No [id number] 10mg Take 1 tablet by mouth daily. [facility] topiramate 25 mg tablet 2020-03 00:00: 00 01-18 00:00 :00 No [id number] 25mg Take 1 tablet by mouth 2 (two) times daily. [facility] spironolact one 25 mg tablet 11-25 00:00: 00 Yes [id number] 02 25mg Take 1 tablet by mouth daily. [facility] thyroid (ARMOUR THYROID) 30 mg tablet 11-25 00:00: 00 Yes [id number] 15mg Take 0.5 tablets by mouth every morning. [facility] gabapentin 100 mg capsule 05-23 00:00: 00 Yes [id number] 100mg Take 1 capsule by mouth 3 (three) times daily. [facility] flash glucose scanning reader (FREESTYLE YASH 14 DAY READER) [facility] 06-04 00:00: 00 Yes [id number] 1{appli catorfu l} 1 Applicator ful 4 (four) times daily. Check glucose QID as directed [facility] flash glucose sensor (FREESTYLE YASH 14 DAY SENSOR) Kit 06-04 00:00: 00 Yes [id number] 1{appli cator} 1 Applicator 4 (four) times daily. [facility] Adult Aspirin Regimen 81 mg tablet,mary [...] Family Practic [facility] FreeStyle Yash 14 Day [place] FreeStyle Yash 14 Day [place] No FreeStyle Yash 14 Day [place] [facility] FreeStyle Yash 14 Day Sensor FreeStyle Yash 14 Day Sensor No FreeStyle Yash 14 Day Sensor [facility] FreeStyle Yash 14 Day Sensor kit USE DAILY BUT CHANGE EVERY 14 DAYS FreeStyle Yash 14 Day Sensor kit USE DAILY BUT CHANGE EVERY 14 DAYS No FreeStyle Yash 14 Day Sensor kit USE DAILY BUT CHANGE EVERY 14 DAYS [facility] DIETARY SUPERVISOR Thyroid 30 mg tablet TAKE 1 TABLET BY MOUTH ONCE DAILY FOR 30 DAYS DIETARY SUPERVISOR Thyroid 30 mg tablet TAKE 1 TABLET BY MOUTH ONCE DAILY FOR 30 DAYS No DIETARY SUPERVISOR Thyroid 30 mg tablet TAKE 1 TABLET BY MOUTH ONCE DAILY FOR 30 DAYS [facility] OneTouch Verio test strips OneTouch Verio test strips No OneTouch Verio test strips [facility] Ozempic 0.25 mg [...] Vitamin D2 Vitamin D2 No Vitamin D2 [facility] Vitamin D3 1000 IU DAILY Vitamin D3 1000 IU DAILY No Vitamin D3 1000 IU DAILY [facility] Vital Signs Vital Name Observation Time Observation Value Comments S ource Systolic blood pressure 2022-02-23 20:45:00 105 mm[Hg] [facility] Diastolic blood pressure 2022-02-23 20:45:00 74 mm[Hg] [facility] Heart rate 2022-02-23 20:45:00 77 /min [facility] Body height 2022-02-23 20:45:00 157.5 cm [facility] Body weight 2022-02-23 20:45:00 48.081 kg [facility] BMI 2022-02-23 20:45:00 19.39 kg/m2 [facility] Oxygen saturation in Arterial blood by Pulse oximetry 2022-02-23 20:45:00 99 /min [facility] Systolic blood pressure 2022-01-18 22:23:00 149 mm[Hg] [facility] Diastolic blood pressure 2022-01-18 22:23:00 84 mm[Hg] [facility] Heart rate 2022-01-18 22:23:00 68 /min [facility] Body weight 2022-01-18 22:23:00 50.803 kg [facility] BMI 2022-01-18 22:23:00 20.49 kg/m2 [facility] Oxygen saturation in Arterial blood by Pulse oximetry 2022-01-18 22:23:00 94 /min [facility] Systolic blood pressure 2021-09-18 18:29:00 156 mm[Hg] [facility] Diastolic blood pressure 2021-09-18 18:29:00 85 mm[Hg] [facility] Heart rate 2021-09-18 18:29:00 69 /min [facility] Respiratory rate 2021-09-18 18:29:00 16 /min [facility] Body weight 2021-09-18 18:29:00 55.792 [facility] Oxygen saturation in Arterial blood by Pulse oximetry 2021-09-18 18:29:00 97 /min [facility] BP Diastolic 2020-07-10 00:00:00 86 mm[Hg] [facility] Height 2020-07-10 00:00:00 62 [in_i] [facility] BMI (Body Mass Index) 2020-07-10 00:00:00 33.5 kg/m2 [facility] BP Systolic 2020-07-10 00:00:00 137 mm[Hg] [facility] Body Weight 2020-07-10 00:00:00 183 [lb_av] [facility] BP Diastolic 2020-02-07 00:00:00 78 mm[Hg] [facility] Height 2020-02-07 00:00:00 62 [in_i] [facility] BMI (Body Mass Index) 2020-02-07 00:00:00 33 kg/m2 [facility] BP Systolic 2020-02-07 00:00:00 122 mm[Hg] [facility] Body Weight 2020-02-07 00:00:00 180.2 [lb_av] [facility] BP Diastolic 2019-12-24 00:00:00 78 mm[Hg] [facility] Height 2019-12-24 00:00:00 62 [in_i] [facility] BMI (Body Mass Index) 2019-12-24 00:00:00 31.5 kg/m2 [facility] BP Systolic 2019-12-24 00:00:00 110 mm[Hg] [facility] Practice Body Weight 2019-12-24 00:00:00 172 [lb_av] [facility] Procedures Procedure Date / Time Performed Performing Clinician Source CONSENT/REFUSAL FOR DIAGNOSIS AND TREATMENT 2022-06-23 20:02:57 Doctor Unassigned, [place] [facility] PHYSICIAN ORDERS 2022-05-14 06:01:00 Doctor Unas signed, [place] [facility] HB CREATININE SERUM/BLOOD FOR IMAGING 2022-04-02 21:10:00 Faith Michel [facility] CT ABDOMEN PELVIS W CONTRAST 2022-04-02 20:43:00 Faith Michel [facility] CBC WITH DIFF 2022-03-29 22:37:00 [facility] 2022-03-29 22:23:51 Doctor Unassigned, [place] [facility] ECG 12-LEAD 2021-09-18 21:45:54 Chalo [facility] CONSENT/REFUSAL FOR DIAGNOSIS AND TREATMENT 2021-06-23 18:30:15 Doctor Unassigned, [place] [facility] ASSIGNMENT OF BENEFITS 2021-06-23 18:30:01 Doctor Unassigned, [place] [facility] [id number] 2021-04-21 00:00:00 [facility] [place] Plan of Care Planned Activity Planned Date Details Comments Source Diagnostic Test Pending 2020-07-10 00:00:00 glucose, fingerstick, blood [code = glucose, fingerstick, blood] [facility] Diagnostic Test Pending 2020-07-10 00:00:00 hemoglobin A1C, fingerstick [code = hemoglobin A1C, fingerstick] [facility] Encounters Start Date/Time End Date/Time Encounter Type Admission Type Attending Clinicians Care Facility Care Department Encounter ID Source 2022-07-15 12:08:12 Outpatient [facility] [id number] [facility] 2022-07-14 13:01:54 Outpatient [facility] [id number] [facility] 2022-04-05 13:49:37 Outpatient [facility] [id number] [facility] 2021-09-22 17:34:30 Outpatient [facility] [id number] [facility] 2021-09-18 13:11:20 Outpatient CHALO CHRISTIANSON [facility] [id number] [facility] 2021-09-17 13:49:24 Outpatient [facility] [id number] [facility] 2021-09-16 14:24:43 Outpatient CHALO CHRISTIANSON [facility] [id number] [facility] 2021-04-02 13:46:27 Outpatient 3 [id number] [facility] PUL [id number] [facility] 2021-04-02 13:45:28 Outpatient 3 [id number] ENC[facility] PUL [id number] [facility] 2021-04-02 13:44:46 Outpatient 3 [id number] ENC[facility] PUL [id number] [facility] [place] [facility] 2021-04-02 13:43:23 Outpatient 3 [id number] ENC[facility] REF [id number] [facility] [place] [facility] 2021-01-05 19:43:30 Outpatient R GAYATRI LOBO [facility] [id number] [facility] 2021-01-05 13:14:53 Emergency [facility] [id number] [facility] 2023-01-05 17:18:55 2023-01-05 17:18:55 Outpatient [facility] [id number] Jude Pulliam 2022-12-31 00:00:00 2022-12-31 00:00:00 Outpatient GC_GCBZW_Ka diyala_S PRIV PRIV [id number] [facility] 2022-10-19 14:14:12 2022-10-19 14:14:12 Outpatient [facility] [id number] Jude Pulliam 2022-09-03 09:35:23 2022-09-03 23:59:00 Hospital Encounter Faith Michel [facility] [id number] [facility] 2022-09-03 08:49:31 2022-09-03 09:34:00 Hospital Encounter [facility] [id number] [facility] 2022-09-03 00:00:00 2022-09-03 09:34:00 Outpatient R MARILU FAITH [facility] [id number] [facility] 2022-08-24 16:45:00 2022-08-24 17:00:00 Manager Play Visit Pob, 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 Marciano [facility] [id number] [facility] 2022-08-24 16:45:00 2022-08-24 16:45:00 Outpatient MARCIANO NIXON [facility] [id number] [facility] 2022-06-25 00:00:00 2022-06-25 00:00:00 Outpatient Sagar FAITH MICHEL [facility] [id number] [facility] 2022-06-23 15:15:00 2022-06-23 15:30:00 Manager Play Visit Pob, 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 Marciano Elliott [facility] 1.2.840.114 350.1.13.10 4.2.7.2.686 [id number] [facility] 2022-06-23 15:15:00 2022-06-23 15:15:00 Outpatient Sagar ELLIOTT [facility] [id number] [facility] 2022-06-23 00:00:00 2022-06-23 00:00:00 Orders Only Doctor Unassigned, [place] [facility] 1..840.114 350.1.13.10 4.2.7.2.686 [id number] [facility] 2022-06-17 21:22:00 2022-06-17 21:22:00 Outpatient Rissa Lange [facility] [id number] [facility] 2022-05-14 16:30:00 2022-05-14 16:45:00 Manager Play Visit Pob, 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 Grzegorz Haynes [facility] 1..840.114 350.1.13.10 4.2.7.2.686 [id number] [facility] 2022-05-14 16:30:00 2022-05-14 16:30:00 Outpatient GRZEGORZ GRANDE [facility] [id number] [facility] 2022-05-14 00:00:00 2022-05-14 00:00:00 Orders Only Doctor Unassigned, [place] [facility] 1.840.114 350.1.13.10 4.2.7.2.686 [id number] [facility] 2022-04-12 14:30:00 2022-04-12 14:45:00 Manager Play Visit Pob, 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 Grzegorz Haynes [facility] BUILDING 1..114 350.1.13.10 4.2.7.2.686 [id number] [facility] 2022-04-12 14:30:00 2022-04-12 14:30:00 Outpatient R GRZEGORZ HAYNES [facility] [id number] [facility] 2022-04-12 00:00:00 2022-04-12 00:00:00 Outpatient R RADIOLOGY [facility] [id number] [facility] 2022-04-05 13:25:00 2022-04-05 13:25:00 Outpatient R RADIOLOGY [facility] [id number] [facility] 2022-04-02 13:33:26 2022-04-02 23:59:00 Outpatient R MARILU FAITH [facility] [id number] [facility] 2022-04-02 13:33:26 2022-04-02 23:59:00 Hospital Encounter Marilu Faith [facility] 1..114 350.1.13.10 4.2.7.2.686 [id number] [facility] 2022-03-29 16:30:00 2022-03-29 16:45:00 Manager Play Visit Pob, 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 Marilu [facility] BUILDING 1.84.114 350.1.13.10 4.2.7.2.686 [id number] [facility] 2022-03-29 16:30:00 2022-03-29 16:30:00 Outpatient R MICHELFAITH [facility] [id number] [facility] 2022-03-29 00:00:00 2022-03-29 00:00:00 Orders Only Doctor Unassigned, [place] [facility] 1..840.114 350.1.13.10 4.2.7.2.686 [id number] [id number] [facility] 2022-03-26 13:30:00 2022-03-26 13:30:00 Outpatient R BELEM ROBERTOSSICA [facility] [id number] [facility] 2022-02-23 14:30:00 2022-02-23 15:08:25 Outpatient BELEM ALBARRANSSICA [facility] [id number] [facility] 2022-02-23 14:30:00 2022-02-23 15:08:25 Office Visit Belem Robertossica [facility] 1.2.840.114 350.1.13.10 4.2.7.2.686 [id number] [id number] [facility] 2022-02-15 00:00:00 2022-02-15 00:00:00 Patient Secure Msg Doctor Unassigned, [place] [facility] 1.2.840.114 350.1.13.10 4.2.7.2.686 [id number] 044 [id number] [facility] 2022-01-18 16:30:00 2022-01-18 16:38:58 Outpatient BENSON CASEY HOWARD [facility] [id number] [facility] 2022-01-18 16:30:00 2022-01-18 16:38:58 Office Visit Odessa Roberto Howard Gene [facility] 1.2840.114 350.1.13.10 4.2.7.2.686 [id number] 092 [id number] [facility] 2021-12-11 00:00:00 2021-12-11 00:00:[address] [facility] 1.2840.114 350.1.13.10 4.2.7.2.686 [id number] [id number] [facility] 2021-11-30 15:57:43 2021-11-30 23:59:00 Outpatient R RADIOLOGY [facility] [id number] [facility] 2021-11-30 15:57:43 2021-11-30 23:59:00 Hospital Encounter Radiology [facility] 1.20.114 350.1.13.10 4.2.7.2.686 [id number] [facility] 2021-09-18 13:40:00 2021-09-18 14:48:02 Office Visit Chalo Christianson [facility] [address] 1.2840.114 350.1.13.58 9.2.7.2.686 [id number] [facility] 2021-06-23 13:45:00 2021-06-23 14:00:00 Manager Play Visit Pob, 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 Grzegorz Haynes [facility] PROFESSIO NAL BUILDING 1.2840.114 350.1.13.10 4.2.7.2.686 [id number] [facility] 2021-06-23 13:45:00 2021-06-23 13:45:00 Outpatient R GRZEGORZ HAYNES [facility] [id number] [facility] 2021-06-23 00:00:00 2021-06-23 00:00:00 Orders Only Doctor Unassigned, [place] [facility] 1.2840.114 350.1.13.10 4.2.7.2.686 [id number] [facility] 2021-04-06 20:57:00 2021-04-25 12:25:00 Inpatient 3 Stephen Ojeda ENCPL PUL [id number] [facility] Pearyolanda d 2021-02-23 00:00:00 2021-02-23 00:00:00 [facility] 1.2.840.114 350.1.13.10 4.2.7.2.686 [id number] 059 [id number] [facility] 2021-02-09 00:00:00 2021-02-09 00:00:00 [facility] 1.2.840.114 350.1.13.10 4.2.7.2.686 [id number] 059 [id number] [facility] 2021-01-26 11:23:08 2021-01-26 11:43:42 [facility] 1.2.840.114 350.1.13.10 4.2.7.2.686 [id number] 059 [id number] [facility] 2021-01-26 11:20:00 2021-01-26 11:43:42 [facility] [id number] [facility] 2021-01-26 11:20:00 2021-01-26 11:43:42 [facility] [id number] [facility] 2021-01-26 11:20:00 2021-01-26 11:20:00 [facility] [id number] [facility] 2021-01-22 07:50:27 2021-01-22 08:43:54 Manager Play Visit Pob, 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 Marciano Elliott [facility] BUILD[facility] 1.2.840.114 350.1.13.10 4.2.7.2.686 [id number] [facility] 2021-01-22 07:45:00 2021-01-22 08:43:54 Outpatient R MARCIANO ELLIOTT [facility] [id number] [facility] 2021-01-22 07:45:00 2021-01-22 07:45:00 Outpatient R EARL PORTAGEVILLESANDIP [facility] [id number] [facility] 2020-12-25 00:00:00 2020-12-25 00:00:00 Benson Roberson [facility] 1.2.840.114 350.1.13.10 4.2.7.2.686 [id number] 092 [id number] [facility] 2020-12-23 00:00:00 2020-12-23 00:00:00 Telephone Sarah Espinal [facility] 1.2.840.114 350.1.13.10 4.2.7.2.686 [id number] [facility] 2020-12-23 00:00:00 2020-12-23 00:00:00 Patient Secure Msg Doctor Unassigned, [place] [facility] 1.2.840.114 350.1.13.10 4.2.7.2.686 [id number] [facility] 2020-12-17 07:54:57 2020-12-17 23:59:00 Hospital Encounter Radiology [facility] 1.2.840.114 350.1.13.10 4.2.7.2.686 [id number] [facility] 2020-12-17 00:00:00 2020-12-17 00:00:00 Outpatient R RADIOLOGY [facility] [id number] [facility] 2020-11-25 13:48:41 2020-11-25 14:12:26 Office [facility] 1.2.840.114 350.1.13.10 4.2.7.2.686 [id number] 059 [id number] [facility] 2020-11-25 13:40:00 2020-11-25 13:40:00 [facility] [id number] [facility] 2020-11-14 00:00:00 2020-11-14 00:00:00 [facility] 1.2.840.114 350.1.13.10 4.2.7.2.686 [id number] 059 [id number] [facility] 2020-11-14 00:00:00 2020-11-14 00:00:00 [facility] 1.2.840.114 350.1.13.10 4.2.7.2.686 [id number] 059 [id number] [facility] 2020-11-12 12:08:00 2020-11-12 12:43:00 Surgery Gayatri Lobo [facility] 1.2.840.114 350.1.13.10 4.2.7.2.686 [id number] 020 [id number] [facility] 2020-11-12 12:08:00 2020-11-12 12:43:00 Surgery Gayatri Lobo [facility] 1.2.840.114 350.1.13.10 4.2.7.2.686 [id number] 020 [id number] [facility] 2020-11-12 10:46:00 2020-11-12 12:35:00 Hospital Encounter Gayatri Lobo [facility] 1.2.840.114 350.1.13.10 4.2.7.2.686 [id number] 071 [id number] [facility] 2020-11-12 10:46:00 2020-11-12 12:35:00 Hospital Encounter Gayatri Lobo [facility] 1.2.840.114 350.1.13.10 4.2.7.2.686 [id number] [id number] [facility] 2020-11-11 08:12:07 2020-11-11 08:27:07 Laboratory Only Only, Adc Test Ivy [facility] 1.2.840.114 350.1.13.10 4.2.7.2.686 [id number] [facility] 2020-11-11 08:12:07 2020-11-11 08:27:07 Laboratory Only Only, Adc Test Ivy [facility] 1.2.840.114 350.1.13.10 4.2.7.2.686 [id number] [facility] 2020-11-11 08:15:00 2020-11-11 08:15:00 Outpatient R [facility] [id number] [facility] 2020-10-24 00:00:00 2020-10-24 00:00:00 Orders Only Doctor Unassigned, [place] [facility] 1.2.840.114 350.1.13.10 4.2.7.2.686 [id number] [facility] 2020-10-08 18:34:00 2020-10-08 22:22:00 Emergency Mali Rosado [facility] 1.2.840.114 350.1.13.10 4.2.7.2.686 [id number] [id number] [facility] 2020-10-07 00:00:00 2020-10-07 00:00:00 Telephone Benson Castro [facility] Professio nal Building 1..840.114 350.1.13.10 4.2.7.2.686 [id number] 092 [id number] [facility] 2020-10-03 00:00:00 2020-10-03 00:00:00 Patient Secure Danya Bob [facility] PROFESSIO [facility] BUILDING 1..840.114 350.1.13.10 4.2.7.2.686 [id number] [facility] 2020-10-01 10:00:00 2020-10-01 10:00:00 Outpatient R EMMANUELLE SCHULTE [facility] [id number] [facility] 2020-10-01 00:00:00 2020-10-01 00:00:00 Orders Only Doctor Unassigned, [place] [facility] 1.840.114 350.1.13.10 4.2.7.2.686 [id number] [id number] [facility] 2020-09-26 08:11:48 2020-09-26 08:26:48 Laboratory Only Only, Adc Test Latricia Montana [facility] 1..840.114 350.1.13.10 4.2.7.2.686 [id number] [facility] 2020-09-26 08:00:00 2020-09-26 08:00:00 Outpatient R [facility] [id number] [facility] 2020-09-23 11:10:57 2020-09-23 11:46:21 Office Visit Benson Castro [facility] Building 1..840.114 350.1.13.10 4.2.7.2.686 [id number] 092 [id number] [facility] 2020-09-23 11:10:57 2020-09-23 11:46:21 Office Visit Benson Castro Keith [facility] Building 1.2.840.114 350.1.13.10 4.2.7.2.686 [id number] 2020-09-23 11:00:00 2020-09-23 11:00:00 Outpatient Sagar FITZGERALDMATTHEWBENSON PAREDES MATTHEWBENSON PAREDES [facility] [id number] [facility] 2020-09-17 00:00:00 2020-09-17 00:00:00 Orders Only Doctor Unassigned, [place] [facility] 1..840.114 350.1.13.10 4.2.7.2.686 [id number] [facility] 2020-08-27 11:24:21 2020-08-27 11:54:21 Office Visit Latasha Fernandez [facility] 1.2.840.114 350.1.13.10 4.2.7.2.686 [id number] [id number] [facility] 2020-08-27 11:30:00 2020-08-27 11:30:00 Outpatient LATASHA MAZARIEGOS STRAMATashia [facility] [id number] [facility] 2020-08-27 00:00:00 2020-08-27 00:00:00 Telephone Danya Singh [facility] 1.2.840.114 350.1.13.10 4.2.7.2.686 [id number] 059 [id number] [facility] 2020-08-25 14:02:06 2020-08-25 14:32:42 Office Visit Danya Singh [facility] 1.2.840.114 350.1.13.10 4.2.7.2.686 [id number] 059 [id number] [facility] 2020-08-25 14:00:00 2020-08-25 14:00:00 Outpatient DANYA CONTI [facility] [id number] [facility] 2020-08-25 00:00:00 2020-08-25 00:00:00 Orders Only Doctor Unassigned, [place] [facility] 1.2.840.114 350.1.13.10 4.2.7.2.686 [id number] 009 [id number] [facility] 2020-08-19 00:00:00 2020-08-19 00:00:00 Telephone MatthewBenson nix [facility] 1..840.114 350.1.13.10 4.2.7.2.686 [id number] [id number] [facility] 2020-08-13 14:00:00 2020-08-13 14:00:00 Outpatient LATASHA MAZARIEGOS STRAHIL [facility] [id number] [facility] 2020-07-31 15:26:34 2020-07-31 23:59:00 Hospital Encounter Matthew Benson Keith [facility] 1..840.114 350.1.13.10 4.2.7.2.686 [id number] [facility] 2020-07-31 15:26:34 2020-07-31 23:59:00 Outpatient BENSON CASEY HOWARD [facility] [id number] [facility] 2020-07-31 00:00:00 2020-07-31 00:00:00 Outpatient BENSON CASEY HOWARD [facility] [id number] [facility] 2020-07-30 00:00:00 2020-07-30 00:00:00 Telephone [facility]Benson [facility] 1..840.114 350.1.13.10 4.2.7.2.686 [id number] 092 [id number] [facility] 2020-07-29 00:00:00 2020-07-29 00:00:00 Patient Secure Msg Singh [facility] BUILDING 1.2.840.114 350.1.13.10 4.2.7.2.686 [id number] [facility] 2020-07-28 08:21:39 2020-07-28 08:36:39 Manager Play Visit Pob, 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 Francisco [facility] 1.2.840.114 350.1.13.10 4.2.7.2.686 [id number] [facility] 2020-07-28 08:30:00 2020-07-28 08:30:00 Outpatient R FRANCISCO [facility] [id number] [facility] 2020-07-28 00:00:00 2020-07-28 00:00:00 Telephone Benson Castro [facility] 1.2.840.114 350.1.13.10 4.2.7.2.686 [id number] 092 [id number] [facility] 2020-07-15 00:00:00 2020-07-15 00:00:00 Telephone Benson Castro [facility] 1.2.840.114 350.1.13.10 4.2.7.2.686 [id number] 092 [id number] [facility] 2020-07-14 14:38:23 2020-07-14 15:12:09 [facility] 1.2.840.114 350.1.13.10 4.2.7.2.686 [id number] 059 [id number] [facility] 2020-07-14 14:40:00 2020-07-14 14:40:00 Outpatient R DANYA SINGH [facility] [id number] [facility] 2020-07-12 01:24:00 2020-07-12 01:24:00 Outpatient Daniel_T VFP VFP [id number] [facility] 2020-07-10 00:00:00 2020-07-10 00:00:00 Samm Alexander MD: [id number], [address], [place] [address] , Ph. Daniel_T VFP [place] - [facility] - _HOU_René ow [place] [id number] [facility] 2020-07-01 12:13:16 2020-07-01 12:28:16 Manager Play Visit [facility] Sleep Lab Latasha Fernandez [facility] 1.84.114 350.1.13.10 4.2.7.2.686 [id number] [facility] 2020-07-01 12:00:00 2020-07-01 12:00:00 Outpatient R LATASHA FERNANDEZ STRAMATashia [facility] [id number] [facility] 2020-06-27 11:33:44 2020-06-27 11:48:44 Laboratory Only Only, [facility] Test Grzegorz Haynes [facility] 1.84.114 350.1.13.10 4.2.7.2.686 [id number] [facility] 2020-06-27 10:30:00 2020-06-27 10:30:00 Outpatient R [facility] [id number] [facility] 2020-06-27 00:00:00 2020-06-27 00:00:00 Orders Only Doctor Unassigned, [place] [facility] 1.84.114 350.1.13.10 4.2.7.2.686 [id number] [facility] 2020-06-20 00:00:00 2020-06-20 00:00:00 [facility] 1.2.840.114 350.1.13.10 4.2.7.2.686 [id number] 059 [id number] [facility] 2020-06-19 14:00:00 2020-06-19 14:00:00 [facility] [id number] [facility] 2020-06-15 00:00:00 2020-06-15 00:00:00 Patient Secure [facility] 1.2.840.114 350.1.13.10 4.2.7.2.686 [id number] 059 [id number] [facility] 2020-06-13 10:48:23 2020-06-13 23:59:00 [facility] 1.2.840.114 350.1.13.10 4.2.7.2.686 [id number] [facility] 2020-06-13 10:47:50 2020-06-13 11:02:50 Manager Play Visit Pob, 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 Francisco [facility] 1.2.840.114 350.1.13.10 4.2.7.2.686 [id number] [facility] 2020-06-13 09:10:33 2020-06-13 10:22:02 [facility] 1.2.840.114 350.1.13.10 4.2.7.2.686 [id number] 059 [id number] [facility] 2020-06-13 09:20:00 2020-06-13 09:20:00 [facility] [id number] [facility] 2020-06-09 00:00:00 2020-06-09 00:00:00 Telephone Matthew Benson Parker [facility] 1.2.840.114 350.1.13.10 4.2.7.2.686 [id number] 092 [id number] [facility] 2020-06-04 00:00:00 2020-06-04 00:00:00 Outpatient BENSON CSAEY HOWARD [facility] [id number] [facility] 2020-05-28 00:00:00 2020-05-28 00:00:00 Telephone Matthew Benson [facility] 1.2.840.114 350.1.13.10 4.2.7.2.686 [id number] [facility] 2020-05-27 00:00:00 2020-05-27 00:00:00 Patient Outreach Jose Raul Li [facility]AV[facility]ION 1.2.840.114 350.1.13.10 4.2.7.2.686 [id number] [facility] 2020-05-23 10:49:27 2020-05-23 11:04:27 Manager Play Visit 2, Adc Lab Matthew Benson [facility] 1.2.840.114 350.1.13.10 4.2.7.2.686 [id number] [facility] 2020-05-23 08:19:24 2020-05-23 10:59:14 Office Visit Benson Castro [facility] 1.2.840.114 350.1.13.10 4.2.7.2.686 [id number] [id number] [facility] 2020-05-23 08:40:00 2020-05-23 08:40:00 Outpatient BENSON CASEY HOWARD [facility] [id number] [facility] 2020-05-19 00:00:00 2020-05-19 00:00:00 Orders Only Doctor Unassigned, [place] [facility] 1..840.114 350.1.13.10 4.2.7.2.686 [id number] [facility] 2020-04-10 07:43:00 2020-04-10 07:43:00 Outpatient Daniel_T VFP VFP [id number] [facility] 2020-04-09 08:19:39 2020-04-09 08:34:39 Manager Play Visit Pob, 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 Marciano Elliott [facility] 1..840.114 350.1.13.10 4.2.7.2.686 [id number] [facility] 2020-04-09 08:15:00 2020-04-09 08:15:00 Outpatient MARCIANO NIXON [facility] [id number] [facility] 2020-04-09 00:00:00 2020-04-09 00:00:00 Orders Only Doctor Unassigned, [place] [facility] 1.2.840.114 350.1.13.10 4.2.7.2.686 [id number] [facility] 2020-03-14 03:25:00 2020-03-14 03:25:00 Outpatient Daniel_T VFP VFP [id number] [facility] 2020-03-01 01:02:00 2020-03-01 01:02:00 Outpatient Daniel_T VFP VFP [id number] [facility] 2020-02-11 07:53:00 2020-02-11 07:53:00 Outpatient Daniel_T VFP VFP [id number] [facility] 2020-02-07 00:00:00 2020-02-07 00:00:00 Samm Alexander MD: [id number] [facility] [address] [address] , Ph. Alex [facility] [place] - [facility] - VMRimma crawley [id number] [facility] 2020-01-08 08:00:00 2020-01-08 08:00:00 Outpatient MARCIANO NIXON [facility] [id number] [facility] 2020-01-08 07:39:55 2020-01-08 07:54:55 Manager Play Visit Pob, 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 1.849.114 350.1.13.10 4.2.7.2.686 [id number] [facility] 2020-01-08 00:00:00 2020-01-08 00:00:00 Orders Only Doctor Unassigned, [place] [facility] 1.84114 350.1.13.10 4.2.7.2.686 [id number] [facility] 2019-12-31 02:04:00 2019-12-31 02:04:00 Outpatient AlphonseCecelia [facility] [id number] [facility] 2019-12-24 00:00:00 2019-12-24 00:00:00 Samm Alexander MD: [id number] [address] , Ph. Alex [facility] [place] - [facility] - Rimma crawley [id number] [facility] 2019-12-18 07:41:51 2019-12-18 07:56:51 Manager Play Visit Pob, 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 [facility] 1.284.114 350.1.13.10 4.2.7.2.686 [id number] [facility] 2019-12-18 07:45:00 2019-12-18 07:45:00 Outpatient R MARCIANO ELLIOTT [facility] [id number] [facility] 2019-12-13 04:08:00 2019-12-13 04:08:00 Outpatient Daniel_T VFP VFP [id number] [facility] 2019-12-03 03:40:00 2019-12-03 03:40:00 Outpatient Daniel_T VFP VFP [id number] [facility] 2019-11-08 13:23:04 2019-11-08 13:38:04 Manager Play Visit Pob, 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 NcradhaMarciano reagan [facility] 1.840.114 350.1.13.10 4.2.7.2.686 [id number] [facility] 2019-11-08 13:15:00 2019-11-08 13:15:00 Outpatient R DAVISMARCIANO Reagan [facility] [id number] [facility] 2019-11-08 00:00:00 2019-11-08 00:00:00 Orders Only Doctor Unassigned, [place] [facility] 1.840.114 350.1.13.10 4.2.7.2.686 [id number] [facility] 2019-11-07 10:47:00 2019-11-07 10:47:00 Outpatient Daniel_T VFP VFP [id number] [facility] 2019-10-04 10:10:00 2019-10-04 23:59:00 Hospital Encounter LoboradhaMarciano reagan [facility] 1.840.114 350.1.13.10 4.2.7.2.686 [id number] [facility] 2019-10-04 10:15:33 2019-10-04 10:30:33 Manager Play Visit Pob, 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 Davisterrie Jorgesandip [facility] 1.840.114 350.1.13.10 4.2.7.2.686 [id number] [facility] 2019-10-04 00:00:00 2019-10-04 00:00:00 Outpatient MARCIANO NIXON [facility] [id number] [facility] 2019-08-23 16:12:00 2019-09-06 01:47:20 Inpatient HCAPM KEI [id number] [facility] 2019-08-23 16:16:00 2019-08-26 22:36:52 Inpatient HCAPM KEI [id number] 93 [facility] 2019-08-03 10:30:00 2019-08-03 10:30:00 Outpatient R THOR JAN [facility] [id number] [facility] 2019-08-03 09:58:47 2019-08-03 10:13:47 Manager Play Visit Pob, Adc Lab Elfego Valentine Jan [facility] Gail Dillon [facility] 1..840.114 350.1.13.10 4.2.7.2.686 [id number] [facility] 2019-08-03 00:00:00 2019-08-03 00:00:00 Orders Only Doctor Unassigned, [place] [facility] 1..840.114 350.1.13.10 4.2.7.2.686 [id number] [facility] 2019-06-06 00:00:00 2019-06-06 00:00:00 Transition of Care Yazmin Garber 1..840.114 350.1.13.10 4.2.7.2.686 [id number] [facility] 2019-06-03 20:41:23 2019-06-05 12:45:00 Inpatient X KATHLEEN SUSANNAH [facility] [id number] [place] [facility] 2019[facility]03 20:41:23 2019-06-05 12:45:00 Hospital Encounter Sb Escobar Adnan [facility] [id number] 350.1.13.10 [id number] [id number] [facility] 2019-06-03 20:41:23 2019-06-03 20:41:23 Emergency X SB ESCOBAR [facility] ERT [id number] [facility] 2019-04-27 02:15:54 2019-04-27 06:35:00 Emergency [facility] 1.2.840.114 [id number] 4.2.7.2.686 [id number] [facility] 2019-04-26 22:52:50 2019-04-27 01:20:00 Emergency X SIVA ALVAREZ [facility] ERT [id number] [facility] 2019-04-26 22:52:50 2019-04-27 01:20:00 Emergency X SIVA ALVAREZ [facility] ERT [id number] [facility] 2019-04-26 22:52:50 2019-04-27 01:20:00 Emergency Siva Alvarez [facility] [id number] [id number] [id number] [id number] [facility] Results Test Description Test Time Test Comments Results Result Co [facility] WITH [id number] 22:56:35* Test Item Value Reference Range Interpretation [...] g/dL 31.6-35.1 L RDW-SD (test code = 42123-1) 50.4 fL 39.0-49.9 H RDW-CV (test code = 788-0) 15.2 % 12.0-15.5 PLT (test code = 777-3) See_Comment [Automated messa ge] The system which generated this result transmitted reference range: 166 - 358 10*3/?L. The reference range was not used to interpret this result as normal/abnormal. MPV (test code = 59002-5) 10.0 fL 9.5-12.9 NRBC/100 WBC (test code = 6788165535) See_Comment [Automated [employer] ssage] The system which generated this result transmitted reference range: 0.0 - 10.0 /100 WBCs. The reference range was not used to interpret this result as normal/abnormal. NRBC x10^3 (test code = 7740097290) See_Comment [Automated [employer] ge] The system which generated this result transmitted reference range: 10*3/?L. The reference range was not used to interpret this result as normal/abnormal. GRAN MAT (NEUT) % (test code = 770-8) 73.0 % IMM GRAN % (test code = 2741782838) 0.30 % LYMPH % (test code = 736-9) 15.3 % MONO % (test code = 5905-5) 6.9 % EOS % (test code = 713-8) 3.9 % BASO % (test code = 706-2) 0.6 % GRAN MAT x10^3(ANC) (test code = 2943024541) 2.43 10*3/uL 1.88-7.09 IMM GRAN x10^3 (test code = 2136251501) 0.00-0.06 LYMPH x10^3 (test code = 731-0) 0.51 10*3/uL 1.32-3.29 L MONO x10^3 (test code = 742-7) 0.23 10*3/uL 0.33-0.92 L EOS x10^3 (test code = 711-2) 0.13 10*3/uL 0.03-0.39 BASO x10^3 (test code = 704-7) 0.01-0.07 Lab Interpretation (test code = 17652-6) [facility] MET[facility]OL[facility] [id number] 18:36:00* Test Item Value Reference Range Interpretation [...] N Completed by Nursing: NONT PRO-BRAIN NATRIURETIC [id number] 18:36:00* Test Item Value Reference Range Interpretation Comme nts NT PRO-BRAIN NATRIURETIC PEP TI (test code = PROBNP) 368 PG/ML 0-100 H Completed by Nursing: [id number]-[id number] 18:36:00* Test Item Value Reference Range Interpretation [...] Completed by Nursing: NODRUGS OF ABUSE SCREEN [id number] 18:36:00* Test Item Value Reference Range Interpretation [...] [place]) NEGATIVE SCcutoff <300 NG/ML BASIC METABOLIC [id number] 18:32:00* Test Item Value Reference Range Interpretation [...] N Completed by Nursing: NONT PRO-BRAIN NATRIURETIC [id number] 18:32:00* Test Item Value Reference Range Interpretation Comme nts NT PRO-BRAIN NATRIURETIC PEP TI (test code = PROBNP) PG/ML 0-100 Completed by Nursing: [id number] 18:32:00* Test Item Value Reference Range Interpretation Comme nts TROPONIN-I (test code = TROPI) NG/ML 0.000-0.045 Completed by Nursing: NOCBC W/AUTO [id number] 18:20:00* Test Item Value Reference Range Interpretation [...] NO DIFF/SCN CRITERIA - CT HEAD/BRAIN W/O [id number] 17:04:00Name: MORELIA MAYFIELD [facility] : 1970 Age/S: 49 / F [address] Unit #: [id number] Loc: [place] [address] Phys: Domenica Quinn MD Acct: [id number] Dis Date: Status: PRE ER PHONE #: [phone] Exam Date: 08/23/2019 1635 FAX #: Reason: syncope EXAMS: CPT: [id number] CT HEAD/BRAIN W/O CONT 42878 INDICATIONS: syncope TECHNIQUE: Contiguous axial CT sections [...] (1704) ScottieNB16 Orig Print D/T: S: 08/23/2019 (6584) PAGE 1 Signed Report Notes Date/Time Note Provider Source 2019-08-23 18:50:00 [id number] 6KdA8wGaEhRkYQwcoyhyLFGQ7rPq5 DTnVYS0IAXWcoiXxX1FUF07bmVT9e6j6ip1027-74-75P41:5 0:00 [facility] ([facility])EMERGENCY PROVIDER REPORTREPORT#:[id number] REPORT STATUS: SignedDATE:08/23/19 TIME:1849 PATIENT: MORELIA MAYFIELD UNIT #: [id number]#: [id number] ROOM/BED:: 68 AGE: 49 SEX: F PCP [...] date Free Text HPI NotesFree Text HPI Klxxn33-ttkp-jel female with past medical history of hypertension [...] % (Auto) (20.5 - 51.1 %) 22.1 [place] % (Auto) (1.7 - 9.3 %) 7.9 Eos % (Auto) (0.0 - 6.0 %) 2.5 Baso % (Auto) (0.0 - 2.0 %) 0.5 Neut # (Auto) (1.8 - 7.6 K/mm3) 4.0 Lymph # (Auto) (0.6 - 3.2 K/mm3) 1.3 [place] # (Auto) (0.3 - 1.1 K/mm3) 0.5 [...] Grier MD (PCP/Family) at 2018 RPT #: [id number] OF REPORTEDEmergency department iyptwk2447-66-37A20:50:00L.[id number] ilable for patient bfjbLGGVSECBJSUOTP9293-82-32K99:18:47 [facility] 2019-08-23 18:50:00 [id number] a+vbGz2qgCUP0VDavRDucSPKlPDQ2 B9ROESw4jvyI0kk2GtPHFPJxazdZJ0JH1i0458-86-74R84:5 0:00 [facility] ([facility])EMERGENCY PROVIDER REPORTREPORT#:[id number] REPORT STATUS: SignedDATE:08/23/19 TIME:1849 PATIENT: MORELIA MAYFIELD UNIT #: [id number]#: [id number] ROOM/BED:: 68 AGE: 49 SEX: F PCP PHYS: Jeet Manley MDSERVICE AUTHOR: Ly Lawler * ALL edits or amendments must be made on the electronic/computer document * Ly Lawler 08/23/19 5960:HPI-Dizziness/Weakness GeneralConfirmed Patient YesPatient Type New patient PresentationChief Complaint DizzyHx Obtained From PatientOnset Occurred GradualSymptom Duration Since onset, Waxes and wanesLocation HeadQuality AchingRadiationDoes not radiate. No: Arm R, Arm L, Shoulder, Jaw, Back, Abdomen, Leg L, Leg R. Severity: Onset ModerateSeverity: Current Moderate ContextImmunization Status General All up to date Free Text HPI NotesFree Text HPI Ugkkn06-nycm-eab female with past medical history of hypertension [...] % (Auto) (20.5 - 51.1 %) 22.1 [place] % (Auto) (1.7 - 9.3 %) 7.9 Eos % (Auto) (0.0 - 6.0 %) 2.5 Baso % (Auto) (0.0 - 2.0 %) 0.5 Neut # (Auto) (1.8 - 7.6 K/mm3) 4.0 Lymph # (Auto) (0.6 - 3.2 K/mm3) 1.3 [place] # (Auto) (0.3 - 1.1 K/mm3) 0.5 [...] 114 06/18 1910 O2 Delivery Room air 08/22 1909 Pulse [...] MidLv Saw Pt AloneI have reviewed the PA/DIETARY SUPERVISOR's note and plan of care. I was available for consultation as needed at all times during the patient's visit in the emergency department. I agree with the clinical impression, plan and disposition. at 2018 at 1001 RPT #: [id number] OF REPORTEDEmergency department talvso5451-74-21W74:50:00L.[id number] ilable for patient kmhiEZYTJUTEITEIUJ4138-65-28A08:01:50 HCAPM
[2023-08-23] MEDS ORDERED: CEFTRIAXONE 1000 MG/VIAL ONE (23:17)
[2023-08-23] MEDS ORDERED: INSULIN REGULAR (HUMAN) 100 UNIT/ML ONE (23:18)
[2023-08-23 23:29] LABS: Absolute Eosinophils 0.1 K/uL (0-0.5); Absolute Lymphocytes (CBC) 0.5 K/uL (0.7-4.9); Absolute Monocytes 0.3 K/uL (0.1-1.3); Absolute Neutrophil 3.9 K/uL (1.8-8.0); Basophils % 0.4 % (0-1.3); Eosinophils % 1.5 % (0-4.4); Hematocrit 29.4 % (36.0-45.0); Hemoglobin 9.6 g/dL (12.0-15.0); Lymphocytes % 10.3 % (15.3-44.8); MCH 30.3 pg (27.0-35.0); MCHC 32.7 g/dL (32.0-36.0); MCV 92.5 fL (80-100); MPV 9.4 fL (7.6-11.3); Monocytes % 6.4 % (3.3-12.3); Neutrophils % 81.4 % (41.7-73.7); Nucleated Red Blood Cells % 0.1 % (0-0); Platelets 179 thou/uL (152-406); RBC Red Blood Cell Count 3.17 M/uL (3.86-4.86); Red Cell Distribution Width 13.8 % (12.1-15.2)
[2023-08-23 23:30] LABS: PT Prothrombin Time 11.8 SECONDS (9.5-12.5); Protime INR 1.07
[2023-08-23] MEDS ORDERED: FUROSEMIDE 100 MG/10 ML VIAL IV ONE (23:32)
[2023-08-24 00:07] LABS: ALT/SGPT 31 U/L (13-56); Albumin 2.6 g/dL (3.4-5.0); Albumin/Globulin Ratio 0.7 (1.1-1.8); Alkaline Phosphatase 267 U/L (45-117); Anion Gap 12.6 mEq/L (5.0-15.0); BUN Blood Urea Nitrogen 76 mg/dL (7-18); Bicarbonate 27 mEq/L (21-32); Bilirubin Direct 0.2 mg/dL (0-0.2); Bilirubin Indirect, Calculated 0.2 mg/dL (0.2-0.8); Bilirubin Total 0.4 mg/dL (0.2-1.0); Glomerular Filtration Rate 10 ml/min (=/>90); Magnesium 2.2 mg/dL (1.6-2.4); Potassium 4.6 mEq/L (3.5-5.1); Protein, Total 6.6 g/dL (6.4-8.2); Sodium Level 129 mEq/L (136-145); Troponin High Sensitivity 45.7 pg/mL (<58.9)
[2023-08-24 00:08] LABS: AST/SGOT < 10 U/L (15-37); Glucose Level 566 mg/dL (74-106); NT PRO-BNP > 175000 pg/mL (<125)
[2023-08-24 01:55] LABS: Specific Gravity 1.009 (1.005-1.030); Sqamous Epithelial <5 /HPF (None Seen); Urine Bacteria 20-50 /HPF (<20); Urine Bilirubin NEGATIVE (Negative); Urine Blood 2+ (Negative); Urine Clarity Extremely Turbid (Clear); Urine Color Light-Yellow (Yellow); Urine Culture Reflex Order REFLEXED; Urine Glucose 4+ (Over) (Negative); Urine Ketones NEGATIVE (Negative); Urine Micro Reflex YN NO BILL MICROSCOPIC; Urine Mucus Slight /HPF (None Seen); Urine Nitrite 1+ (Negative); Urine Protein 2+ (Negative); Urine Urobilinogen Normal (Normal); Urine WBC >50 /HPF (<5); Urine WBC Clump Occasional /HPF (None Seen); Urine pH 5.5 (5.0-7.0)
--- NOTE | 2023-08-24 04:29 | ER ---
Nurse's Notes [facility] Name: Alyson Mayfield Age: 53 yrs Sex: Female : 1970 Arrival Date: 08/23/2023 Time: 21:50 Bed 25 Private MD: Diagnosis: Chest pain, unspecified;Pleural effusion in other conditions classified elsewhere;Diffuse anasarca, large right-sided pleural effusion, elevated alkaline phosphatase,, Urinary Tract Infection , Generalized weakness , Uncontrolled Diabetes with Hyperglycemia Presentation: 08/22 22:11 Chief complaint: Patient states: swelling of both legs started last Tuesday and bm8 complaints of high blood sugar. Coronavirus screen: Vaccine status: Patient reports being unvaccinated. Ebola Screen: Patient denies travel to an Ebola-affected area in the 21 days before illness onset. Initial Sepsis Screen: Does the patient meet any 2 criteria? No. Patient's initial sepsis screen is negative. Does the patient have a suspected source of infection? No. Patient's initial sepsis screen is negative. Risk Assessment: Do you want to hurt yourself or someone else? Patient reports no desire to harm self or others. Onset of symptoms was August 19, 2023. 22:11 Method Of Arrival: Ambulatory bm8 22:11 Acuity: KLAUS 3 bm8 Triage Assessment: 22:18 General: Appears uncomfortable, Behavior is calm, cooperative. Pain: Denies pain. Derm: bm8 Musculoskeletal: Swelling present in right leg and left leg. 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 - Infectious Disease History:: Denies. - Social history:: Smoking status: Patient/guardian denies using tobacco, the patient reports quitting approximately 30 years ago. - Family history:: not pertinent. Screenin:37 [facility] ED Fall Risk Assessment (Adult) History of falling in the last 3 months, bm8 including since admission No falls in past 3 months (0 pts) Confusion or Disorientation No (0 pts) Intoxicated or Sedated No (0 pts) Impaired Gait No (0 pts) Mobility Assist Device Used No (0 pt) Altered Elimination No (0 pt) Score/Fall Risk Level 0 - 2 = Low Risk Oriented to surroundings, Maintained a safe environment, Educated pt \T\ family on fall prevention, incl call for assistance when getting out of bed, Assessed \T\ reinforced patient's understanding of fall precautions. Abuse screen: Denies threats or abuse. Nutritional screening: No deficits noted. Tuberculosis screening: No symptoms or risk factors identified. Assessment: 23:37 Reassessment: Patient appears in no apparent distress at this time. Patient and/or bm8 family updated on plan of care and expected duration. Pain level reassessed. Patient is alert, oriented x 3, equal unlabored respirations, skin warm/dry/pink. General: Appears in no apparent distress. comfortable, Behavior is calm, cooperative, appropriate for age. Pain: Denies pain. Neuro: Level of Consciousness is awake, alert, obeys commands, Oriented to person, place, time, situation, Appropriate for age. Cardiovascular: Reports edema Heart tones S1 S2 present Capillary refill < 3 seconds Patient's skin is warm and dry. Rhythm is sinus rhythm. Respiratory: No deficits noted. Airway is patent Respiratory effort is even, unlabored, Respiratory pattern is regular, symmetrical, Breath sounds are clear bilaterally. GI: No signs and/or symptoms were reported involving the gastrointestinal system. : No signs and/or symptoms were reported regarding the genitourinary system. EENT: No signs and/or symptoms were reported regarding the EENT system. Derm: No signs and/or symptoms reported regarding the dermatologic system. Musculoskeletal: Reports swelling in bilateral legs up to thigh. 4+ pitting edema. pt also report swelling in abd and face. 08/23 02:44 Reassessment: Patient appears in no apparent distress at this time. Patient and/or bm8 family updated on plan of care and expected duration. Pain level reassessed. Patient is alert, oriented x 3, equal unlabored respirations, skin warm/dry/pink. pt is resting with eyes closed breathing is even unlabored. Patient states feeling better. 04:32 Reassessment: Patient appears in no apparent distress at this time. No changes from bm8 previously documented assessment. Patient and/or family updated on plan of care and expected duration. Pain level reassessed. Patient is alert, oriented x 3, equal unlabored respirations, skin warm/dry/pink. pt informed of need to transfer. currently searching for an accepting facility. 06:05 Reassessment: Patient appears in no apparent distress at this time. No changes from bm8 previously documented assessment. Patient and/or family updated on plan of care and expected duration. Pain level reassessed. Patient is alert, oriented x 3, equal unlabored respirations, skin warm/dry/pink. Patient denies pain at this time. 06:45 Reassessment: attempted to give report at 0610, floor declined stating that they did bm8 not have tele for that floor. escalated problem to Charge and pulling unit floorhand. They were able to change bed in the same hospital. Called that floor (7 tower) 0631 and placed on hold for another 13 mins before someone got on to say they were starting shift huddle and the assigned nurse could not take report. Asked to speak to the charge nurse and again was told that the floor was going to start huddle please call back after 7 am. Informed my charge nurse of situation and we moved forward with the transfer. Vital Signs: 08/22 22:11 BP 173 / 88; Pulse 72; Resp 18; Temp 98.2; Pulse Ox 97% on R/A; Weight 60.65 kg; Height bm8 5 ft. 2 in. ; Pain 0/10; 23:37 BP 158 / 88; Pulse 75; Resp 18; Temp 98.2; Pulse Ox 96% on R/A; Pain 0/10; bm8 08/23 02:44 BP 152 / 85; Pulse 67; Resp 20; Temp 98.2; Pulse Ox 97% ; Pain 0/10; bm8 04:23 BP 143 / 75; Pulse 69; Resp 19; Temp 97.8; Pulse Ox 100% on R/A; Pain 0/10; rg5 06:05 BP 137 / 72; Pulse 66; Resp 18; Temp 98; Pulse Ox 98% on R/A; Pain 0/10; bm8 08/22 22:11 Body Mass Index 24.45 (60.65 kg, 157.48 cm) bm8 08/22 22:11 Pain Scale: Adult bm8 23:37 Pain Scale: Adult bm8 08/23 02:44 Pain Scale: Adult bm8 04:23 Pain Scale: Adult rg5 06:05 Pain Scale: Adult bm8 Soledad Coma Score: 08/22 23:37 Eye Response: spontaneous(4). Motor Response: obeys commands(6). Verbal Response: bm8 oriented(5). Total: 15. 08/23 02:44 Eye Response: spontaneous(4). Motor Response: obeys commands(6). Verbal Response: bm8 oriented(5). Total: 15. 03:52 Eye Response: spontaneous(4). Motor Response: obeys commands(6). Verbal Response: sp4 oriented(5). Total: 15. 04:32 Eye Response: spontaneous(4). Motor Response: obeys commands(6). Verbal Response: bm8 oriented(5). Total: 15. ED Course: 08/22 21:52 Patient arrived in ED. mr 21:53 Lee Leija MD is Attending Physician. sp4 22:18 Triage completed. bm8 22:37 XRAY Chest (1 view) In Process Unspecified. EDMS 23:12 Matthieu Black, RN is Primary Nurse. bm8 23:12 Door closed. Noise minimized. kmf 23:12 Inserted saline lock: 22 gauge in left antecubital area, using aseptic technique. Blood kmf collected. 23:12 Initial lab(s) drawn, by ks, sent to lab. kmf 23:13 Basic Metabolic Panel Sent. kmf 23:13 CBC with Diff Sent. kmf 23:13 LFT's Sent. kmf 23:13 Magnesium Sent. kmf 23:13 NT PRO-BNP Sent. kmf 23:13 PT-INR Sent. kmf 23:13 Troponin HS Sent. kmf 23:37 Patient has correct armband on for positive identification. Bed in low position. Side bm8 rails up X 1. Provided Education on: need for admission. Client placed on continuous cardiac and pulse oximetry monitoring. NIBP monitoring applied. motor brakeman on. Pulse ox on. NIBP on. 23:37 No provider procedures requiring assistance completed. EKG done, by ED staff, reviewed bm8 by Lee Leija MD. O2 via pt on RA at this time. 23:41 Arm band placed on right wrist. Patient placed. bm8 08/23 03:06 CT Chest Abdomen Pelvis W/O Contrast In Process Unspecified. EDMS 04:27 [facility] TC called to initiate transfer, spoke with Argelia. ty 06:51 Patient transferred, IV remains in place. bm8 Administered Medications: 08/22 23:20 Drug: Insulin Regular Human IVP 10 units IVP once {Co-Signature: vc1 (Albina Dubon bm8 RN).} Route: IVP; Site: left antecubital; 23:30 Follow up: Response: No adverse reaction bm8 08/23 04:34 Follow up: Response: No adverse reaction bm8 08/22 23:30 Drug: Rocephin - Rocephin (cefTRIAXone) IVPB 1 grams IVPB once over 30 mins; (mix in 50 bm8 mL NS) Route: IVPB; Infused Over: 30 mins; Site: left antecubital; 08/23 04:34 Follow up: Response: No adverse reaction; IV Status: Completed infusion; IV Intake: 42ieiz0 08/22 23:41 Drug: Furosemide IVP 100 mg IVP once; give over 2 minutes Route: IVP; Site: left bm8 antecubital; 08/23 04:35 Follow up: Response: No adverse reaction bm8 01:02 Not Given (Patient Refused): diazepam2 mg PO once bm8 Medication: 08/22 23:37 VIS not applicable for this client. bm8 Intake: 08/23 04:34 IV: 50ml; Total: 50ml. bm8 Outcome: 04:28 ER care complete, transfer ordered by spKelsie 06:51 Transferred by ground EMS to [facility], [facility], Transfer form completed. bm8 X-rays sent w/ patient. 06:51 Condition: stable 06:51 Instructed on the need for transfer, 07:20 Patient left the ED. ko1 Signatures: Dispatcher [employer] EDMD DaleyKristyn mccoy, Reg Reg mr Divya Dalal, RN RN ko1 Lee Leija MD MD sp4 Caroline David Tylor ty McDonald, Brad RN RN bm8 Bg Dove RN RN rg5 Albina Dubon RN vc1 Corrections: (The following items were deleted from the chart) 08/22 22:23 22:18 PMHx: Dialysis M; bm8 bm8
--- NOTE | 2023-08-24 04:29 | EDPHYS ---
Physician Documentation [facility] Name: Alyson Mayfield Age: 53 yrs Sex: Female : 1970 Arrival Date: 08/23/2023 Time: 21:50 Bed 25 Private MD: ED Physician Lee Leija HPI: 08/22 21:53 This 53 yrs old Female presents to ER via Unassigned with complaints of High sp4 Blood Sugar, Swelling of Lower Extremity. 22:48 53-year-old female presents with bilateral lower extremity edema associated with edema sp4 all the way up to the lower abdomen. Patient also reported blood sugar was high at home above 500. Specific values not registering on the glucometer. Patient states yesterday she was not dialyzed because her blood sugar was too high for dialysis unit to administer hemodialysis. . 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 - Infectious Disease History:: Denies. - Social history:: Smoking status: Patient/guardian denies using tobacco, the patient reports quitting approximately 30 years ago. - Family history:: not pertinent. ROS: 08/23 03:52 Constitutional: Negative for fever, chills, and weight loss, positive elevated blood sp4 sugar, positive bilateral lower extremity edema, positive shortness of breath All other systems are negative, Exam: 03:52 Constitutional: This is a well developed, well nourished patient who is awake, alert, sp4 and in no acute distress. Head/Face: Normocephalic, atraumatic. Eyes: Pupils equal round and reactive to light, extra-ocular motions intact. Lids and lashes normal. Conjunctiva and sclera are not injected. Cornea within normal limits. Periorbital areas with no swelling, redness, or edema. ENT: Nares patent. No nasal discharge, no septal abnormalities noted. Tympanic membranes are normal and external auditory canals are clear. Oropharynx with no redness, swelling, or masses, exudates, or evidence of obstruction, uvula midline. Mucous membranes moist. Neck: Trachea midline, no thyromegaly or masses palpated, and no cervical lymphadenopathy. Supple, full range of motion without nuchal rigidity, or vertebral point tenderness. Chest/axilla: Normal chest wall appearance and motion. Nontender with no deformity. No lesions are appreciated. Cardiovascular: Regular rate and rhythm with a normal S1 and S2. No gallops, murmurs, or rubs. Normal PMI, no JVD. No pulse deficits. Respiratory: Lungs have equal breath sounds bilaterally, clear to auscultation and percussion. No rales, rhonchi or wheezes noted. No increased work of breathing, no retractions or nasal flaring. Abdomen/GI: Soft, with normal bowel sounds. No distension or tympany. No guarding or rebound. No evidence of tenderness throughout. Back: No spinal tenderness. No costovertebral tenderness. Skin: Warm, dry with normal turgor. Normal color with no rashes, no lesions, and no evidence of cellulitis. MS/ Extremity: Pulses equal, no cyanosis. Neurovascular intact. Full, normal range of motion. Bilateral lower extremity pitting edema. Neuro: Awake and alert, GCS 15, oriented to person, place, time, and situation. Cranial nerves II-XII grossly intact. Motor strength 5/5 in all extremities. Sensory grossly intact. Psych: Awake, alert, with orientation to person, place and time. Behavior, mood, and affect are within normal limits 04:31 ECG was reviewed by the Attending Physician. EKG at 2315 normal sinus rhythm at the sp4 rate of 70, prolonged QT otherwise normal Vital Signs: 08/22 22:11 BP 173 / 88; Pulse 72; Resp 18; Temp 98.2; Pulse Ox 97% on R/A; Weight 60.65 kg; Height bm8 5 ft. 2 in. ; Pain 0/10; 23:37 BP 158 / 88; Pulse 75; Resp 18; Temp 98.2; Pulse Ox 96% on R/A; Pain 0/10; bm8 06/19 02:44 BP 152 / 85; Pulse 67; Resp 20; Temp 98.2; Pulse Ox 97% ; Pain 0/10; bm8 04:23 BP 143 / 75; Pulse 69; Resp 19; Temp 97.8; Pulse Ox 100% on R/A; Pain 0/10; rg5 06:05 BP 137 / 72; Pulse 66; Resp 18; Temp 98; Pulse Ox 98% on R/A; Pain 0/10; bm8 08/22 22:11 Body Mass Index 24.45 (60.65 kg, 157.48 cm) bm8 08/22 22:11 Pain Scale: Adult bm8 23:37 Pain Scale: Adult bm8 08/23 02:44 Pain Scale: Adult bm8 04:23 Pain Scale: Adult rg5 06:05 Pain Scale: Adult bm8 [place] Coma Score: 08/22 23:37 Eye Response: spontaneous(4). Motor Response: obeys commands(6). Verbal Response: bm8 oriented(5). Total: 15. 08/23 02:44 Eye Response: spontaneous(4). Motor Response: obeys commands(6). Verbal Response: bm8 oriented(5). Total: 15. 03:52 Eye Response: spontaneous(4). Motor Response: obeys commands(6). Verbal Response: sp4 oriented(5). Total: 15. 04:32 Eye Response: spontaneous(4). Motor Response: obeys commands(6). Verbal Response: bm8 oriented(5). Total: 15. MDM: 08/22 23:49 Patient medically screened. sp4 08/23 04:17 ED course: EXAM DESCRIPTION: Chest Abd Pelvis Wo Con 08/24/2023 4:08 AM CDT CLINICAL sp4 HISTORY: 53 years, Female, hepatitis COMPARISON: 07/16/2023 PROCEDURE: Contrast-enhanced images of the chest, abdomen and pelvis were performed utilizing 5 mm slice thickness at 5 mm interval reconstruction from the lung apices to the ischial tuberosities after the administration of IV contrast. In addition multiplanar reformats in the coronal and sagittal plane were obtained and reviewed. An individualized dose optimization technique, Automated Exposure Control, was utilized for the performed procedure. FINDINGS: CHEST: Lower neck: Visualized thyroid gland and soft tissues are normal. No adenopathy. Lungs: Compressive atelectatic changes bilateral lower lungs and medial aspect right middle lobe Airways: The trachea mainstem bronchus demonstrate to be unremarkable. Pleural: Moderate right pleural effusion with compressive atelectatic changes. Small trace left pleural effusion. No evidence for pneumothorax. Mediastinum and lymph nodes: No significant mediastinal and/or hilar lymphadenopathy. The axillary regions demonstrate to be clear. Heart: Moderate enlarged. There is a right IJ tunnel dialysis catheter in place Coronary: Moderate coronary calcification. Aorta: There is mild intimal aortic arch calcification Pulmonary arteries: The pulmonary arteries were not evaluated due to lack of IV contrast. Osseous structures and chest wall: The thoracic spine demonstrate to be within normal limits. No evidence for compression deformities and/or significant skeletal lesions. Haziness throughout the skin/subcutaneous tissue correspond to anasarca ABDOMEN AND PELVIS: Liver: Grossly the unopacified liver demonstrates to be normal, no focal lesions are identified. Gallbladder: The gallbladder demonstrate to be normal. Adrenal glands: Grossly the unopacified adrenal glands demonstrate to be normal. Pancreas: The pancreas demonstrate to be normal. Spleen: The spleen demonstrate to be normal. Kidneys: Grossly the unopacified kidneys demonstrate to be partially atrophic with vascular calcifications. There is no evidence for significant nephrolithiasis and/or hydronephrosis. There are no significant cystic lesions. GI: Grossly the unopacified stomach, small bowel and large bowel demonstrate to be within normal limits. No evidence for bowel dilatation and/or free air. The appendix is normal. The left-sided colon demonstrate to be decompressed with no gross abnormalities. : The urinary bladder demonstrate to be unremarkable. Genitalia: The uterus demonstrate to be within normal limits. There are normal adnexal structures. Abdominal aorta: The aorta demonstrate minimal atherosclerosis with a atherosclerotic disease small caliber vessels. Retroperitoneum:There is no retroperitoneal lymphadenopathy. There is no evidence for ascites and/or abnormal fluid collections. Bones: The bony structures demonstrate to be within normal limits. Soft tissues: There is haziness within the skin/subcutaneous tissue corresponding to anasarca. IMPRESSION: Moderate right pleural effusion with compressive atelectatic changes. Small trace left pleural effusion. Cardiomegaly with coronary artery calcifications. Right IJ tunnel dialysis catheter in place. Haziness throughout the skin/subcutaneous tissue corresponding to anasarca. Atrophic kidneys with no evidence for significant nephrolithiasis and/or hydronephrosis. Electronically signed by: Anton Espana MD 08/24/2023 04:13 AM. 04:29 Differential diagnosis: diabetes insipidus, DKA, hyperglycemia, hyperthyroidism, sp4 myxedema coma, new onset diabetes. Data reviewed: vital signs, nurses notes, lab test result(s), EKG, radiologic studies, CT scan, plain films. ED course: EXAM DESCRIPTION: Chest Single View 08/23/2023 10:55 PM CDT CLINICAL HISTORY: 53 years, Female, CHEST PAIN COMPARISON: 08/18/2023 FINDINGS: 1 views of the chest was obtained. Prior films were compared. There is slight decreased lung volume. Again there is a right IJ tunnel dialysis catheter within the cavoatrial junction in good position. Mediastinum: The cardiomediastinal silhouette is enlarged. Lungs: There is a focal area of airspace opacity within the right lower lung zone. Heart: The heart is prominent. Thoracic aorta: The thoracic aorta demonstrate to be mildly tortuous. Pulmonary vasculature: The pulmonary vasculature is normal in distribution. Pleura: There is a small right pleural effusion with compressive atelectatic changes and/or infiltrate. Very minimal trace of left pleural effusion. Osseous structures: The bony structures demonstrate to be within normal limits. Other: None. IMPRESSION: Focal area of airspace opacity right lower lung zone. Small right pleural effusion with compressive atelectatic changes and/or infiltrate. Very minimal trace of left pleural effusion. . 04:30 Consideration of Admission/Observation Escalation of care including sp4 admission/observation considered. ED course: This is patient's fourth ER visit this month for elevated blood sugars generalized weakness shortness of breath. Patient blood sugar today was 566. At this time she also presents with generalized anasarca, moderate diffuse edema on exam especially lower extremities. Worsening dyspnea. CT has revealed large size pleural effusion. Will request transfer for management of uncontrolled diabetes. Also will request hemodialysis in the hospital. Since there is no beds available here at [facility] will request transfer to [facility]. . 08/22 22:04 Order name: Basic Metabolic Panel; Complete Time: 00:25 sp4 08/22 22:04 Order name: CBC with Diff; Complete Time: 00:25 sp4 08/22 22:04 Order name: LFT's; Complete Time: 00:25 sp4 08/22 22:04 Order name: Magnesium; Complete Time: 00:25 sp4 08/22 22:04 Order name: NT PRO-BNP; Complete Time: 00:25 sp4 08/22 22:04 Order name: PT-INR; Complete Time: 00:25 sp4 08/22 22:04 Order name: Troponin HS; Complete Time: 00:25 sp4 08/22 22:47 Order name: Urinalysis W/Microscopic; Complete Time: 02:16 sp4 08/22 23:15 Order name: Glucose, Ancillary Testing; Complete Time: 00:25 EDMS 08/23 04:06 Order name: Glucose, Ancillary Testing; Complete Time: 04:18 EDMS 08/23 06:10 Order name: Glucose, Ancillary Testing; Complete Time: 06:17 EDMS 08/22 22:04 [facility] 08/[facility] 02:17 Order name: CT Chest Abdomen Pelvis W/O Contrast 4 08/22 22:04 Order name: Cardiac monitoring; Complete Time: 23:31 4 08/22 22:04 Order name: EKG - Nurse/Tech; Complete Time: 23:12 sp4 08/22 22:04 Order name: IV Saline Lock; Complete Time: 23:12 sp4 08/22 22:04 Order name: Labs collected and sent; Complete Time: 23:12 sp4 08/22 22:04 Order name: O2 Per Protocol; Complete Time: 23:31 sp4 08/22 22:04 Order name: O2 Sat Monitoring; Complete Time: 23:31 4 08/22 22:47 Order name: Accucheck Blood Glucose; Complete Time: 23:13 sp4 EC:31 Rate is 70 beats/min. Rhythm is regular, Normal Sinus Rhythm. QRS [place] is Normal. [place] sp4 interval is normal. QRS interval is normal. QT interval is prolonged. No Q waves. T waves are Normal. No ST changes noted. Clinical impression: No evidence of ischemia. Interpreted by me. Reviewed by me. Administered Medications: 08/22 23:20 Drug: Insulin Regular Human IVP 10 units IVP once {Co-Signature: vc1 (Albina Dubon bm8 RN).} Route: IVP; Site: left antecubital; 23:30 Follow up: Response: No adverse reaction 8 08/23 04:34 Follow up: Response: No adverse reaction bm8 08/22 23:30 Drug: Rocephin - Rocephin (cefTRIAXone) IVPB 1 grams IVPB once over 30 mins; (mix in 50 bm8 mL NS) Route: IVPB; Infused Over: 30 mins; Site: left antecubital; 08/23 04:34 Follow up: Response: No adverse reaction; IV Status: Completed infusion; IV Intake: [id number] 08/22 23:41 Drug: Furosemide IVP 100 mg IVP once; give over 2 minutes Route: IVP; Site: left bm8 antecubital; 08/23 04:35 Follow up: Response: No adverse reaction bm8 01:02 Not Given (Patient Refused): diazepam2 mg PO once bm8 Disposition Summary: 08/24/23 04:28 Transfer Ordered Notes: Reason: Higher level of care sp4 Condition: Stable sp4 Problem: new sp4 Symptoms: have improved sp4 Transfer Location: [facility](08/24/23 06:17) sp4 Accepting Physician: [facility] Attending (08/24/23 07:20) ko1 Diagnosis - Chest pain, unspecified sp4 - Pleural effusion in other conditions classified elsewhere sp4 - Diffuse anasarca, large right-sided pleural effusion, elevated alkaline sp4 phosphatase,, Urinary Tract Infection , Generalized weakness , Uncontrolled Diabetes with Hyperglycemia Forms: - Medication Reconciliation Form sp4 - SBAR form sp4 Signatures: Dispatcher [employer] EDDivya Fleming RN RN ko1 Lee Leija MD MD sp4 Matthieu Black RN RN bm8 Albina Dubon RN vc1 Corrections: (The following items were deleted from the chart) 08/22 22:23 22:18 PMHx: Dialysis M; bm8 bm8 08/23 06:17 04:28 [facility] Attending sp4 sp4 06:17 04:28 [facility] ch[facility] sp4 07:20 06:17 Gita Irving Attending MD doherty ko1
[2023-08-24 07:34] VITALS: BP 137/72; TEMP 98; O2SAT 98
== END 2023-08-24 07:20 | disposition short-term general hospital (02) ==
LOC: ER 21:50
DX: R07.9 Chest pain, unspecified (principal); J91.8 Pleural effusion in other conditions classified elsewhere; R60.1 Generalized edema; E11.65 Type 2 diabetes mellitus with hyperglycemia; N39.0 Urinary tract infection, site not specified; R53.1 Weakness; R74.8 Abnormal levels of other serum enzymes; Z99.2 Dependence on renal dialysis
CPT/HCPCS: 85025; 80048; 36415; 83735; 85610; 82947; 80076; 84484; 83880; 71045; J0696; 71250; 74176; 81001; 93005; Q9967

== ENCOUNTER 2023-09-01 13:41 | Inpatient (IN) | payer OTHER, SELFPAY ==
[2023-09-01 15:00] LABS: Absolute Eosinophils 0.1 K/uL (0-0.5); Absolute Lymphocytes (CBC) 0.4 K/uL (0.7-4.9); Absolute Monocytes 0.4 K/uL (0.1-1.3); Absolute Neutrophil 4.2 K/uL (1.8-8.0); Basophils % 0.8 % (0-1.3); Eosinophils % 1.1 % (0-4.4); Hematocrit 20.2 % (36.0-45.0); Hemoglobin 6.7 g/dL (12.0-15.0); Lymphocytes % 7.8 % (15.3-44.8); MCHC 33.1 g/dL (32.0-36.0); MCV 90.6 fL (80-100); MPV 8.2 fL (7.6-11.3); Monocytes % 7.5 % (3.3-12.3); Neutrophils % 82.8 % (41.7-73.7); Nucleated Red Blood Cells % 0.1 % (0-0); Platelets 258 thou/uL (152-406); RBC Red Blood Cell Count 2.23 M/uL (3.86-4.86); Red Cell Distribution Width 13.3 % (12.1-15.2)
--- NOTE | 2023-09-01 15:04 | RAD REPORT ---
EXAM DESCRIPTION: Gustavo Single View09/01/2023 2:34 pm CLINICAL HISTORY: Shortness of breath COMPARISON: August 24, 2023 FINDINGS: Moderate to large right pleural effusion with basilar atelectasis Pulmonary vascular congestion present Heart is enlarged. Central venous line place IMPRESSION: Moderate to large right pleural effusion
[2023-09-01 15:15] LABS: Protime INR 1.19
[2023-09-01 15:47] LABS: Anion Gap 9.6 mEq/L (5.0-15.0); Potassium 3.6 mEq/L (3.5-5.1)
[2023-09-01] MEDS ORDERED: FUROSEMIDE 20 MG/ 2ML VIAL ONE (17:07)
[2023-09-01] MEDS ORDERED: FUROSEMIDE 40 MG/4 ML VIAL ONE (17:07)
--- NOTE | 2023-09-01 17:07 | ER ---
Nurse's Notes [facility] Name: Alyson Mayfield Age: 53 yrs Sex: Female : 1970 Arrival Date: 09/01/2023 Time: 13:41 Bed 18 Private MD: Diagnosis: Pleural effusion, not elsewhere classified;Anemia, unspecified;Acute respiratory failure with hypoxia Presentation: 08/31 13:59 Chief complaint: Patient states: SOB for 2-3 days, worse today. Weak, fatigue easily. ll1 Released [address] [facility] in [place] last Tuesday for fluid on the lungs. Coronavirus screen: Client denies travel out of the [place] in the last 14 days. At this time, the client does not indicate any symptoms associated with coronavirus-19. Ebola Screen: Patient denies travel to an Ebola-affected area in the 21 days before illness onset. Initial Sepsis Screen: Does the patient meet any 2 criteria? No. Patient's initial sepsis screen is negative. Does the patient have a suspected source of infection? No. Patient's initial sepsis screen is negative. Risk Assessment: Do you want to hurt yourself or someone else? Patient reports no desire to harm self or others. Onset of symptoms was August 30, 2023. 13:59 Method Of Arrival: Ambulatory ll1 13:59 Acuity: KLAUS 2 ll1 Triage Assessment: 13:59 General: Appears uncomfortable, ill, Behavior is calm, cooperative, appropriate for ll1 age. General: Reports feeling ill for fatigue for. Pain: Denies pain. Respiratory: Reports shortness of breath the patient has moderate shortness of breath. 19:13 Respiratory: Onset: The symptoms/episode began/occurred. 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 - Infectious Disease History:: Denies. - Social history:: Smoking status: Patient denies any tobacco usage or history of. Screenin:53 [facility] ED Fall Risk Assessment (Adult) History of falling in the last 3 months, al5 including since admission No falls in past 3 months (0 pts) Confusion or Disorientation No (0 pts) Intoxicated or Sedated No (0 pts) Impaired Gait No (0 pts) Mobility Assist Device Used No (0 pt) Altered Elimination No (0 pt) Score/Fall Risk Level 0 - 2 = Low Risk Oriented to surroundings, Maintained a safe environment, Hourly rounding (assess needs \T\ fall precautionary measures) done. 18:27 Abuse screen: Denies threats or abuse. Denies injuries from another. Nutritional al5 screening: No deficits noted. Tuberculosis screening: No symptoms or risk factors identified. Assessment: 15:37 General: Appears in no apparent distress. ill, Behavior is calm, cooperative. Pain: al5 Denies pain. Neuro: Level of Consciousness is awake, alert, obeys commands, Oriented to person, place, time, situation, Speech is normal, Facial symmetry appears normal. Cardiovascular: Patient's skin is warm and dry. Rhythm is sinus rhythm. Respiratory: Airway is patent Trachea midline Respiratory effort is even, unlabored, Respiratory pattern is regular, wearing 3L O2 NC. Breath sounds are clear in left upper lobe and left lower lobe Breath sounds are diminished in right upper lobe, right middle lobe and right lower lobe. Derm: Skin is intact, Skin is pink, warm \T\ dry. normal, Skin temperature is warm. 15:56 Respiratory: Breath sounds are clear in left lower lobe and left upper lobe Breath al5 sounds are diminished in right upper lobe, right middle lobe and right lower lobe. 17:00 Reassessment: No changes from previously documented assessment. al5 18:57 Reassessment: No changes from previously documented assessment. al5 19:08 Reassessment: Patient and/or family updated on plan of care and expected duration. Pain rg5 level reassessed. Patient is alert, oriented x 3, equal unlabored respirations, skin warm/dry/pink. Vital Signs: 13:59 BP 142 / 67; Pulse 74; Resp 22; Temp 97.7; Pulse Ox 90% on R/A; Weight 54.43 kg; Height ll1 5 ft. 2 in. ; Pain 0/10; 14:06 Resp 20; Pulse Ox 100% on 2 lpm NC; ll1 15:54 BP 150 / 74; Pulse 78; Resp 18; Pulse Ox 100% on 3 lpm NC; al5 19:08 BP 137 / 96; Pulse 77; Resp 18; Temp 97.9; Pulse Ox 100% on 3 lpm NC; Pain 0/10; rg5 13:59 Body Mass Index 21.95 (54.43 kg, 157.48 cm) ll1 13:59 Pain Scale: Adult ll1 19:08 Pain Scale: Adult rg5 ED Course: 13:43 Patient arrived in ED. mg5 13:59 Annie Tony MD is Attending Physician. gb1 14:00 Triage completed. ll1 14:00 Arm band placed on. ll1 14:36 XRAY Chest (1 view) In Process Unspecified. EDMS 14:54 Initial lab(s) drawn, by me, sent to lab. Inserted saline lock: 20 gauge in left em1 forearm, using aseptic technique. Blood collected. 15:51 America Allen, ROB is Primary Nurse. al5 15:51 Notified ED physician of a critical lab result(s). troponin 104. al5 15:57 EKG done, by ED staff, reviewed by Annie Tony MD. al5 17:04 Ulysses Salcedo MD is Hospitalizing Provider. gb1 18:27 No provider procedures requiring assistance completed. Patient admitted, IV remains in al5 place. 18:28 Patient has correct armband on for positive identification. Placed in gown. Bed in low al5 position. Call light in reach. Side rails up X2. Provided Education on: ER process and procedures. 18:31 Report faced at 1829. Jed confirmed that fax was received at 1830. cm10 19:15 Report given to ROB Somemrs. al5 Administered Medications: 17:30 Drug: Furosemide IVP 60 mg IVP once; give over 2 minutes Route: IVP; Site: left forearm;cm10 17:51 Follow up: Response: No adverse reaction al5 Medication: 18:27 VIS not applicable for this client. al5 Outcome: 17:06 Decision to Hospitalize by Provider. gb1 19:11 Admitted to Med/surg accompanied by nurse, via stretcher, rg5 19:11 Condition: stable 19:11 Instructed on safety practices, 19:24 Patient left the ED. rg5 Signatures: Dispatcher Meredith Aguillon Ham em1 Naveed Drake, RN RN ll1 Pal, Hilda RN RN cm10 Ashley Samano mg5 Annie Tony MD MD gb1 Bg Dove RN RN rg5 America Allen RN RN al5
--- NOTE | 2023-09-01 17:07 | EDPHYS ---
Physician Documentation [facility] [place] Name: Alyson Mayfield Age: 53 yrs Sex: Female : 1970 Arrival Date: 09/01/2023 Time: 13:41 Bed 18 Private MD: ED Physician Chavo Annie HPI: 08/31 16:41 This 53 yrs old Female presents to ER via Ambulatory with complaints of gb1 Shortness Of Breath, Abnormal Lab Results. 16:41 53-year-old female was called at home for abnormal labs. She is more short of breath gb1 than she has been. She was recently hospitalized at [facility] for fluid on her right lung and they took it off but stated that it may return if she did not have dialysis more frequently. Patient has a history of congestive heart failure, cuy-yosdcey-hzssoatyz diabetes, end-stage renal disease with hemodialysis, hypertension and thyroid disorder. Patient states that it is difficult for her to take a deep breath but she denies any chest pain cough or chills.. 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 - Infectious Disease History:: Denies. - Social history:: Smoking status: Patient denies any tobacco usage or history of. Exam: 16:41 Constitutional: This is a well developed, well nourished patient who is awake, alert, gb1 and in no acute distress. Head/Face: Normocephalic, atraumatic. Eyes: Pupils equal round and reactive to light, extra-ocular motions intact. Lids and lashes normal. Conjunctiva and sclera are non-icteric and not injected. Cornea within normal limits. Periorbital areas with no swelling, redness, or edema. ENT: Nares patent. No nasal discharge, no septal abnormalities noted. Tympanic membranes are normal and external auditory canals are clear. Oropharynx with no redness, swelling, or masses, exudates, or evidence of obstruction, uvula midline. Mucous membranes moist. Neck: Trachea midline, no thyromegaly or masses palpated, and no cervical lymphadenopathy. Supple, full range of motion without nuchal rigidity, or vertebral point tenderness. No Meningismus. Chest/axilla: Normal chest wall appearance and motion. Nontender with no deformity. No lesions are appreciated. Cardiovascular: Regular rate and rhythm with a normal S1 and S2. No gallops, murmurs, or rubs. Normal PMI, no JVD. No pulse deficits. Respiratory: Patient's breath sounds are decreased on the right lower lobe. Patient also has crackles at the right lower lobe. and percussion. No rales, rhonchi or wheezes noted. No increased work of breathing, no retractions or nasal flaring. Abdomen/GI: Soft, non-tender, with normal bowel sounds. No distension or tympany. No guarding or rebound. No evidence of tenderness throughout. Back: No spinal tenderness. No costovertebral tenderness. Full range of motion. Skin: Warm, dry with normal turgor. Normal color with no rashes, no lesions, and no evidence of cellulitis. MS/ Extremity: Pulses equal, no cyanosis. Neurovascular intact. Full, normal range of motion. Vital Signs: 13:59 BP 142 / 67; Pulse 74; Resp 22; Temp 97.7; Pulse Ox 90% on R/A; Weight 54.43 kg; Height ll1 5 ft. 2 in. ; Pain 0/10; 14:06 Resp 20; Pulse Ox 100% on 2 lpm NC; ll1 15:54 BP 150 / 74; Pulse 78; Resp 18; Pulse Ox 100% on 3 lpm NC; al5 19:08 BP 137 / 96; Pulse 77; Resp 18; Temp 97.9; Pulse Ox 100% on 3 lpm NC; Pain 0/10; rg5 13:59 Body Mass Index 21.95 (54.43 kg, 157.48 cm) ll1 13:59 Pain Scale: Adult ll1 19:08 Pain Scale: Adult rg5 MDM: 14:09 Patient medically screened. gb1 16:41 Data reviewed: vital signs, nurses notes, lab test result(s), EKG. ED course: gb1 53-year-old female with of breath and symptomatic anemia. She is in end-stage renal disease patient on hemodialysis with a rather large right pleural effusion. She is recently status post a thoracentesis on the right however she does need to be evaluated as now she is newly hypoxic requiring supplemental oxygen.. 08/31 14:00 Order name: Basic Metabolic Panel; Complete Time: 15:53 gb1 08/31 14:00 Order name: CBC with Diff; Complete Time: 15:53 gb1 08/31 14:00 Order name: NT PRO-BNP; Complete Time: 15:53 gb1 08/31 14:00 Order name: PT-INR; Complete Time: 15:53 gb1 08/31 14:00 Order name: Troponin HS; Complete Time: 15:53 gb1 08/31 17:15 Order name: Urinalysis w/ reflexes EDMS 08/31 17:15 Order name: Basic Metabolic Panel EDMS 08/31 17:15 Order name: Basic Metabolic Panel EDMS 08/31 17:15 Order name: Basic Metabolic Panel EDMS 08/31 17:15 Order name: Basic Metabolic Panel EDMS 08/31 17:15 Order name: Basic Metabolic Panel EDMS 08/31 17:15 Order name: CBC with Automated Diff EDMS 08/31 17:15 Order name: CBC with Automated Diff EDMS 08/31 17:15 Order name: CBC with Automated Diff EDMS 08/31 17:15 Order name: CBC with Automated Diff EDMS 08/31 17:15 Order name: CBC with Automated Diff EDMS 08/31 17:15 Order name: Magnesium EDMS 08/31 17:15 Order name: Magnesium EDMS 08/31 17:15 Order name: Magnesium EDMS 08/31 17:15 Order name: Magnesium EDMS 08/31 17:15 Order name: Magnesium EDMS 08/31 17:15 Order name: NT PRO-BNP EDMS 08/31 17:15 Order name: NT PRO-BNP EDMS 08/31 17:15 Order name: NT PRO-BNP EDMS 08/31 17:15 Order name: NT PRO-BNP EDMS 08/31 17:16 Order name: NT PRO-BNP EDMS 08/31 17:16 Order name: Troponin High Sensitivity EDMS 08/31 17:16 Order name: Troponin High Sensitivity EDMS 08/31 17:16 Order name: Troponin High Sensitivity EDMS 08/31 17:16 Order name: Troponin High Sensitivity [facility] 08/31 17:17 Order name: Iron [facility] 08/31 17:17 Order name: Liver (Hepatic) Function [facility] 08/31 17:17 Order name: NT PRO-BNP [facility] 08/31 17:17 Order name: Protime (+INR) [facility] 08/31 17:17 Order name: Retic Count [facility] 08/31 17:17 Order name: Vitamin B12 Level [facility] 08/31 17:18 Order name: Lab Add On [facility] 08/31 14:00 Order name: XRAY Chest (1 view); Complete Time: 15:53 [facility] 08/31 17:13 Order name: CONS Physician Consult [facility] 08/31 14:00 Order name: Cardiac monitoring; Complete Time: 15:36 [facility] 08/31 14:00 Order name: EKG - Nurse/Tech; Complete Time: 15:36 gb 08/31 14:00 Order name: IV Saline Lock; Complete Time: 14:53 [facility] 08/31 14:00 Order name: Labs collected and sent; Complete Time: 14:53 [facility] 08/31 14:00 Order name: O2 Per Protocol; Complete Time: 14:54 gb1 08/31 14:00 Order name: O2 Sat Monitoring; Complete Time: 15:13 gb1 Administered Medications: 17:30 Drug: Furosemide IVP 60 mg IVP once; give over 2 minutes Route: IVP; Site: left forearm;cm10 17:51 Follow up: Response: No adverse reaction al5 Disposition Summary: 09/01/23 17:06 Hospitalization Ordered Notes: Hospitalization Status: Inpatient Admission 1 Provider: Ulysses Salcedo [facility] gb1 Condition: Stable gb1 Problem: new gb1 Symptoms: are unchanged gb1 Bed/Room Type: Standard [facility] Room Assignment: 413(09/01/23 18:18) aa5 Diagnosis - Pleural effusion, not elsewhere classified gb1 - Anemia, unspecified gb1 - Acute respiratory failure with hypoxia gb1 Forms: - Medication Reconciliation Form gb1 - SBAR form gb1 - Leadership Thank You Letter gb1 Signatures: Dispatcher [employer] [facility] Tiffany Almeida RN RN aa5 Naveed Drake RN RN ll1 Hilda Aguillon RN RN cm10 Annie Tony MD MD gb1 America Allen RN al5 Corrections: (The following items were deleted from the chart) 14: 14:01 BASIC METABOLIC PANEL+C.LAB.BRZ ordered. EDMS EDMS 14: 14:01 CBC+H.LAB.BRZ ordered. EDMS EDMS 14:01 14:01 PROBNP+C.LAB.BRZ ordered. EDMS EDMS 14: 14:01 PROTIME (+INR)+COAG.LAB.BRZ ordered. EDMS EDMS 14: 14:01 Troponin High Sensitivity+C.LAB.BRZ ordered. EDMS EDMS 14:01 14:01 Chest Single View+RAD.RAD.BRZ ordered. EDMS EDMS 18:18 17:06 gb1 aa5
[2023-09-01] MEDS ORDERED: ONDANSETRON 4 MG/2 ML VIAL IV PRN (17:11)
--- NOTE | 2023-09-01 17:12 | P.HP ---
Certification for Inpatient Patient admitted to: Inpatient With expected LOS: >2 Midnights Patient will require the following post-hospital care: None Practitioner: I am a practitioner with admitting privileges, knowledge of patient current condition, hospital course, and medical plan of care. Services: Services provided to patient in accordance with Admission requirements found in Title 42 Section 412.3 of the Code of Federal Regulations Patient History Date of Service: 09/01/23 Reason for admission: Anemia; ESRD; right pleural effusion History of Present Illness: Patient is a 53-year-old female who came to the hospital with shortness of breath. She has been coughing quite a bit. She was recently at [facility] and had right-sided pleural effusion. She had 700 cc of fluid removed. She also has been anemic but this has been chronic with her dialysis. She denies any active bleeding. She denies any pleuritic chest pain. At this time patient has a hemoglobin of 6.8 so we will go ahead and give her 2 units of packed red blood cells during dialysis. Will also do a decubitus x-ray to see if her fluid layers and this may benefit from thoracentesis. Will consult nephrology for hemodialysis and give patient blood during dialysis. Thoracentesis hopefully in the morning. Patient will be admitted to the hospital for inpatient hospitalization. Allergies sulfamethoxazole [From Bactrim] Allergy (Verified 07/09/22 16:03) facial swelling trimethoprim [From Bactrim] Allergy (Verified 07/09/22 16:03) facial swelling Tramadol HCl Allergy (Uncoded 07/09/22 16:03) Hives/Rash Home Medications: Clopidogrel Bisulfate [Plavix*] 1 tab PO DAILY 07/19/22 Furosemide [Lasix] 80 mg PO BID #60 tab 02/19/23 Ferrous Sulfate [Ferrous Sulfate*] 325 mg PO M,W,F 07/14/23 Potassium Chloride 20 meq PO DAILY 30 Days #30 tab 07/22/23 Thyroid Tab [[place] Thyroid*] 60 mg PO DAILY@0600 tab 07/22/23 Aspirin [Aspirin EC 81 MG] 81 mg PO DAILY #180 tab 07/26/23 Atorvastatin Calcium [Lipitor] 40 mg PO BEDTIME #90 tab 07/26/23 Blood Sugar Diagnostic [Freestyle Lite Test Strip] 1 each MC TID #1 unit 07/26/23 Blood-Glucose Meter,Continuous [Freestyle Tea 3 [place]] 1 each MC DAILY #1 ea 07/26/23 Blood-Glucose Sensor [Freestyle Tea 3 Sensor] 1 each MC DAILY #1 ea 07/26/23 Cholecalciferol (Vitamin D3) [Vitamin D 1000 Iu Tab*] 4,000 unit PO DAILY #90 tab 07/26/23 Pantoprazole [Protonix Tab*] 20 mg PO M,W,F #60 tab 07/26/23 carvediloL [Coreg*] 25 mg PO BID #90 tab 07/26/23 Insulin Glargine,Hum.rec.anlog [Semglee] 20 unit SQ DAILY #2 udpkt 08/19/23 - Past Medical/Surgical History Diabetic: Yes -: Diabetes mellitus type II -: Hypothyroid -: Hypertension -: CHF -: ESRD -: chronic diarrhea -: Tubal ligation -: Cholecystectomy -: cardiac stent x 2 Psychosocial/ Personal History: 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 Has not been able to see her Physicians because she is unable to leave the house 2nd to diarrhea. States she has had every study there is but swallowing the camera - Family History Father -: Hypertension, Diabetes, Cancer Mother -: Diabetes, Cancer - Social History Smoking Status: Former smoker Alcohol use: No CD- Drugs: No Caffeine use: Yes Review of Systems 10-point ROS is otherwise unremarkable Physical Examination - Physical Exam General: Alert, In no apparent distress, Oriented x3 HEENT: Atraumatic, PERRLA, Mucous membr. moist/pink, EOMI, Sclerae nonicteric Neck: Supple, 2+ carotid pulse no bruit, No LAD, Without JVD or thyroid abnormality Respiratory: Diminished, Crackles/rales Cardiovascular: Regular rate/rhythm, Normal S1 S2, Systolic murmur Gastrointestinal: Normal bowel sounds, Soft and benign, Non-distended, No tenderness Musculoskeletal: No clubbing, No swelling, No tenderness Integumentary: No rashes Neurological: Normal gait, Normal speech, Normal strength at 5/5 x4 extr, Normal tone, Sensation intact, Cranial nerves 3-12 intact, Normal affect Lymphatics: No axilla or inguinal lymphadenopathy - Studies Laboratory Data (last 24 hrs) 09/01/23 09/01/23 09/01/23 14:48 14:48 14:48 WBC 5.10 Hgb 6.7 L Hct 20.2 L Plt Count 258 PT 13.0 H INR 1.19 Sodium 133 L Potassium 3.6 BUN 24 H Creatinine 3.06 H Glucose 392 H Assessment and Plan - Problems (Diagnosis) (1) Pleural effusion, right Current Visit: Yes Status: Acute (2) Anemia in chronic kidney disease (CKD) Current Visit: No Status: Acute (3) CAD (coronary artery disease) Current Visit: No Status: Acute (4) Congestive heart failure Current Visit: No Status: Acute (5) Diabetes Current Visit: No Status: Acute (6) ESRD (end stage renal disease) Current Visit: No Status: Acute (7) Hypertension Current Visit: No Status: Acute - Plan Plan: 1. Patient with anemia; most likely anemia of chronic disease and no active bleeding. Check iron and B12 level. Transfuse 1 to 2 units during hemodialysis. Nephrology consultation. 2. Patient with recurrent right pleural effusion; lateral decubitus films and thoracentesis if significant layering. Will consult radiology for ultrasound- guided thoracentesis. We will make sure patient is off blood thinners. 3. ESRD; hemodialysis per nephrology 4. CAD; continue with cardiac meds 5. CHF; reviewed prior echo and repeat if needed 6. GI and DVT prophylaxis Discharge Plan: Home Plan to discharge in: Greater than 2 days - Advance Directives Does patient have a Living Will: No Does patient have a Durable POA for Healthcare: No - Code Status/Comfort Care Code Status Assessed: Yes Code Status: Full Code Critical Care: No Time Spent Managing Pts Care (In Minutes): 45
[2023-09-01] MEDS: FUROSEMIDE 40 MG/4 ML VIAL IV ONE (17:30)
[2023-09-01 19:40] LABS: ALT/SGPT 35 U/L (13-56); AST/SGOT 12 U/L (15-37); Albumin 2.2 g/dL (3.4-5.0); Albumin/Globulin Ratio 0.6 (1.1-1.8); Alkaline Phosphatase 226 U/L (45-117); Bilirubin Total 0.3 mg/dL (0.2-1.0); Globulin 3.6 g/dL (2.3-3.5); Protein, Total 5.8 g/dL (6.4-8.2)
[2023-09-01 19:49] LABS: Bilirubin Direct < 0.2 mg/dL (0-0.2); Bilirubin Indirect, Calculated 0.1 mg/dL (0.2-0.8)
[2023-09-01] MEDS ORDERED: NA CHLORIDE 0.9% 250 ML IV SCH (20:32)
[2023-09-01] MEDS: ACETAMINOPHEN 500 MG TAB PO ONE (20:32)
[2023-09-01] MEDS: DIPHENHYDRAMINE 50 MG/ML VIAL IV ONE (20:32)
[2023-09-01] MEDS: FUROSEMIDE 40 MG TABLET PO SCH (21:45)
[2023-09-01] MEDS: ATORVASTATIN 40 MG TAB PO SCH (21:45)
[2023-09-01] MEDS ORDERED: D50W 25 GM/50 ML SYRINGE IV PRN (21:49)
[2023-09-01] MEDS ORDERED: GLUCAGON 1 MG/VIAL IM PRN (21:49)
[2023-09-01] MEDS ORDERED: D10W 125 ML IV PRN (21:58)
[2023-09-01] MEDS: INSULIN REGULAR (HUMAN) 100 UNIT/ML SQ SCH (22:11)
[2023-09-01 23:56] VITALS: BMI 21.9
[2023-09-02] MEDS ORDERED: HEPARIN 5000 UNIT/ML 1 ML VIAL SQ SCH (01:00)
[2023-09-02 02:36] LABS: Absolute Eosinophils 0.1 K/uL (0-0.5); Absolute Lymphocytes (CBC) 0.6 K/uL (0.7-4.9); Absolute Monocytes 0.4 K/uL (0.1-1.3); Absolute Neutrophil 3.9 K/uL (1.8-8.0); Basophils % 0.9 % (0-1.3); Eosinophils % 2.1 % (0-4.4); Hematocrit 19.2 % (36.0-45.0); Hemoglobin 6.3 g/dL (12.0-15.0); Lymphocytes % 11.7 % (15.3-44.8); MCH 29.8 pg (27.0-35.0); MCHC 32.9 g/dL (32.0-36.0); MCV 90.4 fL (80-100); MPV 8.2 fL (7.6-11.3); Monocytes % 8.2 % (3.3-12.3); Neutrophils % 77.1 % (41.7-73.7); Nucleated Red Blood Cells % 0.1 % (0-0); Platelets 249 thou/uL (152-406); RBC Red Blood Cell Count 2.12 M/uL (3.86-4.86); Red Cell Distribution Width 13.1 % (12.1-15.2)
[2023-09-02 02:40] LABS: PT Prothrombin Time 12.4 SECONDS (9.4-12.5); Protime INR 1.13
[2023-09-02 02:43] LABS: Percent Reticulocyte Count 1.88 % (0.4-2.05); RBC Red Blood Cell Count 2.3 M/uL (3.86-4.86)
[2023-09-02 03:36] LABS: Anion Gap 8.6 mEq/L (5.0-15.0); Magnesium 2.2 mg/dL (1.6-2.4); Phosphorus 4.7 mg/dL (2.5-4.9); Potassium 3.6 mEq/L (3.5-5.1)
[2023-09-02] MEDS: THYROID 30 MG TAB PO SCH (05:29)
[2023-09-02] MEDS: INSULIN GLARGINE 100 UNIT/ML SQ SCH (08:22)
[2023-09-02] MEDS: CLOPIDOGREL 75 MG TABLET PO SCH (08:49)
[2023-09-02] MEDS: ASPIRIN EC 81 MG TAB PO SCH (08:50)
[2023-09-02] MEDS: carvediloL 25 MG TAB PO SCH (08:50)
[2023-09-02] MEDS: POTASSIUM CL SA 10 MEQ TAB PO ONE (08:55)
--- NOTE | 2023-09-02 09:50 | P.CNS ---
Date of Consult: 09/02/23 Reason for Consult: Right-sided pleural effusion Chief Complaint: Anemia; ESRD; right pleural effusion History of Present Illness: Patient is 53 years of age was recently admitted to [facility] and underwent thoracentesis discharged came back again with acute shortness of breath denies any chest pain fever chills or cough have recurrent right-sided pleural effusion she also has a dialysis catheter on the right side history of malignancy and is anemic Allergies sulfamethoxazole [From Bactrim] Allergy (Verified 07/09/22 16:03) facial swelling trimethoprim [From Bactrim] Allergy (Verified 07/09/22 16:03) facial swelling Tramadol HCl Allergy (Uncoded 07/09/22 16:03) Hives/Rash Home Medications: Clopidogrel Bisulfate [Plavix*] 1 tab PO DAILY 07/19/22 Furosemide [Lasix] 80 mg PO BID #60 tab 02/19/23 Ferrous Sulfate [Ferrous Sulfate*] 325 mg PO M,W,F 07/14/23 Potassium Chloride 20 meq PO DAILY 30 Days #30 tab 07/22/23 Thyroid Tab [[place] Thyroid*] 60 mg PO DAILY@0600 tab 07/22/23 Aspirin [Aspirin EC 81 MG] 81 mg PO DAILY #180 tab 07/26/23 Atorvastatin Calcium [Lipitor] 40 mg PO BEDTIME #90 tab 07/26/23 Blood Sugar Diagnostic [Freestyle Lite Test Strip] 1 each MC TID #1 unit 07/26/23 Blood-Glucose Meter,Continuous [Freestyle Tea 3 [place]] 1 each MC DAILY #1 ea 07/26/23 Blood-Glucose Sensor [Freestyle Tea 3 Sensor] 1 each MC DAILY #1 ea 07/26/23 Cholecalciferol (Vitamin D3) [Vitamin D 1000 Iu Tab*] 4,000 unit PO DAILY #90 tab 07/26/23 Pantoprazole [Protonix Tab*] 20 mg PO M,W,F #60 tab 07/26/23 Insulin Glargine,Hum.rec.anlog [Semglee] 20 unit SQ DAILY #2 udpkt 08/19/23 carvediloL [Coreg*] 25 mg PO DAILY 09/01/23 - Past Medical/Surgical History Diabetic: Yes -: Diabetes mellitus type II -: Hypothyroid -: Hypertension -: CHF -: ESRD -: chronic diarrhea -: Tubal ligation -: Cholecystectomy -: cardiac stent x 2 Psychosocial/ Personal History: 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 Has not been able to see her Physicians because she is unable to leave the house 2nd to diarrhea. States she has had every study there is but swallowing the camera - Family History Father Medical History: Hypertension, Diabetes, Cancer Mother Medical History: Diabetes, Cancer - Social History Alcohol use: No CD- Drugs: No Caffeine use: Yes Place of Residence: Home Review of Systems 10-point ROS is otherwise unremarkable General: Weakness Respiratory: Shortness of Breath Physical Examination Temp Pulse Resp BP Pulse Ox 98 F 70 18 160/78 H 100 09/02/23 08:00 09/02/23 08:50 09/02/23 08:00 09/02/23 08:50 09/02/23 08:00 General: Alert, In no apparent distress, Oriented x3 Neck: Supple Respiratory: Clear to auscultation bilaterally, Diminished (Diminished on the right side) Cardiovascular: No edema Capillary refill: <2 Seconds Gastrointestinal: Normal bowel sounds, Soft and benign Laboratory Data (last 24 hrs) 09/01/23 09/01/23 09/01/23 14:48 14:48 14:48 WBC 5.10 Hgb 6.7 L Hct 20.2 L Plt Count 258 PT 13.0 H INR 1.19 Sodium 133 L Potassium 3.6 BUN 24 H Creatinine 3.06 H Glucose 392 H - Problems (1) Pleural effusion, right Current Visit: Yes Status: Acute Plan: Patient is 53 years of age admitted with acute onset of shortness of breath worsening effusion on the right side chronic renal failure severely anemic elevated troponins blood pressure is all also elevated plan to do bilateral decubitus ultrasound of the chest pain diagnostic [facility] troponin likely 2 renal failure patient had a recent cardiac cath thoracentesis or insertion of a Pleurx catheter due to recurrent pleural effusion (2) Congestive heart failure Current Visit: No Status: Acute Plan: Patient has systolic heart failure with secondary pulmonary hypertension and cardiac cath Left main is short and normal. 2. LAD, large, ostial to proximal stent that is patent, then mild LI followed by mid to distal stent that is patent. Distal edge of the stent got 30% disease, then mild luminal irregularities. 3. Left circ, mild luminal irregularities. 4. RCA, proximal mild LI, mid diffuse 50% to 60% disease, FFR peak of 0.94, distal mild LI. 5. LVEDP 16 mmHg Qualifiers: Heart failure type: systolic
--- NOTE | 2023-09-02 12:30 | RAD REPORT ---
EXAM DESCRIPTION: [facility] Lateral Decubitus09/02/2023 10:34 am CLINICAL HISTORY: Bilateral COMPARISON: Chest Single View dated 09/01/2023 TECHNIQUE: Bilateral lateral decubitus views. FINDINGS: Right dialysis catheter unchanged in position. The lungs are clear. No pneumothorax. Laye ring at least moderate right pleural effusion. No findings to suggest effusion loculation. . The card iomediastinal contours are unremarkable. IMPRESSION: Layering at least moderate right pleural effusion without evidence of loculation.
--- NOTE | 2023-09-02 13:02 | RAD REPORT ---
EXAM DESCRIPTION: US Chest CLINICAL HISTORY: R effusion recurrent COMPARISON: Chest Lateral Decubitus dated 09/02/2023 TECHNIQUE: Sonographic grayscale and color flow images of the thyroid gland were obtained. FINDINGS: Moderate to large right pleural effusion with mild internal debris. Underlying lung parenc hyma opacification with volume loss. No solid components within the pleural fluid. Small left pleural effusion component is also noted. IMPRESSION: Moderate to large right pleural effusion with mild internal debris. Small left pleural effusion component is also noted.
[2023-09-02 13:22] LABS: Albumin 2.1 g/dL (3.4-5.0); Albumin/Globulin Ratio 0.6 (1.1-1.8); Bilirubin Direct 0.2 mg/dL (0-0.2); Bilirubin Indirect, Calculated 0.1 mg/dL (0.2-0.8); Bilirubin Total 0.3 mg/dL (0.2-1.0); Globulin 3.7 g/dL (2.3-3.5); Protein, Total 5.8 g/dL (6.4-8.2)
[2023-09-02 14:02] LABS: Hepatitis B surface AG Interp. Nonreactive (Nonreactive)
[2023-09-02 14:03] LABS: HBsAG Nonreactive Report Report
[2023-09-02 15:54] LABS: Hematocrit 28.3 % (36.0-45.0); Hemoglobin 9.6 g/dL (12.0-15.0)
--- NOTE | 2023-09-02 16:16 | P.CNS ---
Date of Consult: 09/02/23 Chief Complaint: Anemia; ESRD; right pleural effusion History of Present Illness: Patient with PMH of CAD, PCI LAD, ESRD, pleural effusion, HTN presented to the hospital with generalized weakness and fatigue, denies chest pain, no palpitations, no syncope. Allergies sulfamethoxazole [From Bactrim] Allergy (Verified 07/09/22 16:03) facial swelling trimethoprim [From Bactrim] Allergy (Verified 07/09/22 16:03) facial swelling Tramadol HCl Allergy (Uncoded 07/09/22 16:03) Hives/Rash Home Medications: Clopidogrel Bisulfate [Plavix*] 1 tab PO DAILY 07/19/22 Furosemide [Lasix] 80 mg PO BID #60 tab 02/19/23 Ferrous Sulfate [Ferrous Sulfate*] 325 mg PO ,,F 07/14/23 Potassium Chloride 20 meq PO DAILY 30 Days #30 tab 07/22/23 Thyroid Tab [[place] Thyroid*] 60 mg PO DAILY@0600 tab 07/22/23 Aspirin [Aspirin EC 81 MG] 81 mg PO DAILY #180 tab 07/26/23 Atorvastatin Calcium [Lipitor] 40 mg PO BEDTIME #90 tab 07/26/23 Blood Sugar Diagnostic [Freestyle Lite Test Strip] 1 each MC TID #1 unit 07/26/23 Blood-Glucose Meter,Continuous [Freestyle Tea 3 [place]] 1 each MC DAILY #1 ea 07/26/23 Blood-Glucose Sensor [Freestyle Tea 3 Sensor] 1 each MC DAILY #1 ea 07/26/23 Cholecalciferol (Vitamin D3) [Vitamin D 1000 Iu Tab*] 4,000 unit PO DAILY #90 tab 07/26/23 Pantoprazole [Protonix Tab*] 20 mg PO ,,F #60 tab 07/26/23 Insulin Glargine,Hum.rec.anlog [Semglee] 20 unit SQ DAILY #2 udpkt 08/19/23 carvediloL [Coreg*] 25 mg PO DAILY 09/01/23 - Past Medical/Surgical History Diabetic: Yes -: Diabetes mellitus type II -: Hypothyroid -: Hypertension -: CHF -: ESRD -: chronic diarrhea -: Tubal ligation -: Cholecystectomy -: cardiac stent x 2 Psychosocial/ Personal History: 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 Has not been able to see her Physicians because she is unable to leave the house 2nd to diarrhea. States she has had every study there is but swallowing the camera - Family History Father Medical History: Hypertension, Diabetes, Cancer Mother Medical History: Diabetes, Cancer - Social History Alcohol use: No CD- Drugs: No Caffeine use: Yes Place of Residence: Home Review of Systems 10-point ROS is otherwise unremarkable Physical Examination Temp Pulse Resp BP Pulse Ox 97.8 F 69 16 143/69 H 98 09/02/23 12:00 09/02/23 12:00 09/02/23 12:00 09/02/23 12:00 09/02/23 12:00 General: Alert, In no apparent distress HEENT: Atraumatic, PERRLA, Mucous membr. moist/pink, EOMI, Sclerae nonicteric Neck: Supple, 2+ carotid pulse no bruit, No LAD, Without JVD or thyroid abnormality Respiratory: Clear to auscultation bilaterally, Normal air movement Cardiovascular: Regular rate/rhythm, Normal S1 S2 Gastrointestinal: Normal bowel sounds, No tenderness Musculoskeletal: No tenderness Integumentary: No rashes Neurological: Normal gait, Normal speech, Normal tone, Normal affect Lymphatics: No axilla or inguinal lymphadenopathy - Problems (1) CAD (coronary artery disease) Current Visit: No Status: Acute Plan: Patient with no chest pain, enzymes are mild elevated, most likely type 2 HI Patient had a recent coronary angiogram that shows patent LAD stent with moderate RCA disease that was FFR negative. No need for further cardiac work up at this time Continue ASA 81 mg daily Continue Plavix 75 mg daily Continue Lipitor 40 mg daily (2) Congestive heart failure Current Visit: No Status: Acute Plan: Continue volume adjusment with dialysis Continue Coreg 25 mg po BID Qualifiers: Heart failure type: systolic (3) Hypertension Current Visit: No Status: Acute Plan: continue coreg and lasix.
[2023-09-02] MEDS ORDERED: PANTOPRAZOLE 40MG TABLET PO SCH (17:00)
--- NOTE | 2023-09-02 17:02 | P.DS ---
Admission Date: 09/01/23 Discharge Date: 09/02/23 Reason for Admission: Anemia; ESRD; right pleural effusion - Problems (1) Pleural effusion, right Current Visit: Yes Status: Acute (2) Anemia in chronic kidney disease (CKD) Current Visit: No Status: Acute (3) CAD (coronary artery disease) Current Visit: No Status: Acute (4) Congestive heart failure Current Visit: No Status: Acute Qualifiers: Heart failure type: systolic (5) Diabetes Current Visit: No Status: Acute (6) ESRD (end stage renal disease) Current Visit: No Status: Acute (7) Hypertension Current Visit: No Status: Acute Brief History of Present Illness: Patient is a 53-year-old female who came to the hospital with shortness of breath. She has been coughing quite a bit. She was recently at [facility] and had right-sided pleural effusion. She had 700 cc of fluid removed. She also has been anemic but this has been chronic with her dialysis. She denies any active bleeding. She denies any pleuritic chest pain. At this time patient has a hemoglobin of 6.8 so we will go ahead and give her 2 units of packed red blood cells during dialysis. Will also do a decubitus x-ray to see if her fluid layers and this may benefit from thoracentesis. Will consult nephrology for hemodialysis and give patient blood during dialysis. Thoracentesis hopefully in the morning. Patient will be admitted to the hospital for inpatient hospitalization. <Becky Serrano - Last Filed: 09/02/23 17:00> Admission Date: 09/01/23 Discharge Date: 09/04/23 <Ulysses Salcedo - Last Filed: 09/04/23 11:12> Disposition: ROUTINE DISCHARGE Vital Signs/Physical Exam: Temp Pulse Resp BP Pulse Ox 97.8 F 69 16 143/69 H 98 09/02/23 12:00 09/02/23 12:00 09/02/23 12:00 09/02/23 12:00 09/02/23 12:00 Laboratory Data at Discharge: WBC 5.00 thou/uL (4.3-10.9) 09/02/23 02:22 Hgb 9.6 g/dL (12.0-15.0) L D 09/02/23 15:28 Hct 28.3 % (36.0-45.0) L 09/02/23 15:28 Plt Count 249 thou/uL (152-406) 09/02/23 02:22 PT 12.4 SECONDS (9.4-12.5) 09/02/23 02:22 INR 1.13 09/02/23 02:22 Sodium 135 mEq/L (136-145) L 09/02/23 02:22 Potassium 3.6 mEq/L (3.5-5.1) 09/02/23 02:22 BUN 36 mg/dL (7-18) H 09/02/23 02:22 Creatinine 3.75 mg/dL (0.55-1.02) H 09/02/23 02:22 Glucose 224 mg/dL (74-106) H 09/02/23 02:22 Phosphorus 4.7 mg/dL (2.5-4.9) 09/02/23 02:22 Magnesium 2.2 mg/dL (1.6-2.4) 09/02/23 02:22 Total Bilirubin 0.3 mg/dL (0.2-1.0) 09/02/23 12:25 AST 20 U/L (15-37) 09/02/23 12:25 ALT 36 U/L (13-56) 09/02/23 12:25 Alkaline Phosphatase 229 U/L (45-117) H 09/02/23 12:25 <Becky Serrano - Last Filed: 09/02/23 17:00> Vital Signs/Physical Exam: Temp Pulse Resp BP Pulse Ox 97.6 F 74 17 156/75 H 97 09/04/23 08:00 09/04/23 08:58 09/04/23 08:00 09/04/23 08:58 09/04/23 08:00 Laboratory Data at Discharge: WBC 6.30 thou/uL (4.3-10.9) 09/04/23 05:29 Hgb 10.7 g/dL (12.0-15.0) L 09/04/23 05:29 Hct 31.9 % (36.0-45.0) L 09/04/23 05:29 Plt Count 332 thou/uL (152-406) 09/04/23 05:29 PT 12.4 SECONDS (9.4-12.5) 09/02/23 02:22 INR 1.13 09/02/23 02:22 Sodium 133 mEq/L (136-145) L 09/04/23 05:29 Potassium 3.8 mEq/L (3.5-5.1) 09/04/23 05:29 BUN 39 mg/dL (7-18) H 09/04/23 05:29 Creatinine 3.78 mg/dL (0.55-1.02) H 09/04/23 05:29 Glucose 266 mg/dL (74-106) H 09/04/23 05:29 Phosphorus 4.7 mg/dL (2.5-4.9) 09/02/23 02:22 Magnesium 2.1 mg/dL (1.6-2.4) 09/04/23 05:29 Total Bilirubin 0.3 mg/dL (0.2-1.0) 09/02/23 12:25 AST 20 U/L (15-37) 09/02/23 12:25 ALT 36 U/L (13-56) 09/02/23 12:25 Alkaline Phosphatase 229 U/L (45-117) H 09/02/23 12:25 <Ulysses Salcedo - Last Filed: 09/04/23 11:12> <Becky Serrano - Last Filed: 09/02/23 17:00> <Ulysses Salcedo - Last Filed: 09/04/23 11:12> Home Medications: Clopidogrel Bisulfate [Plavix*] 1 tab PO DAILY 07/19/22 Furosemide [Lasix] 80 mg PO BID #60 tab 02/19/23 Ferrous Sulfate [Ferrous Sulfate*] 325 mg PO M,W,F 07/14/23 Potassium Chloride 20 meq PO DAILY 30 Days #30 tab 07/22/23 Thyroid Tab [[place] Thyroid*] 60 mg PO DAILY@0600 tab 07/22/23 Aspirin [Aspirin EC 81 MG] 81 mg PO DAILY #180 tab 07/26/23 Atorvastatin Calcium [Lipitor] 40 mg PO BEDTIME #90 tab 07/26/23 Blood Sugar Diagnostic [Freestyle Lite Test Strip] 1 each MC TID #1 unit 07/26/23 Blood-Glucose Meter,Continuous [Freestyle Tea 3 [place]] 1 each MC DAILY #1 ea 07/26/23 Blood-Glucose Sensor [Freestyle Tea 3 Sensor] 1 each MC DAILY #1 ea 07/26/23 Cholecalciferol (Vitamin D3) [Vitamin D 1000 Iu Tab*] 4,000 unit PO DAILY #90 tab 07/26/23 Pantoprazole [Protonix Tab*] 20 mg PO M,W,F #60 tab 07/26/23 Insulin Glargine,Hum.rec.anlog [Semglee] 20 unit SQ DAILY #2 udpkt 08/19/23 carvediloL [Coreg*] 25 mg PO DAILY 09/01/23 Physician Discharge Instructions: -DC IV and DC home -Follow-up with PCP in 1 to 2 weeks -Follow-up with Cardiology in 1 to 2 weeks -Follow-up with Nephrology in 1 to 2 weeks -Please call Dr. Salcedo at [phone] if any questions regarding hospital stay -Please call nursing station at [phone] if any nursing or medication questions -Return to the emergency room if symptoms worsen Followup: Jeet Manley MD [Primary Care Provider] -
[2023-09-02] MEDS: PANTOPRAZOLE 40MG TABLET PO SCH (17:10)
--- NOTE | 2023-09-02 17:11 | P.PN ---
Date of Service: 09/02/23 Subjective Reports feeling better after hemodialysis Review of Systems 10-point ROS is otherwise unremarkable Physical Examination - Vital Signs reviewed - Physical Exam General: Alert, In no apparent distress HEENT: Atraumatic, PERRLA, EOMI Neck: Supple, JVD not distended Respiratory: Diminished, Normal air movement Cardiovascular: Regular rate/rhythm, Normal S1 S2 Gastrointestinal: Normal bowel sounds, No tenderness Musculoskeletal: Generalized weakness Integumentary: No rashes Neurological: Normal speech, Normal tone, Normal affect Assessment And Plan - Current Problems (Diagnosis) End-stage renal disease on hemodialysis Nephrology consult, hemodialysis Fluid volume overload NSTEMI, elevated troponin Elevated BNP Congestive heart failure Hypertension CAD Cardiology consulted History coronary angiogram done today that shows patent LAD stents Continue Lasix 80 mg po BID Continue Coreg 25 mg po BID Continue ASA 81 mg daily for life. Continue Plavix 75 mg daily for 12 months Continue Lipitor 40 mg daily Anemia of chronic disease Trend H&H, Transfuse during hemodialysis Pleural effusion, Purulent pulmonary consulted for evaluation for thoracentesis Plan for outpatient thoracentesis, hold Plavix prior to procedure Full code DVT heparin Diet renal Disposition Home independent <Becky Serrano - Last Filed: 09/04/23 14:07> Chart has been reviewed. Events of the last 24 hours have been noted. Case discussed with CANDI. I performed a substantial part of the MDM during this patient's care today. I personally made or approved the documented management plan and acknowledge its risk of complications. I agree with the findings and documentation provided in the CANDI's notes Continue with hemodialysis per nephrology. Arranging for thoracentesis and monitoring H&H. Patient given 2 units of packed red blood cells during hemodialysis and hemoglobin stable. <Ulysses Salcedo - Last Filed: 09/06/23 03:48>
[2023-09-02] MEDS: HYDROCODONE/APAP 10/325 TAB PO PRN (17:40)
[2023-09-02] MEDS: EPOETIN ALFA 10,000 UNIT/ML VIAL IV SCH (18:34)
[2023-09-02] MEDS ORDERED: EPOETIN ALFA 10,000 UNIT/ML VIAL SQ ONE (19:00)
--- NOTE | 2023-09-02 21:49 | CON ---
Date of Consultation: 09/02/2023 Reason For Consultation: End-stage renal disease, fluid and electrolyte management. Chief Complaint: Weakness. History Of Present Illness: This is a 53-year-old woman with past medical history of end-stage renal disease, on hemodialysis, Tuesday, Tuesday, and Tuesday via AV fistula, diabetes, hypothyroidism, hy pertension, and CHF. The patient presented complaining of shortness of breath and weakness, found to have anemia, hemoglobin 6.8. She was recently admitted to [facility] for shortness of leora th, required paracentesis with 700 fluid removal. The patient had dialysis today with blood transfus ion and 3.5 L removal. Past Medical History: End-stage renal disease, hypertension, and diabetes mellitus. Past Surgical History: AV fistula creation, cholecystectomy, and cardiac stent. Allergies: ALLERGIC TO BACTRIM AND TRAMADOL. Family History: Father had hypertension, diabetes, and cancer. Mother had diabetes and cancer. Social History: She is a former smoker. No known history of tobacco, recreational drug abuse. Medications: See MAR. Review of Systems: General: Has weakness. HEENT: Denies headache or blurred vision. Respiratory: Has shortness of breath that is improved. Cardiovascular: Denies chest pain or palpitations. GI: Denies nausea, vomiting, diarrhea, or constipation. : Denies dysuria, hematuria. Physical Examination: Vital Signs: Temperature 98, pulse 68, blood pressure 140/67. General: Awake, alert, oriented x3. Not in distress. Neck: Supple. No elevated JVD. Heart: Regular rate and rhythm. Normal S1, S2. Chest: Clear to auscultation bilaterally. No rales or wheezes. Abdomen: Soft, nontender. Extremities: Have some swelling. Lab: Sodium 135, potassium 3.6, BUN 36, creatinine 3.7. White count of 5, hemoglobin 9.6, hematocri t 28. Assessment And Plan: 1.End-stage renal disease. The patient had dialysis today of 3.5 fluid removal. Continue dialysis on Tuesday. Renal dose medication. 2.Anemia of chronic disease. Monitor status post PRBC and will give Epogen. 3.Coronary artery disease. Continue cardiac meds. Cardiology consult appreciated. 4.Congestive heart failure. Continue dialysis with UF as tolerated. Low-salt diet. Thanks for allowing me to participate in patient care. Total time I spent 55 minutes including docum entation, reviewing labs, and discussing with the patient and medical staff. ELIF Voice ID: [id number] Report ID: [id number]
[2023-09-03 00:08] LABS: Specific Gravity 1.013 (1.005-1.030); Urine Bacteria <20 /HPF (<20); Urine Bilirubin NEGATIVE (Negative); Urine Blood 1+ (Negative); Urine Clarity Extremely Turbid (Clear); Urine Color Yellow (Yellow); Urine Culture Reflex Order REFLEXED; Urine Glucose 3+ (Negative); Urine Ketones NEGATIVE (Negative); Urine Microscopic Reflex YN ORDER UMIC; Urine Mucus Slight /HPF (None Seen); Urine Nitrite NEGATIVE (Negative); Urine Protein 3+ (Negative); Urine Urobilinogen Normal (Normal); Urine Yeast (Budding) Trace /HPF (None Seen)
[2023-09-03] MEDS: DIPHENHYDRAMINE 25 MG TAB/CAP PO PRN (05:13)
[2023-09-03 06:23] LABS: Absolute Basophils 0.1 K/uL (0-0.5); Absolute Eosinophils 0.2 K/uL (0-0.5); Absolute Lymphocytes (CBC) 0.7 K/uL (0.7-4.9); Absolute Monocytes 0.4 K/uL (0.1-1.3); Eosinophils % 3.2 % (0-4.4); Lymphocytes % 13.4 % (15.3-44.8); MCHC 33.5 g/dL (32.0-36.0); MCV 89.5 fL (80-100); Monocytes % 8.2 % (3.3-12.3); Neutrophils % 74.2 % (41.7-73.7); Nucleated Red Blood Cells % 0.4 % (0-0); Platelets 295 thou/uL (152-406); RBC Red Blood Cell Count 3.35 M/uL (3.86-4.86); Red Cell Distribution Width 13.6 % (12.1-15.2)
[2023-09-03 07:01] LABS: Anion Gap 8.7 mEq/L (5.0-15.0); Magnesium 2.1 mg/dL (1.6-2.4); Potassium 3.7 mEq/L (3.5-5.1)
--- NOTE | 2023-09-03 09:02 | P.PN ---
Date of Service: 09/03/23 Subjective 92% on room air, reports breathing better, no reported use of home O2 Right pleural effusion, Review of Systems 10-point ROS is otherwise unremarkable Physical Examination - Vital Signs reviewed - Physical Exam General: Alert, oriented x 3, afebrile HEENT: Atraumatic, PERRLA, EOMI Neck: Supple, JVD not distended Respiratory: Diminished on the right, Normal air movement Cardiovascular: S1-S2, regular rate and rhythm Gastrointestinal: Normal bowel sounds, No tenderness Musculoskeletal: No tenderness Integumentary: No rashes Neurological: Normal speech, Normal tone, Normal affect Lymphatics: No axilla or inguinal lymphadenopathy Assessment And Plan - Current Problems (Diagnosis) End-stage renal disease on hemodialysis Nephrology consult, hemodialysis Fluid volume overload NSTEMI, elevated troponin Elevated BNP Congestive heart failure Hypertension CAD Cardiology consulted History coronary angiogram done today that shows patent LAD stents Continue Lasix 80 mg po BID Continue Coreg 25 mg po BID Continue ASA 81 mg daily for life. Continue Plavix 75 mg daily for 12 months Continue Lipitor 40 mg daily Anemia of chronic disease Trend H&H, Transfuse during hemodialysis Pleural effusion, Purulent pulmonary consulted for evaluation for thoracentesis Plan for outpatient thoracentesis, hold Plavix prior to procedure Per pulmonary patient needs to hold Plavix prior to thoracentesis, thoracentesis can be done outpatient Full code DVT heparin Diet renal Disposition Home independent <Becky Serrano - Last Filed: 09/04/23 14:12> Chart has been reviewed. Events of the last 24 hours have been noted. Case discussed with CANDI. I performed a substantial part of the MDM during this p atient's care today. I personally made or approved the documented management plan and acknowledge its risk of complications. I agree with the findings and documentation provided in the CANDI's notes Continue with hemodialysis per nephrology. Arranging for thoracentesis on Tuesday and monitoring H&H. Patient given 2 units of packed red blood cells during hemodialysis and hemoglobin has been stable. If thoracentesis is completed on Tuesday and clinically continues to do well then anticipate discharge home. <Ulysses Salcedo - Last Filed: 09/06/23 03:49>
--- NOTE | 2023-09-03 10:05 | P.PN ---
Subjective Date of Service: 09/03/23 Chief Complaint: Anemia; ESRD; right pleural effusion Subjective: Improving (Patient is improving denies any shortness of breath fever chills chest pain) Review of Systems 10-point ROS is otherwise unremarkable Physical Examination - Vital Signs Temperature: 97.8 F Blood Pressure: 157/79 Pulse: 66 Respirations: 14 Pulse Ox (%): 100 - Physical Exam General: Alert, Oriented x3 Respiratory: Diminished (Patient on the right side) Cardiovascular: No edema, Regular rate/rhythm Assessment And Plan - Current Problems (Diagnosis) (1) Pleural effusion, right Current Visit: Yes Status: Acute Plan: And is 53 years of age admitted with worsening right-sided pleural effusion he had a thoracentesis done at [facility] can be discharged home will schedule her for outpatient thoracentesis evidence of any loculation found and decubitus x-rays reviewed and is undergoing dialysis (2) Congestive heart failure Current Visit: No Status: Acute Plan: Patient has systolic heart failure with secondary pulmonary hypertension and cardiac cath Left main is short and normal. 2. LAD, large, ostial to proximal stent that is patent, then mild LI followed by mid to distal stent that is patent. Distal edge of the stent got 30% disease, then mild luminal irregularities. 3. Left circ, mild luminal irregularities. 4. RCA, proximal mild LI, mid diffuse 50% to 60% disease, FFR peak of 0.94, distal mild LI. 5. LVEDP 16 mmHg Qualifiers: Heart failure type: systolic
[2023-09-03] MEDS ORDERED: EPOETIN ALFA 10,000 UNIT/ML VIAL SQ ONE (17:17)
--- NOTE | 2023-09-03 17:54 | P.PN ---
Subjective Date of Service: 09/03/23 Chief Complaint: Anemia; ESRD; right pleural effusion Subjective no overnight events next HD on Tuesday plan for possible thoracentecis Physical Examination: General: Awake, alert, oriented x3. Not in distress. Neck: Supple. No elevated JVD. Heart: Regular rate and rhythm. Normal S1, S2. Chest: Clear to auscultation bilaterally. No rales or wheezes. Abdomen: Soft, nontender. Extremities: Have some swelling. Assessment And Plan: History Of Present Illness: This is a 53-year-old woman with past medical history of end-stage renal disease, on hemodialysis, Tuesday, Tuesday, and Tuesday via AV fistula, diabetes, hypothyroidism, hypertension, and CHF. The patient presented complaining of shortness of breath and weakness, found to have anemia, hemoglobin 6.8. She was recently admitted to [facility] for shortness of breath, required paracentesis with 700 fluid removal. The patient had dialysis on Tuesday with blood transfusion and 3.5 L removal. # End-stage renal disease. The patient had dialysis Tuesday of 3.5 fluid removal. Continue dialysis on Tuesday. Renal dose medication. #. Anemia of chronic disease. Monitor status post PRBC and will give Epogen. #. Coronary artery disease. Continue cardiac meds. Cardiology consult appreciated. #. Congestive heart failure. Continue dialysis with UF as tolerated. Low-salt diet. #pleural effusion : plan for possible thoracentecis Thanks for allowing me to participate in patient care. Total time I spent 55 minutes including documentation, reviewing labs, and discussing with the patient and medical staff. Physical Examination - Vital Signs Temperature: 97.5 F Blood Pressure: 149/80 Pulse: 68 Respirations: 14 Pulse Ox (%): 99
[2023-09-03] MEDS: HYDRALAZINE HCL 20 MG/ML VIAL IV PRN (21:42)
[2023-09-04 07:00] LABS: Absolute Eosinophils 0.2 K/uL (0-0.5); Absolute Lymphocytes (CBC) 0.6 K/uL (0.7-4.9); Absolute Monocytes 0.5 K/uL (0.1-1.3); Absolute Neutrophil 4.9 K/uL (1.8-8.0); Basophils % 0.7 % (0-1.3); Eosinophils % 3.1 % (0-4.4); Hematocrit 31.9 % (36.0-45.0); Hemoglobin 10.7 g/dL (12.0-15.0); Lymphocytes % 9.1 % (15.3-44.8); MCH 30.1 pg (27.0-35.0); MCHC 33.6 g/dL (32.0-36.0); MCV 89.4 fL (80-100); MPV 7.9 fL (7.6-11.3); Neutrophils % 79.1 % (41.7-73.7); Nucleated Red Blood Cells % 0.1 % (0-0); Platelets 332 thou/uL (152-406); RBC Red Blood Cell Count 3.57 M/uL (3.86-4.86)
[2023-09-04 07:44] LABS: Anion Gap 12.8 mEq/L (5.0-15.0); Magnesium 2.1 mg/dL (1.6-2.4); Potassium 3.8 mEq/L (3.5-5.1)
--- NOTE | 2023-09-04 14:15 | P.PN ---
Date of Service: 09/04/23 Subjective Right pleural effusion, plan for dialysis and thoracentesis on Tuesday 7-1 will need to hold Plavix prior to proceed Review of Systems 10-point ROS is otherwise unremarkable Physical Examination - Vital Signs reviewed - Physical Exam General: Alert, oriented x 3, afebrile HEENT: Atraumatic, PERRLA, EOMI Respiratory: Diminished on the right, unlabored Cardiovascular: S1-S2, regular rate and rhythm Gastrointestinal: Normal bowel sounds, No tenderness Musculoskeletal: No tenderness Integumentary: No rashes Neurological: Normal speech, Normal tone, Normal affect Assessment And Plan - Current Problems (Diagnosis) End-stage renal disease on hemodialysis Nephrology consult, hemodialysis Fluid volume overload 09/01 Hemodialysis on Tuesday, repeat hemodialysis Tuesday NSTEMI, elevated troponin Elevated BNP Congestive heart failure Hypertension CAD Cardiology consulted History coronary angiogram done today that shows patent LAD stents Continue Lasix 80 mg po BID Continue Coreg 25 mg po BID Continue ASA 81 mg daily for life. Continue Plavix 75 mg daily for 12 months Continue Lipitor 40 mg daily Anemia of chronic disease Trend H&H, Transfuse during hemodialysis Pleural effusion, Purulent pulmonary consulted for evaluation for thoracentesis Plan for outpatient thoracentesis, hold Plavix prior to procedure Per pulmonary patient needs to hold Plavix prior to thoracentesis, thoracentesis can be done outpatient Full code DVT heparin Diet renal Disposition Home independent <Becky Serrano - Last Filed: 09/04/23 14:13> Chart has been reviewed. Events of the last 24 hours have been noted. Case discussed with CANDI. I performed a substantial part of the MDM during this patient's care today. I personally made or approved the documented management plan and acknowledge its risk of complications. I agree with the findings and documentation provided in the CANDI's notes Continue with hemodialysis per nephrology. Arranging for thoracentesis on Tuesday and monitoring H&H. Patient given 2 units of packed red blood cells during hemodialysis and hemoglobin has been stable. If thoracentesis is completed on Tuesday and clinically continues to do well then anticipate discharge home. <Ulysses Salcedo - Last Filed: 09/06/23 03:49>
--- NOTE | 2023-09-04 16:21 | P.PN ---
Subjective Date of Service: 09/04/23 Chief Complaint: Anemia; ESRD; right pleural effusion Subjective no overnight events barraza for HD and for possible thoracentecis tomorrow Physical Examination: General: Awake, alert, oriented x3. Not in distress. Neck: Supple. No elevated JVD. Heart: Regular rate and rhythm. Normal S1, S2. Chest: Clear to auscultation bilaterally. No rales or wheezes. Abdomen: Soft, nontender. Extremities: Have some swelling. Assessment And Plan: History Of Present Illness: This is a 53-year-old woman with past medical history of end-stage renal disease, on hemodialysis, Tuesday, Tuesday, and Tuesday via AV fistula, diabetes, hypothyroidism, hypertension, and CHF. The patient presented complaining of shortness of breath and weakness, found to have anemia, hemoglobin 6.8. She was recently admitted to [facility] for shortness of breath, required paracentesis with 700 fluid removal. The patient had dialysis on Tuesday with blood transfusion and 3.5 L removal. # End-stage renal disease. The patient had dialysis Tuesday of 3.5 fluid removal. Next dialysis tomorrow Renal dose medication. #. Anemia of chronic disease. Monitor status post PRBC , cont Epogen. #. Coronary artery disease. Continue cardiac meds. Cardiology consult appreciated. #. Congestive heart failure. Continue dialysis with UF as tolerated. Low-salt diet. #pleural effusion : plan for possible thoracentecis Thanks for allowing me to participate in patient care. Total time I spent 55 minutes including documentation, reviewing labs, and discussing with the patient and medical staff. Physical Examination - Vital Signs Temperature: 98.1 F Blood Pressure: 145/70 Pulse: 74 Respirations: 17 Pulse Ox (%): 92
[2023-09-05 08:30] LABS: Absolute Eosinophils 0.2 K/uL (0-0.5); Absolute Lymphocytes (CBC) 0.7 K/uL (0.7-4.9); Absolute Monocytes 0.6 K/uL (0.1-1.3); Absolute Neutrophil 5.7 K/uL (1.8-8.0); Basophils % 0.6 % (0-1.3); Eosinophils % 2.2 % (0-4.4); Hematocrit 29.4 % (36.0-45.0); Lymphocytes % 9.1 % (15.3-44.8); MCH 30.5 pg (27.0-35.0); MCHC 34.2 g/dL (32.0-36.0); MCV 89.3 fL (80-100); MPV 7.5 fL (7.6-11.3); Monocytes % 8.1 % (3.3-12.3); Nucleated Red Blood Cells % 0.1 % (0-0); Platelets 350 thou/uL (152-406); RBC Red Blood Cell Count 3.29 M/uL (3.86-4.86); Red Cell Distribution Width 13.4 % (12.1-15.2)
[2023-09-05 09:19] LABS: Anion Gap 12.8 mEq/L (5.0-15.0); Magnesium 2.3 mg/dL (1.6-2.4); Potassium 3.8 mEq/L (3.5-5.1)
--- NOTE | 2023-09-05 11:58 | P.PN ---
Subjective Date of Service: 09/05/23 Chief Complaint: Anemia; ESRD; right pleural effusion Pt is resting comfortably in bed. She is waiting for thoracentesis. Pt denies any edema. No other complaints. Review of Systems General: Unremarkable Eyes: Unremarkable ENT: Unremarkable Respiratory: SOB with Excertion Cardiovascular: Unremarkable Gastrointestinal: Unremarkable Genitourinary: Unremarkable Musculoskeletal: Unremarkable Integumentary: Unremarkable Neurological: Unremarkable Lymphatics: Unremarkable Physical Examination - Vital Signs Temperature: 98.1 F Blood Pressure: 166/80 Pulse: 76 Respirations: 18 Pulse Ox (%): 93 - Physical Exam General: Alert, In no apparent distress, Oriented x3 HEENT: Atraumatic, Normocephalic, PERRLA Neck: Supple, 2+ carotid pulse no bruit Respiratory: Clear to auscultation bilaterally, Normal air movement, Diminished Cardiovascular: No edema, Normal pulses, Regular rate/rhythm, Normal S1 S2 Capillary refill: <2 Seconds Gastrointestinal: Normal bowel sounds, Soft and benign, Non-distended Musculoskeletal: No clubbing, No swelling, No contractures Integumentary: No rashes, No breakdown, No significant lesion Neurological: Normal speech, Normal strength at 5/5 x4 extr, Normal tone Lymphatics: No axilla or inguinal lymphadenopathy Assessment And Plan - Plan End-stage renal disease on hemodialysis. Pt had fluid overload on admission. Will do HD today. Nephrology is following. NSTEMI, elevated troponin: Pt had Cardiac cath which showed patent LAD. Will continue medical therapy. Hx of Congestive heart failure: Will continue lasix 80mg po BID, strict I/O and daily weight. Hypertension: Continue coreg. CAD: Continue aspirin, plavix and lipitor. Anemia of chronic disease: Hgb is 10. Will monitor H/H. Moderate right Pleural effusion: Holding plavix for thoracentesis. DVT ppx: SCD Code: full Dispo: Pending hospital course.
--- NOTE | 2023-09-05 12:19 | P.DS ---
Admission Date: 09/01/23 Discharge Date: 09/05/23 Disposition: ROUTINE DISCHARGE Reason for Admission: Anemia; ESRD; right pleural effusion Procedures: thoracentesis Brief History of Present Illness: Patient is a 53-year-old female who came to the hospital with shortness of breath. She has been coughing quite a bit. She was recently at [facility] and had right-sided pleural effusion. She had 700 cc of fluid removed. She also has been anemic but this has been chronic with her dialysis. She denies any active bleeding. She denies any pleuritic chest pain. At this time patient has a hemoglobin of 6.8 so we will go ahead and give her 2 units of packed red blood cells during dialysis. Will also do a decubitus x-ray to see if her fluid layers and this may benefit from thoracentesis. Will consult nephrology for hemodialysis and give patient blood during dialysis. Thoracentesis hopefully in the morning. Patient will be admitted to the hospital for inpatient hospitalization. Vital Signs/Physical Exam: Temp Pulse Resp BP Pulse Ox 98.1 F 76 18 166/80 H 93 09/05/23 12:09 09/05/23 12:09 09/05/23 12:09 09/05/23 12:09 09/05/23 12:09 Laboratory Data at Discharge: WBC 7.20 thou/uL (4.3-10.9) 09/05/23 06:45 Hgb 10.0 g/dL (12.0-15.0) L 09/05/23 06:45 Hct 29.4 % (36.0-45.0) L 09/05/23 06:45 Plt Count 350 thou/uL (152-406) 09/05/23 06:45 PT 12.4 SECONDS (9.4-12.5) 09/02/23 02:22 INR 1.13 09/02/23 02:22 Sodium 135 mEq/L (136-145) L 09/05/23 06:45 Potassium 3.8 mEq/L (3.5-5.1) 09/05/23 06:45 BUN 56 mg/dL (7-18) H 09/05/23 06:45 Creatinine 4.72 mg/dL (0.55-1.02) H 09/05/23 06:45 Glucose 207 mg/dL (74-106) H 09/05/23 06:45 Phosphorus 4.7 mg/dL (2.5-4.9) 09/02/23 02:22 Magnesium 2.3 mg/dL (1.6-2.4) 09/05/23 06:45 Total Bilirubin 0.3 mg/dL (0.2-1.0) 09/02/23 12:25 AST 20 U/L (15-37) 09/02/23 12:25 ALT 36 U/L (13-56) 09/02/23 12:25 Alkaline Phosphatase 229 U/L (45-117) H 09/02/23 12:25 Home Medications: Clopidogrel Bisulfate [Plavix*] 1 tab PO DAILY 07/19/22 Furosemide [Lasix] 80 mg PO BID #60 tab 02/19/23 Ferrous Sulfate [Ferrous Sulfate*] 325 mg PO M,W,F 07/14/23 Potassium Chloride 20 meq PO DAILY 30 Days #30 tab 07/22/23 Thyroid Tab [[place]xton Thyroid*] 60 mg PO DAILY@0600 tab 07/22/23 Aspirin [Aspirin EC 81 MG] 81 mg PO DAILY #180 tab 07/26/23 Atorvastatin Calcium [Lipitor] 40 mg PO BEDTIME #90 tab 07/26/23 Blood Sugar Diagnostic [Freestyle Lite Test Strip] 1 each MC TID #1 unit 07/26/23 Blood-Glucose Meter,Continuous [Freestyle Tea 3 [place]el[place]] 1 each MC DAILY #1 ea 07/26/23 Blood-Glucose Sensor [Freestyle Tea 3 Sensor] 1 each MC DAILY #1 ea 07/26/23 Cholecalciferol (Vitamin D3) [Vitamin D 1000 Iu Tab*] 4,000 unit PO DAILY #90 tab 07/26/23 Pantoprazole [Protonix Tab*] 20 mg PO M,W,F #60 tab 07/26/23 Insulin Glargine,Hum.rec.anlog [Semglee] 20 unit SQ DAILY #2 udpkt 08/19/23 carvediloL [Coreg*] 25 mg PO DAILY 09/01/23 Physician Discharge Instructions: -DC IV and DC home -Follow-up with PCP in 1 to 2 weeks -Follow-up with Cardiology in 1 to 2 weeks -Follow-up with Nephrology in 1 to 2 weeks -Please call Dr. Salcedo at [phone] if any questions regarding hospital stay -Please call nursing station at [phone] if any nursing or medication questions -Return to the emergency room if symptoms worsen Diet: Renal Activity: Ad sarita Followup: Jeet Manley MD [Primary Care Provider] - Mata Nagy MD [ACTIVE - CAN ADMIT] -
--- NOTE | 2023-09-05 12:30 | RAD REPORT ---
EXAM DESCRIPTION: US - Thoracentesis w/ US Guide - 09/05/2023 10:26 am CLINICAL HISTORY: Pleural effusion. right pleural effusion COMPARISON: Fluoroscopy <1 Hour dated 07/19/2023 FINDINGS: Preoperative diagnosis: Right pleural effusion. Post operative diagnosis: Same Conscious Sedation: None. Estimated blood loss: Minimal Specimens: 1 liter of fluid was aspirated. The pleural effusion was bloody. Image Guidance: Ultrasound Complications: None IMPRESSION: Successful ultrasound-guided thoracentesis as detailed. The right pleural effusion was b loody. Approximate 1 liter of fluid was aspirated. The patient was unable to tolerate any additional withdrawal of fluid.
[2023-09-05] MEDS: EPOETIN ALFA 10,000 UNIT/ML VIAL IV SCH (13:30)
--- NOTE | 2023-09-05 14:24 | EKG ---
Test Date: 2023-09-01 Test Time: 15:29:26 Sales Administrator: AVI MEASUREMENT RESULTS: Intervals: Rate: 74 TN: 138 QRSD: 76 QT: 416 QTc: 461 Waterman: P: TN: 138 QRS: 129 T: -51 INTERPRETIVE STATEMENTS: Normal sinus rhythm ST & T wave abnormality, consider lateral ischemia Prolonged QT Abnormal ECG Compared to ECG 08/23/2023 23:15:44 ST (T wave) deviation now present T-wave abnormality no longer present Possible ischemia still present Electronically Signed On 09-05-23 14:16:48 CDT by Heri Encarnacion
[2023-09-05 16:40] VITALS: O2SAT 95
[2023-09-05 17:52] VITALS: BP 162/77; TEMP 97.8
--- NOTE | 2023-09-05 22:33 | PN ---
Date of Progress Note: 09/05/2023 Chief Complaint: End-stage renal disease, fluid overload, right pleural effusion. Subjective: The patient is a 53-year-old woman with past medical history of end-stage renal disease, on hemodialysis Tuesday, Tuesday, and Tuesday. She received last dialysis on Tuesday. The patient has diabetes mellitus, hypothyroidism. She underwent thoracentesis today for her pleural effusion. The patient has history of congestive heart failure exacerbation and fluid overload. She received d ialysis with ultrafiltration on Tuesday and Tuesday with 3.5 L fluid removal. The patient has santiago ry artery disease and Cardiology was consulted for coronary artery disease, congestive heart failure. Patient currently does not have active chest pain. She is on low sodium diet for fluid overload an d pleural effusion and today thoracentesis was scheduled. Review of Systems: Denies chest pain, palpitation. Physical Examination: LUNGS: Clear to auscultation bilaterally. HEART: S1-S2. ABDOMEN: Soft. EXTREMITIES: Slight edema. Impression And Plan: 1.End stage renal disease, next dialysis tomorrow. 2.Pleural effusion status post thoracentesis. Further recommendation from primary team. 3.Diabetes mellitus. Blood glucose was uncontrolled, but gradually improving from 392 to 207. Cont inue insulin. The patient received instructions for insulin treatment. 4.Anemia in CKD. Hemoglobin level is 10. The patient will continue JOSE. The patient received bloo d transfusion and hemoglobin improved from 6.3 to 9.6. Continue JOSE with dialysis. 5.Renal osteodystrophy. Monitor phosphorus level. Continue binders and low phosphorus diet. 6.Congestive heart failure exacerbation, pleural effusion, status post thoracentesis. Continue p.o. fluid restriction. Follow up with Cardiology for coronary artery disease. EB/MODL Voice ID: [id number] Report ID: [id number]
[2023-09-06 14:56] LABS: Body Fluid Source PLEURAL; Tube # SINGLE
[2023-09-06 14:58] LABS: Color of fluid Red (COLORLESS)
[2023-09-06 14:59] LABS: Appearance VERY TURBID (CLEAR); Body Fluid WBC 61 /mm^3
[2023-09-06 15:05] LABS: Body Fluid Lymphocytes 29 %; Fluid Total Cells Count 100
== END 2023-09-05 18:30 | disposition home or self-care (01) | DRG 280 ==
LOC: ER 13:41 → ERHOLD 18:32 → 4TH 18:59
PROVIDERS: ADMIT Hospitalist; ATTEND Hospitalist
PROC: 5A1D70Z Performance of Urinary Filtration, Intermittent, Less than 6 Hours Per Day (ICD-10-PCS; 2023-09-02)
PROC: 30233N1 Transfusion of Nonautologous Red Blood Cells into Peripheral Vein, Percutaneous Approach (ICD-10-PCS; 2023-09-02)
PROC: 0W993ZX Drainage of Right Pleural Cavity, Percutaneous Approach, Diagnostic (ICD-10-PCS; principal; 2023-09-05)
DX: I13.2 Hypertensive heart and chronic kidney disease with heart failure and with stage 5 chronic kidney disease, or end stage renal disease (principal); I50.23 Acute on chronic systolic (congestive) heart failure; I21.A1 Myocardial infarction type 2; J96.01 Acute respiratory failure with hypoxia; N18.6 End stage renal disease; E11.22 Type 2 diabetes mellitus with diabetic chronic kidney disease; D63.1 Anemia in chronic kidney disease; N25.0 Renal osteodystrophy; I27.29 Other secondary pulmonary hypertension; E03.9 Hypothyroidism, unspecified; I25.10 Atherosclerotic heart disease of native coronary artery without angina pectoris; Z99.2 Dependence on renal dialysis; Z88.5 Allergy status to narcotic agent; Z79.4 Long term (current) use of insulin; Z88.1 Allergy status to other antibiotic agents; Z95.5 Presence of coronary angioplasty implant and graft; Z98.51 Tubal ligation status; Z79.82 Long term (current) use of aspirin; Z79.02 Long term (current) use of antithrombotics/antiplatelets; Z90.49 Acquired absence of other specified parts of digestive tract; Z87.891 Personal history of nicotine dependence
CPT/HCPCS: 32555; 36415; 71045; 71046; 76604; 80048; 80076; 81001; 82607; 82945; 82947; 83540; 83735; 83880; 84100; 84484; 85014; 85018; 85025; 85044; 85610; 86850; 86900; 86901; 86920; 87070; 87086; 87088; 87340; 88108; 88305; 89050; 90935; 93005; 96374; 99285; J0360; J1644; J1940; P9016; Q4081

== ENCOUNTER 2023-10-19 16:05 | Observation (INO) | payer OTHER ==
[2023-10-19] MEDS ORDERED: ONDANSETRON 4 MG/2 ML VIAL ONE (16:41)
[2023-10-19 16:51] LABS: Absolute Eosinophils 0.1 K/uL (0-0.5); Absolute Lymphocytes (CBC) 0.7 K/uL (0.7-4.9); Absolute Monocytes 0.4 K/uL (0.1-1.3); Absolute Neutrophil 3.4 K/uL (1.8-8.0); Basophils % 0.4 % (0-1.3); Eosinophils % 2.8 % (0-4.4); Hematocrit 29.8 % (36.0-45.0); Hemoglobin 9.7 g/dL (12.0-15.0); Lymphocytes % 15.1 % (15.3-44.8); MCH 28.6 pg (27.0-35.0); MCHC 32.7 g/dL (32.0-36.0); MCV 87.3 fL (80-100); MPV 7.6 fL (7.6-11.3); Monocytes % 8.7 % (3.3-12.3); Nucleated Red Blood Cells % 0.1 % (0-0); PT Prothrombin Time 11.9 SECONDS (9.4-12.5); Platelets 258 thou/uL (152-406); Protime INR 1.06; RBC Red Blood Cell Count 3.41 M/uL (3.86-4.86); Red Cell Distribution Width 15.1 % (12.1-15.2)
--- NOTE | 2023-10-19 17:00 | RAD REPORT ---
EXAM DESCRIPTION: Gustavo Single View10/19/2023 4:51 pm CLINICAL HISTORY: Abdominal pain COMPARISON: September 2023 FINDINGS: Small right pleural effusion [id number] bilateral pulmonary opacities. Cardiomegaly. Central venous catheter in place IMPRESSION: These findings probably indicate CHF
[2023-10-19] MEDS ORDERED: FAMOTIDINE 20 MG/2 ML VIAL IV ONE (17:25)
[2023-10-19 17:26] LABS: Specific Gravity 1.012 (1.005-1.030); Urine Bacteria None Seen /HPF (<20); Urine Bilirubin NEGATIVE (Negative); Urine Blood 2+ (Negative); Urine Clarity Extremely Turbid (Clear); Urine Color Light-Yellow (Yellow); Urine Culture Reflex Order NOT NEEDED; Urine Glucose 3+ (Negative); Urine Ketones NEGATIVE (Negative); Urine Microscopic Reflex YN ORDER UMIC; Urine Mucus Slight /HPF (None Seen); Urine Nitrite NEGATIVE (Negative); Urine Protein 3+ (Negative); Urine Urobilinogen Normal (Normal); Urine Yeast (Budding) Few /HPF (None Seen)
[2023-10-19 17:29] LABS: Albumin 2.6 g/dL (3.4-5.0); Albumin/Globulin Ratio 0.6 (1.1-1.8); Anion Gap 14.3 mEq/L (5.0-15.0); Bilirubin Direct 0.2 mg/dL (0-0.2); Bilirubin Indirect, Calculated 0.1 mg/dL (0.2-0.8); Bilirubin Total 0.3 mg/dL (0.2-1.0); Globulin 4.2 g/dL (2.3-3.5); Magnesium 2.4 mg/dL (1.6-2.4); Potassium 3.3 mEq/L (3.5-5.1); Protein, Total 6.8 g/dL (6.4-8.2); Troponin High Sensitivity 45.7 pg/mL (<58.9)
--- NOTE | 2023-10-19 18:03 | RAD REPORT ---
EXAM DESCRIPTION: CT - Chest Abd Pelvis Wo Con - 10/19/2023 5:34 pm CLINICAL HISTORY: Chest and abdominal pain COMPARISON: August 2023 CT chest TECHNIQUE: Computed axial tomography of the chest, abdomen and pelvis was obtained. Oral contrast wa s given. IV contrast was not requested. All CT scans are performed using dose optimization technique as appropriate and may include automated exposure control or mA/KV adjustment according to patient size. FINDINGS: The evaluation of mediastinum, kelley, vessels and solid organs is limited secondary to the lack of IV contrast administration Mild to moderate right and mild left pulmonary opacities No mediastinal or hilar lymphadenopathy is seen. Moderate right and small left pleural effusions Coronary arterial calcifications. A small pericardial effusion The liver, spleen, pancreas, adrenals appear grossly normal Kidneys mildly diminished size There is no evidence of diverticulitis. No adnexal mass. Diffuse edema within subcutaneous tissues. Prominent atherosclerosis IMPRESSION: Moderate right pleural effusion Mild to moderate right mild left pulmonary opacities probably pulmonary edema
--- NOTE | 2023-10-19 18:05 | RAD REPORT ---
EXAM DESCRIPTION: US - Liver Only - 10/19/2023 5:31 pm CLINICAL HISTORY: Abdominal pain COMPARISON: None FINDINGS: The liver has a homogeneous echotexture which is normal. . Hepatopetal flow. A lesion is n ot visualized. The spleen measures 12 centimeters Cholecystectomy Echogenic kidneys compatible with chronic disease Moderate right pleural effusion IMPRESSION: Moderate right pleural effusion
--- NOTE | 2023-10-19 18:19 | EDPHYS ---
Physician Documentation [facility] Name: Alyson Mayfield Age: 53 yrs Sex: Female : 1970 Arrival Date: 10/19/2023 Time: 16:05 Bed 15 Private MD: ED Physician Mick Gallardo HPI: 10/18 17:06 This 53 yrs old Female presents to ER via Ambulatory with complaints of radu Vomiting. 17:06 The patient presents to the emergency department with nausea, vomiting. Onset: The radu symptoms/episode began/occurred just prior to arrival. Possible causes: unknown. The symptoms are aggravated by nothing. The symptoms are alleviated by nothing. Associated signs and symptoms: Pertinent positives: abdominal pain, nausea, vomiting. 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 - Infectious Disease History:: Denies. - Social history:: Smoking status: Patient denies any tobacco usage or history of. - Family history:: not pertinent. ROS: 17:06 Constitutional: Negative for fever, chills, and weight loss, Eyes: Negative for injury, radu pain, redness, and discharge, ENT: Negative for injury, pain, and discharge, Neck: Negative for injury, pain, and swelling, Cardiovascular: Negative for chest pain, palpitations, and edema, Respiratory: Negative for shortness of breath, cough, wheezing, and pleuritic chest pain, Back: Negative for injury and pain, : Negative for injury, bleeding, discharge, and swelling, MS/Extremity: Negative for injury and deformity, Skin: Negative for injury, rash, and discoloration, Neuro: Negative for headache, weakness, numbness, tingling, and seizure, Psych: Negative for depression, anxiety, suicide ideation, homicidal ideation, and hallucinations, Allergy/Immunology: Negative for hives, rash, and allergies, Endocrine: Negative for neck swelling, polydipsia, polyuria, polyphagia, and marked weight changes, Hematologic/Lymphatic: Negative for swollen nodes, abnormal bleeding, and unusual bruising, 17:06 Abdomen/GI: Positive for abdominal pain, nausea and vomiting, Exam: 17:06 Constitutional: This is a well developed, well nourished patient who is awake, alert, radu and in no acute distress. Head/Face: Normocephalic, atraumatic. Eyes: Pupils equal round and reactive to light, extra-ocular motions intact. Lids and lashes normal. Conjunctiva and sclera are non-icteric and not injected. Cornea within normal limits. Periorbital areas with no swelling, redness, or edema. ENT: Nares patent. No nasal discharge, no septal abnormalities noted. Tympanic membranes are normal and external auditory canals are clear. Oropharynx with no redness, swelling, or masses, exudates, or evidence of obstruction, uvula midline. Mucous membranes moist. Neck: Trachea midline, no thyromegaly or masses palpated, and no cervical lymphadenopathy. Supple, full range of motion without nuchal rigidity, or vertebral point tenderness. No Meningismus. Chest/axilla: Normal chest wall appearance and motion. Nontender with no deformity. No lesions are appreciated. Cardiovascular: Regular rate and rhythm with a normal S1 and S2. No gallops, murmurs, or rubs. Normal PMI, no JVD. No pulse deficits. Respiratory: Lungs have equal breath sounds bilaterally, clear to auscultation and percussion. No rales, rhonchi or wheezes noted. No increased work of breathing, no retractions or nasal flaring. Back: No spinal tenderness. No costovertebral tenderness. Full range of motion. Female : Normal external genitalia. Skin: Warm, dry with normal turgor. Normal color with no rashes, no lesions, and no evidence of cellulitis. MS/ Extremity: Pulses equal, no cyanosis. Neurovascular intact. Full, normal range of motion. Neuro: Awake and alert, GCS 15, oriented to person, place, time, and situation. Cranial nerves II-XII grossly intact. Motor strength 5/5 in all extremities. Sensory grossly intact. Cerebellar exam normal. Normal gait. Psych: Awake, alert, with orientation to person, place and time. Behavior, mood, and affect are within normal limits. 17:06 Abdomen/GI: Inspection: abdomen appears normal, Bowel sounds: normal, Palpation: mild abdominal tenderness, moderate abdominal tenderness, in the right upper quadrant, Liver: is enlarged, palpable 6 cm(s) below rib margin, Hernia: not appreciated, 17:06 Musculoskeletal/extremity: Extremities: all appear grossly normal, with no appreciated pain with palpation, ROM: no acute changes, Circulation is intact in all extremities. Sensation intact. Compartment Syndrome exam of affected extremity: is normal. 17:20 ECG was reviewed by the Attending Physician. [facility] Vital Signs: 16:17 BP 178 / 83; Pulse 64; Resp 16; Temp 97.4; Pulse Ox 96% ; Weight 51.26 kg; Height 5 ft. dd2 2 in. ; 16:30 BP 159 / 81; Pulse 64; Resp 16; Pulse Ox 98% on R/A; me1 17:00 BP 155 / 76; Pulse 64; Resp 16; Pulse Ox 98% on R/A; me1 18:00 BP 137 / 71; Pulse 64; Resp 16; Pulse Ox 97% on R/A; me1 19:00 BP 132 / 61; Pulse 65; Resp 16; Pulse Ox 96% on R/A; me1 20:00 BP 145 / 70; Pulse 65; Resp 15; Pulse Ox 93% on R/A; me1 21:00 BP 144 / 88; Pulse 65; Resp 16; Temp 98.2; Pulse Ox 96% on R/A; me1 22:00 BP 148 / 84; Pulse 63; Resp 14; Pulse Ox 95% on R/A; me1 16:17 Body Mass Index 20.67 (51.26 kg, 157.48 cm) dd2 MDM: 16:08 Patient medically screened. [facility] 17:09 Differential diagnosis: Nonspecific abd pain, gastritis, pancreatitis, viral [facility] gastroenteritis, gastroenteritis. Data reviewed: vital signs, nurses notes, EMS record, lab test result(s), EKG, radiologic studies, CT scan, plain films. Consideration of Admission/Observation Escalation of care including admission/observation considered. I considered the following discharge prescriptions or medication management in the emergency department Medications were administered in the Emergency Department. See MAR. Historians other than the Patient: pt well informrd. Care significantly affected by the following chronic conditions: Diabetes, Hypertension, Congestive Heart Failure, Chronic Kidney Disease. Counseling: I had a detailed discussion with the patient and/or guardian regarding the historical points, exam findings, and any diagnostic results supporting the discharge/admit diagnosis, lab results, radiology results, the need for further work-up and treatment in the hospital. 10/18 16:16 Order name: Basic Metabolic Panel; Complete Time: 18:13 [facility] 10/18 16:16 Order name: CBC with Diff; Complete Time: 18:13 [facility] 10/18 16:16 Order name: LFT's; Complete Time: 18:13 [facility] 10/18 16:16 Order name: Magnesium; Complete Time: 18:13 [facility] 10/18 16:16 Order name: NT PRO-BNP; Complete Time: 18:13 [facility] 10/18 16:16 Order name: PT-INR; Complete Time: 18:13 [facility] 10/18 16:16 Order name: Troponin HS; Complete Time: 18:13 [facility] 10/18 16:16 Order name: Lipase; Complete Time: 18:13 [facility] 10/18 16:16 Order name: Urinalysis w/ reflexes; Complete Time: 18:13 [facility] 10/18 16:16 Order name: XRAY Chest (1 view); Complete Time: 18:13 [facility] 10/18 17:03 Order name: CT Chest Abdomen Pelvis W/O Contrast; Complete Time: 18:13 [facility] 10/18 17:32 Order name: Liver Only; Complete Time: 18:13 [facility] 10/18 19:29 Order name: CONS Physician Consult [facility] 10/18 16:16 Order name: Cardiac monitoring; Complete Time: 17:04 [facility] 10/18 16:16 Order name: EKG - Nurse/Tech; Complete Time: 17:04 [facility] 10/18 16:16 Order name: IV Saline Lock; Complete Time: 16:39 [facility] 10/18 16:16 Order name: Labs collected and sent; Complete Time: 16:39 [facility] 10/18 16:16 Order name: O2 Per Protocol; Complete Time: 16:39 [facility] 10/18 16:16 Order name: O2 Sat Monitoring; Complete Time: 16:39 [facility] EC:20 Rate is 63 beats/min. Rhythm is regular. QRS [place] is Normal. [place] interval is normal. QRS radu interval is normal. QT interval is normal. No Q waves. T waves are Inverted in leads I, aVL, V4, V5, V6. Clinical impression: Abnormal EKG without significant change. Interpreted by me. Reviewed by me. Administered Medications: 16:40 CANCELLED (Physician Discretion): ns 0.9% 1000 ml IV at 1 bolus Per protocol; 1000 mL bp bolus 16:42 Drug: Ondansetron IVP 4 mg IVP once; over 2 minutes Route: IVP; Site: right antecubital;me1 16:53 Follow up: Response: No adverse reaction; Nausea is decreased me1 17:26 Drug: Famotidine IVP 20 mg IVP once; dilute with 10 mL 0.9% NaCl; give over 2 minutes me1 Route: IVP; Site: right antecubital; 17:32 Follow up: Response: No adverse reaction me1 18:38 Drug: Rocephin IV 1 grams IV at per protocol once; Given slow IV push per pharmacy me1 instructions Route: IV; Rate: per protocol; Site: right antecubital; 18:51 Follow up: Response: No adverse reaction; IV Status: Completed infusion me1 Disposition Summary: 10/19/23 18:18 Hospitalization Ordered Notes: Hospitalization Status: Observation radu Provider: Gaudencio Arriaga cha Location: Telemetry/[facility]Sur (observation) radu Condition: Fair radu Problem: new radu Symptoms: have improved radu Bed/Room Type: Standard radu Room Assignment: 229(10/19/23 21:22) rv1 Diagnosis - Dependence on renal dialysis - m,w,f radu - Combined systolic (congestive) and diastolic (congestive) heart failure radu - Vomiting radu - UTI/ Urinary tract infection, site not specified radu - Pleural effusion, not elsewhere classified - right moderate radu Forms: - Medication Reconciliation Form radu - SBAR form radu - Leadership Thank You Letter radu Signatures: Dispatcher [employer] EDMick Cervantes MD MD cha Peltier, Brian, RN RN Polina Phelps rv1 Loree Daigle RN RN me1 CLEVELAND PRETTY RN RN dd2 Corrections: (The following items were deleted from the chart) 16:17 16:17 BASIC METABOLIC PANEL+C.LAB.BRZ ordered. EDMS EDMS 16:17 16:17 CBC+H.LAB.BRZ ordered. EDMS EDMS 16:17 16:17 HEPATIC FUNCTION+C.LAB.BRZ ordered. EDMS EDMS 16:17 16:17 MAGNESIUM+C.LAB.BRZ ordered. EDMS EDMS 16:17 16:17 PROBNP+C.LAB.BRZ ordered. EDMS EDMS 16:17 16:17 PROTIME (+INR)+COAG.LAB.BRZ ordered. EDMS EDMS 16:17 16:17 Troponin High Sensitivity+C.LAB.BRZ ordered. EDMS EDMS 16:17 16:17 LIPASE+C.LAB.BRZ ordered. EDMS EDMS 16:17 16:17 Urinalysis+U.LAB.BRZ ordered. EDMS EDMS 16:17 16:17 Chest Single View+RAD.RAD.BRZ ordered. EDMS EDMS 16:20 16:19 PMHx: Dialysis M; dd2 dd2 16:20 16:19 PMHx: Dialysis M; dd2 dd2 16:20 16:19 PMHx: Dialysis M; dd2 dd2 16:20 16:19 PMHx: Dialysis M,W,F; dd2 dd2 16:40 16:16 NS 0.9% IV 1000 ml IV at 1 bolus Per protocol; 1000 mL bolus ordered. radu bp 17:03 17:03 Chest Abdomen Pelvis Wo Con+CT.RAD.BRZ ordered. EDMS EDMS 17:03 17:03 Abdomen Limited+US.RAD.BRZ ordered. EDMS EDMS 21:22 18:18 radu rv1
--- NOTE | 2023-10-19 18:19 | ER ---
Nurse's Notes [facility] Name: Alyson Mayfield Age: 53 yrs Sex: Female : 1970 Arrival Date: 10/19/2023 Time: 16:05 Bed 15 Private MD: Diagnosis: Dependence on renal dialysis-m,w,f;Combined systolic (congestive) and diastolic (congestive) heart failure;Vomiting;UTI/ Urinary tract infection, site not specified;Pleural effusion, not elsewhere classified-right moderate Presentation: 10/18 16:17 Chief complaint: Patient states: been throwing up since last night, cant eat. Last dd2 episode was about 10 minutes ago. Coronavirus screen: At this time, the client does not indicate any symptoms associated with coronavirus-19. Ebola Screen: No symptoms or risks identified at this time. Initial Sepsis Screen: Does the patient meet any 2 criteria? No. Patient's initial sepsis screen is negative. Does the patient have a suspected source of infection? No. Patient's initial sepsis screen is negative. Risk Assessment: Do you want to hurt yourself or someone else? Patient reports no desire to harm self or others. Onset of symptoms was October 19, 2023. 16:17 Method Of Arrival: Ambulatory dd2 16:17 Acuity: KLAUS 3 dd2 Triage Assessment: 16:19 General: Appears ill, Behavior is calm, cooperative, appropriate for age. Pain: dd2 Complains of pain in abdomen. GI: Reports nausea, vomiting. 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 - Infectious Disease History:: Denies. - Social history:: Smoking status: Patient denies any tobacco usage or history of. - Family history:: not pertinent. Screenin:07 [facility] ED Fall Risk Assessment (Adult) History of falling in the last 3 months, me1 including since admission No falls in past 3 months (0 pts) Confusion or Disorientation No (0 pts) Intoxicated or Sedated No (0 pts) Impaired Gait No (0 pts) Mobility Assist Device Used No (0 pt) Altered Elimination No (0 pt) Score/Fall Risk Level 0 - 2 = Low Risk Maintained a safe environment, Provided non-skid footwear, Hourly rounding (assess needs \T\ fall precautionary measures) done. Abuse screen: Denies threats or abuse. Nutritional screening: No deficits noted. Tuberculosis screening: No symptoms or risk factors identified. Assessment: 17:07 General: Appears uncomfortable, ill, well groomed, well developed, well nourished, me1 Behavior is calm, cooperative, appropriate for age, Reports n/v that started last night. Unable to hold anything down. Missed dialysis today because she was vomiting. Pain: Complains of pain in right upper quadrant and abdomen Pain does not radiate. Pain currently is 6 out of 10 on a pain scale. Quality of pain is described as sharp, Pain began gradually, 1 day ago. Is continuous. Pain: Is intermittent. Neuro: Neuro: Level of Consciousness is awake, alert, obeys commands, Oriented to person, place, time, situation, Appropriate for age. Cardiovascular: Patient's skin is warm and dry. Respiratory: Airway is patent Respiratory effort is even, unlabored, Respiratory pattern is regular, symmetrical. GI: Abdomen is round Reports nausea, vomiting, since last night. : Reports dialysis patient M,W,F. Missed today because she was vomiting. EENT: No signs and/or symptoms were reported regarding the EENT system. Derm: Skin is intact, is healthy with good turgor, Skin is pink, warm \T\ dry. Musculoskeletal: No signs and/or symptoms reported regarding the musculoskeletal system. Vital Signs: 16:17 BP 178 / 83; Pulse 64; Resp 16; Temp 97.4; Pulse Ox 96% ; Weight 51.26 kg; Height 5 ft. dd2 2 in. ; 16:30 BP 159 / 81; Pulse 64; Resp 16; Pulse Ox 98% on R/A; me1 17:00 BP 155 / 76; Pulse 64; Resp 16; Pulse Ox 98% on R/A; me1 18:00 BP 137 / 71; Pulse 64; Resp 16; Pulse Ox 97% on R/A; me1 19:00 BP 132 / 61; Pulse 65; Resp 16; Pulse Ox 96% on R/A; me1 20:00 BP 145 / 70; Pulse 65; Resp 15; Pulse Ox 93% on R/A; me1 21:00 BP 144 / 88; Pulse 65; Resp 16; Temp 98.2; Pulse Ox 96% on R/A; me1 22:00 BP 148 / 84; Pulse 63; Resp 14; Pulse Ox 95% on R/A; me1 16:17 Body Mass Index 20.67 (51.26 kg, 157.48 cm) dd2 ED Course: 16:06 Patient arrived in ED. mr 16:08 Mick Gallardo MD is Attending Physician. radu 16:19 Triage completed. dd2 16:19 Arm band placed on right wrist. Patient placed in an exam room, on a stretcher, on dd2 pulse oximetry, Patient notified of wait time. 16:31 Loree Daigle, RN is Primary Nurse. me1 16:38 Initial lab(s) drawn, by sc, sent to lab. Inserted saline lock: 22 gauge in right me1 antecubital area, using aseptic technique. 16:39 Lipase Sent. me1 16:39 Basic Metabolic Panel Sent. me1 16:39 CBC with Diff Sent. me1 16:39 LFT's Sent. me1 16:39 Magnesium Sent. me1 16:39 NT PRO-BNP Sent. me1 16:39 PT-INR Sent. me1 16:39 Troponin HS Sent. me1 16:53 XRAY Chest (1 view) In Process Unspecified. EDMS 17:04 Urinalysis w/ reflexes Sent. me1 17:04 Urine collected: clean catch specimen, cloudy. me1 17:07 Patient has correct armband on for positive identification. Bed in low position. Call me1 light in reach. Side rails up X2. Provided Education on: POC. Verbalized understanding. . Client placed on continuous cardiac and pulse oximetry monitoring. NIBP monitoring applied. quality assurance monitor final on. Pulse ox on. NIBP on. 17:07 No provider procedures requiring assistance completed. me1 17:32 Liver Only In Process Unspecified. EDMS 17:36 CT Chest Abdomen Pelvis W/O Contrast In Process Unspecified. EDMS 18:16 Gaudencio Arriaga MD is Hospitalizing Provider. radu 21:43 Patient admitted, IV remains in place. me1 Administered Medications: 16:40 CANCELLED (Physician Discretion): ns 0.9% 1000 ml IV at 1 bolus Per protocol; 1000 mL bp bolus 16:42 Drug: Ondansetron IVP 4 mg IVP once; over 2 minutes Route: IVP; Site: right antecubital;me1 16:53 Follow up: Response: No adverse reaction; Nausea is decreased me1 17:26 Drug: Famotidine IVP 20 mg IVP once; dilute with 10 mL 0.9% NaCl; give over 2 minutes me1 Route: IVP; Site: right antecubital; 17:32 Follow up: Response: No adverse reaction me1 18:38 Drug: Rocephin IV 1 grams IV at per protocol once; Given slow IV push per pharmacy me1 instructions Route: IV; Rate: per protocol; Site: right antecubital; 18:51 Follow up: Response: No adverse reaction; IV Status: Completed infusion me1 Medication: 17:07 VIS not applicable for this client. sc1 Outcome: 18:18 Decision to Hospitalize by Provider. radu 21:42 Admitted to Med/surg accompanied by tech, room 229, with chart, Report [place] to [facility] [place], receipt confirmed with Laquita 21:42 Condition: stable 21:42 Instructed on the need for admit, 22:26 Patient left the ED. [facility] [place] Signatures: Dispatcher [employer] Mick Thurston MD MD cha Rivera, Mary, Reg Reg mr JoeypeggyLoree RN RN me1 CLEVELAND PRETTY RN RN dd2 Emanuel Benavides RN bp Corrections: (The following items were deleted from the chart) 16:20 16:19 PMHx: Dialysis M; dd2 dd2 16:20 16:19 PMHx: Dialysis M; dd2 dd2 16:20 16:19 PMHx: Dialysis M; dd2 dd2 16:20 16:19 PMHx: Dialysis M,W,F; dd2 dd2 17:07 16:17 Chief complaint: Patient states: been throwing up since last night, cant eat. me1 Last episode was about 10 minutes ago. dd2
[2023-10-19] MEDS ORDERED: CEFTRIAXONE 1000 MG/VIAL ONE (18:32)
--- NOTE | 2023-10-19 19:26 | P.HP ---
Certification for Inpatient Patient admitted to: Observation With expected LOS: <2 Midnights <Becky Serrano - Last Filed: 10/19/23 20:56> Patient History Date of Service: 10/19/23 Reason for admission: Nausea vomit History of Present Illness: 53-year-old female with a past medical history of end-stage renal disease on hemodialysis, CKD, CAD, history of congestive heart failure, diabetes, hypertension, who came to the hospital with nausea vomiting. She reports nausea vomiting x 1 day. She reports poor p.o. intake. She reports end-stage renal disease on hemodialysis, last dialysis was Tuesday. No reported fever, edema, chest pain, plan to admit for observation nausea vomiting, end-stage renal disease on hemodialysis, with nephrology to consult. 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 Has not been able to see her Physicians because she is unable to leave the house 2nd to diarrhea. States she has had every study there is but swallowing the camera - Family History Father -: Hypertension, Diabetes, Cancer Mother -: Diabetes, Cancer - Social History Alcohol use: No CD- Drugs: No Caffeine use: Yes <Becky Serrano - Last Filed: 10/19/23 20:56> Date of Service: 10/20/23 <Vanesa Cruz - Last Filed: 10/20/23 13:07> Allergies sulfamethoxazole [From Bactrim] Allergy (Verified 07/09/22 16:03) facial swelling trimethoprim [From Bactrim] Allergy (Verified 07/09/22 16:03) facial swelling Tramadol HCl Allergy (Uncoded 07/09/22 16:03) Hives/Rash Home Medications: Clopidogrel Bisulfate [Plavix*] 1 tab PO DAILY 07/19/22 Furosemide [Lasix] 80 mg PO BID #60 tab 02/19/23 Ferrous Sulfate [Ferrous Sulfate*] 325 mg PO M,W,F 07/14/23 Potassium Chloride 20 meq PO DAILY 30 Days #30 tab 07/22/23 Thyroid Tab [[place] Thyroid*] 60 mg PO DAILY@0600 tab 07/22/23 Aspirin [Aspirin EC 81 MG] 81 mg PO DAILY #180 tab 07/26/23 Atorvastatin Calcium [Lipitor] 40 mg PO BEDTIME #90 tab 07/26/23 Blood Sugar Diagnostic [Freestyle Lite Test Strip] 1 each TID #1 unit 07/26/23 Blood-Glucose Meter,Continuous [Freestyle Tea 3 [place]] 1 each MC DAILY #1 ea 07/26/23 Blood-Glucose Sensor [Freestyle Tea 3 Sensor] 1 each MC DAILY #1 ea 07/26/23 Cholecalciferol (Vitamin D3) [Vitamin D 1000 Iu Tab*] 4,000 unit PO DAILY #90 tab 07/26/23 Pantoprazole [Protonix Tab*] 20 mg PO M,W,F #60 tab 07/26/23 Insulin Glargine,Hum.rec.anlog [Semglee] 20 unit SQ DAILY #2 udpkt 08/19/23 carvediloL [Coreg*] 6.25 mg PO DAILY 09/01/23 Sevelamer Carbonate [Renvela*] 80 mg 10/19/23 Review of Systems 10-point ROS is otherwise unremarkable <Becky Serrano - Last Filed: 10/19/23 20:56> Physical Examination - Physical Exam General: Alert, In no apparent distress, Oriented x3 HEENT: Atraumatic, Normocephalic Neck: Supple, 2+ carotid pulse no bruit, JVD not distended Respiratory: Normal air movement, Diminished Capillary refill: <2 Seconds Gastrointestinal: Other (Nausea with vomiting, mild abdominal tenderness) Musculoskeletal: No clubbing, No swelling Integumentary: No breakdown, No significant lesion Neurological: Normal speech, Normal strength at 5/5 x4 extr, Cranial nerves 3-12 intact Urinary: Dialysis catheter - Studies Laboratory Data (last 24 hrs) 10/19/23 10/19/23 10/19/23 16:37 16:37 16:37 WBC 4.60 Hgb 9.7 L Hct 29.8 L Plt Count 258 PT 11.9 INR 1.06 Sodium 134 L Potassium 3.3 L BUN 52 H Creatinine 5.16 H Glucose 214 H Magnesium 2.4 Total Bilirubin 0.3 AST 12 L ALT 22 Alkaline Phosphatase 195 H Lipase 55 <Becky Serrano - Last Filed: 10/19/23 20:56> - Studies Laboratory Data (last 24 hrs) 10/19/23 10/19/23 10/19/23 16:37 16:37 16:37 WBC 4.60 Hgb 9.7 L Hct 29.8 L Plt Count 258 PT 11.9 INR 1.06 Sodium 134 L Potassium 3.3 L BUN 52 H Creatinine 5.16 H Glucose 214 H Magnesium 2.4 Total Bilirubin 0.3 AST 12 L ALT 22 Alkaline Phosphatase 195 H Lipase 55 <Vanesa Cruz C - Last Filed: 10/20/23 13:07> Assessment and Plan - Plan Assessment plan Abdominal pain Nausea vomiting End-stage renal disease on hemodialysis Elevated BNP Gentle IV fluids, as needed antiemetics, analgesia Consult nephrology for hemodialysis in the a.m., IO, fluid restrict Hypokalemia Trend electrolytes replace as needed CAD Hypertension History of CHF History of pleural effusion Resume appropriate home meds when tolerating p.o. Diabetes Accu-Cheks, sliding scale Full code DVT hep Diet clear advance as tolerated Disposition independent prior to admission Discharge Plan: Home - Advance Directives Does patient have a Living Will: No Does patient have a Durable POA for Healthcare: No - Code Status/Comfort Care Code Status: Full Code Critical Care: No Time Spent Managing Pts Care (In Minutes): 55 <Becky Serrano - Last Filed: 10/19/23 20:56> - Plan Pt seen and examined. 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 Pt is a 53yo female with past medical history of end-stage renal disease on hemodialysis MWF, CKD, CAD, history of congestive heart failure, diabetes, and hypertension who presented with nausea vomiting x 1 day. She reports poor p.o. intake and the last dialysis was 3 days ago (Tuesday). ON admission, lab studies show Cr 5.42 and BNP [id number]. At bedside, pt is in NAD A/P: ESRD, On HD MWF: Will consult Nephrology for dialysis. Last dialysis was last tuesday. Hypokalemia: K is 3.5. Will monitor Nausea/ vomiting: Likely due to ESRD. Will continue prn antiemetic Continue home meds for other chronic medical problems. Code: full <Vanesa Cruz - Last Filed: 10/20/23 13:07>
[2023-10-19] MEDS ORDERED: HYDROCODONE/APAP 5/325 MG TAB ONE (20:36)
[2023-10-19] MEDS: HYDROCODONE/APAP 5/325 MG TAB PO PRN (20:38)
[2023-10-19] MEDS: ONDANSETRON 4 MG/2 ML VIAL IV PRN (22:33)
[2023-10-19 22:42] VITALS: BMI 20.6
[2023-10-19 22:56] VITALS: O2SAT 95
[2023-10-20] MEDS: DIPHENHYDRAMINE 25 MG TAB/CAP PO PRN (05:19)
[2023-10-20 05:20] LABS: Absolute Eosinophils 0.2 K/uL (0-0.5); Absolute Lymphocytes (CBC) 0.7 K/uL (0.7-4.9); Absolute Monocytes 0.4 K/uL (0.1-1.3); Absolute Neutrophil 2.7 K/uL (1.8-8.0); Basophils % 0.8 % (0-1.3); Eosinophils % 3.7 % (0-4.4); Hematocrit 26.9 % (36.0-45.0); Lymphocytes % 18.4 % (15.3-44.8); MCH 29.4 pg (27.0-35.0); MCHC 33.5 g/dL (32.0-36.0); MCV 87.7 fL (80-100); MPV 7.9 fL (7.6-11.3); Monocytes % 10.3 % (3.3-12.3); Neutrophils % 66.8 % (41.7-73.7); Nucleated Red Blood Cells % 0.1 % (0-0); Platelets 228 thou/uL (152-406); RBC Red Blood Cell Count 3.06 M/uL (3.86-4.86); Red Cell Distribution Width 15.2 % (12.1-15.2)
[2023-10-20 05:51] LABS: Anion Gap 11.5 mEq/L (5.0-15.0); Magnesium 2.2 mg/dL (1.6-2.4); Phosphorus 6.2 mg/dL (2.5-4.9); Potassium 3.5 mEq/L (3.5-5.1)
[2023-10-20] MEDS: ASPIRIN EC 81 MG TAB PO SCH (09:33)
[2023-10-20] MEDS: CLOPIDOGREL 75 MG TABLET PO SCH (09:33)
[2023-10-20 12:28] VITALS: BP 164/84; TEMP 97.1
--- NOTE | 2023-10-20 13:10 | P.PN ---
Subjective Date of Service: 10/20/23 Chief Complaint: Nausea vomit Pt is resting comfortably in bed. She complains of nausea and vomiting. Waiting for HD. Last dialysis was last Tuesday. No other complaints. Review of Systems General: Unremarkable Eyes: Unremarkable ENT: Unremarkable Respiratory: Unremarkable Cardiovascular: Unremarkable Gastrointestinal: Nausea, Vomiting Genitourinary: Unremarkable Musculoskeletal: Unremarkable Integumentary: Unremarkable Neurological: Unremarkable Lymphatics: Unremarkable Physical Examination - Vital Signs Temperature: 97.1 F Blood Pressure: 164/84 Pulse: 65 Respirations: 14 Pulse Ox (%): 95 - Physical Exam General: Alert, In no apparent distress, Oriented x3 HEENT: Atraumatic, Normocephalic, PERRLA Neck: Supple, 2+ carotid pulse no bruit, JVD not distended Respiratory: Clear to auscultation bilaterally, Normal air movement Cardiovascular: No edema, Normal pulses, Regular rate/rhythm Capillary refill: <2 Seconds Gastrointestinal: Normal bowel sounds, Soft and benign, Non-distended Musculoskeletal: No clubbing, No swelling, No contractures, No erythema Integumentary: No rashes, No breakdown, No significant lesion Neurological: Normal gait, Normal speech, Normal strength at 5/5 x4 extr Lymphatics: No axilla or inguinal lymphadenopathy - Studies Laboratory Data (last 24 hrs) 10/19/23 10/19/23 10/19/23 16:37 16:37 16:37 WBC 4.60 Hgb 9.7 L Hct 29.8 L Plt Count 258 PT 11.9 INR 1.06 Sodium 134 L Potassium 3.3 L BUN 52 H Creatinine 5.16 H Glucose 214 H Magnesium 2.4 Total Bilirubin 0.3 AST 12 L ALT 22 Alkaline Phosphatase 195 H Lipase 55 Assessment And Plan - Plan ESRD, On HD MWF: Will consult Nephrology for dialysis. Last dialysis was last tuesday. Hypokalemia: K is 3.5. Will monitor Nausea/ vomiting: Likely due to ESRD. Will continue prn antiemetic Continue home meds for other chronic medical problems. Code: full DIspo; pending hospital course.
[2023-10-20 17:27] LABS: HBsAG Nonreactive Report Report; Hepatitis B surface AG Interp. Nonreactive (Nonreactive)
--- NOTE | 2023-10-20 18:24 | P.DS ---
Admission Date: 10/19/23 Discharge Date: 10/20/23 Disposition: ROUTINE DISCHARGE Discharge Condition: GOOD Reason for Admission: Nausea vomit Brief History of Present Illness: 53-year-old female with a past medical history of end-stage renal disease on hemodialysis, CKD, CAD, history of congestive heart failure, diabetes, hypertension, who came to the hospital with nausea vomiting. She reports nausea vomiting x 1 day. She reports poor p.o. intake. She reports end-stage renal disease on hemodialysis, last dialysis was Tuesday. No reported fever, edema, chest pain, plan to admit for observation nausea vomiting, end-stage renal disease on hemodialysis, with nephrology to consult. Hospital Course: Pt is a 53yo fmale with past medical history of end-stage renal disease on hemodialysis, CKD, CAD, history of congestive heart failure, diabetes, and hypertension who presented with nausea and vomiting. The last dailysis was on 10/17/23. We admitted pt and gave prn antiemetic. We consulted nephrology for dialysis. Pt felt better after the dialysis and we discharged her. She was in NAD prior to discharge. Vital Signs/Physical Exam: Temp Pulse Resp BP Pulse Ox 97.1 F 65 14 164/84 H 95 10/20/23 13:10 10/20/23 13:10 10/20/23 13:10 10/20/23 13:10 10/20/23 13:10 Laboratory Data at Discharge: WBC 4.10 thou/uL (4.3-10.9) L 10/20/23 04:39 Hgb 9.0 g/dL (12.0-15.0) L 10/20/23 04:39 Hct 26.9 % (36.0-45.0) L 10/20/23 04:39 Plt Count 228 thou/uL (152-406) 10/20/23 04:39 PT 11.9 SECONDS (9.4-12.5) 10/19/23 16:37 INR 1.06 10/19/23 16:37 Sodium 136 mEq/L (136-145) 10/20/23 04:39 Potassium 3.5 mEq/L (3.5-5.1) 10/20/23 04:39 BUN 57 mg/dL (7-18) H 10/20/23 04:39 Creatinine 5.42 mg/dL (0.55-1.02) H 10/20/23 04:39 Glucose 118 mg/dL (74-106) H 10/20/23 04:39 Phosphorus 6.2 mg/dL (2.5-4.9) H 10/20/23 04:39 Magnesium 2.2 mg/dL (1.6-2.4) 10/20/23 04:39 Total Bilirubin 0.3 mg/dL (0.2-1.0) 10/19/23 16:37 AST 12 U/L (15-37) L 10/19/23 16:37 ALT 22 U/L (13-56) 10/19/23 16:37 Alkaline Phosphatase 195 U/L (45-117) H 10/19/23 16:37 Lipase 55 U/L (13-75) 10/19/23 16:37 Home Medications: Clopidogrel Bisulfate [Plavix*] 1 tab PO DAILY 07/19/22 Furosemide [Lasix] 80 mg PO BID #60 tab 02/19/23 Ferrous Sulfate [Ferrous Sulfate*] 325 mg PO M,W,F 07/14/23 Potassium Chloride 20 meq PO DAILY 30 Days #30 tab 07/22/23 Thyroid Tab [[place] Thyroid*] 60 mg PO DAILY@0600 tab 07/22/23 Aspirin [Aspirin EC 81 MG] 81 mg PO DAILY #180 tab 07/26/23 Atorvastatin Calcium [Lipitor] 40 mg PO BEDTIME #90 tab 07/26/23 Blood Sugar Diagnostic [Freestyle Lite Test Strip] 1 each TID #1 unit 07/26/23 Blood-Glucose Meter,Continuous [Freestyle Tea 3 [place]] 1 each DAILY #1 ea 07/26/23 Blood-Glucose Sensor [Freestyle Tea 3 Sensor] 1 each DAILY #1 ea 07/26/23 Cholecalciferol (Vitamin D3) [Vitamin D 1000 Iu Tab*] 4,000 unit PO DAILY #90 tab 07/26/23 Pantoprazole [Protonix Tab*] 20 mg PO M,W,F #60 tab 07/26/23 Insulin Glargine,Hum.rec.anlog [Semglee] 20 unit SQ DAILY #2 udpkt 08/19/23 carvediloL [Coreg*] 6.25 mg PO DAILY 09/01/23 Sevelamer Carbonate [Renvela*] 80 mg 10/19/23 Ondansetron [Zofran] 4 mg PO Q6H PRN 8 Days #30 tab 10/20/23 New Medications: Ondansetron [Zofran] 4 mg PO Q6H PRN 8 Days #30 tab PRN Reason: Nausea / Vomiting Diet: AHA Activity: Ad sarita Followup: Jeet Manley MD [Primary Care Provider] -
--- NOTE | 2023-10-20 19:14 | CON ---
Date of Consultation: 10/20/2023 Reason For Consultation: Elevated BUN and creatinine, electrolyte imbalance, end-stage renal disease . History Of Present Illness: This is a 53-year-old female with significant past medical history of en d-stage renal disease, on hemodialysis, Tuesday, Tuesday, Tuesday; hypertension; hyperlipidemia; diab etes complicated with neuropathy and nephropathy; CAD complicated with congestive heart failure. The patient came to the hospital because of diarrhea for the last few days and nausea and vomiting, coul d not keep anything in her mouth, for that reason reported to the hospital. The patient missed dialMagma Flooring sis yesterday. Past Medical History: Includes: 1.Hypertension. 2.Hyperlipidemia. 3.Diabetes. 4.CAD complicated with congestive heart failure. 5.End-stage renal disease. Allergies: TO SULFA MEDICATIONS, BACTRIM, TRAMADOL. Home Medications: Include Plavix, Lasix, KCl, aspirin, atorvastatin, cholecalciferol. Past Surgical History: Includes tubal ligation, cholecystectomy, PTCA. Family History: Positive for CAD, end-stage renal disease, hypertension, diabetes. Social History: Denied smoking. Denied drinking. Denied drug abuse. Review of Systems: Head and Neck: No red eye. No ear pain. GI: Has abdominal pain. Has nausea and vomiting. : No polyuria. No dysuria. No hematuria. Tea Blender: No vaginal discharge. Respiratory: No shortness of breath. Cardiovascular: No chest pain. Endocrine: No polydipsia. Skin: No rash. Physical Examination: Vital Signs: When I saw the patient, the patient lying in bed. Blood pressure 164/84, pulse of 65, afebrile. Chest: Clear to auscultation. Heart: S1, S2. Regular. Abdomen: Mild tenderness on the right upper quadrant. No guarding or rebound. Extremities: No edema. Neurologic: Alert. No focality. Laboratory Data: WBC 4.1, hemoglobin 9. Sodium 136, potassium 3.5, bicarb 27, BUN 57, creatinine 5. 4, GFR of 9, calcium 8.6, phosphorus 6.2. BNP 142,000. Current Medications: Plavix, ferrous sulfate, Zofran. Assessment And Plan: 1.End-stage renal disease. Looked to me normal volume. Missed the last couple of session of dialys is. No hyperkalemia. I will arrange for the dialysis today and we will challenge the patient. 2.Congestive heart failure with exacerbation. We will challenge the patient on dialysis and we will follow up. 3.Gastroenteritis. Follow up with primary. 4.Diabetes, as by primary. MAREK/WOOD Voice ID: [id number] Report ID: [id number]
[2023-10-20] MEDS ORDERED: ATORVASTATIN 40 MG TAB PO SCH (21:00)
[2023-10-21] MEDS ORDERED: THYROID 30 MG TAB PO SCH (06:00)
[2023-10-21] MEDS ORDERED: FERROUS SULFATE 325 MG TAB PO SCH (17:00)
[2023-10-21] MEDS ORDERED: PANTOPRAZOLE 40MG TABLET PO SCH (17:00)
== END 2023-10-20 19:30 | disposition home or self-care (01) ==
LOC: ER 16:05 → ERHOLD 19:26 → 2ND 21:36
PROVIDERS: ADMIT Hospitalist; ATTEND Hospitalist
DX: N18.6 End stage renal disease (principal); R11.2 Nausea with vomiting, unspecified; E11.22 Type 2 diabetes mellitus with diabetic chronic kidney disease; I13.2 Hypertensive heart and chronic kidney disease with heart failure and with stage 5 chronic kidney disease, or end stage renal disease; I50.42 Chronic combined systolic (congestive) and diastolic (congestive) heart failure; I25.10 Atherosclerotic heart disease of native coronary artery without angina pectoris; E87.8 Other disorders of electrolyte and fluid balance, not elsewhere classified; E87.6 Hypokalemia; K52.9 Noninfective gastroenteritis and colitis, unspecified; N39.0 Urinary tract infection, site not specified; J90 Pleural effusion, not elsewhere classified; E78.5 Hyperlipidemia, unspecified; Z88.2 Allergy status to sulfonamides; Z88.1 Allergy status to other antibiotic agents; Z88.5 Allergy status to narcotic agent; Z99.2 Dependence on renal dialysis; Z91.158 Patient's noncompliance with renal dialysis for other reason
CPT/HCPCS: 36415; 71045; 71250; 74176; 76705; 80048; 80076; 81001; 82947; 83690; 83735; 83880; 84100; 84484; 85025; 85610; 87340; 90935; 93005; 96374; 96375; 99285; J0696; J1644; J2405

== ENCOUNTER 2024-03-22 16:17 | Emergency (ER) | payer OTHER ==
--- NOTE | 2024-03-22 17:32 | RAD REPORT ---
EXAM: Knee Left 3 View INDICATION: PAIN COMPARISON: None FINDINGS: No acute fracture. Osteopenia. No significant knee effusion. No significant focal degenerative changes. Other: Peripheral vascular calcification. IMPRESSION: No evidence of acute osseous abnormality involving the imaged knee.
--- NOTE | 2024-03-22 18:00 | ER ---
Nurse's Notes [facility] Name: Alyson Mayfield Age: 54 yrs Sex: Female : 1970 Arrival Date: 03/22/2024 Time: 16:17 Bed 10 Private MD: Diagnosis: Fall on same level, unspecified;Pain in left knee;Abrasion, left knee;Effusion, left knee;Other internal derangements of left knee;Dependence on renal dialysis Presentation: 03/22 16:38 Chief complaint: Patient states: Trip and fall Tuesday night. L knee barraza since, cannot ll1 bear weight on L leg since. Coronavirus screen: Client denies travel out of the [place] in the last 14 days. At this time, the client does not indicate any symptoms associated with coronavirus-19. Ebola Screen: Patient denies travel to an Ebola-affected area in the 21 days before illness onset. Initial Sepsis Screen: Does the patient meet any 2 criteria? No. Patient's initial sepsis screen is negative. Does the patient have a suspected source of infection? No. Patient's initial sepsis screen is negative. Risk Assessment: Do you want to hurt yourself or someone else? Patient reports no desire to harm self or others. Onset of symptoms was March 19, 2024. 16:38 Method Of Arrival: Wheelchair ll1 16:38 Acuity: KLAUS 4 ll1 Triage Assessment: 16:40 General: Appears uncomfortable, Behavior is calm, cooperative, appropriate for age. ll1 Pain: Complains of pain in left leg Quality of pain is described as aching. Musculoskeletal: Reports pain in left leg. Historical: - Allergies: 16:40 Bactrim; ll1 16:40 Tramadol HCl; ll1 - PMHx: 16:40 CHF; Diabetes - NIDDM; Hypertension; Kidney stones; Thyroid problem; ll1 - PSHx: 16:40 2 heart stents; Cholecystectomy; R chest dialysis access; R arm dialysis port (R chest ll1 dialysis access); - Immunization history:: Adult Immunizations up to date. - Social history:: Smoking status: Patient denies any tobacco usage or history of. Assessment: 17:20 Reassessment: Patient and/or family updated on plan of care and expected duration. Pain ll1 level reassessed. Vital Signs: 16:38 BP 159 / 70; Pulse 71; Resp 17; Temp 97.6; Pulse Ox 97% ; Weight 52.16 kg; Height 5 ft. ll1 2 in. ; Pain 9/10; 16:38 Body Mass Index 21.03 (52.16 kg, 157.48 cm) ll1 16:38 Pain Scale: Adult ll1 ED Course: 16:20 Patient arrived in ED. al6 16:21 Mick Gallardo MD is Attending Physician. [facility] 16:40 Triage completed. ll1 17:16 Knee Left 3 View XRAY In Process Unspecified. EDMS 17:20 Arm band placed on Patient placed in an exam room, on a stretcher. ll1 17:59 Derrick Rousseau MD is Referral Physician. [facility] 18:21 No provider procedures requiring assistance completed. Patient did not have IV access ss during this emergency room visit. Administered Medications: 18:04 Drug: Ndvnlnnb-Cfdcfglooc-Bsawikogd Topical Ointment 1 application Topical once Route: jb4 Topical; Site: affected area; 18:16 Drug: Hydrocodone-Acetaminophen PO (7.5 mg-325 mg) 1 tabs PO once Route: PO; jb4 18:21 Follow up: Response: Medication Administered at Departure ss 18:16 Drug: Ondansetron Oral Disintegrating Tablet Oral Disintegrating Tablet 4 mg PO once jb4 Route: PO; 18:21 Follow up: Response: No adverse reaction ss Outcome: 17:59 Discharge ordered by . [facility] 18:21 Discharged to home via wheelchair, with crutches, AWAITING IN LOBBY FOR RIDE TO ARRIVE ss 18:21 Discharge instructions given to patient, Instructed on discharge instructions, follow up and referral plans. medication usage, Demonstrated understanding of instructions, follow-up care, medications, Prescriptions given X 1, 18:22 Condition: good ss 18:22 Patient left the ED. ss Signatures: Dispatcher [employer] EDFL Mick Gallardo MD MD cha Blanchard, Shelby RN RN Javier Sim RN RN jb4 Naveed Drake RN RN ll1 Bethanie Espinoza al6
--- NOTE | 2024-03-22 18:00 | EDPHYS ---
Physician Documentation [facility] Name: Alyson Mayfield Age: 54 yrs Sex: Female : 1970 Arrival Date: 03/22/2024 Time: 16:17 Bed 10 Private MD: JON Physician Mick Gallardo HPI: 03/22 17:42 This 54 yrs old Female presents to ER via Wheelchair with complaints of Leg radu Injury. 17:42 The patient presents with decreased range of motion. The complaints affect the left radu knee. Context: resulted from a direct blow, the patient falling, the patient is not able to bear weight. Onset: The symptoms/episode began/occurred 3 day(s) ago. Modifying factors: The symptoms are alleviated by remaining still, the symptoms are aggravated by movement, weight bearing, bending knee. Associated signs and symptoms: The patient has no apparent associated signs or symptoms. Treatment prior to arrival includes: elevation of the extremity, crutches. Severity of symptoms: At their worst the symptoms were moderate, in the emergency department the symptoms. The patient has not experienced similar symptoms in the past. Historical: - Allergies: 16:40 Bactrim; ll1 16:40 Tramadol HCl; ll1 - PMHx: 16:40 CHF; Diabetes - NIDDM; Hypertension; Kidney stones; Thyroid problem; ll1 - PSHx: 16:40 2 heart stents; Cholecystectomy; R chest dialysis access; R arm dialysis port (R chest ll1 dialysis access); - Immunization history:: Adult Immunizations up to date. - Social history:: Smoking status: Patient denies any tobacco usage or history of. ROS: 17:45 Constitutional: Negative for fever, chills, and weight loss, Eyes: Negative for injury, radu pain, redness, and discharge, ENT: Negative for injury, pain, and discharge, Neck: Negative for injury, pain, and swelling, Cardiovascular: Negative for chest pain, palpitations, and edema, Respiratory: Negative for shortness of breath, cough, wheezing, and pleuritic chest pain, Abdomen/GI: Negative for abdominal pain, nausea, vomiting, diarrhea, and constipation, Back: Negative for injury and pain, : Negative for injury, bleeding, discharge, and swelling, Skin: Negative for injury, rash, and discoloration, Neuro: Negative for headache, weakness, numbness, tingling, and seizure, Psych: Negative for depression, anxiety, suicide ideation, homicidal ideation, and hallucinations, Allergy/Immunology: Negative for hives, rash, and allergies, Endocrine: Negative for neck swelling, polydipsia, polyuria, polyphagia, and marked weight changes, Hematologic/Lymphatic: Negative for swollen nodes, abnormal bleeding, and unusual bruising, 17:45 MS/extremity: Positive for abrasion, decreased range of motion, pain, swelling, tenderness, of the left knee, Exam: 17:45 Constitutional: This is a well developed, well nourished patient who is awake, alert, radu and in no acute distress. Head/Face: Normocephalic, atraumatic. Eyes: Pupils equal round and reactive to light, extra-ocular motions intact. Lids and lashes normal. Conjunctiva and sclera are non-icteric and not injected. Cornea within normal limits. Periorbital areas with no swelling, redness, or edema. ENT: Nares patent. No nasal discharge, no septal abnormalities noted. Tympanic membranes are normal and external auditory canals are clear. Oropharynx with no redness, swelling, or masses, exudates, or evidence of obstruction, uvula midline. Mucous membranes moist. Neck: Trachea midline, no thyromegaly or masses palpated, and no cervical lymphadenopathy. Supple, full range of motion without nuchal rigidity, or vertebral point tenderness. No Meningismus. Chest/axilla: Normal chest wall appearance and motion. Nontender with no deformity. No lesions are appreciated. Cardiovascular: Regular rate and rhythm with a normal S1 and S2. No gallops, murmurs, or rubs. Normal PMI, no JVD. No pulse deficits. Respiratory: Lungs have equal breath sounds bilaterally, clear to auscultation and percussion. No rales, rhonchi or wheezes noted. No increased work of breathing, no retractions or nasal flaring. Abdomen/GI: Soft, non-tender, with normal bowel sounds. No distension or tympany. No guarding or rebound. No evidence of tenderness throughout. Back: No spinal tenderness. No costovertebral tenderness. Full range of motion. Skin: Warm, dry with normal turgor. Normal color with no rashes, no lesions, and no evidence of cellulitis. Neuro: Awake and alert, GCS 15, oriented to person, place, time, and situation. Cranial nerves II-XII grossly intact. Motor strength 5/5 in all extremities. Sensory grossly intact. Cerebellar exam normal. Normal gait. Psych: Awake, alert, with orientation to person, place and time. Behavior, mood, and affect are within normal limits. 17:45 Musculoskeletal/extremity: Extremities: grossly normal except: noted in the left knee: abrasion, contusion, decreased ROM, pain, swelling, tenderness, ROM: intact in all extremities, Circulation is intact in all extremities. Sensation intact. Compartment Syndrome exam of affected extremity: is normal. DVT Exam: negative Homans' sign noted on exam, no appreciated bluish discoloration, no erythema, no increased warmth, pain, swelling, tenderness, Vital Signs: 16:38 BP 159 / 70; Pulse 71; Resp 17; Temp 97.6; Pulse Ox 97% ; Weight 52.16 kg; Height 5 ft. ll1 2 in. ; Pain 9/10; 16:38 Body Mass Index 21.03 (52.16 kg, 157.48 cm) ll1 16:38 Pain Scale: Adult ll1 MDM: 16:22 Medical Screening Exam initiated radu 17:47 Differential diagnosis: closed fracture, contusion, tendonitis. Data reviewed: [facility] signs, nurses notes, radiologic studies, plain films. Consideration of Admission/Observation Escalation of care including admission/observation considered. I considered the following discharge prescriptions or medication management in the emergency department Medications were administered in the Emergency Department. See MAR. Independent interpretation of the following test(s) in the Emergency Department X-Ray: My interpretation is left knee. Test considered but Not performed: Labs: no labs , dialysis on schedule. Care significantly affected by the following chronic conditions: Diabetes, Hypertension, Congestive Heart Failure, kidney stones, thyriod. 03/22 16:42 Order name: Knee Left 3 View XRAY [facility] 03/22 16:42 Order name: Ice pack; Complete Time: 17:40 [facility] 03/22 17:45 Order name: Wound dressing; Complete Time: 18:21 [facility] 03/22 17:45 Order name: Danish wrap-joint; Complete Time: 18:20 [facility] Administered Medications: 18:04 Drug: Qwqkvtfj-Zsavgdebyv-Rrvidbuen Topical Ointment 1 application Topical once Route: jb4 Topical; Site: affected area; 18:16 Drug: Hydrocodone-Acetaminophen PO (7.5 mg-325 mg) 1 tabs PO once Route: PO; jb4 18:21 Follow up: Response: Medication Administered at Departure 18:16 Drug: Ondansetron Oral Disintegrating Tablet Oral Disintegrating Tablet 4 mg PO once jb4 Route: PO; 18:21 Follow up: Response: No adverse reaction ss Disposition Summary: 03/22/24 17:59 Discharge Ordered Notes: Location: Home [facility] Problem: new radu Symptoms: have improved radu Condition: Stable radu Diagnosis - Fall on same level, unspecified radu - Pain in left knee radu - Abrasion, left knee radu - Effusion, left knee radu - Other internal derangements of left knee radu - Dependence on renal dialysis radu Followup: radu - With: Private Physician - When: 2 - 3 days - Reason: Recheck today's complaints, Continuance of care, Re-evaluation by your physician Followup: radu - With: Derrick Rousseau MD - When: 2 - 3 days - Reason: Recheck today's complaints, Re-evaluation by your physician Discharge Instructions: - Discharge Summary Sheet radu - Joint Pain radu - How to Use a Knee Brace radu - Knee Effusion radu - Musculoskeletal Pain radu - Acute Knee Pain, Adult radu - How to Use Cold Therapy, Mjjm-xx-Oirl radu - Dialysis radu - Knee Effusion, Raza-cx-Tqqm [facility] Forms: - Medication Reconciliation Form [facility] - Antibiotic Education radu - Prescription Opioid Use [facility] - Patient Portal Instructions [facility] - Leadership Thank You Letter [facility] Prescriptions: - acetaminophen-codeine 300-30 mg Oral tablet - take 1 tablet ORAL route every 4 to 6 hours as needed for pain; 20 tablet; [facility] Refills: 0, Product Selection Permitted Signatures: Dispatcher [employer] Mick Thurston MD MD cha Bryson, James RN RN jb4 Naveed Drake RN RN ll1 Lalita Swanson RN
[2024-03-22] MEDS ORDERED: HYDROCODONE/APAP 7.5/325 MG TAB ONE (18:06)
[2024-03-22] MEDS ORDERED: ONDANSETRON 4 MG (ODT) TAB ONE (18:06)
[2024-03-23 03:10] VITALS: BP 159/70; TEMP 97.6; O2SAT 97
== END 2024-03-22 18:22 | disposition home or self-care (01) ==
LOC: ER 16:17
DX: S80.212A Abrasion, left knee, initial encounter (principal); M25.462 Effusion, left knee; M23.8X2 Other internal derangements of left knee; W18.30XA Fall on same level, unspecified, initial encounter; Z99.2 Dependence on renal dialysis
CPT/HCPCS: 73562; 99283; Q0162

== ENCOUNTER 2024-05-18 14:46 | Emergency (ER) | payer OTHER ==
[2024-05-18 15:13] LABS: Absolute Lymphocytes (CBC) 0.9 K/uL (0.7-4.9); Absolute Monocytes 0.4 K/uL (0.1-1.3); Absolute Neutrophil 3.5 K/uL (1.8-8.0); Basophils % 0.8 % (0-1.3); Eosinophils % 0.6 % (0-4.4); Hematocrit 35.2 % (36.0-45.0); Hemoglobin 11.8 g/dL (12.0-15.0); Lymphocytes % 18.7 % (15.3-44.8); MCH 29.1 pg (27.0-35.0); MCHC 33.5 g/dL (32.0-36.0); MPV 8.8 fL (7.6-11.3); Monocytes % 8.8 % (3.3-12.3); Neutrophils % 71.1 % (41.7-73.7); Nucleated Red Blood Cells % 0.1 % (0-0); Platelets 220 thou/uL (152-406); RBC Red Blood Cell Count 4.04 M/uL (3.86-4.86); Red Cell Distribution Width 14.5 % (12.1-15.2)
[2024-05-18 15:34] LABS: Anion Gap 15.8 mEq/L (5.0-15.0); Potassium 3.8 mEq/L (3.5-5.1)
[2024-05-18] MEDS ORDERED: INSULIN REGULAR (HUMAN) 100 UNIT/ML ONE ×3 (16:56→19:52)
--- NOTE | 2024-05-18 19:55 | ER ---
Nurse's Notes [facility] Name: Alyson Mayfield Age: 54 yrs Sex: Female : 1970 Arrival Date: 05/18/2024 Time: 14:46 Bed 5 Private MD: Diagnosis: Hyperglycemia, unspecified Presentation: 05/18 14:54 Chief complaint: Patient states: Blood glucose reading high since yesterday. Above 500 ld1 - pt reports taking medicine as prescribed but blood sugar is still high. Coronavirus screen: At this time, the client does not indicate any symptoms associated with coronavirus-19. Ebola Screen: No symptoms or risks identified at this time. Initial Sepsis Screen: Does the patient meet any 2 criteria? No. Patient's initial sepsis screen is negative. Does the patient have a suspected source of infection? No. Patient's initial sepsis screen is negative. Risk Assessment: Do you want to hurt yourself or someone else? Patient reports no desire to harm self or others. Onset of symptoms was May 18, 2024 at 14:55. 14:54 Method Of Arrival: Ambulatory ld1 14:54 Acuity: KLAUS 2 ld1 Triage Assessment: 14:54 General: Appears in no apparent distress. comfortable, Behavior is calm, cooperative, ld1 appropriate for age. Pain: Denies pain. EENT: No signs and/or symptoms were reported regarding the EENT system. Neuro: Level of Consciousness is awake, alert, obeys commands, Oriented to person, place, time, situation, Appropriate for age. Cardiovascular: Capillary refill < 3 seconds Patient's skin is warm and dry. Respiratory: Airway is patent Respiratory effort is even, unlabored. GI: Abdomen is flat, non-distended. : No signs and/or symptoms were reported regarding the genitourinary system. Derm: No signs and/or symptoms reported regarding the dermatologic system. Musculoskeletal: No signs and/or symptoms reported regarding the musculoskeletal system. Historical: - Allergies: 14:50 Bactrim; ld1 14:50 Tramadol HCl; ld1 - PMHx: 14:50 CHF; Diabetes - NIDDM; Hypertension; Kidney stones; Thyroid problem; ld1 - PSHx: 14:50 2 heart stents; Cholecystectomy; R arm dialysis port (t ); R chest dialysis access; ld1 - Immunization history:: Adult Immunizations up to date. - Infectious Disease History:: Denies. - Social history:: Smoking status: Patient denies any tobacco usage or history of. - Family history:: not pertinent. - Hospitalizations: : No recent hospitalization is reported. Screenin:30 [facility] ED Fall Risk Assessment (Adult) History of falling in the last 3 months, bp including since admission No falls in past 3 months (0 pts) Confusion or Disorientation No (0 pts) Intoxicated or Sedated No (0 pts) Impaired Gait No (0 pts) Mobility Assist Device Used No (0 pt) Altered Elimination No (0 pt) Score/Fall Risk Level 0 - 2 = Low Risk Oriented to surroundings. Abuse screen: Denies threats or abuse. Denies injuries from another. Nutritional screening: No deficits noted. Tuberculosis screening: No symptoms or risk factors identified. Assessment: 17:00 General: Appears in no apparent distress. comfortable, Behavior is calm, cooperative, bp appropriate for age. 18:31 Reassessment: Patient appears in no apparent distress at this time. Patient is alert, bp oriented x 3, equal unlabored respirations, skin warm/dry/pink. 19:44 Reassessment: Patient appears in no apparent distress at this time. Patient and/or bm8 family updated on plan of care and expected duration. Pain level reassessed. Patient is alert, oriented x 3, equal unlabored respirations, skin warm/dry/pink. Patient denies pain at this time. Patient states feeling better. Patient states symptoms have improved. Reassessment: POC BS recheck is 400, provider informed and new orders recieved. General: Appears in no apparent distress. comfortable, Behavior is calm, cooperative, appropriate for age. Vital Signs: 14:54 BP 147 / 80; Pulse 73; Resp 18; Temp 98(O); Pulse Ox 95% on R/A; Weight 55.34 kg; ld1 Height 5 ft. 2 in. ; Pain 0/10; 18:30 BP 143 / 73; Pulse 71; Resp 18; Pulse Ox 95% ; bp 19:44 BP 136 / 62; Pulse 70; Resp 18; Temp 98; Pulse Ox 98% ; Pain 0/10; bm8 14:54 Body Mass Index 22.31 (55.34 kg, 157.48 cm) ld1 14:54 Pain Scale: Adult ld1 19:44 Pain Scale: Adult bm8 Soledad Coma Score: 19:44 Eye Response: spontaneous(4). Motor Response: obeys commands(6). Verbal Response: bm8 oriented(5). Total: 15. ED Course: 14:49 Patient arrived in ED. al6 14:50 Ruddy Spaulding MD is Attending Physician. rn 14:54 Arm band placed on right wrist. ld1 14:55 Triage completed. ld1 15:03 Inserted saline lock: 22 gauge in left antecubital area, using aseptic technique. Blood ld1 collected. Flushed with 10 mL NS. 16:44 Emanuel Benavides, RN is Primary Nurse. bp 18:30 Patient has correct armband on for positive identification. bp 19:44 Provided Education on: post er care, follow up with pcp. bm8 19:44 No provider procedures requiring assistance completed. Patient maintains SpO2 bm8 saturation greater than 95% on room air. 20:08 IV discontinued, intact, bleeding controlled, No redness/swelling at site. Pressure bm8 dressing applied. Administered Medications: 15:40 CANCELLED (ESRD): ns 0.9% 1000 ml IV at 1000 ml once; to be given as a bolus over 60 rn minutes 17:00 Drug: Insulin Regular Human Sub-Q 10 units Sub-Q once {Co-Signature: ph (Carrie Young RN).} Route: Sub-Q; Site: right lower abdomen; 19:46 Follow up: Response: No adverse reaction bm8 17:01 Drug: Insulin Regular Human IVP 5 units IVP once {Co-Signature: ph (Carrie Young RN).} Route: IVP; Site: left antecubital; 19:46 Follow up: Response: No adverse reaction bm8 18:30 Drug: Insulin Regular Human Sub-Q 10 units Sub-Q once {Co-Signature: ph (Carrie Young RN).} Route: Sub-Q; Site: right lower abdomen; 19:46 Follow up: Response: No adverse reaction bm8 19:52 Not Given (Duplicate Order): insulin regular human10 units IVP once rn 20:03 Drug: Insulin Regular Human IVP 5 units IVP once {Co-Signature: lg3 (Eva Adams RN).} bm8 Route: IVP; Site: left antecubital; 20:09 Follow up: Response: No adverse reaction bm8 Medication: 19:44 VIS not applicable for this client. bm8 Outcome: 19:55 Discharge ordered by . rn 20:08 Discharged to home ambulatory, bm8 20:08 Condition: stable 20:08 Discharge instructions given to patient, family, Instructed on discharge instructions, follow up and referral plans. Demonstrated understanding of instructions, follow-up care, medications, 20:13 Patient left the ED. bm8 Signatures: Ruddy Spaulding MD MD rn Peltier, Brian RN RN Justina Schneider RN RN ld1 Matthieu Black RN RN bm8 Bethanie Espinoza Patricia RN AbleEva RN lg3
--- NOTE | 2024-05-18 19:55 | EDPHYS ---
Physician Documentation [facility] Name: Alyson Mayfield Age: 54 yrs Sex: Female : 1970 Arrival Date: 05/18/2024 Time: 14:46 Bed 5 Private MD: ED Physician Ruddy Spaulding HPI: 05/18 15:03 This 54 yrs old Female presents to ER via Ambulatory with complaints of High rn Blood Sugar. 15:03 The patient or guardian reports hyperglycemia, that was potentially precipitated by rn Recently started steroid Dosepak for cough. Onset: The symptoms/episode began/occurred today. Current symptoms: In the emergency department the patient's symptoms are unchanged from the initial presentation. The patient has experienced similar episodes in the past. Patient reports compliant with her insulin and diabetes medication, started Medrol Dosepak a few days ago for cough as well as antibiotics. Glucose read "high". Reports feels generalized fatigue but no vomiting or diarrhea. No fever or chills. No shortness of breath or chest pain. No abdominal pain. Historical: - Allergies: 14:50 Bactrim; ld1 14:50 Tramadol HCl; ld1 - PMHx: 14:50 CHF; Diabetes - NIDDM; Hypertension; Kidney stones; Thyroid problem; ld1 - PSHx: 14:50 2 heart stents; Cholecystectomy; R arm dialysis port (t ); R chest dialysis access; ld1 - Immunization history:: Adult Immunizations up to date. - Infectious Disease History:: Denies. - Social history:: Smoking status: Patient denies any tobacco usage or history of. - Family history:: not pertinent. - Hospitalizations: : No recent hospitalization is reported. ROS: 15:03 Constitutional: Negative for fever, chills, and weight loss, Cardiovascular: Negative rn for chest pain, palpitations, and edema, Respiratory: Negative for shortness of breath, cough, wheezing, and pleuritic chest pain, Abdomen/GI: Negative for abdominal pain, nausea, vomiting, diarrhea, and constipation, MS/Extremity: Negative for injury and deformity, Skin: Negative for injury, rash, and discoloration, Neuro: Negative for headache, numbness, tingling, and seizure, Exam: 15:03 Constitutional: This is a well developed, well nourished patient who is awake, alert, rn and in no acute distress. Cardiovascular: Regular rate and rhythm. No pulse deficits. Respiratory: No increased work of breathing, no retractions or nasal flaring. MS/ Extremity: Pulses equal, no cyanosis. Neuro: Awake and alert, GCS 15 Vital Signs: 14:54 BP 147 / 80; Pulse 73; Resp 18; Temp 98(O); Pulse Ox 95% on R/A; Weight 55.34 kg; ld1 Height 5 ft. 2 in. ; Pain 0/10; 18:30 BP 143 / 73; Pulse 71; Resp 18; Pulse Ox 95% ; bp 19:44 BP 136 / 62; Pulse 70; Resp 18; Temp 98; Pulse Ox 98% ; Pain 0/10; bm8 14:54 Body Mass Index 22.31 (55.34 kg, 157.48 cm) ld1 14:54 Pain Scale: Adult ld1 19:44 Pain Scale: Adult bm8 Soledad Coma Score: 19:44 Eye Response: spontaneous(4). Motor Response: obeys commands(6). Verbal Response: bm8 oriented(5). Total: 15. MDM: 14:50 Medical Screening Exam initiated rn 19:53 Differential diagnosis: DKA, hyperglycemia. Data reviewed: vital signs, nurses notes, finished yarn examiner test result(s), and as a result, I will discharge patient. Counseling: I had a detailed discussion with the patient and/or guardian regarding the historical points, exam findings, and any diagnostic results supporting the discharge/admit diagnosis, lab results, the need for outpatient follow up, to return to the emergency department if symptoms worsen or persist or if there are any questions or concerns that arise at home. Response to treatment: the patient's symptoms have markedly improved after treatment, and as a result, I will discharge patient. ED course: Patient has real-time glucose monitor, her monitor is reading 336. Will give 5 more units of insulin and anticipate discharge home. I do not want to lower her glucose too much given she is dialysis and will have trouble renally clearing the insulin.. ED course: Patient states she feels much better. Wants to go home.. 19:53 ED course: Patient has glucose monitor that alerts her if she goes too low.. rn 19:55 ED course: Hyperglycemia without acidosis or evidence of DKA, likely secondary to rn iatrogenic steroids that she was given for bronchitis. Told her to stop steroids and watch glucose closely.. 05/18 15:02 Order name: CBC with Diff; Complete Time: 15:39 rn 05/18 15:02 Order name: Basic Metabolic Panel; Complete Time: 15:39 rn 05/18 17:06 Order name: Glucose, Ancillary Testing; Complete Time: 17:13 EDMS 05/18 18:28 Order name: Glucose, Ancillary Testing; Complete Time: 18:41 EDMS 05/18 19:51 Order name: Glucose, Ancillary Testing; Complete Time: 19:55 EDMS 05/18 15:02 Order name: IV Start; Complete Time: 15:03 rn 05/18 15:02 Order name: Accucheck Blood Glucose; Complete Time: 15:03 rn 05/18 17:55 Order name: Accucheck Blood Glucose; Complete Time: 18:18 rn Administered Medications: 15:40 CANCELLED (ESRD): ns 0.9% 1000 ml IV at 1000 ml once; to be given as a bolus over 60 rn minutes 17:00 Drug: Insulin Regular Human Sub-Q 10 units Sub-Q once {Co-Signature: ph (Carrie Young RN).} Route: Sub-Q; Site: right lower abdomen; 19:46 Follow up: Response: No adverse reaction bm8 17:01 Drug: Insulin Regular Human IVP 5 units IVP once {Co-Signature: ph (Carrie Young RN).} Route: IVP; Site: left antecubital; 19:46 Follow up: Response: No adverse reaction bm8 18:30 Drug: Insulin Regular Human Sub-Q 10 units Sub-Q once {Co-Signature: ph (Carrie Young RN).} Route: Sub-Q; Site: right lower abdomen; 19:46 Follow up: Response: No adverse reaction bm8 19:52 Not Given (Duplicate Order): insulin regular human10 units IVP once rn 20:03 Drug: Insulin Regular Human IVP 5 units IVP once {Co-Signature: lg3 (Eva Adams RN).} bm8 Route: IVP; Site: left antecubital; 20:09 Follow up: Response: No adverse reaction bm8 Disposition Summary: 05/18/24 19:55 Discharge Ordered Notes: Location: Home rn Problem: new rn Symptoms: have improved rn Condition: Stable rn Diagnosis - Hyperglycemia, unspecified rn Followup: rn - With: Private Physician - When: As needed - Reason: Recheck today's complaints, Re-evaluation by your physician Discharge Instructions: - Discharge Summary Sheet rn - Hyperglycemia rn - Blood Glucose Monitoring, Adult rn Forms: - Medication Reconciliation Form rn - Antibiotic rn training - Prescription Opioid Use rn - Patient Portal Instructions rn - Leadership Thank You Letter rn Signatures: Dispatcher [employer] EDFL Ruddy Spaulding MD MD rn Makayla, Emanuel, RN RN Justina Schneider RN RN ld1 Matthieu Black, RN RN bm8 Carrie Young RN ph Able, Eva RIVAS lg3 Corrections: (The following items were deleted from the chart) 15:03 15:03 CBC+H.LAB.BRZ ordered. EDMS EDMS 15:03 15:03 BASIC METABOLIC PANEL+C.LAB.BRZ ordered. EDMS EDMS 15:40 15:02 NS 0.9% IV 1000 ml IV at 1000 ml once; to be given as a bolus over 60 minutes rn ordered. rn
[2024-05-18 20:29] VITALS: TEMP 98
[2024-05-18 20:32] VITALS: BP 136/62; O2SAT 98
== END 2024-05-18 20:13 | disposition home or self-care (01) ==
LOC: ER 14:46
DX: E11.65 Type 2 diabetes mellitus with hyperglycemia (principal)
CPT/HCPCS: 85025; 80048; 36415; 82947 ×3; 96372; 96374; 99284; J1815 ×3

== ENCOUNTER 2024-05-19 14:07 | Emergency (ER) | payer OTHER ==
--- NOTE | 2024-05-19 14:23 | ER ---
Nurse's Notes [facility] Name: Alyson Mayfield Age: 54 yrs Sex: Female : 1970 Arrival Date: 05/19/2024 Time: 14:07 Bed IW1 Private MD: Diagnosis: Hyperglycemia, unspecified Presentation: 05/19 14:16 Chief complaint: Patient states: "my sugar is high and I was seen here yesterday, they aa5 told me it was the steroids I was taking". 14:16 Coronavirus screen: At this time, the client does not indicate any symptoms associated aa5 with coronavirus-19. Ebola Screen: Patient denies travel to an Ebola-affected area in the 21 days before illness onset. Onset of symptoms was May 2024. 14:16 Method Of Arrival: Ambulatory aa5 14:16 Initial Sepsis Screen: Does the patient meet any 2 criteria? No. Patient's initial aa5 sepsis screen is negative. Does the patient have a suspected source of infection? No. Patient's initial sepsis screen is negative. Risk Assessment: Do you want to hurt yourself or someone else? Patient reports no desire to harm self or others. 14:16 Acuity: KLAUS 3 aa5 Historical: - Allergies: 14:16 Bactrim; aa5 14:16 Tramadol HCl; aa5 - PMHx: 14:16 CHF; Diabetes - NIDDM; Hypertension; Kidney stones; Thyroid problem; aa5 - PSHx: 14:16 2 heart stents; Cholecystectomy; R arm dialysis port; R chest dialysis access; aa5 - Immunization history:: Adult Immunizations unknown. - Infectious Disease History:: Denies. - Social history:: Smoking status: Patient denies any tobacco usage or history of. Assessment: 14:16 Reassessment: Patient is alert, oriented x 3, equal unlabored respirations, skin aa5 warm/dry/pink. Vital Signs: 14:16 BP 137 / 107; Pulse 71; Resp 16 S; Temp 97.5(TE); Pulse Ox 98% on R/A; Weight 55.34 kg aa5 (R); Height 5 ft. 2 in. (R); 14:16 Body Mass Index 22.31 (55.34 kg, 157.48 cm) aa5 ED Course: 14:11 Patient arrived in ED. al6 14:13 Supriya Cortes FNP-C [facility]. kb 14:13 Ezio Askew MD is Attending Physician. kb 14:16 Arm band placed on. aa5 14:20 Triage completed. aa5 14:20 No provider procedures requiring assistance completed. Patient did not have IV access aa5 during this emergency room visit. Administered Medications: No medications were administered Point of Care Testing: Blood Glucose: 14:20 Blood Glucose: 353 mg/dL; aa5 Ranges: Outcome: 14:23 Discharge ordered by . kb 14:24 Discharged to home ambulatory, aa5 14:24 Condition: stable 14:24 Discharge instructions given to patient, Instructed on discharge instructions, follow up and referral plans. Demonstrated understanding of instructions, follow-up care, Pt left before d/c paperwork was provided. 14:25 Patient left the ED. aa5 Signatures: Supriya Cortes FNP-C FNP-Ckb Calderon, Audri, RN RN aa5 Bethanie Espinoza al6
--- NOTE | 2024-05-19 14:23 | EDPHYS ---
Physician Documentation [facility] Name: Alyson Mayfield Age: 54 yrs Sex: Female : 1970 Arrival Date: 05/19/2024 Time: 14:07 Bed IW1 Private MD: ED Physician Ezio Askew HPI: 05/19 14:25 This 54 yrs old Female presents to ER via Ambulatory with complaints of High kb Blood Sugar. 14:25 Pt is a 54 year old female who presents for high blood sugar. States she was on kb steroids for bronchitis and it caused her sugar to go up. Was seen here yesterday and DKA was ruled out. States her monitor was reading high again today. Pt has no symptoms. Historical: - Allergies: 14:16 Bactrim; aa5 14:16 Tramadol HCl; aa5 - PMHx: 14:16 CHF; Diabetes - NIDDM; Hypertension; Kidney stones; Thyroid problem; aa5 - PSHx: 14:16 2 heart stents; Cholecystectomy; R arm dialysis port; R chest dialysis access; aa5 - Immunization history:: Adult Immunizations unknown. - Infectious Disease History:: Denies. - Social history:: Smoking status: Patient denies any tobacco usage or history of. ROS: 14:25 Constitutional: As per HPI kb Exam: 14:25 Constitutional: This is a well developed, well nourished patient who is awake, alert, kb and in no acute distress. Head/Face: Normocephalic, atraumatic. ENT: Moist Mucous membranes Cardiovascular: Regular rate Respiratory: Respirations even and unlabored. No increased work of breathing. Talking in full sentences Abdomen/GI: Soft, non-tender. No distention Skin: Warm, dry with normal turgor. Normal color. MS/ Extremity: Pulses equal, no cyanosis. Neurovascular intact. Full, normal range of motion. Neuro: Awake and alert, GCS 15, oriented to person, place, time, and situation. Vital Signs: 14:16 BP 137 / 107; Pulse 71; Resp 16 S; Temp 97.5(TE); Pulse Ox 98% on R/A; Weight 55.34 kg aa5 (R); Height 5 ft. 2 in. (R); 14:16 Body Mass Index 22.31 (55.34 kg, 157.48 cm) aa5 MDM: 14:14 Medical Screening Exam initiated kb 14:25 Differential diagnosis: DKA, hyperglycemia. Data reviewed: vital signs, nurses notes. kb Test considered but Not performed: Labs: cbc, cmp considered but BGL 353 so she prefers to go home. . Counseling: I had a detailed discussion with the patient and/or guardian regarding the historical points, exam findings, and any diagnostic results supporting the discharge/admit diagnosis, lab results, the need for outpatient follow up, a family practitioner, to return to the emergency department if symptoms worsen or persist or if there are any questions or concerns that arise at home. Administered Medications: No medications were administered Point of Care Testing: Blood Glucose: 14:20 Blood Glucose: 353 mg/dL; aa5 Ranges: Critical Glucose Levels:Adult <50 mg/dl or >400 mg/dl <40 mg/dl or >180 mg/dl Disposition: 16:13 Co-signature as Attending Physician, Ezio Askew MD I reviewed the patient's care rt provided by the Advanced Practice Provider and agree with the diagnosis and treatment plan. Disposition Summary: 05/19/24 14:23 Discharge Ordered Notes: Location: Home kb Condition: Stable kb Diagnosis - Hyperglycemia, unspecified kb Followup: kb - With: Emergency Department - When: As needed - Reason: Worsening of condition Followup: kb - With: Private Physician - When: 2 - 3 days - Reason: Recheck today's complaints, Continuance of care, Re-evaluation by your physician Discharge Instructions: - Discharge Summary Sheet kb - Hyperglycemia, Lsrc-ed-[id number] kb Forms: - Medication Reconciliation Form kb - Antibiotic Education kb - Prescription Opioid Use kb - Patient Portal Instructions kb - Leadership Thank You Letter kb Signatures: Dispatcher [employer] Supriya Calderon, VALUE ANALYSIS COORDINATOR-C VALUE ANALYSIS COORDINATOR-Tiffany Mckinley RN RN aa5 Ezio Askew MD MD rt Corrections: (The following items were deleted from the chart) 14:23 14:15 IV Saline Lock ordered. kb aa5 14:27 14:25 Test considered but Not performed: Labs: cbc, cmp considered but BGL 365 so she kb prefers to go home. . kb
[2024-05-19 14:36] VITALS: BP 137/107; TEMP 97.5; O2SAT 98
== END 2024-05-19 14:25 | disposition home or self-care (01) ==
LOC: ER 14:07
DX: E11.65 Type 2 diabetes mellitus with hyperglycemia (principal)
CPT/HCPCS: 82947; 99283

== ENCOUNTER 2024-05-29 12:02 | Observation (INO) | payer OTHER ==
[2024-05-29 14:02] LABS: Absolute Eosinophils 0.1 K/uL (0-0.5); Absolute Lymphocytes (CBC) 0.6 K/uL (0.7-4.9); Absolute Monocytes 0.4 K/uL (0.1-1.3); Absolute Neutrophil 5.8 K/uL (1.8-8.0); Basophils % 0.6 % (0-1.3); Eosinophils % 1.3 % (0-4.4); Hemoglobin 12.4 g/dL (12.0-15.0); Lymphocytes % 8.2 % (15.3-44.8); MCH 28.3 pg (27.0-35.0); MCHC 32.7 g/dL (32.0-36.0); MCV 86.4 fL (80-100); MPV 9.3 fL (7.6-11.3); Monocytes % 5.5 % (3.3-12.3); Neutrophils % 84.4 % (41.7-73.7); Platelets 168 thou/uL (152-406); Red Cell Distribution Width 14.6 % (12.1-15.2)
[2024-05-29 14:21] LABS: Albumin 3.5 g/dL (3.4-5.0); Albumin/Globulin Ratio 0.8 (1.1-1.8); Anion Gap 19.7 mEq/L (5.0-15.0); Bilirubin Direct 0.4 mg/dL (0-0.2); Bilirubin Indirect, Calculated 0.5 mg/dL (0.2-0.8); Bilirubin Total 0.9 mg/dL (0.2-1.0); Globulin 4.3 g/dL (2.3-3.5); Potassium 4.7 mEq/L (3.5-5.1); Protein, Total 7.8 g/dL (6.4-8.2)
[2024-05-29 14:34] LABS: Troponin High Sensitivity 97.1 pg/mL (<58.9)
[2024-05-29] MEDS ORDERED: FAMOTIDINE 20 MG/2 ML VIAL IV ONE (14:42)
[2024-05-29] MEDS ORDERED: ONDANSETRON 4 MG/2 ML VIAL ONE (14:42)
--- NOTE | 2024-05-29 14:44 | RAD REPORT ---
EXAMINATION: ONE VIEW CHEST XR CLINICAL INDICATION: Female, 54 years old.,COUGH TECHNIQUE: Frontal chest projection is submitted. Examination is limited by patient positioning and t echnique. COMPARISON: 10/19/2023 FINDINGS: Patchy right basal pleural-parenchymal opacification. Central interstitial prominence. Findings are s table. Right IJ dialysis catheter in place. No pneumothorax. No left-sided effusion. Stable cardiomegaly. Mediastinal contours are unchanged. IMPRESSION: Stable findings suggesting congestive heart failure, with additional right basilar pleural-parenchyma l opacity which could relate to an effusion or indicate underlying pneumonia.
[2024-05-29] MEDS ORDERED: METOCLOPRAMIDE 10 MG/2mL INJ ONE (15:36)
[2024-05-29] MEDS ORDERED: NA CHLORIDE 0.9% 50 ML ONE (15:37)
--- NOTE | 2024-05-29 16:15 | RAD REPORT ---
EXAMINATION: CT Abdomen Pelvis Wo Contrast CLINICAL INDICATION: Female, 54 years old. ABD PAIN TECHNIQUE: CT abdomen and pelvis was performed, without IV contrast, as per department protocol. Axia l, sagittal and coronal reconstructions were obtained. One or more of the following dose reduction techniques were used: Automated exposure control, adjustment of the mA and kV according to the patien t size, and iterative reconstruction. Unless otherwise specified, incidental findings do not require dedicated imaging follow-up. COMPARISON: 07/14/2023 FINDINGS: The lack of intravenous contrast limits the sensitivity of this exam for evaluation of solid visceral organs, vascular structures, and retroperitoneum. LOWER CHEST: Right moderate pleural effusion and trace left effusion, partially improved since prior exam.. LIVER: Normal in size and contour. No focal lesion. BILIARY SYSTEM: Status post cholecystectomy. SPLEEN: Normal size. No focal lesion. PANCREAS: No mass, ductal dilation, or brigido-pancreatic fluid. ADRENALS: Normal; no mass. KIDNEYS AND URETERS: Normal size and contour. No hydronephrosis. URINARY BLADDER: Normal contour. GASTROINTESTINAL TRACT: No evidence of bowel obstruction, free air or abscess. Mild free pelvic asci charles. APPENDIX: Normal appendix. LYMPH NODES: No lymphadenopathy. MUSCULOSKELETAL: No acute or suspicious osseous abnormality. ADDITIONAL FINDINGS: None. IMPRESSION: Right moderate pleural effusion and trace left effusion, partially improved since prior exam. Mild free pelvic ascites. No other acute findings.
--- NOTE | 2024-05-29 16:29 | ER ---
Nurse's Notes [facility] Name: Alyson Mayfield Age: 54 yrs Sex: Female : 1970 Arrival Date: 05/29/2024 Time: 12:02 Bed 13 Private MD: Diagnosis: Volume Overload, Elevated Troponin, Uremia Presentation: 05/29 12:16 Chief complaint: Patient states: RUQ abdominal pain that started a week ago with n/v/d, iw 9/10 stabbing. Pain is worse today. Unable to keep anything down. GI Dr put her on flagyl and famotidine about a month ago but she hasnt been able to take it because she cant eat and was told to take it with food. Cough and cold x 1 month. Dialysis patient but hasnt gone to dialysis since last Tuesday, . Coronavirus screen: Vaccine status: Patient reports being unvaccinated. Ebola Screen: No symptoms or risks identified at this time. 12:16 Method Of Arrival: Ambulatory iw 12:19 Initial Sepsis Screen: Does the patient meet any 2 criteria? No. Patient's initial iw sepsis screen is negative. Risk Assessment: Do you want to hurt yourself or someone else? Patient reports no desire to harm self or others. Onset of symptoms is unknown. 12:19 Acuity: KLAUS 3 iw 12:30 Initial Sepsis Screen: Does the patient have a suspected source of infection? No. jl7 Patient's initial sepsis screen is negative. Historical: - Allergies: 12:19 Bactrim; iw 12:19 Tramadol HCl; iw - PMHx: 12:19 CHF; Diabetes - NIDDM; Hypertension; Thyroid problem; End stage renal disease; on iw dialysis m,w,f; - Immunization history:: Adult Immunizations up to date. - Infectious Disease History:: Denies. - Social history:: Smoking status: Patient/guardian denies using tobacco, but has a distant history of tobacco abuse. Screenin:45 [facility] ED Fall Risk Assessment (Adult) History of falling in the last 3 months, jl7 including since admission No falls in past 3 months (0 pts) Confusion or Disorientation No (0 pts) Intoxicated or Sedated No (0 pts) Impaired Gait No (0 pts) Mobility Assist Device Used No (0 pt) Altered Elimination No (0 pt) Score/Fall Risk Level 0 - 2 = Low Risk Oriented to surroundings, Maintained a safe environment. Abuse screen: Denies threats or abuse. Denies injuries from another. Nutritional screening: No deficits noted. Tuberculosis screening: No symptoms or risk factors identified. Assessment: 12:45 General: Appears in no apparent distress. uncomfortable, Behavior is calm, cooperative, jl7 appropriate for age. Pain: Complains of pain in abdomen Pain currently is 9 out of 10 on a pain scale. Neuro: Level of Consciousness is awake, alert, obeys commands, Oriented to person, place, time, situation. Cardiovascular: Patient's skin is warm and dry. Respiratory: Airway is patent Respiratory effort is even, unlabored, Respiratory pattern is regular, symmetrical. GI: Abdomen is non-distended, Reports nausea. Derm: Skin is pink, warm \T\ dry. 14:30 Reassessment: Patient appears in no apparent distress at this time. No changes from jl7 previously documented assessment. Patient and/or family updated on plan of care and expected duration. Pain level reassessed. Patient is alert, oriented x 3, equal unlabored respirations, skin warm/dry/pink. 15:30 Reassessment: Patient appears in no apparent distress at this time. No changes from jl7 previously documented assessment. Patient and/or family updated on plan of care and expected duration. Pain level reassessed. Patient is alert, oriented x 3, equal unlabored respirations, skin warm/dry/pink. 17:15 Reassessment: Patient appears in no apparent distress at this time. pt laying in bed jl7 with eyes closed, respirations even and unlabored at this time. 18:15 Reassessment: Patient appears in no apparent distress at this time. Patient and/or jl7 family updated on plan of care and expected duration. Pain level reassessed. Patient is alert, oriented x 3, equal unlabored respirations, skin warm/dry/pink. Awaiting transport for admission. Vital Signs: 12:16 BP 176 / 87; Pulse 79; Resp 18; Temp 98.2; Pulse Ox 97% ; Weight 54.43 kg; Height 5 ft. iw 2 in. ; Pain 9/10; 15:32 BP 172 / 87; Pulse 76; Resp 15; Pulse Ox 96% ; jl7 19:06 BP 161 / 81; Pulse 77; Resp 17; Pulse Ox 97% on R/A; Pain 3/10; rg5 12:16 Body Mass Index 21.95 (54.43 kg, 157.48 cm) iw 12:16 Pain Scale: Adult iw 19:06 Pain Scale: Adult rg5 ED Course: 12:12 Patient arrived in ED. al6 12:14 Hira Lai MD is Attending Physician. ec2 12:19 Triage completed. iw 12:19 Arm band placed on Patient placed in waiting room. iw 12:26 Ace Sarmiento, ROB is Primary Nurse. jl7 12:45 Patient has correct armband on for positive identification. Bed in low position. Call jl7 light in reach. Side rails up X 1. Provided Education on: use of call lopez. Client placed on continuous cardiac and pulse oximetry monitoring. NIBP monitoring applied. community mental health worker on. Warm blanket given. 13:15 Missed attempt(s): 22 gauge in left antecubital area. Bleeding controlled, band aid jl7 applied, catheter tip intact. 13:22 XRAY Chest (1 view) In Process Unspecified. EDMS 13:30 Missed attempt(s): 20 gauge in left forearm. Bleeding controlled, band aid applied, bc6 catheter tip intact. 13:44 LFT's Sent. bc6 13:44 Basic Metabolic Panel Sent. bc6 13:44 CBC with Diff Sent. bc6 13:44 Troponin HS Sent. bc6 13:44 Initial lab(s) drawn, by il, sent to lab. Inserted saline lock: 22 gauge in left bc6 antecubital area, using aseptic technique. Blood collected. Flushed with 10 mL NS. 15:19 CT Abd/Pelvis - Without Contrast In Process Unspecified. EDMS 16:29 Ulysses Salcedo MD is Hospitalizing Provider. ec2 19:38 No provider procedures requiring assistance completed. Patient admitted, IV remains in rg5 place. intact, No redness/swelling at site. Administered Medications: 14:47 Drug: Ondansetron IVP 4 mg IVP once; over 2 minutes Route: IVP; Site: left antecubital; jl7 15:42 Follow up: Response: No adverse reaction; Nausea unchanged jl7 14:47 Drug: Famotidine IVP 20 mg IVP once; dilute with 10 mL 0.9% NaCl; give over 2 minutes jl7 Route: IVP; Site: left antecubital; 15:42 Follow up: Response: No adverse reaction jl7 15:42 Drug: Reglan (metoCLOPramide) 10 mg IVP once; over 1 to 2 minutes Route: IVP; Site: jl7 left antecubital; 19:00 Follow up: Response: No adverse reaction rg5 19:02 Drug: Aspirin PO Chewable Tablet 324 mg PO once; 81 mg tablets x 4 Route: PO; 7 19:20 Follow up: Response: No adverse reaction rg5 Medication: 12:45 VIS not applicable for this client. jl7 Outcome: 16:29 Decision to Hospitalize by Provider. ec2 19:38 Admitted to Med/surg accompanied by tech, via wheelchair, rg5 19:38 Condition: stable 19:38 Instructed on the need for admit, 20:12 Patient left the ED. rg5 Signatures: Dispatcher [employer] Kasandra Roberts RN RN iw Ace Sarmiento RN RN jl7 Estrellita Bartlett6 Hira Lai MD MD 2 Bg Dove RN RN rg5 Bethanie Espinoza al6 Corrections: (The following items were deleted from the chart) 12:20 12:19 [facility]: [facility]
--- NOTE | 2024-05-29 16:29 | EDPHYS ---
Physician Documentation [facility] Name: Alyson Mayfield Age: 54 yrs Sex: Female : 1970 Arrival Date: 05/29/2024 Time: 12:02 Bed 13 Private MD: ED Physician Hira Lai HPI: 05/29 13:11 This 54 yrs old Female presents to ER via Ambulatory with complaints of ec2 Vomiting/Diarrhea. 13:11 Patient arrives today for evaluation of upper abdominal pain along with nausea and ec2 vomiting with diarrhea. Patient reports generally feeling unwell, reports that she did have a decreased p.o. intake. Reports that she is dialysis dependent patient, did not undergo dialysis past week, states that she does not regularly make urine. Reports that she has seen GI and they prescribed her Pepcid and Flagyl. States that she is not taking his medications due to the vomiting.. Historical: - Allergies: 12:19 Bactrim; iw 12:19 Tramadol HCl; iw - PMHx: 12:19 CHF; Diabetes - NIDDM; Hypertension; Thyroid problem; End stage renal disease; on iw dialysis m,w,f; - Immunization history:: Adult Immunizations up to date. - Infectious Disease History:: Denies. - Social history:: Smoking status: Patient/guardian denies using tobacco, but has a distant history of tobacco abuse. ROS: 13:12 Constitutional: as per hpi ec2 Exam: 13:12 Constitutional: GEN: NAD Head: atraumatic Eyes: EOMI Ears: External ears are ec2 normal. CV: regular rate LUNGS: no respiratory distress ABD: non-distended, soft, tender in the upper abdomen, not guarding or rigid SKIN: no evidence of rashes MSK: no evidence of trauma Vital Signs: 12:16 BP 176 / 87; Pulse 79; Resp 18; Temp 98.2; Pulse Ox 97% ; Weight 54.43 kg; Height 5 ft. iw 2 in. ; Pain 9/10; 15:32 BP 172 / 87; Pulse 76; Resp 15; Pulse Ox 96% ; jl7 19:06 BP 161 / 81; Pulse 77; Resp 17; Pulse Ox 97% on R/A; Pain 3/10; rg5 12:16 Body Mass Index 21.95 (54.43 kg, 157.48 cm) iw 12:16 Pain Scale: Adult iw 19:06 Pain Scale: Adult rg5 MDM: 12:20 Medical Screening Exam initiated ec2 13:12 Data reviewed: vital signs, nurses notes. ED course: Patient arrives today for upper ec2 abdominal pain. Examination yields abdominal findings as above. Will obtain lab work and treat the patient symptoms. Possible gastritis, possible enteritis, possible UTI. Doubt obstruction. EKG obtained, dependently reviewed and interpreted by me, shows normal sinus rhythm, rate of 75, no acute ST segment elevations, intervals are nonactionable.. 16:28 ED course: CT imaging shows mild free pelvic ascites, right-sided pleural effusion. ec2 Given the uremia as well as the renal dysfunction and no dialysis for the past week, I believe patient will benefit from dialysis as well as further cardiac workup given the troponinemia. Discussed with hospitalist, pending admission.. 05/29 12:21 Order name: Basic Metabolic Panel; Complete Time: 14:38 ec2 05/29 12:21 Order name: CBC with Diff; Complete Time: 14:29 ec2 05/29 12:21 Order name: Troponin HS; Complete Time: 14:38 ec2 05/29 12:21 Order name: LFT's; Complete Time: 14:38 ec2 05/29 16:30 Order name: BNP ec2 05/29 17:24 Order name: T4 Free EDIN 05/29 17:24 Order name: Thyroid Stimulating Hormone EDIN 05/29 17:24 Order name: CBC with Automated Diff EDMS 05/29 17:24 Order name: CBC with Automated Diff EDMS 05/29 17:24 Order name: CBC with Automated Diff EDMS 05/29 17:24 Order name: CBC with Automated Diff EDMS 05/29 17:24 Order name: CBC with Automated Diff EDMS 05/29 17:24 Order name: CBC with Automated Diff EDMS 05/29 17:24 Order name: Comprehensive Metabolic Panel EDIN 05/29 17:24 Order name: Comprehensive Metabolic Panel EDMS 05/29 17:24 Order name: Comprehensive Metabolic Panel EDMS 05/29 17:24 Order name: Comprehensive Metabolic Panel EDMS 05/29 17:24 Order name: Comprehensive Metabolic Panel EDMS 05/29 17:24 Order name: Comprehensive Metabolic Panel EDIN 05/29 17:24 Order name: Lipid Profile EDIN 05/29 17:24 Order name: Lipid Profile EDMS 05/29 17:24 Order name: Magnesium EDMS 05/29 17:24 Order name: Magnesium EDMS 05/29 17:24 Order name: Magnesium EDMS 05/29 17:24 Order name: Magnesium EDMS 05/29 17:24 Order name: Magnesium EDMS 05/29 17:24 Order name: Magnesium EDMS 05/29 17:24 Order name: Phosphorus EDMS 05/29 17:24 Order name: Phosphorus EDMS 05/29 17:24 Order name: Phosphorus EDMS 05/29 17:24 Order name: Phosphorus EDMS 05/29 17:24 Order name: Phosphorus EDMS 05/29 17:24 Order name: Phosphorus EDMS 05/29 17:24 Order name: Troponin High Sensitivity EDMS 05/29 17:24 Order name: Troponin High Sensitivity EDMS 05/29 17:24 Order name: Troponin High Sensitivity EDMS 05/29 12:21 Order name: XRAY Chest (1 view); Complete Time: 16:04 ec2 05/29 14:43 Order name: CT Abd/Pelvis - Without Contrast; Complete Time: 16:27 ec2 05/29 17:24 Order name: Echo with Doppler IN 05/29 17:24 Order name: CONS Physician Consult IN 05/29 12:21 Order name: Cardiac monitoring; Complete Time: 13:27 ec2 05/29 12:21 Order name: EKG - Nurse/Tech; Complete Time: 13:27 ec2 05/29 12:21 Order name: IV Saline Lock; Complete Time: 13:44 ec2 05/29 12:21 Order name: Labs collected and sent; Complete Time: 13:44 ec2 05/29 12:21 Order name: O2 Per Protocol; Complete Time: 13:27 ec2 05/29 12:21 Order name: O2 Sat Monitoring; Complete Time: 13:28 ec2 Administered Medications: 14:47 Drug: Ondansetron IVP 4 mg IVP once; over 2 minutes Route: IVP; Site: left antecubital; jl7 15:42 Follow up: Response: No adverse reaction; Nausea unchanged jl7 14:47 Drug: Famotidine IVP 20 mg IVP once; dilute with 10 mL 0.9% NaCl; give over 2 minutes jl7 Route: IVP; Site: left antecubital; 15:42 Follow up: Response: No adverse reaction jl7 15:42 Drug: Reglan (metoCLOPramide) 10 mg IVP once; over 1 to 2 minutes Route: IVP; Site: [facility] left antecubital; 19:00 Follow up: Response: No adverse reaction rg5 19:02 Drug: Aspirin PO Chewable Tablet 324 mg PO once; 81 mg tablets x 4 Route: PO; 7 19:20 Follow up: Response: No adverse reaction rg5 Disposition Summary: 05/29/24 16:29 Hospitalization Ordered Notes: Hospitalization Status: Inpatient Admission ec2 Provider: Ulysses Salcedo ec2 Location: Telemetry/[facility]Sur (Inpatient) ec2 Condition: Stable ec2 Problem: new ec2 Symptoms: have improved ec2 Bed/Room Type: Standard ec2 Room Assignment: 228(05/29/24 17:36) kb3 Diagnosis - Volume Overload, Elevated Troponin, Uremia ec2 Forms: - Medication Reconciliation Form ec2 - SBAR form ec2 - Leadership Thank You Letter ec2 Signatures: Dispatcher [employer] EDKasandra Wilson, ROB RN iw Ace Sarmiento RN RN jl7 Celia Peoples RN RN kb3 Hira Lai MD MD ec2 Bg Dove RN rg5 Corrections: (The following items were deleted from the chart) 12:20 12:19 PMHx: Kidney stones; [facility] 12:21 12:21 BASIC METABOLIC PANEL+C.LAB.BRZ ordered. EDIN EDMS 12:21 12:21 CBC+H.LAB.BRZ ordered. EDIN EDMS 12:21 12:21 Troponin High Sensitivity+C.LAB.BRZ ordered. EDIN EDMS 12:21 12:21 HEPATIC FUNCTION+C.LAB.BRZ ordered. EDIN EDMS 12:21 12:21 Chest Single View+RAD.RAD.BRZ ordered. EDIN EDMS 13:12 13:11 Patient arrives today for evaluation of upper abdominal pain along with nausea ec2 and vomiting with diarrhea. Patient reports generally feeling unwell, reports that she did have a decreased p.o. intake. Reports that she is dialysis dependent patient, did not undergo dialysis past week, states that she does not regularly make urine.. ec2 17:36 16:29 ec2 kb3
--- NOTE | 2024-05-29 17:02 | P.HP ---
Certification for Inpatient Patient admitted to: Observation With expected LOS: <2 Midnights Patient will require the following post-hospital care: None Practitioner: I am a practitioner with admitting privileges, knowledge of patient current condition, hospital course, and medical plan of care. Services: Services provided to patient in accordance with Admission requirements found in Title 42 Section 412.3 of the Code of Federal Regulations Patient History Date of Service: 05/29/24 Reason for admission: fluid volume overload 2/2 ESRD History of Present Illness: Alyson Mayfield is a 54 year old female with pmhx CHF; Diabetes - NIDDM; Hypertension; Thyroid problem; End stage renal disease; on dialysis m,w,f; who presents to the ED with upper abdominal pain associated with N/V/D for one week which caused her to miss dialysis for one week. She reported to the ED that she had seen GI and was prescribed Pepcid and flagyl but unable to take the medica tions d/t vomiting. On evaluation, abdomen soft and tender on palpation, lung sounds clear, hemodynamically stable. Laboratory evaluation left shift neutrophils 84, sodium 132, anion gap 19.7, BUN/creatinine 71/11.1, GFR 4, serum glucose 267, troponin 97.1, alk phos 166. Chest xray reports "Stable findings suggesting congestive heart failure, with additional right basilar pleural-parenchymal opacity which could relate to an effusion or indicate underlying pneumonia." CT abd/pelvis reports "Right moderate pleural effusion and trace left effusion, partially improved since prior exam. Mild free pelvic ascites. No other acute findings." Alyson will be admitted to hospitalist service for further evaluation and treatment of fluid volume overload 2/2 ESRD. Allergies sulfamethoxazole [From Bactrim] Allergy (Verified 07/09/22 16:03) facial swelling trimethoprim [From Bactrim] Allergy (Verified 07/09/22 16:03) facial swelling Tramadol HCl Allergy (Uncoded 07/09/22 16:03) Hives/Rash Home Medications: Clopidogrel Bisulfate [Plavix*] 1 tab PO DAILY 07/19/22 Furosemide [Lasix] 80 mg PO BID #60 tab 02/19/23 Ferrous Sulfate [Ferrous Sulfate*] 325 mg PO M,W,F 07/14/23 Potassium Chloride 20 meq PO DAILY 30 Days #30 tab 07/22/23 Thyroid Tab [[place] Thyroid*] 60 mg PO DAILY@0600 tab 07/22/23 Aspirin [Aspirin EC 81 MG] 81 mg PO DAILY #180 tab 07/26/23 Atorvastatin Calcium [Lipitor] 40 mg PO BEDTIME #90 tab 07/26/23 Blood Sugar Diagnostic [Freestyle Lite Test Strip] 1 each TID #1 unit 07/26/23 Blood-Glucose Meter,Continuous [Freestyle Tea 3 [place]] 1 each MC DAILY #1 ea 07/26/23 Blood-Glucose Sensor [Freestyle Tea 3 Sensor] 1 each MC DAILY #1 ea 07/26/23 Cholecalciferol (Vitamin D3) [Vitamin D 1000 Iu Tab*] 4,000 unit PO DAILY #90 tab 07/26/23 Pantoprazole [Protonix Tab*] 20 mg PO M,W,F #60 tab 07/26/23 Insulin Glargine,Hum.rec.anlog [Semglee] 20 unit SQ DAILY #2 udpkt 08/19/23 carvediloL [Coreg*] 6.25 mg PO DAILY 09/01/23 Sevelamer Carbonate [Renvela*] 80 mg 10/19/23 Ondansetron [Zofran] 4 mg PO Q6H PRN 8 Days #30 tab 10/20/23 - Past Medical/Surgical History Diabetic: Yes -: Diabetes mellitus type II -: Hypothyroid -: Hypertension -: CHF -: ESRD -: chronic diarrhea -: Tubal ligation -: Cholecystectomy -: cardiac stent x 2 Psychosocial/ Personal History: 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 Has not been able to see her Physicians because she is unable to leave the house 2nd to diarrhea. States she has had every study there is but swallowing the camera - Family History Father -: Hypertension, Diabetes, Cancer Mother -: Diabetes, Cancer - Social History Smoking Status: Never smoker Alcohol use: No CD- Drugs: No Caffeine use: Yes Review of Systems Other: per HPI Physical Examination - Physical Exam General: Alert, Oriented x3, Other (uncomfortable) HEENT: Atraumatic, Normocephalic Neck: Supple, 2+ carotid pulse no bruit Respiratory: Clear to auscultation bilaterally, Normal air movement Cardiovascular: Normal pulses, Regular rate/rhythm Capillary refill: <2 Seconds Gastrointestinal: Normal bowel sounds, Soft and benign, Tenderness Musculoskeletal: No clubbing Integumentary: No rashes Neurological: Normal speech, Normal tone - Studies Laboratory Data (last 24 hrs) 05/29/24 05/29/24 13:40 13:40 WBC 6.80 Hgb 12.4 Hct 38.0 Plt Count 168 Sodium 132 L Potassium 4.7 BUN 71 H Creatinine 11.10 H Glucose 267 H Total Bilirubin 0.9 AST 31 ALT 22 Alkaline Phosphatase 166 H Assessment and Plan - Plan Assessment and plan CHF Severe pulmonary hypertension NSTEMI -mild elevated troponin, likely chronic -ECHO pending -Cardiology consulted, recommendations appreciated -Trend troponin -Continuous telemetry -Aspirin, statin daily Fluid volume overload secondary to ESRD on dialysis Uremia -Dr. Hunt consulted -Regular dialysis Tuesday -Fluid volume management per nephrology Abdominal pain associated with N/V/D Gastritis -stool cultures ordered -zosyn IV Pleural effusion vs pnuemonia -Chest xray reports "Stable findings suggesting congestive heart failure, with additional right basilar pleural-parenchymal opacity which could relate to an effusion or indicate underlying pneumonia." -suspected aspiration from vomiting -Zosyn IV -monitor oxygen level Diabetes - NIDDM -Accucheck with SSI Hypertension Thyroid problem -Continue home medications DVT PPx heparin Full code LOS 24 hour OBS Discharge Plan: Home Plan to discharge in: 24 Hours - Advance Directives Does patient have a Living Will: No Does patient have a Durable POA for Healthcare: No
--- NOTE | 2024-05-29 17:12 | P.PN ---
54-year-old patient with end-stage renal disease presented with nausea, vomiting, diarrhea and abdominal pain for the last 1 week, due to stomach virus she missed dialysis. No chest pain.. Chronic shortness of breath. Objective: General appearance: Alert and comfortable CVS: Normal S1 and S2 Lungs: Clear to auscultation bilaterally Abdomen: Soft, bowel sounds present, no tenderness Extremities: No lower extremity edema 54-year-old patient with ESRD, will consult nephrology for dialysis. Mild elevation of troponin, seems chronic, probably due to end-stage renal disease, will get echocardiogram. Possible pneumonia, will start Zosyn to cover for aspiration, this should cover for gastroenteritis as well. If diarrhea persists will get stool studies. Full Code. 4.
[2024-05-29] MEDS ORDERED: ONDANSETRON 4 MG (ODT) TAB PO PRN (17:17)
[2024-05-29] MEDS ORDERED: ACETAMINOPHEN 325 MG TABLET PO PRN (17:17)
[2024-05-29] MEDS ORDERED: D10W 125 ML IV PRN (17:33)
[2024-05-29] MEDS ORDERED: GLUCAGON 1 MG/VIAL IM PRN (17:33)
[2024-05-29] MEDS ORDERED: ASPIRIN 81 MG CHEWABLE TABLET ONE (17:52)
[2024-05-29] MEDS: ATORVASTATIN 40 MG TAB PO SCH (21:22)
[2024-05-29 23:52] VITALS: BMI 21.7
[2024-05-30] MEDS: PIPERACIL/TAZO 3.375 GM VIAL IV ONE (00:12)
[2024-05-30] MEDS: HEPARIN 5000 UNIT/ML 1 ML VIAL SQ SCH (00:23)
[2024-05-30] MEDS: PIPER TAZO 3.375 GM in NA CHLORIDE 0.9% 100 ML IV SCH (00:31)
[2024-05-30] MEDS: HYDRALAZINE HCL 20 MG/ML VIAL IV PRN (01:50)
[2024-05-30 05:00] LABS: Absolute Basophils 0.1 K/uL (0-0.5); Absolute Eosinophils 0.2 K/uL (0-0.5); Absolute Lymphocytes (CBC) 0.6 K/uL (0.7-4.9); Absolute Monocytes 0.5 K/uL (0.1-1.3); Absolute Neutrophil 4.6 K/uL (1.8-8.0); Basophils % 0.9 % (0-1.3); Eosinophils % 3.7 % (0-4.4); Hematocrit 33.7 % (36.0-45.0); Hemoglobin 11.3 g/dL (12.0-15.0); Lymphocytes % 9.6 % (15.3-44.8); MCH 28.9 pg (27.0-35.0); MCHC 33.5 g/dL (32.0-36.0); MCV 86.3 fL (80-100); MPV 9.5 fL (7.6-11.3); Neutrophils % 77.8 % (41.7-73.7); Platelets 145 thou/uL (152-406); RBC Red Blood Cell Count 3.91 M/uL (3.86-4.86); Red Cell Distribution Width 14.6 % (12.1-15.2)
[2024-05-30 06:22] LABS: ALT/SGPT 19 U/L (13-56); AST/SGOT 27 U/L (15-37); Albumin 2.8 g/dL (3.4-5.0); Albumin/Globulin Ratio 0.8 (1.1-1.8); Alkaline Phosphatase 132 U/L (45-117); Anion Gap 19.7 mEq/L (5.0-15.0); BUN Blood Urea Nitrogen 75 mg/dL (7-18); Bicarbonate 18 mEq/L (21-32); Bilirubin Total 0.8 mg/dL (0.2-1.0); Globulin 3.5 g/dL (2.3-3.5); Glomerular Filtration Rate 4 ml/min (=/>90); Glucose Level 231 mg/dL (74-106); HDL Cholesterol 22 mg/dL (40-60); LDL Cholesterol, Calculated 65 mg/dL (<130); LDL Cholesterol,Calc NonReport 65; Magnesium 2.4 mg/dL (1.6-2.4); Potassium 4.7 mEq/L (3.5-5.1); Protein, Total 6.3 g/dL (6.4-8.2); Sodium Level 133 mEq/L (136-145)
[2024-05-30 06:32] LABS: NT PRO-BNP > 175000 pg/mL (<125)
[2024-05-30 06:36] LABS: Phosphorus 9.3 mg/dL (2.5-4.9)
[2024-05-30 06:37] LABS: Troponin High Sensitivity 86.2 pg/mL (<58.9)
[2024-05-30] MEDS: INSULIN REGULAR (HUMAN) 100 UNIT/ML SQ SCH (07:30)
[2024-05-30] MEDS: ASPIRIN EC 81 MG TAB PO SCH (09:16)
[2024-05-30] MEDS: PANTOPRAZOLE 40MG TABLET PO SCH (09:16)
[2024-05-30] MEDS: carvediloL 6.25 MG TAB PO SCH (09:17)
[2024-05-30] MEDS: SEVELAMER CARBONATE 800 MG TABLET PO SCH (09:19)
--- NOTE | 2024-05-30 10:32 | P.CNS ---
Date of Consult: 05/30/24 Chief Complaint: fluid volume overload 2/2 ESRD History of Present Illness: Patient with PMH of CAD, PCI LAD, recent FFR RCA that was negative, presented with abdominal pain, diarrhea, she also has ESRD and missed dialysis for the last week due to diarrhea, abdominal pain, denies chest pain, no palpitations, no syncope. Allergies sulfamethoxazole [From Bactrim] Allergy (Verified 07/09/22 16:03) facial swelling trimethoprim [From Bactrim] Allergy (Verified 07/09/22 16:03) facial swelling Tramadol HCl Allergy (Uncoded 07/09/22 16:03) Hives/Rash Home medications list reviewed: Yes Home Medications: Clopidogrel Bisulfate [Plavix*] 1 tab PO DAILY 07/19/22 Furosemide [Lasix] 80 mg PO BID #60 tab 02/19/23 Ferrous Sulfate [Ferrous Sulfate*] 325 mg PO M,W,F 07/14/23 Potassium Chloride 20 meq PO DAILY 30 Days #30 tab 07/22/23 Thyroid Tab [[place] Thyroid*] 60 mg PO DAILY@0600 tab 07/22/23 Aspirin [Aspirin EC 81 MG] 81 mg PO DAILY #180 tab 07/26/23 Atorvastatin Calcium [Lipitor] 40 mg PO BEDTIME #90 tab 07/26/23 Blood Sugar Diagnostic [Freestyle Lite Test Strip] 1 each MC TID #1 unit 07/26/23 Blood-Glucose Meter,Continuous [Freestyle Tea 3 [place]] 1 each MC DAILY #1 ea 07/26/23 Blood-Glucose Sensor [Freestyle Tea 3 Sensor] 1 each MC DAILY #1 ea 07/26/23 Pantoprazole [Protonix Tab*] 20 mg PO M,W,F #60 tab 07/26/23 Insulin Glargine,Hum.rec.anlog [Semglee] 20 unit SQ DAILY #2 udpkt 08/19/23 carvediloL [Coreg*] 6.25 mg PO DAILY 09/01/23 Sevelamer Carbonate [Renvela*] 80 mg 10/19/23 Ondansetron [Zofran] 4 mg PO Q6H PRN 8 Days #30 tab 10/20/23 Amlodipine [Norvasc*] DAILY 05/29/24 Cholecalciferol (Vitamin D3) [Vitamin D 1000 Iu Tab*] 4,000 unit PO EVERY 7TH DAY 05/29/24 Benzonatate [Tessalon Perle*] PRN 05/30/24 Levothyroxine [Synthroid*] [id number] 05/30/24 - Past Medical/Surgical History Diabetic: Yes -: Diabetes mellitus type II -: Hypothyroid -: Hypertension -: CHF -: ESRD -: chronic diarrhea -: Tubal ligation -: Cholecystectomy -: cardiac stent x 2 Psychosocial/ Personal History: 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 Has not been able to see her Physicians because she is unable to leave the house 2nd to diarrhea. States she has had every study there is but swallowing the camera - Family History Father Medical History: Hypertension, Diabetes, Cancer Mother Medical History: Diabetes, Cancer - Social History Smoking Status: Former smoker Alcohol use: No CD- Drugs: No Caffeine use: Yes Place of Residence: Home Review of Systems 10-point ROS is otherwise unremarkable Physical Examination Temp Pulse Resp BP Pulse Ox 98.3 F 75 16 190/86 H 93 05/30/24 08:00 05/30/24 09:17 05/30/24 08:00 05/30/24 09:17 05/30/24 08:00 General: Alert, In no apparent distress HEENT: Atraumatic, PERRLA, Mucous membr. moist/pink, EOMI, Sclerae nonicteric Neck: Supple, 2+ carotid pulse no bruit, No LAD, Without JVD or thyroid abnormality Respiratory: Clear to auscultation bilaterally, Normal air movement Cardiovascular: Regular rate/rhythm, Normal S1 S2 Gastrointestinal: Normal bowel sounds, No tenderness Musculoskeletal: No tenderness Integumentary: No rashes Neurological: Normal gait, Normal speech, Normal tone, Normal affect Lymphatics: No axilla or inguinal lymphadenopathy Laboratory Data (last 24 hrs) 05/29/24 05/29/24 13:40 13:40 WBC 6.80 Hgb 12.4 Hct 38.0 Plt Count 168 Sodium 132 L Potassium 4.7 BUN 71 H Creatinine 11.10 H Glucose 267 H Total Bilirubin 0.9 AST 31 ALT 22 Alkaline Phosphatase 166 H - Problems (1) CAD (coronary artery disease) Current Visit: No Status: Acute Plan: patient not having any active chest pain, patient had a recent coronary angiogram that shown patent LAD stent with moderate RCA disease, FFR negative Troponin leak is mild, most likely type 2 MT from missing dialysis No further inpatient cardiac work up needed. continue ASA and Plavix Cardiology will sign off, please call with any questions. (2) Congestive heart failure Current Visit: No Status: Acute Plan: continue coreg continue volume adjustment through dialysis Qualifiers: Heart failure type: systolic
[2024-05-30 11:14] VITALS: O2SAT 93
--- NOTE | 2024-05-30 12:49 | CON ---
Date of Consultation: 05/30/2024 Reason For Consultation: Elevated BUN and creatinine, dialysis management. History Of Present Illness: This is a pleasant 54-year-old female, well known to me from the [facility] with significant past medical history of end-stage renal disease, on hemodialysis Tuesday, Tuesday , Tuesday at [facility], hypertension, hyperlipidemia, diabetes complicated with n europathy and nephropathy, CAD complicated with congestive heart failure. Patient came to the hospit al as she has gastroenteritis, missed dialysis for the whole week, found to have elevation in BUN and creatinine. For that reason, we have been consulted. The patient did not show any acidosis. The p atient has BUN above 70. No hyperkalemia. Has hyponatremia. Past Medical History: Include: 1. Hypertension. 2. Hyperlipidemia. 3. Diabetes. 4. CAD complicated with congestive heart failure. 5. End-stage renal disease. Allergies: TO SULFA, TRAMADOL, AND BACTRIM. Family History: Positive for diabetes and end-stage renal disease. Past Surgical History: Include tubal ligation, cholecystectomy, PTCA with stenting. Family History: Positive for end-stage renal disease, hypertension, diabetes, and CAD. Social History: Denied smoking. Denied drinking. Denied drugs abuse. Review of Systems: Head and Neck: No red eye. No ear pain. GI: Has nausea and vomiting and diarrhea. : No polyuria. No dysuria. No hematuria. [employer] TECH[employer]ICIAN: No vaginal discharge. Respiratory: No shortness of breath. Cardiovascular: No chest pain. Endocrine: No polydipsia. Skin: No rash. Neuro: Has neuropathy. Musculoskeletal: No joint pain. Physical Examination: General: When I saw the patient, patient lying in bed, comfortable, not on any distress. Vital Signs: Blood pressure 190/86, pulse of 75, afebrile. Chest: Clear to auscultation. Heart: S1, S2. Regular. Abdomen: Soft, nontender. Extremities: No edema. Neurologic: Alert. No focality Laboratory Data: For the patient, sodium 133, potassium 4.7, bicarb 18, BUN 75, creatinine 11.3, kate cium 8.5, hemoglobin 11.3. Current Medications: The patient on, it includes Plavix, heparin, carvedilol 6.25, amlodipine 5, hyd ralazine, Lasix, Renvela, levothyroxine. Assessment And Plan: 1. End-stage renal disease, normal volume, but has acidosis and hyponatremia, missed dialysis for the whole week. I am going to arrange for the dialysis today. If asymptomatic, the patient can be disc harged after dialysis today. 2. Hyponatremia secondary to renal failure and depletional, will be corrected with the dialysis. 3. Acidosis secondary to renal failure, will be corrected with the dialysis. 4. Anemia of chronic kidney disease. No need for JOSE. 5. Secondary hyperparathyroidism with severe hyperphosphatemia. We will resume Renvela. 6. Diabetes, as by Primary. 7. Gastroenteritis, as by Primary. MAREK/WOOD Voice ID: [id number] Report ID: [id number]
--- NOTE | 2024-05-30 13:02 | P.DS ---
Admission Date: 05/29/24 Discharge Date: 05/30/24 Disposition: ROUTINE DISCHARGE Discharge Condition: GOOD Reason for Admission: fluid volume overload 2/2 ESRD Brief History of Present Illness: Diagnosis Combined Systolic and Diastolic CHF Severe pulmonary hypertension NSTEMI Fluid volume overload secondary to ESRD on dialysis Uremia Abdominal pain associated with N/V/D Gastritis Pleural effusion vs pnuemonia Diabetes - NIDDM Hypertension Thyroid problem HPI 05/29/24 Alyson Mayfield is a 54 year old female with pmhx CHF; Diabetes - NIDDM; Hypertension; Thyroid problem; End stage renal disease; on dialysis m,w,f; who presents to the ED with upper abdominal pain associated with N/V/D for one week which caused her to miss dialysis for one week. She reported to the ED that she had seen GI and was prescribed Pepcid and flagyl but unable to take the medications d/t vomiting. On evaluation, abdomen soft and tender on palpation, lung sounds clear, hemodynamically stable. Laboratory evaluation left shift neutrophils 84, sodium 132, anion gap 19.7, BUN/creatinine 71/11.1, GFR 4, serum glucose 267, troponin 97.1, alk phos 166. Chest xray reports "Stable findings suggesting congestive heart failure, with additional right basilar pleural-parenchymal opacity which could relate to an effusion or indicate underlying pneumonia." CT abd/pelvis reports "Right moderate pleural effusion and trace left effusion, partially improved since prior exam. Mild free pelvic ascites. No other acute findings." Alyson will be admitted to hospitalist service for further evaluation and treatment of fluid volume overload 2/2 ESRD. Hospital Course: Alyson was admitted and treated for the following diagnoses Combined Systolic and Diastolic CHF Severe pulmonary hypertension NSTEMI Type 2 PR 2/2 missed dialysis -mild elevated troponin, likely chronic, Cardiology indicate type 2 PR d/t missed dialysis -ECHO pending -Cardiology consulted, no further cardiac work up needed and signed off -Troponin trended flat, topped at 97.1 -Continuous telemetry with no acute events noted -Aspirin, statin administered daily Fluid volume overload secondary to ESRD on dialysis Uremia -Dr. Hunt consulted- dialysis arranged for today 05/30/24 -Regular dialysis Tuesday -Fluid volume management per nephrology- dialysis 05/30/24 Abdominal pain associated with N/V/D Gastritis -stool cultures uncollected d/t no stool this admission -tolerated zosyn IV -Discharge on metronidazole 500 mg 3 times daily x 6 days Pleural effusion vs pnuemonia -Chest xray reports "Stable findings suggesting congestive heart failure, with additional right basilar pleural-parenchymal opacity which could relate to an effusion or indicate underlying pneumonia." -suspected aspiration from vomiting-Discharged on Ceftin to be taken after dialysis x 3 doase -tolerated Zosyn IV this admission Diabetes - NIDDM -Accucheck with SSI Hypertension Thyroid problem -Continue home medications On 05/30/24, Alyson was seen on morning rounds reporting feeling better, diarrhea has stopped, and tolerating PO diet. Dr. Nagy has evaluated and noted no further cardiac work up is necessary indicating the elevated troponin as type 2 PR 2/[address] Hunt was consulted and ordered dialysis today with discharge s/p dialysis. She has been cleared for discharge per Dr. Nagy and Dr. Hunt as well as the hospitalist team. Physical Exam General: Awake, alert, and Oriented x3 HEENT: Atraumatic, Normocephalic Neck: Supple, 2+ carotid pulse no bruit Respiratory: Clear BBS, Normal air movement, on RA Cardiovascular: Normal pulses, RRR, S1 S2 present Capillary refill: <2 Seconds Gastrointestinal: Normal bowel sounds, Soft and benign on palpation Musculoskeletal: No clubbing Integumentary: No rashes Neurological: Normal speech, Normal tone Vital Signs/Physical Exam: Temp Pulse Resp BP Pulse Ox 97.9 F 67 14 160/79 H 92 05/30/24 12:00 05/30/24 12:00 05/30/24 12:00 05/30/24 12:00 05/30/24 12:00 Laboratory Data at Discharge: WBC 5.90 thou/uL (4.3-10.9) 05/30/24 04:26 Hgb 11.3 g/dL (12.0-15.0) L D 05/30/24 04:26 Hct 33.7 % (36.0-45.0) L 05/30/24 04:26 Plt Count 145 thou/uL (152-406) L 05/30/24 04:26 Sodium 133 mEq/L (136-145) L 05/30/24 04:26 Potassium 4.7 mEq/L (3.5-5.1) 05/30/24 04:26 BUN 75 mg/dL (7-18) H 05/30/24 04:26 Creatinine 11.30 mg/dL (0.55-1.02) H 05/30/24 04:26 Glucose 231 mg/dL (74-106) H 05/30/24 04:26 Phosphorus 9.3 mg/dL (2.5-4.9) H* 05/30/24 04:26 Magnesium 2.4 mg/dL (1.6-2.4) 05/30/24 04:26 Total Bilirubin 0.8 mg/dL (0.2-1.0) 05/30/24 04:26 AST 27 U/L (15-37) 05/30/24 04:26 ALT 19 U/L (13-56) 05/30/24 04:26 Alkaline Phosphatase 132 U/L (45-117) H D 05/30/24 04:26 Triglycerides 163 mg/dL (<150) H 05/30/24 04:26 Cholesterol 120 mg/dL (<200) 05/30/24 04:26 HDL Cholesterol 22 mg/dL (40-60) L 05/30/24 04:26 Cholesterol/HDL Ratio 5.45 05/30/24 04:26 Home Medications: Clopidogrel Bisulfate [Plavix*] 1 tab PO DAILY 07/19/22 Furosemide [Lasix] 80 mg PO BID #60 tab 02/19/23 Ferrous Sulfate [Ferrous Sulfate*] 325 mg PO M,W,F 07/14/23 Potassium Chloride 20 meq PO DAILY 30 Days #30 tab 07/22/23 Thyroid Tab [[place]terbury Thyroid*] 60 mg PO DAILY@0600 tab 07/22/23 Aspirin [Aspirin EC 81 MG] 81 mg PO DAILY #180 tab 07/26/23 Atorvastatin Calcium [Lipitor] 40 mg PO BEDTIME #90 tab 07/26/23 Blood Sugar Diagnostic [Freestyle Lite Test Strip] 1 each MC TID #1 unit 07/26/23 Blood-Glucose Meter,Continuous [Freestyle Tea 3 Rousseau] 1 each MC DAILY #1 ea 07/26/23 Blood-Glucose Sensor [Freestyle Tea 3 Sensor] 1 each MC DAILY #1 ea 07/26/23 Pantoprazole [Protonix Tab*] 20 mg PO M,W,F #60 tab 07/26/23 Insulin Glargine,Hum.rec.anlog [Semglee] 20 unit SQ DAILY #2 udpkt 08/19/23 carvediloL [Coreg*] 6.25 mg PO DAILY 09/01/23 Sevelamer Carbonate [Renvela*] 80 mg 10/19/23 Ondansetron [Zofran (Odt)*] 4 mg PO Q6H PRN 8 Days #30 tab 10/20/23 Amlodipine [Norvasc*] DAILY 05/29/24 Cholecalciferol (Vitamin D3) [Vitamin D 1000 Iu Tab*] 4,000 unit PO EVERY 7TH DAY 05/29/24 Benzonatate [Tessalon Perle*] PRN 05/30/24 Cefdinir [Cefdinir*] 300 mg PO DAILY 3 Days #3 cap 05/30/24 Levothyroxine [Synthroid*] DMENR2HY 05/30/24 Metronidazole 500 mg PO TID 6 Days #18 tab 05/30/24 New Medications: Cefdinir [Cefdinir*] 300 mg PO DAILY 3 Days #3 cap Metronidazole 500 mg PO TID 6 Days #18 tab Physician Discharge Instructions: 1. Please call and schedule a follow-up appointment with your PCP in 3-5 days - Please follow-up with your PCP for medication refills/adjustments 2. Please call and schedule a follow-up appointment with Dr. Hunt in 3-5 days 3. Continue Renal diet 4. No activity restrictions 5. Return to the ED if symptoms worsen New medications Cefdinir 300 mg on dialysis days after dialysis x 3 doses-instructions on his medication may not be available on the label, please be advised to only take this after dialysis. Metronidazole 500 mg 3 times daily x [address] Nagy has evaluated you and is cleared you for discharge with no further cardiac workup. Please follow-up with this office for close continued monitoring Diet: Renal Activity: Ad sarita Followup: Susie Hunt MD [ACTIVE - CAN ADMIT] - Mata Nagy MD [ACTIVE - CAN ADMIT] - Wilmar Osuna MD [Primary Care Provider] -
[2024-05-30 13:05] LABS: Hepatitis B surface AG Interp. Nonreactive (Nonreactive)
[2024-05-30 13:06] LABS: HBsAG Nonreactive Report Report
[2024-05-30] MEDS: CEFDINIR 300 MG CAP PO SCH (16:00)
[2024-05-30] MEDS ORDERED: FUROSEMIDE 40 MG TABLET PO SCH (17:00)
[2024-05-30 17:12] VITALS: BP 162/84; TEMP 97.8
[2024-05-30] MEDS ORDERED: PIPER TAZO 3.375 GM in NA CHLORIDE 0.9% 100 ML IV SCH (21:00)
[2024-05-30] MEDS ORDERED: ATORVASTATIN 40 MG TAB PO SCH (21:00)
[2024-05-31] MEDS ORDERED: THYROID 30 MG TAB PO SCH (06:00)
[2024-05-31] MEDS ORDERED: LEVOTHYROXINE SOD 0.112 MG TAB PO SCH (06:00)
--- NOTE | 2024-05-31 08:43 | EKG ---
Test Date: 2024-05-29 Test Time: 13:08:20 Claims Adjuster: FRANKLIN MEASUREMENT RESULTS: Intervals: Rate: 75 UT: 146 QRSD: 78 QT: 432 QTc: 482 Staley: P: -72 UT: 146 QRS: -58 T: 241 INTERPRETIVE STATEMENTS: Unusual P axis, possible ectopic atrial rhythm Left axis deviation Septal infarct, age undetermined T wave abnormality, consider lateral ischemia Abnormal ECG Compared to ECG 10/19/2023 16:59:34 Left-axis deviation now present Myocardial infarct finding now present Sinus rhythm no longer present Prolonged QT interval no longer present T-wave abnormality still present Possible ischemia still present Electronically Signed On 05-31-24 08:37:46 CDT by Mata Nagy
[2024-05-31] MEDS ORDERED: AMLODIPINE 5 MG TAB PO SCH (09:00)
[2024-05-31] MEDS ORDERED: ASPIRIN EC 81 MG TAB PO SCH (09:00)
[2024-05-31] MEDS ORDERED: CLOPIDOGREL 75 MG TABLET PO SCH (09:00)
[2024-05-31] MEDS ORDERED: carvediloL 6.25 MG TAB PO SCH (09:00)
== END 2024-05-30 17:05 | disposition home or self-care (01) ==
LOC: ER 12:02 → ERHOLD 17:17 → 2ND 18:19
PROVIDERS: ADMIT Hospitalist; ATTEND Hospitalist
DX: E87.70 Fluid overload, unspecified (principal); E11.22 Type 2 diabetes mellitus with diabetic chronic kidney disease; I12.0 Hypertensive chronic kidney disease with stage 5 chronic kidney disease or end stage renal disease; N18.6 End stage renal disease; R10.9 Unspecified abdominal pain; R11.2 Nausea with vomiting, unspecified; R19.7 Diarrhea, unspecified; K29.70 Gastritis, unspecified, without bleeding; E07.9 Disorder of thyroid, unspecified; I25.10 Atherosclerotic heart disease of native coronary artery without angina pectoris; I50.42 Chronic combined systolic (congestive) and diastolic (congestive) heart failure; E87.1 Hypo-osmolality and hyponatremia; E87.20 Acidosis, unspecified; D63.1 Anemia in chronic kidney disease; E21.3 Hyperparathyroidism, unspecified; E83.39 Other disorders of phosphorus metabolism; K52.9 Noninfective gastroenteritis and colitis, unspecified; R79.89 Other specified abnormal findings of blood chemistry; I27.20 Pulmonary hypertension, unspecified; N19 Unspecified kidney failure; Z99.2 Dependence on renal dialysis; Z91.158 Patient's noncompliance with renal dialysis for other reason; Z88.2 Allergy status to sulfonamides; Z88.1 Allergy status to other antibiotic agents; Z88.5 Allergy status to narcotic agent
CPT/HCPCS: 36415; 71045; 74176; 80048; 80053; 80061; 80076; 82947; 83735; 83880; 84100; 84439; 84443; 84484; 85025; 87340; 90935; 93005; 96374; 96375; 99285; G0378; J0360; J1644; J1815; J2405; J2543; J2765

== ENCOUNTER 2025-01-01 13:07 | Emergency (ER) | payer OTHER ==
[2025-01-01 14:03] LABS: Absolute Lymphocytes (CBC) 0.7 K/uL (0.7-4.9); Hematocrit 38.3 % (36.0-45.0); Hemoglobin 12.2 g/dL (12.0-15.0); MCH 27.7 pg (27.0-35.0); MCHC 31.9 g/dL (32.0-36.0); MCV 87.0 fL (80-100); MPV 8.4 fL (7.6-11.3); Nucleated RBC Absolute Count 0.0 (0-0); Nucleated Red Blood Cells % 0.2 % (0-0); RBC Red Blood Cell Count 4.41 M/uL (3.86-4.86); White Blood Count 3.10 thou/uL (4.3-10.9)
[2025-01-01 14:12] LABS: PT Prothrombin Time 14.4 SECONDS (10-13.0); PTT, Activated Partial Thromb 30.4 SECONDS (27.2-37.4); Protime INR 1.28
[2025-01-01 14:40] LABS: AST/SGOT 13 U/L (15-37); Albumin 2.6 g/dL (3.4-5.0); Albumin/Globulin Ratio 0.6 (1.1-1.8); Alkaline Phosphatase 328 U/L (45-117); Anion Gap 13.1 mEq/L (5.0-15.0); BUN Blood Urea Nitrogen 18 mg/dL (7-18); Globulin 4.6 g/dL (2.3-3.5); Glucose Level 298 mg/dL (74-106); Potassium 3.1 mEq/L (3.5-5.1)
[2025-01-01 14:41] LABS: ALT/SGPT < 14 U/L (13-56); NT PRO-BNP > 175000 pg/mL (<125)
[2025-01-01 14:44] LABS: Troponin High Sensitivity 167.3 pg/mL (<58.9)
[2025-01-01] MEDS ORDERED: HYDROMORPHONE HCL 1 MG/ML INJ ONE (15:59)
--- NOTE | 2025-01-01 16:26 | RAD REPORT ---
EXAMINATION: CT ABDOMEN AND PELVIS WITH CONTRAST CLINICAL INDICATION: Abdominal pain TECHNIQUE: CT abdomen and pelvis was performed, after the administration of 100 cc Isovue-300.. Sagit leonora and coronal reconstructions were obtained. One or more of the following dose reduction techniques were used: Automated exposure control, adjustment of the mA and kV according to patient si ze, and iterative reconstruction. Unless otherwise specified, incidental findings do not require dedicated imaging follow-up. [id number]. Oral contrast was not given which limits evaluation of bowel and appendix. COMPARISON: .Unenhanced CT scan January 01, [address] FINDINGS: Moderate to large left and [id number] right pleural effusions with bibasilar atelectasis left greater than right. 3.5 cm triangular low-density area right lobe liver reaching the periphery. 3 cm low-density area spleen reaching the periphery. 6.2 cm fluid collection abuts the inferior later al aspect of the spleen. It contains air. Curvilinear air extends into the upper to mid aspect of the spleen measuring 3 cm. Multiple cystic pancreatic masses are present. Largest lies within the tail measuring 2 cm. Small to moderate amount of pneumoperitoneum within the abdomen. Pneumoperitoneum within the pelvis i s not present. 2.5 cm diverticulum extends from the junction of the third and fourth portions of the duodenum. Small to moderate amount of ascites. Adrenals and kidneys demonstrate no acute abnormality. No adnexal mass seen. Nonspecific thickening of the wall of large and small bowel. Prominent atherosclerosis. Extensive edema within the subcutaneous tissues. Air within the bladder : IMPRESSION: Pneumoperitoneum likely indicating bowel perforation. The site of perforation is uncertain. It may ar ise from the stomach. 3.5 cm low-density area within the liver suspicious for infarct. 3 cm low-density area spleen suspicious for infarct. 6.2 cm fluid collection containing air probably a subcapsular splenic abscess. Air extends into the s pleen. Cystic pancreatic masses may represent intraductal papillary mucinous neoplasm
--- NOTE | 2025-01-01 16:28 | RAD REPORT ---
EXAM: CT CHEST, ABDOMEN AND PELVIS WITHOUT CONTRAST CLINICAL INDICATION: Chest and abdominal pain TECHNIQUE: CT chest, abdomen and pelvis was performed, without IV contrast, as per department protoco l. Axial, sagittal and coronal reconstructions were obtained. One or more of the following dose reduction techniques were used: Automated exposure control, adjustment of the mA and/or kV according to the patient size, and/or iterative reconstruction. Unless otherwise specified, incidental findings do not require dedicated imaging follow-up. The lack of IV and oral contrast limits evaluation of the mediastinum, kelley, vessels, organs and shelli l. COMPARISON: September [address] CT chest. May [address] abdomen FINDINGS: Moderate to large left and [id number] right pleural effusions. Bibasilar atelectasis left greater than right. Mild chronic appearing interstitial lung opacities. No mediastinal or hilar lymphadenopathy seen. Cardiomegaly. No pericardial effusion. 3.5 cm triangular low-density area right lobe liver reaching the periphery. 3 cm low-density area spleen reaching the periphery. 6.2 cm fluid collection abuts the inferior later al aspect of the spleen. It contains air. Curvilinear air extends into the upper to mid aspect of the spleen measuring 3 cm. Multiple cystic pancreatic masses are present. Largest lies within the tail measuring 2 cm. Small to moderate amount of pneumoperitoneum within the abdomen. Pneumoperitoneum within the pelvis i s not present. 2.5 cm diverticulum extends from the junction of the third and fourth portions of the duodenum. Small to moderate amount of ascites. Adrenals and kidneys demonstrate no acute abnormality. No adnexal mass seen. Nonspecific thickening of the wall of large and small bowel. Prominent atherosclerosis. Air within the bladder. Extensive edema within the subcutaneous tissues : IMPRESSION: Pneumoperitoneum likely indicating bowel perforation. The site of perforation is uncertain. It may ar ise from the stomach. 3.5 cm low-density area within the liver suspicious for infarct. This is better seen on the enhanced CT scan same date 3 cm low-density area spleen suspicious for infarct. 6.2 cm fluid collection containing air probably a subcapsular splenic abscess. Air extends into the s pleen. A preliminary report was given to Mackenzie Renteria in the emergency room at approximately 3:16 PM January 01, 2025
--- NOTE | 2025-01-01 16:35 | ER ---
Nurse's Notes [facility] Name: Alyson Mayfield Age: 54 yrs Sex: Female : 1970 Arrival Date: 01/01/2025 Time: 13:07 Bed 13 Private MD: Diagnosis: Pneumoperitoneum secondary to suspected gastric perforation;Splenic abscess;Splenic infarct;Liver infarct;Dependence on renal dialysis;Severe sepsis with septic shock Presentation: 01/01 13:22 Chief complaint: EMS states: toned out for abdominal pain. Abdomen is distended and me1 tender. Uncontrollable diarrhea since this morning. c/o pain with inspiration. 88% on RA, applied 2 lpm via nc and sat increased to 98%. Hx: ESRD with HD, had dialysis yesterday. Coronavirus screen: Vaccine status: Patient reports being unvaccinated. Ebola Screen: No symptoms or risks identified at this time. Initial Sepsis Screen: Does the patient meet any 2 criteria? HR > 90 bpm. Does the patient have a suspected source of infection? No. Patient's initial sepsis screen is negative. Risk Assessment: Do you want to hurt yourself or someone else? Patient reports no desire to harm self or others. Onset of symptoms was December 31, 2024. 13:22 Method Of Arrival: EMS: [facility] [place] 13:22 Acuity: KLAUS 3 me1 Triage Assessment: 13:29 General: Appears uncomfortable, well groomed, well developed, well nourished, Behavior me1 is calm, cooperative, appropriate for age, Reports abdominal pain with uncontrollable diarrhea. Abdomen is distended. Pain 10/10. Pain: Complains of pain in abdomen Pain does not radiate. Pain currently is 10 out of 10 on a pain scale. Quality of pain is described as sharp, tender, Pain began 1 day ago. Is continuous. EENT: No signs and/or symptoms were reported regarding the EENT system. Neuro: Level of Consciousness is awake, alert, obeys commands, Oriented to person, place, time, situation, Appropriate for age. Cardiovascular: Patient's skin is warm and dry. Respiratory: Airway is patent Respiratory effort is even, unlabored, Respiratory pattern is regular, symmetrical. GI: Abdomen is distended, Reports lower abdominal pain, upper abdominal pain, diarrhea. : No signs and/or symptoms were reported regarding the genitourinary system. Derm: Skin is intact, is healthy with good turgor, Skin is normal. Musculoskeletal: Circulation, motion, and sensation intact. Range of motion: intact in all extremities. Historical: - Allergies: 13:29 Bactrim; me1 13:29 Tramadol HCl; me1 - PMHx: 13:29 CHF; Diabetes - NIDDM; End stage renal disease; on dialysis m; Hypertension; Thyroid me1 problem; - PSHx: 13:29 2 heart stents; Cholecystectomy; R arm dialysis port; R chest dialysis access; me1 - Immunization history:: Adult Immunizations up to date. - Infectious Disease History:: Denies. - Social history:: Smoking status: Patient denies any tobacco usage or history of. Screenin:37 [facility] ED Fall Risk Assessment (Adult) History of falling in the last 3 months, me1 including since admission No falls in past 3 months (0 pts) Confusion or Disorientation No (0 pts) Intoxicated or Sedated No (0 pts) Impaired Gait No (0 pts) Mobility Assist Device Used No (0 pt) Altered Elimination No (0 pt) Score/Fall Risk Level 0 - 2 = Low Risk Maintained a safe environment, Provided non-skid footwear, Hourly rounding (assess needs \T\ fall precautionary measures) done. Abuse screen: Denies threats or abuse. Nutritional screening: No deficits noted. Tuberculosis screening: No symptoms or risk factors identified. Assessment: 13:37 General: See triage assessment. me1 17:47 GI: Bowel sounds present X 4 quads. Abdomen is tender to palpation X 4 quads. me1 Vital Signs: 13:22 BP 148 / 78; Pulse 105; Resp 20; Temp 98.5; Pulse Ox 92% on 2 lpm NC; Weight 58.97 kg; me1 Height 5 ft. 2 in. ; Pain 10/10; 14:00 BP 147 / 64; Pulse 105; Resp 20; Pulse Ox 92% on 2 lpm NC; me1 15:00 BP 136 / 68; Pulse 105; Resp 24; Pulse Ox 93% on 2 lpm NC; me1 16:00 BP 125 / 71; Pulse 110; Resp 23; Pulse Ox 92% 2 lpm ; me1 17:00 BP 86 / 65; Pulse 101; Resp 24; Pulse Ox 92% on 4 lpm NC; me1 17:30 BP 92 / 48; Pulse 96; Resp 23; Pulse Ox 91% on 4 lpm NC; me1 18:00 BP 95 / 50; Pulse 95; Resp 22; Pulse Ox 92% on 4 lpm NC; me1 19:00 BP 88 / 51; Pulse 93; Resp 20; Pulse Ox 91% on 4 lpm NC; me1 19:42 BP 93 / 52; Pulse 93; Resp 20; Pulse Ox 91% on 4 lpm NC; me1 13:22 Body Mass Index 23.78 (58.97 kg, 157.48 cm) me1 13:22 Pain Scale: Adult fl1 ED Course: 13:14 Patient arrived in ED. sb4 13:14 Mackenzie Renteria PA-C is PHCP. sb4 13:14 Yoni Nogueira DO is Attending Physician. sb4 13:18 Loree Daigle, ROB is Primary Nurse. me1 13:29 Triage completed. me1 13:29 Arm band placed on Patient placed in an exam room. me1 13:37 Patient has correct armband on for positive identification. Bed in low position. Call me1 light in reach. Side rails up X2. Provided Education on: POC. Verbalized understanding.. Client placed on continuous cardiac and pulse oximetry monitoring. NIBP monitoring applied. senior java programmer on. Pulse ox on. NIBP on. 13:37 No provider procedures requiring assistance completed. me1 13:54 Missed attempt(s): 22 gauge in left antecubital area. me1 14:09 Chest Abd Pelvis Wo Con In Process Unspecified. EDMS 14:58 Inserted saline lock: 24 gauge in left hand, using aseptic technique. Blood collected. me1 Flushed with 10 mL NS. 15:00 First set of blood cultures drawn by me. tm3 15:51 Abdomen In Process Unspecified. EDMS 16:45 initiated transfer to [facility]. bd 17:48 Patient transferred, IV remains in place. me1 Administered Medications: 15:00 CANCELLED (Physician Discretion): morphineor iv 4 mg IVP once over 4 mins sb4 15:00 CANCELLED (Physician Discretion): ondansetron 4 mg IVP once; over 2 minutes sb4 15:02 Drug: Droperidol IVP 2.5 mg IVP once Route: IVP; Site: left hand; me1 15:52 Follow up: Response: No adverse reaction; Pain is unchanged, physician notified me1 16:08 Drug: HYDROmorphone IVP 1 mg IVP once Route: IVP; Site: left hand; me1 17:08 Follow up: Response: No adverse reaction me1 17:07 Drug: Piperacillin-Tazobactam IVPB 2.25 grams IVPB once over 60 mins; (mix in NS 100 me1 mL) Route: IVPB; Infused Over: 60 mins; Site: left hand; 17:55 Follow up: Response: No adverse reaction; IV Status: Completed infusion me1 17:08 Drug: NS 0.9% IV 250 ml IV at bolus once; to be given as a bolus over 30 minutes Route: me1 IV; Rate: bolus; Site: left hand; 17:55 Follow up: Response: No adverse reaction; IV Status: Completed infusion; IV Intake: me1 250ml 17:55 Drug: metroNIDAZOLE IVPB 500 mg 100 ml IVPB at 200 ml/hr once over 30 mins Volume: 100 me1 ml; Route: IVPB; Rate: 200 ml/hr; Infused Over: 30 mins; Site: left wrist; 19:43 Follow up: Response: No adverse reaction; IV Status: Completed infusion me1 Medication: 13:37 VIS not applicable for this client. me1 Intake: 17:55 IV: 250ml; Total: 250ml. me1 Outcome: 16:34 ER care complete, transfer ordered by . sb4 17:48 Transferred by ground EMS to [facility], Note: Report called to me1 ROB Hendrickson at [facility] [address] [place]. Patient is going to room 7. 17:48 Condition: stable 17:48 Instructed on the need for transfer, 19:52 Patient left the ED. me1 Signatures: Dispatcher [employer] EDMS Rachel Mitchell Toni 3 Mackenzie Renteria PA-C PA-C sb4 Loree Daigle RN RN me1 Corrections: (The following items were deleted from the chart) 17:41 17:00 BP 86 / 65; Pulse 10bpm; Resp 1bpm; Pulse Ox 92% 4 lpm Nasal Cannula; Temp 24F; me1 me1
--- NOTE | 2025-01-01 16:35 | EDPHYS ---
Physician Documentation [facility] Name: Alyson Mayfield Age: 54 yrs Sex: Female : 1970 Arrival Date: 01/01/2025 Time: 13:07 Bed 13 Private MD: ED Physician Yoni Nogueira HPI: 01/01 17:47 This 54 yrs old Female presents to ER via EMS with complaints of Abdominal sb4 Pain. 17:47 Patient complains of abdominal pain and bloody diarrhea that began this morning. Is a sb4 dialysis patient, was last dialyzed yesterday. Denies any nausea or vomiting. No fever or chills. Historical: - Allergies: 13:29 Bactrim; me1 13:29 Tramadol HCl; me1 - PMHx: 13:29 CHF; Diabetes - NIDDM; End stage renal disease; on dialysis m; Hypertension; Thyroid me1 problem; - PSHx: 13:29 2 heart stents; Cholecystectomy; R arm dialysis port; R chest dialysis access; me1 - Immunization history:: Adult Immunizations up to date. - Infectious Disease History:: Denies. - Social history:: Smoking status: Patient denies any tobacco usage or history of. ROS: 17:47 Constitutional: Negative for fever, chills, and weight loss, sb4 17:47 Abdomen/GI: Positive for abdominal pain, diarrhea, rectal pain, 17:47 All other systems are negative, Exam: 17:47 Head/Face: Normocephalic, atraumatic. Eyes: Extra-ocular motions intact. Periorbital sb4 areas with no swelling, redness, or edema. ENT: Mucous membranes moist. Cardiovascular: Regular rate and rhythm with a normal S1 and S2. Respiratory: No increased work of breathing, no retractions or nasal flaring. Skin: Warm, dry with normal turgor. Normal color with no rashes, no lesions, and no evidence of cellulitis. 17:47 Constitutional: The patient appears alert, awake, in obvious pain, restless, uncomfortable, 17:47 Abdomen/GI: Inspection: abdomen appears normal, Palpation: moderate abdominal tenderness, in all quadrants, Vital Signs: 13:22 BP 148 / 78; Pulse 105; Resp 20; Temp 98.5; Pulse Ox 92% on 2 lpm NC; Weight 58.97 kg; me1 Height 5 ft. 2 in. ; Pain 10/10; 14:00 BP 147 / 64; Pulse 105; Resp 20; Pulse Ox 92% on 2 lpm NC; me1 15:00 BP 136 / 68; Pulse 105; Resp 24; Pulse Ox 93% on 2 lpm NC; me1 16:00 BP 125 / 71; Pulse 110; Resp 23; Pulse Ox 92% 2 lpm ; me1 17:00 BP 86 / 65; Pulse 101; Resp 24; Pulse Ox 92% on 4 lpm NC; me1 17:30 BP 92 / 48; Pulse 96; Resp 23; Pulse Ox 91% on 4 lpm NC; me1 18:00 BP 95 / 50; Pulse 95; Resp 22; Pulse Ox 92% on 4 lpm NC; me1 19:00 BP 88 / 51; Pulse 93; Resp 20; Pulse Ox 91% on 4 lpm NC; me1 19:42 BP 93 / 52; Pulse 93; Resp 20; Pulse Ox 91% on 4 lpm NC; me1 13:22 Body Mass Index 23.78 (58.97 kg, 157.48 cm) me1 13:22 Pain Scale: Adult me1 MDM: 13:14 Medical Screening Exam initiated sb4 17:06 Post IV fluid administration reassessment for Sepsis: Client not prescribed the 30 sb4 mL/kg IVF due to: concern related to renal failure. Amount of IVF prescribed: 250 Sepsis focused reassessment complete. 17:11 Management of patient was discussed with the following: Business Rules Analyst: Spoke with both ER sb4 physician and hospitalist at [facility], who accept patient for transfer. Management of patient was discussed with the following: Business Rules Analyst: Dr. Aguillon, general surgery, recommends transfer for higher level of care. Care significantly affected by the following chronic conditions: Diabetes, Hypertension, Congestive Heart Failure, Chronic Kidney Disease. Counseling: I had a detailed discussion with the patient and/or guardian regarding the historical points, exam findings, and any diagnostic results supporting the discharge/admit diagnosis, the presence of at least one elevated blood pressure reading (>120/80) during this emergency department visit, lab results, radiology results, the need to transfer to another facility, for higher level of care, [facility] does not immediately have the required specialist. 17:48 Differential diagnosis: bowel obstruction, diverticulitis, GI Bleed, Mesenteric sb4 ischemia or infarction, non-specific abd pain, Peptic Ulcer Disease. Data reviewed: vital signs, nurses notes, EMS record, lab test result(s), EKG, radiologic studies, CT scan. Management of patient was discussed with the following: Radiologist, requests CT scan with IV contrast due to concern of pneumoperitoneum with free air. 01/01 13:43 Order name: BNP; Complete Time: 14:44 sb4 01/01 13:43 Order name: Blood Culture Adult (2) sb4 01/01 13:43 Order name: CBC with Diff; Complete Time: 14:09 sb4 01/01 13:43 Order name: CMP; Complete Time: 14:44 sb4 01/01 13:43 Order name: Lactate w/ 2H reflex if indic.; Complete Time: 15:43 sb4 01/01 13:43 Order name: Protime (+inr); Complete Time: 14:13 sb4 01/01 13:43 Order name: Ptt, Activated; Complete Time: 14:13 sb4 01/01 13:43 Order name: Troponin HS; Complete Time: 14:44 sb4 01/01 14:50 Order name: Glucose, Ancillary Testing; Complete Time: 14:54 EDMS 01/01 15:41 Order name: Ghost Lactate-NO COLLECT Timer; Complete Time: 17:40 EDMS 01/01 14:09 Order name: Chest Abd Pelvis Wo Con; Complete Time: 16:30 EDMS 01/01 15:50 Order name: Abdomen ; Complete Time: 16:27 EDMS 01/01 13:43 Order name: Accucheck; Complete Time: 14:39 sb4 01/01 13:43 Order name: Cardiac monitoring; Complete Time: 14:33 sb4 01/01 13:43 Order name: EKG - Nurse/Tech; Complete Time: 14:33 sb4 01/01 13:43 Order name: IV Saline Lock - Large Bore; Complete Time: 14:57 sb4 01/01 13:43 Order name: Labs collected and sent; Complete Time: 14:57 sb4 01/01 13:43 Order name: O2 Per Protocol; Complete Time: 14:33 sb4 01/01 13:43 Order name: O2 Sat Monitoring; Complete Time: 14:33 sb4 01/01 13:43 Order name: Vital Signs; Complete Time: 14:35 sb4 01/01 16:31 Order name: NPO; Complete Time: 16:34 sb4 EC:36 Rate is 106 beats/min. Rhythm is regular, Sinus tachycardia. DC interval is normal at sb4 138 msec. QRS interval is normal at 78 msec. QT interval is normal at 352 msec. No Q waves. Clinical impression: Sinus tachycardia. Interpreted by me. Reviewed by me. Administered Medications: 15:00 CANCELLED (Physician Discretion): morphineor iv 4 mg IVP once over 4 mins sb4 15:00 CANCELLED (Physician Discretion): ondansetron 4 mg IVP once; over 2 minutes sb4 15:02 Drug: Droperidol IVP 2.5 mg IVP once Route: IVP; Site: left hand; me1 15:52 Follow up: Response: No adverse reaction; Pain is unchanged, physician notified me1 16:08 Drug: HYDROmorphone IVP 1 mg IVP once Route: IVP; Site: left hand; me1 17:08 Follow up: Response: No adverse reaction me1 17:07 Drug: Piperacillin-Tazobactam IVPB 2.25 grams IVPB once over 60 mins; (mix in NS 100 me1 mL) Route: IVPB; Infused Over: 60 mins; Site: left hand; 17:55 Follow up: Response: No adverse reaction; IV Status: Completed infusion me1 17:08 Drug: NS 0.9% IV 250 ml IV at bolus once; to be given as a bolus over 30 minutes Route: me1 IV; Rate: bolus; Site: left hand; 17:55 Follow up: Response: No adverse reaction; IV Status: Completed infusion; IV Intake: me1 250ml 17:55 Drug: metroNIDAZOLE IVPB 500 mg 100 ml IVPB at 200 ml/hr once over 30 mins Volume: 100 me1 ml; Route: IVPB; Rate: 200 ml/hr; Infused Over: 30 mins; Site: left wrist; 19:43 Follow up: Response: No adverse reaction; IV Status: Completed infusion me1 Disposition: 19:19 I was immediately available on-site in the Emergency Department for consultation in the ms3 care of the patient. Disposition Summary: 01/01/25 16:34 Transfer Ordered Notes: Transfer Location: [facility] sb4 Reason: Higher level of care sb4 Condition: Serious sb4 Problem: new sb4 Symptoms: are unchanged sb4 Accepting Physician: patient financial rep, surg(01/01/25 19:52) me1 Diagnosis - Pneumoperitoneum secondary to suspected gastric perforation sb4 - Splenic abscess sb4 - Splenic infarct sb4 - Liver infarct sb4 - Dependence on renal dialysis sb4 - Severe sepsis with septic shock sb4 Forms: - Medication Reconciliation Form sb4 - SBAR form sb4 Critical care time excluding procedures: 17:12 Critical care time: Bedside Care: 15 minutes, Consultation: 20 minutes. Total time: 35 sb4 minutes Signatures: Dispatcher [employer] EDMS Yoni Nogueira DO DO ms3 Mackenzie Renteria PA-C PA-C sb4 Loree Daigle RN RN me1 Corrections: (The following items were deleted from the chart) 13:44 13:44 PROBNP+C.LAB.BRZ ordered. EDMS EDMS 13:44 13:44 BLOOD CULTURE*+BA.LAB.BRZ ordered. EDMS EDMS 13:44 13:44 CBC+H.LAB.BRZ ordered. EDMS EDMS 13:44 13:44 COMPREHENSIVE METABOLIC PANEL+C.LAB.BRZ ordered. EDMS EDMS 13:44 13:44 LACTATE+C.LAB.BRZ ordered. EDMS EDMS 13:44 13:44 PROTIME (+INR)+COAG.LAB.BRZ ordered. EDMS EDMS 13:44 13:44 PTT, ACTIVATED+COAG.LAB.BRZ ordered. EDMS EDMS 13:44 13:44 Troponin High Sensitivity+C.LAB.BRZ ordered. EDMS EDMS 13:44 13:44 Abdomen Pelvis Wo Con+CT.RAD.BRZ ordered. EDMS EDMS 15:00 13:43 morphine IVP or IV 4 mg IVP once over 4 mins ordered. sb4 sb4 15:00 13:43 Ondansetron IVP 4 mg IVP once; over 2 minutes ordered. sb4 sb4 15:26 15:25 Abdomen W/ Con+CT.RAD.BRZ ordered. EDMS EDMS 15:48 15:47 Chest Abdomen Pelvis W Cont ordered. EDMS EDMS 16:35 16:34 patient financial rep, surg sb4 sb4 17:06 16:35 patient financial rep, surg sb4 sb4 19:38 17:06 patient financial rep, surg sb4 sb4 19:38 17:06 Severe sepsis without septic shock sb4 sb4 19:52 19:38 patient financial rep, surg sb4 me1
[2025-01-01] MEDS ORDERED: PIPERACIL/TAZO 2.25 GM VIAL IV ONE (16:49)
[2025-01-01] MEDS ORDERED: NA CHLORIDE 0.9% 100 ML ONE (16:49)
[2025-01-01] MEDS ORDERED: NA CHLORIDE 0.9% 250 ML ONE (17:04)
[2025-01-01] MEDS ORDERED: METRONIDAZOLE 500mg IVPB 500 MG/100 ML BAG IV ONE (17:05)
[2025-01-02 02:26] VITALS: TEMP 98.5
[2025-01-02 02:44] VITALS: O2SAT 91
[2025-01-02 02:46] VITALS: BP 93/52
== END 2025-01-01 19:52 | disposition short-term general hospital (02) ==
LOC: ER 13:07
DX: D73.3 Abscess of spleen (principal); D73.5 Infarction of spleen; K76.3 Infarction of liver; R65.21 Severe sepsis with septic shock; K66.8 Other specified disorders of peritoneum; E11.22 Type 2 diabetes mellitus with diabetic chronic kidney disease; I13.2 Hypertensive heart and chronic kidney disease with heart failure and with stage 5 chronic kidney disease, or end stage renal disease; I50.9 Heart failure, unspecified; N18.6 End stage renal disease; Z99.2 Dependence on renal dialysis; Z95.818 Presence of other cardiac implants and grafts
CPT/HCPCS: 93005; 87040 ×2; 85025; 36415; 87205; 85610; 82947; 83605; 85730; 87077; 87186; 84484; 80053; 83880; 71250; 74176; 74177; 99285; Q9967; J2543; J1171; J1790; J7050